=== PATIENT | female | born 1995 | race Caucasian/White ===

== ENCOUNTER 2019-07-19 19:51 | Observation (INO) | payer BC, MEDICAID, SELFPAY ==
[2019-07-19 19:52] VITALS: BP 95/55; PULSE 67; RESP 18; TEMP 36.8; O2SAT 100; BMI 28.1
--- NOTE | 2019-07-19 21:17 | RAD_ITS ---
STUDY: X-RAY - LUMBAR SPINE REASON FOR EXAM: Female, 23 years old. Severe back pain 5 hours ago after bending over. TECHNIQUE: 3 view(s) of the lumbar spine were obtained. COMPARISON: Lumbar spine, July 27, 2015. MRI of the lumbar spine, July 28, 2015. FINDINGS: Normal lumbar lordosis. There is a very minimal levoscoliosis. There is a normal alignment of the vertebrae. There is a congenital abnormality of L5 with spina bifida occulta. There is maintenance of the vertebral axial heights. Normal disc space heights. There is no evidence of acute fracture or loss of vertebral axial height. The soft tissue structures are unremarkable. RAD/Lumbar Spine 2 or 3 Views IMPRESSION: No major interval change when compared to the previous examination Electronically Signed: Jeremy Eckert DO at 23:39 EST Tel [phone], Service support ,
[2019-07-19] MEDS: Orphenadrine 60 MG/2 ML Ampul IM (21:32)
[2019-07-19] MEDS: Ketorolac 60 MG/2 ML Vial IM (21:32)
[2019-07-19] MEDS: HYDROmorphone 1 MG/ML Syringe SC (23:00)
[2019-07-19 23:49] VITALS: BP 110/71; PULSE 68; RESP 15
[2019-07-20] MEDS: HYDROmorphone 1 MG/ML Syringe SC (00:15)
--- NOTE | 2019-07-20 00:24 | ED.DCSUM_ITS ---
- ER Visit Summary Date of Service: 07/20/19 Chief Complaint: Back pain History of Present Illness: The patient is a 23 F with low back pain. The patient bent to pick something up and then stood up. She felt a pop and had severe pain in her lower back. Worse with movement. Denies weakness, numbness, or other associated symptoms. No GI or symptoms or issues. No fever or systemic issues. No other trauma. She had a MRI in 2016 that showed L3-L4 central disc extrusion and a small L4-L5 central bulging disc without displacement of the nerve root sleeve. No history of back surgery. Physical Examination: Afebrile and vital signs unremarkable. Abdomen is soft and nontender. Skin appears unremarkable. She does have lower lumbar spine tenderness to palpation. Straight leg raise negative. Symmetric strength and sensation. No saddle anesthesias. Pulses strong and equal. Test Results: X-ray was unremarkable. No interval change. Emergency Department Course and Treatment: Patient was initially treated with Norflex and Toradol. She had no improvement in her symptoms. X-rays were unremarkable. No interval change. Because she had not improved, she received a dose of Dilaudid. On further reevaluation, she was still having pain, but did appear to be slightly more comfortable objectively. She however was unable to ambulate even with assistance. No other new or worsening symptoms. Given that the patient cannot ambulate and is having continued pain, she received an additional dose of pain medicine. Contacted the hospitalist to admit for further care. Treatment Plan: As above Disposition: Observation [facility] Impression: 1. Intractable back pain This note was generated with [email or web address] dictation software. It may contain incorrect words, spelling, and punctuation that were not noted in review of the chart prior to signing ED Disposition - Plan for ED Patient: Referrals: Care Physician,No Primary [Primary Care Provider] -
--- NOTE | 2019-07-20 00:44 | PCM.HP.STD ---
Problem List (1) Lower back pain Status: Acute History of Present Illness Date of Admission: 07/20/19 Chief Complaint: Low back pain. The patient is a 23 year old F patient with no significant past medical history presented to the emergency room because of low back pain. Patient states that she bent over to pick something from the floor, stood up and she felt a pop in her lower back and started having severe back pain. Pain is in the lower back, middle of the lower back, sharp pain, 10 out of 10 in severity, radiates to both sides of the lower back, aggravated by any type of movement including movement of her upper extremities and lower extremities, no relieving factors and no associated symptoms. She denied any trauma or mechanical fall. She denied numbness or tingling in her legs. She denied stool or urine incontinence. She denied focal leg weakness. She had a history of back pain and back in 2015, she had MRI lumbar spine that revealed, incidental tiny linear syrinx, L3-L4 central disc extrusion, no displacement and also revealed small L4-L5 central disc bulging without displacement. At that time, there was a concern that patient may have Budd-Chiari malformation for which she had thoracic spine MRI and cervical spine MRI. Thoracic spine MRI revealed isolated tiny linear syrinx versus normal ventriculus terminalis. Cervical spine MRI was unremarkable. Today in the emergency department, her vital signs are stable. X-ray of the lumbar spine revealed congenital abnormality of L5 with spina bifida occulta and no major interval change compared to previous examination. This finding was not mentioned on the MRI that was done on July 2015. Patient is being admitted for intractable low back pain for evaluation. 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 Paternal History Items: Diabetes, Renal Disease, - - father is on dialysis. Review of Systems Constitutional: Denies: Anorexia, Chills, Fever, Weakness Eyes: Denies: Blurred vision, Double vision, Drainage HEENT: Denies: Difficulty Hearing, Ear Pain, Eye Pain, Nasal bleeding, Post Nasal Drip, Sore Throat Cardiovascular: Denies: Chest Pain, Chest Pressure, Chest Tightness, Edema, Palpitations, Syncope Respiratory: Denies: Cough, Pleuritic Pain, Shortness of Breath, Sputum production, Wheezing Gastrointestinal: Denies: Abdominal Pain, Constipation, Diarrhea, Nausea, Vomiting Genitourinary: Denies: Dysuria, Frequency Musculoskeletal: Reports: Back Pain. Denies: Arm Pain, Foot Pain Skin: Denies: Dryness, Rash Neurological: Denies: Balance problems, Blurred vision, Double vision, Change in Speech Psychiatric: Denies: Anxiety, Depression Endocrine: Denies: Change in Body Habitus, Polydipsia, Polyuria VTE Information - Inpt Only VTE Present on Admission: No VTE Mechan Device Prophylaxis: None VTE Pharm Prophylaxis ordered?: No - Physical Exam Vitals/I&O's: Vital Signs Temp Pulse Resp BP Pulse Ox 98.2 F 68 15 110/71 100 07/19/19 19:52 07/19/19 23:49 07/19/19 23:49 07/19/19 23:49 07/19/19 19:52 Oxygen Delivery Method Room Air Weight: 180 lb Body Mass Index (BMI) 28.1 General: Alert, Oriented x3, Cooperative, No apparent distress HEENT: Atraumatic, PERRLA, EOMI, Normocephalic Oral: Moist Mucosa, No Gingival or Mucosal Lesions/ Ulcerations Neck: Supple, No JVD, Negative Carotid Bruits, Trachea Midline, Thyroid Normal Size and Texture Lungs: Clear to auscultation, Normal air movement, No rhonchi, No wheeze, No rales Cardiovascular: Regular rate, Regular Rhythm, Normal S1, Normal S2, No murmurs Abdomen: Bowel Sounds Present, Soft, Non Tender, Non-Distended, No Hepato-splenomegaly Extremities: No clubbing, No cyanosis, No edema Skin: No rashes, No breakdown Lymphatic: No Cervical, Supraclavicular, or Inguinal Adenopathy Neurological: Cranial nerves II-XII grossly intact, Motor Exam 5/5 strength throughout, Sensory exam intact to light touch and pain Psych/Mental Status: Normal Affect, Appropriate, Alert and oriented to time, place, person, mood and affect Clinical Impression(s) from Imaging Studies Lumbar Spine X-Ray 07/19/19 21:17 IMPRESSION: No major interval change when compared to the previous examination Electronically Signed: Jeremy Eckert DO at 23:39 EST Tel [phone], Service support , Assessment/Plan All Active Problems Lower back pain (Acute) This is a 23 years old female patient presented to the emergency room because of sudden onset low back pain and she is being admitted for evaluation. #1 intractable low back pain: In context of history of back pain for the past for the last 5 years with occasional acute flareups, had MRIs of her lumbar, thoracic and cervical spine as mentioned above and she was found to have linear syrinx. Today, x-ray of the lumbar spine revealed spina bifida occulta of L5 and it was mentioned that there was no major interval change compared to previous imaging study but on the MRI report that was done on July, did not mention about this spina bifida occulta. Patient has no focal deficit, sensory exam is intact and normal, no motor weakness. No stool or urine incontinence, no perineal anesthesia. No indication to perform blood work. Plan: Admit [facility] floor for observation, ambulate as tolerated, MRI lumbar spine without contrast, IV morphine PRN, OxyIR PRN for pain, gentle IV fluid for hydration, IV antiemetics, Flexeril as needed, PT OT evaluation and treatment. #2 DVT prophylaxis: Low risk patient, no prophylaxis indicated. This note was generated with [employer] dictation software. It may contain incorrect words, spelling, and punctuation that were not noted in checking the note before signing. Code Visit OBSV E&M: 16931 Initial observation care L3
--- NOTE | 2019-07-20 01:09 | MRI_ITS ---
STUDY: MRI LUMBAR SPINE WITHOUT CONTRAST REASON FOR EXAM: Female, 23 years old. back pain, spina bifida occulta on xray not mentioned on prev mri in 2016 TECHNIQUE: Standardized fat and water weighted pulse sequences were obtained in the sagittal and axial planes. COMPARISON: July 28, 2015 FINDINGS: No evidence for acute fracture or subluxation. Spina bifida occulta noted at L5-S1 T12-L1: Normal endplates. Normal disc height, hydration and morphology. Normal bilateral facet joints. Normal central canal and bilateral lateral recesses. Normal bilateral intervertebral neural foramina. Normal lumbar lordosis. There is mild levo scoliosis. Conus medullaris terminates at T12-L1 There is a small central syrinx noted at approximately T12 L1-2: Normal endplates. Normal disc height, hydration and morphology. Normal bilateral facet joints. Normal central canal and bilateral lateral recesses. Normal bilateral intervertebral neural foramina. L2-3: Normal endplates. Normal disc height, hydration and morphology. Normal bilateral facet joints. Normal central canal and bilateral lateral recesses. Normal bilateral intervertebral neural foramina. L3-4: Normal endplates. Narrowed disc space with desiccation of the disc and minor annular bulge. Normal bilateral facet joints. Normal central canal and bilateral lateral recesses. Normal bilateral intervertebral neural foramina. L4-5: Normal endplates. Normal disc height, desiccation and mild annular bulge with small central disc protrusion.. Normal bilateral facet joints. Normal central canal and bilateral lateral recesses. Normal bilateral intervertebral neural foramina. L5-S1: Normal endplates. Normal disc height, hydration and small broad-based left paracentral/posterolateral disc protrusion displacing the descending S1 nerve root on the left. Mild facet arthropathy. Normal central canal. Mild left lateral recess and neuroforaminal stenosis Normal visualized sacral ala. Normal visualized paraspinous soft tissue structures. The disc disease at L3-4 has improved since prior study but has progressed at L5-S1 MRI/Spine Lumbar (Routine) IMPRESSION: Spinal stenosis at L5-S1 secondary to broad-based left paracentral/posterolateral disc protrusion and mild facet arthropathy.. Mild annular bulge with small central disc protrusion at L4-5 without significant spinal stenosis Electronically Signed: Wai Madison MD at 16:33 EST , Service support ,
[2019-07-20 01:14] VITALS: BP 102/64; PULSE 66; RESP 16; TEMP 36.8; O2SAT 99
[2019-07-20 01:16] VITALS: BMI 29.0
[2019-07-20 01:21] VITALS: BMI 29.0
[2019-07-20] MEDS: 0.9% Saline Lock 10 ML Syringe IV (01:46)
[2019-07-20] MEDS: Morphine 2 MG/ML Syringe IV ×2 (01:47→10:19)
[2019-07-20] MEDS: cycloBENZAPRine HCl 10 MG Tablet PO ×2 (01:47→10:17)
[2019-07-20] MEDS: 0.9% Normal Saline 1,000 ML 75 ML IV (01:47)
[2019-07-20] MEDS: oxyCODONE 5 MG Tablet PO ×2 (05:51→17:27)
[2019-07-20 05:55] VITALS: BP 96/60; PULSE 75; RESP 16; TEMP 36.7; O2SAT 99
[2019-07-20 09:20] VITALS: O2SAT 97
[2019-07-20 10:00] VITALS: BP 98/55; PULSE 69; RESP 16; TEMP 36.7; O2SAT 94
[2019-07-20] MEDS: dexAMETHasone 4 MG/ML Vial IV (14:22)
[2019-07-20 14:24] VITALS: BP 107/63; PULSE 81; RESP 16; TEMP 36.4; O2SAT 95
--- NOTE | 2019-07-20 16:58 | PCM.DC ---
You will use the following diet at home:: No restrictions Your food should be the consistency of: Regular Your liquids should be the consistency of: Regular/Thin Return to work on:: 07/21/19 Weight Bearing Status: Weight bearing as tolerated Lifting Restrictions: not more than 10 pounds for the next week Allergies/Adverse Reactions: Allergies cetirizine HCl [From [facility]] Allergy (Verified 07/19/19 19:52) Unknown Medications to take at Discharge Levonorgestrel [Mirena] 1 each IY X1 02/20/16 Acetaminophen [Tylenol Tablet] 650 mg PO Q6H PRN PRN tablet 07/20/19 Oxycodone [Oxyir] 5 mg PO Q4H PRN PRN 5 Days #20 tablet 07/20/19 Prednisone 20 mg PO UD #12 tab 07/20/19 cycloBENZAPRine HCl [Flexeril] 5 mg PO TID PRN PRN #20 tab 07/20/19 The following prescriptions were given: cycloBENZAPRine HCl [Flexeril] 5 mg PO TID PRN PRN #20 tab PRN Reason: Muscle spasm, back pain Transmission Status: Pending to [id number] Oxycodone [Oxyir] 5 mg PO Q4H PRN PRN 5 Days #20 tablet PRN Reason: Pain Score 4-5/10 Transmission Status: Sent to [id number] Prednisone 20 mg PO UD #12 tab Transmission Status: Pending to [id number] Primary Care Physician: Care Physician,No Primary [Primary Care Provider] - Please follow up with your Primary Care Physician in: in 2 weeks Test Results: Test results from this visit will be discussed in further detail at your follow-up appointment, if applicable.
[2019-07-20] MEDS: MethylPREDNISolone Acetate 80 MG/ML Vial IM (17:23)
--- NOTE | 2019-07-20 17:43 | DS.PCM_ITS ---
Discharge Date and Diagnosis Date of Admission: 07/20/19 Date of Discharge: 07/20/19 - Primary Discharge Diagnosis #1 lower lumbar strain #2 L5-S1 disc rupture-timeframe unknown #3 degenerative disc disease of the lumbar spine Hospital Course and Treatment Operations: None Procedures: None Summary of Care Provided: The patient is a 23 year old F was seen in the emergency room at [facility] with a chief complaint of low back pain, patient stated that she went to pick something up and stood up and felt a pop in her back and had severe lower back pain. Patient denies any pain in her buttocks, she denies any pain down the back of her legs, she denies any focal weakness. Patient was initially treated with Norflex and Toradol in the emergency room but had no improvement in her symptoms, she received a dose of narcotics and x-rays were obtained of the lower back which were unremarkable. [facility] she had an MRI of her lower back performed which showed an L5-S1 disc rupture with some left nerve root [id number] had no symptoms in concurrence with these findings. This examiner felt that the patient had a low back strain, she also has underlying degenerative disc disease of her lumbar spine. I placed the patient on IV Decadron, patient wished to be discharged home because she wanted to go to work in the morning and I put a lifting restriction at her workplace for the next week. I also instructed the patient to follow-up with a PCP regarding further treatment of her back problems, this would include possible epidural injections, referral to a back specialist, or physical therapy. On 07/20/2019, patient was seen and examined: On examination she appeared in good health and spirits. Vital signs as documented. Skin warm and dry and without overt rashes. Neck without JVD. Lungs clear. Heart exam notable for regular rhythm, normal sounds and absence of murmurs, rubs or gallops. Abdomen unremarkable and without evidence of organomegaly, masses, or abdominal aortic enlargement. Extremities nonedematous. Neuro: Cranial nerves II through XII are grossly intact, no focal motor deficits were noted, sensation to light touch and pinprick is intact. Psych: Patient is alert and oriented x3, she does not appear anxious or depressed On 07/20/2019, patient was seen and examined felt to be in stable condition for discharge home. - Physical Exam Vitals/I&O's: Vital Signs Temp Pulse Resp BP Pulse Ox 97.5 F L 81 16 107/63 95 07/20/19 14:24 07/20/19 14:24 07/20/19 14:24 07/20/19 14:24 07/20/19 14:24 Oxygen Delivery Method Room Air Weight: 83.9 kg Body Mass Index (BMI) 29.0 Intake and Output for Last 24 Hours 07/18/19 07/19/19 07/20/19 23:59 23:59 23:59 Intake Total 1999 Balance 1999 Current Medications Acetaminophen (Tylenol) 650 mg PO Q6H PRN PRN PRN Reason: Pain Score 1-3/Temp > 100.7 F Cyclobenzaprine HCl (Flexeril) 10 mg PO TID PRN PRN PRN Reason: Muscle spasm, back pain Last Admin: 07/20/19 10:17 Dose: 10 mg Documented by: Morphine Sulfate () 1 - 2 mg IV Q4H PRN PRN PRN Reason: Pain Score 6-10/10 Last Admin: 07/20/19 10:19 Dose: 2 mg Documented by: Ondansetron HCl (Zofran) 4 mg IV Q8H PRN PRN PRN Reason: NAUSEA/VOMITING Oxycodone HCl (Oxyir) 5 mg PO Q4H PRN PRN PRN Reason: Pain Score 4-5/10 Last Admin: 07/20/19 17:27 Dose: 5 mg Documented by: Senna/Docusate Sodium (Senokot-S, Gale-Colace) 2 tablet PO BID PRN PRN PRN Reason: Constipation Sodium Chloride () 10 - 40 ml IV UD PRN PRN Reason: SALINE FLUSH Last Admin: 07/20/19 01:46 Dose: 10 ml Documented by: Return to work on:: 07/21/19 Weight Bearing Status: Weight bearing as tolerated Home Medications: Medications to take at Discharge Levonorgestrel [Mirena] 1 each IY X1 02/20/16 Acetaminophen [Tylenol Tablet] 650 mg PO Q6H PRN PRN tab 07/20/19 Oxycodone [Oxyir] 5 mg PO Q4H PRN PRN 5 Days #20 tab 07/20/19 Prednisone 20 mg PO UD #12 tab 07/20/19 cycloBENZAPRine HCl [Flexeril] 5 mg PO TID PRN PRN #20 tab 07/20/19 Following Prescrptions Were Given to Patient: cycloBENZAPRine HCl [Flexeril] 5 mg PO TID PRN PRN #20 tab PRN Reason: Muscle spasm, back pain Transmission Status: Received by [facility] Oxycodone [Oxyir] 5 mg PO Q4H PRN PRN 5 Days #20 tab PRN Reason: Pain Score 4-5/10 Transmission Status: Received by [facility] Prednisone 20 mg PO UD #12 tab Transmission Status: Received by [facility] Primary Care Physician: Care Physician,No Primary [Primary Care Provider] - Please follow up with your Primary Care Physician in: in 2 weeks Disposition: Home Minutes spent on discharge:: 30 Patient Condition:: Stable Medical Necessity - Tobacco Use Smoking Status: Current every day smoker Tobacco Use: Vapor Meaningful Use Info Meaningful Use Diagnoses (Choose all that apply): None applicable Code Visit OBSV E&M: 31936 Observ/hosp same date L3
== END 2019-07-20 18:10 | disposition home or self-care (01) ==
LOC: ED 21:09 → MS3 07-20 00:37
PROVIDERS: Admitting Provider Hospitalist; Emergency Provider Emergency Medicine; Visit Provider Internal Medicine
DX: S39.012A Strain of muscle, fascia and tendon of lower back, initial encounter (principal); X50.9XXA Other and unspecified overexertion or strenuous movements or postures, initial encounter; Y93.89 Activity, other specified; Y92.9 Unspecified place or not applicable; M51.36 Other intervertebral disc degeneration, lumbar region; Z23 Encounter for immunization; F17.290 Nicotine dependence, other tobacco product, uncomplicated
CPT/HCPCS: 72100; 72148; 96361; 96372; 96374; 96375; 96376; 97162; 97165; 99218; 99283; J7030; 90686; A4216; G0378

== ENCOUNTER 2019-12-13 16:29 | Emergency (ER) | payer MEDICAID, SELFPAY ==
[2019-12-13 16:30] VITALS: BP 116/72; PULSE 89; RESP 17; TEMP 37.3; O2SAT 96; BMI 26.3
--- NOTE | 2019-12-13 16:48 | EKG12_ITS ---
Test Reason : CP SOB Blood Pressure : / mmHG Vent. Rate : 107 BPM Atrial Rate : 107 BPM P-R Int : 122 ms QRS Dur : 128 ms QT Int : 356 ms P-R-T Axes : 073 079 048 degrees QTc Int : 475 ms Sinus tachycardia Right bundle branch block Abnormal ECG Confirmed by PRANAV FRAGOSO MD ([id number]), newspaper managing editor ANTONELLA NICHOLE ([id number]) on 12/16/2019 3:06:38 PM Referred By: BB Confirmed By:PRANAV FRAGOSO MD
--- NOTE | 2019-12-13 17:25 | RAD_ITS ---
STUDY: X-RAY CHEST REASON FOR EXAM: Female, 24 years old. CHEST TIGHTNESS X 1 MONTH; COUGH X3 DAYS. TECHNIQUE: Single AP portable view of the chest. COMPARISON: 05/29/2014. FINDINGS: The lungs are clear and expanded. There is no demonstrated pleural abnormality. Normal size heart. Normal mediastinum and giulia. Normal visualized pulmonary arteries. Normal visualized aortic arch and descending thoracic aorta. Normal visualized thoracic spine. Normal visualized ribs, clavicles, and shoulders. There is no demonstrated abnormality of the visualized soft tissue structures of the upper abdomen. RAD/Chest 1 View (Portable) IMPRESSION: Normal x-ray examination of the chest. Electronically Signed: Solo Hobson MD at 17:48 EDT , Service support ,
[2019-12-13 17:27] LABS: Absolute Lymphocyte Count 2.69 X10^3/uL (0.83-4.51); Absolute Neutrophil Count 3.4 X10^3/uL (2.0-7.7); Basophil# 0.02 X10^3/uL; Basophil% 0.3 % (0-1); Eosinophil# 0.18 X10^3/uL; Eosinophils% 2.7 % (0-5); Hematocrit 40.2 % (37-47); Hemoglobin 14.2 g/dL (12.0-15.0); Lymphocyte # 2.69 X10^3/ul (4.0); Lymphocyte % 40.1 % (19-41); Mean Corp Hgb Conc 35.3 g/dL (32-36); Mean Corpuscular Hgb 31.6 pg (27.0-32.0); Mean Corpuscular Volume 89.3 fL (81-99); Monocyte# 0.42 X10^3/uL; Monocyte% 6.3 % (0-10); NRBC Flagged by Analyzer 0 % (0-5); Neutrophil # 3.38 X10^3/uL (2.7-7.7); Neutrophil % 50.5 % (47-70); Platelet Count 243 K/mm3 (150-450); RBC Distribution Width CV 11.9 % (11.6-14.6); RBC Distribution Width SD 38.1 fl (35.1-43.9); White Blood Count 6.7 K/mm3 (4.4-11.0)
[2019-12-13 17:42] LABS: Anion Gap 5 (5-15); BUN 8 mg/dL (7-18); BUN/Creat Ratio 12.4 RATIO (10-20); Calcium,Total 9.3 mg/dL (8.5-10.1); Chloride 109 mmol/L (98-107); Creatinine, Serum 0.65 mg/dL (0.55-1.02); EST Glomerular Filtration Rate 118 mL/min (>60); Est Glom Filt Rate - Afr Amer 142 mL/min (>60); Estimated Creatinine Clearance 127.54 ml/min; Glucose 87 mg/dL (74-106); Potassium 3.7 mmol/L (3.5-5.1); Sodium Level 141 mmol/L (136-145)
--- NOTE | 2019-12-13 18:17 | ED.VIS.GEN ---
History of Present Illness Chief Complaint: Cough Informant: Patient Narrative: Patient states that for the past month she has felt short of breath. Now for the past couple days she has had a cough. Nonproductive. No fevers. She states her mom was swabbed for COVID and was negative. She states she called her doctor wanting something for the cough and was told she needed to come to emergency. Past Medical History - Allergies and Home Meds Allergies/Adverse Reactions: Allergies cetirizine HCl [From [facility]] Allergy (Verified 07/19/19 19:52) Unknown Primary Care Physician: AMAYA MORENO [Other] Surgical History: no surgical history, - Smoking Status: Current every day smoker - Family History Maternal Family History: Reports: Cancer, - - multiple sclerois. Paternal Family History: Reports: Diabetes, Renal Disease, - - father is on dialysis. Review of Systems General: Denies: Chills, Fever, Sweats Eyes: Denies: Visual changes - bilaterally, Diplopia ENT: Denies: Rhinorrhea, Sore throat Cardiovascular: Reports: Chest pain - Chest tightness. Denies: Palpitations Respiratory: Reports: Dyspnea, Cough. Denies: Dyspnea on exertion Gastrointestinal: Denies: Abdominal pain, Nausea, Vomiting, Diarrhea, Melena, Hematochezia Genitourinary: Denies: Dysuria, Hematuria, Frequency Musculoskeletal: Denies: Back pain, Extremity Pain Skin: Denies: Rash, Wounds Neurological: Denies: Headache, Weakness, Numbness Physical Exam Vital Signs/Narrative: Vital Signs Temp Pulse Resp BP Pulse Ox 12/13/19 16:30 99.2 F H 89 17 116/72 96 Inital Vital Signs reviewed: Yes General: Well nourished, Well developed, No Acute Distress Head: Normocephalic, Atraumatic Eyes: Perrl, EOMI ENT: Moist mucous membranes, No rhinorrhea Neck: Supple, Nontender Cardiovascular: Regular rate, Regular rhythm, No murmurs Respiratory: No distress, CTA bilaterally, Chest nontender Abdomen: Soft, Nontender, Nondistended, Normal bowel sounds Back: Nontender, Normal Inspection Extremities: Nontender, No edema Skin: Normal color, No rash Neurological: Alert, Oriented x3, Cranial nerves II-XII grossly intact, Normal Strength, Normal Sensation Psychological: Normal affect, Normal Mood Diagnostic/Tx/Re-eval Clinical Impression(s) from Imaging Studies Chest X-Ray 12/13/19 17:25 IMPRESSION: Normal x-ray examination of the chest. Electronically Signed: Solo Hobson MD at 17:48 EDT , Service support , Laboratory Last Values WBC 6.7 K/mm3 (4.4-11.0) 12/13/19 17:13 RBC 4.50 M/mm3 (4.2-5.4) 12/13/19 17:13 Hgb 14.2 g/dL (12.0-15.0) 12/13/19 17:13 Hct 40.2 % (37-47) 12/13/19 17:13 MCV 89.3 fL (81-99) 12/13/19 17:13 MCH 31.6 pg (27.0-32.0) 12/13/19 17:13 MCHC 35.3 g/dL (32-36) 12/13/19 17:13 RDW Std Deviation 38.1 fl (35.1-43.9) 12/13/19 17:13 RDW Coeff of Clarence 11.9 % (11.6-14.6) 12/13/19 17:13 Plt Count 243 K/mm3 (150-450) 12/13/19 17:13 MPV 10.0 fl (6.2-12.0) 12/13/19 17:13 Immature Gran % (Auto) 0.100 % (0.0-0.9) 12/13/19 17:13 Neut % (Auto) 50.5 % (47-70) 12/13/19 17:13 Lymph % (Auto) 40.1 % (19-41) 12/13/19 17:13 [place] % (Auto) 6.3 % (0-10) 12/13/19 17:13 Eos % (Auto) 2.7 % (0-5) 12/13/19 17:13 Baso % (Auto) 0.3 % (0-1) 12/13/19 17:13 Absolute Neuts (auto) 3.4 X10^3/uL (2.0-7.7) 12/13/19 17:13 Absolute Lymphs (auto) 2.69 X10^3/uL (0.83-4.51) 12/13/19 17:13 Nucleated RBC % 0 % (0-5) 12/13/19 17:13 Sodium 141 mmol/L (136-145) 12/13/19 17:13 Potassium 3.7 mmol/L (3.5-5.1) 12/13/19 17:13 Chloride 109 mmol/L (98-107) H 12/13/19 17:13 Carbon Dioxide 27.0 mmol/L (21.0-32.0) 12/13/19 17:13 Anion Gap 5 (5-15) 12/13/19 17:13 BUN 8 mg/dL (7-18) 12/13/19 17:13 Creatinine 0.65 mg/dL (0.55-1.02) 12/13/19 17:13 Estim Creat Clear Calc 127.54 ml/min 12/13/19 17:13 Est GFR (MDRD) Af Amer 142 mL/min (>60) 12/13/19 17:13 Est GFR (MDRD) Non-Af 118 mL/min (>60) 12/13/19 17:13 BUN/Creatinine Ratio 12.4 RATIO (10-20) 12/13/19 17:13 Glucose 87 mg/dL (74-106) 12/13/19 17:13 Calcium 9.3 mg/dL (8.5-10.1) 12/13/19 17:13 Troponin I < 0.015 ng/mL (<0.045) 12/13/19 17:13 - EKG Initial EKG Interpretation: Sinus Rhythm - EKG demonstrates a sinus tachycardia rate of 107 with right bundle branch block. - Medical Decision Making Chest x-ray negative. CBC BMP and troponin negative. Patient's heart rate has remained in the high 90s to low 100 range. Her EKG is a sinus tachycardia with a right bundle branch block. Wanted to perform a CT Leanne of her chest and the patient declined stating she just would like something for her cough. I think is low risk to be COVID she is had no fever the shortness of breath is been over 1 month and she has a normal chest x-ray. ED Disposition - Plan for ED Patient: Disposition: Home or Assisted Living Diagnosis: Dyspnea, Cough Instructions: ED Dyspnea Prescriptions: Benzonatate [Tessalon Perle] 100 mg PO TID PRN PRN #20 cap PRN Reason: cough Transmission Status: Pending to [facility] Referrals: AMAYA MORENO [Other] - 1 Week if not improving
[2019-12-13 19:15] VITALS: BP 118/81; PULSE 101; RESP 16; O2SAT 96
== END 2019-12-13 19:17 | disposition home or self-care (01) ==
PROVIDERS: Emergency Provider Emergency Medicine
DX: R05 Cough (principal); R06.00 Dyspnea, unspecified; R07.9 Chest pain, unspecified; F17.210 Nicotine dependence, cigarettes, uncomplicated
CPT/HCPCS: 71045; 80048; 84484; 85025; 93005; 99284

== ENCOUNTER 2020-03-09 16:35 | Observation (INO) | payer MEDICAID, SELFPAY ==
[2020-03-09 16:37] VITALS: BP 114/74; PULSE 94; RESP 16; TEMP 36.1; O2SAT 97; BMI 25.2
--- NOTE | 2020-03-09 17:11 | ED.VIS.BACK ---
History of Present Illness Chief Complaint: Back Informant: Patient Onset: Hours - 1 Context: Sudden Onset Injury: Twisting Timing: Continuous Quality: Aching, - - searing Location: Lumbar Current Severity: Moderate Maximum Severity: Severe Worsened by: improves with: Movement, Ambulation Relieved by: Remaining Still Associated Symptoms: - - none Narrative: Patient states she simply was turning to move a different way, she did not do any type of exertional movement or heavy lifting, but felt a searing pain in her low back, it did not radiate down her legs or into them, but moving her legs makes the pain severe, she dropped to the ground and had trouble even standing or moving because of the severe pain in her low back that I gave her. She denies any numbness or weakness, just limited by pain. No bowel or bladder incontinence or dysfunction but she has not tried to urinate since this happened. She was here in June of last year for a similar pain that she ended up being admitted for and having an MRI, it showed an L5-S1 disc bulge that appeared to be pinching on a nerve but no cauda equina syndrome. She was supposed to follow-up with a specialist to [facility], she states that she tried multiple times, no one ended up calling her back and then she got busy with school and ended up forgetting about it. She deals with pain in her back from time to time but nothing nearly as severe as this is, which is the worst that it has been since June. Prior similar symptoms: Yes, With Prior Back Pain Past Medical History - Allergies and Home Meds Allergies/Adverse Reactions: Allergies cetirizine [From [facility]] Allergy (Verified 03/09/20 16:37) NEEDS FOLLOW-UP HYPED UP Primary Care Physician: NOT,DEFINED [NON-STAFF] - Past Medical History: None Surgical History: no surgical history Smoking Status: Current every day smoker - Family History Maternal Family History: Reports: Cancer, - - multiple sclerois. Paternal Family History: Reports: Diabetes, Renal Disease, - - father is on dialysis. Review of Systems General: Denies: Chills, Fever, Sweats Eyes: Denies: Visual changes - bilaterally, Diplopia ENT: Denies: Rhinorrhea, Sore throat Cardiovascular: Denies: Chest pain, Palpitations Respiratory: Denies: Dyspnea, Cough, Dyspnea on exertion Gastrointestinal: Denies: Abdominal pain, Nausea, Vomiting, Diarrhea, Melena, Hematochezia Genitourinary: Reports: - - No bowel or bladder dysfunction. Denies: Dysuria, Hematuria, Frequency Musculoskeletal: Reports: Back pain. Denies: Swelling, Extremity Pain Skin: Denies: Rash, Wounds Neurological: Denies: Headache, Weakness, Parasthesia, Numbness Physical Exam Vital Signs/Narrative: Vital Signs Temp Pulse Resp BP Pulse Ox 03/09/20 16:37 97 F L 94 16 114/74 97 Inital Vital Signs reviewed: Yes General: Well nourished, Well developed, - - No acute distress Head: Normocephalic, Atraumatic Eyes: Perrl, EOMI ENT: Moist mucous membranes, No rhinorrhea Neck: Supple, Nontender Respiratory: No distress Abdomen: Soft, Nontender, Normal bowel sounds. Negative for: Nondistended Back: Negative SLR - Right - Increased back pain only, Negative SLR - Left - Increased back pain only, not as bad as the right side, - - Limited evaluation, patient does not want to move on initial evaluation to allow examination of her back Extremeties: Nontender, No edema, Strong Pulses Skin: Normal color, No rash, No Trauma Neuro: Alert, Oriented, Normal Strength, Normal Sensation, Normal DTR, Normal Reflexes - With downgoing toes bilaterally and no clonus. Psychological: Normal affect, Normal Mood Diagnostic/Tx/Re-eval Clinical Impression(s) from Imaging Studies Lumbar Spine X-Ray 03/09/20 18:21 IMPRESSION: No acute osseous injury is evident. If there is further clinical concern for a radiographically occult spinal fracture, consider CT correlation if possible. Electronically Signed: Damaso Lamas MD at 18:45 EDT Tel , Service support , - Medical Decision Making Initially ordered her morphine, Norflex, Toradol, but she told nursing that she is an addict who is in recovery. Therefore I avoided the morphine, but she was no better after the initial medication so then she was given morphine 10 mg IM. She tolerated this well, on reexamination she is lying comfortably using her laptop. She says she feels much better now that she is lying here not in pain, but she has not gotten up yet and is concerned that tomorrow when she has to go to work and be on her feet that she will have issues. She states that she has sponsors, does not wish to become an addict again, however wishes to have something to use in case she has pain. She is asking for something to use at home and her plans are to give the filled bottle to her mother to manage it for her, and she will only use it at night when she is not at work. She called her mother and discussed this with her. I am okay with a short prescription for Lincoln in addition to Naprosyn and Flexeril, there is no sign or symptom of cauda equina syndrome at this time. Difficult to say whether her pain was related to a disc or simply muscular back pain. We discussed reasons to return. I did review her OARRS report, which shows no recent narcotic prescriptions. ED Disposition - Plan for ED Patient: Disposition: Home or Assisted Living Diagnosis: Acute low back pain Instructions: ED Back Pain Acute or Chronic Prescriptions: cycloBENZAPRine HCl [Flexeril] 10 mg PO TID PRN #20 tab PRN Reason: Muscle Spasm Transmission Status: Pending to [facility] Naproxen [Naprosyn] 500 mg PO BID PRN #20 tab Transmission Status: Pending to [facility] Hydrocodone Bitart/Apap 5-325 [Lincoln 5MG-325MG] 1 tablet PO Q4H PRN PRN 2 Days #10 tablet PRN Reason: Pain Transmission Status: Sent to [facility] Referrals: Doctor,Your [STAFF PHYSICIAN] - 1 Week if not improving
[2020-03-09] MEDS: Orphenadrine 60 MG/2 ML Ampul IM (17:50)
[2020-03-09] MEDS: Ketorolac 60 MG/2 ML Vial IM (17:52)
--- NOTE | 2020-03-09 17:58 | ED.RN ---
held adrianna per dr porter
--- NOTE | 2020-03-09 18:21 | RAD_ITS ---
STUDY: X-RAY - LUMBAR SPINE REASON FOR EXAM: Female, 24 years old. SEVERE BACK PAIN AFTER TWISTING TODAY. PATIENT HAS CHRONIC BACK PAIN. TECHNIQUE: 3 view(s) of the lumbar spine were obtained. COMPARISON: 07/19/2019 FINDINGS: Normal lumbar lordosis. There is no substantial scoliosis. There is a normal alignment of the vertebrae. Normal vertebral bodies and endplates. Normal disc space heights. IUD. Stable 5 mm right-sided calcification could be related to a phlebolith or a renal stone. RAD/Lumbar Spine 2 or 3 Views IMPRESSION: No acute osseous injury is evident. If there is further clinical concern for a radiographically occult spinal fracture, consider CT correlation if possible. Electronically Signed: Damaso Lamas MD at 18:45 EDT Tel , Service support ,
[2020-03-09] MEDS: morphine 10 MG/ML Syringe IM (18:59)
--- NOTE | 2020-03-09 20:44 | HP.PCM_ITS ---
Problem List (1) Acute low back pain Status: Acute (2) Lower back pain Status: Acute History of Present Illness Date of Admission: 03/09/20 Chief Complaint: back pain The patient is a 24 year old F with a significant history of depression; anxiety; ADHD; substance use disorder; and tobacco abuse who presented with excruciating lower back pain that started while she was walking. Patient said that she might have twisted her back slightly. She describes her pain as sharp. The pain aggravates with movement and improved with lying down and not moving. At the emergency department patient was medicated and the plan was to send patient home. However because there was difficulty from getting patient from the wheelchair into a car a decision was made to observe patient at the hospital. Reportedly 5 years ago she had same excruciating lower back pain. In June 2019 she also had an episode of excruciating back pain and MRI showed bulging of disc. Patient saw her PCP and the plan was to refer her to a specialist of the back. However the referral could not be accomplished Patient acknowledged that she has a history of substance use disorder: Alcohol; methamphetamine; heroin; crack and other substances. She has been clean from substance abuse for about 2 years. She has a sponsor for her substance abuse and do not wish to go back to substance use disorder. Past Medical History Medical History: Medical History (Last Updated 03/09/20 @ 21:[address] 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 Paternal History Items: Diabetes, Renal Disease, - - father is on dialysis. Review of Systems Constitutional: Denies: Chills, Fever, Weight Change HEENT: Denies: Head Aches, Sinus Congestion, Sinus Drainage Cardiovascular: Denies: Chest Pain, Palpitations Respiratory: Denies: Cough, Shortness of breath at rest, Sputum production Gastrointestinal: Denies: Abdominal Pain, Nausea, Vomiting Genitourinary: Denies: Dysuria Musculoskeletal: Reports: Back Pain. Denies: Shoulder Pain Skin: Denies: Rash, Wounds Neurological: Denies: Numbness, Tingling, Focal weakness Psychiatric: Denies: Anxiety, Depression, Homicidal Ideations, Suicidal Ideations Hematologic/ Lymphatic: Denies: Easy Bruising, Easy Bleeding VTE Information - Inpt Only VTE Present on Admission: No VTE Mechan Device Prophylaxis: SCD's VTE Pharm Prophylaxis ordered?: No Patient Problems: Active and Suspected Problems Acute low back pain (Acute) - Physical Exam Vitals/I&O's: Vital Signs Temp Pulse Resp BP Pulse Ox 97 F L 94 16 114/74 97 03/09/20 16:37 03/09/20 16:37 03/09/20 16:37 03/09/20 16:37 03/09/20 16:37 Weight: 73.028 kg Body Mass Index (BMI) 25.2 General: Alert, Oriented x3, Cooperative HEENT: Atraumatic, PERRLA, EOMI, Normocephalic Neck: Supple, No JVD, Negative Carotid Bruits Lungs: Clear to auscultation, Normal air movement, No rhonchi, No wheeze, No rales Cardiovascular: Regular rate, Normal S1, Normal S2, No murmurs Abdomen: Bowel Sounds Present, Soft, Non Tender Extremities: No edema, Capillary Refill Less than 3 Seconds Skin: No rashes, No breakdown Musculoskeletal: - - Patient was observed in sitting position in a wheelchair. Straight line test positive bilaterally. Neurological: Cranial nerves II-XII grossly intact Psych/Mental Status: Normal Affect, Appropriate Assessment/Plan All Active Problems Acute low back pain (Acute) Lower back pain (Acute) The patient is a 24 year old F with a significant history of depression; anxiety; ADHD; substance use disorder; and tobacco abuse who presented with excruciating lower back pain that started while she was walking. Acute low back pain Received a muscle relaxant and narcotic at emergency department. Will order dexamethasone 20 mg IV now and then 4 mg p.o. every 8 hours. Flexeril 3 times daily ordered. Oxycodone PRN ordered. Tylenol PRN ordered Bowel protocol and antiemetics prn ordered MRI of June 2019 was reviewed. It showed spinal stenosis at L5-S1 secondary to broad-based left paracentral/posterolateral disc protrusion and mild facet arthropathy. Also mild annular bulge with small central disc protrusion at L4- L5 without significant spinal stenosis. Repeat MRI of lumbar area. PT and OT to work with patient. ADHD Dextroamphetamine/amphetamine continued. Tobacco abuse Counseled. DVT prophylaxis SCD.
[2020-03-09 21:13] VITALS: BP 107/74; PULSE 81; RESP 14; TEMP 36.8
--- NOTE | 2020-03-09 21:14 | ED.RN ---
MD AWARE THAT PT IS BE UNABLE TO PROVIDE AN URINE SAMPLE, NO NEW ORDERS.
--- NOTE | 2020-03-09 21:54 | MRI_ITS ---
STUDY: MRI LUMBAR SPINE WITHOUT CONTRAST REASON FOR EXAM: Female, 24 years old. back pain, DOES NOT RADIATE INTO LEGS, NO TRAUMA TECHNIQUE: Standardized fat and water weighted pulse sequences were obtained in the sagittal and axial planes. COMPARISON: None FINDINGS: T12-L1: Normal endplates. Normal disc height, hydration and morphology. Normal bilateral facet joints. Normal central canal and bilateral lateral recesses. Normal bilateral intervertebral neural foramina. Normal lumbar lordosis. There is no substantial scoliosis. Conus medullaris that terminates at the L1 level. There is a small increased T2 signal lesion in the conus measures 4 mm in greatest diameter may represent a syrinx cavity. It is stable since 2016. L1-2: Normal endplates. Normal disc height, hydration and morphology. Normal bilateral facet joints. Normal central canal and bilateral lateral recesses. Normal bilateral intervertebral neural foramina. L2-3: Normal endplates. Normal disc height, hydration and morphology. Normal bilateral facet joints. Normal central canal and bilateral lateral recesses. Normal bilateral intervertebral neural foramina. L3-4: Endplate spondylosis. Decreased disc height and small circumferential disc bulge. Degenerative changes of the bilateral facet joints. Mild narrowing of the central canal and bilateral intervertebral neural foramina. L4-5: There is moderate size midline and left para midline disc herniation impinging on the left L5 nerve root. Degenerative changes of the bilateral facet joints. Mild narrowing of the central canal and bilateral intervertebral neural foramina. L5-S1: There is moderate size midline and left para midline disc herniation impinging on the left S1 nerve root. Degenerative changes of the bilateral facet joints. Mild narrowing of the central canal and bilateral intervertebral neural foramina. Normal visualized sacral ala. Normal visualized paraspinous soft tissue structures. MRI/Spine Lumbar (Routine) IMPRESSION: There is moderate size midline and left para midline disc herniation at L4-5 and L5-S1 impinging on the left L5 and left S1 nerve roots respectively. Electronically Signed: Laureen Viveros, at 11:09 EDT Tel , Service support ,
[2020-03-09 22:00] VITALS: BMI 25.8
[2020-03-09 22:16] VITALS: BP 112/64; PULSE 78; RESP 16; TEMP 37.1; O2SAT 100
[2020-03-09] MEDS: 0.9% Saline Lock 10 ML Syringe IV (23:33)
[2020-03-10 00:30] VITALS: PULSE 78; RESP 16; O2SAT 100
[2020-03-10] MEDS: dexAMETHasone 4 MG Tablet PO ×4 (00:36→20:37)
[2020-03-10] MEDS: Acetaminophen 325 MG Tablet 650 MG PO ×3 (00:41→16:13)
[2020-03-10] MEDS: oxyCODONE 5 MG Tablet 10 MG PO ×5 (00:41→20:38)
[2020-03-10 04:37] VITALS: BP 102/60; PULSE 73; RESP 16; TEMP 36.6; O2SAT 97
[2020-03-10 06:18] LABS: Absolute Lymphocyte Count 1.45 X10^3/uL (0.83-4.51); Absolute Neutrophil Count 9.2 X10^3/uL (2.0-7.7); Basophil# 0.03 X10^3/uL; Basophil% 0.3 % (0-1); Eosinophil# 0.09 X10^3/uL; Eosinophils% 0.8 % (0-5); Hematocrit 39.5 % (37-47); Hemoglobin 13.4 g/dL (12.0-15.0); Lymphocyte # 1.45 X10^3/ul (4.0); Lymphocyte % 13.1 % (19-41); Mean Corp Hgb Conc 33.9 g/dL (32-36); Mean Corpuscular Hgb 30.9 pg (27.0-32.0); Mean Corpuscular Volume 91.2 fL (81-99); Mean Platelet Vol. 9.9 fl (6.2-12.0); Monocyte# 0.25 X10^3/uL; Monocyte% 2.3 % (0-10); NRBC Flagged by Analyzer 0 % (0-5); Neutrophil % 83.2 % (47-70); Platelet Count 267 K/mm3 (150-450); RBC Distribution Width CV 11.5 % (11.6-14.6); RBC Distribution Width SD 38.3 fl (35.1-43.9); Red Blood Count 4.33 M/mm3 (4.2-5.4); White Blood Count 11.1 K/mm3 (4.4-11.0)
[2020-03-10 06:40] LABS: Anion Gap 4 (5-15); BUN 10 mg/dL (7-18); BUN/Creat Ratio 13.8 RATIO (10-20); Chloride 112 mmol/L (98-107); Creatinine, Serum 0.72 mg/dL (0.55-1.02); EST Glomerular Filtration Rate 103 mL/min (>60); Est Glom Filt Rate - Afr Amer 125 mL/min (>60); Estimated Creatinine Clearance 115.14 ml/min; Glucose 114 mg/dL (74-106); Potassium 4.2 mmol/L (3.5-5.1); Sodium Level 140 mmol/L (136-145)
[2020-03-10 07:44] VITALS: BP 111/61; PULSE 74; RESP 16; TEMP 36.5; O2SAT 97
[2020-03-10] MEDS: cycloBENZAPRine HCl 10 MG Tablet PO ×3 (07:47→20:37)
[2020-03-10] MEDS: predniSONE 20 MG Tablet 60 MG PO (13:16)
[2020-03-10 13:21] VITALS: BP 116/67; PULSE 89; RESP 16; TEMP 36.9; O2SAT 97
--- NOTE | 2020-03-10 13:51 | PCM.PN.HOSP ---
Patient Problems: Active and Suspected Problems (Last Updated 03/09/20 @ 21:[address] Baljeet Martinez MD) Acute low back pain (Acute) Subjective: Still with back pain. Limited ability to move legs due to back pain. Denies paresthesia, bowel or bladder incontinence. Vitals/I&O's: Vital Signs Temp Pulse Resp BP Pulse Ox 36.9 C 89 16 116/67 97 03/10/20 13:21 03/10/20 13:21 03/10/20 13:21 03/10/20 13:21 03/10/20 13:21 Oxygen Delivery Method Room Air Weight: 74.8 kg Body Mass Index (BMI) 25.8 Intake and Output for Last 24 Hours 03/08/20 03/09/20 03/10/20 23:59 23:59 23:59 Intake Total 1100 / 1100 Output Total 400 / 400 Balance 700 / 700 General: Alert, No apparent distress HEENT: Atraumatic, Normocephalic Extremities: No edema, No Calf Tenderness Neurological: Motor Exam 5/5 strength throughout, Sensory exam intact to light touch and pain, - - no clonus Psych/Mental Status: Appropriate, Anxious Laboratory Results 03/10/20 05:55: WBC 11.1 H, RBC 4.33, Hgb 13.4, Hct 39.5, MCV 91.2, MCH 30.9, MCHC 33.9, RDW Std Deviation 38.3, RDW Coeff of Clarence 11.5 L, Plt Count 267, MPV 9.9, Immature Gran % (Auto) 0.300, Neut % (Auto) 83.2 H, Lymph % (Auto) 13.1 L, [place] % (Auto) 2.3, Eos % (Auto) 0.8, Baso % (Auto) 0.3, Absolute Neuts (auto) 9.2 H, Absolute Lymphs (auto) 1.45, Nucleated RBC % 0 03/10/20 05:55: Sodium 140, Potassium 4.2, Chloride 112 H, Carbon Dioxide 24.0, Anion Gap 4 L, BUN 10, Creatinine 0.72, Estim Creat Clear Calc 115.14, Est GFR (MDRD) Af Amer 125, Est GFR (MDRD) Non-Af 103, BUN/Creatinine Ratio 13.8, Glucose 114 H, Calcium 9.0 Clinical Impression(s) from Imaging Studies Lumbar Spine X-Ray 03/09/20 18:21 IMPRESSION: No acute osseous injury is evident. If there is further clinical concern for a radiographically occult spinal fracture, consider CT correlation if possible. Electronically Signed: Damaso Lamas MD at 18:45 EDT Tel , Service support , Lumbar Spine MRI 03/09/20 21:54 IMPRESSION: There is moderate size midline and left para midline disc herniation at L4-5 and L5-S1 impinging on the left L5 and left S1 nerve roots respectively. Electronically Signed: Laureen Viveros, at 11:09 EDT Tel , Service support , Current Medications Acetaminophen (Tylenol) 650 mg PO Q6H PRN PRN PRN Reason: Pain Score 1-10/Temp > 100.7 F Last Admin: 03/10/20 07:52 Dose: 650 mg Documented by: Albuterol Sulfate (Ventolin Aerosols) 2.5 mg INHALATION Q4H PRN PRN PRN Reason: Wheezing/shortnes of breath Cyclobenzaprine HCl (Flexeril) 10 mg PO TID [facility] Last Admin: 03/10/20 13:17 Dose: 10 mg Documented by: Dexamethasone (Decadron) 4 mg PO Q8 [facility] Last Admin: 03/10/20 13:19 Dose: 4 mg Documented by: Ondansetron HCl (Zofran) 4 mg IV Q8H PRN PRN PRN Reason: NAUSEA/VOMITING Ondansetron HCl (Zofran) 8 mg PO Q8H PRN PRN PRN Reason: NAUSEA Oxycodone HCl (Oxyir) 5 mg PO Q4H PRN PRN PRN Reason: Pain Score 4-5/10 Oxycodone HCl (Oxyir) 10 mg PO Q4H PRN PRN PRN Reason: Pain Score 6-10/10 Last Admin: 03/10/20 09:51 Dose: 10 mg Documented by: Prednisone () 40 mg PO DAILY@0800 [facility] Senna/Docusate Sodium (Senokot-S, Gale-Colace) 2 tablet PO DAILY PRN PRN PRN Reason: CONSTIPATION Sodium Chloride () 10 - 40 ml IV UD PRN PRN Reason: SALINE FLUSH Last Admin: 03/09/20 23:33 Dose: 10 ml Documented by: STROKE Vital Signs/Narrative: Vital Signs Temp Pulse Resp BP Pulse Ox 03/10/20 13:21 36.9 C 89 16 116/67 97 Medical Necessity - Tobacco Use Smoking Status: Current every day smoker Tobacco Use: Vapor Assessment/Plan All Active Problems (Last Updated 03/09/20 @ 21:[address] Baljeet Martinez MD) Lower back pain (Acute) Acute low back pain (Acute) 1. herniated disc at L5 and S1 start prednisone. supportive mgmt. No clinical evidence of cauda equina. Recommend continue with therapy, extension exercises and proper sitting positions and avoiding hunching over. Still symptomatic, so will reevaluate 03/11. May need further time before she is more optimal. Advised that she will likely be discharged tomorrow. She has seen therapy who advised wheeled walker. 35 minutes of which greater than 50% of time was constipation about her back pain, MRI results, exercises and proper seating positions. OBSV E&M: [id number] Subsequent observation care L3
[2020-03-10 14:36] LABS: Mucous, Urine 0 SEEN /hpf (<or=2+); Red Blood Cells-Urine 0 SEEN /hpf (0-5)
[2020-03-10 14:42] LABS: Color, Urine Yellow (Yellow); Glucose, Dipstick Normal (Normal); Ketone-Dipstick 5 mg/dl (Negative); Leukocyte Esterase-Dipstick 25 /ul (Negative); Nitrite-Dipstick Negative (Negative); Occult Blood-Urine Negative /ul (Negative); Protein-Dipstick 15 mg/dl (Negative); Specific Gravity, Urine 1.015 (1.002-1.030); Urine Bilirubin Dipstick Negative (Negative); Urine Clarity Sl. Cloudy (Clear); Urine Urobilinogen 1 mg/dl (Normal)
[2020-03-10 15:00] LABS: Bacteria 1+ /hpf (None Seen); Squamous Epithelial Cells - UA 0-5 SEEN /hpf (5-10); White Blood Cells 0-5 SEEN /hpf (0-5)
[2020-03-10 19:45] VITALS: BP 111/62; PULSE 88; RESP 14; TEMP 36.3; O2SAT 100
[2020-03-11] MEDS: Acetaminophen 325 MG Tablet 650 MG PO ×2 (00:20→09:10)
[2020-03-11 02:29] VITALS: BP 101/54; PULSE 72; RESP 14; TEMP 36.4; O2SAT 99
[2020-03-11] MEDS: cycloBENZAPRine HCl 10 MG Tablet PO ×2 (05:30→13:02)
[2020-03-11] MEDS: dexAMETHasone 4 MG Tablet PO ×2 (05:30→13:02)
[2020-03-11] MEDS: oxyCODONE 5 MG Tablet 10 MG PO ×3 (05:36→14:16)
--- NOTE | 2020-03-11 08:19 | DCINST_ITS ---
- Discharge Diagnoses Current Active Problems: Current Active and Chronic Problems (Last Updated 03/09/20 @ 21:[address] Baljeet Martinez MD) Acute low back pain (Acute) You will use the following diet at home:: No restrictions Discharge Activity: Use Walker Return to work on:: 03/22/20 Lifting Restrictions: No heavy lifting (greater than 20 # for the next 10 days. Additional Activity Instructions:: Perform back exercises at least once daily. When sitting, sit upright. You may use a small pillow or rolled up towel to help maintain support. When picking something off the floor, bend with your legs, not your back. Call your doctor if you observe: - - urinary and bowel incontinence. Saddle anesthesia (numbness in groin). Inability to move legs. Instructions: ED Back Pain Acute or Chronic Allergies/Adverse Reactions: Allergies cetirizine [From [facility]] Allergy (Verified 03/09/20 22:09) difficulty breathing, racing heart Medications to take at Discharge Dextroamphetamine/Amphetamine [Dextroamp-Amphet ER 30 mg Cap] 30 mg PO DAILY 03/09/20 Acetaminophen [Tylenol Tablet] 1,000 mg PO TID PRN #1 tab 03/11/20 Ibuprofen 3 tab PO Q6H PRN #1 tablet 03/11/20 Omeprazole 20 mg PO DAILY #14 tab 03/11/20 Oxycodone [Oxyir] 5 mg PO Q6H PRN PRN 3 Days #12 tablet 03/11/20 Prednisone 10 mg PO DAILY #30 tab 03/11/20 cycloBENZAPRine HCl [Flexeril] 10 mg PO TID PRN #15 tab 03/11/20 The following prescriptions were given: cycloBENZAPRine HCl [Flexeril] 10 mg PO TID PRN #15 tab PRN Reason: Muscle Spasm Transmission Status: Sent to [facility] Ibuprofen 3 tab PO Q6H PRN #1 tablet PRN Reason: Pain Or Fever Omeprazole 20 mg PO DAILY #14 tab. Transmission Status: Pending to [facility] Oxycodone [Oxyir] 5 mg PO Q6H PRN PRN 3 Days #12 tablet PRN Reason: Pain Score 6-10/10 Transmission Status: Sent to [facility] Prednisone 10 mg PO DAILY #30 tab Transmission Status: Pending to [facility] Orders to be completed after discharge: Physical Therapy Evaluation Time Frame: 1 Week, Location: None Selected Primary Care Physician: Doctor,Your [STAFF PHYSICIAN] - 1 Week if not improving Test Results: Test results from this visit will be discussed in further detail at your follow- up appointment, if applicable.
--- NOTE | 2020-03-11 08:24 | PCM.WORK.EX ---
Work/School Excuse Work/School Excuse for:: Patient Please excuse this person from:: Work From: 03/09/20 through: 03/22/20 Restrictions: No Heavy Lifting - weight greater than 20# until further cleared by physical therapy.
--- NOTE | 2020-03-11 08:25 | DS.PCM_ITS ---
Discharge Date and Diagnosis - Problem List Patient Problems: Active and Suspected Problems (Last Updated 03/09/20 @ 21:[address] Baljeet Martinez MD) Acute low back pain (Acute) Date of Admission: 03/09/20 Date of Discharge: 03/11/20 - Primary Discharge Diagnosis Acute Problems: Active Problems (Last Updated 03/09/20 @ 21:[address] Baljeet Martinez MD) Acute low back pain (Acute) herniated lumbar disc Hospital Course and Treatment Imaging Results: Clinical Impression(s) from Imaging Studies Lumbar Spine X-Ray 03/09/20 18:21 IMPRESSION: No acute osseous injury is evident. If there is further clinical concern for a radiographically occult spinal fracture, consider CT correlation if possible. Electronically Signed: Damaso Lamas MD at 18:45 EDT Tel , Service support , Lumbar Spine MRI 03/09/20 21:54 IMPRESSION: There is moderate size midline and left para midline disc herniation at L4-5 and L5-S1 impinging on the left L5 and left S1 nerve roots respectively. Electronically Signed: Laureen Viveros at 11:09 EDT Tel , Service support , Operations: None Procedures: None Summary of Care Provided: The patient is a 24 year old F acute low back pain. Patient denied any saddle anesthesia, urinary or bowel incontinence nor any radicular type symptoms. Patient had an MRI of her lumbar spine that showed moderate sized midline and left para midline disc herniation at L4 and 5 and L5 and S1 impinging on the left L5 and left S1 nerve roots. Patient was started on prednisone and continue with pain control. Patient has had some subjective improvement and is been able to go to the bathroom very gingerly with a walker. Patient will be discharged with a prednisone taper plus oxycodone. Patient be advised to take omeprazole while she is on the prednisone but also to take acetaminophen and ibuprofen alternating to assist with pain control. Patient is advised follow-up physical therapy to continue with therapy for her disc herniation and patient was provided the some exercises to perform daily well at home. Patient was told that surgery is not an option at this time but if she seems to fail conservative measures in the coming weeks that a referral to a spine surgeon or neurosurgeon may be necessary. [] Patient Problems: Active and Suspected Problems (Last Updated 03/09/20 @ 21:[address] Baljeet Martinez MD) Acute low back pain (Acute) - Physical Exam Vitals/I&O's: Vital Signs Temp Pulse Resp BP Pulse Ox 36.4 C L 72 14 101/54 L 99 03/11/20 02:29 03/11/20 02:29 03/11/20 02:29 03/11/20 02:29 03/11/20 02:29 Oxygen Delivery Method Room Air Weight: 74.8 kg Body Mass Index (BMI) 25.8 Intake and Output for Last 24 Hours 03/09/20 03/10/20 03/11/20 23:59 23:59 23:59 Intake Total 1500 / 2000 700 / 700 Output Total 400 / 950 550 / 550 Balance 1100 / 1050 150 / 150 General: Alert, No apparent distress HEENT: Atraumatic, Normocephalic Musculoskeletal: No Tenderness to Palpation of Joints or Extremities, No Muscle Wasting Neurological: Motor Exam 5/5 strength throughout Psych/Mental Status: Appropriate, Flat Affect Laboratory Results 03/10/20 14:30: Urine Color Yellow, Urine Clarity Sl. Cloudy, Urine pH 6.0, Ur Specific [place] 1.015, Urine Protein 15 H, Urine Glucose (UA) Normal, Urine Ketones 5 H, Urine Occult Blood Negative, Urine Nitrite Negative, Urine Bilirubin Negative, Urine Urobilinogen 1 H, Ur Leukocyte Esterase 25 H, Urine RBC 0 SEEN, Urine WBC 0-5 SEEN, Ur Squamous Epith Cells 0-5 SEEN, Urine Bacteria 1+, Urine Mucus 0 SEEN Current Medications Acetaminophen (Tylenol) 650 mg PO Q6H PRN PRN PRN Reason: Pain Score 1-10/Temp > 100.7 F Last Admin: 03/11/20 00:20 Dose: 650 mg Documented by: Albuterol Sulfate (Ventolin Aerosols) 2.5 mg INHALATION Q4H PRN PRN PRN Reason: Wheezing/shortnes of breath Cyclobenzaprine HCl (Flexeril) 10 mg PO TID RIOS Last Admin: 03/11/20 05:30 Dose: 10 mg Documented by: Dexamethasone (Decadron) 4 mg PO Q8 RIOS Last Admin: 03/11/20 05:30 Dose: 4 mg Documented by: Ondansetron HCl (Zofran) 4 mg IV Q8H PRN PRN PRN Reason: NAUSEA/VOMITING Ondansetron HCl (Zofran) 8 mg PO Q8H PRN PRN PRN Reason: NAUSEA Oxycodone HCl (Oxyir) 5 mg PO Q4H PRN PRN PRN Reason: Pain Score 4-5/10 Oxycodone HCl (Oxyir) 10 mg PO Q4H PRN PRN PRN Reason: Pain Score 6-10/10 Last Admin: 03/11/20 05:36 Dose: 10 mg Documented by: Prednisone () 40 mg PO DAILY@0800 [facility] Senna/Docusate Sodium (Senokot-S, Gale-Colace) 2 tablet PO DAILY PRN PRN PRN Reason: CONSTIPATION Sodium Chloride () 10 - 40 ml IV UD PRN PRN Reason: SALINE FLUSH Last Admin: 03/09/20 23:33 Dose: 10 ml Documented by: Discharge Diet: No Restrictions Discharge Activity: Use Walker Return to work on:: 03/22/20 Additional Activity Instructions:: Perform back exercises at least once daily. When sitting, sit upright. You may use a small pillow or rolled up towel to help maintain support. When picking something off the floor, bend with your legs, not your back. Call your doctor if you observe: - - urinary and bowel incontinence. Saddle anesthesia (numbness in groin). Inability to move legs. Home Medications: Medications to take at Discharge Dextroamphetamine/Amphetamine [Dextroamp-Amphet ER 30 mg Cap] 30 mg PO DAILY 03/09/20 Acetaminophen [Tylenol Tablet] 1,000 mg PO TID PRN #1 tab 03/11/20 Ibuprofen 3 tab PO Q6H PRN #1 tablet 03/11/20 Omeprazole 20 mg PO DAILY #14 tab 03/11/20 Oxycodone [Oxyir] 5 mg PO Q6H PRN PRN 3 Days #12 tablet 03/11/20 Prednisone 10 mg PO DAILY #30 tab 03/11/20 cycloBENZAPRine HCl [Flexeril] 10 mg PO TID PRN #15 tab 03/11/20 Following Prescriptions Were Given to Patient: cycloBENZAPRine HCl [Flexeril] 10 mg PO TID PRN #15 tab PRN Reason: Muscle Spasm Transmission Status: Sent to [facility] Ibuprofen 3 tab PO Q6H PRN #1 tablet PRN Reason: Pain Or Fever Omeprazole 20 mg PO DAILY #14 tab.rap.dr Transmission Status: Pending to [facility] Oxycodone [Oxyir] 5 mg PO Q6H PRN PRN 3 Days #12 tablet PRN Reason: Pain Score 6-10/10 Transmission Status: Sent to [facility] Prednisone 10 mg PO DAILY #30 tab Transmission Status: Pending to [facility] Other Amb Orders: Physical Therapy Evaluation Time Frame: 1 Week, Location: None Selected Primary Care Physician: Doctor,Your [STAFF PHYSICIAN] - 1 Week if not improving Patient Instructions: ED Back Pain Acute or Chronic Disposition: Home Minutes spent on discharge:: 32 Patient Condition:: Fair Medical Necessity - Tobacco Use Smoking Status: Current every day smoker Tobacco Use: Vapor Meaningful Use Info Meaningful Use Diagnoses (Choose all that apply): None applicable OBSV E&M: 19247 Observation care discharge
[2020-03-11 08:30] VITALS: BP 102/57; PULSE 70; RESP 18; TEMP 36.3; O2SAT 99
[2020-03-11] MEDS: predniSONE 20 MG Tablet 40 MG PO (09:10)
--- NOTE | 2020-03-11 09:24 | CASEMGMT ---
Addendum entered by Estela Delgado 03/11/20 11:17: Call received from Soledad @ [facility]. She states they received the script and will deliver the WW and bath bench. She states they will deliver the walker soon and will make arrangements w/pt to deliver bath bench to pt's home . Pt made aware. She states she will contact [facility] to schedule therapy appts. Pt denies any further discharge needs. Addendum entered by Estela Delgado 03/11/20 09:59: Scripts obtained for walker and bath bench and faxed to [facility]. Call placed to [facility] and they were made aware pt is discharging today. Script for OP therapy @ [facility] obtained, faxed to [facility] and original given to pt. Copies of scripts for DME and OP therapy both placed on pt's chart. Original Note: BRIT YAP NOTE: PT/OT notes have been reviewed--additional therapy recommended. To room to talk w/pt. Introduced self and role of BRIT YAP. Discussed OP therapy with pt and she wants to go to [facility]. Also discussed DME needs. Pt states she would like a walker and bath bench. Given list of local DME companies. She has no preference. Will obtain scripts for walker and bath bench and for OP therapy. Ela ESPINAL RN, CM
[2020-03-11] MEDS: Senna/Docusate Sodium 1 Tablet 2 TABLET PO (10:05)
--- NOTE | 2020-03-11 12:40 | PHA.DC.MC ---
Pharmacy Service has performed discharge medication reconciliation and counseling for this patient. The patient was counseled on the following discharge medications and changes in medications for homegoing were reviewed. 1. FLEXERIL 2. OXYCODONE 3. IBUPROFEN 4. PROTONIX 5. PREDNISONE The Reason for Use, instructions for use, and potential side effects were reviewed for all new medications. The patient's questions regarding all of their medications were answered. The patient was able to verbally demonstrate an understanding of their discharge medications. Home Medications Dextroamphetamine/Amphetamine [Dextroamp-Amphet ER 30 mg Cap] 30 mg PO DAILY 03/09/20 Acetaminophen [Tylenol Tablet] 1,000 mg PO TID PRN #1 tab 03/11/20 Ibuprofen 3 tab PO Q6H PRN #1 tab 03/11/20 Omeprazole 20 mg PO DAILY #14 tab.rap.dr 03/11/20 Oxycodone [Oxyir] 5 mg PO Q6H PRN PRN 3 Days #12 tab 03/11/20 Prednisone 10 mg PO DAILY #30 tab 03/11/20 cycloBENZAPRine HCl [Flexeril] 10 mg PO TID PRN #15 tab 03/11/20 The patient's discharge medication list was reviewed for discrepancies and discrepancies were resolved.
[2020-03-11 14:14] VITALS: BP 110/50; PULSE 76; RESP 18; TEMP 36.8; O2SAT 97
== END 2020-03-11 14:55 | disposition home or self-care (01) ==
LOC: ED 20:14 → MS3 21:03
PROVIDERS: Admitting Provider Hospitalist; Emergency Provider Emergency Medicine; Referring Provider Hospitalist
DX: M51.26 Other intervertebral disc displacement, lumbar region (principal); M51.27 Other intervertebral disc displacement, lumbosacral region; F90.9 Attention-deficit hyperactivity disorder, unspecified type; Z79.899 Other long term (current) drug therapy; F17.290 Nicotine dependence, other tobacco product, uncomplicated
CPT/HCPCS: 36415; 72100; 72148; 80048; 81001; 85025; 96372; 97162; 97166; 99218; 99283; A4216; G0378

== ENCOUNTER 2020-03-17 20:57 | Emergency (ER) | payer MEDICAID, SELFPAY ==
[2020-03-09 22:00] VITALS: BMI 25.8
[2020-03-17 20:57] VITALS: BP 123/69; PULSE 99; RESP 18; TEMP 36.2; O2SAT 98; BMI 26.6
--- NOTE | 2020-03-17 21:18 | ED.VISSUMM ---
- ER Visit Summary Date of Service: 03/17/20 Chief Complaint: Low back pain History of Present Illness: The patient is a 24 F with low back pain. She was admitted last week when her back went out. She had an MRI that showed bulging disks. She is planning to follow-up with spine and she has an appointment with pain management tomorrow. She is out of her pain medicine and presents with increasing pain. No other new symptoms. Physical Examination: Afebrile and vital signs unremarkable. Back shows normal inspection. Diffuse tenderness. Neurovascular intact. Legs unremarkable. Test Results: None indicated Emergency Department Course and Treatment: Patient has exacerbation of her back pain. No new or concerning symptoms emergently. Her pain is severe, and she was treated with a dose of morphine subcutaneous here. She will continue her steroids and anti-inflammatories at home. She has follow-up with pain management tomorrow. Treatment Plan: As above Disposition: Discharge Impression: Lumbar back pain This note was generated with [employer] dictation software. It may contain incorrect words, spelling, and punctuation that were not noted in review of the chart prior to signing ED Disposition - Plan for ED Patient: Referrals: Rodrigo Rasmussen, CLAIRE-C [Primary Care Provider] -
--- NOTE | 2020-03-17 21:19 | ED.DEP ---
ED Disposition - Plan for ED Patient: Instructions: ED Back Pain Acute or Chronic Additional Instructions: Follow-up with your pain doctor tomorrow
[2020-03-17] MEDS: morphine 10 MG/ML Syringe 4 MG SC (21:30)
[2020-03-17] MEDS: Ibuprofen 400 MG Tablet 800 MG PO (21:57)
[2020-03-17] MEDS: Morphine 4 MG/ML Syringe SC (22:04)
[2020-03-17 22:27] VITALS: BP 112/60; PULSE 76; RESP 15; O2SAT 97
--- NOTE | 2020-03-17 22:29 | ED.RN ---
shot time observed for grerater than 15minutes no reaction noted by this rn. pt d/c home with mom.
== END 2020-03-17 22:29 | disposition home or self-care (01) ==
LOC: ED 21:25
PROVIDERS: Emergency Provider Emergency Medicine; PCP Nurse Practitioner Family
DX: M54.5 Low back pain (principal); Z72.0 Tobacco use
CPT/HCPCS: 96372; 99283

== ENCOUNTER 2020-04-18 00:44 | Emergency (ER) | payer MEDICAID, SELFPAY ==
[2020-04-18 00:44] VITALS: BP 125/82; PULSE 82; RESP 16; TEMP 36.8; O2SAT 98; BMI 29.2
[2020-04-18] MEDS: Acetaminophen 325 MG Tablet 650 MG PO (01:39)
[2020-04-18 01:47] LABS: Color, Urine Yellow (Yellow); Glucose, Dipstick Normal (Normal); Ketone-Dipstick Negative (Negative); Leukocyte Esterase-Dipstick 25 /ul (Negative); Nitrite-Dipstick Negative (Negative); Occult Blood-Urine 25 /ul (Negative); Protein-Dipstick Negative (Negative); Specific Gravity, Urine 1.015 (1.002-1.030); Urine Bilirubin Dipstick Negative (Negative); Urine Clarity Clear (Clear); Urine Urobilinogen Normal (Normal)
[2020-04-18 01:48] LABS: Mucous, Urine 0 SEEN /hpf (<or=2+)
--- NOTE | 2020-04-18 01:52 | ED.VIS.BACK ---
History of Present Illness Chief Complaint: Back Informant: Patient Onset: Month(s) - 1-2 Timing: Continuous Quality: Aching Location: Lumbar Current Severity: Mild Maximum Severity: Severe Worsened by: improves with: Movement Relieved by: Remaining Still Associated Symptoms: Radiation to Left Leg - Mostly. Occasionally to the right as well., Urinary Incontinence Narrative: 1 to 2 months of back pain after throwing it out. She states she has been having sciatica-like symptoms with pain and tingling shooting down her left lower extremity, occasionally the right. She has had times when her legs give out on her, she has been limited by pain, but for the most part she is able to stand and walk. She denies any weakness that is been persistent, the tingling and numbness has been off and on which is not currently present in her legs. She has had bouts intermittently of urinary incontinence for the past 3 weeks. She has had no stool incontinence or retention and no urinary retention. She states that she gets the urge to urinate, and then she feels like she needs to raise to the bathroom and often does not make it before she starts leaking urine. She denies frequency, dysuria, hematuria. No fevers or chills, she states it feels like there is some pressure down there but denies any abdominal pain. She denies any saddle anesthesia or numbness at all whenever she wipes after going to the bathroom. She presents Sunday morning at 1:30 AM because the urinary incontinence occurred again, and she called a nursing line that recommended she be evaluated in the emergency department. Patient states she had an MRI lumbar spine for this problem around 4 weeks ago. Past Medical History - Allergies and Home Meds Allergies/Adverse Reactions: Allergies cetirizine [From [facility]] Allergy (Verified 04/18/20 00:47) difficulty breathing, racing heart Primary Care Physician: [facility] [Outside] - As soon as possible Rodrigo Rasmussen NP, [employer]-C [Primary Care Provider] - Past Medical History: None Surgical History: - - Tooth extraction Smoking Status: Current some day smoker Drugs: None - Family History Maternal Family History: Reports: Cancer, - - multiple sclerois. Paternal Family History: Reports: Diabetes, Renal Disease, - - father is on dialysis. Review of Systems General: Denies: Chills, Fever, Sweats Eyes: Denies: Visual changes - bilaterally, Diplopia ENT: Denies: Rhinorrhea, Sore throat Cardiovascular: Denies: Chest pain, Palpitations Respiratory: Denies: Dyspnea, Cough, Dyspnea on exertion Gastrointestinal: Denies: Abdominal pain, Nausea, Vomiting, Diarrhea, Melena, Hematochezia Genitourinary: Reports: - - Intermittent urinary incontinence. Denies: Dysuria, Hematuria, Frequency Musculoskeletal: Reports: Back pain, Extremity Pain - See HPI. Denies: Swelling Skin: Denies: Rash, Wounds Neurological: Reports: Weakness - Occasional legs giving out on her briefly. See HPI., Numbness. Denies: Headache Physical Exam Vital Signs/Narrative: Vital Signs Temp Pulse Resp BP Pulse Ox 04/18/20 00:44 98.3 F 82 16 125/82 H 98 Inital Vital Signs reviewed: Yes General: Well nourished, Well developed, - - Well-appearing no acute distress Head: Normocephalic, Atraumatic Neck: Supple, Nontender Back: Normal Inspection, Spinal tenderness - Diffuse lower lumbar, Paraspinal Tenderness - Diffuse lower lumbar, Negative SLR - Right - Increases back pain only, no reproduction of radicular symptoms, Negative SLR - Left - Increases back pain only, no reproduction of radicular symptoms Extremeties: Nontender, No edema Skin: Normal color, No rash Neuro: Alert, Oriented, Normal Strength - Patient is able to stand after getting out of the bed without assistance, and has no difficulty doing so., Normal Sensation, Normal DTR, Normal Gait Reflexes: Right Patellar - Normal, Right Achilles - Normal, Left Patellar - Normal, Left Achilles - Normal. Negative for: Right Clonus, Right Babinski - Normal, Left Clonus, Left Babinski - Normal Psychological: Normal Mood, - - Anxious Diagnostic/Tx/Re-eval Laboratory Tests 04/18/20 Range/Units 01:40 Urine Color Yellow (Yellow) Urine Clarity Clear (Clear) Urine pH 7.0 (5.0 - 8.0) Ur Specific [place] 1.015 (1.002-1.030) Urine Protein Negative (Negative) mg/dl Urine Glucose (UA) Normal (Normal) mg/dl Urine Ketones Negative (Negative) mg/dl Urine Occult Blood 25 H (Negative) /ul Urine Nitrite Negative (Negative) Urine Bilirubin Negative (Negative) mg/dL Urine Urobilinogen Normal (Normal) mg/dl Ur Leukocyte Esterase 25 H (Negative) /ul Urine RBC 0-5 SEEN (0-5) /hpf Urine WBC 0-5 SEEN (0-5) /hpf Ur Squamous Epith Cells 0-5 SEEN (5-10) /hpf Urine Bacteria 2+ (None Seen) /hpf Urine Mucus 0 SEEN (<or=2+) /hpf Urine Yeast RARE (None Seen) /hpf - Medical Decision Making We obtained a urinalysis to see if she had a bladder infection, she does not. At this time she does not have acute cauda equina syndrome clinically. However, her MRI does show significant disease at the L4-5 disc. Certainly her urinary incontinence may be related to this, however she does not have cauda equina syndrome or conus medullaris syndrome at this time clinically. She does need to follow-up, I would recommend first seen a neurosurgeon or orthopedic senior capital markets specialist, none of which we have in this area. She was given a referral to spine orthopedics at [facility]. I recommend she follow-up with them with her MRI. ED Disposition - Plan for ED Patient: Disposition: Home or Assisted Living Diagnosis: L4-L5 disc bulge, Low back pain with left-sided sciatica, Intermittent urinary incontinence Instructions: ED LUMBAR RADICULOPATHY Referrals: Rodrigo Rasmussen NP, [employer]-C [Primary Care Provider] - [facility] [Outside] - As soon as possible
[2020-04-18 01:53] LABS: Bacteria 2+ /hpf (None Seen); Red Blood Cells-Urine 0-5 SEEN /hpf (0-5); Squamous Epithelial Cells - UA 0-5 SEEN /hpf (5-10); White Blood Cells 0-5 SEEN /hpf (0-5); Yeast-Urine RARE /hpf (None Seen)
[2020-04-18] MEDS: Ketorolac 60 MG/2 ML Vial IM (02:38)
[2020-04-18 02:42] VITALS: RESP 16
== END 2020-04-18 03:07 | disposition home or self-care (01) ==
PROVIDERS: Emergency Provider Emergency Medicine; PCP Nurse Practitioner Family
DX: M54.42 Lumbago with sciatica, left side (principal); R32 Unspecified urinary incontinence; M51.16 Intervertebral disc disorders with radiculopathy, lumbar region; F17.200 Nicotine dependence, unspecified, uncomplicated
CPT/HCPCS: 81001; 96372

== ENCOUNTER 2020-04-18 22:00 | Emergency (ER) | payer MEDICAID, SELFPAY ==
[2020-04-18 00:44] VITALS: BMI 29.2
[2020-04-18 22:00] VITALS: BP 118/78; PULSE 94; RESP 16; TEMP 36.6; BMI 27.3
[2020-04-18] MEDS: predniSONE 20 MG Tablet 60 MG PO (22:28)
[2020-04-18] MEDS: Ondansetron ODT 4 MG Tablet PO (22:29)
[2020-04-18] MEDS: morphine 8 MG/ML Syringe IM (22:29)
--- NOTE | 2020-04-18 23:14 | ED.VISSUMM ---
- ER Visit Summary Date of Service: 04/18/20 Chief Complaint: Back pain History of Present Illness: The patient is a [address] Boyle. She has a known history of herniated disks and had an MRI in June. She had an MRI last month when she was admitted for intractable back pain that showed progression of her L4-L5 and L5-S1 disc protrusions. Patient reports that her pain is been worse since that time. States the stabbing pain is 10 of 10 in severity. Is worsened by movement. She is taking gabapentin, tizanidine, nabumetone, and Tylenol without relief. States is radiating around the front of her left leg to her toes. She reports that she has numbness that comes and goes. It is not numb now. She denies any weakness. She denies any groin numbness. She denies any urinary retention or fecal incontinence. She reports that she has been incontinent of urine for approximately 2 weeks. Patient denies any recent trauma. No fall, MVA, or change in activity. She denies any fever or chills. She denies IV drug abuse. Physical Examination: Vitals: Stable. Afebrile. General: A&O x 3. NAD. Cardiovascular exam: Regular rate and rhythm, no murmur, rub or gallop. Respiratory exam: Clear to auscultation bilaterally. No wheezes or stridor. Abdominal exam: Soft, nontender, nondistended, normal bowel sounds. No peritoneal signs. Back: Diffuse moderate tenderness to palpation over the lumbar spine and the paraspinous musculature in the lumbar region. No point tenderness. Negative straight leg bilaterally. 5/5 DF, PF, EHL bilaterally. Normal sensation to light touch throughout. Extremity: No clubbing, cyanosis, or edema. Emergency Department Course and Treatment: Patient has no signs or symptoms of cauda equina syndrome. She does not have urinary retention. I did review the MRI that she had last month. She certainly does have disease with progression over the course the past 8 months. An [facility] report was obtained which shows she is had 6 prescriptions for opiates in the past year. She was given a dose of morphine IM and prednisone p.o. here. She is resting more comfortably. Treatment Plan: Patient will be discharged prescription for 10 [place] to take in addition to her other medications. She is given the phone number for Dr. Kim, a back surgeon in [facility], and instructed to follow-up with them as soon as possible. The signs and symptoms of cauda equina syndrome were discussed. She is instructed to return for these. Disposition: To home in improved and stable condition. Impression: 1. Acute on chronic low back pain. 2. L4/L5, L5/S1 disc herniations. This note was generated with [employer] software. It may contain incorrect words, spelling, and punctuation that were not noted in review of the chart prior to signing ED Disposition - Plan for ED Patient: Instructions: ED LUMBAR RADICULOPATHY Prescriptions: Hydrocodone Bitart/Apap 5-325 [[place] 5MG-325MG] 1 tablet PO Q4H PRN PRN 2 Days #10 tablet PRN Reason: Pain Prednisone 10 mg PO DAILY #63 tablet Referrals: Sabas Kim DO [STAFF PHYSICIAN] - As soon as possible
[2020-04-18 23:43] VITALS: BP 98/75; PULSE 84; RESP 16; O2SAT 99
== END 2020-04-18 23:48 | disposition home or self-care (01) ==
PROVIDERS: Emergency Provider Emergency Medicine; PCP Nurse Practitioner Family
DX: M51.26 Other intervertebral disc displacement, lumbar region (principal); M54.42 Lumbago with sciatica, left side; G89.29 Other chronic pain; R32 Unspecified urinary incontinence; F17.200 Nicotine dependence, unspecified, uncomplicated
CPT/HCPCS: 81001; 96372; 99283

== ENCOUNTER 2020-08-22 15:48 | Emergency (ER) | payer MEDICAID, SELFPAY ==
[2020-08-22 15:49] VITALS: BP 101/58; PULSE 102; RESP 18; TEMP 36; O2SAT 97; BMI 26.2
[2020-08-22 15:52] VITALS: BP 101/58
--- NOTE | 2020-08-22 16:38 | ED.DCSUM_ITS ---
History of Present Illness Chief Complaint: Back Informant: Patient Onset: Yesterday Context: Gradual Onset Timing: Waxes and wanes Current Severity: Moderate Maximum Severity: Moderate Narrative: Patient presents secondary to lower back pain. She has a history of back pain secondary to slipped disks. She has been trying to be seen for injections for the last several months but states there has been some problems with her insurance. Patient states yesterday she had to move some furniture after her washer overflowed. She had some tightness in her low back at that time and worsened today when she went to work. Pain is worse on the left. It does not shoot down her leg. She is already on gabapentin and Zanaflex for her back. - Past Medical History (1) Lower back pain Status: Chronic Past Medical History - Allergies and Home Meds Allergies/Adverse Reactions: Allergies cetirizine [From [facility]] Allergy (Verified 08/22/20 15:49) difficulty breathing, racing heart Primary Care Physician: Rodrigo Rasmussen NP, OPERATIONS SECTION MANAGER-C [Primary Care Provider] - 1 Week Prior records reviewed: Yes Surgical History: - - Tooth extraction Lives: With Family Smoking Status: Current every day smoker - Family History Maternal Family History: Reports: Cancer, - - multiple sclerois. Paternal Family History: Reports: Diabetes, Renal Disease, - - father is on dialysis. Review of Systems General: Denies: Chills, Fever Eyes: Denies: Visual changes - bilaterally ENT: Denies: Bilateral ear pain Cardiovascular: Denies: Chest pain Respiratory: Denies: Dyspnea, Cough Gastrointestinal: Denies: Abdominal pain, Nausea, Vomiting, Diarrhea Musculoskeletal: Reports: Back pain. Denies: Extremity Pain Skin: Denies: Rash Neurological: Reports: Parasthesia - Chronic paresthesias to right leg from her back Hematologic: Denies: Easy bruising, Easy bleeding Allergy: Denies: Uticaria Physical Exam Vital Signs/Narrative: Vital Signs Temp Pulse Resp BP Pulse Ox 08/22/20 15:52 101/58 L 08/22/20 15:49 96.8 F L 102 H 18 101/58 L 97 Inital Vital Signs reviewed: Yes General: Well nourished, Well developed Head: Normocephalic ENT: Moist mucous membranes Neck: Supple Cardiovascular: Regular rate, Regular rhythm Respiratory: No distress, CTA bilaterally Abdomen: Soft, Nontender, Normal bowel sounds Back: - - No midline spinal tenderness. No erythema. She does have reproducible tenderness in the left low lumbar paraspinal muscles near the sciatic notch. Extremities: Nontender Skin: Normal color Neurological: Alert, Oriented x3, Normal Strength Psychological: Normal affect Diagnostic/Tx/Re-eval - Medical Decision Making Patient be given a dose of prednisone and oxycodone here. She be given a prescription for prednisone only at home. She is to follow-up with her pain management doctor soon as possible. With no direct trauma or injury do not feel imaging is needed at this time. ED Disposition - Plan for ED Patient: Disposition: Home or Assisted Living Diagnosis: Strain of lumbar paraspinal muscle Instructions: ED Back Sprain/Strain Prescriptions: Prednisone [Deltasone] 40 mg PO DAILY #10 tab Transmission Status: Pending to [id number] Referrals: Rodrigo Rasmussen NP, OPERATIONS SECTION MANAGER-C [Primary Care Provider] - 1 Week
[2020-08-22] MEDS: oxyCODONE 5 MG Tablet PO (16:54)
[2020-08-22] MEDS: predniSONE 20 MG Tablet 60 MG PO (16:54)
== END 2020-08-22 16:59 | disposition home or self-care (01) ==
PROVIDERS: Emergency Provider Emergency Medicine; PCP Nurse Practitioner Family
DX: S39.012A Strain of muscle, fascia and tendon of lower back, initial encounter (principal); F17.200 Nicotine dependence, unspecified, uncomplicated; X50.0XXA Overexertion from strenuous movement or load, initial encounter; Y93.89 Activity, other specified; Y92.008 Other place in unspecified non-institutional (private) residence as the place of occurrence of the external cause; Y99.8 Other external cause status
CPT/HCPCS: 99282

== ENCOUNTER 2020-10-29 21:12 | Emergency (ER) | payer MEDICAID, SELFPAY ==
[2020-10-29 21:12] VITALS: BP 116/69; PULSE 97; RESP 18; TEMP 36.6; O2SAT 99; BMI 25.0
--- NOTE | 2020-10-29 21:58 | ED.VISSUMM ---
- ER Visit Summary Date of Service: 10/29/20 Chief Complaint: Rash History of Present Illness: The patient is a 25 F with a scalp rash for several weeks. Patient tried antibiotics and shampoos for this, but it is not improving. Physical Examination: Patient has a scaly serpiginous rash to her left parietal scalp. Alopecia noted. No fluctuance or significant induration. No warmth or redness. Test Results: None indicated Emergency Department Course and Treatment: Consistent with tinea capitis. Patient has tried antibiotics. I do not suspect a bacterial infection. She tried the selenium shampoo 3 times a week for several weeks but it was not improving. We will try oral agents. She was placed on Diflucan once weekly for 8 weeks. Follow-up with dermatology. Treatment Plan: As above Disposition: Discharge Impression: Tinea capitis This note was generated with [employer] medical dictation software. It may contain incorrect words, spelling, and punctuation that were not noted in review of the chart prior to signing ED Disposition - Plan for ED Patient: Referrals: Rodrigo Rasmussen NP, PSYCHIATRIC NURSING AIDE-C [Primary Care Provider] -
--- NOTE | 2020-10-29 22:00 | ED.DEP ---
ED Disposition - Plan for ED Patient: Instructions: ED Ringworm of the Scalp Prescriptions: Fluconazole [Diflucan] 150 mg PO QWEEK #7 tablet Prescription Printed Referrals: Rodrigo Rasmussen NP, WELDING MACHINE OPERATOR HELPER ARC-C [Primary Care Provider] -
[2020-10-29] MEDS: Fluconazole 100 MG Tablet 150 MG PO (22:01)
== END 2020-10-29 22:13 | disposition home or self-care (01) ==
LOC: ED 22:08
PROVIDERS: Emergency Provider Emergency Medicine; PCP Nurse Practitioner Family
DX: B35.0 Tinea barbae and tinea capitis (principal)
CPT/HCPCS: 99283

== ENCOUNTER 2020-11-17 16:11 | Emergency (ER) | payer MEDICAID, SELFPAY ==
[2020-11-17 16:11] VITALS: BP 112/70; PULSE 87; RESP 15; TEMP 36; O2SAT 100; BMI 26.6
--- NOTE | 2020-11-17 16:20 | ED.VIS.BACK ---
HPI History of Present Illness Chief Complaint: Back Informant: patient Narrative Narrative: Patient is having an acute exacerbation of her chronic back pain. She has had back pain for 5 years. Over the past year she states it has been getting worse. Last weekend she had to lift heavy things and this exacerbated her pain. 2 weeks ago she had steroid injections in her lower spine performed by a Dr. Camilo. Currently she denies any fever, bowel bladder incontinence or retention. She has been trying her home medications to include Tylenol tizanidine nabumetone and Neurontin. She denies any abdominal pain. She has no weakness of her lower extremities. [facility] Medical History ADHD Lower back pain Home Medications acetaminophen 1,000 mg PO TID PRN #1 tab 03/11/20 [Rx Last Taken Unknown] gabapentin 300 mg PO TID 04/18/20 [History Last Taken Unknown] nabumetone 500 mg PO BID 04/18/20 [History Last Taken Unknown] tizanidine 4 mg PO Q8H PRN PRN 04/18/20 [History Last Taken Unknown] prednisone 40 mg PO DAILY #10 tab 08/22/20 [Rx Last Taken Unknown] fluconazole 150 mg PO QWEEK #7 tablet 10/29/20 [Rx Last Taken Unknown] prednisone 40 mg PO DAILY #8 tablet 11/17/20 [Rx Last Taken Unknown] Allergy/AdvReac Type Severity Reaction Status Date / Time cetirizine [From [facility]] Allergy difficulty Verified 11/17/20 16:13 breathing, racing heart no significant family history Social History Smoking Status: Current every day smoker ROS ROS ED Constitutional Constitutional ED: Denies chills or fever(s) Eyes Eyes: Denies blurry vision or change in vision ENT ENT ED: Denies ear pain, rhinorrhea or sore throat Cardiovascular Cardiovascular: Reports chest pain; Denies palpitations Respiratory/Chest Respiratory/Chest: Denies cough, dyspnea or sputum Gastrointestinal Gastrointestinal: Denies abdominal pain, diarrhea, nausea or vomiting Genitourinary Genitourinary ED: Denies dysuria, hematuria or urinary frequency Musculoskeletal Musculoskeletal: Reports back pain Integumentary Denies change in pigmentation or rash Neurologic Neurologic: Denies headache(s), numbness or weakness Psychiatric Psychiatric: Denies anxiety or depression Endocrine Endocrinology: Denies polydipsia or polyuria EXAM Physical Exam Const Vital Signs: 11/17/20 16:11 Temperature 96.8 F L Temperature Source Temporal Pulse Rate 87 Respiratory Rate 15 Blood Pressure 112/70 Blood Pressure Mean 84 Pulse Ox 100 Oxygen Delivery Method Room Air Positive well nourished and well developed General Appearance ED: well developed and NAD HEENT Reports moist mucous membranes normocephalic and atraumatic; Negative for tenderness Eyes PERRL and EOMs intact bilaterally Chest Wall Chest: Negative for tenderness Resp normal respiratory effort and clear to auscultation bilaterally Effort and Inspection: Negative for respiratory distress Cardio regular rate and regular rhythm; Negative for no murmurs GI soft to palpation, non-tender and non-distended Back/Spine Cervical Spine: Negative for cervical spine tenderness Lumbar Spine / Lower Back: normal to inspection and lumbar spinal tenderness Extremity normal to inspection General Extremety ED: Negative for tenderness Neuro oriented x3, CN's II-XII intact bilaterally and no sensory deficits noted Sensorium / Orientation: awake and alert Motor Exam: strength 5/5 throughout Deep Tendon Reflexes: Rt Patellar (L4): 2+, Lt Patellar (L4): 2+, Rt Ankle (S1): 2+ and Lt Ankle (S1): 2+ Deep Tendon Reflexes Back: Rt Patellar (L4): 2+, Lt Patellar (L4): 2+, Rt Ankle (S1): 2+ and Lt Ankle (S1): 2+ Psych mental status grossly normal Skin no rashes or lesions noted MDM MDM MDM Narrative Medical decision making narrative: The patient was given a dose of Toradol and Norflex here. I will send her home with prednisone. She will need to get any of her chronic pain medications from her pain management physician. Discharge Plan Triage Chief Complaint: Back ED Provider: Ugo Garner Dx/Rx/DC Orders Clinical Impression: Acute exacerbation of chronic low back pain Instructions: ED Back Pain (Acute or Chronic) Prescriptions: New prednisone 20 MG tablet 40 mg PO DAILY Qty: 8 RF: 0 No Action acetaminophen 325 MG tablet 1,000 mg PO TID PRN (Reason: Pain Score 1-10/Temp > 100.7 F) Qty: 1 RF: 0 gabapentin 300 MG capsule 300 mg PO TID RF: 0 nabumetone 500 MG tablet 500 mg PO BID RF: 0 tizanidine 4 MG capsule 4 mg PO Q8H PRN PRN (Reason: Muscle Spasm) RF: 0 prednisone 20 MG tablet 40 mg PO DAILY Qty: 10 RF: 0 fluconazole 150 MG tablet 150 mg PO QWEEK Qty: 7 RF: 0 Primary Care Provider: Rodrigo Rasmussen NP Referrals: Rodrigo Rasmussen NP, CLINICAL SPECIALIST VASCULAR-C [Primary Care Provider] - Disposition Disposition: Home, self care
[2020-11-17] MEDS: Ketorolac 60 MG/2 ML Vial IM (16:26)
[2020-11-17] MEDS: Orphenadrine 60 MG/2 ML Ampul IM (16:27)
[2020-11-17 17:07] VITALS: PULSE 85; RESP 16; O2SAT 94
== END 2020-11-17 17:07 | disposition home or self-care (01) ==
PROVIDERS: Emergency Provider Emergency Medicine; PCP Nurse Practitioner Family
DX: M54.5 Low back pain (principal); G89.29 Other chronic pain; F17.200 Nicotine dependence, unspecified, uncomplicated; Z79.1 Long term (current) use of non-steroidal anti-inflammatories (NSAID); Z79.52 Long term (current) use of systemic steroids
CPT/HCPCS: 96372; 99282

== ENCOUNTER 2020-12-07 23:11 | Emergency (ER) | payer MEDICAID, SELFPAY ==
[2020-12-07 23:12] VITALS: BP 125/81; PULSE 90; RESP 18; TEMP 36.4; O2SAT 99; BMI 28.1
--- NOTE | 2020-12-07 23:45 | EDS_ITS ---
HPI History of Present Illness Chief Complaint: Anxiety Informant: patient Onset/Context/Timing Onset: Yesterday Context: Sudden Onset Timing: Continuous Quality: Anxiety because she was told she has skin cancer Location: Scalp Current Severity: Moderate Maximum Severity: Severe Worsened by: Being informed via telephone that she has basal cell carcinoma Relieved by: Nothing Associated Symptoms Associated Symptoms: Shortness of breath, anxiety, palpitations Narrative Narrative: Patient is a 25-year-old female who had a biopsy of scalp lesion that was present for 2 years. She was contacted by her tile and marble setter yesterday and told over the phone that she has basal cell carcinoma. She does not know the severity or extent. Patient states she is distraught based on the news. She is concerned that she has a bump on her neck. She states the bump is painful. She denies weight loss. She denies night sweats. She has no other complaints. Prior similar symptoms: No Recent Illness/Hospitalization: No PFSH PFSH Medical History ADHD Lower back pain Skin cancer Home Medications acetaminophen 1,000 mg PO TID PRN #1 tab 03/11/20 [Rx Last Taken Unknown] nabumetone 500 mg PO BID 04/18/20 [History Last Taken Unknown] tizanidine 4 mg PO Q8H PRN PRN 04/18/20 [History Last Taken Unknown] levonorgestrel [Mirena] 20 mcg INTRAUTERINE DAILY 12/07/20 [History Last Taken Unknown] lorazepam [Ativan] 0.5 mg PO TID PRN #10 tab 12/07/20 [Rx Last Taken Unknown] Allergy/AdvReac Type Severity Reaction Status Date / Time cetirizine [From [facility]] Allergy difficulty Verified 12/07/20 23:11 breathing, racing heart Social History (Updated 12/07/20 @ 23:[address] Nilay Granados MD) Smoking Status: Current every day smoker details: Occasionally substance use type: does not use ROS ROS ED Constitutional Constitutional ED: Denies chills, fever(s), subjective or sweats Eyes Eyes: Denies blurry vision, change in vision or diplopia ENT ENT ED: Denies ear pain, rhinorrhea or sore throat Cardiovascular Cardiovascular: Reports palpitations; Denies chest pain Respiratory/Chest Respiratory/Chest: Reports dyspnea; Denies cough or dyspnea on exertion Gastrointestinal Gastrointestinal: Reports nausea; Denies abdominal pain, diarrhea or vomiting Integumentary Denies abscess or rash Neurologic Neurologic: Denies headache(s), paresthesias or weakness EXAM Physical Exam Const Vital Signs: 12/07/20 23:12 12/07/20 23:20 Temperature 97.6 F L Temperature Source Temporal Pulse Rate 90 Respiratory Rate 18 Respiratory Effort Normal Non-Labored Respiratory Depth Normal Respiratory Pattern Normal Blood Pressure 125/81 H Blood Pressure Mean 95 Pulse Ox 99 Oxygen Delivery Method Room Air Positive well nourished and well developed Constitutional Narrative: Patient is anxious and became tearful during history and physical examination. General Appearance ED: well developed Eyes PERRL and EOMs intact bilaterally General Eye ED: Negative for pale conjunctiva or scleral icterus Neck no lymphadenopathy, supple and no JVD Neck Narrative: Trachea is midline. There is no inspiratory stridor. General: Negative for tenderness Resp normal respiratory effort and clear to auscultation bilaterally Cardio regular rate, regular rhythm, S1 normal heart sound, S2 normal heart sound and no murmurs Neuro oriented x3 and CN's II-XII intact bilaterally Sensorium / Orientation: alert Motor Exam: strength 5/5 throughout Psych Mood & Affect: anxious MDM MDM MDM Narrative Medical decision making narrative: Patient is having anxiety reaction due to results of skin biopsy. Patient was treated with Ativan and given a short course of Ativan. Discharge Plan Triage Chief Complaint: Anxiety Other Complaint: Shortness of Breath ED Provider: Nilay Granados Dx/Rx/DC Orders Clinical Impression: Anxiety reaction Instructions: ED Anxiety Reaction Prescriptions: New lorazepam [Ativan] 0.5 mg tablet 0.5 mg PO TID PRN (Reason: anxiety) Qty: 10 RF: 0 No Action acetaminophen 325 MG tablet 1,000 mg PO TID PRN (Reason: Pain Score 1-10/Temp > 100.7 F) Qty: 1 RF: 0 nabumetone 500 MG tablet 500 mg PO BID RF: 0 tizanidine 4 MG capsule 4 mg PO Q8H PRN PRN (Reason: Muscle Spasm) RF: 0 Mirena 20 mcg/24 hours (6 yrs) 52 mg Intrauterine Device 20 mcg INTRAUTERINE DAILY RF: 0 Primary Care Provider: Rodrigo Rasmussen NP Referrals: Blaz,Rodrigo CHILD DEVELOPMENT CONSULTANT, CHILD DEVELOPMENT CONSULTANT-C [Primary Care Provider] - Disposition Disposition: Home, self care
[2020-12-07] MEDS: LORazepam 0.5 MG Tablet PO (23:52)
== END 2020-12-08 01:30 | disposition home or self-care (01) ==
LOC: ED 12-08 00:08
PROVIDERS: Emergency Provider Emergency Medicine; PCP Nurse Practitioner Family
DX: F41.1 Generalized anxiety disorder (principal); F90.9 Attention-deficit hyperactivity disorder, unspecified type; F17.200 Nicotine dependence, unspecified, uncomplicated; Z79.899 Other long term (current) drug therapy
CPT/HCPCS: 99283

== ENCOUNTER 2020-12-13 22:37 | Emergency (ER) | payer MEDICAID, SELFPAY ==
[2020-12-13 22:38] VITALS: BP 122/79; PULSE 104; RESP 16; TEMP 36.2; O2SAT 99; BMI 27.5
--- NOTE | 2020-12-13 22:51 | EKG12_ITS ---
Test Reason : GENERAL Blood Pressure : / mmHG Vent. Rate : 079 BPM Atrial Rate : 079 BPM P-R Int : 124 ms QRS Dur : 126 ms QT Int : 388 ms P-R-T Axes : 040 064 028 degrees QTc Int : 444 ms Normal sinus rhythm Right bundle branch block Abnormal ECG Confirmed by OTF EPPS, VINCE ([id number]), food expeditor LAURA GU ([id number]) on 12/15/2020 9:45:29 AM Referred By: ASHVIN Confirmed By:VINCE VANESSA MD
--- NOTE | 2020-12-13 22:51 | RAD_ITS ---
STUDY: X-RAY CHEST REASON FOR EXAM: Female, 25 years old. dyspnea TECHNIQUE: Single AP portable view of the chest. COMPARISON: 12/13/2019 FINDINGS: The lungs are clear and expanded. There is no demonstrated pleural abnormality. Normal size heart. Normal mediastinum and giulia. Normal visualized pulmonary arteries. Normal visualized aortic arch and descending thoracic aorta. Normal visualized thoracic spine. Normal visualized ribs, clavicles, and shoulders. There is no demonstrated abnormality of the visualized soft tissue structures of the upper abdomen. RAD/Chest 1 View (Portable) IMPRESSION: Normal x-ray examination of the chest. Electronically Signed: Brandon Webb DO at 23:38 EDT Tel , Service support ,
--- NOTE | 2020-12-13 22:54 | EDS_ITS ---
HPI History of Present Illness Chief Complaint: General Illness Detail of Chief Complaint: Patient complaints of shortness of breath and fatigue for at least 5 days. Informant: patient Narrative Narrative: Patient with multiple complaints. Presents today with chest pain that is pleuritic and shortness of breath. She complains of fatigue with minimal activity. She states that she has had to call off work because of the fatigue. She was seen in the ER 5 days ago and diagnosed with anxiety and started on lorazepam. Patient states she does not like to take lorazepam but does not feel like it is helping her. She denies recent travel or surgery. No history of PE or DVT. She is on the Mirena. Patient recently diagnosed with a basal cell carcinoma on her scalp that she is going to have a Mohs procedure for in December. [facility] Medical History ADHD Lower back pain Skin cancer Home Medications acetaminophen 1,000 mg PO TID PRN #1 tab 03/11/20 [Rx Last Taken Unknown] nabumetone 500 mg PO BID 04/18/20 [History Last Taken Unknown] tizanidine 4 mg PO Q8H PRN PRN 04/18/20 [History Last Taken Unknown] levonorgestrel [Mirena] 20 mcg INTRAUTERINE DAILY 12/07/20 [History Last Taken Unknown] lorazepam [Ativan] 0.5 mg PO TID PRN #10 tab 12/07/20 [Rx Last Taken Unknown] Allergy/AdvReac Type Severity Reaction Status Date / Time cetirizine [From [facility]] Allergy difficulty Verified 12/07/20 23:11 breathing, racing heart Social History (Updated 12/07/20 @ 23:[address] Nilay Granados MD) Smoking Status: Current every day smoker details: Occasionally substance use type: does not use ROS ROS ED Constitutional Constitutional ED: Reports systems reviewed and no addt'l complaints, except as documented and other Details: Fatigue ; Denies body ache(s), change in weight or chills Eyes Eyes: Denies acute decrease in peripheral vision, change in vision, double vision or loss of vision ENT ENT ED: Reports none; Denies ear pain, lip swelling, loss taste/smell, neck pain, otalgia or sore throat Cardiovascular Cardiovascular: Reports none; Denies abdominal pain, chest pain with activity, leg edema, lightheadedness, palpitations, rapid heart rate or syncope Respiratory/Chest Respiratory/Chest: Reports none and dyspnea; Denies change in mental status, dry cough, hemoptysis, shortness of breath at rest or shortness of breath with exertion Gastrointestinal Gastrointestinal: Reports none; Denies abdominal pain, change in stool character, diarrhea, hematemesis, hematochezia, melena, rectal bleeding or vomiting Genitourinary Genitourinary ED: Reports none; Denies abdominal discomfort, anuria, dysuria, genital pain or polyuria Musculoskeletal Musculoskeletal: Reports none; Denies arthralgias, back pain, difficulty walking, extremity pain, muscle weakness or myalgias Integumentary Reports none; Denies abscess or rash Neurologic Neurologic: Reports none and paresthesias; Denies abnormal gait, confusion, focal weakness, frequent falls, headache(s), loss of vision, numbness, radicular pain, vertigo or weakness Psychiatric Psychiatric: Reports systems reviewed and no addt'l complaints, except as documented and none; Denies behavioral changes, confusion, difficulty concentrating, hallucinations, suicidal ideation, tactile hallucinations or visual hallucinations Endocrine Endocrinology: Denies none, cold intolerance, excessive sweating, fatigue or heat intolerance Hematologic/Lymphatic Hematologic/Lymphatic: Reports none; Denies anemia, easy bleeding or easy bruising Allergic/Immunologic Allergic/Immunologic ED: Denies as per HPI, none, lip swelling, mouth swelling, throat swelling, tongue swelling or hives EXAM Physical Exam Const Vital Signs: 12/13/20 22:38 12/13/20 23:11 Temperature 97.1 F L Temperature Source Temporal Pulse Rate 104 H Respiratory Rate 16 Respiratory Effort Normal Respiratory Pattern Normal Blood Pressure 122/79 H Blood Pressure Mean 93 Pulse Ox 99 Oxygen Delivery Method Room Air Positive well nourished and well developed General Appearance ED: well developed and NAD HEENT Reports TM's clear and moist mucous membranes normocephalic and atraumatic; Negative for trauma or tenderness Tympanic Membrane ED: Yes TM's clear Eyes PERRL and EOMs intact bilaterally General Eye ED: Negative for pale conjunctiva or scleral icterus Neck no lymphadenopathy, supple and no JVD General: Negative for tenderness Chest Wall inspection of chest normal and palpation of chest normal Chest: Negative for tenderness Resp normal respiratory effort and clear to auscultation bilaterally Effort and Inspection: Negative for respiratory distress or pain with movement Auscultation: Negative for rhonchi, wheezes or diminished lung sounds Cardio regular rate, regular rhythm, S1 normal heart sound, S2 normal heart sound and no murmurs Peripheral Pulses: pulses 2+ throughout GI normal to inspection, nondistended, normoactive bowel sounds, soft to palpation, non-tender, non-distended and no masses Back/Spine no CVA tenderness and no thoracic nor lumbar tenderness Extremity normal to inspection General Extremety ED: Negative for edema General Extremity: Negative for edema Neuro oriented x3, CN's II-XII intact bilaterally, no sensory deficits noted and gait normal Sensorium / Orientation: awake, alert, oriented to person, oriented to place and oriented to time Motor Exam: strength 5/5 throughout and strength abnormal Psych mental status grossly normal Skin no rashes or lesions noted and no wounds MDM MDM MDM Narrative Medical decision making narrative: Patient with multiple complaints. Essentially negative work-up in the department. At this point she is advised to follow-up with her primary care physician within next 3 to 5 days. Lab Data Labs: Laboratory Results - last 24 hr 12/13/20 12/13/20 12/13/20 23:00 23:05 23:05 WBC 7.5 RBC 4.23 Hgb 13.2 Hct 37.8 MCV 89.4 MCH 31.2 MCHC 34.9 RDW Std Deviation 39.5 RDW Coeff of Clarence 12.1 Plt Count 275 MPV 9.4 Immature Gran % (Auto) 0.400 Neut % (Auto) 53.8 Lymph % (Auto) 37.3 Hampton % (Auto) 6.4 Eos % (Auto) 1.7 Baso % (Auto) 0.4 Absolute Neuts (auto) 4.0 Absolute Lymphs (auto) 2.79 Nucleated RBC % 0 D-Dimer Quant (PE/DVT) 0.36 Sodium Potassium Chloride Carbon Dioxide Anion Gap BUN Creatinine Estim Creat Clear Calc Est GFR (MDRD) Af Amer Est GFR (MDRD) Non-Af BUN/Creatinine Ratio Glucose Calcium TSH Serum , Qual Urine Color Yellow Urine Clarity Clear Urine pH 6.0 Ur Specific E[place]kine 1.020 Urine Protein 30 H Urine Glucose (UA) Normal Urine Ketones 15 H Urine Occult Blood 25 H Urine Nitrite Negative Urine Bilirubin Negative Urine Urobilinogen 1 H Ur Leukocyte Esterase 100 H Urine RBC 0-5 SEEN Urine WBC 5-10 SEEN Ur Squamous Epith Cells 0-5 SEEN Urine Bacteria 1+ Urine Mucus RARE 12/13/20 12/13/20 12/13/20 23:05 23:05 23:05 WBC RBC Hgb Hct MCV MCH MCHC RDW Std Deviation RDW Coeff of Clarence Plt Count MPV Immature Gran % (Auto) Neut % (Auto) Lymph % (Auto) Hampton % (Auto) Eos % (Auto) Baso % (Auto) Absolute Neuts (auto) Absolute Lymphs (auto) Nucleated RBC % D-Dimer Quant (PE/DVT) Sodium 138 Potassium 3.4 L Chloride 108 H Carbon Dioxide 24.0 Anion Gap 6 BUN 10 Creatinine 0.79 Estim Creat Clear Calc 104.02 Est GFR (MDRD) Af Amer 112 Est GFR (MDRD) Non-Af 92 BUN/Creatinine Ratio 12.6 Glucose 113 H Calcium 8.8 TSH 0.52 Serum , Qual NEGATIVE Urine Color Urine Clarity Urine pH Ur Specific [place] Urine Protein Urine Glucose (UA) Urine Ketones Urine Occult Blood Urine Nitrite Urine Bilirubin Urine Urobilinogen Ur Leukocyte Esterase Urine RBC Urine WBC Ur Squamous Epith Cells Urine Bacteria Urine Mucus Radiography Chest X-Ray - ED: 1 View Diagnostic Testing: Radiology Impression Chest X-Ray 12/13/20 22:51 IMPRESSION: Normal x-ray examination of the chest. Electronically Signed: Brandon Webb DO at 23:38 EDT Tel , Service support , 1 view chest x-ray obtained interpreted by myself as no acute disease process without evidence of infiltrate or pneumothorax. Radiology in agreement. EKG Initial EKG: Comments: Sinus rhythm with a ventricular rate of 79 bpm with a right bundle branch block Prior EKG tracings: available for review Prior: Unchanged Discharge Plan Triage Chief Complaint: General Illness ED Provider: Julián Ngo Dx/Rx/DC Orders Clinical Impression: Dyspnea, Fatigue Instructions: ED Dyspnea, ED Weakness (Uncertain Cause) Prescriptions: No Action acetaminophen 325 MG tablet 1,000 mg PO TID PRN (Reason: Pain Score 1-10/Temp > 100.7 F) Qty: 1 RF: 0 nabumetone 500 MG tablet 500 mg PO BID RF: 0 tizanidine 4 MG capsule 4 mg PO Q8H PRN PRN (Reason: Muscle Spasm) RF: 0 Mirena 20 mcg/24 hours (6 yrs) 52 mg Intrauterine Device 20 mcg INTRAUTERINE DAILY RF: 0 lorazepam [Ativan] 0.5 mg tablet 0.5 mg PO TID PRN (Reason: anxiety) Qty: 10 RF: 0 Primary Care Provider: Rodrigo Rasmussen NP Referrals: Rodrigo Rasmussen NP, LANDSCAPE MANAGER-C [Primary Care Provider] - 3-5 Days Disposition Disposition: Home, self care
[2020-12-13] MEDS: 0.9% Normal Saline 1,000 ML 150 ML IV (23:16)
[2020-12-13 23:20] LABS: Color, Urine Yellow (Yellow); Glucose, Dipstick Normal (Normal); Ketone-Dipstick 15 mg/dl (Negative); Leukocyte Esterase-Dipstick 100 /ul (Negative); Nitrite-Dipstick Negative (Negative); Occult Blood-Urine 25 /ul (Negative); Protein-Dipstick 30 mg/dl (Negative); Urine Bilirubin Dipstick Negative (Negative); Urine Clarity Clear (Clear); Urine Urobilinogen 1 mg/dl (Normal)
[2020-12-13 23:24] LABS: D-Dimer Quantitative (DVT/PE) 0.36 FEU/ug/m (0.27-0.49)
[2020-12-13 23:27] LABS: Anion Gap 6 (5-15); BUN 10 mg/dL (7-18); BUN/Creat Ratio 12.6 RATIO (10-20); Calcium,Total 8.8 mg/dL (8.5-10.1); Chloride 108 mmol/L (98-107); Creatinine, Serum 0.79 mg/dL (0.55-1.02); EST Glomerular Filtration Rate 92 mL/min (>60); Est Glom Filt Rate - Afr Amer 112 mL/min (>60); Estimated Creatinine Clearance 104.02 ml/min; Glucose 113 mg/dL (74-106); Potassium 3.4 mmol/L (3.5-5.1); Sodium Level 138 mmol/L (136-145)
[2020-12-13 23:28] LABS: Internal QC Validated? YES +Cl - CLEAR BKGD; Pregnancy, Serum, hCG Quali. NEGATIVE Negative
[2020-12-13 23:31] LABS: Bacteria 1+ /hpf (None Seen); Red Blood Cells-Urine 0-5 SEEN /hpf (0-5); Squamous Epithelial Cells - UA 0-5 SEEN /hpf (5-10); White Blood Cells 5-10 SEEN /hpf (0-5)
[2020-12-13 23:32] LABS: Mucous, Urine RARE /hpf (<or=2+)
[2020-12-13 23:32] LABS: Absolute Lymphocyte Count 2.79 X10^3/uL (0.83-4.51); Basophil# 0.03 X10^3/uL; Basophil% 0.4 % (0-1); Eosinophil# 0.13 X10^3/uL; Eosinophils% 1.7 % (0-5); Hematocrit 37.8 % (37-47); Hemoglobin 13.2 g/dL (12.0-15.0); Lymphocyte # 2.79 X10^3/ul (0.83-4.51); Lymphocyte % 37.3 % (19-41); Mean Corp Hgb Conc 34.9 g/dL (32-36); Mean Corpuscular Hgb 31.2 pg (27.0-32.0); Mean Corpuscular Volume 89.4 fL (81-99); Mean Platelet Vol. 9.4 fl (6.2-12.0); Monocyte# 0.48 X10^3/uL; Monocyte% 6.4 % (0-10); NRBC Flagged by Analyzer 0 % (0-5); Neutrophil # 4.02 X10^3/uL (2.7-7.7); Neutrophil % 53.8 % (47-70); Platelet Count 275 K/mm3 (150-450); RBC Distribution Width CV 12.1 % (11.6-14.6); RBC Distribution Width SD 39.5 fl (35.1-43.9); Red Blood Count 4.23 M/mm3 (4.2-5.4); White Blood Count 7.5 K/mm3 (4.4-11.0)
[2020-12-13 23:41] LABS: Thyroid Stim Hormone (TSH) 0.52 uIU/mL (0.358-3.74)
[2020-12-14 00:50] VITALS: BP 105/63; PULSE 79; RESP 19; O2SAT 99
== END 2020-12-14 00:51 | disposition home or self-care (01) ==
PROVIDERS: Emergency Provider Emergency Medicine; PCP Nurse Practitioner Family
DX: R06.00 Dyspnea, unspecified (principal); R53.83 Other fatigue; F41.9 Anxiety disorder, unspecified; F17.200 Nicotine dependence, unspecified, uncomplicated; Z79.899 Other long term (current) drug therapy
CPT/HCPCS: 71045; 80048; 81001; 84443; 84703; 85025; 85379; 93005; 96360; 96361; 99284; J7030; A4216

== ENCOUNTER 2020-12-18 02:12 | Emergency (ER) | payer MEDICAID, SELFPAY ==
[2020-12-18 02:18] VITALS: BP 110/65; PULSE 84; RESP 16; TEMP 36.6; O2SAT 99; BMI 28.5
--- NOTE | 2020-12-18 02:33 | EKG12_ITS ---
Test Reason : ANXIETY Blood Pressure : / mmHG Vent. Rate : 079 BPM Atrial Rate : 079 BPM P-R Int : 126 ms QRS Dur : 124 ms QT Int : 388 ms P-R-T Axes : 044 076 046 degrees QTc Int : 444 ms Normal sinus rhythm Right bundle branch block Abnormal ECG Confirmed by FOUZIA EPPS, PRANAV ([id number]), publications editor LAURA GU ([id number]) on 12/21/2020 1:45:37 PM Referred By: RACHEL Confirmed By:PRANAV FRAGOSO MD
[2020-12-18 02:42] LABS: Absolute Lymphocyte Count 3.61 X10^3/uL (0.83-4.51); Absolute Neutrophil Count 3.3 X10^3/uL (2.0-7.7); Basophil# 0.04 X10^3/uL; Basophil% 0.5 % (0-1); Eosinophils% 3.8 % (0-5); Hematocrit 39.7 % (37-47); Hemoglobin 13.8 g/dL (12.0-15.0); Lymphocyte # 3.61 X10^3/ul (0.83-4.51); Lymphocyte % 45.6 % (19-41); Mean Corp Hgb Conc 34.8 g/dL (32-36); Mean Corpuscular Hgb 31.6 pg (27.0-32.0); Mean Corpuscular Volume 90.8 fL (81-99); Mean Platelet Vol. 9.5 fl (6.2-12.0); Monocyte# 0.61 X10^3/uL; Monocyte% 7.7 % (0-10); NRBC Flagged by Analyzer 0 % (0-5); Neutrophil # 3.34 X10^3/uL (2.7-7.7); Neutrophil % 42.1 % (47-70); Platelet Count 295 K/mm3 (150-450); RBC Distribution Width CV 11.8 % (11.6-14.6); RBC Distribution Width SD 39.1 fl (35.1-43.9); Red Blood Count 4.37 M/mm3 (4.2-5.4); White Blood Count 7.9 K/mm3 (4.4-11.0)
[2020-12-18 02:50] LABS: Internal QC Validated? YES +Cl - CLEAR BKGD; Pregnancy, Serum, hCG Quali. NEGATIVE Negative
--- NOTE | 2020-12-18 02:50 | EDS_ITS ---
HPI History of Present Illness Chief Complaint: Anxiety Informant: patient Onset/Context/Timing Onset: Weeks Context: Gradual Onset Timing: Waxes and wanes Narrative Narrative: Patient presents secondary to multiple complaints. Patient has been seen in this ER twice in the last couple weeks for similar. She initially was seen after finding out that she had basal cell carcinoma on her scalp. It was felt that she was having an anxiety reaction and was treated with lorazepam. Patient presented back here several days later stating that her symptoms were not improving and she did not feel like she was having anxiety. She would be complaining of intermittent lightheadedness and dizziness, chest tightness, shortness of breath. She had work-up in the emergency room that was unremarkable including a negative D-dimer. Patient states that she has seen her PCP a few times and he believed it was anxiety as well. Patient states that she was driving earlier today and suddenly became lightheaded and fuzzy. She states she would look in the rearview mirror in her vision but seem to go in and out. 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 She states she felt like her face was lam and her hands were lam in a clawlike fashion. Once this occurred she states she did become anxious and was able to call 911. She was given oxygen and taken to [facility] emergency room where she had work-up that was unremarkable and she was discharged home. Patient states tonight she called the on-call nurse to make an appointment to see her doctor tomorrow. When she described what was happening she states the nurse advised she should have had MRIs done and sent her back to the emergency room. Patient voices concern about living alone and having these episodes occur. She does not feel like this is a panic attack or anxiety reaction. [facility] Medical History ADHD Lower back pain Skin cancer Home Medications acetaminophen 1,000 mg PO TID PRN #1 tab 03/11/20 [Rx Last Taken Unknown] nabumetone 500 mg PO BID 04/18/20 [History Last Taken Unknown] tizanidine 4 mg PO Q8H PRN PRN 04/18/20 [History Last Taken Unknown] levonorgestrel [Mirena] 20 mcg INTRAUTERINE DAILY 12/07/20 [History Last Taken Unknown] lorazepam [Ativan] 0.5 mg PO TID PRN #10 tab 12/07/20 [Rx Last Taken Unknown] buspirone 5 mg PO BID 12/18/20 [History Last Taken Unknown] Allergy/AdvReac Type Severity Reaction Status Date / Time cetirizine [From [facility]] Allergy difficulty Verified 12/18/20 02:22 breathing, racing heart Social History Smoking Status: Current every day smoker tobacco type: cigarettes details: Occasionally substance use type: does not use ROS ROS ED Constitutional Constitutional ED: Denies chills or fever(s) Eyes Eyes: Reports change in vision ENT ENT ED: Reports sore throat Cardiovascular Cardiovascular: Reports chest pain Respiratory/Chest Respiratory/Chest: Reports dyspnea; Denies cough Gastrointestinal Gastrointestinal: Denies abdominal pain, diarrhea, nausea or vomiting Genitourinary Genitourinary ED: Denies dysuria Musculoskeletal Musculoskeletal: Denies back pain Integumentary Denies rash Neurologic Neurologic: Denies headache(s) or weakness Psychiatric Psychiatric: Denies anxiety or depression Endocrine Endocrinology: Denies polydipsia or polyuria Allergic/Immunologic Allergic/Immunologic ED: Denies urticaria EXAM Physical Exam Const Vital Signs: 12/18/20 02:18 12/18/20 04:26 12/18/20 05:40 Temperature 98 F Temperature Source Temporal Pulse Rate 84 79 Respiratory Rate 16 16 Blood Pressure 110/65 115/74 91/58 L Blood Pressure Mean 80 87 69 Pulse Ox 99 Oxygen Delivery Method Room Air Positive well nourished and well developed General Appearance ED: well developed HEENT Reports normocephalic and head/scalp atraumatic Eyes PERRL and EOMs intact bilaterally Neck supple Chest Wall inspection of chest normal and palpation of chest normal Resp normal respiratory effort and clear to auscultation bilaterally Cardio regular rate and regular rhythm GI normal to inspection, nondistended, normoactive bowel sounds Palpation: soft Extremity normal to inspection Neuro oriented x3 and no sensory deficits noted Sensorium / Orientation: alert Motor Exam: strength 5/5 throughout Psych mental status grossly normal MDM MDM MDM Narrative Medical decision making narrative: Patient was placed on radiographer cardiac catheterization. Blood work and EKG are obtained. Lab Data Attestation: I reviewed the patient's lab results. Labs: Laboratory Results - last 24 hr 12/18/20 12/18/20 12/18/20 02:25 02:25 02:25 WBC 7.9 RBC 4.37 Hgb 13.8 Hct 39.7 MCV 90.8 MCH 31.6 MCHC 34.8 RDW Std Deviation 39.1 RDW Coeff of Clarence 11.8 Plt Count 295 MPV 9.5 Immature Gran % (Auto) 0.300 Neut % (Auto) 42.1 L Lymph % (Auto) 45.6 H Jenkins % (Auto) 7.7 Eos % (Auto) 3.8 Baso % (Auto) 0.5 Absolute Neuts (auto) 3.3 Absolute Lymphs (auto) 3.61 Nucleated RBC % 0 D-Dimer Quant (PE/DVT) <= 0.27 Sodium 141 Potassium 3.9 Chloride 112 H Carbon Dioxide 24.0 Anion Gap 5 BUN 12 Creatinine 0.69 Estim Creat Clear Calc 119.10 Est GFR (MDRD) Af Amer 131 Est GFR (MDRD) Non-Af 108 BUN/Creatinine Ratio 17.4 Glucose 76 Calcium 9.1 Serum , Qual 12/18/20 02:25 WBC RBC Hgb Hct MCV MCH MCHC RDW Std Deviation RDW Coeff of Clarence Plt Count MPV Immature Gran % (Auto) Neut % (Auto) Lymph % (Auto) Jenkins % (Auto) Eos % (Auto) Baso % (Auto) Absolute Neuts (auto) Absolute Lymphs (auto) Nucleated RBC % D-Dimer Quant (PE/DVT) Sodium Potassium Chloride Carbon Dioxide Anion Gap BUN Creatinine Estim Creat Clear Calc Est GFR (MDRD) Af Amer Est GFR (MDRD) Non-Af BUN/Creatinine Ratio Glucose Calcium Serum , Qual NEGATIVE EKG Initial EKG: Attestation: I personally reviewed and interpreted this EKG as follows: Interpretation: Sinus Rhythm (Sinus at 79. Right bundle branch block. No acute ischemia. Unchanged when compared to prior study of 12/13/2020.) Prior EKG tracings: available for review Prior: Unchanged Treatment and Re-Evaluation Comments:: Patient has been observed on radiographer cardiac catheterization throughout the night. No significant abnormalities noted. I did speak with Dr. López this morning, on-call for [facility]. We went through her presentation and prior work-ups. It is a holiday weekend and Dr. López feels patient will need to be seen on Sunday when they can sit down and take time to go through all of these complaints and ensure that appropriate work-up is ordered. I will ask her to call the office today to have that appointment scheduled. Discharge Plan Triage Chief Complaint: Anxiety ED Provider: Aliyah Peters Dx/Rx/DC Orders Clinical Impression: Fatigue, Dyspnea Instructions: ED Dyspnea, ED Hyperventilation Syndrome Prescriptions: No Action acetaminophen 325 MG tablet 1,000 mg PO TID PRN (Reason: Pain Score 1-10/Temp > 100.7 F) Qty: 1 RF: 0 nabumetone 500 MG tablet 500 mg PO BID RF: 0 tizanidine 4 MG capsule 4 mg PO Q8H PRN PRN (Reason: Muscle Spasm) RF: 0 Mirena 20 mcg/24 hours (6 yrs) 52 mg Intrauterine Device 20 mcg INTRAUTERINE DAILY RF: 0 lorazepam [Ativan] 0.5 mg tablet 0.5 mg PO TID PRN (Reason: anxiety) Qty: 10 RF: 0 buspirone 5 mg tablet 5 mg PO BID RF: 0 Primary Care Provider: Rodrigo Rasmussen NP Referrals: Rodrigo Rasmussen MANAGER CORPORATE, MANAGER CORPORATE-C [Primary Care Provider] - 3-5 Days Activity Restrictions/Additional Instructions: I spoke with Dr. López and reviewed your presentation and work-ups. She would like you to be seen on Sunday where they can sit down and take time to work through your symptoms and ensure that appropriate work-up is ordered. Please call the office today to make an appointment for Sunday. Disposition Disposition: Home, self care
[2020-12-18 02:51] LABS: D-Dimer Quantitative (DVT/PE) <= 0.27 FEU/ug/m (0.27-0.49)
[2020-12-18 02:54] LABS: Anion Gap 5 (5-15); BUN 12 mg/dL (7-18); BUN/Creat Ratio 17.4 RATIO (10-20); Calcium,Total 9.1 mg/dL (8.5-10.1); Chloride 112 mmol/L (98-107); Creatinine, Serum 0.69 mg/dL (0.55-1.02); EST Glomerular Filtration Rate 108 mL/min (>60); Est Glom Filt Rate - Afr Amer 131 mL/min (>60); Glucose 76 mg/dL (74-106); Potassium 3.9 mmol/L (3.5-5.1); Sodium Level 141 mmol/L (136-145)
[2020-12-18 04:26] VITALS: BP 115/74
[2020-12-18 05:40] VITALS: BP 91/58; PULSE 79; RESP 16
[2020-12-18 06:49] VITALS: BP 101/62; PULSE 81; RESP 18; O2SAT 97
== END 2020-12-18 06:49 | disposition home or self-care (01) ==
PROVIDERS: Emergency Provider Emergency Medicine; PCP Nurse Practitioner Family
DX: R53.83 Other fatigue (principal); R06.00 Dyspnea, unspecified; F17.210 Nicotine dependence, cigarettes, uncomplicated; Z79.899 Other long term (current) drug therapy
CPT/HCPCS: 80048; 84703; 85025; 85379; 93005; 99284; A4216

== ENCOUNTER 2020-12-28 14:04 | Emergency (ER) | payer MEDICAID, SELFPAY ==
[2020-12-28 14:05] VITALS: BP 122/70; PULSE 89; RESP 16; TEMP 36; O2SAT 100; BMI 27.6
--- NOTE | 2020-12-28 14:24 | EX.ED.DYSGE1 ---
HPI History of Present Illness Chief Complaint: Other, Pain/Inj Informant: patient Narrative Narrative: Patient is a 25-year-old female who presents to the emergency department for tender lymph nodes in her neck. This has been present over the past 6 months. It worse in the recent past couple of days. She states that she had a Mohs surgery on her scalp this past Sunday. She denies a sore throat. They are very tender to the touch. She has been taking Tylenol for them which has not been giving much relief. She has talked to her PCP about this who has not done much for it. She does have ear pain bilaterally. No sinus pain. She denies a cough or chest pain/shortness of breath currently. No rashes. PFSH PFS Medical History ADHD Lower back pain Skin cancer Home Medications acetaminophen 1,000 mg PO TID PRN #1 tab 03/11/20 [Rx Last Taken Unknown] nabumetone 500 mg PO BID 04/18/20 [History Last Taken Unknown] tizanidine 4 mg PO Q8H PRN PRN 04/18/20 [History Last Taken Unknown] levonorgestrel [Mirena] 20 mcg INTRAUTERINE DAILY 12/07/20 [History Last Taken Unknown] lorazepam [Ativan] 0.5 mg PO TID PRN #10 tab 12/07/20 [Rx Last Taken Unknown] buspirone 5 mg PO BID 12/18/20 [History Last Taken Unknown] naproxen [Naprosyn] 500 mg PO BID PRN #20 tab 12/28/20 [Rx Last Taken Unknown] Allergy/AdvReac Type Severity Reaction Status Date / Time cetirizine [From [facility]] Allergy difficulty Verified 12/28/20 14:06 breathing, racing heart Social History Smoking Status: Current every day smoker tobacco type: cigarettes details: Occasionally substance use type: does not use ROS ROS ED Constitutional Constitutional ED: Denies chills or fever(s) Eyes Eyes: Denies change in vision ENT ENT ED: Reports neck pain; Denies epistaxis, rhinorrhea, sinus pressure, sore throat, throat swelling or tongue swelling Cardiovascular Cardiovascular: Denies chest pain or palpitations Respiratory/Chest Respiratory/Chest: Denies cough, dyspnea or dyspnea on exertion Gastrointestinal Gastrointestinal: Denies abdominal pain, diarrhea, nausea or vomiting Musculoskeletal Musculoskeletal: Denies back pain or neck pain Integumentary Denies rash Neurologic Neurologic: Denies dizziness, headache(s) or weakness EXAM Physical Exam Const Vital Signs: 12/28/20 14:05 Temperature 96.8 F L Temperature Source Temporal Pulse Rate 89 Respiratory Rate 16 Blood Pressure 122/70 H Blood Pressure Mean 87 Pulse Ox 100 Oxygen Delivery Method Room Air Positive well nourished and well developed General Appearance ED: well developed and NAD HEENT Reports normocephalic, head/scalp atraumatic, TM's clear and moist mucous membranes HEENT Narrative: Tender cervical lymphadenopathy mostly behind the mandible. No significant unilateral enlargement. She does have multiple dental caries. No tonsillar abscess. Clear oropharynx. No overlying skin changes. Surgical site at the top of the scalp appears to be clean dry and intact. Tympanic Membrane ED: Yes TM's clear Eyes PERRL and EOMs intact bilaterally Neck supple Resp normal respiratory effort and clear to auscultation bilaterally Auscultation: Negative for rales, rhonchi or wheezes Cardio regular rate, regular rhythm and no murmurs Extremity normal to inspection General Extremety ED: Negative for edema General Extremity: Negative for edema Neuro oriented x3, CN's II-XII intact bilaterally and no sensory deficits noted Sensorium / Orientation: alert Motor Exam: strength 5/5 throughout Psych mental status grossly normal Skin no rashes or lesions noted MDM MDM MDM Narrative Medical decision making narrative: Patient presents to the emergency department for enlarged, painful lymph nodes in her neck. This has been an ongoing issue but acutely worsened. No obvious acute infection seen on physical exam. She does have some dental caries which could be contributing to this. Recommend anti-inflammatories, warm compresses. Low concern for cancer as these are not very enlarged, unilateral, firm, painless or immobile. She is to follow-up with her dentist as well as PCP. This is been going on for multiple months we will hold off on any antibiotics. Return precautions are reviewed with her. She understands and is agreeable to plan. Discharged home in stable condition. All questions are answered. Discharge Plan Triage Chief Complaint: Other, Pain/Inj ED Provider: Baljeet Whipple Dx/Rx/DC Orders Clinical Impression: Swelling of lymph nodes Instructions: ED Adenitis Cervical No Abx Tx Prescriptions: New naproxen [Naprosyn] 500 mg tablet 500 mg PO BID PRN (Reason: pain) Qty: 20 RF: 0 No Action acetaminophen 325 MG tablet 1,000 mg PO TID PRN (Reason: Pain Score 1-10/Temp > 100.7 F) Qty: 1 RF: 0 nabumetone 500 MG tablet 500 mg PO BID RF: 0 tizanidine 4 MG capsule 4 mg PO Q8H PRN PRN (Reason: Muscle Spasm) RF: 0 Mirena 20 mcg/24 hours (6 yrs) 52 mg Intrauterine Device 20 mcg INTRAUTERINE DAILY RF: 0 lorazepam [Ativan] 0.5 mg tablet 0.5 mg PO TID PRN (Reason: anxiety) Qty: 10 RF: 0 buspirone 5 mg tablet 5 mg PO BID RF: 0 Primary Care Provider: Rodrigo Rasmussen NP Referrals: Rodrigo Rasmussen NP, LAND LEASING EXAMINER-C [Primary Care Provider] - 3-5 Days if not improving Disposition Disposition: Home, self care
== END 2020-12-28 14:37 | disposition home or self-care (01) ==
LOC: ED 14:30
PROVIDERS: Emergency Provider Emergency Medicine; PCP Nurse Practitioner Family
DX: R59.0 Localized enlarged lymph nodes (principal); F90.9 Attention-deficit hyperactivity disorder, unspecified type; F17.210 Nicotine dependence, cigarettes, uncomplicated; Z79.899 Other long term (current) drug therapy
CPT/HCPCS: 99282

== ENCOUNTER 2021-07-14 21:16 | Emergency (ER) | payer MEDICAID, SELFPAY ==
[2021-07-14 21:17] VITALS: BP 93/61; PULSE 89; RESP 15; TEMP 36.4; O2SAT 99; BMI 25.8
[2021-07-14] MEDS: Orphenadrine 60 MG/2 ML Ampul IM (22:31)
[2021-07-14] MEDS: predniSONE 20 MG Tablet 60 MG PO (22:31)
--- NOTE | 2021-07-14 22:34 | ED.VIS.BACK ---
HPI History of Present Illness Chief Complaint: Back Narrative Narrative: [facility] Medical History ADHD Lower back pain Skin cancer Home Medications acetaminophen 1,000 mg PO TID PRN #1 tab 03/11/20 [Rx Last Taken Unknown] nabumetone 500 mg PO BID 04/18/20 [History Last Taken Unknown] tizanidine 4 mg PO Q8H PRN PRN 04/18/20 [History Last Taken Unknown] levonorgestrel [Mirena] 20 mcg INTRAUTERINE DAILY 12/07/20 [History Last Taken Unknown] naproxen [Naprosyn] 500 mg PO BID PRN #20 tab 12/28/20 [Rx Last Taken Unknown] citalopram [Celexa] 20 mg PO DAILY 07/14/21 [History Last Taken Unknown] dextroamphetamine-amphetamine 40 mg PO DAILY 07/14/21 [History Last Taken Unknown] prednisone 50 mg PO DAILY 5 Days #25 tab 07/14/21 [Rx Last Taken Unknown] tizanidine [Zanaflex] 4 mg PO Q8H PRN #20 tab 07/14/21 [Rx Last Taken Unknown] Allergy/AdvReac Type Severity Reaction Status Date / Time cetirizine [From [facility]] Allergy difficulty Verified 07/14/21 21:19 breathing, racing heart Social History Smoking Status: Current every day smoker tobacco type: cigarettes details: Occasionally substance use type: does not use ROS ROS ED Constitutional Constitutional ED: Denies chills or fever(s) Eyes Eyes: Denies blurry vision or change in vision ENT ENT ED: Denies rhinorrhea or sore throat Cardiovascular Cardiovascular: Denies chest pain or palpitations Respiratory/Chest Respiratory/Chest: Denies dyspnea, dyspnea on exertion or sputum Gastrointestinal Gastrointestinal: Denies abdominal pain, nausea or vomiting Genitourinary Genitourinary ED: Denies dysuria or hematuria Musculoskeletal Musculoskeletal: Reports back pain; Denies myalgias Integumentary Denies rash Neurologic Neurologic: Denies headache(s) or weakness Psychiatric Psychiatric: Denies anxiety or depression EXAM Physical Exam Const Vital Signs: 07/14/21 21:17 12/23/21 22:45 Temperature 97.6 F L Temperature Source Temporal Pulse Rate 89 85 Respiratory Rate 15 16 Blood Pressure 93/61 136/82 H Blood Pressure Mean 71 Pulse Ox 99 98 Oxygen Delivery Method Room Air Positive well nourished General Appearance ED: NAD HEENT Reports moist mucous membranes Negative for trauma Eyes PERRL and EOMs intact bilaterally Resp normal respiratory effort and clear to auscultation bilaterally Cardio regular rate and regular rhythm GI normal to inspection, nondistended, normoactive bowel sounds Back/Spine Back/Spine Narrative: Tenderness palpation left lumbar paraspinal musculature. No midline spinal deformity or step-off. Neuro oriented x3 Sensorium / Orientation: alert Psych mental status grossly normal Skin no rashes or lesions noted MDM MDM MDM Narrative Medical decision making narrative: Patient states that she is out of her Zanaflex. She was given a 60 mg IM dose of Norflex and Toradol. She also stated that prednisone had helped her back pain in the past she was given an oral dose of this. Patient was given a prescription for prednisone burst and I refilled her Zanaflex for her today. Patient has no signs or symptoms of cauda equina syndrome. Patient is urged to continue to follow-up with her primary care physician at her previously scheduled visit. She is given return precautions. Impression: 1. Lumbar strain Discharge Plan Triage Chief Complaint: Back ED Provider: Prabhu Landon Dx/Rx/DC Orders Instructions: ED Back Spasm, No Trauma Prescriptions: New tizanidine [Zanaflex] 4 mg tablet 4 mg PO Q8H PRN (Reason: muscle spasticity) Qty: 20 RF: 0 prednisone 10 mg tablet 50 mg PO DAILY 5 Days Qty: 25 RF: 0 No Action acetaminophen 325 MG tablet 1,000 mg PO TID PRN (Reason: Pain Score 1-10/Temp > 100.7 F) Qty: 1 RF: 0 nabumetone 500 MG tablet 500 mg PO BID RF: 0 tizanidine 4 MG capsule 4 mg PO Q8H PRN PRN (Reason: Muscle Spasm) RF: 0 Mirena 20 mcg/24 hours (6 yrs) 52 mg Intrauterine Device 20 mcg INTRAUTERINE DAILY RF: 0 naproxen [Naprosyn] 500 mg tablet 500 mg PO BID PRN (Reason: pain) Qty: 20 RF: 0 citalopram [Celexa] 10 mg Tablet 20 mg PO DAILY RF: 0 dextroamphetamine-amphetamine 20 mg capsule,extended release 24hr 40 mg PO DAILY RF: 0 Primary Care Provider: Rodrigo Rasmussen NP Referrals: Rodrigo Rasmussen NP, HEAD NURSE-C [Primary Care Provider] - Disposition Disposition: Home, Self Care Discharge Date/Time: 07/14/21 23:08
[2021-07-14] MEDS: Ketorolac 15 MG/ML Vial IM (22:42)
[2021-07-14 22:45] VITALS: BP 136/82; PULSE 85; RESP 16; O2SAT 98
== END 2021-07-14 23:08 | disposition home or self-care (01) ==
PROVIDERS: Emergency Provider Student in an Organized Health Care Education/Training Program; PCP Nurse Practitioner Family
DX: S39.012A Strain of muscle, fascia and tendon of lower back, initial encounter (principal); X58.XXXA Exposure to other specified factors, initial encounter; Y93.9 Activity, unspecified; Y92.9 Unspecified place or not applicable; Y99.9 Unspecified external cause status; F90.9 Attention-deficit hyperactivity disorder, unspecified type; F17.210 Nicotine dependence, cigarettes, uncomplicated; Z79.899 Other long term (current) drug therapy
CPT/HCPCS: 96372; 96374; 99283

== ENCOUNTER 2021-07-15 19:28 | Emergency (ER) | payer MEDICAID, SELFPAY ==
[2021-07-15 19:29] VITALS: BP 119/75; PULSE 96; RESP 19; TEMP 36.1; O2SAT 99; BMI 25.8
--- NOTE | 2021-07-15 20:12 | EDS_ITS ---
HPI History of Present Illness Chief Complaint: Back Informant: patient Onset/Context/Timing Onset: Days Context: Gradual Onset Timing: Continuous Quality: Sharp Current Severity: Mild Maximum Severity: Moderate Worsened by: improves with Movement, Bending and Lifting Relieved by: Remaining Still Associated Symptoms Associated Symptoms: Radiation to Left Leg; Negative for Numbness, Tingling, Radiation to Right Leg, Fever, Abdominal Pain, Dysuria, Unable to Ambulate, Unable to Transfer, Urinary Retention, Urinary Incontinence, Constipation and Fecal Incontinence Narrative Narrative: 25-year-old female known history of prior disc disease. Says that her back has been going out. 3 days ago she had onset of back pain. Not radiating to her left leg. She denies any bowel or bladder incontinence. No fall or trauma. No fever. She is on no blood thinners. She has been seen by operations staff specialist security with the [facility] and pain management. She was seen here yesterday. She denies any prior back surgery. Prior similar symptoms: Yes Recent Illness/Hospitalization: No PFSH PFSH Medical History ADHD Lower back pain Skin cancer Home Medications acetaminophen 1,000 mg PO TID PRN #1 tab 03/11/20 [Rx Last Taken Unknown] nabumetone 500 mg PO BID 04/18/20 [History Last Taken Unknown] tizanidine 4 mg PO Q8H PRN PRN 04/18/20 [History Last Taken Unknown] levonorgestrel [Mirena] 20 mcg INTRAUTERINE DAILY 12/07/20 [History Last Taken Unknown] naproxen [Naprosyn] 500 mg PO BID PRN #20 tab 12/28/20 [Rx Last Taken Unknown] citalopram [Celexa] 20 mg PO DAILY 07/14/21 [History Last Taken Unknown] dextroamphetamine-amphetamine 40 mg PO DAILY 07/14/21 [History Last Taken Unknown] prednisone 50 mg PO DAILY 5 Days #25 tab 07/14/21 [Rx Last Taken Unknown] tizanidine [Zanaflex] 4 mg PO Q8H PRN #20 tab 07/14/21 [Rx Last Taken Unknown] Allergy/AdvReac Type Severity Reaction Status Date / Time cetirizine [From [facility]] Allergy difficulty Verified 07/15/21 19:31 breathing, racing heart Social History Smoking Status: Current every day smoker tobacco type: cigarettes details: Occasionally substance use type: does not use ROS ROS ED ROS Narrative Back pain Review of Systems ROS Unobtainable: Denies due to encephalopathy Constitutional Constitutional ED: Denies fever(s) Eyes Eyes: Denies change in vision ENT ENT ED: Denies ear pain Cardiovascular Cardiovascular: Denies chest pain Respiratory/Chest Respiratory/Chest: Denies dyspnea Gastrointestinal Gastrointestinal: Denies abdominal pain, diarrhea, nausea or vomiting Genitourinary Genitourinary ED: Denies dysuria Musculoskeletal Musculoskeletal: Denies myalgias Integumentary Denies rash Neurologic Neurologic: Denies headache(s) Psychiatric Psychiatric: Denies depression Endocrine Endocrinology: Denies polyuria Hematologic/Lymphatic Hematologic/Lymphatic: Denies easy bruising Allergic/Immunologic Allergic/Immunologic ED: Denies urticaria EXAM Physical Exam Narrative Exam Narrative: 25-year-old female no acute distress vital signs stable afebrile. HEENT exam normal. Lungs clear. Heart regular rhythm. Abdomen soft nontender. Moving all 4 extremities. Neurovascularly intact. Bilateral 5/5 heel seat laster strength. Dorsi plantarflexion intact. Negative straight leg raise bilaterally. No cauda equina. No saddle anesthesia. Has got a [place] Mod[place] Const Vital Signs: 07/15/21 19:29 Temperature 97 F L Temperature Source Temporal Pulse Rate 96 Respiratory Rate 19 H Blood Pressure 119/75 Blood Pressure Mean 89 Pulse Ox 9 Positive well nourished and well developed; Negative for obese, cachectic, contractures or unkempt General Appearance ED: well developed and NAD; Negative for unkempt, cachectic, contractures or pallor Nutritional Appearance: Negative for cachectic or obese HEENT Reports moist mucous membranes Negative for trauma or tenderness Eyes PERRL and EOMs intact bilaterally Neck no lymphadenopathy, supple and no JVD General: Negative for tenderness Resp normal respiratory effort and clear to auscultation bilaterally Effort and Inspection: Negative for pain with movement Cardio regular rate, regular rhythm, S1 normal heart sound, S2 normal heart sound and no murmurs GI normal to inspection, nondistended, normoactive bowel sounds, soft to palpation, non-tender, non-distended and no masses Inspection: Negative for abdominal distention Auscultation: Negative for hyperactive bowel sounds Palpation: Negative for tender, guarding or rebound tenderness present Back/Spine normal to inspection; Negative for no thoracic nor lumbar tenderness Back/Spine Narrative: Lumbar tenderness. No redness or warmth. No signs of trauma. No SI joint tenderness Cervical Spine: Negative for cervical spine tenderness and Negative for paracervical muscle tenderness Thoracic Spine / Upper Back: Negative for paraspinal muscle tenderness Lumbar Spine / Lower Back: straight leg raise negative bilaterally Extremity normal to inspection General Extremety ED: Negative for edema or tenderness General Extremity: Negative for edema Neuro oriented x3 and no sensory deficits noted Sensorium / Orientation: alert; Negative for confused, lethargic or stuporous Motor Exam: strength 5/5 throughout Psych mental status grossly normal Appearance: Negative for unkempt Mood & Affect: Negative for depressed or tearful Skin no rashes or lesions noted and no wounds General Skin Exam: Negative for jaundice or pallor MDM MDM MDM Narrative Medical decision making narrative: 25-year-old female history of degenerative disc disease. Complaining of acute on chronic back pain. Exam benign. No signs of any type of cord compression. She has normal motor strength and sensation in both lower extremities. No cauda equina. She will be treated with IM Toradol and 2 [place] and discharged home. Outpatient follow-up with her operations staff specialist security. Discharge Plan Triage Chief Complaint: Back ED Provider: Chris Miller Dx/Rx/DC Orders Clinical Impression: Acute low back pain, Hx of degenerative disc disease Instructions: Relieving Back Pain Prescriptions: No Action acetaminophen 325 MG tablet 1,000 mg PO TID PRN (Reason: Pain Score 1-10/Temp > 100.7 F) Qty: 1 RF: 0 nabumetone 500 MG tablet 500 mg PO BID RF: 0 tizanidine 4 MG capsule 4 mg PO Q8H PRN PRN (Reason: Muscle Spasm) RF: 0 Mirena 20 mcg/24 hours (6 yrs) 52 mg Intrauterine Device 20 mcg INTRAUTERINE DAILY RF: 0 naproxen [Naprosyn] 500 mg tablet 500 mg PO BID PRN (Reason: pain) Qty: 20 RF: 0 citalopram [Celexa] 10 mg Tablet 20 mg PO DAILY RF: 0 dextroamphetamine-amphetamine 20 mg capsule,extended release 24hr 40 mg PO DAILY RF: 0 tizanidine [Zanaflex] 4 mg tablet 4 mg PO Q8H PRN (Reason: muscle spasticity) Qty: 20 RF: 0 prednisone 10 mg tablet 50 mg PO DAILY 5 Days Qty: 25 RF: 0 Primary Care Provider: Rodrigo Rasmussen NP Referrals: Rodrigo Rasmussen NP, [employer] ABATEMENT TECHNICIAN-C [Primary Care Provider] - Activity Restrictions/Additional Instructions: Spine doctor soon as possible. Continue your steroids. Motrin for pain. Disposition Disposition: Home, Self Care
[2021-07-15] MEDS: HYDROcodone Bitartrate/Apap 5/325 Tablet PO (20:18)
[2021-07-15] MEDS: Ketorolac 60 MG/2 ML Vial IM (20:18)
[2021-07-15 21:23] VITALS: BP 112/78; PULSE 78; RESP 16; O2SAT 97
== END 2021-07-15 21:24 | disposition home or self-care (01) ==
PROVIDERS: Emergency Provider Emergency Medicine; PCP Nurse Practitioner Family
DX: M54.50 Low back pain, unspecified (principal); G89.29 Other chronic pain; F90.9 Attention-deficit hyperactivity disorder, unspecified type; Z85.828 Personal history of other malignant neoplasm of skin; Z79.899 Other long term (current) drug therapy; F17.210 Nicotine dependence, cigarettes, uncomplicated
CPT/HCPCS: 96372; 99283

== ENCOUNTER 2021-09-18 00:47 | Emergency (ER) | payer MEDICAID, SELFPAY ==
[2021-09-18 00:47] VITALS: BP 132/71; PULSE 96; RESP 16; TEMP 36.2; O2SAT 100; BMI 26.6
[2021-09-18] MEDS: oxyCODONE 5 MG Tablet PO (03:03)
[2021-09-18] MEDS: Triamcinolone Acetonide 40 MG/ML Vial IM (03:03)
[2021-09-18 03:09] VITALS: PULSE 8; RESP 15; O2SAT 99
--- NOTE | 2021-09-18 04:58 | ED.VIS.BACK ---
HPI History of Present Illness Chief Complaint: Back Narrative Narrative: 25-year-old female with history of degenerative disc disease presenting for evaluation of back pain. 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 She states has had this before multiple times. She has no loss of bladder or bowel control. No saddle anesthesia. She is ambulatory. She states that she usually takes steroids for this. She has Zanaflex 2 mg that is prescribed to her. [facility] Medical History ADHD Lower back pain Skin cancer Home Medications acetaminophen 1,000 mg PO TID PRN #1 tab 03/11/20 [Rx Last Taken Unknown] nabumetone 500 mg PO BID 04/18/20 [History Last Taken Unknown] tizanidine 4 mg PO Q8H PRN PRN 04/18/20 [History Last Taken Unknown] levonorgestrel [Mirena] 20 mcg INTRAUTERINE DAILY 12/07/20 [History Last Taken Unknown] naproxen [Naprosyn] 500 mg PO BID PRN #20 tab 12/28/20 [Rx Last Taken Unknown] citalopram [Celexa] 20 mg PO DAILY 07/14/21 [History Last Taken Unknown] dextroamphetamine-amphetamine 40 mg PO DAILY 07/14/21 [History Last Taken Unknown] prednisone 50 mg PO DAILY 5 Days #25 tab 07/14/21 [Rx Last Taken Unknown] tizanidine [Zanaflex] 4 mg PO Q8H PRN #20 tab 07/14/21 [Rx Last Taken Unknown] prednisone 50 mg PO DAILY 4 Days #20 tab 09/18/21 [Rx Last Taken Unknown] tizanidine 4 mg PO QHS PRN #14 cap 09/18/21 [Rx Last Taken Unknown] Allergy/AdvReac Type Severity Reaction Status Date / Time cetirizine [From [facility]] Allergy difficulty Verified 09/18/21 00:49 breathing, racing heart Social History Smoking Status: Current every day smoker tobacco type: cigarettes details: Occasionally substance use type: does not use ROS ROS ED Constitutional Constitutional ED: Denies chills or fever(s) Eyes Eyes: Denies blurry vision or diplopia Cardiovascular Cardiovascular: Denies palpitations or racing heartbeat Respiratory/Chest Respiratory/Chest: Denies dyspnea or sputum Gastrointestinal Gastrointestinal: Denies abdominal pain, nausea or vomiting Genitourinary Genitourinary ED: Denies dysuria or hematuria Musculoskeletal Musculoskeletal: Reports back pain; Denies arthralgias or myalgias Integumentary Denies Abrasions or rash Neurologic Neurologic: Denies headache(s) or paresthesias EXAM Physical Exam Const Vital Signs: 09/18/21 00:47 09/18/21 03:09 Temperature 97.2 F L Temperature Source Temporal Pulse Rate 96 8 L Respiratory Rate 16 15 Blood Pressure 132/71 H Blood Pressure Mean 91 Pulse Ox 100 99 Oxygen Delivery Method Room Air Positive well nourished General Appearance ED: NAD; Negative for pallor HEENT Reports moist mucous membranes Negative for trauma Eyes PERRL and EOMs intact bilaterally Resp normal respiratory effort and clear to auscultation bilaterally Cardio regular rate and regular rhythm Back/Spine Back/Spine Narrative: Paraspinal muscular tenderness on the left lumbar. No midline deformity or step-off. Psych mental status grossly normal Skin General Skin Exam: Negative for jaundice or pallor MDM MDM MDM Narrative Medical decision making narrative: Patient states she needs steroids to help her back. She requested a shot of Kenalog it is provided. I did give her oxycodone for pain in the ER. She requests a prescription for Zanaflex 4 mg which was provided. Patient stable for discharge. Impression: 1. Lumbar strain Discharge Plan Triage Chief Complaint: Back ED Provider: Prabhu Landon Dx/Rx/DC Orders Instructions: ED Back Spasm, No Trauma Prescriptions: New tizanidine 4 mg capsule 4 mg PO QHS PRN (Reason: muscle spasticity) Qty: 14 RF: 0 prednisone 10 mg tablet 50 mg PO DAILY 4 Days Qty: 20 RF: 0 No Action acetaminophen 325 MG tablet 1,000 mg PO TID PRN (Reason: Pain Score 1-10/Temp > 100.7 F) Qty: 1 RF: 0 nabumetone 500 MG tablet 500 mg PO BID RF: 0 tizanidine 4 MG capsule 4 mg PO Q8H PRN PRN (Reason: Muscle Spasm) RF: 0 Mirena 20 mcg/24 hours (6 yrs) 52 mg Intrauterine Device 20 mcg INTRAUTERINE DAILY RF: 0 naproxen [Naprosyn] 500 mg tablet 500 mg PO BID PRN (Reason: pain) Qty: 20 RF: 0 citalopram [Celexa] 10 mg Tablet 20 mg PO DAILY RF: 0 dextroamphetamine-amphetamine 20 mg capsule,extended release 24hr 40 mg PO DAILY RF: 0 tizanidine [Zanaflex] 4 mg tablet 4 mg PO Q8H PRN (Reason: muscle spasticity) Qty: 20 RF: 0 prednisone 10 mg tablet 50 mg PO DAILY 5 Days Qty: 25 RF: 0 Primary Care Provider: Rodrigo Rasmussen NP Referrals: Rodrigo Rasmussen NP, HUMAN RESOURCES RECORDS CLERK-C [Primary Care Provider] - Disposition Disposition: Home, Self Care Discharge Date/Time: 09/18/21 03:11
== END 2021-09-18 03:11 | disposition home or self-care (01) ==
LOC: ED 02:02
PROVIDERS: Emergency Provider Student in an Organized Health Care Education/Training Program; PCP Nurse Practitioner Family; Visit Provider Student in an Organized Health Care Education/Training Program
DX: S39.012A Strain of muscle, fascia and tendon of lower back, initial encounter (principal); F17.210 Nicotine dependence, cigarettes, uncomplicated; Y99.0 Civilian activity done for income or pay; X58.XXXA Exposure to other specified factors, initial encounter; Y93.9 Activity, unspecified; Y92.89 Other specified places as the place of occurrence of the external cause
CPT/HCPCS: 96372; 99283

== ENCOUNTER 2022-05-02 18:48 | Emergency (ER) | payer MEDICAID, SELFPAY ==
[2022-05-02 18:49] VITALS: BP 119/75; PULSE 100; RESP 16; TEMP 36.1; O2SAT 97; BMI 29.3
--- NOTE | 2022-05-02 19:26 | EX.ED.VIS.HA ---
HPI History of Present Illness Chief Complaint: Headache Informant: patient Onset/Context/Timing Onset: Days (3 to 4 days) Context: Gradual Timing: Waxes and wanes Quality -Headache: Positive for Throbbing Current Severity: Moderate Maximum Severity: Moderate Narrative Narrative: Patient presents secondary to headache and vomiting. She is currently 9 weeks . She states she is been vomiting daily for the last 2 to 3 weeks. Last 4 days she has had a migraine headache. She is unable to keep meds down at home. She reports having headaches as a child but does not really have history of migraines as an adult. She was seen by her LIGHT INDUSTRIAL SUPERVISOR last week and had a normal ultrasound. [facility] Medical History ADHD Lower back pain Skin cancer Home Medications acetaminophen 325 mg tablet 1,000 mg PO TID PRN Pain Score 1-10/Temp > 100.7 F #1 TAB 03/11/20 [Rx Last Taken Unknown] nabumetone 500 mg tablet 500 mg PO BID 04/18/20 [History Last Taken Unknown] tizanidine 4 mg capsule 4 mg PO Q8H PRN PRN Muscle Spasm 04/18/20 [History Last Taken Unknown] levonorgestrel 20 mcg/24 hours (8 yrs) 52 mg intrauterine device (Mirena) 20 mcg intrauterine DAILY 12/07/20 [History Last Taken Unknown] naproxen 500 mg tablet (Naprosyn) 500 mg PO BID PRN pain #20 tabs 12/28/20 [Rx Last Taken Unknown] citalopram 10 mg tablet (Celexa) 20 mg PO DAILY 07/14/21 [History Last Taken Unknown] dextroamphetamine-amphetamine ER 20 mg 24hr capsule,extend release 40 mg PO DAILY 07/14/21 [History Last Taken Unknown] prednisone 10 mg tablet 50 mg PO DAILY 5 days #25 tabs 07/14/21 [Rx Last Taken Unknown] tizanidine 4 mg tablet (Zanaflex) 4 mg PO Q8H PRN muscle spasticity #20 tabs 07/14/21 [Rx Last Taken Unknown] prednisone 10 mg tablet 50 mg PO DAILY 4 days #20 tabs 09/18/21 [Rx Last Taken Unknown] tizanidine 4 mg capsule 4 mg PO QHS PRN muscle spasticity #14 caps 09/18/21 [Rx Last Taken Unknown] ondansetron 4 mg disintegrating tablet 4 mg PO Q8H PRN nausea and vomiting #10 tabs 05/02/22 [Rx Last Taken Unknown] Allergy/AdvReac Type Severity Reaction Status Date / Time cetirizine [From [facility]] Allergy difficulty Verified 05/02/22 18:51 breathing, racing heart Social History Smoking Status: Current every day smoker tobacco type: cigarettes details: Occasionally substance use type: does not use ROS ROS ED Constitutional Constitutional ED: Denies chills or fever(s) Eyes Eyes: Denies change in vision or discharge from eye(s) ENT ENT ED: Denies discharge from eye(s), rhinorrhea or sore throat Cardiovascular Cardiovascular: Denies chest pain or palpitations Respiratory/Chest Respiratory/Chest: Denies cough or dyspnea Gastrointestinal Gastrointestinal: Reports nausea and vomiting; Denies abdominal pain or diarrhea Genitourinary Genitourinary ED: Reports urinary frequency; Denies dysuria Musculoskeletal Musculoskeletal: Denies back pain or extremity pain Integumentary Denies Abrasions or rash Neurologic Neurologic: Reports headache(s); Denies weakness Psychiatric Psychiatric: Denies anxiety or depression Allergic/Immunologic Allergic/Immunologic ED: Denies lip swelling or urticaria EXAM Physical Exam Const Vital Signs: 05/02/22 18:49 Temperature 97.0 F L Temperature Source Temporal Pulse Rate 100 Respiratory Rate 16 Blood Pressure 119/75 Blood Pressure Mean 89 Pulse Ox 97 Oxygen Delivery Method Room Air Positive well nourished and well developed General Appearance ED: well developed HEENT Reports normocephalic and head/scalp atraumatic Eyes PERRL and EOMs intact bilaterally Neck supple Chest Wall inspection of chest normal and palpation of chest normal Resp normal respiratory effort and clear to auscultation bilaterally Cardio regular rate and regular rhythm GI normal to inspection, nondistended, normoactive bowel sounds Palpation: soft Extremity normal to inspection Neuro oriented x3 and no sensory deficits noted Sensorium / Orientation: alert Motor Exam: strength 5/5 throughout Psych mental status grossly normal Skin no rashes or lesions noted MDM MDM MDM Narrative Medical decision making narrative: Patient given IV fluids along with Tylenol, Benadryl, Reglan. Chemistry studies and urinalysis ordered. Lab Data Attestation: I reviewed the patient's lab results. Labs: Laboratory Results - last 24 hr 05/02/22 05/02/22 19:55 20:20 Sodium 138 Potassium 4.0 Chloride 108 H Carbon Dioxide 24.0 Anion Gap 6 BUN 7 Creatinine 0.47 L Estim Creat Clear Calc 173.30 Est GFR (MDRD) Af Amer 201 Est GFR (MDRD) Non-Af 166 BUN/Creatinine Ratio 14.8 Glucose 91 Calcium 8.5 Urine Color Yellow Urine Clarity Clear Urine pH 7.0 Ur Specific [place] 1.010 Urine Protein Negative Urine Glucose (UA) Normal Urine Ketones Negative Urine Occult Blood Negative Urine Nitrite Negative Urine Bilirubin Negative Urine Urobilinogen Normal Ur Leukocyte Esterase 25 H Urine RBC 0 SEEN Urine WBC 0 SEEN Ur Squamous Epith Cells 0 SEEN Urine Bacteria 0 SEEN Urine Mucus 0 SEEN Treatment and Re-Evaluation Narrative: Patient's lab work is unremarkable. Urinalysis reveals no acute infection. No ketones are noted. Patient was able to take a nap here and upon awakening reports that her headache is significantly improved. I will go ahead and write her prescription for Zofran. She is to follow-up with her LIGHT INDUSTRIAL SUPERVISOR. Discharge Plan Triage Chief Complaint: Headache ED Provider: Aliyah Peters Dx/Rx/DC Orders Clinical Impression: Migraine, Vomiting, First trimester Instructions: 1st Trimester, ED, Migraine (Classical), ED Vomiting (Adult) Prescriptions: New ondansetron 4 mg tablet,disintegrating 4 mg PO Q8H PRN (Reason: nausea and vomiting) Qty: 10 0RF No Action acetaminophen 325 MG tablet 1,000 mg PO TID PRN (Reason: Pain Score 1-10/Temp > 100.7 F) Qty: 1 0RF nabumetone 500 MG tablet 500 mg PO BID tizanidine 4 MG capsule 4 mg PO Q8H PRN PRN (Reason: Muscle Spasm) Mirena 20 mcg/24 hours (6 yrs) 52 mg Intrauterine Device 20 mcg INTRAUTERINE DAILY naproxen [Naprosyn] 500 mg tablet 500 mg PO BID PRN (Reason: pain) Qty: 20 0RF citalopram [Celexa] 10 mg Tablet 20 mg PO DAILY dextroamphetamine-amphetamine 20 mg capsule,extended release 24hr 40 mg PO DAILY tizanidine [Zanaflex] 4 mg tablet 4 mg PO Q8H PRN (Reason: muscle spasticity) Qty: 20 0RF prednisone 10 mg tablet 50 mg PO DAILY 5 Days Qty: 25 0RF tizanidine 4 mg capsule 4 mg PO QHS PRN (Reason: muscle spasticity) Qty: 14 0RF prednisone 10 mg tablet 50 mg PO DAILY 4 Days Qty: 20 0RF Primary Care Provider: Joe Reeves Referrals: Alexa Bartholomew CNM [Med Staff - [facility]] - 1 Week Joe Reeves MD [Primary Care Provider] - Disposition Disposition: Home, Self Care
[2022-05-02] MEDS: DiphenhydrAMINE 50 MG/ML Syringe 12.5 MG IV (19:58)
[2022-05-02] MEDS: Metoclopramide 10 MG/2 ML Vial IV (19:58)
[2022-05-02] MEDS: Acetaminophen 500 MG Tablet 1000 MG PO (19:59)
[2022-05-02] MEDS: 0.9% Normal Saline 1,000 ML 1000 ML IV (20:01)
[2022-05-02 20:16] LABS: Anion Gap 6 (5-15); BUN 7 mg/dL (7-18); BUN/Creat Ratio 14.8 RATIO (10-20); Calcium,Total 8.5 mg/dL (8.5-10.1); Chloride 108 mmol/L (98-107); Creatinine, Serum 0.47 mg/dL (0.55-1.02); EST Glomerular Filtration Rate 166 mL/min (>60); Est Glom Filt Rate - Afr Amer 201 mL/min (>60); Glucose 91 mg/dL (74-106); Sodium Level 138 mmol/L (136-145)
[2022-05-02 20:28] LABS: Bacteria 0 SEEN /hpf (None Seen); Mucous, Urine 0 SEEN /hpf (<or=2+); Red Blood Cells-Urine 0 SEEN /hpf (0-5); Squamous Epithelial Cells - UA 0 SEEN /hpf (5-10); White Blood Cells 0 SEEN /hpf (0-5)
[2022-05-02 20:33] LABS: Color, Urine Yellow (Yellow); Glucose, Dipstick Normal (Normal); Ketone-Dipstick Negative (Negative); Leukocyte Esterase-Dipstick 25 /ul (Negative); Nitrite-Dipstick Negative (Negative); Occult Blood-Urine Negative /ul (Negative); Protein-Dipstick Negative (Negative); Urine Bilirubin Dipstick Negative (Negative); Urine Clarity Clear (Clear); Urine Urobilinogen Normal (Normal)
[2022-05-02] MEDS: 0.9% Normal Saline 1,000 ML 150 ML IV (21:45)
== END 2022-05-02 22:18 | disposition home or self-care (01) ==
PROVIDERS: Emergency Provider Emergency Medicine; PCP Family Medicine; Visit Provider Emergency Medicine
DX: O99.351 Diseases of the nervous system complicating pregnancy, first trimester (principal); O99.331 Smoking (tobacco) complicating pregnancy, first trimester; O99.891 Other specified diseases and conditions complicating pregnancy; O21.9 Vomiting of pregnancy, unspecified; G43.909 Migraine, unspecified, not intractable, without status migrainosus; F17.210 Nicotine dependence, cigarettes, uncomplicated; R35.0 Frequency of micturition; Z3A.09 9 weeks gestation of pregnancy
CPT/HCPCS: 80048; 81001; 96361; 96374; 96375; 99283; J7030; A4216

== ENCOUNTER 2022-08-13 18:48 | Emergency (ER) | payer MEDICAID, SELFPAY ==
[2022-08-13 18:49] VITALS: BP 115/70; PULSE 92; RESP 18; TEMP 36; O2SAT 99; BMI 29.4
--- NOTE | 2022-08-13 19:02 | EDS_ITS ---
HPI History of Present Illness Chief Complaint: Back Narrative Narrative: 26-year-old female, G2, P1 at approximately 24 weeks gestation presents with low back pain that she has had for the past few hours. She states that she was trying to worm picker a box, and throughout her back. She has chronic low back problems, stating that she has had MRIs done in the past. She usually has problems like this every few months, but she thought that her had cured her back problems. She tried to take a nap but was unable to. She has pain in her left paraspinal area that radiates more towards the front towards her hip. No other symptoms. This is similar to her previous back problems. No red flag signs for cauda equina. [facility] Medical History ADHD Lower back pain Skin cancer Allergy/AdvReac Type Severity Reaction Status Date / Time cetirizine [From [facility]] Allergy difficulty Verified 08/13/22 18:51 breathing, racing heart Social History Smoking Status: Current every day smoker tobacco type: cigarettes details: Occasionally substance use type: does not use ROS ROS ED ROS Narrative Constitutional: No fever, no chills. HEENT: No sore throat. No neck pain. No loss of vision. No rhinorrhea. Cardiovascular: No chest pain. No palpitations. No pedal edema. Respiratory: No cough, no shortness of breath. Abdominal: No abdominal pain. No nausea. No vomiting. Genitourinary: No dysuria. No hematuria. Musculoskeletal: No myalgias. No arthralgias. Left low back pain radiating to hip. Worse with movement of left lower extremity. Neurologic: No headaches. No dizziness. No lightheadedness. Skin: No rash. No change in color. Psychiatric: No depression. No anxiety. EXAM Physical Exam Narrative Exam Narrative: Afebrile. Vital signs noted. HEENT: Normocephalic. Atraumatic. PERRL, EOMI. Neck soft and supple. No point tenderness or step off. Cardiovascular: Regular rate and rhythm. No murmurs, rubs, or gallops appreciated. Respiratory: No tachypnea. Lungs clear to auscultation bilaterally. Gastrointestinal: Abdomen soft, nontender, with normoactive bowel sounds. No rebound or guarding. Neurological: Awake. Alert. Nonfocal, nonlateralizing. Neurovascularly intact bilateral lower extremities. Skin: No rash. Normal color. No pallor. Musculoskeletal: No pedal edema. Mild tenderness palpation left paraspinal area, no vertebral point tenderness or bony step-off. Const Vital Signs: 08/13/22 18:49 Temperature 96.8 F L Temperature Source Temporal Pulse Rate 92 Respiratory Rate 18 Blood Pressure 115/70 Blood Pressure Mean 85 Pulse Ox 99 Oxygen Delivery Method Room Air MDM MDM MDM Narrative Medical decision making narrative: As the patient is in her second trimester, I do not feel x-rays are indicated. She cannot be given NSAIDs secondary to contraindication. She was given Tylenol 1 g orally and a Lidoderm patch. heart tones will be obtained. They are normal at 136. She denies any pelvic cramping or vaginal bleeding. At this point in time, continue [id number] Tylenol and was told to avoid the use of NSAIDs during . She will apply heat and ice alternatively. She was given an ice pack here for comfort. She was also given a Lidoderm patch as she can use [id number] Salonpas. As there are no red flag signs for cauda equina, I feel she can be discharged home in stable condition. Return instructions were reviewed. Disposition is discharged home in stable condition. Discharge Plan Triage Chief Complaint: Back ED Provider: Ammon Londono Dx/Rx/DC Orders Clinical Impression: Acute low back pain, Lumbosacral strain, Second trimester Instructions: 2nd Trimester Changes, ED Back Pain (Acute or Chronic), ED Back Sprain/Strain Primary Care Provider: Joe Reeves Referrals: Joe Reeves MD [Primary Care Provider] - As Needed Activity Restrictions/Additional Instructions: Take [id number]-[id number] Tylenol as directed for pain, but do not exceed more than 3000 mg in 24 hours. Do not use nonsteroidal anti-inflammatories such as Motrin/ibuprofen or naproxen during . Apply heat and ice alternatively. Disposition Disposition: Home, Self Care Discharge Date/Time: 08/13/22 19:18
[2022-08-13] MEDS: Acetaminophen 500 MG Tablet 1000 MG PO (19:09)
[2022-08-13] MEDS: Lidocaine 5% Patch 1 PATCH TOPICAL (19:10)
== END 2022-08-13 19:18 | disposition home or self-care (01) ==
PROVIDERS: Emergency Provider Emergency Medicine; PCP Family Medicine; Visit Provider Emergency Medicine
DX: O9A.212 Injury, poisoning and certain other consequences of external causes complicating pregnancy, second trimester (principal); O99.891 Other specified diseases and conditions complicating pregnancy; Z3A.24 24 weeks gestation of pregnancy; S39.012A Strain of muscle, fascia and tendon of lower back, initial encounter; O99.332 Smoking (tobacco) complicating pregnancy, second trimester; F17.210 Nicotine dependence, cigarettes, uncomplicated; X50.9XXA Other and unspecified overexertion or strenuous movements or postures, initial encounter
CPT/HCPCS: 99284

== ENCOUNTER 2022-10-28 20:22 | Outpatient (CLI) | payer MEDICAID, SELFPAY ==
[2022-10-28 20:43] VITALS: PULSE 107; O2SAT 98
[2022-10-28 20:44] VITALS: BP 120/64; PULSE 99; TEMP 36.8
[2022-10-28 20:55] VITALS: BMI 32.2
--- NOTE | 2022-10-29 05:29 | NURSING ---
Reviewed and agreed with Mary Alice PEREA charting.
--- NOTE | 2022-10-29 11:35 | OB.TRI.HP_ITS ---
HPI - General General Date of Admission: 10/28/22 Date of Service: 10/28/22 Chief Complaint: back pain and leg edema HPI Narrative KAPIL VERDUZCO, is a 27-year-old 2 para 1 who presented at 35 and 2/7 weeks gestation with complaint of back pain and leg edema. [facility] Medical History ADHD Lower back pain Skin cancer Home Medications [id number] 1 mg tablet 1 tab PO DAILY 10/28/22 [History Last Taken 10/27/22] Allergy/AdvReac Type Severity Reaction Status Date / Time cetirizine [From [facility]] Allergy difficulty Verified 10/28/22 20:56 breathing, racing heart Social History Smoking Status: Current every day smoker tobacco type: cigarettes details: Occasionally substance use type: does not use NST FHR Rate Baby A Baseline: 130 Variability:: Moderate Accelerations:: 15 x 15 Decelerations:: None NST Reactive:: Yes FHR Category:: Category I Uterine Activity:: irritability Assessment & Plan (1) High risk multigravida: PLAN: High risk multigravida at 35 weeks gestation with back pain and leg edema. No evidence of preeclampsia or other acute issue. NST is reactive. No evidence of labor. Symptomatic measures for back pain. Follow-up in the office and can refer to physical therapy if patient is interested. Return as needed.
== END 2022-10-28 21:28 | disposition home or self-care (01) ==
LOC: WPOUT 20:30 → WP 20:30
PROVIDERS: PCP Family Medicine; Referring Provider Obstetrics & Gynecology; Visit Provider Obstetrics & Gynecology
DX: O09.93 Supervision of high risk pregnancy, unspecified, third trimester (principal); O99.891 Other specified diseases and conditions complicating pregnancy; M54.9 Dorsalgia, unspecified; O26.893 Other specified pregnancy related conditions, third trimester; R60.0 Localized edema; F17.210 Nicotine dependence, cigarettes, uncomplicated; O99.333 Smoking (tobacco) complicating pregnancy, third trimester; Z3A.35 35 weeks gestation of pregnancy
CPT/HCPCS: 59025; 59050; 99221; G0378

== ENCOUNTER 2022-11-15 00:18 | Outpatient (CLI) | payer MEDICAID, SELFPAY ==
[2022-11-15 00:27] VITALS: BMI 31.6
[2022-11-15 00:37] VITALS: BP 123/70; PULSE 93
[2022-11-15 00:45] VITALS: BP 123/72; PULSE 101; PULSE 108; TEMP 36.4; O2SAT 97
[2022-11-15 01:12] LABS: ROM Internal Control Test YES-OK TO RESULT pt. (Internal QC); ROM Patient Test Negative (Negative)
--- NOTE | 2022-11-15 07:25 | OB.TRI.HP_ITS ---
HPI - General HPI Narrative KAPIL VERDUZCO, is a 27 F at 38 weeks who presents to rule out spontaneous rupture of membranes. She denies any contractions or vaginal bleeding. Positive movement. Maternal Data Information ROSS Calculator Estimated Delivery Date Method Current WG Current Estimate 11/29/22 Manual 38w 0d PFSH PFS Medical History ADHD Lower back pain Skin cancer Home Medications [id number] 1 mg tablet 1 tab PO DAILY 10/28/22 [History Last Taken 11/14/22] famotidine 20 mg tablet 20 mg PO DAILY indigestion 11/15/22 [History Last Taken 11/14/22] ferrous sulfate 27 mg iron tablet 287 mg PO DAILY anemia 11/15/22 [History Last Taken 11/13/22] nicotine 22 mg/24 hr daily transdermal patch 22 mg transdermal DAILY 11/15/22 [History Last Taken 11/14/22] Allergy/AdvReac Type Severity Reaction Status Date / Time cetirizine [From [facility]] Allergy difficulty Verified 10/28/22 20:56 breathing, racing heart Social History Smoking Status: Current every day smoker tobacco type: cigarettes details: Occasionally substance use type: does not use ROS Eyes Eyes: Denies blurry vision Cardiovascular Cardiovascular: Reports none; Denies chest pain at rest, chest pain with activity or dizziness Respiratory/Chest Respiratory/Chest: Denies cough or dyspnea Gastrointestinal Gastrointestinal: Reports none and other; Denies diarrhea or vomiting Genitourinary Genitourinary: Denies dysuria Musculoskeletal Musculoskeletal: Reports none Integumentary Integumentary: Reports none; Denies rash Neurologic Neurologic: Denies dizziness, headache(s) or other visual disturbances Psychiatric Psychiatric: Reports none Physical Exam Const alert and no apparent distress General Appearance: cooperative Orientation / Consciousness: awake Exam Limitations: no limitations HEENT normocephalic Eyes General Eye: normal appearance of both eyes Neck full ROM Chest inspection of chest normal Resp normal respiratory effort and normal air movement Effort and Inspection: symmetric chest movement Auscultation: clear to auscultation bilaterally Cardio regular rate GI soft to palpation, non-tender and non-distended Inspection: and other Back/Spine normal ROM Extremity full ROM, normal capillary refill and no calf tenderness Skin no rashes or lesions noted Neuro oriented x3 and CN's II-XII intact bilaterally Psych mental status grossly normal NST FHR Rate Baby A Baseline: 125 Variability:: Moderate Accelerations:: 15 x 15 Decelerations:: None NST Reactive:: Yes FHR Category:: Category I Uterine Activity:: None Assessment & Plan (1) High risk multigravida: (2) 38 weeks gestation of : (3) Leakage of amniotic fluid: PLAN: Plan NST reactive= Cat. 1 tracing ROM plus- negative Labor precautions and kick counts reviewed D/C home with follow up in office
== END 2022-11-15 01:30 | disposition home or self-care (01) ==
LOC: WPOUT 00:26 → WP 00:27
PROVIDERS: PCP Family Medicine; Referring Provider Advanced Practice Midwife; Visit Provider Advanced Practice Midwife
DX: O09.93 Supervision of high risk pregnancy, unspecified, third trimester (principal); O99.333 Smoking (tobacco) complicating pregnancy, third trimester; F17.210 Nicotine dependence, cigarettes, uncomplicated; Z3A.38 38 weeks gestation of pregnancy
CPT/HCPCS: 59025; 59050; 84112

== ENCOUNTER 2022-11-22 07:05 | Inpatient (IN) | payer MEDICAID, SELFPAY ==
[2022-11-22] VITALS (38 sets, daily range): BP systolic 99–136; BP diastolic 55–80; PULSE 81–119; TEMP 36.4–37.7; O2SAT 96–100; BMI 32.1
[2022-11-22] MEDS: Lactated Ringers 1,000 ML 50 ML IV (07:37)
[2022-11-22 07:58] LABS: Absolute Lymphocyte Count 2.37 X10^3/uL (0.83-4.51); Basophil# 0.03 X10^3/uL; Basophil% 0.3 % (0-1); Eosinophil# 0.17 X10^3/uL; Eosinophils% 1.8 % (0-5); Hematocrit 30.6 % (37-47); Hemoglobin 10.2 g/dL (12.0-15.0); Lymphocyte # 2.37 X10^3/ul (0.83-4.51); Lymphocyte % 24.9 % (19-41); Mean Corp Hgb Conc 33.3 g/dL (32-36); Mean Corpuscular Hgb 28.7 pg (27.0-32.0); Mean Platelet Vol. 10.8 fl (6.2-12.0); Monocyte# 0.84 X10^3/uL; Monocyte% 8.8 % (0-10); NRBC Flagged by Analyzer 0 % (0-5); Neutrophil # 5.98 X10^3/uL (2.7-7.7); Neutrophil % 62.8 % (47-70); Platelet Count 263 K/mm3 (150-450); RBC Distribution Width SD 43.8 fl (35.1-43.9); Red Blood Count 3.56 M/mm3 (4.2-5.4); White Blood Count 9.5 K/mm3 (4.4-11.0)
[2022-11-22] MEDS: Oxytocin 15 Units/NS 250ml 15 UNITS/250 ML IV.SOLN 2 UNITS IV (08:05)
[2022-11-22 08:10] LABS: Amphetamine Urine VISTA NEGATIVE (<1000 ng/mL); Barbiturate Urine VISTA NEGATIVE (< 200 ng/mL); Benzodiazepine Urine VISTA NEGATIVE (< 200 ng/mL); Cocaine Urine VISTA NEGATIVE (< 300 ng/mL); Ecstacy Urine VISTA NEGATIVE (< 500 ng/mL); Methadone Urine VISTA NEGATIVE (< 300 ng/mL); PCP Urine VISTA NEGATIVE (< 25 ng/mL); THC Urine VISTA NEGATIVE (< 50 ng/mL); Vista UDS pH Range 6
[2022-11-22 08:10] LABS: Bedside Glucose 91 mg/dL (74-106)
[2022-11-22 08:31] LABS: Syphilis Antibodies Non-reactive
[2022-11-22] MEDS: 0.9% Normal Saline Single 100 ML IV.SOLN. INTRA-UTER (08:49)
--- NOTE | 2022-11-22 09:00 | PCM.HP.OB ---
[facility] - General General Date of Admission: 11/22/22 Date of Service: 11/29/22 Chief Complaint: induction of labor HPI Narrative KAPIL VERDUZCO, is a 27 F 2 para 1 at 39 weeks for induction of labor due to diet-controlled insulin diabetes that was only diagnosed 2 weeks ago. That is when she had her 3-hour GTT done. is also been complicated to date by history of drug and alcohol abuse in the past. She has not used during this according to her. She does use nicotine. She has a history of abnormal Pap smears, mild intermittent asthma, and hepatitis C that was treated and she is now considered cured of that. Maternal Data Information ROSS Calculator Estimated Delivery Date Method Current WG Current Estimate 11/29/22 Manual 39w 0d Final ROSS: 11/29/22 Gestational age: 39 0/7 PFSH [facility] Medical History (Updated 11/22/22 @ 09:[address] Carmelita Millan MD) ADHD Anxiety Asthma Depression Gestational diabetes Headache Lower back pain depression Skin cancer Home Medications [id number] 1 mg tablet 1 tab PO DAILY 10/28/22 [History Last Taken 11/14/22] famotidine 20 mg tablet 20 mg PO DAILY indigestion 11/15/22 [History Last Taken 11/14/22] ferrous sulfate 27 mg iron tablet 287 mg PO DAILY anemia 11/15/22 [History Last Taken 11/13/22] nicotine 22 mg/24 hr daily transdermal patch 22 mg transdermal DAILY 11/15/22 [History Last Taken 11/14/22] Allergy/AdvReac Type Severity Reaction Status Date / Time cetirizine [From [facility]] Allergy difficulty Verified 10/28/22 20:56 breathing, racing heart Surgical History (Updated 11/22/22 @ 07:50 by Sandra Dinh) History of surgery Social History Smoking Status: Former smoker details: Occasionally substance use type: does not use History Elective abortions Hx Para 1 Spontaneous abortions Hx # Term Pregnancies Ectopic pregnancies Hx # Pregnancies Multiple births # of living children ROS Constitutional Constitutional: Denies fatigue, fever(s) or malaise Eyes Eyes: Denies change in vision ENT HEENT: Denies dizziness or headache(s) Cardiovascular Cardiovascular: Denies chest pain, dyspnea or lightheadedness Respiratory/Chest Respiratory/Chest: Denies cough or dyspnea Gastrointestinal Gastrointestinal: Denies change in bowel habits Genitourinary Genitourinary: Denies burning urination or genital lesions Integumentary Integumentary: Denies rash Neurologic Neurologic: Denies confusion, dizziness, headache(s), numbness or weakness Vital Signs Vital Signs Vital Signs: 11/22/22 07:39 11/22/22 07:39 11/22/22 08:54 Pulse Rate 94 Blood Pressure 103/67 123/75 H BP Systolic 103 123 BP Diastolic 67 75 11/22/22 08:54 Pulse Rate 90 Blood Pressure BP Systolic BP Diastolic Weight Weight: 92.7 kg Body Mass Index (BMI) 32.1 Physical Exam Const alert and no apparent distress General Appearance: cooperative HEENT normocephalic Resp normal respiratory effort Cardio regular rate GI soft to palpation GI Narrative: gravid, nontender, appropriate for gestational age Extremity no calf tenderness General Extremity: edema Skin no wounds Rashes: No rashes noted Psych activity/motor behavior normal Labs Labs Labs: Blood Type A POSITIVE Antibody Screen NEGATIVE Hct 30.6 % (37-47) L Hgb 10.2 g/dL (12.0-15.0) L Syphilis Total Ab Non-reactive Chlamydia DNA (JESSICA) Negative (Negative-) Neisseria gonorrhoeae DNA (JESSICA) Negative (Negative-) Assessment & Plan (1) High risk multigravida: PLAN: Risk benefits and alternatives to induction labor him discussed with patient, questions were answered to her satisfaction she desires to proceed. We will proceed with Alvarado and Pitocin induction, artificial rupture membranes. May have routine pain control measures as desired. Estimated weight is less than 4500 g and pelvis clinically adequate to expect vaginal delivery. We will monitor blood sugars and labor per protocol. Estimated weight is less than 4500 g clinically and pelvis is clinically adequate to expect vaginal delivery. Procedure note: Patient cervix was 270-2 station. Avlarado catheter placed over the stylette in usual sterile fashion with artificial rupture membranes occurring during this time. The balloon was inflated to 30 cc with normal saline and placement over the internal os was confirmed. Patient and fetus tolerated the procedure well. Will initiate group B strep prophylaxis as well. (2) Gestational diabetes, diet controlled: (3) 39 weeks gestation of :
[2022-11-22 09:26] LABS: Bedside Glucose 89 mg/dL (74-106)
[2022-11-22] MEDS: LACTATED RINGERS 500 ML 999 ML IV (10:19)
--- NOTE | 2022-11-22 10:30 | NURSING ---
pt came with nicotine patch on- contacting dr crespo office for a order
[2022-11-22] MEDS: fentaNYL-bupivacaine (epidural) 100 ML BAG EPIDURAL ×2 (11:41→15:49)
[2022-11-22] MEDS: Penicillin G 3,000,000 Units 50 ML 100 UNITS IV ×2 (12:40→16:41)
[2022-11-22 13:11] LABS: Bedside Glucose 85 mg/dL (74-106)
--- NOTE | 2022-11-22 14:16 | NURSING ---
see connect nurses notes about nicotine patch orders- current patch to be left on and replace tomorrow with our hospital patch
[2022-11-22] MEDS: Lactated Ringers 1,000 ML 200 ML IV (15:17)
[2022-11-22 15:41] LABS: Bedside Glucose 92 mg/dL (74-106)
[2022-11-22 17:10] LABS: Bedside Glucose 83 mg/dL (74-106)
--- NOTE | 2022-11-22 17:43 | EX.PCM.OBRPT ---
Assessment & Plan (1) (spontaneous vaginal delivery): Maternal Data Information ROSS Calculator Estimated Delivery Date Method Current WG Current Estimate 11/29/22 Manual 39w 0d Final ROSS: 11/29/22 Gestational age: 39 Vaginal Delivery Maternal Presentation Maternal Presentation: Medically Indicated Induction Type of Induction: Pitocin, Alvarado Bulb and Amniotomy Medical Reason for Induction: - (geste DM) Operative Information Date of Procedure: 11/22/22 Pre-Operative Diagnosis: labor Post-Operative Diagnosis: same Surgery / Procedure Performed: Spontaneous Vaginal Delivery Type of Anesthesia: Epidural Special Medications: none Drain: Alvarado to straight drain Estimated Blood Loss: 200 Time of Delivery: 17:32 Findings Description of Procedure: A vigorous female infant was delivered MAHAMED over an intact perineum. The remainder the infant was delivered with maternal pushing and gentle traction only in less than 15 seconds. The Pitocin infusion was initiated for active management of the third stage. The cord was clamped and cut after 1 minute. The infant was attended to by the waiting nursing staff. The placenta was delivered spontaneously and intact. The cervix and vagina were intact. Sponge and needle counts were correct. A vaginal sweep was completed by me. Presentation: MAHAMED Amniotic Membrane Rupture Type: Artificial Amniotic Fluid Description: Clear Placental Delivery Description: Spontaneous Placenta Disposition: [facility] Cord Vessel Description: 3 Vessels Cord Entanglement: None A Gender: Female (1 minute): 8 (5 minute): 9 Delayed Cord Clamping: Yes Post Vaginal Delivery Medications Given After Delivery: IV Pitocin Episiotomy Description: None Laceration: None Complication Complications: None
[2022-11-22] MEDS: Oxytocin 15 Units/NS 250ml 15 UNITS/250 ML IV.SOLN 83 UNITS IV (18:05)
[2022-11-22] MEDS: Ibuprofen 600 MG Tablet PO (20:17)
[2022-11-22 20:36] LABS: Bedside Glucose 85 mg/dL (74-106)
[2022-11-22] MEDS: Acetaminophen 500 MG Tablet 1000 MG PO (22:41)
[2022-11-23] VITALS (10 sets, daily range): BP systolic 106–131; BP diastolic 58–75; PULSE 74–101; RESP 16–20; TEMP 36.4–36.9; O2SAT 97–98
[2022-11-23] MEDS: Ibuprofen 600 MG Tablet PO ×2 (02:18→18:55)
[2022-11-23] MEDS: Acetaminophen 500 MG Tablet 1000 MG PO ×3 (05:09→18:55)
[2022-11-23 05:41] LABS: Bedside Glucose 100 mg/dL (74-106)
--- NOTE | 2022-11-23 08:52 | PCM.PN.OB ---
Subjective Subjective Patient reports intense cramps - worse when . Objective Data Objective Data Vital Signs: Vital Signs Temp Pulse Resp BP Pulse Ox O2 Del Method 99.9 F H 85 18 123/64 H 99 Room Air 11/22/22 19:42 11/23/22 04:24 11/23/22 04:23 11/23/22 04:24 11/22/22 19:42 11/23/22 04:23 Oxygen Delivery Method Room Air Weight: 204 lb 5.896 oz Body Mass Index (BMI) 32.1 Intake & Output: Intake and Output for Last 24 Hours 11/21/22 11/22/22 11/23/22 23:59 23:59 23:59 Intake Total 3138.91 / 3138.91 Output Total 1600 / 1600 600 / 600 Balance 1538.91 / 1538.91 -600 / -600 Lab / Micro Data Result Diagrams: 11/22/22 07:35 Labs: Laboratory Results - last 24 hr 11/22/22 07:35: Blood Type A POSITIVE, Antibody Screen NEGATIVE 11/22/22 08:58: POC Glucose 89 11/22/22 12:45: POC Glucose 85 11/22/22 15:21: POC Glucose 92 11/22/22 16:36: POC Glucose 83 11/22/22 19:56: POC Glucose 85 11/23/22 05:19: POC Glucose 100 Physical Exam Const alert, oriented x3 and no apparent distress HEENT normocephalic GI soft to palpation, non-tender and non-distended GI Narrative: fundus firm, mid & below umbilicus Extremity normal to inspection and no calf tenderness Assessment & Plan (1) Gestational diabetes, diet controlled: COMMENT: PPD#1 (2) (spontaneous vaginal delivery): PLAN: Plan FBS 100 this AM. Plan for PP screening. Cramps - patient reassured this is common. May be more intense d/t her back problems. IM toradol ordered. Routine PP care.
[2022-11-23] MEDS: Ketorolac 30 MG/ML Syringe IM (10:29)
--- NOTE | 2022-11-23 16:53 | DCINST_ITS ---
Discharge Instructions Procedure Vaginal Delivery Diet Discharge Diet: No restrictions Activity May resume sexual activity in: 6-8 weeks Dressing / Incision Call your doctor if you observe: Fever of 101 or Higher, Inability to urinate, Using more than 1 pad per hour and Uncontrolled pain Follow Up Care Please Follow Up With: Maggy Chatman MD When: 1-2 weeks post and again at 6 weeks post . [phone] Test Results: Test results from this visit will be discussed in further detail at your follow- up appointment, if applicable. Discharge Plan Admission Admit Date/Time: 11/22/22 07:05 Attending Provider: Carmelita Millan Primary Care Provider: Joe Reeves Discharge Orders/Prescriptions Prescriptions: No Action 1 1 mg Tablet 1 tab PO DAILY nicotine 22 mg/24 hr Patch 24 Hour 22 mg transdermal DAILY famotidine 20 mg Tablet 20 mg PO DAILY ferrous sulfate 27 mg iron Tablet 287 mg PO DAILY Referrals / Follow Up: Joe Reeves MD [Primary Care Provider] -
--- NOTE | 2022-11-23 18:30 | CASEMGMT ---
Social Work Assessment Labor and Delivery Unit Patient Address: [facility] [address] [place] [address] Phone number: [phone] Date of Referral: 11/22/22 Time of Referral:? 7:34 Referred By: BRIT Flores/ SPEEDY Millan Date of Intervention: 11/23/22? Time of Intervention:? 18:30 Reason for Referral: hx AOD, MH History obtained from: medical records, mother of baby (MOB) and father of baby (FOB) Household composition: MOB reports she and FOB are renting a home together with MOB?s daughter and their NB. MOB reports their home has adequate space, no housing concerns. Patient's parent/guardian status: MOB reports she has been with MELISSA, Jhonny 25 years old, for 1 year but have been in a relationship together previously. FORuth Ann is actively involved with children and has a seven year old son living outside of the home. MOB reports no concerns with DV, AOD or MH for FOB. FOB reports family history of MH. Medical History: MOB was engaged in care with [facility] OB Ruth and Monty beginning around 6 weeks. MOB reports this is her second that resulted in the of their second child, NB, Anita. Iris was born 11/22/22, weighing 8 pounds 9 ounces, and Apgars 8/9. MOB report NB?s boot trimmer will be MD Us. JANINA plans to breast feed and discuss control options with her OB at follow up appointment. Educational Status: MOB reports highest level of education is some college, no learning concerns. ? Financial Status: MOB reports she is employed at [employer] and will have 6 weeks of maternity leave then four weeks paid time off. 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 No financial concerns reported. Infant Supplies: MOB reports having all the supplies needed including a car seat, bassinet in their bedroom, clothes and diapers/wipes. MOB reports NB will transition to a crib in their own room when appropriate. Childcare/Caregiver(s): MOB reports she will be home with NB for 10 weeks. MOB explained they have support from family, friends and MOB?s daughter?s grandmother lives close and can assist with exceptional children's teacher as well. Transportation: MOB report they both have vehicles, no concerns. ?? Programs/Agencies Involved: ??MOB reports she receives insurance and SNAP services with [employer] [facility] [employer]. MOB reports she previously engaged in [facility] but didn?t have a positive experience with the worker. MOB plans to resume [facility] services. MOB declined referrals at this time. ?? Children Services/Legal Issues: None reported??? Behavioral Health Issues: ??Mental Health History:? MOB reports history of anxiety and depression. MOB states her symptoms have been manageable since her life stressors have gone down over the years. MOB reports previous mental health services and AOD use but is currently sober. MOB is currently using a nicotine patch and states she does not plan to smoke. Family/Social Stressors:? No stressors identified. Support Systems: MOB reports she is supported by FOB, their family and many friends. Depression/Shaken Baby/Safe Sleeping: SW educated MOB on depression/anxiety as well as shaken baby and safe sleep. MOB report NB will be sleeping in a basinet beside their bed but has a crib in her nursey to transition to when she is older. ANGELIKA provided MOB with educational information as well as resources on the topics. MOB report understanding and voice no other needs. SW encouraged MOB to contact OB or PCP if she is concerned with symptoms. ??? ASSESSMENT:? SW met with MOB and introduced herself and role as [facility] Cuprous Chloride Helper. MOB in agreement to speak with SW with FOB present. SW utilized open and close ended questions to gather information needed for an assessment. MOB report having supplies needed, identified supports and reports services with [facility] and a plan to reengage in [facility] services. MOB report history of depression and anxiety as well as AOD use but reports her symptoms have been manageable for years and is currently sober. ANGELIKA educated MOB and FOB on concerns of secondhand smoke and discussed safety plan in the event they do decide to smoke, encouraging MOB/ FOB to wash their hands, change their clothes, as well as give NB to safe adult not using substances to decrease exposure to secondhand smoke. ANGELIKA educated MOB on safe sleep, shaken baby and PPD/A. SW also provided local resources for [facility]. MOB was receptive towards information and reports no other needs. ANGELIKA updated RN of resources provided, no concerns. PLAN:? ?No other services requested or indicated.MOB to follow up with [facility] Karen WILLOUGHBY, SANDY
== END 2022-11-23 19:15 | disposition home or self-care (01) | DRG 560 ==
PROVIDERS: Admitting Provider Obstetrics & Gynecology; PCP Family Medicine; Referring Provider Obstetrics & Gynecology; Visit Provider Obstetrics & Gynecology
DX: O24.420 Gestational diabetes mellitus in childbirth, diet controlled (principal); Z37.0 Single live birth; Z3A.39 39 weeks gestation of pregnancy; Z86.19 Personal history of other infectious and parasitic diseases; Z87.891 Personal history of nicotine dependence
CPT/HCPCS: 59025; 59050; 80307; 82962; 85025; 86780; 86850; 86900; 86901; 99221; J7120; G0378

== ENCOUNTER 2023-02-16 16:17 | Emergency (ER) | payer MEDICAID, SELFPAY ==
[2023-02-16 16:18] VITALS: BP 100/76; PULSE 69; RESP 17; TEMP 36.2; O2SAT 99
[2023-02-16] MEDS: Ketorolac 15 MG/ML Vial IM (17:35)
--- NOTE | 2023-02-16 17:42 | EDS_ITS ---
HPI <ROSETTE Bae - Last Filed: 02/16/23 21:44> History of Present Illness Chief Complaint: Back Narrative Narrative: Patient presenting today with an exacerbation of her chronic lumbar back pain that started this morning. She reports that she has spinal stenosis and was told she has 3 herniated disks in her back. She had a baby 3 months ago and has been doing a lot of bending over to lift the baby up but denies any acute injury to her back. She was supposed to start physical therapy on Sunday but had to reschedule due to schedule conflict. She reports that she is having a difficult time ambulating today due to the pain. She feels like her buttocks is numb bilaterally. She denies fever, chills, bowel or bladder incontinence, and saddle paresthesia. PFS <ROSETTE Bae - Last Filed: 02/16/23 21:44> [facility] Medical History ADHD Anxiety Asthma Depression Gestational diabetes Headache Lower back pain depression Skin cancer Home Medications [id number] 1 mg tablet 1 tab PO DAILY 10/28/22 [History Last Taken 11/21/22 18:00] famotidine 20 mg tablet 20 mg PO DAILY indigestion 11/15/22 [History Last Taken 11/21/22 22:00] ferrous sulfate 27 mg iron tablet 287 mg PO DAILY anemia 11/15/22 [History Last Taken 11/21/22 18:00] nicotine 22 mg/24 hr daily transdermal patch 22 mg transdermal DAILY nicotine patch 11/15/22 [History Last Taken 11/22/22 10:00] hydrocodone-acetaminophen 5-325mg 5mg-325mg 1 tab PO Q4H PRN PRN Pain 3 days #7 TABLETS 02/16/23 [Rx Last Taken Unknown] naproxen 500 mg tablet 500 mg PO BID #14 tabs 02/16/23 [Rx Last Taken Unknown] prednisone 20 mg tablet 40 mg (2 x 20 mg) PO DAILY 5 days #10 tabs 02/16/23 [Rx Last Taken Unknown] Allergy/AdvReac Type Severity Reaction Status Date / Time cetirizine [From [facility], [place]] Allergy difficulty Verified 02/16/23 16:17 breathing, racing heart Surgical History History of surgery Social History Smoking Status: Unknown if ever smoked details: Occasionally substance use type: does not use ROS <ROSETTE Bae - Last Filed: 02/16/23 21:44> ROS ED Constitutional Constitutional ED: Denies chills or fever(s) Cardiovascular Cardiovascular: Denies chest pain Respiratory/Chest Respiratory/Chest: Denies cough or dyspnea Gastrointestinal Gastrointestinal: Denies abdominal pain, nausea or vomiting Genitourinary Genitourinary ED: Denies dysuria, hematuria or urinary urgency Musculoskeletal Musculoskeletal: Reports back pain Integumentary Denies abscess, Abrasions or rash Neurologic Neurologic: Reports paresthesias; Denies weakness EXAM <ROSETTE Bae - Last Filed: 02/16/23 21:44> Physical Exam Const Vital Signs: 02/16/23 16:18 02/16/23 20:55 Temperature 97.1 F L Temperature Source Temporal Pulse Rate 69 70 Respiratory Rate 17 16 Blood Pressure 100/76 116/61 Blood Pressure Mean 84 79 Pulse Ox 99 97 Oxygen Delivery Method Room Air Room Air Positive well nourished, well developed and no apparent distress General Appearance ED: well developed HEENT Reports normocephalic and head/scalp atraumatic Mouth ED: Yes moist mucous membranes normal Eyes PERRL and EOMs intact bilaterally Neck full ROM and supple Chest Wall inspection of chest normal Resp normal respiratory effort and clear to auscultation bilaterally Cardio regular rate and regular rhythm GI soft to palpation, non-tender, non-distended and no masses Back/Spine Back/Spine Narrative: Pain to palpation to the midline lumbar spine as well as left paraspinal tenderness. Lumbar Spine / Lower Back: ROM limited Extremity normal to inspection and full ROM Neuro oriented x3, CN's II-XII intact bilaterally, moves all extremities, no focal motor deficits and no sensory deficits noted Sensorium / Orientation: awake and alert Motor Exam: strength 5/5 throughout Psych mental status grossly normal and thought process normal Skin no rashes or lesions noted and no wounds <Dr. Mai Wang DO - Last Filed: 02/16/23 23:18> Physical Exam Const Vital Signs: 02/16/23 16:18 02/16/23 20:55 Temperature 97.1 F L Temperature Source Temporal Pulse Rate 69 70 Respiratory Rate 17 16 Blood Pressure 100/76 116/61 Blood Pressure Mean 84 79 Pulse Ox 99 97 Oxygen Delivery Method Room Air Room Air [facility] <ROSETTE Bae - Last Filed: 02/16/23 21:44> [facility] Narrative Medical decision making narrative: Patient presenting today due to lumbar back pain that she has had since this morning. She reports a history of chronic lower back pain that worsened today without any known cause. She did not injure her back in any way. She has had a difficult time ambulating today due to the pain. She does appear to be very uncomfortable on exam, she was given IV morphine and Toradol here for pain. She was also given IV fluids as she states she has not urinated a whole lot today. Patient has intact strength and sensation but given her degree of pain a lumbar CT will be obtained. She does not have any symptoms concerning for cauda equina syndrome or spinal abscess. UA obtained to rule out UTI and is negative. She was given additional pain control. CT shows multilevel degenerative disc disease and spondylolisthesis. Patient was given a referral for Dr. Sullivan, prescriptions for prednisone, Estelline, and naproxen. She has been given strict return instructions will be discharged with stable condition. She is comfortable with plan. Lab Data Labs: Laboratory Results - last 24 hr 02/16/23 20:12 Urine Color Yellow Urine Clarity Clear Urine pH 6.5 Ur Specific Dixon 1.015 Urine Protein 15 H Urine Glucose (UA) Normal Urine Ketones Negative Urine Occult Blood 25 H Urine Nitrite Negative Urine Bilirubin Negative Urine Urobilinogen Normal Ur Leukocyte Esterase 25 H Urine RBC 0-5 SEEN Urine WBC 0-5 SEEN Ur Squamous Epith Cells 0-5 SEEN Urine Bacteria 0 SEEN Urine Mucus 0 SEEN Radiography Diagnostic Testing: Clinical Impression(s) from Imaging Studies Lumbar Spine CT 02/16/23 19:21 IMPRESSION: No evidence of acute lumbar spinal fracture or spondylolisthesis. Mild multilevel degenerative disc disease and spondylosis. 1.4 cm nonobstructing stone in the right mid renal pole. Electronically Signed: Mat Berg MD at 21:12 EDT , <Dr. Mai Reddingleonarda, DO - Last Filed: 02/16/23 23:18> [facility] Narrative Medical decision making narrative: Patient presenting today due to lumbar back pain that she has had since this morning. She reports a history of chronic lower back pain that worsened today without any known cause. She did not injure her back in any way. She has had a difficult time ambulating today due to the pain. She does appear to be very uncomfortable on exam, she was given IV morphine and Toradol here for pain. She was also given IV fluids as she states she has not urinated a whole lot today. Patient has intact strength and sensation but given her degree of pain a lumbar CT will be obtained. She does not have any symptoms concerning for cauda equina syndrome or spinal abscess. UA obtained to rule out UTI and is negative. She was given additional pain control. CT shows multilevel degenerative disc disease and spondylolisthesis. Patient was given a referral for Dr. Sullivan, prescriptions for prednisone, Estelline, and naproxen. She has been given strict return instructions will be discharged with stable condition. She is comfortable with plan. I have personally performed a face to face assessment of the patient and have reviewed the MICHAEL Note. I performed a substantive portion of the visit including all aspects of the following. My ely findings include: History is patient is a 27-year-old female presenting with acute on chronic low back pain. It is diffuse in her lower back. No significant midline tenderness. Has been told she has degenerative disc disease in the past and has been referred to physical therapy but has not had time to follow-up. She is about 3 months however she is not currently breast-feeding. She took Tylenol for pain prior to arrival. She was given IM Toradol with no significant improvement of pain. She has subjective paresthesias of the left lateral leg. Incensed tach strength with plantar and dorsiflexion. No clonus of the lower extremities. Decreased reflexes of the left patella however she has normal Babinski's bilaterally. Would not be surprised if she does have some type of herniated disc but do not think she has signs of cauda equina syndrome, acute cord syndrome, epidural abscess and I do not think she requires emergent MRI. Is given further pain control. Does not have signs of acute urinary retention on bladder scan. Is given some IV fluids as she has had little p.o. intake and having a hard time producing urine. She is given further morphine and Percocet for pain control. We will give her referral for spine surgery. We will give her a short course of Estelline as well as prednisone in the emergency room. Given first dose of prednisone in the emergency room. At this time patient does not need to be admitted for debility/intractable pain. Is given return precautions however. Discharged home in stable condition. Other additions or changes: [None] Lab Data Attestation: I reviewed the patient's lab results. Labs: Laboratory Results - last 24 hr 02/16/23 20:12 Urine Color Yellow Urine Clarity Clear Urine pH 6.5 Ur Specific Dixon 1.015 Urine Protein 15 H Urine Glucose (UA) Normal Urine Ketones Negative Urine Occult Blood 25 H Urine Nitrite Negative Urine Bilirubin Negative Urine Urobilinogen Normal Ur Leukocyte Esterase 25 H Urine RBC 0-5 SEEN Urine WBC 0-5 SEEN Ur Squamous Epith Cells 0-5 SEEN Urine Bacteria 0 SEEN Urine Mucus 0 SEEN Radiography Diagnostic Testing: Clinical Impression(s) from Imaging Studies Lumbar Spine CT 02/16/23 19:21 IMPRESSION: No evidence of acute lumbar spinal fracture or spondylolisthesis. Mild multilevel degenerative disc disease and spondylosis. 1.4 cm nonobstructing stone in the right mid renal pole. Electronically Signed: Mat Berg MD at 21:12 EDT Reading Location ID and State: [facility] / [place] Tel , Service support , Discharge Plan Triage Chief Complaint: Back ED Midlevel Provider: Sveta Awad ED Provider: Mai Wang Dx/Rx/DC Orders Clinical Impression: Lumbar back pain Instructions: ED Back Care Tips Prescriptions: New prednisone 20 mg tablet 40 mg PO DAILY 5 Days Qty: 10 0RF naproxen 500 mg tablet 500 mg PO BID Qty: 14 0RF hydrocodone-acetaminophen 5-325 mg tablet 1 tab PO Q4H PRN PRN (Reason: Pain) 3 Days Qty: 7 0RF No Action 1 1 mg Tablet 1 tab PO DAILY nicotine 22 mg/24 hr Patch 24 Hour 22 mg transdermal DAILY famotidine 20 mg Tablet 20 mg PO DAILY ferrous sulfate 27 mg iron Tablet 287 mg PO DAILY Primary Care Provider: Joe Reeves Referrals: Joe Reeves MD [Primary Care Provider] - Wai Sullivan DO [Med Staff - Active Staff] - 3-5 Days Activity Restrictions/Additional Instructions: Please follow-up with the orthopedic doctor we have referred you to and return for any worsening of your symptoms. Disposition Disposition: Home, Self Care
[2023-02-16] MEDS: 0.9% Normal Saline 1,000 ML 999 ML IV (18:18)
[2023-02-16] MEDS: Morphine 4 MG/ML Syringe IV (18:18)
--- NOTE | 2023-02-16 19:21 | CT_ITS ---
INDICATION: back pain EXAMINATION: CT Spine Lumbar W/O Contrast Injection TECHNIQUE: Helically acquired images were obtained of the lumbar spine. 2D reformats were reviewed. A radiation dose optimization technique was used for this scan. IV Contrast dosage and agent: None. COMPARISON: None. FINDINGS: VERTEBRAE: No fracture or traumatic subluxation. No discrete lytic or blastic abnormality observed. Normal alignment. DISCS and SPINAL CANAL: Mild multilevel degenerative disc disease and spondylosis. No critical stenosis. VISUALIZED ABDOMEN: 1.4 cm nonobstructing stone in the right mid renal pole. There is no retroperitoneal adenopathy. CT/Spine Lumbar without Contrast IMPRESSION: No evidence of acute lumbar spinal fracture or spondylolisthesis. Mild multilevel degenerative disc disease and spondylosis. 1.4 cm nonobstructing stone in the right mid renal pole. Electronically Signed: Mat Berg MD at 21:12 EDT ,
[2023-02-16 20:25] LABS: Bacteria 0 SEEN /hpf (None Seen); Color, Urine Yellow (Yellow); Glucose, Dipstick Normal (Normal); Ketone-Dipstick Negative (Negative); Leukocyte Esterase-Dipstick 25 /ul (Negative); Mucous, Urine 0 SEEN /hpf (<or=2+); Nitrite-Dipstick Negative (Negative); Occult Blood-Urine 25 /ul (Negative); Protein-Dipstick 15 mg/dl (Negative); Specific Gravity, Urine 1.015 (1.002-1.030); Urine Bilirubin Dipstick Negative (Negative); Urine Clarity Clear (Clear); Urine Urobilinogen Normal (Normal); Urine pH 6.5 (5.0 - 8.0)
[2023-02-16 20:32] LABS: Red Blood Cells-Urine 0-5 SEEN /hpf (0-5); Squamous Epithelial Cells - UA 0-5 SEEN /hpf (5-10); White Blood Cells 0-5 SEEN /hpf (0-5)
[2023-02-16 20:55] VITALS: BP 116/61; PULSE 70; RESP 16; O2SAT 97
[2023-02-16] MEDS: Oxycodone/Apap 5/325 Tablet PO (21:10)
[2023-02-16 21:11] VITALS: BMI 30.7
[2023-02-16] MEDS: morphine 8 MG/ML Syringe 6 MG IV (23:08)
[2023-02-16] MEDS: predniSONE 20 MG Tablet 60 MG PO (23:09)
[2023-02-16 23:16] VITALS: BP 116/68; PULSE 69; RESP 16; O2SAT 100
== END 2023-02-16 23:28 | disposition home or self-care (01) ==
PROVIDERS: Physician Assistant; Emergency Provider Emergency Medicine; PCP Family Medicine; Visit Provider Emergency Medicine
DX: O99.893 Other specified diseases and conditions complicating puerperium (principal); M47.816 Spondylosis without myelopathy or radiculopathy, lumbar region; J45.909 Unspecified asthma, uncomplicated; O99.53 Diseases of the respiratory system complicating the puerperium
CPT/HCPCS: 72131; 81001; 96361; 96372; 96374; 96376; 99285; J7030

== ENCOUNTER → 2023-04-16 | Outpatient (CLI) | payer MEDICAID, SELFPAY ==
--- NOTE | 2023-04-16 06:41 | MRI_ITS ---
INDICATION: INTERVERTEBRAL DISC DISPLACEMENT, LOW BACK PAIN, BILAT LEG PAIN EXAMINATION: MRI - MR Spine Lumbar W/O Contrast TECHNIQUE: Multiplanar and multisequence MR images of the lumbar spine. IV Contrast Dosage and Agent: None. COMPARISON: 03/10/2020 MRI. FINDINGS: Spondylosis, degenerative disc disease and facet arthrosis from L3 through S1. No acute abnormal bone marrow signal. No fracture or subluxation. L1-L2: Unremarkable. L2-L3: Unremarkable. L3-L4: Small circumferential disc bulge with no central canal stenosis. Mild bilateral neural foraminal narrowing. L4-L5: Circumferential disc bulge with a focal left paracentral disc protrusion contacting but not significantly displacing the left L5 nerve root. No significant central canal stenosis. Mild bilateral neural foraminal narrowing. L5-S1: Circumferential disc bulge with a focal central/left paracentral disc protrusion contacting but not significantly displacing the left S1 nerve root. No significant central canal stenosis. Moderate to severe left and moderate right neural foraminal narrowing. CONUS MEDULLARIS/CAUDA EQUINA: Unremarkable. SOFT TISSUES: Unremarkable. MRI/Spine Lumbar (Routine) IMPRESSION: Degenerative changes and disc protrusions as described above contacting but not significantly displacing the left L5 and S1 nerve roots. Overall appearance is unchanged as compared to 03/10/2020. Electronically Signed: Wai Wilson DO at 7:46 EDT ,
== END | disposition home or self-care (01) ==
LOC: MRI 06:34
PROVIDERS: PCP Family Medicine; Referring Provider Orthopaedic Surgery; Visit Provider Orthopaedic Surgery
DX: M51.26 Other intervertebral disc displacement, lumbar region (principal)
CPT/HCPCS: 72148

== ENCOUNTER 2023-05-11 11:31 | Day surgery (SDC) | payer MEDICAID, SELFPAY ==
--- NOTE | 2023-05-09 13:57 | PCM.HP.BLA ---
History and Physical Date of Admission: 05/11/23 HPI: The patient is a 27 year old female presenting for pre-operative visit. She is scheduled for LEEP of the cervix and IUD insertion, for contraception management and MANUEL 3 on 05/11/23. Procedure discussed along with risks, benefits and complications. Other alternatives discussed for management. Consent form signed? Yes. ? ? PAST MEDICAL HISTORY PAST MEDICAL HISTORY Diagnosis Date ? ASCUS with positive high risk HPV cervical 09/26/2019 ? Asthma 11/29/2011 ? 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 Bulging of intervertebral disc between L4 and L5 and L5 and S1 09/07/2015 ? Chest pain 04/29/2010 ? Chlamydia infection 09/23/2013 ? Depression 05/26/2011 ? Depression complicating , antepartum 08/02/2012 ? Diet controlled gestational diabetes mellitus (GDM) in second trimester 11/08/2022 ? 11/08/22- 2 levels out of 3 elevated. Supplies and referrals ordered. Alexa Bartholomew APRN.CNM ? Generalized anxiety disorder ? ? GERD (gastroesophageal reflux disease) ? ? Hepatitis C 2018 ? 2019 cured after medication course. ? High grade squamous intraepithelial cervical dysplasia ? ? History of suicide attempt 2014 ? cutting wrist ? 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 Migraine headache 05/26/2011 ? other ? ? Sever's Disease, 2006, resolved ? Other acne 01/27/2010 ? Pain in joint, site unspecified ? ? AC joint tear, 2005 ? Patient requested diagnostic testing 04/18/2012 ? 04/18/2012 Patient desires early screening in with sequential testing. ? Poor support system complicating 04/18/2012 ? 04/18/2012The father of the baby is aware that she is , but does not wish to be involved. Patient states her parents are very supportive. Patient is tearful for some of this visit today due to the father of the baby. She states he has put pressure on her in the past to have an , but she does not wish to do that. Patient was given a brochure on the care center and WIC. ? depression ? ? PTSD (post-traumatic stress disorder) ? ? Rosacea 01/27/2010 ? Rubella non-immune status 04/22/2012 ? Skin cancer ? ? Teen 04/22/2012 ? July 04, 2012 Flu vaccine given ? Telangiectasia 01/27/2010 ? Tobacco use disorder ? ? ? PAST SURGICAL HISTORY PAST SURGICAL HISTORY Procedure Laterality Date ? INSERTION OF IUD ? 12/02/2013 ? MIRENA IUD ? 2019 ? Removed 12/2021 ? PAST SURGICAL HISTORY OF ? 01/01/2010 ? Removal of 4 [place] Teeth ? PAST SURGICAL HISTORY OF ? ? ? basal cell carcinoma removed from scalp ? ? ? CURRENT MEDICATIONS Current Outpatient Medications Medication Sig Dispense Refill ? methocarbamol (ROBAXIN) 500 mg tablet Take 500 mg by mouth four times daily. ? ? ? lisdexamfetamine (VYVANSE) 40 mg capsule Take 1 capsule by mouth once daily for 30 days. 30 capsule 0 ? tiZANidine (ZANAFLEX) 4 mg tablet Take 1 tablet by mouth at bedtime as needed (muscle spasms). 30 tablet 5 ? SUMAtriptan (IMITREX) 50 mg tablet Take 1 tablet by mouth once daily. prn 9 tablet 0 ? albuterol HFA (PROAIR HFA) 90 mcg/actuation inhaler Inhale 2 Puffs as instructed every 4 hours as needed for wheezing/shortness of breath. Used for seasonal allergies 8.5 g 3 ? levonorgestrel (PLAN B ONE-STEP) 1.5 mg tab Take 1 tablet by mouth one time only for 1 dose. (Patient not taking: Reported on 05/09/2023) 1 tablet 0 ? Etonogestrel-Ethinyl Estradiol (NUVARING) 0.12-0.015 mg/24 hr vaginal ring Use 1 Each vaginally as directed. INSERT ONE(1) RING VAGINALLY AND LEAVE IN PLACE FOR THREE WEEKS, THEN REMOVE FOR 1 WEEK. (Patient not taking: Reported on 05/09/2023) 3 Each 3 ? No current facility-administered medications for this visit. ? ? ALLERGIES: Zyrtec [Cetirizine Hcl] ? PERSONAL HISTORY: SOCIAL HISTORY Social History ? Tobacco Use ? Smoking status: Former ? ? Packs/day: 1.00 ? ? Years: 9.00 ? ? Additional pack years: 0.00 ? ? Total pack years: 9.00 ? ? Types: Cigarettes ? Smokeless tobacco: Current ? Tobacco comments: ? ? Vapes Vaping Use ? Vaping Use: current everyday user ? Substances: Nicotine ? Devices: Pre-filled or refillable cartridge Substance Use Topics ? Alcohol use: Not Currently ? Drug use: Yes ? ? Types: Heroin, Marijuana ? ? Comment: Patient states I have used multiple drugs in the past ? FAMILY HISTORY: FAMILY HISTORY FAMILY HISTORY Problem Relation Age of Onset ? Skin Cancer Mother ? ? Hypertension Mother ? ? Heart Failure Mother ? ? Liver Cancer Mother 66 ? Heart Father ? ? TRIPLE BYPASS SURGERY ? Hypertension Father ? ? Diabetes Father ? ? Diabetes Sister ? ? No Known Problems Sister ? ? No Known Problems Sister ? ? No Known Problems Brother ? ? No Known Problems Brother ? ? No Known Problems Brother ? ? Heart Maternal Grandmother ? ? from heart problems ? Heart Maternal Grandfather ? ? from heart problems ? Cancer Maternal Grandfather ? ? lung ? Hypertension Maternal Grandfather ? ? No Known Problems Daughter ? ? ? REVIEW OF SYMPTOMS: GENERAL: denies fevers or chills ENDOCRINOLOGY: has not been on steroids Cardiology : denies palpitations or chest pain Respiratory: denies SOB or cough Hematology: denies history of prolonged bleeding or easy bruising or VTE Allergy: Denies history of personal or family history of allergy to anesthesia ? PHYSICAL EXAMINATION: ? VITALS: Blood pressure 112/74, pulse 104, resp. rate 16, height 5' 7 (1.702 m), weight 177 lb (80.3 kg), last menstrual period 02/13/2023, not currently . ? GENERAL: The patient is well nourished, well hydrated in no acute distress. , The patient is oriented to time, place, and person. NECK: Supple. No lynphadenopathy, normal thyroid, no thyromegaly. LUNGS: Clear to auscultation bilaterally. no wheezes, rhonchi or rales HEART: Regular rate and rhythm, Normal heart sounds, and No murmurs or gallops ? IMPRESSION: MANUEL 3 of cervix and IUD insertion ? PLAN: The risks/benefits/alternatives and personal involved for the planned LEEP of the cervix and IUD insertion were reviewed with the patient. Her questions were answered to her satisfaction and she desires to proceed. Consent was signed. I reviewed with her postop instructions and expectations. Doing procedure in OR due to anxiety surrounding office medical procedures ? I have reviewed and updated past medical and surgical history, medications and allergies Assessment & Plan Assessment/Plan (1) Encounter for IUD insertion: (2) MANUEL III (cervical intraepithelial neoplasia grade III) with severe dysplasia:
--- NOTE | 2023-05-11 | CER_PTH ---
PATIENT: KAPIL VERDUZCO [place] [facility] [place][id number] AGE/SX: 27/F ROOM: RE05/11/[address]: Dr. Carmelita Millan MD : 1995 BED: DIS: 05/11/2023 SPEC #: [id number] RECD: 05/11/23 18:12 STATUS: BRANDEN RENina #: [id number] CONNOR: 05/11/23 00:[address]: Carmelita Millan DEPT: SURGICAL PATHOLOGY RECD BY: Corey Hidalgo ENTERED: 05/14/23 10:48 SP TYPE: CERV OTHR DR: Dr. Joe Reeves MD Tissues: A - Uterine cervix, NOS B - Uterine cervix, NOS C - Endocervical Procedures: Surgery Specimen Level IV Surgery Specimen Level V HEADER OPERATION: LEEP cone, IUD insertion PRE-OP DIAGNOSIS: IUD insertion, MANUEL III with severe dysplasia TISSUE SUBMITTED: A - Anterior cervix, B - Posterior cervix, C - Endocervical curettings MICROSCOPIC DIAGNOSIS A. Anterior cervix, LEEP conization: Mild, moderate, and severe squamous dysplasia, MANUEL I-III (HSIL). See comment. B. Posterior cervix, LEEP conization: Mild, moderate, and severe squamous dysplasia, MANUEL I-III (HSIL). See comment. C. Endocervix, curettings: Strips of benign superficial endocervix. Fragments of benign lower uterine endometrium with mild chronic inflammation. No evidence of dysplasia. AM:gin 05/15/2023 COMMENT A. Moderate dysplasia focally extends to the endocervical margin of excision. The high-grade dysplasia involves endocervical glands. Immunohistochemistry ([id number]) for surrogate HPV marker (p16) supports the above diagnosis. B. Moderate dysplasia focally extends to the endocervical margin. The high-grade dysplasia involves endocervical glands. Immunohistochemistry ([id number]) for surrogate HPV marker (p16) supports the above diagnosis. Case has been reviewed in consultation with Dr. Jordan who concurs with the above diagnosis. IDC:FRANNIE MICROSCOPIC DESCRIPTION Slides are reviewed. GROSS DESCRIPTION A - Received in fixative is one container labeled with the patient's name and designated anterior cervix. The specimen consists of a piece of falk, indurated tissue, cervical LEEP conization measuring 3.3 x 1.6 cm and up to 1.0 cm in thickness. No mucosal lesion is identified. Non-mucosal surface is inked black. The specimen is serially sectioned and submitted entirely in four cassettes. B - Received in fixative is one container labeled with the patient's name and designated posterior cervix. The specimen consists of a piece of falk, indurated tissue, cervical LEEP conization measuring 3.5 x 1.5 cm and up to 0.7 cm in thickness. No mucosal lesion is identified. Non-mucosal surface is inked black. The specimen is serially sectioned and submitted entirely in four cassettes. C - Received in fixative is one container labeled with the patient's name and designated endocervical curettings. The specimen consists of multiple irregular fragments of falk mucoid tissue that in aggregate measure 2.0 x 0.6 x 0.1 cm. The specimen is totally submitted in one cassette. / SJ:gin 05/14/2023 TC:0 CPT: 35611 x2, 00187
--- NOTE | 2023-05-11 | IMM_PTH ---
PATIENT: KAPIL VERDUZCO LOC: [facility] – [place] U#:[id number] AGE/SX: 27/F ROOM: RE05/11/[address]: Dr. Carmelita Millan MD : 1995 BED: DIS: 05/11/2023 SPEC #: [id number] RECD: 05/15/23 13:28 STATUS: BRANDEN REQ #: [id number] CONNOR: 05/11/23 00:[address]: Carmelita Millan DEPT: IMMUNOHISTOCHEMISTRY RECD BY: Vivien David ENTERED: 05/15/23 13:30 SP TYPE: IMMUNO OTHR DR: Dr. Joe Reeves MD Tissues: A - UTERINE CERVIX LEEP B - UTERINE CERVIX LEEP Procedures: KI-67 (add) P16 (add) KI-67 (initial) PHYSICIAN & INSTITUTION [place] [id number] SPECIMEN INFORMATION: Tissue Source: A - Anterior cervix, B - Posterior cervix Clinical Info: MANUEL III with severe dysplasia Specimen Number: [id number] A1-A4, B1-B4 CPT code: 86432 x2, 17128 x14 METHODOLOGY: Deparaffinized sections of prefer/formalin-fixed tissue or PAP/DQ stained slides are incubated with monoclonal/polyclonal antibodies/oligonucleotide probes. Localization is made via biotin free immunoperoxidase method. Appropriate controls are performed and reacted as expected. Results on target cell population are indicated in the following table: RESULTS: ANTIBODY / CLONE RESULT Block A1 P16 (E6H4) positive, block-like Ki-67 (30-9) positive, high Block A2 P16 (E6H4) positive, block-like Ki-67 (30-9) positive, high Block A3 P16 (E6H4) positive, block-like Ki-67 (30-9) positive, moderate to high Block A4 P16 (E6H4) positive, block-like Ki-67 (30-9) positive, high Block B1 P16 (E6H4) positive, block-like Ki-67 (30-9) positive, high Block B2 P16 (E6H4) positive, block-like Ki-67 (30-9) positive, moderate to high Block B3 P16 (E6H4) positive, block-like Ki-67 (30-9) positive, high Block B4 P16 (E6H4) positive, block-like Ki-67 (30-9) positive, moderate to high These tests were developed and their performance characteristics determined by [facility]. They may not have been cleared or approved by the U.S. Food and Drug Administration. The FDA has determined that such clearance or approval is not necessary. The above immunohistochemical/dualISH markers are ordered and reviewed by the Pathologist. INTERPRETATION: A. Anterior cervix, LEEP conization: Severe squamous dysplasia, MANUEL III (HSIL). B. Posterior cervix, LEEP conization: Severe squamous dysplasia, MANUEL III (HSIL). AM:gin 05/16/2023
[2023-05-11 11:56] VITALS: BP 112/67; PULSE 94; RESP 18; TEMP 36.7; O2SAT 97; BMI 27.6
[2023-05-11 11:56] LABS: Internal QC Validated? YES +Cl - CLEAR BKGD; Pregnancy, Urine Negative Negative; Record Kit Lot#,Urine Preg HCG0000667200
[2023-05-11] MEDS: Acetaminophen 500 MG Tablet 1000 MG PO (12:00)
[2023-05-11] MEDS: Ketorolac 30 MG/ML Syringe IV (12:01)
[2023-05-11] MEDS: Lactated Ringers 1,000 ML 15 ML IV (12:03)
--- NOTE | 2023-05-11 14:30 | PCM.OPRPT ---
Problems Associated Problem List Diagnoses (1) MANUEL III (cervical intraepithelial neoplasia grade III) with severe dysplasia: (2) Encounter for IUD insertion: Report of Operation Date of Procedure: 05/11/23 Pre-Operative Diagnosis: High grade squamous dysplasia of the cervix, IUD insertion Post-Operative Diagnosis: same Surgery/Procedure Performed:: LEEP of the cervix and Liletta IUD insertion Description of Surgical Findings:: grossly normal cervix, vulva and vagina Surgeon: Carmelita Millan grade foreman: None Type of Anesthesia: MAC/Supplemental/Local Anesthesiologist: Corie Pacheco Special Medications: none Specimen's removed: LEEP cervix specimen, endocervical curettings Drains: none Estimated Blood Loss (mL): 10 Fluids Replaced: 500 mL Description of Procedure: Patient was taken to the operating room where she was prepped and draped in dorsal lithotomy position. Speculum was placed in the vagina. Cervix was identified and marked with Lugol solution. LEEP was then performed in the usual fashion with an loop electrode. An endocervical curettage was then performed and the specimens were handed off. Hemostasis was obtained with cautery. The Liletta IUD was then inserted in the usual sterile fashion. The uterus sounded to 7 cm. The strings were cut to 3 cm. Some Monsel solution was placed over the cervix. Sponge and needle counts were correct. A vaginal sweep was completed by me. I performed the entire procedure. Grafts/Implants Used: none Procedure Start Time: 14:42 Procedure Stop Time: 14:52 Complications none Admit VTE Documentation VTE Present on Admission: No VTE Mechan Device Prophylaxis: SCD's VTE Pharm Prophylaxis ordered?: No Reason prophylaxis not ordered:: Procedure Not Indicated
[2023-05-11] MEDS: Lidocaine 1% /Epi 1:100 (50ml) 50 ML VIAL (14:47)
[2023-05-11] MEDS: Iodine/Potassium Iodide 14ML Bottle 1 DRP TOPICAL (14:47)
[2023-05-11] MEDS: FERRIC SUBSULFATE 8 GM SOLN (14:47)
[2023-05-11] MEDS: Levonorgestrel IUD (Liletta) 1 EACH INTRA-UTER (14:50)
[2023-05-11 15:00] VITALS: BP 110/62; BP 112/67; PULSE 83; RESP 16; TEMP 36.6; O2SAT 97
[2023-05-11 15:04] VITALS: BP 112/67; BP 117/64; PULSE 79; RESP 16; O2SAT 98
[2023-05-11 15:09] VITALS: BP 112/67; BP 118/63; PULSE 85; RESP 16; O2SAT 97
[2023-05-11 15:12] VITALS: BP 112/67; BP 127/62; PULSE 82; RESP 16; TEMP 36.6; O2SAT 100
--- NOTE | 2023-05-11 15:38 | PCM.DC ---
Discharge Instructions Diet Discharge Diet: No restrictions Activity Return to work on:: 05/14/23 May shower in (days): 1 May resume sexual activity in: 2 weeks Lifting Restrictions: none Dressing / Incision Call your doctor if your incision/area has: Sudden Increased Bleeding and Foul Smelling Discharge Call your doctor if you observe: Fever of 101 or Higher and Using more than 1 pad per hour (for 2 hrs in a row) Follow Up Care Please Follow Up With: Carmelita Millan MD When: 2-4 weeks or as needed. Call [phone] to make an appointment or with any concerns or send a [employer] message. Test Results: Test results from this visit will be discussed in further detail at your follow-up appointment, if applicable. Discharge Plan Admission Attending Provider: Carmelita Millan Primary Care Provider: Joe Reeves Discharge Orders/Prescriptions Prescriptions: No Action etonogestrel-ethinyl estradiol [EluRyng] 0.12-0.015 mg/24 hr ring 1 vag ring vaginal DAILY lisdexamfetamine [Vyvanse] 30 mg capsule 30 mg PO DAILY Patient Comments: TAKE 1 CAPSULE BY MOUTH ONCE DAILY FOR 14 DAYS. methocarbamol 750 mg tablet 750 mg PO TID tizanidine 4 mg capsule 4 mg PO QHS albuterol 90 mcg/actuation aerosol 90 mcg inhalation PRN PRN (Reason: ASTHMA) Referrals / Follow Up: Joe Reeves MD [Primary Care Provider] - Disposition Disposition (needs filled in before D/C Order can be placed): Home, Self Care
[2023-05-11 15:48] VITALS: BP 112/67
== END 2023-05-11 15:54 | disposition home or self-care (01) ==
LOC: SDC 11:32 → AC 11:33
PROVIDERS: Anesthesiology; PCP Family Medicine; Referring Provider Obstetrics & Gynecology; Visit Provider Obstetrics & Gynecology
PROC: 0UBC7ZZ Excision of Cervix, Via Natural or Artificial Opening (ICD-10-PCS; CPT 57522; principal; 2023-05-11 12:45)
DX: Z30.430 Encounter for insertion of intrauterine contraceptive device (principal); D06.9 Carcinoma in situ of cervix, unspecified; F17.290 Nicotine dependence, other tobacco product, uncomplicated; J45.909 Unspecified asthma, uncomplicated
CPT/HCPCS: 58300; 00940; 81025; 88305; 88307; 88341; 88342; J7120; J2405

== ENCOUNTER 2023-06-04 17:55 | Emergency (ER) | payer MEDICAID, SELFPAY ==
[2023-06-04 17:57] VITALS: BP 122/79; PULSE 96; RESP 18; TEMP 37; O2SAT 99; BMI 28.7
--- NOTE | 2023-06-04 18:01 | EKG12_ITS ---
Test Reason : CP Blood Pressure : / mmHG Vent. Rate : 101 BPM Atrial Rate : 101 BPM P-R Int : 126 ms QRS Dur : 134 ms QT Int : 362 ms P-R-T Axes : 075 071 029 degrees QTc Int : 469 ms Sinus tachycardia Right bundle branch block Abnormal ECG Confirmed by FOUZIA EPPS, PRANAV ([id number]), editorial director LAURA GU ([id number]) on 06/13/2023 10:08:37 AM Referred By: AR/RU Confirmed By:PRANAV FRAGOSO MD
[2023-06-04 18:39] VITALS: BP 117/82; PULSE 88; RESP 14; O2SAT 98; O2SAT 99
--- NOTE | 2023-06-04 18:53 | RAD_ITS ---
STUDY: X-RAY CHEST REASON FOR EXAM: Female, 27 years old. chest pain TECHNIQUE: Single AP portable view of the chest. COMPARISON: 12/13/2020 FINDINGS: The lungs are clear and expanded. There is no demonstrated pleural abnormality. Normal size heart. Normal mediastinum and giulia. Normal visualized pulmonary arteries. Normal visualized aortic arch and descending thoracic aorta. Normal visualized thoracic spine. Normal visualized ribs, clavicles, and shoulders. There is no demonstrated abnormality of the visualized soft tissue structures of the upper abdomen. RAD/Chest 1 View (Portable) IMPRESSION: Normal x-ray examination of the chest. Electronically Signed: Miky Salinas MD at 19:10 EST ,
[2023-06-04 18:59] LABS: Absolute Neutrophil Count 5.6 X10^3/uL (2.0-7.7); Basophil# 0.03 X10^3/uL; Basophil% 0.3 % (0-1); Eosinophil# 0.18 X10^3/uL; Eosinophils% 1.8 % (0-5); Hematocrit 37.9 % (37-47); Hemoglobin 13.1 g/dL (12.0-15.0); Lymphocyte % 34.8 % (19-41); Mean Corp Hgb Conc 34.6 g/dL (32-36); Mean Corpuscular Hgb 30.2 pg (27.0-32.0); Mean Corpuscular Volume 87.3 fL (81-99); Mean Platelet Vol. 9.9 fl (6.2-12.0); Monocyte# 0.58 X10^3/uL; Monocyte% 5.9 % (0-10); NRBC Flagged by Analyzer 0 % (0-5); Neutrophil # 5.55 X10^3/uL (2.7-7.7); Platelet Count 309 K/mm3 (150-450); RBC Distribution Width CV 11.9 % (11.6-14.6); RBC Distribution Width SD 38.4 fl (35.1-43.9); Red Blood Count 4.34 M/mm3 (4.2-5.4); White Blood Count 9.8 K/mm3 (4.4-11.0)
--- NOTE | 2023-06-04 19:05 | ED.VIS.CHEST ---
HPI <ROSETTE Cottrell - Last Filed: 06/04/23 20:57> History of Present Illness Chief Complaint: Chest Pain Narrative Narrative: 27-year-old female states yesterday she was driving when her head felt fuzzy and her left hand and face cramped. She pulled over needed candy bar because she had not eaten much that day. Those symptoms seem to improve but then she developed midsternal chest pain. She went to [place] [facility] and had a normal EKG and chest x-ray. She states today she still has constant midsternal chest pain which becomes sharp with no clear trigger. She is mildly short of breath. No nausea vomiting or diaphoresis. No radiation of pain. She has had a mild dry cough recently. She vapes. Has no cardiopulmonary history. She is on oral control after a LEEP procedure several weeks ago PFS <ROSETTE Cottrell - Last Filed: 06/04/23 20:57> [facility]LY [facility] Medical History ADHD Anxiety Asthma Depression Gastric reflux Gestational diabetes Hepatitis History of edema History of Mohs micrographic surgery for skin cancer History of pain when walking History of steroid therapy Hypotension Lower back pain depression Skin cancer Substance abuse Vapes nicotine containing substance Wears partial dentures Home Medications lisdexamfetamine 30 mg capsule (Vyvanse) 30 mg PO DAILY 03/08/23 [History Last Taken Unknown] albuterol 90 mcg/actuation aerosol inhaler 90 mcg inhalation PRN PRN ASTHMA 03/19/23 [History Last Taken Unknown] methocarbamol 750 mg tablet 750 mg PO TID 03/19/23 [History Last Taken Unknown] tizanidine 4 mg capsule 4 mg PO QHS 03/19/23 [History Last Taken Unknown] ibuprofen 600 mg tablet 600 mg PO Q6H PRN Pain 20 days #30 TABLETS 05/11/23 [Rx Last Taken Unknown] Allergy/AdvReac Type Severity Reaction Status Date / Time cetirizine [From [facility]] Allergy difficulty Verified 06/04/23 18:45 breathing, racing heart Surgical History Hx of wisdom tooth extraction Social History Smoking Status: Current every day smoker tobacco type: cigarettes and e-cigarettes alcohol intake: never details: Occasionally substance use type: does not use ROS <ROSETTE Cottrell - Last Filed: 06/04/23 20:57> ROS ED ROS Narrative Constitutional: Negative for fever, chills, malaise. CVS: Positive for chest pain. Negative for palpitations, c syncope. Respiratory: Positive for shortness of breath, cough. GI: Negative for abdominal pain, nausea, vomiting. Neuro: Negative for headache. EXAM <ROSETTE Cottrell - Last Filed: 06/04/23 20:57> Physical Exam Narrative Exam Narrative: CONST: Patient sitting in no acute distress. EYES: Normal inspection. NECK: Normal inspection. RESP: No respiratory distress, CTAB. CVS: Regular rate and rhythm, no murmur, no gallop. ABD: Soft and nontender, no guarding or rebound, nondistended, no hepatosplenomegaly. SKIN: Color normal, no rash, warm, dry, intact. EXTREMITIES: Normal appearance, no pedal edema. NEURO: Oriented x4. PSYCH: Normal affect. Const Vital Signs: 06/04/23 17:57 06/04/23 18:39 06/04/23 18:39 Temperature 98.6 F Temperature Source Temporal Pulse Rate 96 88 Respiratory Rate 18 14 Respiratory Effort Blood Pressure 122/79 H 117/82 H Blood Pressure Mean 93 93 Pulse Ox 99 99 98 Oxygen Delivery Method Room Air Room Air Room Air 06/04/23 18:40 06/04/23 21:33 06/04/23 20:30 Temperature Temperature Source Pulse Rate 82 89 Respiratory Rate 18 18 Respiratory Effort Normal Non-Labored Blood Pressure 109/69 111/71 Blood Pressure Mean 82 84 Pulse Ox 100 100 Oxygen Delivery Method Room Air Room Air <Ammon Londono MD - Last Filed: 06/04/23 22:30> Physical Exam Const Vital Signs: 06/04/23 17:57 06/04/23 18:39 06/04/23 18:39 Temperature 98.6 F Temperature Source Temporal Pulse Rate 96 88 Respiratory Rate 18 14 Respiratory Effort Blood Pressure 122/79 H 117/82 H Blood Pressure Mean 93 93 Pulse Ox 99 99 98 Oxygen Delivery Method Room Air Room Air Room Air 06/04/23 18:40 06/04/23 21:33 06/04/23 20:30 Temperature Temperature Source Pulse Rate 82 89 Respiratory Rate 18 18 Respiratory Effort Normal Non-Labored Blood Pressure 109/69 111/71 Blood Pressure Mean 82 84 Pulse Ox 100 100 Oxygen Delivery Method Room Air Room Air [facility] <ROSETTE Cottrell - Last Filed: 06/04/23 20:57> [facility] Narrative Medical decision making narrative: Patient presents with chest pain that started yesterday and today is constant. She appears well and nontoxic. Vital signs stable. She has normal cardiopulmonary exam. Abdomen is soft and nontender. No lower extremity edema or calf tenderness is present. Differential includes ACS, PE, GERD, costochondritis, musculoskeletal among others. Cardiac work-up plus D-dimer was ordered since she is on oral control. EKG is sinus tachycardia at 1 1 bpm with RBBB. No acute ischemic changes. CBC, BMP, troponin are all WNL. CXR is negative. D-dimer is elevated so CTA is pending. Lab Data Attestation: I reviewed the patient's lab results. Labs: Laboratory Results - last 24 hr 06/04/23 06/04/23 18:50 21:35 WBC 9.8 RBC 4.34 Hgb 13.1 Hct 37.9 MCV 87.3 MCH 30.2 MCHC 34.6 RDW Std Deviation 38.4 RDW Coeff of Clarence 11.9 Plt Count 309 MPV 9.9 Immature Gran % (Auto) 0.200 Neut % (Auto) 57.0 Lymph % (Auto) 34.8 Lagrange % (Auto) 5.9 Eos % (Auto) 1.8 Baso % (Auto) 0.3 Absolute Neuts (auto) 5.6 Absolute Lymphs (auto) 3.40 Nucleated RBC % 0 D-Dimer Quant (PE/DVT) 0.53 H* Sodium 140 Potassium 3.9 Chloride 107 Carbon Dioxide 27.0 Anion Gap 6 BUN 13 Creatinine 0.81 Estim Creat Clear Calc 95.94 Est GFR (MDRD) Af Amer 107 Est GFR (MDRD) Non-Af 88 BUN/Creatinine Ratio 16.0 Glucose 99 Calcium 9.0 Troponin I High Sens 4 5 Radiography Diagnostic Testing: Clinical Impression(s) from Imaging Studies Chest X-Ray 06/04/23 18:53 IMPRESSION: Normal x-ray examination of the chest. Electronically Signed: Miky Salinas MD at 19:10 EST Reading Location ID and State: [id number] / [place] Tel , Service support , Chest CTA 06/04/23 20:03 IMPRESSION: Normal CTA chest examination, without a demonstrated pulmonary embolism or arterial dissection. Electronically Signed: Miky Salinas MD at 22:02 EST Reading Location ID and State: [id number] / [place] Tel , Service support , ED attending interpretation of 1-view chest x-ray shows normal heart size, no acute infiltrate, edema, or effusion. EKG Initial EKG: Attestation: I personally reviewed and interpreted this EKG as follows: Interpretation: No Acute Injury Pattern and Sinus Tachycardia Comments: Sinus tachycardia at 101 bpm Right bundle branch block No STEMI criteria <Ammon Londono MD - Last Filed: 06/04/23 22:30> [facility] MDM Narrative Medical decision making narrative: Patient presents with chest pain that started yesterday and today is constant. She appears well and nontoxic. Vital signs stable. She has normal cardiopulmonary exam. Abdomen is soft and nontender. No lower extremity edema or calf tenderness is present. Differential includes ACS, PE, GERD, costochondritis, musculoskeletal among others. Cardiac work-up plus D-dimer was ordered since she is on oral control. EKG is sinus tachycardia at 1 1 bpm with RBBB. No acute ischemic changes. CBC, BMP, troponin are all WNL. CXR is negative. D-dimer is elevated so CTA is pending. Dr. Londono: I have personally performed a face to face assessment of the patient and have reviewed the MICHAEL Note. I performed a substantive portion of the visit including all aspects of the following. My ely findings include: History is chest pain yesterday, seen in outside facility where EKG and chest x-ray were normal. Patient plans on following up with primary care provider, but noticed that her blood pressure started elevating to as high as 160 systolic. She presents with chest pain since yesterday. Exam is afebrile. Vital signs noted. Regular rate and rhythm. Lungs clear to auscultation bilaterally. Abdomen soft and nontender. Neurological examination nonfocal and nonlateralizing. Medical Decision Making: In the differential diagnosis would be ACS versus PE versus GERD versus costochondritis or musculoskeletal chest pain. Check EKG. EKG obtained and interpreted by myself independently as sinus tachycardia at 101 bpm without ectopy or acute ST changes. No STEMI. Check labs. Elevated D-dimer. Check CTA, negative for pulmonary embolism or dissection. I feel she be discharged safely home with follow-up to her primary care provider. Her blood pressure is normalized. Return instructions reviewed. Disposition is discharged home in stable condition. Other additions or changes: [None] History & Record Review Discussion w/independent historian: Patient Additional record(s) reviewed:: Prior ED visit Lab Data Labs: Laboratory Results - last 24 hr 06/04/23 06/04/23 18:50 21:35 WBC 9.8 RBC 4.34 Hgb 13.1 Hct 37.9 MCV 87.3 MCH 30.2 MCHC 34.6 RDW Std Deviation 38.4 RDW Coeff of Clarence 11.9 Plt Count 309 MPV 9.9 Immature Gran % (Auto) 0.200 Neut % (Auto) 57.0 Lymph % (Auto) 34.8 Lagrange % (Auto) 5.9 Eos % (Auto) 1.8 Baso % (Auto) 0.3 Absolute Neuts (auto) 5.6 Absolute Lymphs (auto) 3.40 Nucleated RBC % 0 D-Dimer Quant (PE/DVT) 0.53 H* Sodium 140 Potassium 3.9 Chloride 107 Carbon Dioxide 27.0 Anion Gap 6 BUN 13 Creatinine 0.81 Estim Creat Clear Calc 95.94 Est GFR (MDRD) Af Amer 107 Est GFR (MDRD) Non-Af 88 BUN/Creatinine Ratio 16.0 Glucose 99 Calcium 9.0 Troponin I High Sens 4 5 Radiography Diagnostic Testing: Clinical Impression(s) from Imaging Studies Chest X-Ray 06/04/23 18:53 IMPRESSION: Normal x-ray examination of the chest. Electronically Signed: Miky Salinas MD at 19:10 EST , Chest CTA 06/04/23 20:03 IMPRESSION: Normal CTA chest examination, without a demonstrated pulmonary embolism or arterial dissection. Electronically Signed: Miky Salinas MD at 22:02 EST , Discharge Plan Triage Chief Complaint: Chest Pain ED Midlevel Provider: Elma Gomez ED Provider: Ammon Londono Dx/Rx/DC Orders Clinical Impression: Elevated d-dimer, Chest pain Instructions: ED Chest Pain, Noncardiac, ED Pain, Acute, Uncertain Cause Prescriptions: No Action lisdexamfetamine [Vyvanse] 30 mg capsule 30 mg PO DAILY Patient Comments: TAKE 1 CAPSULE BY MOUTH ONCE DAILY FOR 14 DAYS. methocarbamol 750 mg tablet 750 mg PO TID tizanidine 4 mg capsule 4 mg PO QHS albuterol 90 mcg/actuation aerosol 90 mcg inhalation PRN PRN (Reason: ASTHMA) ibuprofen [ibuprofen] 600 mg tablet 600 mg PO Q6H PRN (Reason: Pain) 20 Days Qty: 30 1RF Primary Care Provider: Joe Reeves Referrals: Joe Reeves MD [Primary Care Provider] - 3-5 Days if not improving Disposition Disposition: Home, Self Care
[2023-06-04 19:23] LABS: Anion Gap 6 (5-15); BUN 13 mg/dL (7-18); Chloride 107 mmol/L (98-107); Creatinine, Serum 0.81 mg/dL (0.55-1.02); EST Glomerular Filtration Rate 88 mL/min (>60); Est Glom Filt Rate - Afr Amer 107 mL/min (>60); Estimated Creatinine Clearance 95.94 ml/min; Glucose 99 mg/dL (74-106); Potassium 3.9 mmol/L (3.5-5.1); Sodium Level 140 mmol/L (136-145); Troponin-I HS (w/2H Reflex) 4 pg/mL (3.0-54.0)
[2023-06-04 19:58] LABS: D-Dimer Quantitative (DVT/PE) 0.53 FEU/ug/m (0.27-0.49)
--- NOTE | 2023-06-04 20:03 | CT_ITS ---
STUDY: CTA CHEST REASON FOR EXAM: Female, 27 years old. chest pain RADIATION DOSAGE (If Supplied By Facility): CTDIvol = ( 10.72 ) mGy, DLP = ( 451.85 ) mGycm TECHNIQUE: The examination was performed with the intravenous administration of IV 100mL Isovue-370. Post-processing of the angiographic images was performed, with multiplanar reformation and 3D reconstruction. Individualized dose optimization techniques were used for this CT. COMPARISON: 05/29/2014, chest x-ray earlier today FINDINGS: Normal enhancement of the main pulmonary artery and right and left pulmonary arteries. Normal enhancement of the bilateral peripheral pulmonary arteries. There is no demonstrated pulmonary embolism. Normal thoracic aorta and visualized great vessels. There is no demonstrated aortic dissection. Normal heart and pericardium. Normal mediastinum. Normal hilar regions. Normal visualized trachea and bronchi. The lungs are well expanded. Normal pulmonary parenchyma. Normal pleura. Normal chest wall structures. Normal osseous structures. Small adenoma in the right adrenal gland. CT/CTA Chest W/WO Contrast IMPRESSION: Normal CTA chest examination, without a demonstrated pulmonary embolism or arterial dissection. Electronically Signed: Miky Salinas MD at 22:02 EST ,
[2023-06-04 20:30] VITALS: BP 111/71; PULSE 89; RESP 18; O2SAT 100
[2023-06-04 20:54] LABS: Reflex Troponin-HS? (from REC) Y
[2023-06-04] MEDS: Ketorolac 15 MG/ML Vial IV (21:31)
[2023-06-04 21:33] VITALS: BP 109/69; PULSE 82; RESP 18; O2SAT 100
[2023-06-04 22:17] LABS: Troponin-I HS 5 pg/mL (3.0-54.0)
[2023-06-04 22:44] VITALS: BP 120/78; PULSE 87; RESP 16; O2SAT 97
== END 2023-06-04 22:48 | disposition home or self-care (01) ==
PROVIDERS: Physician Assistant; Emergency Provider Emergency Medicine; PCP Family Medicine; Visit Provider Emergency Medicine
DX: R79.89 Other specified abnormal findings of blood chemistry (principal); R07.9 Chest pain, unspecified; R06.02 Shortness of breath; J45.909 Unspecified asthma, uncomplicated; F17.210 Nicotine dependence, cigarettes, uncomplicated; F17.290 Nicotine dependence, other tobacco product, uncomplicated
CPT/HCPCS: 71045; 71275; 80048; 84484; 85025; 85379; 93005; 96374; 99284; Q9967; A4216

== ENCOUNTER 2024-03-17 22:45 | Emergency (ER) | payer OTHER, SELFPAY ==
[2024-03-17 22:45] VITALS: BP 124/75; PULSE 103; RESP 18; TEMP 36.8; O2SAT 96; BMI 31.1
--- NOTE | 2024-03-17 22:49 | EKG12_ITS ---
Test Reason : CP Blood Pressure : / mmHG Vent. Rate : 081 BPM Atrial Rate : 081 BPM P-R Int : 132 ms QRS Dur : 138 ms QT Int : 422 ms P-R-T Axes : 069 065 045 degrees QTc Int : 490 ms Normal sinus rhythm Right bundle branch block Abnormal ECG When compared with ECG of 04-JUN-2023 18:00, No significant change was found Confirmed by Gorge Kerr ([id number]), state editor ZACKARY HUMPHRIES ([id number]) on 03/21/2024 6:37:32 AM Referred By: CANDICE Confirmed By:Gorge Kerr
--- NOTE | 2024-03-17 22:49 | RAD_ITS ---
EXAM: XR CHEST, 1 VIEW CLINICAL INDICATION: chest pain TECHNIQUE: Frontal view of the chest. COMPARISON: Previous chest radiographs of 06/04/2023 and 12/13/2020. FINDINGS: LUNGS AND PLEURAL SPACES: Low lung volumes. Interval development of minimal discoid atelectasis within the retrocardiac portion of the left lower lobe. No consolidation or edema. No pneumothorax. No effusion. HEART: Unremarkable. Cardiac silhouette not enlarged. Normal pulmonary vasculature. MEDIASTINUM: Central airways and mediastinal contour are unremarkable. No mediastinal widening. Trachea is midline. BONES/JOINTS: Unremarkable. No acute fracture. SOFT TISSUES: Unremarkable. RAD/Chest 1 View (Portable) IMPRESSION: Low lung volumes with development of minimal discoid atelectasis in the left lower lobe. No pneumonia or pulmonary edema. Electronically Signed: Jevon Noriega MD at 23:44 EDT ,
[2024-03-17 23:00] VITALS: O2SAT 99
[2024-03-17 23:22] LABS: Absolute Neutrophil Count 5.6 X10^3/uL (2.0-7.7); Basophil# 0.04 X10^3/uL; Basophil% 0.4 % (0-1); Eosinophil# 0.13 X10^3/uL; Eosinophils% 1.3 % (0-5); Hematocrit 31.8 % (37-47); Lymphocyte % 35.9 % (19-41); Mean Corp Hgb Conc 34.6 g/dL (32-36); Mean Corpuscular Hgb 31.2 pg (27.0-32.0); Mean Corpuscular Volume 90.1 fL (81-99); Monocyte# 0.62 X10^3/uL; Monocyte% 6.2 % (0-10); NRBC Flagged by Analyzer 0 % (0-5); Neutrophil # 5.61 X10^3/uL (2.7-7.7); Neutrophil % 55.8 % (47-70); Platelet Count 249 K/mm3 (150-450); RBC Distribution Width CV 12.1 % (11.6-14.6); RBC Distribution Width SD 39.8 fl (35.1-43.9); Red Blood Count 3.53 M/mm3 (4.2-5.4)
[2024-03-17 23:45] VITALS: BP 120/51; PULSE 76; RESP 18; O2SAT 100
[2024-03-17 23:47] LABS: Anion Gap 6 (5-15); BUN 10 mg/dL (7-18); BUN/Creat Ratio 13.1 RATIO (10-20); Calcium,Total 8.8 mg/dL (8.5-10.1); Chloride 107 mmol/L (98-107); Creatinine, Serum 0.77 mg/dL (0.55-1.02); EST Glomerular Filtration Rate 94 mL/min (>60); Est Glom Filt Rate - Afr Amer 114 mL/min (>60); Estimated Creatinine Clearance 118.94 ml/min; Glucose 95 mg/dL (74-106); Potassium 3.4 mmol/L (3.5-5.1); Sodium Level 139 mmol/L (136-145); Troponin-I HS (w/2H Reflex) 4 pg/mL (3.0-54.0)
[2024-03-18] VITALS: BP 120/51; PULSE 76; RESP 18; O2SAT 100
[2024-03-18] MEDS: Ondansetron 4 MG/2 ML Vial IV (00:03)
[2024-03-18] MEDS: Ketorolac 30 MG/ML Syringe IV (00:03)
[2024-03-18] MEDS: HYDROmorphone 1 MG/ML Syringe IV (00:03)
[2024-03-18 00:30] LABS: International Normalized Ratio 0.9; Prothrombin Time (Protime)PT. 12.6 SECONDS (11.7-14.9)
[2024-03-18 00:31] LABS: Partial Thromboplast Time 24.9 Seconds (24.1-36.2)
[2024-03-18 01:00] VITALS: BP 134/85; PULSE 94; RESP 16; O2SAT 95
[2024-03-18 01:14] LABS: Reflex Troponin-HS? (from REC) Y
--- NOTE | 2024-03-18 01:27 | EDS_ITS ---
HPI History of Present Illness Chief Complaint: Chest Pain Informant: patient Narrative Narrative: Patient is a 28-year-old female with past medical history of anxiety depression and ADHD. She states she has had kidney stones in the past as well and reports that on Sunday she went to an outside hospital with back/abdominal pain and had concern this was a kidney stone. She states that it was found it was acute appendicitis and she was transferred to a hospital in [place] where she had laparoscopic surgery. She states the surgery was done on Sunday and she was discharged home on Sunday. She states that today she developed some upper mid chest discomfort that seem like it was worse with deep inspiration. She denies any history of DVT/PE but states she contacted the nurse hotline secondary to the symptoms and it was advised she come to the hospital for evaluation. [facility] Medical History (Updated 03/18/24 @ 01:[address] Gaetano Ríos, ) DDD (degenerative disc disease), lumbar Wears partial dentures Substance abuse History of steroid therapy Hepatitis Vapes nicotine containing substance Gastric reflux History of pain when walking History of edema Hypotension History of Mohs micrographic surgery for skin cancer Encounter for IUD insertion MANUEL III (cervical intraepithelial neoplasia grade III) with severe dysplasia Herniated lumbar intervertebral disc Asthma depression Depression Anxiety Gestational diabetes Skin cancer ADHD Lower back pain Home Medications ?Medication ?Instructions ?Recorded ?Last Taken ?Type tizanidine 4 mg capsule 4 mg PO QHS 03/19/23 Unknown History citalopram 40 mg tablet 40 mg PO DAILY #90 tabs 01/29/24 Unknown Rx lorazepam 0.5 mg tablet 0.5 mg PO DAILY PRN anxiety #10 01/29/24 Unknown Rx tabs clonidine HCl 0.1 mg tablet 0.1 mg PO QDAY PRN anxiety #30 tabs 02/06/24 03/15/24 Rx lisdexamfetamine 40 mg capsule 40 mg PO QAM 30 days #30 caps 02/06/24 Unknown Rx (Vyvanse) hydrocodone-acetaminophen 5-325mg 1 tab PO Q6H PRN PRN severe pain 03/17/24 Unknown History 5mg-325mg levonorgestrel 20.4 mcg/24 hr (up 1 device intrauterine DAILY 03/17/24 Unknown History to 8 yrs) 52 mg intrauterine device (Liletta) Allergy/AdvReac Type Severity Reaction Status Date / Time cetirizine (From [facility]) Allergy difficulty Verified 03/17/24 22:46 breathing, racing heart Family History Other Suicide Surgical History (Updated 03/17/24 @ 23:01 by Maeve Mccullough) History of appendectomy Hx of wisdom tooth extraction Social History Smoking Status: Current every day smoker tobacco type: e-cigarettes alcohol intake: never details: Occasionally substance use type: does not use ROS ROS ED Constitutional Constitutional ED: Denies chills or fever(s) Eyes Eyes: Denies blurry vision or change in vision ENT ENT ED: Denies sore throat Cardiovascular Cardiovascular: Reports chest pain; Denies palpitations or racing heartbeat Respiratory/Chest Respiratory/Chest: Reports dyspnea; Denies cough Gastrointestinal Gastrointestinal: Reports abdominal pain; Denies diarrhea, nausea or vomiting Genitourinary Genitourinary ED: Denies dysuria Musculoskeletal Musculoskeletal: Reports back pain; Denies myalgias Integumentary Denies rash Neurologic Neurologic: Denies headache(s) Hematologic/Lymphatic Hematologic/Lymphatic: Denies easy bleeding or easy bruising EXAM Physical Exam Const Vital Signs: 03/17/24 22:45 03/17/24 23:00 03/17/24 23:00 Temperature 98.2 F Temperature Source Temporal Pulse Rate 103 H Respiratory Rate 18 Respiratory Effort Normal Short of Breath Respiratory Pattern Normal Blood Pressure 124/75 H Blood Pressure Mean 91 Pulse Ox 96 99 Oxygen Delivery Method Room Air Room Air 03/17/24 23:45 03/18/24 00:00 03/18/24 01:00 Temperature Temperature Source Pulse Rate 76 76 94 Respiratory Rate 18 18 16 Respiratory Effort Respiratory Pattern Blood Pressure 120/51 L 120/51 L 134/85 H Blood Pressure Mean 74 74 101 Pulse Ox 100 100 95 Oxygen Delivery Method Room Air Room Air Room Air Positive well nourished and well developed General Appearance ED: well developed; Negative for pallor HEENT HEENT Narrative: Normocephalic atraumatic Eyes PERRL and EOMs intact bilaterally General Eye ED: Negative for pale conjunctiva or scleral icterus Neck supple and no JVD Chest Wall palpation of chest normal Chest Narrative: No bony deformity or crepitance noted Resp normal respiratory effort and clear to auscultation bilaterally Resp Narrative: Breath sounds are diminished throughout but overall clear to auscultation without signs of respiratory distress Cardio regular rate and regular rhythm Rate: other Other Details: Heart is regular rate and rhythm without murmurs rubs or gallop Radial and carotid pulses are equal and symmetric GI non-distended and no masses GI Narrative: Abdomen is soft and nondistended with hypoactive bowel sounds. There is mild diffuse pain with palpation without voluntary guarding or rigidity. There are postoperative wounds that are clean dry and intact consistent with recent laparoscopic appendectomy Auscultation: hypoactive bowel sounds Palpation: soft Extremity Extremity Narrative: +1 pitting edema to the bilateral lower extremities that are equal and symmetric Negative Homans' sign bilaterally Neuro oriented x3, CN's II-XII intact bilaterally and no sensory deficits noted Sensorium / Orientation: alert Motor Exam: strength 5/5 throughout Psych mental status grossly normal Skin no rashes or lesions noted Skin Narrative: Postoperative wounds to the abdomen as documented above General Skin Exam: Negative for jaundice or pallor MDM MDM MDM Narrative Medical decision making narrative: Patient arrived to the ER to slightly tachycardic but otherwise with stable vitals. She is low risk for DVT/PE with her main risk factor being recent surgery. She is also low risk for acute coronary syndrome but this is also a possibility for her chest discomfort and she could have a spontaneous pneumothorax or have developed pneumonia or pneumomediastinum. Therefore basic labs were obtained which show a normal troponin at 4 going against ACS. Chest x-ray revealed no acute findings either but with her recent surgery and persistent pain the decision was made to perform a CTA. CTA revealed no PE or dissection or pneumothorax or pneumomediastinum. On reevaluation vitals are stable and she is not hypoxic or in respiratory distress. Therefore there is no need for further evaluation in the ER and she is otherwise safe for discharge History & Record Review Discussion w/independent historian: Patient Lab Data Attestation: I reviewed the patient's lab results. Labs: Laboratory Results - last 24 hr 03/17/24 03/17/24 22:17 23:12 WBC 10.0 RBC 3.53 L Hgb 11.0 L Hct 31.8 L MCV 90.1 MCH 31.2 MCHC 34.6 RDW Std Deviation 39.8 RDW Coeff of Clarence 12.1 Plt Count 249 MPV 10.0 Immature Gran % (Auto) 0.400 Neut % (Auto) 55.8 Lymph % (Auto) 35.9 Ray % (Auto) 6.2 Eos % (Auto) 1.3 Baso % (Auto) 0.4 Absolute Neuts (auto) 5.6 Absolute Lymphs (auto) 3.60 Nucleated RBC % 0 PT 12.6 INR 0.9 APTT 24.9 Sodium 139 Potassium 3.4 L Chloride 107 Carbon Dioxide 26.0 Anion Gap 6 BUN 10 Creatinine 0.77 Estim Creat Clear Calc 118.94 Est GFR (MDRD) Af Amer 114 Est GFR (MDRD) Non-Af 94 BUN/Creatinine Ratio 13.1 Glucose 95 Calcium 8.8 Troponin I High Sens 4 Radiography Diagnostic Testing: Clinical Impression(s) from Imaging Studies Chest X-Ray 03/17/24 22:49 IMPRESSION: Low lung volumes with development of minimal discoid atelectasis in the left lower lobe. No pneumonia or pulmonary edema. Electronically Signed: Jevon Noriega MD at 23:44 EDT , Chest CTA 03/18/24 23:52 IMPRESSION: 1. Negative for PE. 2. Small bilateral small pleural effusions with adjacent compressive atelectasis. 3. Pneumoperitoneum; there is a given history of recent surgery. 4. No thoracic aortic dissection. Electronically Signed: Jevon Noriega MD at 1:21 EDT , Chest x-ray as interpreted by the emergency medicine physician reveals low lung volumes with atelectasis without acute infiltrate pneumothorax or pleural effusion Discharge Plan Triage Chief Complaint: Chest Pain ED Provider: Gaetano Ríos Dx/Rx/DC Orders Clinical Impression: Acute postoperative abdominal pain, Nonspecific chest pain, Anxiety, Depression, ADHD Instructions: Managing Post-Op Pain at Home, ED Chest Pain, Noncardiac Prescriptions: No Action clonidine HCl 0.1 mg tablet 0.1 mg PO QDAY PRN (Reason: anxiety) Qty: 30 1RF lisdexamfetamine [Vyvanse] 40 mg capsule 40 mg PO QAM 30 Days Qty: 30 0RF tizanidine 4 mg capsule 4 mg PO QHS hydrocodone-acetaminophen 5-325 mg tablet 1 tab PO Q6H PRN PRN (Reason: severe pain) Liletta 20.4 mcg/24 hr (8 yrs) 52 mg intrauterine device 1 device intrauterine DAILY Patient Comments: has had since 04/2024 lorazepam 0.5 mg tablet 0.5 mg PO DAILY PRN (Reason: anxiety) Qty: 10 0RF Patient Comments: has a bottle at home but has not taken recently citalopram 40 mg tablet 40 mg PO DAILY Qty: 90 1RF Primary Care Provider: LG SELF Referrals: LG SELF [Other] Print Language: Citizen Of [place] Disposition Disposition: Home, Self Care
[2024-03-18 01:34] VITALS: BP 115/74; PULSE 95; RESP 18; TEMP 37.2; O2SAT 97
[2024-03-18 01:41] LABS: Troponin-I HS 6 pg/mL (3.0-54.0)
--- NOTE | 2024-03-18 23:52 | CT_ITS ---
EXAM: CT ANGIOGRAPHY CHEST WITHOUT AND WITH INTRAVENOUS CONTRAST CLINICAL INDICATION: chest pain s/p surgery TECHNIQUE: Helically acquired angiography images were obtained of the chest without and with intravenous contrast. This CT exam was performed using one or more of the following dose reduction techniques: automated exposure control, adjustment of the mA and/or kV according to patient size, and/or use of iterative reconstruction technique. MIP reconstructed images were created and reviewed. CONTRAST: IV 100mL [id number]-[id number] RADIATION DOSE: Total DLP: 446.95 mGy-cm. COMPARISON: CTA chest of 06/04/2023. FINDINGS: PULMONARY ARTERIES: Unremarkable. Normal in caliber. No evidence of pulmonary embolism. AORTA: Unremarkable. Normal in caliber. No evidence of dissection. GREAT VESSELS OF AORTIC ARCH: Unremarkable. Normal in caliber. No evidence of dissection. LUNGS AND PLEURAL SPACES: Small bilateral pleural effusions are present with adjacent compressive atelectasis. Mild nonspecific thickening of the basal pulmonary interstitial markings. No patchy airspace disease. No mass. No pneumothorax. HEART: No significant pericardial effusion. MEDIASTINUM: Unremarkable. No mediastinal or hilar adenopathy. Esophagus is unremarkable. No hiatal hernia. THYROID: Unremarkable. No thyroid lesions. BONES/JOINTS: Unremarkable. No suspicious lytic or blastic abnormality. INTRAPERITONEAL SPACE: Numerous bubbles of pneumoperitoneum are seen within the upper abdomen, and there is a given history of recent surgery. Visualized portions of the liver, spleen, pancreas, left adrenal glands and renal upper poles are unremarkable. There is a stable small benign right adrenal adenoma which requires no follow-up. CT/CTA Chest W/WO Contrast IMPRESSION: 1. Negative for PE. 2. Small bilateral small pleural effusions with adjacent compressive atelectasis. 3. Pneumoperitoneum; there is a given history of recent surgery. 4. No thoracic aortic dissection. Electronically Signed: Jevon Noriega MD at 1:21 EDT ,
== END 2024-03-18 01:39 | disposition home or self-care (01) ==
PROVIDERS: Emergency Provider Emergency Medicine; Visit Provider Emergency Medicine
DX: G89.18 Other acute postprocedural pain (principal); R07.9 Chest pain, unspecified; F41.9 Anxiety disorder, unspecified; F32.A Depression, unspecified; F90.9 Attention-deficit hyperactivity disorder, unspecified type; Z87.442 Personal history of urinary calculi; K21.9 Gastro-esophageal reflux disease without esophagitis; J45.909 Unspecified asthma, uncomplicated; F17.290 Nicotine dependence, other tobacco product, uncomplicated; R06.00 Dyspnea, unspecified; R10.9 Unspecified abdominal pain
CPT/HCPCS: 71045; 71275; 80048; 84484; 85025; 85610; 85730; 93005; 96374; 96375; 99284; Q9967; A4216; J2405

== ENCOUNTER 2024-03-27 20:55 | Emergency (ER) | payer OTHER, MEDICAID, SELFPAY ==
[2024-03-27 20:57] VITALS: BP 119/77; PULSE 103; RESP 19; TEMP 36.3; O2SAT 98; BMI 28.8
[2024-03-27 21:00] VITALS: BP 119/77; PULSE 103; RESP 19; TEMP 36.3; O2SAT 98
--- NOTE | 2024-03-27 23:56 | EX.ED.DYSGE1 ---
HPI History of Present Illness Chief Complaint: Dental Informant: patient Narrative Narrative: Patient is a 28-year-old female with past medical history of anxiety depression and ADHD. She also reports a longstanding history of dental problems. She states that she recently saw her dentist secondary to a right lower tooth infection and was placed on antibiotics and had the area drained. She states she is scheduled to return tomorrow to discuss further intervention but they stated they would not perform the next step if there was too much swelling or persistent infection. She states that she is on clindamycin and has been doing salt water gargles but she still feels like the area is swollen and she does not want to miss out on a potential procedure tomorrow so she comes in for evaluation [facility] Medical History (Updated 03/28/24 @ 03:[address] Gaetano Ríos, ) DDD (degenerative disc disease), lumbar Wears partial dentures Substance abuse History of steroid therapy Hepatitis Vapes nicotine containing substance Gastric reflux History of pain when walking History of edema Hypotension History of Mohs micrographic surgery for skin cancer Encounter for IUD insertion MANUEL III (cervical intraepithelial neoplasia grade III) with severe dysplasia Herniated lumbar intervertebral disc Asthma depression Depression Anxiety Gestational diabetes Skin cancer ADHD Lower back pain Home Medications ?Medication ?Instructions ?Recorded ?Last Taken ?Type tizanidine 4 mg capsule 4 mg PO QHS 03/19/23 Unknown History citalopram 40 mg tablet 40 mg PO DAILY #90 tabs 01/29/24 Unknown Rx lorazepam 0.5 mg tablet 0.5 mg PO DAILY PRN anxiety #10 01/29/24 Unknown Rx tabs levonorgestrel 20.4 mcg/24 hr (up 1 device intrauterine DAILY 03/17/24 Unknown History to 8 yrs) 52 mg intrauterine device (Liletta) clonidine HCl 0.1 mg tablet 0.1 mg PO BID PRN anxiety #60 tabs 03/25/24 Unknown Rx clindamycin HCl 150 mg capsule mg PO 03/27/24 Unknown History Allergy/AdvReac Type Severity Reaction Status Date / Time cetirizine (From [facility]) Allergy difficulty Verified 03/27/24 20:56 breathing, racing heart Family History Other Suicide Surgical History History of appendectomy Hx of wisdom tooth extraction Social History Smoking Status: Current every day smoker tobacco type: e-cigarettes alcohol intake: never details: Occasionally substance use type: does not use ROS ROS ED Constitutional Constitutional ED: Denies chills or fever(s) ENT ENT ED: Reports other Details: Positive dental pain ; Denies sore throat Cardiovascular Cardiovascular: Denies chest pain Respiratory/Chest Respiratory/Chest: Denies cough or dyspnea Gastrointestinal Gastrointestinal: Denies abdominal pain, diarrhea, nausea or vomiting Genitourinary Genitourinary ED: Denies dysuria Musculoskeletal Musculoskeletal: Denies myalgias or neck pain Integumentary Denies rash Neurologic Neurologic: Denies headache(s) Hematologic/Lymphatic Hematologic/Lymphatic: Denies easy bleeding or easy bruising Allergic/Immunologic Allergic/Immunologic ED: Denies mouth swelling or tongue swelling EXAM Physical Exam Const Vital Signs: 03/27/24 20:57 03/27/24 21:00 03/28/24 00:04 Temperature 97.4 F L 97.4 F L 98.8 F Temperature Source Temporal Temporal Pulse Rate 103 H 103 H 96 Respiratory Rate 19 H 19 H 18 Blood Pressure 119/77 119/77 130/66 H Blood Pressure Mean 91 91 87 Pulse Ox 98 98 100 Oxygen Delivery Method Room Air Room Air Positive well nourished and well developed General Appearance ED: well developed; Negative for pallor HEENT Reports moist mucous membranes HEENT Narrative: No tongue or lip swelling no airway edema or compromise No signs of ANUG Scant dental caries are noted There is mild soft tissue swelling and faint erythema of the right lower jaw without obvious abscess formation Eyes PERRL and EOMs intact bilaterally General Eye ED: Negative for scleral icterus Neck supple Neck Narrative: No brawny edema in the submental space to suggest Terry's angina Resp normal respiratory effort and clear to auscultation bilaterally Cardio regular rate and regular rhythm Extremity normal to inspection Neuro oriented x3, CN's II-XII intact bilaterally and no sensory deficits noted Sensorium / Orientation: alert Motor Exam: strength 5/5 throughout Psych mental status grossly normal Skin no rashes or lesions noted General Skin Exam: Negative for jaundice or pallor MDM MDM MDM Narrative Medical decision making narrative: Patient arrived to the ER with stable vitals and no signs of respiratory distress. Patient had no signs of ANUG nor was there brawny edema to suggest Terry's angina. Therefore this time I do not feel there is need for imaging or laboratory studies. The patient only had mild soft tissue swelling on exam without obvious abscess formation and therefore do not feel that there is need for change in antibiotics or incision and drainage. The patient was advised to stay on her clindamycin and perform salt water gargles as it does appear to be resolving the issue. However because of her pain she was given a inferior dental block as documented below. Therefore at this time with stable vitals no signs of airway compromise or systemic infection or need for incision and drainage she is otherwise safe for discharge Patient was given a right inferior alveolar dental block using 1.5 mL of 2% lidocaine with epinephrine and 1.5 mL of 0.5% Marcaine. Patient achieved good anesthesia with the injection and tolerated procedure well without complication History & Record Review Discussion w/independent historian: Patient Discharge Plan Triage Chief Complaint: Dental ED Provider: Gaetano Ríos Dx/Rx/DC Orders Clinical Impression: Dental infection, Pain, dental, Anxiety, Depression, ADHD Instructions: Dental Abscess, ED Dental Pain Prescriptions: No Action tizanidine 4 mg capsule 4 mg PO QHS Liletta 20.4 mcg/24 hr (8 yrs) 52 mg intrauterine device 1 device intrauterine DAILY Patient Comments: has had since 04/2024 clindamycin HCl 150 mg capsule PO lorazepam 0.5 mg tablet 0.5 mg PO DAILY PRN (Reason: anxiety) Qty: 10 0RF Patient Comments: has a bottle at home but has not taken recently citalopram 40 mg tablet 40 mg PO DAILY Qty: 90 1RF clonidine HCl 0.1 mg tablet 0.1 mg PO BID PRN (Reason: anxiety) Qty: 60 1RF Primary Care Provider: Care Physician,No Primary Referrals: Care Physician,No Primary [Primary Care Provider] - Print Language: Azeri Disposition Disposition: Home, Self Care Discharge Date/Time: 03/28/24 00:20
[2024-03-28 00:04] VITALS: BP 130/66; PULSE 96; RESP 18; TEMP 37.1; O2SAT 100
[2024-03-28] MEDS: Lidocaine 2% /Epi 1:100 (20ml) 20 ML VIAL INFILT (00:06)
[2024-03-28] MEDS: Bupivacaine Mpf 0.5% 30 ML VIAL INFILT (00:06)
[2024-03-28] MEDS: oxyCODONE 5 MG Tablet PO ×2 (00:17→00:18)
--- NOTE | 2024-03-28 00:18 | ED.RN ---
Dr. Ríos ordered two 5mg oxycodone for pt to take home from ER due to pt being concerned pain will return before her 4pm dentist appointment today. This RN educated pt to take one pill at a time at least 6 hours apart only when needed with food.
== END 2024-03-28 00:20 | disposition home or self-care (01) ==
PROVIDERS: Emergency Provider Emergency Medicine; Visit Provider Emergency Medicine
DX: K04.7 Periapical abscess without sinus (principal); F32.A Depression, unspecified; F90.9 Attention-deficit hyperactivity disorder, unspecified type; F41.9 Anxiety disorder, unspecified; K21.9 Gastro-esophageal reflux disease without esophagitis; J45.909 Unspecified asthma, uncomplicated; F17.290 Nicotine dependence, other tobacco product, uncomplicated
CPT/HCPCS: 64999; 99282

== ENCOUNTER 2024-07-07 19:48 | Emergency (ER) | payer OTHER, MEDICAID, SELFPAY ==
[2024-07-07 19:49] VITALS: BP 106/64; PULSE 102; RESP 20; TEMP 36.6; O2SAT 100
[2024-07-07 21:02] VITALS: BMI 31.4
--- NOTE | 2024-07-07 21:08 | EDS_ITS ---
HPI History of Present Illness Chief Complaint: Abd Pain Narrative Narrative: Chief complaint and HPI: Nausea and vomiting. 28-year-old female presents for evaluation of nausea, vomiting, body aches. Patient states that she was recently around family members who had the stomach bug. She states 2 days ago her daughter had developed the same symptoms with nausea, vomiting, diarrhea. Patient states that she woke up this morning with nausea, vomiting, diarrhea. Decreased p.o. intake secondary to symptoms. Has been taking Tylenol. Associated symptom is fever and bodyaches. She denies any URI symptoms, cough, chest pain, shortness of breath, dysuria. Review of systems: See HPI Medications: As listed on the chart Allergies: As listed on the chart PFSH: Per chart Vital signs: As listed on the chart. Reviewed. Physical exam: Gen: A&O x3, NAD Head: Normocephalic, atraumatic Eyes: No sclera icterus, conjunctiva clear ENT: Mildly dry mucous membranes Neck: Trachea midline, No JVD CV: RRR, no murmurs, no peripheral edema Resp: Lungs CTA BL, no w/r/c GI: Abd soft, non-distended, non-tender, no r/r/g Musc: Full ROM, no deformity Skin: Warm, dry Neuro: Alert, oriented, grossly intact, sensation intact Psych: Cooperative, appropriate mood and affect [facility] Medical History DDD (degenerative disc disease), lumbar Wears partial dentures Substance abuse History of steroid therapy Hepatitis Vapes nicotine containing substance Gastric reflux History of pain when walking History of edema Hypotension History of Mohs micrographic surgery for skin cancer Encounter for IUD insertion MANUEL III (cervical intraepithelial neoplasia grade III) with severe dysplasia Herniated lumbar intervertebral disc Asthma depression Depression Anxiety Gestational diabetes Skin cancer ADHD Lower back pain Home Medications ?Medication ?Instructions ?Recorded ?Last Taken ?Type tizanidine 4 mg capsule 4 mg PO QHS 03/19/23 Unknown History clonidine HCl 0.1 mg tablet 0.1 mg PO BID PRN anxiety #60 tabs 05/21/24 Unknown Rx citalopram 10 mg tablet 10 mg PO DAILY #14 tabs 05/22/24 Unknown Rx escitalopram oxalate 10 mg tablet 10 mg PO QDAY #30 tabs 05/22/24 Unknown Rx etonogestrel 0.12 mg-ethinyl vag ring vaginal 05/22/24 Unknown History estradiol 0.015 mg/24 hr vaginal ring lisdexamfetamine 40 mg capsule 40 mg PO QAM 30 days #30 caps 07/04/24 Unknown Rx (Vyvanse) lorazepam 0.5 mg tablet 0.5 mg PO BID PRN anxiety #60 tabs 07/04/24 Unknown Rx ondansetron 4 mg disintegrating 4 mg PO Q8H PRN PRN Nausea #10 tabs 07/07/24 Unknown Rx tablet Allergy/AdvReac Type Severity Reaction Status Date / Time cetirizine (From [facility]) Allergy difficulty Verified 05/22/24 13:29 breathing, racing heart Family History Other Suicide Surgical History History of appendectomy Hx of wisdom tooth extraction Social History Smoking Status: Current every day smoker tobacco type: e-cigarettes alcohol intake: never details: Occasionally substance use type: does not use EXAM Physical Exam Const Vital Signs: 07/07/24 19:49 07/07/24 23:00 Temperature 97.8 F Temperature Source Temporal Pulse Rate 102 H 99 Respiratory Rate 20 H 24 H Blood Pressure 106/64 116/56 L Blood Pressure Mean 78 76 Pulse Ox 100 98 Oxygen Delivery Method Room Air Room Air MDM MDM MDM Narrative Medical decision making narrative: 28-year-old female presents for evaluation of nausea, vomiting, diarrhea, body aches. Daughter had similar symptoms as well as family members. Differential diagnosis includes but is not limited to viral syndrome, electrolyte abnormality, dehydration, SUSIE, influenza, COVID-19 infection. Suspect less likely pancreatitis, cholecystitis, UTI, . NS bolus, Zofran, Toradol ordered for symptoms. Laboratory workup ordered including urine. CBC unremarkable without leukocytosis or anemia. CMP unremarkable without SUSIE or transaminitis. Lipase unremarkable. UA negative for UTI. negative. COVID, influenza, RSV negative. Patient's symptoms are likely secondary to viral etiology. On reevaluation, patient's nausea has improved still endorsing body aches. Patient took Tylenol prior to arrival. Patient was educated on all of her results and the plan for discharge home if she can tolerate p.o. intake. She confirmed understanding. Patient passed her p.o. challenge. Patient stable to discharge home. Christine written for nausea and vomiting. Follow-up with PCP. Impression: 1. Viral syndrome 2. Nausea, vomiting, diarrhea Lab Data Labs: Laboratory Results - last 24 hr 07/07/24 07/07/24 20:30 21:30 WBC 8.6 RBC 4.40 Hgb 13.6 Hct 39.1 MCV 88.9 MCH 30.9 MCHC 34.8 RDW Std Deviation 36.8 RDW Coeff of Clarence 11.4 L Plt Count 220 MPV 10.2 Immature Gran % (Auto) 0.500 Neut % (Auto) 86.5 H Lymph % (Auto) 6.9 L [place] % (Auto) 5.6 Eos % (Auto) 0.4 Baso % (Auto) 0.1 Absolute Neuts (auto) 7.4 Absolute Lymphs (auto) 0.59 L Nucleated RBC % 0 Sodium 138 Potassium 3.5 Chloride 107 Carbon Dioxide 23.0 Anion Gap 8 BUN 8 Creatinine 0.76 Estim Creat Clear Calc 125.35 Est GFR (MDRD) Af Amer 114 Est GFR (MDRD) Non-Af 95 BUN/Creatinine Ratio 10.5 Glucose 93 Calcium 8.6 Total Bilirubin 1.50 H AST 20 ALT 40 Alkaline Phosphatase 98 Total Protein 7.2 Albumin 3.4 Globulin 3.8 Albumin/Globulin Ratio 0.9 Lipase 18 Urine Color Yellow Urine Clarity Sl. Cloudy Urine pH 6.0 Ur Specific [place] 1.015 Urine Protein 15 H Urine Glucose (UA) Normal Urine Ketones Negative Urine Occult Blood Negative Urine Nitrite Negative Urine Bilirubin 1 H Urine Urobilinogen Normal Ur Leukocyte Esterase 25 H Urine RBC 0-5 SEEN Urine WBC 0-5 SEEN Ur Squamous Epith Cells 0-5 SEEN Urine Bacteria 1+ Urine Mucus 1+ Urine Test Negative Discharge Plan Triage Chief Complaint: Abd Pain ED Provider: Jamal Hawley Dx/Rx/DC Orders Clinical Impression: Nausea & vomiting Instructions: ED Vomit Diarrhea [facility] Adult Prescriptions: New ondansetron 4 mg tablet,disintegrating 4 mg PO Q8H PRN PRN (Reason: Nausea) Qty: 10 0RF No Action etonogestrel-ethinyl estradiol 0.12-0.015 mg/24 hr ring vaginal citalopram 10 mg tablet 10 mg PO DAILY Qty: 14 0RF escitalopram oxalate 10 mg tablet 10 mg PO QDAY Qty: 30 1RF Rx Instructions: take 0.5 tablets daily for 14 days then take 1 tablet daily tizanidine 4 mg capsule 4 mg PO QHS clonidine HCl 0.1 mg tablet 0.1 mg PO BID PRN (Reason: anxiety) Qty: 60 1RF lorazepam 0.5 mg tablet 0.5 mg PO BID PRN (Reason: anxiety) Qty: 60 0RF Patient Comments: has a bottle at home but has not taken recently lisdexamfetamine [Vyvanse] 40 mg capsule 40 mg PO QAM 30 Days Qty: 30 0RF Primary Care Provider: Care Physician,No Primary Referrals: Care Physician,No Primary [Primary Care Provider] - Activity Restrictions/Additional Instructions: Follow-up with your primary care physician. You received Toradol here in the hospital. Do not take ibuprofen or Advil until 8 hours. Print Language: Moroccan Disposition Disposition: Home, Self Care Discharge Date/Time: 07/07/24 23:28
[2024-07-07] MEDS: Ketorolac 15 MG/ML Vial IV (21:12)
[2024-07-07] MEDS: 0.9% Normal Saline (1000mL) 1,000 ML 1000 ML IV (21:13)
[2024-07-07] MEDS: Ondansetron 4 MG/2 ML Vial IV (21:13)
[2024-07-07 21:36] LABS: Absolute Lymphocyte Count 0.59 X10^3/uL (0.83-4.51); Absolute Neutrophil Count 7.4 X10^3/uL (2.0-7.7); Basophil# 0.01 X10^3/uL; Basophil% 0.1 % (0-1); Eosinophil# 0.03 X10^3/uL; Eosinophils% 0.4 % (0-5); Hematocrit 39.1 % (37-47); Hemoglobin 13.6 g/dL (12.0-15.0); Lymphocyte # 0.59 X10^3/ul (0.83-4.51); Lymphocyte % 6.9 % (19-41); Mean Corp Hgb Conc 34.8 g/dL (32-36); Mean Corpuscular Hgb 30.9 pg (27.0-32.0); Mean Corpuscular Volume 88.9 fL (81-99); Mean Platelet Vol. 10.2 fl (6.2-12.0); Monocyte# 0.48 X10^3/uL; Monocyte% 5.6 % (0-10); NRBC Flagged by Analyzer 0 % (0-5); Neutrophil # 7.41 X10^3/uL (2.7-7.7); Neutrophil % 86.5 % (47-70); POSITIVE DIFFERENTIAL YES; Platelet Count 220 K/mm3 (150-450); RBC Distribution Width CV 11.4 % (11.6-14.6); RBC Distribution Width SD 36.8 fl (35.1-43.9); White Blood Count 8.6 K/mm3 (4.4-11.0)
[2024-07-07 21:56] LABS: Color, Urine Yellow (Yellow); Glucose, Dipstick Normal (Normal); Ketone-Dipstick Negative (Negative); Leukocyte Esterase-Dipstick 25 /ul (Negative); Nitrite-Dipstick Negative (Negative); Occult Blood-Urine Negative /ul (Negative); Protein-Dipstick 15 mg/dl (Negative); Specific Gravity, Urine 1.015 (1.002-1.030); Urine Clarity Sl. Cloudy (Clear); Urine Urobilinogen Normal (Normal)
[2024-07-07 22:17] LABS: ALB/GLOB Ratio 0.9 RATIO (0.9-2.4); AST(SGOT) 20 U/L (15-37); Alanine Aminotransfer ALT/SGPT 40 U/L (13-56); Albumin, Serum 3.4 g/dL (3.2-5.0); Alkaline Phosphatase 98 U/L (45-117); Anion Gap 8 (5-15); BUN 8 mg/dL (7-18); BUN/Creat Ratio 10.5 RATIO (10-20); Calcium,Total 8.6 mg/dL (8.5-10.1); Chloride 107 mmol/L (98-107); Creatinine, Serum 0.76 mg/dL (0.55-1.02); EST Glomerular Filtration Rate 95 mL/min (>60); Est Glom Filt Rate - Afr Amer 114 mL/min (>60); Estimated Creatinine Clearance 125.35 ml/min; Globulin 3.8 g/dL (2.2-4.2); Glucose 93 mg/dL (74-106); Lipase 18 U/L (13-75); Potassium 3.5 mmol/L (3.5-5.1); Protein, Total 7.2 g/dL (6.4-8.2); Sodium Level 138 mmol/L (136-145)
[2024-07-07 22:24] LABS: Urine Bilirubin Dipstick 1 mg/dL (Negative)
[2024-07-07 22:31] LABS: Bacteria 1+ /hpf (None Seen); Mucous, Urine 1+ /hpf (<or=2+); Red Blood Cells-Urine 0-5 SEEN /hpf (0-5); Squamous Epithelial Cells - UA 0-5 SEEN /hpf (5-10); White Blood Cells 0-5 SEEN /hpf (0-5)
[2024-07-07 22:32] LABS: Internal QC Validated? YES +Cl - CLEAR BKGD; Pregnancy, Urine Negative Negative
[2024-07-07 23:00] VITALS: BP 116/56; PULSE 99; RESP 24; O2SAT 98
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
== END 2024-07-07 23:28 | disposition home or self-care (01) ==
PROVIDERS: Emergency Provider Surgery; Visit Provider Surgery
DX: R11.2 Nausea with vomiting, unspecified (principal); R19.7 Diarrhea, unspecified; B34.9 Viral infection, unspecified; K21.9 Gastro-esophageal reflux disease without esophagitis; J45.909 Unspecified asthma, uncomplicated; F17.290 Nicotine dependence, other tobacco product, uncomplicated
CPT/HCPCS: 80053; 81001; 81025; 83690; 85025; 87631; 96361; 96374; 96375; 99283; A4216; J2405

== ENCOUNTER 2024-08-06 14:31 | Emergency (ER) | payer OTHER, MEDICAID, SELFPAY ==
[2024-08-06 14:32] VITALS: BP 144/92; PULSE 103; RESP 18; TEMP 36.6; O2SAT 99; BMI 29.8
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
[2024-08-06] MEDS: Naproxen 500 MG Tablet PO (15:06)
--- NOTE | 2024-08-06 15:10 | RAD_ITS ---
STUDY: X-RAY - LUMBAR SPINE REASON FOR EXAM: Female, 28 years old. Injury/Pain -- test 3 days ago was negative TECHNIQUE: 3 view(s) of the lumbar spine were obtained. COMPARISON: Comparison is made with prior study March 08, 2023. FINDINGS: Normal lumbar lordosis. There is a mild levoscoliosis of the lumbar spine. There is a normal alignment of the vertebrae. Anterior spondylosis at the L3-L4 and L4-L5 levels. This space narrowing and spondylosis at the L3-L4 and L4-L5 levels. Findings suggestive of a tiny calculi in the mid and lower pole regions of the right kidney. RAD/Lumbar Spine 2 or 3 Views IMPRESSION: Degenerative changes of the spine, as detailed above. Tiny calculi are seen in the right kidney as described. Electronically Signed: Tiago Gordon MD at 15:34 EST ,
[2024-08-06 15:54] VITALS: BP 118/73; PULSE 74; RESP 16; TEMP 36.6; O2SAT 99
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
== END 2024-08-06 15:56 | disposition home or self-care (01) ==
PROVIDERS: Emergency Provider Emergency Medicine; Visit Provider Emergency Medicine
DX: S39.012A Strain of muscle, fascia and tendon of lower back, initial encounter (principal); G89.29 Other chronic pain; F41.9 Anxiety disorder, unspecified; K21.9 Gastro-esophageal reflux disease without esophagitis; J45.909 Unspecified asthma, uncomplicated; T74.11XA Adult physical abuse, confirmed, initial encounter; Y07.030 Male partner, current, perpetrator of maltreatment and neglect; F17.290 Nicotine dependence, other tobacco product, uncomplicated; S80.11XA Contusion of right lower leg, initial encounter; S80.12XA Contusion of left lower leg, initial encounter; R00.0 Tachycardia, unspecified

== ENCOUNTER 2024-10-05 20:25 | Emergency (ER) | payer OTHER, MEDICAID, SELFPAY ==
[2024-10-05 20:27] VITALS: BP 132/71; PULSE 97; RESP 18; TEMP 36.2; O2SAT 97; BMI 28.3
--- NOTE | 2024-10-05 20:42 | EX.ED.DYSGE1 ---
HPI History of Present Illness Chief Complaint: Wound Check Informant: patient Onset/Context/Timing Onset: Days Context: Gradual Onset Timing: Continuous Current Severity: Mild Maximum Severity: Mild Narrative Narrative: 28-year-old female with a sore in the inside of her left cheek inside her mouth. No prior history. No other complaints. This has been there now 2 days. Prior similar symptoms: No Recent Illness/Hospitalization: No PFSH PFSH Medical History DDD (degenerative disc disease), lumbar Wears partial dentures Substance abuse History of steroid therapy Hepatitis Vapes nicotine containing substance Gastric reflux History of pain when walking History of edema Hypotension History of Mohs micrographic surgery for skin cancer Encounter for IUD insertion MANUEL III (cervical intraepithelial neoplasia grade III) with severe dysplasia Herniated lumbar intervertebral disc Asthma depression Depression Anxiety Gestational diabetes Skin cancer ADHD Lower back pain Home Medications ?Medication ?Instructions ?Recorded ?Last Taken ?Type tizanidine 4 mg capsule 4 mg PO QHS 03/19/23 Unknown History etonogestrel 0.12 mg-ethinyl vag ring vaginal 05/22/24 Unknown History estradiol 0.015 mg/24 hr vaginal ring ondansetron 4 mg disintegrating 4 mg PO Q8H PRN PRN Nausea #10 tabs 07/07/24 Unknown Rx tablet naproxen 500 mg tablet 500 mg PO BID #14 tabs 08/06/24 Unknown Rx clonidine HCl 0.1 mg tablet 0.1 mg PO BID PRN anxiety #60 tabs 08/13/24 Unknown Rx escitalopram oxalate 10 mg tablet 10 mg PO QDAY #30 tabs 09/11/24 Unknown Rx lamotrigine 25 mg tablet 50 mg (2 x 25 mg) PO QDAY #60 tabs 09/11/24 Unknown Rx lisdexamfetamine 40 mg capsule 40 mg PO QAM 30 days #30 caps 09/11/24 Unknown Rx (Vyvanse) lorazepam 1 mg tablet 1 mg PO BID PRN anxiety #60 tabs 09/11/24 Unknown Rx Allergy/AdvReac Type Severity Reaction Status Date / [facility] Allergy difficulty Verified 10/05/24 20:27 breathing, racing heart Family History Other Suicide Surgical History History of appendectomy Hx of wisdom tooth extraction Social History Smoking Status: Current every day smoker tobacco type: e-cigarettes alcohol intake: never details: Occasionally substance use type: does not use ROS ROS ED ROS Narrative Denies recent illness. Constitutional Constitutional ED: Denies chills or fever(s) Eyes Eyes: Denies blurry vision ENT ENT ED: Denies ear pain Cardiovascular Cardiovascular: Denies chest pain Respiratory/Chest Respiratory/Chest: Denies cough or dyspnea Gastrointestinal Gastrointestinal: Denies abdominal pain Genitourinary Genitourinary ED: Denies dysuria or hematuria Musculoskeletal Musculoskeletal: Denies arthralgias Integumentary Denies abscess Neurologic Neurologic: Denies headache(s) Endocrine Endocrinology: Denies cold intolerance Hematologic/Lymphatic Hematologic/Lymphatic: Reports none Allergic/Immunologic Allergic/Immunologic ED: Denies mouth swelling, tongue swelling or urticaria EXAM Physical Exam Narrative Exam Narrative: Well-appearing 28-year-old female. Vital signs stable afebrile. H EENT exam pupils round react light. Mytrex membranes. Her left upper inside of her cheek lateral to her left upper dentition there is a apthous ulcer. There is no bleeding. There is no abscess. Otherwise condition in good shape. Gums in good shape. Posterior pharynx normal. Neck nontender no lymphadenopathy. Lungs clear. Heart regular rhythm no murmur. Abdomen soft nontender. Moving all 4 extremities. Nontender no edema. Skin no rashes. Back nontender. Neurologically she is awake and alert. Const Vital Signs: 10/05/24 20:27 Temperature 97.2 F L Temperature Source Temporal Pulse Rate 97 Respiratory Rate 18 Blood Pressure 132/71 H Blood Pressure Mean 91 Pulse Ox 97 Oxygen Delivery Method Room Air Positive well nourished and well developed; Negative for cachectic, contractures or unkempt General Appearance ED: well developed and NAD; Negative for unkempt, cachectic, contractures, cyanotic, diaphoretic or pallor Nutritional Appearance: Negative for cachectic HEENT Reports moist mucous membranes Eyes PERRL and EOMs intact bilaterally General Eye ED: Negative for pale conjunctiva or scleral icterus Neck no lymphadenopathy, supple and no JVD Chest Wall inspection of chest normal and palpation of chest normal Resp normal respiratory effort and clear to auscultation bilaterally Auscultation: Negative for rales, rhonchi or wheezes Cardio regular rate, regular rhythm, S1 normal heart sound, S2 normal heart sound and no murmurs GI normal to inspection, nondistended, normoactive bowel sounds, non-tender, non-distended and no masses Palpation: soft; Negative for tender, guarding, mass or rebound tenderness present Back/Spine no CVA tenderness General Back: Negative for CVA tenderness Cervical Spine: Negative for cervical spine tenderness Thoracic Spine / Upper Back: Negative for thoracic spinal tenderness or paraspinal muscle tenderness Lumbar Spine / Lower Back: Negative for lumbar spinal tenderness Extremity normal to inspection General Extremety ED: Negative for edema or tenderness General Extremity: Negative for edema Neuro oriented x3 and CN's II-XII intact bilaterally Sensorium / Orientation: alert Motor Exam: strength 5/5 throughout; Negative for general weakness Psych mental status grossly normal Appearance: Negative for unkempt Mood & Affect: Negative for depressed, anxious or tearful Skin no rashes or lesions noted and no wounds General Skin Exam: Negative for jaundice or pallor Lesions: No lesion noted Rashes: No rashes noted Trauma: Negative for abrasion Wounds: Negative for wounds noted MDM MDM MDM Narrative Medical decision making narrative: 28-year-old female appears to have an mouth ulcer. Single lesion. Her concern was [place]Charly does not look like that. There is no sloughing of skin. She will be instructed to use Gly-Oxide rinse in her mouth. Follow-up if not improving or if worse. Discharge Plan Triage Chief Complaint: Wound Check ED Provider: Chris Miller Dx/Rx/DC Orders Clinical Impression: Aphthous ulcer Instructions: ED Canker Sore Prescriptions: No Action etonogestrel-ethinyl estradiol 0.12-0.015 mg/24 hr ring vaginal clonidine HCl 0.1 mg tablet 0.1 mg PO BID PRN (Reason: anxiety) Qty: 60 1RF escitalopram oxalate 10 mg tablet 10 mg PO QDAY Qty: 30 1RF lamotrigine 25 mg tablet 50 mg PO QDAY Qty: 60 1RF lorazepam 1 mg tablet 1 mg PO BID PRN (Reason: anxiety) Qty: 60 1RF Patient Comments: has a bottle at home but has not taken recently lisdexamfetamine [Vyvanse] 40 mg capsule 40 mg PO QAM 30 Days Qty: 30 0RF tizanidine 4 mg capsule 4 mg PO QHS ondansetron 4 mg tablet,disintegrating 4 mg PO Q8H PRN PRN (Reason: Nausea) Qty: 10 0RF naproxen 500 mg tablet 500 mg PO BID Qty: 14 0RF Primary Care Provider: Care Physician,No Primary Referrals: Care Physician,No Primary [Primary Care Provider] - Activity Restrictions/Additional Instructions: This appears to be an apthous ulcer or canker sore. Get the medication which you buy [id number] called Gly-Oxide. Put 3 to 5 drops on your tongue swish around your mouth for about 3 minutes. Do this for the 5 times a day and eventually help this heal up and go away. If it is getting worse and not improving follow-up to have it reevaluated. Print Language: Bengali Disposition Disposition: Home, Self Care
== END 2024-10-05 20:53 | disposition home or self-care (01) ==
LOC: ED 20:45
PROVIDERS: Emergency Provider Emergency Medicine; Referring Provider Emergency Medicine; Visit Provider Emergency Medicine
DX: K12.0 Recurrent oral aphthae (principal); K21.9 Gastro-esophageal reflux disease without esophagitis; F17.290 Nicotine dependence, other tobacco product, uncomplicated; J45.909 Unspecified asthma, uncomplicated
CPT/HCPCS: 99282

== ENCOUNTER 2024-11-10 22:48 | Emergency (ER) | payer OTHER, MEDICAID, SELFPAY ==
[2024-11-10 22:48] VITALS: BP 136/89; PULSE 96; RESP 18; TEMP 36.3; O2SAT 98; BMI 28.4
--- NOTE | 2024-11-10 23:11 | EX.ED.DYSGE1 ---
HPI History of Present Illness Chief Complaint: Back Informant: patient Narrative Narrative: Patient is a 29-year-old female with past medical history of ADHD anxiety and depression and reported degenerative disc disease in her low back. She states that secondary to this she has recurrent back problems. She reports that she was recently hiking around [place] and also drove to and from [place]. She denies any direct trauma she denies loss of bowel or bladder control or IV drug use dysuria or hematuria. She states that this feels very similar nature to her previous exacerbations of her low back pain. She states she has tried [id number] medications without symptom improvement. She reports that she typically has relief with steroids. Therefore with concern she may need prescription medication she presents for evaluation. [facility] Medical History DDD (degenerative disc disease), lumbar Wears partial dentures Substance abuse History of steroid therapy Hepatitis Vapes nicotine containing substance Gastric reflux History of pain when walking History of edema Hypotension History of Mohs micrographic surgery for skin cancer Encounter for IUD insertion MANUEL III (cervical intraepithelial neoplasia grade III) with severe dysplasia Herniated lumbar intervertebral disc Asthma depression Depression Anxiety Gestational diabetes Skin cancer ADHD Lower back pain Home Medications ?Medication ?Instructions ?Recorded ?Last Taken ?Type tizanidine 4 mg capsule 4 mg PO QHS 03/19/23 Unknown History etonogestrel 0.12 mg-ethinyl vag ring vaginal 05/22/24 Unknown History estradiol 0.015 mg/24 hr vaginal ring ondansetron 4 mg disintegrating 4 mg PO Q8H PRN PRN Nausea #10 tabs 07/07/24 Unknown Rx tablet naproxen 500 mg tablet 500 mg PO BID #14 tabs 08/06/24 Unknown Rx clonidine HCl 0.1 mg tablet 0.1 mg PO BID PRN anxiety #60 tabs 08/13/24 Unknown Rx lamotrigine 25 mg tablet 50 mg (2 x 25 mg) PO QDAY #60 tabs 09/11/24 Unknown Rx lorazepam 1 mg tablet 1 mg PO BID PRN anxiety #60 tabs 09/11/24 Unknown Rx escitalopram oxalate 20 mg tablet 20 mg PO QDAY #30 tabs 10/17/24 Unknown Rx lisdexamfetamine 40 mg capsule 40 mg PO QAM 30 days #30 caps 10/17/24 Unknown Rx (Vyvanse) methocarbamol 500 mg tablet 1,000 mg (2 x 500 mg) PO 4X/DAY 11/10/24 Unknown Rx PRN Muscle spasm/pain #56 tabs prednisone 10 mg tablet 10 mg PO UD #33 tabs 11/10/24 Unknown Rx Allergy/AdvReac Type Severity Reaction Status Date / Time cetirizine (From [facility]) Allergy difficulty Verified 11/10/24 22:50 breathing, racing heart Family History Other Suicide Surgical History History of appendectomy Hx of wisdom tooth extraction Social History Smoking Status: Current every day smoker tobacco type: e-cigarettes alcohol intake: never details: Occasionally substance use type: does not use ROS ROS ED Constitutional Constitutional ED: Denies chills or fever(s) ENT ENT ED: Denies sore throat Cardiovascular Cardiovascular: Denies chest pain Respiratory/Chest Respiratory/Chest: Denies cough or dyspnea Gastrointestinal Gastrointestinal: Denies abdominal pain, diarrhea, nausea or vomiting Genitourinary Genitourinary ED: Denies dysuria or hematuria Musculoskeletal Musculoskeletal: Reports back pain Integumentary Denies rash Neurologic Neurologic: Denies headache(s), paresthesias or weakness Psychiatric Psychiatric: Reports anxiety Hematologic/Lymphatic Hematologic/Lymphatic: Denies easy bleeding or easy bruising EXAM Physical Exam Const Vital Signs: 11/10/24 22:48 11/10/24 23:33 Temperature 97.4 F L Temperature Source Oral Pulse Rate 96 83 Respiratory Rate 18 14 Blood Pressure 136/89 H 158/96 H Blood Pressure Mean 104 116 Pulse Ox 98 98 Oxygen Delivery Method Room Air Positive well nourished and well developed General Appearance ED: well developed HEENT HEENT Narrative: Normocephalic atraumatic Eyes PERRL and EOMs intact bilaterally General Eye ED: Negative for scleral icterus Neck supple Neck Narrative: No nuchal rigidity or meningeal signs Resp normal respiratory effort and clear to auscultation bilaterally Cardio regular rate and regular rhythm GI normal to inspection, nondistended, normoactive bowel sounds, non-tender, non-distended and no masses Auscultation: normoactive bowel sounds Back/Spine no CVA tenderness Back/Spine Narrative: No bony deformity or step-off of the thoracic or lumbar spine no midline tenderness to palpation There is bilateral low back/paralumbar tenderness and spasm that worsens with sidebending and rotation No saddle anesthesia. Negative straight leg raise. No clonus or Babinski. Patellar reflexes are plus 2 out of 4 bilaterally. Extremity normal to inspection Neuro oriented x3, CN's II-XII intact bilaterally and no sensory deficits noted Sensorium / Orientation: alert Psych mental status grossly normal Skin no rashes or lesions noted and no wounds Skin Narrative: No overlying soft tissue changes to suggest trauma or infection MDM MDM MDM Narrative Medical decision making narrative: Patient arrived to the ER with stable vitals. She denied any red flag risk factors such as loss of bowel or bladder control or IV drug use to suggest cauda equina or epidural abscess. There has been no recent surgical procedures or injections to suggest discitis or osteomyelitis. There is no report or sign of trauma to suggest a thoracic compression fracture. Therefore this time I do not feel there is need for workup but patient simply has exacerbation of her chronic low back pain and muscle spasm. She was treated with Toradol Norflex Decadron oxycodone and Valium. After receiving this she had improvement of symptoms. She reports that prednisone tapers have helped her pain in the past and therefore this was prescribed and she was also placed on Robaxin for muscle spasm. However there is no physical exam findings concerning for bony injury or infectious process she is otherwise safe for discharge History & Record Review Discussion w/independent historian: Patient Discharge Plan Triage Chief Complaint: Back ED Provider: Gaetano Ríos Dx/Rx/DC Orders Clinical Impression: Acute myofascial strain of lumbosacral region, Spasm of back muscles, Anxiety, ADHD Instructions: Understanding Lumbosacral Strain, ED Back Spasm, No Trauma Prescriptions: New methocarbamol 500 mg tablet 1,000 mg PO 4X/DAY PRN (Reason: Muscle spasm/pain) Qty: 56 0RF prednisone 10 mg tablet 10 mg PO UD Qty: 33 0RF Rx Instructions: Take 4 tablets daily for 3 days, then 3 daily for 3 days, then 2 daily for 3 days, then 1 a day for 3 days then 1 QOD for 3 doses. No Action etonogestrel-ethinyl estradiol 0.12-0.015 mg/24 hr ring vaginal clonidine HCl 0.1 mg tablet 0.1 mg PO BID PRN (Reason: anxiety) Qty: 60 1RF lamotrigine 25 mg tablet 50 mg PO QDAY Qty: 60 1RF lorazepam 1 mg tablet 1 mg PO BID PRN (Reason: anxiety) Qty: 60 1RF Patient Comments: has a bottle at home but has not taken recently escitalopram oxalate 20 mg tablet 20 mg PO QDAY Qty: 30 1RF lisdexamfetamine [Vyvanse] 40 mg capsule 40 mg PO QAM 30 Days Qty: 30 0RF tizanidine 4 mg capsule 4 mg PO QHS ondansetron 4 mg tablet,disintegrating 4 mg PO Q8H PRN PRN (Reason: Nausea) Qty: 10 0RF naproxen 500 mg tablet 500 mg PO BID Qty: 14 0RF Primary Care Provider: Care Physician,No Primary Referrals: Isidro Ozuna MD [Med Staff - Active Staff] - Care Physician,No Primary [Primary Care Provider] - Activity Restrictions/Additional Instructions: Please stop the Zanaflex/today as a Ramiro and begin using the Robaxin for muscle spasm without the side effect of sedation. Continue to stretch and heat your low back to reduce pain and speed healing. Follow-up with your family doctor or Dr. Ozuna for repeat evaluation and return to the ER should you have any further concerns Print Language: Finnish Disposition Disposition: Home, Self Care Discharge Date/Time: 11/11/24 00:51
[2024-11-10] MEDS: Ketorolac 30 MG/ML Syringe IM (23:25)
[2024-11-10] MEDS: oxyCODONE 5 MG Tablet PO (23:25)
[2024-11-10] MEDS: diazePAM 5 MG Tablet PO (23:25)
[2024-11-10] MEDS: dexAMETHasone 10 MG/ML Vial PO.IVFORM (23:26)
[2024-11-10 23:33] VITALS: BP 158/96; PULSE 83; RESP 14; O2SAT 98
[2024-11-11] MEDS: Orphenadrine 60 MG/2 ML Ampul IM (00:22)
== END 2024-11-11 00:51 | disposition home or self-care (01) ==
PROVIDERS: Emergency Provider Emergency Medicine; Referring Provider Emergency Medicine; Visit Provider Emergency Medicine
DX: S39.012A Strain of muscle, fascia and tendon of lower back, initial encounter (principal); M62.830 Muscle spasm of back; F90.9 Attention-deficit hyperactivity disorder, unspecified type; F41.9 Anxiety disorder, unspecified; K21.9 Gastro-esophageal reflux disease without esophagitis; J45.909 Unspecified asthma, uncomplicated; F17.290 Nicotine dependence, other tobacco product, uncomplicated; X58.XXXA Exposure to other specified factors, initial encounter
CPT/HCPCS: 96372; 99283

== ENCOUNTER 2025-05-09 21:47 | Emergency (ER) | payer OTHER, MEDICAID, SELFPAY ==
[2025-05-09 21:48] VITALS: BP 126/75; PULSE 105; RESP 18; TEMP 36.7; O2SAT 96; BMI 29.2
--- OUTSIDE RECORDS SUMMARY | 2025-05-09 22:38 | XMS RPT_ITS | CCD ---
Author Organization [facility] Care Team Providers Care Security Guard Name Role Phone Dev Flannery IVMitzi Unavailable Unavailable Valery CUNNINGHAM.QUANTITATIVE ANALYST MARKETING, DNP, Amaya Primary Care Provider Debby Reeves MD Primary Care Provider PHYSICIAN, NONE Primary Care Physician Unavailab Debby Madrigal MD Primary Care Provider Debby Reeves MD Primary Care Provider Thanh Marrero Unavailable Unavailable Dr. Joe Reeves Primary Care Provider Dr. Joe Reeves Referring Provider Ayden FIBER GLASS WORKER, CLAIRE-Jennifer Pratt Attending Provider Dr. Joe Reeves Primary Care Provider Dr. Joe Reeves Referring Provider Dr. Sabas Kim Attending Provider Dr. Max Núñez Attending Provider Dr. Joe Reeves Primary Care Provider Dr. Joe Reeves Referring Provider Dr. Sabas Kim Attending Provider Dr. Max Núñez Attending Provider Physician Primary Care Unavailable Generic Provider MD, No Assigned Pcp Primary Car e Provider Unavailable Keaton Tracy MD Primary Care Provider Generic Provider , No Assigned Pcp Primary Car e Provider Unavailable JOCE ANDERSON Attending Unavailable JOCE ANDERSON Primary Care Unavailable DEV NARAYAN Attending Unavailable GENERIC PROVIDER, NO ASSIGNED PCP Primary Care Unavailable DEV NARAYAN Attending Unavailable GENERIC PROVIDER, NO ASSIGNED PCP Primary Care Unavailable Generic Provider , No Assigned Pcp Primary Car e Provider Unavailable Keaton Tracy MD Primary Care Provider Keaton Tracy MD Primary Care Provider DEBBY HALE Attending Unava ilable KEATON TRACY Primary Care Unavailable JUAN ELLIS MD Consulting Unavailable JUAN ELLIS MD Admitting Unavailable PHYSICIAN, NONE Primary Care Unavailable JUAN ELLIS MD Attending Unavailable LASFRANSKI , MICHELE Consulting Unavailabl e PODUGU, WILLA Consulting Unavailable ADRIANA EPPS, JUAN Consulting Unavailable PHYSICIAN, NONE Primary Care Unavailable OWOC DO, DR TORI Hardy Attending Unavailabl e PHYSICIAN, NONE Primary Care Unavailable VERO HEATH MD Attending Unavail able KEATON TRACY Primary Care Unavailable OWOC DO, DR TORI Hardy Attending Unavailabl e ADRIANA EPPS, JUAN Consulting Unavailable PHYSICIAN, NONE Primary Care Unavailable PHYSICIAN, NONE Primary Care Unavailable VERO HEATH MD Attending Unavail able CHOUJAYou BAXTER, NIDAL Attending Unavailable PHYSICIAN, NONE Primary Care Unavailable Unavailable Primary Care Provider Unavailabl e PROVIDER, UNKNOWN Attending Unavailable PROVIDER, UNKNOWN Admitting Unavailable PHYSICIAN, NONE Primary Care Unavailable ADRIANA EPPS, JUAN Admitting Unavailable JUAN ELLIS MD Consulting Unavailable JUAN ELLIS MD Attending Unavailable OPAL BAXTER, MICHELE Consulting UnavailDR WILLA Balbuena MD Consulting Unavailable Keaton Tracy MD Primary Care Provider Care Physician, No Primary Referring Unava ilable Care Physician, No Primary Primary Care Unava ilable Adelita Teryr Attending Unavailable Care Physician, No Primary Primary Care Unava ilable Aliyah Ontiveros Attending Unavailable Care Physician, No Primary Primary Care Unava ilable Aliyah Ontiveros Attending Unavailable Care Physician, No Primary Primary Care Unava ilAdelita Levy Attending Unavailable Care Physician, No Primary Primary Care Unava ilable Aliyah Ontiveros Attending Unavailable Care Physician, No Primary Primary Care Unava ilable Aliyah Ontiveros Attending Unavailable Care Physician, No Primary Primary Care Unava ilAdelita Levy Attending Unavailable Care Physician, No Primary Referring Unava ilable Care Physician, No Primary Primary Care Unava ilable Aliyah Ontiveros Attending Unavailable Care Physician, No Primary Primary Care Unava ilable Care Physician, No Primary Referring Unava ilable Pastora Adelita Attending Unavailable Care Physician, No Primary Primary Care Unava ilable Pastora, Adelita Attending Unavailable Care Physician, No Primary Referring Unava ilable Care Physician, No Primary Primary Care Unava ilable Care Physician, No Primary Referring Unava ilable Adelita Terry Attending Unavailable Care Physician, No Primary Primary Care Unava ilable Care Physician, No Primary Referring Unava ilable Terry, Adelita Attending Unavailable Care Physician, No Primary Primary Care Unava ilable Care Physician, No Primary Referring Unava ilable Adelita Terry Attending Unavailable Care Physician, No Primary Primary Care Unava ilable Aliyah Ontiveros Attending Unavailable Granados, Nilay Attending Unavailable Care Physician, No Primary Primary Care Unava ilable Chris Miller Attending Unavailable Care Physician, No Primary Primary Care Unava ilable Chris Miller Referring Unavailable Jamal Hawley Attending Unavailabl e Care Physician, No Primary Primary Care Unava ilable Care Physician, No Primary Primary Care Unava ilable Gaetano Ríos Referring Unavailable Gaetano Ríos Attending Unavailable Care Physician, No Primary Primary Care Unava ilable Adelita Terry Attending Unavailable Care Physician, No Primary Primary Care Unava ilable Care Physician, No Primary Referring Unava ilable Adelita Terry Attending Unavailable Care Physician, No Primary Referring Unava ilable Care Physician, No Primary Primary Care Unava ilAdelita Levy Attending Unavailable PERALA, KEATON SAMANTHA Primary Care Unavailable HONORIO FISHER Attending Unavailable PERALA, KEATON SAMANTHA Primary Care Unavailable ROSANNA RUIZ Attending Unavailable PERALA, KEATON SAMANTHA Primary Care Unavailable PERALA, KEATON SAMANTHA Primary Care Unavailable THANH MARRERO Attending Unavailable PERALA, KEATON R Primary Care Unavailable PERALA, KEATON R Primary Care Unavailable ANGELA HAQ Referring Unavailable CARMELITA MILLAN Attending Unavailable PERALA, KEATON R Attending Unavailable PERALA, KEATON R Primary Care Unavailable PERALA, KEATON R Primary Care Unavailable PERALA, KEATON R Primary Care Unavailable RYLAN NICHOLAS Referring Unavailable ANDREW IRBY Attending Unavailable PERALA, KEATON R Primary Care Unavailable CARMELITA MILLAN Attending Unavailable PERALA, KEATON R Primary Care Unavailable HAURY, CANDICE Referring Unavailable PERALA, KEATON R Primary Care Unavailable HAURY, CANDICE Referring Unavailable PERALA, KEATON R Primary Care Unavailable ANGELA HAQ Attending Unavailable PERALA, KEATON R Primary Care Unavailable ALIYAH CARTER Attending Unavailable PERALA, KEATON R Primary Care Unavailable CARMELITA MILLAN Referring Unavailable PERALA, KEATON R Primary Care Unavailable HAURY, CANDICE Attending Unavailable PERALA, KEATON R Primary Care Unavailable CARMELITA MILLAN Attending Unavailable PERALA, KEATON R Attending Unavailable PERALA, KEATON R Primary Care Unavailable PERALA, KEATON R Primary Care Unavailable HAURY, CANDICE Referring Unavailable CARMELITA MILLAN Referring Unavailable PERALA, KEATON R Primary Care Unavailable PERALA, KEATON R Primary Care Unavailable PERALA, KEATON R Attending Unavailable PERALA, KEATON R Primary Care Unavailable Allergies Allergy Classification Reported Allergen(s) Allergy Type Date of Onset Reaction(s) Facility (20 sources) Cetirizine; Translations: [CETIRIZINE HCL] Drug Allergy 6 Intolerance [facility] Work Phone: (20 sources) Cetirizine; Translations: [cetirizine] Drug Allergy 6 Shortness of breath, Palpitations, Other [facility] (1 source) Cetirizine Drug Allergy Other [facility] (2 sources) Cetirizine Drug Allergy 3 [facility] Repository Medications Current Medications Medication Drug Class(es) Dates Sig (Normalized) Sig (Original) acetaminophen 500 mg oral tablet (20 sources) Start: 04-16-2024 End: 04-16-2024 1,000 mg, Oral, STAT, 1 dose, On Sun04/16/24 at 0351 Start: 03-28-2024 take 1 tablet by evelina th every eight hours as needed acetaminophen (TYLENOL 8 HOUR) 650 mg CR tablet Take 1 tablet by mouth every 8 hours as needed. 24 tablet 03/28/2024 Active Start: 11-06-2023 End: 11-06-2023 take 975 mg by mouth once as needed for pain 975 mg, oral, Once, On Sun11/06/23 at 0715, For 1 dose, Preprocedure, Administer with small amount of water preoperatively., If ordered PRN for pain, nurse is permitted to administer this medication for higher pain scores based on patient preference? Yes Start: 05-11-2020 End: 03-21-2022 take 2 tablets by mouth every eight hours acetaminophen (TYLENOL) 500 mg tablet Take 2 tablets by mouth every 8 hours. 90 tablet 0 05/11/2020 03/21/2022 Discontinued Start: 03-11-2020 take 1000 mg by mout h three times daily Acetaminophen Active 1000 MG PO THREE TIMES A DAY March 11, 2020 8:11am Comment on above: Take 2 tablets by mo uth every 8 hours. acetaminophen 325 mg / HYDROcodone bitartrate 5 mg oral tablet (20 sources) Opioid Agonist Start: 11-06-2023 End: 04-22-2024 take 1 tablet by mouth every six hours for pain HYDROcodone-acet aminophen ([place]) 5-325 mg tablet Indications: Kidney stone Take 1 tablet by mouth every 6 hours if needed for severe pain (7 - 10). 20 tablet 11/06/2023 Active Start: 08-26-2023 take 1 tablet by evelina th every six hours as needed HYDROcodone-acetaminophen ([place]) 5-325 mg per tablet 1 tablet Start: 02-16-2023 End: 03-08-2023 take 1 tablet by mouth every four hours as needed Hydrocodone-Acetaminophen Discontinued 1 TABLET PO EVERY 4 HOURS NEEDED 7 3 February 16, 2023 March 08, 2023 12:18pm Start: 08-14-2022 take 1 tablet by evelina th every six hours hydrocodone-acetaminophen 5 mg-325 mg or al tablet ; 1 tab(s) orally every 6 hours Quantity: 12 Refills: 0 Ordered: 13-Aug-2022 Thanh Marrero Start: 13-Aug-2022 Generic Substitution Allowed Comments: Caution federal law prohibits the transfer of this drug to any person other than the person for whom it was prescribed.May cause drowsiness. Alcohol may intensify this effect. Use care when operating dangerous machinery.This product contains acetaminophen. Do not use with any other product containing acetaminophen to prevent possible liver damage.Using more of this medication than prescribed may cause serious breathing problems. Start: 04-18-2020 End: 04-20-2020 take 1 tablet by mouth every four hours as needed Hydrocodone-Acetaminophen Discontinued 1 TABLET PO EVERY 4 HOURS NEEDED 10 2 April 18, 2020 April 19, 2020 11:03pm Comment on above: Caution federal law prohibits the transfer of this drug to any person other than the person for whom it was prescribed.May cause drowsiness. Alcohol may intensify this effect. Use care when operating dangerous machinery.This product contains acetaminophen. Do not use with any other product containing acetaminophen to prevent possible liver damage.Using more of this medication than prescribed may cause serious breathing problems. Albuterol (20 sources) beta2-Adrenergic Agonist Start: 03-19-2023 Albuterol Active 90 MCG INHALATION NEEDED March 18, 2023 11:00pm Start: 03-19-2023 Albuterol Acti ve 90 MCG INHALATION NEEDED March 19, 2023 12:00am Start: 09-13-2020 End: 11-22-2023 take 2 puff(s) by inhalation every four hours as needed for wheezing albuterol HFA (PROAIR HFA) 90 mcg/actuation inhaler Inhale 2 Puffs as instructed every 4 hours as needed for wheezing/shortness of breath. Used for seasonal allergies 8.5 g 3 08/29/2022 11/22/2023 Discontinued Comment on above: Inhale 2 Puffs as in structed every 4 hours as needed for Wheezing/Shortness of Breath. Used for seasonal allergies amoxicillin 875 mg oral tablet (3 sources) Penicillin-class Antibacterial Start: 08-07-19 End: 08-12-19 take 1 tablet by mouth twice daily amoxicillin (AMOXIL) 875 mg tablet Take 1 tablet by mouth twice daily for 5 days. 20 tablet 0 08/07/2022 08/12/2022 Active Comment on above: Take 1 tablet by evelina th twice daily for 5 days. amoxicillin 875 mg / clavulanate 125 mg oral tablet (2 sources) Penicillin-class Antibacterial Start: 04-16-20 End: 04-16-20 1 Tablet, Oral, STAT, 1 dose, On Sun04/16/24 at 0351 Start: 04-15-2024 End: 04-22-2024 take 1 tablet by mouth every twelve hours amoxicillin-clavulanate potassium (AUGMENTIN) 875-125 mg per tablet Take 1 tablet by mouth every 12 hours for 7 days. 14 tablet 04/15/2024 04/22/2024 Active benzonatate 100 mg oral capsule (2 sources) Non-narcotic Antitussive Start: 03-21-2023 End: 03-31-2023 take 1 capsule by mouth three times daily as needed benzonatate (TESSALON PERLE) 100 mg capsule Indications: COVID-19 virus infection Take 1 capsule by mouth three times daily as needed for up to 10 days. 30 capsule 0 03/21/2023 03/31/2023 Active Comment on above: Take 1 capsule by mo [facility] three times daily as needed for up to 10 days. Blood-Glucose Meter (2 sources) Start: 11-08-2022 End: 11-09-2022 Blood-Glucose Meter Indications: Abnormal maternal glucose tolerance, antepartum 1 Each as directed for 1 day. 1 Each 0 11/08/2022 11/09/2022 Active Comment on above: 1 Each as directed f or 1 day. busPIRone hydrochloride 5 mg oral tablet (4 sources) Start: 08-29-2022 End: 10-18-2022 take 1 tablet by mouth three times daily as needed busPIRone (BUSPAR) 5 mg tablet Indications: Panic disorder Take 1 tablet by mouth three times daily as needed. 90 tablet 0 08/29/2022 10/18/2022 Discontinued (Other) Comment on above: Take 1 tablet by [facility] three times daily as needed. calcium chloride 0.0014 meq/ml / potassium chloride 0.004 meq/ml / sodium chloride 0.103 meq/ml / sodium lactate 0.028 meq/ml injectable solution (2 sources) Start: 11-06-2023 take 100 mL intravenously every hour 100 mL/hr, intravenous, Continuous, Starting on Sun11/06/23 at 0845, Recovery (only) cephalexin 500 mg oral capsule (1 source) Cephalosporin Antibacterial Start: 08-14-2022 End: 08-20-2022 take 1 capsule by mouth four times daily cephalexin 500 mg oral capsule ; 1 cap(s) orally 4 times a day Quantity: 28 Refills: 0 Ordered: 13-Aug-2022 Thanh Marrero Start: 13-Aug-2022 End: 19-Aug-2022 Generic Substitution Allowed Comments: Finish all this medication unless otherwise directed by prescriber. Comment on above: Finish all this medi cation unless otherwise directed by prescriber. ciprofloxacin 500 mg oral tablet (2 sources) Quinolone Antimicrobial Start: 08-30-2023 End: 09-06-2023 take 1 tablet by mouth twice daily ciprofloxacin HCl (CIPRO) 500 mg tablet Take 500 mg by mouth two times a day. X 7 days 0 08/30/2023 09/06/2023 Active Comment on above: Take 500 mg by mouth two times a day. X 7 days cloNIDine hydrochloride 0.1 mg oral tablet (20 sources) Central alpha-2 Adrenergic Agonist Start: 07-03-2023 take 1 tablet by mouth twice daily cloNIDine (Catapres) 0.1 mg tablet Take 1 tablet (0.1 mg) by mouth 2 times a day. anxiety 07/03/2023 Active Start: 07-03-2023 End: 09-14-2023 take 1 tablet by mouth once daily as needed for anxiety cloNIDine HCl (CATAPRES) 0.1 mg tablet Indications: Panic disorder Take 1 tablet by mouth once daily as needed (Anxiety). 90 tablet 09/14/2023 Active Comment on above: Take 1 tablet by [facility] once daily as needed (Anxiety). cyclobenzaprine hydrochloride 5 mg oral tablet (2 sources) Muscle Relaxant Start: 11-20-19 End: 11-24-19 take 1 tablet by mouth three times daily as needed for muscle spasms cyclobenzaprine (Flexeril) 5 mg tablet Indications: Lumbar contusion, initial encounter Take 1 tablet (5 mg) by mouth 3 times a day as needed for muscle spasms for up to 4 days. 12 tablet 11/19/2024 11/23/2024 Active Start: 08-14-2022 End: 08-20-2022 take 1 tablet by mouth three times daily cyclobenzaprine 10 mg oral tablet ; 1 tab(s) orally 3 times a day Quantity: 21 Refills: 0 Ordered: 13-Aug-2022 Thanh Marrero Start: 13-Aug-2022 End: 19-Aug-2022 Generic Substitution Allowed Comments: May cause drowsiness. Alcohol may intensify this effect. Use care when operating dangerous machinery.Obtain medical advice before taking any non-prescription drugs as some may affect the action of this medication. Comment on above: May cause drowsiness . Alcohol may intensify this effect. Use care when operating dangerous machinery.Obtain medical advice before taking any non-prescription drugs as some may affect the action of this medication. diazePAM 5 mg oral tablet (8 sources) Benzodiazepine Start: 11-20-2023 take 5 mg by mouth once 5 mg, oral, Once, On Sun11/20/23 at 1950, For 1 dose Start: 11-20-2023 End: 11-21-2023 take 1 tablet by mouth twice daily diazePAM (Valium) 5 mg tablet Indications: Anxiety reaction Take 1 tablet (5 mg) by mouth 2 times a day for 1 day. 2 tablet 11/20/2023 Active doxycycline monohydrate 100 mg oral capsule (2 sources) Tetracycline-class Drug Start: 01-29-2025 End: 02-08-2025 take 1 capsule by mouth twice daily doxycycline monohydrate (MONODOX) 100 mg capsule Take 1 capsule by mouth two times a day for 10 days. 20 capsule 01/29/2025 02/08/2025 Active 21 day ethinyl estradiol 0.352020 mg/hr / etonogestrel 0.005 mg/hr vaginal system (20 sources) Progestin, Estrogen Start: 09-08-2024 Etonogestrel-Eth inyl Estradiol (NUVARING) 0.12-0.015 mg/24 hr vaginal ring Use 1 Each vaginally as directed. INSERT ONE(1) RING VAGINALLY AND LEAVE IN PLACE FOR THREE WEEKS, THEN REMOVE FOR 1 WEEK. 1 Each 5 09/08/2024 Active Start: 05-19-2024 End: 09-06-2024 Etonogestrel-Ethinyl Estradi ol (NUVARING) 0.12-0.015 mg/24 hr vaginal ring Use 1 Each vaginally as directed. INSERT ONE(1) RING VAGINALLY AND LEAVE IN PLACE FOR THREE WEEKS, THEN REMOVE FOR 1 WEEK. 1 Each 3 05/19/2024 09/06/2024 Discontinued Start: 03-08-2023 End: 05-11-2023 Etonogestrel-Ethinyl Estradi ol (Eluryng) 0.12-0.015 mg/24 hr ring Discontinued 1 VAG RING VAGINAL DAILY March 07, 2023 11:00pm May 11, 2023 2:39pm Start: 01-24-2023 End: 01-24-2024 Etonogestrel-Ethinyl Estradi ol (NUVARING) 0.12-0.015 mg/24 hr vaginal ring Indications: General counseling and advice for contraceptive management , Encounter for prescription for nuvaring Use 1 Each vaginally as directed. INSERT ONE(1) RING VAGINALLY AND LEAVE IN PLACE FOR THREE WEEKS, THEN REMOVE FOR 1 WEEK. 3 Each 3 01/24/2023 05/14/2023 Discontinued Comment on above: Use 1 Each vaginally as directed. INSERT ONE(1) RING VAGINALLY AND LEAVE IN PLACE FOR THREE WEEKS, THEN REMOVE FOR 1 WEEK. 0.5 ml HYDROmorphone hydrochloride 1 mg/ml prefilled syringe (3 sources) Opioid Agonist Start: 11-06-2023 0.5 mg, intravenous, Every 5 min PRN, pain severe (7-10), first line, Starting on Sun11/06/23 at 0822, Recovery (only), Max total of 4 mg regardless of dose. Start: 08-26-2023 End: 08-26-2023 HYDROmorphone (Dilaudid) inj ection 1 mg ibuprofen 600 mg oral tablet (2 sources) Nonsteroidal Anti-inflammatory Drug Start: 05-11-2023 take 600 mg by mouth every six hours Ibuprofen Active 600 MG PO EVERY 6 HOURS May 10, 2023 11:00pm iv contrast (will be provided with radiology test) (4 sources) Start: 10-09-2023 End: 10-10-2023 inject 1 dose intravenously once iv contrast (will be provided with radiology test) Indications: Migraine with aura and without status migrainosus, not intractable MRI Brain Inject, intravenously, once for 1 dose.No IV access, insert saline lock prior to beginning of sedation, infusion, injection of imaging exam.Discontinue saline lock post exam. If Pt. has a central line or IVAD, may access for administration according to line specific nursing protocol.Once exam is complete flush line and de-access according to line specific nursing protocol in the MR contrast administration guidelines link 1 Each 0 10/09/2023 10/10/2023 Active Start: 08-31-2023 End: 09-01-2023 iv contrast (will be provide d with radiology test) Indications: Disorder of adrenal gland (HCC) , Adrenal mass 1 cm to 4 cm in diameter (HCC) MRI ADRENAL Inject, intravenously, once for 1 dose. No IV access, insert saline lock prior to the beginning of sedation, infusion, injection of imaging exam. Discontinue saline lock post exam. If Pt. has a central line or IVAD, may access for administration according to line specific nursing protocol. Once exam is complete flush line and de-access according to line specific nursing protocol in the MR contrast administration guidelines link. 1 Each 0 08/31/2023 09/01/2023 Active Start: 05-30-2023 End: 05-31-2023 iv contrast (will be provide d with radiology test) MRV Brain Inject, intravenously, once for 1 dose. No IV access, insert saline lock prior to the beginning of sedation, infusion, injection of imaging exam. Discontinue saline lock post exam. If Pt. has a central line or IVAD, may access for administration according to line specific nursing protocol. Once exam is complete flush line and de-access according to line specific nursing protocol in the MR contrast administration guidelines link. 1 Each 0 05/30/2023 05/31/2023 Active Comment on above: MRV Brain Inject, in travenously, once for 1 dose. No IV access, insert saline lock prior to the beginning of sedation, infusion, injection of imaging exam. Discontinue saline lock post exam. If Pt. has a central line or IVAD, may access for administration according to line specific nursing protocol. Once exam is complete flush line and de-access according to line specific nursing protocol in the MR contrast administration guidelines link. MRI ADRENAL Inject, intravenously, once for 1 dose. No IV access, insert saline lock prior to the beginning of sedation, infusion, injection of imaging exam. Discontinue saline lock post exam. If Pt. has a central line or IVAD, may access for administration according to line specific nursing protocol. Once exam is complete flush line and de-access according to line specific nursing protocol in the MR contrast administration guidelines link. MRI Brain Inject, in travenously, once for 1 dose.No IV access, insert saline lock prior to beginning of sedation, infusion, injection of imaging exam.Discontinue saline lock post exam. If Pt. has a central line or IVAD, may access for administration according to line specific nursing protocol.Once exam is complete flush line and de-access according to line specific nursing protocol in the MR contrast administration guidelines link ketorolac tromethamine 10 mg oral tablet (20 sources) Nonsteroidal Anti-inflammatory Drug, Cyclooxygenase Inhibitor Start: End: take 1 tablet by mouth every six hours for pain ketorolac (Toradol) 10 mg tablet Indications: Lower abdominal pain Take 1 tablet (10 mg) by mouth every 6 hours if needed for moderate pain (4 - 6) for up to 5 days. 20 tablet 02/11/2025 02/16/2025 Active Start: 02-11-2025 End: 02-11-2025 15 mg, intravenous, Once, On Sun02/11/25 at 0140, For 1 dose Start: 11-18-2024 End: 11-18-2024 inject 15 mg by intramuscular injection once 15 mg, intramuscular, Once, On Sun11/18/24 at 2220, For 1 dose Start: 09-05-2024 End: 09-05-2024 30 mg, intravenous, Once, On Sun09/05/24 at 1950, For 1 dose Start: 04-16-2024 End: 04-16-2024 15 mg, Intramuscular, STAT, 1 dose, On Sun04/16/24 at 0351 Start: 04-15-2024 End: 04-15-2024 15 mg, intravenous, Once, On Sun04/15/24 at 1325, For 1 dose Start: 03-27-2024 End: 01-29-2025 take 1 tablet by mouth every six hours as needed keTORolac (TORADOL) 10 mg tablet Take 1 tablet by mouth every 6 hours as needed. For up to 5 days 20 tablet 04/15/2024 01/29/2025 Discontinued Start: 11-15-2023 End: 11-15-2023 keTORolac 60 mg injection (Toradol) Start: 08-26-2023 End: 08-26-2023 ketorolac (Toradol) injectio n 30 mg lamoTRIgine 25 mg oral tablet (11 sources) Mood Stabilizer, Anti-epileptic Agent Start: 01-16-2025 End: 03-26-2025 take 2 tablets by mouth once daily lamoTRIgine (LAMICTAL) 25 mg tablet Take 2 tablets by mouth once daily. 60 tablet 1 03/26/2025 Active levonorgestrel 0.789454 mg/hr intrauterine system (20 sources) Progestin, Progestin-containin g Intrauterine Device Start: 05-11-2023 End: 05-19-2024 levonorgestreL (Liletta) 20.4 mcg/24 hrs (8 yrs) 52 mg intrauterine device 52 mg by intrauterine route 1 time. 05/11/2023 Active Start: 01-24-2023 End: 05-14-2023 take 1 tablet by mouth once levonorgestrel (PLAN B ONE -STEP) 1.5 mg tab Take 1 tablet by mouth one time only for 1 dose. 1 tablet 0 01/24/2023 05/14/2023 Discontinued Start: 12-07-2020 Levonorgestrel (Mirena) 20 mcg/24 hours (6 yrs) 52 mg Intrauterine Device Active 20 MCG INTRA-UTER DAILY December 07, 2020 12:00am End: 03-21-2022 levonorgestrel (MIRENA) 20 m cg/24 hours (5 yrs) 52 mg IUD 1 Each by INTRAUTERINE route one time only. 0 03/21/2022 Discontinued Comment on above: 1 Each by INTRAUTERI NE route one time only. Take 1 tablet by evelina th one time only for 1 dose. 1 Each by INTRAUTERI NE route as directed. lidocaine hydrochloride 20 mg/ml mucous membrane topical solution (3 sources) Antiarrhythmic, Amide Local Anesthetic Start: 04-16-2024 End: 04-16-2024 15 mL, Mouth/Throat, STAT, 1 dose, On Sun04/16/24 at 0351 Start: 04-15-2024 End: 04-15-2024 1.25 mL, Swish & Spit, Once, On Sun04/15/24 at 1530, For 1 dose Start: 08-14-2022 Lidoderm 5% to pical film ; Apply topically to affected area every 12 hours Quantity: 12 Refills: 0 Ordered: 13-Aug-2022 Thanh Marrero Start: 13-Aug-2022 Generic Substitution Allowed Comments: For external use only.Remove old patch prior to applying a new patch. Comment on above: For external use onl y.Remove old patch prior to applying a new patch. lisdexamfetamine dimesylate 40 mg oral capsule (20 sources) Central Nervous System Stimulant Start: 024 End: 025 take 1 capsule by mouth once daily lisdexamfetamine (Vyvanse) 40 mg capsule Take 1 capsule (40 mg) by mouth once daily. 08/06/2023 Active Start: 05-07-2023 End: 08-04-2023 take 1 capsule by mouth once daily lisdexamfetamine (VYVANSE) 40 mg capsule Indications: ADHD (attention deficit hyperactivity disorder), inattentive type Take 1 capsule by mouth once daily for 30 days. 30 capsule 0 06/06/2023 07/05/2023 Discontinued Start: 03-08-2023 take 1 capsule by [facility] once daily Lisdexamfetamine (Vyvanse) 30 mg capsule Active 30 MG PO DAILY March 07, 2023 11:00pm Start: 03-06-2023 End: 05-04-2023 take 1 capsule by mouth once daily lisdexamfetamine (VYVANSE) 40 mg capsule Indications: ADHD (attention deficit hyperactivity disorder), inattentive type Take 1 capsule by mouth once daily for 30 days. 30 capsule 0 04/04/2023 05/04/2023 Discontinued Start: 02-19-2023 End: 03-05-2023 take 1 capsule by mouth once daily lisdexamfetamine (VYVANSE) 30 mg capsule Indications: ADHD (attention deficit hyperactivity disorder), inattentive type Take 1 capsule by mouth once daily for 14 days. 14 capsule 0 02/19/2023 03/05/2023 Active Comment on above: Take 1 capsule by [facility] once daily for 14 days. Take 1 capsule by [facility] once daily for 30 days. magnesium oxide 420 mg oral tablet (20 sources) Start: 2 End: 3 take 1 tablet by mouth once daily Magnesium Oxide 420 mg tab Take 1 tablet by mouth once daily. 100 tablet 1 05/23/2022 10/18/2022 Discontinued (Other) Comment on above: Take 1 tablet by [facility] once daily. malathion 5 mg/ml topical lotion (1 source) Start: 2 End: 2 Malathion 0.5 % lotion Apply to affected area one time only for 1 dose. As instructed on packaging. 59 mL 0 02/22/2022 02/22/2022 Active Comment on above: Apply to affected ar ea one time only for 1 dose. As instructed on packaging. methocarbamol 750 mg oral tablet (20 sources) Muscle Relaxant Start: End: take 750 mg by mouth three times daily Methocarbamol Active 750 MG PO THREE TIMES A DAY March 18, 2023 11:00pm End: 09-03-2023 take 1 tablet by mouth four times daily methocarbamol (ROBAXIN) 500 mg tablet Take 500 mg by mouth four times daily. 0 09/03/2023 Discontinued (Course of therapy completed) Comment on above: Take 1 tablet by evelina th three times daily. Take 500 mg by mouth four times daily. metroNIDAZOLE 500 mg oral tablet (4 sources) Nitroimidazole Antimicrobial Start: 04-16-2024 End: 04-16-2024 500 mg, Oral, STAT, 1 dose, On Sun04/16/24 at 0351 Start: 01-20-2022 End: 01-27-2022 take 1 tablet by mouth twice daily metroNIDAZOLE (FLAGYL) 500 mg tablet Take 1 tablet by mouth twice daily for 7 days. 14 tablet 0 01/20/2022 01/20/2022 Discontinued Comment on above: Take 1 tablet by evelina th twice daily for 7 days. molnupiravir 200 mg capsule (2 sources) Start: 03-21-20 End: 03-26-20 take 4 capsules by mouth twice daily molnupiravir 200 mg capsule Indications: COVID-19 virus infection Take 4 capsules by mouth twice daily for 5 days. 40 capsule 0 03/21/2023 03/26/2023 Active Comment on above: Take 4 capsules by m out twice daily for 5 days. nabumetone 500 mg oral tablet (1 source) Nonsteroidal Anti-inflammatory Drug Start: 04-18-20 take 500 mg by mouth twice daily Nabumetone Active 500 MG PO TWICE A DAY April 18, 2020 12:00am naproxen 375 mg oral tablet (9 sources) Nonsteroidal Anti-inflammatory Drug Start: 01-30-20 take 1 tablet by mouth every eight hours as needed naproxen (NAPROSYN) 375 mg tablet Take 1 tablet by mouth three times a day as needed (pain). 90 tablet 1 01/29/2025 Active Start: 02-16-2023 take 500 mg by mouth twice ilir ly Naproxen Active 500 MG PO TWICE A DAY February 16, 2023 12:00am Start: 12-28-2020 take 1 tablet by evelina th twice daily Naproxen (Naprosyn) 500 mg tablet Active 500 MG PO TWICE A DAY December 28, 2020 12:00am oseltamivir 75 mg oral capsule (1 source) Neuraminidase Inhibitor Start: 06-23-2022 End: 06-28-2022 take 1 capsule by mouth twice daily oseltamivir (TAMIFLU) 75 mg capsule Take 1 capsule by mouth twice daily for 5 days. 10 capsule 0 06/23/2022 06/28/2022 Active Comment on above: Take 1 capsule by mo uth twice daily for 5 days. oxyCODONE hydrochloride 5 mg oral tablet (18 sources) Opioid Agonist Start: 03-24-2024 oxyCODONE 5 mg oral tablet ( IMMEDIATE release ) Dose : 5 mg = 1 tab(s), Oral, q6h, PRN for pain, # 12 tab(s), 0 Refill(s), 83.1 Start Date: 03/24/24 Status: Ordered Start: 03-15-2024 End: 03-18-2024 oxyCODONE 5 mg oral tablet ( IMMEDIATE release ) Dose : 5 mg = 1 tab(s), Oral, q6hr, PRN as needed for pain, X 3 day(s), # 12 tab(s), 0 Refill(s), 03/18/24 8:01:00 AM EDT, Pharmacy: [facility]/pharmacy #[id number], Post-op pain S/P laparoscopic appendectomy, 170.2, cm, 03/14/24 20:49:00 EDT, Height, 83.1, kg, 03/14/24 20:49:00 EDT, Dosing Weight Start Date: 03/15/24 Stop Date: 03/18/24 Status: Ordered Start: 11-06-2023 take 1 tablet by evelina th every four hours as needed 5 mg, oral, Every 4 hours PRN, pain mild (1-3), first line, Starting on Sun11/06/23 at 0822, Recovery (only), When able to take oral medications., If ordered PRN for pain, nurse is permitted to administer this medication for higher pain scores based on patient preference? Yes Start: 03-11-2020 End: 03-14-2020 take 5 mg by mouth every six hours as needed Oxycodone Discontinued 5 MG PO EVERY 6 HOURS NEEDED 06 24March 11, 2020 March 13, 2020 11:02pm Start: 07-20-2019 End: 07-25-2019 take 5 mg by mouth every four hours as needed Oxycodone Discontinued 5 MG PO EVERY 4 HOURS NEEDED 09 12July 20, 2019 July 25, 2019 12:09am oxygen (O2) therapy (1 source) Start: 11-06-2023 inhalation, Co ntinuous PRN - O2/gases, other, Starting on Sun11/06/23 at 0822, Recovery (only), Device: Simple Face Mask, Rate in Liters per minute: 6 LPM, Keep O2 Sat Above: 92% predniSONE 20 mg oral tablet (13 sources) Start: 11-19-2024 End: 11-24-2024 take 2 tablets by mouth once daily predniSONE (Deltasone) 20 mg tablet Indications: Lumbar contusion, initial encounter Take 2 tablets (40 mg) by mouth once daily for 5 days. 10 tablet 11/19/2024 11/24/2024 Active Start: 03-15-2023 End: 03-25-2023 take 1 tablet by mouth once daily predniSONE (DELTASONE) 10 mg tablet Indications: Chronic bilateral low back pain without sciatica Take 1 tablet by mouth once daily for 10 days. 30 mg x 3 days, 20 mg x 3 days, 10 mg x 2 days, 5 mg x 2 days 18 tablet 0 03/15/2023 03/25/2023 Active Start: 02-16-2023 End: 03-08-2023 take 40 mg by mouth once daily Prednisone Discontinued 40 MG PO DAILY 10 February 15, 2023 11:00pm March 08, 2023 12:18pm Start: 11-06-2022 End: 11-11-2022 take 5 tablets by mouth once daily, then take 4 tablets by mouth once daily, then take 3 tablets by mouth once daily, then take 2 tablets by mouth once daily, then take 1 tablet by mouth once daily predniSONE (DELTASONE) 10 mg tablet Indications: Wheezing Take 5 tablets by mouth once daily for 1 day, THEN 4 tablets once daily for 1 day, THEN 3 tablets once daily for 1 day, THEN 2 tablets once daily for 1 day, THEN 1 tablet once daily for 1 day. 15 tablet 0 11/06/2022 11/11/2022 Active Start: 07-14-2021 take 50 mg by mouth once daily Prednisone Active 50 MG PO DAILY 09 11September 18, 2021 1:00am Comment on above: Take 5 tablets by [facility] once daily for 1 day, THEN 4 tablets once daily for 1 day, THEN 3 tablets once daily for 1 day, THEN 2 tablets once daily for 1 day, THEN 1 tablet once daily for 1 day. Take 1 tablet by [facility] once daily for 10 days. 30 mg x 3 days, 20 mg x 3 days, 10 mg x 2 days, 5 mg x 2 days prental multivitamin ( VITAMIN) 27 mg iron- 800 mcg tablet (3 sources) Start: take 1 tablet by mouth once daily prental multivitamin ( VITAMIN) 27 mg iron- 800 mcg tablet Indications: Encounter for test, result positive (HCC) , Missed menses , Unplanned (HCC) Take 1 tablet by mouth once daily. 90 tablet 3 02/27/2025 Active prochlorperazine 10 mg oral tablet (19 sources) Phenothiazine Start: take 1 tablet by mouth every eight hours as needed prochlorperazine (COMPAZINE) 10 mg tablet Take 1 tablet by mouth every 8 hours as needed for nausea/vomiting. 20 tablet 11/10/2024 Active promethazine (Phenergan) 6.25 mg in sodium chloride 0.9% 50 mL IV (1 source) Start: 6.25 mg, intravenous, Administer over 15 Minutes, Once as needed, Nausea/vomiting first line, Starting on Sun11/06/23 at 0822, For 1 dose, Recovery (only) sulfamethoxazole 800 mg / trimethoprim 160 mg oral tablet (2 sources) Dihydrofolate Reductase Inhibitor Antibacterial, Sulfonamide Antimicrobial Start: End: take 1 tablet by mouth twice daily sulfamethoxazole-trime thoprim (Bactrim DS) 800-160 mg tablet Indications: Urinary tract infection without hematuria, site unspecified , Flank pain Take 1 tablet by mouth 2 times a day for 10 days. 20 tablet 0 08/26/2023 09/05/2023 Active SUMAtriptan 100 mg oral tablet (20 sources) Serotonin-1b and Serotonin-1d Receptor Agonist Start: 023 End: 025 take 1 tablet by mouth every twenty-four hours as needed SUMAtriptan (Imitrex) 100 mg tablet Take 1 tablet (100 mg) by mouth once daily as needed for migraine. 05/30/2023 Active Start: 03-03-2023 End: 05-30-2023 take 1 tablet by mouth once daily as needed SUMAtriptan (IMITREX) 50 mg tablet Indications: Migraine with aura, not intractable, without status migrainosus Take 1 tablet (50 mg) by mouth once daily. prn 9 tablet 0 05/29/2023 05/30/2023 Discontinued (Course of therapy completed) Comment on above: Take 1 tablet by evelina once daily. prn Take 1 tablet (50 mg ) by mouth once daily. prn Take 1 tablet (100 m g) by mouth as needed. TAKE ONE (1) TABLET EVERY 2 HOURS WITH A MAXIMUM DOSE OF 200 MG PER DAY NEEDED FOR HEADACHE tiZANidine 4 mg oral tablet (20 sources) Central alpha-2 Adrenergic Agonist Start: 01-26-2025 take 1 tablet by mouth three times daily as needed tiZANidine (ZANAFLEX) 4 mg tablet Indications: Chronic midline low back pain without sciatica Take 1/2 - 1 tablet oral Three times a day , PRN as needed for 30 Days 90 tablet 1 01/26/2025 Active Start: 03-19-2023 take 4 mg by mouth at bedtime Tizanidine Active 4 MG PO AT BEDTIME March 18, 2023 11:00pm Start: 10-28-2021 End: 03-21-2022 take 1 tablet by mouth every six hours as needed tiZANidine (ZANAFLEX) 2 mg tablet Take 1 tablet by mouth every 6 hours as needed. 30 tablet 2 10/28/2021 03/21/2022 Discontinued Start: 08-02-2021 End: 01-25-2022 take 1 capsule by mouth once daily at bedtime tiZANidine HCl 2 mg capsule Take 1 capsule by mouth daily at bedtime. 30 capsule 2 10/27/2021 10/28/2021 Discontinued (Not on Formulary) Start: 07-14-2021 take 1 tablet by evelina th every eight hours Tizanidine (Zanaflex) 4 mg tablet Active 4 MG PO Q8H July 14, 2021 1:00am Start: 04-18-2020 End: 01-23-2025 take 1 tablet by mouth three times daily as needed tiZANidine (ZANAFLEX) 4 mg tablet Indications: Chronic midline low back pain without sciatica Take 1/2 - 1 tablet oral Three times a day , PRN as needed for 30 Days 90 tablet 3 10/13/2024 01/23/2025 Discontinued Start: 04-18-2020 End: 09-11-2023 take 1 tablet by mouth every twenty-four hours as needed tiZANidine (Zanaflex) 4 mg tablet Take 1 tablet (4 mg) by mouth once daily as needed for muscle spasms. 04/18/2020 Active Start: 04-18-2020 take 4 mg by mouth at bedtime Tizanidine Active 4 MG PO AT BEDTIME September 18, 2021 1:00am Comment on above: Take 1 capsule by mo uth daily at bedtime. Take 1 tablet by evelina th every 6 hours as needed. Take 1 tablet by evelina th at bedtime as needed (muscle spasms). Take 1/2 - 1 tablet oral Three times a day , PRN as needed for 30 Days triamcinolone acetonide 1 mg/ml topical cream (2 sources) Corticosteroid Start: 12-24-19 End: 12-31-19 triamcinolone acetonide (KENALOG) 0.1 % cream Apply 1 application to affected area twice daily for 7 days. Apply sparingly to area for rash/itching. 45 g 0 12/23/2021 12/30/2021 Active Comment on above: Apply 1 application to affected area twice daily for 7 days. Apply sparingly to area for rash/itching. varenicline 1 mg oral tablet (12 sources) Partial Cholinergic Nicotinic Agonist Start: 02-01-20 take 1 tablet by mouth twice daily varenicline (Chantix Starting Month Box) 0.5 mg (11)- 1 mg (42) tablet Indications: Smoking Take 1 mg by mouth 2 times a day. 53 each 01/31/2023 Active verapamil hydrochloride 80 mg oral tablet (20 sources) Calcium Channel Pily Start: 05-31-20 End: 11-28-19 23 take 1 tablet by mouth three times daily verapamil (CALAN, ISOPTIN) 80 mg tablet Indications: Intractable migraine without aura and with status migrainosus Take 1 tablet by mouth three times daily. 90 tablet 5 05/31/2022 10/18/2022 Discontinued (Other) Comment on above: Take 1 tablet by evelina th three times daily. Completed/Discontinued Medications Medication Drug Class(es) Dates Sig (Normalized) Sig (Original) 24 hr amphetamine aspartate 7.5 mg / amphetamine sulfate 7.5 mg / dextroamphetamine saccharate 7.5 mg / dextroamphetamine sulfate 7.5 mg extended release oral capsule (20 sources) Central Nervous System Stimulant Start: 01-27-2022 End: 03-21-2022 take 1 capsule by mouth once daily, then take 8 capsules by mouth every twenty-four hours amphetamine-dextro amphetamine XR (ADDERALL XR) 20 mg 24 hr capsule Indications: Attention deficit hyperactivity disorder (ADHD), predominantly inattentive type Take 1 capsule by mouth once daily for 30 days. Do not start before January 27, 2022. 30 capsule 0 01/27/2022 03/21/2022 Discontinued Start: 01-27-2022 End: 03-21-2022 take 1 capsule by mouth once daily, then take 8 capsules by mouth every twenty-four hours amphetamine-dextroamphetamine XR (ADDERA LL XR) 30 mg 24 hr capsule Indications: Attention deficit hyperactivity disorder (ADHD), predominantly inattentive type Take 1 capsule by mouth once daily for 30 days. Do not start before January 27, 2022. 30 capsule 0 01/27/2022 03/21/2022 Discontinued Start: 01-25-2022 End: 11-25-2021 take 1 capsule by mouth once daily, then take 6 capsules by mouth every twenty-four hours amphetamine-dextroamphetamine XR (ADDERA LL XR) 20 mg 24 hr capsule Indications: Attention deficit hyperactivity disorder (ADHD), predominantly inattentive type Take 1 capsule by mouth once daily for 30 days. Do not start before January 25, 2022. 30 capsule 0 01/25/2022 11/25/2021 Discontinued (Non-Compliance) Start: 01-25-2022 End: 11-25-2021 take 1 capsule by mouth once daily, then take 6 capsules by mouth every twenty-four hours amphetamine-dextroamphetamine XR (ADDERA LL XR) 30 mg 24 hr capsule Indications: Attention deficit hyperactivity disorder (ADHD), predominantly inattentive type Take 1 capsule by mouth once daily for 30 days. Do not start before January 25, 2022. 30 capsule 0 01/25/2022 11/25/2021 Discontinued (Non-Compliance) Start: 12-28-2021 End: 03-21-2022 take 1 capsule by mouth once daily, then take 8 capsules by mouth every twenty-four hours amphetamine-dextroamphetamine XR (ADDERA LL XR) 20 mg 24 hr capsule Indications: Attention deficit hyperactivity disorder (ADHD), predominantly inattentive type Take 1 capsule by mouth once daily for 30 days. Do not start before December 28, 2021. 30 capsule 0 12/28/2021 03/21/2022 Discontinued Start: 12-28-2021 End: 03-21-2022 take 1 capsule by mouth once daily, then take 8 capsules by mouth every twenty-four hours amphetamine-dextroamphetamine XR (ADDERA LL XR) 30 mg 24 hr capsule Indications: Attention deficit hyperactivity disorder (ADHD), predominantly inattentive type Take 1 capsule by mouth once daily for 30 days. Do not start before December 28, 2021. 30 capsule 0 12/28/2021 03/21/2022 Discontinued Start: 12-26-2021 End: 11-25-2021 take 1 capsule by mouth once daily, then take 6 capsules by mouth every twenty-four hours amphetamine-dextroamphetamine XR (ADDERA LL XR) 20 mg 24 hr capsule Indications: Attention deficit hyperactivity disorder (ADHD), predominantly inattentive type Take 1 capsule by mouth once daily for 30 days. Do not start before December 26, 2021. 30 capsule 0 12/26/2021 11/25/2021 Discontinued (Non-Compliance) Start: 12-26-2021 End: 11-25-2021 take 1 capsule by mouth once daily, then take 6 capsules by mouth every twenty-four hours amphetamine-dextroamphetamine XR (ADDERA LL XR) 30 mg 24 hr capsule Indications: Attention deficit hyperactivity disorder (ADHD), predominantly inattentive type Take 1 capsule by mouth once daily for 30 days. Do not start before December 26, 2021. 30 capsule 0 12/26/2021 11/25/2021 Discontinued (Non-Compliance) Start: 11-28-2021 End: 03-21-2022 take 1 capsule by mouth once daily, then take 9 capsules by mouth every twenty-four hours amphetamine-dextroamphetamine XR (ADDERA LL XR) 20 mg 24 hr capsule Indications: Attention deficit hyperactivity disorder (ADHD), predominantly inattentive type Take 1 capsule by mouth once daily for 30 days. Do not start before November 28, 2021. 30 capsule 0 11/28/2021 03/21/2022 Discontinued Start: 11-28-2021 End: 03-21-2022 take 1 capsule by mouth once daily, then take 9 capsules by mouth every twenty-four hours amphetamine-dextroamphetamine XR (ADDERA LL XR) 30 mg 24 hr capsule Indications: Attention deficit hyperactivity disorder (ADHD), predominantly inattentive type Take 1 capsule by mouth once daily for 30 days. Do not start before November 28, 2021. 30 capsule 0 11/28/2021 03/21/2022 Discontinued Start: 11-26-2021 End: 11-25-2021 take 1 capsule by mouth once daily, then take 7 capsules by mouth every twenty-four hours amphetamine-dextroamphetamine XR (ADDERA LL XR) 20 mg 24 hr capsule Indications: Attention deficit hyperactivity disorder (ADHD), predominantly inattentive type Take 1 capsule by mouth once daily for 30 days. Do not start before November 26, 2021. 30 capsule 0 11/26/2021 11/25/2021 Discontinued (Non-Compliance) Start: 11-26-2021 End: 11-25-2021 take 1 capsule by mouth once daily, then take 7 capsules by mouth every twenty-four hours amphetamine-dextroamphetamine XR (ADDERA LL XR) 30 mg 24 hr capsule Indications: Attention deficit hyperactivity disorder (ADHD), predominantly inattentive type Take 1 capsule by mouth once daily for 30 days. Do not start before November 26, 2021. 30 capsule 0 11/26/2021 11/25/2021 Discontinued Start: 08-04-2021 End: 02-24-2022 take 1 capsule by mouth once daily amphetamine-dextroamphetamine XR (ADDERA LL XR) 30 mg 24 hr capsule Indications: Attention deficit hyperactivity disorder (ADHD), predominantly inattentive type Take 1 capsule by mouth once daily for 30 days. 30 capsule 0 11/25/2021 11/25/2021 Discontinued (Non-Compliance) Start: 07-14-2021 End: 02-24-2022 take 1 capsule by mouth once daily amphetamine-dextroamphetamine XR (ADDERA LL XR) 20 mg 24 hr capsule Indications: Attention deficit hyperactivity disorder (ADHD), predominantly inattentive type Take 1 capsule by mouth once daily for 30 days. Take with 30mg cap. 30 capsule 0 10/27/2021 11/25/2021 Discontinued (Non-Compliance) Comment on above: Take 1 capsule by mo uth once daily for 30 days. Take with 30mg cap. Take 1 capsule by mo uth once daily for 30 days. Take with 20mg cap. Take 1 capsule by mo uth once daily for 30 days. Take with 30mg cap. Do not start before September 29, 2021. Take 1 capsule by mo uth once daily for 30 days. Take with 20mg cap. Do not start before September 29, 2021. Take 1 capsule by mo uth once daily for 30 days. Do not start before November 26, 2021. Take 1 capsule by mo uth once daily for 30 days. Do not start before December 26, 2021. Take 1 capsule by mo uth once daily for 30 days. Do not start before January 25, 2022. Take 1 capsule by mo uth once daily for 30 days. Do not start before November 28, 2021. Take 1 capsule by mo uth once daily for 30 days. Do not start before December 28, 2021. Take 1 capsule by mo uth once daily for 30 days. Do not start before January 27, 2022. Take 1 capsule by mo uth once daily for 30 days. ARIPiprazole 2 mg oral tablet (4 sources) Atypical Antipsychotic Start: 11-22-19 End: 12-07-19 take 1 tablet by mouth once daily ARIPiprazole (ABILIFY) 2 mg tablet Indications: Panic disorder Take 1 tablet by mouth once daily. 90 tablet 0 11/22/2023 12/07/2023 Discontinued benzocaine 140 mg/ml / butamben 20 mg/ml / tetracaine 20 mg/ml mucosal spray (1 source) Jo Local Anesthetic, Standardized Chemical Allergen Start: 04-15-20 End: 04-15-20 apply 1 spray(s) topically once 1 spray, Topical, Once, On Sun04/15/24 at 1620, For 1 dose, Apply to: dental balls Calcium Carbonate / vitamin D3 (20 sources) End: 01-04-20 calcium carbonate/vitamin D3 (CALCIUM 500 WITH D ORAL) Take by mouth. 0 01/03/2023 Discontinued calcium carbonat e/vitamin D3 (CALCIUM 500 WITH D ORAL) Take by mouth. 0 Active Comment on above: Take by mouth. cefTRIAXone 2000 mg injection (1 source) Cephalosporin Antibacterial Start: 08-26-19 End: 08-26-19 cefTRIAXone (Rocephin) 2 g IV in dextrose 5% 50 mL citalopram 20 mg oral tablet (20 sources) Serotonin Reuptake Inhibitor Start: 05-16-20 End: 01-30-20 take 2 tablets by mouth once daily citalopram (CELEXA) 20 mg tablet Take 2 tablets by mouth once daily. 05/16/2024 01/29/2025 Discontinued Start: 03-14-2024 citalopram 40 mg oral tablet Dose : 40 mg = 1 tab(s) Start Date: 03/14/24 Status: Ordered Start: 12-07-2023 End: 05-16-2024 take 1 tablet by mouth once daily citalopram (CELEXA) 20 mg tablet Take 1 tablet by mouth once daily. 12/07/2023 05/16/2024 Discontinued (Adjust Sig - Block E-Cancel) Start: 11-22-2023 End: 12-07-2023 take 1 tablet by mouth once daily citalopram hydrobrom jenny (CELEXA) 10 mg tablet Indications: Panic disorder , Anxiety with depression Take 1 tablet by mouth once daily. 90 tablet 0 11/22/2023 12/07/2023 Discontinued Start: 08-04-2021 End: 04-06-2022 take 1 tablet by mouth once daily for depression citalopram (CELEXA) 20 mg tablet Indications: Anxiety with depression Take 1 tablet by mouth once daily. For depression 90 tablet 1 08/04/2021 04/06/2022 Discontinued Start: 07-14-2021 take 2 tablets by mo uth once daily Citalopram (Celexa) 10 mg Tablet Active 20 MG PO DAILY July 14, 2021 1:00am Comment on above: Take 1 tablet by evelina th once daily. For depression 1 ml dexamethasone phosphate 10 mg/ml injection (1 source) Corticosteroid Start: End: 8 mg, intravenous, Once, On Sun11/06/23 at 0715, For 1 dose, Preprocedure 12 hr dextromethorphan hydrobromide 30 mg / guaiFENesin 600 mg extended release oral tablet (20 sources) Uncompetitive N-euuieg-T-aspartate Receptor Antagonist, Sigma-1 Agonist Start: End: take 1 tablet by mouth twice daily dextromethorphan-gu aiFENesin (MUCINEX DM) 30-600 mg per tablet Indications: Viral upper respiratory tract infection with cough Take 1 tablet by mouth two times a day. 14 tablet 05/27/2024 01/29/2025 Discontinued (Other) diphenhydrAMINE (1 source) Histamine-1 Receptor Antagonist Start: End: 50 mg, intravenous, Once, On Sun09/05/24 at 1950, For 1 dose, If giving IV push, max rate of 25 mg/min. emtricitabine 200 mg / tenofovir disoproxil fumarate 300 mg oral tablet (2 sources) Human Immunodeficiency Virus Nucleoside Analog Reverse Transcriptase Inhibitor Start: End: take 1 tablet by mouth once daily emtricitabine-tenof ovir disoproxil fumerate (TRUVADA) 200-300 mg per tablet Take 1 tablet by mouth once daily for 28 days. 28 tablet 0 08/14/2022 08/29/2022 Discontinued (Discontinued by Patient) Comment on above: Take 1 tablet by evelina th once daily for 28 days. escitalopram 5 mg oral tablet (20 sources) Serotonin Reuptake Inhibitor End: take 1 tablet by mouth once daily escitalopram oxalate (LEXAPRO) 5 mg tablet Take 5 mg by mouth once daily. 01/29/2025 Discontinued (Other) 2 ml famotidine 10 mg/ml injection (20 sources) Histamine-2 Receptor Antagonist Start: End: 024 20 mg, intravenous, Once, On Sun11/06/23 at 0715, For 1 dose, Preprocedure Start: 03-21-2022 End: 03-10-2023 take 20 mg by mouth once daily Famotidine Discontinued 20 MG PO DAILY November 14, 2022 11:00pm March 08, 2023 12:18pm Comment on above: Take 1 tablet by [facility] at bedtime as needed. ferrous gluconate 324 mg oral tablet (5 sources) End: 11-05-2023 take 1 tablet by mouth once daily at breakfast ferrous gluconate (Fergon) 324 (38 Fe) mg tablet Take 1 tablet (38 mg of iron) by mouth once daily with breakfast. 11/05/2023 Discontinued (Med List Cleanup) ferrous sulfate 134 mg oral tablet (20 sources) Start: 11-15-2022 End: 03-08-2023 take 287 mg by mouth once daily Ferrous Sulfate Discontinued 287 MG PO DAILY November 14, 2022 11:00pm March 08, 2023 12:18pm ferrous sulfate (IRON ORAL) Take by mouth. 0 Active Comment on above: Take by mouth. FLUoxetine 20 mg oral capsule (20 sources) Serotonin Reuptake Inhibitor Start: End: take 1 capsule by mouth once daily, then take 2 capsules by mouth once daily FLUoxetine (PROZAC) 20 mg capsule Indications: Anxiety with depression Take 1 capsule by mouth once daily for 14 days, THEN 2 capsules once daily. 74 capsule 0 06/13/2023 07/03/2023 Discontinued Start: 03-21-2022 End: 08-29-2022 take 1 capsule by mouth once daily FLUoxetine (PROZAC) 20 mg capsule Take 1 capsule by mouth once daily. 30 capsule 2 03/21/2022 08/29/2022 Discontinued (Discontinued by Patient) Comment on above: Take 1 capsule by [facility] once daily. Take 1 capsule by [facility] once daily for 14 days, THEN 2 capsules once daily. fluticasone propionate 0.05 mg/actuat metered dose nasal spray (20 sources) Corticosteroid Start: 05-27-20 End: 03-26-20 take 2 spray(s) by mouth once daily fluticasone (FLONASE) 50 mcg/actuation nasal spray Indications: Viral upper respiratory tract infection with cough Use 2 Sprays in each nostril once daily. Rinse mouth after use. 9.9 mL 05/27/2024 03/26/2025 Discontinued (Other) hydrOXYzine pamoate 50 mg oral capsule (4 sources) Antihistamine Start: 05-26-20 End: 05-26-20 take 1 capsule by mouth once hydrOXYzine pamoate (VISTARIL) 50 mg capsule Take 1 capsule by mouth one time only for 1 dose. take 1 hr before procedure. 1 capsule 05/26/2024 05/26/2024 Discontinued Start: 05-26-2024 End: 05-26-2024 take 1 tablet by mouth once hydrOXYzine HCl (ATARAX) 5 0 mg tablet Take 1 tablet by mouth one time only for 1 dose. 1 hr before procedure. 1 tablet 05/26/2024 05/26/2024 Discontinued (Discontinued by Patient) Start: 12-17-2020 End: 12-30-2020 take 1 tablet by mouth every eight hours hydrOXYzine hydrochloride 50 mg oral tablet ; 1 tab(s) orally every 8 hours as needed anxiety Quantity: 42 Refills: 0 Ordered: 17-Dec-2020 Dev Flannery IV Start: 17-Dec-2020 End: 30-Dec-2020 Generic Substitution Allowed Comments: May cause drowsiness. Alcohol may intensify this effect. Use care when operating dangerous machinery.Obtain medical advice before taking any non-prescription drugs as some may affect the action of this medication. Comment on above: May cause drowsiness . Alcohol may intensify this effect. Use care when operating dangerous machinery.Obtain medical advice before taking any non-prescription drugs as some may affect the action of this medication. iohexol (OMNIPaque) 350 mg iodine/mL solution 68 mL (1 source) Start: 02-11-2025 End: 02-11-2025 68 mL, intravenous, Once in imaging, Starting on Sun02/11/25 at 0100, For 1 dose iohexol (OMNIPaque) 350 mg iodine/mL solution 70 mL (1 source) Start: 04-15-2024 End: 04-15-2024 70 mL, intravenous, Once in imaging, Starting on Sun04/15/24 at 1440, For 1 dose LORazepam 0.5 mg oral tablet (20 sources) Benzodiazepine Start: 03-15-2024 Ativan 0.5 mg oral tablet Dose : 0.25 mg = 0.5 tab(s), Oral, BID, PRN anxiety severe, 0 Refill(s), 83.1 Start Date: 03/15/24 Status: Ordered LORazepam (ATIVA N) 0.5 mg Take 0.25 mg by mouth as needed (panic attacj). Active meloxicam 15 mg oral tablet (20 sources) Nonsteroidal Anti-inflammatory Drug Start: 08-14-2023 End: 11-22-2023 take 1 tablet by mouth once daily at mealtime as needed meloxicam (MOBIC) 15 mg tablet TAKE 1 TABLET BY MOUTH EVERY DAY WITH FOOD NEEDED FOR 30 DAYS 0 08/14/2023 11/22/2023 Discontinued End: 03-21-2022 take 1 tablet by mouth once daily meloxicam (MOBIC) 15 mg tablet Take 15 mg by mouth once daily. 0 03/21/2022 Discontinued Comment on above: Take 15 mg by mouth once daily. TAKE 1 TABLET BY EVELINA TH EVERY DAY WITH FOOD NEEDED FOR 30 DAYS 24 hr metFORMIN hydrochloride 500 mg extended release oral tablet (20 sources) Biguanide Start: 2023 End: 2023 take 1 tablet by mouth once daily at breakfast metFORMIN ER (GLUCOPHAGE XR) 500 mg 24 hr tablet Take 1 tablet by mouth daily with breakfast. 90 tablet 08/06/2023 05/16/2024 Discontinued Comment on above: Take 1 tablet by evelina th daily with breakfast. methylPREDNISolone 125 mg injection (1 source) Corticosteroid Start: 2023 End: 2023 125 mg, intravenous, Once, On Sun04/15/24 at 1325, For 1 dose 2 ml metoclopramide 5 mg/ml injection (20 sources) Dopamine-2 Receptor Antagonist Start: 2024 End: 2024 10 mg, intravenous, Once, On Sun09/05/24 at 1950, For 1 dose Start: 05-23-2022 End: 10-18-2022 take 1 tablet by mouth three times daily as needed metoclopramide HCl (REGLAN) 10 mg tablet Indications: Intractable migraine without aura and with status migrainosus Take 1 tablet by mouth three times daily as needed (with tylenol for migraine). 30 tablet 0 05/23/2022 10/18/2022 Discontinued (Other) Comment on above: Take 1 tablet by evelina th three times daily as needed (with tylenol for migraine). 5 ml midazolam 1 mg/ml injection (1 source) Benzodiazepine Start: 024 End: 024 2 mg, intravenous, Once, On Sun11/06/23 at 0715, For 1 dose, Preprocedure 1 ml morphine sulfate 4 mg/ml prefilled syringe (4 sources) Opioid Agonist Start: 025 End: 025 inject 4 mg by intramuscular injection once 4 mg, intramuscular, Once, On Sun11/18/24 at 2305, For 1 dose Start: 04-15-2024 End: 04-15-2024 4 mg, intravenous, Once, On Sun04/15/24 at 1645, For 1 dose Start: 08-26-2023 End: 08-26-2023 morphine injection 4 mg bsrpovrssa-zpvvqd-k-sali-men th (NUDROXIPAK N-500) 500 mg-0.025 %- 25 %-6 % kit (18 sources) End: 03-21-2022 dbnazastyi-fkgwfh-h-sali-men th (NUDROXIPAK N-500) 500 mg-0.025 %- 25 %-6 % kit nabumetone-capsa w-j-crzf-menth (NUDROXIPAK N-500) 500 mg-0.025 %- 25 %-6 % kit Nicotine (20 sources) Cholinergic Nicotinic Agonist Start: 11-15-2022 End: 03-08-2023 Nicotine Discontinued 22 MG TD DAILY November 14, 2022 11:00pm March 08, 2023 12:18pm Start: 11-15-2022 End: 03-08-2023 Nicotine Discontinued 22 MG TD DAILY November 15, 2022 12:00am March 08, 2023 1:18pm Start: 11-15-2022 Nicotine Activ e 22 MG TD DAILY November 15, 2022 12:00am Start: 08-29-2022 End: 01-03-2023 apply 1 dose transdermal route every twenty-four hours nicotine (NICODERM) 14 mg/24 hr Indications: Nicotine withdrawal Apply 1 Patch as directed every 24 hours. No smoking with patch. 14 Patch 0 08/29/2022 01/03/2023 Discontinued Start: 08-29-2022 End: 01-03-2023 apply 1 dose transdermal route every twenty-four hours nicotine (NICODERM) 21 mg/24 hr Indications: Nicotine withdrawal Apply 1 Patch as directed every 24 hours. 42 Patch 0 08/29/2022 01/03/2023 Discontinued Start: 03-21-2022 End: 01-03-2023 nicotine (NICODERM) 7 mg/24 hr Indications: Nicotine withdrawal Apply 1 Patch as directed every 24 hours. 14 Patch 0 08/29/2022 01/03/2023 Discontinued Start: 03-21-2022 End: 05-23-2022 apply 1 dose transdermal route every twenty-four hours nicotine (NICODERM) 14 mg/24 hr Indications: Tobacco use Apply 1 Patch as directed every 24 hours. No smoking with patch. 42 Patch 0 03/21/2022 05/23/2022 Discontinued Start: 03-21-2022 End: 05-23-2022 apply 1 dose transdermal route every twenty-four hours nicotine (NICODERM) 21 mg/24 hr Indications: Tobacco use Apply 1 Patch as directed every 24 hours. 42 Patch 0 03/21/2022 05/23/2022 Discontinued Start: 08-04-2021 End: 03-21-2022 nicotine (NICOTROL) 10 mg in haler Indications: Vaping-related disorder Use 6-16 cartridge daily, with each cartridge take 10 short puffs, may use over 20 minutes. No more than 16 cartridges in 24 hours. Do not smoke or vape once you have started medication. Use over 6-12 weeks, then taper use. 168 Each 2 08/04/2021 03/21/2022 Discontinued Comment on above: Use 6-16 cartridge d aily, with each cartridge take 10 short puffs, may use over 20 minutes. No more than 16 cartridges in 24 hours. Do not smoke or vape once you have started medication. Use over 6-12 weeks, then taper use. Apply 1 Patch as dir ected every 24 hours. Apply 1 Patch as dir ected every 24 hours. No smoking with patch. Apply 1 Patch as dir ected every 24 hours for 14 days. omeprazole 20 mg delayed release oral capsule (18 sources) Proton Pump Inhibitor Start: 2 End: 2 take 1 capsule by mouth once daily omeprazole (PRILOSEC) 20 mg capsule Indications: Heartburn Take 1 capsule by mouth once daily. 30 capsule 2 10/27/2021 03/21/2022 Discontinued Comment on above: Take 1 capsule by [facility] once daily. 2 ml ondansetron 2 mg/ml injection (20 sources) Serotonin-3 Receptor Antagonist Start: 5 End: 5 4 mg, intravenous, Once, On Sun04/21/25 at 1640, For 1 dose, When administering via IV Push, administer over 3-5 minutes. Start: 11-18-2024 End: 11-18-2024 take 4 mg by mouth once 4 mg, oral, Once, On 10/22 at 2305, For 1 dose Start: 04-15-2024 End: 04-15-2024 4 mg, intravenous, Once, On Sun04/15/24 at 1515, For 1 dose, When administering via IV Push, administer over 3-5 minutes. Start: 03-19-2024 End: 03-28-2024 Zofran 4 mg oral tablet Dose : 4 mg = 1 tab(s), Oral, q6h, PRN Nausea/Vomiting, # 20 tab(s), 0 Refill(s), 03/28/24 6:05:00 PM EDT, Pharmacy: [id number], 170.2, cm, 03/14/24 20:49:00 EDT, Height, kg, 03/14/24 20:49:00 EDT, Dosing Weight Start Date: 03/19/24 Stop Date: 03/28/24 Status: Ordered Start: 11-06-2023 End: 11-06-2023 4 mg, intravenous, Once as n eeded, nausea/vomiting, second line, Starting on Sun11/06/23 at 0822, For 1 dose, Recovery (only), When administering via IV Push, administer over 3-5 minutes. Start: 08-26-2023 End: 08-26-2023 ondansetron (Zofran) injecti on 4 mg Start: 06-24-2022 End: 10-18-2022 take 1 tablet by mouth every eight hours as needed for nausea ondansetron orally disintegrating (ZOFRAN ODT) 4 mg disintegrating tablet Indications: Nausea/vomiting in Take 1 tablet by mouth every 8 hours as needed for nausea/vomiting. 15 tablet 0 06/24/2022 10/18/2022 Discontinued (Other) Start: 05-02-2022 take 4 mg by mouth e very eight hours Ondansetron Active 4 MG PO Q8H May 02, 2022 12:00am Comment on above: Take 1 tablet by evelina th every 8 hours as needed for nausea/vomiting. 2 ml orphenadrine citrate 30 mg/ml injection (1 source) Muscle Relaxant Start : 11-18 End: 11-18 inject 60 mg by intramuscular injection once 60 mg, intramuscular, Once, On Sun11/18/24 at 2220, For 1 dose phenazopyridine hydrochloride 200 mg oral tablet (3 sources) Start : 08-26 End: 08-28 phenazopyridine (Pyridium) tablet 200 mg PNV no.95/ferrous fum/folic ac ( ORAL) (20 sources) End: 03-03 PNV no.95/ferrous fum/folic ac ( ORAL) Take by mouth. 0 03/03/2023 Discontinued (Discontinued by Patient) PNV no.95/ferrou s fum/folic ac ( ORAL) Take by mouth. 0 Active Comment on above: Take by mouth. pregabalin 25 mg oral capsule (17 sources) Start: 08-02-2021 End: 03-21-2022 pregabalin (LYRICA) 25 mg capsule Indications: Herniated intervertebral disc of lumbar spine , Intervertebral disc disorder with radiculopathy of lumbar region Take 1 at night for 5 nights. Then take 2 at night for 5 nights. Then take 3 at night. 90 capsule 2 08/02/2021 03/21/2022 Discontinued Comment on above: Take 1 at night for 5 nights. Then take 2 at night for 5 nights. Then take 3 at night. Womtmisd-You-Yy-Fa ( 1) 1 mg Tablet (6 sources) Start: 10-28-2022 End: 03-08-2023 take 1 tablet by mouth once daily Itodgxjv-Fqp-Yy-Fa ( 1) 1 mg Tablet Discontinued 1 TABLET PO DAILY October 27, 2022 11:00pm March 08, 2023 12:18pm Start: 10-28-2022 End: 03-08-2023 take 1 tablet by mouth once daily Irligvpm-Xjq-Bc-Fa ( 1) 1 mg Tablet Discontinued 1 TABLET PO DAILY October 28, 2022 12:00am March 08, 2023 1:18pm Start: 10-28-2022 take 1 tablet by evelina th once daily Uffmnfpi-Afe-Sw-Fa ( 1) 1 mg Tablet Active 1 TABLET PO DAILY October 28, 2022 12:00am no115/iron/folic ac id ( 19 ORAL) (5 sources) End: 11-05-2023 no115/iron/folic ac id ( 19 ORAL) Take by mouth. 11/05/2023 Discontinued (Med List Cleanup) no115/i lencho/folic acid ( 19 ORAL) Take by mouth. 0 Active raltegravir 400 mg oral tablet (2 sources) Human Immunodeficiency Virus Integrase Strand Transfer Inhibitor Start: 08-14-2022 End: 09-11-2022 take 1 tablet by mouth twice daily raltegravir (ISENTRESS) 400 mg tablet Take 1 tablet by mouth twice daily for 28 days. 56 tablet 0 08/14/2022 08/29/2022 Discontinued (Discontinued by Patient) Comment on above: Take 1 tablet by evelina th twice daily for 28 days. 72 hr scopolamine 0.0139 mg/hr transdermal system (5 sources) Anticholinergic Start: 10-12-2023 End: 11-22-2023 scopolamine (TRANSDERM-SCOP) patch 1.5 mg/72 hr (delivers 1 mg over 3 days) Indications: Motion sickness, initial encounter Apply 1 Patch as directed every 72 hours. 4 Patch 0 10/12/2023 11/22/2023 Discontinued Comment on above: Apply 1 Patch as dir ected every 72 hours. semaglutide (OZEMPIC) 0.25 mg or 0.5 mg (2 mg/3 mL) pen (3 sources) Start: 05-16-2024 End: 05-19-2024 semaglutide (OZEMPIC) 0.25 mg or 0.5 mg (2 mg/3 mL) pen Indications: Class 1 obesity due to excess calories without serious comorbidity with body mass index (BMI) of 30.0 to 30.9 in adult Inject 0.25 mg subcutaneously one time a week. 1 Each 1 05/16/2024 05/19/2024 Discontinued Start: 05-16-2024 semaglutide (O ZEMPIC) 0.25 mg or 0.5 mg (2 mg/3 mL) pen Indications: Class 1 obesity due to excess calories without serious comorbidity with body mass index (BMI) of 30.0 to 30.9 in adult Inject 0.25 mg subcutaneously one time a week. 1 Each 1 05/16/2024 Active semaglutide, weight loss, (WEGOVY) 0.25 mg/0.5 mL pen injector (20 sources) Start: 05-22-2024 End: 01-29-2025 semaglutide, weight loss, (WEGOVY) 0.25 mg/0.5 mL pen injector Indications: Class 1 obesity due to excess calories without serious comorbidity with body mass index (BMI) of 30.0 to 30.9 in adult Inject 0.5 mL subcutaneously one time a week. 4 Each 1 05/22/2024 01/29/2025 Discontinued (Other) Start: 05-22-2024 semaglutide, w eight loss, (WEGOVY) 0.25 mg/0.5 mL pen injector Indications: Class 1 obesity due to excess calories without serious comorbidity with body mass index (BMI) of 30.0 to 30.9 in adult Inject 0.5 mL subcutaneously one time a week. 4 Each 1 05/22/2024 Active 1000 ml sodium chloride 9 mg/ml injection (4 sources) Start: 04-21-2025 End: 04-21-2025 1,000 mL, intravenous, at 99 9 mL/hr, Administer over 1 Hours, Once, On Sun04/21/25 at 1640, For 1 dose Start: 09-05-2024 End: 09-05-2024 1,000 mL, intravenous, at 2, 000 mL/hr, Administer over 30 Minutes, Once, On Sun09/05/24 at 1950, For 1 dose Start: 04-15-2024 End: 04-15-2024 1,000 mL, intravenous, at 99 9 mL/hr, Administer over 1 Hours, Once, On Sun04/15/24 at 1325, For 1 dose Start: 08-26-2023 End: 08-26-2023 sodium chloride 0.9 % bolus 1,000 mL Problems Active Problems Problem Classification Problem Date Documented Da te Episodic/Chronic Abdominal pain (20 sources) Flank pain; Translations: [Unspecified abdominal pain] Onset: 4 03-13-2023 Episodic Anxiety disorders (20 sources) Panic attack; Translations: [Panic disorder without agoraphobia] Onset: 3 12-17-2020 Chronic Comment on above: ANXIETY Appendicitis and other appendiceal conditions (3 sources) Appendicitis; Translations: [Unspecified appendicitis] Onset: 4 Episodic Asthma (20 sources) Mild intermittent asthma; Translations: [Mild intermittent asthma, uncomplicated] Onset: 6 Resolved: 0 08-03-2020 Chronic Attention-deficit, conduct, and disruptive behavior disorders (20 sources) Attention deficit hyperactivity disorder, predominantly inattentive type; Translations: [Attention-deficit hyperactivity disorder, predominantly inattentive type] Onset: 8 Chronic Attention-deficit, conduct, and disruptive behavior disorders (1 source) Adult attention deficit hyperactivity disorder ; Translations: [Attention-deficit hyperactivity disorder, unspecified type] 07-03-2023 Chronic Attention-deficit, conduct, and disruptive behavior disorders (3 sources) Attention-deficit hyperactivity disorder, predominantly inattentive type; Translations: [Attention-deficit hyperactivity disorder, predominantly inattentive type] Onset: 3 Chronic Attention-deficit, conduct, and disruptive behavior disorders (1 source) Attention deficit hyperactivity disorder, combined type; Translations: [Attention-deficit hyperactivity disorder, combined type] 03-30-2025 Chronic Attention-deficit, conduct, and disruptive behavior disorders (1 source) Attention-deficit hyperactivity disorder, unspecified type; Translations: [Attention-deficit hyperactivity disorder, unspecified type] Onset: 5 Chronic Cardiac dysrhythmias (6 sources) Palpitations; Translations: [Tachyarrhythmia ] Onset: 4 Episodic Complication of device; implant or graft (1 source) Malposition of intrauterine contraceptive device; Translations: [Displacement of intrauterine contraceptive device, initial encounter] 03-18-2024 Episodic Conduction disorders (1 source) Right bundle branch block; Translations: [Unspecified right bundle-branch block] 05-16-2024 Chronic Contraceptive and procreative management (3 sources) Encounter for insertion of intrauterine contraceptive device; Translations: [Encounter for insertion of intrauterine contraceptive device] 05-11-2023 Episodic Disorders of teeth and jaw (4 sources) Toothache; Translations: [Other specified disorders of teeth and supporting structures] 03-27-2024 Episodic Esophageal disorders (1 source) Gastroesophageal reflux disease; Translations: [Gastro-esophageal reflux disease without esophagitis] Chronic Fever of unknown origin (1 source) Fever; Translations: [Fever, unspecified] Onset: 4 Episodic Headache; including migraine (20 sources) Migraine without aura, not refractory ; Translations: [Migraine without aura, not intractable, without status migrainosus] Onset: 6 09-07-2015 Chronic Hemorrhage during ; abruptio placenta; placenta previa (2 sources) Threatened miscarriage; Translations: [Threatened ] Episodic Hepatitis (9 sources) Hepatitis C carrier; Translations: [Chronic viral hepatitis C] Onset: 4 11-06-2023 Chronic Immunizations and screening for infectious disease (20 sources) Patient encounter status; Translations: [Encounter for screening for human papillomavirus (HPV)] Episodic Lymphadenitis (3 sources) Lymphadenopathy; Translations: [Enlarged lymph nodes, unspecified] 12-28-2020 Episodic Malaise and fatigue (7 sources) Fatigue; Translations: [Other fatigue] 12-18-2020 Episodic Menstrual disorders (15 sources) Missed period; Translations: [Irregular menstruation, unspecified] Onset: 5 Chronic Mood disorders (20 sources) Depressive disorder; Translations: [Depression] Onset: 1 Resolved: 0 09-18-2019 Chronic Mood disorders (3 sources) Mood disorders; Translations: [Depression, unspecified] Onset: 3 Nonspecific chest pain (5 sources) Chest pain; Translations: [Chest pain, unspecified] Onset: 4 06-04-2023 Episodic Other aftercare (2 sources) Drug therapy finding; Translations: [Other fdc (current) drug therapy] 02-14-2023 Episodic Other and unspecified benign neoplasm (1 source) Adrenal adenoma; Translations: [Benign neoplasm of unspecified adrenal gland] 08-26-2023 Episodic Other complications of ; puerperium affecting management of mother (2 sources) Other disorders of breast associated with and the puerperium; Translations: [Other and unspecified disorder of breast associated with childbirth, condition or complication] 11-26-2022 Episodic Other complications of ; puerperium affecting management of mother (1 source) Other disorders of ; Translations: [Other disorders of , unspecified as to episode of care or not applicable] 12-10-2022 Episodic Other complications of (1 source) Maternal obesity complicating , childbirth and the puerperium, antepartum; Translations: [Obesity complicating , second trimester] Chronic Other complications of (10 sources) Anemia during - baby not yet delivered; Translations: [Anemia complicating , second trimester] Onset: 3 Chronic Other complications of (8 sources) High risk ; Translations: [Supervision of high risk , unspecified, unspecified trimester] Episodic Other complications of (2 sources) care status; Translations: [Supervision of with insufficient care, third trimester] Episodic Other complications of (2 sources) size does not accord with dates; Translations: [Uterine size-date discrepancy, third trimester] Episodic Other complications of (7 sources) Supervision of with grand multiparity, unspecified trimester; Translations: [Other specified complications of , unspecified as to episode of care or not applicable] 10-28-2022 Episodic Other complications of (1 source) Supervision of high risk , unspecified, second trimester; Translations: [Supervision of high risk in second trimester (HCC)] Onset: 5 Episodic Other connective tissue disease (7 sources) H/O: osteoarthritis; Translations: [Personal history of other diseases of the musculoskeletal system and connective tissue] 07-23-2021 Episodic Other connective tissue disease (1 source) Myofascial pain; Translations: [Myalgia, other site] 03-15-2023 Episodic Other connective tissue disease (2 sources) Hand cramps; Translations: [Cramp and spasm] 09-21-2023 Episodic Other endocrine disorders (4 sources) Disorder of adrenal gland; Translations: [Disorder of adrenal gland, unspecified] 08-31-2023 Chronic Other endocrine disorders (3 sources) Adrenal mass; Translations: [Other specified disorders of adrenal gland] 08-31-2023 Chronic Other female genital disorders (1 source) Vaginal discharge; Translations: [Other specified noninflammatory disorders of vagina] Episodic Other female genital disorders (3 sources) History of abnormal cervical Papanicolaou smear ; Translations: [Personal history of other diseases of the female genital tract] 09-28-2023 Episodic Other gastrointestinal disorders (1 source) Heartburn; Translations: [Heartburn] Episodic Other infections; including parasitic (4 sources) History of hepatitis C; Translations: [Personal history of other infectious and parasitic diseases] 07-03-2023 Episodic Other injuries and conditions due to external causes (1 source) Motion sickness; Translations: [Motion sickness, initial encounter] 10-12-2023 Episodic Other lower respiratory disease (2 sources) Hyperventilation; Translations: [Hyperventilation] 12-17-2020 Episodic Other lower respiratory disease (8 sources) Cough; Translations: [Cough] 12-14-2019 Episodic Other lower respiratory disease (14 sources) Dyspnea; Translations: [Dyspnea, unspecified] 12-18-2020 Episodic Other lower respiratory disease (1 source) Wheezing; Translations: [Wheezing] Episodic Other nervous system disorders (9 sources) Chronic pain syndrome; Translations: [Chronic pain syndrome] Onset: 4 11-06-2023 Chronic Other nervous system disorders (2 sources) Other chronic pain; Translations: [Chronic bilateral low back pain, unspecified whether sciatica present] Onset: 4 Chronic Other nervous system disorders (1 source) Skin sensation disturbance; Translations: [Unspecified disturbances of skin sensation] 03-15-2023 Episodic Other nervous system disorders (2 sources) Facial paresthesia; Translations: [Anesthesia of skin] 06-10-2023 Episodic Other nervous system disorders (1 source) Paresthesia of skin; Translations: [Paresthesia of skin] Onset: 3 Episodic Other nervous system disorders (2 sources) Facial palsy; Translations: [Terry's palsy] 09-21-2023 Episodic Other nervous system disorders (1 source) Postoperative pain ; Translations: [Other acute postprocedural pain] Onset: 4 Episodic Other nutritional; endocrine; and metabolic disorders (2 sources) Obesity caused by energy imbalance; Translations: [Class 1 obesity due to excess calories without serious comorbidity with body mass index (BMI) of 30.0 to 30.9 in adult] 05-16-2024 Chronic Other nutritional; endocrine; and metabolic disorders (3 sources) Overweight in adulthood with body mass index of 25 or more but less than 30; Translations: [Overweight] 06-13-2023 Episodic Other and delivery including normal (20 sources) Urine test positive; Translations: [Encounter for test, result positive] Onset: 2 Resolved: 3 Episodic Comment on above: System added from do cumentation. Status documented as Yes on Admission Other screening for suspected conditions (not mental disorders or infectious disease) (1 source) Imaging result abnormal; Translations: [Abnormal findings on diagnostic imaging of other specified body structures] Onset: 4 Chronic Other screening for suspected conditions (not mental disorders or infectious disease) (9 sources) Cancer cervix screening status; Translations: [Encounter for screening for malignant neoplasm of cervix] Onset: 5 Episodic Other skin disorders (1 source) Eruption; Translations: [Rash and other nonspecific skin eruption] Episodic Other upper respiratory infections (6 sources) Pharyngitis; Translations: [Acute pharyngitis, unspecified] Episodic Residual codes; unclassified (1 source) Tobacco use and exposure - finding; Translations: [Tobacco use] Episodic Residual codes; unclassified (1 source) Gestation period, 12 weeks; Translations: [12 weeks gestation of ] Episodic Residual codes; unclassified (1 source) Gestation period, 13 weeks; Translations: [13 weeks gestation of ] Episodic Residual codes; unclassified (1 source) Gestation period, 19 weeks; Translations: [19 weeks gestation of ] Episodic Residual codes; unclassified (1 source) Gestation period, 22 weeks; Translations: [22 weeks gestation of ] Episodic Residual codes; unclassified (2 sources) Gestation period, 24 weeks; Translations: [24 weeks gestation of ] Episodic Residual codes; unclassified (1 source) Gestation period, 34 weeks; Translations: [34 weeks gestation of ] Episodic Residual codes; unclassified (2 sources) Gestation period, 36 weeks; Translations: [36 weeks gestation of ] Episodic Residual codes; unclassified (1 source) Gestation period, 38 weeks; Translations: [38 weeks gestation of ] Episodic Residual codes; unclassified (4 sources) Gestation period, 39 weeks; Translations: [39 weeks gestation of ] 11-22-2022 Episodic Residual codes; unclassified (2 sources) 39 weeks gestation of ; Translations: [ state, incidental] 11-23-2022 Episodic Residual codes; unclassified (1 source) Acquired absence of organ; Translations: [Acquired absence of other specified parts of digestive tract] Onset: Episodic Residual codes; unclassified (1 source) Procedure not indicated; Translations: [Procedure and treatment not carried out for other reasons] 08-08-2024 Episodic Spondylosis; intervertebral disc disorders; other back problems (20 sources) Disorder of lumbar disc; Translations: [Other intervertebral disc displacement, lumbar region] Onset: 6 04-28-2020 Chronic Sprains and strains (13 sources) Low back strain; Translations: [Strain of muscle, fascia and tendon of lower back, initial encounter] 08-23-2020 Episodic Substance-related disorders (20 sources) Drug abuse; Translations: [Other psychoactive substance abuse, uncomplicated] Onset: 6 07-18-2021 Chronic Syncope (2 sources) Near syncope; Translations: [Syncope and collapse] 09-21-2023 Episodic Unclassified (2 sources) BACK PAIN, 24 WEEKS 08-14-2022 Comment on above: BACK PAIN, 24 WEEKS Unclassified (1 source) Acute left-sided low back pain with left-sided sciatica 08-14-2022 Unclassified (1 source) Chronic bilateral low back pain, unspecified whether sciatica present; Translations: [Chronic bilateral low back pain, unspecified whether sciatica present] Onset: 4 Unclassified (1 source) Chronic midline low back pain without sciatica; Translations: [Chronic midline low back pain without sciatica] Onset: 5 Unclassified (1 source) Degeneration of intervertebral disc of lumbar region with discogenic back pain; Translations: [Degeneration of intervertebral disc of lumbar region with discogenic back pain] Onset: 5 Unclassified (1 source) Bulging of intervertebral disc between L4 and L5; Translations: [Bulging of intervertebral disc between L4 and L5] Onset: 0 Urinary tract infections (3 sources) Urinary tract infectious disease; Translations: [Urinary tract infection, site not specified] 08-14-2022 Episodic Viral infection (5 sources) Viral disease; Translations: [Viral infection, unspecified] Onset: 3 Episodic Past or Other Problems Problem Classification Problem Date Documented Date Episodic/Chronic Alcohol-related disorders (20 sources) History of alcohol abuse; Translations: [Alcohol abuse, in remission] Onset: 04-18-2012 Resolved: 01-01-2023 07-18-2021 Chronic Bacterial infection; unspecified site (20 sources) Bacteria present; Translations: [Streptococcus, group B, as the cause of diseases classified elsewhere] Onset: 09-23-2013 Resolved: 01-01-2023 11-06-2022 Episodic Calculus of urinary tract (17 sources) Kidney stone; Translations: [Calculus of kidney] Onset: 09-24-2023 03-12-2023 Episodic Cancer of cervix (20 sources) Atypical squamous cells of undetermined significance on cervical Papanicolaou smear; Translations: [Atypical squamous cells of undetermined significance on cytologic smear of cervix (ASC-US)] Onset: 09-26-2019 Resolved: 01-01-2023 09-26-2019 Episodic Deficiency and other anemia (20 sources) Anemia; Translations: [Anemia, unspecified] Onset: 11-06-2022 Resolved: 01-01-2023 11-06-2022 Episodic Diabetes mellitus without complication (20 sources) Increased glucose level; Translations: [Other abnormal glucose] Onset: 11-06-2022 Resolved: 01-01-2023 Episodic Diabetes or abnormal glucose tolerance complicating ; childbirth; or the puerperium (20 sources) Abnormal glucose level; Translations: [Abnormal glucose complicating ] Onset: 11-08-2022 Resolved: 01-01-2023 Episodic Diseases of mouth; excluding dental (2 sources) Diseases of lips; Translations: [Diseases of lips] Onset: 10-13-2024 Episodic E Codes: Cut/pierceb (20 sources) Contact with hypodermic needle, initial encounter; Translations: [Accidents caused by hypodermic needle] Onset: 08-14-2022 Resolved: 01-01-2023 08-14-2022 Episodic Genitourinary symptoms and ill-defined conditions (20 sources) Intermittent urinary incontinence; Translations: [Unspecified urinary incontinence] Onset: 04-27-2020 Resolved: 04-28-2020 04-19-2020 Chronic Hepatitis (20 sources) Viral hepatitis C; Translations: [Unspecified viral hepatitis C without hepatic coma] Onset: 07-23-2017 09-18-2019 Episodic Nausea and vomiting (8 sources) Vomiting; Translations: [Vomiting, unspecified] Onset: 08-04-2024 05-10-2022 Episodic Other circulatory disease (20 sources) Telangiectasia disorder; Translations: [Nevus, non-neoplastic] Onset: 01-27-2010 Resolved: 09-18-2019 09-18-2019 Episodic Other complications of (20 sources) Anemia of ; Translations: [Anemia complicating , third trimester] Onset: 11-08-2022 Resolved: 01-01-2023 01-01-2023 Chronic Other complications of (20 sources) Spotting per vagina in ; Translations: [Spotting complicating , unspecified trimester] Onset: 04-13-2022 Resolved: 01-01-2023 Episodic Other complications of (20 sources) History of delivery of macrosomal ; Translations: [Supervision of with other poor reproductive or obstetric history, unspecified trimester] Onset: 04-13-2022 Resolved: 01-01-2023 Episodic Other complications of (20 sources) Maternal tobacco use in ; Translations: [Smoking (tobacco) complicating , unspecified trimester] Onset: 04-18-2012 Resolved: 10-08-2012 07-18-2021 Episodic Other connective tissue disease (1 source) Trochanteric bursitis, right hip; Translations: [Trochanteric bursitis of both hips] Onset: 12-10-2024 Episodic Other connective tissue disease (1 source) Trochanteric bursitis, left hip; Translations: [Trochanteric bursitis of both hips] Onset: 12-10-2024 Episodic Other inflammatory condition of skin (20 sources) Rosacea; Translations: [Rosacea, unspecified] Onset: 01-27-2010 Resolved: 09-18-2019 09-18-2019 Chronic Other non-epithelial cancer of skin (20 sources) Basal cell carcinoma of scalp; Translations: [Basal cell carcinoma of skin of scalp and neck] Onset: 12-09-2020 12-09-2020 Episodic Other skin disorders (20 sources) Acne; Translations: [Other acne] Onset: 01-27-2010 Resolved: 09-18-2019 09-18-2019 Episodic Residual codes; unclassified (20 sources) FH: Congenital heart disease; Translations: [Family history of other congenital malformations, deformations and chromosomal abnormalities] Onset: 04-18-2012 Resolved: 01-01-2023 07-18-2021 Episodic Residual codes; unclassified (20 sources) Family history of leukemia; Translations: [Family history of leukemia] Onset: 02-04-2015 Resolved: 01-01-2023 02-04-2015 Episodic Residual codes; unclassified (20 sources) Nicotine-filled electronic cigarette user; Translations: [Tobacco use] Onset: 09-07-2015 Resolved: 01-01-2023 07-18-2021 Episodic Residual codes; unclassified (20 sources) Other problems related to lifestyle; Translations: [Other problems related to lifestyle] Onset: 04-13-2022 Resolved: 01-01-2023 Episodic Residual codes; unclassified (1 source) Procedure and treatment not carried out for other reasons; Translations: [Procedure, test, or exam not indicated] Onset: 08-08-2024 Episodic Screening and history of mental health and substance abuse codes (20 sources) H/O: depression; Translations: [Personal history of other mental and behavioral disorders] Onset: 04-18-2012 Resolved: 01-01-2023 07-18-2021 Episodic Spondylosis; intervertebral disc disorders; other back problems (20 sources) Intractable low back pain; Translations: [Intractable low back pain] Onset: 04-27-2020 Resolved: 08-14-2022 04-28-2020 Episodic Superficial injury; contusion (4 sources) Contusion of lower back; Translations: [Contusion of lower back and pelvis, initial encounter] Onset: 11-18-2024 11-19-2024 Episodic Unclassified (12 sources) Onset: 01-31-2023 3 Unclassified (1 source) Patient encounter status 02-10-2025 Results Test Name Value Interpretation Reference Range Facility [facility] 05-05-2025 CNPN Telephone (OBGYWM) AYDENFADUMO Hardy ([id number]) 1995 F Date Time Provider Department 05/05/25 ANGELA HAQ OBEDDIE During your visit today, we recorded the following information about you: Marlon Cortez RN 05/05/2025 4:32 PM Signed Attempted to call patient at 4:00 as agreed upon for nursing intake- PNOB . Multiple attempts at reaching patient with no success. Joshua Delgado RN 05/05/2025 4:37 PM Signed Patient called back apologetic for missing call. She works typically 1pm-1am. If able can you try calling her tomorrow or late morning/early afternoon? Those times work best with her schedule. Joshua Delgado RN Allergies As of Date: 05/05/2025 Noted Allergy Reaction ZYRTEC (CETIRIZINE HCL) 05/08/2006 5 - Intolerance Comments: tremors Date Reviewed: 03/26/2025 Reviewed by: Carmelita Millan MD - Fully Assessed Reason for Visit: Appointment [186] Prescriptions as of 05/05/2025 - lamoTRIgine (LAMICTAL) 25 mg tablet Take 2 tablets by mouth once daily. - prental multivitamin ( VITAMIN) 27 mg iron- 800 mcg tablet Take 1 tablet by mouth once daily. - tiZANidine (ZANAFLEX) 4 mg tablet Take 1/2 - 1 tablet oral Three times a day , PRN as needed for 30 Days - prochlorperazine (COMPAZINE) 10 mg tablet Take 1 tablet by mouth every 8 hours as needed for nausea/vomiting. - SUMAtriptan (IMITREX) 100 mg tablet Take 1 tablet (100 mg) by mouth as needed. TAKE ONE (1) TABLET EVERY 2 HOURS WITH A MAXIMUM DOSE OF 200 MG PER DAY NEEDED FOR HEADACHE - LORazepam (ATIVAN) 0.5 mg Take 0.25 mg by mouth as needed (panic attacj). - acetaminophen (TYLENOL 8 HOUR) 650 mg CR tablet Take 1 tablet by mouth every 8 hours as needed. - cloNIDine HCl (CATAPRES) 0.1 mg tablet Take 1 tablet by mouth once daily as needed (Anxiety). Meds Comments as of 10/05/2024: 10/05 Stated this medication prescribed by psychiatry outside the [facility] Lamotrigine 50mg once day Idania Loco RN Problem List As Of Date 05/05/2025 Noted Resolved Attention deficit disorder [F98.8] 11/27/2007 Telangiectasia [I78.1] 01/27/2010 09/18/2019 Rosacea [L71.9] 01/27/2010 09/18/2019 Other acne [L70.8] 01/27/2010 09/18/2019 Depression [F32.A] 05/26/2011 09/18/2019 Tobacco use in [O99.330] 04/18/2012 10/08/2012 History of depression [Z86.59] 04/18/2012 01/01/2023 History of alcohol abuse [F10.11] 04/18/2012 01/01/2023 Family history of congenital heart defect [Z82.*04/18/2012 01/01/2023 with adoption planned [Z34.90] 04/22/2012 10/08/2012 Chlamydia infection [A74.9] 09/23/2013 09/18/2019 Routine gynecological examination [Z01.419] 12/09/2014 09/18/2019 Family history of leukemia [Z80.6] 02/04/2015 01/01/2023 Vapes nicotine containing substance [Z72.0] 09/07/2015 01/01/2023 Bulging of intervertebral disc between L4 and L*09/07/2015 Migraine without aura and without status migrai*09/07/2015 Uncomplicated asthma [J45.909] 09/07/2015 09/18/2019 Drug abuse (HCC) [F19.10] 09/10/2015 Hepatitis C [B19.20] 2018 ASCUS with positive high risk HPV cervical [R87*09/26/2019 01/01/2023 Intractable low back pain [M54.59] 04/27/2020 Urinary incontinence [R32] 04/27/2020 04/28/2020 Nicotine use disorder, F17.2 [F17.200] 04/27/2020 Mild intermittent asthma without complication [*08/03/2020 Basal cell carcinoma (BCC) of scalp [C44.41] 12/09/2020 HSIL (high grade squamous intraepithelial lesio*01/10/2022 01/01/2023 Spotting in early [O26.859] 04/13/2022 01/01/2023 Engages in vaping [Z72.89] 04/13/2022 01/01/2023 History of macrosomia in infant in prior pregna*04/13/2022 01/01/2023 Patient request for diagnostic testing [Z01.89] 04/13/2022 01/01/2023 Needle stick, hypodermic, accidental, initial e*08/14/2022 01/01/2023 Positive GBS test [B95.1] 11/06/2022 01/01/2023 Elevated glucose [R73.09] 11/06/2022 01/01/2023 Anemia [D64.9] 11/06/2022 01/01/2023 Abnormal glucose complicating [O99.81*11/08/2022 01/01/2023 Anemia during in third trimester [O99*11/08/2022 01/01/2023 Diet controlled gestational diabetes mellitus (*11/08/2022 01/01/2023 High grade squamous intraepithelial lesion (HGS*01/01/2023 Pelvic pain in female [R10.20] 01/29/2025 Irregular menstruation [N92.6] 01/29/2025 Encounter Status:Closed by MARLON CORTEZ on 05/05/25 [facility] MR/BMS.Avani 04-24-2025 MR/BMS. [address], [address] [place] [address] OFFICE VISIT Date of Service: 04/24/25 MR#: [id number] Acct: [id number] Name: FADUMO HENSLEY Rep #: [id number] : 1995 Provider: DIOGENES head Age/Sex: 29/F Location: [facility].BPV Status: Signed Intake Vital Signs 03/27/25 15:13 04/24/25 10:59 Height 5 ft 6 in 5 ft 6 in BP Intake Visit Reasons: Follow up Allergies cetirizine (From [facility]) Allergy (Verified 11/10/24 22:50) difficulty breathing, racing heart [facility] Medical History DDD (degenerative disc disease), lumbar Wears partial dentures Substance abuse History of steroid therapy Hepatitis Vapes nicotine containing substance Gastric reflux History of pain when walking History of edema Hypotension History of Mohs micrographic surgery for skin cancer Encounter for IUD insertion MANUEL III (cervical intraepithelial neoplasia grade III) with severe dysplasia Herniated lumbar intervertebral disc Asthma depression Depression Anxiety Gestational diabetes Skin cancer ADHD Lower back pain Surgical History History of appendectomy Hx of wisdom tooth extraction Family History Other Suicide Social History Smoking Status: Current every day smoker tobacco type: e-cigarettes alcohol intake: never details: Occasionally substance use type: does not use HPI History of Present Illness History provided by: patient Chief complaint: Anxiety HPI: Fadumo Hensley is a 29 year old female patient presenting today for a virtual follow up evaluation. Reports she has been increasingly fatigued during her first trimester. Report she has continued in college and is taking 3 classes this semester. Has been struggling more with procrastinating. Reports she has discontinued use of all of her medication, aside from escitalopram, as we had discussed. Has had a couple of days of heightened anxiety but overall feels it is well managed. Has not been sleeping well due to work schedule and her daughter's sleep schedule. Appetite has been fine overall but does have some food aversions. Admits to some increased feelings of depression. Denies SI/HI. This tele-medicine visit was performed via audio/video technology. Previous similar episode: Yes Age of first onset of symptoms: 11-20 years Review of Systems Constitutional Reports: change in weight and fatigue; Denies: fever(s) or chills Eyes Denies: change in vision or blurry vision Ears, Nose, Mouth, Throat Reports: neck pain; Denies: throat pain Cardiovascular Reports: chest pain (with panic attacks) and dyspnea (with panic attacks); Denies: palpitations Respiratory Reports: dyspnea (with panic attacks); Denies: wheezing Gastrointestinal Reports: diarrhea; Denies: abdominal pain, nausea, vomiting or constipation Genitourinary Denies: dysuria, urinary frequency or urinary urgency Musculoskeletal Reports: back pain and neck pain Integumentary/Breast Denies: rash, pruritus or erythema Neurological Reports: headache(s) Psychiatric Reports: anxiety, change in sleep pattern, memory loss and difficulty concentrating; Denies: panic attacks, hopelessness, loss of interest, irritability, visual hallucinations, auditory hallucinations, suicidal ideation or homicidal ideation Endocrine Reports: fatigue Hematologic/Lymphatic Denies: easy bruising Allergic/Immunologic Denies: wheezing Exam Mental Status Exam - Psych Appearance casually dressed, adequately groomed and no apparent distress Attitude cooperative and calm Activity/Motor Behavior MSE activity/motor behavior finding no adventitious movements and appropriate eye contact Speech regular rate, regular volume and regular prosody Mood euythmic Affect full range Thought Process linear, logical and coherent Thought Content no delusions and no hallucinations Suicidal Ideation none Homicidal Ideation none Attention impaired (per patient self report) Concentration impaired (per patient self report) Sensorium/Orientation awake, alert and oriented x3 Memory/Cognition impaired (per patient self report) Insight good Judgement good Exam Constitutional Common normals: no acute distress, average body habitus and patient oriented x3 Neuro Common normals: patient oriented x3 Speech: speech normal Psych Psychiatry clinicians, please identify where your Mental Status Exam is documented: Mental Status Exam documented in the separate MSE Assessment Plan Assessment Plan (1) ADHD: Qualifiers: Attention defic (more content not included)... Normal [facility] Basic metabolic 2000 panelon 04-21-2025 Anion gap [Moles/Vol] 11 mmol/L 10 - 2 0 mmol/L [facility] Calcium [Mass/Vol] 8.8 mg/dL 8.6 - 10. 3 mg/dL [facility] Chloride [Moles/Vol] 106 mmol/L 98 - 10 7 mmol/L [facility] CO2 [Moles/Vol] 22 mmol/L 21 - 32 mmol/L [facility] Creatinine [Mass/Vol] 0.41 mg/dL Low 0.50 - 1.05 mg/dL [facility] eGFR - PINF [facility] Comment on above: Calculations of jamila mated GFR are performed using the 2020 CKD-EPI Study Refit equation without the race variable for the IDMS-Traceable creatinine methods. https://jasn.asnjournals.org/content/early//ASN.98278 43030 Glucose [Mass/Vol] 91 mg/dL 74 - 99 mg/dL [facility] Interpretation and review of laboratory results Abnormal [facility] Potassium [Moles/Vol] 3.9 mmol/L 3.5 - 5.3 mmol/L [facility] Sodium [Moles/Vol] 135 mmol/L Low 136 - 145 mmol/L [facility] Urea nitrogen [Mass/Vol] 10 mg/dL 6 - 23 mg/dL [facility] Anion gap [Moles/Vol] 11 mmol/L Normal 10-20 [facility] Comment on above: Performed By: #### 2 4321-2 #### GELY DENNISON ([id number]) [facility] ([facility]) [facility] [place] [address] Calcium [Mass/Vol] 8.8 mg/dL Normal 8.6-10.3 [facility] Comment on above: Performed By: #### 2 4321-2 #### GELY DENNISON ([id number]) [facility] ([facility]) [address] [place] [address] Chloride [Moles/Vol] 106 mmol/L Normal 98-107 [facility] Comment on above: Performed By: #### 2 4321-2 #### GELY DENNISON ([id number]) [facility] ([facility]) [address] [place] [address] CO2 [Moles/Vol] 22 mmol/L Normal 21-32 [facility] Comment on above: Performed By: #### 2 4321-2 #### GELY DENNISON ([id number]) [facility] ([facility]) [address] [place] [id number] Creatinine [Mass/Vol] 0.41 mg/dL Low 0.50-1.05 [facility] Comment on above: Performed By: #### 2 4321-2 #### GELY DENNISON ([id number]) [facility] ([facility]) [address] [place] [id number] Glomerular filtration rate >90 Normal >60 [facility] Comment on above: Result Comment: Calc ulations of estimated GFR are performed using the 2020 CKD-EPI Study Refit equation without the race variable for the IDMS-Traceable creatinine methods. https://jasn.asnjournals.org/content//ASN.05158 83890 Performed By: #### 2 4321-2 #### GELY DENNISON ([id number]) [facility] ([facility]) [address] [place] [address]35[address] Glucose [Mass/Vol] 91 mg/dL Normal 74-99 [facility] Comment on above: Performed By: #### 2 4321-2 #### GELY DENNISON ([id number]) [facility] ([facility]) [address] [place] [address] Potassium [Moles/Vol] 3.9 mmol/L Normal 3.5-5.3 [facility] Comment on above: Performed By: #### 2 4321-2 #### GELY DENNISON ([id number]) [facility] ([facility]) [address] [place] [address] Sodium [Moles/Vol] 135 mmol/L Low 136-145 [facility] Comment on above: Performed By: #### 2 4321-2 #### GELY DENNISON ([id number]) [facility] ([facility]) [address] [place] [address] 41398 Urea nitrogen [Mass/Vol] 10 mg/dL Normal 6-23 [facility] Comment on above: Performed By: #### 2 4321-2 #### HONG JUMA ([id number]) [facility] ([facility]) [address] [place] [id number] CBC W Auto Differential pane l (Bld)on 04-21-2025 Basophils (Bld) [#/Vol] 0.02 10*3/uL [facility] Basophils/100 WBC (Bld) 0.2 % 0.0 - 2.0 % [facility] Eosinophils (Bld) [#/Vol] 0.13 10*3/uL [facility] Eosinophils/100 WBC (Bld) 1.2 % 0.0 - 6.0 % [facility] Erythrocyte distribution width (RBC) [Ratio] 11.6 % 11.5 - 14.5 % [facility] Hematocrit (Bld) [Volume fraction] 33.5 % Low 36.0 - 46.0 % [facility] Hemoglobin (Bld) [Mass/Vol] 11.9 g/dL Low 12.0 - 16.0 g/dL [facility] Immature granulocytes (Bld) [#/Vol] 0.05 10*3/uL [facility] Immature granulocytes/100 WBC (Bld) 0.5 % 0.0 - 0.9 % [facility] Comment on above: Immature Granulocyte Count (IG) includes promyelocytes, myelocytes and metamyelocytes but does not include bands. Percent differential counts (%) should be interpreted in the context of the absolute cell counts (cells/UL). Interpretation and review of laboratory results Abnormal [facility] Lymphocytes (Bld) [#/Vol] 2.83 10*3/uL [facility] Lymphocytes/100 WBC (Bld) 27.1 % 13.0 - 44.0 % [facility] MCH (RBC) [Entitic mass] 30.3 pg 26.0 - 34.0 pg [facility] MCHC (RBC) [Mass/Vol] 35.5 g/dL 32.0 - 36.0 g/dL [facility] MCV (RBC) [Entitic vol] 85 fL 80 - 100 fL [facility] Monocytes (Bld) [#/Vol] 0.76 10*3/uL [facility] Monocytes/100 WBC (Bld) 7.3 % 2.0 - 10.0 % [facility] Neutrophils (Bld) [#/Vol] 6.67 10*3/uL [facility] Comment on above: Percent differential counts (%) should be interpreted in the context of the absolute cell counts (cells/uL). Neutrophils/100 WBC (Bld) 63.7 % 40.0 - 80.0 % [facility] Nucleated RBC/100 WBC (Bld) [Ratio] 0.0 % [facility] Platelets (Bld) [#/Vol] 283 10*3/uL [facility] RBC (Bld) [#/Vol] 3.93 10*6/uL Low [facility] WBC (Bld) [#/Vol] 10.5 10*3/uL [facility] Basophils (Bld) [#/Vol] 0.02 x10*3/uL Normal 0.00-0.10 [facility] Comment on above: Performed By: #### 5 7021-8 #### GELY DENNISON ([id number]) [facility] ([facility]) [address] [place] [address] 27080 Basophils/100 WBC (Bld) 0.2 % Normal 0.0-2.0 [facility] Comment on above: Performed By: #### 5 7021-8 #### GELY DENNISON ([id number]) [facility] ([facility]) [address] [place] [address] 82322 Eosinophils (Bld) [#/Vol] 0.13 x10*3/uL Normal 0.00-0.70 [facility] Comment on above: Performed By: #### 5 7021-8 #### GELY DENNISON ([id number]) [facility] ([facility]) [address] [place] [address] 36184 Eosinophils/100 WBC (Bld) 1.2 % Normal 0.0-6.0 [facility] Comment on above: Performed By: #### 5 7021-8 #### GELY DENNISON ([id number]) [facility] ([facility]) [address] [place] [address] 90249 Erythrocyte distribution width (RBC) [Ratio] 11.6 % Normal 11.5-14.5 [facility] Comment on above: Performed By: #### 5 7021-8 #### GELY DENNISON ([id number]) [facility] ([facility]) [address] [place] [address] Hematocrit (Bld) [Volume fraction] 33.5 % Low 36.0-46.0 [facility] Comment on above: Performed By: #### 5 7021-8 #### GELY DENNISON ([id number]) [facility] ([facility]) [address] [place] [address] Hemoglobin (Bld) [Mass/Vol] 11.9 g/dL Low 12.0-16.0 [facility] Comment on above: Performed By: #### 5 7021-8 #### GELY DENNISON ([id number]) [facility] ([facility]) [address] [place] [address] Immature granulocytes (Bld) [#/Vol] 0.05 x10*3/uL Normal 0.00-0.70 [facility] Comment on above: Performed By: #### 5 7021-8 #### GELY DENNISON ([id number]) [facility] ([facility]) [address] [place], [place] [id number] Immature granulocytes/100 WBC (Bld) 0.5 % Normal 0.0-0.9 [facility] Comment on above: Result Comment: Grace ture Granulocyte Count (IG) includes promyelocytes, myelocytes and metamyelocytes but does not include bands. Percent differential counts (%) should be interpreted in the context of the absolute cell counts (cells/UL). Performed By: #### 5 7021-8 #### GELY DENNISON ([id number]) [facility] ([facility]) [address] [place] [address] 50409 Lymphocytes (Bld) [#/Vol] 2.83 x10*3/uL Normal 1.20-4.80 [facility] Comment on above: Performed By: #### 5 7021-8 #### GELY DENNISON ([id number]) [facility] ([facility]) [address] [place] [address] 46563 Lymphocytes/100 WBC (Bld) 27.1 % Normal 13.0-44.0 [facility] Comment on above: Performed By: #### 5 7021-8 #### GELY DENNISON ([id number]) [facility] ([facility]) [address] [place] [address] 03954 MCH (RBC) [Entitic mass] 30.3 pg Normal 26.0-34.0 [facility] Comment on above: Performed By: #### 5 7021-8 #### GELY DENNISON ([id number]) [facility] ([facility]) [address] [place] [address] 45706 MCHC (RBC) [Mass/Vol] 35.5 g/dL Normal 32.0-36.0 [facility] Comment on above: Performed By: #### 5 7021-8 #### GELY DENNISON ([id number]) [facility] ([facility]) [address] [place] [address] 86835 MCV (RBC) [Entitic vol] 85 fL Normal 80-100 [facility] Comment on above: Performed By: #### 5 7021-8 #### GELY DENNISON ([id number]) [facility] ([facility]) [address] [place] [address] 37034 Monocytes (Bld) [#/Vol] 0.76 x10*3/uL Normal 0.10-1.00 [facility] Comment on above: Performed By: #### 5 7021-8 #### GELY DENNISON ([id number]) [facility] ([facility]) [address] [place] [address] 80796 Monocytes/100 WBC (Bld) 7.3 % Normal 2.0-10.0 [facility] Comment on above: Performed By: #### 5 7021-8 ###Simona DENNISON ([id number]) [facility] ([facility]) [address] [place] [address] 78495 Neutrophils (Bld) [#/Vol] 6.67 x10*3/uL Normal 1.20-7.70 [facility] Comment on above: Result Comment: Perc ent differential counts (%) should be interpreted in the context of the absolute cell counts (cells/uL). Performed By: #### 5 7021-8 #### GELY DENNISON ([id number]) [facility] ([facility]) [address] [place] [address] 46882 Neutrophils/100 WBC (Bld) 63.7 % Normal 40.0-80.0 [facility] Comment on above: Performed By: #### 5 7021-8 #### GELY DENNISON ([id number]) [facility] ([facility]) [address] [place] [address] 08383 Nucleated RBC/100 WBC (Bld) [Ratio] 0.0 /100 WBCs Normal 0.0-0.0 [facility] Comment on above: Performed By: #### 5 7021-8 #### GELY DENNISON ([id number]) [facility] ([facility]) [address] [place] [address] 77501 Platelets (Bld) [#/Vol] 283 x10*3/uL Normal 150-450 [facility] Comment on above: Performed By: #### 5 7021-8 #### GELY DENNISON ([id number]) [facility] ([facility]) [address] [place] [address] 64943 RBC (Bld) [#/Vol] 3.93 x10*6/uL Low 4.00-5.20 [facility] Comment on above: Performed By: #### 5 7021-8 #### GELY DENNISON ([id number]) [facility] ([facility]) [address] [place] [address] 04534 WBC (Bld) [#/Vol] 10.5 x10*3/uL Normal 4.4-11.3 [facility] Comment on above: Performed By: #### 5 7021-8 #### GELY DENNISON ([id number]) [facility] ([facility]) [address] [place] [address] ECG 12-LEADon 04-21-2025 ECG 12-LEAD Ventricular Rate 89 Atrial Rate 89 P-R Interval 124 QRS Duration 120 Q-T Interval 388 QTC Calculation(Bazett) 472 P Happy Jack 51 R Happy Jack 57 T Happy Jack 33 QRS Count 15 Q Onset 220 P Onset 158 P Offset 205 T Offset 414 QTC Fredericia 442 Diagnosis Normal sinus rhythm Right bundle branch block Abnormal ECG When compared with ECG of 20-NOV-2023 19:22, No significant change was found See ED provider note for full interpretation and clinical correlation Confirmed by Wilver Mora ([id number]) on 04/25/2025 2:21:09 PM Normal [facility] TSH Qnon 04-21-2025 Interpretation and review of laboratory results Abnormal [facility] TSH testing is performed using different testing methodology at [facility] than at other system [facility]. Direct result comparisons should only be made within the same method. [facility] Thyroid Stimulating Hormoneo n 04-21-2025 TSH Qn 0.17 m[IU]/L Low [facility] Thyrotropinon 04-21-2025 TSH Qn 0.17 m[IU]/L Low 0.44-3.98 [facility] Comment on above: Order Comment: TSH t esting is performed using different testing methodology at [facility] than at other system [facility]. Direct result comparisons should only be made within the same method. Performed By: #### 3 016-3 ####GELY DENNISON ([id number])[facility] ([facility])[address] [place] [address] Urinalysis complete W Reflex Culture panel (U)on 04-21-2025 Appearance (U) Clear Clear [facility] Bilirubin (U) [Mass/Vol] Negative NEGATIVE mg/dL [facility] Color (U) Light-Yellow Light-Yello w, Yellow, Dark-Yellow [facility] Glucose Auto test strip (U) [Mass/Vol] Normal Normal mg/dL [facility] Interpretation and review of laboratory results Normal [facility] Ketones (U) [Mass/Vol] Negative NEGAT SHAUNA mg/dL [facility] Leukocyte esterase Auto test strip Ql (U) Negative NEGATIVE [facility] Nitrite Auto test strip Ql (U) Negative NEGATIVE [facility] pH (U) 6.5 [pH] 5.0, 5.5, 6.0, 6.5, 7.0, 7.5, 8.0 [facility] Protein (U) [Mass/Vol] Negative NEGAT SHAUNA, 10 (TRACE), 20 (TRACE) mg/dL [facility] RBC (U) [#/Vol] Negative NEGATIVE mg/dL [facility] Specific gravity (U) [Rel density] 1.016 1.005 - 1.035 [facility] Urobilinogen (U) [Mass/Vol] Normal Normal mg/dL [facility] Appearance (U) Clear Normal Clear [facility] Comment on above: Performed By: #### 5 8077-9 ####GELY DENNISON ([id number])[facility] ([facility])[address] [place] [address] Bilirubin (U) [Mass/Vol] Negative Normal NEGATIVE [facility] Comment on above: Performed By: #### 5 8077-9 ####GELY DENNISON ([id number])[facility] ([facility])[address] [place] [address] 99251 Color (U) Light-Yellow Normal Light-Yello w, Yellow, Dark-Yellow [facility] Comment on above: Performed By: #### 5 8077-9 ####GELY DENNISON ([id number])[facility] ([facility])[address] [place] [address] 84821 Glucose Auto test strip (U) [Mass/Vol] Normal Normal Normal [facility] Comment on above: Performed By: #### 5 8077-9 ####GELY DENNISON ([id number])[facility] ([facility])[address] [place] [address] 53381 Ketones (U) [Mass/Vol] Negative Normal NEGATIVE [facility] Comment on above: Performed By: #### 5 8077-9 ####GELY DENNISON ([id number])[facility] ([facility])[address] [place] [address] 51547 Leukocyte esterase Auto test strip Ql (U) Negative Normal NEGATIVE [facility] Comment on above: Performed By: #### 5 8077-9 ####GELY DENNISON ([id number])[facility] ([facility])[address] [place] [address] 25602 Nitrite Auto test strip Ql (U) Negative Normal NEGATIVE [facility] Comment on above: Performed By: #### 5 8077-9 ####GELY DENNISON ([id number])[facility] ([facility])[address] [place] [address] pH (U) 6.5 [pH] Normal 5.0, 5.5, 6.0, 6.5, 7.0, 7.5, 8.0 [facility] Comment on above: Performed By: #### 5 8077-9 ####GELY DENNISON ([id number])[facility] ([facility])[address] [place] [address] 24990 Protein (U) [Mass/Vol] Negative Normal NEGAT SHAUNA, 10 (TRACE), 20 (TRACE) [facility] Comment on above: Performed By: #### 5 8077-9 ####GELY DENNISON ([id number])[facility] ([facility])[address] [place] [address] 60832 RBC (U) [#/Vol] Negative Normal NEGATIVE [facility] Comment on above: Performed By: #### 5 8077-9 ####GELY DENNISON ([id number])[facility] ([facility])[address] [place] [address] 89660 Specific gravity (U) [Rel density] 1.016 Normal 1.005-1.035 [facility] Comment on above: Performed By: #### 5 8077-9 ####GELY DENNISON ([id number])[facility] ([facility])[address] [place] [address] 74710 Urobilinogen (U) [Mass/Vol] Normal Normal Normal [facility] Comment on above: Performed By: #### 5 8077-9 ####HONG JUMA ([id number])[facility] ([facility])[address] [place] [address] MR/BMS.BPon 03-27-2025 MR/BMS.BP [facility] [address] [place] [address], [address] [place] [address] OFFICE VISIT Date of Service: 03/27/25 MR#: [id number] Acct: [id number] Name: FADUMO HENSLEY Rep #: [id number] : 1995 Provider: DIOGENES head Age/Sex: 29/F Location: [facility] Status: Signed Intake Vital Signs 01/02/25 10:06 03/27/25 15:13 Height 5 ft 6 in 5 ft 6 in BP Intake Visit Reasons: Follow up Allergies cetirizine (From [facility]) Allergy (Verified 11/10/24 22:50) difficulty breathing, racing heart [facility] Medical History DDD (degenerative disc disease), lumbar Wears partial dentures Substance abuse History of steroid therapy Hepatitis Vapes nicotine containing substance Gastric reflux History of pain when walking History of edema Hypotension History of Mohs micrographic surgery for skin cancer Encounter for IUD insertion MANUEL III (cervical intraepithelial neoplasia grade III) with severe dysplasia Herniated lumbar intervertebral disc Asthma depression Depression Anxiety Gestational diabetes Skin cancer ADHD Lower back pain Surgical History History of appendectomy Hx of wisdom tooth extraction Family History Other Suicide Social History Smoking Status: Current every day smoker tobacco type: e-cigarettes alcohol intake: never details: Occasionally substance use type: does not use HPI History of Present Illness History provided by: patient Chief complaint: Anxiety HPI: Fadumo Hensley is a 29 year old female patient presenting today for a virtual follow up evaluation. Reports she is currently , 8 weeks along. Has stopped taking lamotrigine for 4-5 days. Has not been taking lisdexamfetamine due to . Has been taking lorazepam 0.5 tablets daily. Was taking the clonidine BID and has reduced to 1x daily Denies SI/HI. Admits to some feelings of depression but feels it is related to the unexpected . Reports her relationship has had big improvements. Does not have anxiety at baseline but does have feelings of mild anxiety daily. Does feel anxiety is overall well managed. Sleep has been good. Is getting about 7 hours per night. Appetite has been good. This tele-medicine visit was performed via audio/video technology. Previous similar episode: Yes Age of first onset of symptoms: 11-20 years Review of Systems Constitutional Reports: change in weight and fatigue; Denies: fever(s) or chills Eyes Denies: change in vision or blurry vision Ears, Nose, Mouth, Throat Reports: neck pain; Denies: throat pain Cardiovascular Reports: chest pain (with panic attacks) and dyspnea (with panic attacks); Denies: palpitations Respiratory Reports: dyspnea (with panic attacks); Denies: wheezing Gastrointestinal Reports: diarrhea; Denies: abdominal pain, nausea, vomiting or constipation Genitourinary Denies: dysuria, urinary frequency or urinary urgency Musculoskeletal Reports: back pain and neck pain Integumentary/Breast Denies: rash, pruritus or erythema Neurological Reports: headache(s) Psychiatric Reports: anxiety, change in sleep pattern, irritability, memory loss and difficulty concentrating; Denies: panic attacks, hopelessness, loss of interest, visual hallucinations, auditory hallucinations, suicidal ideation or homicidal ideation Endocrine Reports: fatigue Hematologic/Lymphatic Denies: easy bruising Allergic/Immunologic Denies: wheezing Exam Mental Status Exam - Psych Appearance casually dressed, adequately groomed and no apparent distress Attitude cooperative and calm Activity/Motor Behavior MSE activity/motor behavior finding no adventitious movements and appropriate eye contact Speech regular rate, regular volume and regular prosody Mood euythmic Affect full range Thought Process linear, logical and coherent Thought Content no delusions and no hallucinations Suicidal Ideation none Homicidal Ideation none Attention impaired (per patient self report) Concentration impaired (per patient self report) Sensorium/Orientation awake, alert and oriented x3 Memory/Cognition impaired (per patient self report) Insight good Judgement good Exam Constitutional Common normals: no acute distress, average body habitus and patient oriented x3 Neuro Common normals: patient oriented x3 Speech: speech normal Psych Psychiatry clinicians, please identify where your Mental Status Exam is documented: Mental Status Exam documented in the separate MSE Assessment Plan Assessment Plan (1) ADHD: Qualifiers: Attention deficit-hyperactivity disorder (more content not included)... Normal [facility] CNOVon 03-26-2025 CNOV Office Visit (OBGYWM ) FADUMO HENSLEY ([id number]) 1995 F Date Time Provider Department 03/26/25 3:10 PM CARMELITA MILLAN OBGYWM During your visit today, we recorded the following information about you: Blood pressure Weight 108/64 83.5 kg Aliyah Khoury, RN 03/26/2025 3:44 PM Addendum Thank you for your question about termination. If you believe you have a serious medical condition which makes in-hospital medically necessary, please contact your OBGYN or PCP office to discuss this further. You may also visit [email or web address] or contact the [facility] referral line at [email or web address] and to find the closest provider based on your estimated length. [phone] [facility], [place] [address] [email or web address] [facility]- Online scheduling available [email or web address] [facility] family planning call [phone] or email Carmelita Millan MD 03/30/2025 1:27 PM Signed Fadumo Hardy Ayden is a 29 year old female who presents for problem visit for discussion of . HPI: 29 YOF w/ Patient's last menstrual period was 01/27/2025 (exact date). Presents for f/u to discuss options and anxiety/mood. Has been out of lamictal for a couple of days and is out of refills and feeling very indecisive and a lot of anxiety. Unplanned . Has mixed feelings on termination vs continuing . Family is supportive. OB History Gravida3 Para2 Term2 Preterm0 AB0 Living2 SAB0 IAB0 Ectopic0 Multiple0 Live Births2 Communications Clerk History LMP: 01/27/2025 (Exact Date), Age at Menarche: Age at First : Age at Menopause: Communications Clerk History Comments: Sexual Activity: Yes; Male Contraception: No contraception data on record PAST MEDICAL HISTORY Diagnosis Date Appendicitis ASCUS with positive high risk HPV cervical 09/26/2019 Asthma (HCC) 11/29/2011 ATTN DEFICIT NONHYPERACT 11/27/2007 Atypical glandular cells of undetermined significance (ZENA) on cervical Pap smear 05/19/2024 Bulging of intervertebral disc between L4 and L5 and L5 and S1 09/07/2015 Chest pain 04/29/2010 Chlamydia infection 09/23/2013 Depression 05/26/2011 Depression complicating , antepartum ([facility]) 08/02/2012 Diet controlled gestational diabetes mellitus (GDM) in second trimester ([facility]) 11/08/2022 11/08/22- 2 levels out of 3 elevated. Supplies and referrals ordered. Sulma Bartholomew, OCTAVIO.CNM Generalized anxiety disorder GERD (gastroesophageal reflux disease) Hepatitis C 2017 2018 cured after medication course. High grade squamous intraepithelial cervical dysplasia History of suicide attempt 2014 cutting wrist Juvenile osteochondrosis of lower extremity, excluding foot 2005, resolved Kidney stones Migraine headache 05/26/2011 other Sever's Disease, 2006, resolved Other acne 01/27/2010 Pain in joint, site unspecified AC joint tear, 2006 Patient requested diagnostic testing 04/18/2012 04/18/2012 Patient desires early screening in with sequential testing. Poor support system complicating (HCC) 04/18/2012 04/18/2012The father of the baby is aware that she is , but does not wish to be involved. Patient states her parents are very supportive. Patient is tearful for some of this visit today due to the father of the baby. She states he has put pressure on her in the past to have an , but she does not wish to do that. Patient was given a brochure on the care center and WIC. depression PTSD (post-traumatic stress disorder) Rosacea 01/27/2010 Rubella non-immune status 04/22/2012 Skin cancer Teen 04/22/2012 July 04, 2012 Flu vaccine given Telangiectasia 01/27/2010 Tobacco use disorder PAST SURGICAL HISTORY Procedure Laterality Date APPENDECTOMY CERVIX UTERI CONIZA LP ELCTRO EXCI 05/11/2023 at [facility]Dr. Millan PAST SURGICAL HISTORY OF 01/01/2010 Removal of 4 Mereta Teeth PAST SURGICAL HISTORY OF basal cell carcinoma removed from scalp FAMILY HISTORY Problem Relation Age of Onset Skin Cancer Mother Hypertension Mother Heart Failure Mother Liver Cancer Mother 66 Heart Father TRIPLE [place]PASS SURGERY Hypertension Father Diabetes Father Diabetes Sister No Known Problems Sister No Known Problems Sister No Known Problems Brother No Known Problems Brother No Known Problems Brother Heart Maternal Grandmother from heart problems Heart Maternal Grandfather from heart problems Cancer Maternal Grandfather lung Hypertension Maternal Grandfather No Known Problems Daughter SOCIAL HISTORY[1] Current Ou (more content not included)... [facility] (OBGYWM) FADUMO HENSLEY ([id number]) 1995 F Date Time Provider Department 03/11/25 ALIYAH ASKEW During your visit today, we recorded the following information about you: Tri Alonzo RN 03/11/2025 3:17 PM Signed Pt saw [facility] 02/27/25 for + . Pelvic US completed 03/06/25-see report LMP 01/27/25 6w1d Pt calls stating she has a lot of health issues and would like to discuss with provider whether this + is something that she is able to continue. Appt scheduled with [place] 8/26 to discuss. BRIT Celis Tara, RN 04/21/2025 3:20 PM Signed Pt had US 03/06/25. Last seen in office by RR 03/26/25 for discussion of termination vs continuing . Egyou today 12w. Pt calls today stating she would like to schedule 12 week appt as she has decided to move forth with her . NOB appt scheduling out first week of May. Please advise on where you'd like Pt to be scheduled. BRIT Celis Rebecca L, MD 04/21/2025 5:21 PM Signed Get her in for Nuchal. Schedule for NOB w/ RM. Since doesn't need US see if ok to do in a 30 min slot. CP has 45 min on 04/22 afternoon, if no one in labor maybe we can add her in there. MD Monty Mccarthy Rebecca L, MD 04/21/2025 5:21 PM Signed Addended by: CARMELITA MILLAN on: 04/21/2025 05:21 PM Modules accepted: Joshua Chicas RN 04/22/2025 10:24 AM Signed See below notes. Can we put in 30 minute slot on 05/08 at 1:30 for NOB? She is 12w1d today and will have u/s this week or next week already. You are the first with a 30 minute opening. BRIT Laguna Renee, APRN.ANISHA 04/22/2025 11:17 AM Signed Yes, that works. Angela Haq APRN.Patricia Garcia RN 04/22/2025 11:30 AM Signed Nuchal ultrasound schedule for tomorrow at 11. New OB scheduled for 05/08 at 130. Left message to call office. Please notify patient of above appointment dates/times. BRIT Thompson Lindsey, RN 04/22/2025 4:11 PM Signed Patient notified and voiced understanding of upcoming appointment times/dates. Patricia Lakhani RN Allergies As of Date: 03/11/2025 Noted Allergy Reaction ZYRTEC (CETIRIZINE HCL) 05/08/2006 5 - Intolerance Comments: tremors Date Reviewed: 02/27/2025 Reviewed by: Candice Orozco APRN.QUANTITATIVE ANALYST MARKETING - Fully Assessed Reason for Visit: [587] Primary Visit Diagnosis:Encounter for screening of mother (HCC) [Z36.9] Other Visit Diagnosis:Supervision of high risk in second trimester (HCC) [O09.92] Order(s):OBSTETRIC ULTRASOUND [facility] [[id number]] Order #: [id number]: 1 FUTURE Prescriptions as of 04/22/2025 - lamoTRIgine (LAMICTAL) 25 mg tablet Take 2 tablets by mouth once daily. - prental multivitamin ( VITAMIN) 27 mg iron- 800 mcg tablet Take 1 tablet by mouth once daily. - tiZANidine (ZANAFLEX) 4 mg tablet Take 1/2 - 1 tablet oral Three times a day , PRN as needed for 30 Days - prochlorperazine (COMPAZINE) 10 mg tablet Take 1 tablet by mouth every 8 hours as needed for nausea/vomiting. - SUMAtriptan (IMITREX) 100 mg tablet Take 1 tablet (100 mg) by mouth as needed. TAKE ONE (1) TABLET EVERY 2 HOURS WITH A MAXIMUM DOSE OF 200 MG PER DAY NEEDED FOR HEADACHE - LORazepam (ATIVAN) 0.5 mg Take 0.25 mg by mouth as needed (panic attacj). - acetaminophen (TYLENOL 8 HOUR) 650 mg CR tablet Take 1 tablet by mouth every 8 hours as needed. - cloNIDine HCl (CATAPRES) 0.1 mg tablet Take 1 tablet by mouth once daily as needed (Anxiety). Meds Comments as of 10/05/2024: 10/05 Stated this medication prescribed by psychiatry outside the [facility] Lamotrigine 50mg once day Idania Loco RN Problem List As Of Date 03/11/2025 Noted Resolved Attention deficit disorder [F98.8] 11/27/2007 Telangiectasia [I78.1] 01/27/2010 09/18/2019 Rosacea [L71.9] 01/27/2010 09/18/2019 Other acne [L70.8] 01/27/2010 09/18/2019 Depression [F32.A] 05/26/2011 09/18/2019 Tobacco use in [O99.330] 04/18/2012 10/08/2012 History of depression [Z86.59] 04/18/2012 01/01/2023 History of alcohol abuse [F10.11] 04/18/2012 01/01/2023 Family history of congenital heart defect [Z82.*04/18/2012 01/01/2023 with adoption planned [Z34.90] 04/22/2012 10/08/2012 Chlamydia infection [A74.9] 09/23/2013 09/18/2019 Routine gynecological examination [Z01.419] 12/09/2014 09/18/2019 Family history of leukemia [Z80.6] 02/04/2015 01/01/2023 Vapes nicotine containing substance [Z72.0] 09/07/2015 01/01/2023 Bulging of intervertebral disc between L4 and L*09/07/2015 Migraine without aura and without status migrai*09/07/2015 Uncomplicated asthma [J45.909] 09/07/2015 09/18/2019 Drug abuse (HCC) [F19.10] 09/10/2015 Hepatitis C [B19.20] 2018 ASCUS with positive high risk HPV cervical [R87*09/26/2019 01/01/2023 Intractable low back pain [M54.59] 04/27/2020 Urinar (more content not included)... Normal [facility] US Pelvison 03-09-2025 Indication Positive test Impression LMP 01/27/2025 with EGA 5 weeks 3 days by dates. Normal appearing anteverted uterus measuring 90 mm x 56 mm x 39 mm. The central endometrial complex contains a gestational sac with a yolk sac. No pole is identified. No cardiac activity is visualized. Left ovary contains corpus luteum cyst. Normal appearing right ovary with follicular change. No adnexal masses identified. There is no free fluid visualized in the peritoneal cavity. Recommendations Intrauterine gestational sac which indicates presence of intrauterine . Follow up as clinically indicated. Maternal Assessment Height 168 cm Height (ft) 5 ft Height (in) 6 in Weight 83 kg Weight (lb) 182 lb BMI 29.38 kg/m Method Transabdominal, transvaginal, 3D ultrasound examination, Color Doppler examination Giraldo . Number of embryos: 1 Dating LMP on: 01/27/2025 GA by LMP 5 w + 3 d ROSS by LMP: 11/03/2025 Assigned: based on the LMP, selected on 03/06/2025 Assigned GA 5 w + 3 d Assigned ROSS: 11/03/2025 Assessment Gestational sac: visualized GS 8.8 mm -/- Dinorah Location: intrauterine Yolk sac: visualized YS 0.9 mm Embryo: uncertain Cardiac activity: uncertain Other: GS: 5 w 5 d Uterus Uterus: Visualized Uterus position: anteverted Myometrium: normal Cervix details: normal Uterus length 90 mm Uterus width 56 mm Uterus height 39 mm Uterus Vol 102.3 cm Cul de Sac Visualized. free fluid visualized Largest pool 14.7 mm x 7.2 mm x 29.6 mm. Vol 1.640 ml Right Ovary Rt ovary: Visualized Rt ovary morphology: premenopausal normal follicular Rt ovary D1 24 mm Rt ovary D2 15 mm Rt ovary D3 14 mm Rt ovary Vol 2.6 cm Left Ovary Lt ovary: Visualized Lt ovary D1 45 mm Lt ovary D2 34 mm Lt ovary D3 24 mm Lt ovary Vol 18.7 cm Lt ovarian corpus luteum: hemorrhagic Lt ovarian corpus luteum D1 3.0 mm Lt ovarian corpus luteum D2 19.0 mm Lt ovarian corpus luteum D3 14.0 mm Performed By: Mkai Ramos RDMS Read By: Day Peña M.D. MATERNAL MEDICINE [facility] US Pelvison 03-06-2025 Radiology Study observation (narrative) [facility] B-HCG SerPl-aCncon 5 HCG.beta subunit Qn 2679.0 m[IU]/mL High <5.0 [facility] Comment on above: Order Comment: Speci men Type: BLOOD SPECIMENOrdering Facility: [facility] Address: [address] [place] [address] Result Comment: GROVER TITATIVE HCG NORMAL RANGES Weeks of Gestation (Weeks Since LMP) 3 Weeks (5.8-71.2 mIU/mL) 4 Weeks (9.5-750 mIU/mL) 5 Weeks (217-7138 mIU/mL) 6 Weeks (158-82501 mIU/mL) 7 Weeks (3697-340629 mIU/mL) 8 Weeks (10617-950676 mIU/mL) 9 Weeks (13054-936577 mIU/mL) 10 Weeks (87505-212440 mIU/mL) 12 Weeks (12415-146877 mIU/mL) Referenced to 4th IS of [facility] Performed By: #### 2 1198-7 ####[facility] LABIA [id number] [place] [address] [place] B-HCG SerPl-aCncon 5 HCG.beta subunit Qn 315.7 m[IU]/mL High <5.0 C [facility] Comment on above: Order Comment: Speci men Type: BLOOD SPECIMENOrdering Facility: [facility] Address: [address] [place] [address] Result Comment: GROVER TITATIVE HCG NORMAL RANGES Weeks of Gestation (Weeks Since LMP) 3 Weeks (5.8-71.2 mIU/mL) 4 Weeks (9.5-750 mIU/mL) 5 Weeks (217-7138 mIU/mL) 6 Weeks (158-76983 mIU/mL) 7 Weeks (3697-717557 mIU/mL) 8 Weeks (55032-299339 mIU/mL) 9 Weeks (36968-272844 mIU/mL) 10 Weeks (54665-750594 mIU/mL) 12 Weeks (36369-319641 mIU/mL) Referenced to 4th IS of [facility] Performed By: #### 2 1198-7 ####[facility] LABCLIA [id number] [address] OF [place] CNOVon 02-27-2025 CNOV Office Visit (OBFRANSISCOWCorie ) FADUMO HENSLEY ([id number]) 1995 F Date Time Provider Department 02/27/25 3:15 PM CANDICE OROZCO During your visit today, we recorded the following information about you: Blood pressure Weight 126/88 82.6 kg Candice Orozco APRN.QUANTITATIVE ANALYST MARKETING 02/27/2025 3:48 PM Signed Fadumo Hensley is a 29 year old female who presents for problem visit positive test at home on 01/24/2025. HPI: Fadumo is here for confirmation of early . Had positive UPT on 01/24. Saw our office on 01/29 for pelvic pain and was prescribed Doxycyline and was advised to restart NuvaRing. Did not mention + UPT on this day per notes. Had light menses on 01/27/25. Was using NuvaRing for control, but states that she left it out for too long. unplanned. Unsure about continuing the . OB History Gravida2 Para2 Term2 Preterm0 AB0 Living2 SAB0 IAB0 Ectopic0 Multiple0 Live Births2 Communications Clerk History LMP: 01/27/2025 (Exact Date), Having periods Age at Menarche: Age at First : Age at Menopause: Communications Clerk History Comments: Sexual Activity: Yes; Male Contraception: No contraception data on record PAST MEDICAL HISTORY Diagnosis Date Appendicitis ASCUS with positive high risk HPV cervical 09/26/2019 Asthma (HCC) 11/29/2011 ATTN DEFICIT NONHYPERACT 11/27/2007 Atypical glandular cells of undetermined significance (ZENA) on cervical Pap smear 05/19/2024 Bulging of intervertebral disc between L4 and L5 and L5 and S1 09/07/2015 Chest pain 04/29/2010 Chlamydia infection 09/23/2013 Depression 05/26/2011 Depression complicating , antepartum (HCC) 08/02/2012 Diet controlled gestational diabetes mellitus (GDM) in second trimester ([facility]) 11/08/2022 11/08/22- 2 levels out of 3 elevated. Supplies and referrals ordered. Sulma Bartholomew APRN.CNM Generalized anxiety disorder GERD (gastroesophageal reflux disease) Hepatitis C 2017 2018 cured after medication course. High grade squamous intraepithelial cervical dysplasia History of suicide attempt 2015 cutting wrist Juvenile osteochondrosis of lower extremity, excluding foot 2004, resolved Kidney stones Migraine headache 05/26/2011 other Sever's Disease, 2006, resolved Other acne 01/27/2010 Pain in joint, site unspecified AC joint tear, 2005 Patient requested diagnostic testing 04/18/2012 04/18/2012 Patient desires early screening in with sequential testing. Poor support system complicating (HCC) 04/18/2012 04/18/2012The father of the baby is aware that she is , but does not wish to be involved. Patient states her parents are very supportive. Patient is tearful for some of this visit today due to the father of the baby. She states he has put pressure on her in the past to have an , but she does not wish to do that. Patient was given a brochure on the care center and WIC. depression PTSD (post-traumatic stress disorder) Rosacea 01/27/2010 Rubella non-immune status 04/22/2012 Skin cancer Teen 04/22/2012 July 04, 2012 Flu vaccine given Telangiectasia 01/27/2010 Tobacco use disorder PAST SURGICAL HISTORY Procedure Laterality Date APPENDECTOMY CERVIX UTERI CONIZA LP ELCTRO EXCI 05/11/2023 at [facility]-Dr. Millan PAST SURGICAL HISTORY OF 01/01/2010 Removal of 4 Mereta Teeth PAST SURGICAL HISTORY OF basal cell carcinoma removed from scalp FAMILY HISTORY Problem Relation Age of Onset Skin Cancer Mother Hypertension Mother Heart Failure Mother Liver Cancer Mother 66 Heart Father TRIPLE BYPASS SURGERY Hypertension Father Diabetes Father Diabetes Sister No Known Problems Sister No Known Problems Sister No Known Problems Brother No Known Problems Brother No Known Problems Brother Heart Maternal Grandmother from heart problems Heart Maternal Grandfather from heart problems Cancer Maternal Grandfather lung Hypertension Maternal Grandfather No Known Problems Daughter Social History Tobacco Use Smoking status: Former Current packs/day: 1.00 Average packs/day: 1 pack/day for 9.0 years (9.0 ttl pk-yrs) Types: Cigarettes Smokeless tobacco: Current Tobacco comments: Vapes Vaping Use Vaping status: current everyday user Substances: Nicotine Devices: Pre-filled or refillable cartridge Substance Use Topics Alcohol use: Not Currently Drug use: Not Currently Types: Heroin, Marijuana Comment: Patient states I have used multiple drugs in the past Current Outpatient Medications Medication Sig lamoTRIgine (LAMICTAL) 25 mg tablet Take 2 tablets by mouth once daily. naproxen (NAPROSYN) 375 mg tablet Take 1 tablet by mouth three times a day as needed (pain). tiZANidine (ZANAFLEX) 4 mg tablet Take 1/2 - 1 tablet oral Three times a day , PRN as needed for 30 Days (more content not included)... [facility] AYDENFADUMO Hardy ([id number]) 1995 F Date Time Provider Department 02/27/25 CANDICE OROZCO OBGYWM During your visit today, we recorded the following information about you: Joshua Delgado RN 02/27/2025 4:03 PM Signed Patient called in because she realized she forgot to get blood drawn after visit today. She is coming back in for that. She said though she was to get it repeated on Sunday too. I don't see a order for the 2nd one though. Does she need that? If so, order pending. BRIT Laguna Emily, APRN.QUANTITATIVE ANALYST MARKETING 02/27/2025 4:48 PM Signed Yes, plan for repeat Sunday. Filed. Thank you, Candice rOozco APRN.Joshua Garcia RN 02/27/2025 4:50 PM Signed Patient notified. Joshua Delgado RN Allergies As of Date: 02/27/2025 Noted Allergy Reaction ZYRTEC (CETIRIZINE HCL) 05/08/2006 5 - Intolerance Comments: tremors Date Reviewed: 02/27/2025 Reviewed by: Candice Orozco APRN.QUANTITATIVE ANALYST MARKETING - Fully Assessed Reason for Visit: Orders [681] Primary Visit Diagnosis:Encounter for test, result positive ([facility]) [Z32.01] Order(s):HCG QUANTITATIVE [SQHCGQT] Order #: [id number] FUTURE Prescriptions as of 02/27/2025 - prental multivitamin ( VITAMIN) 27 mg iron- 800 mcg tablet Take 1 tablet by mouth once daily. - lamoTRIgine (LAMICTAL) 25 mg tablet Take 2 tablets by mouth once daily. - tiZANidine (ZANAFLEX) 4 mg tablet Take 1/2 - 1 tablet oral Three times a day , PRN as needed for 30 Days - prochlorperazine (COMPAZINE) 10 mg tablet Take 1 tablet by mouth every 8 hours as needed for nausea/vomiting. - SUMAtriptan (IMITREX) 100 mg tablet Take 1 tablet (100 mg) by mouth as needed. TAKE ONE (1) TABLET EVERY 2 HOURS WITH A MAXIMUM DOSE OF 200 MG PER DAY NEEDED FOR HEADACHE - LORazepam (ATIVAN) 0.5 mg Take 0.25 mg by mouth as needed (panic attacj). - fluticasone (FLONASE) 50 mcg/actuation nasal spray Use 2 Sprays in each nostril once daily. Rinse mouth after use. - acetaminophen (TYLENOL 8 HOUR) 650 mg CR tablet Take 1 tablet by mouth every 8 hours as needed. - lisdexamfetamine (VYVANSE) 40 mg capsule Take 1 capsule by mouth once daily for 30 days. - cloNIDine HCl (CATAPRES) 0.1 mg tablet Take 1 tablet by mouth once daily as needed (Anxiety). Meds Comments as of 10/05/2024: 10/05 Stated this medication prescribed by psychiatry outside the [facility] Lamotrigine 50mg once day Idania Loco RN Problem List As Of Date 02/27/2025 Noted Resolved Attention deficit disorder [F98.8] 11/27/2007 Telangiectasia [I78.1] 01/27/2010 09/18/2019 Rosacea [L71.9] 01/27/2010 09/18/2019 Other acne [L70.8] 01/27/2010 09/18/2019 Depression [F32.A] 05/26/2011 09/18/2019 Tobacco use in [O99.330] 04/18/2012 10/08/2012 History of depression [Z86.59] 04/18/2012 01/01/2023 History of alcohol abuse [F10.11] 04/18/2012 01/01/2023 Family history of congenital heart defect [Z82.*04/18/2012 01/01/2023 with adoption planned [Z34.90] 04/22/2012 10/08/2012 Chlamydia infection [A74.9] 09/23/2013 09/18/2019 Routine gynecological examination [Z01.419] 12/09/2014 09/18/2019 Family history of leukemia [Z80.6] 02/04/2015 01/01/2023 Vapes nicotine containing substance [Z72.0] 09/07/2015 01/01/2023 Bulging of intervertebral disc between L4 and L*09/07/2015 Migraine without aura and without status migrai*09/07/2015 Uncomplicated asthma [J45.909] 09/07/2015 09/18/2019 Drug abuse (HCC) [F19.10] 09/10/2015 Hepatitis C [B19.20] 2018 ASCUS with positive high risk HPV cervical [R87*09/26/2019 01/01/2023 Intractable low back pain [M54.59] 04/27/2020 Urinary incontinence [R32] 04/27/2020 04/28/2020 Nicotine use disorder, F17.2 [F17.200] 04/27/2020 Mild intermittent asthma without complication [*08/03/2020 Basal cell carcinoma (BCC) of scalp [C44.41] 12/09/2020 HSIL (high grade squamous intraepithelial lesio*01/10/2022 01/01/2023 Spotting in early [O26.859] 04/13/2022 01/01/2023 Engages in vaping [Z72.89] 04/13/2022 01/01/2023 History of macrosomia in infant in prior pregna*04/13/2022 01/01/2023 Patient request for diagnostic testing [Z01.89] 04/13/2022 01/01/2023 Needle stick, hypodermic, accidental, initial e*08/14/2022 01/01/2023 Positive GBS test [B95.1] 11/06/2022 01/01/2023 Elevated glucose [R73.09] 11/06/2022 01/01/2023 Anemia [D64.9] 11/06/2022 01/01/2023 Abnormal glucose complicating [O99.81*11/08/2022 01/01/2023 Anemia during in third trimester [O99*11/08/2022 01/01/2023 Diet controlled gestational diabetes mellitus (*11/08/2022 01/01/2023 High grade squamous intraepithelial lesion (HGS*01/01/2023 Pelvic pain in female [R10.2] 01/29/2025 Irregular menstruation [N92.6] 01/29/2025 Encounter Status:Closed by JOSHUA DELGADO on 02/27/25 Normal [facility] CBC W Auto Differential pane l (Bld)on 02-11-2025 Basophils (Bld) [#/Vol] 0.03 10*3/uL [facility] Basophils/100 WBC (Bld) 0.3 % 0.0 - 2.0 % [facility] Eosinophils (Bld) [#/Vol] 0.09 10*3/uL [facility] Eosinophils/100 WBC (Bld) 1.0 % 0.0 - 6.0 % [facility] Erythrocyte distribution width (RBC) [Ratio] 11.8 % 11.5 - 14.5 % [facility] Hematocrit (Bld) [Volume fraction] 35.5 % Low 36.0 - 46.0 % [facility] Hemoglobin (Bld) [Mass/Vol] 12.2 g/dL 12.0 - 16.0 g/dL [facility] Immature granulocytes (Bld) [#/Vol] 0.02 10*3/uL [facility] Immature granulocytes/100 WBC (Bld) 0.2 % 0.0 - 0.9 % [facility] Comment on above: Immature Granulocyte Count (IG) includes promyelocytes, myelocytes and metamyelocytes but does not include bands. Percent differential counts (%) should be interpreted in the context of the absolute cell counts (cells/UL). Interpretation and review of laboratory results Abnormal [facility] Lymphocytes (Bld) [#/Vol] 3.01 10*3/uL [facility] Lymphocytes/100 WBC (Bld) 33.2 % 13.0 - 44.0 % [facility] MCH (RBC) [Entitic mass] 31.5 pg 26.0 - 34.0 pg [facility] MCHC (RBC) [Mass/Vol] 34.4 g/dL 32.0 - 36.0 g/dL [facility] MCV (RBC) [Entitic vol] 92 fL 80 - 100 fL [facility] Monocytes (Bld) [#/Vol] 0.75 10*3/uL [facility] Monocytes/100 WBC (Bld) 8.3 % 2.0 - 10.0 % [facility] Neutrophils (Bld) [#/Vol] 5.16 10*3/uL [facility] Comment on above: Percent differential counts (%) should be interpreted in the context of the absolute cell counts (cells/uL). Neutrophils/100 WBC (Bld) 57.0 % 40.0 - 80.0 % [facility] Nucleated RBC/100 WBC (Bld) [Ratio] 0.0 % [facility] Platelets (Bld) [#/Vol] 250 10*3/uL [facility] RBC (Bld) [#/Vol] 3.87 10*6/uL Low [facility] WBC (Bld) [#/Vol] 9.1 10*3/uL [facility] Basophils (Bld) [#/Vol] 0.03 x10*3/uL Normal 0.00-0.10 [facility] Comment on above: Performed By: #### 5 7021-8 #### GELY DENNISON ([id number]) [facility] ([facility]) [address] [place] [address] 0[address] Basophils/100 WBC (Bld) 0.3 % Normal 0.0-2.0 [facility] Comment on above: Performed By: #### 5 7021-8 #### GELY DENNISON ([id number]) [facility] ([facility]) [address] [place] [address] 00585 Eosinophils (Bld) [#/Vol] 0.09 x10*3/uL Normal 0.00-0.70 [facility] Comment on above: Performed By: #### 5 7021-8 #### GELY DENNISON ([id number]) [facility] ([facility]) [address] [place] [address] 62588 Eosinophils/100 WBC (Bld) 1.0 % Normal 0.0-6.0 [facility] Comment on above: Performed By: #### 5 7021-8 #### GELY DENNISON ([id number]) [facility] ([facility]) [address] [place] [address] 31935 Erythrocyte distribution width (RBC) [Ratio] 11.8 % Normal 11.5-14.5 [facility] Comment on above: Performed By: #### 5 7021-8 #### GELY DENNISON ([id number]) [facility] ([facility]) [address] [place] [address] Hematocrit (Bld) [Volume fraction] 35.5 % Low 36.0-46.0 [facility] Comment on above: Performed By: #### 5 7021-8 #### GELY DENNISON ([id number]) [facility] ([facility]) [address] [place] [address] Hemoglobin (Bld) [Mass/Vol] 12.2 g/dL Normal 12.0-16.0 [facility] Comment on above: Performed By: #### 5 7021-8 #### GELY DENNISON ([id number]) [facility] ([facility]) [address] [place] [address] Immature granulocytes (Bld) [#/Vol] 0.02 x10*3/uL Normal 0.00-0.70 [facility] Comment on above: Performed By: #### 5 7021-8 #### GELY DENNISON ([id number]) [facility] ([facility]) [address] [place], [place] [id number] Immature granulocytes/100 WBC (Bld) 0.2 % Normal 0.0-0.9 [facility] Comment on above: Result Comment: Grace ture Granulocyte Count (IG) includes promyelocytes, myelocytes and metamyelocytes but does not include bands. Percent differential counts (%) should be interpreted in the context of the absolute cell counts (cells/UL). Performed By: #### 5 7021-8 #### GELY DENNISON ([id number]) [facility] ([facility]) [address] [place] [address] Lymphocytes (Bld) [#/Vol] 3.01 x10*3/uL Normal 1.20-4.80 [facility] Comment on above: Performed By: #### 5 7021-8 #### GELY DENNISON ([id number]) [facility] ([facility]) [address] [place] [address] 08975 Lymphocytes/100 WBC (Bld) 33.2 % Normal 13.0-44.0 [facility] Comment on above: Performed By: #### 5 7021-8 #### GELY DENNISON ([id number]) [facility] ([facility]) [address] [place] [address] 62207 MCH (RBC) [Entitic mass] 31.5 pg Normal 26.0-34.0 [facility] Comment on above: Performed By: #### 5 7021-8 #### GELY DENNISON ([id number]) [facility] ([facility]) [address] [place] [address] 26736 MCHC (RBC) [Mass/Vol] 34.4 g/dL Normal 32.0-36.0 [facility] Comment on above: Performed By: #### 5 7021-8 #### GELY DENNISON ([id number]) [facility] ([facility]) [address] [place] [address] 03208 MCV (RBC) [Entitic vol] 92 fL Normal 80-100 [facility] Comment on above: Performed By: #### 5 7021-8 #### GELY DNENISON ([id number]) [facility] ([facility]) [address] [place] [address] 66976 Monocytes (Bld) [#/Vol] 0.75 x10*3/uL Normal 0.10-1.00 [facility] Comment on above: Performed By: #### 5 7021-8 #### GELY DENNISON ([id number]) [facility] ([facility]) [address] [place] [address] 53683 Monocytes/100 WBC (Bld) 8.3 % Normal 2.0-10.0 [facility] Comment on above: Performed By: #### 5 7021-8 #### GELY DENNISON ([id number]) [facility] ([facility]) [address] [place] [address] 00727 Neutrophils (Bld) [#/Vol] 5.16 x10*3/uL Normal 1.20-7.70 [facility] Comment on above: Result Comment: Perc ent differential counts (%) should be interpreted in the context of the absolute cell counts (cells/uL). Performed By: #### 5 7021-8 #### GELY DENNISON ([id number]) [facility] ([facility]) [address] [place] [address] 51216 Neutrophils/100 WBC (Bld) 57.0 % Normal 40.0-80.0 [facility] Comment on above: Performed By: #### 5 7021-8 #### GELY DENNISON ([id number]) [facility] ([facility]) [address] [place] [address] 33640 Nucleated RBC/100 WBC (Bld) [Ratio] 0.0 /100 WBCs Normal 0.0-0.0 [facility] Comment on above: Performed By: #### 5 7021-8 #### GELY DENNISON ([id number]) [facility] ([facility]) [address] [place] [address] 60805 Platelets (Bld) [#/Vol] 250 x10*3/uL Normal 150-450 [facility] Comment on above: Performed By: #### 5 7021-8 #### GELY DENNISON ([id number]) [facility] ([facility]) [address] [place] [address] 41862 RBC (Bld) [#/Vol] 3.87 x10*6/uL Low 4.00-5.20 [facility] Comment on above: Performed By: #### 5 7021-8 #### GELY DENNISON ([id number]) [facility] ([facility]) [address] [place] [address] 91955 WBC (Bld) [#/Vol] 9.1 x10*3/uL Normal 4.4-11.3 [facility] Comment on above: Performed By: #### 5 7021-8 #### GELY ALANLI ([id number]) [facility] ([facility]) [id number] ABDOMEN PELVIS W IV CONTR Demetra 02-11-2025 CT ABDOMEN PELVIS W IV CONTRAST Interpreted By: Ambrose Pearson, STUDY: CT ABDOMEN PELVIS W IV CONTRAST; 02/11/2025 1:24 am INDICATION: Signs/Symptoms:pain. COMPARISON: 08/26/2023 ACCESSION NUMBER(S): [id number] ORDERING CLINICIAN: ROSANNA RUIZ TECHNIQUE: Contiguous axial images of the abdomen and pelvis were obtained after the intravenous administration of contrast. Coronal and sagittal reformatted images were obtained from the axial images. FINDINGS: No basilar airspace disease. No pleural effusion. No evidence of liver mass. The gallbladder is contracted and not well evaluated. No dilatation common bile duct. The pancreas and spleen appear unremarkable. Stable 1.8 cm right adrenal nodule. The left adrenal gland appears unremarkable. Symmetric enhancement of the kidneys. There are multiple bilateral nonobstructive renal calculi which measure up to 4 mm. A subcentimeter fat attenuation lesion in the left kidney may correspond to a small angiomyolipoma. No hydronephrosis. No evidence of bowel obstruction. The appendix is surgically absent. Several nonspecific mildly prominent lymph nodes in the right lower quadrant measuring up to 10 mm may be reactive in nature. Urinary bladder is underdistended and not well evaluated. Limited evaluation of the uterus and adnexa. 2.8 cm left ovarian cyst and trace free fluid in the pelvis. Multilevel degenerative change of the lumbar spine. IMPRESSION: Multiple bilateral nonobstructive renal calculi. No evidence of bowel obstruction. Postsurgical change of prior appendectomy. Several mildly prominent lymph nodes right lower quadrant measuring up to 10 mm may be reactive in nature. 2.8 cm left ovarian cyst and trace fluid in the pelvis. MACRO: None Signed by: Ambrose Pearson 02/11/2025 1:30 AM Dictation workstation: [id number] [facility] CT Abdomen and Pelvis W cont rast Christopher 02-11-2025 Multiple bilateral nonobstructive renal calculi. No evidence of bowel obstruction. Postsurgical change of prior appendectomy. Several mildly prominent lymph nodes right lower quadrant measuring up to 10 mm may be reactive in nature. 2.8 cm left ovarian cyst and trace fluid in the pelvis. MACRO: None Signed by: Ambrose Pearson 02/11/2025 1:30 AM Dictation workstation: [id number] [facility] Interpreted By: Ambrose Pearson, STUDY: CT ABDOMEN PELVIS W IV CONTRAST; 02/11/2025 1:24 am INDICATION: Signs/Symptoms:pain. COMPARISON: 08/26/2023 ACCESSION NUMBER(S): [id number] ORDERING CLINICIAN: ROSANNA RUIZ TECHNIQUE: Contiguous axial images of the abdomen and pelvis were obtained after the intravenous administration of contrast. Coronal and sagittal reformatted images were obtained from the axial images. FINDINGS: No basilar airspace disease. No pleural effusion. No evidence of liver mass. The gallbladder is contracted and not well evaluated. No dilatation common bile duct. The pancreas and spleen appear unremarkable. Stable 1.8 cm right adrenal nodule. The left adrenal gland appears unremarkable. Symmetric enhancement of the kidneys. There are multiple bilateral nonobstructive renal calculi which measure up to 4 mm. A subcentimeter fat attenuation lesion in the left kidney may correspond to a small angiomyolipoma. No hydronephrosis. No evidence of bowel obstruction. The appendix is surgically absent. Several nonspecific mildly prominent lymph nodes in the right lower quadrant measuring up to 10 mm may be reactive in nature. Urinary bladder is underdistended and not well evaluated. Limited evaluation of the uterus and adnexa. 2.8 cm left ovarian cyst and trace free fluid in the pelvis. Multilevel degenerative change of the lumbar spine. MMODAL Ambrose Pearson MD - 02/11/2025 Interpreted By: Ambrose Pearson, STUDY: CT ABDOMEN PELVIS W IV CONTRAST; 02/11/2025 1:24 am INDICATION: Signs/Symptoms:pain. COMPARISON: 08/26/2023 ACCESSION NUMBER(S): [id number] ORDERING CLINICIAN: ROSANNA RUIZ TECHNIQUE: Contiguous axial images of the abdomen and pelvis were obtained after the intravenous administration of contrast. Coronal and sagittal reformatted images were obtained from the axial images. FINDINGS: No basilar airspace disease. No pleural effusion. No evidence of liver mass. The gallbladder is contracted and not well evaluated. No dilatation common bile duct. The pancreas and spleen appear unremarkable. Stable 1.8 cm right adrenal nodule. The left adrenal gland appears unremarkable. Symmetric enhancement of the kidneys. There are multiple bilateral nonobstructive renal calculi which measure up to 4 mm. A subcentimeter fat attenuation lesion in the left kidney may correspond to a small angiomyolipoma. No hydronephrosis. No evidence of bowel obstruction. The appendix is surgically absent. Several nonspecific mildly prominent lymph nodes in the right lower quadrant measuring up to 10 mm may be reactive in nature. Urinary bladder is underdistended and not well evaluated. Limited evaluation of the uterus and adnexa. 2.8 cm left ovarian cyst and trace free fluid in the pelvis. Multilevel degenerative change of the lumbar spine. IMPRESSION: Multiple bilateral nonobstructive renal calculi. No evidence of bowel obstruction. Postsurgical change of prior appendectomy. Several mildly prominent lymph nodes right lower quadrant measuring up to 10 mm may be reactive in nature. 2.8 cm left ovarian cyst and trace fluid in the pelvis. MACRO: None Signed by: Ambrose Pearson 02/11/2025 1:30 AM Dictation workstation: [id number] [facility] Work Phone: Radiology Study observation (narrative) [facility] Work Phone: CT Abdomen and Pelvis W cont rast IVOrdered By: Ambrose Pearson on 02-11-2025 [facility] Work Phone: Comprehensive metabolic 2000 panelon 02-11-2025 Albumin BCP dye [Mass/Vol] 4.2 g/dL 3.4 - 5.0 g/dL [facility] ALP [Catalytic activity/Vol] 73 U/L 33 - 110 U/L [facility] ALT With P-5'-P [Catalytic activity/Vol] 38 U/L 7 - 45 U/L [facility] Comment on above: Patients treated wit h Sulfasalazine may generate falsely decreased results for ALT. Anion gap [Moles/Vol] 8 mmol/L Low 10 - 2 0 mmol/L [facility] AST With P-5'-P [Catalytic activity/Vol] 22 U/L 9 - 39 U/L [facility] Bilirubin [Mass/Vol] 0.8 mg/dL 0.0 - 1 .2 mg/dL [facility] Calcium [Mass/Vol] 9.0 mg/dL 8.6 - 10. 3 mg/dL [facility] Chloride [Moles/Vol] 107 mmol/L 98 - 10 7 mmol/L [facility] CO2 [Moles/Vol] 27 mmol/L 21 - 32 mmol/L [facility] Creatinine [Mass/Vol] 0.64 mg/dL 0.50 - 1.05 mg/dL [facility] eGFR - PINF [facility] Comment on above: Calculations of jamila mated GFR are performed using the 2020 CKD-EPI Study Refit equation without the race variable for the IDMS-Traceable creatinine methods. https://jasn.asnjournals.org/content//ASN.84484 98667 Glucose [Mass/Vol] 103 mg/dL High 74 - 99 mg/dL [facility] Interpretation and review of laboratory results Abnormal [facility] Potassium [Moles/Vol] 4.0 mmol/L 3.5 - 5.3 mmol/L [facility] Protein [Mass/Vol] 6.5 g/dL 6.4 - 8.2 g/dL [facility] Sodium [Moles/Vol] 138 mmol/L 136 - 145 mmol/L [facility] Urea nitrogen [Mass/Vol] 14 mg/dL 6 - 23 mg/dL [facility] Albumin BCP dye [Mass/Vol] 4.2 g/dL Normal 3.4-5.0 [facility] Comment on above: Performed By: #### 2 4323-8 #### GELY DENNISON ([id number]) [facility] ([facility]) [address] [place] [address] ALP [Catalytic activity/Vol] 73 U/L Normal 33-110 [facility] Comment on above: Performed By: #### 2 4323-8 #### GELY DENNISON ([id number]) [facility] ([facility]) [address] [place] [address] ALT With P-5'-P [Catalytic activity/Vol] 38 U/L Normal 7-45 [facility] Comment on above: Result Comment: Mirta ents treated with Sulfasalazine may generate falsely decreased results for ALT. Performed By: #### 2 432-8 #### GELY DENNISON ([id number]) [facility] ([facility]) [address] [place] [address] Anion gap [Moles/Vol] 8 mmol/L Low 10-20 [facility] Comment on above: Performed By: #### 2 432-8 #### GELY DENNISON ([id number]) [facility] ([facility]) [address] [place] [address] AST With P-5'-P [Catalytic activity/Vol] 22 U/L Normal 9-39 [facility] Comment on above: Performed By: #### 2 4322-8 #### GELY DENNISON ([id number]) [facility] ([facility]) [address] [place] [address] Bilirubin [Mass/Vol] 0.8 mg/dL Normal 0.0-1.2 [facility] Comment on above: Performed By: #### 2 4322-8 #### GELY DENNISON ([id number]) [facility] ([facility]) [address] [place] [address]58 Calcium [Mass/Vol] 9.0 mg/dL Normal 8.6-10.3 [facility] Comment on above: Performed By: #### 2 432-8 #### GELY DENNISON ([id number]) [facility] ([facility]) [facility] [place] [address] Chloride [Moles/Vol] 107 mmol/L Normal 98-107 [facility] Comment on above: Performed By: #### 2 432-8 #### GELY DENNISON ([id number]) [facility] ([facility]) [address] [place] [address] 45818 CO2 [Moles/Vol] 27 mmol/L Normal 21-32 [facility] Comment on above: Performed By: #### 2 432-8 #### GELY DENNISON ([id number]) [facility] ([facility]) [address] [place] [address] 00016 Creatinine [Mass/Vol] 0.64 mg/dL Normal 0.50-1.05 [facility] Comment on above: Performed By: #### 2 4323-8 #### GELY DENNISON ([id number]) [facility] ([facility]) [address] [place] [address] 16041 GFR/1.73 sq M.predicted MDRD (S/P/Bld) [Vol rate/Area] mL/min/{1.73_m2} Normal >60 [facility] Comment on above: Result Comment: Calc ulations of estimated GFR are performed using the 2020 CKD-EPI Study Refit equation without the race variable for the IDMS-Traceable creatinine methods. https://jasn.asnjournals.org/content/early/ASN.59432 56358 Performed By: #### 2 4323-8 #### GELY DENNISON ([id number]) [facility] ([facility]) [address] [place] [address]8899 Glucose [Mass/Vol] 103 mg/dL High 74-99 [facility] Comment on above: Performed By: #### 2 432-8 #### GELY DENNISON ([id number]) [facility] ([facility]) [address] [place] [address] 14262 Potassium [Moles/Vol] 4.0 mmol/L Normal 3.5-5.3 [facility] Comment on above: Performed By: #### 2 4323-8 #### GELY DENNISON ([id number]) [facility] ([facility]) [address] [place] [address]18 Protein [Mass/Vol] 6.5 g/dL Normal 6.4-8.2 [facility] Comment on above: Performed By: #### 2 4323-8 #### GELY DENNISON ([id number]) [facility] ([facility]) [address] [place] [address] 08968 Sodium [Moles/Vol] 138 mmol/L Normal 136-145 [facility] Comment on above: Performed By: #### 2 4323-8 #### GELY DENNISON ([id number]) [facility] ([facility]) [facility] [place] [address] Urea nitrogen [Mass/Vol] 14 mg/dL Normal 01-12 [facility] Comment on above: Performed By: #### 2 4323-8 #### GELY DENNISON ([id number]) [facility] ([facility]) [address] [place] [address] 36141 Lactateon 02-11-2025 Lactate [Moles/Vol] 0.9 mmol/L 0.4 - 2. 0 mmol/L [facility] Lactate [Moles/Vol] 0.9 mmol/L Normal 0.4-2.0 [facility] Comment on above: Order Comment: Venip uncture immediately after or during the administration of Metamizole may lead to falsely low results. Testing should be performed immediately prior to Metamizole dosing. Performed By: #### 2 524-7 #### GELY DENNISON ([id number]) [facility] ([facility]) [address] [place] [address] 67640 Lactate [Moles/Vol]on 2024 Interpretation and review of laboratory results Normal [facility] Venipuncture immediately after or during the administration of Metamizole may lead to falsely low results. Testing should be performed immediately prior to Metamizole dosing. [facility] Magnesiumon 02-11-2025 Magnesium [Mass/Vol] 1.89 mg/dL 1.60 - 2.40 mg/dL [facility] Magnesium [Mass/Vol] 1.89 mg/dL Normal 1.60-2.40 [facility] Comment on above: Performed By: #### 1 9123-9 #### GELY DENNISON ([id number]) [facility] ([facility]) [address] [place] [address] 74815 Magnesium [Mass/Vol]on 02-11 Interpretation and review of laboratory results Normal [facility] No Panel Informationon 02-11 [facility] Urinalysis complete W Reflex Culture panel (U)on 02-11-2025 Appearance (U) Clear Clear [facility] Bilirubin (U) [Mass/Vol] Negative NEGATIVE mg/dL [facility] Color (U) Light-Yellow Light-Yello w, Yellow, Dark-Yellow [facility] Glucose Auto test strip (U) [Mass/Vol] Normal Normal mg/dL [facility] Interpretation and review of laboratory results Normal [facility] Ketones (U) [Mass/Vol] Negative NEGAT SHAUNA mg/dL [facility] Leukocyte esterase Auto test strip Ql (U) Negative NEGATIVE [facility] Nitrite Auto test strip Ql (U) Negative NEGATIVE [facility] pH (U) 6.0 [pH] 5.0, 5.5, 6.0, 6.5, 7.0, 7.5, 8.0 [facility] Protein (U) [Mass/Vol] Negative NEGAT SHAUNA, 10 (TRACE), 20 (TRACE) mg/dL [facility] RBC (U) [#/Vol] Negative NEGATIVE mg/dL [facility] Specific gravity (U) [Rel density] 1.030 1.005 - 1.035 [facility] Urobilinogen (U) [Mass/Vol] Normal Normal mg/dL [facility] Appearance (U) Clear Normal Clear [facility] Comment on above: Performed By: #### 5 8077-9 #### GELY DENNISON ([id number]) [facility] ([facility]) [address] [place], [place] [id number] Bilirubin (U) [Mass/Vol] Negative Normal NEGATIVE [facility] Comment on above: Performed By: #### 5 8077-9 #### GELY DENNISON ([id number]) [facility] ([facility]) [address] [place] [address]441 Color (U) Light-Yellow Normal Light-Yello w, Yellow, Dark-Yellow [facility] Comment on above: Performed By: #### 5 8077-9 #### GELY DENNISON ([id number]) [facility] ([facility]) [address] [place] [address] 33097 Glucose Auto test strip (U) [Mass/Vol] Normal Normal Normal [facility] Comment on above: Performed By: #### 5 8077-9 #### GELY DENNISON ([id number]) [facility] ([facility]) [address] [place] [address] Ketones (U) [Mass/Vol] Negative Normal NEGATIVE [facility] Comment on above: Performed By: #### 5 8077-9 #### GELY DENNISON ([id number]) [facility] ([facility]) [address] [place] [address] Leukocyte esterase Auto test strip Ql (U) Negative Normal NEGATIVE [facility] Comment on above: Performed By: #### 5 8077-9 #### GELY DENNISON ([id number]) [facility] ([facility]) [address] [place] [address] Nitrite Auto test strip Ql (U) Negative Normal NEGATIVE [facility] Comment on above: Performed By: #### 5 8077-9 #### GELY DENNISON ([id number]) [facility] ([facility]) [address] [place] [address] pH (U) 6.0 [pH] Normal 5.0, 5.5, 6.0, 6.5, 7.0, 7.5, 8.0 [facility] Comment on above: Performed By: #### 5 8077-9 #### GELY DENNISON ([id number]) [facility] ([facility]) [address] [place] [address] Protein (U) [Mass/Vol] Negative Normal NEGAT SHAUNA, 10 (TRACE), 20 (TRACE) [facility] Comment on above: Performed By: #### 5 8077-9 #### GELY DENNISON ([id number]) [facility] ([facility]) [address] [place] [address] RBC (U) [#/Vol] Negative Normal NEGATIVE [facility] Comment on above: Performed By: #### 5 8077-9 #### GELY DENNISON ([id number]) [facility] ([facility]) [address] [place] [address] Specific gravity (U) [Rel density] 1.030 Normal 1.005-1.035 [facility] Comment on above: Performed By: #### 5 8077-9 #### GELY DENNISON ([id number]) [facility] ([facility]) [address] [place] [address] Urobilinogen (U) [Mass/Vol] Normal Normal Normal [facility] Comment on above: Performed By: #### 5 8077-9 #### GELY DENNISON ([id number]) [facility] ([facility]) [address] [place] [address] CNPMulu 02-09-2025 CNPN Telephone (4CQ) FADUMO HENSLEY ([id number]) 1995 F Date Time Provider Department 02/09/25 CARMELITA MILLAN 4CQ During your visit today, we recorded the following information about you: Roxanne Mccoy 02/09/2025 2:36 PM Signed Pt states she was seen 01/29. She has now decided she would like to have IUD. Please advise and place orders if willing, Thank you Carmelina Gonzalez LPN 02/11/2025 11:58 AM Addendum Patient called stating that she was seen at the emergency dept.at yesterday and had a CT scan done d/t ongoing pelvic/lower abdominal pain for over a month that is worsening. Patient describes pain as cramping in pelvic area, and can be sharp/shooting depending on what activity pt is doing and feels heaviness in abdomen. Pain rated a 7/10. Denies fever. Is taking doxycycline 100 mg and started to have diarrhea a couple days ago. Patient asking if provider could review her CT scan and if a f/u appointment is needed. Carmelita Millan MD 02/11/2025 12:[address] is unremarkable. The small lesion on the ovary is about an inch in size and that is a normal follicle size and not the source of ongoing pain or concern. If she doesn't tolerate the doxy, she doesn't have to finish it. Ok to schedule the IUD insertion and would screen for mycoplasm before insertion. There is not clear cut one source for her pain. Follow up for IUD or prn. MD Sandy Mccarthy Trisha, RN 02/11/2025 3:47 PM Signed Patient notified. She is questioning the enlarged lymph nodes on CT scan. Asking if that could be related to anything or if she just needs to f/u with PCP next since pain is ongoing? BRIT Lgauna Rebecca L, MD 02/12/2025 1:34 PM Signed Those are often non specific but could indicate she had an infection that could have been causing some of her issues acutely. MD Clinton Mccarthy Tara, RN 02/12/2025 1:46 PM Signed Pt notified and voiced understanding. Did inform Pt it is her choice if she decides to f/u with her PCP, but at this time, Dr. Millan has reviewed the CT and said there is not a clear cut one source for her pain. When asked if she wanted to schedule the IUD insertion, Pt states she will call back as she is currently at work. Tri Alonzo RN Allergies As of Date: 02/09/2025 Noted Allergy Reaction ZYRTEC (CETIRIZINE HCL) 05/08/2006 5 - Intolerance Comments: tremors Date Reviewed: 01/29/2025 Reviewed by: Carmelita Millan MD - Fully Assessed Reason for Visit: Orders [681] Abdominal Pain [1] Primary Visit Diagnosis:Encounter for IUD insertion [Z30.430] Order(s):INSERT INTRAUTERINE DEVICE [[id number]] Order #: [id number] Prescriptions as of 02/12/2025 - lamoTRIgine (LAMICTAL) 25 mg tablet Take 2 tablets by mouth once daily. - naproxen (NAPROSYN) 375 mg tablet Take 1 tablet by mouth three times a day as needed (pain). - tiZANidine (ZANAFLEX) 4 mg tablet Take 1/2 - 1 tablet oral Three times a day , PRN as needed for 30 Days - prochlorperazine (COMPAZINE) 10 mg tablet Take 1 tablet by mouth every 8 hours as needed for nausea/vomiting. - Etonogestrel-Ethinyl Estradiol (NUVARING) 0.12-0.015 mg/24 hr vaginal ring Use 1 Each vaginally as directed. INSERT ONE(1) RING VAGINALLY AND LEAVE IN PLACE FOR THREE WEEKS, THEN REMOVE FOR 1 WEEK. - SUMAtriptan (IMITREX) 100 mg tablet Take 1 tablet (100 mg) by mouth as needed. TAKE ONE (1) TABLET EVERY 2 HOURS WITH A MAXIMUM DOSE OF 200 MG PER DAY NEEDED FOR HEADACHE - LORazepam (ATIVAN) 0.5 mg Take 0.25 mg by mouth as needed (panic attacj). - fluticasone (FLONASE) 50 mcg/actuation nasal spray Use 2 Sprays in each nostril once daily. Rinse mouth after use. - acetaminophen (TYLENOL 8 HOUR) 650 mg CR tablet Take 1 tablet by mouth every 8 hours as needed. - lisdexamfetamine (VYVANSE) 40 mg capsule Take 1 capsule by mouth once daily for 30 days. - cloNIDine HCl (CATAPRES) 0.1 mg tablet Take 1 tablet by mouth once daily as needed (Anxiety). Meds Comments as of 10/05/2024: 10/05 Stated this medication prescribed by psychiatry outside the [facility] Lamotrigine 50mg once day Idania Loco RN Problem List As Of Date 02/09/2025 Noted Resolved Attention deficit disorder [F98.8] 11/27/2007 Telangiectasia [I78.1] 01/27/2010 09/18/2019 Rosacea [L71.9] 01/27/2010 09/18/2019 Other acne [L70.8] 01/27/2010 09/18/2019 Depression [F32.A] 05/26/2011 09/18/2019 Tobacco use in [O99.330] 04/18/2012 10/08/2012 History of depression [Z86.59] 04/18/2012 01/01/2023 History of alcohol abuse [F10.11] 04/18/2012 01/01/2023 Family history of congenital heart defect [Z82.*04/18/2012 01/01/2023 with adoption planned [Z34.90] 04/22/2012 10/08/2012 Chlamydia infection [A74.9] 09/23/2013 09/18/2019 Routine gynecological examination [Z01.419] 12/09/2014 09/18/2019 Family history of leukemia (more content not included)... Normal [facility] US Pelvison 02-01-2025 Indication pelvic pain Impression The uterus is anteverted and measures 70 mm x 36 mm x 51 mm. The endometrial thickness is 3 mm. The right ovary measures 28 mm x 24 mm x 17 mm and contains a hemorrhagic corpus luteum cyst. The left ovary measures 30 mm x 25 mm x 11 mm. There is no free fluid visualized. Recommendations Normal pelvic ultrasound with a right hemorrhagic corpus luteum cyst. No follow-up is needed. History Medical History Surgery: LEEP Menstrual History LMP on 01/27/2025 Method Transabdominal, transvaginal, 3D ultrasound examination, Color Doppler examination. View: Adequate visualization Uterus Uterus: Visualized Uterus position: anteverted Description of uterine malformations: none Myometrium: heterogeneous Endometrium: normal Cervix details: normal Uterus length 70 mm Uterus width 51 mm Uterus height 36 mm Uterus Vol 67.1 cm Endometrial thickness, total 3.0 mm Fibroids: No fibroids identified Polyps: No polyps identified Right Ovary Rt ovary: Visualized Rt ovary morphology: premenopausal normal follicular Rt ovary D1 28 mm Rt ovary D2 24 mm Rt ovary D3 17 mm Rt ovary Vol 5.8 cm Rt ovarian corpus luteum: hemorrhagic Rt ovarian corpus luteum D1 17.6 mm Rt ovarian corpus luteum D2 15.6 mm Rt ovarian corpus luteum D3 11.0 mm Left Ovary Lt ovary: Visualized Lt ovary morphology: premenopausal normal follicular Lt ovary D1 30 mm Lt ovary D2 25 mm Lt ovary D3 11 mm Lt ovary Vol 4.3 cm Lt ovarian cyst(s): No cysts identified Cul de Sac Visualized. no free fluid visualized Performed By: Lesvia Browne RDMS Read By: Irene Henderson M.D. MATERNAL MEDICINE [facility] CNOVon 01-29-2025 CNOV Office Visit (OBGYWM ) AYDENFADUMO ([id number]) 1995 F Date Time Provider Department 01/29/25 10:20 AM CARMELITA MILLAN OBGYWM During your visit today, we recorded the following information about you: Blood pressure Weight Last Period 104/70 80.3 kg 01/27/25 Carmelita Millan MD 01/29/2025 11:17 AM Signed Obstetrics and Gynecology [place] [facility] [employer] Visit Subjective Recording using [employer] software for draft documentation of the visit was discussed with the patient/authorized artist representative; all questions welcomed and answered. Patient/authorized artist representative agreed to proceed CHIEF COMPLAINT: The patient is a 29-year-old female presenting with pelvic pain and irregular bleeding. HPI: Pelvic Pain - Reports sharp, twinge-like pain in the lower abdomen, which is significantly worse after intercourse and can last throughout the following day. - Describes the pain as severe enough to cause her to double over at times, stating it can be unbearable. - Pain is not localized to one side and does not resemble menstrual cramping. - Pain during intercourse described as something's getting bumped. - Pain onset reportedly began after a recent LEEP procedure, with a noticeable increase in severity over the past month and a half. May be worse since of her last child - Takes Tylenol for pain management and uses oral Toradol sparingly when pain is severe. - Denies any relief from heat or rest, and has not noticed if tight clothing exacerbates the pain. - Denies associated symptoms such as fevers, chills, nausea, vomiting, or urinary symptoms. - Denies pain with bowel movements or constipation. - Denies vaginal discharge, itching, or burning. Irregular Bleeding - Last menstrual period was two weeks long, followed by a two-week interval without bleeding. - Currently experiencing another bleeding episode that started two days ago, which she believes is her period. - Describes the current bleeding as average for a period, not the heaviest she has experienced. - Has not refilled her NuvaRing prescription but believes it helps with her periods and wants to avoid . Kidney Stones - History of kidney stones requiring surgical removal. - States current pain does not resemble the pain experienced with kidney stones. Back Pain - Has a history of back pain, for which she was prescribed Toradol, possibly from an ER visit. HISTORY: OB History Gravida2 Para2 Term2 Preterm0 AB0 Living2 SAB0 IAB0 Ectopic0 Multiple0 Live Births2 Communications Clerk History LMP: 01/27/2025 (Exact Date), Having periods Age at Menarche: Age at First : Age at Menopause: Communications Clerk History Comments: Sexual Activity: Yes; Male Contraception: No contraception data on record PAST MEDICAL HISTORY Diagnosis Date Appendicitis ASCUS with positive high risk HPV cervical 09/26/2019 Asthma (HCC) 11/29/2011 ATTN DEFICIT NONHYPERACT 11/27/2007 Atypical glandular cells of undetermined significance (ZENA) on cervical Pap smear 05/19/2024 Bulging of intervertebral disc between L4 and L5 and L5 and S1 09/07/2015 Chest pain 04/29/2010 Chlamydia infection 09/23/2013 Depression 05/26/2011 Depression complicating , antepartum ([facility]) 08/02/2012 Diet controlled gestational diabetes mellitus (GDM) in second trimester ([facility]) 11/08/2022 11/08/22- 2 levels out of 3 elevated. Supplies and referrals ordered. Sulma Bartholomew, [facility].CNM Generalized anxiety disorder GERD (gastroesophageal reflux disease) Hepatitis C 2017 2018 cured after medication course. High grade squamous intraepithelial cervical dysplasia History of suicide attempt 2014 cutting wrist Juvenile osteochondrosis of lower extremity, excluding foot 2005, resolved Kidney stones Migraine headache 05/26/2011 other Sever's Disease, 2006, resolved Other acne 01/27/2010 Pain in joint, site unspecified AC joint tear, 2005 Patient requested diagnostic testing 04/18/2012 04/18/2012 Patient desires early screening in with sequential testing. Poor support system complicating ([facility]) 04/18/2012 04/18/2012The father of the baby is aware that she is , but does not wish to be involved. Patient states her parents are very supportive. Patient is tearful for some of this visit today due to the father of the baby. She states he has put pressure on her in the past to have an , but she does not wish to do that. Patient was given a brochure on the care center and WIC. depression PTSD (post-traumatic stress disorder) Rosacea 01/27/2010 Rubella non-immune status 04/22/2012 Skin cancer Teen 04/22/2012 July 04, 2012 Flu vaccine given Telangiectasia 01/27/2010 Tobacco use disorder PAST SURGICAL HISTORY Procedure Laterality Date APPENDECTOMY CERVIX UTERI CON (more content not included)... Normal [facility] US Pelvison 01-29-2025 Radiology Study observation (narrative) [facility] CNPNon 01-27-2025 CNPN Telephone (OBGYWM) FADUMO HENSLEY ([id number]) 1995 F Date Time Provider Department 01/27/25 CARMELITA MILLAN OBGYWM During your visit today, we recorded the following information about you: Tri Alonzo RN 01/27/2025 3:44 PM Signed Pt states she had an appt scheduled with 12/30/24 for bleeding x a couple of weeks/intense cramping/pain/she was concerned; However, was unable to come in d/t work. Pt calling stating she has pain with sex and cervical pain post sexual intercourse. Pt states it comes and goes throughout the day, but it seems to be triggered by intercourse. States pain is described as stabbing/throbbing/shoo ting. Rates pain 5/10, intermittently. Taking Tylenol PRN AND Toradol PRN and seems to help. IUD removed 04/2024. Started Nuvaring right after IUD removed. Stopped Nuvaring a month ago. Intermittent spotting. Hx CIN3 , LEEP-Pathology showed= high grade dysplasia. Appt scheduled with RR 01/29/25. Tri Alonzo RN Allergies As of Date: 01/27/2025 Noted Allergy Reaction ZYRTEC (CETIRIZINE HCL) 05/08/2006 5 - Intolerance Comments: tremors Date Reviewed: 11/28/2024 Reviewed by: Kenya Reina LPN - Fully Assessed Prescriptions as of 01/27/2025 - tiZANidine (ZANAFLEX) 4 mg tablet Take 1/2 - 1 tablet oral Three times a day , PRN as needed for 30 Days - prochlorperazine (COMPAZINE) 10 mg tablet Take 1 tablet by mouth every 8 hours as needed for nausea/vomiting. - Etonogestrel-Ethinyl Estradiol (NUVARING) 0.12-0.015 mg/24 hr vaginal ring Use 1 Each vaginally as directed. INSERT ONE(1) RING VAGINALLY AND LEAVE IN PLACE FOR THREE WEEKS, THEN REMOVE FOR 1 WEEK. - SUMAtriptan (IMITREX) 100 mg tablet Take 1 tablet (100 mg) by mouth as needed. TAKE ONE (1) TABLET EVERY 2 HOURS WITH A MAXIMUM DOSE OF 200 MG PER DAY NEEDED FOR HEADACHE - escitalopram oxalate (LEXAPRO) 5 mg tablet Take 5 mg by mouth once daily. - LORazepam (ATIVAN) 0.5 mg Take 0.25 mg by mouth as needed (panic attacj). - fluticasone (FLONASE) 50 mcg/actuation nasal spray Use 2 Sprays in each nostril once daily. Rinse mouth after use. - dextromethorphan-guaiFE Nesin (MUCINEX DM) 30-600 mg per tablet Take 1 tablet by mouth two times a day. - semaglutide, weight loss, (WEGOVY) 0.25 mg/0.5 mL pen injector Inject 0.5 mL subcutaneously one time a week. - citalopram (CELEXA) 20 mg tablet Take 2 tablets by mouth once daily. - keTORolac (TORADOL) 10 mg tablet Take 1 tablet by mouth every 6 hours as needed. For up to 5 days - acetaminophen (TYLENOL 8 HOUR) 650 mg CR tablet Take 1 tablet by mouth every 8 hours as needed. - lisdexamfetamine (VYVANSE) 40 mg capsule Take 1 capsule by mouth once daily for 30 days. - cloNIDine HCl (CATAPRES) 0.1 mg tablet Take 1 tablet by mouth once daily as needed (Anxiety). Meds Comments as of 10/05/2024: 10/05 Stated this medication prescribed by psychiatry outside the [facility] Lamotrigine 50mg once day Idania Loco RN Problem List As Of Date 01/27/2025 Noted Resolved Attention deficit disorder [F98.8] 11/27/2007 Telangiectasia [I78.1] 01/27/2010 09/18/2019 Rosacea [L71.9] 01/27/2010 09/18/2019 Other acne [L70.8] 01/27/2010 09/18/2019 Depression [F32.A] 05/26/2011 09/18/2019 Tobacco use in [O99.330] 04/18/2012 10/08/2012 History of depression [Z86.59] 04/18/2012 01/01/2023 History of alcohol abuse [F10.11] 04/18/2012 01/01/2023 Family history of congenital heart defect [Z82.*04/18/2012 01/01/2023 with adoption planned [Z34.90] 04/22/2012 10/08/2012 Chlamydia infection [A74.9] 09/23/2013 09/18/2019 Routine gynecological examination [Z01.419] 12/09/2014 09/18/2019 Family history of leukemia [Z80.6] 02/04/2015 01/01/2023 Vapes nicotine containing substance [Z72.0] 09/07/2015 01/01/2023 Bulging of intervertebral disc between L4 and L*09/07/2015 Migraine without aura and without status migrai*09/07/2015 Uncomplicated asthma [J45.909] 09/07/2015 09/18/2019 Drug abuse (HCC) [F19.10] 09/10/2015 Hepatitis C [B19.20] 2018 ASCUS with positive high risk HPV cervical [R87*09/26/2019 01/01/2023 Intractable low back pain [M54.59] 04/27/2020 Urinary incontinence [R32] 04/27/2020 04/28/2020 Nicotine use disorder, F17.2 [F17.200] 04/27/2020 Mild intermittent asthma without complication [*08/03/2020 Basal cell carcinoma (BCC) of scalp [C44.41] 12/09/2020 HSIL (high grade squamous intraepithelial lesio*01/10/2022 01/01/2023 Spotting in early [O26.859] 04/13/2022 01/01/2023 Engages in vaping [Z72.89] 04/13/2022 01/01/2023 History of macrosomia in in prior pregna*04/13/2022 01/01/2023 Patient request for diagnostic testing [Z01.89] 04/13/2022 01/01/2023 Needle stick, hypodermic, accidental, initial e*08/14/2022 01/01/2023 Positive GBS test [B95.1] 11/06/2022 01/01/2023 Elevated glucose [R73.09] 11/06/2022 01/01/2023 Anemia (more content not included)... Normal [facility] MR/BMS.BPon 01-02-2025 MR/[place] [address] OFFICE VISIT Date of Service: 01/01/25 MR#: [id number] Acct: [id number] Name: FADUMO HENSLEY Rep #: [id number] : 1995 Provider: [facility] Aliyah sahu Age/Sex: 29/F Location: [facility].BP Status: Signed Intake Vital Signs 09/11/24 14:22 10/05/24 20:27 11/10/24 22:48 01/02/25 10:06 Height 5 ft 7 in 5 ft 6 in 5 ft 6 in 5 ft 6 in BP Intake Visit Reasons: Follow up Allergies cetirizine (From [facility]) Allergy (Verified 11/10/24 22:50) difficulty breathing, racing heart [facility] Medical History DDD (degenerative disc disease), lumbar Wears partial dentures Substance abuse History of steroid therapy Hepatitis Vapes nicotine containing substance Gastric reflux History of pain when walking History of edema Hypotension History of Mohs micrographic surgery for skin cancer Encounter for IUD insertion MANUEL III (cervical intraepithelial neoplasia grade III) with severe dysplasia Herniated lumbar intervertebral disc Asthma depression Depression Anxiety Gestational diabetes Skin cancer ADHD Lower back pain Surgical History History of appendectomy Hx of wisdom tooth extraction Family History Other Suicide Social History Smoking Status: Current every day smoker tobacco type: e-cigarettes alcohol intake: never details: Occasionally substance use type: does not use HPI History of Present Illness HPI: Fadumo Hensley is a 29 year-old female returning for BH therapy. She reported some reduction in anxiety since her last appointment. 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 She reported financial stressors, stressors about change in health insurance, and stressor related to contact with her half-sister. Encouraged verbalization of emotions while providing support. Normalized emotions. Worked on grief, historically difficult relationship with mother, and difficult relationship with a stepsister using CBT interventions. Fadumo discussed internalizing her own emotions in attempts to care for 's emotions. Explored pros and cons. Exam Mental Status Exam - Psych Appearance casually dressed and adequately groomed Attitude cooperative, calm and engaged Activity/Motor Behavior MSE activity/motor behavior finding no adventitious movements and appropriate eye contact Speech regular rate, regular volume and regular prosody Mood anxious Affect congruent Thought Process linear, logical, coherent and goal directed Thought Content no delusions, no hallucinations and ruminations (Related to finances.) Suicidal Ideation none Homicidal Ideation none Attention impaired (Per pt. report.) Concentration impaired (Per pt. report.) Sensorium/Orientation alert and oriented x3 Memory/Cognition impaired (Per pt. report.) Insight good Judgement good Assessment Plan Assessment Plan (1) ADHD: Qualifiers: Attention deficit-hyperactivity disorder type: unspecified Qualified Code(s): F90.9 - Attention-deficit hyperactivity disorder, unspecified type Plan: therapy using CBT strategies to address ADHD symptoms and to teach coping skills. Psychiatric services to monitor ADHD symptoms and medication effectiveness. (2) NOAH (generalized anxiety disorder): Plan: therapy using CBT, DBT, and ACT interventions to address thought patterns contributing to anxious symptoms and to teach coping skills. Psychiatric services to monitor anxious symptoms and medication effectiveness. (3) MDD (major depressive disorder): Qualifiers: Major depression recurrence: recurrent Active/Remission status: currently active Major depression episode severity: moderate Qualified Code(s): F33.1 - Major depressive disorder, recurrent, moderate Plan: BH therapy using CBT, DBT, and ACT interventions to address thought patterns contributing to depressive symptoms and teach coping skills. Continued psychiatric services to monitor depressive symptoms and medication effectiveness. Pt. to call 911, call suicide prevention hotline, or go to ER if experiencing suicidal ideation with plan and intent and/or feel unable to ensure own safety. Visit Details Duration of visit (minutes): 45 Duration of counseling (minutes): 45 Total time (minutes): 45 Type of visit: psychotherapy and [id number] [place] [id number] PSYTX W PT 45 MINUTES Patient Type Established Diagnoses Attention deficit hyperactivity diso (more content not included)... Normal [facility] 12-29-2024 [facility] Telephone (OBGYWM) FADUMO HENSLEY ([id number]) 1995 F Date Time Provider Department 12/29/24 ANGELA HAQ During your visit today, we recorded the following information about you: Joshua Delgado RN 12/29/2024 12:56 PM Signed Patient calling c/o bleeding over a week and moderate cramping with small clots. This is very unusual for her. Stated she thinks she messed up Nuvaring schedule and could have caused this bleeding, but is concerned about . Advised to take UPT at home and call back if it is positive. Using tampons and changing them every 2 hours today. Denies chest pain, shortness of breath or dizziness. She does feel fatigued some. Intermittent pelvic cramping radiates into lower back. Not severe and doesn't feel she needs to go to ER, but very uncomfortable and OTC measures not helping much. No available appts today. Scheduled with for tomorrow. Heavy bleeding precautions reviewed and to go to ER with worsening symptoms or pain. Patient agreed. Joshua Delgado RN Allergies As of Date: 12/29/2024 Noted Allergy Reaction ZYRTEC (CETIRIZINE HCL) 05/08/2006 5 - Intolerance Comments: tremors Date Reviewed: 11/28/2024 Reviewed by: Kenya Reina LPN - Fully Assessed Reason for Visit: Patient Update [1234] Prescriptions as of 12/29/2024 - prochlorperazine (COMPAZINE) 10 mg tablet Take 1 tablet by mouth every 8 hours as needed for nausea/vomiting. - tiZANidine (ZANAFLEX) 4 mg tablet Take 1/2 - 1 tablet oral Three times a day , PRN as needed for 30 Days - Etonogestrel-Ethinyl Estradiol (NUVARING) 0.12-0.015 mg/24 hr vaginal ring Use 1 Each vaginally as directed. INSERT ONE(1) RING VAGINALLY AND LEAVE IN PLACE FOR THREE WEEKS, THEN REMOVE FOR 1 WEEK. - SUMAtriptan (IMITREX) 100 mg tablet Take 1 tablet (100 mg) by mouth as needed. TAKE ONE (1) TABLET EVERY 2 HOURS WITH A MAXIMUM DOSE OF 200 MG PER DAY NEEDED FOR HEADACHE - escitalopram oxalate (LEXAPRO) 5 mg tablet Take 5 mg by mouth once daily. - LORazepam (ATIVAN) 0.5 mg Take 0.25 mg by mouth as needed (panic attacj). - fluticasone (FLONASE) 50 mcg/actuation nasal spray Use 2 Sprays in each nostril once daily. Rinse mouth after use. - dextromethorphan-guaiFE Nesin (MUCINEX DM) 30-600 mg per tablet Take 1 tablet by mouth two times a day. - semaglutide, weight loss, (WEGOVY) 0.25 mg/0.5 mL pen injector Inject 0.5 mL subcutaneously one time a week. - citalopram (CELEXA) 20 mg tablet Take 2 tablets by mouth once daily. - keTORolac (TORADOL) 10 mg tablet Take 1 tablet by mouth every 6 hours as needed. For up to 5 days - acetaminophen (TYLENOL 8 HOUR) 650 mg CR tablet Take 1 tablet by mouth every 8 hours as needed. - lisdexamfetamine (VYVANSE) 40 mg capsule Take 1 capsule by mouth once daily for 30 days. - cloNIDine HCl (CATAPRES) 0.1 mg tablet Take 1 tablet by mouth once daily as needed (Anxiety). Meds Comments as of 10/05/2024: 10/05 Stated this medication prescribed by psychiatry outside the [facility] Lamotrigine 50mg once day Idania Loco RN Problem List As Of Date 12/29/2024 Noted Resolved Attention deficit disorder [F98.8] 11/27/2007 Telangiectasia [I78.1] 01/27/2010 09/18/2019 Rosacea [L71.9] 01/27/2010 09/18/2019 Other acne [L70.8] 01/27/2010 09/18/2019 Depression [F32.A] 05/26/2011 09/18/2019 Tobacco use in [O99.330] 04/18/2012 10/08/2012 History of depression [Z86.59] 04/18/2012 01/01/2023 History of alcohol abuse [F10.11] 04/18/2012 01/01/2023 Family history of congenital heart defect [Z82.*04/18/2012 01/01/2023 with adoption planned [Z34.90] 04/22/2012 10/08/2012 Chlamydia infection [A74.9] 09/23/2013 09/18/2019 Routine gynecological examination [Z01.419] 12/09/2014 09/18/2019 Family history of leukemia [Z80.6] 02/04/2015 01/01/2023 Vapes nicotine containing substance [Z72.0] 09/07/2015 01/01/2023 Bulging of intervertebral disc between L4 and L*09/07/2015 Migraine without aura and without status migrai*09/07/2015 Uncomplicated asthma [J45.909] 09/07/2015 09/18/2019 Drug abuse (HCC) [F19.10] 09/10/2015 Hepatitis C [B19.20] 2018 ASCUS with positive high risk HPV cervical [R87*09/26/2019 01/01/2023 Intractable low back pain [M54.59] 04/27/2020 Urinary incontinence [R32] 04/27/2020 04/28/2020 Nicotine use disorder, F17.2 [F17.200] 04/27/2020 Mild intermittent asthma without complication [*08/03/2020 Basal cell carcinoma (BCC) of scalp [C44.41] 12/09/2020 HSIL (high grade squamous intraepithelial lesio*01/10/2022 01/01/2023 Spotting in early [O26.859] 04/13/2022 01/01/2023 Engages in vaping [Z72.89] 04/13/2022 01/01/2023 History of macrosomia in in prior pregna*04/13/2022 01/01/2023 Patient request for diagnostic testing [Z01.89] 04/13/2022 01/01/2023 Needle stick, hypodermic, accidental, initial e*08/14/2022 01/01/2023 Posi (more content not included)... Normal [facility] CNCOon 12-01-2024 CNCO Letter Text Normal [facility] CNPNon 11-28-2024 [facility] FADUMO HENSLEY ([id number]) 1995 F Date Time Provider Department 11/28/24 ALIYAH CARTER During your visit today, we recorded the following information about you: Lisa Daniels 11/28/2024 12:34 PM Signed Patient just had a virtual appointment she was not able to get in My Chart for paper work . Patient will have paper work faxed to office . Patient states that it should be faxed back to Attn Adriane Noriega fax number Sienna Heller LPN 12/01/2024 3:30 PM Signed Type of form: FMLA Form received via fax When form is completed, Fax form to [phone] Form has been forwarded to Aliyah Carter APRN, ANISHA. Seen 11/28/24 VIRGILIO Villatoro Jennifer, APRN.[facility] 12/03/2024 12:44 PM Signed Forms signed Aliyah Carter APRN.Kenya Knapp LPN 12/03/2024 1:29 PM Signed Form faxed and sent for scanning. Kenya Reina LPN Allergies As of Date: 11/28/2024 Noted Allergy Reaction ZYRTEC (CETIRIZINE HCL) 05/08/2006 5 - Intolerance Comments: tremors Date Reviewed: 11/28/2024 Reviewed by: Kenya Reina LPN - Fully Assessed Reason for Visit: paper work [Other] Prescriptions as of 12/03/2024 - prochlorperazine (COMPAZINE) 10 mg tablet Take 1 tablet by mouth every 8 hours as needed for nausea/vomiting. - tiZANidine (ZANAFLEX) 4 mg tablet Take 1/2 - 1 tablet oral Three times a day , PRN as needed for 30 Days - Etonogestrel-Ethinyl Estradiol (NUVARING) 0.12-0.015 mg/24 hr vaginal ring Use 1 Each vaginally as directed. INSERT ONE(1) RING VAGINALLY AND LEAVE IN PLACE FOR THREE WEEKS, THEN REMOVE FOR 1 WEEK. - SUMAtriptan (IMITREX) 100 mg tablet Take 1 tablet (100 mg) by mouth as needed. TAKE ONE (1) TABLET EVERY 2 HOURS WITH A MAXIMUM DOSE OF 200 MG PER DAY NEEDED FOR HEADACHE - escitalopram oxalate (LEXAPRO) 5 mg tablet Take 5 mg by mouth once daily. - LORazepam (ATIVAN) 0.5 mg Take 0.25 mg by mouth as needed (panic attacj). - fluticasone (FLONASE) 50 mcg/actuation nasal spray Use 2 Sprays in each nostril once daily. Rinse mouth after use. - dextromethorphan-guaiFE Nesin (MUCINEX DM) 30-600 mg per tablet Take 1 tablet by mouth two times a day. - semaglutide, weight loss, (WEGOVY) 0.25 mg/0.5 mL pen injector Inject 0.5 mL subcutaneously one time a week. - citalopram (CELEXA) 20 mg tablet Take 2 tablets by mouth once daily. - keTORolac (TORADOL) 10 mg tablet Take 1 tablet by mouth every 6 hours as needed. For up to 5 days - acetaminophen (TYLENOL 8 HOUR) 650 mg CR tablet Take 1 tablet by mouth every 8 hours as needed. - lisdexamfetamine (VYVANSE) 40 mg capsule Take 1 capsule by mouth once daily for 30 days. - cloNIDine HCl (CATAPRES) 0.1 mg tablet Take 1 tablet by mouth once daily as needed (Anxiety). Meds Comments as of 10/05/2024: 10/05 Stated this medication prescribed by psychiatry outside the [facility] Lamotrigine 50mg once day Idania Loco RN Problem List As Of Date 11/28/2024 Noted Resolved Attention deficit disorder [F98.8] 11/27/2007 Telangiectasia [I78.1] 01/27/2010 09/18/2019 Rosacea [L71.9] 01/27/2010 09/18/2019 Other acne [L70.8] 01/27/2010 09/18/2019 Depression [F32.A] 05/26/2011 09/18/2019 Tobacco use in [O99.330] 04/18/2012 10/08/2012 History of depression [Z86.59] 04/18/2012 01/01/2023 History of alcohol abuse [F10.11] 04/18/2012 01/01/2023 Family history of congenital heart defect [Z82.*04/18/2012 01/01/2023 with adoption planned [Z34.90] 04/22/2012 10/08/2012 Chlamydia infection [A74.9] 09/23/2013 09/18/2019 Routine gynecological examination [Z01.419] 12/09/2014 09/18/2019 Family history of leukemia [Z80.6] 02/04/2015 01/01/2023 Vapes nicotine containing substance [Z72.0] 09/07/2015 01/01/2023 Bulging of intervertebral disc between L4 and L*09/07/2015 Migraine without aura and without status migrai*09/07/2015 Uncomplicated asthma [J45.909] 09/07/2015 09/18/2019 Drug abuse (HCC) [F19.10] 09/10/2015 Hepatitis C [B19.20] 2018 ASCUS with positive high risk HPV cervical [R87*09/26/2019 01/01/2023 Intractable low back pain [M54.59] 04/27/2020 Urinary incontinence [R32] 04/27/2020 04/28/2020 Nicotine use disorder, F17.2 [F17.200] 04/27/2020 Mild intermittent asthma without complication [*08/03/2020 Basal cell carcinoma (BCC) of scalp [C44.41] 12/09/2020 HSIL (high grade squamous intraepithelial lesio*01/10/2022 01/01/2023 Spotting in early [O26.859] 04/13/2022 01/01/2023 Engages in vaping [Z72.89] 04/13/2022 01/01/2023 History of macrosomia in infant in prior pregna*04/13/2022 01/01/2023 Patient request for diagnostic testing [Z01.89] 04/13/2022 01/01/2023 Needle stick, hypodermic, accidental, initial e*08/14/2022 01/01/2023 Positive GBS test [B95.1] 11/06/2022 01/01/2023 Elevated glucose [R73.09] 11/06/2022 01/01/2023 (more content not included)... Normal [facility] 11-21-2024 [facility] FADUM[facility] HENS[facility] ([id number]) 1995 F Date Time Provider Department 11/21/24 KEATON TRACY [facility] During your visit today, we recorded the following information about you: Linda Farfan 11/21/2024 3:16 PM Signed Fadumo is calling Keaton Tracy MD today to request letter written for [facility] placard by Dr Tracy to be faxed to [facility] in [place]. Pt printed letter from [employer] but staff at [facility] would not accept it without a signature. Dr Reese signed it for the pt and it was faxed to the [facility] [phone] Linda Kelly Allergies As of Date: 11/21/2024 Noted Allergy Reaction ZYRTEC (CETIRIZINE HCL) 05/08/2006 5 - Intolerance Comments: tremors Date Reviewed: 10/05/2024 Reviewed by: Idania Loco RN - Fully Assessed Reason for Visit: Patient Question [1477] Prescriptions as of 11/21/2024 - prochlorperazine (COMPAZINE) 10 mg tablet Take 1 tablet by mouth every 8 hours as needed for nausea/vomiting. - tiZANidine (ZANAFLEX) 4 mg tablet Take 1/2 - 1 tablet oral Three times a day , PRN as needed for 30 Days - Etonogestrel-Ethinyl Estradiol (NUVARING) 0.12-0.015 mg/24 hr vaginal ring Use 1 Each vaginally as directed. INSERT ONE(1) RING VAGINALLY AND LEAVE IN PLACE FOR THREE WEEKS, THEN REMOVE FOR 1 WEEK. - SUMAtriptan (IMITREX) 100 mg tablet Take 1 tablet (100 mg) by mouth as needed. TAKE ONE (1) TABLET EVERY 2 HOURS WITH A MAXIMUM DOSE OF 200 MG PER DAY NEEDED FOR HEADACHE - escitalopram oxalate (LEXAPRO) 5 mg tablet Take 5 mg by mouth once daily. - LORazepam (ATIVAN) 0.5 mg Take 0.25 mg by mouth as needed (panic attacj). - fluticasone (FLONASE) 50 mcg/actuation nasal spray Use 2 Sprays in each nostril once daily. Rinse mouth after use. - dextromethorphan-guaiFE Nesin (MUCINEX DM) 30-600 mg per tablet Take 1 tablet by mouth two times a day. - semaglutide, weight loss, (WEGOVY) 0.25 mg/0.5 mL pen injector Inject 0.5 mL subcutaneously one time a week. - citalopram (CELEXA) 20 mg tablet Take 2 tablets by mouth once daily. - keTORolac (TORADOL) 10 mg tablet Take 1 tablet by mouth every 6 hours as needed. For up to 5 days - acetaminophen (TYLENOL 8 HOUR) 650 mg CR tablet Take 1 tablet by mouth every 8 hours as needed. - lisdexamfetamine (VYVANSE) 40 mg capsule Take 1 capsule by mouth once daily for 30 days. - cloNIDine HCl (CATAPRES) 0.1 mg tablet Take 1 tablet by mouth once daily as needed (Anxiety). Meds Comments as of 10/05/2024: 10/05 Stated this medication prescribed by psychiatry outside the [facility] Lamotrigine 50mg once day Idania Loco RN Problem List As Of Date 11/21/2024 Noted Resolved Attention deficit disorder [F98.8] 11/27/2007 Telangiectasia [I78.1] 01/27/2010 09/18/2019 Rosacea [L71.9] 01/27/2010 09/18/2019 Other acne [L70.8] 01/27/2010 09/18/2019 Depression [F32.A] 05/26/2011 09/18/2019 Tobacco use in [O99.330] 04/18/2012 10/08/2012 History of depression [Z86.59] 04/18/2012 01/01/2023 History of alcohol abuse [F10.11] 04/18/2012 01/01/2023 Family history of congenital heart defect [Z82.*04/18/2012 01/01/2023 with adoption planned [Z34.90] 04/22/2012 10/08/2012 Chlamydia infection [A74.9] 09/23/2013 09/18/2019 Routine gynecological examination [Z01.419] 12/09/2014 09/18/2019 Family history of leukemia [Z80.6] 02/04/2015 01/01/2023 Vapes nicotine containing substance [Z72.0] 09/07/2015 01/01/2023 Bulging of intervertebral disc between L4 and L*09/07/2015 Migraine without aura and without status migrai*09/07/2015 Uncomplicated asthma [J45.909] 09/07/2015 09/18/2019 Drug abuse (HCC) [F19.10] 09/10/2015 Hepatitis C [B19.20] 2018 ASCUS with positive high risk HPV cervical [R87*09/26/2019 01/01/2023 Intractable low back pain [M54.59] 04/27/2020 Urinary incontinence [R32] 04/27/2020 04/28/2020 Nicotine use disorder, F17.2 [F17.200] 04/27/2020 Mild intermittent asthma without complication [*08/03/2020 Basal cell carcinoma (BCC) of scalp [C44.41] 12/09/2020 HSIL (high grade squamous intraepithelial lesio*01/10/2022 01/01/2023 Spotting in early [O26.859] 04/13/2022 01/01/2023 Engages in vaping [Z72.89] 04/13/2022 01/01/2023 History of macrosomia in infant in prior pregna*04/13/2022 01/01/2023 Patient request for diagnostic testing [Z01.89] 04/13/2022 01/01/2023 Needle stick, hypodermic, accidental, initial e*08/14/2022 01/01/2023 Positive GBS test [B95.1] 11/06/2022 01/01/2023 Elevated glucose [R73.09] 11/06/2022 01/01/2023 Anemia [D64.9] 11/06/2022 01/01/2023 Abnormal glucose complicating [O99.81*11/08/2022 01/01/2023 Anemia during in third trimester [O99*11/08/2022 01/01/2023 Diet controlled gestational diabetes mellitus (*11/08/2022 01/01/2023 High grade squamous intraepithelial lesion (HGS*01/01/2023 Encounter Status:Closed by BIJAL (more content not included)... Normal [facility] CNCOon 11-20-2024 CNCO Letter Text Normal [facility] No Panel Informationon 11-19 No evidence of fract ure or traumatic malalignment. Mild degenerative change in the lower lumbar spine without significant canal stenosis. Unfused L5 spinous process/spina bifida occulta, developmental variant. MACRO: None Signed by: Chris Carrillo 11/19/2024 12:08 AM Dictation workstation: [id number] [facility] Interpreted By: Chris Carrillo, STUDY: CT LUMBAR SPINE WO IV CONTRAST; CT THORACIC SPINE WO IV CONTRAST 11/18/2024 11:09 pm INDICATION: Signs/Symptoms:fall with pain COMPARISON: Correlation made with CT abdomen pelvis 08/26/2023. ACCESSION NUMBER(S): [id number]; [id number] ORDERING CLINICIAN: HONORIO FISHER TECHNIQUE: Axial CT images of the thoracic and lumbar spine are obtained. Axial, coronal and sagittal reconstructions are provided for review. FINDINGS: Alignment: Within normal limits. Vertebrae/Disc Spaces: The vertebral body heights are intact. There is unchanged chronic right L5 pars defect without spondylolisthesis. Unfused L5 spinous process, developmental variant. T12-L1: There is no significant central canal stenosis. L1-2: There is no significant central canal or neural foraminal stenosis. L2-3: There is no significant central canal or neural foraminal stenosis. L3-4: Small disc bulge. There is no significant central canal or neural foraminal stenosis. L4-5: Small disc bulge. There is no significant central canal or neural foraminal stenosis. L5-S1: There is disc bulge with posterolateral osseous spurring contributing to mild left foraminal stenosis. No significant right foraminal stenosis. No central canal stenosis. Prevertebral/Paraspinal Soft Tissues: No evidence of paravertebral collections or retroperitoneal hematoma. Bilateral nonobstructing intrarenal calculi. 1.7 x 1.3 cm right adrenal nodule statistically most likely an adenoma. [facility] Chris Carrillo, DO - 11/19/2024 Interpreted By: Chris Carrillo, STUDY: CT LUMBAR SPINE WO IV CONTRAST; CT THORACIC SPINE WO IV CONTRAST 11/18/2024 11:09 pm INDICATION: Signs/Symptoms:fall with pain COMPARISON: Correlation made with CT abdomen pelvis 08/26/2023. ACCESSION NUMBER(S): [id number]; [id number] ORDERING CLINICIAN: HONORIO FISHER TECHNIQUE: Axial CT images of the thoracic and lumbar spine are obtained. Axial, coronal and sagittal reconstructions are provided for review. FINDINGS: Alignment: Within normal limits. Vertebrae/Disc Spaces: The vertebral body heights are intact. There is unchanged chronic right L5 pars defect without spondylolisthesis. Unfused L5 spinous process, developmental variant. T12-L1: There is no significant central canal stenosis. L1-2: There is no significant central canal or neural foraminal stenosis. L2-3: There is no significant central canal or neural foraminal stenosis. L3-4: Small disc bulge. There is no significant central canal or neural foraminal stenosis. L4-5: Small disc bulge. There is no significant central canal or neural foraminal stenosis. L5-S1: There is disc bulge with posterolateral osseous spurring contributing to mild left foraminal stenosis. No significant right foraminal stenosis. No central canal stenosis. Prevertebral/Paraspinal Soft Tissues: No evidence of paravertebral collections or retroperitoneal hematoma. Bilateral nonobstructing intrarenal calculi. 1.7 x 1.3 cm right adrenal nodule statistically most likely an adenoma. IMPRESSION: No evidence of fracture or traumatic malalignment. Mild degenerative change in the lower lumbar spine without significant canal stenosis. Unfused L5 spinous process/spina bifida occulta, developmental variant. MACRO: None Signed by: Chris Carrillo 11/19/2024 12:08 AM Dictation workstation: [id number] [facility] Work Phone: No Panel InformationOrdered By: Chris Carrillo on 11-19-2024 [facility] Work Phone: CT LUMBAR SPINE WO IV CONTRA STon 11-18-2024 CT LUMBAR SPINE WO IV CONTRAST Interpreted By: Chris Carrillo, STUDY: CT LUMBAR SPINE WO IV CONTRAST; CT THORACIC SPINE WO IV CONTRAST 11/18/2024 11:09 pm INDICATION: Signs/Symptoms:fall with pain COMPARISON: Correlation made with CT abdomen pelvis 08/26/2023. ACCESSION NUMBER(S): [id number]; [id number] ORDERING CLINICIAN: HONORIO FISHER TECHNIQUE: Axial CT images of the thoracic and lumbar spine are obtained. Axial, coronal and sagittal reconstructions are provided for review. FINDINGS: Alignment: Within normal limits. Vertebrae/Disc Spaces: The vertebral body heights are intact. There is unchanged chronic right L5 pars defect without spondylolisthesis. Unfused L5 spinous process, developmental variant. T12-L1: There is no significant central canal stenosis. L1-2: There is no significant central canal or neural foraminal stenosis. L2-3: There is no significant central canal or neural foraminal stenosis. L3-4: Small disc bulge. There is no significant central canal or neural foraminal stenosis. L4-5: Small disc bulge. There is no significant central canal or neural foraminal stenosis. L5-S1: There is disc bulge with posterolateral osseous spurring contributing to mild left foraminal stenosis. No significant right foraminal stenosis. No central canal stenosis. Prevertebral/Paraspinal Soft Tissues: No evidence of paravertebral collections or retroperitoneal hematoma. Bilateral nonobstructing intrarenal calculi. 1.7 x 1.3 cm right adrenal nodule statistically most likely an adenoma. IMPRESSION: No evidence of fracture or traumatic malalignment. Mild degenerative change in the lower lumbar spine without significant canal stenosis. Unfused L5 spinous process/spina bifida occulta, developmental variant. MACRO: None Signed by: Chris Carrillo 11/19/2024 12:08 AM Dictation workstation: [id number] [facility] CT THORACIC SPINE WO IV CONT RASTon 11-18-2024 CT THORACIC SPINE WO IV CONTRAST Interpreted By: Chris Carrillo, STUDY: CT LUMBAR SPINE WO IV CONTRAST; CT THORACIC SPINE WO IV CONTRAST 11/18/2024 11:09 pm INDICATION: Signs/Symptoms:fall with pain COMPARISON: Correlation made with CT abdomen pelvis 08/26/2023. ACCESSION NUMBER(S): [id number]; [id number] ORDERING CLINICIAN: HONORIO FISHER TECHNIQUE: Axial CT images of the thoracic and lumbar spine are obtained. Axial, coronal and sagittal reconstructions are provided for review. FINDINGS: Alignment: Within normal limits. Vertebrae/Disc Spaces: The vertebral body heights are intact. There is unchanged chronic right L5 pars defect without spondylolisthesis. Unfused L5 spinous process, developmental variant. T12-L1: There is no significant central canal stenosis. L1-2: There is no significant central canal or neural foraminal stenosis. L2-3: There is no significant central canal or neural foraminal stenosis. L3-4: Small disc bulge. There is no significant central canal or neural foraminal stenosis. L4-5: Small disc bulge. There is no significant central canal or neural foraminal stenosis. L5-S1: There is disc bulge with posterolateral osseous spurring contributing to mild left foraminal stenosis. No significant right foraminal stenosis. No central canal stenosis. Prevertebral/Paraspinal Soft Tissues: No evidence of paravertebral collections or retroperitoneal hematoma. Bilateral nonobstructing intrarenal calculi. 1.7 x 1.3 cm right adrenal nodule statistically most likely an adenoma. IMPRESSION: No evidence of fracture or traumatic malalignment. Mild degenerative change in the lower lumbar spine without significant canal stenosis. Unfused L5 spinous process/spina bifida occulta, developmental variant. MACRO: None Signed by: Chris Carrillo 11/19/2024 12:08 AM Dictation workstation: [id number] [facility] No Panel Informationon 11-18 Radiology Study observation (narrative) [facility] Work Phone: CNPNon 11-14-2024 [facility] FADUMO HENSLEY ([id number]) 1995 F Date Time Provider Department 11/14/24 [facility] During your visit today, we recorded the following information about you: Mayda Lane MA 11/14/2024 11:36 AM Signed Patient records received via electronic fax. Uploaded to [email or web address] via [employer]. Please review in scanned documents tab of chart review. Mayda Lane MA Scan on 11/13/2024 2:42 AM by Provider, VARGAS HunterC: Consultation - Orthopedics Allergies As of Date: 11/14/2024 Noted Allergy Reaction ZYRTEC (CETIRIZINE HCL) 05/08/2006 5 - Intolerance Comments: tremors Date Reviewed: 10/05/2024 Reviewed by: Idania Loco, BRIT - Fully Assessed Reason for Visit: Electronic Communication [890] Cmt: Ortho consult Prescriptions as of 11/14/2024 - prochlorperazine (COMPAZINE) 10 mg tablet Take 1 tablet by mouth every 8 hours as needed for nausea/vomiting. - tiZANidine (ZANAFLEX) 4 mg tablet Take 1/2 - 1 tablet oral Three times a day , PRN as needed for 30 Days - Etonogestrel-Ethinyl Estradiol (NUVARING) 0.12-0.015 mg/24 hr vaginal ring Use 1 Each vaginally as directed. INSERT ONE(1) RING VAGINALLY AND LEAVE IN PLACE FOR THREE WEEKS, THEN REMOVE FOR 1 WEEK. - SUMAtriptan (IMITREX) 100 mg tablet Take 1 tablet (100 mg) by mouth as needed. TAKE ONE (1) TABLET EVERY 2 HOURS WITH A MAXIMUM DOSE OF 200 MG PER DAY NEEDED FOR HEADACHE - escitalopram oxalate (LEXAPRO) 5 mg tablet Take 5 mg by mouth once daily. - LORazepam (ATIVAN) 0.5 mg Take 0.25 mg by mouth as needed (panic attacj). - fluticasone (FLONASE) 50 mcg/actuation nasal spray Use 2 Sprays in each nostril once daily. Rinse mouth after use. - dextromethorphan-guaiFE Nesin (MUCINEX DM) 30-600 mg per tablet Take 1 tablet by mouth two times a day. - semaglutide, weight loss, (WEGOVY) 0.25 mg/0.5 mL pen injector Inject 0.5 mL subcutaneously one time a week. - citalopram (CELEXA) 20 mg tablet Take 2 tablets by mouth once daily. - keTORolac (TORADOL) 10 mg tablet Take 1 tablet by mouth every 6 hours as needed. For up to 5 days - acetaminophen (TYLENOL 8 HOUR) 650 mg CR tablet Take 1 tablet by mouth every 8 hours as needed. - lisdexamfetamine (VYVANSE) 40 mg capsule Take 1 capsule by mouth once daily for 30 days. - cloNIDine HCl (CATAPRES) 0.1 mg tablet Take 1 tablet by mouth once daily as needed (Anxiety). Meds Comments as of 10/05/2024: 10/05 Stated this medication prescribed by psychiatry outside the [facility] Lamotrigine 50mg once day Idania Loco RN Problem List As Of Date 11/14/2024 Noted Resolved Attention deficit disorder [F98.8] 11/27/2007 Telangiectasia [I78.1] 01/27/2010 09/18/2019 Rosacea [L71.9] 01/27/2010 09/18/2019 Other acne [L70.8] 01/27/2010 09/18/2019 Depression [F32.A] 05/26/2011 09/18/2019 Tobacco use in [O99.330] 04/18/2012 10/08/2012 History of depression [Z86.59] 04/18/2012 01/01/2023 History of alcohol abuse [F10.11] 04/18/2012 01/01/2023 Family history of congenital heart defect [Z82.*04/18/2012 01/01/2023 with adoption planned [Z34.90] 04/22/2012 10/08/2012 Chlamydia infection [A74.9] 09/23/2013 09/18/2019 Routine gynecological examination [Z01.419] 12/09/2014 09/18/2019 Family history of leukemia [Z80.6] 02/04/2015 01/01/2023 Vapes nicotine containing substance [Z72.0] 09/07/2015 01/01/2023 Bulging of intervertebral disc between L4 and L*09/07/2015 Migraine without aura and without status migrai*09/07/2015 Uncomplicated asthma [J45.909] 09/07/2015 09/18/2019 Drug abuse (HCC) [F19.10] 09/10/2015 Hepatitis C [B19.20] 2018 ASCUS with positive high risk HPV cervical [R87*09/26/2019 01/01/2023 Intractable low back pain [M54.59] 04/27/2020 Urinary incontinence [R32] 04/27/2020 04/28/2020 Nicotine use disorder, F17.2 [F17.200] 04/27/2020 Mild intermittent asthma without complication [*08/03/2020 Basal cell carcinoma (BCC) of scalp [C44.41] 12/09/2020 HSIL (high grade squamous intraepithelial lesio*01/10/2022 01/01/2023 Spotting in early [O26.859] 04/13/2022 01/01/2023 Engages in vaping [Z72.89] 04/13/2022 01/01/2023 History of macrosomia in infant in prior pregna*04/13/2022 01/01/2023 Patient request for diagnostic testing [Z01.89] 04/13/2022 01/01/2023 Needle stick, hypodermic, accidental, initial e*08/14/2022 01/01/2023 Positive GBS test [B95.1] 11/06/2022 01/01/2023 Elevated glucose [R73.09] 11/06/2022 01/01/2023 Anemia [D64.9] 11/06/2022 01/01/2023 Abnormal glucose complicating [O99.81*11/08/2022 01/01/2023 Anemia during in third trimester [O99*11/08/2022 01/01/2023 Diet controlled gestational diabetes mellitus (*11/08/2022 01/01/2023 High grade squamous intraepithelial lesion (HGS*01/01/2023 Encounter Status:Closed by MAYDA LANE on 11/14/24 Normal [facility] Emergency Department Summary on 11-10-2024 Emergency Department Summary [facility] Medical Records Department [address] [place] [address] Emergency Department Summary 11/10/24 MR#: [id number] Acct: [id number] Name: FADUMO HENSLEY Rep #: [id number] : 1995 29 From: Gaetano Ríos DO PCP: Care Physician,No Primary Status:[facility] ER Location: ED HPI History of Present Illness Chief Complaint: Back Informant: patient Narrative Narrative: Patient is a 29-year-old female with past medical history of ADHD anxiety and depression and reported degenerative disc disease in her low back. She states that secondary to this she has recurrent back problems. She reports that she was recently hiking around [email or web address] and also drove to and from [place]. She denies any direct trauma she denies loss of bowel or bladder control or IV drug use dysuria or hematuria. She states that this feels very similar nature to her previous exacerbations of her low back pain. She states she has tried [id number] medications without symptom improvement. She reports that she typically has relief with steroids. Therefore with concern she may need prescription medication she presents for evaluation. [facility] Medical History DDD (degenerative disc disease), lumbar Wears partial dentures Substance abuse History of steroid therapy Hepatitis Vapes nicotine containing substance Gastric reflux History of pain when walking History of edema Hypotension History of Mohs micrographic surgery for skin cancer Encounter for IUD insertion MANUEL III (cervical intraepithelial neoplasia grade III) with severe dysplasia Herniated lumbar intervertebral disc Asthma depression Depression Anxiety Gestational diabetes Skin cancer ADHD Lower back pain Home Medications ???Medication ???Instructions ???Recorded ???Last Taken ???Type tizanidine 4 mg capsule 4 mg PO QHS 03/19/23 Unknown Histo ry etonogestrel 0.12 mg-ethinyl vag ring vaginal 05/22/24 Unknown History estradiol 0.015 mg/24 hr vaginal ring ondansetron 4 mg disintegrating 4 mg PO Q8H PRN PRN Nausea #10 tab s 07/07/24 Unknown Rx tablet naproxen 500 mg tablet 500 mg PO BID #14 tabs 08/06/24 Un known Rx clonidine HCl 0.1 mg tablet 0.1 mg PO BID PRN anxiety #60 tabs 08/13/24 Unknown Rx lamotrigine 25 mg tablet 50 mg (2 x 25 mg) PO QDAY #60 tabs 09/11/24 Unknown Rx lorazepam 1 mg tablet 1 mg PO BID PRN anxiety #60 tabs 0 09/11/24 Unknown Rx escitalopram oxalate 20 mg tablet 20 mg PO QDAY #30 tabs 10/17/24 U nknown Rx lisdexamfetamine 40 mg capsule 40 mg PO QAM 30 days #30 caps 09/21 03/16 Unknown Rx (Vyvanse) methocarbamol 500 mg tablet 1,000 mg (2 x 500 mg) PO 4X/DAY Unknown Rx PRN Muscle spasm/pain #56 tabs prednisone 10 mg tablet 10 mg PO UD #33 tabs 11/10/24 Unkn own Rx Allergy/AdvReac Type Severity Reaction Status Date / Time cetirizine (From [facility]) Allergy difficulty Verified 11/10/24 22:50 breathing, racing heart Family History Other Suicide Surgical History History of appendectomy Hx of wisdom tooth extraction Social History Smoking Status: Current every day smoker tobacco type: e-cigarettes alcohol intake: never details: Occasionally substance use type: does not use ROS ROS ED Constitutional Constitutional ED: Denies chills or fever(s) ENT ENT ED: Denies sore throat Cardiovascular Cardiovascular: Denies chest pain Respiratory/Chest Respiratory/Chest: Denies cough or dyspnea Gastrointestinal Gastrointestinal: Denies abdominal pain, diarrhea, nausea or vomiting Genitourinary Genitourinary ED: Denies dysuria or hematuria Musculoskeletal Musculoskeletal: Reports back pain Integumentary Denies rash Neurologic Neurologic: Denies headache(s), paresthesias or weakness Psychiatric Psychiatric: Reports anxiety Hematologic/Lymphatic Hematologic/Lymphatic: Denies easy bleeding or easy bruising EXAM Physical Exam Const Vital Signs: 11/10/24 22:48 11/10/24 23:33 Temperature 97.4 F L Temperature Source Oral Pulse Rate 96 83 Respiratory Rate 18 14 Blood Pressure 136/89 H 158/96 H Blood Pressure Mean 104 116 Pulse Ox 98 98 Oxygen Delivery Method Room Air Positive well nourished and well developed General Appearance ED: well developed HEENT HEENT Narrative: Normocephalic atraumatic Eyes PERRL and EOMs intact bilaterally General Eye ED: Negative for scleral icterus Neck supple Neck Narrative: No nuchal rigidity or meningeal signs Resp normal respiratory effort and clear to auscultation bilaterally Cardio (more content not included)... Normal [facility] MR/BMS.BPon 10-18-2024 MR/BMS.BP [address], [address] [place] [address] OFFICE VISIT Date of Service: 10/17/24 MR#: [id number] Acct: [id number] Name: FADUMO HENSLEY Rep #: [id number] : 1995 [facility] Age/Sex: 29/F Location: [facility].BP Status: Signed Intake Vital Signs 08/13/24 15:23 10/17/24 15:02 10/18/24 11:51 Height 5 ft 7 in 5 ft 6 in 5 ft 6 in BP Intake Visit Reasons: 1 W FU Allergies cetirizine (From [facility]) Allergy (Verified 10/05/24 20:27) difficulty breathing, racing heart [facility] Medical History DDD (degenerative disc disease), lumbar Wears partial dentures Substance abuse History of steroid therapy Hepatitis Vapes nicotine containing substance Gastric reflux History of pain when walking History of edema Hypotension History of Mohs micrographic surgery for skin cancer Encounter for IUD insertion MANUEL III (cervical intraepithelial neoplasia grade III) with severe dysplasia Herniated lumbar intervertebral disc Asthma depression Depression Anxiety Gestational diabetes Skin cancer ADHD Lower back pain Surgical History History of appendectomy Hx of wisdom tooth extraction Family History Other Suicide Social History Smoking Status: Current every day smoker tobacco type: e-cigarettes alcohol intake: never details: Occasionally substance use type: does not use HPI History of Present Illness HPI: Fadumo Hensley is a 29 year-old female returning for therapy. She remains off work on FMLA and symptoms and stressors remain high. Fadumo reported implementing opposite action by taking her children on an outing noting that she experienced reduced symptoms doing so. This was reinforced. She identified being unable to take action other days and remaining at home all other days. Fadumo identified stressors related to work, relationship with significant other, and finances. Encouraged verbalization of emotions while providing support. Normalized emotions. Assisted Fadumo in discussing work stressors including shift worked and new position being inconsistent with her values. Problem solved options for managing. 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 Worked on effective communication strategies as well as reframing. Worked on value-based action related to daughter's upcoming birthday and financial stressors. Explored options for managing concerns with significant other. Explored ways to continue oppositate action/behavioral activation. No reports of SI. Future-oriented. Exam Mental Status Exam - Psych Appearance casually dressed and adequately groomed Attitude cooperative, calm and engaged Activity/Motor Behavior appropriate eye contact and fidgeting Speech regular rate, regular volume and regular prosody Mood depressed and anxious Affect congruent Thought Process linear, logical, coherent and goal directed Thought Content no delusions, no hallucinations and ruminations (Related to finances, relationship with significant other, and work.) Suicidal Ideation none Homicidal Ideation none Attention impaired (Per pt. report.) Concentration impaired (Per pt. report.) Sensorium/Orientation alert and oriented x3 Memory/Cognition impaired (Per pt. report.) Insight good Judgement good Assessment Plan Assessment Plan (1) ADHD: Qualifiers: Attention deficit-hyperactivity disorder type: unspecified Qualified Code(s): F90.9 - Attention-deficit hyperactivity disorder, unspecified type Plan: BH therapy using CBT strategies to address ADHD symptoms and to teach coping skills. Psychiatric services to monitor ADHD symptoms and medication effectiveness. (2) NOAH (generalized anxiety disorder): Plan: BH therapy using CBT, DBT, and ACT interventions to address thought patterns contributing to anxious symptoms and to teach coping skills. Psychiatric services to monitor anxious symptoms and medication effectiveness. (3) MDD (major depressive disorder): Qualifiers: Major depression recurrence: recurrent Active/Remission status: currently active Major depression episode severity: moderate Qualified Code(s): F33.1 - Major depressive disorder, recurrent, moderate Plan: BH therapy using CBT, DBT, and ACT interventions to address thought patterns contributing to depressive symptoms and teach coping skills. Continued psychiatric services to monitor depressive symptoms and medication effectiveness. Pt. to call 911, call suicide prevention hotline, or go to ER if experiencing (more content not included)... [facility] MR/BMS.BPon 10-17-2024 MR/BMS.BP [facility] [address] [place] [address], [facility] [address] [place] [address] OFFICE VISIT Date of Service: 10/17/24 MR#: [id number] Acct: [id number] Name: FADUMO HENSLEY Rep #: [id number] : 1995 Provider: DIOGENES head Age/Sex: 29/F Location: [facility] Status: Signed Intake Vital Signs 09/11/24 14:22 10/05/24 20:27 10/17/24 15:02 Height 5 ft 7 in 5 ft 6 in 5 ft 6 in BP Intake Visit Reasons: 5wfu Allergies cetirizine (From [facility]) Allergy (Verified 10/05/24 20:27) difficulty breathing, racing heart [facility] Medical History DDD (degenerative disc disease), lumbar Wears partial dentures Substance abuse History of steroid therapy Hepatitis Vapes nicotine containing substance Gastric reflux History of pain when walking History of edema Hypotension History of Mohs micrographic surgery for skin cancer Encounter for IUD insertion MANUEL III (cervical intraepithelial neoplasia grade III) with severe dysplasia Herniated lumbar intervertebral disc Asthma depression Depression Anxiety Gestational diabetes Skin cancer ADHD Lower back pain Surgical History History of appendectomy Hx of wisdom tooth extraction Family History Other Suicide Social History Smoking Status: Current every day smoker tobacco type: e-cigarettes alcohol intake: never details: Occasionally substance use type: does not use HPI History of Present Illness History provided by: patient Chief complaint: Depression HPI: Fadumo Hensley is a 29 year old female patient presenting today for a virtual follow up evaluation. Does report some more recent life stressors. Does feel her levels of panic have decreased but is feeling much more depressed than before. Admits to feelings of depression that includes a lack of emotion, lack of energy, and lack of motivation. Denies SI/HI. Has not been able to get any housework completed and is also not able to go to the grocery store. Does not feel depression worsened with life stressors worsening but feels that since anxiety has decreased she has noticed more depression symptoms presenting. Does report anxiety is much reduced and is feeling anxious less than half the time and feels it has only been related to situational factors. Does report still having panic attacks a couple of times per week. Reports she has been struggling more with sleep as her daughter struggles with sleep as well. Admits to difficulties falling asleep and staying asleep. Is getting 3 hours uninterrupted and then another 2 later. Does nap when Iris naps. Appetite has been fine but has not been eating as many meals as she does not have the energy to make meals. Has been in [facility] with [facility] and feels it has been beneficial. This tele-medicine visit was performed via audio/video technology. Previous similar episode: Yes Age of first onset of symptoms: 11-20 years Review of Systems Constitutional Reports: fatigue; Denies: fever(s), chills or change in weight Eyes Denies: change in vision or blurry vision Ears, Nose, Mouth, Throat Reports: neck pain; Denies: throat pain Cardiovascular Reports: chest pain (with panic attacks) and dyspnea (with panic attacks); Denies: palpitations Respiratory Reports: dyspnea (with panic attacks); Denies: wheezing Gastrointestinal Reports: diarrhea; Denies: abdominal pain, nausea, vomiting or constipation Genitourinary Denies: dysuria, urinary frequency or urinary urgency Musculoskeletal Reports: back pain and neck pain Integumentary/Breast Denies: rash, pruritus or erythema Neurological Reports: headache(s) Psychiatric Reports: panic attacks, change in sleep pattern, loss of interest, irritability, memory loss and difficulty concentrating; Denies: anxiety, hopelessness, visual hallucinations, auditory hallucinations, suicidal ideation or homicidal ideation Endocrine Reports: fatigue Hematologic/Lymphatic Denies: easy bruising Allergic/Immunologic Denies: wheezing Exam Mental Status Exam - Psych Appearance casually dressed, adequately groomed and no apparent distress Attitude cooperative and calm Activity/Motor Behavior MSE activity/motor behavior finding no adventitious movements and appropriate eye contact Speech regular rate, regular volume and regular prosody Mood sad Affect sad Thought Process linear, logical and coherent Thought Content no delusions and no hallucinations Suicidal Ideation none Homicidal Ideation none Attention impaired (per patient self report) Concentration impaired (per patient self report) Sensorium/Lagrange (more content not included)... [facility] MR/BMS.BPon 10-12-2024 MR/BMS.BP [address], [address] [place] [address] OFFICE VISIT Date of Service: 10/10/24 MR#: [id number] Acct: [id number] Name: FADUMO HENSLEY Rep #: [id number] : 1995 [facility] Age/Sex: 29/F Location: [facility]. Status: Signed Intake Vital Signs 08/13/24 15:23 10/05/24 20:27 10/12/24 12:39 Height 5 ft 7 in 5 ft 6 in 5 ft 6 in BP Intake Visit Reasons: 1 W FU Allergies cetirizine (From [facility]) Allergy (Verified 10/05/24 20:27) difficulty breathing, racing heart [facility] Medical History DDD (degenerative disc disease), lumbar Wears partial dentures Substance abuse History of steroid therapy Hepatitis Vapes nicotine containing substance Gastric reflux History of pain when walking History of edema Hypotension History of Mohs micrographic surgery for skin cancer Encounter for IUD insertion MANUEL III (cervical intraepithelial neoplasia grade III) with severe dysplasia Herniated lumbar intervertebral disc Asthma depression Depression Anxiety Gestational diabetes Skin cancer ADHD Lower back pain Surgical History History of appendectomy Hx of wisdom tooth extraction Family History Other Suicide Social History Smoking Status: Current every day smoker tobacco type: e-cigarettes alcohol intake: never details: Occasionally substance use type: does not use HPI History of Present Illness HPI: Fadumo Hensley is a 29 year-old female returning for therapy. She reported that she continues to be off work with [employer]. She is struggling with coping and self-care. Encouraged verbalization of emotions while providing support. Normalized emotions. Discussed stressors with one sister and support from other sisters. Worked on opposite action particularly taking action and approaching vs. avoiding stressors. Problem solved ways to increase pleasureable activities in daily living. Fadumo identified wanting to leave the home to exercise at the [facility]. No reports of SI. Future-oriented. Exam Mental Status Exam - Psych Appearance casually dressed and adequately groomed Attitude cooperative and engaged Activity/Motor Behavior MSE activity/motor behavior finding no adventitious movements and appropriate eye contact Speech regular rate, regular volume and regular prosody Mood sad and anxious Affect sad and anxious Thought Process linear and coherent Thought Content no delusions and no hallucinations Suicidal Ideation none Homicidal Ideation none Attention impaired (Per pt. report.) Concentration impaired (Per pt. report.) Sensorium/Orientation alert and oriented x3 Memory/Cognition impaired (Per pt. report.) Insight good Judgement good Assessment Plan Assessment Plan (1) ADHD: Qualifiers: Attention deficit-hyperactivity disorder type: unspecified Qualified Code(s): F90.9 - Attention-deficit hyperactivity disorder, unspecified type Plan: BH therapy using CBT strategies to address ADHD symptoms and to teach coping skills. Continue appointments with prescriber to monitor ADHD symptoms and medication effectiveness. (2) NOAH (generalized anxiety disorder): Plan: BH therapy using CBT, DBT, and ACT interventions to address thought patterns contributing to anxious symptoms and to teach coping skills. Psychiatric services to monitor anxious symptoms and medication effectiveness. (3) MDD (major depressive disorder): Qualifiers: Active/Remission status: currently active Major depression episode severity: moderate Major depression recurrence: recurrent Qualified Code(s): F33.1 - Major depressive disorder, recurrent, moderate Plan: BH therapy using CBT, DBT, and ACT interventions to address thought patterns contributing to depressive symptoms and teach coping skills. Continued psychiatric services to monitor depressive symptoms and medication effectiveness. Pt. to call 911, call suicide prevention hotline, or go to ER if experiencing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 the L3-L4 and L4-L5 levels. This space narrowing and spondylosis at the L3-L4 and L4-L5 levels. Findings suggestive of a tiny calculi in the mid and lower pole regions of the right kidney. RAD/Lumbar Spine 2 or 3 Views IMPRESSION: Degenerative changes of the spine, as detailed above. Tiny calculi are seen in the right kidney as described. Electronically Signed: Tiago Gordon MD at 15:34 EST Reading Location ID and State: [address] [place] [address] , Service support , CC: Dr. Nilay Granados MD; No Primary Care Physician Car Rental Service Attendant: Signed [facility] MR/BMS.BPon 07-08-2024 MR/BMS.BP [address], [address] [place] [id number] OFFICE VISIT Date of Service: 07/08/24 MR#: [id number] Acct: [id number] Name: FDAUMO HENSLEY Rep #: [id number] : 1995 Provider: DIOGENES head Age/Sex: 28/F Location: [facility].BP Status: Signed Intake Vital Signs 05/22/24 13:25 07/07/24 19:49 07/08/24 14:07 Height 5 ft 7 in 5 ft 7 in 5 ft 7 in BP Intake Visit Reasons: follow up Allergies cetirizine (From [employer]te) Allergy (Verified 05/22/24 13:29) difficulty breathing, racing heart [facility] Medical History DDD (degenerative disc disease), lumbar Wears partial dentures Substance abuse History of steroid therapy Hepatitis Vapes nicotine containing substance Gastric reflux History of pain when walking History of edema Hypotension History of Mohs micrographic surgery for skin cancer Encounter for IUD insertion MANUEL III (cervical intraepithelial neoplasia grade III) with severe dysplasia Herniated lumbar intervertebral disc Asthma depression Depression Anxiety Gestational diabetes Skin cancer ADHD Lower back pain Surgical History History of appendectomy Hx of wisdom tooth extraction Family History Other Suicide Social History Smoking Status: Current every day smoker tobacco type: e-cigarettes alcohol intake: never details: Occasionally substance use type: does not use HPI History of Present Illness History provided by: patient Chief complaint: Anxiety HPI: Fadumo Hensley is a 28 year old female patient presenting today for a virtual follow up evaluation. Reports she and her daughter are both currently ill but recovering. Admits to feelings of depression daily but reports it being situation with finding out about her fiance having an affair. Patient is currently in individual counseling as well as couples counseling to attempt to mend her relationship. Patient is interested in transitioning to a new therapist as she would like to be seen more frequently and her current therapist does not have availability. Admits to feelings of anxiety all the time and feeling like her heart is racing and she is going to have a panic attack more than half the time. Does feel even when she is not having elevated anxiety it only takes something small to get her there. Has not been sleeping well. 6 hours per night but wakes up frequently. Appetite has been poor related to stress. Denies SI/HI. This tele-medicine visit was performed via audio/video technology. Previous similar episode: Yes Age of first onset of symptoms: 11-20 years Review of Systems Constitutional Reports: fatigue; Denies: fever(s), chills or change in weight Eyes Denies: change in vision or blurry vision Ears, Nose, Mouth, Throat Reports: neck pain; Denies: throat pain Cardiovascular Reports: chest pain (with panic attacks) and dyspnea (with panic attacks); Denies: palpitations Respiratory Reports: dyspnea (with panic attacks); Denies: wheezing Gastrointestinal Reports: diarrhea; Denies: abdominal pain, nausea, vomiting or constipation Genitourinary Denies: dysuria, urinary frequency or urinary urgency Musculoskeletal Reports: back pain and neck pain Integumentary/Breast Denies: rash, pruritus or erythema Neurological Reports: headache(s) Psychiatric Reports: anxiety, panic attacks, change in sleep pattern, irritability, memory loss and difficulty concentrating; Denies: hopelessness, loss of interest, visual hallucinations, auditory hallucinations, suicidal ideation or homicidal ideation Endocrine Reports: fatigue Hematologic/Lymphatic Denies: easy bruising Allergic/Immunologic Denies: wheezing Exam Mental Status Exam - Psych Appearance casually dressed, adequately groomed and no apparent distress Attitude cooperative and calm Activity/Motor Behavior MSE activity/motor behavior finding no adventitious movements and appropriate eye contact Speech regular rate, regular volume and regular prosody Mood OK and anxious Affect anxious Thought Process linear, logical and coherent Thought Content no delusions and no hallucinations Suicidal Ideation none Homicidal Ideation none Attention impaired (per patient self report) Concentration impaired (per patient self report) Sensorium/Orientation awake, alert and oriented x3 Memory/Cognition impaired (per patient self report) Insight good Judgement good Exam Constitutional Common normals: no acute distress, average body habitus and patient oriented x3 General appearance: anxious Neuro Common normals: patient oriented x3 (more content not included)... Normal [facility] CBC W/Diff, Automatedon 12- Absolute Lymph 0.59 X10 3/uL Low 0.83-4.[address] [facility] Comment on above: Performed By: #### L 501.2450, L500.4050, L100.0100 ####[facility] [address] [place], [address] Absolute Neut 7.4 X10 3/uL Normal 2.0-7.[address] [facility] Comment on above: Performed By: #### L 501.2450, L500.4050, L100.0100 ####[facility] [address] [place], [address] Basophils/100 WBC (Bld) 0.1 % Normal 0-[address] [facility] Comment on above: Performed By: #### L 501.2450, L500.4050, L100.0100 ####[facility] [address] [place], [address] Eosinophils/100 WBC (Bld) 0.4 % Normal 0-[address] [facility] Comment on above: Performed By: #### L 501.2450, L500.4050, L100.0100 ####[facility] [address] [place], [address] Erythrocyte distribution width (RBC) [Ratio] 11.4 % Low 11.6-14.[address] [facility] Comment on above: Performed By: #### L 501.2450, L500.4050, L100.0100 ####[facility] [address] [place], [address] Hematocrit (Bld) [Volume fraction] 39.1 % Normal 37-[address] [facility] Comment on above: Performed By: #### L 501.2450, L500.4050, L100.0100 ####[facility] [address] [place], [address] Hemoglobin (Bld) [Mass/Vol] 13.6 g/dL Normal 12.0-15.[address] [facility] Comment on above: Performed By: #### L 501.2450, L500.4050, L100.0100 ####[facility] [address] [place], [address] IG% 0.500 Normal 0.0-0.[address] [facility] Comment on above: Result Comment: IG% - Immature Granulocytes (promyelocytes, myelocytes and metamyelocytes) > 1% indicates that a LEFT SHIFT is Present. Performed By: #### L 501.2450, L500.4050, L100.0100 ####[facility] [address] [place], [address] Lymphocytes/100 WBC (Bld) 6.9 % Low 19-[address] [facility] Comment on above: Performed By: #### L 501.2450, L500.4050, L100.0100 ####[facility] [address] [place], [address] MCH (RBC) [Entitic mass] 30.9 pg Normal 27.0-32.[address] [facility] Comment on above: Performed By: #### L 501.2450, L500.4050, L100.0100 ####[facility] [address] [place], [address] MCHC (RBC) [Mass/Vol] 34.8 g/dL Normal 32-36 [facility] Comment on above: Performed By: #### L 501.2450, L500.4050, L100.0100 ####[facility] [address] [place], [address] MCV (RBC) [Entitic vol] 88.9 fL Normal 81-[address] [facility] Comment on above: Performed By: #### L 501.2450, L500.4050, L100.0100 ####[facility] [address] [place], [address] Monocytes/100 WBC (Bld) 5.6 % Normal 0-[address] [facility] Comment on above: Performed By: #### L 501.2450, L500.4050, L100.0100 ####[facility] [address] [place], [address] Neutrophils/100 WBC (Bld) 86.5 % High 47-[address] [facility] Comment on above: Performed By: #### L 501.2450, L500.4050, L100.0100 ####[facility] [address] [place], [address] Nucleated RBC (Bld) [#/Vol] 0 10*3/uL Normal 0-[address] [facility] Comment on above: Performed By: #### L 501.2450, L500.4050, L100.0100 ####[facility] [address] [place], [address] Platelet mean volume (Bld) [Entitic vol] 10.2 fL Normal 6.2-12.[address] [facility] Comment on above: Performed By: #### L 501.2450, L500.4050, L100.0100 ####[facility] [address] [place], [address] Platelets (Bld) [#/Vol] 220 10*3/uL Normal 150-[address] [facility] Comment on above: Performed By: #### L 501.2450, L500.4050, L100.0100 ####[facility] [address] [place], [address] RBC (Bld) [#/Vol] 4.40 10*6/uL Normal 4.2-5.4 [facility] Comment on above: Performed By: #### L 501.2450, L500.4050, L100.0100 ####[facility] [address] [place], [address] RDW SD 36.8 fl Normal 35.1-43.[address] [facility] Comment on above: Performed By: #### L 501.2450, L500.4050, L100.0100 ####[facility] [address] [place], [address] WBC (Bld) [#/Vol] 8.6 10*3/uL Normal 4.4-11.0 [facility] Comment on above: Performed By: #### L 501.2450, L500.4050, L100.0100 ####[facility] [address] [place], [address] Comprehensive Metabolic Prof ilon 07-07-2024 Albumin [Mass/Vol] 3.4 g/dL Normal 3.2-5.0 [facility] Comment on above: Performed By: #### L 501.2450, L500.4050, L100.0100 ####[facility] [address] [place], [address] Albumin/Globulin [Mass ratio] 0.9 {ratio} Normal 0.9-2.[address] [facility] Comment on above: Performed By: #### L 501.2450, L500.4050, L100.0100 ####[facility] [address] [place], [address] ALK P 98 U/L Normal 45-[address] [facility] Comment on above: Performed By: #### L 501.2450, L500.4050, L100.0100 ####[facility] [address] [place], [address] ALT [Catalytic activity/Vol] 40 U/L Normal 13-[address] [facility] Comment on above: Performed By: #### L 501.2450, L500.4050, L100.0100 ####[facility] [address] [place], [address] AST [Catalytic activity/Vol] 20 U/L Normal 15-[address] [facility] Comment on above: Performed By: #### L 501.2450, L500.4050, L100.0100 ####[facility] [address] [place], [address] Bilirubin [Mass/Vol] 1.50 mg/dL High 0.20-1.00 [facility] Comment on above: Result Comment: For patients on eltrombopag therapy, use of Dimension Mcneal TBIL is not recommended. Performed By: #### L 501.2450, L500.4050, L100.0100 ####[facility] [address] [place], [address] BUN/CRE 10.5 RATIO Normal 10-[address] [facility] Comment on above: Performed By: #### L 501.2450, L500.4050, L100.0100 ####[facility] [address] [place], [address] CA,Total 8.6 mg/dL Normal 8.5-10.[address] [facility] Comment on above: Performed By: #### L 501.2450, L500.4050, L100.0100 ####[facility] [address] [place], [address] Chloride [Moles/Vol] 107 mmol/L Normal 98-107 [facility] Comment on above: Performed By: #### L 501.2450, L500.4050, L100.0100 ####[facility] [address] [place], [address] CO2 [Moles/Vol] 23.0 mmol/L Normal 21.0-32.[address] [facility] Comment on above: Performed By: #### L 501.2450, L500.4050, L100.0100 ####[facility] [address] [place], [address] Creatinine [Mass/Vol] 0.76 mg/dL Normal 0.55-1.02 [facility] Comment on above: Result Comment: The validity of the calculated GFR GFRAA in patients over 70 years has not been determined. Clinical correlation is essential. Performed By: #### L 501.2450, L500.4050, L100.0100 ####[facility] [address] [place], [address] ECRCL 125.35 ml/min Normal [facility] Comment on above: Performed By: #### L 501.2450, L500.4050, L100.0100 ####[facility] [address] [place], [address] EST GFR - AA 114 mL/min Normal >[address] [facility] Comment on above: Result Comment: Afri can [place] GFR Calc Performed By: #### L 501.2450, L500.4050, L100.0100 ####[facility] [address] [place], [address] GAP 8 Normal 5-[address] [facility] Comment on above: Performed By: #### L 501.2450, L500.4050, L100.0100 ####[facility] [address] [place], [address] GFR/1.73 sq M.predicted among non-blacks MDRD (S/P/Bld) [Vol rate/Area] 95 mL/min/{1.73_m2} Normal >[address] [facility] Comment on above: Result Comment: Non- GFR Calc Performed By: #### L 501.2450, L500.4050, L100.0100 ####[facility] [address] [place], [address] Globulin (S) [Mass/Vol] 3.8 g/dL Normal 2.2-4.[address] [facility] Comment on above: Performed By: #### L 501.2450, L500.4050, L100.0100 ####[facility] [address] [place], [address] Glucose [Mass/Vol] 93 mg/dL Normal 74-106 [facility] Comment on above: Performed By: #### L 501.2450, L500.4050, L100.0100 ####[facility] [address] [place], [address] Potassium [Moles/Vol] 3.5 mmol/L Normal 3.5-5.1 [facility] Comment on above: Performed By: #### L 501.2450, L500.4050, L100.0100 ####[facility] [address] [place], [address] Sodium [Moles/Vol] 138 mmol/L Normal 136-145 [facility] Comment on above: Performed By: #### L 501.2450, L500.4050, L100.0100 ####[facility] [address] [place], [address] T PROT 7.2 g/dL Normal 6.4-8.[address] [facility] Comment on above: Performed By: #### L 501.2450, L500.4050, L100.0100 ####[facility] [address] [place], [address] Urea nitrogen [Mass/Vol] 8 mg/dL Normal 7-[address] [facility] Comment on above: Performed By: #### L 501.2450, L500.4050, L100.0100 ####[facility] [address] [place], [address] Emergency Department Summary on 07-07-2024 Emergency Department Summary [facility] Medical Records Department [address] [place] [address] Emergency Department Summary 07/07/24 MR#: [id number] Acct: [id number] Name: FADUMO HENSLEY Rep #: [id number] : 1995 28 From: Jamal Hawley DO PCP: Care Physician,No Primary Status:DEP ER Location: ED HPI History of Present Illness Chief Complaint: Abd Pain Narrative Narrative: Chief complaint and HPI: Nausea and vomiting. 28-year-old female presents for evaluation of nausea, vomiting, body aches. Patient states that she was recently around family members who had the stomach bug. She states 2 days ago her daughter had developed the same symptoms with nausea, vomiting, diarrhea. Patient states that she woke up this morning with nausea, vomiting, diarrhea. Decreased p.o. intake secondary to symptoms. Has been taking Tylenol. Associated symptom is fever and bodyaches. She denies any URI symptoms, cough, chest pain, shortness of breath, dysuria. Review of systems: See HPI Medications: As listed on the chart Allergies: As listed on the chart PFSH: Per chart Vital signs: As listed on the chart. Reviewed. Physical exam: Gen: A O x3, NAD Head: Normocephalic, atraumatic Eyes: No sclera icterus, conjunctiva clear ENT: Mildly dry mucous membranes Neck: Trachea midline, No JVD CV: RRR, no murmurs, no peripheral edema Resp: Lungs CTA BL, no w/r/c GI: Abd soft, non-distended, non-tender, no r/r/g Musc: Full ROM, no deformity Skin: Warm, dry Neuro: Alert, oriented, grossly intact, sensation intact Psych: Cooperative, appropriate mood and affect [facility] Medical History DDD (degenerative disc disease), lumbar Wears partial dentures Substance abuse History of steroid therapy Hepatitis Vapes nicotine containing substance Gastric reflux History of pain when walking History of edema Hypotension History of Mohs micrographic surgery for skin cancer Encounter for IUD insertion MANUEL III (cervical intraepithelial neoplasia grade III) with severe dysplasia Herniated lumbar intervertebral disc Asthma depression Depression Anxiety Gestational diabetes Skin cancer ADHD Lower back pain Home Medications ???Medication ???Instructions ???Recorded ???Last Taken ???Type tizanidine 4 mg capsule 4 mg PO QHS 03/19/23 Unknown History clonidine HCl 0.1 mg tablet 0.1 mg PO BID PRN anxiety #60 tabs 05/21/24 Unknown Rx citalopram 10 mg tablet 10 mg PO DAILY #14 tabs 05/22/24 Unknown Rx escitalopram oxalate 10 mg tablet 10 mg PO QDAY #30 tabs 05/22/24 Unknown Rx etonogestrel 0.12 mg-ethinyl vag ring vaginal 05/22/24 Unknown History estradiol 0.015 mg/24 hr vaginal ring lisdexamfetamine 40 mg capsule 40 mg PO QAM 30 days #30 caps 07/04/24 Unknown Rx (Vyvanse) lorazepam 0.5 mg tablet 0.5 mg PO BID PRN anxiety #60 tabs 07/04/24 Unknown Rx ondansetron 4 mg disintegrating 4 mg PO Q8H PRN PRN Nausea #10 tabs 07/07/24 Unknown Rx tablet Allergy/AdvReac Type Severity Reaction Status Date / Time cetirizine (From [facility]) Allergy difficulty Verified 05/22/24 13:29 breathing, racing heart Family History Other Suicide Surgical History History of appendectomy Hx of wisdom tooth extraction Social History Smoking Status: Current every day smoker tobacco type: e-cigarettes alcohol intake: never details: Occasionally substance use type: does not use EXAM Physical Exam Const Vital Signs: 07/07/24 19:49 07/07/24 23:00 Temperature 97.8 F Temperature Source Temporal Pulse Rate 102 H 99 Respiratory Rate 20 H 24 H Blood Pressure 106/64 116/56 L Blood Pressure Mean 78 76 Pulse Ox 100 98 Oxygen Delivery Method Room Air Room Air MDM MDM MDM Narrative Medical decision making narrative: 28-year-old female presents for evaluation of nausea, vomiting, diarrhea, body aches. Daughter had similar symptoms as well as family members. Differential diagnosis includes but is not limited to viral syndrome, electrolyte abnormality, dehydration, SUSIE, influenza, COVID-19 infection. Suspect less likely pancreatitis, cholecystitis, UTI, . NS bolus, Zofran, Toradol ordered for symptoms. Laboratory workup ordered including urine. CBC unremarkable without leukocytosis or anemia. CMP unremarkable without SUSIE or transaminitis. Lipase unremarkable. UA negative for UTI. negative. COVID, influenza, RSV negative. Patient's symptoms are likely secondary to viral etiology. On reevaluation, patient's nausea has improved still endorsing body aches. Patient took Tylenol prior to arrival. (more content not included)... Normal [facility] Lipaseon 07-07-2024 Lipase [Catalytic activity/Vol] 18 U/L Normal 13-[address] [facility] Comment on above: Result Comment: Nuria ham note: LIPASE revised reference range effective 22. New Lipase methodology. Expected to produce lower values than the previous assay method. NEW Reference Range: 13 - 75 U/L Performed By: #### L 501.2450, L500.4050, L100.0100 ####[facility] [address] [place], [address] M100.678on 07-07-2024 M100.678 Pending SARS-CoV-2 (COVID 19) Negative INFLUENZA A Negative INFLUENZA B Negative RSV PCR Negative Normal [facility] Comment on above: Performed By: #### L 400.7600, L400.0001, M100.678 ####[facility] [address] [place], [address] ,Urineon 07-07-2024 Beta HCG ( test) Ql (U) Negative Normal [facility] Comment on above: Order Comment: CLEAN CATCH Result Comment: Very dilute urine specimens, as indicated by a low specific gravity, may not contain artist representative levels of hCG. If is still suspected, a first morning urine specimen should be collected 48 hours later and tested. Performed By: #### L 400.7600, L400.0001, M100.678 ####[facility] [address] [place], [address] Urinalysis, Completeon 07-07 BACTERIA 1+ /hpf Normal None Seen [facility] Comment on above: Order Comment: CLEAN CATCH Performed By: #### L 400.7600, L400.0001, M100.678 ####[facility] [address] [place], [address] EPI,SQUAMOUS 0-5 SEEN Normal 5-[address] [facility] Comment on above: Order Comment: CLEAN CATCH Performed By: #### L 400.7600, L400.0001, M100.678 ####[facility] [address] [place], [address] Mucus Ql (Urine sed) 1+ /hpf Normal [facility] Comment on above: Order Comment: CLEAN CATCH Performed By: #### L 400.7600, L400.0001, M100.678 ####[facility] [address] [place], [address] RBC 0-5 SEEN Normal 0-[address] [facility] Comment on above: Order Comment: CLEAN CATCH Performed By: #### L 400.7600, L400.0001, M100.678 ####[facility] [address] [place], [place], [address] WBC 0-5 SEEN Normal 0-[address] [facility] Comment on above: Order Comment: CLEAN CATCH Performed By: #### L 400.7600, L400.0001, M100.678 ####[facility] [address] [place], [address] CNOVon 06-24-2024 CNOV Office Visit (OBGYWM ) MADDIE HENSLEYROSEMARIE Hardy ([id number]) 1995 F Date Time Provider Department 06/24/24 3:20 PM CARMELITA MILLAN OBGYWM During your visit today, we recorded the following information about you: Blood pressure Weight Last Period 87.1 kg 06/23/24 Carmelita Millan MD 06/24/2024 4:01 PM Signed Fadumo is a 28 year old Female who presents today for an endometrial biopsy for zena. test: negative UNIVERSAL PROTOCOL / SAFETY CHECKLIST Procedure to be Performed: EMB and colposcopy with possible biopsies Fadumo is a 28 year old Female who presents today for a colposcopy. The patient's last pap smear was ZENA from April 2024. Patient has a history of abnormal pap: Yes. The patient has had prior treatment: LEEP. test: negative PROCEDURE: EXTERNAL GENITALIA: Normal in appearance without lesions VAGINA: Normal in appearance without lesions CERVIX: Speculum placed in vagina and excellent visualization of cervix achieved. Cervix swabbed x 3 with 3% acetic acid solution. Cervix grossly normal. Squamocolumnar junction visualized. acetowhite changes noted light AW 6 oclock, vaginal tissue up to edge of cervix, punctations noted -none, mosaicism noted -none, and atypical vasculature noted none. BIOPSY: Done at 6:00 and 12:00 EMB-done in usual sterile fashion after cleansing cervix w/ betadine and uterus sounded to 9 cm. ECC: done HEMOSTASIS: Obtained with silver nitrate and pressure Procedure Summary: Patient tolerated procedure well and colposcopy was adequate. ASSESSMENT: ZENA pap PLAN: Specimens labeled and sent to Pathology. Will notify patient of results in 1-2 weeks. Post-procedure instructions reviewed and written material given to the patient. If indicated, lesion by colpo is not amenable to office LEEP. MD Soo Mccarthy [place], [place] 06/24/2024 3:22 PM Signed YOUR RECOVERY It may take a few weeks for your cervix to heal. While your cervix heals, you may have: - Vaginal bleeding (less than a normal menstrual period) - Mild cramping - A brown-black vaginal discharge (similar to coffee grounds) which is a result of the paste used to help stop bleeding from the procedure Do NOT put anything in the vagina for 1 week after your colposcopy if your doctor does a biopsy of your cervix. This includes sex, tampons, and douches. If you have any discomfort, you may take an over the counter pain medication (motrin, advil, ibuprofen, tylenol, etc). If this does not relieve your discomfort, contact your doctor's office for a prescription strength pain medication. It is okay to wear a sanitary pad until the discharge and spotting stops. RISKS Although problems seldom occur with colposcopy, there can be some complications. You may feel faint during and shortly after the procedure as well as have some bleeding and vaginal discharge after the procedure. There is also a risk of infection after the procedure. These complications are rare and can be easily treated. You should contact you doctor is you have any of the following: - Heavy bleeding (more than your normal period) - Bleeding with clots - Severe abdominal pain - Fever (more than 100.4F) - Foul smelling vaginal discharge RESULTS If a biopsy was taken, we will have the results of your biopsy in 1-2 weeks. If you do not hear the results of your biopsy after 2 weeks, please contact your physicians office for the results. Depending on the biopsy results, your doctor will determine your follow up plan which may include further testing or treatments. STAYING HEALTHY After the procedure, you will need to see your doctor for follow up visits during the year. At these visits your doctor will check the health of your cervix with a pap smear. After three normal pap smears, your doctor will allow you to return to having exams once a year. If you have another abnormal pap smear, you may need closer follow up for longer or you may need additional treatment. By making a few lifestyle changes after the procedure, you can help protect the health of your cervix: - Have regular pelvic exams and pap smears as ordered by your doctor. - Stop smoking as smoking increases your risk of developing a cancer of the cervix - If you have more than one sexual partner, limit your number of partners and use condoms to reduce your risks of STDs. If you have any additional questions, please contact your doctor's office. Referring Provider: ANGELA HQA [[id number]] Allergies As of Date: 06/24/2024 Noted Allergy Reaction ZYRTEC (CETIRIZINE HCL) 05/08/2006 5 - Intolerance Comments: tremors Date Reviewed: 05/27/2024 Reviewed by: Maude Bailey APRN.QUANTITATIVE ANALYST MARKETING - Fully Assessed Reason for Visit: Endometrial Biopsy [7501] Colposcopy [1551] Primary Visit Diagnosis:Atypical glandular cells of undetermined significa (more content not included)... Normal [facility] SURGICAL PATHOLOGYon CASE REPORT Normal [facility] Comment on above: Order Comment: Speci men Type: TISSUE SPECIMEN Ordering Facility: [facility] Address: [address] [place] [address] Result Comment: Surg ica Pathology Report Case: [id number] Authorizing Provider: Carmelita Millan MD Collected: 06/24/2024 04:06 PM Ordering Location: OB/Gynecology Received: 06/24/2024 04:44 PM Pathologist: Kylee Cullen MD Specimens: A) - Endometrium, Biopsy B) - Endocervix, Curettings C) - Cervix, Biopsy, 6 and 12 oclock Performed By: #### S #### [facility] CLIA [id number] [address] [place] [address] [place] [address] [place] CLINICAL HISTORY ZENA [facility] Comment on above: Order Comment: Speci men Type: TISSUE SPECIMEN Ordering Facility: [facility] Address: [address] [place] [address] Performed By: #### S #### [facility] CLIA [id number] [address] [place] [address] [place] FINAL DIAGNOSIS Normal [facility] Comment on above: Order Comment: Speci men Type: TISSUE SPECIMEN Ordering Facility: [facility] Address: [address] [place] [address] Result Comment: A. E ndometrium, biopsy: -Inactive to weakly proliferative pattern endometrium with breakdown and mild stromal changes suggestive of progestin effect. -Endocervical and transformation zone mucosa with inflammation and reactive changes. B. Endocervix, curettage: -Squamous mucosa with inflammation and reactive changes. -Endocervical epithelium is not present for evaluation. C. Cervix, 6 and 12 o'clock, biopsies: -Squamous mucosa with inflammation and reactive changes. Performed By: #### S #### [facility] CLIA [id number] [address] [place] [address] [place] FINAL PERFORMING LAB Normal [facility] Comment on above: Order Comment: Speci men Type: TISSUE SPECIMEN Ordering Facility: [facility] Address: [address] [place] [address] Result Comment: Diag nostic interpretation performed at [facility], [address] [place] [address] CLIA# [id number] Employee Adviser: Donavon Chin M.D. Performed By: #### S #### [facility] CLIA [id number] [address] [place] [address] [place] GROSS DESCRIPTION Normal [facility] Comment on above: Order Comment: Speci men Type: TISSUE SPECIMEN Ordering Facility: [facility] Address: [address] [place] [address] Result Comment: A. E ndometrium, Biopsy Received in formalin are multiple red-brown, soft feathery segments of tissue aggregating to 2.0 x 1.0 x 0.3 cm. Totally submitted in one cassette. B. Endocervix, Curettings Received in formalin are multiple falk, soft feathery segments of tissue aggregating to 0.5 x 0.2 x 0.1 cm. Totally submitted in one cassette. May not survive processing. C. Cervix, Biopsy Received in formalin are two pieces of falk, soft mucosal covered tissue aggregating to 0.7 x 0.2 x 0.2 cm. Totally submitted in one cassette. SS June 25, 2024 12:43 AM Gross examination performed at [facility], [address] [place], [place] [address], [place] [address] Performed By: #### S #### [facility] CLIA [id number] [address] [place] [address] [place] [address] [place] UA DIP,URINE HCG (POC)on Beta HCG ( test) Ql (U) Negative Negative [facility] Comment on above: Location:[facility], [address], [place], [address] Professional Driver (POCT) Internal QC [facility] Location:[facility], [facility] [address], [place], [address] [facility] POINT OF CARE [facility] CNOVon 05-27-2024 CNOV Office Visit (UCWSTR ) FADUMO HENSLEY ([id number]) 1995 F Date Time Provider Department 05/27/24 1:15 PM MAUDE BAILEY WAN During your visit today, we recorded the following information about you: Temperature Pulse Respiration Blood pressure 97.4 degrees 105/minute 18/minute 108/74 Weight Last Period 86 kg 05/27/24 Maude Bailey APRN.QUANTITATIVE ANALYST MARKETING 05/27/2024 1:09 PM Addendum (J02.9) Sore throat (primary encounter diagnosis) Plan: STREP A MOLECULAR (POC), COVID AND INFLUENZA A/B AND RSV PCR, ROUTINE (J06.9) Viral upper respiratory tract infection with cough Plan: fluticasone (FLONASE) 50 mcg/actuation nasal spray, COVID AND INFLUENZA A/B AND RSV PCR, ROUTINE, dextromethorphan-guaiFE Nesin (MUCINEX DM) 30-600 mg per tablet Education on viral vs bacterial infections. Most viral infections will last 10 days, sometimes 14. It is possible to have back to back viral infections. An antibiotic will not treat a virus. -Negative strep culture. -Covid/flu/rsv test for rule out, results in 24 hours, isolation in the interim. Result to mychart. -Mucinex dm. -Drink lots of fluids and get plenty of rest. -Vaporizers, cool mist humidifiers, warm showers, and warm fluids help open respiratory and sinus passages. Clean humidifiers daily. -OTC tylenol as directed on the bottle. -Saline nasal spray as needed. Flonase twice daily can help reduce inflammation through the sinus cavities. -Cough/deep breathing education, promote clearing of the airways and good lung expansion. -Make follow up with primary care for monitoring and resolution in symptoms. -Signs that warrant an ER evaluation: Sudden change/worsening in condition, lethargy, signs of dehydration, fever greater than 102 F that is not responding to Tylenol or ibuprofen (Motrin, Advil), drooling, difficulty swallowing, difficulty breathing, shortness of breath, chest pain, evidence of airway compromise (tripod position, neck extension, retractions), seizures, changes in mental status, or other concerns. Maude Bailey APRN.ANISHA 05/27/2024 1:29 PM Signed This note was created using [employer]ITY Mobiler[employer]. Subjective Fadumo Hensley is a 28 year old female. HPI by patient: Fadumo Hensley is a 28 year old presenting to the office with the complaint of viral symptoms. Started approximately 3 days ago. Associated symptoms include cough, congestion, body aches, fatigue, and sore throat. Denies gi symptoms. Covid Immunization Dates Overdue - Covid-19 Vaccine ( season) Overdue since 03/23/2024 09/03/2023 Imm Admin: COVID-19 vaccine, age 12+ yr, season (PFIZER-BIONTECH) 08/03/2022 Postponed until 08/03/2023 by Jocelyne Soliman LPN (Declined at this time) 07/06/2021 Imm Admin: COVID-19 original vaccine, age 12+ yr, monovalent (PFIZER-BIONTECH - PURPLE TOP) Sick contacts: yes. Smoking history/second hand smoke: none. OTC not helping. No antibiotic use in the last 60 days. ALLERGIES Zyrtec [Cetirizine * Intolerance Comment:tremors Family History Reviewed Including Cardiac Diseases, Psychiatric Diseases, AND Substance Abuse Problem: Skin Cancer Relation: Mother Age of Onset: (Not Specified) Problem: Hypertension Relation: Mother Age of Onset: (Not Specified) Problem: Heart Failure Relation: Mother Age of Onset: (Not Specified) Problem: Liver Cancer Relation: Mother Age of Onset: 66 Problem: Heart Relation: Father Age of Onset: (Not Specified) Comment: TRIPLE BYPASS SURGERY Problem: Hypertension Relation: Father Age of Onset: (Not Specified) Problem: Diabetes Relation: Father Age of Onset: (Not Specified) Problem: Diabetes Relation: Sister Age of Onset: (Not Specified) Problem: No Known Problems Relation: Sister Age of Onset: (Not Specified) Problem: No Known Problems Relation: Sister Age of Onset: (Not Specified) Problem: No Known Problems Relation: Brother Age of Onset: (Not Specified) Problem: No Known Problems Relation: Brother Age of Onset: (Not Specified) Problem: No Known Problems Relation: Brother Age of Onset: (Not Specified) Problem: Heart Relation: Maternal Grandmother Age of Onset: (Not Specified) Comment: from heart problems Problem: Heart Relation: Maternal Grandfather Age of Onset: (Not Specified) Comment: from heart problems Problem: Cancer Relation: Maternal Grandfather Age of Onset: (Not Specified) Comment: lung Problem: Hypertension Relation: Maternal Grandfather Age of Onset: (Not Specified) Problem: No Known Problems Relation: Daughter Age of Onset: (Not Specified) Social History Tobacco Use Smoking status: Former Packs/day: 1.00 Years: 1 pack/day for 9.0 years (9.0 ttl pk-yrs) Types: Cigarettes Smokeless tobacco: Current Tobacco comments: Vapes Vaping Use Vaping status: current everyday user Substances: Nicotin (more content not included)... Normal [facility] COVID AND INFLUENZA A/B AND RSV PCR, ROUTINEon 05-27-2024 SARS-CoV-2 (COVID-19) RNA JESSICA+probe Ql (Unsp spec) SARS-COV-2 (AGENT OF COVID-19) RNA: Not detected INFLUENZA A RNA: Not detected INFLUENZA B RNA: Not detected RESPIRATORY SYNCYTIAL VIRUS (RSV) RNA: Not detected Normal [facility] Comment on above: Performed By: #### C VFLRS ####[facility] [id number] [address] [place] STREP A MOLECULAR (POC)on Procedural Control Valid [facility] Strep A (POCT) Negative Negative [facility] CNPMulu 05-26-2024 CNPN Telephone (OBGYWM) FADUMO HENSLEY ([id number]) 1995 F Date Time Provider Department 05/26/24 ANGELA HAQ OBFRANSISCOWCorie During your visit today, we recorded the following information about you: Angela Haq APRN.CNP 05/26/2024 12:33 PM Signed Pap atypical glandular cells, HPV neg. She will need another colp this year. Order filed. Angela Haq APRN.Aliyah Armando RN 05/26/2024 2:00 PM Signed Patient notified. Scheduled colp 06/24. Asking if she can have something to relax her prior to the procedure because they are painful. Aware she would need a public transit trolley driver and that RR returns tomorrow. BRIT Patel Rebecca L, MD 05/26/2024 2:37 PM Signed And EMB/ECC. Rx sent. Can take 1/2 tablet and 30 min take rest if desires. MD Monty Mccarthy, Carmelita Hardy MD 05/26/2024 3:44 PM Signed my apologies, thought I sent tablet. Corrected. MD Clinton Mccarthy Tara, RN 05/26/2024 3:56 PM Signed Pt states she has adverse reaction to Atarax-states she gets opposite reaction to this medication. States she has an Rx for Lorazepam and will just take this if feeling anxious and will plan to take her Tizanidine (she takes for back pain) prior to procedure. BRIT Celis Rebecca L, MD 05/27/2024 8:45 AM Signed noted and agree. Carmelita Millan MD Allergies As of Date: 05/26/2024 Noted Allergy Reaction ZYRTEC (CETIRIZINE HCL) 05/08/2006 5 - Intolerance Comments: tremors Date Reviewed: 05/19/2024 Reviewed by: Gabriella Taylor LPN - Fully Assessed Reason for Visit: Results [95] Primary Visit Diagnosis:Other abnormal cytological finding of specimen from cervix [R87.618] Order(s):COLPOSCOPY [[id number]] Order #: [id number] Prescriptions as of 05/27/2024 - tiZANidine (ZANAFLEX) 4 mg tablet Take 1/2 - 1 tablet oral Three times a day , PRN as needed for 30 Days - semaglutide, weight loss, (WEGOVY) 0.25 mg/0.5 mL pen injector Inject 0.5 mL subcutaneously one time a week. - Etonogestrel-Ethinyl Estradiol (NUVARING) 0.12-0.015 mg/24 hr vaginal ring Use 1 Each vaginally as directed. INSERT ONE(1) RING VAGINALLY AND LEAVE IN PLACE FOR THREE WEEKS, THEN REMOVE FOR 1 WEEK. - citalopram (CELEXA) 20 mg tablet Take 2 tablets by mouth once daily. - keTORolac (TORADOL) 10 mg tablet Take 1 tablet by mouth every 6 hours as needed. For up to 5 days - acetaminophen (TYLENOL 8 HOUR) 650 mg CR tablet Take 1 tablet by mouth every 8 hours as needed. - lisdexamfetamine (VYVANSE) 40 mg capsule Take 1 capsule by mouth once daily for 30 days. - cloNIDine HCl (CATAPRES) 0.1 mg tablet Take 1 tablet by mouth once daily as needed (Anxiety). - SUMAtriptan (IMITREX) 100 mg tablet Take 1 tablet (100 mg) by mouth as needed. TAKE ONE (1) TABLET EVERY 2 HOURS WITH A MAXIMUM DOSE OF 200 MG PER DAY NEEDED FOR HEADACHE Medication notes this encounter HYDROXYZINE HCL 50 MG TABLET >> Tri Alonzo RN 05/26/2024 3:55 PM Pt states she has adverse reaction to this medication and does not want it Problem List As Of Date 05/26/2024 Noted Resolved Attention deficit disorder [F98.8] 11/27/2007 Telangiectasia [I78.1] 01/27/2010 09/18/2019 Rosacea [L71.9] 01/27/2010 09/18/2019 Other acne [L70.8] 01/27/2010 09/18/2019 Depression [F32.A] 05/26/2011 09/18/2019 Tobacco use in [O99.330] 04/18/2012 10/08/2012 History of depression [Z86.59] 04/18/2012 01/01/2023 History of alcohol abuse [F10.11] 04/18/2012 01/01/2023 Family history of congenital heart defect [Z82.*04/18/2012 01/01/2023 with adoption planned [Z34.90] 04/22/2012 10/08/2012 Chlamydia infection [A74.9] 09/23/2013 09/18/2019 Routine gynecological examination [Z01.419] 12/09/2014 09/18/2019 Family history of leukemia [Z80.6] 02/04/2015 01/01/2023 Vapes nicotine containing substance [Z72.0] 09/07/2015 01/01/2023 Bulging of intervertebral disc between L4 and L*09/07/2015 Migraine without aura and without status migrai*09/07/2015 Uncomplicated asthma [J45.909] 09/07/2015 09/18/2019 Drug abuse (HCC) [F19.10] 09/10/2015 Hepatitis C [B19.20] 2018 ASCUS with positive high risk HPV cervical [R87*09/26/2019 01/01/2023 Intractable low back pain [M54.59] 04/27/2020 Urinary incontinence [R32] 04/27/2020 04/28/2020 Nicotine use disorder, F17.2 [F17.200] 04/27/2020 Mild intermittent asthma without complication [*08/03/2020 Basal cell carcinoma (BCC) of scalp [C44.41] 12/09/2020 HSIL (high grade squamous intraepithelial lesio*01/10/2022 01/01/2023 Spotting in early [O26.859] 04/13/2022 01/01/2023 Engages in vaping [Z72.89] 04/13/2022 01/01/2023 History of macrosomia in in prior pregna*04/13/2022 01/01/2023 Patient request for diagnostic testing [Z01.89] 04/13/2022 01/01/2023 Needle stick, hypodermic, accidental, initial e*08/14/2022 01/01/2023 Positive GBS test [B95.1] 11/06/2022 01/01/2023 Elevate (more content not included)... Normal [facility] MR/BMS.BPon 05-22-2024 MR/BMS.BP [address], [place] [address] OFFICE VISIT Date of Service: 05/22/24 MR#: [id number] Acct: [id number] Name: FADUMO HENSLEY Rep #: [id number] : 1995 Provider: DIOGENES head Age/Sex: 28/F Location: [facility].BP Status: Signed Intake Vital Signs 04/30/24 11:31 05/22/24 13:25 Height 5 ft 7 in 5 ft 7 in BP 140/81 H Blood Pressure Location Rt brachial Position Sitting Pulse 99 Pulse Source Monitor BP Intake Visit Reasons: Follow up Is patient in pain?: No Allergies cetirizine (From Zyrtec) Allergy (Verified 05/22/24 13:29) difficulty breathing, racing heart Medications ???Medication ???Instructions ???Recorded ???Confirmed ???Type tizanidine 4 mg capsule 4 mg PO QHS 03/19/23 05/22/24 History lisdexamfetamine 40 mg capsule 40 mg PO QAM 30 days #30 caps 04/29/24 05/22/24 Rx (Vyvanse) clonidine HCl 0.1 mg tablet 0.1 mg PO BID PRN anxiety #60 tabs 05/21/24 05/22/24 Rx citalopram 10 mg tablet 10 mg PO DAILY #14 tabs 05/22/24 05/22/24 Rx escitalopram oxalate 10 mg tablet 10 mg PO QDAY #30 tabs 05/22/24 05/22/24 Rx etonogestrel 0.12 mg-ethinyl vag ring vaginal 05/22/24 05/22/24 History estradiol 0.015 mg/24 hr vaginal ring lorazepam 0.5 mg tablet 0.5 mg PO DAILY PRN anxiety #15 05/22/24 05/22/24 Rx tabs PFSH Medical History DDD (degenerative disc disease), lumbar Wears partial dentures Substance abuse History of steroid therapy Hepatitis Vapes nicotine containing substance Gastric reflux History of pain when walking History of edema Hypotension History of Mohs micrographic surgery for skin cancer Encounter for IUD insertion MANUEL III (cervical intraepithelial neoplasia grade III) with severe dysplasia Herniated lumbar intervertebral disc Asthma depression Depression Anxiety Gestational diabetes Skin cancer ADHD Lower back pain Surgical History History of appendectomy Hx of wisdom tooth extraction Family History Other Suicide Social History Smoking Status: Current every day smoker tobacco type: e-cigarettes alcohol intake: never details: Occasionally substance use type: does not use HPI History of Present Illness History provided by: patient HPI: Fadumo Hensley is a 28 year old female patient presenting today for a follow up evaluation. States next appointment with her counselor is in mid-May. States her cousin is in a similar situation as her mother was in and she feels this is triggering in a sense for her. States she is having a lot of anxiety about trying to coparent with her step son's mother. States that 40mg of citalopram is effective but feels it is overly sedating but not helping with anxiety. Does not feel she is having a lot of baseline anxiety but that she will have episodes of panic. She will become shaky and have a large amount of heightened anxiety. Feels they are more intense than before and are occurring 1x every other day or more. Denies any depressive symptoms. Denies SI/HI. Does have difficulty with sleeping but reports her daughter does not sleep through the night which can make things difficult. Her work schedule is to work from 1PM-1AM which causes difficulty with sleep schedule. Diet has been fine. No changes in appetite. Reports ADHD symptoms are well managed with lisdexamfetamine at current dose for the time being. Previous similar episode: Yes Age of first onset of symptoms: 11-20 years Review of Systems Constitutional Reports: fatigue; Denies: fever(s), chills or change in weight Eyes Denies: change in vision or blurry vision Ears, Nose, Mouth, Throat Reports: neck pain; Denies: throat pain Cardiovascular Reports: chest pain (with panic attacks) and dyspnea (with panic attacks); Denies: palpitations Respiratory Reports: dyspnea (with panic attacks); Denies: wheezing Gastrointestinal Reports: diarrhea; Denies: abdominal pain, nausea, vomiting or constipation Genitourinary Denies: dysuria, urinary frequency or urinary urgency Musculoskeletal Reports: back pain and neck pain Integumentary/Breast Denies: rash, pruritus or erythema Neurological Reports: headache(s) Psychiatric Reports: anxiety, panic attacks, change in sleep pattern, memory loss and difficulty concentrating; Denies: hopelessness, loss of interest, visual hallucinations, auditory hallucinations, suicidal ideation or homicidal ideation Endocrine Reports: fatigue Hematologic/Lymphatic Denies: easy bruising Allergic/Immunologic Denies: wheezing Exam Mental Status Exam - Psych Appearance casually (more content not included)... [facility] ) FADUMO HENSLEY ([id number]) 1995 F Date Time Provider Department 05/19/24 2:30 PM ANGELA HAQ OBGYWM During your visit today, we recorded the following information about you: Blood pressure Weight 122/68 87.1 kg Angela Haq APRN.CNP 05/19/2024 3:07 PM Signed Patient declined consumer relations specialist. Fadumo presents for removal of IUD due to pain. UNIVERSAL PROTOCOL / SAFETY CHECKLIST Procedure to be Performed: Liletta Intrauterine device. Sign In: A Moment of CARE was completed. Personnel directly involved with the procedure wore the appropriate PPE (Personal Protective Equipment). Patient/Surrogate Stated/Verified: PATIENT VERIFIED(optional for EMERGENT procedures): Patient name, Date of , Relevant allergies, and The intended procedure Time Out Communication: Intended patient and procedure match the source documents. Consent documented and matches the intended procedure. Sign Out: SIGN OUT (optional for EMERGENT procedures): No specimen collected. No instruments, equipment or retained foreign bodies applicable. Post-procedure follow-up management communicated and Plan of Care Visit completed when applicable. PROCEDURE: Speculum placed in vagina, IUD string visualized and grasped with ring forceps. ASSESSMENT/PLAN: IUD removed without difficulty, intact, and patient tolerated procedure well. Contraception plans: Nuvaring short term Pap collected today Angela Haq APRN.CNP Allergies As of Date: 05/19/2024 Noted Allergy Reaction ZYRTEC (CETIRIZINE HCL) 05/08/2006 5 - Intolerance Comments: tremors Date Reviewed: 05/19/2024 Reviewed by: Gabriella Taylor LPN - Fully Assessed Reason for Visit: IUD Removal [1950] Primary Visit Diagnosis:Encounter for IUD removal [Z30.432] Other Visit Diagnoses:Screening for malignant neoplasm of cervix [Z12.4] Encounter for screening for human papillomavirus (HPV) [Z11.51] Order(s):REMOVE INTRAUTERINE DEVICE [[id number]] Order #: [id number] Etonogestrel-Ethinyl Estradiol (NUVARING) 0.12-0.015 mg/24 hr vaginal ringUse 1 Each vaginally as directed. INSERT ONE(1) RING VAGINALLY AND LEAVE IN PLACE FOR THREE WEEKS, THEN REMOVE FOR 1 WEEK.Disp: 1 EachRfl: 3 PAP TEST [[id number]] Order #: [id number]. #:[id number] Prescriptions as of 05/19/2024 - Etonogestrel-Ethinyl Estradiol (NUVARING) 0.12-0.015 mg/24 hr vaginal ring Use 1 Each vaginally as directed. INSERT ONE(1) RING VAGINALLY AND LEAVE IN PLACE FOR THREE WEEKS, THEN REMOVE FOR 1 WEEK. - citalopram (CELEXA) 20 mg tablet Take 2 tablets by mouth once daily. - tiZANidine (ZANAFLEX) 4 mg tablet Take 1/2 - 1 tablet oral Three times a day , PRN as needed for 30 Days - keTORolac (TORADOL) 10 mg tablet Take 1 tablet by mouth every 6 hours as needed. For up to 5 days - acetaminophen (TYLENOL 8 HOUR) 650 mg CR tablet Take 1 tablet by mouth every 8 hours as needed. - lisdexamfetamine (VYVANSE) 40 mg capsule Take 1 capsule by mouth once daily for 30 days. - cloNIDine HCl (CATAPRES) 0.1 mg tablet Take 1 tablet by mouth once daily as needed (Anxiety). - SUMAtriptan (IMITREX) 100 mg tablet Take 1 tablet (100 mg) by mouth as needed. TAKE ONE (1) TABLET EVERY 2 HOURS WITH A MAXIMUM DOSE OF 200 MG PER DAY NEEDED FOR HEADACHE Problem List As Of Date 05/19/2024 Noted Resolved Attention deficit disorder [F98.8] 11/27/2007 Telangiectasia [I78.1] 01/27/2010 09/18/2019 Rosacea [L71.9] 01/27/2010 09/18/2019 Other acne [L70.8] 01/27/2010 09/18/2019 Depression [F32.A] 05/26/2011 09/18/2019 Tobacco use in [O99.330] 04/18/2012 10/08/2012 History of depression [Z86.59] 04/18/2012 01/01/2023 History of alcohol abuse [F10.11] 04/18/2012 01/01/2023 Family history of congenital heart defect [Z82.*04/18/2012 01/01/2023 with adoption planned [Z34.90] 04/22/2012 10/08/2012 Chlamydia infection [A74.9] 09/23/2013 09/18/2019 Routine gynecological examination [Z01.419] 12/09/2014 09/18/2019 Family history of leukemia [Z80.6] 02/04/2015 01/01/2023 Vapes nicotine containing substance [Z72.0] 09/07/2015 01/01/2023 Bulging of intervertebral disc between L4 and L*09/07/2015 Migraine without aura and without status migrai*09/07/2015 Uncomplicated asthma [J45.909] 09/07/2015 09/18/2019 Drug abuse (HCC) [F19.10] 09/10/2015 Hepatitis C [B19.20] 2018 ASCUS with positive high risk HPV cervical [R87*09/26/2019 01/01/2023 Intractable low back pain [M54.59] 04/27/2020 Urinary incontinence [R32] 04/27/2020 04/28/2020 Nicotine use disorder, F17.2 [F17.200] 04/27/2020 Mild intermittent asthma without complication [*08/03/2020 Basal cell carcinoma (BCC) of scalp [C44.41] 12/09/2020 HSIL (high grade squamous intraepithelial lesio*01/10/2022 01/01/2023 Spotting in early [O26.859] 04/13/2022 01/01/2023 Engages in vaping [Z72.89] 04/13/2022 01/01/2023 History (more content not included)... Normal [facility] HIGH RISK HUMAN PAPILLOMA OLIVE (HPV), PCR FOR DETECTION AND GENOTYPINGon 05-19-2024 HPV 16 Ag Ql (Unsp spec) Not detected Normal Not detected [facility] Comment on above: Order Comment: Speci men Type: FLUID SPECIMENOrdering Facility: [facility] Address: [address] [place] [address] Performed By: #### L [id number] ####[facility]ORATORYCLIA [id number] [address] [place]#### HPVHRT ####[facility] LABCLIA [id number] [place] [address] [place] HPV 18 Ag Ql (Unsp spec) Not detected Normal Not detected [facility] Comment on above: Order Comment: Speci men Type: FLUID SPECIMENOrdering Facility: [facility] Address: [address] [place] [address] Performed By: #### L [id number] ####[facility]URLINGTONCLIA [id number] [place] [address] [place]#### HPVHRT ####[facility] LABIA [id number] [place] [address] [place] HPV 31+33+35+39+45+51+52+5 6+58+59+66+68 DNA JESSICA+probe Ql (Cvx) Not detected Normal Not detected [facility] Comment on above: Order Comment: Speci men Type: FLUID SPECIMENOrdering Facility: [facility] Address: [address] [place] [address] Result Comment: High Risk HPV Other Type includes HPV types 31, 33, 35, 39, 45, 51, 52, 56, 58, 59, 66 and 68. Performed By: #### L [id number] ####[facility]ITALIA [id number] [place] [address] [place]#### HPVHRT ####[facility] LABCLIA [id number] [place] [address] [place] PAP TESTon 05-19-2024 ADEQUACY Satisfactory for interpretation. Normal [facility] Comment on above: Order Comment: Speci men Type: FLUID SPECIMENOrdering Facility: [facility] Address: [address] [place] [address] Performed By: #### L [id number] ####[facility]ORATORYCLIA [id number] [place] [address] [place]#### HPVHRT ####[facility] LABCLIA [id number] [place] [address] [place] CASE REPORT Normal [facility] Comment on above: Order Comment: Speci men Type: FLUID SPECIMENOrdering Facility: [facility] Address: [address] [place] [address] Result Comment: Gyne cologic Cytology Report Case: [id number] Authorizing Provider: Angela Haq APRN.QUANTITATIVE ANALYST MARKETING Collected: 05/19/2024 03:08 PM Ordering Location: OB/Gynecology Received: 05/19/2024 04:53 PM First Screen: Chey Fisher, CT, ASCP Pathologist: Aliyah Francois MD Specimen: Pap Test, ThinPrep, Cervix Performed By: #### L [id number] ####[facility]ORYCLIA [id number] [place] [address] [place]#### HPVHRT ####[facility] LABCLIA [id number] [place] [address] [place] CLINICAL HISTORY, CYTOLOGY, STEWARD RACETRACK Previous LEEP Normal [facility] Comment on above: Order Comment: Speci men Type: FLUID SPECIMENOrdering Facility: [facility] Address: [address] [place] [address] Result Comment: Intr a Uterine Device, No Menses Performed By: #### L [id number] ####[facility]ORYCLIA [id number] [place] [address] [place]#### HPVHRT ####[facility] LABCLIA [id number] [place] [address] [place] FINAL PERFORMING LAB Normal [facility] Comment on above: Order Comment: Speci men Type: FLUID SPECIMENOrdering Facility: [facility] Address: [address] [place] [address] Result Comment: Tech nical component, laboratory scientist screening performed at [facility], [address] [place] [address] CLIA# [id number] Diagnostic interpretation performed at [facility], [address] [id number] CLIA# [id number] Employee Adviser: Rosanna Mock M.D. Performed By: #### L [id number] ####[facility]ORYCLIA [id number] [place] [address] [place]#### HPVHRT ####[facility] LABCLIA [id number] [place] [address] [place] INTERPRETATION, CYTOLOGY, STEWARD RACETRACK Abnormal [facility] Comment on above: Order Comment: Speci men Type: FLUID SPECIMENOrdering Facility: [facility] Address: [address] [place] [address] Result Comment: Atyp ical glandular cells, endocervical type. Performed By: #### L [id number] ####[facility]ITALCLIA [id number] [place] [address] [place]#### HPVHRT ####[facility] LABCLIA [id number] [place] [address] [place] PAP DISCLAIMER COMMENT The Pap Smear is a screening test for cervical cancer. False negative results occur with all screening tests, emphasizing the need for rescreening at recommended intervals, and clinical correlation. Normal [facility] Comment on above: Order Comment: Speci men Type: FLUID SPECIMENOrdering Facility: [facility] Address: [address] [place] [address] Performed By: #### L [id number] ####[facility] H[facility]PITALCLIA [id number] [place] [id number] [place]#### HPVHRT ####[facility] LABCLIA [id number] [place] [address] [place] PAP GENERAL CATEGORIZATION Epithelial Cell Abnormality Normal [facility] Comment on above: Order Comment: Speci men Type: FLUID SPECIMENOrdering Facility: [facility] Address: [address] [place] [address] Performed By: #### L [id number] ####[facility]ORATORYCLIA [id number] [place] [address] [place]#### HPVHRT ####[facility] LABCLIA [id number] [place] [address] [place] PAP COFOUNDER COMMENT This specimen has be en analyzed by the ThinPrep Imaging System, an automated imaging and review system, which assists the laboratory in evaluating cells on ThinPrep Pap tests. Following automated imaging, selected fritz from every slide are reviewed by a laboratory scientist. Normal [facility] Comment on above: Order Comment: Speci men Type: FLUID SPECIMENOrdering Facility: [facility] Address: [address] [place] [address] Performed By: #### L [id number] ####[facility]ATORYCLIA [id number] [place] [address] [place]#### HPVHRT ####[facility] LABCLIA [id number] [place] [address] [place] MR/BMS.Avani 04-30-2024 MR/BMS. [address], [address] [place] [address] OFFICE VISIT Date of Service: 04/30/24 MR#: [id number] Acct: [id number] Name: FADUMO HENSLEY Rep #: [id number] : 1995 Provider: DIOGENES head Age/Sex: 28/F Location: [facility].BPV Status: Signed Intake Vital Signs 03/27/24 20:57 04/30/24 11:31 Height 5 ft 7 in 5 ft 7 in BP Intake Visit Reasons: 3 M FU Allergies cetirizine (From yrte) Allergy (Verified 03/27/24 20:56) difficulty breathing, racing heart [facility] Medical History (Updated 04/05/24 @ 00:03 by Background Daemon) DDD (degenerative disc disease), lumbar Wears partial dentures Substance abuse History of steroid therapy Hepatitis Vapes nicotine containing substance Gastric reflux History of pain when walking History of edema Hypotension History of Mohs micrographic surgery for skin cancer Encounter for IUD insertion MANUEL III (cervical intraepithelial neoplasia grade III) with severe dysplasia Herniated lumbar intervertebral disc Asthma depression Depression Anxiety Gestational diabetes Skin cancer ADHD Lower back pain Surgical History History of appendectomy Hx of wisdom tooth extraction Family History Other Suicide Social History Smoking Status: Current every day smoker tobacco type: e-cigarettes alcohol intake: never details: Occasionally substance use type: does not use HPI History of Present Illness History provided by: patient Chief complaint: Depression/Anxiety HPI: Fadumo Hensley is a 28 year old female patient presenting today via telehealth for a follow up evaluation. States that she had tried taking citalopram 40mg for a few weeks but felt it was too sedating and ended up breaking those tablets in half. Is still having some anxiety but feels it has been calming down. Has been utilizing clonidine PRN and feels it has been beneficial when she has needed it. Has had panic attacks since last appointment and feels they are much less frequent and much less severe than before. Does feel that mood has been better. Has been having some difficulty with being patient with her children, especially her older daughter. Does feel she is irritable more than half the time. Does admit to feelings of depression more than half the time. Has been having difficulty with finding maude in things more recently. Has been working from home and being with her child all day while she is working and is feeling that she doesn't get a break due to this. Denies SI/HI. Has been struggling more with motivation and lack of energy. Sleep has been good and has been getting 8 hours per night. Appetite has been poor. Has not had any weight loss. Previous similar episode: Yes Age of first onset of symptoms: 11-20 years Review of Systems Constitutional Reports: fatigue; Denies: fever(s), chills or change in weight Eyes Denies: change in vision or blurry vision Ears, Nose, Mouth, Throat Reports: neck pain; Denies: throat pain Cardiovascular Reports: chest pain (with panic attacks) and dyspnea (with panic attacks); Denies: palpitations Respiratory Reports: dyspnea (with panic attacks); Denies: wheezing Gastrointestinal Reports: diarrhea; Denies: abdominal pain, nausea, vomiting or constipation Genitourinary Denies: dysuria, urinary frequency or urinary urgency Musculoskeletal Reports: back pain and neck pain Integumentary/Breast Denies: rash, pruritus or erythema Neurological Reports: headache(s) Psychiatric Reports: anxiety, panic attacks, change in sleep pattern, hopelessness, loss of interest, memory loss and difficulty concentrating; Denies: visual hallucinations, auditory hallucinations, suicidal ideation or homicidal ideation Endocrine Reports: fatigue Hematologic/Lymphatic Denies: easy bruising Allergic/Immunologic Denies: wheezing Exam Mental Status Exam - Psych Appearance casually dressed, adequately groomed and no apparent distress Attitude cooperative and calm Activity/Motor Behavior MSE activity/motor behavior finding no adventitious movements and appropriate eye contact Speech regular rate, regular volume and regular prosody Mood OK and anxious Affect full range and anxious Thought Process linear, logical and coherent Thought Content no delusions and no hallucinations Suicidal Ideation none Homicidal Ideation none Attention impaired (per patient self report) Concentration impaired (per patient self report) Sensorium/Orientation awake, alert and oriented x3 Memory/Cognition impaired (per patient self report) Insight good Judgement good Exam Constitutional Common normals: no acut (more content not included)... Normal [facility] ED Noteson 04-16-2024 Addiction Therapist Authentication Interface Message Text Attempted to find patient at this time, not to be found in room. Appears patient eloped from ED at this time, aware Normal [facility] ED Provider Noteson 04-16-20 Addiction Therapist Authentication Interface Message Text Attestation signed by Singh Louise MD at 04/21/2024 12:24 AM ATTENDING NOTE I saw and evaluated the patient. I personally obtained the ely and critical portions of the history and physical exam. I reviewed the resident's documentation and discussed the patient with the resident. I agree with the resident's medical decision making as documented in the resident's note. Singh Louise MD EMERGENCY DEPARTMENT - VISIT NOTE HISTORY OF PRESENT ILLNESS Chief Complaint Patient presents with Dental Pt expressing recurrent abscess on R mandible. Pt has been on multiple abx, tylenol, toradol. Pt was seen at OSH earlier today, had CT scan, steroid injection and attempted lancing x 5 without drainage. Pt with ongoing pain and swelling. History by Independent Historian: patient, chart review Fadumo Hensley is a 28 year old female presenting to the ED for dental pain. Right lower dental pain/swelling. Finished clindamycin this morning. Referred to ED by dentist d/t swelling going into neck . She was seen in the ED yesterday, prescribed norco 6-[address] with contrast performed yesterday showing Extensive right facial fat stranding, soft tissue swelling, and inflammatory change extending inferiorly along the right neck but along the right mandible. There is periapical lucency associated with the residual posterior-most right mandibular tooth with loss of overlying cortex suspicious for periapical abscess. dental caries, and periapical lucencies. The [employer] tried to drain the patients face with an 18 gauge and a scalpel at the gumline without success, patient notes significantly worsening pain and swelling since then. No SOB, vomiting, nausea, fevers, CP. Has taken clindamycin, then amoxicillin for 2 weeks without relief. Had a tele-visit with her PCP who prescribed augmentin. Went then to a walk-in dental clinic this morning but was referred to the ED for the swelling. Went to ED, given NS 1L bolus. toradol, solu-medrol, morphine, and zofran. CT noted above with periapical abscess noted. Dental balls provided for the patient. I attempted aspiration with an 18g needle as well as making an incision with an 11blade scalpel of the gumline abscess without purulent drainage. She already has an augmentin prescription. Recommedned warm compresses and oral antibiotics. Follow up with dentistry. She is discharged home in a stable condition with computer instructions given and is encouraged to return to the ER for any new orworsening symptoms Review of External (Non- ED) Notes: 04/15/24 ED visit for same MEDICAL HISTORY: Pertinent Past History: No past medical history on file. Pertinent Family History: No family history on file. Pertinent Social History: Pertinent Social Determinants of Health: Social Determinants of Health with Concerns Tobacco Use: High Risk (04/15/2024) Received from [facility] Patient History Smoking Tobacco Use: Former Smokeless Tobacco Use: Current Passive Exposure: Not on file Physical Activity: Inactive (08/31/2023) Received from [facility] Exercise Vital Sign Days of Exercise per Week: 0 days Minutes of Exercise per Session: 0 min Stress: Stress Concern Present (08/31/2023) Received from [facility] [place] of Occupational Health - Occupational Stress Questionnaire Feeling of Stress : To some extent Intimate Partner Violence: Not on file Depression: Not at risk (03/27/2024) Received from [facility] PHQ-2 PHQ-2 score: 2 Recent Concern: Depression - At risk (11/20/2023) Received from [facility] PHQ-2 PHQ-2 score: 4 Housing Stability: Not on file Utilities: Not on file PHYSICAL EXAM: BP 121/79 Pulse (!) 102 Temp 98.7 ???F (37.1 ???C) (Oral) Resp 18 SpO2 96% GENERAL: NAD, well appearing HENT: Right sided facial edema without erythema. No trismus. Overall poor dentition with lower gumline swelling. LUNGS: CTAB, no increased WOB CARDIAC: RRR. No JVD, no peripheral edema ABDOMEN: Soft, nondistended, nontender MSK: Pulses 2+ bilaterally radially and DP NEURO: ANOx3 PSYCH: normal affect EMERGENCY DEPARTMENT COURSE: COURSE: MEDS ADMINISTERED IN ED: Medications - No data to display . MEDICAL DECISION MAKING AND DISPOSITION: DISPOSITION: ELOPED IMPRESSION: Clinical Impression None MEDICATIONS PRESCRIBED AT DISCHARGE: New Prescriptions No medications on file Irenelindsey Saez, DO Emergency Medicine PGY-3 Normal [facility] CBC W Auto Differential pane l (Bld)on 04-15-2024 Basophils (Bld) [#/Vol] 0.02 10*3/uL [facility] Basophils/100 WBC (Bld) 0.2 % 0.0 - 2.0 % [facility] Eosinophils (Bld) [#/Vol] 0.09 10*3/uL [facility] Eosinophils/100 WBC (Bld) 0.9 % 0.0 - 6.0 % [facility] Erythrocyte distribution width (RBC) [Ratio] 11.9 % 11.5 - 14.5 % [facility] Hematocrit (Bld) [Volume fraction] 35.1 % Low 36.0 - 46.0 % [facility] Hemoglobin (Bld) [Mass/Vol] 12.0 g/dL 12.0 - 16.0 g/dL [facility] Immature granulocytes (Bld) [#/Vol] 0.03 10*3/[facility] Immature granulocytes/100 WBC (Bld) 0.3 % 0.0 - 0.9 % [facility] Comment on above: Immature Granulocyte Count (IG) includes promyelocytes, myelocytes and metamyelocytes but does not include bands. Percent differential counts (%) should be interpreted in the context of the absolute cell counts (cells/UL). Interpretation and review of laboratory results Abnormal [facility] Lymphocytes (Bld) [#/Vol] 2.73 10*3/uL [facility] Lymphocytes/100 WBC (Bld) 27.0 % 13.0 - 44.0 % [facility] MCH (RBC) [Entitic mass] 31.3 pg 26.0 - 34.0 pg [facility] MCHC (RBC) [Mass/Vol] 34.2 g/dL 32.0 - 36.0 g/dL [facility] MCV (RBC) [Entitic vol] 91 fL 80 - 100 fL [facility] Monocytes (Bld) [#/Vol] 0.63 10*3/uL [facility] Monocytes/100 WBC (Bld) 6.2 % 2.0 - 10.0 % [facility] Neutrophils (Bld) [#/Vol] 6.60 10*3/uL [facility] Comment on above: Percent differential counts (%) should be interpreted in the context of the absolute cell counts (cells/uL). Neutrophils/100 WBC (Bld) 65.4 % 40.0 - 80.0 % [facility] Nucleated RBC/100 WBC (Bld) [Ratio] 0.0 % [facility] Platelets (Bld) [#/Vol] 242 10*3/uL [facility] RBC (Bld) [#/Vol] 3.84 10*6/uL [facility] WBC (Bld) [#/Vol] 10.1 10*3/uL [facility] CT Neck W contrast Christopher 03-24 Extensive right faci al fat stranding, soft tissue swelling, and inflammatory change extending inferiorly along the right neck but most pronounced along the right mandible. There is periapical lucency associated with the residual posterior-most right mandibular tooth with loss of overlying cortex suspicious for periapical abscess. There is otherwise poor dentition with multiple missing teeth, dental caries, and periapical lucencies. Correlation with a dental examination is recommended. MACRO: None Signed by: Aliyah Betancourt 04/15/2024 2:51 PM Dictation workstation: [id number] [facility] Interpreted By: Aliyah Ramos, STUDY: CT SOFT TISSUE NECK W IV CONTRAST; 04/15/2024 2:39 pm INDICATION: Signs/Symptoms:right facial swelling/dental pain. COMPARISON: None. ACCESSION NUMBER(S): [id number] ORDERING CLINICIAN: WILVER MORA TECHNIQUE: Axial CT images of the neck were obtained. The patient received 70 mL Omnipaque 350 intravenous contrast agent. The images were reformatted in angled axial, coronal and sagittal planes. FINDINGS: There is fat stranding and reticulation overlying the right cheek and mandible and extending inferiorly along the right neck with thickening of the right platysma muscle. Evaluation of the oral cavity is limited due to artifact from the patient's dental hardware. There are several missing teeth. There is periapical lucency and prominent dental caries associated with residual posterior-most right mandibular tooth with loss of overlying cortex raising concern for periapical abscess. There is prominent soft tissue swelling immediately overlying the mandibular alveolar ridge in this region. Oral Cavity, Pharynx and Larynx: Evaluation of the oral cavity is limited by streak artifact from dental hardware. The nasopharyngeal and oropharyngeal structures are unremarkable. The hypopharyngeal and laryngeal structures are unremarkable. Retropharyngeal and Prevertebral Soft Tissues: Unremarkable. Lymph nodes: There are scattered, nonspecific cervical lymph nodes favored to be reactive in nature. Neck vessels: Bilateral neck vessels are normal in course and caliber and appear patent. Thyroid gland: The thyroid gland is unremarkable in size and appearance. Parotid and submandibular glands: Bilateral parotid and submandibular glands are unremarkable in appearance. Paranasal Sinuses and Mastoids: Visualized paranasal sinuses and mastoid air cells are clear. There is nasal septal deviation and spurring. Visualized orbital structures are unremarkable. Visualized upper lungs are clear. Visualized cervical spine appears unremarkable. [facility] Aliyah Betancourt, DO - 04/15/2024 Interpreted By: Aliyah Betancourt, STUDY: CT SOFT TISSUE NECK W IV CONTRAST; 04/15/2024 2:39 pm INDICATION: Signs/Symptoms:right facial swelling/dental pain. COMPARISON: None. ACCESSION NUMBER(S): [id number] ORDERING CLINICIAN: WILVER MORA TECHNIQUE: Axial CT images of the neck were obtained. The patient received 70 mL Omnipaque 350 intravenous contrast agent. The images were reformatted in angled axial, coronal and sagittal planes. FINDINGS: There is fat stranding and reticulation overlying the right cheek and mandible and extending inferiorly along the right neck with thickening of the right platysma muscle. Evaluation of the oral cavity is limited due to artifact from the patient's dental hardware. There are several missing teeth. There is periapical lucency and prominent dental caries associated with residual posterior-most right mandibular tooth with loss of overlying cortex raising concern for periapical abscess. There is prominent soft tissue swelling immediately overlying the mandibular alveolar ridge in this region. Oral Cavity, Pharynx and Larynx: Evaluation of the oral cavity is limited by streak artifact from dental hardware. The nasopharyngeal and oropharyngeal structures are unremarkable. The hypopharyngeal and laryngeal structures are unremarkable. Retropharyngeal and Prevertebral Soft Tissues: Unremarkable. Lymph nodes: There are scattered, nonspecific cervical lymph nodes favored to be reactive in nature. Neck vessels: Bilateral neck vessels are normal in course and caliber and appear patent. Thyroid gland: The thyroid gland is unremarkable in size and appearance. Parotid and submandibular glands: Bilateral parotid and submandibular glands are unremarkable in appearance. Paranasal Sinuses and Mastoids: Visualized paranasal sinuses and mastoid air cells are clear. There is nasal septal deviation and spurring. Visualized orbital structures are unremarkable. Visualized upper lungs are clear. Visualized cervical spine appears unremarkable. IMPRESSION: Extensive right facial fat stranding, soft tissue swelling, and inflammatory change extending inferiorly along the right neck but most pronounced along the right mandible. There is periapical lucency associated with the residual posterior-most right mandibular tooth with loss of overlying cortex suspicious for periapical abscess. There is otherwise poor dentition with multiple missing teeth, dental caries, and periapical lucencies. Correlation with a dental examination is recommended. MACRO: None Signed by: Aliyah Betancourt 04/15/2024 2:51 PM Dictation workstation: [id number] [facility] Work Phone: Radiology Study observation (narrative) [facility] Work Phone: CT Neck W contrast IVOrdered By: Aliyah Betancourt on 04-15-2024 [facility] Work Phone: Comprehensive metabolic 2000 panelon 04-15-2024 Albumin BCP dye [Mass/Vol] 4.4 g/dL 3.4 - 5.0 g/dL [facility] ALP [Catalytic activity/Vol] 86 U/L 33 - 110 U/L [facility] ALT With P-5'-P [Catalytic activity/Vol] 19 U/L 7 - 45 U/L [facility] Comment on above: Patients treated wit h Sulfasalazine may generate falsely decreased results for ALT. Anion gap [Moles/Vol] 10 mmol/L 10 - 2 0 mmol/L [facility] AST With P-5'-P [Catalytic activity/Vol] 18 U/L 9 - 39 U/L [facility] Bilirubin [Mass/Vol] 0.9 mg/dL 0.0 - 1 .2 mg/dL [facility] Calcium [Mass/Vol] 8.9 mg/dL 8.6 - 10. 3 mg/dL [facility] Chloride [Moles/Vol] 107 mmol/L 98 - 10 7 mmol/L [facility] CO2 [Moles/Vol] 24 mmol/L 21 - 32 mmol/L [facility] Creatinine [Mass/Vol] 0.62 mg/dL 0.50 - 1.05 mg/dL [facility] eGFR - PINF [facility] Comment on above: Calculations of jamila mated GFR are performed using the 2020 CKD-EPI Study Refit equation without the race variable for the IDMS-Traceable creatinine methods. https://jasn.asnjournals.org/content/early//ASN.52917 93432 Glucose [Mass/Vol] 93 mg/dL 74 - 99 mg/dL [facility] Potassium [Moles/Vol] 3.7 mmol/L 3.5 - 5.3 mmol/L [facility] Protein [Mass/Vol] 7.3 g/dL 6.4 - 8.2 g/dL [facility] Sodium [Moles/Vol] 137 mmol/L 136 - 145 mmol/L [facility] Urea nitrogen [Mass/Vol] 12 mg/dL 6 - 23 mg/dL [facility] Lactateon 04-15-2024 Lactate [Moles/Vol] 0.8 mmol/L 0.4 - 2. 0 mmol/L [facility] Lactate [Moles/Vol]on 2023 Venipuncture immediately after or during the administration of Metamizole may lead to falsely low results. Testing should be performed immediately prior to Metamizole dosing. [facility] No Panel Informationon 04-15 Interpretation and review of laboratory results Normal [facility] .Auto Diffon 04-10-2024 Basophil, Absolute 0.0 10 3/mcL Normal 0.0-0.2 [facility] Comment on above: Performed By: #### A ESTHER, GFR, CMP, MDW, CBC, LIP, ADIFF #### [facility] [address] [place], [place] [address] Basophils/100 WBC (Bld) 0.5 % Normal 0.0-2.5 [facility] Comment on above: Performed By: #### A ESTHER, GFR, CMP, MDW, CBC, LIP, ADIFF #### [address] [address] Eosinophil, Absolute 0.1 10 3/mcL Normal 0.0-0.4 [facility] Comment on above: Performed By: #### A ESTHER, GFR, CMP, MDW, CBC, LIP, ADIFF #### [address] [address] Eosinophils/100 WBC (Bld) 1.1 % Normal 0.0-7.0 [facility] Comment on above: Performed By: #### A ESTHER, GFR, CMP, MDW, CBC, LIP, ADIFF #### [address] [address] Lymphocyte, Absolute 3.6 10 3/mcL Normal 0.8-3.9 [facility] Comment on above: Performed By: #### A ESTHER, GFR, CMP, MDW, CBC, LIP, ADIFF #### [address] [address] Lymphocytes/100 WBC (Bld) 38.7 % Normal 10.0-50.0 [facility] Comment on above: Performed By: #### A ESTHER, GFR, CMP, MDW, CBC, LIP, ADIFF #### [address] [address] Monocyte, Absolute 0.6 10 3/mcL Normal 0.2-1.0 [facility] Comment on above: Performed By: #### A ESTHER, GFR, CMP, MDW, CBC, LIP, ADIFF #### [address] [address] Monocytes/100 WBC (Bld) 6.7 % Normal 1.7-13.0 [facility] Comment on above: Performed By: #### A ESTHER, GFR, CMP, MDW, CBC, LIP, ADIFF #### [address] [address] Neutrophils/100 WBC (Bld) 53.0 % Normal 37.0-80.0 [facility] Comment on above: Performed By: #### A ESTHER, GFR, CMP, MDW, CBC, LIP, ADIFF #### [facility] [address] [place], [place] [address] .GFRon 04-10-2024 GFR Non- 92 ml/min/1.73sqm [facility] Comment on above: Result Comment: GFR Population mean for , Non- Americans Ages 20-29 = 116 mL/min/1.73 sq.m. Ages 30-39 = 107 mL/min/1.73 sq.m. Ages 40-49 = 99 mL/min/1.73 sq.m. Ages 50-59 = 93 mL/min/1.73 sq.m. Ages 60-69 = 85 mL/min/1.73 sq.m. Ages 70+ = 75 mL/min/1.73 sq.m. Chronic Kidney Disease: Less than 60 mL/min/1.73 square meters End Stage Renal Disease: Less than 15 mL/min/1.73 square meters Performed By: #### A ESTHER, GFR, CMP, MDW, CBC, LIP, ADIFF ####[place] [address] [place], [place] [address] GFR 112 ml/min/1.73sqm [facility] Comment on above: Result Comment: GFR Population mean for , Non- Americans Ages 20-29 = 116 mL/min/1.73 sq.m. Ages 30-39 = 107 mL/min/1.73 sq.m. Ages 40-49 = 99 mL/min/1.73 sq.m. Ages 50-59 = 93 mL/min/1.73 sq.m. Ages 60-69 = 85 mL/min/1.73 sq.m. Ages 70+ = 75 mL/min/1.73 sq.m. Chronic Kidney Disease: Less than 60 mL/min/1.73 square meters End Stage Renal Disease: Less than 15 mL/min/1.73 square meters Performed By: #### A ESTHER, GFR, CMP, MDW, CBC, LIP, ADIFF ####[facility] [place], [place] [address] .MDWon 04-10-2024 Monocyte Distribution Width 17.04 Normal 0.00-20.00 [facility] Comment on above: Result Comment: For ED adult patients suspected of sepsis, MDW<=20.0 does not rule out sepsis or risk of sepsis Performed By: #### A ESTHER, GFR, CMP, MDW, CBC, LIP, ADIFF #### [address] [address] .NEUABSon 04-10-2024 Neutrophil, Absolute 5.0 10 3/mcL Normal 2.9-6.2 [facility] Comment on above: Performed By: #### A ESTHER, GFR, CMP, MDW, CBC, LIP, ADIFF #### [place] [address] CBCon 04-10-2024 Erythrocyte distribution width (RBC) [Ratio] 12.4 % Normal 11.5-14.5 [facility] Comment on above: Performed By: #### A ESTHER, GFR, CMP, MDW, CBC, LIP, ADIFF #### [place] [address] Hematocrit (Bld) [Volume fraction] 37.9 % Normal 37.0-47.0 [facility] Comment on above: Performed By: #### A ESTHER, GFR, CMP, MDW, CBC, LIP, ADIFF #### [address] [address] Hgb 13.2 G/dL Normal 12.0-16.0 [facility] Comment on above: Performed By: #### A ESTHER, GFR, CMP, MDW, CBC, LIP, ADIFF #### [address] [address] MCH (RBC) [Entitic mass] 31.9 pg High 27.0-31.2 [facility] Comment on above: Performed By: #### A ESTHER, GFR, CMP, MDW, CBC, LIP, ADIFF #### [place] [address] MCHC 34.9 G/dL Normal 33.0-37.0 [facility] Comment on above: Performed By: #### A ESTHER, GFR, CMP, MDW, CBC, LIP, ADIFF #### [address] [address] MCV (RBC) [Entitic vol] 91.5 fL Normal 80.0-94.0 [facility] Comment on above: Performed By: #### A ESTHER, GFR, CMP, MDW, CBC, LIP, ADIFF #### [address] [address] Platelet 287 10 3/mcL Normal 130-400 [facility] Comment on above: Performed By: #### A ESTHER, GFR, CMP, MDW, CBC, LIP, ADIFF #### [address] [address] Platelet mean volume (Bld) [Entitic vol] 7.9 fL Normal 7.4-10.4 [facility] Comment on above: Performed By: #### A ESTHER, GFR, CMP, MDW, CBC, LIP, ADIFF #### [address] [address] RBC 4.15 10 6/mcL Low 4.20-5.40 [facility] Comment on above: Performed By: #### A ESTHER, GFR, CMP, MDW, CBC, LIP, ADIFF #### [address] [address] WBC 9.4 10 3/mcL Normal 4.6-10.8 [facility] Comment on above: Performed By: #### A ESTHER, GFR, CMP, MDW, CBC, LIP, ADIFF #### [address] [address] CMPon 04-10-2024 Albumin Level 4.3 G/dL Normal 3.5-5.0 [facility] Comment on above: Performed By: #### A ESTHER, GFR, CMP, MDW, CBC, LIP, ADIFF #### [address] [address] Albumin/Globulin [Mass ratio] 1.3 {ratio} Normal 1.1-2.5 [facility] Comment on above: Performed By: #### A ESTHER, GFR, CMP, MDW, CBC, LIP, ADIFF #### [address] [address] ALP [Catalytic activity/Vol] 102 U/L Normal 40-135 [facility] Comment on above: Performed By: #### A ESTHER, GFR, CMP, MDW, CBC, LIP, ADIFF #### [address] [address] ALT [Catalytic activity/Vol] 30 U/L Normal 14-59 [facility] Comment on above: Performed By: #### A ESTHER, GFR, CMP, MDW, CBC, LIP, ADIFF #### [address] [address] AST [Catalytic activity/Vol] 15 U/L Normal 10-40 [facility] Comment on above: Performed By: #### A ESTHER, GFR, CMP, MDW, CBC, LIP, ADIFF #### [address] [address] Bili Total 1.3 mg/dL High 0.2-1.0 [facility] Comment on above: Result Comment: Use of this assay is not recommended for patients undergoing treatment with eltrombopag due to the potential for falsely elevated results. Performed By: #### A ESTHER, GFR, CMP, MDW, CBC, LIP, ADIFF #### [address] [address] BUN/Creatinine Ratio 19 ratio Normal 7-27 [facility] Comment on above: Performed By: #### A ESTHER, GFR, CMP, MDW, CBC, LIP, ADIFF #### [address] [address] Calcium [Mass/Vol] 9.1 mg/dL Normal 8.4-10.2 [facility] Comment on above: Performed By: #### A ESTHER, GFR, CMP, MDW, CBC, LIP, ADIFF #### [address] [address] Chloride [Moles/Vol] 105 mmol/L Normal 98-107 [facility] Comment on above: Performed By: #### A ESTHER, GFR, CMP, MDW, CBC, LIP, ADIFF #### [address] [address] CO2 [Moles/Vol] 27 mmol/L Normal 22-29 [facility] Comment on above: Performed By: #### A ESTHER, GFR, CMP, MDW, CBC, LIP, ADIFF #### [address] [address] Creatinine [Mass/Vol] 0.74 mg/dL Normal 0.55-1.02 [facility] Comment on above: Result Comment: Test ing performed on [employer] Dimension EXL analyzer using a modified kinetic Sher technique. Performed By: #### A ESTHER, GFR, CMP, MDW, CBC, LIP, ADIFF #### [address] [address] Electrolyte Balance 8.0 mEq/L Normal 4.0-15.0 [facility] Comment on above: Performed By: #### A ESTHER, GFR, CMP, MDW, CBC, LIP, ADIFF #### [address] [address] Globulin 3.3 G/dL Normal [facility] Comment on above: Performed By: #### A ESTHER, GFR, CMP, MDW, CBC, LIP, ADIFF #### [address] [address] Glucose [Mass/Vol] 83 mg/dL Normal 70-105 [facility] Comment on above: Performed By: #### A ESTHER, GFR, CMP, MDW, CBC, LIP, ADIFF #### [address] [address] Potassium [Moles/Vol] 3.3 mmol/L Low 3.5-5.1 [facility] Comment on above: Performed By: #### A ESTHER, GFR, CMP, MDW, CBC, LIP, ADIFF #### [facility] [address] [place], [place] [address] Sodium [Moles/Vol] 140 mmol/L Normal 136-145 [facility] Comment on above: Performed By: #### A ESTHER, GFR, CMP, MDW, CBC, LIP, ADIFF #### [address] [place], [place] [address] Total Protein 7.6 G/dL Normal 6.4-8.2 [facility] Comment on above: Performed By: #### A ESTHER, GFR, CMP, MDW, CBC, LIP, ADIFF #### [address] [place], [place] [address] Urea nitrogen [Mass/Vol] 14 mg/dL Normal 7-18 [facility] Comment on above: Performed By: #### A ESTHER, GFR, CMP, MDW, CBC, LIP, ADIFF #### [address] [place], [place] [address] CT ABD/PELVIS W/ IV CONTRAST ONLYon 04-10-2024 CT ABD/PELVIS W/ IV CONTRAST ONLY ORIGINAL EXAMINATION: CT OF THE ABDOMEN AND PELVIS WITH CONTRAST 04/10/2024 10:04 pm TECHNIQUE: CT of the abdomen and pelvis was performed with the administration of intravenous contrast. Multiplanar reformatted images are provided for review. Automated exposure control, iterative reconstruction, and/or weight based adjustment of the mA/kV was utilized to reduce the radiation dose to as low as reasonably achievable. COMPARISON: 03/14/2024 HISTORY: ORDERING SYSTEM PROVIDED HISTORY: Reason for Exam: Appendectomy 3 weeks ago, fever, pain. Hx of skin CA pain FINDINGS: Lower Chest: Visualized lower thorax demonstrates no consolidation or pleural effusion. Organs: The liver demonstrates no biliary duct dilatation or gross mass. The gallbladder demonstrates no calcified gallstones or gross wall thickening. The pancreas demonstrates no evidence of mass, ductal dilatation, or inflammatory process. Spleen is normal in size. Left adrenal gland is normal in morphology. There is a small right adrenal nodule again noted with density measurement 18 Hounsfield units which may be compatible with adrenal adenoma. However, if the patient has a history of cancer, a metastatic process may not be fully excluded. Follow-up adrenal washout CT or chemical shift MRI study would be useful for further evaluation. Again noted few bilateral subcentimeter renal calculi, largest measuring 6 mm at right kidney, without hydronephrosis. Ureters are normal in caliber bilaterally. GI/Bowel: Stomach and duodenal sweep demonstrate no acute abnormality. Small bowel and colon are normal in caliber. There is prior appendectomy noted. There is no pericecal gas or fluid collection. Cecum demonstrate no gross wall thickening or inflammatory change. Pelvis: Urinary bladder is within normal limits. Uterus and ovaries are grossly normal in morphology. Again noted is IUD with the stem tip again seen at the right uterine fundus. Peritoneum/Retroperiton eum: Aorta is normal in caliber. Bones/Soft Tissues: IMPRESSION: 1. No acute intra-abdominal or pelvic process. There is prior appendectomy noted. There is no pericecal gas or fluid collection. Cecum demonstrate no gross wall thickening or inflammatory change. 2. Small right adrenal nodule again noted with density measurement 18 Hounsfield units which may be compatible with adrenal adenoma. However, if the patient has a history of cancer, a metastatic process may not be fully excluded. Follow-up adrenal washout CT or chemical shift MRI study would be useful for further evaluation. 3. There is no evidence of obstructive uropathy. Again noted few bilateral subcentimeter renal calculi, largest measuring 6 mm at right kidney, without hydronephrosis. 4. Again noted is IUD with the stem tip again seen at the right uterine fundus. Interpreted by: Jaxson Moya Preliminary Report By: Jaxson Moya Electronically signed By Jaxson Moya Dictated Date: 04/10/2024 10:15:46 PM Prelim Date: 04/10/2024 10:36:06 PM Sign Date: 04/10/2024 10:36:06 PM Ordering Provider: ROB HARDWICK Normal [facility] CVFLURVon 04-10-2024 FLU A PCR Negative Normal Negative [facility] Comment on above: Performed By: #### C VFLURV ####[facility] [place], [place] [address] FLU B PCR Negative Normal Negative [facility] Comment on above: Performed By: #### C VFLURV ####[facility] [place], [place] [address] RSV PCR Negative Normal Negative [facility] Comment on above: Performed By: #### C VFLURV ####[facility] [address] [place], [place] [address] SARS-CoV-2 (COVID-19) RNA JESSICA+probe Ql (Unsp spec) Negative Normal Negative [facility] Comment on above: Result Comment: Resu lts from the Xpert Xpress CoV-2/Flu/RSV plus test should be correlated with the clinical history, epidemiological data, and other data available to the clinical evaluating the patient. Performance of the Xpert Xpress CoV-2/Flu/RSV plus test has only been established in nasopharyngeal swab specimen. Erroneous test results might occur from improper specimen collection, failure to follow the recommended sample collection, handling and storage procedures, technical error, or sample mix-up. False negative results may occur if a virus is present at a level below the analytical limit of detection. Viral nucleic acid may persist in vivo, independent of virus viability. Detection of analyte target(s) does not imply that the corresponding virus(es) are infectious or are the causative agents for clinical symptoms. Recent patient exposure to FluMist or other live attenuated influenza vaccines may cause inaccurate positive results. Performed By: #### C VFLURV ####[facility] [address] [place], [place] [address] LABORATORYOrdered By: SYSTEM SYSTEM on 04-10-2024 Albumin BCP dye [Mass/Vol] 4.3 G/dL Normal 3.5 - 5.0 G/dL AO ADM SS Albumin/Globulin [Mass ratio] 1.3 {ratio} Normal 1.1 - 2.5 ratio AO ADM SS ALP [Catalytic activity/Vol] 102 U/L Normal 40 - 135 U/L AO ADM SS ALT With P-5'-P [Catalytic activity/Vol] 30 U/L Normal 14 - 59 U/L AO ADM SS AST With P-5'-P [Catalytic activity/Vol] 15 U/L Normal 10 - 40 U/L AO ADM SS Basophils (Bld) [#/Vol] 0.0 103/mcL Normal 0.0 - 0.2 10^3/mcL AO Workflow SS Basophils/100 WBC (Bld) 0.5 % Normal 0.0 - 2.5 % AO Workflow SS Bilirubin [Mass/Vol] 1.3 mg/dL High 0.2 - 1 .0 mg/dL AO ADM SS Comment on above: Interpretive Data: U se of this assay is not recommended for patients undergoing treatment with eltrombopag due to the potential for falsely elevated results. Calcium [Mass/Vol] 9.1 mg/dL Normal 8.4 - 10. 2 mg/dL AO ADM SS Chloride [Moles/Vol] 105 mmol/L Normal 98 - 10 7 mmol/L AO ADM SS CO2 [Moles/Vol] 27 mmol/L Normal 22 - 29 mmol/L AO ADM SS Creatinine [Mass/Vol] 0.74 mg/dL Normal 0.55 - 1.02 mg/dL AO ADM SS Comment on above: Interpretive Data: T esting performed on Siemens Dimension EXL analyzer using a modified kinetic Sher technique. Electrolyte Balance 8.0 mEq/L Normal 4.0 - 15 .0 mEq/L AO ADM SS Eosinophil, Absolute 0.1 103/mcL Normal 0.0 - 0 .4 10^3/mcL AO Workflow SS Eosinophils/100 WBC (Bld) 1.1 % Normal 0.0 - 7.0 % AO Workflow SS Erythrocyte distribution width (RBC) [Ratio] 12.4 % Normal 11.5 - 14.5 % AO Workflow SS GFR/1.73 sq M.predicted among blacks MDRD (S/P/Bld) [Vol rate/Area] 112 ml/min/1.73sqm Invalid Interpretation Code AO Chemistry S Comment on above: Interpretive Data: GFR Population mean for , Non- Americans Ages 20-29 = 116 mL/min/1.73 sq.m. Ages 30-39 = 107 mL/min/1.73 sq.m. Ages 40-49 = 99 mL/min/1.73 sq.m. Ages 50-59 = 93 mL/min/1.73 sq.m. Ages 60-69 = 85 mL/min/1.73 sq.m. Ages 70+ = 75 mL/min/1.73 sq.m. Chronic Kidney Disease: Less than 60 mL/min/1.73 square meters End Stage Renal Disease: Less than 15 mL/min/1.73 square meters GFR/1.73 sq M.predicted among non-blacks MDRD (S/P/Bld) [Vol rate/Area] 92 ml/min/1.73sqm Invalid Interpretation Code AO Chemistry S Comment on above: Interpretive Data: GFR Population mean for , Non- Americans Ages 20-29 = 116 mL/min/1.73 sq.m. Ages 30-39 = 107 mL/min/1.73 sq.m. Ages 40-49 = 99 mL/min/1.73 sq.m. Ages 50-59 = 93 mL/min/1.73 sq.m. Ages 60-69 = 85 mL/min/1.73 sq.m. Ages 70+ = 75 mL/min/1.73 sq.m. Chronic Kidney Disease: Less than 60 mL/min/1.73 square meters End Stage Renal Disease: Less than 15 mL/min/1.73 square meters Globulin 3.3 G/dL Invalid Interpretation Code AO ADM SS Glucose [Mass/Vol] 83 mg/dL Normal 70 - 105 mg/dL AO ADM SS Hematocrit (Bld) [Volume fraction] 37.9 % Normal 37.0 - 47.0 % AO Workflow SS Hemoglobin (Bld) [Mass/Vol] 13.2 G/dL Normal 12.0 - 16.0 G/dL AO Workflow SS INR Coag (PPP) [Relative time] 1.0 {INR} Invalid Interpretation Code AO HemoHub SS Comment on above: Interpretive Data: Aj rain [employer] (CHEST, 1992, 102:312S-25S) recommended therapeutic range for oral anticoagulant therapy is: LOW RISK: Prophylaxis of venous thrombosis INR: 2.0-3.0 Treatment of pulmonary embolism 2.0-3.0 Prevention of systemic embolism 2.0-3.0 HIGH RISK: Mechanical prosthetic valves 2.5-3.5 Lactate [Moles/Vol] 1.3 mmol/L Normal 0.4 - 2. 0 mmol/L AO ADM SS Lipase [Catalytic activity/Vol] 39 U/L Normal 16 - 77 U/L AO ADM SS Lymphocytes (Bld) [#/Vol] 3.6 103/mcL Normal 0.8 - 3.9 10^3/mcL AO Workflow SS Lymphocytes/100 WBC (Bld) 38.7 % Normal 10.0 - 50.0 % AO Workflow SS MCH (RBC) [Entitic mass] 31.9 pg High 27.0 - 31.2 pg AO Workflow SS MCHC 34.9 G/dL Normal 33.0 - 37.0 G/dL AO Workflow SS MCV (RBC) [Entitic vol] 91.5 fL Normal 80.0 - 94.0 fL AO Workflow SS Monocyte distribution width Auto (Bld) [Entitic vol] 17.04 1 Normal 0.00 - 20.00 AO Workflow SS Comment on above: Result Comment: For ED adult patients suspected of sepsis, MDW<=20.0 does not rule out sepsis or risk of sepsis Monocytes (Bld) [#/Vol] 0.6 103/mcL Normal 0.2 - 1.0 10^3/mcL AO Workflow SS Monocytes/100 WBC (Bld) 6.7 % Normal 1.7 - 13.0 % AO Workflow SS Neutrophils (Bld) [#/Vol] 5.0 103/mcL Normal 2.9 - 6.2 10^3/mcL AO Workflow SS Neutrophils/100 WBC (Bld) 53.0 % Normal 37.0 - 80.0 % AO Workflow SS Platelet mean volume (Bld) [Entitic vol] 7.9 fL Normal 7.4 - 10.4 fL AO Workflow SS Platelets (Bld) [#/Vol] 287 103/mcL Normal 130 - 400 10^3/mcL AO Workflow SS Potassium [Moles/Vol] 3.3 mmol/L Low 3.5 - 5.1 mmol/L AO ADM SS Protein [Mass/Vol] 7.6 G/dL Normal 6.4 - 8.2 G/dL AO ADM SS PT Coag (PPP) [Time] 11.1 s Normal 9.0 - 1 4.4 seconds AO HemoHub SS RBC (Bld) [#/Vol] 4.15 106/mcL Low 4.20 - 5.4 0 10^6/mcL AO Workflow SS Sodium [Moles/Vol] 140 mmol/L Normal 136 - 145 mmol/L AO ADM SS Urea nitrogen [Mass/Vol] 14 mg/dL Normal 7 - 18 mg/dL AO ADM SS Urea nitrogen/Creatinine [Mass ratio] 19 ratio Normal 7 - 27 ratio AO ADM SS WBC (Bld) [#/Vol] 9.4 103/mcL Normal 4.6 - 10.8 10^3/mcL AO Workflow SS LABORATORYOrdered By: Arturo Wheeler on 04-10-2024 Appearance (U) Clear (04/10/24 8:37 PM) Normal Clear AO Auto Urine SS Bilirubin Ql (U) Negative (04/10/24 8:37 PM) Normal Negative AO Auto Urine SS Color (U) Yellow (04/10/24 8:37 PM) Normal AO Auto Urine SS FLUAV RNA JESSICA+probe Ql (Resp) Negative (04/10/24 8:37 PM) Normal Negative AO Auto Urine SS FLUBV RNA JESSICA+probe Ql (Resp) Negative (04/10/24 8:37 PM) Normal Negative AO Auto Urine SS Glucose Test strip (U) [Mass/Vol] Negative Normal Negative AO Auto Urine SS HCG ( test) Ql Negative (04/10/24 8:37 PM) Normal AO Manual Urine SS Hemoglobin Auto test strip (U) [Mass/Vol] Negative (04/10/24 8:37 PM) Normal Negative AO Auto Urine SS Ketones Ql (U) Negative Normal Negative AO Auto Ur ine SS test (u) int Not detected Invalid Interpretation Code AO Manual Urine SS RSV RNA JESSICA+probe Ql (Resp) Negative (04/10/24 8:37 PM) Normal Negative AO Auto Urine SS SARS-CoV-2 (COVID-19) RNA JESSICA+probe Ql (Resp) Negative 5 (04/10/24 8:37 PM) Normal Negative AO Auto Urine SS Comment on above: Interpretive Data: R esults from the Xpert Xpress CoV-2/Flu/RSV plus test should be correlated with the clinical history, epidemiological data, and other data available to the clinical evaluating the patient. Performance of the Xpert Xpress CoV-2/Flu/RSV plus test has only been established in nasopharyngeal swab specimen. Erroneous test results might occur from improper specimen collection, failure to follow the recommended sample collection, handling and storage procedures, technical error, or sample mix-up. False negative results may occur if a virus is present at a level below the analytical limit of detection. Viral nucleic acid may persist in vivo, independent of virus viability. Detection of analyte target(s) does not imply that the corresponding virus(es) are infectious or are the causative agents for clinical symptoms. Recent patient exposure to FluMist or other live attenuated influenza vaccines may cause inaccurate positive results. UA Leuk Est Negative (04/10/24 8:37 PM) Normal Negative AO Auto Urine SS UA Nitrite Negative (04/10/24 8:37 PM) Normal Negative AO Auto Urine SS UA pH 6.0 (04/10/24 8:37 PM) Normal 5.0 - 8.0 AO Auto Urine SS UA Protein Negative Normal Negative AO Auto Urine SS UA Spec Grav >=1.030 *ABN* (04/10/24 8:37 PM) Invalid Interpretation Code 1.015-1.025 AO Auto Urine SS UA Specimen Type Void (04/10/24 8:37 PM) Normal AO Auto Urine SS UA Urobilinogen 0.2 E.U./dL Normal 0.2-1.0 AO Auto Urine SS LACon 04-10-2024 Lactic Acid Lvl 1.3 mmol/L Normal 0.4-2.0 [facility] Comment on above: Performed By: #### L AC, PRO #### [address] [address] LIPon 04-10-2024 Lipase Level 39 U/L Normal 16-77 [facility] Comment on above: Performed By: #### A ESTHER, GFR, CMP, MDW, CBC, LIP, ADIFF #### [address] [address] PREGUon 04-10-2024 HCG ( test) Ql (U) Negative Normal [facility] Comment on above: Performed By: #### U A, PREGU ####[address] [address] test (u) int Not detected Invalid Interpretation Code [facility] Comment on above: Performed By: #### U A, PREGU ####[address] [address] PROon 04-10-2024 PT Coag (PPP) [Time] 11.1 s Normal 9.0-14.4 [facility] Comment on above: Performed By: #### L AC, PRO #### [address] [address] PT International Ratio 1.0 Normal [facility] Comment on above: Result Comment: [employer] (CHEST, 1992, 102:312S-25S) recommended therapeutic range for oral anticoagulant therapy is: LOW RISK: Prophylaxis of venous thrombosis INR: 2.0-3.0 Treatment of pulmonary embolism 2.0-3.0 Prevention of systemic embolism 2.0-3.0 HIGH RISK: Mechanical prosthetic valves 2.5-3.5 Performed By: #### L AC, PRO #### [place] [place] [id number] UAon 04-10-2024 Color (U) Yellow Normal [facility] Comment on above: Performed By: #### U A, PREGU ####[facility] [address] Glucose (U) [Mass/Vol] Negative Normal Negative [facility] Comment on above: Performed By: #### U A, PREGU ####[facility] [address] Ketones Ql (U) Negative Normal Negative [facility] Comment on above: Performed By: #### U A, PREGU ####[place] [address] UA Appear Clear Normal Clear [facility] Comment on above: Performed By: #### U A, PREGU ####[place] [address] UA Blood Negative Normal Negative [facility] Comment on above: Performed By: #### U A, PREGU ####[place] [address] [address] UA Leuk Est Negative Normal Negative [facility] Comment on above: Performed By: #### U A, PREGU ####[address] [address] UA Nitrite Negative Normal Negative [facility] Comment on above: Performed By: #### U A, PREGU ####[address] [place] [address] UA pH 6.0 Normal 5.0 - 8.0 [facility] Comment on above: Performed By: #### U A, PREGU ####[facility] [address] UA Protein Negative Normal Negative [facility] Comment on above: Performed By: #### U A, PREGU ####[place] [address] [place], [place] [address] UA Spec Grav >=1.030 Abnormal 1.015-1.025 [facility] Comment on above: Performed By: #### U A, PREGU ####[place] [address] [place], [place] [address] UA Specimen Type Void Normal [facility] Comment on above: Performed By: #### U A, PREGU ####[facility] [address] [place], [place] [address] UA Urobilinogen 0.2 E.U./dL Normal 0.2-1.0 [facility] Comment on above: Performed By: #### U A, PREGU ####[facility] [place], [place] [address] Urobilinogen (U) [Mass/Vol] Negative Normal Negative [facility] Comment on above: Performed By: #### U A, PREGU ####[facility] [place], [place] [address] XR CHEST 1 VIEWon 04-10-2024 XR CHEST 1 VIEW ORIGINAL EXAMINATION: ONE XRAY VIEW OF THE CHEST04/10/2024 8:55 pm COMPARISON: Chest radiographs 03/24/2024 and 03/15/2024. HISTORY: ORDERING SYSTEM PROVIDED HISTORY: Reason for Exam: patient sent to the ER by urgent care for high heart rate, currently 98 in triage. also reports a fever for a couple of days fever, pain or tachypnea FINDINGS: Cardiomediastinal contours are within normal limits. No focal consolidation or pulmonary edema. No pneumothorax or pleural effusion. No acute osseous abnormalities. IMPRESSION: No acute radiographic process. Preliminary Report was Dictated by a Resident I have personally reviewed all of the images of this examination and agree with the resident findings and interpretation. Interpreted by: Andrew Lezama MD Preliminary Report By: Chrissy Hughes Electronically signed By Andrew Lezama MD Dictated Date: 04/10/2024 8:58:31 PM Prelim Date: 04/10/2024 9:00:07 PM Sign Date: 04/10/2024 9:57:53 PM Ordering Provider: [facility] HNO ID: [id number] Author: DOT SERVIN RT(R) Service: Radiology Author Type: Certified First Assistant Type: Allied Health Filed: 03/28/2024 17:29 Note Text: Radiology Service Progress Note PATIENT NAME: Fadumo Hensley DATE OF SERVICE: March 28, 2024 TIME: 5:28 PM PATIENT IDENTITY VERIFICATION COMPLETED USING TWO (2) IDENTIFIERS: Name and Date of confirmed by patient verbally. FALL SCREENING: Has the patient had 2 falls in the last year or 1 fall with injury or currently using an Ambulatory Assistive Device (Walker, Cane, Wheelchair, Crutches, etc.)? Emergency Room Patient: Screened in ED PATIENT GENDER DATA: Female. status: : No status: NO. PATIENT RELEVANT IMPLANT DATA REVIEWED: Not Applicable PATIENT PRESENTS WITH AN IMPLANTABLE OR ATTACHED SOCIAL AND POLITICAL STUDIES PROFESSOR: No RADIOLOGY DEPARTMENT: General X-ray: Exam(s) Completed: Chest X-Ray PERIPHERAL IV DATA: Not applicable SIGNED BY: RT Ang(R) March 28, 2024 5:[address] [facility] CBC W Auto Differential pane l (Bld)on 03-28-2024 Basophils (Bld) [#/Vol] 0.04 10*3/uL Normal <0.11 [facility] Comment on above: Order Comment: Gray briones Type: BLOOD SPECIMEN Ordering Facility: [facility] Address: [address] [place] [address] Performed By: #### 5 7021-8 #### [facility] CLIA [id number] [address] [place] [address] [place] Basophils/100 WBC (Bld) 0.5 % [facility] Comment on above: Order Comment: Gray briones Type: BLOOD SPECIMEN Ordering Facility: [facility] Address: [address] [place] [address] Performed By: #### 5 7021-8 #### [facility] CLIA [id number] [address] [place] [address] [place] Differential cell count method Nom (Bld) Auto Normal [facility] Comment on above: Order Comment: Speci men Type: BLOOD SPECIMEN Ordering Facility: [facility] Address: [address] [place] [address] Performed By: #### 5 7021-8 #### [facility] CLIA [id number] [address] [place] [address] [place] Eosinophils (Bld) [#/Vol] 0.08 10*3/uL Normal <0.46 [facility] Comment on above: Order Comment: Speci men Type: BLOOD SPECIMEN Ordering Facility: [facility] Address: [address] [place] [address] Performed By: #### 5 7021-8 #### [facility] CLIA [id number] [address] Eosinophils/100 WBC (Bld) 1.0 % Normal [facility] Comment on above: Order Comment: Speci men Type: BLOOD SPECIMEN Ordering Facility: [facility] Address: [address] [place] [address] Performed By: #### 5 7021-8 #### [facility] CLIA [id number] [address] Erythrocyte distribution width (RBC) [Ratio] 11.8 % Normal 11.5-15.0 [facility] Comment on above: Order Comment: Speci men Type: BLOOD SPECIMEN Ordering Facility: [facility] Address: [address] [place] [address] Performed By: #### 5 7021-8 #### [facility] CLIA [id number] [address] [place] Hematocrit (Bld) [Volume fraction] 35.6 % Low 36.0-46.0 [facility] Comment on above: Order Comment: Speci men Type: BLOOD SPECIMEN Ordering Facility: [facility] Address: [address] [place] [address] Performed By: #### 5 7021-8 #### [facility] CLIA [id number] [address] [place] Hemoglobin (Bld) [Mass/Vol] 12.1 g/dL Normal 11.5-15.5 [facility] Comment on above: Order Comment: Speci men Type: BLOOD SPECIMEN Ordering Facility: [facility] Address: [address] [place] [address] Performed By: #### 5 7021-8 #### [facility] CLIA [id number] [address] [place] Immature granulocytes (Bld) [#/Vol] 0.03 10*3/uL Normal <0.10 [facility] Comment on above: Order Comment: Speci men Type: BLOOD SPECIMEN Ordering Facility: [facility] Address: [address] [place] [address] Performed By: #### 5 7021-8 #### [facility] CLIA [id number] [address] Immature granulocytes/100 WBC (Bld) 0.4 % Normal [facility] Comment on above: Order Comment: Speci men Type: BLOOD SPECIMEN Ordering Facility: [facility] Address: [address] [place] [address] Performed By: #### 5 7021-8 #### [facility] CLIA [id number] [address] [place] Lymphocytes (Bld) [#/Vol] 1.96 10*3/uL Normal 1.00-4.00 [facility] Comment on above: Order Comment: Speci men Type: BLOOD SPECIMEN Ordering Facility: [facility] Address: [address] [place] [address] Performed By: #### 5 7021-8 #### [facility] CLIA [id number] [address] Lymphocytes/100 WBC (Bld) 24.1 % Normal [facility] Comment on above: Order Comment: Speci men Type: BLOOD SPECIMEN Ordering Facility: [facility] Address: [address] [place] [address] Performed By: #### 5 7021-8 #### [facility] CLIA [id number] [address] [place] [address] [place] MCH (RBC) [Entitic mass] 31.3 pg Normal 26.0-34.0 [facility] Comment on above: Order Comment: Speci men Type: BLOOD SPECIMEN Ordering Facility: [facility] Address: [facility] [place] [address] Performed By: #### 5 7021-8 #### [facility] CLIA [id number] [address] [place] MCHC (RBC) [Mass/Vol] 34.0 g/dL Normal 30.5-36.0 [facility] Comment on above: Order Comment: Speci men Type: BLOOD SPECIMEN Ordering Facility: [facility] Address: [address] [place] [address] Performed By: #### 5 7021-8 #### [facility] CLIA [id number] [address] [place] MCV (RBC) [Entitic vol] 92.0 fL Normal 80.0-100.0 [facility] Comment on above: Order Comment: Speci men Type: BLOOD SPECIMEN Ordering Facility: [facility] Address: [address] [place] [address] Performed By: #### 5 7021-8 #### [facility] CLIA [id number] [address] [place] Monocytes (Bld) [#/Vol] 0.55 10*3/uL Normal <0.87 [facility] Comment on above: Order Comment: Speci men Type: BLOOD SPECIMEN Ordering Facility: [facility] Address: [address] [place] [address] Performed By: #### 5 7021-8 #### [facility] CLIA [id number] [address] Monocytes/100 WBC (Bld) 6.8 % Normal [facility] Comment on above: Order Comment: Speci men Type: BLOOD SPECIMEN Ordering Facility: [facility] Address: [address] [place] [address] Performed By: #### 5 7021-8 #### [facility] CLIA [id number] [address] [place] [address] [facility] [place] Neutrophils (Bld) [#/Vol] 5.48 10*3/uL Normal 1.45-7.50 [facility] Comment on above: Order Comment: Speci men Type: BLOOD SPECIMEN Ordering Facility: [facility] Address: [address] [place] [address] Performed By: #### 5 7021-8 #### [facility] CLIA [id number] [address] [place] Neutrophils/100 WBC (Bld) 67.2 % Normal [facility] Comment on above: Order Comment: Speci men Type: BLOOD SPECIMEN Ordering Facility: [facility] Address: [address] [place] [address] Performed By: #### 5 7021-8 #### [facility] CLIA [id number] [address] [place] Nucleated RBC (Bld) [#/Vol] 10*3/uL Normal <0.01 [facility] Comment on above: Order Comment: Speci men Type: BLOOD SPECIMEN Ordering Facility: [facility] Address: [address] [place] [address] Performed By: #### 5 7021-8 #### [facility] CLIA [id number] [address] [place] Nucleated RBC/100 WBC (Bld) [Ratio] 0.0 /100 WBC Normal [facility] Comment on above: Order Comment: Speci men Type: BLOOD SPECIMEN Ordering Facility: [facility] Address: [address] [place] [address] Performed By: #### 5 7021-8 #### [facility] LABORATORY CLIA [id number] [address] [place] [address] [place] Platelet mean volume (Bld) [Entitic vol] 9.7 fL Normal 9.0-12.7 [facility] Comment on above: Order Comment: Speci men Type: BLOOD SPECIMEN Ordering Facility: [facility] Address: [address] [place] [address] Performed By: #### 5 7021-8 #### [facility] CLIA [id number] [address] [place] [address] [place] Platelets (Bld) [#/Vol] 249 10*3/uL Normal 150-400 [facility] Comment on above: Order Comment: Speci men Type: BLOOD SPECIMEN Ordering Facility: [facility] Address: [address] [place] [address] Performed By: #### 5 7021-8 #### [facility] CLIA [id number] [address] [place] [address] [place] RBC (Bld) [#/Vol] 3.87 10*6/uL Low 3.90-5.20 [facility] Comment on above: Order Comment: Speci men Type: BLOOD SPECIMEN Ordering Facility: [facility] Address: [address] [place] [address] Performed By: #### 5 7021-8 #### [facility] CLIA [id number] [address] OF [facility] WBC (Bld) [#/Vol] 8.14 10*3/uL Normal 3.70-11.00 [facility] Comment on above: Order Comment: Speci men Type: BLOOD SPECIMEN Ordering Facility: [facility] Address: [address] [place] [address] Performed By: #### 5 7021-8 #### [facility] CLIA [id number] [address] OF [facility] Comprehensive metabolic 2000 panelon 03-28-2024 Albumin [Mass/Vol] 4.1 g/dL Normal 3.9-4.9 [facility] Comment on above: Order Comment: Speci men Type: BLOOD SPECIMEN Ordering Facility: [facility] Address: [address] [place] [address] Performed By: #### 2 4323-8, HSTNT, 81077-9 #### [facility] CLIA [id number] [address] OF [place] ALP [Catalytic activity/Vol] 87 U/L Normal 34-123 [facility] Comment on above: Order Comment: Speci men Type: BLOOD SPECIMEN Ordering Facility: [facility] Address: [address] [place] [address] Performed By: #### 2 4323-8, HSTNT, 08176-3 #### [facility] CLIA [id number] [address] [place] [address] [place] ALT [Catalytic activity/Vol] 30 U/L Normal 7-38 [facility] Comment on above: Order Comment: Speci men Type: BLOOD SPECIMEN Ordering Facility: [facility] Address: [address] [place] [address] Performed By: #### 2 4323-8, HSTNT, 77246-2 #### [facility] CLIA [id number] [address] [place] [address] [place] Anion gap [Moles/Vol] 10 mmol/L Normal 8-15 [facility] Comment on above: Order Comment: Speci men Type: BLOOD SPECIMEN Ordering Facility: [facility] Address: [address] [place] [address] Performed By: #### 2 4323-8, HSTNT, #### [facility] CLIA [id number] [address] [place] [address] [place] AST [Catalytic activity/Vol] 26 U/L Normal 13-35 [facility] Comment on above: Order Comment: Speci men Type: BLOOD SPECIMEN Ordering Facility: [facility] Address: [address] [place] [address] Performed By: #### 2 4323-8, HSTNT, #### [facility] CLIA [id number] [address] [place] [address] [place] Bilirubin [Mass/Vol] 1.8 mg/dL High 0.2-1.3 [facility] Comment on above: Order Comment: Speci men Type: BLOOD SPECIMEN Ordering Facility: [facility] Address: [address] [place] [address] Performed By: #### 2 4323-8, HSTNT, 49197-9 #### [facility] CLIA [id number] [address] [place] Calcium [Mass/Vol] 9.0 mg/dL Normal 8.5-10.2 [facility] Comment on above: Order Comment: Speci men Type: BLOOD SPECIMEN Ordering Facility: [facility] Address: [address] [place] [address] Performed By: #### 2 4323-8, HSTNT, #### [facility] CLIA [id number] [address] [place] [address] [place] Chloride [Moles/Vol] 103 mmol/L Normal 98-107 [facility] Comment on above: Order Comment: Speci men Type: BLOOD SPECIMEN Ordering Facility: [facility] Address: [address] [place] [address] Performed By: #### 2 4323-8, HSTNT, #### [facility] CLIA [id number] [address] [place] [address] [place] CO2 [Moles/Vol] 23 mmol/L Normal 22-30 [facility] Comment on above: Order Comment: Speci men Type: BLOOD SPECIMEN Ordering Facility: [facility] Address: [address] [place] [address] Performed By: #### 2 4323-8, HSTNT, #### [facility] CLIA [id number] [address] [place] [address] [place] Creatinine [Mass/Vol] 0.59 mg/dL Normal 0.58-0.96 [facility] Comment on above: Order Comment: Speci men Type: BLOOD SPECIMEN Ordering Facility: [facility] Address: [address] [place] [address] Performed By: #### 2 4323-8, HSTNT, #### [facility] CLIA [id number] [address] OF [place] Creatinine and Glomerular filtration rate.predicted panel (S/P/Bld) 125 mL/min/1.73m??? Normal >=60 [facility] Comment on above: Order Comment: Speci men Type: BLOOD SPECIMEN Ordering Facility: [facility] Address: [address] [place] [address] Result Comment: Ajmila mated Glomerular Filtration Rate (eGFR) is calculated using the 2020 CKD-EPI creatinine equation. This equation utilizes serum creatinine, sex, and age as parameters. The creatinine assay has traceable calibration to isotope dilution-mass spectrometry. Refer to KDIGO guidelines for clinical interpretation. In patients with unstable renal function, e.g. those with acute kidney injury, the eGFR may not accurately reflect actual GFR. Performed By: #### 2 4323-8, HSTNT, #### [facility] CLIA [id number] [address] [place] [address] [place] Glucose [Mass/Vol] 91 mg/dL Normal 74-99 [facility] Comment on above: Order Comment: Gray briones Type: BLOOD SPECIMEN Ordering Facility: [facility] Address: [address] [place] [address] Result Comment: The [place] Diabetes Association (ADA) provides guidance for cutoff values for fasting glucose and random glucose. The ADA defines fasting as no caloric intake for at least 8 hours. Fasting plasma glucose results between 100 to 125 mg/dL indicate increased risk for diabetes (prediabetes). Fasting plasma glucose results greater than or equal to 126 mg/dL meet the criteria for diagnosis of diabetes. In the absence of unequivocal hyperglycemia, results should be confirmed by repeat testing. In a patient with classic symptoms of hyperglycemia or hyperglycemic crisis, random plasma glucose results greater than or equal to 200 mg/dL meet the criteria for diagnosis of diabetes. Reference: Standards of Medical Care in Diabetes 2016, [place] [employer]. Diabetes Care. 2016.39(Suppl 1). Performed By: #### 2 4323-8, HSTNT, #### [facility] CLIA [id number] [address] [place] [address] [place] Potassium [Moles/Vol] 4.0 mmol/L Normal 3.7-5.1 [facility] Comment on above: Order Comment: Gray briones Type: BLOOD SPECIMEN Ordering Facility: [facility] Address: [address] [place] [address] Performed By: #### 2 4323-8, HSTNT, #### [facility] CLIA [id number] [address] [place] [address] [place] Protein [Mass/Vol] 7.0 g/dL Normal 6.3-8.0 [facility] Comment on above: Order Comment: Gray briones Type: BLOOD SPECIMEN Ordering Facility: [facility] Address: [address] [place] [id number] Performed By: #### 2 4323-8, HSTNT, #### [facility] CLIA [id number] [address] Sodium [Moles/Vol] 136 mmol/L Normal 136-144 [facility] Comment on above: Order Comment: Speci men Type: BLOOD SPECIMEN Ordering Facility: [facility] Address: [address] [place] [address] Performed By: #### 2 4323-8, HSTNT, #### [facility] CLIA [id number] [address] [place] Urea nitrogen [Mass/Vol] 11 mg/dL Normal 7-21 [facility] Comment on above: Order Comment: Speci men Type: BLOOD SPECIMEN Ordering Facility: [facility] Address: [address] [place] [address] Performed By: #### 2 4323-8, HSTNT, #### [facility] CLIA [id number] [address] ED NOTEon 03-28-2024 ED NOTE HNO ID: [id number] Author: VIRGINIE WANG RN Service: Nursing Author Type: Registered Nurse Type: ED Notes Filed: 03/28/2024 18:50 Note Text: Pt discharged to home in stable condition. No noted distress - respirations equal and unlabored. AVS and medications reviewed with patient at bedside. Pt verbalized understanding and importance of follow up care. No questions for this RN at this time. [facility] ED NOTE HNO ID: [id number] Author: ANNAMARIE LERMA RN Service: ? Author Type: Registered Nurse Type: ED Notes Filed: 03/28/2024 17:14 Note Text: Report off to virginie PEREA at this time [facility] ED PROV NOTEon 03-28-2024 ED PROV NOTE HNO ID: [id number] Author: ANKITA STERLING PA-C Service: ? Author Type: Physician Air Crew Member Type: ED Provider Notes Filed: 03/28/2024 18:16 Note Text: ED Provider Note Patient Name: Fadumo Hensley : 1995 SERVICE DATE: 03/28/24 History Patient presents with: Anxiety: Pt was driving to have a root canal when she was having hot flashes, breathing fast, cramping in her hands and felt like she was going to pass out. She drank cran-grape juice and ate a candy bar and her hands cramps improved. Not as foggy as she was earlier 28-year-old female presents for hot flashes and breathing fast and cramping in both hands when she was driving to her dentist office, she states she feels slightly better now but because of her symptoms she wanted evaluation, denies any chest pain back pain abdominal pain, PAST MEDICAL HISTORY No date: Appendicitis 09/26/2019: ASCUS with positive high risk HPV cervical 11/29/2011: Asthma 11/27/2007: ATTN DEFICIT NONHYPERACT 09/07/2015: Bulging of intervertebral disc between L4 and L5 and L5 and S1 04/29/2010: Chest pain 09/23/2013: Chlamydia infection 05/26/2011: Depression 08/02/2012: Depression complicating , antepartum 11/08/2022: Diet controlled gestational diabetes mellitus (GDM) in second trimester Comment: 11/08/22- 2 levels out of 3 elevated. Supplies and referrals ordered. Sulma Bartholomew APRN.CNM No date: Generalized anxiety disorder No date: GERD (gastroesophageal reflux disease) 2018: Hepatitis C Comment: 2019 cured after medication course. No date: High grade squamous intraepithelial cervical dysplasia 2014: History of suicide attempt Comment: cutting wrist No date: Juvenile osteochondrosis of lower extremity, excluding foot Comment: 2004, resolved No date: Kidney stones 05/26/2011: Migraine headache No date: other Comment: Sever's Disease, 2006, resolved 01/27/2010: Other acne No date: Pain in joint, site unspecified Comment: AC joint tear, 200504/18/2012: Patient requested diagnostic testing Comment: 04/18/2012 Patient desires early screening in with sequential testing. 04/18/2012: Poor support system complicating Comment: 04/18/2012The father of the baby is aware that she is , but does not wish to be involved. Patient states her parents are very supportive. Patient is tearful for some of this visit today due to the father of the baby. She states he has put pressure on her in the past to have an , but she does not wish to do that. Patient was given a brochure on the care center and WIC. No date: depression No date: PTSD (post-traumatic stress disorder) 01/27/2010: Rosacea 04/22/2012: Rubella non-immune status No date: Skin cancer 04/22/2012: Teen Comment: July 04, 2012 Flu vaccine given 01/27/2010: Telangiectasia No date: Tobacco use disorder PAST SURGICAL HISTORY No date: APPENDECTOMY 05/11/2023: CERVIX UTERI CONIZA LP ELCTRO EXCI Comment: at [facility]-Dr. Millan 01/01/2010: PAST SURGICAL HISTORY OF Comment: Removal of 4 Mereta Teeth No date: PAST SURGICAL HISTORY OF Comment: basal cell carcinoma removed from scalp FAMILY HISTORY Problem Relation Age of Onset Skin Cancer Mother Hypertension Mother Heart Failure Mother Liver Cancer Mother 66 Heart Father TRIPLE BYPASS SURGERY Hypertension Father Diabetes Father Diabetes Sister No Known Problems Sister No Known Problems Sister No Known Problems Brother No Known Problems Brother No Known Problems Brother Heart Maternal Grandmother from heart problems Heart Maternal Grandfather from heart problems Cancer Maternal Grandfather lung Hypertension Maternal Grandfather No Known Problems Daughter Social History Tobacco Use Smoking status: Former Current packs/day: 1.00 Average packs/day: 1 pack/day for 9.0 years (9.0 ttl pk-yrs) Types: Cigarettes Smokeless tobacco: Current Tobacco comments: Vapes Vaping Use Vaping status: current everyday user Substances: Nicotine Devices: Pre-filled or refillable cartridge Substance and Sexual Activity Alcohol use: Not Currently Drug use: Not Currently Types: Heroin, Marijuana Comment: Patient states I have used multiple drugs in the past Sexual activity: Yes Partners: Male control/protection: Inserts ALLERGIES Allergen Reactions Zyrtec [Cetirizine * Intolerance tremors Review of Systems Constitutional: Positive for fatigue. Negative for chills and fever. HENT: Negative for trouble swallowing. Eyes: Negative for photophobia. Respiratory: Negative for chest tightness, shortness of breath and wheezing. Cardiovascular: Positive for palpitations. Negative for chest pain and leg swelling. Gastrointestinal: Negative for abdominal pain, diarrhea, nausea and vomiting. Genitourinary: Negative for dysuria, flank pain, h (more content not included)... Normal [facility] EKGon 03-28-2024 Electrocardiogram Ventricular Rate : 8 5 BPM Atrial Rate : 85 BPM P-R Interval : 132 ms QRS Duration : 134 ms Q-T Interval : 412 ms QTC Calculation(Bazett) : 490 ms Calculated P [place] : 66 degrees Calculated R [place] : 79 degrees Calculated T [place] : 57 degrees NORMAL SINUS RHYTHM RIGHT BUNDLE BRANCH BLOCK ABNORMAL ECG NO STEMI. Confirmed by ALAINA AGUILERA DO ([id number]), newspaper managing editor IRVIN JIMENEZ ([id number]) on 03/31/2024 8:26:12 AM NAME : FADUMO HENSLEY PID : [id number] : 1995 Gender : Female Race : ORD : Procedure Date : Mar 28 2024 17:01:43 Edit Date : Mar 31 2024 08:33:30 Diagnosis: NORMAL SINUS RHYTHM RIGHT BUNDLE BRANCH BLOCK ABNORMAL ECG NO STEMI. Confirmed by ALAINA AGUILERA DO ([id number]), newspaper managing editor IRVIN JIMENEZ ([id number]) on 03/31/2024 8:26:12 AM Test Reason : Location : 1 : ER ED Overread By : ALAINA AGUILERA DO Edited By : IRVIN JIMENEZ Referred By : , Acquired by : [id number], Normal [facility] HIGH SENSITIVITY TROPONIN To n 03-28-2024 Troponin T.cardiac High sensitivity method [Mass/Vol] <6 Normal <12 [facility] Comment on above: Order Comment: Gray briones Type: BLOOD SPECIMEN Ordering Facility: [facility] Address: [address] [place] [address] Performed By: #### 2 4323-8, HSTNT, #### [facility] CLIA [id number] [address] [place] [address] [place] Magnesium SerPl-mCncon 03-28 Magnesium [Mass/Vol] 1.9 mg/dL Normal 1.7-2.3 [facility] Comment on above: Order Comment: Gray briones Type: BLOOD SPECIMEN Ordering Facility: [facility] Address: [address] [place] [address] Performed By: #### 2 4323-8, HSTNT, #### [facility] CLIA [id number] [address] [place] [address] [place] XR CHEST 2V FRONTAL/LATon XR CHEST 2V FRONTAL/LAT * * *Final Report* * * DATE OF EXAM: Mar 28 2024 5:28PM MDX 5291 - XR CHEST 2V FRONTAL/LAT / PROCEDURE REASON: Shortness of breath * * * * Physician Interpretation * * * * EXAMINATION: CHEST RADIOGRAPH (2 VIEW FRONTAL and LATERAL) CLINICAL HISTORY: Shortness of breath MQ: XC2_6 EXAM DATE/TIME: 03/28/2024 5:28 PM COMPARISON: No relevant prior studies available. RESULT: Lines, tubes, and devices: None. Lungs and pleura: No consolidation. No lung mass. No pleural effusion. No pneumothorax. Cardiomediastinal silhouette: Normal cardiomediastinal silhouette. Bones and soft tissues: Unremarkable. IMPRESSION: No acute radiographic abnormality. Car Rental Service Attendant: PINKY Transcribe Date/Time: Mar 28 2024 5:41P Dictated by : CASPER BULL MD This examination was interpreted and the report reviewed and electronically signed by: CASPER BULL MD on Mar 28 2024 5:42PM EST [id number] Normal [facility] .Auto Diffon 03-24-2024 Basophil, Absolute 0.1 10 3/mcL Normal 0.0-0.2 [facility] Comment on above: Performed By: #### C BRANDO WALDRON ANEU, MDW, TROPHS, CMP, GFR, DIMER ####[facility] [address] [place], [place] [address] Basophils/100 WBC (Bld) 0.7 % Normal 0.0-2.5 [facility] ([place]) Comment on above: Performed By: #### C BRANDO WALDRON ANEU, MDW, TROPHS, CMP, GFR, DIMER ####[facility] [address] [place], [place] [address] Eosinophil, Absolute 0.1 10 3/mcL Normal 0.0-0.4 [facility] ([place]) Comment on above: Performed By: #### C BC, ADIFF, ANEU, MDW, TROPHS, CMP, GFR, DIMER ####[facility] [address] [place], [place] [address] Eosinophils/100 WBC (Bld) 1.3 % Normal 0.0-7.0 [facility] ([place]) Comment on above: Performed By: #### C BC, ADIFF, ANEU, MDW, TROPHS, CMP, GFR, DIMER ####[facility] [address] [place], [place] [address] Lymphocyte, Absolute 3.6 10 3/mcL Normal 0.8-3.9 [facility] ([place]) Comment on above: Performed By: #### C BC, ADIFF, ANEU, MDW, TROPHS, CMP, GFR, DIMER ####[facility] [address] [place], [place] [address] Lymphocytes/100 WBC (Bld) 34.2 % Normal 10.0-50.0 [facility] ([place]) Comment on above: Performed By: #### C BC, ADIFF, ANEU, MDW, TROPHS, CMP, GFR, DIMER ####[facility] [address] [place], [place] [address] Monocyte, Absolute 1.1 10 3/mcL High 0.2-1.0 [facility] Comment on above: Performed By: #### C BC, ADIFF, ANEU, MDW, TROPHS, CMP, GFR, DIMER ####[facility] [address] [place], [place] [address] Monocytes/100 WBC (Bld) 10.1 % Normal 1.7-13.0 [facility] ([place]) Comment on above: Performed By: #### C BC, ADIFF, ANEU, MDW, TROPHS, CMP, GFR, DIMER ####[facility] [address] [place], [place] [address] Neutrophils/100 WBC (Bld) 53.7 % Normal 37.0-80.0 [facility] ([place]) Comment on above: Performed By: #### C BC, ADIFF, ANEU, MDW, TROPHS, CMP, GFR, DIMER ####[facility] [address] [place], [place] [address] .GFRon 03-24-2024 GFR 117 ml/min/1.73sqm Normal [facility] ([place]) Comment on above: Result Comment: GFR Population mean for , Non- Americans Ages 20-29 = 116 mL/min/1.73 sq.m. Ages 30-39 = 107 mL/min/1.73 sq.m. Ages 40-49 = 99 mL/min/1.73 sq.m. Ages 50-59 = 93 mL/min/1.73 sq.m. Ages 60-69 = 85 mL/min/1.73 sq.m. Ages 70+ = 75 mL/min/1.73 sq.m. Chronic Kidney Disease: Less than 60 mL/min/1.73 square meters End Stage Renal Disease: Less than 15 mL/min/1.73 square meters Performed By: #### C BRANDO WALDRON ANEU, MDW, TROPHS, CMP, GFR, DIMER ####[facility] [address] [place], [place] [address] GFR Non- 97 ml/min/1.73sqm Normal [facility] ([place]) Comment on above: Result Comment: GFR Population mean for , Non- Americans Ages 20-29 = 116 mL/min/1.73 sq.m. Ages 30-39 = 107 mL/min/1.73 sq.m. Ages 40-49 = 99 mL/min/1.73 sq.m. Ages 50-59 = 93 mL/min/1.73 sq.m. Ages 60-69 = 85 mL/min/1.73 sq.m. Ages 70+ = 75 mL/min/1.73 sq.m. Chronic Kidney Disease: Less than 60 mL/min/1.73 square meters End Stage Renal Disease: Less than 15 mL/min/1.73 square meters Performed By: #### C BRANDO WALDRON ANEU, MDW, [place], CMP, GFR, DIMER ####[facility] [place], [place] [address] .MDWon 03-24-2024 Monocyte Distribution Width 19.34 Normal 0.00-20.00 [facility] ([place]) Comment on above: Result Comment: For ED adult patients suspected of sepsis, MDW<=20.0 does not rule out sepsis or risk of sepsis Performed By: #### C BRANDO WALDRON ANEU, MDW, TROPHS, CMP, GFR, DIMER ####[facility] [address] [place], [place] [address] .NEUABSon 03-24-2024 Neutrophil, Absolute 5.7 10 3/mcL Normal 2.9-6.2 [facility] ([place]) Comment on above: Performed By: #### C VANITA, ANKUR MICHAELS, MYA, TROPHS, CMP, GFR, DIMER ####[facility] [place], [place] [address] CBCon 03-24-2024 Erythrocyte distribution width (RBC) [Ratio] 12.8 % Normal 11.5-14.5 [facility] ([place]) Comment on above: Performed By: #### C BRANDO WALDRON ANEU, MDW, TROPHS, CMP, GFR, DIMER ####[facility] [address] [place] [address] Hematocrit (Bld) [Volume fraction] 40.3 % Normal 37.0-47.0 [facility] ([place]) Comment on above: Performed By: #### C BRANDO WALDRON ANEU, MDW, TROPHS, CMP, GFR, DIMER ####[facility] [address] [place], [place] [address] Hgb 13.7 G/dL Normal 12.0-16.0 [facility] ([place]) Comment on above: Performed By: #### C BRANDO WALDRON ANEU, MDW, TROPHS, CMP, GFR, DIMER ####[facility] [address] [place], [place] [address] MCH (RBC) [Entitic mass] 31.6 pg High 27.0-31.2 [facility] ([place]) Comment on above: Performed By: #### C BRANDO WALDRON ANEU, MDW, TROPHS, CMP, GFR, DIMER ####[facility] [address] [place] [id number] MCHC 34.1 G/dL Normal 33.0-37.0 [facility] ([place]) Comment on above: Performed By: #### C VANITA, BRANDO, ANKUR, MDW, TROPHS, CMP, GFR, DIMER ####[address] [place], [place] [address] MCV (RBC) [Entitic vol] 92.6 fL Normal 80.0-94.0 [facility] ([place]) Comment on above: Performed By: #### C VANITA, BRANDO, ANKUR, MDW, TROPHS, CMP, GFR, DIMER ####[address] [place], [place] [address] Platelet 320 10 3/mcL Normal 130-400 [facility] ([place] Comment on above: Performed By: #### C VANITA, BRANDO, ANKUR, MDW, TROPHS, CMP, GFR, DIMER ####[address] [place], [place] [address] Platelet mean volume (Bld) [Entitic vol] 7.4 fL Normal 7.4-10.4 [facility] ([place]) Comment on above: Performed By: #### C VANITA, BRANDO, ANKUR, MDW, TROPHS, CMP, GFR, DIMER ####[facility] [place], [place] [address] RBC 4.35 10 6/mcL Normal 4.20-5.40 [facility] ([place]) Comment on above: Performed By: #### C VANITA, BRANDO, ANKUR, MDW, TROPHS, CMP, GFR, DIMER ####[facility] [place], [place] [address] WBC 10.7 10 3/mcL Normal 4.6-10.8 [facility] ([place]) Comment on above: Performed By: #### C VANITA, BRANDO, ANKUR, MDW, TROPHS, CMP, GFR, DIMER ####[address] [place], [place] [address] CMPon 03-24-2024 Albumin Level 3.9 G/dL Normal 3.5-5.0 [facility] ([place]) Comment on above: Performed By: #### C VANITA, BRANDO, ANKUR, MDW, TROPHS, CMP, GFR, DIMER ####[facility] [place], [place] [address] Albumin/Globulin [Mass ratio] 1.1 {ratio} Normal 1.1-2.5 [facility] ([place]) Comment on above: Performed By: #### C VANITA, BRANDO, ANKUR, W, TROPHS, CMP, GFR, DIMER ####[address] [place], [place] [address] ALP [Catalytic activity/Vol] 105 U/L Normal 40-135 [facility] ([place] Comment on above: Performed By: #### C VANITA, BRANDO, ANKUR, W, TROPHS, CMP, GFR, DIMER ####[facility] [place], [place] [address] ALT [Catalytic activity/Vol] 61 U/L High 14-59 [facility] ([place]) Comment on above: Performed By: #### C VANITA, BRANDO, ANKUR, W, TROPHS, CMP, GFR, DIMER ####[facility] [place], [place] [address] AST [Catalytic activity/Vol] 27 U/L Normal 10-40 [facility] [facility] ([place] Comment on above: Performed By: #### C BRANDO WALDRON ANEU, W, TROPHS, CMP, GFR, DIMER ####[address] [place], [place] [address] Bili Total 1.5 mg/dL High 0.2-1.0 [facility]ly [facility], [facility] ([place]) Comment on above: Result Comment: Use of this assay is not recommended for patients undergoing treatment with eltrombopag due to the potential for falsely elevated results. Performed By: #### C BC, BRANDO, ANKUR, W, TROPHS, CMP, GFR, DIMER ####[address] [place], [place] [address] BUN/Creatinine Ratio 13 ratio Normal 7-27 [facility] ([place] Comment on above: Performed By: #### C BC, BRANDO, ANKUR, MDW, TROPHS, CMP, GFR, DIMER ####[address] [place], [place] [address] Calcium [Mass/Vol] 9.0 mg/dL Normal 8.4-10.2 [facility] ([place]) Comment on above: Performed By: #### C BRANDO WALDRON ANEU, MDW, TROPHS, CMP, GFR, DIMER ####[address] [place], [place] [address] Chloride [Moles/Vol] 102 mmol/L Normal 98-107 [facility] ([place] Comment on above: Performed By: #### C BRANDO WALDRON ANEU, MDW, TROPHS, CMP, GFR, DIMER ####[address] [place], [place] [address] CO2 [Moles/Vol] 28 mmol/L Normal 22-29 [facility], [facility]–[place] ([place] Comment on above: Performed By: #### C BRANDO WALDRON ANEU, MDW, TROPHS, CMP, GFR, DIMER ####[address] [place], [place] [address] Creatinine [Mass/Vol] 0.71 mg/dL Normal 0.55-1.02 [facility]ly [facility] ([place]) Comment on above: Result Comment: Test ing performed on Siemens Dimension EXL analyzer using a modified kinetic Sher technique. Performed By: #### C BRANDO WALDRON ANEU, MDW, TROPHS, CMP, GFR, DIMER ####[address] [place], [place] [address] Electrolyte Balance 9.0 mEq/L Normal 4.0-15.0 [facility] ([place]) Comment on above: Performed By: #### C BRANDO WALDRON ANEU, MDW, TROPHS, CMP, GFR, DIMER ####[address] [place], [place] [address] Globulin 3.6 G/dL Normal [facility], [facility] ([place] Comment on above: Performed By: #### C BRANDO WALDRON ANEU, MDW, TROPHS, CMP, GFR, DIMER ####[address] [place], [place] [address] Glucose [Mass/Vol] 94 mg/dL Normal 70-105 [facility] ([place] Comment on above: Performed By: #### C HALLEY WALDRONIFF, ANKUR, MDW, TROPHS, CMP, GFR, DIMER ####[address] [place], [place] [address] Potassium [Moles/Vol] 4.2 mmol/L Normal 3.5-5.1 [facility] ([place]) Comment on above: Performed By: #### C BC, ADLAKHWINDER, ANKUR, MDW, TROPHS, CMP, GFR, DIMER ####[address] [place], [place] [address] Sodium [Moles/Vol] 139 mmol/L Normal 136-145 [facility] ([place]) Comment on above: Performed By: #### C BC, BRANDO, ANKUR, MDW, TROPHS, CMP, GFR, DIMER ####[address] [place], [place] [address] Total Protein 7.5 G/dL Normal 6.4-8.2 [facility], [facility] ([place] Comment on above: Performed By: #### C BC, BRANDO, ANKUR, MDW, TROPHS, CMP, GFR, DIMER ####[address] [place], [place] [address] Urea nitrogen [Mass/Vol] 9 mg/dL Normal 7-18 [facility], [facility] ([place] Comment on above: Performed By: #### C BC, BRANDO, ANKUR, MDW, TROPHS, CMP, GFR, DIMER ####[address] [place], [place] [address] CT ANGIOGRAPHY CHEST W/CONTR Demetra 03-24-2024 CT ANGIOGRAPHY CHEST W/CONTRAST ORIGINAL EXAMINATION: CTA OF THE CHEST 03/24/2024 9:40 pm TECHNIQUE: CTA of the chest was performed after the administration of intravenous contrast. Multiplanar reformatted images are provided for review. MIP images are provided for review. Automated exposure control, iterative reconstruction, and/or weight based adjustment of the mA/kV was utilized to reduce the radiation dose to as low as reasonably achievable. COMPARISON: None HISTORY: ORDERING SYSTEM PROVIDED HISTORY: Reason for Exam: chest pain; suspect PE FINDINGS: No acute osseous abnormality. No acute soft tissue abnormality. No acute abnormality in the visualized upper abdomen. 2.0 cm right adrenal nodule that measures approximately 24 Hounsfield units is present. The thyroid is unremarkable. No pathologically enlarged supraclavicular, axillary, mediastinal or hilar lymph nodes. The heart is normal size. No pericardial effusion. The thoracic aorta is normal caliber. The pulmonary arteries are adequately opacified. No pulmonary embolism. No pleural effusion or pneumothorax. The trachea and mainstem bronchi are patent. The lungs are clear. No suspicious pulmonary nodule. IMPRESSION: No pulmonary embolism. 2.0 cm right adrenal nodule measuring approximately 24 Hounsfield units. Further evaluation with non emergent adrenal protocol CT is recommended. Preliminary Report was Dictated by a Resident I have personally reviewed the images of this examination and agree with the resident's findings and interpretation. Jaxson Moya M.D. Interpreted by: Jaxson Moya Preliminary Report By: Johnnie Wilks Electronically signed By Jaxson Moya Dictated Date: 03/24/2024 9:51:17 PM Prelim Date: 03/24/2024 10:01:20 PM Sign Date: 03/24/2024 10:20:52 PM Ordering Provider: VERO Paige [facility]) DIMERon 03-24-2024 D-Dimer 405 ng/mL D-DU High 0-230 [facility], [facility] ([place]) Comment on above: Result Comment: Resu lts reported in D-DU ng/mL. Positive for D-dimer. A positive D-Dimer may occur in the following: DVT, PE, DIC, Trauma, Cancer, Sepsis, , Rheumatoid arthritis, Myocardial infarction and Cirrhosis. The presence of Rheumatoid Factor and HAMA (human mouse antibody) produces an overestimation of test results. The result of the D-Dimer test should be evaluated in the context of all the clinical and laboratory data available. In those instances where the laboratory result does not agree with the clinical evaluation, additional tests should be performed accordingly. If the D-Dimer result is used to exclude DVT or PE, the recommended cutoff value is less than 230 ng/mL. The D-Dimer result should not be used alone to rule in DVT/PE, but should be used in conjunction with a clinical pretest probability (PTP)assessment model to exclude venous thromboembolism (VTE) in outpatients suspected of deep venous thrombosis (DVT) and pulmonary embolism (PE). Performed By: #### C BC, BRANDO, ANKUR, MDW, TROPHS, CMP, GFR, DIMER ####[address] [place] [address] LABORATORYOrdered By: SYSTEM SYSTEM on 03-24-2024 Albumin BCP dye [Mass/Vol] 3.9 G/dL Normal 3.5 - 5.0 G/dL AO ADM SS Albumin/Globulin [Mass ratio] 1.1 {ratio} Normal 1.1 - 2.5 ratio AO ADM SS ALP [Catalytic activity/Vol] 105 U/L Normal 40 - 135 U/L AO ADM SS ALT With P-5'-P [Catalytic activity/Vol] 61 U/L High 14 - 59 U/L AO ADM SS AST With P-5'-P [Catalytic activity/Vol] 27 U/L Normal 10 - 40 U/L AO ADM SS Basophil, Absolute 0.1 103/mcL Normal 0.0 - 0.2 10^3/mcL AO Workflow SS Basophils/100 WBC (Bld) 0.7 % Normal 0.0 - 2.5 % AO Workflow SS Bilirubin [Mass/Vol] 1.5 mg/dL High 0.2 - 1 .0 mg/dL AO ADM SS Comment on above: Interpretive Data: U se of this assay is not recommended for patients undergoing treatment with eltrombopag due to the potential for falsely elevated results. Calcium [Mass/Vol] 9.0 mg/dL Normal 8.4 - 10. 2 mg/dL AO ADM SS Chloride [Moles/Vol] 102 mmol/L Normal 98 - 10 7 mmol/L AO ADM SS CO2 [Moles/Vol] 28 mmol/L Normal 22 - 29 mmol/L AO ADM SS Creatinine [Mass/Vol] 0.71 mg/dL Normal 0.55 - 1.02 mg/dL AO ADM SS Comment on above: Interpretive Data: T esting performed on Siemens Dimension EXL analyzer using a modified kinetic Sher technique. Electrolyte Balance 9.0 mEq/L Normal 4.0 - 15 .0 mEq/L AO ADM SS Eosinophil, Absolute 0.1 103/mcL Normal 0.0 - 0 .4 10^3/mcL AO Workflow SS Eosinophils/100 WBC (Bld) 1.3 % Normal 0.0 - 7.0 % AO Workflow SS Erythrocyte distribution width (RBC) [Ratio] 12.8 % Normal 11.5 - 14.5 % AO Workflow SS Fibrin D-dimer DDU (PPP) [Mass/Vol] 405 ng/mL D-DU High 0 - 230 ng/mL D-DU AO HemoHub SS Comment on above: Result Comment: Resu lts reported in D-DU ng/mL. Positive for D-dimer. A positive D-Dimer may occur in the following: DVT, PE, DIC, Trauma, Cancer, Sepsis, , Rheumatoid arthritis, Myocardial infarction and Cirrhosis. The presence of Rheumatoid Factor and HAMA (human mouse antibody) produces an overestimation of test results. Interpretive Data: T he result of the D-Dimer test should be evaluated in the context of all the clinical and laboratory data available. In those instances where the laboratory result does not agree with the clinical evaluation, additional tests should be performed accordingly. If the D-Dimer result is used to exclude DVT or PE, the recommended cutoff value is less than 230 ng/mL. The D-Dimer result should not be used alone to rule in DVT/PE, but should be used in conjunction with a clinical pretest probability (PTP)assessment model to exclude venous thromboembolism (VTE) in outpatients suspected of deep venous thrombosis (DVT) and pulmonary embolism (PE). GFR/1.73 sq M.predicted among blacks MDRD (S/P/Bld) [Vol rate/Area] 117 ml/min/1.73sqm Invalid Interpretation Code AO Chemistry S Comment on above: Interpretive Data: GFR Population mean for , Non- Americans Ages 20-29 = 116 mL/min/1.73 sq.m. Ages 30-39 = 107 mL/min/1.73 sq.m. Ages 40-49 = 99 mL/min/1.73 sq.m. Ages 50-59 = 93 mL/min/1.73 sq.m. Ages 60-69 = 85 mL/min/1.73 sq.m. Ages 70+ = 75 mL/min/1.73 sq.m. Chronic Kidney Disease: Less than 60 mL/min/1.73 square meters End Stage Renal Disease: Less than 15 mL/min/1.73 square meters GFR/1.73 sq M.predicted among non-blacks MDRD (S/P/Bld) [Vol rate/Area] 97 ml/min/1.73sqm Invalid Interpretation Code AO Chemistry S Comment on above: Interpretive Data: GFR Population mean for , Non- Americans Ages 20-29 = 116 mL/min/1.73 sq.m. Ages 30-39 = 107 mL/min/1.73 sq.m. Ages 40-49 = 99 mL/min/1.73 sq.m. Ages 50-59 = 93 mL/min/1.73 sq.m. Ages 60-69 = 85 mL/min/1.73 sq.m. Ages 70+ = 75 mL/min/1.73 sq.m. Chronic Kidney Disease: Less than 60 mL/min/1.73 square meters End Stage Renal Disease: Less than 15 mL/min/1.73 square meters Globulin 3.6 G/dL Invalid Interpretation Code AO ADM SS Glucose [Mass/Vol] 94 mg/dL Normal 70 - 105 mg/dL AO ADM SS Hematocrit (Bld) [Volume fraction] 40.3 % Normal 37.0 - 47.0 % AO Workflow SS Hemoglobin (Bld) [Mass/Vol] 13.7 G/dL Normal 12.0 - 16.0 G/dL AO Workflow SS Lymphocyte, Absolute 3.6 103/mcL Normal 0.8 - 3 .9 10^3/mcL AO Workflow SS Lymphocytes/100 WBC (Bld) 34.2 % Normal 10.0 - 50.0 % AO Workflow SS MCH (RBC) [Entitic mass] 31.6 pg High 27.0 - 31.2 pg AO Workflow SS MCHC 34.1 G/dL Normal 33.0 - 37.0 G/dL AO Workflow SS MCV (RBC) [Entitic vol] 92.6 fL Normal 80.0 - 94.0 fL AO Workflow SS Monocyte distribution width Auto (Bld) [Entitic vol] 19.34 1 Normal 0.00 - 20.00 AO Workflow SS Comment on above: Result Comment: For ED adult patients suspected of sepsis, MDW<=20.0 does not rule out sepsis or risk of sepsis Monocyte, Absolute 1.1 103/mcL High 0.2 - 1.0 10^3/mcL AO Workflow SS Monocytes/100 WBC (Bld) 10.1 % Normal 1.7 - 13.0 % AO Workflow SS Neutrophil, Absolute 5.7 103/mcL Normal 2.9 - 6 .2 10^3/mcL AO Workflow SS Neutrophils/100 WBC (Bld) 53.7 % Normal 37.0 - 80.0 % AO Workflow SS Platelet mean volume (Bld) [Entitic vol] 7.4 fL Normal 7.4 - 10.4 fL AO Workflow SS Platelets (Bld) [#/Vol] 320 103/mcL Normal 130 - 400 10^3/mcL AO Workflow SS Potassium [Moles/Vol] 4.2 mmol/L Normal 3.5 - 5.1 mmol/L AO ADM SS Protein [Mass/Vol] 7.5 G/dL Normal 6.4 - 8.2 G/dL AO ADM SS RBC (Bld) [#/Vol] 4.35 106/mcL Normal 4.20 - 5.4 0 10^6/mcL AO Workflow SS Sodium [Moles/Vol] 139 mmol/L Normal 136 - 145 mmol/L AO ADM SS Troponin I.cardiac DL <= 0.01 ng/mL [Mass/Vol] 4 ng/L Normal 0 - 51 ng/L AO ADM SS Comment on above: Interpretive Data: H igh Sensitive Troponin I Reference Ranges: Female: 0-51 ng/L Male: 0-76 ng/L Testing performed on [employer] EXCX using a homogeneous sandwich chemiluminescent immunoassay based on [employer] technology. Urea nitrogen [Mass/Vol] 9 mg/dL Normal 7 - 18 mg/dL AO ADM SS Urea nitrogen/Creatinine [Mass ratio] 13 ratio Normal 7 - 27 ratio AO ADM SS WBC (Bld) [#/Vol] 10.7 103/mcL Normal 4.6 - 10.8 10^3/mcL AO Workflow SS TROPHSon 03-24-2024 High Sensitivity Troponin I 4 ng/L Normal 0-51 [facility], [facility] ([place]) Comment on above: Result Comment: High Sensitive Troponin I Reference Ranges: Female: 0-51 ng/L Male: 0-76 ng/L Testing performed on [employer] EXL using a homogeneous sandwich chemiluminescent immunoassay based on [employer] technology. Performed By: #### C VANITA, BRANDO, ANKUR, MDW, TROPHS, CMP, GFR, DIMER ####[address] [place], [place] [address] XR CHEST 1 VIEWon 03-24-2024 XR CHEST 1 VIEW ORIGINAL EXAMINATION: ONE XRAY VIEW OF THE CHEST03/24/2024 9:39 pm COMPARISON: 02/24/2024 HISTORY: ORDERING SYSTEM PROVIDED HISTORY: Reason for Exam: SOB/cough/fever FINDINGS: Cardiomediastinal contours are within normal limits. No focal consolidation or pulmonary edema. No pleural effusion or visible pneumothorax. The bony thorax appears intact. IMPRESSION: No focal consolidation. I have personally reviewed the images of this examination and agree with the resident's findings and interpretation. Interpreted by: Escobar Moore Preliminary Report By: Johnnie Wilks Electronically signed By Escobar Moore Dictated Date: 03/24/2024 9:40:02 PM Prelim Date: 03/24/2024 9:42:34 PM Sign Date: 03/24/2024 10:13:46 PM Ordering Provider: VERO Paige [facility], [facility] ([place]) Final Surgical Pathology Rep oralndo 03-18-2024 Final Surgical Pathology Report . Pathology Reports Accession: Collected Date/Time: Received Date/Time: Pathologist: [id number] 03/15/2024 11:01 EDT 03/17/2024 08:50 EDT MD THANH FLOR Final Surgical Pathology Report DIAGNOSIS: APPENDIX, APPENDECTOMY: - ACUTE APPENDICITIS CLINICAL INFORMATION: Procedure: LAPAROSCOPIC APPENDECTOMY Preoperative diagnosis: APPENDICITIS Postoperative diagnosis: APPENDICITIS SPECIMEN: A APPENDIX GROSS DESCRIPTION: All parts labelled with patient name and [id number] Received in formalin labelled appendix Dimensions- 5.9 x 2.6 x 1.4 cm Serosal surface- is falk-pink with vascular congestion, waters-white exudate and attached yellow mesoappendix. Lumen- contains hemorrhagic material, fecaliths also identified. Section closest to margin inked black. Wall thickness- 0.1 cm. RS-1 Amanda Rosa, Grossing Certified First Assistant/ Dr. Amaya Mark, Pathologist Performed by Amanda Rosa MICROSCOPIC DESCRIPTION: The microscopic examination is performed, except in the case of Gross Only. Electronically Signed by Pathology Report verified by [facility] THANH FLOR MD Sign out Date: 03/18/2024 10:22 Performing Lab: [facility], [address] [place] [address] Pathology Dept Disclaimer If ancillary studies were utilized, the following Laboratory Developed Test (LDT) disclaimer will apply: Under CLIA requirements, [facility] is qualified to perform high complexity testing. For all ancillary stains, positive and negative controls stain appropriately. Performance characteristics of immunohistochemical and chromogenic in-situ hybridization tests have been determined by [facility]. These tests are used for clinical purposes, They should not be regarded as investigational or for research. Normal [facility] ([place]) CRPon 03-15-2024 C-Reactive Protein 6.5 mg/dL High 0.0-1.0 [facility] ([place]) Comment on above: Result Comment: No te - New Reference Range in effect 20 Performed By: #### C RP, ESR #### [address] [address] ESRon 03-15-2024 Erythrocyte Sed Rate 16 mm/hr Normal 0-20 [facility] ([place] Comment on above: Performed By: #### C RP, ESR #### [address] [address] LABORATORYOrdered By: SYSTEM SYSTEM on 03-15-2024 CRP [Mass/Vol] 6.5 mg/dL High 0.0 - 1.0 mg/dL ADM SS Comment on above: Interpretive Data: * *Note - New Reference Range in effect 20 Troponin I.cardiac DL <= 0.01 ng/mL [Mass/Vol] ng/L Normal 0 - 34 ng/L ADM SS Comment on above: Interpretive Data: High Sensitive Troponin I Reference Ranges: Female: 0-34 ng/L Male: 0-54 ng/L Testing performed on [employer] analyzer using direct chemiluminescent technology. LABORATORYOrdered By: Arturo Melendez on 03-15-2024 ESR 15 minute reading (Bld) [Velocity] 16 mm/hr Normal 0 - 20 mm/hr Auto Heme SS LABORATORYOrdered By: Vivienne Jimenez on 03-15-2024 Glucose [Mass/Vol] 110 mg/dL Normal 70 - 110 mg/dL [facility] High Sensitivity Troponin I <3 Normal 0-34 [facility] ([place] Comment on above: Result Comment: High Sensitive Troponin I Reference Ranges: Female: 0-34 ng/L Male: 0-54 ng/L Testing performed on [employer] IM analyzer using direct chemiluminescent technology. Performed By: #### T [facility] #### [address] [address] XR CHEST 1 VIEWon 03-15-2024 XR CHEST 1 VIEW ORIGINAL EXAMINATION: ONE XRAY VIEW OF THE CHEST03/15/2024 11:53 am CHEST ONE VIEW AP/PA COMPARISON: 03/14/2024 HISTORY: ORDERING SYSTEM PROVIDED HISTORY: Reason for Exam: chest pain post procedure History of appendectomy FINDINGS: The cardiomediastinal contours are normal. There is no focal consolidation, pleural effusion, or pneumothorax. No acute osseous abnormality. There is no pneumo peritoneum. IMPRESSION: No acute radiographic findings in the chest. Pneumoperitoneum. This can be a normal finding in the immediate postoperative setting. Please correlate clinically with peritoneal signs of acute abdomen for evidence of perforated bowel. Consider CT of the abdomen pelvis if there is clinical suspicion. Interpreted by: Andrew Cortes MD Preliminary Report By: Andrew Cortes MD Electronically signed By Andrew Cortes MD Dictated Date: 03/15/2024 12:01:22 PM Prelim Date: 03/15/2024 12:09:01 PM Sign Date: 03/15/2024 12:09:01 PM Ordering Provider: MICHELE Paige [facility] ([place] .Auto Diffon 03-14-2024 Basophil, Absolute 0.0 10 3/mcL Normal 0.0-0.2 [facility]) Comment on above: Performed By: #### A MYA SANTANA, CBC, ADIFF #### [address] [address] Basophils/100 WBC (Bld) 0.2 % Normal 0.0-2.5 [facility] ([place]) Comment on above: Performed By: #### A MYA SANTANA, CBC, ADIFF #### [place] [address] [place], [place] [address] Eosinophil, Absolute 0.0 10 3/mcL Normal 0.0-0.4 [facility] ([place]) Comment on above: Performed By: #### A MYA SANTANA, CBC, ADIFF #### [address] [address] Eosinophils/100 WBC (Bld) 0.3 % Normal 0.0-7.0 [facility] ([place]) Comment on above: Performed By: #### A MYA SANTANA, CBC, ADIFF #### [address] [address] Lymphocyte, Absolute 2.5 10 3/mcL Normal 0.8-3.9 [facility] ([place]) Comment on above: Performed By: #### A MYA SANTANA, CBC, ADIFF #### [address] [address] Lymphocytes/100 WBC (Bld) 16.1 % Normal 10.0-50.0 [facility] ([place]) Comment on above: Performed By: #### A MYA SANTANA, CBC, ADIFF #### [address] [address] Monocyte, Absolute 0.6 10 3/mcL Normal 0.2-1.0 [facility] ([place] Comment on above: Performed By: #### A MYA SANTANA, CBC, ADIFF #### [address] [address] Monocytes/100 WBC (Bld) 4.1 % Normal 1.7-13.0 [facility] ([place]) Comment on above: Performed By: #### A MYA SANTAAN, CBC, ADIFF #### [address] [address] Neutrophils/100 WBC (Bld) 79.3 % Normal 37.0-80.0 [facility] ([place]) Comment on above: Performed By: #### A MYA SANTANA, CBC, ADIFF #### [address] [address] .GFRon 03-14-2024 GFR 99 ml/min/1.73sqm Normal [facility] ([place]) Comment on above: Result Comment: GFR Population mean for , Non- Americans Ages 20-29 = 116 mL/min/1.73 sq.m. Ages 30-39 = 107 mL/min/1.73 sq.m. Ages 40-49 = 99 mL/min/1.73 sq.m. Ages 50-59 = 93 mL/min/1.73 sq.m. Ages 60-69 = 85 mL/min/1.73 sq.m. Ages 70+ = 75 mL/min/1.73 sq.m. Chronic Kidney Disease: Less than 60 mL/min/1.73 square meters End Stage Renal Disease: Less than 15 mL/min/1.73 square meters Performed By: #### H H, BMP, GFR ####[address] [place], [place] [address] GFR Non- 82 ml/min/1.73sqm Normal [facility] ([place] Comment on above: Result Comment: GFR Population mean for , Non- Americans Ages 20-29 = 116 mL/min/1.73 sq.m. Ages 30-39 = 107 mL/min/1.73 sq.m. Ages 40-49 = 99 mL/min/1.73 sq.m. Ages 50-59 = 93 mL/min/1.73 sq.m. Ages 60-69 = 85 mL/min/1.73 sq.m. Ages 70+ = 75 mL/min/1.73 sq.m. Chronic Kidney Disease: Less than 60 mL/min/1.73 square meters End Stage Renal Disease: Less than 15 mL/min/1.73 square meters Performed By: #### H H, BMP, GFR ####[address] [place], [place] [address] .Won 03-14-2024 Monocyte Distribution Width 22.01 High 0.00-20.00 [facility] ([place]) Comment on above: Result Comment: For adults in ED, MDW>20.0 may be associated with a higher risk of sepsis during the first 12hrs of hospital admission Performed By: #### A MYA SANTANA, CBC, ADIFF #### [address] [place], [place] [address] .NEUABSon 03-14-2024 Neutrophil, Absolute 12.2 10 3/mcL High 2.9-6.2 A [facility] ([place]) Comment on above: Performed By: #### A MYA SANTANA, CBC, ADIFF #### [address] [place], [place] [address] BMPon 03-14-2024 BUN/Creatinine Ratio 13 ratio Normal 7-27 [facility] [place] Comment on above: Performed By: #### H H, BMP, GFR ####[address] [place], [place] [address] Calcium [Mass/Vol] 9.4 mg/dL Normal 8.4-10.2 [facility] ([place]) Comment on above: Performed By: #### H H, BMP, GFR ####[address] [place], [place] [address] Chloride [Moles/Vol] 102 mmol/L Normal 98-107 [facility] [place] Comment on above: Performed By: #### H H, BMP, GFR ####[address] [place], [place] [address] CO2 [Moles/Vol] 26 mmol/L Normal 22-29 [facility] ([place] Comment on above: Performed By: #### H H, BMP, GFR ####[address] [place], [place] [address] Creatinine [Mass/Vol] 0.82 mg/dL Normal 0.55-1.02 [facility] ([place]) Comment on above: Performed By: #### H H, BMP, GFR ####[address] [place], [place] [address] Electrolyte Balance 11.0 mEq/L Normal 4.0-15.0 [facility] ([place]) Comment on above: Performed By: #### H H, BMP, GFR ####[address] [place], [place] [address] Glucose [Mass/Vol] 107 mg/dL High 70-105 [facility] ([place]) Comment on above: Performed By: #### H H, BMP, GFR ####[address] [place], [place] [address] Potassium [Moles/Vol] 4.4 mmol/L Normal 3.5-5.1 [facility] ([place]) Comment on above: Performed By: #### H Harvinder, BMP, GFR ####[address] [place], [place] [address] Sodium [Moles/Vol] 139 mmol/L Normal 136-145 [facility] ([place]) Comment on above: Performed By: #### Harvinder H, BMP, GFR ####[address] [place], [place] [address] Urea nitrogen [Mass/Vol] 11 mg/dL Normal 7-18 [facility] ([place] Comment on above: Performed By: #### Harvinder Blanton, BMP, GFR ####[address] [place], [place] [address] CBCon 03-14-2024 Erythrocyte distribution width (RBC) [Ratio] 12.9 % Normal 11.5-14.5 [facility] ([place] Comment on above: Performed By: #### A MYA SANTANA, CBC, ADIFF #### [address] [address] Hematocrit (Bld) [Volume fraction] 40.3 % Normal 37.0-47.0 [facility] ([place]) Comment on above: Performed By: #### A MYA SANTANA, CBC, ADIFF #### [address] [address] [address] Hgb 13.9 G/dL Normal 12.0-16.0 Formerly [facility], 1928–[place] ([place]) Comment on above: Performed By: #### A MYA SANTANA, CBC, ADIFF #### [address] [address] MCH (RBC) [Entitic mass] 31.6 pg High 27.0-31.2 Formerly [facility], [facility]–[place] ([place] Comment on above: Performed By: #### A MYA SANTANA, CBC, ADIFF #### [place] [address] [address] MCHC 34.3 G/dL Normal 33.0-37.0 [facility]ly [facility], [facility] ([place] Comment on above: Performed By: #### A MYA SANTANA, CBC, ADIFF #### [address] [address] MCV (RBC) [Entitic vol] 91.9 fL Normal 80.0-94.0 [facility]ly [facility], [facility] ([place] Comment on above: Performed By: #### A MYA SANTANA, CBC, ADIFF #### [address] [address] Platelet 278 10 3/mcL Normal 130-400 [facility]ly [facility], [facility]–[place] ([place] Comment on above: Performed By: #### A MYA SANTANA, CBC, ADIFF #### [address] [address] Platelet mean volume (Bld) [Entitic vol] 8.4 fL Normal 7.4-10.4 [facility]ly [facility], [facility] ([place] Comment on above: Performed By: #### A MYA SANTANA, JOSE CARLOS, ADIFF #### [address] [address] RBC 4.39 10 6/mcL Normal 4.20-5.40 [facility]ly [facility] ([place] Comment on above: Performed By: #### A MYA SANTANA, JOSE CARLOS, ADIFF #### [address] [address] WBC 15.4 10 3/mcL High 4.6-10.8 [facility]ly [facility] ([place] Comment on above: Performed By: #### A MYA SANTANA, CBC, ADIFF #### [address] [address] [address] ABDOMEN/PELVIS W/O CONTRA STon 03-14-2024 CT ABDOMEN/PELVIS W/O CONTRAST ORIGINAL EXAMINATION: CT OF THE ABDOMEN AND PELVIS WITHOUT CONTRAST03/14/2024 6:[address] ABDOMEN/PELVIS WITHOUT CONTRAST EXAM DESCRIPTION: TECHNIQUE: CT of the abdomen and pelvis was performed without the administration of intravenous contrast. Multiplanar reformatted images are provided for review. Automated exposure control, iterative reconstruction, and/or weight based adjustment of the mA/kV was utilized to reduce the radiation dose to as low as reasonably achievable. COMPARISON: None available HISTORY: ORDERING SYSTEM PROVIDED HISTORY: Reason for Exam: abdominal pain FINDINGS: The size, density, and morphology of the liver, spleen, adrenals, kidneys, pancreas and unopacified loops of bowel are unremarkable. Bilateral nonobstructive renal stones measuring 2-3 mm each. No evidence hydronephrosis. The unopacified aorta demonstrates normal size and morphology without aneurysmal dilation or dissection. There are no enlarged lymph nodes by pathologic size criteria. Appendix measures up to 1.0 cm in diameter with high density appendicolith at the base of the appendix. There is no free fluid within the pelvis. Intrauterine control device is rotated 90 degrees the base appears to protrude through the right lateral wall of the uterus near the fundus. The bladder and pelvic organs have an unremarkable CT appearance. The osseous structures are without gross lytic or sclerotic lesion. The lung bases are clear. IMPRESSION: 1. Suspect uncomplicated acute appendicitis. 2. Bilateral nonobstructive nephrolithiasis. 3. Apparent migration and rotation of the intrauterine device with the base position within the right lateral wall of the uterus near the fundus. Clinical correlation with physician who placed the device is needed. Interpreted by: Andrew Lezama MD Preliminary Report By: Andrew Lezama MD Electronically signed By Andrew Lezama MD Dictated Date: 03/14/2024 6:26:04 PM Prelim Date: 03/14/2024 6:47:11 PM Sign Date: 03/14/2024 6:47:11 PM Ordering Provider: TORI Paige [facility]) on 03-14-2024 Hematocrit (Bld) [Volume fraction] 39.7 % Normal 37.0-47.0 [facility]) Comment on above: Performed By: #### H HSHERI, GFR ####[address] [place], [place] [address] Hgb 13.7 G/dL Normal 12.0-16.0 [facility]) Comment on above: Performed By: #### H SHERI Blanton, GFR ####[address] [place], [place] [address] LABORATORYOrdered By: SYSTEM SYSTEM on 03-14-2024 Basophil, Absolute 0.0 103/mcL Normal 0.0 - 0.2 10^3/mcL AO Workflow SS Basophils/100 WBC (Bld) 0.2 % Normal 0.0 - 2.5 % AO Workflow SS Eosinophil, Absolute 0.0 103/mcL Normal 0.0 - 0 .4 10^3/mcL AO Workflow SS Eosinophils/100 WBC (Bld) 0.3 % Normal 0.0 - 7.0 % AO Workflow SS Erythrocyte distribution width (RBC) [Ratio] 12.9 % Normal 11.5 - 14.5 % AO Workflow SS Hematocrit (Bld) [Volume fraction] 40.3 % Normal 37.0 - 47.0 % AO Workflow SS Hemoglobin (Bld) [Mass/Vol] 13.9 G/dL Normal 12.0 - 16.0 G/dL AO Workflow SS Lymphocyte, Absolute 2.5 103/mcL Normal 0.8 - 3 .9 10^3/mcL AO Workflow SS Lymphocytes/100 WBC (Bld) 16.1 % Normal 10.0 - 50.0 % AO Workflow SS MCH (RBC) [Entitic mass] 31.6 pg High 27.0 - 31.2 pg AO Workflow SS MCHC 34.3 G/dL Normal 33.0 - 37.0 G/dL AO Workflow SS MCV (RBC) [Entitic vol] 91.9 fL Normal 80.0 - 94.0 fL AO Workflow SS Monocyte distribution width Auto (Bld) [Entitic vol] 22.01 1 High 0.00 - 20.00 AO Workflow SS Comment on above: Result Comment: For adults in ED, MDW>20.0 may be associated with a higher risk of sepsis during the first 12hrs of hospital admission Monocyte, Absolute 0.6 103/mcL Normal 0.2 - 1.0 10^3/mcL AO Workflow SS Monocytes/100 WBC (Bld) 4.1 % Normal 1.7 - 13.0 % AO Workflow SS Neutrophil, Absolute 12.2 103/mcL High 2.9 - 6 .2 10^3/mcL AO Workflow SS Neutrophils/100 WBC (Bld) 79.3 % Normal 37.0 - 80.0 % AO Workflow SS Platelet mean volume (Bld) [Entitic vol] 8.4 fL Normal 7.4 - 10.4 fL AO Workflow SS Platelets (Bld) [#/Vol] 278 103/mcL Normal 130 - 400 10^3/mcL AO Workflow SS RBC (Bld) [#/Vol] 4.39 106/mcL Normal 4.20 - 5.4 0 10^6/mcL AO Workflow SS WBC (Bld) [#/Vol] 15.4 103/mcL High 4.6 - 10.8 10^3/mcL AO Workflow SS Calcium [Mass/Vol] 9.4 mg/dL Normal 8.4 - 10. 2 mg/dL AO ADM SS Chloride [Moles/Vol] 102 mmol/L Normal 98 - 10 7 mmol/L AO ADM SS CO2 [Moles/Vol] 26 mmol/L Normal 22 - 29 mmol/L AO ADM SS Creatinine [Mass/Vol] 0.82 mg/dL Normal 0.55 - 1.02 mg/dL AO ADM SS Electrolyte Balance 11.0 mEq/L Normal 4.0 - 15 .0 mEq/L AO ADM SS GFR/1.73 sq M.predicted among blacks MDRD (S/P/Bld) [Vol rate/Area] 99 ml/min/1.73sqm Invalid Interpretation Code AO Chemistry S Comment on above: Interpretive Data: GFR Population mean for , Non- Americans Ages 20-29 = 116 mL/min/1.73 sq.m. Ages 30-39 = 107 mL/min/1.73 sq.m. Ages 40-49 = 99 mL/min/1.73 sq.m. Ages 50-59 = 93 mL/min/1.73 sq.m. Ages 60-69 = 85 mL/min/1.73 sq.m. Ages 70+ = 75 mL/min/1.73 sq.m. Chronic Kidney Disease: Less than 60 mL/min/1.73 square meters End Stage Renal Disease: Less than 15 mL/min/1.73 square meters GFR/1.73 sq M.predicted among non-blacks MDRD (S/P/Bld) [Vol rate/Area] 82 ml/min/1.73sqm Invalid Interpretation Code AO Chemistry S Comment on above: Interpretive Data: GFR Population mean for , Non- Americans Ages 20-29 = 116 mL/min/1.73 sq.m. Ages 30-39 = 107 mL/min/1.73 sq.m. Ages 40-49 = 99 mL/min/1.73 sq.m. Ages 50-59 = 93 mL/min/1.73 sq.m. Ages 60-69 = 85 mL/min/1.73 sq.m. Ages 70+ = 75 mL/min/1.73 sq.m. Chronic Kidney Disease: Less than 60 mL/min/1.73 square meters End Stage Renal Disease: Less than 15 mL/min/1.73 square meters Glucose [Mass/Vol] 107 mg/dL High 70 - 105 mg/dL AO ADM SS Hematocrit (Bld) [Volume fraction] 39.7 % Normal 37.0 - 47.0 % AO Workflow SS Hemoglobin (Bld) [Mass/Vol] 13.7 G/dL Normal 12.0 - 16.0 G/dL AO Workflow SS Potassium [Moles/Vol] 4.4 mmol/L Normal 3.5 - 5.1 mmol/L AO ADM SS Sodium [Moles/Vol] 139 mmol/L Normal 136 - 145 mmol/L AO ADM SS Urea nitrogen [Mass/Vol] 11 mg/dL Normal 7 - 18 mg/dL AO ADM SS Urea nitrogen/Creatinine [Mass ratio] 13 ratio Normal 7 - 27 ratio AO ADM SS LABORATORYOrdered By: Rosanna ballesteros on 03-14-2024 Appearance (U) Clear (03/14/24 5:28 PM) Normal Clear AO Auto Urine SS Bilirubin Ql (U) Negative (03/14/24 5:28 PM) Normal Negative AO Auto Urine SS Color (U) Yellow (03/14/24 5:28 PM) Normal AO Auto Urine SS Glucose Test strip (U) [Mass/Vol] Negative Normal Negative AO Auto Urine SS HCG ( test) Ql Negative (03/14/24 5:28 PM) Normal AO Manual Urine SS Hemoglobin Auto test strip (U) [Mass/Vol] Negative (03/14/24 5:28 PM) Normal Negative AO Auto Urine SS Ketones Ql (U) Negative Normal Negative AO Auto Ur ine SS test (u) int Not detected Invalid Interpretation Code AO Manual Urine SS UA Leuk Est Negative (03/14/24 5:28 PM) Normal Negative AO Auto Urine SS UA Nitrite Negative (03/14/24 5:28 PM) Normal Negative AO Auto Urine SS UA pH 7.0 (03/14/24 5:28 PM) Normal 5.0 - 8.0 AO Auto Urine SS UA Protein Negative Normal Negative AO Auto Urine SS UA Spec Grav 1.025 (03/14/24 5:28 PM) Normal 1.015-1.025 AO Auto Urine SS UA Specimen Type Clean Catch (03/14/24 5:28 PM) Normal AO Auto Urine SS UA Urobilinogen 0.2 E.U./dL Normal 0.2-1.0 AO Auto Urine SS PREGUon 03-14-2024 HCG ( test) Ql (U) Negative Normal [facility] ([place]) Comment on above: Performed By: #### U A, PREGU ####[address] [place], [place] [address] test (u) int Not detected Invalid Interpretation Code [facility] ([place]) Comment on above: Performed By: #### U A, PREGU ####[address] [place], [place] [address] UAon 03-14-2024 Color (U) Yellow Normal [facility] ([place]) Comment on above: Performed By: #### U A, PREGU ####[address] [place], [place] [address] Glucose (U) [Mass/Vol] Negative Normal Negative [facility] ([place]) Comment on above: Performed By: #### U A, PREGU ####[address] [place] [id number] Ketones Ql (U) Negative Normal Negative [facility] ([place]) Comment on above: Performed By: #### U A, PREGU ####[address] [place], [place] [address] UA Appear Clear Normal Clear [facility] ([place] Comment on above: Performed By: #### U A, PREGU ####[address] [place], [place] [address] UA Blood Negative Normal Negative [facility] ([place] Comment on above: Performed By: #### U A, PREGU ####[address] [place], [place] [address] UA Leuk Est Negative Normal Negative [facility] ([place] Comment on above: Performed By: #### U A, PREGU ####[address] [place], [place] [address] UA Nitrite Negative Normal Negative [facility] ([place] Comment on above: Performed By: #### U A, PREGU ####[address] [place], [place] [address] UA pH 7.0 Normal 5.0 - 8.0 [facility] ([place]) Comment on above: Performed By: #### U A, PREGU ####[address] [place], [place] [address] UA Protein Negative Normal Negative [facility] ([place] Comment on above: Performed By: #### U A, PREGU ####[address] [place], [place] [address] UA Spec Grav 1.025 Normal 1.015-1.025 [facility] ([place]) Comment on above: Performed By: #### U A, PREGU ####[address] [place], [place] [address] UA Specimen Type Clean Catch Normal [facility] ([place] Comment on above: Performed By: #### U A, PREGU ####[address] [place], [place] [address] UA Urobilinogen 0.2 E.U./dL Normal 0.2-1.0 [facility] ([place]) Comment on above: Performed By: #### U A, PREGU ####[address] [place], [place] [address] Urobilinogen (U) [Mass/Vol] Negative Normal Negative [facility] ([place]) Comment on above: Performed By: #### U A, PREGU ####[address] [place], [place] [address] ED NOTEon 02-09-2024 ED NOTE HNO ID: [id number] Author: KENYA JARAMILLO RN Service: ? Author Type: Registered Nurse Type: ED Notes Filed: 02/10/2024 10:49 Note Text: Patient Call Back Information How are you doing ? better Did we appropriately manage your pain? Yes Did you understand your discharge instructions? Yes Did you get your prescriptions filled? Were you able to make a follow-up appointment with your physician? No Were you comfortable during your stay here? Yes Did a member of the ER nursing team round on you during your visit? Yes You will receive a patient satisfaction survey in the mail in the nest 2 weeks, please take the time to fill out the survey as your input from your ER visit is very important to us. Yes Can we do anything else to help you? No Normal [facility] ED NOTE HNO ID: [id number] Author: CRISTINO TRAYLOR RN Service: Emergency Medicine Author Type: Registered Nurse Type: ED Notes Filed: 02/09/2024 19:42 Note Text: H/o back problems, sees pain management (Bissoli?) in [place]. Today threw my back out at a festival. C/o low back pain radiating down left leg Normal [facility] ED PROV NOTEon 02-09-2024 ED PROV NOTE HNO ID: [id number] Author: DEBBY HALE MD Service: Emergency Medicine Author Type: Physician Type: ED Provider Notes Filed: 03/10/2024 01:07 Note Text: ED Provider Note Patient Name: Fadumo Hensley : 1995 SERVICE DATE: 02/09/24 History Patient presents with: Back Pain Patient with a history of chronic bilateral low back pain, that follows up at [place], pain management, presents to the emergency department for acute onset of worsening left-sided low back pain radiating down his leg, if he threw his back out at a festival he was out walking around it. There is no direct trauma or injury, there was no fall. Patient has no bowel or bladder incontinence, and no leg weakness. No fevers. No abdominal pain, no hematuria, no urinary complaints. Patient is taking previous back pain medication, and [id number] medications without improvement in his symptoms. Back Pain Location: Sacro-iliac joint and lumbar spine Quality: Stiffness Radiates to: L posterior upper leg Pain severity: Moderate Timing: Intermittent Progression: Worsening Context: recent injury Context: not falling, not MCA and not MVA Worsened by: Movement Associated symptoms: no abdominal pain, no bladder incontinence, no bowel incontinence, no dysuria, no numbness, no paresthesias, no pelvic pain, no perianal numbness and no weakness Risk factors: no hx of cancer, no hx of osteoporosis, not , no recent surgery and no steroid use PAST MEDICAL HISTORY 09/26/2019: ASCUS with positive high risk HPV cervical 11/29/2011: Asthma 11/27/2007: ATTN DEFICIT NONHYPERACT 09/07/2015: Bulging of intervertebral disc between L4 and L5 and L5 and S1 04/29/2010: Chest pain 09/23/2013: Chlamydia infection 05/26/2011: Depression 08/02/2012: Depression complicating , antepartum 11/08/2022: Diet controlled gestational diabetes mellitus (GDM) in second trimester Comment: 11/08/22- 2 levels out of 3 elevated. Supplies and referrals ordered. Sulma Bartholomew APRN.JULISSA No date: Generalized anxiety disorder No date: GERD (gastroesophageal reflux disease) 2018: Hepatitis C Comment: 2019 cured after medication course. No date: High grade squamous intraepithelial cervical dysplasia 2015: History of suicide attempt Comment: cutting wrist No date: Juvenile osteochondrosis of lower extremity, excluding foot Comment: 2004, resolved No date: Kidney stones 05/26/2011: Migraine headache No date: other Comment: Sever's Disease, 2006, resolved 01/27/2010: Other acne No date: Pain in joint, site unspecified Comment: AC joint tear, 200504/18/2012: Patient requested diagnostic testing Comment: 04/18/2012 Patient desires early screening in with sequential testing. 04/18/2012: Poor support system complicating Comment: 04/18/2012The father of the baby is aware that she is , but does not wish to be involved. Patient states her parents are very supportive. Patient is tearful for some of this visit today due to the father of the baby. She states he has put pressure on her in the past to have an , but she does not wish to do that. Patient was given a brochure on the care center and WIC. No date: depression No date: PTSD (post-traumatic stress disorder) 01/27/2010: Rosacea 04/22/2012: Rubella non-immune status No date: Skin cancer 04/22/2012: Teen Comment: July 04, 2012 Flu vaccine given 01/27/2010: Telangiectasia No date: Tobacco use disorder PAST SURGICAL HISTORY 05/11/2023: CERVIX UTERI CONIZA LP ELCTRO EXCI Comment: at [facility]-Dr. Millan 01/01/2010: PAST SURGICAL HISTORY OF Comment: Removal of 4 [place]re[place] Teeth No date: PAST SURGICAL HISTORY OF Comment: basal cell carcinoma removed from scalp FAMILY HISTORY Problem Relation Age of Onset Skin Cancer Mother Hypertension Mother Heart Failure Mother Liver Cancer Mother 66 Heart Father TRIPLE BYPASS SURGERY Hypertension Father Diabetes Father Diabetes Sister No Known Problems Sister No Known Problems Sister No Known Problems Brother No Known Problems Brother No Known Problems Brother Heart Maternal Grandmother from heart problems Heart Maternal Grandfather from heart problems Cancer Maternal Grandfather lung Hypertension Maternal Grandfather No Known Problems Daughter Social History Tobacco Use Smoking status: Former Current packs/day: 1.00 Average packs/day: 1 pack/day for 9.0 years (9.0 ttl pk-yrs) Types: Cigarettes Smokeless tobacco: Current Tobacco comments: Vapes Vaping Use Vaping status: current everyday user Substances: Nicotine Devices: Pre-filled or refillable cartridge Substance and Sexual Activity Alcohol use: Not Currently Drug use: Not Currently Types: Heroin, Marijuana Comment: Patient states I have used multiple drugs in the past Sex (more content not included)... Normal [facility] No Panel Informationon 10-03 [facility] Basic metabolic 2000 panelon 08-26-2023 Anion gap [Moles/Vol] 9 mmol/L Low 10 - 2 0 mmol/L [facility] Calcium [Mass/Vol] 9.4 mg/dL 8.6 - 10. 3 mg/dL [facility] Chloride [Moles/Vol] 106 mmol/L 98 - 10 7 mmol/L [facility] CO2 [Moles/Vol] 25 mmol/L 21 - 32 mmol/L [facility] Creatinine [Mass/Vol] 0.66 mg/dL 0.50 - 1.05 mg/dL [facility] eGFR - PINF [facility] Comment on above: Calculations of jamila mated GFR are performed using the 2020 CKD-EPI Study Refit equation without the race variable for the IDMS-Traceable creatinine methods. https://jasn.asnjournals.org/content//ASN.78508 [address] Glucose [Mass/Vol] 99 mg/dL 74 - 99 mg/dL [facility] Interpretation and review of laboratory results Abnormal [facility] Potassium [Moles/Vol] 3.3 mmol/L Low 3.5 - 5.3 mmol/L [facility] Sodium [Moles/Vol] 137 mmol/L 136 - 145 mmol/L [facility] Urea nitrogen [Mass/Vol] 12 mg/dL 6 - 23 mg/dL [facility] CBC W Auto Differential pane l (Bld)on 08-26-2023 Basophils (Bld) [#/Vol] 0.03 10*3/uL [facility] Basophils/100 WBC (Bld) 0.2 % 0.0 - 2.0 % [facility] Eosinophils (Bld) [#/Vol] 0.07 10*3/uL [facility] Eosinophils/100 WBC (Bld) 0.5 % 0.0 - 6.0 % [facility] Erythrocyte distribution width (RBC) [Ratio] 11.7 % 11.5 - 14.5 % [facility] Hematocrit (Bld) [Volume fraction] 36.8 % 36.0 - 46.0 % [facility] Hemoglobin (Bld) [Mass/Vol] 12.6 g/dL 12.0 - 16.0 g/dL [facility] Immature granulocytes (Bld) [#/Vol] 0.02 10*3/uL [facility] Immature granulocytes/100 WBC (Bld) 0.2 % 0.0 - 0.9 % [facility] Comment on above: Immature Granulocyte Count (IG) includes promyelocytes, myelocytes and metamyelocytes but does not include bands. Percent differential counts (%) should be interpreted in the context of the absolute cell counts (cells/UL). Interpretation and review of laboratory results Abnormal [facility] Lymphocytes (Bld) [#/Vol] 3.12 10*3/uL [facility] Lymphocytes/100 WBC (Bld) 24.2 % 13.0 - 44.0 % [facility] MCH (RBC) [Entitic mass] 30.1 pg 26.0 - 34.0 pg [facility] MCHC (RBC) [Mass/Vol] 34.2 g/dL 32.0 - 36.0 g/dL [facility] MCV (RBC) [Entitic vol] 88 fL 80 - 100 fL [facility] Monocytes (Bld) [#/Vol] 0.68 10*3/uL [facility] Monocytes/100 WBC (Bld) 5.3 % 2.0 - 10.0 % [facility] Neutrophils (Bld) [#/Vol] 8.95 10*3/uL High [facility] Comment on above: Percent differential counts (%) should be interpreted in the context of the absolute cell counts (cells/uL). Neutrophils/100 WBC (Bld) 69.6 % 40.0 - 80.0 % [facility] Nucleated RBC/100 WBC (Bld) [Ratio] 0.0 % [facility] Platelets (Bld) [#/Vol] 250 10*3/uL [facility] RBC (Bld) [#/Vol] 4.19 10*6/uL [facility] WBC (Bld) [#/Vol] 12.9 10*3/uL High [facility] CT Abdomen WO contraston Bilateral nonobstructing renal calculi, greater on the right. No obstructive uropathy identified. Possible right adrenal adenoma. MACRO: None Signed by: Federica Sutherland 08/26/2023 9:20 PM Dictation workstation: [id number] [facility] Interpreted By: Federica Sutherland, STUDY: CT abdomen pelvis without contrast INDICATION: Signs/Symptoms:flank pain. COMPARISON: None. ACCESSION NUMBER(S): [id number] ORDERING CLINICIAN: WILVER TARANGO TECHNIQUE: Axial noncontrast CT images of the abdomen and pelvis with coronal and sagittal reconstructed images. FINDINGS: LOWER CHEST: No acute abnormality of the lung bases. BONES: No acute osseous abnormality. ABDOMINAL WALL: Within normal limits. ABDOMEN: Lack of intravenous contrast limits evaluation of vessels and solid organs. LIVER: Within normal limits. BILE DUCTS: Normal caliber. GALLBLADDER: No calcified gallstones. No wall thickening. PANCREAS: No peripancreatic inflammatory stranding or duct dilatation. SPLEEN: Within normal limits. ADRENALS: 2.2 cm low-attenuation nodule in the right adrenal gland. KIDNEYS, URETERS, URINARY BLADDER: Non-obstructing lower pole renal calculi measuring up to 13 mm on the right and 4 mm on the left. A punctate low-attenuation focus in left interpolar kidney could represent a small cyst or tiny angiomyolipoma. The urinary bladder is unremarkable. VESSELS: No aortic aneurysm. RETROPERITONEUM: No pathologically enlarged lymph nodes. PELVIS: REPRODUCTIVE ORGANS: IUD noted in expected position. No significant free pelvic fluid. BOWEL: No dilated bowel. Moderate stool burden. Diverticulosis without CT evidence of acute diverticulitis. Normal appendix. PERITONEUM: No ascites or free air, no fluid collection. [facility] Federica Sutherland, Susan O - 08/26/2023 Interpreted By: Federica Sutherland, STUDY: CT abdomen pelvis without contrast INDICATION: Signs/Symptoms:flank pain. COMPARISON: None. ACCESSION NUMBER(S): [id number] ORDERING CLINICIAN: WILVER TARANGO TECHNIQUE: Axial noncontrast CT images of the abdomen and pelvis with coronal and sagittal reconstructed images. FINDINGS: LOWER CHEST: No acute abnormality of the lung bases. BONES: No acute osseous abnormality. ABDOMINAL WALL: Within normal limits. ABDOMEN: Lack of intravenous contrast limits evaluation of vessels and solid organs. LIVER: Within normal limits. BILE DUCTS: Normal caliber. GALLBLADDER: No calcified gallstones. No wall thickening. PANCREAS: No peripancreatic inflammatory stranding or duct dilatation. SPLEEN: Within normal limits. ADRENALS: 2.2 cm low-attenuation nodule in the right adrenal gland. KIDNEYS, URETERS, URINARY BLADDER: Non-obstructing lower pole renal calculi measuring up to 13 mm on the right and 4 mm on the left. A punctate low-attenuation focus in left interpolar kidney could represent a small cyst or tiny angiomyolipoma. The urinary bladder is unremarkable. VESSELS: No aortic aneurysm. RETROPERITONEUM: No pathologically enlarged lymph nodes. PELVIS: REPRODUCTIVE ORGANS: IUD noted in expected position. No significant free pelvic fluid. BOWEL: No dilated bowel. Moderate stool burden. Diverticulosis without CT evidence of acute diverticulitis. Normal appendix. PERITONEUM: No ascites or free air, no fluid collection. IMPRESSION: Bilateral nonobstructing renal calculi, greater on the right. No obstructive uropathy identified. Possible right adrenal adenoma. MACRO: None Signed by: Federica Sutherland 08/26/2023 9:20 PM Dictation workstation: [id number] [facility] Work Phone: Radiology Study observation (narrative) [facility] Work Phone: CT Abdomen WO contrastOrdere d By: Federica Sutherland on 08-26-2023 [facility] Work Phone: HCG ( test) IA.rapi d Ql (U)Ordered By: Janet Carvalho on 08-26-2023 HCG ( test) Ql (U) Negative NEGATIVE [facility] Interpretation and review of laboratory results Normal [facility] Hepatic function 2000 panelo n 08-26-2023 Albumin BCP dye [Mass/Vol] 4.4 g/dL 3.4 - 5.0 g/dL [facility] ALP [Catalytic activity/Vol] 81 U/L 33 - 110 U/L [facility] ALT With P-5'-P [Catalytic activity/Vol] 23 U/L 7 - 45 U/L [facility] Comment on above: Patients treated wit h Sulfasalazine may generate falsely decreased results for ALT. AST With P-5'-P [Catalytic activity/Vol] 16 U/L 9 - 39 U/L [facility] Bilirubin [Mass/Vol] 1.3 mg/dL High 0.0 - 1 .2 mg/dL [facility] Bilirubin.direct [Mass/Vol] 0.2 mg/dL 0.0 - 0.3 mg/dL [facility] Interpretation and review of laboratory results Abnormal [facility] Protein [Mass/Vol] 7.1 g/dL 6.4 - 8.2 g/dL [facility] Lipaseon 08-26-2023 Lipase [Catalytic activity/Vol] 20 U/L 9 - 82 U/L [facility] Lipase [Catalytic activity/V ol]on 08-26-2023 Interpretation and review of laboratory results Normal [facility] Venipuncture immediately after or during the administration of Metamizole may lead to falsely low results. Testing should be performed immediately prior to Metamizole dosing. [facility] No Panel Informationon 08-26 [facility] Interpretation and review of laboratory results Abnormal [facility] Urinalysis complete W Reflex Culture panel (U)on 08-26-2023 Appearance (U) Hazy Abnormal Clear [facility] Bilirubin (U) [Mass/Vol] Negative NEGATIVE [facility] Color (U) Gina Abnormal Straw, Yellow [facility] Glucose Auto test strip (U) [Mass/Vol] Negative NEGATIVE mg/dL [facility] Ketones (U) [Mass/Vol] Negative NEGAT SHAUNA mg/dL [facility] Leukocyte esterase Auto test strip Ql (U) MODERATE (2+) Abnormal NEGATIVE [facility] Nitrite Auto test strip Ql (U) Positive Abnormal NEGATIVE [facility] pH (U) 8.0 [pH] 5.0, 5.5, 6.0, 6.5, 7.0, 7.5, 8.0 [facility] Protein (U) [Mass/Vol] 100 (2+) Abnormal NEGAT SHAUNA mg/dL [facility] RBC (U) [#/Vol] LARGE (3+) Abnormal NEGATIVE [facility] Specific gravity (U) [Rel density] 1.011 1.005 - 1.035 [facility] Urobilinogen (U) [Mass/Vol] 2.0 mg/dL Abnormal NINF - 2.0 mg/dL [facility] Comment on above: Due to a manufacturi ng issue, low positive urobilinogen results may be falsely positive. Correlate with urine bilirubin and additional clinical/laboratory findings to assess the risk of hemolytic anemia or liver disease. If clinically indicated, repeat testing with an alternate method is available by contacting the laboratory within 24 hours. Some pigments and medications may cause a false positive urobilinogen. Urinalysis microscopic panel Auto Ql (U)on 08-26-2023 Bacteria Auto (Urine sed) [#/Area] 1+ Abnormal NONE SEEN /HPF [facility] Epithelial cells.squamous Auto (Urine sed) [#/Area] 1-9 (SPARSE) Reference range not established . /HPF [facility] Leukocyte clumps Auto (Urine sed) [#/Area] OCCASIONAL Reference range not established . /HPF [facility] RBC Auto (Urine sed) [#/Area] >20 Abnormal NONE, 1-2, 3-5 /HPF [facility] WBC Auto (Urine sed) [#/Area] >50 Abnormal 1-5, NONE /HPF [facility] Absolute lymphocyte countOrd ered By: Ammon Londono on 06-04-2023 Lymphocytes Auto (Unsp spec) [#/Vol] 3.40 10*3/uL 0.83-4.[address] [facility] Basophil percentageOrdered B y: Ammon Londono on 06-04-2023 Basophils/100 WBC (Bld) 0.3 % 0-[address] [facility] Chloride [Moles/Vol] 107 mmol/L 98-107 [facility] Eosinophils/100 WBC (Bld) 1.8 % 0-[address] [facility] Glucose [Mass/Vol] 99 mg/dL 74-106 [facility] Neutrophils (Bld) [#/Vol] 5.6 10*3/uL 2.0-7.[address] [facility] Neutrophils/100 WBC (Bld) 57.0 % 47-[address] [facility] Potassium [Moles/Vol] 3.9 mmol/L 3.5-5.1 [facility] Sodium [Moles/Vol] 140 mmol/L 136-145 [facility] WBC (Bld) [#/Vol] 9.8 10*3/uL 4.4-11.0 [facility] Blood erythrocytes count (nu mber/volume)Ordered By: Ammon Londono on 06-04-2023 RBC (Bld) [#/Vol] 4.34 10*6/uL 4.2-5.4 [facility] Blood hemoglobin measurement (mass/volume)Ordered By: Ammon Londono on 06-04-2023 Hemoglobin (Bld) [Mass/Vol] 13.1 g/dL 12.0-15.[address] [facility] Blood lymphocytes/100 leukoc ytesOrdered By: Ammon Londono on 06-04-2023 Lymphocytes/100 WBC (Bld) 34.8 % 19-[address] [facility] Blood monocytes/100 leukocyt esOrdered By: Ammon Londono on 06-04-2023 Monocytes/100 WBC (Bld) 5.9 % 0-[address] [facility] Blood platelet mean volumeOr dered By: Ammon Londono on 06-04-2023 Platelet mean volume (Bld) [Entitic vol] 9.9 fL 6.2-12.[address] [facility] Determination of erythrocyte mean corpuscular volume (MCV)Ordered By: Ammon Londono on 06-04-2023 MCV (RBC) [Entitic vol] 87.3 fL 81-[address] [facility] Hematocrit Auto (Bld) [Volum e fraction]Ordered By: Ammon Londono on 06-04-2023 Hematocrit (Bld) [Volume fraction] 37.9 % 37-[address] [facility] Laboratory - Chemistry and C hemistry - challengeOrdered By: Ammon Londono on 06-04-2023 CO2 [Moles/Vol] 27.0 mmol/L 21.0-32.[address] [facility] Urea nitrogen/Creatinine [Mass ratio] 16.0 mg/mg 10-[address] [facility] Laboratory - Hematology and Cell countsOrdered By: Ammon Londono on 06-04-2023 Erythrocyte distribution width (RBC) [Entitic vol] 38.4 fL 35.1-43.[address] [facility] Erythrocyte distribution width (RBC) [Ratio] 11.9 % 11.6-14.[address] [facility] Immature granulocytes/100 WBC (Bld) 0.200 % 0.0-0.[address] [facility] Comment on above: IG% - Immature Granu locytes (promyelocytes, myelocytes and metamyelocytes) > 1% indicates that a LEFT SHIFT is Present. MCH (RBC) [Entitic mass] 30.2 pg 27.0-32.[address] [facility] Nucleated RBC/100 WBC (Bld) [Ratio] 0 % 0-[address] [facility] MCHC Auto (RBC) [Mass/Vol]Or dered By: Ammon Londono on 06-04-2023 MCHC (RBC) [Mass/Vol] 34.6 g/dL 32-36 [facility] No Panel InformationOrdered By: Ammon Londono on 06-04-2023 Troponin I High Sensitivity 5 pg/mL 3.0-54.[address] [facility] Comment on above: Please Note: New Du t Units and Gender Specific Reference Ranges. For more information see Policy Stat Procedure [place] High Sensitivity Troponin (TNIH) and attachments. Estimated Creatinine Clearance Calc 95.94 ml/min [facility] Estimated GFR (MDRD) Amer 107 mL/min >[address] [facility] Comment on above: GFR Calc Estimated GFR (MDRD) Non-Af Amer 88 mL/min >[address] [facility] Comment on above: Non- GFR Calc No Panel InformationOrdered By: Elma Gomez on 06-04-2023 D-Dimer Quantitative (PE/DVT) 0.53 FEU/ug/m 0.27-0.[address] [facility] Comment on above: CRITICAL VALUE VERIF IED. CALLED TO JUAN BADILLO RN ER06/04/231956 Khadijah Levin.RESULTS READ BACK BY SAME . D-Dimer ELEVATED (>0.49): Additional studies and clinicalassessments are indicated to conclude diagnosis of:Deep Vein Thrombosis (DVT) or Pulmonary Embolism (PE) Platelets bldOrdered By: Jackie Londono on 06-04-2023 Platelets (Bld) [#/Vol] 309 10*3/uL 150-[address] [facility] Serum or plasma calcium hugo urement (mass/volume)Ordered By: Ammon Londono on 06-04-2023 Calcium [Mass/Vol] 9.0 mg/dL 8.5-10.1 [facility] Serum or plasma creatinine m easurement (mass/volume)Ordered By: Ammon Londono on 06-04-2023 Creatinine [Mass/Vol] 0.81 mg/dL 0.55-1.02 [facility] Comment on above: The validity of the calculated GFR & GFRAA in patients over 70 years has not been determined. Clinical correlation is essential. Serum or plasma urea nitroge n measurement (mass/volume)Ordered By: Ammon Londono on 06-04-2023 Urea nitrogen [Mass/Vol] 13 mg/dL 7-[address] [facility] Thin prep Papanicolaou smear with manual screeningOrdered By: Ammon Londono on 06-04-2023 Thin prep Papanicolaou smear with manual screening 6 5-[address] [facility] ECG 12 leadon 06-03-2023 ECG 12 [place] [address] Electrocardiograph Report Signed Patient: FADUMO HENSLEY MR#: [id number] : 1995 Acct:[id number] Age/Sex: 27 / F ADM Date: 06/03/23 Loc: ER Attending Dr: Segundo Physician: Kylee Neely Date of Service: 06/03/23 Procedure(s): ECG 12 lead Accession Number(s): [id number] cc: [facility] Test Date: 2023-06-03 Pat Name: FADUMO HENSLEY Department: Room: - Gender: Female Certified First Assistant: : 1995 Requested By: 0923 Order Number: [id number] Reading MD: IESHA SEGUNDO Measurements Intervals [place] Rate: 87 P: 60 RI: 134 QRS: 86 QRSD: 130 T: 51 QT: 382 QTc: 426 Interpretive Statements 1100 Sinus rhythm 2450 Right bundle branch block 9150 abnormal ECG No previous ECG available for comparison Electronically Signed On 06-03-2023 18:27:26 EST by IESHA SEGUNDO Dictated By: Iesha Segundo D.O. Signed By: 06/03/23 1827 DD/ 1726 TD/TT: Car Rental Service Attendant: [facility] [place] EDon 06-03-2023 [place] [address] Emergency Department Note Signed Patient: FADUMO HENSLEY MR#: [id number] : 1995 Acct:[id number] Age/Sex: 27 / F ADM Date: 06/03/23 Loc: ER Date of Service: 06/03/[address]: cc: Kylee Neely; Alberto Caceres D.O.; Physician,Non-Staff Jemal HPI - Dizziness General Chief Complaint: Dizziness Stated Complaint: UE NUMBNESS/CHEST PAIN Time Seen by Provider: 06/03/23 17:34 Source: patient Mode of arrival: walk-in Limitations: no limitations History of Present Illness HPI Narrative: 27-year-old female presents with a chief complaint of tingling to the hand and right side of her face. She states she was driving her stepchild nursing home point from [place] and had a hypoglycemic event. She states she pulled over and got something to eat. The symptoms numbness and tingling to hands and face then followed.She is alert and oriented. She states that a history of anxiety in the past with similar symptoms. She denies any hyperventilation. She states she's had a lot going on her life recently. She had spots on her cervix and had to have a LEEP procedure performed. No acute shortness of breath or chest pain with activity Related Data Allergies Allergy/AdvReac Type Severity Reaction Status Date / Time cetirizine [From [facility]] AdvReac Flushing Verified 06/03/23 17:27 Review of Systems ROS Narrative All Systems are negative except as noted/marked.All systems reviewed and otherwise negative Exam Narrative Exam Narrative: Patient is a All Systems are negative except as noted/marked.All systems reviewed and otherwise negative Nurses note and vital signs reviewed and patient is not hypoxic. General: The patient appears well and in no apparent distress. Patient is resting comfortably on cart. Skin: Warm, dry, no pallor noted. There is no rash noted. Head: Normocephalic, atraumatic Eye: Normal conjunctiva, no drainage, EOMI. PERRL Ears, Nose, Mouth, and Throat: oral mucosa is moist. Nares patent. Mouth without vesicles. Ear canals patent. Tm's without Erythema Cardiovascular: Regular Rate and Rhythm Respiratory: Patient is in no distress, no accessory muscle use, lungs are clear to auscultation, no wheezing, rales or rhonchi Back: non-tender, no CVA tenderness bilaterally to percussion. GI: Normal bowel sounds, no tenderness to palpation, no masses appreciated. No rebound, guarding, or rigidity noted. Musculoskeletal: The patient has no evidence of calf tenderness, no pitting edema, symmetrical pulses noted bilaterally Neurological: A O x4, normal speech Psychiatric: Cooperative Constitutional Vital Signs, click to edit/add: Last Vital Signs Temp 98.4 F 06/03/23 17:27 Pulse 96 H 06/03/23 18:20 Resp 22 06/03/23 18:20 BP 135/78 06/03/23 18:00 Pulse Ox 97 06/03/23 18:20 O2 Del Method Room Air 06/03/23 17:33 Course Vital Signs Vital signs: Vital Signs Pulse Rate 86 06/03/23 17:26 Respiratory Rate 17 06/03/23 17:26 Pulse Oximetry 97 06/03/23 17:26 Temperature 98.4 F 06/03/23 17:27 Pulse Rate 96 H 06/03/23 18:20 Respiratory Rate 22 06/03/23 18:20 Blood Pressure 135/78 06/03/23 18:00 Pulse Oximetry 97 06/03/23 18:20 Oxygen Delivery Method Room Air 06/03/23 17:33 MDM - Dizziness MDM Narrative Medical decision making narrative: Presented here chief complaint of numbness and tingling to her hands and face. Symptoms have subsided but patient still complains of chest cage he review showed no acute STEMI. Patient's heart score is zero. Patient's medicated here with one Ativan. Chest x-ray is also negative. Patient states she had a hypoglycemic attack prior to the symptoms she was having. Glucose is one ninety-two here. Patient is stable be discharged home. Medical Records Attestation: I reviewed the patient's medical records. Lab Data Attestation: I reviewed the patient's lab results. Labs: Lab Results 06/03/23 Range/Units 18:04 POC Glucose 192 H (74-106) mg/dL ECG Data Attestation: ?I have reviewed the pertinent ECG results. Interpretation: 1726 EKG showed normal sinus rhythm with rate of 87 bpm RI interval 134 ms QRS duration 130 ms, no STEMI. Discharge Plan Discharge Chief Complaint: Dizziness Clinical Impression: Stress reaction, Chest wall pain Patient Disposition: Home, Self-Care Time of Disposition Decision: 19:28 Condition: Good Instructions: Stress (ED), Chest Wall Pain (ED) Stand Alone Forms: Portal Instructions Referrals: Physician,Non-Staff, [Primary Care Provider] - 1 week Discharge Date/Time: 06/03/23 19:55 Documented By: Alberto Caceres D.O. 06/03/23 1806 Signed By: 06/06/23 0712 05/23 Normal [facility] Laboratory - Chemistry and C hemistry - challengeon 06-03-2023 Glucose [Mass/Vol] 192 mg/dL 74-106 [facility] Work Phone: XR chest 2Von 06-03-2023 XR chest 2V [facility] [address] [place] [address] XRay Report Signed Patient: FADUMO HENSLEY MR#: [id number] : 1995 Acct:[id number] Age/Sex: 27 / F ADM Date: 06/03/23 Loc: ER Attending Dr: Ordering Physician: Kylee Neely Date of Service: 06/03/23 Procedure(s): XR chest 2V Accession Number(s): [id number] cc: Kylee Neely; Physician,Non-Staff [facility]ra[facility] [address] [id number] Patient Name: FADUMO HENSLEY MRN: [id number] date: 1995 Sex: F Assigned Patient Location: ER Current Patient Location: ER Accession/Order Number: [id number] Exam Date: 06/03/2023 17:45 Report Date: 06/03/2023 19:21 At the request of: KYLEE NEELY Procedure: XR chest 2V EXAM: XR chest 2V REASON FOR EXAM: Female, 27 years, pain. TECHNIQUE: PA and lateral views of the chest are performed. COMPARISON: None. FINDINGS: The lungs are expanded and clear. Normal pleura. Normal size heart. Normal mediastinum and giulia. Normal visualized pulmonary arteries. Normal visualized aortic arch and descending thoracic aorta. Normal visualized thoracic spine. Normal visualized ribs, clavicles, and shoulders. There is no demonstrated abnormality of the visualized soft tissue structures of the upper abdomen. XR/XR chest 2V IMPRESSION: Normal examination of the chest. Electronically authenticated by: ROOPA BRISENO Date: 06/03/2023 19:21 Dictated By: Roopa Briseno M.D. Signed By: 06/03/231923 DD/ 20 TD/TT: Car Rental Service Attendant: [facility] Laboratory - Chemistry and C hemistry - challengeOrdered By: Elvis Johnson on 05-11-2023 HCG ( test) Ql (U) Negative [facility] Comment on above: Very dilute urine sp ecimens, as indicated by a low specificgravity, may not contain artist representative levels of hCG. If is still suspected, a first morning urinespecimen should be collected 48 hours later and tested. CNPMulu 03-13-2023 CNPN Telephone (AGSPINE3) FADUMO HENSLEY ([id number]) 1995 F Date Time Provider Department 03/13/23 LARIOS CHALO AGSPINE3 During your visit today, we recorded the following information about you: Honey Wesley 03/13/2023 8:54 AM Signed ----- Message from Aliyah Cristobal sent at 03/13/2023 8:35 AM EDT ----- Regarding: Spine and Pain/ asking for soon appt at [place] location due to severe back pain Contact: Subject Line Format: Medicine / [Provider Name] / [Issue] Patient has been identified by name and Date of (Y/N): y Patient: Fadumo Hensley Date of : 1995 Provider for this encounter: Previous Dr Bassett patient Reason for the call/escalation: patient use to see Dr Bassett for back pain and wants to be seen again but only at the [place] location but is in such severe pain wants to be seen sooner then I have an opening if you can please call her to see what can be done. Thanks Was Patient Referred to [facility]/Seek Emergency Treatment (Y/N): n Did Patient Agree (Y/N): n Was An Attempt Made To Transfer The Patient To The Office (Y/N): n Were You Able To Reach Someone At The Office (Y/N): n If Yes - Patient Was Transferred To (Caregivers Name): n If No - Which [facility] Leadership Security Guard Did You Speak With Regarding This Patient: n Was an appointment scheduled (Y/N): n Reason patient was requesting visit (RFV/signs and symptoms/diagnosis) : n Person calling if other than patient: self Return call to if other than patient: self Best contact number: [phone] Thank you, Aliyah Levar March 13, 2023 8:36 AM Honey Wesley 03/13/2023 8:56 AM Signed Patient will need to be seen in person since she was last seen in 2020... [facility] next available is 04/[address] Larios's next available is 05/17 in [place].. Please scheduled patient and we can place her on the wait list if she would Iike. Honey Wesley Multi-Site Simulation Analyst [facility] [place] [facility] [address] [place] [address] P: [phone] F: [phone] Sherin Downing 03/13/2023 11:03 AM Signed Patient answered and hung up during 1st call. Attempted to call patient again and LVM. Sherin Vargas 03/14/2023 8:24 AM Signed Patient is scheduled for a virtual visit with Brendon on 03/15/2023. Sherin Downing Allergies As of Date: 03/13/2023 Noted Allergy Reaction ZYRTEC (CETIRIZINE HCL) 05/08/2006 5 - Intolerance Comments: tremors Date Reviewed: 03/13/2023 Reviewed by: Maria Antonia Olsen LPN - Fully Assessed Reason for Visit: Appointment [186] Prescriptions as of 03/14/2023 - lisdexamfetamine (VYVANSE) 40 mg capsule Take 1 capsule by mouth once daily for 30 days. - SUMAtriptan (IMITREX) 50 mg tablet Take 1 tablet by mouth once daily. prn - levonorgestrel (PLAN B ONE-STEP) 1.5 mg tab Take 1 tablet by mouth one time only for 1 dose. - Etonogestrel-Ethinyl Estradiol (NUVARING) 0.12-0.015 mg/24 hr vaginal ring Use 1 Each vaginally as directed. INSERT ONE(1) RING VAGINALLY AND LEAVE IN PLACE FOR THREE WEEKS, THEN REMOVE FOR 1 WEEK. - ferrous sulfate (IRON ORAL) Take by mouth. - albuterol HFA (PROAIR HFA) 90 mcg/actuation inhaler Inhale 2 Puffs as instructed every 4 hours as needed for wheezing/shortness of breath. Used for seasonal allergies Problem List As Of Date 03/13/2023 Noted Resolved Attention deficit disorder [F98.8] 11/27/2007 Telangiectasia [I78.1] 01/27/2010 09/18/2019 Rosacea [L71.9] 01/27/2010 09/18/2019 Other acne [L70.8] 01/27/2010 09/18/2019 Depression [F32.A] 05/26/2011 09/18/2019 Tobacco use in [O99.330] 04/18/2012 10/08/2012 History of depression [Z86.59] 04/18/2012 01/01/2023 History of alcohol abuse [F10.11] 04/18/2012 01/01/2023 Family history of congenital heart defect [Z82.*04/18/2012 01/01/2023 with adoption planned [Z34.90] 04/22/2012 10/08/2012 Chlamydia infection [A74.9] 09/23/2013 09/18/2019 Routine gynecological examination [Z01.419] 12/09/2014 09/18/2019 Family history of leukemia [Z80.6] 02/04/2015 01/01/2023 Vapes nicotine containing substance [Z72.0] 09/07/2015 01/01/2023 Bulging of intervertebral disc between L4 and L*09/07/2015 Migraine without aura and without status migrai*09/07/2015 Uncomplicated asthma [J45.909] 09/07/2015 09/18/2019 Drug abuse (HCC) [F19.10] 09/10/2015 Hepatitis C [B19.20] 2018 ASCUS with positive high risk HPV cervical [R87*09/26/2019 01/01/2023 Intractable low back pain [M54.59] 04/27/2020 Urinary incontinence [R32] 04/27/2020 04/28/2020 Nicotine use disorder, F17.2 [F17.200] 04/27/2020 Mild intermittent asthma without complication [*08/03/2020 Basal cell carcinoma (BCC) of scalp [C44.41] 12/09/2020 HSIL (high grade squamous intraepithelial lesio*01/10/2022 01/01/2023 Spotting in early [O26.85 (more content not included)... Normal [facility] UA DIP, URINE (POC)on 2022 BILIRUBIN UA (POCT) Negative Negative [facility] CLARITY UA (POCT) Clear [facility] COLOR UA (POCT) Light yellow [facility] GLUCOSE UA (POCT) Negative Negative mg/dL [facility] Hemoglobin Ql (U) Negative Negative [facility] KETONE UA (POCT) Negative Negative mg/dL [facility] LEUKOCYTES UA (POCT) Trace Abnormal Negative [facility] NITRITE UA (POCT) Negative Negative [facility] PH UA (POCT) 7.0 4.5 - 8.0 [facility] Protein Ql (U) Negative Negative mg/dL [facility] SPECIFIC GRAVITY UA (POCT) 1.020 1.005 - 1.030 [facility] UROBILINOGEN UA (POCT) 0.2 E.U./dL Ayleen l E.U./dL [facility] PAIN PANEL, UR QUANTon 02-18 9-Vfbtpvckyw-1,5-Dimet hyl-3,3-Diphenylpyrrol idine (EDDP) Confirm (U) [Mass/Vol] <6 ng/mL [facility] 6-Monoacetylmorphine (6-RAISA) (U) [Mass/Vol] <5 ng/mL [facility] Amphetamine Confirm (U) [Mass/Vol] <5 ng/mL [facility] Benzoylecgonine Confirm (U) [Mass/Vol] <24 ng/mL [facility] Buprenorphine (U) [Mass/Vol] <20 ng/mL [facility] Cannabinoids Confirm (U) [Mass/Vol] <16 ng/mL [facility] Codeine Confirm (U) [Mass/Vol] <11 ng/mL [facility] Dihydrocodeine Confirm (U) [Mass/Vol] <5 ng/mL [facility] fentaNYL Confirm (U) [Mass/Vol] <6 ng/mL [facility] HYDROcodone Confirm (U) [Mass/Vol] <8 ng/mL [facility] HYDROmorphone Confirm (U) [Mass/Vol] <5 ng/mL [facility] Methadone Confirm (U) [Mass/Vol] <16 ng/mL [facility] Methamphetamine Confirm (U) [Mass/Vol] <8 ng/mL [facility] Morphine Confirm (U) [Mass/Vol] <10 ng/mL [facility] Norbuprenorphine (U) [Mass/Vol] <20 ng/mL [facility] Norfentanyl Confirm (U) [Mass/Vol] <6 ng/mL [facility] Nortramadol (U) [Mass/Vol] <20 ng/mL [facility] Note,Ur Pain [facility] oxyCODONE Confirm (U) [Mass/Vol] <10 ng/mL [facility] oxyMORphone Confirm (U) [Mass/Vol] <5 ng/mL [facility] traMADol Confirm (U) [Mass/Vol] <25 ng/mL [facility] SPECIMEN VALIDITY, URINEon 0 02-18-2023 Specimen Validity Chromate <50 mg/L [facility] Specimen Validity Creatinine 112.0 mg/dL 20.0 - 300.0 mg/dL [facility] Specimen Validity Nitrites <500 mg/L [facility] Specimen Validity Oxidants <200 mg/L [facility] Specimen Validity PH 5.8 4.5 - 8.0 [facility] Specimen Validity Quality Specimen quality results within acceptable limits [facility] Specimen Validity Specific [place] 1.028 1.003 - 1.035 [facility] Basophil percentageOrdered B y: Sveta Awad on 02-16-2023 Basophil percentage 0-5 SEEN /hpf 0-5 [facility] Bilirubin Test strip Ql (U)O rdered By: Sveta Awad on 02-16-2023 Bilirubin Ql (U) Negative Negative [facility] Ketones Test strip Ql (U)Ord ered By: Sveta Awad on 02-16-2023 Ketones Ql (U) Negative Negative [facility] Mucus LM Ql (Urine sed)Order ed By: Sveta Awad on 02-16-2023 Mucus Ql (Urine sed) 0 [facility] Nitrite Test strip Ql (U)Ord ered By: Sveta Awad on 02-16-2023 Nitrite Ql (U) Negative Negative [facility] Protein Test strip Ql (U)Ord ered By: Sveta Awad on 02-16-2023 Protein Ql (U) 15 mg/dl Negative [facility] Squamous epithelial cells de tection in urine sediment by light microscopyOrdered By: vSeta Awad on 02-16-2023 Epithelial cells.squamous LM Ql (Urine sed) 0-5 SEEN /hpf 5-[address] [facility] Urine blood detectionOrdered By: Sveta Awad on 02-16-2023 RBC Ql (U) 25 /ul Negative [facility] RBC Ql (U) 0-5 SEEN /hpf 0-[address] [facility] Urine clarityOrdered By: Devang Awad on 02-16-2023 Clarity (U) Clear Clear [facility] Urine color determinationOrd ered By: Sveta Awad on 02-16-2023 Color (U) Yellow Yellow [facility] Urine glucose detectionOrder ed By: Sveta Awad on 02-16-2023 Glucose Ql (U) Normal mg/dl Normal [facility] Urine leukocyte esterase det ection by dipstickOrdered By: Sveta Awad on 02-16-2023 Leukocyte esterase Test strip Ql (U) 25 /ul Negative [facility] Urine pHOrdered By: Luca Awad on 02-16-2023 pH (U) 6.5 [pH] 5.0 - 8.[address] [facility] Urine sediment bacteria coun t by microscopy (number/high power field)Ordered By: Sveta Awad on 02-16-2023 Bacteria LM.HPF (Urine sed) [#/Area] 0 /[HPF] None Seen [facility] Urine specific gravity measu rementOrdered By: Sveta Awad on 02-16-2023 Specific gravity (U) [Rel density] 1.015 1.002-1.[address] [facility] Urobilinogen Auto test strip Ql (U)Ordered By: Sveta Awad on 02-16-2023 Urobilinogen Ql (U) Normal mg/dl Normal [facility] - Drug toxicology on 02-15-2023 Amphetamines Confirm (U) [Mass/Vol] Negative Negative [facility] Cocaine Ql (U) Negative Negative [facility] Ethanol (U) [Mass/Vol] <11 mg/dL Cl [facility] Opiates Screen Ql (U) Negative Negative [facility] oxyCODONE cutoff Screen (U) [Mass/Vol] Negative Negative [facility] Phencyclidine Ql (U) Negative Negative [facility] No Panel Informationon 02-15 Barbiturates Urine Negative Negative [facility] Benzodiazepines Urine Negative Negative [facility] TOX SCREEN ROUT URon 023 Cannabinoids Screen Ql (U) Negative Negative [facility] Cannabinoids, Urine Negative Negative [facility] HCG QUAL UR B/Oon 02-14-2023 status Negative neg - pos [facility] Quality Check [facility] Glucose Glucometer (BldC) [M ass/Vol]Ordered By: Dr. Millan on 11-23-2022 Glucose [Mass/Vol] 100 mg/dL 74-106 [facility] Comment on above: MANAGEMENT OF PATIEN T CARE PER NURSING PROTOCOL Absolute lymphocyte countOrd ered By: Dr. Millan on 11-22-2022 Lymphocytes Auto (Unsp spec) [#/Vol] 2.37 10*3/uL 0.83-4.[address] [facility] Basophil percentageOrdered B y: Dr. Millan on 11-22-2022 Basophils/100 WBC (Bld) 0.3 % 0-[address] [facility] Eosinophils/100 WBC (Bld) 1.8 % 0-[address] [facility] Neutrophils (Bld) [#/Vol] 6.0 10*3/uL 2.0-7.[address] [facility] Neutrophils/100 WBC (Bld) 62.8 % 47-[address] [facility] WBC (Bld) [#/Vol] 9.5 10*3/uL 4.4-11.0 [facility] Blood erythrocytes count (nu mber/volume)Ordered By: Dr. Milaln on 11-22-2022 RBC (Bld) [#/Vol] 3.56 10*6/uL 4.2-5.4 [facility] Blood hemoglobin measurement (mass/volume)Ordered By: Dr. Millan on 11-22-2022 Hemoglobin (Bld) [Mass/Vol] 10.2 g/dL 12.0-15.[address] [facility] Blood lymphocytes/100 leukoc ytesOrdered By: Dr. Millan on 11-22-2022 Lymphocytes/100 WBC (Bld) 24.9 % 19-[address] [facility] Blood monocytes/100 leukocyt esOrdered By: Dr. Millan on 11-22-2022 Monocytes/100 WBC (Bld) 8.8 % 0-[address] [facility] Blood platelet mean volumeOr dered By: Dr. Millan on 11-22-2022 Platelet mean volume (Bld) [Entitic vol] 10.8 fL 6.2-12.[address] [facility] Determination of erythrocyte mean corpuscular volume (MCV)Ordered By: Dr. Millan on 11-22-2022 MCV (RBC) [Entitic vol] 86.0 fL 81-[address] [facility] Hematocrit Auto (Bld) [Volum e fraction]Ordered By: Dr. Millan on 11-22-2022 Hematocrit (Bld) [Volume fraction] 30.6 % 37-[address] [facility] - Drug toxicology Ordered By: Dr. Millan on 11-22-2022 Benzodiazepines Ql (U) Negative < 200 ng/mL [facility] Cannabinoids Screen Ql (U) Negative < 50 ng/mL [facility] Cocaine Ql (U) Negative < 300 ng/mL [facility] Opiates Ql (U) Negative < 300 ng/mL [facility] - Hematology and Cell countsOrdered By: Dr. Millan on 11-22-2022 Erythrocyte distribution width (RBC) [Entitic vol] 43.8 fL 35.1-43.[address] [facility] Erythrocyte distribution width (RBC) [Ratio] 14.0 % 11.6-14.[address] [facility] Immature granulocytes/100 WBC (Bld) 1.400 % 0.0-0.[address] [facility] Comment on above: IG% - Immature Granu locytes (promyelocytes, myelocytes and metamyelocytes) > 1% indicates that a LEFT SHIFT is Present. MCH (RBC) [Entitic mass] 28.7 pg 27.0-32.[address] [facility] Nucleated RBC/100 WBC (Bld) [Ratio] 0 % 0-[address] [facility] MCHC Auto (RBC) [Mass/Vol]Or dered By: Dr. Millan on 11-22-2022 MCHC (RBC) [Mass/Vol] 33.3 g/dL 32-36 [facility] No Panel InformationOrdered By: Dr. Millan on 11-22-2022 MDMA (Ecstasy) Screen Negative < 500 ng/mL [facility] Urine Barbiturates Screen Negative < 200 ng/mL [facility] Urine Drug Screen Comment [facility] Comment on above: CONFIRMATORY TESTING FOR ALL POSITIVE URINE DRUG SCREENRESULTS WILL ONLY BE SENT OUT UPON PHYSICIAN ORDER. VISTA Urine Drug Screen methods provide only preliminaryanalytical test results. A more specific alternate chemicalmethod must be used in order to obtain a confirmedanalytical result. Gas chromatography/mass spectrometery(GC/MS) is the preferred confirmatory method. Clinicalconsideration and professional judgement should be appliedto any drug of abuse test result, particularly whenpreliminary positive results are used. URINE TCA TESTING MUST BE ORDERED SEPARATELY. USE TESTMNEMONIC: [facility] Urine Methadone Screen Negative < 300 ng/mL [facility] Platelets bldOrdered By: Dr. Millan on 11-22-2022 Platelets (Bld) [#/Vol] 263 10*3/uL 150-[address] [facility] Serum Treponema species anti body detectionOrdered By: Dr. Millan on 11-22-2022 Treponema sp Ab Ql (S) Non-Reactive [facility] Urine amphetamine measuremen t (moles/volume)Ordered By: Dr. Millan on 11-22-2022 Amphetamine (U) [Moles/Vol] Negative <1000 ng/mL [facility] Urine phencyclidine (PCP) de tectionOrdered By: Dr. Millan on 11-22-2022 Phencyclidine Ql (U) Negative < 25 ng/mL [facility] No Panel InformationOrdered By: Sulma Bartholomew on 11-15-2022 Vaginal Amniotic Fluid Detection Negative Negative [facility] Comment on above: Amniotic fluid not p resent indicates No Rupture of FetalMembranes at time of specimen collection. URINE OB DIP B/Oon 3 Glucose Ql (U) Negative Neg mg/dL [facility] Protein.monoclonal (U) [Mass/Vol] Negative Neg mg/dL [facility] OBSTETRIC ULTRASOUND WHIon 0 11-02-2022 [facility] URINE OB DIP B/Oon 3 Glucose Ql (U) Negative Neg mg/dL [facility] Protein.monoclonal (U) [Mass/Vol] Negative Neg mg/dL [facility] URINE OB DIP B/Oon 3 Glucose Ql (U) Negative Neg mg/dL [facility] Protein.monoclonal (U) [Mass/Vol] Negative Neg mg/dL [facility] URINE OB DIP B/Oon 3 Glucose Ql (U) Negative Neg mg/dL [facility] Protein.monoclonal (U) [Mass/Vol] Negative Neg mg/dL [facility] HSV+VZV DNA JESSICA+probe Ql (Un sp spec)on 07-28-2022 HSV 1 DNA JESSICA+probe Ql (Unsp spec) Negative for Herpes Simplex virus Type 1 by Nucleic Acid Amplification. Negative [facility] HSV 2 DNA JESSICA+probe Ql (Unsp spec) Negative for Herpes Simplex virus Type 2 by Nucleic Acid Amplification. Negative [facility] VZV DNA JESSICA+probe Ql (Unsp spec) Negative for Varicella Zoster virus by Nucleic Acid Amplification. Negative [facility] OBSTETRIC ULTRASOUND WHIon 0 07-27-2022 [facility] STREP A MOLECULAR (POC)on Procedural Control Valid [facility] Strep A (POCT) Negative Negative [facility] URINE OB DIP B/Oon 2 Glucose Ql (U) Negative Neg mg/dL [facility] Protein.monoclonal (U) [Mass/Vol] Negative Neg mg/dL [facility] NUCHAL TRANSLUCENCY WHIon [facility] URINE OB DIP B/Oon 2 Glucose Ql (U) Negative Neg mg/dL [facility] Protein.monoclonal (U) [Mass/Vol] Negative Neg mg/dL [facility] Basophil percentageon 2021 Basophil percentage 0 SEEN /hpf 0-5 [facility] Work Phone: Chloride [Moles/Vol] 108 mmol/L 98-107 [facility] Work Phone: Glucose [Mass/Vol] 91 mg/dL 74-106 [facility] Work Phone: [phone] Potassium [Moles/Vol] 4.0 mmol/L 3.5-5.1 [facility] Work Phone: Sodium [Moles/Vol] 138 mmol/L 136-145 [facility] Work Phone: Bilirubin Test strip Ql (U)o n 05-02-2022 Bilirubin Ql (U) Negative Negative [facility] Work Phone: Ketones Test strip Ql (U)on 05-02-2022 Ketones Ql (U) Negative Negative [facility] Work Phone: Laboratory - Chemistry and C hemistry - challengeon 05-02-2022 CO2 [Moles/Vol] 24.0 mmol/L 21.0-32.[address] [facility] Work Phone: Urea nitrogen/Creatinine [Mass ratio] 14.8 mg/mg 05-[address] [facility] Work Phone: Mucus LM Ql (Urine sed)on Mucus Ql (Urine sed) 0 SEEN /hpf [facility] Work Phone: Nitrite Test strip Ql (U)on 05-02-2022 Nitrite Ql (U) Negative Negative [facility] Work Phone: No Panel Informationon 05-02 Estimated Creatinine Clearance Calc 173.30 ml/min [facility] Work Phone: Estimated GFR (MDRD) Amer 201 mL/min >[address] [facility] Work Phone: Comment on above: GFR Calc Estimated GFR (MDRD) Non-Af Amer 166 mL/min >[address] [facility] Work Phone: Comment on above: Non- GFR Calc Protein Test strip Ql (U)on 05-02-2022 Protein Ql (U) Negative Negative [facility] Work Phone: Serum or plasma calcium hugo urement (mass/volume)on 05-02-2022 Calcium [Mass/Vol] 8.5 mg/dL 8.5-10.1 [facility] Work Phone: Serum or plasma creatinine m easurement (mass/volume)on 05-02-2022 Creatinine [Mass/Vol] 0.47 mg/dL 0.55-1.02 [facility] Work Phone: Comment on above: The validity of the calculated GFR & GFRAA in patients over 70 years has not been determined. Clinical correlation is essential. Serum or plasma urea nitroge n measurement (mass/volume)on 05-02-2022 Urea nitrogen [Mass/Vol] 7 mg/dL 7-[address] [facility] Work Phone: Squamous epithelial cells de tection in urine sediment by light microscopyon 05-02-2022 Epithelial cells.squamous LM Ql (Urine sed) 0 SEEN /hpf 5-[address] [facility] Work Phone: Thin prep Papanicolaou smear with manual screeningon 05-02-2022 Thin prep Papanicolaou smear with manual screening 6 5-[address] [facility] Work Phone: Urine blood detectionon 04-22 RBC Ql (U) Negative Negative [facility] Work Phone: RBC Ql (U) 0 SEEN /hpf 0-[address] [facility] Work Phone: Urine clarityon 05-02-2022 Clarity (U) Clear Clear [facility] Work Phone: Urine color determinationon 05-02-2022 Color (U) Yellow Yellow [facility] Work Phone: Urine glucose detectionon Glucose Ql (U) Normal mg/dl Normal [facility] Work Phone: Urine leukocyte esterase det ection by dipstickon 05-02-2022 Leukocyte esterase Test strip Ql (U) 25 /ul Negative [facility] Work Phone: Urine pHon 05-02-2022 pH (U) 7.0 [pH] 5.0 - 8.[address] [facility] Work Phone: Urine sediment bacteria coun t by microscopy (number/high power field)on 05-02-2022 Bacteria LM.HPF (Urine sed) [#/Area] 0 /[HPF] None Seen [facility] Work Phone: Urine specific gravity measu rementon 05-02-2022 Specific gravity (U) [Rel density] 1.010 1.002-1.[address] [facility] Work Phone: Urobilinogen Auto test strip Ql (U)on 05-02-2022 Urobilinogen Ql (U) Normal mg/dl Normal [facility] Work Phone: LABORATORYOrdered By: Kenyatta Mitchell on 04-03-2022 ABO/Rh Interp Positive Invalid Interpretation Code AO BB SS LABORATORYOrdered By: Gregorio Orr on 04-03-2022 Appearance (U) Cloudy *ABN* (04/03/22 3:49 PM) Invalid Interpretation Code Clear AO Auto Urine SS Bacteria LM.HPF (Urine sed) [#/Area] Trace /HPF Invalid Interpretation Code AO Auto Urine SS Bilirubin Ql (U) Negative (04/03/22 3:49 PM) Invalid Interpretation Code Negative AO Auto Urine SS Color (U) Yellow (04/03/22 3:49 PM) Invalid Interpretation Code AO Auto Urine SS Glucose Test strip (U) [Mass/Vol] Negative Invalid Interpretation Code Negativemg/ dL AO Auto Urine SS Hemoglobin Auto test strip (U) [Mass/Vol] Large *ABN* (04/03/22 3:49 PM) Invalid Interpretation Code Negative AO Auto Urine SS Ketones Ql (U) 40 mg/dL Invalid Interpretation Code Negativemg/ dL AO Auto Urine SS UA Leuk Est Negative (04/03/22 3:49 PM) Invalid Interpretation Code Negative AO Auto Urine SS UA Nitrite Negative (04/03/22 3:49 PM) Invalid Interpretation Code Negative AO Auto Urine SS UA pH 6.0 (04/03/22 3:49 PM) Invalid Interpretation Code 5.0 - 8.0 AO Auto Urine SS UA Protein 30 mg/dL Invalid Interpretation Code Negativemg/ dL AO Auto Urine SS UA RBC LOADED /HPF Invalid Interpretation Code None Seen/HPF AO Auto Urine SS UA Spec Grav 1.025 (04/03/22 3:49 PM) Invalid Interpretation Code 1.015-1.025 AO Auto Urine SS UA Specimen Type Clean Catch (04/03/22 3:49 PM) Invalid Interpretation Code AO Auto Urine SS UA Squam Epithelial 5-10 /HPF Invalid Interpretation Code None Seen/HPF AO Auto Urine SS UA Urobilinogen 0.2 E.U./dL Invalid Interpretation Code 0.2-1.0E.U. /dL AO Auto Urine SS WBC LM.HPF (Urine sed) [#/Area] 5-10 /HPF Invalid Interpretation Code None Seen/HPF AO Auto Urine SS LABORATORYOrdered By: Aishwarya nai Izaguirre on 04-03-2022 [place] [address].1 m[IU]/mL Invalid Interpretation Code AO ADM SS CBC AND DIFFERENTIALon 12-17 % AUTOMATED IMMATURE GRAN 0.3 % Normal 0.0 - 0.9 [facility] Comment on above: Result Comment: Grace ture Granulocyte Count (IG) includes promyelocytes, myelocytes and metamyelocytes but does not include bands. Percent differential counts (%) should be interpreted in the context of the absolute cell counts (cells/L). Performed By: #### C BCDF #### [address] [address] Basophils (Bld) [#/Vol] 0.03 10*3/uL Normal 0.00 - 0.10 [facility] Comment on above: Performed By: #### C BCDF #### [address] [address] Basophils/100 WBC (Bld) 0.4 % Normal 0.0 - 2.0 [facility] Comment on above: Performed By: #### C BCDF #### [address] [address] Eosinophils (Bld) [#/Vol] 0.19 10*3/uL Normal 0.00 - 0.70 [facility] Comment on above: Performed By: #### C BCDF #### [address] [address] Eosinophils/100 WBC (Bld) 2.7 % Normal 0.0 - 6.0 [facility] Comment on above: Performed By: #### C BCDF #### [address] [address] Erythrocyte distribution width (RBC) [Ratio] 11.9 % Normal 11.5 - 14.5 [facility] Comment on above: Performed By: #### C BCDF #### [address] [address] Hematocrit (Bld) [Volume fraction] 36.2 % Normal 36.0 - 46.0 [facility] Comment on above: Performed By: #### C BCDF #### [address] [address] Hemoglobin (Bld) [Mass/Vol] 13.5 g/dL Normal 12.0 - 16.0 [facility] Comment on above: Performed By: #### C BCDF #### [address] [address] Lymphocytes (Bld) [#/Vol] 2.15 10*3/uL Normal 1.20 - 4.80 [facility] Comment on above: Performed By: #### C BCDF #### [address] [address] Lymphocytes/100 WBC (Bld) 30.8 % Normal 13.0 - 44.0 [facility] Comment on above: Performed By: #### C BCDF #### [address] [address] MCHC (RBC) [Mass/Vol] 37.3 g/dL High 32.0 - 36.0 [facility] Comment on above: Performed By: #### C BCDF #### [address] [address] MCV (RBC) [Entitic vol] 87 fL Normal 80 - 100 [facility] Comment on above: Performed By: #### C BCDF #### [address] [address] Monocytes (Bld) [#/Vol] 0.40 10*3/uL Normal 0.10 - 1.00 [facility] Comment on above: Performed By: #### C BCDF #### [address] [address] Monocytes/100 WBC (Bld) 5.7 % Normal 2.0 - 10.0 [facility] Comment on above: Performed By: #### C BCDF #### [address] [address] Neutrophils (Bld) [#/Vol] 4.18 10*3/uL Normal 1.20 - 7.70 [facility] Comment on above: Performed By: #### C BCDF #### [facility] [address] [place] [address] Neutrophils/100 WBC (Bld) 60.1 % Normal 40.0 - 80.0 [facility] Comment on above: Performed By: #### C BCDF #### [facility] [address] [place] [address] Platelets (Bld) [#/Vol] 273 10*3/uL Normal 150 - 450 [facility] Comment on above: Performed By: #### C BCDF #### [facility] [address] [place] [address] RBC 4.18 x10E12/L Normal 4.00 - 5.20 [facility] Comment on above: Performed By: #### C BCDF #### [facility] [address] [place] [address] WBC (Bld) [#/Vol] 7.0 10*3/uL Normal 4.4 - 11.3 [facility] Comment on above: Performed By: #### C BCDF #### [facility] [address] [place] [address] COMPREHENSIVE PANELon 2020 Albumin [Mass/Vol] 4.6 g/dL Normal 3.4 - 5.0 [facility] Comment on above: Performed By: #### C MP #### [facility] [address] [place] [address] ALP [Catalytic activity/Vol] 64 U/L Normal 33 - 110 [facility] Comment on above: Performed By: #### C MP #### [facility] [address] [place] [address] ALT [Catalytic activity/Vol] 17 U/L Normal 7 - 45 [facility] Comment on above: Result Comment: Mirta ents treated with Sulfasalazine may generate falsely decreased results for ALT. Performed By: #### C MP #### [facility] [address] [place] [address] Anion gap [Moles/Vol] 18 mmol/L Normal 10 - 20 [facility] Comment on above: Performed By: #### C MP #### [facility] [address] [place] [address] AST [Catalytic activity/Vol] 17 U/L Normal 9 - 39 [facility] Comment on above: Performed By: #### C MP #### [facility] [address] [place] [address] Bilirubin [Mass/Vol] 1.9 mg/dL High 0.0 - 1.2 [facility] Comment on above: Performed By: #### C MP #### [facility] [address] [place] [address] Calcium [Mass/Vol] 9.5 mg/dL Normal 8.6 - 10.3 [facility] Comment on above: Performed By: #### C MP #### [address] [address] Chloride [Moles/Vol] 104 mmol/L Normal 98 - 107 [facility] Comment on above: Performed By: #### C MP #### [address] [address] Creatinine [Mass/Vol] 0.69 mg/dL Normal 0.50 - 1.05 [facility] Comment on above: Performed By: #### C MP #### [address] [address] GFR- AM. >60 Normal >60 [facility] Comment on above: Result Comment: CALC ULATIONS OF ESTIMATED GFR ARE PERFORMED USING THE MDRD STUDY EQUATION FOR THE IDMS-TRACEABLE CREATININE METHODS. CLIN CHEM 2007;53:766-72 Performed By: #### C MP #### [address] [address] GFR-NON AM. >60 Normal >60 [facility] Comment on above: Performed By: #### C MP #### [address] [address] Glucose [Mass/Vol] 87 mg/dL Normal 74 - 99 [facility] Comment on above: Performed By: #### C MP #### [address] [address] HCO3 (Bld) [Moles/Vol] 22 mmol/L Normal 21 - 32 [facility] Comment on above: Performed By: #### C MP #### [address] [address] Potassium [Moles/Vol] 3.5 mmol/L Normal 3.5 - 5.3 [facility] Comment on above: Performed By: #### C MP #### [address] [address] Protein [Mass/Vol] 7.0 g/dL Normal 6.4 - 8.2 [facility] Comment on above: Performed By: #### C MP #### [address] [address] Sodium [Moles/Vol] 140 mmol/L Normal 136 - 145 [facility] Comment on above: Performed By: #### C MP #### [address] [address] Urea nitrogen [Mass/Vol] 13 mg/dL Normal 6 - 23 [facility] Comment on above: Performed By: #### C MP #### [address] [address] HCG,URINEon 12-17-2020 Beta HCG ( test) Ql (U) Negative Normal Negative [facility] Comment on above: Performed By: #### H CGU #### [address] [address] MAGNESIUMon 12-17-2020 Magnesium [Mass/Vol] 2.28 mg/dL Normal 1.60 - 2.40 [facility] Comment on above: Performed By: #### M G #### [address] [address] TROPONIN Ion 12-17-2020 Troponin I.cardiac [Mass/Vol] ng/mL Normal 0.00 - 0.03 [facility] Comment on above: Result Comment: LESS THAN 0.04 NG/ML: NEGATIVE REPEAT TESTING IN THREE TO SIX HOURS IF CLINICALLY INDICATED. 0.04 - 0.5 NG/ML: CONSISTENT WITH POSSIBLE CARDIAC DAMAGE AND POSSIBLE INCREASED CLINICAL RISK. SERIAL MEASUREMENTS MAY HELP ASSESS EXTENT OF MYOCARDIAL DAMAGE. >0.5 NG/ML: CONSISTENT WITH CARDIAC DAMAGE, INCREASED CLINICAL RISK AND MYOCARDIAL INFARCTION. SERIAL MEASUREMENTS MAY HELP ASSESS EXTENT OF MYOCARDIAL DAMAGE. . Note: Troponin I testing is performed using different testing methodology at [facility] than at other legacy [facility]. Direct result comparisons should only be made within the same method. Performed By: #### T ROP2 #### [facility] [address] [place] [address] WRIST COMPLT; MIN 3 VIEWSon 12-17-2020 WRIST COMPLT; MIN 3 VIEWS STUDY: Wrist Radiographs; 12/17/2020 2:16 PM INDICATION: Chronic left wrist pain. COMPARISON: None Available. ACCESSION NUMBER(S): [id number] ORDERING CLINICIAN: DEV FLANNERY MD TECHNIQUE: Four views (five images) of the left wrist. FINDINGS: There is no displaced fracture. The alignment is anatomic. No soft tissue abnormality is seen. Mild radiocarpal degenerative changes. IMPRESSION: No acute fracture or malalignment. Mild degenerative changes. Signed by Iesha Clayton Electronically signed by: IESHA CLAYTON MD [facility] Telephone ([facility]) FADUMO HENSLEY ([id number]) 1995 F Date Time Provider Department 06/01/20 [facility] During your visit today, we recorded the following information about you: Yvette Coleman Jg 06/01/2020 11:29 AM Signed Patient calling today. She was under the impression that she was going to have an injection today. There is an order in [email or web address]. The patient was not contacted to schedule it. She is very tearful currently. Patient lives in [place]. Per patient her insurance is not accepted at [facility], and was going to have all her care at the clinic. I changed her appointment today to a zoom visit and will give her the phone number listed in the order for the spine [facility] procedural pool. Yvette Rodriguez, RN, RN 06/01/2020 12:41 PM Signed Will forward information Yvette Rodriguez, RN, RN 06/01/2020 1:[address] Toro pt needs to schedule injection we will see her after injection Allergies As of Date: 06/01/2020 Noted Allergy Reaction ZYRTEC (CETIRIZINE HCL) 05/08/2006 5 - Intolerance Comments: tremors Date Reviewed: 05/21/2020 Reviewed by: Amaya (Dnp.Diamond Sizer) OCTAVIO Rasmussen.ANISHA - Fully Assessed Reason for Visit: Patient Update [1234] Prescriptions as of 06/01/2020 Sig: DEXTROAMPHETAMINE-AMPHE TAMINE* Take 2 capsules by mouth once* TIZANIDINE 4 MG TABLET Take 1 tablet by mouth every * NABUMETONE 500 MG TABLET Take 1 tablet by mouth twice * TIZANIDINE 4 MG TABLET Take 1 tablet by mouth every * GABAPENTIN 300 MG CAPSULE Take 1 capsule by mouth as di* ACETAMINOPHEN 500 MG TABLET Take 2 tablets by mouth every* OMEPRAZOLE 20 MG CAPSULE,ANU* AMITRIPTYLINE 10 MG TABLET Take 1-2 tablets by mouth ilir* ALBUTEROL SULFATE HFA 90 MCG/* Inhale 2 Puffs as instructed * MIRENA 20 MCG/24 HOURS (5 YRS* 1 Each by INTRAUTERINE route * NICOTINE 21MG/24HR-14MG/24HR-* Apply 21 mg as directed once * Patient not taking: Reported on 10/16/2019 Problem List As Of Date 06/01/2020 Noted Resolved Attention deficit disorder [F98.8] 11/27/2007 More... Telangiectasia [I78.1] 01/27/2010 09/18/2019 Rosacea [L71.9] 01/27/2010 09/18/2019 Other acne [L70.8] 01/27/2010 09/18/2019 Depression [F32.9] 05/26/2011 09/18/2019 More... More... Tobacco use in [O99.330] 04/18/2012 10/08/2012 More... History of depression [Z86.59] 04/18/2012 More... History of alcohol abuse [F10.11] 04/18/2012 More... Family history of congenital heart defect [Z82.*04/18/2012 More... More... with adoption planned [Z34.90] 04/22/2012 10/08/2012 More... More... Chlamydia infection [A74.9] 09/23/2013 09/18/2019 Routine gynecological examination [Z01.419] 12/09/2014 09/18/2019 More... Family history of leukemia [Z80.6] 02/04/2015 Vapes nicotine containing substance [Z72.0] 09/07/2015 More... Bulging of intervertebral disc between L4 and L*09/07/2015 Migraine without aura and without status migrai*09/07/2015 Uncomplicated asthma [J45.909] 09/07/2015 09/18/2019 More... Drug abuse [F19.10] 09/10/2015 More... Hepatitis C [B19.20] 2017 More... ASCUS with positive high risk HPV cervical [R87*09/26/2019 More... Intractable low back pain [M54.5] 04/27/2020 Urinary incontinence [R32] 04/27/2020 04/28/2020 Nicotine use disorder, F17.2 [F17.200] 04/27/2020 Encounter Status:Closed by YVETTE RODRIGUEZ on [facility]01/[facility] Telephone ([facility]) FADUMO HENSLEY ([id number]) 1995 F Date Time Provider Department 05/10/20 CURTIS TORO During your visit today, we recorded the following information about you: Michelle Mayer [facility] 05/10/2020 4:36 PM Signed Patient called stating she saw Dr. Toro in the hospital recently and has an upcoming appointment with him. While in the hospital she was prescribed, Nabumetone, Tizanidine, Gabapentin, Amitriptyline and Acetaminophen 1000 mg. She says she needs refills on all five medications, and would like them sent to [facility] in [place]. For questions, call patient at [phone] Yvette Rodriguez RN, RN 05/11/2020 8:55 AM Signed Message will be forwarded for review Yvette Rodriguez RN, RN 05/11/2020 10:10 AM Signed reply from Physician assistant football coach She will need to contact her PCP for refills Call to Juan Daniel with this message Yvette Gregorio 05/11/2020 1:03 PM Signed Patient called today. Relayed information below. Per patient, PCP would not refill the medications and that they should be refilled by spine provider. She can be reached at [phone]. ROSETTE Singh 05/11/2020 1:23 PM Signed Addended by: KHADIJAH MOON PA-C on: 05/11/2020 01:23 PM Modules accepted: Orders Yvette Rodriguez RN, RN 05/11/2020 2:28 PM Signed Called pt again LVM stating that gabapentin AND acetaminophen refills were provided Yvette Gregorio 05/13/2020 4:57 PM Signed Patient calling back. She states that she really needs the nabumetone and the tizanidine for her back. She said that she was given these medications in the hospital and they really help. Wonders if the physician would order them for her. She said that she would also contact her PCP. Patient can be reached at [phone] Yvette Cunningham RN 05/13/2020 5:11 PM Signed Patient calling with request for refills of Tizanidine and Nabumetone be sent to Dr. Bassett.who originally prescribed them 03/18/20. She missed appointment for injection because she was hospitalized due to acute exacerbation of back pain. See note in Epic. Yvette Bassett MD 05/14/2020 8:50 AM Signed The following approved medication requests have been transmitted electronically. Signed Prescriptions Disp Refills gabapentin (NEURONTIN) 300 mg capsule 90 capsule 1 Sig: Take 1 capsule by mouth as directed for 30 days. Titration schedule: take 1 capsule at bedtime x1 week, then BID x1 week, then TID LG: No Authorizing Provider: KHADIJAH MOON (ROSETTE) acetaminophen (TYLENOL) 500 mg tablet 90 tablet 0 Sig: Take 2 tablets by mouth every 8 hours. LG: No Authorizing Provider: KHADIJAH MOON) nabumetone (RELAFEN) 500 mg tablet 60 tablet 3 Sig: Take 1 tablet by mouth twice daily as needed for Pain. LG: No Authorizing Provider: DIANA BASSETT tiZANidine (ZANAFLEX) 4 mg tablet 90 tablet 3 Sig: Take 1 tablet by mouth every 8 hours as needed (muscle spasms). Authorizing Provider: DIANA BASSETT MD Jaudat Mahmood, MD 05/14/2020 8:50 AM Signed Addended by: DIANA BASSETT on: 05/14/2020 08:50 AM Modules accepted: Orders Naheed Sheth CMA 05/14/2020 9:42 AM Signed Patient notified. She stated her understanding. Naheed Sheth CMA May 14, 2020 9:42 AM Allergies As of Date: 05/10/2020 Noted Allergy Reaction ZYRTEC (CETIRIZINE HCL) 05/08/2006 5 - Intolerance Comments: tremors Date Reviewed: 04/30/2020 Reviewed by: Radha Javier - Fully Assessed Reason for Visit: Medication Question [1478] Order(s):gabapentin (NEURONTIN) 300 mg capsuleTake 1 capsule by mouth as directed for 30 days. Titration schedule: take 1 capsule at bedtime x1 week, then BID x1 week, then TIDDisp: 90 capsuleRfl: 1 acetaminophen (TYLENOL) 500 mg tabletTake 2 tablets by mouth every 8 hours.Disp: 90 tabletRfl: 0 nabumetone (RELAFEN) 500 mg tabletTake 1 tablet by mouth twice daily as needed for Pain.Disp: 60 tabletRfl: 3 tiZANidine (ZANAFLEX) 4 mg tabletTake 1 tablet by mouth every 8 hours as needed (muscle spasms).Disp: 90 tabletRfl: 3 Prescriptions as of 05/10/2020 Sig: NABUMETONE 500 MG TABLET Take 1 tablet by mouth twice * TIZANIDINE 4 MG TABLET Take 1 tablet by mouth every * GABAPENTIN 300 MG CAPSULE Take 1 capsule by mouth as di* ACETAMINOPHEN 500 MG TABLET Take 2 tablets by mouth every* METRONIDAZOLE 500 MG TABLET Take 1 tablet by mouth twice * DEXTROAMPHETAMINE-AMPHE TAMINE* Take 1 capsule by mouth once * TIZANIDINE 4 MG TABLET Take 1 tablet by mouth every * OMEPRAZOLE 20 MG CAPSULE,ANU* ALBUTEROL SULFATE HFA 90 MCG/* Inhale 2 Puffs as instructed * MIRENA 20 MCG/24 HOURS (5 YRS* 1 Each by INTRAUTERINE route * NICOTINE 21MG/24HR-14MG/24HR-* Apply 21 mg as directed once * Patient not taking: Reported on 10/16/2019 Problem List As Of Date 05/10/2020 Noted Resolved Attention deficit disorder [F98.8] 11/27/2007 More... Telangiectasia [I78.1] 01/27/2010 09/18/2019 Rosacea [L71.9] 01/27/2010 09/18/2019 Other acne [L70.8] 01/27/2010 09/18/2019 Depression [F32.9] 05/26/2011 09/18/2019 More... More... Tobacco use in [O99.330] 04/18/2012 10/08/2012 More... History of depression [Z86.59] 04/18/2012 More... History of alcohol abuse [F10.11] 04/18/2012 More... Family history of congenital heart defect [Z82.*04/18/2012 More... More... with adoption planned [Z34.90] 04/22/2012 10/08/2012 More... More... Chlamydia infection [A74.9] 09/23/2013 09/18/2019 Routine gynecological examination [Z01.419] 12/09/2014 09/18/2019 More... Family history of leukemia [Z80.6] 02/04/2015 Vapes nicotine containing substance [Z72.0] 09/07/2015 More... Bulging of intervertebral disc between L4 and L*09/07/2015 Migraine without aura and without status migrai*09/07/2015 Uncomplicated asthma [J45.909] 09/07/2015 09/18/2019 More... Drug abuse [F19.10] 09/10/2015 More... Hepatitis C [B19.20] 2017 More... ASCUS with positive high risk HPV cervical [R87*09/26/2019 More... Intractable low back pain [M54.5] 04/27/2020 Urinary incontinence [R32] 04/27/2020 04/28/2020 Nicotine use disorder, F17.2 [F17.200] 04/27/2020 Prescriptions ordered this encounter Disp Refills Start End GABAPENTIN 300 MG CAPSULE 90 c* 1 05/11/2020 06/10/2020 Route: ORAL Sig: Take 1 capsule by mouth as directed for 30 days. Titration schedule: take 1 capsule at bedtime x1 week, then BID x1 week, then TID ACETAMINOPHEN 500 MG TABLET 90 t* 0 05/11/2020 Route: ORAL Sig: Take 2 tablets by mouth every 8 hours. NABUMETONE 500 MG TABLET 60 t* 3 05/14/2020 06/13/2020 Route: ORAL Sig: Take 1 tablet by mouth twice daily as needed for Pain. TIZANIDINE 4 MG TABLET 90 t* 3 05/14/2020 06/13/2020 Route: ORAL Sig: Take 1 tablet by mouth every 8 hours as needed (muscle spasms). Medications Discontinued During This Encounter Prescriptions - gabapentin (NEURONTIN) 300 mg capsule (Discontinued) Take 1 capsule by mouth as directed for 30 days. Titration schedule: take 1 capsule at bedtime x1 week, then BID x1 week, then TID - acetaminophen (TYLENOL) 500 mg tablet (Discontinued) Take 2 tablets by mouth every 8 hours. - nabumetone (RELAFEN) 500 mg tablet (Discontinued) Take 500 mg by mouth twice daily. Encounter Status:Closed by YVETTE RODRIGUEZ on 05/11/20 [facility] 04-28-2020 ALL[facility] HE[facility] HNO ID: [id number] Author: Lucina (RtLaura Friedman Service: Radiology Author Type: Certified First Assistant Type: Allied Health Filed: 04/28/2020 10:28 AM Note Text: Radiology Service Progress Note PATIENT NAME: Fadumo Hensley DATE OF SERVICE: April 28, 2020 TIME: 10:27 AM PATIENT IDENTITY VERIFICATION COMPLETED USING TWO (2) IDENTIFIERS: Name and Date of confirmed by patient verbally and Name and Date of confirmed by identification band. FALL SCREENING: Has the patient had 2 falls in the last year or 1 fall with injury or currently using an Ambulatory Assistive Device (Walker, Cane, Wheelchair, Crutches, etc.)? Inpatient: Screened on floor PATIENT GENDER DATA: Female. status: : No status: NO. PATIENT RELEVANT IMPLANT DATA REVIEWED: Yes RADIOLOGY DEPARTMENT: MR; Exam(s) Completed: Spine: Thoracic spine and Lumbar spine PERIPHERAL IV DATA: Not applicable SIGNED BY: RT Morenita April 28, 2020 10:27 AM Normal [facility] CONSULT PROGobo 04-28-2020 CONSULT PROG HNO ID: [id number] Author: Arcelia Tomlin) Hilda Service: Neurosurgery Author Type: Physician Air Crew Member Type: Consult Progress Note Filed: 04/28/2020 2:42 PM Note Text: PROGRESS NOTE NEUROSURGERY SERVICE DATE: 04/28/2020 SERVICE TIME: 1230 Subjective INTERVAL HPI Patient continues to have pain. 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 No new complaints. Current Facility-Administered Medications Medication Dose Route Frequency - gabapentin 300 mg cap(s) (NEURONTIN) 300 mg ORAL TID - tiZANidine 4 mg tab(s) (ZANAFLEX) 4 mg ORAL q 8 H PRN - sodium chloride 0.9 % (flush) 3-5 mL (BD POSIFLUSH) 3-5 mL INTRAVENOUS q 12 H - docusate sodium 100 mg cap(s) (COLACE) 100 mg ORAL BID - acetaminophen 1,000 mg tab(s) (TYLENOL) 1,000 mg ORAL q 8 H - amitriptyline 10 mg tab(s) (ELAVIL) 10 mg ORAL AT BEDTIME - oxyCODONE IR 5 mg tab(s) (ROXICODONE) 5 mg ORAL q 6 H PRN Objective Alert, Oriented to Person, Place, Time EOMI PERRL Face Symmetric Tongue Midline TWILA VITAL SIGNS 24 HOUR REVIEW: Patient Vitals for the past 24 hrs: BP Temp Temp src Pulse Resp SpO2 04/28/20 0740 111/52 36.4 ?C (97.5 ?F) Oral 85 14 96 % 04/28/20 0410 120/60 36.7 ?C (98.1 ?F) Oral 73 16 95 % 04/28/20 0044 120/70 ? ? 77 ? ? 04/28/20 0032 93/55 36.5 ?C (97.7 ?F) Oral 88 18 98 % 04/27/20 2003 119/61 37.1 ?C (98.8 ?F) Oral 94 16 98 % 04/27/20 1535 123/67 36.9 ?C (98.4 ?F) Oral 90 16 97 % LABS: CBC, Coags, BMP, Mg, Phos Recent Labs 04/27/20 1237 WBC 6.21 HB 12.4 HCT 36.6 PLT 172 NA 137 K 4.1 CHLOR 102 CO2 23 BUN 12 CREAT 0.65* GLUC 104* CA 8.8 DATA: Diagnostic tests reviewed for today's visit: Most recent labs and imaging results. Assessment/Plan Principal Problem: Intractable low back pain POA: Yes MRI lumbar and thoracic personally reviewed. Also discussed with Dr. Toro MRI appears stable Rec outpatient injection at BL L5-S1 TFESI, first available requested then follow up with Dr. Toro (also requested) Patient understands and agrees We will sign off Medication and Non-Pharmacologic VTE Prophylaxis/Anticoagula nts 04/27/20644 vte non-pharmacologic prophylaxis - none indicated (ar,oh) 04/27/20644 activity - mobilize patient (ar,tn) VTE Prophylaxis: VTE prophylaxis appropriate SIGNATURE: Arcelia Stevens PA-C PATIENT NAME: Fadumo Hensley DATE: April 28, 2020 TIME: 2:35 PM PAGER/CONTACT #: [phone] [facility] MRI LUMBAR SPINE WO IVCONon 04-28-2020 MRI LUMBAR SPINE WO IVCON * * *Final Report* * * DATE OF EXAM: Apr 28 2020 10:44AM [facility] 0303 - MRI LUMBAR SPINE WO IVCON / PROCEDURE REASON: L/S-spine stenosis * * * * Physician Interpretation * * * * MRI LUMBAR SPINE WO IVCON, MRI THORACIC SPINE WO IVCON HISTORY: Spinal stenosis, spondylolisthesis, radiculopathy, trauma (accession [id number]), Spinal stenosis, spondylolisthesis, radiculopathy, trauma (accession [id number]) - L/S-spine stenosis (accession [id number]), Back pain, prior surgery, new or progressive sx (accession [id number]) TECHNIQUE: MRI thoracolumbar spine routine protocols without contrast. MQ: MRTLWO_3 COMPARISON: MRI lumbar spine 03/10/2020 RESULT: Counting reference: Craniocervical and lumbosacral junctions. For the purposes of this report, L4-5 is considered the level of the iliac crest and there are 5 lumbar-type vertebrae. Anatomic Variants: None. Localizer images: Incompletely evaluated circumscribed T2 hyperintense lesion measuring 15 mm in maximum dimension in the right adrenal region (series 1, image 9), unchanged. Alignment: Normal thoracic alignment. Slight lumbar levocurvature centered at L3-4. Straightening of lordosis. Mild-moderate intervertebral disc space narrowing at L3-4, and mild narrowing at L4-5 and L5-S1. Cord: The cord is within normal limits of signal intensity and morphology. The conus terminates at L1 with apparent central linear T2/STIR hyperintensity likely reflecting terminal ventricle. Normal course and caliber of the descending cauda equina nerve roots. Bone marrow signal/fracture: No evidence of pathologic marrow infiltration. No evidence of prior fracture. Soft tissues: The prevertebral and paraspinal soft tissues are within normal limits. Canal and foramina: No significant thoracic canal or foraminal stenosis. Suggestion of diffuse relative lumbar canal and foraminal narrowing on a developmental basis due to short pedicles. T12-L1: Patent canal and foramina. L1-L2: Patent canal and foramina. L2-L3: Patent canal and foramina. L3-L4: Shallow disc bulging, mild facet hypertrophy, short pedicles; patent canal, mild bilateral foraminal stenosis. No significant change. L4-L5: Diffuse disc bulging with superimposed broad-based central/left paracentral disc extrusion with slight inferior extension into the subarticular zone, and mild facet hypertrophy, short pedicles; indentation of the ventral thecal sac with asymmetric narrowing of the left subarticular zone and likely contact on the descending left L5 nerve root, mild bilateral foraminal stenosis. No significant change. L5-S1: Diffuse disc bulging with superimposed broad-based shallow left paracentral disc protrusion, mild facet arthropathy, short pedicles; slight indentation of the ventral thecal sac with asymmetric narrowing of the left subarticular zone and likely contact on the descending left S1 nerve root, mild right and severe left foraminal stenosis. No significant change. Sacrum and iliac wings: The visualized sacrum and iliac wings are within normal limits. The presacral soft tissues are normal in appearance. IMPRESSION: Lumbar spondylosis superimposed on developmentally short pedicles, most significant at L4-5 and L5-S1, as detailed. No significant change since 03/10/2020. Unremarkable MRI thoracic spine. Incompletely evaluated 15 mm right adrenal cystic lesion. Thoracic/Lumbar Anatomic Variant: None. L4-5 is considered the level of the iliac crest and assume there are 5 lumbar-type vertebrae. Car Rental Service Attendant: PSCB Transcribe Date/Time: Apr 28 2020 10:48A Dictated by : BAUDILIO BOWERS MD This examination was interpreted and the report reviewed and electronically signed by: BAUDILIO BOWERS MD on Apr 28 2020 10:59AM EST [id number] Normal [facility] MRI THORACIC SPINE WO IVCONo n 04-28-2020 MRI THORACIC SPINE WO IVCON * * *Final Report* * * DATE OF EXAM: Apr 28 2020 10:44AM [facility] 0325 - MRI THORACIC SPINE WO IVCON / PROCEDURE REASON: Back pain, prior surgery, new or progressive sx * * * * Physician Interpretation * * * * MRI LUMBAR SPINE WO IVCON, MRI THORACIC SPINE WO IVCON HISTORY: Spinal stenosis, spondylolisthesis, radiculopathy, trauma (accession [id number]), Spinal stenosis, spondylolisthesis, radiculopathy, trauma (accession [id number]) - L/S-spine stenosis (accession [id number]), Back pain, prior surgery, new or progressive sx (accession [id number]) TECHNIQUE: MRI thoracolumbar spine routine protocols without contrast. MQ: MRTLWO_3 COMPARISON: MRI lumbar spine 03/10/2020 RESULT: Counting reference: Craniocervical and lumbosacral junctions. For the purposes of this report, L4-5 is considered the level of the iliac crest and there are 5 lumbar-type vertebrae. Anatomic Variants: None. Localizer images: Incompletely evaluated circumscribed T2 hyperintense lesion measuring 15 mm in maximum dimension in the right adrenal region (series 1, image 9), unchanged. Alignment: Normal thoracic alignment. Slight lumbar levocurvature centered at L3-4. Straightening of lordosis. Mild-moderate intervertebral disc space narrowing at L3-4, and mild narrowing at L4-5 and L5-S1. Cord: The cord is within normal limits of signal intensity and morphology. The conus terminates at L1 with apparent central linear T2/STIR hyperintensity likely reflecting terminal ventricle. Normal course and caliber of the descending cauda equina nerve roots. Bone marrow signal/fracture: No evidence of pathologic marrow infiltration. No evidence of prior fracture. Soft tissues: The prevertebral and paraspinal soft tissues are within normal limits. Canal and foramina: No significant thoracic canal or foraminal stenosis. Suggestion of diffuse relative lumbar canal and foraminal narrowing on a developmental basis due to short pedicles. T12-L1: Patent canal and foramina. L1-L2: Patent canal and foramina. L2-L3: Patent canal and foramina. L3-L4: Shallow disc bulging, mild facet hypertrophy, short pedicles; patent canal, mild bilateral foraminal stenosis. No significant change. L4-L5: Diffuse disc bulging with superimposed broad-based central/left paracentral disc extrusion with slight inferior extension into the subarticular zone, and mild facet hypertrophy, short pedicles; indentation of the ventral thecal sac with asymmetric narrowing of the left subarticular zone and likely contact on the descending left L5 nerve root, mild bilateral foraminal stenosis. No significant change. L5-S1: Diffuse disc bulging with superimposed broad-based shallow left paracentral disc protrusion, mild facet arthropathy, short pedicles; slight indentation of the ventral thecal sac with asymmetric narrowing of the left subarticular zone and likely contact on the descending left S1 nerve root, mild right and severe left foraminal stenosis. No significant change. Sacrum and iliac wings: The visualized sacrum and iliac wings are within normal limits. The presacral soft tissues are normal in appearance. IMPRESSION: Lumbar spondylosis superimposed on developmentally short pedicles, most significant at L4-5 and L5-S1, as detailed. No significant change since 03/10/2020. Unremarkable MRI thoracic spine. Incompletely evaluated 15 mm right adrenal cystic lesion. Thoracic/Lumbar Anatomic Variant: None. L4-5 is considered the level of the iliac crest and assume there are 5 lumbar-type vertebrae. Car Rental Service Attendant: [facility]ITAL[facility] Ann Transcribe Date/Time: Apr 28 2020 10:48A Dictated by : BAUDILIO BOWERS MD This examination was interpreted and the report reviewed and electronically signed by: BAUDILIO BOWERS MD on Apr 28 2020 10:59AM EST [id number] [facility] NURSING PROGon 04-28-2020 NURSING PROG HNO ID: [id number] Author: Matt DavisRn) BRIT Stark Service: ? Author Type: Registered Nurse Type: Nursing Progress Note Filed: 04/28/2020 4:58 PM Note Text: Nursing Progress Note Patient Name: Fadumo Hensley Patient Location: [id number]/ Daily Note:pt provided with E-script for oxycodone x 15 tablets. Pt instructed to follow-up with pain management for blocks and Dr. Toro. Pt verbalized understanding. Pt denies any questions at this time. Pt provided with a wheelchair to DC area. This note was completed by: Matt Stark RN [facility] NURSING PROG HNO ID: [id number] Author: Matt DavisRn) BRIT Stark Service: ? Author Type: Registered Nurse Type: Nursing Progress Note Filed: 04/28/2020 9:58 AM Note Text: Nursing Progress Note Patient Name: Fadumo Hensley Patient Location: [id number]/ Daily Note:Pt sitting up in bed watching tv. Pt AANDO x3. Pt asking if she can take a shower today. Pt informed of MRI to be performed this AM and attending LIP still needing to see her. Pt able to exit bed and stand and ambulate with walker assistance. Per pt, back pain improved since receiving steroid yesterday. Pt declined any pain medication at this time. [id number] technical publications manager calling regarding pt's request to have thoracic spine imaged as well as lumbar. Maki Olivares, ANISHA notified. Okay to order MRI of thoracic spine as well. Order placed. MRI notified. This note was completed by: Matt Stark RN [facility] NUTRITIONon 04-28-2020 NUTRITION HNO ID: [id number] Author: Cori Esposito Service: Nutrition Therapy Author Type: Registered Dietitian Type: Nutrition Filed: 04/28/2020 2:03 PM Note Text: NUTRITION THERAPY SCREEN NOTE SERVICE DATE: 04/28/2020 SERVICE TIME: 1:59 PM Care Plan: Continue current diet HPI: 24 yo female h/o asthma, depression chronic low back pain present with increasing back pain and urinary incontinence Intake History: 75% per I/O; unable to obtain nutritional history from patient at this time No risk for malnutrition noted; DTR to follow up Current Diet: DIET REGULAR Anthropometrics: Height: 170.2 cm (5' 7) Weight: 78.3 kg (172 lb 11.2 oz) Last Wt Readings: Date: Wt: 04/27/2020 78.3 kg (172 lb 11.2 oz) 04/21/2020 80.3 kg (177 lb) 03/18/2020 74.8 kg (165 lb) 10/16/2019 83.9 kg (185 lb) 10/10/2019 84.4 kg (186 lb) 09/18/2019 84.1 kg (185 lb 6.4 oz) 08/19/2019 83 kg (183 lb) Weight change percentage over time: No significant weight change SIGNATURE: Cori Esposito RD, LD PATIENT NAME: Fadumo Hensley DATE: April 28, 2020 TIME: 1:59 PM PAGER: For further assistance and weekends please page the Group Pager [phone] [facility] PROGRESSon 04-28-2020 PROGRESS HNO ID: [id number] Author: Arcelia Stevens (Pa) Service: ? Author Type: Physician Air Crew Member Type: Progress Notes Filed: 04/28/2020 2:45 PM Note Text: Order for bl L5-S1 TFESI [facility] CASE MGT INIT ASSESon 2019 CASE MGT INIT ASSES HNO ID: [id number] Author: Gina (Rn) BRIT Villarreal Service: ? Author Type: Registered Nurse Type: Care Mgt Initial Assessment Filed: 04/27/2020 1:40 PM Note Text: CARE MANAGEMENT: ASSESSMENT AND DISCHARGE PLAN SERVICE DATE: April 27, 2020 SERVICE TIME: 1:36 PM PRIMARY CARE PHYSICIAN: Amaya Rasmussen DNP.[facility] ADMISSION STATUS: Observation Needs Prior to Discharge: To Be Determined MEDICAL: [facility] MEDICAID Patient/[place] Clerk Stated Goals: To have reduction in pain Health Insurance: [facility] Health Issues Impacting Discharge Plan: Uncontrolled Uncontrolled: Back Pain Last Discharge Date: N/A Is this Within the Past 30 days? Last discharge within 30 days: No Advance Directive: Current Advance Directive: None [employer] Attempted to Assist with AD Completion: Yes Action: Patient Unwilling Health LiteracyHow often do you need to have someone help you when you read instructions, pamphlets, or other written material from your doctor or pharmacy? : 1 - Never How confident are you filling out medical forms by yourself?: 1 - Extremely Baseline Mental Status Prior to this Illness what was the patient's Baseline Mental Status?: Alert AND Oriented Prior to this illness, has anyone described the patient having any of the following behaviors?: Not Applicable Relationship of the informant to the patient:: Self Functional Status: Independent Does Patient Currently Receive Any Community Services or Home Care?: None Equipment Prior to Admission: Walker SOCIAL: Living Arrangements: Home Lives With: Daughter Financial Resources: EmployedPrimary Contact: Extended Emergency Contact Information Primary Emergency Contact: Verna Hensley Mobile Relation: Mother Supportive Patient Contact:: Yes Social Needs Food insecurity Worry: Often true Inability: Sometimes true Resources Needed: No Social Needs Financial resource strain: Hard Social Needs Transportation needs Medical: No Non-medical: No Caregiver AssessmentCaregiver is ready, willing and able to meet the patient's needs as recommended by the inter-professional team:: No Caregiver needed Does the patient have an acute stroke diagnosis, or has the patient had a stroke during this admission?: No Patient's transition needs and plan for meeting these needs: Home with mother's assistance Patient's perception of need for this admission: Pain control Medication Adherance I am convinced of the importance of my prescription medication: 0 - Agree Completely I worry that my prescription medication will do more harm than good to me : 0 - Disagree Mostly I feel financially burdened by my fap-cn-dgownl expenses for my prescription medication:: 0 - Disagree Mostly Risk Score: 0 Patient is categorized as: Low risk < 2 Are you interested in bedside delivery of your medications? Yes Is Patient Psychosocially Complex?: No ASSESSMENT AND PLAN: Medical Needs: Medical Needs: Two or more chronic diseases Psychosocial Needs: Psychosocial Needs: Mental Health Diagnosis Mental Health Information: Depression, Anxiety, ADD FREEDOM OF CHOICE EXPLAINED: [place] of Choice Given: No Reason Not Given: No placements necessary POTENTIAL TRANSITION PLANS Home CM met with pt bedside to discuss transition plan. Patient presented to [facility] with Back pain, has history of asthma, depression, Hep C, migraines. Pleasant and cooperative. IPTA, lives with 7 year old dtr in a 2 story house. Pt states she has been staying with her mother while dealing with the back pain. No outside services in place, has been utilizing a walker when ambulating. She denies need for community resources. Has dc transportation via self (car in ER parking lot). CM/SW will follow and assist as needed should new needs arise. SIGNATURE: Gina Villarreal RN PATIENT NAME: Fadumo Hensley DATE: April 27, 2020 TIME: 1:36 PM PAGER/CONTACT #: [phone] Normal [facility] CBC and Differentialon 04-27 Abs Baso 0.06 k/uL Normal <0.11 [facility] Comment on above: Performed By: #### C BRANDEN CRUZ ####[place] [phone] Abs [place] 0.25 k/uL Normal <0.87 [facility] Comment on above: Performed By: #### C BRANDEN CRUZ ####[place] [phone] Abs Neut 3.91 k/uL Normal 1.45-7.50 [facility] Comment on above: Performed By: #### C BRANDEN CRUZ ####[place] [phone] ANC(includeSEG+BAND) 3.91 k/uL Normal [facility] Comment on above: Performed By: #### C BCDIF, CMP ####[place] [phone] Basophils/100 WBC (Bld) 1.0 % Normal [facility] Comment on above: Performed By: #### C BCDIF, CMP ####[place] [phone] DTYPE Manual Diff Normal [facility] Comment on above: Performed By: #### C BCDIF, CMP ####[place] [phone] Eosinophils (Bld) [#/Vol] 0.31 10*3/uL Normal <0.46 [facility] Comment on above: Performed By: #### C BCDIF, CMP ####[place] [phone] Eosinophils/100 WBC (Bld) 5.0 % Normal [facility] Comment on above: Performed By: #### C BCDIF, CMP ####[place] [phone] Erythrocyte distribution width (RBC) [Ratio] 12.2 % Normal 11.5-15.0 [facility] Comment on above: Performed By: #### C BCDIF, CMP ####[place] [phone] Hematocrit (Bld) [Volume fraction] 36.6 % Normal 36.0-46.0 [facility] Comment on above: Performed By: #### C BCDIF, CMP ####[place] [phone] Hemoglobin (Bld) [Mass/Vol] 12.4 g/dL Normal 11.5-15.5 [facility] Comment on above: Performed By: #### C BCDIF, CMP ####[place] [phone] Lymphocytes (Bld) [#/Vol] 1.55 10*3/uL Normal 1.00-4.00 [facility] Comment on above: Performed By: #### C BCDIF, CMP ####[place] [phone] Lymphocytes/100 WBC (Bld) 25.0 % Normal [facility] Comment on above: Performed By: #### C BCDIF, CMP ####[place] [phone] Lymphocytes/100 WBC (Bld) 2.0 % Normal [facility] Comment on above: Performed By: #### C BCDIF, CMP ####[place] [phone] MCH (RBC) [Entitic mass] 31.2 pG Normal 26.0-34.0 [facility] Comment on above: Performed By: #### C BCDIF, CMP ####[place] [phone] MCHC (RBC) [Mass/Vol] 33.9 g/dL Normal 30.5-36.0 [facility] Comment on above: Performed By: #### C BCJAISONF, CMP ####[place] [phone] MCV (RBC) [Entitic vol] 92.2 fL Normal 80.0-100.0 [facility] Comment on above: Performed By: #### C BCDIF, CMP ####[place] [phone] Monocytes/100 WBC (Bld) 4.0 % Normal [facility] Comment on above: Performed By: #### C BCDIF, CMP ####[place] [phone] Neutrophils/100 WBC (Bld) 63.0 % Normal [facility] Comment on above: Performed By: #### C BCDIF, CMP ####[place] [phone] Platelet mean volume (Bld) [Entitic vol] 9.8 fL Normal 9.0-12.7 [facility] Comment on above: Performed By: #### C NANCY, CMP ####[address] [phone] Platelets (Bld) [#/Vol] 172 10*3/uL Normal 150-400 [facility] Comment on above: Performed By: #### C NANCY, CMP ####[place] [phone] Platelets (Bld) [#/Vol] Platelet estimate adequate Normal [facility] Comment on above: Performed By: #### C NANCY, CMP ####[address] [phone] RBC (Bld) [#/Vol] 3.97 10*6/uL Normal 3.90-5.20 [facility] Comment on above: Performed By: #### C NANCY, CMP ####[address] [phone] Red Cell Morph SEE COMMENT Normal [facility] Comment on above: Result Comment: Unre markable Performed By: #### C NANCY, CMP ####[address] [phone] WBC (Bld) [#/Vol] 6.21 10*3/uL Normal 3.70-11.00 [facility] [place] Comment on above: Performed By: #### C NANCY, CMP ####[address] [phone] CONSULTon 04-27-2020 CONSULT HNO ID: [id number] Author: Curtis Toro Service: Neurosurgery Author Type: Physician Type: Consults Filed: 04/27/2020 5:46 PM Note Text: CONSULT NOTE SERVICE DATE: 04/27/2020 SERVICE TIME: 12:17 PM PHYSICIAN CONSULT (AK,AV,EU,FV,HL,CODY,MM,S P) Consult performed by: Curtis Toro Consult ordered by: Alem Singh RN PRIMARY CARE PHYSICIAN: Amaya Rasmussen DNP.QUANTITATIVE ANALYST MARKETING Subjective Patient with a two month history of low back pain with radiation into L>R leg says she has recently been getting much worse in regards to pain control. She says the pain started in February when she was walking down her hallway and her legs gave out. She was able to get to a point where the pain was tolerable until the past few days. She says she has had episodes of bladder incontinence the past 1-2 days. She says the pain has been getting worse in the middle and low back. She denies any known injury. She also complains of some numbness and tingling in the bilateral legs from time to time. No loss of bowel function. 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 - Juvenile osteochondrosis of lower extremity, excluding foot 2004, resolved - Migraine headache 05/26/2011 - other Sever's Disease, 2006, resolved - Other acne 01/27/2010 - Pain in joint, site unspecified AC joint tear, 2005 - Patient requested diagnostic testing 04/18/2012 04/18/2012 Patient desires early screening in with sequential testing. - Poor support system complicating 04/18/2012 04/18/2012The father of the baby is aware that she is , but does not wish to be involved. Patient states her parents are very supportive. Patient is tearful for some of this visit today due to the father of the baby. She states he has put pressure on her in the past to have an , but she does not wish to do that. Patient was given a brochure on the care center and WIC. - Rosacea 01/27/2010 - Rubella non-immune status 04/22/2012 - Teen 04/22/2012 July 04, 2012 Flu vaccine given - Telangiectasia 01/27/2010 PAST SURGICAL HISTORY Procedure Laterality Date - INSERTION OF IUD 12/02/2013 - MIRENA IUD 2019 - NONE - PAST SURGICAL HISTORY OF December Removal of 4 [place] Teeth FAMILY HISTORY Problem Relation Age of Onset - Heart Father TRIPLE BYPASS SURGERY - Hypertension Father - Diabetes Father - Heart Maternal Grandmother from heart problems - Heart Maternal Grandfather from heart problems - Cancer Maternal Grandfather lung - Hypertension Maternal Grandfather Social History Tobacco Use - Smoking status: Former Smoker Packs/day: 0.50 Years: 0.60 Pack years: 0.30 - Smokeless tobacco: Never Used Substance Use Topics - Alcohol use: Not Currently Frequency: Never Drinks per session: Patient refused Binge frequency: Never - Drug use: No - tizanidine HCl (TIZANIDINE ORAL), Take 4 mg by mouth every 8 hours. , Disp: , Rfl: , 04/26/2020 at Unknown time - nabumetone (RELAFEN) 500 mg tablet, Take 500 mg by mouth twice daily., Disp: , Rfl: , 04/26/2020 at Unknown time - gabapentin (NEURONTIN) 300 mg capsule, Take 1 capsule by mouth as directed for 30 days. Titration schedule: take 1 capsule at bedtime x1 week, then BID x1 week, then TID, Disp: 90 capsule, Rfl: 1, 04/26/2020 at Unknown time - amitriptyline (ELAVIL) 10 mg tablet, Take 1-2 tablets by mouth daily at bedtime., Disp: 30 tablet, Rfl: 1, 04/26/2020 at Unknown time - amphetamine-dextroamphe tamine XR (ADDERALL XR) 30 mg 24 hr capsule, Take 1 capsule by mouth once daily for 30 days., Disp: 30 capsule, Rfl: 0 - albuterol HFA (PROAIR HFA) 90 mcg/actuation inhaler, Inhale 2 Puffs as instructed every 4 hours as needed for Wheezing/Shortness of Breath. Used for seasonal allergies, Disp: 1 Inhaler, Rfl: 2, 04/26/2020 at Unknown time - levonorgestrel (MIRENA) 20 mcg/24 hours (5 yrs) 52 mg IUD, 1 Each by INTRAUTERINE route one time only., Disp: , Rfl: - omeprazole (PRILOSEC) 20 mg capsule, , Disp: , Rfl: - predniSONE (DELTASONE) 10 mg tablet, , Disp: , Rfl: - Nicotine 21-14-7 mg/24 hr ptds, Apply 21 mg as directed once daily. (Patient not taking: Reported on 10/16/2019 ), Disp: 30 Patch, Rfl: 1 Current Facility-Administered Medications Medication Dose Route Frequency - gabapentin 300 mg cap(s) (NEURONTIN) 300 mg ORAL TID - tiZANidine 4 mg tab(s) (ZANAFLEX) 4 mg ORAL q 8 H PRN - sodium chloride 0.9 % (flush) 3-5 mL (BD POSIFLUSH) 3-5 mL INTRAVENOUS q 12 H - docusate sodium 100 mg cap(s) (COLACE) 100 mg ORAL BID - ketorolac 15 mg injection (TORADOL) 15 mg INTRAVENOUS q 6 H - HYDROmorphone 0.5 mg injection (DILAUDID) 0.5 mg INTRAVENOUS q 4 H PRN - acetaminophen 1,000 mg tab(s) (TYLENOL) 1,000 mg ORAL q 8 H - amitriptyline 10 mg tab(s) (ELAVIL) 10 mg ORAL AT BEDTIME - dexamethasone sodium phosphate 4 mg injection (DECADRON) 4 mg INTRAVENOUS q 6 H Allergies As of Date: 04/27/2020 Allergen Noted Reaction ZYRTEC [CETIRIZINE HCL] 05/08/2006 Intolerance Fully Assessed 04/27/2020 COMPLETE REVIEW OF SYSTEMS: Review of Systems Musculoskeletal: Positive for back pain and neck pain. Neurological: Positive for numbness. Negative for dizziness, weakness and headaches. Objective Physical Exam Constitutional: She is oriented to person, place, and time. She appears well-developed and well-nourished. No distress. HENT: Head: Normocephalic and atraumatic. Eyes: Pupils are equal, round, and reactive to light. Conjunctivae and EOM are normal. Neck: Normal range of motion. Pulmonary/Chest: Effort normal. Musculoskeletal: Normal range of motion. Thoracic back: She exhibits no tenderness, no bony tenderness and no swelling. Lumbar back: She exhibits no tenderness, no bony tenderness and no swelling. Neurological: She is alert and oriented to person, place, and time. She has normal strength. GCS eye subscore is 4. GCS verbal subscore is 5. GCS motor subscore is 6. SLR negative Patient Vitals for the past 24 hrs: BP Temp Temp src Pulse Resp SpO2 Height Weight 04/27/20 0738 120/60 36.8 ?C (98.2 ?F) Oral 99 18 95 % ? ? 04/27/20 0504 116/75 36.6 ?C (97.9 ?F) Oral 85 20 95 % ? ? 04/27/20 0500 ? 78.3 kg (172 lb 11.2 oz) 04/27/20 0409 108/78 ? ? 78 20 97 % ? ? 04/27/20 0212 ? 170.2 cm (5' 7) 77.1 kg (170 lb) 04/27/20 0209 122/67 36.9 ?C (98.4 ?F) Oral 87 16 97 % ? ? Body mass index is 27.05 kg/m?. DATA: Diagnostic tests reviewed for today's visit: Most recent labs and imaging results. Reviewed with Dr Toro, no repeat imaging needed at this time. Recommend PT/OT and pain control, no acute surgical intervention. Also recommend outpatient injection, bilateral L5-S1 transforaminal epidural. Please call if symptoms worsen or if there are any questions. SIGNATURE: ROSETTE Singh PATIENT NAME: Fadumo Hensley DATE: April 27, 2020 TIME: 12:16 PM PAGER: [phone] Staff addendum Ms. Hensley is a pleasant 24-year-old female admitted with a history of lower back pain with radiation to the lateral lower extremity. Left leg pain is more than right leg pain. History of few episodes of bladder incontinence for the last few days. No loss of bowel function. MRI lumbar spine done on March 10, 2020 showed decreased disc height at L3 4 and L4 5 level. Mild central disc protrusion at L4 5 level without significant canal stenosis. Central, right paracentral disc protrusion with left foraminal stenosis. Discussed clinical, imaging finding. No acute surgical intervention is required Pain control / pain management consult PT / O`T Outpatient bilateral L5-S1 transforaminal epidural injection Follow up in spine surgery clinic after completion of injection We will sign off Please call us if needed Curtis Toro MD Staff, Neurosurgery [facility] Comp Metabolic Panelon 04-27 Albumin [Mass/Vol] 4.1 g/dL Normal 3.5-5.0 [facility] Comment on above: Performed By: #### C BCDIF, CMP ####[place] [phone] ALP [Catalytic activity/Vol] 65 U/L Normal 34-123 [facility] Comment on above: Performed By: #### C BCDIF, CMP ####[place] [phone] ALT [Catalytic activity/Vol] 36 U/L Normal 0-45 [facility] Comment on above: Performed By: #### C BCDIF, CMP ####[place] [phone] Anion gap [Moles/Vol] 12 mmol/L Normal 9-18 [facility] Comment on above: Performed By: #### C BCDIF, CMP ####[place] [phone] AST [Catalytic activity/Vol] 25 U/L Normal 7-40 [facility] Comment on above: Performed By: #### C BCDIF, CMP ####[place] [phone] Bilirubin [Mass/Vol] 1.1 mg/dL Normal 0.2-1.3 [facility] Comment on above: Performed By: #### C BCDIF, CMP ####[place] [phone] Calcium [Mass/Vol] 8.8 mg/dL Normal 8.5-10.5 [facility] Comment on above: Performed By: #### C BCDIF, CMP ####[place] [phone] Chloride [Moles/Vol] 102 mmol/L Normal 98-110 [facility] Comment on above: Performed By: #### C BCDIF, CMP ####[place] [phone] CO2 [Moles/Vol] 23 mmol/L Normal 23-32 [facility] Comment on above: Performed By: #### C BCDIF, CMP ####[place] [phone] Creatinine [Mass/Vol] 0.65 mg/dL Low 0.70-1.40 [facility] Comment on above: Performed By: #### C BCDIF, CMP ####[place] [phone] eGFR- Amer. >60 Normal >60 [facility] Comment on above: Performed By: #### C BCDIF, CMP ####[place] [phone] GFR/1.73 sq M predicted among non-blacks MDRD (S/P/Bld) [Vol rate/Area] mL/min/{1.73_m2} Normal >60 [facility] Comment on above: Performed By: #### C BCDIF, CMP ####[place] [phone] Glucose [Mass/Vol] 104 mg/dL High 65-100 [facility] Comment on above: Performed By: #### C BCDIF, CMP ####[place] [phone] Potassium [Moles/Vol] 4.1 mmol/L Normal 3.5-5.0 [facility] Comment on above: Performed By: #### C BCDIF, CMP ####[place] [phone] Protein [Mass/Vol] 6.7 g/dL Normal 6.0-8.4 [facility] Comment on above: Performed By: #### C BCDIF, CMP ####[place] [phone] Sodium [Moles/Vol] 137 mmol/L Normal 132-148 [facility] Comment on above: Performed By: #### C BCDIF, CMP ####[address], [place] [phone] Urea nitrogen [Mass/Vol] 12 mg/dL Normal 8-25 [facility] Comment on above: Performed By: #### C BCDIF, CMP ####[address] [phone] Coronavirus 2019on 0 COVID 19 Result F[employer]ER [employer] WORKER Negative Normal Negative for COVID19 (SARS CoV2) by PCR. [facility] Comment on above: Result Comment: This test was developed and its performance characteristics determined by [facility]'s [facility] [place]. This test has been authorized by FDA under an Emergency Use Authorization (EUA). This test has been validated in accordance with the FDA's Guidance Document Policy for Diagnostics Testing in Laboratories Certified to Perform High Complexity Testing under CLIA prior to Emergency use Authorization for Coronavirus Disease 2019 during the Public Health Emergency issued on September 20, 2019. Performed By: #### C OVID #### [place] [phone] [facility] [address] [place], [place] [phone] COVID 19 Source [employer] Nasopharyngeal Swab Normal [facility] Comment on above: Performed By: #### C OVID #### [place] [phone] [place], [place] [phone] ED NOTEon 04-27-2020 ED NOTE HNO ID: [id number] Author: Jack Wall RN Service: ? Author Type: Registered Nurse Type: ED Notes Filed: 04/27/2020 4:11 AM Note Text: Pts covid swab obtained and walked to lab. [facility] ED NOTE HNO ID: [id number] Author: Helio Wall RN Service: ? Author Type: Registered Nurse Type: ED Notes Filed: 04/27/2020 3:28 AM Note Text: Report given to Jack PEREA. [facility] ED NOTE HNO ID: [id number] Author: Helio Wall RN Service: ? Author Type: Registered Nurse Type: ED Notes Filed: 04/27/2020 3:27 AM Note Text: Pt comes to the ED for urinary incontinence. Pt states that she doesn't feel the urge to pee. Pt states that she visited [facility] last week for this complication and they recommended her to go to [place] [facility] for an MRI. Pt states that she has had normal BM. Pt states that she had a herniated disc in February. Pt states that she drove to the hospital today. Normal [facility] ED NOTE HNO ID: [id number] Author: Helio (Rn) BRIT Wall Service: ? Author Type: Registered Nurse Type: ED Notes Filed: 04/27/2020 3:20 AM Note Text: Bladder scanner performed. Pt has 10 mL in bladder after voiding before bladder scanner procedure. Normal [facility] ED PROV NOTEon 04-27-2020 ED PROV NOTE HNO ID: [id number] Author: Cristhian Traylor Jr., MD Service: Emergency Medicine Author Type: Physician Type: ED Provider Notes Filed: 04/27/2020 4:39 AM Note Text: ED Provider Note Patient Name: Fadumo Hensley SERVICE DATE: 04/27/20 History Patient presents with: Back Pain: hx herniated disc requiring admission in Feb, stated increased pain and loss of bowel x2wks, stated unable to see neurosurgery so told to come here, stated seen in [place] [facility] but unable to perform MRI/did rule out UTI 24-year-old female with a past medical history of asthma, depression, chronic low back pain with left sided sciatica presents the ED complaining of increased low back pain over the last 2 weeks. Patient admits to urinating on self for the last two weeks. Patient states that she is able to feel herself urinating. Denies dysuria hematuria. She states that she often has to sit on the toilet and wait for urine to come out. Denies loss of bowel control, recent falls or injuries, numbness and tingling in limbs, saddle anesthesia, weakness in legs. Patient drove to the emergency department today and is able to ambulate. Rates her pain 8 out of 10. She states that she had an appointment at a spine clinic about a week ago. She was instructed to follow-up with a neurosurgeon but has been unable to get an appointment. Patient an MRI done on 02/2020 that showed herniated disc at L4/L5 and L5/L1. History provided by: Patient PAST MEDICAL HISTORY Diagnosis Date - ASCUS with positive high risk HPV cervical 09/26/2019 - Asthma 11/29/2011 - ATTN DEFICIT NONHYPERACT 11/27/2007 - Chest pain 04/29/2010 - Chlamydia infection 09/23/2013 - Depression 05/26/2011 - Depression complicating , antepartum 08/02/2012 08/02/12: zoloft 50mg Daily - Hepatitis C 2017 2018 cured after medication course. - Juvenile osteochondrosis of lower extremity, excluding foot 2004, resolved - Migraine headache 05/26/2011 - other Sever's Disease, 2006, resolved - Other acne 01/27/2010 - Pain in joint, site unspecified AC joint tear, 2005 - Patient requested diagnostic testing 04/18/2012 04/18/2012 Patient desires early screening in with sequential testing. - Poor support system complicating 04/18/2012 04/18/2012The father of the baby is aware that she is , but does not wish to be involved. Patient states her parents are very supportive. Patient is tearful for some of this visit today due to the father of the baby. She states he has put pressure on her in the past to have an , but she does not wish to do that. Patient was given a brochure on the care center and WIC. - Rosacea 01/27/2010 - Rubella non-immune status 04/22/2012 - Teen 04/22/2012 July 04, 2012 Flu vaccine given - Telangiectasia 01/27/2010 PAST SURGICAL HISTORY Procedure Laterality Date - INSERTION OF IUD 12/02/2013 - MIRENA IUD 2019 - NONE - PAST SURGICAL HISTORY OF December Removal of 4 [place] Teeth FAMILY HISTORY Problem Relation Age of Onset - Heart Father TRIPLE BYPASS SURGERY - Hypertension Father - Diabetes Father - Heart Maternal Grandmother from heart problems - Heart Maternal Grandfather from heart problems - Cancer Maternal Grandfather lung - Hypertension Maternal Grandfather Social History Tobacco Use - Smoking status: Former Smoker Packs/day: 0.50 Years: 0.60 Pack years: 0.30 - Smokeless tobacco: Never Used Substance and Sexual Activity - Alcohol use: Not Currently Frequency: Never Drinks per session: Patient refused Binge frequency: Never - Drug use: No - Sexual activity: Yes Partners: Male control/protection: I.U.D. ALLERGIES Allergen Reactions - Zyrtec [Cetirizine * Intolerance tremors Review of Systems Constitutional: Negative for chills and fever. HENT: Negative for congestion. Respiratory: Negative for shortness of breath. Cardiovascular: Negative for chest pain. Gastrointestinal: Negative for abdominal pain, diarrhea, nausea and vomiting. Genitourinary: Positive for difficulty urinating. Negative for dysuria and hematuria. Musculoskeletal: Positive for back pain (low). Negative for arthralgias and neck pain. Skin: Negative for rash. Neurological: Negative for syncope, light-headedness and numbness. Psychiatric/Behavioral: Negative for confusion. Physical Exam BP 108/78 Pulse 78 Temp (Src) 98.4 (Oral) Resp 20 Ht 5' 7 (1.70m) Wt 170 lb (77.1kg) SpO2 97% LMP 11/30/2013 BMI 26.62 kg/(m2). O2 Therapy: Room Air Physical Exam Vitals signs and nursing note reviewed. Exam conducted with a consumer relations specialist present. Constitutional: General: She is awake. She is not in acute distress. Appearance: Normal appearance. She is well-developed. She is not ill-appearing, toxic-appearing or diaphoretic. Comments: Well-appearing female no acute distress sitting up in bed HENT: Head: Normocephalic and atraumatic. Mouth/Throat: Lips: [place]. Mouth: Mucous membranes are moist. Eyes: Extraocular Movements: Extraocular movements intact. Conjunctiva/sclera: Conjunctivae normal. Pupils: Pupils are equal, round, and reactive to light. Neck: Musculoskeletal: Full passive range of motion without pain, normal range of motion and neck supple. Cardiovascular: Rate and Rhythm: Normal rate and regular rhythm. Pulses: Normal pulses. Radial pulses are 2+ on the right side and 2+ on the left side. Posterior tibial pulses are 2+ on the right side and 2+ on the left side. Pulmonary: Effort: Pulmonary effort is normal. Breath sounds: Normal breath sounds and air entry. No stridor or decreased air movement. No decreased breath sounds, wheezing, rhonchi or rales. Comments: Clear to auscultation bilaterally and good aeration throughout all lung fritz. Abdominal: Palpations: Abdomen is soft. Tenderness: There is no abdominal tenderness. There is no right CVA tenderness or left CVA tenderness. Genitourinary: Rectum: Normal anal tone. Musculoskeletal: Right lower leg: No edema. Left lower leg: No edema. Comments: SHIPLEY x 4 Mild tenderness over L4/L5 and L5/S1 with no paraspinal muscle tenderness Skin: General: Skin is warm and dry. Coloration: Skin is not pale. Findings: No rash. Neurological: General: No focal deficit present. Mental Status: She is alert. Sensory: Sensation is intact. Motor: Motor function is intact. No weakness or pronator drift. Deep Tendon Reflexes: Reflex Scores: Achilles reflexes are 2+ on the right side and 2+ on the left side. Comments: No clonus Psychiatric: Attention and Perception: Attention and perception normal. Mood and Affect: Mood and affect normal. Speech: Speech normal. Behavior: Behavior normal. Behavior is cooperative. Diagnostic Testing ED Labs Ordered and Reviewed UA DIP,URINE (ED-POC) - Abnormal; Notable for the following components: Result Value Ref Range HEMOGLOBIN/BLOOD UA (POCT) Small (*) Negative LEUKOCYTES UA (POCT) Trace (*) Negative All other components within normal limits HCG URINE - ED(POC) - Normal URINALYSIS DIPSTICK-ED(POC) URINE CULTURE (AK,AV,EU,FV,HL,CODY,MM,S P) 2019 CORONAVIRUS Procedures ED Course / Clinical Impression Clinical Impressions as of Apr 27 433 Acute exacerbation of chronic low back pain History of herniated intervertebral disc Urinary incontinence, unspecified type MDM / Disposition / Plan Course: Vital signs were reviewed. Triage records were reviewed. Medical records were reviewed. Nursing notes were reviewed and incorporated. Medical Decision Making: Urine dip showed trace leukoesterase. Urine culture was sent. Urine negative. Post void bladder scan administrated 10 mL of urine in bladder Patient had good rectal tone. Patient is not retaining a large amount of urine. Patient unlikely has uti. Kidney stones are unlikely causing patient's pain due to previous MRI findings. Patient had a normal neuro exam in the ED. She remained neurologically intact while in the ED. Cauda equina unlikely however patient would benefit from an MRI. Patient has not been an appointment with a neurosurgeon yet. She would benefit from admission for neurosurgery consult. Patient was given Toradol for pain. Epidural abscess and osteomyelitis unlikely. Her pain is likely due to her known herniated discs. She will likely require surgery in the near future. Vitals remain stable throughout ED visit and patient is stable for the floor at this time. The attending who evaluated and managed this patient was Cristhian Traylor . Plan: The patient was admitted to CDU for further evaluation and treatment of herniated discs and urinary incontinence. Neurosurgery will be on consult Patient understood diagnosis and treatment plan and all questions were answered. Consent: A procedure or transfusion was performed - No Elizabeth Sandy PA-C Disposition The patient was admitted. Admitted to Other (comment) (CDU). Condition at disposition is stable. SIGNATURE: BOBBY Rivera (Pa) 04/27/20 0433 ATTENDING ATTESTATION NOTE: I have personally performed a face to face assessment of the patient and have reviewed the PA/PAID SEARCH MARKETING ANALYST note. My ely findings include: 24-year-old female with a history of herniated disc at L4/L5 and L5/L1. She has had urinary incontinence for the past 2 weeks with increasing low back pain. Patient is ambulatory. No evidence of cauda equina syndrome. Patient be admitted for further evaluation. Cristhian Traylor Jr., MD 04/27/20 0439 Normal [facility] HISTORY PHYSICALon 0 HISTORY PHYSICAL HNO ID: [id number] Author: Alem Singh RN Service: General Internal Medicine Author Type: Nurse Practitioner Type: HANDP Filed: 04/27/2020 6:39 AM Note Text: RAPID OBSERVATION UNIT HISTORY AND PHYSICAL EXAMINATION SERVICE DATE: 04/27/2020 SERVICE TIME: 6:16 AM PRIMARY CARE PHYSICIAN: Amaya Rasmussen DNP.QUANTITATIVE ANALYST MARKETING Subjective CHIEF COMPLAINT: Low back pain, urinary incontinence HPI: This is a 24 year old female pmh of asthma, depression, Hep C, migraines who presents to the ER today with severe back pain. Pain initially began about 5 years ago. 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 Over the past few years she has had very mild back pain until about 6-12 months ago when low back pain became worse. Denies MOA or injury for worsening back pain. States now she is concerned because she has urinary incontinence daily for a few weeks. Denies any other urinary complaints or fever. Denies bowel incontinence. Reports back pain at times radiates to her middle thoracic area which is new. Believes she may be compensating with walking and while working. Reports pain and numbness in BLE, L>R that is daily. Denies extremity weakness. Denies back surgery or procedures. Denies saddle paresthesia. Has had lumbar MRI performed. States she recently saw neurosurgery 04/21/20. Currently pain 03/01. 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 - Juvenile osteochondrosis of lower extremity, excluding foot 2004, resolved - Migraine headache 05/26/2011 - other Sever's Disease, 2006, resolved - Other acne 01/27/2010 - Pain in joint, site unspecified AC joint tear, 2005 - Patient requested diagnostic testing 04/18/2012 04/18/2012 Patient desires early screening in with sequential testing. - Poor support system complicating 04/18/2012 04/18/2012The father of the baby is aware that she is , but does not wish to be involved. Patient states her parents are very supportive. Patient is tearful for some of this visit today due to the father of the baby. She states he has put pressure on her in the past to have an , but she does not wish to do that. Patient was given a brochure on the care center and WIC. - Rosacea 01/27/2010 - Rubella non-immune status 04/22/2012 - Teen 04/22/2012 July 04, 2012 Flu vaccine given - Telangiectasia 01/27/2010 PAST SURGICAL HISTORY Procedure Laterality Date - INSERTION OF IUD 12/02/2013 - MIRENA IUD 2019 - NONE - PAST SURGICAL HISTORY OF December Removal of 4 [place] Teeth FAMILY HISTORY Problem Relation Age of Onset - Heart Father TRIPLE BYPASS SURGERY - Hypertension Father - Diabetes Father - Heart Maternal Grandmother from heart problems - Heart Maternal Grandfather from heart problems - Cancer Maternal Grandfather lung - Hypertension Maternal Grandfather Social History Tobacco Use - Smoking status: Former Smoker Packs/day: 0.50 Years: 0.60 Pack years: 0.30 - Smokeless tobacco: Never Used Substance Use Topics - Alcohol use: Not Currently Frequency: Never Drinks per session: Patient refused Binge frequency: Never - Drug use: No - tizanidine HCl (TIZANIDINE ORAL), Take 4 mg by mouth every 8 hours. , Disp: , Rfl: , 04/26/2020 at Unknown time - nabumetone (RELAFEN) 500 mg tablet, Take 500 mg by mouth twice daily., Disp: , Rfl: , 04/26/2020 at Unknown time - gabapentin (NEURONTIN) 300 mg capsule, Take 1 capsule by mouth as directed for 30 days. Titration schedule: take 1 capsule at bedtime x1 week, then BID x1 week, then TID, Disp: 90 capsule, Rfl: 1, 04/26/2020 at Unknown time - amitriptyline (ELAVIL) 10 mg tablet, Take 1-2 tablets by mouth daily at bedtime., Disp: 30 tablet, Rfl: 1, 04/26/2020 at Unknown time - amphetamine-dextroamphe tamine XR (ADDERALL XR) 30 mg 24 hr capsule, Take 1 capsule by mouth once daily for 30 days., Disp: 30 capsule, Rfl: 0 - albuterol HFA (PROAIR HFA) 90 mcg/actuation inhaler, Inhale 2 Puffs as instructed every 4 hours as needed for Wheezing/Shortness of Breath. Used for seasonal allergies, Disp: 1 Inhaler, Rfl: 2, 04/26/2020 at Unknown time - levonorgestrel (MIRENA) 20 mcg/24 hours (5 yrs) 52 mg IUD, 1 Each by INTRAUTERINE route one time only., Disp: , Rfl: - omeprazole (PRILOSEC) 20 mg capsule, , Disp: , Rfl: - predniSONE (DELTASONE) 10 mg tablet, , Disp: , Rfl: - Nicotine 21-14-7 mg/24 hr ptds, Apply 21 mg as directed once daily. (Patient not taking: Reported on 10/16/2019 ), Disp: 30 Patch, Rfl: 1 ALLERGIES Allergen Reactions - Zyrtec [Cetirizine * Intolerance tremors COMPLETE REVIEW OF SYSTEMS: GENERAL: Denies malaise, fevers, chills HEENT: Denies frequent or significant headaches RESPIRATORY: Denies cough, hemoptysis, wheezing or shortness of breath CARDIOVASCULAR: Denies chest pain, pressure, palpitations, leg swelling GI: Denies nausea, vomiting, diarrhea, abdominal pain, epigastric pain : Denies dysuria, frequency, hematuria, odor, +incontinence MUSCULOSKELETAL: +back pain +thoracic pain NEURO: Denies headaches, syncope, paralysis, weakness in extremities +b/l leg paresthesia Objective PHYSICAL EXAM: Physical Exam Performed: GENERAL: Alert, cooperative, pleasant, in no acute distress SKIN: Skin color, texture, turgor grossly normal. HEAD/SINUSES: Normocephalic, atraumatic EYES: PERRLA, EOMI. Anicteric sclera EARS: External ears normal NECK: No jugulovenous distention, Supple. BACK: Back symmetric, Normal curvature, No CVAT. LUNGS: Normal respiratory rate and rhythm, Lungs clear to auscultation, No wheezing, rales or rhonchi CARDIAC: Regular rate and rhythm, without murmur ABDOMEN: Soft, non-tender, non-distended, BS normal EXTREMITIES: No edema MUSCULOSKELETAL: Limited exam d/t severe pain. Patient refuses to sit up in bed or stand d/t pain. Able to roll over to side with moderate difficulty. Pain upon palpation of thoracic and lumbar paraspinal muscles. Skin intact. No sign of injury. No erythema or swelling. +SLE L>R. Sensation equal and intact BLE. NEURO: Sensation grossly intact, Cranial nerves II-XII intact, alert and oriented x 3. Negative for abnormal speech. Muscle strength even b/l. PULSES: 2+ radial, 2+ dorsalis pedis BP 116/75 Pulse 85 Temp (Src) 97.9 (Oral) Resp 20 Ht 5' 7 (1.70m) Wt 172 lb 11.2 oz (78.3kg) SpO2 95% LMP 11/30/2013 BMI 27.04 kg/(m2). O2 Therapy: Room Air DATA: Diagnostic tests reviewed for today's visit: Most recent labs and imaging results. Assessment/Plan Principal Problem: Intractable low back pain POA: Yes Bulging of invertebral disc between L4 and L5 and L5 and S1 Urinary incontinence POA: Yes Assessment AND Plan: Presents to ER with severe low back pain. Has existed for about 5 years with worsening in last 6-12 months. Now with urinary incontinence which is new and daily for a few weeks. Denies any other urinary complaints. Denies bowel incontinence Severe low back pain with radiation into thoracic area and lower extremities Paresthesia BLE. Denies saddle paresthesia. Denies extremity weakness. UA: not significant for UTI Currently pain 8/10. Emotional and crying when talking about her back pain. 03/09/20 MRI LUMBAR SPINE: Moderate size midline and left para midline disc herniation at L4-5 and L5-S1 impinging on the left L5 and left S1 nerve roots respectively Monitor in CDU Neurosurgery consult Pain control Covid 19 pending results Resolved Problems: * No resolved hospital problems. * Medication and Non-Pharmacologic VTE Prophylaxis/Anticoagula nts VTE Prophylaxis: VTE prophylaxis appropriate SIGNATURE: Alem Singh APRN.CNP PATIENT NAME: Fadumo Hensley DATE: April 27, 2020 TIME: 6:16 AM PAGER/CONTACT #: [facility] NURSING PROGon 04-27-2020 NURSING PROG HNO ID: [id number] Author: Matt (Rn) BRIT Bunn Service: Nursing Author Type: Registered Nurse Type: Nursing Progress Note Filed: 04/27/2020 5:58 PM Note Text: Nursing Progress Note Patient Name: Fadumo Hensley Patient Location: [place] [address] [address] Daily Note: 0715: Received PT handoff from outgoing nurse. 0735: Back pain improved, still numbness and tingling to BLE. 0807: AANDO x 3, pleasant and cooperative.VSS; Afebrile. Meds given as ordered, pills whole with water (see MAR). Continues to C/O low back pain to bilateral legs with numbness and tingling worse of left. PT states pain has improved since Dilscotid, rates pain 5/10. PT states she has urinary incontinence for the last few weeks. If she can maintain a frequent targeted toileting schedule she can avoid episodes of incontinence otherwise It just comes out. Denies incontinence of bowel. PT up independently, steady gait. PT up with 1 assist, gait unsteady. Safety maintained at this time, call light and personal belongings in reach, bed locked and lowered. PT states no other needs at this time. Will continue to monitor. 1000: PT transferred to room 531 d/t inability to get rest in previous room d/t activity of other PT. PT states no other needs at this time. Will continue to monitor. 1109: C/O increased back pain, shooting to bilateral legs with numbness, tingling and burning. Prn Dilaudid given as ordered. PT states no other needs at this time. Will continue to monitor. 1205: Pain only slight improved, still sharp and shooting. Prn Zanaflex and Gabapentin given. Spoke to FIBER GLASS WORKER, Decadron ordered, verbal order to hold until STAT labs are drawn. Will continue to monitor. 1244: Back pain improved to 6/10. IV Decadron given as ordered. PT states no other needs at this time. Will continue to monitor. 1620: Toradol given for continued back pain. 1749: IV Decadron and PO Oxycodone for continued shooting back pain, numbness and tingling in bilateral legs. PT states no other needs at this time. Will continue to monitor. This note was completed by: Matt Bunn RN [facility] NURSING PROG HNO ID: [id number] Author: Morenita (Rn) BRIT Greenfield Service: Nursing Author Type: Registered Nurse Type: Nursing Progress Note Filed: 04/27/2020 7:09 AM Note Text: Nursing Progress Note Patient Name: Fadumo Hensley Patient Location: [id number] Transfer Note: Patient transferred into room/unit 532/1in stable condition. Actions taken: Patient belongings with patient.Pt admitted with Back pain, Numbness BLE AND urinary incontinence. Pt received IM Toradol but continues to c/o 03/01 back pain. 0654 Hrs- Pt medicated with 1 mg IV Dilaudid . Pt calls apropriately for assistance. Would monitor. This note was completed by: Morenita Greenfield RN [facility] PLAN OF CAREon 04-27-2020 PLAN OF CARE HNO ID: [id number] Author: Gela Matias (Anisha) Wood Service: ? Author Type: Nurse Practitioner Type: Plan of Care Filed: 04/27/2020 6:47 PM Note Text: ROU Plan of Care: Back pain Disc Herniation L4-5, L5-S1 Urinary Incontinence Evaluated by neurosurgery, no plan for additional imaging or surgery at this time Good rectal tone in ED, no incontinence reported since arrival Urinalysis not suggestive of infection Labs added - no leukocytosis - Scheduled toradol, tylenol, gabapentin, elavil - PRN zanaflex - Transition to oral opiate for breakthrough only - Add decadron IV x 24 hours - NS service recommends outpatient injection, ?arrange appointment prior to DC Gela Muir APRN.CNP 04/27/2020 2:20 PM ADDENDUM: KIRIT Green - will order MRI and he will interpret. Plan for outpatient injections if unchanged. Gela Muir APRN.ANISHA 04/27/2020 6:47 PM [facility] Urine Cultureon 04-27-2020 Bacteria identified Cx Nom (U) Sp. Request/Comment: - Specimen received in preservative Culture Result - 10,000 - <50,000 CFU/ml Normal urogenital jojo [facility] Comment on above: Performed By: #### U RCUL ####[facility] [place], [place] [id number] [place], [place] [phone] Vital Signs Date Time Vital Sign Value Performing Clinician Facility 04-21-2025 16:58-0400 Diastolic blood pressure 71 mm[Hg] Thanh Marrero DO Work Phone: [facility] 04-21-2025 16:58-0400 Heart rate 90 /min Thanh Marrero DO Work Phone: [facility] 04-21-2025 16:58-0400 Systolic blood pressure 103 mm[Hg] Thanh Marrero DO Work Phone: [facility] 04-21-2025 16:31-0400 Body height 170.2 cm Thanh Marrero DO Work Phone: [facility] 04-21-2025 16:31-0400 Body mass index (BMI) [Ratio] 28.19 kg/m2 Thanh Marrero DO Work Phone: [facility] 04-21-2025 16:31-0400 Body temperature 98.4 [degF] Thanh Marrero DO Work Phone: [facility] 04-21-2025 16:31-0400 Body weight 81.65 kg Thanh Marrero DO Work Phone: [facility] 04-21-2025 16:31-0400 Respiratory rate 18 /min Thanh Marrero DO Work Phone: [facility] 04-21-2025 16:31-0400 SaO2% (BldA) [Mass fraction] 99 % Thanh Marrero DO Work Phone: [facility] 03-26-2025 15:24-0400 Body mass index (BMI) [Ratio] 29.7 kg/m2 Carmelita Millan MD Work Phone: [facility] 03-26-2025 15:24-0400 Body weight 83.46 kg Carmelita Millan MD Work Phone: [facility] 03-26-2025 15:24-0400 Diastolic blood pressure 64 mm[Hg] Carmelita Millan MD Work Phone: [facility] 03-26-2025 15:24-0400 Systolic blood pressure 108 mm[Hg] Carmelita Millan MD Work Phone: [facility] 02-11-2025 01:52-0400 Diastolic blood pressure 76 mm[Hg] Rosanna Ruiz DO Work Phone: [facility] 02-11-2025 01:52-0400 Heart rate 81 /min Rosanna Ruiz DO Work Phone: [facility] 02-11-2025 01:52-0400 Respiratory rate 16 /min Rosanna Ruiz DO Work Phone: [facility] 02-11-2025 01:52-0400 SaO2% (BldA) [Mass fraction] 98 % Rosanna Ruiz DO Work Phone: [facility] 02-11-2025 01:52-0400 Systolic blood pressure 120 mm[Hg] Rosanna Ruiz DO Work Phone: [facility] 02-10-2025 23:55-0400 Body height 170.2 cm Rosanna Ruiz DO Work Phone: [phone] [place] [address] 02-10-2025 23:55-0400 Body mass index (BMI) [Ratio] 28.19 kg/m2 Rosanna Ruiz DO Work Phone: [facility] 02-10-2025 23:55-0400 Body temperature 97.2 [degF] Rosanna Ruiz DO Work Phone: [facility] 02-10-2025 23:55-0400 Body weight 81.65 kg Rosanna Ruiz DO Work Phone: [facility] 01-29-2025 10:21-0400 Body mass index (BMI) [Ratio] 28.57 kg/m2 Carmelita Millan MD Work Phone: [facility] 01-29-2025 10:21-0400 Body weight 80.29 kg Carmelita Millan MD Work Phone: [facility] 01-29-2025 10:21-0400 Diastolic blood pressure 70 mm[Hg] Carmelita Millan MD Work Phone: [facility] 01-29-2025 10:21-0400 Systolic blood pressure 104 mm[Hg] Carmelita Millan MD Work Phone: [facility] 11-18-2024 23:54-0400 Diastolic blood pressure 75 mm[Hg] Honorio Fisher DO Work Phone: [facility] 11-18-2024 23:54-0400 Heart rate 95 /min Honorio Fisher DO Work Phone: [facility] 11-18-2024 23:54-0400 Respiratory rate 20 /min Honorio Fisher DO Work Phone: [facility] 11-18-2024 23:54-0400 SaO2% (BldA) [Mass fraction] 100 % Honorio Fisher DO Work Phone: [facility] 11-18-2024 23:54-0400 Systolic blood pressure 139 mm[Hg] Honorio Fisher DO Work Phone: [facility] 11-18-2024 22:16-0400 Body height 167.6 cm Honorio Fisher DO Work Phone: [facility] 11-18-2024 22:16-0400 Body mass index (BMI) [Ratio] 28.41 kg/m2 Honorio Fisher DO Work Phone: [facility] 11-18-2024 22:16-0400 Body temperature 97.81 [degF] Honorio Fisher DO Work Phone: [facility] 11-18-2024 22:16-0400 Body weight 79.83 kg Honorio Fisher DO Work Phone: [facility] 09-05-2024 21:26-0500 Diastolic blood pressure 78 mm[Hg] Keaton Tracy MD Work Phone: [facility] 09-05-2024 21:26-0500 Heart rate 76 /min Keaton Tracy MD Work Phone: [facility] 09-05-2024 21:26-0500 Respiratory rate 16 /min Keaton Tracy MD Work Phone: [facility] 09-05-2024 21:26-0500 SaO2% (BldA) [Mass fraction] 100 % Keaton Tracy MD Work Phone: [facility] 09-05-2024 21:26-0500 Systolic blood pressure 118 mm[Hg] Keaton Tracy MD Work Phone: [facility] 09-05-2024 19:28-0500 Body height 167.6 cm Keaton Tracy MD Work Phone: [facility] 09-05-2024 19:28-0500 Body mass index (BMI) [Ratio] 29.05 kg/m2 Keaton Tracy MD Work Phone: [facility] 09-05-2024 19:28-0500 Body temperature 97.3 [degF] Keaton Tracy MD Work Phone: [facility] 09-05-2024 19:28-0500 Body weight 81.65 kg Keaton Tracy MD Work Phone: [facility] 06-24-2024 15:30-0500 Body mass index (BMI) [Ratio] 30.99 kg/m2 Carmelita Millan MD Work Phone: [facility] 06-24-2024 15:30-0500 Body weight 87.09 kg Carmelita Millan MD Work Phone: [facility] 06-24-2024 15:30-0500 Diastolic blood pressure 70 mm[Hg] Carmelita Millan MD Work Phone: [facility] 06-24-2024 15:30-0500 Systolic blood pressure 106 mm[Hg] Carmelita Millan MD Work Phone: [facility] 05-27-2024 12:47-0500 Body mass index (BMI) [Ratio] 30.6 kg/m2 Maude Bailey APRN.QUANTITATIVE ANALYST MARKETING Work Phone: [facility] 05-27-2024 12:47-0500 Body temperature 97.39 [degF] Maude Bailey APRN.QUANTITATIVE ANALYST MARKETING Work Phone: [facility] 05-27-2024 12:47-0500 Body weight 86 kg Maude Bailey FONDANT COOKER.QUANTITATIVE ANALYST MARKETING Work Phone: [facility] 05-27-2024 12:47-0500 Diastolic blood pressure 74 mm[Hg] Maude Bailey FONDANT COOKER.QUANTITATIVE ANALYST MARKETING Work Phone: [facility] 05-27-2024 12:47-0500 Heart rate 105 /min Maude Bailey FONDANT COOKER.QUANTITATIVE ANALYST MARKETING Work Phone: [facility] 05-27-2024 12:47-0500 Respiratory rate 18 /min Maude Bailey FONDANT COOKER.QUANTITATIVE ANALYST MARKETING Work Phone: [facility] 05-27-2024 12:47-0500 SaO2% (BldA) [Mass fraction] 98 % Maude Bailey [employer].QUANTITATIVE ANALYST MARKETING Work Phone: [facility] 05-27-2024 12:47-0500 Systolic blood pressure 108 mm[Hg] Maude Bailey [employer].QUANTITATIVE ANALYST MARKETING Work Phone: [facility] 05-19-2024 15:06-0400 Diastolic blood pressure 68 mm[Hg] Angela [employer].QUANTITATIVE ANALYST MARKETING Work Phone: [facility] Comment on above: after Liletta removal 05-19-2024 15:06-0400 Systolic blood pressure 122 mm[Hg] Angela [employer].QUANTITATIVE ANALYST MARKETING Work Phone: [facility] Comment on above: after Liletta removal 05-19-2024 14:44-0400 Body mass index (BMI) [Ratio] 30.99 kg/m2 Angela [employer].QUANTITATIVE ANALYST MARKETING Work Phone: [facility] 05-19-2024 14:44-0400 Body weight 87.09 kg Angela [employer].QUANTITATIVE ANALYST MARKETING Work Phone: [facility] 05-16-2024 12:31-0400 Body mass index (BMI) [Ratio] 30.67 kg/m2 Keaton Tracy MD Work Phone: [facility] 05-16-2024 12:31-0400 Body weight 86.18 kg Keaton Tracy MD Work Phone: [facility] 04-15-2024 23:44-0400 Body temperature 98.71 [degF] [facility] 04-15-2024 23:44-0400 Diastolic blood pressure 79 mm[Hg] [facility] 04-15-2024 23:44-0400 Heart rate 102 /min [facility] 04-15-2024 23:44-0400 Respiratory rate 18 /min [facility] 04-15-2024 23:44-0400 SaO2% (BldA) [Mass fraction] 96 % [facility] 04-15-2024 23:44-0400 Systolic blood pressure 121 mm[Hg] [facility] 04-15-2024 17:14-0400 Diastolic blood pressure 85 mm[Hg] Keaton Tracy MD Work Phone: [facility] 04-15-2024 17:14-0400 Heart rate 83 /min Keaton Tracy MD Work Phone: [facility] 04-15-2024 17:14-0400 Respiratory rate 18 /min Keaton Tracy MD Work Phone: [facility] 04-15-2024 17:14-0400 SaO2% (BldA) [Mass fraction] 96 % Keaton Tracy MD Work Phone: [facility] 04-15-2024 17:14-0400 Systolic blood pressure 124 mm[Hg] Keaton Tracy MD Work Phone: [facility] 04-15-2024 12:52-0400 Body height 170.2 cm Keaton Tracy MD Work Phone: [facility] 04-15-2024 12:52-0400 Body mass index (BMI) [Ratio] 28.19 kg/m2 Keaton Tracy MD Work Phone: [facility] 04-15-2024 12:52-0400 Body temperature 97.39 [degF] Keaton Tracy MD Work Phone: [facility] 04-15-2024 12:52-0400 Body weight 81.65 kg Keaton Tracy MD Work Phone: [facility] 04-10-2024 23:25-0400 Blood Pressure Location NIDAL CHOUJAA DO [facility] 04-10-2024 23:25-0400 Blood Pressure Method NIDAL CHOUJAA DO [facility] 04-10-2024 23:25-0400 Diastolic Blood Pressure Non-Invasive 65 mm[Hg] NIDAL CHOUJAA DO [facility] 04-10-2024 23:25-0400 Heart rate 85 /min NIDAL CHOUJAA DO [facility] 04-10-2024 23:25-0400 Respiratory rate 20 /min NIDAL CHOUJAA DO [facility] 04-10-2024 23:25-0400 Systolic Blood Pressure Non-Invasive 108 mm[Hg] NIDAL CHOUJAA DO [facility] 04-10-2024 22:23-0400 Heart rate 87 /min NIDAL CHOUJAA DO [facility] 04-10-2024 22:23-0400 Reason For Taking VItal Signs NIDAL CHOUJAA DO [facility] 04-10-2024 22:23-0400 Respiratory rate 18 /min NIDAL CHOUJAA DO [facility] 04-10-2024 21:22-0400 Heart rate 79 /min NIDAL CHOUJAA DO [facility] 04-10-2024 21:22-0400 Reason For Taking VItal Signs NIDAL CHOUJAA DO [facility] 04-10-2024 21:22-0400 Respiratory rate 18 /min NIDAL CHOUJAA DO [facility] 04-10-2024 20:18-0400 Blood Pressure Location NIDAL CHOUJAA DO [facility] 04-10-2024 20:18-0400 Blood Pressure Method NIDAL CHOUJAA DO [facility] 04-10-2024 20:18-0400 Body height 170.2 cm NIDAL CHOUJAA DO [facility] 04-10-2024 20:18-0400 Body temperature 100.22 [degF] NIDAL CHOUJAA DO [facility] 04-10-2024 20:18-0400 Body weight 82 kg NIDAL CHOUJAA DO [facility] 04-10-2024 20:18-0400 Diastolic Blood Pressure Non-Invasive 81 mm[Hg] NIDAL CHOUJAA DO [facility] 04-10-2024 20:18-0400 Heart rate 98 /min NIDAL CHOUJAA DO [facility] 04-10-2024 20:18-0400 Systolic Blood Pressure Non-Invasive 114 mm[Hg] NIDAL CHOUJAA DO [facility] 04-10-2024 19:17-0400 Body mass index (BMI) [Ratio] 29.53 kg/m2 [facility] [employer].QUANTITATIVE ANALYST MARKETING Work Phone: [facility] 04-10-2024 19:17-0400 Body weight 83 kg Venkata Mogurdeepw [employer].QUANTITATIVE ANALYST MARKETING Work Phone: [facility] 03-24-2024 22:17-0400 Diastolic Blood Pressure Non-Invasive 80 mm[Hg] VERO HEATH MD [facility] 03-24-2024 22:17-0400 Heart rate 82 /min VERO HEATH MD [facility] 03-24-2024 22:17-0400 Respiratory rate 16 /min VERO HEATH MD [facility] 03-24-2024 22:17-0400 Systolic Blood Pressure Non-Invasive 116 mm[Hg] VERO HEATH MD [facility] 03-24-2024 20:14-0400 Body temperature 98.06 [degF] VERO HEATH MD [facility] 03-24-2024 20:14-0400 Diastolic Blood Pressure Non-Invasive 80 mm[Hg] VERO HEATH MD [facility] 03-24-2024 20:14-0400 Heart rate 82 /min VERO HEATH MD [facility] 03-24-2024 20:14-0400 Respiratory rate 16 /min VERO HEATH MD [facility] 03-24-2024 20:14-0400 Systolic Blood Pressure Non-Invasive 121 mm[Hg] VERO HEATH MD [facility] 03-16-2024 10:33-0400 Blood Pressure Cuff Size JUAN ELLIS MD [facility] 03-16-2024 10:33-0400 Blood Pressure Location JUAN ELLIS MD [facility] 03-16-2024 10:33-0400 Blood Pressure Method JUAN ELLIS MD [facility] 03-16-2024 10:33-0400 Body temperature 98.24 [degF] JUAN ELLIS MD [facility] 03-16-2024 10:33-0400 Diastolic Blood Pressure Non-Invasive 66 mm[Hg] JUAN ELLIS MD [facility] 03-16-2024 10:33-0400 Heart rate 65 /min JUAN ELLIS MD [facility] 03-16-2024 10:33-0400 Reason For Taking VItal Signs JUAN ELLIS MD [facility] 03-16-2024 10:33-0400 Respiratory rate 18 /min JUAN ELLIS MD [facility] 03-16-2024 10:33-0400 Systolic Blood Pressure Non-Invasive 97 mm[Hg] JUAN ELLIS MD [facility] 03-16-2024 06:40-0400 Body temperature 98.42 [degF] JUAN ELLIS MD [facility] 03-16-2024 06:40-0400 Diastolic Blood Pressure Non-Invasive 55 mm[Hg] JUAN ELLIS MD [facility] 03-16-2024 06:40-0400 Heart rate 57 /min JUAN ELLIS MD [facility] 03-16-2024 06:40-0400 Reason For Taking VItal Signs JUAN ELLIS MD [facility] 03-16-2024 06:40-0400 Respiratory rate 16 /min JUAN ELLIS MD [facility] 03-16-2024 06:40-0400 Systolic Blood Pressure Non-Invasive 96 mm[Hg] JUAN ELLIS MD [facility] 03-16-2024 02:47-0400 Blood Pressure Location JUAN ELLIS MD [facility] 03-16-2024 02:47-0400 Blood Pressure Method JUAN ELLIS MD [facility] 03-16-2024 02:47-0400 Body temperature 98.24 [degF] JUAN ELLIS MD [facility] 03-16-2024 02:47-0400 Diastolic Blood Pressure Non-Invasive 64 mm[Hg] JUAN ELLIS MD [facility] 03-16-2024 02:47-0400 Heart rate 58 /min JUAN ELLIS MD [facility] 03-16-2024 02:47-0400 Reason For Taking VItal Signs JUAN ELLIS MD [facility] 03-16-2024 02:47-0400 Respiratory rate 20 /min JUAN ELLIS MD [facility] 03-16-2024 02:47-0400 Systolic Blood Pressure Non-Invasive 106 mm[Hg] JUAN ELLIS MD [facility] 03-15-2024 22:43-0400 Blood Pressure Location JUAN ELLIS MD [facility] 03-15-2024 22:43-0400 Blood Pressure Method JUAN ELLIS MD [facility] 03-15-2024 13:22-0400 Heart rate 82 /min JUAN ELLIS MD [facility] 03-15-2024 13:22-0400 Mean blood pressure 80 mm[Hg] JUAN ELLIS MD [facility] 03-15-2024 13:12-0400 Heart rate 96 /min JUAN ELLIS MD [facility] 03-15-2024 12:42-0400 Body temperature 97.7 [degF] JUAN ELLIS MD [facility] 03-15-2024 12:42-0400 Heart rate 93 /min JUAN ELLIS MD [facility] 03-15-2024 12:42-0400 Mean blood pressure 81 mm[Hg] JUAN ELLIS MD [facility] 03-15-2024 12:27-0400 Mean blood pressure 84 mm[Hg] JUAN ELLIS MD [facility] 03-15-2024 11:46-0400 Body temperature 97.88 [degF] JUAN ELLIS MD [facility] 03-15-2024 11:12-0400 Body temperature 97.88 [degF] JUAN ELLIS MD [address] 03-15-2024 11:05-0400 Respiratory Rate - Anes 14 br/min JUAN ELLIS MD [address] [place] [address] 03-15-2024 11:00-0400 Respiratory Rate - Anes 17 br/min JUAN ELLIS MD [facility] 03-15-2024 10:55-0400 Body temperature 98.17 [degF] JUAN ELLIS MD [facility] 03-15-2024 10:55-0400 Respiratory Rate - Anes 13 br/min JUAN ELLIS MD [facility] 03-15-2024 10:50-0400 Body temperature 98.02 [degF] JUAN ELLIS MD [facility] 03-15-2024 10:45-0400 Body temperature 97.84 [degF] JUAN ELLIS MD [facility] 03-15-2024 02:06-0400 Body weight 28.69 kg/m2 JUAN ELLIS MD [facility] 03-15-2024 00:07-0400 Blood Pressure Cuff Size JUAN ELLIS MD [facility] 03-14-2024 20:49-0400 Body height 170.2 cm JUAN ELLIS MD [facility] 03-14-2024 20:49-0400 Body weight 83.1 kg JUAN ELLIS MD [facility] 03-14-2024 20:49-0400 Body weight 28.69 kg/m2 JUAN ELLIS MD [facility] 03-14-2024 19:33-0400 Diastolic Blood Pressure Non-Invasive 78 mm[Hg] DR TORI ANTOINE DO [facility] 03-14-2024 19:33-0400 Heart rate 74 /min DR TORI ANTOINE DO [facility] 03-14-2024 19:33-0400 Reason For Taking VItal Signs DR TORI ANTOINE DO [facility] 03-14-2024 19:33-0400 Respiratory rate 18 /min DR TORI ANTOINE DO [facility] 03-14-2024 19:33-0400 Systolic Blood Pressure Non-Invasive 115 mm[Hg] DR TORI ANTOINE DO [facility] 03-14-2024 17:17-0400 Body height 170.[address] TORI ANTOINE DO [facility] 03-14-2024 17:17-0400 Body temperature 98.06 [degF] DR TORI ANTOINE DO [facility] 03-14-2024 17:17-0400 Body weight 81.[address] OTRI ANTOINE DO [facility] 03-14-2024 17:17-0400 Diastolic Blood Pressure Non-Invasive 94 mm[Hg] DR TORI ANTOINE DO [facility] 03-14-2024 17:17-0400 Heart rate 75 /min DR TORI ANTOINE DO [facility] 03-14-2024 17:17-0400 Respiratory rate 18 /min DR TORI ANTOINE DO [facility] 03-14-2024 17:17-0400 Systolic Blood Pressure Non-Invasive 186 mm[Hg] DR TORI ANTOINE DO [facility] 11-20-2023 19:54-0400 Diastolic blood pressure 83 mm[Hg] Matt Morgan DO Work Phone: [facility] 11-20-2023 19:54-0400 Heart rate 75 /min Matt Morgan DO Work Phone: [facility] 11-20-2023 19:54-0400 Respiratory rate 18 /min Matt Morgan DO Work Phone: [facility] 11-20-2023 19:54-0400 SaO2% (BldA) [Mass fraction] 100 % Matt Morgan DO Work Phone: [facility] 11-20-2023 19:54-0400 Systolic blood pressure 113 mm[Hg] Matt Morgan DO Work Phone: [facility] 11-20-2023 19:25-0400 Body height 170.2 cm Matt Morgan DO Work Phone: [facility] 11-20-2023 19:25-0400 Body mass index (BMI) [Ratio] 26.78 kg/m2 Matt Morgan DO Work Phone: [facility] 11-20-2023 19:25-0400 Body temperature 99 [degF] Matt Morgan DO Work Phone: [facility] 11-20-2023 19:25-0400 Body weight 77.56 kg Matt Morgan DO Work Phone: [facility] 11-19-2023 17:41-0400 Body mass index (BMI) [Ratio] 27.72 kg/m2 Stephy Briones APRN.QUANTITATIVE ANALYST MARKETING Work Phone: [facility] 11-19-2023 17:41-0400 Body temperature 98.71 [degF] Stephy Briones APRN.QUANTITATIVE ANALYST MARKETING Work Phone: [facility] 11-19-2023 17:41-0400 Body weight 77.9 kg Stephy Briones APRN.QUANTITATIVE ANALYST MARKETING Work Phone: [facility] 11-19-2023 17:41-0400 Diastolic blood pressure 66 mm[Hg] Stephy Briones APRN.QUANTITATIVE ANALYST MARKETING Work Phone: [facility] 11-19-2023 17:41-0400 Heart rate 82 /min Stephy Briones APRN.QUANTITATIVE ANALYST MARKETING Work Phone: [facility] 11-19-2023 17:41-0400 Respiratory rate 20 /min Stephy Briones APRN.QUANTITATIVE ANALYST MARKETING Work Phone: [facility] 11-19-2023 17:41-0400 SaO2% (BldA) [Mass fraction] 97 % Stephy Briones APRN.QUANTITATIVE ANALYST MARKETING Work Phone: [facility] 11-19-2023 17:41-0400 Systolic blood pressure 98 mm[Hg] Stephy Briones APRN.QUANTITATIVE ANALYST MARKETING Work Phone: [facility] 11-15-2023 17:38-0400 Body mass index (BMI) [Ratio] 27.75 kg/m2 Chey Ladd APRN.QUANTITATIVE ANALYST MARKETING Work Phone: [facility] 11-15-2023 17:38-0400 Body temperature 98.2 [degF] Chey Ladd APRN.QUANTITATIVE ANALYST MARKETING Work Phone: [facility] 11-15-2023 17:38-0400 Body weight 78 kg Chey Ladd APRN.QUANTITATIVE ANALYST MARKETING Work Phone: [facility] 11-15-2023 17:38-0400 Diastolic blood pressure 71 mm[Hg] Chey Ladd [employer].QUANTITATIVE ANALYST MARKETING Work Phone: [facility] 11-15-2023 17:38-0400 Heart rate 82 /min Chey Ladd [employer].QUANTITATIVE ANALYST MARKETING Work Phone: [facility] 11-15-2023 17:38-0400 Respiratory rate 18 /min Chey Ladd [employer].QUANTITATIVE ANALYST MARKETING Work Phone: [facility] 11-15-2023 17:38-0400 SaO2% (BldA) [Mass fraction] 99 % Chey Ladd [employer].QUANTITATIVE ANALYST MARKETING Work Phone: [facility] 11-15-2023 17:38-0400 Systolic blood pressure 106 mm[Hg] Chey Ladd [employer].QUANTITATIVE ANALYST MARKETING Work Phone: [facility] 11-06-2023 09:55-0400 Body temperature 97.7 [degF] Dev Narayan MD Work Phone: [facility] 11-06-2023 09:55-0400 Diastolic blood pressure 63 mm[Hg] Dev Narayan MD Work Phone: [facility] 11-06-2023 09:55-0400 Heart rate 72 /min Dev Narayan MD Work Phone: [facility] 11-06-2023 09:55-0400 Respiratory rate 16 /min Dev Narayan MD Work Phone: [facility] 11-06-2023 09:55-0400 SaO2% (BldA) [Mass fraction] 98 % Dev Narayan MD Work Phone: [facility] 11-06-2023 09:55-0400 Systolic blood pressure 112 mm[Hg] Dev Narayan MD Work Phone: [facility] 11-06-2023 07:15-0400 Body height 170 cm Dev Narayan MD Work Phone: [facility] 11-06-2023 07:15-0400 Body mass index (BMI) [Ratio] 27.34 kg/m2 Dev Narayan MD Work Phone: [facility] 11-06-2023 07:15-0400 Body weight 79 kg Dev Narayan MD Work Phone: [facility] 10-01-2023 16:04-0400 Body weight 79.2 kg Damaso Samuels Jr., MD Work Phone: [facility] 10-01-2023 16:04-0400 Diastolic blood pressure 70 mm[Hg] Damaso Samuels Jr., MD Work Phone: [facility] 10-01-2023 16:04-0400 Heart rate 128 /min Damaso Samuels Jr., MD Work Phone: [facility] 10-01-2023 16:04-0400 Respiratory rate 16 /min Damaso Samuels Jr., MD Work Phone: [facility] 10-01-2023 16:04-0400 SaO2% (BldA) [Mass fraction] 97 % Damaso Samuels Jr., MD Work Phone: [facility] 10-01-2023 16:04-0400 Systolic blood pressure 128 mm[Hg] Damaso Samuels Jr., MD Work Phone: [facility] 09-24-2023 15:10-0500 Body height 167.6 cm Dev Narayan MD Work Phone: [facility] 09-24-2023 15:10-0500 Body mass index (BMI) [Ratio] 28.57 kg/m2 Dev Narayan MD Work Phone: [facility] 09-24-2023 15:10-0500 Body weight 80.29 kg Dev Narayan MD Work Phone: [facility] 09-24-2023 15:10-0500 Respiratory rate 16 /min Dev Narayan MD Work Phone: [facility] 09-21-2023 12:53-0500 Body weight 80.29 kg Aliyah Carter [employer].QUANTITATIVE ANALYST MARKETING Work Phone: [facility] 09-21-2023 12:53-0500 Diastolic blood pressure 60 mm[Hg] Aliyah Carter [employer].QUANTITATIVE ANALYST MARKETING Work Phone: [facility] 09-21-2023 12:53-0500 Heart rate 84 /min Aliyah Carter [employer].QUANTITATIVE ANALYST MARKETING Work Phone: [facility] 09-21-2023 12:53-0500 Respiratory rate 18 /min Aliyah Carter [employer].QUANTITATIVE ANALYST MARKETING Work Phone: [facility] 09-21-2023 12:53-0500 SaO2% (BldA) [Mass fraction] 99 % Aliyah Carter [employer].QUANTITATIVE ANALYST MARKETING Work Phone: [facility] 09-21-2023 12:53-0500 Systolic blood pressure 110 mm[Hg] Aliyah Carter [employer].QUANTITATIVE ANALYST MARKETING Work Phone: [facility] 09-03-2023 11:10-0500 Body temperature 97.3 [degF] Bibi Podlogar [employer].QUANTITATIVE ANALYST MARKETING Work Phone: [facility] 09-03-2023 11:10-0500 Body weight 80.65 kg Bibi Podlogar [employer].QUANTITATIVE ANALYST MARKETING Work Phone: [facility] 09-03-2023 11:10-0500 Diastolic blood pressure 60 mm[Hg] Bibi Podlogar [employer].QUANTITATIVE ANALYST MARKETING Work Phone: [facility] 09-03-2023 11:10-0500 Heart rate 89 /min Bibi Podlogar [employer].QUANTITATIVE ANALYST MARKETING Work Phone: [facility] 09-03-2023 11:10-0500 SaO2% (BldA) [Mass fraction] 94 % Bibi Podlogar [employer].QUANTITATIVE ANALYST MARKETING Work Phone: [facility] 09-03-2023 11:10-0500 Systolic blood pressure 110 mm[Hg] Bibi Podlogar [employer].QUANTITATIVE ANALYST MARKETING Work Phone: [facility] 08-26-2023 22:04-0500 Diastolic blood pressure 72 mm[Hg] No Generic Provider [facility] 08-26-2023 22:04-0500 Heart rate 96 /min No Generic Provider [facility] 08-26-2023 22:04-0500 Respiratory rate 20 /min No Generic Provider [facility] 08-26-2023 22:04-0500 SaO2% (BldA) [Mass fraction] 99 % No Generic Provider [facility] 08-26-2023 22:04-0500 Systolic blood pressure 122 mm[Hg] No Generic Provider [facility] 08-26-2023 17:53-0500 Body height 167.6 cm No Generic Provider [facility] 08-26-2023 17:53-0500 Body mass index (BMI) [Ratio] 28.41 kg/m2 No Generic Provider [facility] 08-26-2023 17:53-0500 Body temperature 97.5 [degF] No Generic Provider [facility] 08-26-2023 17:53-0500 Body weight 79.83 kg No Generic Provider [facility] 07-03-2023 11:01-0500 Body height 167.6 cm Keaton Tracy MD Work Phone: [facility] 07-03-2023 11:01-0500 Body weight 81.65 kg Keaton Tracy MD Work Phone: [facility] 06-13-2023 13:24-0500 Body height 170.2 cm Debby Reeves MD Work Phone: [facility] 06-13-2023 13:24-0500 Body weight 81.19 kg Debby Reeves MD Work Phone: [facility] 06-13-2023 13:24-0500 Diastolic blood pressure 80 mm[Hg] Debby Reeves MD Work Phone: [facility] 06-13-2023 13:24-0500 Heart rate 72 /min Debby Reeves MD Work Phone: [facility] 06-13-2023 13:24-0500 Respiratory rate 16 /min Debby Reeves MD Work Phone: [facility] 06-13-2023 13:24-0500 Systolic blood pressure 120 mm[Hg] Debby Reeves MD Work Phone: [facility] 06-06-2023 14:07-0500 Body weight 81.19 kg Carmelita Millan MD Work Phone: [facility] 06-06-2023 14:07-0500 Diastolic blood pressure 70 mm[Hg] Carmelita Millan MD Work Phone: [facility] 06-06-2023 14:07-0500 Systolic blood pressure 102 mm[Hg] Carmelita Millan MD Work Phone: [facility] 06-04-2023 22:44-0500 Diastolic blood pressure 78 mm[Hg] Dr. Joe Reeves Work Phone: [facility] 06-04-2023 22:44-0500 Heart rate 87 /min Dr. Joe Reeves Work Phone: [facility] 06-04-2023 22:44-0500 Respiratory rate 16 /min Dr. Joe Reeves Work Phone: [facility] 06-04-2023 22:44-0500 SaO2% (BldA) [Mass fraction] 97 % Dr. Joe Reeves Work Phone: [facility] 06-04-2023 22:44-0500 Systolic blood pressure 120 mm[Hg] Dr. Joe Reeves Work Phone: [facility] 06-04-2023 17:57-0500 Body height 168.[address] Joe Reeves Work Phone: [facility] 06-04-2023 17:57-0500 Body mass index (BMI) [Ratio] 28.7 kg/m2 Dr. Joe Reeves Work Phone: [facility] 06-04-2023 17:57-0500 Body temperature 98.6 [degF] Dr. Joe Reeves Work Phone: [facility] 06-04-2023 17:57-0500 Body weight [address] Joe Reeves Work Phone: [facility] 06-03-2023 18:20-0500 Heart rate 96 /min [facility] Work Phone: 06-03-2023 18:20-0500 Respiratory rate 22 /min [facility] Work Phone: 06-03-2023 18:20-0500 SaO2% (BldA) [Mass fraction] 97 % [facility] Work Phone: 06-03-2023 18:00-0500 Diastolic blood pressure 78 mm[Hg] [facility] Work Phone: 06-03-2023 18:00-0500 Systolic blood pressure 135 mm[Hg] [facility] Work Phone: 06-03-2023 17:27-0500 Body height 167.64 cm [facility] Work Phone: 06-03-2023 17:27-0500 Body mass index (BMI) [Ratio] 28.6 kg/m2 [facility] Work Phone: 06-03-2023 17:27-0500 Body temperature 98.4 [degF] [facility] Work Phone: 06-03-2023 17:27-0500 Body weight 80.28 kg [facility] Work Phone: 05-11-2023 15:12-0400 Body temperature 97.9 [degF] Dr. Joe Reeves Work Phone: [facility] 05-11-2023 15:12-0400 Diastolic blood pressure 62 mm[Hg] Dr. Joe Reeves Work Phone: [facility] 05-11-2023 15:12-0400 Heart rate 82 /min Dr. Joe Reeves Work Phone: 6(740)368-664906 [place] [address] 05-11-2023 15:12-0400 Respiratory rate 16 /min Dr. Joe Reeves Work Phone: 3(437)416-481159 [place] [address] 05-11-2023 15:12-0400 SaO2% (BldA) [Mass fraction] 100 % Dr. Joe Reeves Work Phone: 7(139)347-723159 [place] [address] 05-11-2023 15:12-0400 Systolic blood pressure 127 mm[Hg] Dr. Joe Reeves Work Phone: 1(612)664-089159 [place] [address] 05-11-2023 11:56-0400 Body height 170.[address] Joe Reeves Work Phone: 9(516)557-536259 [place] [address] 05-11-2023 11:56-0400 Body mass index (BMI) [Ratio] 27.6 kg/m2 Dr. Joe Reeves Work Phone: 4(057)[phone] [place] [address] 05-11-2023 11:56-0400 Body weight [address] Joe Reeves Work Phone: 9(874)732-746659 [place] [address] 05-09-2023 11:40-0400 Body height 170.2 cm Carmelita Millan MD Work Phone: 4(160)[phone] [place] [address] 05-09-2023 11:40-0400 Body weight 80.29 kg Carmelita Millan MD Work Phone: 8(174)[phone] [place] [address] 05-09-2023 11:40-0400 Diastolic blood pressure 74 mm[Hg] Carmelita Millan MD Work Phone: [phone] [place] [address] 05-09-2023 11:40-0400 Heart rate 104 /min Carmelita Millan MD Work Phone: 1(507)[phone] [place] [address] 05-09-2023 11:40-0400 Respiratory rate 16 /min Carmelita Millan MD Work Phone: [facility] 05-09-2023 11:40-0400 Systolic blood pressure 112 mm[Hg] Carmelita Millan MD Work Phone: [facility] 03-14-2023 11:38-0400 Body height 170.2 cm Carmelita Millan MD Work Phone: [facility] 03-14-2023 11:38-0400 Body weight 81.65 kg Carmelita Millan MD Work Phone: [facility] 03-14-2023 11:38-0400 Diastolic blood pressure 60 mm[Hg] Carmelita Millan MD Work Phone: [facility] 03-14-2023 11:38-0400 Heart rate 95 /min Carmelita Millan MD Work Phone: [facility] 03-14-2023 11:38-0400 Respiratory rate 16 /min Carmelita Millan MD Work Phone: [facility] 03-14-2023 11:38-0400 SaO2% (BldA) [Mass fraction] 98 % Carmelita Millan MD Work Phone: [facility] 03-14-2023 11:38-0400 Systolic blood pressure 106 mm[Hg] Carmelita Millan MD Work Phone: [facility] 03-13-2023 10:02-0400 Body temperature 98.91 [degF] Debby Reeves MD Work Phone: [facility] 03-13-2023 10:02-0400 Body weight 82.19 kg Debby Reeves MD Work Phone: [facility] 03-13-2023 10:02-0400 Diastolic blood pressure 64 mm[Hg] Debby Reeves MD Work Phone: [facility] 03-13-2023 10:02-0400 Heart rate 98 /min Debby Reeves MD Work Phone: [facility] 03-13-2023 10:02-0400 Respiratory rate 16 /min Debby Reeves MD Work Phone: [facility] 03-13-2023 10:02-0400 SaO2% (BldA) [Mass fraction] 98 % Debby Reeves MD Work Phone: [facility] 03-13-2023 10:02-0400 Systolic blood pressure 118 mm[Hg] Debby Reeves MD Work Phone: [facility] 03-03-2023 11:11-0400 Diastolic blood pressure 78 mm[Hg] Damaso Jang MD Work Phone: [facility] 03-03-2023 11:11-0400 Systolic blood pressure 116 mm[Hg] Damaso Jang MD Work Phone: [facility] 03-03-2023 10:48-0400 Body weight 83.46 kg Damaso Jagn MD Work Phone: [facility] 03-03-2023 10:48-0400 Heart rate 100 /min Damaso Jang MD Work Phone: [facility] 03-03-2023 10:48-0400 Respiratory rate 18 /min Damaso Jang MD Work Phone: [facility] 03-03-2023 10:48-0400 SaO2% (BldA) [Mass fraction] 97 % Damaso Jang MD Work Phone: [facility] 02-16-2023 23:16-0400 Diastolic blood pressure 68 mm[Hg] Dr. Joe Reeves Work Phone: [facility] 02-16-2023 23:16-0400 Heart rate 69 /min Dr. Joe Reeves Work Phone: [facility] 02-16-2023 23:16-0400 Respiratory rate 16 /min Dr. Joe Reeves Work Phone: [facility] 02-16-2023 23:16-0400 SaO2% (BldA) [Mass fraction] 100 % Dr. Joe Reeves Work Phone: [facility] 02-16-2023 23:16-0400 Systolic blood pressure 116 mm[Hg] Dr. Joe Reeves Work Phone: [facility] 02-16-2023 21:11-0400 Body mass index (BMI) [Ratio] 30.7 kg/m2 Dr. Joe Reeves Work Phone: [facility] 02-16-2023 21:11-0400 Body weight 88.[address] Joe Reeves Work Phone: [facility] 02-16-2023 16:18-0400 Body height 170.[address] Joe Reeves Work Phone: [facility] 02-16-2023 16:18-0400 Body temperature 97.1 [degF] Dr. Joe Reeves Work Phone: [facility] 02-14-2023 16:25-0400 Body height 170.2 cm Debby Reeves MD Work Phone: [facility] 02-14-2023 16:25-0400 Body weight 83.92 kg Debby Reeves MD Work Phone: [facility] 02-14-2023 16:25-0400 Respiratory rate 16 /min Debby Reeves MD Work Phone: [facility] 12-27-2022 13:13-0400 Body weight 83.46 kg Carmelita Millan MD Work Phone: [facility] 12-27-2022 13:13-0400 Diastolic blood pressure 68 mm[Hg] Carmelita Millan MD Work Phone: [facility] 12-27-2022 13:13-0400 Systolic blood pressure 110 mm[Hg] Carmelita Millan MD Work Phone: [facility] 11-23-2022 18:57-0400 Diastolic blood pressure 75 mm[Hg] [facility] 11-23-2022 18:57-0400 Heart rate 74 /min [facility] 11-23-2022 18:57-0400 Systolic blood pressure 131 mm[Hg] [facility] 11-23-2022 18:56-0400 Body temperature 97.6 [degF] [facility] 11-23-2022 18:56-0400 Respiratory rate 16 /min [facility] 11-23-2022 18:56-0400 SaO2% (BldA) [Mass fraction] 98 % [facility] 11-22-2022 07:15-0400 Body height 170 cm [facility] 11-22-2022 07:15-0400 Body mass index (BMI) [Ratio] 32.1 kg/m2 [facility] 11-22-2022 07:15-0400 Body weight 92.7 kg [facility] 11-15-2022 13:46-0400 Body height 167.[address] [facility] 11-15-2022 13:46-0400 Body weight 92.[address] [facility] 11-15-2022 08:57-0400 Body weight 92.08 kg Chey Melgar APRN.CNM Work Phone: [facility] 11-15-2022 08:57-0400 Diastolic blood pressure 70 mm[Hg] Chey Melgar APRN.CNM Work Phone: [facility] 11-15-2022 08:57-0400 Systolic blood pressure 110 mm[Hg] Chey Melgar APRN.CNM Work Phone: [facility] 11-15-2022 00:45-0400 Body temperature 97.5 [degF] [facility] 11-15-2022 00:45-0400 Diastolic blood pressure 72 mm[Hg] [facility] 11-15-2022 00:45-0400 Heart rate 108 /min [facility] 11-15-2022 00:45-0400 SaO2% (BldA) [Mass fraction] 97 % [facility] 11-15-2022 00:45-0400 Systolic blood pressure 123 mm[Hg] [facility] 11-15-2022 00:27-0400 Body height 170.18 cm [facility] 11-15-2022 00:27-0400 Body mass index (BMI) [Ratio] 31.6 kg/m2 [facility] 11-15-2022 00:27-0400 Body weight 91.8 kg [facility] 11-06-2022 16:53-0400 Body temperature 98.2 [degF] Singh Carvalho MD Work Phone: [facility] 11-06-2022 16:53-0400 Body weight 91.63 kg Singh Carvalho MD Work Phone: [facility] 11-06-2022 16:53-0400 Diastolic blood pressure 78 mm[Hg] Singh Carvalho MD Work Phone: [facility] 11-06-2022 16:53-0400 Heart rate 117 /min Singh Carvalho MD Work Phone: [facility] 11-06-2022 16:53-0400 Respiratory rate 18 /min Singh Carvalho MD Work Phone: [facility] 11-06-2022 16:53-0400 SaO2% (BldA) [Mass fraction] 97 % Singh Carvalho MD Work Phone: [facility] 11-06-2022 16:53-0400 Systolic blood pressure 124 mm[Hg] Singh Carvalho MD Work Phone: [facility] 11-02-2022 08:40-0400 Body weight 92.08 kg Angela Eun [employer] Work Phone: [facility] 11-02-2022 08:40-0400 Diastolic blood pressure 60 mm[Hg] Angela [employer] Work Phone: [facility] 11-02-2022 08:40-0400 Systolic blood pressure 108 mm[Hg] Angela Eun [employer] Work Phone: [facility] 10-28-2022 20:55-0400 Body height 170.18 cm [facility] 10-28-2022 20:55-0400 Body mass index (BMI) [Ratio] 32.2 kg/m2 [facility] 10-28-2022 20:55-0400 Body weight 93.34 kg [facility] 10-28-2022 20:44-0400 Body temperature 98.2 [degF] [facility] 10-28-2022 20:44-0400 Diastolic blood pressure 64 mm[Hg] [facility] 10-28-2022 20:44-0400 Heart rate 99 /min [facility] 10-28-2022 20:44-0400 Systolic blood pressure 120 mm[Hg] [facility] 10-28-2022 20:43-0400 SaO2% (BldA) [Mass fraction] 98 % [facility] 10-18-2022 08:29-0400 Body weight 91.63 kg Carmelita Millan MD Work Phone: [facility] 10-18-2022 08:29-0400 Diastolic blood pressure 62 mm[Hg] Carmelita Millan MD Work Phone: [facility] 10-18-2022 08:29-0400 Systolic blood pressure 110 mm[Hg] Carmelita Millan MD Work Phone: [facility] 08-14-2022 02:08-0500 Diastolic blood pressure 81 mm[Hg] Thanh Marrero [facility] 08-14-2022 02:08-0500 Heart rate 84 /min Thanh Marrero [facility] 08-14-2022 02:08-0500 Respiratory rate 16 /min Thanh Marrero [facility] 08-14-2022 02:08-0500 SaO2% (BldA) [Mass fraction] 98 % Thanh Marrero [facility] 08-14-2022 02:08-0500 Systolic blood pressure 132 mm[Hg] Thanh Marrero [facility] 08-13-2022 18:49-0500 Body mass index (BMI) [Ratio] 29.4 kg/m2 [facility] 08-13-2022 18:49-0500 Body temperature 96.8 [degF] [facility] 08-13-2022 18:49-0500 Body weight 85.27 kg [facility] 08-13-2022 18:49-0500 Diastolic blood pressure 70 mm[Hg] [facility] 08-13-2022 18:49-0500 Heart rate 92 /min [facility] 08-13-2022 18:49-0500 Respiratory rate 18 /min [facility] 08-13-2022 18:49-0500 SaO2% (BldA) [Mass fraction] 99 % [facility] 08-13-2022 18:49-0500 Systolic blood pressure 115 mm[Hg] [facility] 08-09-2022 16:24-0500 Body temperature 97.5 [degF] Debby Reeves MD Work Phone: [facility] 08-09-2022 16:24-0500 Body weight 85.28 kg Debby Reeves MD Work Phone: [facility] 08-09-2022 16:24-0500 Diastolic blood pressure 76 mm[Hg] Debby Reeves MD Work Phone: [facility] 08-09-2022 16:24-0500 Heart rate 101 /min Debby Reeves MD Work Phone: [facility] 08-09-2022 16:24-0500 Respiratory rate 16 /min Debby Reeves MD Work Phone: [facility] 08-09-2022 16:24-0500 SaO2% (BldA) [Mass fraction] 98 % Debby Reeves MD Work Phone: [facility] 08-09-2022 16:24-0500 Systolic blood pressure 110 mm[Hg] Debby Reeves MD Work Phone: [facility] 08-09-2022 15:01-0500 Body weight 85.37 kg Sulma Bartholomew APRN.CNM Work Phone: [facility] 08-09-2022 15:01-0500 Diastolic blood pressure 60 mm[Hg] Sulma Bartholomew [employer] Work Phone: [facility] 08-09-2022 15:01-0500 Systolic blood pressure 100 mm[Hg] Sulma Bartholomew [employer] Work Phone: [facility] 08-03-2022 15:07-0500 Body temperature 98.6 [degF] Wendy Rivera [employer] Work Phone: [facility] 08-03-2022 15:07-0500 Body weight 86.91 kg Wendy Rivera [employer] Work Phone: [facility] 08-03-2022 15:07-0500 Diastolic blood pressure 60 mm[Hg] Wendy Rivera [employer] Work Phone: [facility] 08-03-2022 15:07-0500 Heart rate 109 /min Wendy Rivera [employer] Work Phone: [facility] 08-03-2022 15:07-0500 Respiratory rate 16 /min Wendy Rivera [employer] Work Phone: [facility] 08-03-2022 15:07-0500 SaO2% (BldA) [Mass fraction] 95 % Wendy Rivera [employer] Work Phone: [facility] 08-03-2022 15:07-0500 Systolic blood pressure 110 mm[Hg] Wendy Rivera [employer] Work Phone: [facility] 07-27-2022 14:59-0500 Body temperature 98.49 [degF] Chey Ladd [employer] Work Phone: [facility] 07-27-2022 14:59-0500 Body weight 85.55 kg Chey Ladd [employer] Work Phone: [facility] 07-27-2022 14:59-0500 Diastolic blood pressure 68 mm[Hg] Chey Ladd [employer] Work Phone: [facility] 07-27-2022 14:59-0500 Heart rate 109 /min Chey Ladd [employer]IVE [employer] Work Phone: [facility] 07-27-2022 14:59-0500 Respiratory rate 18 /min Chey Ladd [employer] Work Phone: [facility] 07-27-2022 14:59-0500 SaO2% (BldA) [Mass fraction] 97 % Chey Ladd [employer] Work Phone: [facility] 07-27-2022 14:59-0500 Systolic blood pressure 116 mm[Hg] Chey Ladd [employer] Work Phone: [facility] 07-06-2022 16:26-0500 Body weight 85.64 kg Sulma Mercadoalonzo [employer]CNM Work Phone: [facility] 07-06-2022 16:26-0500 Diastolic blood pressure 62 mm[Hg] Sulma Mercadoalonzo [employer].CNM Work Phone: [facility] 07-06-2022 16:26-0500 Systolic blood pressure 110 mm[Hg] Sulma Plotalonzo [employer].CNM Work Phone: [facility] 06-23-2022 17:24-0500 Body temperature 99.5 [degF] Wai Magallon [employer] Work Phone: [facility] 06-23-2022 17:24-0500 Body weight 83.64 kg Wai Magallon [employer] Work Phone: [facility] 06-23-2022 17:24-0500 Diastolic blood pressure 78 mm[Hg] Wai Magallon [employer] Work Phone: [facility] 06-23-2022 17:24-0500 Heart rate 112 /min Wai Magallon [employer] Work Phone: [facility] 06-23-2022 17:24-0500 Respiratory rate 18 /min Wai Magallon [employer] Work Phone: [facility] 06-23-2022 17:24-0500 SaO2% (BldA) [Mass fraction] 99 % Wai Magallon [employer] Work Phone: [facility] 06-23-2022 17:24-0500 Systolic blood pressure 106 mm[Hg] Wai Magallon [employer] Work Phone: [facility] 05-23-2022 18:55-0400 Body weight 84.19 kg Debby Reeves MD Work Phone: [facility] 05-23-2022 18:55-0400 Diastolic blood pressure 68 mm[Hg] Debby Reeves MD Work Phone: [facility] 05-23-2022 18:55-0400 Heart rate 100 /min Debby Reeves MD Work Phone: [facility] 05-23-2022 18:55-0400 Respiratory rate 16 /min Debby Reeves MD Work Phone: [facility] 05-23-2022 18:55-0400 SaO2% (BldA) [Mass fraction] 96 % Debby Reeves MD Work Phone: [facility] 05-23-2022 18:55-0400 Systolic blood pressure 104 mm[Hg] Debby Reeves MD Work Phone: [facility] 05-23-2022 15:16-0400 Body temperature 98.4 [degF] Vale Briones MD Work Phone: [facility] 05-23-2022 15:16-0400 Body weight 84.46 kg Vale Briones MD Work Phone: [facility] 05-23-2022 15:16-0400 Diastolic blood pressure 58 mm[Hg] Vale Briones MD Work Phone: [facility] 05-23-2022 15:16-0400 Systolic blood pressure 112 mm[Hg] Vale Briones MD Work Phone: [facility] 05-02-2022 18:49-0400 Body height 170.18 cm [facility] Work Phone: 05-02-2022 18:49-0400 Body mass index (BMI) [Ratio] 29.3 kg/m2 [facility] Work Phone: 05-02-2022 18:49-0400 Body temperature 97 [degF] [facility] Work Phone: 05-02-2022 18:49-0400 Body weight 85 kg [facility] Work Phone: 05-02-2022 18:49-0400 Diastolic blood pressure 75 mm[Hg] [facility] Work Phone: 05-02-2022 18:49-0400 Heart rate 100 /min [facility] Work Phone: 05-02-2022 18:49-0400 Respiratory rate 16 /min [facility] Work Phone: 05-02-2022 18:49-0400 SaO2% (BldA) [Mass fraction] 97 % [facility] Work Phone: 05-02-2022 18:49-0400 Systolic blood pressure 119 mm[Hg] [facility] Work Phone: 04-06-2022 09:28-0400 Body weight 85.28 kg Vale Briones MD Work Phone: [facility] 04-06-2022 09:28-0400 Diastolic blood pressure 56 mm[Hg] Vale Briones MD Work Phone: [facility] 04-06-2022 09:28-0400 Systolic blood pressure 98 mm[Hg] Vale Briones MD Work Phone: [facility] 04-03-2022 14:33-0400 Body temperature 98.24 [degF] GIL LEE MD [facility] 04-03-2022 14:33-0400 Body weight 84 kg GIL LEE MD [facility] 04-03-2022 14:33-0400 Diastolic blood pressure 81 mm[Hg] GIL LEE MD [facility] 04-03-2022 14:33-0400 Heart rate 80 /min GIL LEE MD [facility] 04-03-2022 14:33-0400 Respiratory rate 16 /min GIL LEE MD [facility] 04-03-2022 14:33-0400 Systolic blood pressure 124 mm[Hg] GIL LEE MD [facility] 03-21-2022 17:54-0400 Body height 167.2 cm Debby Reeves MD Work Phone: [facility] 03-21-2022 17:54-0400 Body weight 83.46 kg Debby Reeves MD Work Phone: [facility] 03-21-2022 17:54-0400 Diastolic blood pressure 60 mm[Hg] Debby Reeves MD Work Phone: [facility] 03-21-2022 17:54-0400 Heart rate 106 /min Debby Reeves MD Work Phone: [facility] 03-21-2022 17:54-0400 Respiratory rate 16 /min Debby Reeves MD Work Phone: [facility] 03-21-2022 17:54-0400 SaO2% (BldA) [Mass fraction] 98 % Debby Reeves MD Work Phone: [facility] 03-21-2022 17:54-0400 Systolic blood pressure 100 mm[Hg] Debby Reeves MD Work Phone: [facility] 01-19-2022 13:50-0400 Body weight 84.82 kg Sulma Bartholomew [employer]CN[employer] Work Phone: [facility] 01-19-2022 13:50-0400 Diastolic blood pressure 60 mm[Hg] Sulma Mercadots [employer] Work Phone: [facility] 01-19-2022 13:50-0400 Systolic blood pressure 122 mm[Hg] Sulma Bartholomew [employer]CNM Work Phone: [facility] 12-28-2021 16:01-0400 Body height 167.6 cm Sulma Bartholomew [employer]CN[employer] Work Phone: [facility] 12-28-2021 16:01-0400 Body weight 82.64 kg Sulma Bartholomew [employer] Work Phone: [facility] 12-28-2021 16:01-0400 Diastolic blood pressure 60 mm[Hg] Sulma Bartholomew [employer]CNM Work Phone: [facility] 12-28-2021 16:01-0400 Systolic blood pressure 100 mm[Hg] Sulma Bartholomew [employer]CNM Work Phone: [facility] 12-23-2021 13:18-0400 Body temperature 98.4 [degF] Wai Pendlebury [employer] Work Phone: [facility] 12-23-2021 13:18-0400 Body weight 83.73 kg Wai Mcphersonbury [employer] Work Phone: [facility] 12-23-2021 13:18-0400 Diastolic blood pressure 62 mm[Hg] Wai Pendlebury [employer] Work Phone: [facility] 12-23-2021 13:18-0400 Heart rate 108 /min Wai Pendlebury [employer] Work Phone: [facility] 12-23-2021 13:18-0400 Respiratory rate 16 /min Wai Pendlebury [employer] Work Phone: [facility] 12-23-2021 13:18-0400 SaO2% (BldA) [Mass fraction] 98 % Wai Pendlebury [employer] Work Phone: [facility] 12-23-2021 13:18-0400 Systolic blood pressure 108 mm[Hg] Wai Pendlebury [employer] Work Phone: [facility] 12-17-2020 19:26-0400 Diastolic blood pressure 60 mm[Hg] Dev Flannery [facility] 12-17-2020 19:26-0400 Heart rate 84 /min Dev Dias [facility] 12-17-2020 19:26-0400 Respiratory rate 18 /min Dev B. [facility] 12-17-2020 19:26-0400 SaO2% (BldA) [Mass fraction] 100 % Dev Flannery [facility] 12-17-2020 19:26-0400 Systolic blood pressure 110 mm[Hg] Dev Flannery [facility] 12-17-2020 16:38-0400 Body height 170.1 cm Dev Flannery [facility] 12-17-2020 16:38-0400 Body temperature 97.34 [degF] Dev Flannery [facility] 12-17-2020 16:38-0400 Body weight 83 kg Dev Flannery [facility] Encounters Encounter Date Encounter Type Care Provider Facility Start: 04-24-2025 End: 04-24-2025 ambulatory No Primary Care Physician Facility:[facility] Start: 04-23-2025 End: 04-23-2025 ambulatory CARMELITA MILLAN Facility:[facility] Start: 04-21-2025 End: 04-21-2025 Emergency department patient visit Thanh Marrero DO Work Phone: [facility] Comment on above: Palpitations (Primar y Dx) Start: 03-27-2025 End: 03-27-2025 ambulatory No Primary Care Physician Facility:[facility] Start: 03-26-2025 End: 03-26-2025 ambulatory KEATON R DEMARCUS Facility:[facility] Start: 03-26-2025 End: 03-26-2025 Patient encounter procedure Carmelita Millan MD Work Phone: OB/Gynecology Comment on above: Anxiety neurosis (Pr imary Dx); Attention deficit hyperactivity disorder (ADHD), combined type; Unplanned (HCC) Start: 03-11-2025 End: 03-19-2025 Telephone encounter Aliyah Askew MD Work Phone: OB/Gynecology Comment on above: Start: 03-06-2025 End: 03-06-2025 Patient encounter procedure [facility] Start: 03-06-2025 End: 03-06-2025 ambulatory Abstract Manager [facility] Work Phone: OB/Gynecology Start: 03-03-2025 End: 03-03-2025 ambulatory KEATON TRACY Facility:[facility] Start: 02-27-2025 End: 02-27-2025 ambulatory KEATON Irwin DEMARCUS Facility:[facility] Start: 02-27-2025 End: 02-27-2025 ambulatory KEATON Irwin DEMARCUS Facility:[facility] Start: 02-13-2025 End: 02-13-2025 [facility] Keaton Tracy MD Work Phone: Family Medicine Comment on above: Right lower quadrant abdominal pain (Primary Dx); Pelvic pain; Chronic midline low back pain without sciatica; ADHD (attention deficit hyperactivity disorder), inattentive type; Anxiety with depression; Migraine with aura and without status migrainosus, not intractable; History of abnormal cervical Pap smear; Smoking history Start: 02-11-2025 End: 02-12-2025 ambulatory Keaton Tracy MD Work Phone: Family Medicine Comment on above: ER visit Opened In Error Start: 02-11-2025 End: 02-11-2025 Manual pelvic examination Nurse Triage [place] Work Phone: Nurse Phone Triage Comment on above: Pelvic Pain Start: 02-10-2025 End: 02-11-2025 Emergency department patient visit Rosanna Ruiz Work Phone: [facility] Comment on above: Lower abdominal pain (Primary Dx) Start: 02-09-2025 End: 02-12-2025 Telephone encounter Carmelita Millan MD Work Phone: [address] [place] [address] Comment on above: Orders; Abdominal Pa in Start: 02-02-2025 End: 04-04-2025 Follow-up encounter Carmelita Millan MD Work Phone: OB/Gynecology Start: 01-29-2025 End: 01-29-2025 Patient encounter procedure [facility] Start: 01-29-2025 End: 01-29-2025 ambulatory Abstract Manager [facility] Work Phone: OB/Gynecology Start: 01-29-2025 End: 01-29-2025 Patient encounter procedure Carmelita Millan MD Work Phone: OB/Gynecology Comment on above: Pelvic pain in femal e (Primary Dx); Dysmenorrhea; Irregular menstruation; Encounter for surveillance of vaginal ring hormonal contraceptive device Start: 01-29-2025 End: 01-29-2025 ambulatory KEATON TRACY Facility:[facility] Start: 01-27-2025 End: 01-27-2025 Telephone encounter Carmelita Millan MD Work Phone: OB/Gynecology Start: 01-23-2025 End: 01-26-2025 Refill Keaton Tracy MD Work Phone: Family Medicine Comment on above: Refill Request Start: 01-08-2025 End: 01-08-2025 E-mail encounter from caregiver [facility] Start: 01-08-2025 End: 01-08-2025 Patient encounter procedure [facility] Comment on above: Instructions & Requi rements for Your Upcoming Appointment Start: 01-01-2025 End: 01-01-2025 ambulatory No Primary Care Physician Facility:[facility] [place] Start: 12-29-2024 End: 12-29-2024 Telephone encounter Angela Haq APRN.QUANTITATIVE ANALYST MARKETING Work Phone: OB/Gynecology Comment on above: Patient Update Start: 12-10-2024 End: 12-10-2024 ambulatory KEATON TRACY Facility:[facility] Start: 11-28-2024 ambulatory No Primary Car e Physician Facility:[facility] Start: 11-28-2024 End: 12-03-2024 [facility] Aliyah Carter APRN.QUANTITATIVE ANALYST MARKETING Work Phone: Family Medicine Comment on above: Degeneration of inte rvertebral disc of lumbar region with discogenic back pain (Primary Dx); Bulging of intervertebral disc between L4 and L5 and L5 and S1; ADHD (attention deficit hyperactivity disorder), inattentive type; Anxiety with depression paper work Start: 11-21-2024 End: 11-21-2024 Telephone encounter Keaton Tracy MD Work Phone: Family Medicine Comment on above: Patient Question Start: 11-19-2024 End: 11-20-2024 ambulatory Keaton Tracy MD Work Phone: Family Medicine Comment on above: Back issues Start: 11-18-2024 End: 11-19-2024 Emergency department patient visit Honorio Fisher DO Work Phone: [facility] Emergency Medicine Comment on above: Lumbar contusion, in itial encounter (Primary Dx) Start: 11-10-2024 End: 11-11-2024 Emergency department patient visit No Primary Care Physician Facility:[facility] Start: 11-05-2024 End: 11-06-2024 ambulatory Keaton Tracy MD Work Phone: Family Medicine Comment on above: Zofran Start: 11-04-2024 ambulatory No Primary Car e Physician Facility:[facility] Start: 10-17-2024 End: 10-17-2024 ambulatory No Primary Care Physician Facility:[facility] Start: 2024 End: 10-14-2024 Refill Keaton Tracy MD Work Phone: Family Medicine Comment on above: Refill Request Start: 10-10-2024 End: 10-10-2024 ambulatory No Primary Care Physician Facility:[facility] Start: 10-09-2024 End: 10-13-2024 Refill Keaton Tracy MD Work Phone: Family [facility] Comment on above: Refill Request Start: 10-05-2024 End: 10-05-2024 Emergency department patient visit Chris Miller Facility:[facility] Start: 10-05-2024 End: 10-06-2024 ambulatory Idania Loco RN NURSE CLINICAL EDUCATION COORDINATOR Comment on above: Allergic Reaction Start: 09-26-2024 End: 09-26-2024 ambulatory No Primary Care Physician Facility:[facility] Start: 09-16-2024 End: 09-17-2024 Refill Keaton Tracy MD Work Phone: Family Medicine Comment on above: Refill Request Start: 09-11-2024 End: 09-11-2024 ambulatory No Primary Care Physician Facility:[facility] Start: 09-06-2024 End: 09-08-2024 Refill Angela Haq APRN.CNP Work Phone: OB/Gynecology Comment on above: Refill Request Start: 09-05-2024 End: 09-05-2024 Emergency department patient visit KEATON TRACY [facility] Emergency Medicine Comment on above: Other migraine with status migrainosus, intractable (Primary Dx) Start: 08-18-2024 End: 08-20-2024 Refill Keaton Tracy MD Work Phone: Family Medicine Comment on above: Refill Request Start: 08-13-2024 End: 08-13-2024 ambulatory No Primary Care Physician Facility:[facility] Start: 08-08-2024 End: 08-08-2024 ambulatory Keaton Tracy MD Work Phone: Family Medicine Comment on above: Procedure, test, or exam not indicated (Primary Dx) Start: 08-08-2024 End: 08-08-2024 Telemedicine consultation with patient Keaton Tracy MD Work Phone: Family Medicine Start: 08-06-2024 End: 08-06-2024 Emergency department patient visit Nilaytrish Locoo Facility:[facility] Start: 08-06-2024 ambulatory KEATON TRACY Facilit y:[facility] Start: 07-28-2024 End: 07-29-2024 Get Medical Advice Keaton Tracy MD Work Phone: Family Medicine Comment on above: Medication refill Start: 07-21-2024 End: 07-21-2024 Refill Keaton Tracy MD Work Phone: Family Medicine Comment on above: Refill Request Start: 07-08-2024 End: 07-08-2024 ambulatory No Primary Care Physician Facility:[facility] Start: 07-07-2024 End: 07-07-2024 Emergency department patient visit Jamal Hawley Facility:[facility] Start: 07-02-2024 ambulatory No Primary Car e Physician Facility:[facility] Start: 06-24-2024 End: 06-24-2024 ambulatory KEATON TRACY Facility:[facility] Start: 06-24-2024 End: 06-24-2024 Patient encounter procedure Carmelita Millan MD Work Phone: OB/Gynecology Comment on above: Atypical glandular c ells of undetermined significance (ZENA) on cervical Pap smear (Primary Dx) Start: 06-19-2024 End: 06-22-2024 Refill Keaton Tracy MD Work Phone: Family Medicine Comment on above: Refill Request Start: 05-27-2024 End: 05-27-2024 ambulatory KEATON TRACY Facility:[facility] Start: 05-27-2024 End: 05-27-2024 Office outpatient visit 25 minutes Maude Bailey APRN.QUANTITATIVE ANALYST MARKETING Work Phone: [facility] Comment on above: Sore throat (Primary Dx); Viral upper respiratory tract infection with cough Start: 05-26-2024 End: 05-27-2024 Telephone encounter Angela Haq APRN.QUANTITATIVE ANALYST MARKETING Work Phone: OB/Gynecology Comment on above: Results Start: 05-25-2024 End: 05-26-2024 Refill Keaton Tracy MD Work Phone: Family Medicine Comment on above: Refill Request Start: 05-22-2024 End: 05-22-2024 ambulatory No Primary Care Physician Facility:[facility] Start: 05-21-2024 End: 05-22-2024 ambulatory Keaton Tracy MD Work Phone: Family Medicine Comment on above: Ozempic Start: 05-19-2024 End: 05-19-2024 ambulatory No Pcp FONDANT COOKER [facility] Start: 05-19-2024 End: 05-19-2024 Patient encounter procedure No Pcp FONDANT COOKER [facility] Comment on above: Encounter for IUD re moval (Primary Dx); Screening for malignant neoplasm of cervix; Encounter for screening for human papillomavirus (HPV) Start: 05-16-2024 End: 05-16-2024 [facility] Keaton Tracy MD Work Phone: Family Medicine Comment on above: RBBB (Primary Dx); Chronic midline low back pain without sciatica; ADHD (attention deficit hyperactivity disorder), inattentive type; Anxiety with depression; Migraine with aura, not intractable, without status migrainosus; Degeneration of intervertebral disc of lumbar region with discogenic back pain; Class 1 obesity due to excess calories without serious comorbidity with body mass index (BMI) of 30.0 to 30.9 in adult; Screening for cervical cancer Start: 04-30-2024 End: 04-30-2024 ambulatory No Primary Care Physician Facility:[facility] Start: 04-21-2024 End: 04-29-2024 ambulatory Keaton Tracy MD Work Phone: Family Medicine Comment on above: TiZanidine Start: 04-16-2024 End: 04-16-2024 Emergency department patient visit UNKNOWN PROVIDER [facility] Emergency Medicine Comment on above: Dental (Pt expressin g recurrent abscess on R mandible. Pt has been on multiple abx, tylenol, toradol. Pt was seen at OSH earlier today, had CT scan, steroid injection and attempted lancing x 5 without drainage. Pt with ongoing pain and swelling. ) Start: 04-15-2024 End: 04-15-2024 Emergency department patient visit Keaton Tracy MD Work Phone: [facility] Emergency Medicine Comment on above: Dental abscess (Prim sowmya Dx) Start: 04-15-2024 End: 04-15-2024 ambulatory Koki Wheatley PA-C Work Phone: Family Medicine Comment on above: Pain, dental (Primar y Dx); Dental infection Start: 04-15-2024 End: 04-15-2024 Telemedicine consultation with patient Koki Wheatley PA-C Work Phone: Family Medicine Start: 04-10-2024 End: 04-10-2024 Emergency department patient visit ROB HARDWICK [facility] Start: 04-10-2024 End: 04-10-2024 Patient encounter procedure Venkata Chakraborty APRN.QUANTITATIVE ANALYST MARKETING Work Phone: [facility] Comment on above: Right lower quadrant abdominal pain (Primary Dx) Start: 04-01-2024 End: 04-01-2024 Telemedicine consultation with patient Rylan Nicholas APRN.QUANTITATIVE ANALYST MARKETING Work Phone: Telemedicine Comment on above: Chronic midline low back pain without sciatica (Primary Dx) Start: 03-28-2024 End: 03-28-2024 Emergency department patient visit KEATON Gayle [facility] Facility:[facility] Start: 03-28-2024 Encounter for richard l adult medical examination without abnormal findings [facility] Start: 03-27-2024 End: 03-27-2024 ambulatory Phyllis Maryse ROSALES Work Phone: Family Medicine Comment on above: Abnormal EKG (Primar y Dx); Pain, dental Start: 03-27-2024 End: 03-27-2024 Telemedicine consultation with patient Phyllis Maryse ROSALES Work Phone: Family Medicine Start: 03-24-2024 End: 03-24-2024 Emergency department patient visit VERO HEATH MD [facility] Start: 03-17-2024 End: 03-18-2024 ambulatory Ros Nelson RN NURSE CLINICAL EDUCATION COORDINATOR Comment on above: Chest Pain Start: 03-17-2024 End: 03-18-2024 Follow-up encounter Carmelita Millan MD Work Phone: OB/Gynecology Comment on above: Follow up after hosp italization Start: 03-16-2024 End: 03-16-2024 ambulatory Radha Browning RN NURSE CLINICAL EDUCATION COORDINATOR Comment on above: Opened In Error Start: 03-14-2024 End: 03-16-2024 ambulatory JUAN ELLIS MD Facility:[facility] Start: 03-14-2024 End: 03-16-2024 Observation JUAN ELLIS MD [facility] Start: 03-14-2024 End: 03-14-2024 Emergency department patient visit DR TORI ANTOINE DO [facility] Start: 02-09-2024 End: 02-09-2024 Emergency department patient visit DEBBY HALE Facility:[facility] Start: 12-07-2023 End: 12-07-2023 [facility] Keaton Tracy MD Work Phone: Family Medicine Comment on above: ADHD (attention defi cit hyperactivity disorder), inattentive type (Primary Dx); Panic disorder; Anxiety with depression; Migraine with aura, not intractable, without status migrainosus; History of hepatitis C Start: 11-28-2023 ambulatory Keaton bose MD Work Phone: Family Medicine Comment on above: FMLA paperwork Start: 11-26-2023 End: 11-26-2023 ambulatory John Braden MD Work Phone: Endocrinology Comment on above: Adrenal nodule (HCC) (Primary Dx) Start: 11-26-2023 End: 11-26-2023 Telemedicine consultation with patient John Braden MD Work Phone: Endocrinology Start: 11-22-2023 End: 11-22-2023 [facility] Keaton Tracy MD Work Phone: Family [facility] Comment on above: ADHD (attention defi cit hyperactivity disorder), inattentive type (Primary Dx); Panic disorder; Migraine with aura, not intractable, without status migrainosus; History of hepatitis C; Anxiety with depression; DDD (degenerative disc disease), lumbar; History of abnormal cervical Pap smear Start: 11-20-2023 End: 11-20-2023 Subsequent hospital visit by physician Juan Hardwickv1 [facility] Comment on above: Arrived Start: 11-20-2023 End: 11-20-2023 Emergency department patient visit Matt Morgan DO Work Phone: [facility] Emergency Medicine Comment on above: Anxiety reaction (Pr imary Dx) Start: 11-19-2023 End: 11-19-2023 Patient encounter procedure Stephy Briones APRN.QUANTITATIVE ANALYST MARKETING Work Phone: [facility] Comment on above: Migraine with aura, not intractable, without status migrainosus (Primary Dx) Start: 11-15-2023 End: 11-15-2023 Patient encounter procedure Chey Ladd APRN.QUANTITATIVE ANALYST MARKETING Work Phone: [facility] Comment on above: Migraine headaches ( Primary Dx) Start: 11-06-2023 End: 11-06-2023 Subsequent hospital visit by physician Dev Naraayn MD Work Phone: [facility] [place] Comment on above: Kidney stone (Primar y Dx) Start: 10-22-2023 ambulatory Keaton bose MD Work Phone: Family Medicine Comment on above: Medication renewal Start: 10-12-2023 End: 10-12-2023 ambulatory Debby Taveras APRN.QUANTITATIVE ANALYST MARKETING Work Phone: Telemedicine Comment on above: Motion sickness, ini tial encounter (Primary Dx) Start: 10-12-2023 End: 10-12-2023 Telemedicine consultation with patient Debby Taveras APRN.QUANTITATIVE ANALYST MARKETING Work Phone: [facility] Start: 10-09-2023 Orders Only Lashon Saba PA-C Work Phone: Neurology Comment on above: Migraine with aura a nd without status migrainosus, not intractable (Primary Dx) Start: 10-08-2023 ambulatory Keaton bose MD Work Phone: Family Medicine Comment on above: FMLA Start: 10-05-2023 End: 10-05-2023 Subsequent hospital visit by physician [employer] [facility] (I-Stat/1.5t) Work Phone: Radiology Comment on above: Migraine with aura a nd without status migrainosus, not intractable [G43.109] Start: 10-04-2023 End: 10-04-2023 Subsequent hospital visit by physician [employer] [facility] (I-Stat/1.5t) Work Phone: Radiology Comment on above: 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] Start: 10-01-2023 End: 10-01-2023 Patient encounter procedure Damaso Samuels MD Work Phone: Neurology Comment on above: Migraine with aura a nd without status migrainosus, not intractable (Primary Dx); Cramping of hands; Facial paralysis; Near syncope; Adrenal nodule (HCC) Start: 10-01-2023 End: 10-01-2023 ambulatory [facility] Comment on above: FMLA and [place] A ccessibility Pass Start: 10-01-2023 End: 10-01-2023 Office outpatient visit 25 minutes Dev Narayan MD Work Phone: [facility] Comment on above: Flank pain; Kidney stones Start: 09-28-2023 End: 09-28-2023 [facility] Keaton Tracy MD Work Phone: Family Medicine Comment on above: ADHD (attention defi cit hyperactivity disorder), inattentive type (Primary Dx); Panic disorder; Migraine with aura, not intractable, without status migrainosus; History of hepatitis C; Overweight with body mass index (BMI) of 28 to 28.9 in adult; Anxiety with depression; DDD (degenerative disc disease), lumbar; History of abnormal cervical Pap smear Start: 09-24-2023 End: 09-24-2023 ambulatory [facility] Start: 09-24-2023 End: 09-24-2023 Subsequent hospital visit by physician Juan Espitia145 [facility] Comment on above: Kidney stones Start: 09-24-2023 End: 09-24-2023 Office outpatient new 30 minutes Dev Narayan MD Work Phone: [facility] Comment on above: Flank pain; Kidney stones Start: 09-21-2023 Telephone encounter Keaton willis MD Work Phone: Family Medicine Comment on above: Forms Start: 09-21-2023 End: 09-21-2023 Patient encounter procedure Aliyah Carter APRN.QUANTITATIVE ANALYST MARKETING Work Phone: Family Medicine Comment on above: ADHD (attention defi cit hyperactivity disorder), inattentive type (Primary Dx); Panic disorder; Facial paralysis; Cramping of hands; Near syncope Start: 09-14-2023 Refill Keaton bose MD Work Phone: Family Medicine Comment on above: Refill Request Start: 09-13-2023 Telephone encounter Damaso Jang MD Work Phone: Pulmonology [facility] Comment on above: Results Start: 09-04-2023 Refill Bibi Podloglala [place].QUANTITATIVE ANALYST MARKETING Work Phone: Family Medicine [place] Comment on above: Refill Request Start: 09-03-2023 End: 09-03-2023 Patient encounter procedure Bibi Podloglala [place].QUANTITATIVE ANALYST MARKETING Work Phone: Family Medicine [place] Comment on above: Routine physical exa mination (Primary Dx); Encounter for immunization; Migraine with aura, not intractable, without status migrainosus; Panic disorder; Disorder of adrenal gland (HCC); ADHD (attention deficit hyperactivity disorder), inattentive type Start: 09-03-2023 End: 09-03-2023 Physical examination Bibi Podloglala FONDANT COOKER.QUANTITATIVE ANALYST MARKETING Work Phone: [facility] Work Phone: Start: 08-31-2023 End: 08-31-2023 [facility] Damaso Jang MD Work Phone: Family Medicine [place] Comment on above: Disorder of adrenal gland (HCC) (Primary Dx); Adrenal mass 1 cm to 4 cm in diameter (HCC) Start: 08-26-2023 End: 08-26-2023 Emergency department patient visit No Generic Provider [facility] Emergency Medicine Comment on above: Urinary tract infect ion without hematuria, site unspecified (Primary Dx); Flank pain; Adrenal adenoma, unspecified laterality; Renal calculi Start: 07-05-2023 Refill Debby Reeves MD Work Phone: Family Medicine [place] Comment on above: Refill Request Start: 07-04-2023 Telephone encounter Rivas Roberson Adult Psychology Comment on above: Consult (Patient Out reach 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 Comment on above: Appointment Start: 06-04-2023 End: 06-04-2023 Emergency department patient visit Dr. [facility] Reeves [facility] Work [facility]: Start: 06-04-2023 End: 06-04-2023 ambulatory Debby Reeves MD Work Phone: [facility] Comment on above: Chest pain, unspecif ied type (Primary Dx); Numbness and tingling of right side of face Start: 06-04-2023 End: 06-04-2023 Telemedicine consultation with patient Debby Reeves MD Work Phone: [facility] Start: 06-03-2023 End: 06-03-2023 Emergency department patient visit Physician Facility:[facility] Start: 06-03-2023 End: 06-03-2023 Emergency department patient visit [facility] Work Phone: Start: 05-30-2023 Telephone encounter Carmelita Millan MD Work Phone: OB/Gynecology Comment on above: Appointment Start: 05-30-2023 End: 05-30-2023 ambulatory Lashon Saba BOBBY Work Phone: Neurology Comment on above: Migraine with aura a nd without status migrainosus, not intractable (Primary Dx); FTND (full term normal delivery) Start: 05-30-2023 End: 05-30-2023 Telemedicine consultation with patient Lashon Saba BOBBY Work Phone: [facility] Start: 05-29-2023 Refill Debby Reeves MD Work Phone: [facility] Comment on above: Refill Request Headache Start: 05-14-2023 ambulatory Carmelita head MD Work Phone: OB/Gynecology Comment on above: MANUEL III (cervical in traepithelial neoplasia grade III) with severe dysplasia (Primary Dx); High grade squamous intraepithelial lesion (HGSIL), grade 3 MANUEL, on biopsy of cervix Start: 05-14-2023 Patient encounter procedure Carmelita Millan MD Work Phone: [facility] Start: 05-11-2023 End: 05-11-2023 Admission to same day surgery center Dr. Joe Reeves Work Phone: [facility] Start: 05-11-2023 End: 05-11-[address] Joe Reeves Work Phone: [facility] Work Phone: Start: 05-09-2023 End: 05-09-2023 Patient encounter procedure Carmelita Millan MD Work Phone: OB/Gynecology Comment on above: MANUEL III (cervical in traepithelial neoplasia grade III) with severe dysplasia (Primary Dx); General counseling and advice for contraceptive management; Anxiety due to invasive procedure Start: 05-04-2023 Refill Bibi Saxena APRN.CNP Work Phone: [facility] Comment on above: Refill Request Start: 04-27-2023 Admission to [facility] Provider OB/Gynecology Comment on above: surgery confirmation Start: 04-27-2023 E-mail encounter joel villar caregiver [facility] Provider [facility] Start: 04-19-2023 End: 04-19-[address] Joe Reeves Work Phone: [facility] Work Phone: Start: 04-16-2023 End: 04-16-[address] Joe Reeves Work Phone: [facility] Work Phone: Start: 04-04-2023 Refill Debby Reeves MD Work Phone: [facility] Comment on above: Refill Request Start: 03-21-2023 Telephone encounter Carmelita Millan MD Work Phone: OB/Gynecology Comment on above: Surgery Cancelled Start: 03-21-2023 End: 03-21-2023 ambulatory Debby Reeves MD Work Phone: [facility] Comment on above: COVID-19 virus infec tion (Primary Dx) Start: 03-21-2023 End: 03-21-2023 Telemedicine consultation with patient Debby Reeves MD Work Phone: [facility] Start: 03-15-2023 Telephone encounter Brendon Sm art FONDANT COOKER.QUANTITATIVE ANALYST MARKETING Work Phone: [facility] Comment on above: Appointment Start: 03-15-2023 End: 03-15-2023 ambulatory Richele Smart FONDANT COOKER.QUANTITATIVE ANALYST MARKETING Work Phone: [facility] Comment on above: Disturbance of skin sensation (Primary Dx); Myofascial pain; Chronic bilateral low back pain without sciatica Start: 03-15-2023 End: 03-15-2023 Telemedicine consultation with patient Richele Smart FONDANT COOKER.QUANTITATIVE ANALYST MARKETING Work Phone: [facility] Start: 03-14-2023 End: 03-14-2023 Patient encounter procedure Carmelita Millan MD Work Phone: OB/Gynecology Comment on above: General counseling a nd advice for contraceptive management (Primary Dx); High grade squamous intraepithelial lesion (HGSIL), grade 3 MANUEL, on biopsy of cervix Start: 03-13-2023 End: 03-13-2023 Patient encounter procedure Debby Reeves MD Work Phone: Family Medicine [place] Comment on above: Flank pain (Primary Dx); Lower abdominal pain Start: 03-09-2023 Telephone encounter Joe Reeves MD Work Phone: [facility] [place] Comment on above: Patient Update Start: 03-08-2023 End: 03-08-[address] Joe Reeves Work Phone: [facility] Work Phone: Start: 03-07-2023 ambulatory [facility] Provider Psychology Comment on above: behavioral health re sources Start: 03-07-2023 E-mail encounter joel m caregiver [facility] Provider PAR[facility]ZANARES [facility] Start: 03-07-2023 Telephone encounter Aliyah johnston [facility] Work Phone: Psychology Comment on above: bh consult Start: 03-03-2023 End: 03-03-2023 Patient encounter procedure Damaso Jang MD Work Phone: Family Medicine [place] Comment on above: Migraine with aura, not intractable, without status migrainosus (Primary Dx); DDD (degenerative disc disease), lumbar Start: 02-19-2023 E-mail encounter fro m caregiver [facility] Start: 02-19-2023 Patient encounter procedure [facility] Family [facility] [place] Comment on above: Appointment Start: 02-19-2023 Telephone encounter Joe Reeves MD Work Phone: Family Medicine [place] Comment on above: Results Refill Start: 02-17-2023 ambulatory Alem Tang RN NURSE CLINICAL EDUCATION COORDINATOR Comment on above: Information Start: 02-16-2023 End: 02-16-2023 Emergency department patient visit Dr. Joe Reeves Work Phone: [facility] Work Phone: Start: 02-14-2023 End: 02-14-2023 Patient encounter procedure Debby Reeves MD Work Phone: [facility] [place] Comment on above: ADHD (attention defi cit hyperactivity disorder), inattentive type (Primary Dx); Controlled substance agreement signed; Encounter for test, result unknown ADHD (attention defi cit hyperactivity disorder), inattentive type; Controlled substance agreement signed; Encounter for test, result unknown Start: 01-31-2023 End: 01-31-2023 ambulatory [facility] Ambulatory Start: 01-24-2023 End: 01-24-2023 Telemedicine consultation with patient Kylee Gil APRN.QUANTITATIVE ANALYST MARKETING Work Phone: [facility] Start: 01-24-2023 Admission to [facility] Provider OB/Gynecology Comment on above: surgery confirmation Start: 01-24-2023 End: 01-24-2023 ambulatory Kylee Ortizhrie OCTAVIO.QUANTITATIVE ANALYST MARKETING Work Phone: OB/Gynecology Comment on above: General counseling a nd advice for contraceptive management (Primary Dx); Encounter for prescription for nuvaring Virtual visit Start: 01-24-2023 E-mail encounter fro m caregiver [facility] Provider [facility] Start: 01-24-2023 Telephone encounter Carmelita Millan MD Work Phone: OB/Gynecology Comment on above: Unprotected Intercou rse Start: 01-03-2023 Telephone encounter Carmelita Millan MD Work Phone: OB/Gynecology Comment on above: Patient Question Start: 12-27-2022 End: 12-27-2022 Patient encounter procedure Carmelita Millan MD Work Phone: OB/Gynecology Comment on above: Papanicolaou smear o f cervix with high grade squamous intraepithelial lesion (HGSIL) (Primary Dx) Start: 12-19-2022 Telephone encounter Chrissy harmon MD Work Phone: OB/Gynecology Comment on above: Patient Question Start: 12-10-2022 End: 12-10-[address] Joe Reeves Work Phone: [facility] Work Phone: Start: 11-28-2022 End: 11-28-[address] Joe Reeves Work Phone: [facility] Work Phone: Start: 11-26-2022 End: 11-26-[address] Joe Reeves Work Phone: [facility] Work Phone: Start: 11-23-2022 ambulatory Carmelita head MD Work Phone: OB/Gynecology Comment on above: Ob Delivery Note Start: 11-22-2022 End: 11-23-2022 Evaluation and management of inpatient [facility] [place] Start: 11-17-2022 ambulatory Chey Melgar APRN.CNM Work Phone: OB/Gynecology Start: 11-17-2022 E-mail encounter fro m caregiver Chey Melgar APRN.CNM Work Phone: [facility] Start: 11-15-2022 End: 11-15-2022 ambulatory Andrew Rogers RN Work Phone: Endocrinology Comment on above: Diet controlled gest ational diabetes mellitus (GDM) in second trimester (Primary Dx) Dietary counseling ( Primary Dx); Diet controlled gestational diabetes mellitus (GDM), antepartum Start: 11-15-2022 End: 11-15-2022 Telemedicine consultation with patient Andrew Rogers RN Work Phone: [facility] Start: 11-15-2022 End: 11-15-2022 Patient encounter procedure Chey Melgar APRN.CNM Work Phone: OB/Gynecology Comment on above: 38 weeks gestation o f (Primary Dx) Start: 11-15-2022 End: 11-15-[address] [facility] Work Phone: Start: 11-15-2022 End: 11-15-2022 Patient encounter procedure [facility] Out[facility] Start: 11-08-2022 Refill Sulma Magana s FONDANT COOKER.CNM Work Phone: OB/Gynecology Comment on above: Results Orders Start: 11-06-2022 End: 11-06-2022 Orders Only Sulma Bartholomew FONDANT COOKER.CNM Work Phone: OB/Gynecology Comment on above: Anemia during pregna ncy in second trimester (Primary Dx); Elevated glucose Acute cough (Primary Dx); Wheezing Start: 11-02-2022 ambulatory Carmelita head MD Work Phone: OB/Gynecology Comment on above: FMLA Start: 11-02-2022 E-mail encounter fro m caregiver Carmelita Millan MD Work Phone: [facility] Start: 11-02-2022 End: 11-02-2022 Patient encounter procedure Angela Shercalf FONDANT COOKER.QUANTITATIVE ANALYST MARKETING Work Phone: OB/Gynecology Comment on above: 36 weeks gestation o f (Primary Dx); Abnormal glucose complicating Size of fetus incons istent with dates in third trimester (Primary Dx); Limited care in third trimester; Supervision of other high risk pregnancies, third trimester; 36 weeks gestation of Start: 10-28-2022 End: 10-28-[address] [facility] Work Phone: Start: 10-28-2022 End: 10-28-2022 Patient encounter procedure [facility] Start: 10-18-2022 End: 10-18-2022 Patient encounter procedure Carmelita Millan MD Work Phone: OB/Gynecology Comment on above: 34 weeks gestation o f (Primary Dx); Limited care in third trimester; Supervision of other high risk pregnancies, third trimester; Size of fetus inconsistent with dates in third trimester; Need for Tdap vaccination Start: 09-09-2022 Refill Debby Reeves MD Work Phone: [facility] Comment on above: Refill Request Start: 08-29-2022 End: 08-29-2022 [facility] Bibi Escobarreba FONDANT COOKER.QUANTITATIVE ANALYST MARKETING Work Phone: [facility] Comment on above: Panic disorder (Prim sowmya Dx); Nicotine withdrawal Orders Start: 08-14-2022 Patient encounter procedure Dani Morgan DO Work Phone: Infectious Disease Start: 08-14-2022 Telephone encounter Chey hagan FONDANT COOKER.CNM Work Phone: OB/Gynecology Comment on above: Orders Start: 08-14-2022 End: 08-14-2022 Emergency department patient visit Thanh Davis [facility] Emergency 10 Start: 08-13-2022 End: 08-13-2022 [facility] Start: 08-12-2022 Telephone encounter Chrissy harmon MD Work Phone: OB/Gynecology Comment on above: Returning Patient's Call; Follow Up Start: 08-11-2022 ambulatory Jo Ann marin LPN NURSE CLINICAL EDUCATION COORDINATOR Comment on above: hepatitis c exposure Start: 08-09-2022 End: 08-09-2022 Patient encounter procedure Debby Reeves MD Work Phone: [facility] Comment on above: Viral URI (Primary D x); Pharyngitis, unspecified etiology Start: 08-09-2022 End: 08-09-2022 Patient encounter procedure Sulma Bartholomew FONDANT COOKER.CNM Work Phone: OB/Gynecology Comment on above: 24 weeks gestation o f (Primary Dx); Encounter for supervision of other normal in second trimester Start: 08-05-2022 ambulatory Radha Morales RN NURSE CLINICAL EDUCATION COORDINATOR Comment on above: Sore Throat; Ear Kiya n Start: 08-03-2022 End: 08-03-2022 Patient encounter procedure Wendy Rivera FONDANT COOKER.QUANTITATIVE ANALYST MARKETING Work Phone: [facility] Comment on above: URI, acute (Primary Dx) Start: 07-27-2022 Telephone encounter Sulma Judy velasquezalonzo FONDANT COOKER.CNM Work Phone: OB/Gynecology Comment on above: Patient Update Start: 07-27-2022 End: 07-27-2022 Patient encounter procedure Ludmila Cazares MD Work Phone: Maternal Medicine Comment on above: Encounter for anatomic survey (Primary Dx); 22 weeks gestation of ; Obesity complicating , second trimester Pharyngitis, unspeci fied etiology (Primary Dx); Ulcer of lower lip Start: 07-06-2022 End: 07-06-2022 Patient encounter procedure Sulma Bartholomew FONDANT COOKER.CNM Work Phone: OB/Gynecology Comment on above: 19 weeks gestation o f (Primary Dx); Migraine with aura and without status migrainosus, not intractable; Engages in vaping Start: 07-05-2022 Refill Debby Reeves MD Work Phone: Family [facility] Comment on above: Refill Request Medication Problem Start: 06-23-2022 End: 06-23-2022 Patient encounter procedure Wai Magallon FONDANT COOKER.QUANTITATIVE ANALYST MARKETING Work Phone: [facility] Comment on above: Viral illness (Prima ry Dx) Start: 06-18-2022 ambulatory Susana Hill RN NURSE CLINICAL EDUCATION COORDINATOR Comment on above: Information Start: 06-14-2022 Telephone encounter Joe Reeves MD Work Phone: Family [facility] Comment on above: Future Appointment Start: 05-31-2022 End: 05-31-2022 ambulatory Debby Reeves MD Work Phone: Family [facility] Comment on above: Intractable migraine without aura and with status migrainosus (Primary Dx); at early stage Start: 05-31-2022 End: 05-31-2022 Telemedicine consultation with patient Debby Reeves MD Work Phone: [facility] Start: 05-29-2022 Telephone encounter Ludmila castillo MD Work Phone: Maternal Medicine Comment on above: NIPT results Start: 05-24-2022 End: 05-24-2022 Patient encounter procedure Ludmila Cazares MD Work Phone: Maternal Medicine Comment on above: Encounter for (NT) n uchal translucency scan (Primary Dx); 13 weeks gestation of Start: 05-23-2022 End: 05-23-2022 Patient encounter procedure Debby Reeves MD Work Phone: Family Medicine [place] Comment on above: Intractable migraine without aura and with status migrainosus (Primary Dx) Start: 05-23-2022 End: 05-23-2022 Patient encounter procedure Vale Briones MD Work Phone: OB/Gynecology Comment on above: Encounter for superv ision of other normal in first trimester (Primary Dx); 12 weeks gestation of Start: 05-02-2022 End: 05-02-2022 Emergency department patient visit [facility]-Emergency Department Start: 04-26-2022 Orders Only Ludmila Cazares MD Work Phone: Maternal Medicine Comment on above: Encounter for superv ision of other normal in first trimester (Primary Dx) Start: 04-13-2022 Telephone encounter Vale ocampo MD Work Phone: OB/Gynecology Comment on above: Medication Question Start: 04-13-2022 End: 04-13-2022 Nursing evaluation of patient and report Nurse Pnob [facility] Work Phone: OB/Gynecology Comment on above: Supervision of high risk , antepartum (Primary Dx); Spotting in early ; History of depression; Drug abuse (HCC); Engages in vaping; History of macrosomia in in prior , currently ; Patient request for diagnostic testing Start: 04-13-2022 End: 01-01-2023 Patient requested procedure Nurse Pnob [facility] Work Phone: OB/Gynecology Start: 04-06-2022 End: 04-06-2022 Patient encounter procedure Vale Briones MD Work Phone: OB/Gynecology Comment on above: Threatened (Primary Dx) Start: 04-03-2022 End: 04-03-2022 Emergency department patient visit GIL LEE MD [facility] Start: 04-03-2022 Telephone encounter Vale ocampo MD Work Phone: OB/Gynecology Comment on above: Early OB Bleeding Start: 03-24-2022 Telephone encounter Bibi smith APRN.QUANTITATIVE ANALYST MARKETING Work Phone: [facility] [place] Comment on above: Results Start: 03-23-2022 ambulatory Ginny Scott RN [facility] Start: 03-23-2022 Patient encounter procedure Ginny Scott RN NURSE CLINICAL EDUCATION COORDINATOR Comment on above: Referral Information Start: 03-22-2022 Telephone encounter Chey lucas PHOTOGRAPHIC PLATEMAKER Work Phone: Adult Psychology Comment on above: behavioral health so cial work Start: 03-21-2022 End: 03-21-2022 Patient encounter procedure Debby Reeves MD Work Phone: [facility] [place] Comment on above: at early s tage (Primary Dx); 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 of cervix; Mild intermittent asthma without complication; Anxiety with depression; PTSD (post-traumatic stress disorder); Attention deficit hyperactivity disorder (ADHD), predominantly inattentive type; Tobacco use; Gastroesophageal reflux disease, unspecified whether esophagitis present Start: 02-23-2022 Telephone encounter Chrissy harmon MD Work Phone: OB/Gynecology Comment on above: Results Start: 02-22-2022 End: 02-22-2022 ambulatory Chrissy Seay MD Work Phone: OB/Gynecology Comment on above: High grade squamous intraepithelial cervical dysplasia (Primary Dx); Positive urine test Start: 02-22-2022 End: 02-22-2022 Telemedicine consultation with patient Chrissy Seay MD Work Phone: [facility] Start: 02-22-2022 Telephone encounter Wai Bailey MD Work Phone: [facility] [place] Comment on above: Medication Request Start: 02-21-2022 Telephone encounter Sulma leyva APRN.CNCorie Work Phone: OB/Gynecology Comment on above: Patient Question Start: 02-02-2022 Telephone encounter Carmelita Millan MD Work Phone: OB/Gynecology Comment on above: Patient Question Start: 01-20-2022 Telephone encounter Sulma leyva APRN.CNCorie Work Phone: OB/Gynecology Comment on above: Results Start: 01-19-2022 End: 01-19-2022 Patient encounter procedure Sulma Bartholomew FONDANT COOKER.CNCorie Work Phone: OB/Gynecology Comment on above: Encounter for IUD re moval (Primary Dx); Vaginal discharge Start: 01-10-2022 Telephone encounter Sulma leyva APRN.CNCorie Work Phone: OB/Gynecology Comment on above: Results; Appointment Start: 12-28-2021 End: 12-28-2021 Patient encounter procedure Sulma Bartholomew APRN.CNCorie Work Phone: OB/Gynecology Comment on above: Screen for STD (sexu ally transmitted disease) (Primary Dx); Encounter for gynecological examination (general) (routine) without abnormal findings; Screening for cervical cancer; Encounter for screening for human papillomavirus (HPV) Start: 12-28-2021 End: 12-28-2021 Patient encounter status Sulma Bartholomew APRN.CNCorie Work Phone: OB/Gynecology Start: 12-23-2021 End: 12-23-2021 Patient encounter procedure Wai Magallon APRN.QUANTITATIVE ANALYST MARKETING [facility] Comment on above: Rash (Primary Dx) Start: 11-25-2021 End: 11-25-2021 Telemedicine consultation with patient Amaya Rasmussen APRN.CNP, DNP Work Phone: [facility] Start: 11-25-2021 End: 11-25-2021 Telephone encounter Amaya Rasmussen APRN.CNP, DNP Work Phone: [facility] [place] Comment on above: Medication Problem Attention deficit hy peractivity disorder (ADHD), predominantly inattentive type (Primary Dx); Anxiety with depression Start: 11-23-2021 End: 11-23-2021 Office outpatient visit 10 minutes Amaya Rasmussen APRN.ANISHA, DEO Work Phone: [facility] Comment on above: Attention deficit hy peractivity disorder (ADHD), predominantly inattentive type (Primary Dx); Anxiety with depression Start: 10-27-2021 Refill Amaya Rasmussen APRN.DEO RAMIREZ Work Phone: [facility] Comment on above: Refill Request Rx substitution Start: 12-17-2020 End: 12-17-2020 Emergency department patient visit Dev Flannery [facility] ED Bed 06 Start: 12-09-2014 End: 09-18-2019 Patient encounter status Chey Ladd OCTAVIO.QUANTITATIVE ANALYST MARKETING Work Phone: [facility] Procedures Date Procedure Procedure Detail Performing Clinician Start: 04-21-2025 Urnls dip stick/tabl et rgnt auto w/o microscopy Thanh Marrero DO Work Phone: Start: 04-21-2025 Basic metabolic pane l calcium total Thanh Marrero DO Work Phone: Start: 03-06-2025 Us pelvic nonobstetr ic real-time image complete Candice Orozco APRN.CNP Work Phone: Start: 02-11-2025 Ct abdomen & pelvis w/contrast material Rosanna Roberson Ruiz DO Work Phone: Start: 02-11-2025 Comprehensive metabo lic panel Rosanna W Ruiz DO Work Phone: Start: 02-11-2025 Urnls dip stick/tabl et rgnt auto w/o microscopy Rosanna W Ruiz DO Work Phone: Start: 01-29-2025 Us pelvic nonobstetr ic real-time image complete Carmelita Millan MD Work Phone: Start: 11-18-2024 Ct thoracic spine w/ o contrast material Honorio Fisher DO Work Phone: Start: 09-05-2024 RED TOP Wilver Tarango PA-C Work Phone: Start: 06-24-2024 UA DIP,URINE HCG (POC) Carmelita Millan MD Work Phone: Start: 05-27-2024 STREP A MOLECULAR (POC) Maude Bailey FONDANT COOKER.QUANTITATIVE ANALYST MARKETING Work Phone: Start: 05-19-2024 Microscopic observat ion [Identifier] in Cervix by Cyto stain Keaton Tracy MD Work Phone: Start: 04-15-2024 Ct soft tissue neck w/contrast material Wilver Jennifer Morgan FONDANT COOKER-QUANTITATIVE ANALYST MARKETING Work Phone: Start: 04-15-2024 Comprehensive metabo lic panel Wilver Mora FONDANT COOKER-QUANTITATIVE ANALYST MARKETING Work Phone: Start: 11-20-2023 Ecg routine ecg w/le ast 12 lds trcg only w/o i&r Matt Morgan DO Work Phone: Start: 11-06-2023 PULSE OXIMETRY, CONTINUOUS Andrew Atkins DO Work Phone: Start: 11-06-2023 PULSE OXIMETRY, SPOT Elis Narayan MD Work Phone: Start: 10-04-2023 Mri abdomen w/o cont rast material Damaso Jang MD Work Phone: Start: 09-03-2023 INFLUENZA VACCINE, A GE 6 MO - 64 YR, QUADRIVALENT (AFLURIA, FLULAVAL, FLUZONE) Bibi Podlogar FONDANT COOKER.QUANTITATIVE ANALYST MARKETING Work Phone: Start: 09-03-2023 [employer]-Machine Talker COVI D-19 VACCINE ( SEASON) AGE 12+ YR Bibi Podlogar FONDANT COOKER.QUANTITATIVE ANALYST MARKETING Work Phone: Start: 08-26-2023 Ct abdomen & pelvis w/o contrast material Wilver Tarango PA-C Work Phone: Start: 08-26-2023 Comprehensive metabo lic panel Wilver Danielsrobin ROSALES Work Phone: Start: 08-26-2023 Urine test visual color cmprsn meths Wilver Tarango BOBBY Work Phone: Start: 08-26-2023 Urinalysis microscop ic panel - Urine Qualitative by Automated Thanh Marrero DO Work Phone: Start: 08-26-2023 Urnls dip stick/tabl et reagent auto microscopy Thanh Marrero DO Work Phone: Start: 06-04-2023 CT angiography of ch est with contrast Dr. Joe Reeves Work Phone: Start: 06-04-2023 Plain chest X-ray Dr. Jennifer Reeves Work Phone: Start: 06-03-2023 12 lead ECG Start: 06-03-2023 Plain chest X-ray Start: 05-11-2023 Leejudy Cone (Not Applicable) Dr. Joe Reeves Work Phone: Start: 04-16-2023 MRI of lumbar spine Dr. Joe Reeves Work Phone: Start: 03-13-2023 Urnls dip stick/tabl et rgnt auto w/o microscopy Debby Reeves MD Work Phone: Start: 03-08-2023 X-ray of lumbar spin e, two or three views Dr. Joe Reeves Work Phone: Start: 02-16-2023 CT of lumbar spine Dr. Joe Reeves Work Phone: Start: 02-14-2023 Urine test visual color cmprsn meths Debby Reeves MD Work Phone: Start: 02-14-2023 Drug tst prsmv instr mnt chem analyzers pr date Debby Reeves MD Work Phone: Start: 02-14-2023 PAIN PANEL, UR QUANT Ch edwar Reeves MD Work Phone: Start: 02-14-2023 SPECIMEN VALIDITY, URINE Debby Reeves MD Work Phone: Start: 12-27-2022 Microscopic observat ion [Identifier] in Cervix by Cyto stain No Generic Provider Start: 11-15-2022 URINE OB DIP B/O Donnie Melgar FONDANT COOKER.CNM Work Phone: Start: 11-02-2022 URINE OB DIP B/O Dean Bartholomew FONDANT COOKER.CNM Work Phone: Start: 11-02-2022 Us preg uterus after 1st trimest 07/23 gestation Carmelita Millan MD Work Phone: Start: 10-18-2022 URINE OB DIP B/O Linda Millan MD Work Phone: Start: 08-09-2022 URINE OB DIP B/O Dean Bartholomew FONDANT COOKER.CNM Work Phone: Start: 07-27-2022 Iadna nos amplified probe tq each organism Chey Ladd FONDANT COOKER.QUANTITATIVE ANALYST MARKETING Work Phone: Start: 07-27-2022 STREP A MOLECULAR (POC) Stephy Briones FONDANT COOKER.QUANTITATIVE ANALYST MARKETING Work Phone: Start: 07-27-2022 Us preg uterus after 1st trimest 07/23 gestation Sulma Bartholomew FONDANT COOKER.CNM Work Phone: Start: 07-06-2022 URINE OB DIP B/O Dean Bartholomew FONDANT COOKER.CNM Work Phone: Start: 05-24-2022 Us nuchal translucency 1st gestation Sulma Bartholomew APRN.CNM Work Phone: Start: 05-23-2022 URINE OB DIP B/O Vale Briones MD Work Phone: Start: 03-21-2022 Adult depression scr eening assessment Debby Reeves MD Work Phone: Start: 08-02-2021 Adult depression scr eening assessment Amaya Rasmussen FONDANT COOKER.QUANTITATIVE ANALYST MARKETING, DNP Work Phone: Plan of Treatment Date Care Activity Detail Author Start: 2068 RSV High Risk: (Elderly (60+) or Population) (1 - 1-dose 75+ series) RSV High Risk: (Elderly (60+) or Population) (1 - 1-dose 75+ series) [facility] Start: 2068 RSV Vaccine (1 - 1-dose 75+ series) RSV Vaccine (1 - 1-dose 75+ series) [facility] Start: 2053 RSV patients and/or patients aged 60+ years (1 - 1-dose 60+ series) RSV patients and/or patients aged 60+ years (1 - 1-dose 60+ series) [facility] Start: 10-12-2043 Shingles (RZV) Vaccine (1 of 2) Shingles (RZV) Vaccine (1 of 2) [facility] Start: 10-12-2043 Zoster Vaccines (1 of 2) Zoster Vaccines (1 of 2) [facility] Start: 10-18-2032 DTaP/Tdap/Td Vaccines (9 - Td or Tdap) DTaP/Tdap/Td Vaccines (9 - Td or Tdap) [facility] Start: 10-18-2032 Tetanus vaccination Tetanus (Td or Tdap) Booster [facility] Start: 10-18-2032 Urine microalbumin profile [facility] Start: 12-28-2027 Screening for malignant neoplasm of cervix [facility] Start: 05-19-2027 Screening for malignant neoplasm of cervix [facility] Start: 04-21-2026 Diabetes mellitus screening Diabetes Screening [facility] Start: 02-13-2026 Annual PCP Team Chronic Disease Visit Annual PCP Team Chronic Disease Visit [facility] Start: 02-11-2026 Diabetes mellitus screening Diabetes Screening [facility] Start: 12-27-2025 PAP TESTING PAP TESTING [facility] Start: 12-27-2025 Screening for malignant neoplasm of cervix [facility] Start: 11-28-2025 Annual PCP Team Chronic Disease Visit Annual PCP Team Chronic Disease Visit [facility] Start: 08-08-2025 Annual PCP Team Chronic Disease Visit Annual PCP Team Chronic Disease Visit [facility] Start: 05-19-2025 Screening for malignant neoplasm of cervix Cervical Cancer Screening [facility] Start: 04-15-2025 Annual PCP Team Chronic Disease Visit Annual PCP Team Chronic Disease Visit [facility] Start: 03-27-2025 Annual PCP Team Chronic Disease Visit Annual PCP Team Chronic Disease Visit [facility] Start: 03-23-2025 COVID-19 Vaccine ( season) COVID-19 Vaccine () [facility] Start: 03-23-2025 Influenza vaccination [facility] Start: 03-20-2025 End: 03-20-2025 Patient encounter procedure 03/20/2025 2:00 PM EDT Office Visit OB/Gynecology [address] [place], [place] [id number] Carmelita Millan MD [address] [place] [id number] follow up 6 weeks OB/Gynecology Comment on above: follow up 6 weeks Start: 02-13-2025 End: 02-13-2025 ambulatory 02/13/2025 12:00 PM EDT [facility] [address] [address] Keaton Tracy MD [address] [place] [address] Issues with my back Family Medicine Comment on above: Issues with my back Start: 01-29-2025 End: 01-29-2026 US Pelvis PELVIC US [facility] Anc Imaging Routine Pelvic pain in female Expected: 01/29/2025, Expires: 01/29/2026 [facility] Work Phone: Comment on above: Expected: 01/29/2025, Expires: Start: 01-29-2025 End: 01-29-2025 Patient encounter procedure 01/29/2025 10:20 AM EDT Office Visit OB/Gynecology [address] [place], [place] [id number] Carmelita Millan MD [address] [place] [address] Painful intercourse OB/Gynecology Comment on above: Painful intercourse Start: 01-14-2025 End: 01-14-2025 Patient encounter procedure 01/14/2025 9:30 AM EDT Office Visit Pain Management [address] [address] Isidro Pineda MD [address] [facility] [place] [address] low back pain (WebAppointment Request #[id number]) Pain Management Comment on above: low back pain (WebAppointment Request #[id number]) Start: 12-30-2024 End: 12-30-2024 Patient encounter procedure 12/30/2024 3:00 PM EDT Office Visit OB/Gynecology [address] [place] [address] Angela Haq APRN.QUANTITATIVE ANALYST MARKETING [address] [place] [address] prolonged bleeding/ cramping OB/Gynecology Comment on above: prolonged bleeding/ cramping Start: 12-28-2024 PAP TESTING PAP TESTING [facility] Start: 12-10-2024 End: 12-10-2024 ambulatory 12/10/2024 9:00 AM EDT [facility] [address] [address] Andrew Irby PA-C [address] [place] [address] Chronic midline low back pain without sciatica [facility] Comment on above: Chronic midline low back pain without sc iatica Start: 12-06-2024 Annual PCP Team Chronic Disease Visit Annual PCP Team Chronic Disease Visit [facility] Start: 09-27-2024 Annual PCP Team Chronic Disease Visit Annual PCP Team Chronic Disease Visit [facility] Start: 09-20-2024 Annual PCP Team Chronic Disease Visit Annual PCP Team Chronic Disease Visit [facility] Start: 02-12-2025 Annual PCP Team Chronic Disease Visit Annual PCP Team Chronic Disease Visit [facility] Start: 08-31-2024 Annual PCP Team Chronic Disease Visit Annual PCP Team [facility] [facility] Start: 08-08-2024 End: 08-08-2024 [facility] 08/08/2024 11:20 AM EST [facility] Family [facility] [address] [address] Keaton Tracy MD [address] [place] [address] RBBB (Primary Dx); Chronic midline low back pain without sciatica; ADHD (attention deficit hyperactivity disorder), inattentive type; Anxiety with depression; Class 1 obesity due to excess calories without serious comorbidity with body mass index (BMI) of 30.0 to 30.9 in adult; Screening for cervical cancer Family Medicine Comment on above: RBBB (Primary Dx); Chronic midline low back pain without sciatica; ADHD (attention deficit hyperactivity disorder), inattentive type; Anxiety with depression; Class 1 obesity due to excess calories without serious comorbidity with body mass index (BMI) of 30.0 to 30.9 in adult; Screening for cervical cancer Start: 07-31-2024 Diabetes mellitus screening Diabetes Screening [facility] Start: 07-03-2024 Annual PCP Team Chronic Disease Visit Annual PCP Team Chronic Disease Visit [facility] Start: 06-24-2024 End: 06-24-2024 Patient encounter procedure 06/24/2024 3:20 PM EST Office Visit OB/Gynecology [address] [place], [place] [id number] Carmelita Millan MD [address] [place] [address] Colposcopy, EMB/ECC OB/Gynecology Comment on above: Colposcopy, EMB/ECC Start: 06-13-2024 Annual PCP Team Chronic Disease Visit Annual PCP Team Chronic Disease Visit [facility] Start: 06-06-2024 End: 06-06-2024 Patient encounter procedure 06/06/2024 12:00 PM EST Office Visit Cardiology [address] [place] [address] [place] [address] [place], [place] [id number] ED follow up- Palpitations Cardiology Comment on above: ED follow up- Palpitations Start: 06-04-2024 Annual PCP Team Chronic Disease Visit Annual PCP Team Chronic Disease Visit [facility] Start: 04-09-2024 End: 04-09-2024 Patient encounter procedure 04/09/2024 3:40 PM EDT Office Visit OB/Gynecology [address] [place] [address] Carmelita Millan MD [address] [place] [address] IUD removal OB/Gynecology Comment on above: IUD removal Start: 03-23-2024 COVID-19 Vaccine ( season) COVID-19 Vaccine ( season) [facility] Start: 03-23-2024 Covid-19 Vaccine ( season) Covid-19 Vaccine ( season) [facility] Start: 03-23-2024 Influenza vaccination Influenza Vaccine (#1) [facility] Start: 03-21-2024 ANNUAL PCP TEAM CHRONIC DISEASE VISIT ANNUAL PCP TEAM CHRONIC DISEASE VISIT [facility] Start: 03-13-2024 ANNUAL PCP TEAM CHRONIC DISEASE VISIT ANNUAL PCP TEAM CHRONIC DISEASE VISIT [facility] Start: 03-13-2024 COVID-19 Vaccine ( formulation) COVID-19 Vaccine ( formulation) [facility] Start: 03-06-2024 ANNUAL PCP TEAM CHRONIC DISEASE VISIT ANNUAL PCP TEAM CHRONIC DISEASE VISIT [facility] Start: 03-03-2024 ANNUAL PCP TEAM CHRONIC DISEASE VISIT ANNUAL PCP TEAM CHRONIC DISEASE VISIT [facility] Start: 02-15-2024 ANNUAL PCP TEAM CHRONIC DISEASE VISIT ANNUAL PCP TEAM CHRONIC DISEASE VISIT [facility] Start: 02-07-2024 End: 02-07-2024 Patient encounter procedure 02/07/2024 9:00 AM EDT Office Visit Adult Psychiatry [address] [facility] [place] [address] Wai Briones APRN.QUANTITATIVE ANALYST MARKETING [address] [place] [address] ADHD (specifically Panic Disorder), Adult Psychiatry Comment on above: ADHD (specifically Panic Disorder), Start: 01-15-2024 End: 01-15-2024 [facility] 01/15/2024 9:30 AM EDT [facility] Psych[facility] [address] [place] [address] Sumi English MD [address] [facility] [place] [address] Panic Disorder Psychiatry Comment on above: Panic Disorder Start: 12-28-2023 Screening for malignant neoplasm of cervix Cervical Cancer Screening [facility] Start: 12-20-2023 ANNUAL PCP TEAM CHRONIC DISEASE VISIT ANNUAL PCP TEAM CHRONIC DISEASE VISIT [facility] Start: 12-07-2023 End: 12-07-2023 [facility] 12/07/2023 3:20 PM EDT [facility] [address] [place] [address] Keaton Tracy MD [address] [place], [place] [id number] ADHD (attention deficit hyperactivity disorder), inattentive type (Primary Dx); Panic disorder; Anxiety with depression; Migraine with aura, not intractable, without status migrainosus; History of hepatitis C Family Medicine Comment on above: ADHD (attention deficit hyperactivity di sorder), inattentive type (Primary Dx); Panic disorder; Anxiety with depression; Migraine with aura, not intractable, without status migrainosus; History of hepatitis C Start: 11-26-2023 End: 02-25-2024 ALDOSTERONE/DIRECT RENIN RATIO ALDOSTERONE/DIRECT RENIN RATIO Lab Routine Adrenal nodule (HCC) Expected: 11/26/2023, Expires: 02/25/2024 [facility] Work Phone: Comment on above: Expected: 11/26/2023, Expires: Start: 11-26-2023 End: 02-25-2024 Basic metabolic 2000 panel - Serum or Plasma BASIC METABOLIC PANEL Lab Routine Adrenal nodule (HCC) Expected: 11/26/2023, Expires: 02/25/2024 [facility] Comment on above: Expected: 11/26/2023, Expires: Start: 11-26-2023 End: 02-25-2024 METANEPHRINES, FREE PLASMA METANEPHRINES, FREE PLASMA Lab Routine Adrenal nodule (HCC) Expected: 11/26/2023, Expires: 02/25/2024 [facility] Comment on above: Expected: 11/26/2023, Expires: Start: 11-26-2023 End: 11-26-2023 ambulatory 11/26/2023 10:20 AM EDT [facility] [address] [place] [id number] John Braden MD [address] [place], [place] [id number] Cramping of hands [R25.2] Endocrinology Comment on above: Cramping of hands [R25.2] Start: 10-01-2023 End: 10-01-2023 Telemedicine consultation with patient 10/01/2023 8:15 AM EDT Telemedicine [facility] [address] [facility] [address] [place] [address] Dev Narayan MD [address] [place] [address] [facility] Start: 09-24-2023 COVID-19 Vaccine (2 - Pfizer risk series) COVID-19 Vaccine (2 - Pfizer risk series) [facility] Start: 09-24-2023 End: 09-23-2024 XR Abdomen Single view [facility] Service Area Work Phone: Comment on above: Expected: 09/24/2023, Expires: Once for 1 Occurrenc es starting 09/24/2023 until 09/24/2023 Start: 08-29-2023 ANNUAL PCP TEAM CHRONIC DISEASE VISIT ANNUAL PCP TEAM CHRONIC DISEASE VISIT [facility] Start: 08-09-2023 ANNUAL PCP TEAM CHRONIC DISEASE VISIT ANNUAL PCP TEAM CHRONIC DISEASE VISIT [facility] Start: 08-03-2023 ANNUAL PCP TEAM CHRONIC DISEASE VISIT ANNUAL PCP TEAM CHRONIC DISEASE VISIT [facility] Start: 08-03-2023 COVID-19 VACCINE (2 - Pfizer series) COVID-19 VACCINE (2 - Pfizer series) [facility] Comment on above: Postponed from 07/27/2021 (Declined at t his time) Postponed from 08/31 (Declined at this time) Start: 08-03-2023 Urine microalbumin profile DTAP,TDAP,TD (7 - Td or Tdap) [facility] Comment on above: Postponed from 11/14/2017 (Declined at t his time) Start: 07-23-2023 Depression Assessment Depression Assessment [facility] Start: 07-22-2023 DEPRESSION ASSESSMENT DEPRESSION ASSESSMENT [facility] Comment on above: Postponed from 07/23/2022 (Declined at t his time) Start: 07-03-2023 End: 10-02-2023 Comprehensive metabolic 2000 panel - Serum or Plasma COMP METABOLIC PANEL Lab Routine Diabetes mellitus screening Expected: 07/03/2023, Expires: 10/02/2023 [facility] Work Phone: Comment on above: Expected: 07/03/2023, Expires: 4 Start: 07-03-2023 End: 10-02-2023 Hemoglobin A1c in Blood HGB A1C Lab Routine Diabetes mellitus screening Expected: 07/03/2023, Expires: 10/02/2023 [facility] Work Phone: Comment on above: Expected: 07/03/2023, Expires: 4 Start: 07-03-2023 End: 10-02-2023 Lipid 1996 panel - Serum or Plasma LIPID PANEL BASIC Lab Routine Need for lipid screening Expected: 07/03/2023, Expires: 10/02/2023 [facility] Work Phone: Comment on above: Expected: 07/03/2023, Expires: 4 Start: 06-13-2023 End: 09-12-2023 Hemoglobin A1c in Blood HGB A1C Lab Routine Numbness and tingling of right side of face Expected: 06/13/2023, Expires: 09/12/2023 [facility] Work Phone: Comment on above: Expected: 06/13/2023, Expires: 4 Start: 06-13-2023 End: 09-12-2023 Thyrotropin [Units/volume] in Serum or Plasma TSH BLD Lab Routine Anxiety with depression Expected: 06/13/2023, Expires: 09/12/2023 [facility] Work Phone: Comment on above: Expected: 06/13/2023, Expires: 4 Start: 06-05-[address] [facility] Start: 06-04-[address] [facility] Start: 06-04-[address] [facility] Start: 05-31-2023 ANNUAL PCP TEAM CHRONIC DISEASE VISIT ANNUAL PCP TEAM CHRONIC DISEASE VISIT [facility] Start: 05-23-2023 ANNUAL PCP TEAM CHRONIC DISEASE VISIT ANNUAL PCP TEAM CHRONIC DISEASE VISIT [facility] Start: 05-11-2023 Ambulation without limitation [facility] Start: 05-11-2023 Medical regimen orders management [facility] Start: 05-11-[address] [facility] Start: 05-11-[address] [facility] Start: 05-11-2023 Taking patient vital signs [facility] Start: 05-11-2023 Vital signs measurements [facility] Start: 05-11-[address] [facility] Start: 05-11-2023 Anesthesia vaginal procedure w/biopsy nos ANESTH VAGINAL PROCEDURES [facility] Start: 05-11-2023 Insertion intrauterine device iud INSERT INTRAUTERINE DEVICE [facility] Start: 04-19-[address] [facility] Work Phone: Start: 03-23-2023 Covid-19 Vaccine () Covid-19 Vaccine () [facility] Start: 03-23-2023 Influenza vaccination [facility] Start: 03-21-2023 Adult depression screening assessment DEPRESSION SCREENING [facility] Start: 03-21-2023 ANNUAL PCP TEAM CHRONIC DISEASE VISIT ANNUAL PCP TEAM CHRONIC DISEASE VISIT [facility] Start: 02-14-2023 End: 04-16-2023 PAIN PANEL, UR QUANT [facility] Work Phone: Comment on above: Expected: 02/14/2023, Expires: Start: 01-19-2023 Influenza vaccination INFLUENZA (#1) [facility] Comment on above: Postponed from 03/23/2022 (Declined at t his time) Start: 11-25-2022 ANNUAL PCP TEAM CHRONIC DISEASE VISIT ANNUAL PCP TEAM CHRONIC DISEASE VISIT [facility] Start: 11-23-2022 ANNUAL PCP TEAM CHRONIC DISEASE VISIT ANNUAL PCP TEAM CHRONIC DISEASE VISIT [facility] Start: 11-23-[address] [facility] Start: 11-22-2022 Administration of medication [facility] Start: 11-22-2022 Application of ice collar, cap or bag [facility] Start: 11-22-2022 Catheterization of vein [facility] Start: 11-22-2022 Introduction of urinary catheter [facility] Start: 11-22-2022 Measuring intake and output [facility] Start: 11-22-2022 Notification of physician [facility] Start: 11-22-[address] [facility] Start: 11-22-2022 Provision of activity privileges [facility] Start: 11-22-2022 Vital signs measurements [facility] Start: 11-22-[address] [facility] Start: 11-22-[address] [facility] Start: 11-22-[address] [facility] Start: 11-15-[address] [facility] Start: 11-15-[address] [facility] Start: 11-15-2022 Vital signs measurements [facility] Start: 11-15-[address] [facility] Start: 11-15-[address] [facility] Start: 11-08-2022 End: 11-09-2023 OBSTETRIC ULTRASOUND [facility] OBSTETRIC ULTRASOUND [facility] Anc Imaging Routine Diet controlled gestational diabetes mellitus (GDM), antepartum Expected: 11/08/2022, Expires: 11/09/2023 [facility] Work Phone: Comment on above: Expected: 11/08/2022, Expires: 4 Start: 11-06-2022 End: 01-06-2023 Ferritin [Mass/volume] in Serum or Plasma FERRITIN BLD Lab Routine Anemia during in second trimester Expected: 11/06/2022, Expires: 01/06/2023 [facility] Work Phone: Comment on above: Expected: 11/06/2022, Expires: 3 Start: 11-06-2022 End: 01-06-2023 GEST GLUC MARTY, 3-HR, 100 GM, FASTING GEST GLUC MARTY, 3-HR, 100 GM, FASTING Lab Routine Anemia during in second trimester Expected: 11/06/2022, Expires: 01/06/2023 [facility] Work Phone: Comment on above: Expected: 11/06/2022, Expires: 3 Start: 11-06-2022 End: 01-06-2023 Iron and Iron binding capacity panel - Serum or Plasma IRON + TIBC Lab Routine Anemia during in second trimester Expected: 11/06/2022, Expires: 01/06/2023 [facility] Work Phone: Comment on above: Expected: 11/06/2022, Expires: 3 Start: 11-02-2022 End: 01-02-2023 GEST GLUC MARTY, 3-HR, 100 GM, FASTING GEST GLUC MARTY, 3-HR, 100 GM, FASTING Lab Routine Abnormal glucose complicating Expected: 11/02/2022, Expires: 01/02/2023 [facility] Work Phone: Comment on above: Expected: 11/02/2022, Expires: 3 Start: 10-28-[address] [facility] Start: 10-28-[address] [facility] Start: 10-28-2022 Vital signs measurements [facility] Start: 10-28-[address] [facility] Start: 10-28-[address] [facility] Start: 10-18-2022 End: 12-18-2022 Hepatitis C virus Ab [Presence] in Serum HEP C AB IA W/CONF SCRN Lab Routine 34 weeks gestation of Limited care in third trimester Supervision of other high risk pregnancies, third trimester Expected: 10/18/2022, Expires: 12/18/2022 [facility] Work Phone: Comment on above: Expected: 10/18/2022, Expires: 3 Start: 10-18-2022 End: 12-18-2022 HIV 1+2 Ab [Presence] in Serum or Plasma by Immunoassay HIV 1 2 COMBO(AG/AB),WITH REFLEX TO DIFFERENTIATION Lab Routine 34 weeks gestation of Limited care in third trimester Supervision of other high risk pregnancies, third trimester Expected: 10/18/2022, Expires: 12/18/2022 [facility] Work Phone: Comment on above: Expected: 10/18/2022, Expires: Start: 10-18-2022 End: 10-19-2023 OBSTETRIC ULTRASOUND [facility] OBSTETRIC ULTRASOUND [facility] Anc Imaging Routine 34 weeks gestation of Limited care in third trimester Supervision of other high risk pregnancies, third trimester Size of fetus inconsistent with dates in third trimester Expected: 10/18/2022, Expires: 10/19/2023 [facility] Work Phone: Comment on above: Expected: 10/18/2022, Expires: 4 Start: 09-18-2022 PAP TESTING PAP TESTING [facility] Start: 09-09-2022 End: 11-09-2022 CBC W Auto Differential panel - Blood CBC + DIFF Lab Routine 24 weeks gestation of Encounter for supervision of other normal in second trimester Expected: 09/09/2022 (Approximate), Expires: 11/09/2022 [facility] Work Phone: Comment on above: Expected: 09/09/2022 (Approximate), Expi res: 11/09/2022 Start: 09-09-2022 End: 11-09-2022 GEST GLUC SCREEN, 1-HR, 50 GM, NON-FASTING GEST GLUC SCREEN, 1-HR, 50 GM, NON-FASTING Lab Routine 24 weeks gestation of Encounter for supervision of other normal in second trimester Expected: 09/09/2022 (Approximate), Expires: 11/09/2022 [facility] Work Phone: Comment on above: Expected: 09/09/2022 (Approximate), Expi res: 11/09/2022 Start: 09-09-2022 End: 11-09-2022 SYPHILIS TOTAL W/REFLEX SYPHILIS TOTAL W/REFLEX Lab Routine 24 weeks gestation of Encounter for supervision of other normal in second trimester Expected: 09/09/2022 (Approximate), Expires: 11/09/2022 [facility] Work Phone: Comment on above: Expected: 09/09/2022 (Approximate), Expi res: 11/09/2022 Start: 08-12-2022 End: 10-12-2022 Hepatitis B virus surface Ag [Presence] in Serum HEP B SURF AG SCRN Lab Routine Accident caused by hypodermic needle, initial encounter 24 weeks gestation of Expected: 08/12/2022, Expires: 10/12/2022 [facility] Work Phone: Comment on above: Expected: 08/12/2022, Expires: 3 Start: 08-12-2022 End: 10-12-2022 Hepatitis C virus Ab [Presence] in Serum HEP C AB IA W/CONF SCRN Lab Routine Accident caused by hypodermic needle, initial encounter 24 weeks gestation of Expected: 08/12/2022, Expires: 10/12/2022 [facility] Work Phone: Comment on above: Expected: 08/12/2022, Expires: 3 Start: 08-12-2022 End: 10-12-2022 Hepatitis C virus RNA [Units/volume] (viral load) in Serum or Plasma by JESSICA with probe detection HCV QUANT RNA BY PCR Lab Routine Accident caused by hypodermic needle, initial encounter 24 weeks gestation of Expected: 08/12/2022, Expires: 10/12/2022 [facility] Work Phone: Comment on above: Expected: 08/12/2022, Expires: 3 Start: 08-12-2022 End: 10-12-2022 HIV 1+2 Ab [Presence] in Serum or Plasma by Immunoassay HIV 1 2 COMBO(AG/AB),WITH REFLEX TO DIFFERENTIATION Lab Routine Accident caused by hypodermic needle, initial encounter 24 weeks gestation of Expected: 08/12/2022, Expires: 10/12/2022 [facility] Work Phone: Comment on above: Expected: 08/12/2022, Expires: 3 Start: 08-04-2022 ANNUAL PCP TEAM CHRONIC DISEASE VISIT ANNUAL PCP TEAM CHRONIC DISEASE VISIT [facility] Start: 08-02-2022 Adult depression screening assessment DEPRESSION SCREENING [facility] Start: 07-23-2022 DEPRESSION ASSESSMENT DEPRESSION ASSESSMENT [facility] Start: 07-06-2022 End: 09-05-2022 ALPHA FETOPRO MATERNAL [facility] Work Phone: Comment on above: Expected: 07/06/2022, Expires: 3 Start: 06-23-2022 End: 07-07-2022 Influenza virus A and B RNA and SARS-CoV-2 (COVID-19) N gene panel - Respiratory specimen by JESSICA with probe detection COVID WITH FLUA+B, ROUTINE Microbiology Routine Viral illness Expected: 06/23/2022, Expires: 07/07/2022 [facility] Work Phone: Comment on above: Expected: 06/23/2022, Expires: 2 Start: 04-26-2022 End: 06-26-2022 Chromosome 21 trisomy [Presence] in Blood or Tissue by Cytogenetics [id number] PLUS Lab Routine Encounter for supervision of other normal in first trimester Expected: 04/26/2022, Expires: 06/26/2022 [facility] Work Phone: Comment on above: Expected: 04/26/2022, Expires: 2 Start: 04-06-2022 End: 06-06-2022 Choriogonadotropin.beta subunit [Units/volume] in Serum or Plasma HCG QUANTITATIVE Lab Routine Threatened Expected: 04/06/2022, Expires: 06/06/2022 [facility] Work Phone: Comment on above: Expected: 04/06/2022, Expires: 2 Start: 04-04-2022 End: 06-04-2022 Choriogonadotropin.beta subunit [Units/volume] in Serum or Plasma HCG QUANTITATIVE Lab Routine Threatened Expected: 04/04/2022, Expires: 06/04/2022 [facility] Work Phone: Comment on above: Expected: 04/04/2022, Expires: 2 Start: 03-23-2022 Influenza vaccination INFLUENZA (#1) [facility] Start: 03-21-2022 End: 05-21-2022 25-hydroxyvitamin D3 [Mass/volume] in Serum or Plasma VITAMIN D 25 HYDROXY Lab Routine at early stage Anxiety with depression Expected: 03/21/2022, Expires: 05/21/2022 [facility] Work Phone: Comment on above: Expected: 03/21/2022, Expires: 2 Start: 03-21-2022 End: 05-21-2022 CBC panel - Blood by Automated count CBC Lab Routine at early stage Expected: 03/21/2022, Expires: 05/21/2022 [facility] Work Phone: Comment on above: Expected: 03/21/2022, Expires: 2 Start: 03-21-2022 End: 05-21-2022 Choriogonadotropin.beta subunit [Units/volume] in Serum or Plasma HCG QUANTITATIVE Lab Routine at early stage Expected: 03/21/2022, Expires: 05/21/2022 [facility] Work Phone: Comment on above: Expected: 03/21/2022, Expires: 2 Start: 03-21-2022 End: 05-21-2022 Cobalamin (Vitamin B12) [Mass/volume] in Serum or Plasma VITAMIN B12 BLOOD Lab Routine at early stage Anxiety with depression Expected: 03/21/2022, Expires: 05/21/2022 [facility] Work Phone: Comment on above: Expected: 03/21/2022, Expires: 2 Start: 03-21-2022 End: 05-21-2022 Comprehensive metabolic 2000 panel - Serum or Plasma COMP METABOLIC PANEL Lab Routine at early stage Expected: 03/21/2022, Expires: 05/21/2022 [facility] Work Phone: Comment on above: Expected: 03/21/2022, Expires: 2 Start: 03-21-2022 End: 05-21-2022 Thyrotropin [Units/volume] in Serum or Plasma TSH BLD Lab Routine at early stage Anxiety with depression Expected: 03/21/2022, Expires: 05/21/2022 [facility] Work Phone: Comment on above: Expected: 03/21/2022, Expires: 2 Start: 03-21-2022 End: 05-21-2022 Thyroxine (T4) free [Mass/volume] in Serum or Plasma T4 FREE/FREE THYROX Lab Routine at early stage Anxiety with depression Expected: 03/21/2022, Expires: 05/21/2022 [facility] Work Phone: Comment on above: Expected: 03/21/2022, Expires: 2 Start: 01-19-2022 End: 03-21-2022 Microscopic observation [Identifier] in Vaginal fluid by Gram stain [facility] Work Phone: Comment on above: Expected: 01/19/2022, Expires: 2 Start: 11-23-2021 End: 01-23-2022 PAIN PANEL, UR QUANT PAIN PANEL, UR QUANT Lab Routine Attention deficit hyperactivity disorder (ADHD), predominantly inattentive type Expected: 11/23/2021, Expires: 01/23/2022 [facility] Work Phone: Comment on above: Expected: 11/23/2021, Expires: 2 Start: 11-23-2021 End: 01-23-2022 TOX SCREEN ROUT UR TOX SCREEN ROUT UR Lab Routine Attention deficit hyperactivity disorder (ADHD), predominantly inattentive type Expected: 11/23/2021, Expires: 01/23/2022 [facility] Work Phone: Comment on above: Expected: 11/23/2021, Expires: 2 Start: 07-27-2021 COVID-19 VACCINE (2 - Pfizer 3-dose series) COVID-19 VACCINE (2 - Pfizer 3-dose series) [facility] Start: 07-27-2021 COVID-19 VACCINE (2 - Pfizer series) COVID-19 VACCINE (2 - Pfizer series) [facility] Start: 07-23-2021 DEPRESSION ASSESSMENT DEPRESSION ASSESSMENT [facility] Start: 11-14-2017 Urine microalbumin profile DTAP,TDAP,TD (7 - Td or Tdap) [facility] Start: 2014 Screening for malignant neoplasm of cervix HPV/Cotest [facility] Start: 2012 Hepatitis B vaccination Hepatitis B (HBV) Vaccine (1 of 3 - 19+ 3-dose series) [facility] Start: 2012 ONE PNEUMOVAX PRIOR TO AGE 65 ONE PNEUMOVAX PRIOR TO AGE 65 [facility] Start: 2012 Pneumococcal Vaccine: Pediatrics and At-Risk Adult Patients (1 of 2 - PCV) Pneumococcal Vaccine: Pediatrics and At-Risk Adult Patients (1 of 2 - PCV) [facility] Start: 10-12-2011 Anxiety Screening Anxiety Screening [facility]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 Phone: 04-10-2024 Functional Status Assistive Device None [facility] 04-10-2024 Functional Status Standard Safet y ID band on, Allergy Band on, Call device within reach, Bed in low position, Wheels locked, personal items within reach, Bedside Cart Locked [facility] 03-24-2024 Functional Status ID band on, Call device within reach, Bed in low position [facility] 03-24-2024 Functional Status [facility] 03-16-2024 Functional Status bilateral knee high removed/off [facility] 03-16-2024 Functional Status Room check performed [facility] 03-16-2024 Functional Status [facility] 03-16-2024 Functional Status [facility] 03-15-2024 Functional Status [facility] 03-15-2024 Functional Status [facility] 03-15-2024 Functional Status [facility] 03-15-2024 Functional Status Identification band [facility] 03-15-2024 Functional Status Maintained [facility] 03-15-2024 Functional Status [facility] 03-15-2024 Functional Status Nurse Safety C hecks q2hrs Performed 3am-7am [facility] 03-14-2024 Functional Status [facility] 03-14-2024 Functional Status [facility] 03-14-2024 Functional Status Standard Safet y ID band on, Allergy Band on, Call device within reach, Bed in low position, Wheels locked, Upper/Half-Length side-rails up, Bedside Cart Locked, Safety level maintained [facility] 04-03-2022 Functional Status Standard Safet y ID band on, Call device within reach, Bed in low position, Wheels locked, Upper/Half-Length side-rails up, Bedside Cart Locked, Safety level maintained [facility] 04-28-2020 Are you deaf, or do you have serious difficulty hearing No 04/28/2020 4:30 PM EDT Matt Stark RN No [facility] 04-28-2020 Are you blind, or do you have serious difficulty seeing, even when wearing glasses No 04/28/2020 4:30 PM EDT Matt Stark RN [facility] 04-28-2020 Do you have serious difficulty walking or climbing stairs No 04/28/2020 4:30 PM EDT Matt Stark RN No [facility] 04-28-2020 Do you have difficul ty dressing or bathing No 04/28/2020 4:30 PM EDT Matt Stark RN No [facility] 04-28-2020 Because of a physica l, mental, or emotional condition, do you have difficulty doing errands alone such as visiting a physician's office or shopping No 04/28/2020 4:30 PM EDT Matt Stark RN No [facility] Mental Status Date Assessment Result Facility 04-10-2024 Mental Status Orientation Oriented x 4 [facility] 04-10-2024 Mental Status [facility] 03-24-2024 Mental Status Orientation Oriented x 4 [facility] 03-24-2024 Mental Status [facility] 03-16-2024 Mental Status Oriented x 4 [facility] 03-15-2024 Mental Status [facility] 03-15-2024 Mental Status [facility] 03-14-2024 Mental Status Orientation Oriented x 4 [facility] 06-04-2023 Cognitive function Voice/Name [facility] Work Phone: 05-11-2023 Cognitive function Level Of Cons ciousness Awake;Alert;Appropriate;Fol lows Commands [facility] Work Phone: 05-02-2022 Cognitive function Level Of Cons ciousness Awake;Alert;Appropriate;Fol lows Commands [facility] Work Phone: 04-03-2022 Mental Status Orientation Oriented x 4 [facility] 04-28-2020 Because of a physica l, mental, or emotional condition, do you have serious difficulty concentrating, remembering, or making decisions No 04/28/2020 4:30 PM EDT Matt Stark RN No [facility] Clinical Notes 04-27-2020 to 03-30-2025 Carmelita Millan MD - 03/30/2025 1:14 PM EDTPatient InstructionsTelephone Encounter - Tri Alonzo RN - 03/11/2025 3:10 PM EDTTelephone Encounter - Tri Alonzo RN - 03/11/2025 3:10 PM EDT Note Date & Type Note Facility 03-30-2025 Note HNO ID: [id number] Author: CARMELITA MILLAN MD Service: ? Author Type: Physician Type: Progress Notes Filed: 03/30/2025 13:27 Note Text: Fadumo Hensley is a 29 year old female who presents for problem visit for discussion of . HPI: 29 YOF w/ Patient's last menstrual period was 01/27/2025 (exact date). Presents for f/u to discuss options and anxiety/mood. Has been out of lamictal for a couple of days and is out of refills and feeling very indecisive and a lot of anxiety. Unplanned . Has mixed feelings on termination vs continuing . Family is supportive. OB History Gravida3 Para2 Term2 Preterm0 AB0 Living2 SAB0 IAB0 Ectopic0 Multiple0 Live Births2 Communications Clerk History LMP: 01/27/2025 (Exact Date), Age at Menarche: Age at First : Age at Menopause: Communications Clerk History Comments: Sexual Activity: Yes; Male Contraception: No contraception data on record PAST MEDICAL HISTORY Diagnosis Date Appendicitis ASCUS with positive high risk HPV cervical 09/26/2019 Asthma (HCC) 11/29/2011 ATTN DEFICIT NONHYPERACT 11/27/2007 Atypical glandular cells of undetermined significance (ZENA) on cervical Pap smear 05/19/2024 Bulging of intervertebral disc between L4 and L5 and L5 and S1 09/07/2015 Chest pain 04/29/2010 Chlamydia infection 09/23/2013 Depression 05/26/2011 Depression complicating , antepartum (HCC) 08/02/2012 Diet controlled gestational diabetes mellitus (GDM) in second trimester ([facility]) 11/08/2022 11/08/22- 2 levels out of 3 elevated. Supplies and referrals ordered. Sulma Bartholomew APRN.CNM Generalized anxiety disorder GERD (gastroesophageal reflux disease) Hepatitis C 2017 2018 cured after medication course. High grade squamous intraepithelial cervical dysplasia History of suicide attempt 2014 cutting wrist Juvenile osteochondrosis of lower extremity, excluding foot 2004, resolved Kidney stones Migraine headache 05/26/2011 other Sever's Disease, 2006, resolved Other acne 01/27/2010 Pain in joint, site unspecified AC joint tear, 2005 Patient requested diagnostic testing 04/18/2012 04/18/2012 Patient desires early screening in with sequential testing. Poor support system complicating ([facility]) 04/18/2012 04/18/2012The father of the baby is aware that she is , but does not wish to be involved. Patient states her parents are very supportive. Patient is tearful for some of this visit today due to the father of the baby. She states he has put pressure on her in the past to have an , but she does not wish to do that. Patient was given a brochure on the care center and [place]. depression PTSD (post-traumatic stress disorder) Rosacea 01/27/2010 Rubella non-immune status 04/22/2012 Skin cancer Teen 04/22/2012 July 04, 2012 Flu vaccine given Telangiectasia 01/27/2010 Tobacco use disorder PAST SURGICAL HISTORY Procedure Laterality Date APPENDECTOMY CERVIX UTERI CONIZA LP ELCTRO EXCI 05/11/2023 at [facility]Dr. Millan PAST SURGICAL HISTORY OF 01/01/2010 Removal of 4 Mereta Teeth PAST SURGICAL HISTORY OF basal cell carcinoma removed from scalp FAMILY HISTORY Problem Relation Age of Onset Skin Cancer Mother Hypertension Mother Heart Failure Mother Liver Cancer Mother 66 Heart Father TRIPLE BYPASS SURGERY Hypertension Father Diabetes Father Diabetes Sister No Known Problems Sister No Known Problems Sister No Known Problems Brother No Known Problems Brother No Known Problems Brother Heart Maternal Grandmother from heart problems Heart Maternal Grandfather from heart problems Cancer Maternal Grandfather lung Hypertension Maternal Grandfather No Known Problems Daughter SOCIAL HISTORY[1] Current Outpatient Medications Medication Sig prental multivitamin ( VITAMIN) 27 mg iron- 800 mcg tablet Take 1 tablet by mouth once daily. prochlorperazine (COMPAZINE) 10 mg tablet Take 1 tablet by mouth every 8 hours as needed for nausea/vomiting. LORazepam (ATIVAN) 0.5 mg Take 0.25 mg by mouth as needed (panic attacj). acetaminophen (TYLENOL 8 HOUR) 650 mg CR tablet Take 1 tablet by mouth every 8 hours as needed. cloNIDine HCl (CATAPRES) 0.1 mg tablet Take 1 tablet by mouth once daily as needed (Anxiety). lamoTRIgine (LAMICTAL) 25 mg tablet Take 2 tablets by mouth once daily. tiZANidine (ZANAFLEX) 4 mg tablet Take 1/2 - 1 tablet oral Three times a day , PRN as needed for 30 Days SUMAtriptan (IMITREX) 100 mg tablet Take 1 tablet (100 mg) by mouth as needed. TAKE ONE (1) TABLET EVERY 2 HOURS WITH A MAXIMUM DOSE OF 200 MG PER DAY NEEDED FOR HEADACHE lisdexamfetamine (VYVANSE) 40 mg capsule Take 1 capsule by mouth once daily for 30 days. (Patient not taking: Reported on 03/26/2025) No current facility-administered medications for this visit. Allergies As of Da (more content not included)... [facility] 03-30-2025 History of Present illness Narrative Fadumo Hensley is a 29 year old female who presents for problem visit for discussion of . HPI: 29 YOF w/ Patient's last menstrual period was 01/27/2025 (exact date). Presents for f/u to discuss options and anxiety/mood. Has been out of lamictal for a couple of days and is out of refills and feeling very indecisive and a lot of anxiety. Unplanned . Has mixed feelings on termination vs continuing . Family is supportive. OB History Gravida3 Para2 Term2 Preterm0 AB0 Living2 SAB0 IAB0 Ectopic0 Multiple0 Live Births2 Communications Clerk History LMP: 01/27/2025 (Exact Date), Age at Menarche: Age at First : Age at Menopause: Communications Clerk History Comments: Sexual Activity: Yes; Male Contraception: No contraception data on record PAST MEDICAL HISTORY Diagnosis Date Appendicitis ASCUS with positive high risk HPV cervical 09/26/2019 Asthma (HCC) 11/29/2011 ATTN DEFICIT NONHYPERACT 11/27/2007 Atypical glandular cells of undetermined significance (ZENA) on cervical Pap smear 05/19/2024 Bulging of intervertebral disc between L4 and L5 and L5 and S1 09/07/2015 Chest pain 04/29/2010 Chlamydia infection 09/23/2013 Depression 05/26/2011 Depression complicating , antepartum (HCC) 08/02/2012 Diet controlled gestational diabetes mellitus (GDM) in second trimester ([facility]) 11/08/2022 11/08/22- 2 levels out of 3 elevated. Supplies and referrals ordered. Sulma Bartholomew APRN.JULISSA Generalized anxiety disorder GERD (gastroesophageal reflux disease) Hepatitis C 2017 2018 cured after medication course. High grade squamous intraepithelial cervical dysplasia History of suicide attempt 2015 cutting wrist Juvenile osteochondrosis of lower extremity, excluding foot 2004, resolved Kidney stones Migraine headache 05/26/2011 other Sever's Disease, 2006, resolved Other acne 01/27/2010 Pain in joint, site unspecified AC joint tear, 2005 Patient requested diagnostic testing 04/18/2012 04/18/2012 Patient desires early screening in with sequential testing. Poor support system complicating (HCC) 04/18/2012 04/18/2012The father of the baby is aware that she is , but does not wish to be involved. Patient states her parents are very supportive. Patient is tearful for some of this visit today due to the father of the baby. She states he has put pressure on her in the past to have an , but she does not wish to do that. Patient was given a brochure on the care center and WIC. depression PTSD (post-traumatic stress disorder) Rosacea 01/27/2010 Rubella non-immune status 04/22/2012 Skin cancer Teen 04/22/2012 July 04, 2012 Flu vaccine given Telangiectasia 01/27/2010 Tobacco use disorder PAST SURGICAL HISTORY Procedure Laterality Date APPENDECTOMY CERVIX UTERI MYAH MORROW ELCTRO EXCI 05/11/2023 at [facility]Dr. Millan PAST SURGICAL HISTORY OF 01/01/2010 Removal of 4 Mereta Teeth PAST SURGICAL HISTORY OF basal cell carcinoma removed from scalp FAMILY HISTORY Problem Relation Age of Onset Skin Cancer Mother Hypertension Mother Heart Failure Mother Liver Cancer Mother 66 Heart Father TRIPLE BYPASS SURGERY Hypertension Father Diabetes Father Diabetes Sister No Known Problems Sister No Known Problems Sister No Known Problems Brother No Known Problems Brother No Known Problems Brother Heart Maternal Grandmother from heart problems Heart Maternal Grandfather from heart problems Cancer Maternal Grandfather lung Hypertension Maternal Grandfather No Known Problems Daughter SOCIAL HISTORY[1] Current Outpatient Medications Medication Sig prental multivitamin ( VITAMIN) 27 mg iron- 800 mcg tablet Take 1 tablet by mouth once daily. prochlorperazine (COMPAZINE) 10 mg tablet Take 1 tablet by mouth every 8 hours as needed for nausea/vomiting. LORazepam (ATIVAN) 0.5 mg Take 0.25 mg by mouth as needed (panic attacj). acetaminophen (TYLENOL 8 HOUR) 650 mg CR tablet Take 1 tablet by mouth every 8 hours as needed. cloNIDine HCl (CATAPRES) 0.1 mg tablet Take 1 tablet by mouth once daily as needed (Anxiety). lamoTRIgine (LAMICTAL) 25 mg tablet Take 2 tablets by mouth once daily. tiZANidine (ZANAFLEX) 4 mg tablet Take 1/2 - 1 tablet oral Three times a day , PRN as needed for 30 Days SUMAtriptan (IMITREX) 100 mg tablet Take 1 tablet (100 mg) by mouth as needed. TAKE ONE (1) TABLET EVERY 2 HOURS WITH A MAXIMUM DOSE OF 200 MG PER DAY NEEDED FOR HEADACHE lisdexamfetamine (VYVANSE) 40 mg capsule Take 1 capsule by mouth once daily for 30 days. (Patient not taking: Reported on 03/26/2025) No current facility-administered medications for this visit. Allergies As of Date: 03/26/2025 Allergen Noted Reaction ZYRTEC [CETIRIZINE HCL] 05/08/2006 Intolerance Fully Assessed 03/26/2025 RAllergies and current medication updated:Yes SENSITIVE EXAM: The sensitive examination was discussed with the Patient or Patient's Authorized [employer] [place] Clerk. As applicable, any other physician, advance practice provider, medical student, or other health professional student that will be observing or involved in the sensitive examination for educational or training purposes was discussed with the Patient or Authorized [employer] [place] Clerk. The Patient or Authorized [employer] [place] Clerk has agreed to proceed with the sensitive examination. (Sensitive examination includes inspection and/or palpation of the breasts, pelvis, prostate and anorectal regions). EXAM: BP 108/64 Wt 184 lb (83.5kg) LMP 01/27/2025 GENERAL: pleasant, female in mild distress normal external genitalia and brief TVUS done shows IUP 8 week size with cardiac activity ASSESSMENT AND PLAN: Assessment & Plan Anxiety neurosis Attention deficit hyperactivity disorder (ADHD), combined type refill of lamictal until sees psychiatry. Unplanned (HCC) resource list given and d/w her call office to call or return if desires to continue . Carmelita Millan MD [1] Social History Tobacco Use Smoking status: Former Current packs/day: 1.00 Average packs/day: 1 pack/day for 9.0 years (9.0 ttl pk-yrs) Types: Cigarettes Smokeless tobacco: Current Tobacco comments: Vapes Vaping Use Vaping status: current everyday user Substances: Nicotine Devices: Pre-filled or refillable cartridge Substance Use Topics Alcohol use: Not Currently Drug use: Not Currently Types: Heroin, Marijuana Comment: Patient states I have used multiple drugs in the past documented in this encounter [facility] 03-26-2025 Aliyah Kramer RN - 03/26/2025 3:42 PM EDT Thank you for your question about termination. If you believe you have a serious medical condition which makes in-hospital medically necessary, please contact your OBGYN or PCP office to discuss this further. You may also visit [email or web address] or contact the [facility] referral line at [email or web address] and to find the closest provider based on your estimated length. [phone] [place] [address] [email or web address] [facility]- Online scheduling available [email or web address] [facility] Complex family planning call [phone] or [email or web address]\ail [email or web address] documented in this encounter [facility] 03-11-2025 Telephone encounter Note Pt saw EH 02/27/25 for + . Pelvic US completed 03/06/25-see report LMP 01/27/25 6w1d Pt calls stating she has a lot of health issues and would like to discuss with provider whether this + is something that she is able to continue. Appt scheduled with 03/17 to discuss. Tri Alonzo RN [facility] 03-11-2025 Miscellaneous Notes Pt saw EH 02/27/25 for + . Pelvic US completed 03/06/25-see report LMP 01/27/25 6w1d Pt calls stating she has a lot of health issues and would like to discuss with provider whether this + is something that she is able to continue. Appt scheduled with 03/17 to discuss. Tri Clinton, RN documented in this encounter [facility] 03-09-2025 Note HNO ID: [id number] Author: DAY PEÑA MD Service: ? Author Type: Physician Type: Progress Notes Filed: 03/09/2025 13:22 Note Text: Fadumo Hensley is a 29 year old female who presented for mix house tender ultrasound today. Encounter Diagnosis ICD-10-CM 1. Encounter for test, result positive (HCC) Z32.01 Please see report under imaging tab. Day Peña MD March 09, 2025 1:10 PM [facility] 03-09-2025 History of Present illness Narrative Fadumo Hensley is a 29 year old female who presented for mix house tender ultrasound today. Encounter Diagnosis ICD-10-CM 1. Encounter for test, result positive (HCC) Z32.01 Please see report under imaging tab. Day Peña MD March 09, 2025 1:10 PM documented in this encounter [facility] 02-27-2025 Note HNO ID: [id number] Author: CANDICE OROZCO APRN.QUANTITATIVE ANALYST MARKETING Service: ? Author Type: Nurse Practitioner Type: Progress Notes Filed: 02/27/2025 15:48 Note Text: Fadumo Hensley is a 29 year old female who presents for problem visit positive test at home on 01/24/2025. HPI: Fadumo is here for confirmation of early . Had positive UPT on 01/24. Saw our office on 01/29 for pelvic pain and was prescribed Doxycyline and was advised to restart NuvaRing. Did not mention + UPT on this day per notes. Had light menses on 01/27/25. Was using NuvaRing for control, but states that she left it out for too long. unplanned. Unsure about continuing the . OB History Gravida2 Para2 Term2 Preterm0 AB0 Living2 SAB0 IAB0 Ectopic0 Multiple0 Live Births2 Communications Clerk History LMP: 01/27/2025 (Exact Date), Having periods Age at Menarche: Age at First : Age at Menopause: Communications Clerk History Comments: Sexual Activity: Yes; Male Contraception: No contraception data on record PAST MEDICAL HISTORY Diagnosis Date Appendicitis ASCUS with positive high risk HPV cervical 09/26/2019 Asthma (HCC) 11/29/2011 ATTN DEFICIT NONHYPERACT 11/27/2007 Atypical glandular cells of undetermined significance (ZENA) on cervical Pap smear 05/19/2024 Bulging of intervertebral disc between L4 and L5 and L5 and S1 09/07/2015 Chest pain 04/29/2010 Chlamydia infection 09/23/2013 Depression 05/26/2011 Depression complicating , antepartum ([facility]) 08/02/2012 Diet controlled gestational diabetes mellitus (GDM) in second trimester ([facility]) 11/08/2022 11/08/22- 2 levels out of 3 elevated. Supplies and referrals ordered. Sulam Bartholomew APRN.CNM Generalized anxiety disorder GERD (gastroesophageal reflux disease) Hepatitis C 2017 2018 cured after medication course. High grade squamous intraepithelial cervical dysplasia History of suicide attempt 2014 cutting wrist Juvenile osteochondrosis of lower extremity, excluding foot 2004, resolved Kidney stones Migraine headache 05/26/2011 other Sever's Disease, 2006, resolved Other acne 01/27/2010 Pain in joint, site unspecified AC joint tear, 2005 Patient requested diagnostic testing 04/18/2012 04/18/2012 Patient desires early screening in with sequential testing. Poor support system complicating ([facility]) 04/18/2012 04/18/2012The father of the baby is aware that she is , but does not wish to be involved. Patient states her parents are very supportive. Patient is tearful for some of this visit today due to the father of the baby. She states he has put pressure on her in the past to have an , but she does not wish to do that. Patient was given a brochure on the care center and WIC. depression PTSD (post-traumatic stress disorder) Rosacea 01/27/2010 Rubella non-immune status 04/22/2012 Skin cancer Teen 04/22/2012 July 04, 2012 Flu vaccine given Telangiectasia 01/27/2010 Tobacco use disorder PAST SURGICAL HISTORY Procedure Laterality Date APPENDECTOMY CERVIX UTERI CONIZA LP ELCTRO EXCI 05/11/2023 at [facility]Dr. Millan PAST SURGICAL HISTORY OF 01/01/2010 Removal of 4 Mereta Teeth PAST SURGICAL HISTORY OF basal cell carcinoma removed from scalp FAMILY HISTORY Problem Relation Age of Onset Skin Cancer Mother Hypertension Mother Heart Failure Mother Liver Cancer Mother 66 Heart Father TRIPLE BYPASS SURGERY Hypertension Father Diabetes Father Diabetes Sister No Known Problems Sister No Known Problems Sister No Known Problems Brother No Known Problems Brother No Known Problems Brother Heart Maternal Grandmother from heart problems Heart Maternal Grandfather from heart problems Cancer Maternal Grandfather lung Hypertension Maternal Grandfather No Known Problems Daughter Social History Tobacco Use Smoking status: Former Current packs/day: 1.00 Average packs/day: 1 pack/day for 9.0 years (9.0 ttl pk-yrs) Types: Cigarettes Smokeless tobacco: Current Tobacco comments: Vapes Vaping Use Vaping status: current everyday user Substances: Nicotine Devices: Pre-filled or refillable cartridge Substance Use Topics Alcohol use: Not Currently Drug use: Not Currently Types: Heroin, Marijuana Comment: Patient states I have used multiple drugs in the past Current Outpatient Medications Medication Sig lamoTRIgine (LAMICTAL) 25 mg tablet Take 2 tablets by mouth once daily. naproxen (NAPROSYN) 375 mg tablet Take 1 tablet by mouth three times a day as needed (pain). tiZANidine (ZANAFLEX) 4 mg tablet Take 1/2 - 1 tablet oral Three times a day , PRN as needed for 30 Days prochlorperazine (COMPAZINE) 10 mg tablet Take 1 tablet by mouth every 8 hours as needed for nausea/vomiting. SUMAtriptan (IMITREX) 100 mg tablet Take 1 tablet (100 mg) by mouth as needed. TAKE ONE (1) TABLET EVERY (more content not included)... [facility] 02-13-2025 Note HNO ID: [id number] Author: KEATON TRACY MD Service: ? Author Type: Physician Type: Progress Notes Filed: 02/13/2025 13:09 Note Text: Telemedicine Visit - Distance Health Virtual Visit Note Patient seen on ilustrum video visit platform. Location of patient: [place] I have communicated my name and active licensure. The patient's identity and physical location were verified at the time of this visit. Either the patient or their legal artist representative has been informed of the risks and benefits of -- and alternatives to -- treatment through a remote evaluation and consents to proceed with the evaluation remotely. History of Present Illness 29 yo F presenting for f/u Seen by research recruiter on 01/29 for pelvic discomfort - Like a bowling ball was sitting in pelvis. US showed a hemorrhagic (R) ovarian cyst. Prescribed Doxy for possible infection. Had worsening and seen in ER with lower abdominal pain and diarrhea. CT revealed an ovarian cyst on the (L) and mildly prominent RLQ nodes. Patient reports no pelvic exam in ER. There is a h/o adrenal adenoma, but no mention of adrenal mass on CT. Continues to have diarrhea, no improvement. No blood. No improvement of pain, but no worsening - Pain is felt more in the RLQ. No nausea/vomiting. No fevers. Maintaining hydration. 1) ADHD - Vyvanse. Seeing psych 2) Panic attacks - Seeing psychiatry. 3) Migraine - Prn triptan. Sees neurology. 4) Hep C - Last RNA negative. Recent mild transaminitis and elevated bili. Repeat hep C RNA ordered, but not obtained. 5) H/o abnormal pap - Sees research recruiter. 6) Smoker - Pre-contemplative. 7) Chronic back pain - Muscle relaxants. 8) Overweight - GLP1as not covered. Did not tolerate Topamax. Did not have effect with Wellbutrin. We could consider Metformin. Adipex is contraindicated by use of Vyvanse. 9) Adrenal adenoma - MRI suggested benign lesion. Hormonal testing ordered by endo but not completed. Advised endo follow-up. 10) RBBB - Noted on last ECG. Advised cardiology f/u. PAST MEDICAL HISTORY Diagnosis Date Appendicitis ASCUS with positive high risk HPV cervical 09/26/2019 Asthma (HCC) 11/29/2011 ATTN DEFICIT NONHYPERACT 11/27/2007 Atypical glandular cells of undetermined significance (ZENA) on cervical Pap smear 05/19/2024 Bulging of intervertebral disc between L4 and L5 and L5 and S1 09/07/2015 Chest pain 04/29/2010 Chlamydia infection 09/23/2013 Depression 05/26/2011 Depression complicating , antepartum (HCC) 08/02/2012 Diet controlled gestational diabetes mellitus (GDM) in second trimester (HCC) 11/08/2022 11/08/22- 2 levels out of 3 elevated. Supplies and referrals ordered. Sulma Bartholomew, OCTAVIO.CNM Generalized anxiety disorder GERD (gastroesophageal reflux disease) Hepatitis C 2017 2018 cured after medication course. High grade squamous intraepithelial cervical dysplasia History of suicide attempt 2014 cutting wrist Juvenile osteochondrosis of lower extremity, excluding foot 2004, resolved Kidney stones Migraine headache 05/26/2011 other Sever's Disease, 2006, resolved Other acne 01/27/2010 Pain in joint, site unspecified AC joint tear, 2005 Patient requested diagnostic testing 04/18/2012 04/18/2012 Patient desires early screening in with sequential testing. Poor support system complicating (HCC) 04/18/2012 04/18/2012The father of the baby is aware that she is , but does not wish to be involved. Patient states her parents are very supportive. Patient is tearful for some of this visit today due to the father of the baby. She states he has put pressure on her in the past to have an , but she does not wish to do that. Patient was given a brochure on the care center and WIC. depression PTSD (post-traumatic stress disorder) Rosacea 01/27/2010 Rubella non-immune status 04/22/2012 Skin cancer Teen 04/22/2012 July 04, 2012 Flu vaccine given Telangiectasia 01/27/2010 Tobacco use disorder Current Outpatient Medications on File Prior to Visit Medication Sig lamoTRIgine (LAMICTAL) 25 mg tablet Take 2 tablets by mouth once daily. naproxen (NAPROSYN) 375 mg tablet Take 1 tablet by mouth three times a day as needed (pain). tiZANidine (ZANAFLEX) 4 mg tablet Take 1/2 - 1 tablet oral Three times a day , PRN as needed for 30 Days prochlorperazine (COMPAZINE) 10 mg tablet Take 1 tablet by mouth every 8 hours as needed for nausea/vomiting. Etonogestrel-Ethinyl Estradiol (NUVARING) 0.12-0.015 mg/24 hr vaginal ring Use 1 Each vaginally as directed. INSERT ONE(1) RING VAGINALLY AND LEAVE IN PLACE FOR THREE WEEKS, THEN REMOVE FOR 1 WEEK. SUMAtriptan (IMITREX) 100 mg tablet Take 1 tablet (100 mg) by mouth as needed. TAKE ONE (1) TABLET EVERY 2 HOURS WITH A MAXIMUM DOSE OF 200 MG PER DAY NEEDED FOR HEADACHE LORazepam (ATIVAN) 0.5 mg Take 0.25 mg by mouth as needed (panic attacj). flu (more content not included)... [facility] 02-13-2025 History of Present illness Narrative Telemedicine Visit - Distance Health Virtual Visit Note Patient seen on ilustrum video visit platform. Location of patient: [place] I have communicated my name and active licensure. The patient's identity and physical location were verified at the time of this visit. Either the patient or their legal artist representative has been informed of the risks and benefits of -- and alternatives to -- treatment through a remote evaluation and consents to proceed with the evaluation remotely. History of Present Illness 29 yo F presenting for f/u Seen by research recruiter on 01/29 for pelvic discomfort - Like a bowling ball was sitting in pelvis. US showed a hemorrhagic (R) ovarian cyst. Prescribed Doxy for possible infection. Had worsening and seen in ER with lower abdominal pain and diarrhea. CT revealed an ovarian cyst on the (L) and mildly prominent RLQ nodes. Patient reports no pelvic exam in ER. There is a h/o adrenal adenoma, but no mention of adrenal mass on CT. Continues to have diarrhea, no improvement. No blood. No improvement of pain, but no worsening - Pain is felt more in the RLQ. No nausea/vomiting. No fevers. Maintaining hydration. 1) ADHD - Vyvanse. Seeing psych 2) Panic attacks - Seeing psychiatry. 3) Migraine - Prn triptan. Sees neurology. 4) Hep C - Last RNA negative. Recent mild transaminitis and elevated bili. Repeat hep C RNA ordered, but not obtained. 5) H/o abnormal pap - Sees research recruiter. 6) Smoker - Pre-contemplative. 7) Chronic back pain - Muscle relaxants. 8) Overweight - GLP1as not covered. Did not tolerate Topamax. Did not have effect with Wellbutrin. We could consider Metformin. Adipex is contraindicated by use of Vyvanse. 9) Adrenal adenoma - MRI suggested benign lesion. Hormonal testing ordered by endo but not completed. Advised endo follow-up. 10) RBBB - Noted on last ECG. Advised cardiology f/u. PAST MEDICAL HISTORY Diagnosis Date Appendicitis ASCUS with positive high risk HPV cervical 09/26/2019 Asthma (HCC) 11/29/2011 ATTN DEFICIT NONHYPERACT 11/27/2007 Atypical glandular cells of undetermined significance (ZENA) on cervical Pap smear 05/19/2024 Bulging of intervertebral disc between L4 and L5 and L5 and S1 09/07/2015 Chest pain 04/29/2010 Chlamydia infection 09/23/2013 Depression 05/26/2011 Depression complicating , antepartum ([facility]) 08/02/2012 Diet controlled gestational diabetes mellitus (GDM) in second trimester ([facility]) 11/08/2022 11/08/22- 2 levels out of 3 elevated. Supplies and referrals ordered. Sulma Bartholomew APRN.CNM Generalized anxiety disorder GERD (gastroesophageal reflux disease) Hepatitis C 2017 2018 cured after medication course. High grade squamous intraepithelial cervical dysplasia History of suicide attempt 2014 cutting wrist Juvenile osteochondrosis of lower extremity, excluding foot 2004, resolved Kidney stones Migraine headache 05/26/2011 other Sever's Disease, 2006, resolved Other acne 01/27/2010 Pain in joint, site unspecified AC joint tear, 2005 Patient requested diagnostic testing 04/18/2012 04/18/2012 Patient desires early screening in with sequential testing. Poor support system complicating ([facility]) 04/18/2012 04/18/2012The father of the baby is aware that she is , but does not wish to be involved. Patient states her parents are very supportive. Patient is tearful for some of this visit today due to the father of the baby. She states he has put pressure on her in the past to have an , but she does not wish to do that. Patient was given a brochure on the care center and WIC. depression PTSD (post-traumatic stress disorder) Rosacea 01/27/2010 Rubella non-immune status 04/22/2012 Skin cancer Teen 04/22/2012 July 04, 2012 Flu vaccine given Telangiectasia 01/27/2010 Tobacco use disorder Current Outpatient Medications on File Prior to Visit Medication Sig lamoTRIgine (LAMICTAL) 25 mg tablet Take 2 tablets by mouth once daily. naproxen (NAPROSYN) 375 mg tablet Take 1 tablet by mouth three times a day as needed (pain). tiZANidine (ZANAFLEX) 4 mg tablet Take 1/2 - 1 tablet oral Three times a day , PRN as needed for 30 Days prochlorperazine (COMPAZINE) 10 mg tablet Take 1 tablet by mouth every 8 hours as needed for nausea/vomiting. Etonogestrel-Ethinyl Estradiol (NUVARING) 0.12-0.015 mg/24 hr vaginal ring Use 1 Each vaginally as directed. INSERT ONE(1) RING VAGINALLY AND LEAVE IN PLACE FOR THREE WEEKS, THEN REMOVE FOR 1 WEEK. SUMAtriptan (IMITREX) 100 mg tablet Take 1 tablet (100 mg) by mouth as needed. TAKE ONE (1) TABLET EVERY 2 HOURS WITH A MAXIMUM DOSE OF 200 MG PER DAY NEEDED FOR HEADACHE LORazepam (ATIVAN) 0.5 mg Take 0.25 mg by mouth as needed (panic attacj). fluticasone (FLONASE) 50 mcg/actuation nasal spray Use 2 Sprays in each nostril once daily. Rinse mouth after use. acetaminophen (TYLENOL 8 HOUR) 650 mg CR tablet Take 1 tablet by mouth every 8 hours as needed. lisdexamfetamine (VYVANSE) 40 mg capsule Take 1 capsule by mouth once daily for 30 days. cloNIDine HCl (CATAPRES) 0.1 mg tablet Take 1 tablet by mouth once daily as needed (Anxiety). No current facility-administered medications on file prior to visit. Social History Tobacco Use Smoking status: Former Current packs/day: 1.00 Average packs/day: 1 pack/day for 9.0 years (9.0 ttl pk-yrs) Types: Cigarettes Smokeless tobacco: Current Tobacco comments: Vapes Vaping Use Vaping status: current everyday user Substances: Nicotine Devices: Pre-filled or refillable cartridge Substance Use Topics Alcohol use: Not Currently Drug use: Not Currently Types: Heroin, Marijuana Comment: Patient states I have used multiple drugs in the past Video Exam (Examination performed via Video enabled technology) General appearance: Alert, oriented, pleasant, in NAD :Yes Ill appearing :No Lethargic appearing :No Respiratory distress :No ASSESSMENT/PLAN: 1. Right lower quadrant abdominal pain - ICD9: 789.03, ICD10: R10.31 (primary diagnosis) Pain began in pelvic region. Evaluated by research recruiter. This seems to be improving, but there is more prominent pain now in RLQ. S/p appendectomy. Evaluated in ER. Normal labs. Imaging showing enlarged RLQ nodes. This may be a mesenteric adenitis. There is no evidence of an acute intraabdominal process. Patient is being treated with Doxycycline for possible PID. No pelvic exam was performed on most recent ER visit, but CT imaging showed no inflammatory changes in the pelvis and white count was normal No fevers, nausea, etc. I feel risk of untreated infection is low. For now, will treat symptomatically. Ensure hydration. Update me on Sunday. To ER for any new or worsening symptoms. Follow with research recruiter as scheduled. 2. Pelvic pain - ICD9: [id number], ICD10: R10.2 3. Chronic midline low back pain without sciatica - ICD9: 724.2, 338.29, ICD10: M54.50, G89.29 Stable Continue current medications 4. ADHD (attention deficit hyperactivity disorder), inattentive type - ICD9: 314.00, ICD10: F90.0 Stable Continue current medications 5. Anxiety with depression - ICD9: 300.4, ICD10: F41.8 Stable Continue current medications 6. Migraine with aura and without status migrainosus, not intractable - ICD9: 346.00, ICD10: G43.109 Stable Continue current medications 7. History of abnormal cervical Pap smear - ICD9: V13.29, ICD10: Z87.42 Follow with research recruiter 8. Smoking history - ICD9: V15.82, ICD10: Z87.891 Encourage cessation Keaton Tracy MD documented in this encounter [facility] 02-12-2025 Telephone encounter Note Pt notified and voiced understanding. Did inform Pt it is her choice if she decides to f/u with her PCP, but at this time, Dr. Millan has reviewed the CT and said there is not a clear cut one source for her pain. When asked if she wanted to schedule the IUD insertion, Pt states she will call back as she is currently at work. Tri Alonzo, BRIT [facility] 02-12-2025 Miscellaneous Notes Pt notified and voiced understanding. Did inform Pt it is her choice if she decides to f/u with her PCP, but at this time, Dr. Millan has reviewed the CT and said there is not a clear cut one source for her pain. When asked if she wanted to schedule the IUD insertion, Pt states she will call back as she is currently at work. Tri Alonzo RN Those are often non specific but could indicate she had an infection that could have been causing some of her issues acutely. Carmelita Millan MD Patient notified. She is questioning the enlarged lymph nodes on CT scan. Asking if that could be related to anything or if she just needs to f/u with PCP next since pain is ongoing? Joshua Delgado RN CT is unremarkable. The small lesion on the ovary is about an inch in size and that is a normal follicle size and not the source of ongoing pain or concern. If she doesn't tolerate the doxy, she doesn't have to finish it. Ok to schedule the IUD insertion and would screen for mycoplasm before insertion. There is not clear cut one source for her pain. Follow up for IUD or prn. Carmelita Millan MD Patient called stating that she was seen at the emergency dept.at yesterday and had a CT scan done d/t ongoing pelvic/lower abdominal pain for over a month that is worsening. Patient describes pain as cramping in pelvic area, and can be sharp/shooting depending on what activity pt is doing and feels heaviness in abdomen. Pain rated a 7/10. Denies fever. Is taking doxycycline 100 mg and started to have diarrhea a couple days ago. Patient asking if provider could review her CT scan and if a f/u appointment is needed. Pt states she was seen 01/29. She has now decided she would like to have IUD. Please advise and place orders if willing, Thank you documented in this encounter [facility] 02-12-2025 Telephone encounter Note Those are often non specific but could indicate she had an infection that could have been causing some of her issues acutely. Carmelita Millan MD [facility] 02-11-2025 Telephone encounter Note Patient notified. She is questioning the enlarged lymph nodes on CT scan. Asking if that could be related to anything or if she just needs to f/u with PCP next since pain is ongoing? Joshua Delgado RN [facility] 02-11-[address] is unremarkable. The small lesion on the ovary is about an inch in size and that is a normal follicle size and not the source of ongoing pain or concern. If she doesn't tolerate the doxy, she doesn't have to finish it. Ok to schedule the IUD insertion and would screen for mycoplasm before insertion. There is not clear cut one source for her pain. Follow up for IUD or prn. Carmelita Millan MD [facility] 02-11-2025 Telephone encounter Note Patient called stating that she was seen at the emergency dept.at yesterday and had a CT scan done d/t ongoing pelvic/lower abdominal pain for over a month that is worsening. Patient describes pain as cramping in pelvic area, and can be sharp/shooting depending on what activity pt is doing and feels heaviness in abdomen. Pain rated a 7/10. Denies fever. Is taking doxycycline 100 mg and started to have diarrhea a couple days ago. Patient asking if provider could review her CT scan and if a f/u appointment is needed. [facility] 02-11-2025 Telephone encounter Note Patient was called due to below [employer] message, she states she has been having pelvic pain for the past month and it has been worsening. She was seen by STEWARD RACETRACK and US completed. Pain worsened yesterday and patient went to the ED and CT was completed and patient was advised to follow up with STEWARD RACETRACK, results, 2.8cm ovarian cyst, trace fluid and several mildly prominent lymph nodes. Patient states she forgot her ER paperwork and thought she was to follow up with PCP directive to return to ED with worsening symptoms, this was also communicated to patient. She will call STEWARD RACETRACK for follow up. Patient was seen by STEWARD RACETRACK 01/29/2025 for same symptoms and C/O pain with intercourse Patient was given the care advice per protocol and advised to call with any new or worsening symptoms. Proceed to ED with any severe change in condition or symptom. Will follow up with STEWARD RACETRACK MyChart Message: Hi! I have an appointment with you on Sunday. I ve been having a lot of pelvic/ lower abdominal pain and cramping. I ve had it for over a month and it s getting worse. I saw my diesel mechanic and she said the pain is coming from my uterus and she did an ultrasound and didn t find anything on there. I started doxycycline. I ve been on the medication for a few days, but I haven t been able to get out of bed for the last couple days and I m feeling very lethargic and the pain is getting worse. I went to the [facility] and had a CT done and it shows swollen lymph nodes. Are you able to look over the notes? It was a hospital. The doctor at the hospital told me to follow up on this. Reason for Disposition [1] Pelvic pain is a chronic symptom (recurrent or ongoing AND [2] present > 4 weeks) Answer Assessment - Initial Assessment Questions 1. LOCATION: General pelvic pain >right 2. RADIATION: denies 3. ONSET: About one month ago worsening over past few weeks 4. SUDDEN: gradual 5. PATTERN Pain is constant 6. SEVERITY: '6' on 1/10 scale 7. RECURRENT SYMPTOM: denies 8. CAUSE: unknown 9. RELIEVING/AGGRAVATING FACTORS: aggravated by activity 10. OTHER SYMPTOMS: denies 11. : 01/28/2025 Protocols used: Pelvic Pain - [id number] [facility] 02-11-2025 Telephone encounter Note See Triage Bibi Nielson RN [facility] 02-11-2025 Miscellaneous Notes See Triage Bibi Nielson RN documented in this encounter [facility] 02-11-2025 Miscellaneous Notes Patient was called due to below ilustrum message, she states she has been having pelvic pain for the past month and it has been worsening. She was seen by STEWARD RACETRACK and US completed. Pain worsened yesterday and patient went to the ED and CT was completed and patient was advised to follow up with STEWARD RACETRACK, results, 2.8cm ovarian cyst, trace fluid and several mildly prominent lymph nodes. Patient states she forgot her ER paperwork and thought she was to follow up with PCP directive to return to ED with worsening symptoms, this was also communicated to patient. She will call STEWARD RACETRACK for follow up. Patient was seen by STEWARD RACETRACK 01/29/2025 for same symptoms and C/O pain with intercourse Patient was given the care advice per protocol and advised to call with any new or worsening symptoms. Proceed to ED with any severe change in condition or symptom. Will follow up with STEWARD RACETRACK Randi Message: Hi! I have an appointment with you on Sunday. I ve been having a lot of pelvic/ lower abdominal pain and cramping. I ve had it for over a month and it s getting worse. I saw my diesel mechanic and she said the pain is coming from my uterus and she did an ultrasound and didn t find anything on there. I started doxycycline. I ve been on the medication for a few days, but I haven t been able to get out of bed for the last couple days and I m feeling very lethargic and the pain is getting worse. I went to the [facility] and had a CT done and it shows swollen lymph nodes. Are you able to look over the notes? It was a hospital. The doctor at the hospital told me to follow up on this. Reason for Disposition [1] Pelvic pain is a chronic symptom (recurrent or ongoing AND [2] present > 4 weeks) Answer Assessment - Initial Assessment Questions 1. LOCATION: General pelvic pain >right 2. RADIATION: denies 3. ONSET: About one month ago worsening over past few weeks 4. SUDDEN: gradual 5. PATTERN Pain is constant 6. SEVERITY: '6' on 1/10 scale 7. RECURRENT SYMPTOM: denies 8. CAUSE: unknown 9. RELIEVING/AGGRAVATING FACTORS: aggravated by activity 10. OTHER SYMPTOMS: denies 11. : 01/28/2025 Protocols used: Pelvic Pain - [id number] documented in this encounter [facility] 02-11-2025 Physician Emergency department Note HPI Chief Complaint Patient presents with Abdominal Pain C/o lower abd cramping with sharp pain on and off for a few weeks. Also c/o diarrhea the last week. Pt saw her mix house tender and was started on doxycycline. Denies any urinary problems 29-year-old female presents with suprapubic crampy abdominal pain. Patient states she has been symptomatic for several weeks. Patient was seen by her diesel mechanic and had an ultrasound done in the office. She also had a pelvic exam. Patient denies any dysuria or hematuria. Patient denies any fever or chills. Patient was put on doxycycline and now has had diarrhea for approximately 1 week. I did go over the results of the CAT scan with the patient. I also went over the blood work. Patient will be given a dose of Toradol 15 mg IV and referred back to her diesel mechanic for further diagnostic studies and test. History provided by: Patient Patient History Medical History[1] Surgical History[2] Family History[3] Social History[4] Physical Exam ED Triage Vitals [02/10/25 2355] Temperature Heart Rate Respirations BP 36.2 C (97.2 F) 96 16 131/66 Pulse Ox Temp Source Heart Rate Source Patient Position 97 % Tympanic Monitor -- BP Location FiO2 (%) -- -- Physical Exam Vitals and nursing note reviewed. Constitutional: Appearance: Normal appearance. HENT: Head: Normocephalic and atraumatic. Right Ear: Tympanic membrane normal. Left Ear: Tympanic membrane normal. Nose: Nose normal. Mouth/Throat: Mouth: Mucous membranes are moist. Eyes: Extraocular Movements: Extraocular movements intact. Pupils: Pupils are equal, round, and reactive to light. Cardiovascular: Rate and Rhythm: Normal rate. Pulmonary: Effort: Pulmonary effort is normal. Breath sounds: Normal breath sounds. Abdominal: General: Abdomen is flat. Bowel sounds are normal. Palpations: Abdomen is soft. Tenderness: There is abdominal tenderness in the periumbilical area and suprapubic area. Musculoskeletal: General: Normal range of motion. Cervical back: Normal range of motion. Skin: General: Skin is warm and dry. Neurological: General: No focal deficit present. Mental Status: She is alert and oriented to person, place, and time. Labs Reviewed CBC WITH AUTO DIFFERENTIAL - Abnormal Result Value WBC 9.1 nRBC 0.0 RBC 3.87 (*) Hemoglobin 12.2 Hematocrit 35.5 (*) MCV 92 MCH 31.5 MCHC 34.4 RDW 11.8 Platelets 250 Neutrophils % 57.0 Immature Granulocytes %, Automated 0.2 Lymphocytes % 33.2 Monocytes % 8.3 Eosinophils % 1.0 Basophils % 0.3 Neutrophils Absolute 5.16 Immature Granulocytes Absolute, Automated 0.02 Lymphocytes Absolute 3.01 Monocytes Absolute 0.75 Eosinophils Absolute 0.09 Basophils Absolute 0.03 COMPREHENSIVE METABOLIC PANEL - Abnormal Glucose 103 (*) Sodium 138 Potassium 4.0 Chloride 107 Bicarbonate 27 Anion Gap 8 (*) Urea Nitrogen 14 Creatinine 0.64 eGFR >90 Calcium 9.0 Albumin 4.2 Alkaline Phosphatase 73 Total Protein 6.5 AST 22 Bilirubin, Total 0.8 ALT 38 URINALYSIS WITH REFLEX CULTURE AND MICROSCOPIC - Normal Color, Urine Light-Yellow Appearance, Urine Clear Specific [place], Urine 1.030 pH, Urine 6.0 Protein, Urine NEGATIVE Glucose, Urine Normal Blood, Urine NEGATIVE Ketones, Urine NEGATIVE Bilirubin, Urine NEGATIVE Urobilinogen, Urine Normal Nitrite, Urine NEGATIVE Leukocyte Esterase, Urine NEGATIVE MAGNESIUM - Normal Magnesium 1.89 LACTATE - Normal Lactate 0.9 Narrative: Venipuncture immediately after or during the administration of Metamizole may lead to falsely low results. Testing should be performed immediately prior to Metamizole dosing. URINALYSIS WITH REFLEX CULTURE AND MICROSCOPIC Narrative: The following orders were created for panel order Urinalysis with Reflex Culture and Microscopic. Procedure Abnormality Status --------- ------ Urinalysis with Reflex C...[[id number]] Normal Final result Extra Urine Waters Tube[[id number]] Please view results for these tests on the individual orders. EXTRA URINE WATERS TUBE POCT , URINE CT abdomen pelvis w IV contrast Final Result Multiple bilateral nonobstructive renal calculi. No evidence of bowel obstruction. Postsurgical change of prior appendectomy. Several mildly prominent lymph nodes right lower quadrant measuring up to 10 mm may be reactive in nature. 2.8 cm left ovarian cyst and trace fluid in the pelvis. MACRO: None Signed by: Ambrose Pearson 02/11/2025 1:30 AM Dictation workstation: [id number] ED Course & MDM Diagnoses as of 02/11/25 0141 Lower abdominal pain No data recorded Radha Coma Scale Score: 15 (02/10/25 2353 : Emi Pro RN) Medical Decision Making 1 medication as prescribed 2 call diesel mechanic office tomorrow for further follow-up if symptoms worsen return to ED. Procedure Procedures [1] Past Medical History: Diagnosis Date Abnormal Pap smear of cervix 2020 ADHD (attention deficit hyperactivity disorder) Anxiety Cancer of skin of scalp Chronic back pain Depression HPV in female Kidney stones Spina bifida 2014 Spinal stenosis Urinary tract infection 08/2023 [2] Past Surgical History: Procedure Laterality Date CERVICAL BIOPSY W/ LOOP ELECTRODE EXCISION WISDOM TOOTH EXTRACTION [3] Family History Problem Relation Name Age of Onset Hypertension Mother Verna Hensley Cancer Mother Verna Hensley Heart disease Mother Verna Hensley Hypertension Father Cristhian Hensley Kidney disease Father Cristhian Hensley Diabetes Father Cristhian Hensley Heart disease Father Cristhian Hensley Other (skin scalp cancer) Sister Heart disease Maternal Grandfather Ruddy Sarkar [4] Social History Tobacco Use Smoking status: Former Current packs/day: 0.00 Average packs/day: 1 pack/day for 4.0 years (4.0 ttl pk-yrs) Types: Cigarettes Start date: 12/21/2012 Quit date: 11/09/2016 Years since quittin.2 Smokeless tobacco: Current Vaping Use Vaping status: Every Day Substances: Nicotine Substance Use Topics Alcohol use: Never Drug use: Never Rosanna Ruiz DO 02/11/25 0141 [facility] Work Phone: 02-11-2025 Emergency department Note HPI Chief Complaint Patient presents with Abdominal Pain C/o lower abd cramping with sharp pain on and off for a few weeks. Also c/o diarrhea the last week. Pt saw her mix house tender and was started on doxycycline. Denies any urinary problems 29-year-old female presents with suprapubic crampy abdominal pain. Patient states she has been symptomatic for several weeks. Patient was seen by her diesel mechanic and had an ultrasound done in the office. She also had a pelvic exam. Patient denies any dysuria or hematuria. Patient denies any fever or chills. Patient was put on doxycycline and now has had diarrhea for approximately 1 week. I did go over the results of the CAT scan with the patient. I also went over the blood work. Patient will be given a dose of Toradol 15 mg IV and referred back to her diesel mechanic for further diagnostic studies and test. History provided by: Patient Patient History Medical History[1] Surgical History[2] Family History[3] Social History[4] Physical Exam ED Triage Vitals [02/10/25 2355] Temperature Heart Rate Respirations BP 36.2 C (97.2 F) 96 16 131/66 Pulse Ox Temp Source Heart Rate Source Patient Position 97 % Tympanic Monitor -- BP Location FiO2 (%) -- -- Physical Exam Vitals and nursing note reviewed. Constitutional: Appearance: Normal appearance. HENT: Head: Normocephalic and atraumatic. Right Ear: Tympanic membrane normal. Left Ear: Tympanic membrane normal. Nose: Nose normal. Mouth/Throat: Mouth: Mucous membranes are moist. Eyes: Extraocular Movements: Extraocular movements intact. Pupils: Pupils are equal, round, and reactive to light. Cardiovascular: Rate and Rhythm: Normal rate. Pulmonary: Effort: Pulmonary effort is normal. Breath sounds: Normal breath sounds. Abdominal: General: Abdomen is flat. Bowel sounds are normal. Palpations: Abdomen is soft. Tenderness: There is abdominal tenderness in the periumbilical area and suprapubic area. Musculoskeletal: General: Normal range of motion. Cervical back: Normal range of motion. Skin: General: Skin is warm and dry. Neurological: General: No focal deficit present. Mental Status: She is alert and oriented to person, place, and time. Labs Reviewed CBC WITH AUTO DIFFERENTIAL - Abnormal Result Value WBC 9.1 nRBC 0.0 RBC 3.87 (*) Hemoglobin 12.2 Hematocrit 35.5 (*) MCV 92 MCH 31.5 MCHC 34.4 RDW 11.8 Platelets 250 Neutrophils % 57.0 Immature Granulocytes %, Automated 0.2 Lymphocytes % 33.2 Monocytes % 8.3 Eosinophils % 1.0 Basophils % 0.3 Neutrophils Absolute 5.16 Immature Granulocytes Absolute, Automated 0.02 Lymphocytes Absolute 3.01 Monocytes Absolute 0.75 Eosinophils Absolute 0.09 Basophils Absolute 0.03 COMPREHENSIVE METABOLIC PANEL - Abnormal Glucose 103 (*) Sodium 138 Potassium 4.0 Chloride 107 Bicarbonate 27 Anion Gap 8 (*) Urea Nitrogen 14 Creatinine 0.64 eGFR >90 Calcium 9.0 Albumin 4.2 Alkaline Phosphatase 73 Total Protein 6.5 AST 22 Bilirubin, Total 0.8 ALT 38 URINALYSIS WITH REFLEX CULTURE AND MICROSCOPIC - Normal Color, Urine Light-Yellow Appearance, Urine Clear Specific [place], Urine 1.030 pH, Urine 6.0 Protein, Urine NEGATIVE Glucose, Urine Normal Blood, Urine NEGATIVE Ketones, Urine NEGATIVE Bilirubin, Urine NEGATIVE Urobilinogen, Urine Normal Nitrite, Urine NEGATIVE Leukocyte Esterase, Urine NEGATIVE MAGNESIUM - Normal Magnesium 1.89 LACTATE - Normal Lactate 0.9 Narrative: Venipuncture immediately after or during the administration of Metamizole may lead to falsely low results. Testing should be performed immediately prior to Metamizole dosing. URINALYSIS WITH REFLEX CULTURE AND MICROSCOPIC Narrative: The following orders were created for panel order Urinalysis with Reflex Culture and Microscopic. Procedure Abnormality Status --------- ------ Urinalysis with Reflex C...[[id number]] Normal Final result Extra Urine Waters Tube[[id number]] Please view results for these tests on the individual orders. EXTRA URINE WATERS TUBE POCT , URINE CT abdomen pelvis w IV contrast Final Result Multiple bilateral nonobstructive renal calculi. No evidence of bowel obstruction. Postsurgical change of prior appendectomy. Several mildly prominent lymph nodes right lower quadrant measuring up to 10 mm may be reactive in nature. 2.8 cm left ovarian cyst and trace fluid in the pelvis. MACRO: None Signed by: Ambrose Pearson 02/11/2025 1:30 AM Dictation workstation: [id number] ED Course & MDM Diagnoses as of 02/11/25 0141 Lower abdominal pain No data recorded Radha Coma Scale Score: 15 (02/10/25 2353 : Emi Pro RN) Medical Decision Making 1 medication as prescribed 2 call diesel mechanic office tomorrow for further follow-up if symptoms worsen return to ED. Procedure Procedures [1] Past Medical History: Diagnosis Date Abnormal Pap smear of cervix 2020 ADHD (attention deficit hyperactivity disorder) Anxiety Cancer of skin of scalp Chronic back pain Depression HPV in female Kidney stones Spina bifida 2014 Spinal stenosis Urinary tract infection 08/2023 [2] Past Surgical History: Procedure Laterality Date CERVICAL BIOPSY W/ LOOP ELECTRODE EXCISION WISDOM TOOTH EXTRACTION [3] Family History Problem Relation Name Age of Onset Hypertension Mother Verna Fortune Cancer Mother Verna Fortune Heart disease Mother Verna Fortjoelle Hypertension Father Cristhian Hensley Kidney disease Father Cristhian Hensley Diabetes Father Cristhian Steinerune Heart disease Father Cristhian Hensley Other (skin scalp cancer) Sister Heart disease Maternal Grandfather Ruddy Sarkar [4] Social History Tobacco Use Smoking status: Former Current packs/day: 0.00 Average packs/day: 1 pack/day for 4.0 years (4.0 ttl pk-yrs) Types: Cigarettes Start date: 12/21/2012 Quit date: 11/09/2016 Years since quittin.2 Smokeless tobacco: Current Vaping Use Vaping status: Every Day Substances: Nicotine Substance Use Topics Alcohol use: Never Drug use: Never Rosanna Ruiz DO 02/11/25 0141 documented in this encounter [facility] Work Phone: 02-09-2025 Telephone encounter Note Pt states she was seen 01/29. She has now decided she would like to have IUD. Please advise and place orders if willing, Thank you [facility] 02-01-2025 Note HNO ID: [id number] Author: IRENE HENDERSON MD Service: ? Author Type: Physician Type: Progress Notes Filed: 02/01/2025 19:19 Note Text: The patient presents for requested ultrasound. Full report available in the Imaging tab in [email or web address]. Irene Henderson MD [facility] 02-01-2025 History of Present illness Narrative The patient presents for requested ultrasound. Full report available in the Imaging tab in [email or web address]. Irene Henderson MD documented in this encounter [facility] 01-29-2025 Note HNO ID: [id number] Author: CARMELITA MILLAN MD Service: ? Author Type: Physician Type: Progress Notes Filed: 01/29/2025 11:17 Note Text: Obstetrics and Gynecology [place] [facility] [employer] Visit Subjective Recording using ambient [employer] software for draft documentation of the visit was discussed with the patient/authorized artist representative; all questions welcomed and answered. Patient/authorized artist representative agreed to proceed CHIEF COMPLAINT: The patient is a 29-year-old female presenting with pelvic pain and irregular bleeding. HPI: Pelvic Pain - Reports sharp, twinge-like pain in the lower abdomen, which is significantly worse after intercourse and can last throughout the following day. - Describes the pain as severe enough to cause her to double over at times, stating it can be unbearable. - Pain is not localized to one side and does not resemble menstrual cramping. - Pain during intercourse described as something's getting bumped. - Pain onset reportedly began after a recent LEEP procedure, with a noticeable increase in severity over the past month and a half. May be worse since of her last child - Takes Tylenol for pain management and uses oral Toradol sparingly when pain is severe. - Denies any relief from heat or rest, and has not noticed if tight clothing exacerbates the pain. - Denies associated symptoms such as fevers, chills, nausea, vomiting, or urinary symptoms. - Denies pain with bowel movements or constipation. - Denies vaginal discharge, itching, or burning. Irregular Bleeding - Last menstrual period was two weeks long, followed by a two-week interval without bleeding. - Currently experiencing another bleeding episode that started two days ago, which she believes is her period. - Describes the current bleeding as average for a period, not the heaviest she has experienced. - Has not refilled her NuvaRing prescription but believes it helps with her periods and wants to avoid . Kidney Stones - History of kidney stones requiring surgical removal. - States current pain does not resemble the pain experienced with kidney stones. Back Pain - Has a history of back pain, for which she was prescribed Toradol, possibly from an ER visit. HISTORY: OB History Gravida2 Para2 Term2 Preterm0 AB0 Living2 SAB0 IAB0 Ectopic0 Multiple0 Live Births2 Communications Clerk History LMP: 01/27/2025 (Exact Date), Having periods Age at Menarche: Age at First : Age at Menopause: Communications Clerk History Comments: Sexual Activity: Yes; Male Contraception: No contraception data on record PAST MEDICAL HISTORY Diagnosis Date Appendicitis ASCUS with positive high risk HPV cervical 09/26/2019 Asthma (HCC) 11/29/2011 ATTN DEFICIT NONHYPERACT 11/27/2007 Atypical glandular cells of undetermined significance (ZENA) on cervical Pap smear 05/19/2024 Bulging of intervertebral disc between L4 and L5 and L5 and S1 09/07/2015 Chest pain 04/29/2010 Chlamydia infection 09/23/2013 Depression 05/26/2011 Depression complicating , antepartum ([facility]) 08/02/2012 Diet controlled gestational diabetes mellitus (GDM) in second trimester ([facility]) 11/08/2022 11/08/22- 2 levels out of 3 elevated. Supplies and referrals ordered. Sulma Bartholomew APRN.CNM Generalized anxiety disorder GERD (gastroesophageal reflux disease) Hepatitis C 2017 2018 cured after medication course. High grade squamous intraepithelial cervical dysplasia History of suicide attempt 2014 cutting wrist Juvenile osteochondrosis of lower extremity, excluding foot 2004, resolved Kidney stones Migraine headache 05/26/2011 other Sever's Disease, 2006, resolved Other acne 01/27/2010 Pain in joint, site unspecified AC joint tear, 2005 Patient requested diagnostic testing 04/18/2012 04/18/2012 Patient desires early screening in with sequential testing. Poor support system complicating (HCC) 04/18/2012 04/18/2012The father of the baby is aware that she is , but does not wish to be involved. Patient states her parents are very supportive. Patient is tearful for some of this visit today due to the father of the baby. She states he has put pressure on her in the past to have an , but she does not wish to do that. Patient was given a brochure on the care center and WIC. depression PTSD (post-traumatic stress disorder) Rosacea 01/27/2010 Rubella non-immune status 04/22/2012 Skin cancer Teen 04/22/2012 July 04, 2012 Flu vaccine given Telangiectasia 01/27/2010 Tobacco use disorder PAST SURGICAL HISTORY Procedure Laterality Date APPENDECTOMY CERVIX UTERI CONIZA LP ELCTRO EXCI 05/11/2023 at [facility]-Dr. Millan PAST SURGICAL HISTORY OF 01/01/2010 Removal of 4 Mereta Teeth PAST SURGICAL HISTORY OF basal cell carcinoma removed from scalp FAMILY HISTORY Problem Relation Age of Onset Skin Cancer Mother Hyper (more content not included)... [facility] 01-29-2025 History of Present illness Narrative Images from the original note were not included. Obstetrics and Gynecology [place] [employer] [employer] Visit Subjective Recording using [employer] software for draft documentation of the visit was discussed with the patient/authorized artist representative; all questions welcomed and answered. Patient/authorized artist representative agreed to proceed CHIEF COMPLAINT: The patient is a 29-year-old female presenting with pelvic pain and irregular bleeding. HPI: Pelvic Pain - Reports sharp, twinge-like pain in the lower abdomen, which is significantly worse after intercourse and can last throughout the following day. - Describes the pain as severe enough to cause her to double over at times, stating it can be unbearable. - Pain is not localized to one side and does not resemble menstrual cramping. - Pain during intercourse described as something's getting bumped. - Pain onset reportedly began after a recent LEEP procedure, with a noticeable increase in severity over the past month and a half. May be worse since of her last child - Takes Tylenol for pain management and uses oral Toradol sparingly when pain is severe. - Denies any relief from heat or rest, and has not noticed if tight clothing exacerbates the pain. - Denies associated symptoms such as fevers, chills, nausea, vomiting, or urinary symptoms. - Denies pain with bowel movements or constipation. - Denies vaginal discharge, itching, or burning. Irregular Bleeding - Last menstrual period was two weeks long, followed by a two-week interval without bleeding. - Currently experiencing another bleeding episode that started two days ago, which she believes is her period. - Describes the current bleeding as average for a period, not the heaviest she has experienced. - Has not refilled her NuvaRing prescription but believes it helps with her periods and wants to avoid . Kidney Stones - History of kidney stones requiring surgical removal. - States current pain does not resemble the pain experienced with kidney stones. Back Pain - Has a history of back pain, for which she was prescribed Toradol, possibly from an ER visit. HISTORY: OB History Gravida2 Para2 Term2 Preterm0 AB0 Living2 SAB0 IAB0 Ectopic0 Multiple0 Live Births2 Communications Clerk History LMP: 01/27/2025 (Exact Date), Having periods Age at Menarche: Age at First : Age at Menopause: Communications Clerk History Comments: Sexual Activity: Yes; Male Contraception: No contraception data on record PAST MEDICAL HISTORY Diagnosis Date Appendicitis ASCUS with positive high risk HPV cervical 09/26/2019 Asthma (HCC) 11/29/2011 ATTN DEFICIT NONHYPERACT 11/27/2007 Atypical glandular cells of undetermined significance (ZENA) on cervical Pap smear 05/19/2024 Bulging of intervertebral disc between L4 and L5 and L5 and S1 09/07/2015 Chest pain 04/29/2010 Chlamydia infection 09/23/2013 Depression 05/26/2011 Depression complicating , antepartum (HCC) 08/02/2012 Diet controlled gestational diabetes mellitus (GDM) in second trimester ([facility]) 11/08/2022 11/08/22- 2 levels out of 3 elevated. Supplies and referrals ordered. Sulma Bartholomew APRN.JULISSA Generalized anxiety disorder GERD (gastroesophageal reflux disease) Hepatitis C 2017 2018 cured after medication course. High grade squamous intraepithelial cervical dysplasia History of suicide attempt 2014 cutting wrist Juvenile osteochondrosis of lower extremity, excluding foot 2004, resolved Kidney stones Migraine headache 05/26/2011 other Sever's Disease, 2006, resolved Other acne 01/27/2010 Pain in joint, site unspecified AC joint tear, 2005 Patient requested diagnostic testing 04/18/2012 04/18/2012 Patient desires early screening in with sequential testing. Poor support system complicating ([facility]) 04/18/2012 04/18/2012The father of the baby is aware that she is , but does not wish to be involved. Patient states her parents are very supportive. Patient is tearful for some of this visit today due to the father of the baby. She states he has put pressure on her in the past to have an , but she does not wish to do that. Patient was given a brochure on the care center and WIC. depression PTSD (post-traumatic stress disorder) Rosacea 01/27/2010 Rubella non-immune status 04/22/2012 Skin cancer Teen 04/22/2012 July 04, 2012 Flu vaccine given Telangiectasia 01/27/2010 Tobacco use disorder PAST SURGICAL HISTORY Procedure Laterality Date APPENDECTOMY CERVIX UTERI CONIZA LP ELCTRO EXCI 05/11/2023 at [facility]-Dr. Millan PAST SURGICAL HISTORY OF 01/01/2010 Removal of 4 Mereta Teeth PAST SURGICAL HISTORY OF basal cell carcinoma removed from scalp FAMILY HISTORY Problem Relation Age of Onset Skin Cancer Mother Hypertension Mother Heart Failure Mother Liver Cancer Mother 66 Heart Father TRIPLE BYPASS SURGERY Hypertension Father Diabetes Father Diabetes Sister No Known Problems Sister No Known Problems Sister No Known Problems Brother No Known Problems Brother No Known Problems Brother Heart Maternal Grandmother from heart problems Heart Maternal Grandfather from heart problems Cancer Maternal Grandfather lung Hypertension Maternal Grandfather No Known Problems Daughter Social History Tobacco Use Smoking status: Former Current packs/day: 1.00 Average packs/day: 1 pack/day for 9.0 years (9.0 ttl pk-yrs) Types: Cigarettes Smokeless tobacco: Current Tobacco comments: Vapes Vaping Use Vaping status: current everyday user Substances: Nicotine Devices: Pre-filled or refillable cartridge Substance Use Topics Alcohol use: Not Currently Drug use: Not Currently Types: Heroin, Marijuana Comment: Patient states I have used multiple drugs in the past Current Outpatient Medications Medication Sig lamoTRIgine (LAMICTAL) 25 mg tablet Take 2 tablets by mouth once daily. tiZANidine (ZANAFLEX) 4 mg tablet Take 1/2 - 1 tablet oral Three times a day , PRN as needed for 30 Days prochlorperazine (COMPAZINE) 10 mg tablet Take 1 tablet by mouth every 8 hours as needed for nausea/vomiting. SUMAtriptan (IMITREX) 100 mg tablet Take 1 tablet (100 mg) by mouth as needed. TAKE ONE (1) TABLET EVERY 2 HOURS WITH A MAXIMUM DOSE OF 200 MG PER DAY NEEDED FOR HEADACHE LORazepam (ATIVAN) 0.5 mg Take 0.25 mg by mouth as needed (panic attacj). fluticasone (FLONASE) 50 mcg/actuation nasal spray Use 2 Sprays in each nostril once daily. Rinse mouth after use. acetaminophen (TYLENOL 8 HOUR) 650 mg CR tablet Take 1 tablet by mouth every 8 hours as needed. lisdexamfetamine (VYVANSE) 40 mg capsule Take 1 capsule by mouth once daily for 30 days. cloNIDine HCl (CATAPRES) 0.1 mg tablet Take 1 tablet by mouth once daily as needed (Anxiety). doxycycline monohydrate (MONODOX) 100 mg capsule Take 1 capsule by mouth two times a day for 10 days. naproxen (NAPROSYN) 375 mg tablet Take 1 tablet by mouth three times a day as needed (pain). Etonogestrel-Ethinyl Estradiol (NUVARING) 0.12-0.015 mg/24 hr vaginal ring Use 1 Each vaginally as directed. INSERT ONE(1) RING VAGINALLY AND LEAVE IN PLACE FOR THREE WEEKS, THEN REMOVE FOR 1 WEEK. No current facility-administered medications for this visit. ALLERGIES Allergen Reactions Zyrtec [Cetirizine * Intolerance tremors REVIEW OF SYSTEMS: Constitutional: (-) fever, (-) chills Gastrointestinal: (-) nausea, (-) vomiting, (-) constipation, (-) pain with bowel movements Genitourinary: (+) pelvic pain, (+) dyspareunia, (+) prolonged menses, (-) dysuria, (-) hematuria Objective SENSITIVE EXAM: The sensitive examination was discussed with the Patient or Patient's Authorized [place] Clerk. As applicable, any other physician, advance practice provider, medical student, or other health professional student that will be observing or involved in the sensitive examination for educational or training purposes was discussed with the Patient or Authorized [employer] [place] Clerk. The Patient or Authorized [employer] Clerk has agreed to proceed with the sensitive examination. (Sensitive examination includes inspection and/or palpation of the breasts, pelvis, prostate and anorectal regions). PHYSICAL EXAM: BP 104/70 Wt 177 lb (80.3kg) LMP 01/27/2025 GENERAL: Pleasant; in no acute distress ABDOMEN: soft, non-tender, no masses, no hernia, diffuse tenderness lower abdomen, no rebound or guarding. : - PELVIC: external genitalia normal, normal Bartholin's glands, urethra, Axson's glands, no vulvar lesions, no cervical lesions, good vaginal support, moderate dark blood tinged discharge, normal appearing perineal body and perianal region . Cervix smooth and nonfriable First degree cystocele and rectocele - BIMANUAL: uterus normal size, shape, and consistency, no adnexal masses, some moderate uterine tendereness to palpation, it is mobile, no levvator spasm noted, NEURO: alert and oriented x3 EXTREMITIES: normal Assessment & Plan ASSESSMENT AND PLAN: 1. Pelvic pain in female (R10.2)- check US, possible chronic endometritis, trial doxy, restart nuvaring 2. Dysmenorrhea (N94.6), possible adenomyosis, endometriosis, endometritis, ovarian cyst or other - Ordered pelvic ultrasound to evaluate for potential cysts or other abnormalities. - Prescribed doxycycline for 10 days to address potential chronic low-grade infection and provide anti-inflammatory effects. - Discontinue use of oral Toradol; prescribed alternative NSAID for pain management. - Follow-up appointment scheduled in6-8 weeks to reassess symptoms and review ultrasound findings. 3. Irregular menstruation (N92.6) - Recent menstrual irregularity with a [id number]-jdjt period followed by a new bleeding episode two days ago. - Advised resuming NuvaRing within the next 1-2 days to help regulate menstrual cycles and manage potential underlying conditions such as adenomyosis or endometriosis. - Discussed that it may take 1-2 months for menstrual cycles to stabilize after restarting NuvaRing. 4. Encounter for surveillance of vaginal ring hormonal contraceptive device (Z30.44) - Patient has not refilled NuvaRing prescription but plans to resume use for contraception and menstrual regulation. - Advised that resuming NuvaRing can help manage dysmenorrhea and irregular menstruation. - Patient understands and agrees with the plan to restart NuvaRing. Carmelita Millan MD documented in this encounter [facility] 01-27-2025 Telephone encounter Note Pt states she had an appt scheduled with RM 12/30/24 for bleeding x a couple of weeks/intense cramping/pain/she was concerned; However, was unable to come in d/t work. Pt calling stating she has pain with sex and cervical pain post sexual intercourse. Pt states it comes and goes throughout the day, but it seems to be triggered by intercourse. States pain is described as stabbing/throbbing/shooting. Rates pain 5/10, intermittently. Taking Tylenol PRN & Toradol PRN and seems to help. IUD removed 04/2024. Started Nuvaring right after IUD removed. Stopped Nuvaring a month ago. Intermittent spotting. Hx CIN3 , LEEP-Pathology showed= high grade dysplasia. Appt scheduled with RR 01/29/25. Tri Alonzo, BRIT [facility] 01-27-2025 Miscellaneous Notes Pt states she had an appt scheduled with RM 12/30/24 for bleeding x a couple of weeks/intense cramping/pain/she was concerned; However, was unable to come in d/t work. Pt calling stating she has pain with sex and cervical pain post sexual intercourse. Pt states it comes and goes throughout the day, but it seems to be triggered by intercourse. States pain is described as stabbing/throbbing/shooting. Rates pain 5/10, intermittently. Taking Tylenol PRN & Toradol PRN and seems to help. IUD removed 04/2024. Started Nuvaring right after IUD removed. Stopped Nuvaring a month ago. Intermittent spotting. Hx CIN3 , LEEP-Pathology showed= high grade dysplasia. Appt scheduled with 01/29/25. Tri Alonzo RN documented in this encounter [facility] 01-26-2025 Telephone encounter Note Prescription Refill Information The patient has been identified by name and date of : Yes Caregiver verified no other encounters exist for this prescription request: Yes Caregiver confirmed with patient/requestor that no other refills are due, in the near future, with this provider at this time: Yes The last office visit in the department: 11/28/24 Does the patient have a future office visit with this provider/department: Yes Requested Prescriptions Pending Prescriptions Disp Refills tiZANidine (ZANAFLEX) 4 mg tablet 90 tablet 3 Sig: Take 1/2 - 1 tablet oral Three times a day , PRN as needed for 30 Days Aliyah Hensley LPN January 26, 2025 2:27 PM [facility] 01-26-2025 Miscellaneous Notes Prescription Refill Information The patient has been identified by name and date of : Yes Caregiver verified no other encounters exist for this prescription request: Yes Caregiver confirmed with patient/requestor that no other refills are due, in the near future, with this provider at this time: Yes The last office visit in the department: 11/28/24 Does the patient have a future office visit with this provider/department: Yes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 to call and speak with patient; call was disconnected, attempted to call back. No answer. If patient calls please provide the above recommendation. GO TO THE EMERGENCY ROOM OR CALL 911 IF: * You develop any new symptoms * Your condition worsens * You are concerned or anxious about your condition for any other reason. If you have any questions, you can call Nurse front desk person back. Idania Loco RN Reason for Disposition Bloody crusts on lips or sores in mouth Sore in mouth; patient started taking Lamotrigine, prescribed by psychiatry outside the [facility] on 09/11/24. Patient has a sore in her mouth, dime sized. No difficulty breathing or any other symptoms Name of Provider contacted for further advice: Balbir Tracy MD Provider's recommendation: stop medication until Dr Tracy speaks with patient; states he thinks it is unrelated to the medication and could be something viral. Dr Tracy stated he will call and speak with patient tomorrow. [1] Drug allergy suspected AND [2] taking prescription medicine AND [3] widespread rash Answer Assessment - Initial Assessment Questions 1. APPEARANCE of RASH: Sore in mouth - white spot on it - small at first now the size of dime. White lesion 2. SIZE: small at first now the size of dime. 3. LOCATION: Upper left side of mouth 4. COLOR: Sore in mouth 5. ONSET: 2 days ago 10/03 6. FEVER: Denies 7. ITCHING: denies 8. CAUSE: Unsure, maybe medication 9. NEW MEDICINES: Stated this medication prescribed by psychiatry outside the [facility] Lamotrigine - started 09/11/24 taking 25mg , 2 weeks in the dose was raised to 50mg 10. OTHER SYMPTOMS: Denies 11. : Denies C 09/06 Protocols used: Allergic Reactions - Guideline [id number], Rash - Widespread On [id number] documented in this encounter [facility] 10-05-2024 Telephone encounter Note Reason for Call: Sore in mouth; patient started taking Lamotrigine, prescribed by psychiatry outside the [facility] on 09/11/24. Patient has a sore in her mouth, dime sized. No difficulty breathing or any other symptoms. Name of Provider contacted for further advice: Balbir Tracy MD Provider's recommendation: stop medication until Dr Tracy speaks with patient; states he thinks it is unrelated to the medication and could be something viral. Dr Tracy stated he will call and speak with patient tomorrow. Outcome: Attempted to call and speak with patient; call was disconnected, attempted to call back. No answer. If patient calls please provide the above recommendation. GO TO THE EMERGENCY ROOM OR CALL 911 IF: * You develop any new symptoms * Your condition worsens * You are concerned or anxious about your condition for any other reason. If you have any questions, you can call Nurse front desk person back. Idania Loco RN Reason for Disposition Bloody crusts on lips or sores in mouth Sore in mouth; patient started taking Lamotrigine, prescribed by psychiatry outside the [facility] on 09/11/24. Patient has a sore in her mouth, dime sized. No difficulty breathing or any other symptoms Name of Provider contacted for further advice: Balbir Tracy MD Provider's recommendation: stop medication until Dr Tracy speaks with patient; states he thinks it is unrelated to the medication and could be something viral. Dr Tracy stated he will call and speak with patient tomorrow. [1] Drug allergy suspected AND [2] taking prescription medicine AND [3] widespread rash Answer Assessment - Initial Assessment Questions 1. APPEARANCE of RASH: Sore in mouth - white spot on it - small at first now the size of dime. White lesion 2. SIZE: small at first now the size of dime. 3. LOCATION: Upper left side of mouth 4. COLOR: Sore in mouth 5. ONSET: 2 days ago 10/03 6. FEVER: Denies 7. ITCHING: denies 8. CAUSE: Unsure, maybe medication 9. NEW MEDICINES: Stated this medication prescribed by psychiatry outside the [facility] Lamotrigine - started 09/11/24 taking 25mg , 2 weeks in the dose was raised to 50mg 10. OTHER SYMPTOMS: Denies 11. : Denies [facility] [place] Protocols used: Allergic Reactions - Guideline [id number], Rash - Widespread On [id number] [facility] 09-16-2024 Telephone encounter Note Prescription Refill Information The patient has been identified by name and date of : Yes Caregiver verified no other encounters exist for this prescription request: Yes Caregiver confirmed with patient/requestor that no other refills are due, in the near future, with this provider at this time: Yes The last office visit in the department: 08/08/2024 Does the patient have a future office visit with this provider/department: No Requested Prescriptions Pending Prescriptions Disp Refills tiZANidine (ZANAFLEX) 4 mg tablet 90 tablet 0 Sig: Take 1/2 - 1 tablet oral Three times a day , PRN as needed for 30 Days Heidy Long LPN September 16, 2024 3:44 PM [facility] 09-16-2024 Miscellaneous Notes Prescription Refill Information The patient has been identified by name and date of : Yes Caregiver verified no other encounters exist for this prescription request: Yes Caregiver confirmed with patient/requestor that no other refills are due, in the near future, with this provider at this time: Yes The last office visit in the department: 08/08/2024 Does the patient have a future office visit with this provider/department: No Requested Prescriptions Pending Prescriptions Disp Refills tiZANidine (ZANAFLEX) 4 mg tablet 90 tablet 0 Sig: Take 1/2 - 1 tablet oral Three times a day , PRN as needed for 30 Days Heidy Long LPN September 16, 2024 3:44 PM documented in this encounter [facility] 09-08-2024 Telephone encounter Note Last OV 06/24/24. Pt states I took out my control and can t find it. Can I have a new prescription sent to [facility]? Requested Prescriptions Pending Prescriptions Disp Refills Etonogestrel-Ethinyl Estradiol (NUVARING) 0.12-0.015 mg/24 hr vaginal ring 1 Each 3 Sig: Use 1 Each vaginally as directed. INSERT ONE(1) RING VAGINALLY AND LEAVE IN PLACE FOR THREE WEEKS, THEN REMOVE FOR 1 WEEK. Tri Alonzo RN [facility] 09-08-2024 Miscellaneous Notes Last OV 06/24/24. Pt states I took out my control and can t find it. Can I have a new prescription sent to [facility]? Requested Prescriptions Pending Prescriptions Disp Refills Etonogestrel-Ethinyl Estradiol (NUVARING) 0.12-0.015 mg/24 hr vaginal ring 1 Each 3 Sig: Use 1 Each vaginally as directed. INSERT ONE(1) RING VAGINALLY AND LEAVE IN PLACE FOR THREE WEEKS, THEN REMOVE FOR 1 WEEK. Tri Alonzo RN documented in this encounter [facility] 09-05-2024 Physician Emergency department Note Patient is a 28-year-old female who presents to the emergency room with a chief complaint of a migraine headache that started around 1 PM today. Patient states that she has a history of migraine headaches, this feels similar as far as location and overall symptoms although states that this is worse than her headache as she typically does not vomit. She states that she takes Imitrex and had NSAIDs earlier with minimal to no relief. She denies hitting her head or loss of consciousness. She denies any fever or chills. No weakness. No numbness or tingling. She reports photophobia with no vision changes. Review of Systems Constitutional: Negative for chills and fever. HENT: Negative for ear pain and sore throat. Eyes: Negative for pain and visual disturbance. Respiratory: Negative for cough and shortness of breath. Cardiovascular: Negative for chest pain and palpitations. Gastrointestinal: Negative for abdominal pain and vomiting. Genitourinary: Negative for dysuria and hematuria. Musculoskeletal: Negative for arthralgias and back pain. Skin: Negative for color change and rash. Neurological: Positive for headaches. Negative for seizures and syncope. All other systems reviewed and are negative. Physical Exam Vitals and nursing note reviewed. Constitutional: General: She is not in acute distress. Appearance: Normal appearance. She is well-developed. She is not ill-appearing. HENT: Head: Normocephalic and atraumatic. Right Ear: Tympanic membrane, ear canal and external ear normal. Left Ear: Tympanic membrane, ear canal and external ear normal. Nose: Nose normal. Mouth/Throat: Mouth: Mucous membranes are moist. Eyes: General: No visual field deficit. Extraocular Movements: Extraocular movements intact. Conjunctiva/sclera: Conjunctivae normal. Pupils: Pupils are equal, round, and reactive to light. Cardiovascular: Rate and Rhythm: Normal rate and regular rhythm. Heart sounds: No murmur heard. Pulmonary: Effort: Pulmonary effort is normal. No respiratory distress. Breath sounds: Normal breath sounds. No stridor. No wheezing, rhonchi or rales. Abdominal: Palpations: Abdomen is soft. Tenderness: There is no abdominal tenderness. Musculoskeletal: General: No swelling. Cervical back: Normal range of motion and neck supple. No rigidity. Skin: General: Skin is warm and dry. Capillary Refill: Capillary refill takes less than 2 seconds. Neurological: General: No focal deficit present. Mental Status: She is alert and oriented to person, place, and time. GCS: GCS eye subscore is 4. GCS verbal subscore is 5. GCS motor subscore is 6. Cranial Nerves: No cranial nerve deficit, dysarthria or facial asymmetry. Sensory: Sensation is intact. No sensory deficit. Motor: Motor function is intact. No weakness. Coordination: Coordination is intact. Coordination normal. Gait: Gait is intact. Gait normal. Psychiatric: Mood and Affect: Mood normal. Labs Reviewed WATERS TOP No orders to display Procedures Medical Decision Making Patient is a 28-year-old female who presents to the emergency room with a chief complaint of a migraine headache. Patient reports onset of symptoms this afternoon. She has a history of migraine headache, this feels similar and its presentation although patient states that she typically does not vomit with her migraines. She states that otherwise feels the same. She takes Imitrex and had no relief with Imitrex. Patient was treated with a migraine cocktail of Toradol, Benadryl, and Reglan. She reports that she is significantly better. She states that she has a very mild headache still rating it a 2 out of 10 on prior she was a 9 or 10 out of 10. She is drinking Sprite currently, reports that she would like to go home. She will be discharged home with recommended follow-up with primary care physician return for any new or worsening symptoms. Differential diagnosis includes but not limited to migraine, intracranial hemorrhage, viral illness, meningitis Diagnoses as of 09/05/242112 Other migraine with status migrainosus, intractable Wilver Tarango PA-C 09/05/242113 [facility] Work Phone: 09-05-2024 Emergency department Note Patient is a 28-year-old female who presents to the emergency room with a chief complaint of a migraine headache that started around 1 PM today. Patient states that she has a history of migraine headaches, this feels similar as far as location and overall symptoms although states that this is worse than her headache as she typically does not vomit. She states that she takes Imitrex and had NSAIDs earlier with minimal to no relief. She denies hitting her head or loss of consciousness. She denies any fever or chills. No weakness. No numbness or tingling. She reports photophobia with no vision changes. Review of Systems Constitutional: Negative for chills and fever. HENT: Negative for ear pain and sore throat. Eyes: Negative for pain and visual disturbance. Respiratory: Negative for cough and shortness of breath. Cardiovascular: Negative for chest pain and palpitations. Gastrointestinal: Negative for abdominal pain and vomiting. Genitourinary: Negative for dysuria and hematuria. Musculoskeletal: Negative for arthralgias and back pain. Skin: Negative for color change and rash. Neurological: Positive for headaches. Negative for seizures and syncope. All other systems reviewed and are negative. Physical Exam Vitals and nursing note reviewed. Constitutional: General: She is not in acute distress. Appearance: Normal appearance. She is well-developed. She is not ill-appearing. HENT: Head: Normocephalic and atraumatic. Right Ear: Tympanic membrane, ear canal and external ear normal. Left Ear: Tympanic membrane, ear canal and external ear normal. Nose: Nose normal. Mouth/Throat: Mouth: Mucous membranes are moist. Eyes: General: No visual field deficit. Extraocular Movements: Extraocular movements intact. Conjunctiva/sclera: Conjunctivae normal. Pupils: Pupils are equal, round, and reactive to light. Cardiovascular: Rate and Rhythm: Normal rate and regular rhythm. Heart sounds: No murmur heard. Pulmonary: Effort: Pulmonary effort is normal. No respiratory distress. Breath sounds: Normal breath sounds. No stridor. No wheezing, rhonchi or rales. Abdominal: Palpations: Abdomen is soft. Tenderness: There is no abdominal tenderness. Musculoskeletal: General: No swelling. Cervical back: Normal range of motion and neck supple. No rigidity. Skin: General: Skin is warm and dry. Capillary Refill: Capillary refill takes less than 2 seconds. Neurological: General: No focal deficit present. Mental Status: She is alert and oriented to person, place, and time. GCS: GCS eye subscore is 4. GCS verbal subscore is 5. GCS motor subscore is 6. Cranial Nerves: No cranial nerve deficit, dysarthria or facial asymmetry. Sensory: Sensation is intact. No sensory deficit. Motor: Motor function is intact. No weakness. Coordination: Coordination is intact. Coordination normal. Gait: Gait is intact. Gait normal. Psychiatric: Mood and Affect: Mood normal. Labs Reviewed WATERS TOP No orders to display Procedures Medical Decision Making Patient is a 28-year-old female who presents to the emergency room with a chief complaint of a migraine headache. Patient reports onset of symptoms this afternoon. She has a history of migraine headache, this feels similar and its presentation although patient states that she typically does not vomit with her migraines. She states that otherwise feels the same. She takes Imitrex and had no relief with Imitrex. Patient was treated with a migraine cocktail of Toradol, Benadryl, and Reglan. She reports that she is significantly better. She states that she has a very mild headache still rating it a 2 out of 10 on prior she was a 9 or 10 out of 10. She is drinking Sprite currently, reports that she would like to go home. She will be discharged home with recommended follow-up with primary care physician return for any new or worsening symptoms. Differential diagnosis includes but not limited to migraine, intracranial hemorrhage, viral illness, meningitis Diagnoses as of 09/05/242112 Other migraine with status migrainosus, intractable Wilver Tarango PA-C 09/05/242113 documented in this encounter [facility] Work Phone: 08-20-2024 Telephone encounter Note Prescription Refill Information The patient has been identified by name and date of : Yes Caregiver verified no other encounters exist for this prescription request: Yes Caregiver confirmed with patient/requestor that no other refills are due, in the near future, with this provider at this time: Yes The last office visit in the department: 08/08/2024 Does the patient have a future office visit with this provider/department: No Requested Prescriptions Pending Prescriptions Disp Refills tiZANidine (ZANAFLEX) 4 mg tablet 90 tablet 3 Sig: Take 1/2 - 1 tablet oral Three times a day , PRN as needed for 30 Days Kenya Reina LPN August 20, 2024 10:54 AM [facility] 08-20-2024 Miscellaneous Notes Prescription Refill Information The patient has been identified by name and date of : Yes Caregiver verified no other encounters exist for this prescription request: Yes Caregiver confirmed with patient/requestor that no other refills are due, in the near future, with this provider at this time: Yes The last office visit in the department: 08/08/2024 Does the patient have a future office visit with this provider/department: No Requested Prescriptions Pending Prescriptions Disp Refills tiZANidine (ZANAFLEX) 4 mg tablet 90 tablet 3 Sig: Take 1/2 - 1 tablet oral Three times a day , PRN as needed for 30 Days Kenya Reina LPN August 20, 2024 10:54 AM documented in this encounter [facility] 07-21-2024 Telephone encounter Note Prescription Refill Information The last office visit in the department: 05/16/24 Does the patient have a future office visit with this provider/department: Yes Requested Prescriptions Pending Prescriptions Disp Refills tiZANidine (ZANAFLEX) 4 mg tablet 90 tablet 0 Sig: Take 1/2 - 1 tablet oral Three times a day , PRN as needed for 30 Days Items addressed in this encounter: Refill Encounter Maribell Nicholas MA July 21, 2024 3:32 PM 3:32 PM [facility] 07-21-2024 Miscellaneous Notes Prescription Refill Information The last office visit in the department: 05/16/24 Does the patient have a future office visit with this provider/department: Yes Requested Prescriptions Pending Prescriptions Disp Refills tiZANidine (ZANAFLEX) 4 mg tablet 90 tablet 0 Sig: Take 1/2 - 1 tablet oral Three times a day , PRN as needed for 30 Days Items addressed in this encounter: Refill Encounter Maribell Nicholas MA July 21, 2024 3:32 PM 3:32 PM documented in this encounter [facility] 06-24-2024 Instructions Varsha Vann MA - 06/24/2024 3:22 PM EST YOUR RECOVERY It may take a few weeks for your cervix to heal. While your cervix heals, you may have: - Vaginal bleeding (less than a normal menstrual period) - Mild cramping - A brown-black vaginal discharge (similar to coffee grounds) which is a result of the paste used to help stop bleeding from the procedure Do NOT put anything in the vagina for 1 week after your colposcopy if your doctor does a biopsy of your cervix. This includes sex, tampons, and douches. If you have any discomfort, you may take an over the counter pain medication (motrin, advil, ibuprofen, tylenol, etc). If this does not relieve your discomfort, contact your doctor's office for a prescription strength pain medication. It is okay to wear a sanitary pad until the discharge and spotting stops. RISKS Although problems seldom occur with colposcopy, there can be some complications. You may feel faint during and shortly after the procedure as well as have some bleeding and vaginal discharge after the procedure. There is also a risk of infection after the procedure. These complications are rare and can be easily treated. You should contact you doctor is you have any of the following: - Heavy bleeding (more than your normal period) - Bleeding with clots - Severe abdominal pain - Fever (more than 100.4F) - Foul smelling vaginal discharge RESULTS If a biopsy was taken, we will have the results of your biopsy in 1-2 weeks. If you do not hear the results of your biopsy after 2 weeks, please contact your physicians office for the results. Depending on the biopsy results, your doctor will determine your follow up plan which may include further testing or treatments. STAYING HEALTHY After the procedure, you will need to see your doctor for follow up visits during the year. At these visits your doctor will check the health of your cervix with a pap smear. After three normal pap smears, your doctor will allow you to return to having exams once a year. If you have another abnormal pap smear, you may need closer follow up for longer or you may need additional treatment. By making a few lifestyle changes after the procedure, you can help protect the health of your cervix: - Have regular pelvic exams and pap smears as ordered by your doctor. - Stop smoking as smoking increases your risk of developing a cancer of the cervix - If you have more than one sexual partner, limit your number of partners and use condoms to reduce your risks of STDs. If you have any additional questions, please contact your doctor's office. documented in this encounter [facility] 06-24-2024 Note HNO ID: [id number] Author: CARMELITA MILLAN MD Service: ? Author Type: Physician Type: Progress Notes Filed: 06/24/2024 16:01 Note Text: Fadumo is a 28 year old Female who presents today for an endometrial biopsy for zena. test: negative UNIVERSAL PROTOCOL / SAFETY CHECKLIST Procedure to be Performed: EMB and colposcopy with possible biopsies Fadumo is a 28 year old Female who presents today for a colposcopy. The patient's last pap smear was ZENA from April 2024. Patient has a history of abnormal pap: Yes. The patient has had prior treatment: LEEP. test: negative PROCEDURE: EXTERNAL GENITALIA: Normal in appearance without lesions VAGINA: Normal in appearance without lesions CERVIX: Speculum placed in vagina and excellent visualization of cervix achieved. Cervix swabbed x 3 with 3% acetic acid solution. Cervix grossly normal. Squamocolumnar junction visualized. acetowhite changes noted light AW 6 oclock, vaginal tissue up to edge of cervix, punctations noted -none, mosaicism noted -none, and atypical vasculature noted none. BIOPSY: Done at 6:00 and 12:00 EMB-done in usual sterile fashion after cleansing cervix w/ betadine and uterus sounded to 9 cm. ECC: done HEMOSTASIS: Obtained with silver nitrate and pressure Procedure Summary: Patient tolerated procedure well and colposcopy was adequate. ASSESSMENT: ZENA pap PLAN: Specimens labeled and sent to Pathology. Will notify patient of results in 1-2 weeks. Post-procedure instructions reviewed and written material given to the patient. If indicated, lesion by colpo is not amenable to office LEEP. Carmelita Millan MD [facility] 06-24-2024 History of Present illness Narrative Fadumo is a 28 year old Female who presents today for an endometrial biopsy for zena. test: negative UNIVERSAL PROTOCOL / SAFETY CHECKLIST Procedure to be Performed: EMB and colposcopy with possible biopsies Fadumo is a 28 year old Female who presents today for a colposcopy. The patient's last pap smear was ZENA from April 2024. Patient has a history of abnormal pap: Yes. The patient has had prior treatment: LEEP. test: negative PROCEDURE: EXTERNAL GENITALIA: Normal in appearance without lesions VAGINA: Normal in appearance without lesions CERVIX: Speculum placed in vagina and excellent visualization of cervix achieved. Cervix swabbed x 3 with 3% acetic acid solution. Cervix grossly normal. Squamocolumnar junction visualized. acetowhite changes noted light AW 6 oclock, vaginal tissue up to edge of cervix, punctations noted -none, mosaicism noted -none, and atypical vasculature noted none. BIOPSY: Done at 6:00 and 12:00 EMB-done in usual sterile fashion after cleansing cervix w/ betadine and uterus sounded to 9 cm. ECC: done HEMOSTASIS: Obtained with silver nitrate and pressure Procedure Summary: Patient tolerated procedure well and colposcopy was adequate. ASSESSMENT: ZENA pap PLAN: Specimens labeled and sent to Pathology. Will notify patient of results in 1-2 weeks. Post-procedure instructions reviewed and written material given to the patient. If indicated, lesion by colpo is not amenable to office LEEP. Carmelita Millan MD documented in this encounter [facility] 06-20-2024 Telephone encounter Note Prescription Refill Information The last office visit in the department: 05/16/24 Does the patient have a future office visit with this provider/department: Yes Requested Prescriptions Pending Prescriptions Disp Refills tiZANidine (ZANAFLEX) 4 mg tablet 90 tablet 0 Sig: Take 1/2 - 1 tablet oral Three times a day , PRN as needed for 30 Days Items addressed in this encounter: Refill Encounter Maribell Nicholas MA June 20, 2024 8:28 AM 8:28 AM [facility] 06-20-2024 Miscellaneous Notes Prescription Refill Information The last office visit in the department: 05/16/24 Does the patient have a future office visit with this provider/department: Yes Requested Prescriptions Pending Prescriptions Disp Refills tiZANidine (ZANAFLEX) 4 mg tablet 90 tablet 0 Sig: Take 1/2 - 1 tablet oral Three times a day , PRN as needed for 30 Days Items addressed in this encounter: Refill Encounter Maribell Nicholas MA June 20, 2024 8:28 AM 8:28 AM documented in this encounter [facility] 05-27-2024 Note HNO ID: [id number] Author: MAUDE BAILEY APRN.[employer]IT[employer] Service: ? Author Type: Nurse Practitioner Type: Progress Notes Filed: 05/27/2024 13:29 Note Text: This note was created using web care [employer]. Subjective Fadumo Hensley is a 28 year old female. HPI by patient: Fadumo Hensley is a 28 year old presenting to the office with the complaint of viral symptoms. Started approximately 3 days ago. Associated symptoms include cough, congestion, body aches, fatigue, and sore throat. Denies gi symptoms. Covid Immunization Dates Overdue - Covid-19 Vaccine (2023- season) Overdue since 03/23/2024 09/03/2023 Imm Admin: COVID-19 vaccine, age 12+ yr, 2022- season (PFIZER-BIONTECH) 08/03/2022 Postponed until 08/03/2023 by Jocelyne Soliman LPN (Declined at this time) 07/06/2021 Imm Admin: COVID-19 original vaccine, age 12+ yr, monovalent (PFIZER-BIONTECH - PURPLE TOP) Sick contacts: yes. Smoking history/second hand smoke: none. OTC not helping. No antibiotic use in the last 60 days. ALLERGIES Zyrtec [Cetirizine * Intolerance Comment:tremors Family History Reviewed Including Cardiac Diseases, Psychiatric Diseases, AND Substance Abuse Problem: Skin Cancer Relation: Mother Age of Onset: (Not Specified) Problem: Hypertension Relation: Mother Age of Onset: (Not Specified) Problem: Heart Failure Relation: Mother Age of Onset: (Not Specified) Problem: Liver Cancer Relation: Mother Age of Onset: 66 Problem: Heart Relation: Father Age of Onset: (Not Specified) Comment: TRIPLE BYPASS SURGERY Problem: Hypertension Relation: Father Age of Onset: (Not Specified) Problem: Diabetes Relation: Father Age of Onset: (Not Specified) Problem: Diabetes Relation: Sister Age of Onset: (Not Specified) Problem: No Known Problems Relation: Sister Age of Onset: (Not Specified) Problem: No Known Problems Relation: Sister Age of Onset: (Not Specified) Problem: No Known Problems Relation: Brother Age of Onset: (Not Specified) Problem: No Known Problems Relation: Brother Age of Onset: (Not Specified) Problem: No Known Problems Relation: Brother Age of Onset: (Not Specified) Problem: Heart Relation: Maternal Grandmother Age of Onset: (Not Specified) Comment: from heart problems Problem: Heart Relation: Maternal Grandfather Age of Onset: (Not Specified) Comment: from heart problems Problem: Cancer Relation: Maternal Grandfather Age of Onset: (Not Specified) Comment: lung Problem: Hypertension Relation: Maternal Grandfather Age of Onset: (Not Specified) Problem: No Known Problems Relation: Daughter Age of Onset: (Not Specified) Social History Tobacco Use Smoking status: Former Packs/day: 1.00 Years: 1 pack/day for 9.0 years (9.0 ttl pk-yrs) Types: Cigarettes Smokeless tobacco: Current Tobacco comments: Vapes Vaping Use Vaping status: current everyday user Substances: Nicotine Devices: Pre-filled or refillable cartridge Alcohol use: Not Currently Drug use: Not Currently Types: Heroin, Marijuana Comment: Patient states I have used multiple drugs in the past Active Ambulatory Problems Attention deficit disorder Date Noted: 11/27/2007 Bulging of intervertebral disc between L4 and L5 and L5 and S1 Date Noted: 09/07/2015 Migraine without aura and without status migrainosus, not intractable Date Noted: 09/07/2015 Drug abuse (HCC) Date Noted: 09/10/2015 Hepatitis C Date Noted: 2017 Intractable low back pain Date Noted: 04/27/2020 Nicotine use disorder, F17.2 Date Noted: 04/27/2020 Mild intermittent asthma without complication Date Noted: 08/03/2020 Basal cell carcinoma (BCC) of scalp Date Noted: 12/09/2020 High grade squamous intraepithelial lesion (HGSIL), grade 3 MANUEL, on biopsy of cervix Date Noted: 01/01/2023 Resolved Ambulatory Problems Telangiectasia Date Noted: 01/27/2010 Rosacea Date Noted: 01/27/2010 Other acne Date Noted: 01/27/2010 Depression Date Noted: 05/26/2011 Tobacco use in Date Noted: 04/18/2012 History of depression Date Noted: 04/18/2012 History of alcohol abuse Date Noted: 04/18/2012 Family history of congenital heart defect Date Noted: 04/18/2012 with adoption planned Date Noted: 04/22/2012 Chlamydia infection Date Noted: 09/23/2013 Routine gynecological examination Date Noted: 12/09/2014 Family history of leukemia Date Noted: 02/04/2015 Vapes nicotine containing substance Date Noted: 09/07/2015 Uncomplicated asthma Date Noted: 09/07/2015 ASCUS with positive high risk HPV cervical Date Noted: 09/26/2019 Urinary incontinence Date Noted: 04/27/2020 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 of cervix Date Noted: 01/10/2022 Spotting in early Date Noted: 04/13/2022 Engages in vaping Date Noted: 04/13/2022 History of macrosomia in in prior (more content not included)... [facility] 05-27-2024 History of Present illness Narrative This note was created using web care [employer]. Subjective Fadumo Hensley is a 28 year old female. HPI by patient: Fadumo Hensley is a 28 year old presenting to the office with the complaint of viral symptoms. Started approximately 3 days ago. Associated symptoms include cough, congestion, body aches, fatigue, and sore throat. Denies gi symptoms. Covid Immunization Dates Overdue - Covid-19 Vaccine ( season) Overdue since 03/23/2024 09/03/2023 Imm Admin: COVID-19 vaccine, age 12+ yr, 2022- season (PFIZER-BIONTECH) 08/03/2022 Postponed until 08/03/2023 by Jocelyne Soliman LPN (Declined at this time) 07/06/2021 Imm Admin: COVID-19 original vaccine, age 12+ yr, monovalent (PFIZER-BIONTECH - PURPLE TOP) Sick contacts: yes. Smoking history/second hand smoke: none. OTC not helping. No antibiotic use in the last 60 days. ALLERGIES Zyrtec [Cetirizine * Intolerance Comment:tremors Family History Reviewed Including Cardiac Diseases, Psychiatric Diseases, & Substance Abuse Problem: Skin Cancer Relation: Mother Age of Onset: (Not Specified) Problem: Hypertension Relation: Mother Age of Onset: (Not Specified) Problem: Heart Failure Relation: Mother Age of Onset: (Not Specified) Problem: Liver Cancer Relation: Mother Age of Onset: 66 Problem: Heart Relation: Father Age of Onset: (Not Specified) Comment: TRIPLE BYPASS SURGERY Problem: Hypertension Relation: Father Age of Onset: (Not Specified) Problem: Diabetes Relation: Father Age of Onset: (Not Specified) Problem: Diabetes Relation: Sister Age of Onset: (Not Specified) Problem: No Known Problems Relation: Sister Age of Onset: (Not Specified) Problem: No Known Problems Relation: Sister Age of Onset: (Not Specified) Problem: No Known Problems Relation: Brother Age of Onset: (Not Specified) Problem: No Known Problems Relation: Brother Age of Onset: (Not Specified) Problem: No Known Problems Relation: Brother Age of Onset: (Not Specified) Problem: Heart Relation: Maternal Grandmother Age of Onset: (Not Specified) Comment: from heart problems Problem: Heart Relation: Maternal Grandfather Age of Onset: (Not Specified) Comment: from heart problems Problem: Cancer Relation: Maternal Grandfather Age of Onset: (Not Specified) Comment: lung Problem: Hypertension Relation: Maternal Grandfather Age of Onset: (Not Specified) Problem: No Known Problems Relation: Daughter Age of Onset: (Not Specified) Social History Tobacco Use Smoking status: Former Packs/day: 1.00 Years: 1 pack/day for 9.0 years (9.0 ttl pk-yrs) Types: Cigarettes Smokeless tobacco: Current Tobacco comments: Vapes Vaping Use Vaping status: current everyday user Substances: Nicotine Devices: Pre-filled or refillable cartridge Alcohol use: Not Currently Drug use: Not Currently Types: Heroin, Marijuana Comment: Patient states I have used multiple drugs in the past Active Ambulatory Problems Attention deficit disorder Date Noted: 11/27/2007 Bulging of intervertebral disc between L4 and L5 and L5 and S1 Date Noted: 09/07/2015 Migraine without aura and without status migrainosus, not intractable Date Noted: 09/07/2015 Drug abuse (HCC) Date Noted: 09/10/2015 Hepatitis C Date Noted: 2017 Intractable low back pain Date Noted: 04/27/2020 Nicotine use disorder, F17.2 Date Noted: 04/27/2020 Mild intermittent asthma without complication Date Noted: 08/03/2020 Basal cell carcinoma (BCC) of scalp Date Noted: 12/09/2020 High grade squamous intraepithelial lesion (HGSIL), grade 3 MANUEL, on biopsy of cervix Date Noted: 01/01/2023 Resolved Ambulatory Problems Telangiectasia Date Noted: 01/27/2010 Rosacea Date Noted: 01/27/2010 Other acne Date Noted: 01/27/2010 Depression Date Noted: 05/26/2011 Tobacco use in Date Noted: 04/18/2012 History of depression Date Noted: 04/18/2012 History of alcohol abuse Date Noted: 04/18/2012 Family history of congenital heart defect Date Noted: 04/18/2012 with adoption planned Date Noted: 04/22/2012 Chlamydia infection Date Noted: 09/23/2013 Routine gynecological examination Date Noted: 12/09/2014 Family history of leukemia Date Noted: 02/04/2015 Vapes nicotine containing substance Date Noted: 09/07/2015 Uncomplicated asthma Date Noted: 09/07/2015 ASCUS with positive high risk HPV cervical Date Noted: 09/26/2019 Urinary incontinence Date Noted: 04/27/2020 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 of cervix Date Noted: 01/10/2022 Spotting in early Date Noted: 04/13/2022 Engages in vaping Date Noted: 04/13/2022 History of macrosomia in in prior , currently Date Noted: 04/13/2022 Patient request for diagnostic testing Date Noted: 04/13/2022 Needle stick, hypodermic, accidental, initial encounter Date Noted: 08/14/2022 Positive GBS test Date Noted: 11/06/2022 Elevated glucose Date Noted: 11/06/2022 Anemia Date Noted: 11/06/2022 Abnormal glucose complicating Date Noted: 11/08/2022 Anemia during in third trimester Date Noted: 11/08/2022 Diet controlled gestational diabetes mellitus (GDM) in second trimester Date Noted: 11/08/2022 Past Medical History: No date: Appendicitis 11/29/2011: Asthma 11/27/2007: ATTN DEFICIT NONHYPERACT 04/29/2010: Chest pain 08/02/2012: Depression complicating , antepartum No date: Generalized anxiety disorder No date: GERD (gastroesophageal reflux disease) No date: High grade squamous intraepithelial cervical dysplasia 2015: History of suicide attempt No date: Juvenile osteochondrosis of lower extremity, excluding foot No date: Kidney stones 05/26/2011: Migraine headache No date: other No date: Pain in joint, site unspecified 04/18/2012: Patient requested diagnostic testing 04/18/2012: Poor support system complicating No date: depression No date: PTSD (post-traumatic stress disorder) 04/22/2012: Rubella non-immune status No date: Skin cancer 04/22/2012: Teen No date: Tobacco use disorder Review of Systems Constitutional: Positive for fatigue. HENT: Positive for congestion and sore throat. Negative for ear pain. Eyes: Negative. Respiratory: Positive for cough. Cardiovascular: Negative. Gastrointestinal: Negative. Endocrine: Negative. Genitourinary: Negative. Musculoskeletal: Positive for myalgias. Skin: Negative. Neurological: Negative. Hematological: Negative. Objective BP 108/74 Pulse 105 Temp 36.3 C (97.4 F) Resp 18 Wt 86 kg (189 lb 9.5 oz) LMP 05/27/2024 SpO2 98% No BMI 30.60 kg/m Physical Exam Vitals reviewed. Constitutional: General: She is not in acute distress. Appearance: She is not ill-appearing, toxic-appearing or diaphoretic. HENT: Head: Normocephalic and atraumatic. Right Ear: Tympanic membrane, ear canal and external ear normal. Left Ear: Tympanic membrane, ear canal and external ear normal. Nose: Rhinorrhea present. Right Sinus: No maxillary sinus tenderness or frontal sinus tenderness. Left Sinus: No maxillary sinus tenderness or frontal sinus tenderness. Mouth/Throat: Mouth: Mucous membranes are moist. Pharynx: Oropharynx is clear. No oropharyngeal exudate or posterior oropharyngeal erythema. Cardiovascular: Rate and Rhythm: Regular rhythm. Tachycardia present. Pulmonary: Effort: Pulmonary effort is normal. Breath sounds: Normal breath sounds. Lymphadenopathy: Head: Right side of head: No submandibular or tonsillar adenopathy. Left side of head: No submandibular or tonsillar adenopathy. Cervical: No cervical adenopathy. Psychiatric: Behavior: Behavior is cooperative. Assessment and Plan (J02.9) Sore throat (primary encounter diagnosis) Plan: STREP A MOLECULAR (POC), COVID & INFLUENZA A/B & RSV PCR, ROUTINE (J06.9) Viral upper respiratory tract infection with cough Plan: fluticasone (FLONASE) 50 mcg/actuation nasal spray, COVID & INFLUENZA A/B & RSV PCR, ROUTINE, dextromethorphan-guaiFENesin (MUCINEX DM) 30-600 mg per tablet Education on viral vs bacterial infections. Most viral infections will last 10 days, sometimes 14. It is possible to have back to back viral infections. An antibiotic will not treat a virus. -Negative strep culture. -Covid/flu/rsv test for rule out, results in 24 hours, isolation in the interim. Result to mychart. -Mucinex dm. -Drink lots of fluids and get plenty of rest. -Vaporizers, cool mist humidifiers, warm showers, and warm fluids help open respiratory and sinus passages. Clean humidifiers daily. -OTC tylenol as directed on the bottle. -Saline nasal spray as needed. Flonase twice daily can help reduce inflammation through the sinus cavities. -Cough/deep breathing education, promote clearing of the airways and good lung expansion. -Make follow up with primary care for monitoring and resolution in symptoms. -Signs that warrant an ER evaluation: Sudden change/worsening in condition, lethargy, signs of dehydration, fever greater than 102 F that is not responding to Tylenol or ibuprofen (Motrin, Advil), drooling, difficulty swallowing, difficulty breathing, shortness of breath, chest pain, evidence of airway compromise (tripod position, neck extension, retractions), seizures, changes in mental status, or other concerns. The patient will pursue further outpatient evaluation with the primary care physician or another Urgent Care/Express Care as outlined in the after visit summary. The patient is agreeable to this plan of care and follow-up instructions have been explained in detail. The patient has received these instructions in written format and have expressed an understanding of the after visit summary. Medical Decision Making: Level: 4 - Moderate I spent a total of 20 minutes on the date of the service which included preparing to see the patient, [id number] patient care, completing clinical documentation, obtaining and/or reviewing separately obtained history, performing a medically appropriate examination, counseling and educating the patient/family/caregiver, and ordering medications, tests, or procedures. This patient encounter involved the screening or treatment of novel coronavirus infection (COVID-19). documented in this encounter [facility] 05-27-2024 Instructions Maude Bailey APRN.ANISHA - 05/27/2024 12:44 PM EST (J02.9) Sore throat (primary encounter diagnosis) Plan: STREP A MOLECULAR (POC), COVID & INFLUENZA A/B & RSV PCR, ROUTINE (J06.9) Viral upper respiratory tract infection with cough Plan: fluticasone (FLONASE) 50 mcg/actuation nasal spray, COVID & INFLUENZA A/B & RSV PCR, ROUTINE, dextromethorphan-guaiFENesin (MUCINEX DM) 30-600 mg per tablet Education on viral vs bacterial infections. Most viral infections will last 10 days, sometimes 14. It is possible to have back to back viral infections. An antibiotic will not treat a virus. -Negative strep culture. -Covid/flu/rsv test for rule out, results in 24 hours, isolation in the interim. Result to mychart. -Mucinex dm. -Drink lots of fluids and get plenty of rest. -Vaporizers, cool mist humidifiers, warm showers, and warm fluids help open respiratory and sinus passages. Clean humidifiers daily. -OTC tylenol as directed on the bottle. -Saline nasal spray as needed. Flonase twice daily can help reduce inflammation through the sinus cavities. -Cough/deep breathing education, promote clearing of the airways and good lung expansion. -Make follow up with primary care for monitoring and resolution in symptoms. -Signs that warrant an ER evaluation: Sudden change/worsening in condition, lethargy, signs of dehydration, fever greater than 102 F that is not responding to Tylenol or ibuprofen (Motrin, Advil), drooling, difficulty swallowing, difficulty breathing, shortness of breath, chest pain, evidence of airway compromise (tripod position, neck extension, retractions), seizures, changes in mental status, or other concerns. documented in this encounter [facility] 05-27-2024 Telephone encounter Note noted and agree. Carmelita Millan MD [facility] 05-27-2024 Miscellaneous Notes noted and agree. Carmelita Millan MD Pt states she has adverse reaction to Atarax-states she gets opposite reaction to this medication. States she has an Rx for Lorazepam and will just take this if feeling anxious and will plan to take her Tizanidine (she takes for back pain) prior to procedure. Tri Alonzo RN my apologies, thought I sent tablet. Corrected. Carmelita Millan MD And EMB/ECC. Rx sent. Can take 1/2 tablet and 30 min take rest if desires. Carmelita Millan MD Patient notified. Scheduled colp 06/24. Asking if she can have something to relax her prior to the procedure because they are painful. Aware she would need a public transit trolley driver and that RR returns tomorrow. Aliyah Khoury, RN Pap atypical glandular cells, HPV neg. She will need another colp this year. Order filed. Angela Haq APRN.ANISHA documented in this encounter [facility] 05-26-2024 Telephone encounter Note Pt states she has adverse reaction to Atarax-states she gets opposite reaction to this medication. States she has an Rx for Lorazepam and will just take this if feeling anxious and will plan to take her Tizanidine (she takes for back pain) prior to procedure. Tri Alonzo RN [facility] 05-26-2024 Telephone encounter Note my apologies, thought I sent tablet. Corrected. Carmelita Millan MD [facility] 05-26-2024 Telephone encounter Note And EMB/ECC. Rx sent. Can take 1/2 tablet and 30 min take rest if desires. Carmelita Millan MD [facility] 05-26-2024 Telephone encounter Note Patient notified. Scheduled colp 06/24. Asking if she can have something to relax her prior to the procedure because they are painful. Aware she would need a public transit trolley driver and that RR returns tomorrow. Aliyah Khoury, BRIT [facility] 05-26-2024 Telephone encounter Note Pap atypical glandular cells, HPV neg. She will need another colp this year. Order filed. Angela Haq APRN.ANISHA [facility] 05-26-2024 Telephone encounter Note Prescription Refill Information The last office visit in the department: 05/16/24 Does the patient have a future office visit with this provider/department: Yes Requested Prescriptions Pending Prescriptions Disp Refills tiZANidine (ZANAFLEX) 4 mg tablet 90 tablet 0 Sig: Take 1/2 - 1 tablet oral Three times a day , PRN as needed for 30 Days Items addressed in this encounter: Refill Encounter Maribell Nicholas MA May 26, 2024 11:27 AM 11:27 AM [facility] 05-26-2024 Miscellaneous Notes Prescription Refill Information The last office visit in the department: 05/16/24 Does the patient have a future office visit with this provider/department: Yes Requested Prescriptions Pending Prescriptions Disp Refills tiZANidine (ZANAFLEX) 4 mg tablet 90 tablet 0 Sig: Take 1/2 - 1 tablet oral Three times a day , PRN as needed for 30 Days Items addressed in this encounter: Refill Encounter Maribell Nicholas MA May 26, 2024 11:27 AM 11:27 AM documented in this encounter [facility] 05-22-2024 Telephone encounter Note Items addressed in this encounter: MyChart Encounter Maribell Nicholas MA May 22, 2024 7:59 AM 7:59 AM [facility] 05-22-2024 Miscellaneous Notes Items addressed in this encounter: MyChart Encounter Maribell Nicholas MA May 22, 2024 7:59 AM 7:59 AM documented in this encounter [facility] 05-19-2024 Note HNO ID: [id number] Author: ANGELA HAQ APRN.QUANTITATIVE ANALYST MARKETING Service: ? Author Type: Nurse Practitioner Type: Progress Notes Filed: 05/19/2024 15:07 Note Text: Patient declined consumer relations specialist. Fadumo presents for removal of IUD due to pain. UNIVERSAL PROTOCOL / SAFETY CHECKLIST Procedure to be Performed: Liletta Intrauterine device. Sign In: A Moment of CARE was completed. Personnel directly involved with the procedure wore the appropriate PPE (Personal Protective Equipment). Patient/Surrogate Stated/Verified: PATIENT VERIFIED(optional for EMERGENT procedures): Patient name, Date of , Relevant allergies, and The intended procedure Time Out Communication: Intended patient and procedure match the source documents. Consent documented and matches the intended procedure. Sign Out: SIGN OUT (optional for EMERGENT procedures): No specimen collected. No instruments, equipment or retained foreign bodies applicable. Post-procedure follow-up management communicated and Plan of Care Visit completed when applicable. PROCEDURE: Speculum placed in vagina, IUD string visualized and grasped with ring forceps. ASSESSMENT/PLAN: IUD removed without difficulty, intact, and patient tolerated procedure well. Contraception plans: Nuvaring short term Pap collected today Angela Haq APRN.CNP [facility] 05-19-2024 History of Present illness Narrative Patient declined consumer relations specialist. Fadumo presents for removal of IUD due to pain. UNIVERSAL PROTOCOL / SAFETY CHECKLIST Procedure to be Performed: Liletta Intrauterine device. Sign In: A Moment of CARE was completed. Personnel directly involved with the procedure wore the appropriate PPE (Personal Protective Equipment). Patient/Surrogate Stated/Verified: PATIENT VERIFIED(optional for EMERGENT procedures): Patient name, Date of , Relevant allergies, and The intended procedure Time Out Communication: Intended patient and procedure match the source documents. Consent documented and matches the intended procedure. Sign Out: SIGN OUT (optional for EMERGENT procedures): No specimen collected. No instruments, equipment or retained foreign bodies applicable. Post-procedure follow-up management communicated and Plan of Care Visit completed when applicable. PROCEDURE: Speculum placed in vagina, IUD string visualized and grasped with ring forceps. ASSESSMENT/PLAN: IUD removed without difficulty, intact, and patient tolerated procedure well. Contraception plans: Nuvaring short term Pap collected today Angela Haq APRN.CNP documented in this encounter [facility] 05-19-2024 Note HNO ID: [id number] Author: ?, ?, ? Service: ? Author Type: ? Type: Progress Notes Filed: 05/19/2024 14:31 Note Text: POPULATION HEALTH NAVIGATION OUTREACH Action/[facility] Support: Called pt to schedule an appt in Pain Management. Spoke w/ pt, Will call back later to schedule appt. Patient stated that she is currently in training at her new job, and cannot take off of work yet Reason for Outreach Care Gap/HCC or Scheduling Wellness Visits Care Gaps due: N/A Patient Contacted: Spoke to patient/parent/or legal guardian Patient identified by name and : No Navigation Signature: Oswald Vega May 19, 2024 2:30 PM [facility] 05-19-2024 History of Present illness Narrative POPULATION HEALTH NAVIGATION OUTREACH Action/[facility] Support: Called pt to schedule an appt in Pain Management. Spoke w/ pt, Will call back later to schedule appt. Patient stated that she is currently in training at her new job, and cannot take off of work yet Reason for Outreach Care Gap/HCC or Scheduling Wellness Visits Care Gaps due: N/A Patient Contacted: Spoke to patient/parent/or legal guardian Patient identified by name and : No Navigation Signature: Oswald Vega May 19, 2024 2:30 PM documented in this encounter [facility] 05-19-2024 Note Patient Outreach (KEVIN TNAV) FADUMO HENSLEY ([id number]) 1995 F Date Time Provider Department 05/19/24 NO PCP RYAN During your visit today, we recorded the following information about you: Oswald Vega 05/19/2024 2:31 PM Signed POPULATION HEALTH NAVIGATION OUTREACH Action/[facility] Support: Called pt to schedule an appt in Pain Management. Spoke w/ pt, Will call back later to schedule appt. Patient stated that she is currently in training at her new job, and cannot take off of work yet Reason for Outreach Care Gap/HCC or Scheduling Wellness Visits Care Gaps due: N/A Patient Contacted: Spoke to patient/parent/or legal guardian Patient identified by name and : No Navigation Signature: Oswald Vega May 19, 2024 2:30 PM Allergies As of Date: 05/19/2024 Noted Allergy Reaction ZYRTEC (CETIRIZINE HCL) 05/08/2006 5 - Intolerance Comments: tremors Date Reviewed: 03/28/2024 Reviewed by: Kaylen Morrow, BRIT - Fully Assessed Prescriptions as of 05/19/2024 - citalopram (CELEXA) 20 mg tablet Take 2 tablets by mouth once daily. - semaglutide (OZEMPIC) 0.25 mg or 0.5 mg (2 mg/3 mL) pen Inject 0.25 mg subcutaneously one time a week. - tiZANidine (ZANAFLEX) 4 mg tablet Take 1/2 - 1 tablet oral Three times a day , PRN as needed for 30 Days - keTORolac (TORADOL) 10 mg tablet Take 1 tablet by mouth every 6 hours as needed. For up to 5 days - acetaminophen (TYLENOL 8 HOUR) 650 mg CR tablet Take 1 tablet by mouth every 8 hours as needed. - lisdexamfetamine (VYVANSE) 40 mg capsule Take 1 capsule by mouth once daily for 30 days. - cloNIDine HCl (CATAPRES) 0.1 mg tablet Take 1 tablet by mouth once daily as needed (Anxiety). - SUMAtriptan (IMITREX) 100 mg tablet Take 1 tablet (100 mg) by mouth as needed. TAKE ONE (1) TABLET EVERY 2 HOURS WITH A MAXIMUM DOSE OF 200 MG PER DAY NEEDED FOR HEADACHE - levonorgestrel (LILETTA) 20.4 mcg/24 hrs (8 yrs) 52 mg IUD 1 Each by INTRAUTERINE route as directed. Problem List As Of Date 05/19/2024 Noted Resolved Attention deficit disorder [F98.8] 11/27/2007 Telangiectasia [I78.1] 01/27/2010 09/18/2019 Rosacea [L71.9] 01/27/2010 09/18/2019 Other acne [L70.8] 01/27/2010 09/18/2019 Depression [F32.A] 05/26/2011 09/18/2019 Tobacco use in [O99.330] 04/18/2012 10/08/2012 History of depression [Z86.59] 04/18/2012 01/01/2023 History of alcohol abuse [F10.11] 04/18/2012 01/01/2023 Family history of congenital heart defect [Z82.*04/18/2012 01/01/2023 with adoption planned [Z34.90] 04/22/2012 10/08/2012 Chlamydia infection [A74.9] 09/23/2013 09/18/2019 Routine gynecological examination [Z01.419] 12/09/2014 09/18/2019 Family history of leukemia [Z80.6] 02/04/2015 01/01/2023 Vapes nicotine containing substance [Z72.0] 09/07/2015 01/01/2023 Bulging of intervertebral disc between L4 and L*09/07/2015 Migraine without aura and without status migrai*09/07/2015 Uncomplicated asthma [J45.909] 09/07/2015 09/18/2019 Drug abuse (HCC) [F19.10] 09/10/2015 Hepatitis C [B19.20] 2018 ASCUS with positive high risk HPV cervical [R87*09/26/2019 01/01/2023 Intractable low back pain [M54.59] 04/27/2020 Urinary incontinence [R32] 04/27/2020 04/28/2020 Nicotine use disorder, F17.2 [F17.200] 04/27/2020 Mild intermittent asthma without complication [*08/03/2020 Basal cell carcinoma (BCC) of scalp [C44.41] 12/09/2020 HSIL (high grade squamous intraepithelial lesio*01/10/2022 01/01/2023 Spotting in early [O26.859] 04/13/2022 01/01/2023 Engages in vaping [Z72.89] 04/13/2022 01/01/2023 History of macrosomia in infant in prior pregna*04/13/2022 01/01/2023 Patient request for diagnostic testing [Z01.89] 04/13/2022 01/01/2023 Needle stick, hypodermic, accidental, initial e*08/14/2022 01/01/2023 Positive GBS test [B95.1] 11/06/2022 01/01/2023 Elevated glucose [R73.09] 11/06/2022 01/01/2023 Anemia [D64.9] 11/06/2022 01/01/2023 Abnormal glucose complicating [O99.81*11/08/2022 01/01/2023 Anemia during in third trimester [O99*11/08/2022 01/01/2023 Diet controlled gestational diabetes mellitus (*11/08/2022 01/01/2023 High grade squamous intraepithelial lesion (HGS*01/01/2023 Encounter Status:Closed by OSWALD VEGA on 05/19/24 [facility] 05-16-2024 Note HNO ID: [id number] Author: KEATON TRACY MD Service: ? Author Type: Physician Type: Progress Notes Filed: 08/08/2024 11:49 Note Text: Appointment cancelled/rescheduled or patient did not log in for appt. Keaton Tracy MD [facility] 05-16-2024 History of Present illness Narrative Appointment cancelled/rescheduled or patient did not log in for appt. Keaton Tracy MD documented in this encounter [facility] 05-16-2024 Note HNO ID: [id number] Author: KEATON TRACY MD Service: ? Author Type: Physician Type: Progress Notes Filed: 05/16/2024 12:39 Note Text: Telemedicine Visit - Distance Health Virtual Visit Note Patient seen on ilustrum video visit platform. Location of patient: [place] I have communicated my name and active licensure. The patient's identity and physical location were verified at the time of this visit. Either the patient or their legal artist representative has been informed of the risks and benefits of -- and alternatives to -- treatment through a remote evaluation and consents to proceed with the evaluation remotely. History of Present Illness 28 yo F presenting for f/u 1) ADHD - Vyvanse. Seeing psych 2) Panic attacks - Seeing psychiatry. 3) Migraine - Prn triptan. Sees neurology. 4) Hep C - Last RNA negative. Recent mild transaminitis and elevated bili. Repeat hep C RNA ordered. 5) H/o abnormal pap - Sees research recruiter. Due for follow-up. 6) Smoker - Pre-contemplative. 7) Chronic back pain - Muscle relaxants. 8) Overweight - GLP1as not covered. Did not tolerate Topamax. Did not have effect with Wellbutrin. We could consider Metformin. Adipex is contraindicated by use of Vyvanse. Has new insurance, would like to retry approval for Ozempic. 9) Adrenal adenoma - MRI suggested benign lesion. Hormonal testing ordered by endo 10) RBBB - Noted on last ECG. Scheduled with cardiology. PAST MEDICAL HISTORY Diagnosis Date Appendicitis ASCUS with positive high risk HPV cervical 09/26/2019 Asthma 11/29/2011 ATTN DEFICIT NONHYPERACT 11/27/2007 Bulging of intervertebral disc between L4 and L5 and L5 and S1 09/07/2015 Chest pain 04/29/2010 Chlamydia infection 09/23/2013 Depression 05/26/2011 Depression complicating , antepartum 08/02/2012 Diet controlled gestational diabetes mellitus (GDM) in second trimester 11/08/2022 11/08/22- 2 levels out of 3 elevated. Supplies and referrals ordered. Sulma Bartholomew APRN.JULISSA Generalized anxiety disorder GERD (gastroesophageal reflux disease) Hepatitis C 2017 2018 cured after medication course. High grade squamous intraepithelial cervical dysplasia History of suicide attempt 2014 cutting wrist Juvenile osteochondrosis of lower extremity, excluding foot 2004, resolved Kidney stones Migraine headache 05/26/2011 other Sever's Disease, 2006, resolved Other acne 01/27/2010 Pain in joint, site unspecified AC joint tear, 2005 Patient requested diagnostic testing 04/18/2012 04/18/2012 Patient desires early screening in with sequential testing. Poor support system complicating 04/18/2012 04/18/2012The father of the baby is aware that she is , but does not wish to be involved. Patient states her parents are very supportive. Patient is tearful for some of this visit today due to the father of the baby. She states he has put pressure on her in the past to have an , but she does not wish to do that. Patient was given a brochure on the care center and WIC. depression PTSD (post-traumatic stress disorder) Rosacea 01/27/2010 Rubella non-immune status 04/22/2012 Skin cancer Teen 04/22/2012 July 04, 2012 Flu vaccine given Telangiectasia 01/27/2010 Tobacco use disorder Current Outpatient Medications on File Prior to Visit Medication Sig tiZANidine (ZANAFLEX) 4 mg tablet Take 1/2 - 1 tablet oral Three times a day , PRN as needed for 30 Days keTORolac (TORADOL) 10 mg tablet Take 1 tablet by mouth every 6 hours as needed. For up to 5 days acetaminophen (TYLENOL 8 HOUR) 650 mg CR tablet Take 1 tablet by mouth every 8 hours as needed. citalopram (CELEXA) 20 mg tablet Take 1 tablet by mouth once daily. (Patient taking differently: Take 40 mg by mouth once daily.) lisdexamfetamine (VYVANSE) 40 mg capsule Take 1 capsule by mouth once daily for 30 days. cloNIDine HCl (CATAPRES) 0.1 mg tablet Take 1 tablet by mouth once daily as needed (Anxiety). metFORMIN ER (GLUCOPHAGE XR) 500 mg 24 hr tablet Take 1 tablet by mouth daily with breakfast. (Patient not taking: Reported on 02/09/2024) SUMAtriptan (IMITREX) 100 mg tablet Take 1 tablet (100 mg) by mouth as needed. TAKE ONE (1) TABLET EVERY 2 HOURS WITH A MAXIMUM DOSE OF 200 MG PER DAY NEEDED FOR HEADACHE levonorgestrel (LILETTA) 20.4 mcg/24 hrs (8 yrs) 52 mg IUD 1 Each by INTRAUTERINE route as directed. No current facility-administered medications on file prior to visit. Social History Tobacco Use Smoking status: Former Current packs/day: 1.00 Average packs/day: 1 pack/day for 9.0 years (9.0 ttl pk-yrs) Types: Cigarettes Smokeless tobacco: Current Tobacco comments: Vapes Vaping Use Vaping status: current everyday user Substances: Nicotine Devices: Pre-filled or refillable cartridge Substance Use Topics Alcohol use: Not Currently Drug use: Not Currently Types: Heroin, Ma (more content not included)... [facility] 05-16-2024 History of Present illness Narrative Telemedicine Visit - Distance Health Virtual Visit Note Patient seen on ilustrum video visit platform. Location of patient: [place] I have communicated my name and active licensure. The patient's identity and physical location were verified at the time of this visit. Either the patient or their legal artist representative has been informed of the risks and benefits of -- and alternatives to -- treatment through a remote evaluation and consents to proceed with the evaluation remotely. History of Present Illness 28 yo F presenting for f/u 1) ADHD - Vyvanse. Seeing psych 2) Panic attacks - Seeing psychiatry. 3) Migraine - Prn triptan. Sees neurology. 4) Hep C - Last RNA negative. Recent mild transaminitis and elevated bili. Repeat hep C RNA ordered. 5) H/o abnormal pap - Sees research recruiter. Due for follow-up. 6) Smoker - Pre-contemplative. 7) Chronic back pain - Muscle relaxants. 8) Overweight - GLP1as not covered. Did not tolerate Topamax. Did not have effect with Wellbutrin. We could consider Metformin. Adipex is contraindicated by use of Vyvanse. Has new insurance, would like to retry approval for Ozempic. 9) Adrenal adenoma - MRI suggested benign lesion. Hormonal testing ordered by endo 10) RBBB - Noted on last ECG. Scheduled with cardiology. PAST MEDICAL HISTORY Diagnosis Date Appendicitis ASCUS with positive high risk HPV cervical 09/26/2019 Asthma 11/29/2011 ATTN DEFICIT NONHYPERACT 11/27/2007 Bulging of intervertebral disc between L4 and L5 and L5 and S1 09/07/2015 Chest pain 04/29/2010 Chlamydia infection 09/23/2013 Depression 05/26/2011 Depression complicating , antepartum 08/02/2012 Diet controlled gestational diabetes mellitus (GDM) in second trimester 11/08/2022 11/08/22- 2 levels out of 3 elevated. Supplies and referrals ordered. Sulma Bartholomew APRN.JULISSA Generalized anxiety disorder GERD (gastroesophageal reflux disease) Hepatitis C 2017 2018 cured after medication course. High grade squamous intraepithelial cervical dysplasia History of suicide attempt 2014 cutting wrist Juvenile osteochondrosis of lower extremity, excluding foot 2004, resolved Kidney stones Migraine headache 05/26/2011 other Sever's Disease, 2006, resolved Other acne 01/27/2010 Pain in joint, site unspecified AC joint tear, 2005 Patient requested diagnostic testing 04/18/2012 04/18/2012 Patient desires early screening in with sequential testing. Poor support system complicating 04/18/2012 04/18/2012The father of the baby is aware that she is , but does not wish to be involved. Patient states her parents are very supportive. Patient is tearful for some of this visit today due to the father of the baby. She states he has put pressure on her in the past to have an , but she does not wish to do that. Patient was given a brochure on the care center and WIC. depression PTSD (post-traumatic stress disorder) Rosacea 01/27/2010 Rubella non-immune status 04/22/2012 Skin cancer Teen 04/22/2012 July 04, 2012 Flu vaccine given Telangiectasia 01/27/2010 Tobacco use disorder Current Outpatient Medications on File Prior to Visit Medication Sig tiZANidine (ZANAFLEX) 4 mg tablet Take 1/2 - 1 tablet oral Three times a day , PRN as needed for 30 Days keTORolac (TORADOL) 10 mg tablet Take 1 tablet by mouth every 6 hours as needed. For up to 5 days acetaminophen (TYLENOL 8 HOUR) 650 mg CR tablet Take 1 tablet by mouth every 8 hours as needed. citalopram (CELEXA) 20 mg tablet Take 1 tablet by mouth once daily. (Patient taking differently: Take 40 mg by mouth once daily.) lisdexamfetamine (VYVANSE) 40 mg capsule Take 1 capsule by mouth once daily for 30 days. cloNIDine HCl (CATAPRES) 0.1 mg tablet Take 1 tablet by mouth once daily as needed (Anxiety). metFORMIN ER (GLUCOPHAGE XR) 500 mg 24 hr tablet Take 1 tablet by mouth daily with breakfast. (Patient not taking: Reported on 02/09/2024) SUMAtriptan (IMITREX) 100 mg tablet Take 1 tablet (100 mg) by mouth as needed. TAKE ONE (1) TABLET EVERY 2 HOURS WITH A MAXIMUM DOSE OF 200 MG PER DAY NEEDED FOR HEADACHE levonorgestrel (LILETTA) 20.4 mcg/24 hrs (8 yrs) 52 mg IUD 1 Each by INTRAUTERINE route as directed. No current facility-administered medications on file prior to visit. Social History Tobacco Use Smoking status: Former Current packs/day: 1.00 Average packs/day: 1 pack/day for 9.0 years (9.0 ttl pk-yrs) Types: Cigarettes Smokeless tobacco: Current Tobacco comments: Vapes Vaping Use Vaping status: current everyday user Substances: Nicotine Devices: Pre-filled or refillable cartridge Substance Use Topics Alcohol use: Not Currently Drug use: Not Currently Types: Heroin, Marijuana Comment: Patient states I have used multiple drugs in the past Video Exam (Examination performed via Video enabled technology) General appearance: Alert, oriented, pleasant, in NAD :Yes Ill appearing :No Lethargic appearing :No Respiratory distress :No ASSESSMENT/PLAN: 1. RBBB - ICD9: 426.4, ICD10: I45.10 (primary diagnosis) Scheduled with cardiology 2. Chronic midline low back pain without sciatica - ICD9: 724.2, 338.29, ICD10: M54.50, G89.29 Consult to pain mgmt - CONSULT TO PAIN MGT 3. ADHD (attention deficit hyperactivity disorder), inattentive type - ICD9: 314.00, ICD10: F90.0 Sees psychiatry 4. Anxiety with depression - ICD9: 300.4, ICD10: F41.8 Seeing psychiatry 5. Migraine with aura, not intractable, without status migrainosus - ICD9: 346.00, ICD10: G43.109 Stable Continue current medications 6. Degeneration of intervertebral disc of lumbar region with discogenic back pain - ICD9: 722.52, ICD10: M51.360 Consult to pain mgmt - CONSULT TO PAIN MGT 7. Class 1 obesity due to excess calories without serious comorbidity with body mass index (BMI) of 30.0 to 30.9 in adult - ICD9: 278.00, V85.30, ICD10: E66.811, E66.09, Z68.30 Weight increasing - Behavioral and pharmacological intervention Ozempic, if covered Update me in 1 month F/u 3 months - SEMAGLUTIDE 0.25 MG OR 0.5 MG (2 MG/3 ML) SUBCUTANEOUS PEN INJECTOR 8. Screening for cervical cancer - ICD9: V76.2, ICD10: Z12.4 Recommend gynecology f/u - CONSULT TO GYNECOLOGY Keaton Tracy MD documented in this encounter [facility] 04-29-2024 Note Addended by: KEATON TRACY on: 04/29/2024 02:52 PM Modules accepted: Orders [facility] 04-29-2024 Miscellaneous Notes Addended by: KEATON TRACY on: 04/29/2024 02:52 PM Modules accepted: Orders Items addressed in this encounter: MyChart Encounter Maribell Nicholas MA April 29, 2024 1:35 PM 1:35 PM Patient calling to check on request. Please review MyChart message and notify patient if request can or cannot be accommodated. Zuleyma Castrejon documented in this encounter [facility] 04-29-2024 Telephone encounter Note Items addressed in this encounter: MyChart Encounter Maribell Nicholas MA April 29, 2024 1:35 PM 1:35 PM [facility] 04-29-2024 Telephone encounter Note Patient calling to check on request. Please review MyChart message and notify patient if request can or cannot be accommodated. Zuleyma Castrejon [facility] 04-16-2024 Emergency department Note Attempted to find patient at this time, not to be found in room. Appears patient eloped from ED at this time, aware [facility] 04-16-2024 Emergency department Note Attempted to find patient at this time, not to be found in room. Appears patient eloped from ED at this time, MD aware documented in this encounter [facility] 04-15-2024 Emergency department Note Chief Complaint Patient presents with Dental Pain Right lower dental pain/swelling. Finished clindamycin this morning. Referred to ED by dentist d/t swelling going into neck Patient History Past Medical History: Diagnosis Date Abnormal Pap smear of cervix 2020 ADHD (attention deficit hyperactivity disorder) Anxiety Cancer of skin of scalp Chronic back pain Depression HPV in female Kidney stones Spina bifida (Multi) 2013 Spinal stenosis Urinary tract infection 08/2023 Past Surgical History: Procedure Laterality Date CERVICAL BIOPSY W/ LOOP ELECTRODE EXCISION WISDOM TOOTH EXTRACTION Family History Problem Relation Name Age of Onset Hypertension Mother Verna Hensley Cancer Mother Verna Hensley Heart disease Mother Veran Hensley Hypertension Father Cristhian Henslye Kidney disease Father Cristhian Hensley Diabetes Father Cristhain Hensley Heart disease Father Cristhian Hensley Other (skin scalp cancer) Sister Heart disease Maternal Grandfather Ruddy Sarkar Social History Social History Narrative Not on file Allergies Allergen Reactions Cetirizine Other, Palpitations and Shortness of breath Tension all over body. tremors PMH: Reviewed PSH: Reviewed Social History: Reviewed. Allergies reviewed. HPI: Fadumo Hensley is a 28 y.o. female who presents to the ED today unaccompanied, dropped off by family, with complaints of right sided facial swelling with dental pain. States she has had dental pain for about a month, from a fractured tooth, that needs pulled. She was on amoxicillin but changed to clindamycin which she finished this morning. She has increased swelling now. Had a tele-visit with her PCP who prescribed augmentin. Went then to a walk-in dental clinic this morning but was referred to the ED for the swelling. PHYSICAL EXAM: GENERAL: Vitals noted, no distress. Alert and oriented x 3. Non-toxic. HEAD: Normocephalic, atraumatic. Pupils equally round and reactive to light. EOMI. TMs clear. Right sided facial edema without erythema. No trismus. Overall poor dentition with lower gumline swelling. NECK: Supple. No midline or paraspinal tenderness through full range of motion. CARDIAC: Regular rate, rhythm. No murmurs or rubs. RESPIRATORY: Lungs clear and equal bilaterally. No respiratory distress. MUSCULOSKELETAL & SKIN: Warm, dry, and intact. No rash/lesions. No peripheral edema. NEURO: No focal neurologic deficits, acting appropriately. Labs Reviewed CBC WITH AUTO DIFFERENTIAL - Abnormal Result Value WBC 10.1 nRBC 0.0 RBC 3.84 (*) Hemoglobin 12.0 Hematocrit 35.1 (*) MCV 91 MCH 31.3 MCHC 34.2 RDW 11.9 Platelets 242 Neutrophils % 65.4 Immature Granulocytes %, Automated 0.3 Lymphocytes % 27.0 Monocytes % 6.2 Eosinophils % 0.9 Basophils % 0.2 Neutrophils Absolute 6.60 Immature Granulocytes Absolute, Automated 0.03 Lymphocytes Absolute 2.73 Monocytes Absolute 0.63 Eosinophils Absolute 0.09 Basophils Absolute 0.02 COMPREHENSIVE METABOLIC PANEL - Normal Glucose 93 Sodium 137 Potassium 3.7 Chloride 107 Bicarbonate 24 Anion Gap 10 Urea Nitrogen 12 Creatinine 0.62 eGFR >90 Calcium 8.9 Albumin 4.4 Alkaline Phosphatase 86 Total Protein 7.3 AST 18 Bilirubin, Total 0.9 ALT 19 LACTATE - Normal Lactate 0.8 Narrative: Venipuncture immediately after or during the administration of Metamizole may lead to falsely low results. Testing should be performed immediately prior to Metamizole dosing. CT soft tissue neck w IV contrast Final Result Extensive right facial fat stranding, soft tissue swelling, and inflammatory change extending inferiorly along the right neck but most pronounced along the right mandible. There is periapical lucency associated with the residual posterior-most right mandibular tooth with loss of overlying cortex suspicious for periapical abscess. There is otherwise poor dentition with multiple missing teeth, dental caries, and periapical lucencies. Correlation with a dental examination is recommended. MACRO: None Signed by: Aliyah Betancourt 04/15/2024 2:51 PM Dictation workstation: [id number] Medical Decision Making ED COURSE: This patient was seen and examined by myself independently. IV established. Labs drawn and noted above. Hydrated with NS 1L bolus. Medicated with toradol, solu-medrol, morphine, and zofran. Labs unremarkable. CT noted above with periapical abscess noted. Dental balls provided for the patient. I attempted aspiration with an 18g needle as well as making an incision with an 11blade scalpel of the gumline abscess without purulent drainage. She already has an augmentin prescription. Recommedned warm compresses and oral antibiotics. Follow up with dentistry. She is discharged home in a stable condition with computer instructions given and is encouraged to return to the ER for any new or worsening symptoms. DIAGNOSTIC IMPRESSION: #1 dental abscess YAMILET Regan 04/15/24 1645 documented in this encounter [facility] Work Phone: 04-15-2024 Physician Emergency department Note Chief Complaint Patient presents with Dental Pain Right lower dental pain/swelling. Finished clindamycin this morning. Referred to ED by dentist d/t swelling going into neck Patient History Past Medical History: Diagnosis Date Abnormal Pap smear of cervix 2020 ADHD (attention deficit hyperactivity disorder) Anxiety Cancer of skin of scalp Chronic back pain Depression HPV in female Kidney stones Spina bifida (Multi) 2013 Spinal stenosis Urinary tract infection 08/2023 Past Surgical History: Procedure Laterality Date CERVICAL BIOPSY W/ LOOP ELECTRODE EXCISION WISDOM TOOTH EXTRACTION Family History Problem Relation Name Age of Onset Hypertension Mother Verna Hensley Cancer Mother Verna Hensley Heart disease Mother Verna Hensley Hypertension Father Cristhian Hensley Kidney disease Father Cristhian Hensley Diabetes Father Cristhian Hensley Heart disease Father Cristhian Hensley Other (skin scalp cancer) Sister Heart disease Maternal Grandfather Ruddy Sarkar Social History Social History Narrative Not on file Allergies Allergen Reactions Cetirizine Other, Palpitations and Shortness of breath Tension all over body. tremors PMH: Reviewed PSH: Reviewed Social History: Reviewed. Allergies reviewed. HPI: Fadumo Hensley is a 28 y.o. female who presents to the ED today unaccompanied, dropped off by family, with complaints of right sided facial swelling with dental pain. States she has had dental pain for about a month, from a fractured tooth, that needs pulled. She was on amoxicillin but changed to clindamycin which she finished this morning. She has increased swelling now. Had a tele-visit with her PCP who prescribed augmentin. Went then to a walk-in dental clinic this morning but was referred to the ED for the swelling. PHYSICAL EXAM: GENERAL: Vitals noted, no distress. Alert and oriented x 3. Non-toxic. HEAD: Normocephalic, atraumatic. Pupils equally round and reactive to light. EOMI. TMs clear. Right sided facial edema without erythema. No trismus. Overall poor dentition with lower gumline swelling. NECK: Supple. No midline or paraspinal tenderness through full range of motion. CARDIAC: Regular rate, rhythm. No murmurs or rubs. RESPIRATORY: Lungs clear and equal bilaterally. No respiratory distress. MUSCULOSKELETAL & SKIN: Warm, dry, and intact. No rash/lesions. No peripheral edema. NEURO: No focal neurologic deficits, acting appropriately. Labs Reviewed CBC WITH AUTO DIFFERENTIAL - Abnormal Result Value WBC 10.1 nRBC 0.0 RBC 3.84 (*) Hemoglobin 12.0 Hematocrit 35.1 (*) MCV 91 MCH 31.3 MCHC 34.2 RDW 11.9 Platelets 242 Neutrophils % 65.4 Immature Granulocytes %, Automated 0.3 Lymphocytes % 27.0 Monocytes % 6.2 Eosinophils % 0.9 Basophils % 0.2 Neutrophils Absolute 6.60 Immature Granulocytes Absolute, Automated 0.03 Lymphocytes Absolute 2.73 Monocytes Absolute 0.63 Eosinophils Absolute 0.09 Basophils Absolute 0.02 COMPREHENSIVE METABOLIC PANEL - Normal Glucose 93 Sodium 137 Potassium 3.7 Chloride 107 Bicarbonate 24 Anion Gap 10 Urea Nitrogen 12 Creatinine 0.62 eGFR >90 Calcium 8.9 Albumin 4.4 Alkaline Phosphatase 86 Total Protein 7.3 AST 18 Bilirubin, Total 0.9 ALT 19 LACTATE - Normal Lactate 0.8 Narrative: Venipuncture immediately after or during the administration of Metamizole may lead to falsely low results. Testing should be performed immediately prior to Metamizole dosing. CT soft tissue neck w IV contrast Final Result Extensive right facial fat stranding, soft tissue swelling, and inflammatory change extending inferiorly along the right neck but most pronounced along the right mandible. There is periapical lucency associated with the residual posterior-most right mandibular tooth with loss of overlying cortex suspicious for periapical abscess. There is otherwise poor dentition with multiple missing teeth, dental caries, and periapical lucencies. Correlation with a dental examination is recommended. MACRO: None Signed by: Aliyah Betancourt 04/15/2024 2:51 PM Dictation workstation: [id number] Medical Decision Making ED COURSE: This patient was seen and examined by myself independently. IV established. Labs drawn and noted above. Hydrated with NS 1L bolus. Medicated with toradol, solu-medrol, morphine, and zofran. Labs unremarkable. CT noted above with periapical abscess noted. Dental balls provided for the patient. I attempted aspiration with an 18g needle as well as making an incision with an 11blade scalpel of the gumline abscess without purulent drainage. She already has an augmentin prescription. Recommedned warm compresses and oral antibiotics. Follow up with dentistry. She is discharged home in a stable condition with computer instructions given and is encouraged to return to the ER for any new or worsening symptoms. DIAGNOSTIC IMPRESSION: #1 dental abscess YAMILET Regan 04/15/245 [facility] Work Phone: 04-15-2024 History of Present illness Narrative DISTANCE HEALTH VISIT This Team Access Model visit is a virtual encounter. It required patient-provider interaction for the medical decision making as documented below. I have communicated my name and active licensure. The patient's identity and physical location were verified at the time of this visit. Either the patient or their legal artist representative has been informed of the risks and benefits of -- and alternatives to -- treatment through a remote evaluation and consents to proceed with the evaluation remotely. Fadumo Hensley is a 28 year old female seen for ongoing dental issues. Patient tooth pain/dental infection. Denies fever, chills, n/v/d. No submandibular edema. Multiple provider/ER visits. She was to have a root canal on 03-28-24 but had a panic attack and the appointment was canceled. Patient has not re-scheduled with her dentist. Patient is requesting abx and toradol until she can see her dentist. Strongly recommend patient reschedule the appointment for root canal. Will send abx and toradol. Red flags reviewed and when to seek emergent evaluation. HISTORY REVIEWED (electronic chart updated): - medical history - medications - allergies REVIEW OF SYSTEMS: GENERAL: feeling well without fatigue, no recent change in weight, no fever, activity level is normal, dental hx reviewed RESPIRATORY: no cough, no wheezing or shortness of breath CARDIOVASCULAR: no chest pain, no palpitations All other ROS: negative As noted in HPI PHYSICAL EXAMINATION: VIDEO EXAM: (if done, performed via video enabled technology) GENERAL: alert and appropriate, in no distress, well-hydrated, well nourished, and happy, smiling, interactive RESPIRATORY: breathing non-labored CHEST: equal chest rise with normal respiratory effort ASSESSMENT: (K08.89) Pain, dental (primary encounter diagnosis) (K04.7) Dental infection PLAN: Schedule with dentist for recurrent dental infection There are no Patient Instructions on file for this visit. Koki Wheatley PA-C documented in this encounter [facility] 04-11-2024 Note . MICRO - Microbiology PROCEDURE: Blood Culture (bacterial) [*1] SOURCE: Blood BODY SITE: COLLECTED DATE/TIME: 04/10/2024 20:37 EDT RECEIVED DATE/TIME: 04/11/2024 16:20 EDT START DATE/TIME: 04/11/2024 16:20 EDT FREE TEXT SOURCE: PRELIMINARY REPORTS Preliminary Report [] Verified Date/Time/Personnel: 04/11/2024 16:59 EDT Culture has been received in lab and is no growth to date. Routine cultures are held for 5 days. Performing Locations *1: This test was performed at: [facility], [address] [place] [address], [facility] , [facility] 04-11-2024 Note . MICRO - Microbiology PROCEDURE: Blood Culture (bacterial) [*1] SOURCE: Blood BODY SITE: COLLECTED DATE/TIME: 04/10/2024 20:37 EDT RECEIVED DATE/TIME: 04/11/2024 16:20 EDT START DATE/TIME: 04/11/2024 16:20 EDT FREE TEXT SOURCE: PRELIMINARY REPORTS Preliminary Report [] Verified Date/Time/Personnel: 04/11/2024 16:59 EDT Culture has been received in lab and is no growth to date. Routine cultures are held for 5 days. Performing Locations *1: This test was performed at: [facility], [address] [place] [address], [id number] , [facility] 04-11-2024 Hospital Discharge instructions Patient Education 04/10/2024 23:24:49 Viral Syndrome (Adult) Viral Syndrome (Adult) A viral illness may cause a number of symptoms such as fever. Other symptoms depend on the part of the body that the virus affects. If it settles in your nose, throat, and lungs, it may cause cough, sore throat, congestion, runny nose, headache, earache and other ear symptoms, or shortness of breath. If it settles in your stomach and intestinal tract, it may cause nausea, vomiting, cramping, and diarrhea. Sometimes it causes generalized symptoms like aching all over, feeling tired, loss of energy, or loss of appetite. A viral illness usually lasts anywhere from several days to several weeks, but sometimes it lasts longer. In some cases, a more serious infection can look like a viral syndrome in the first few days of the illness. You may need another exam and additional tests to know the difference. Watch for the warning signs listed below for when to seek medical advice. Home care Follow these guidelines for taking care of yourself at home: If symptoms are severe, rest at home for the first 2 to 3 days. Stay away from cigarette smoke - both your smoke and the smoke from others. You may use yuqu-fds-[id number] acetaminophen or ibuprofen for fever, muscle aching, and headache, unless another medicine was prescribed for this. If you have chronic liver or kidney disease or ever had a stomach ulcer or gastrointestinal bleeding, talk with your healthcare provider before using these medicines. No one who is younger than 18 and ill with a fever should take aspirin. It may cause severe disease or . Your appetite may be poor, so a light diet is fine. Avoid dehydration by drinking 8 to 12, 8-ounce glasses of fluids each day. This may include water; orange juice; lemonade; apple, grape, and cranberry juice; clear fruit drinks; electrolyte replacement and sports drinks; and decaffeinated teas and coffee. If you have been diagnosed with a kidney disease, ask your healthcare provider how much and what types of fluids you should drink to prevent dehydration. If you have kidney disease, drinking too much fluid can cause it build up in the your body and be dangerous to your health. Znha-gkf-rowbaaw remedies won't shorten the length of the illness but may be helpful for symptoms such as cough, sore throat, nasal and sinus congestion, or diarrhea. Don't use decongestants if you have high blood pressure. Follow-up care Follow up with your healthcare provider if you do not improve over the next week. Call 911 Call 911 if any of the following occur: Convulsion Feeling weak, dizzy, or like you are going to faint Chest pain, or more than mild shortness of breath When to seek medical advice Call your healthcare provider right away if any of these occur: Cough with lots of colored sputum (mucus) or blood in your sputum Chest pain, shortness of breath, wheezing, or trouble breathing Severe headache; face, neck, or ear pain Severe, constant pain in the lower right side of your belly (abdominal) Continued vomiting (can t keep liquids down) Frequent diarrhea (more than 5 times a day); blood (red or black color) or mucus in diarrhea Feeling weak, dizzy, or like you are going to faint Extreme thirst Fever of 100.4 F (38 C) or higher, or as directed by your healthcare provider [id number] [employer]. [address] [place] [address]. All rights reserved. This information is not intended as a substitute for professional medical care. Always follow your healthcare professional's instructions. Follow Up Care 04/10/2024 20:07:32 With:Call Physician Referral Address:Unknown When:2-[address] [facility] 04-10-2024 Note Discharge Instructions Thank you for allowing [facility] to assist you with your healthcare needs. The following is important discharge information regarding your hospital visit. Diagnosis from Today's Visit Febrile illness Tachycardia Viral syndrome What to Do Next Instructions from Your Care Team Discharge Return to Work, School, or Sports (Return to Work, School, or Sports) - Ordered -- 04/12/24, May return to: work, 04/10/24 23:24:00 EDT Post Acute Orders No qualifying data available. You Need to Schedule the Following Appointments Follow Up with Call Physician Referral When:Within 2-4 days Allergies ZyrTEC Medications Please ask your primary doctor or pharmacist before taking any other medication not listed, including over the counter drugs, herbal medications, vitamins and or supplements as they may interact with your home medications. What How Much When Instructions Last Dose Unchanged citalopram (citalopram 40 mg oral tablet) 1 tab(s) Unchanged cloNIDine (cloNIDine 0.1 mg oral tablet) 1 tab(s) TAKE 1 TABLET BY MOUTH EVERY DAY NEEDED FOR ANXIETY Unchanged lisdexamfetamine (Vyvanse 40 mg oral capsule) 1 cap by mouth TAKE 1 CAPSULE BY MOUTH EVERY DAY IN THE MORNING Unchanged LORazepam (Ativan 0.5 mg oral tablet) 0.5 tab(s) by mouth Two (2) times a day as needed for anxiety severe Unchanged oxyCODONE (oxyCODONE 5 mg oral tablet ( IMMEDIATE release )) 1 tab(s) by mouth Every 6 hours as needed for for pain Unchanged tiZANidine (tiZANidine 4 mg oral tablet) 1 tab(s) TAKE 1/ 2 TO 1 TABLET BY MOUTH 3 TIMES A DAY NEEDED Please take this list to your next doctor s visit. Bring all medications you take, including over the counter medications, herbals and other supplements with you to your doctor s visit. Patients and families are reminded to discard old lists and to update any records with all medication providers or retail pharmacies. Education Materials Viral Syndrome (Adult) A viral illness may cause a number of symptoms such as fever. Other symptoms depend on the part of the body that the virus affects. If it settles in your nose, throat, and lungs, it may cause cough, sore throat, congestion, runny nose, headache, earache and other ear symptoms, or shortness of breath. If it settles in your stomach and intestinal tract, it may cause nausea, vomiting, cramping, and diarrhea. Sometimes it causes generalized symptoms like aching all over, feeling tired, loss of energy, or loss of appetite. A viral illness usually lasts anywhere from several days to several weeks, but sometimes it lasts longer. In some cases, a more serious infection can look like a viral syndrome in the first few days of the illness. You may need another exam and additional tests to know the difference. Watch for the warning signs listed below for when to seek medical advice. Home care Follow these guidelines for taking care of yourself at home: If symptoms are severe, rest at home for the first 2 to 3 days. Stay away from cigarette smoke - both your smoke and the smoke from others. You may use ipnz-zjn-sbuetfg acetaminophen or ibuprofen for fever, muscle aching, and headache, unless another medicine was prescribed for this. If you have chronic liver or kidney disease or ever had a stomach ulcer or gastrointestinal bleeding, talk with your healthcare provider before using these medicines. No one who is younger than 18 and ill with a fever should take aspirin. It may cause severe disease or . Your appetite may be poor, so a light diet is fine. Avoid dehydration by drinking 8 to 12, 8-ounce glasses of fluids each day. This may include water; orange juice; lemonade; apple, grape, and cranberry juice; clear fruit drinks; electrolyte replacement and sports drinks; and decaffeinated teas and coffee. If you have been diagnosed with a kidney disease, ask your healthcare provider how much and what types of fluids you should drink to prevent dehydration. If you have kidney disease, drinking too much fluid can cause it build up in the your body and be dangerous to your health. Yhlz-dcx-lfhplko remedies won't shorten the length of the illness but may be helpful for symptoms such as cough, sore throat, nasal and sinus congestion, or diarrhea. Don't use decongestants if you have high blood pressure. Follow-up care Follow up with your healthcare provider if you do not improve over the next week. Call 911 Call 911 if any of the following occur: Convulsion Feeling weak, dizzy, or like you are going to faint Chest pain, or more than mild shortness of breath When to seek medical advice Call your healthcare provider right away if any of these occur: Cough with lots of colored sputum (mucus) or blood in your sputum Chest pain, shortness of breath, wheezing, or trouble breathing Severe headache; face, neck, or ear pain Severe, constant pain in the lower right side of your belly (abdominal) Continued vomiting (can t keep liquids down) Frequent diarrhea (more than 5 times a day); blood (red or black color) or mucus in diarrhea Feeling weak, dizzy, or like you are going to faint Extreme thirst Fever of 100.4 F (38 C) or higher, or as directed by your healthcare provider [phone] [employer]. [address] [place] [address], [place] [address]. All rights reserved. This information is not intended as a substitute for professional medical care. Always follow your healthcare professional's instructions. Additional Information VACCINATE! IT SAVES LIVES! Members of the community who have not yet received the COVID-19 vaccine and would like to receive it can visit one of [facility] vaccine clinics. There are many vaccine clinic locations within the [facility]. For locations and available times, please visit www.gettheshot.coronavirus.[place].gov /. It is important to note that some COVID mobile vaccine clinics are held outdoors and may be canceled in rainy or stormy conditions. To learn more about pediatric vaccinations (ages 5-11), we invite you to visit the [facility] webpage. [email or web address]/page [email or web address]-Pbakf-Tuaaxomizep-Frequently -[email or web address]-Questions.html To learn more about the COVID-19 vaccine, we invite you to visit the CDC website for a list of frequently asked questions. https://www.cdc.gov/coronavirus/201 9-ncov/vaccines/faq.html [facility] Patient Portal Access Instructions: Stay connected with your healthcare team and access your personal medical information anytime with the [facility] Patient Portal. If you would like a full copy of your medical records please contact the [facility] Medical Records Department Sunday through Sunday between 8a.m. and 4:30p.m. Please follow the directions below to access the portal: 1.Access the email account you provided upon registration to the hospital.2.Look for an invitation email from [facility].3.Open the email and access the invitation link: Accept Invitation to [facility]4.Fill in the required fritz to create your account. Sign into www.Healthcare Bluebook with your username and password that you created in the above steps to stay up to date. You can then view a summary of results, a summary of your visits, and the ability to download your summaries to your computer or send the information securely to a physician. Remember that your healthcare information is confidential, so carefully consider who you will allow to register on the [facility] Patient Portal for access to your information. You can also access the [facility] Patient Portal on the [employer]. Simply click on Health Records under Health Data and then click on the [employer] logo. HOW TO SAFELY DISPOSE OF PRESCRIPTION MEDICATIONS Please use one of the following methods to safely dispose of your unused medications. 1.Use a drug disposal kit: the drug disposal pouch allows you to safely discard your old and unused drugs. Ask your nurse to give you one when you are discharged.2.Visit a local take-back location: Many local pharmacies and police departments have programs that collect old and unwanted prescription drugs. Call your local pharmacy or go to http://[employer]3A3Eo5z to find one close to you.3.Make use of household items: Use cat litter or old coffee grounds to dispose medications if other options are not available. Mix your drugs with these household products, seal them in an airtight container and throw it into the garbage. Call [facility]: [phone] to be sure your drugs can be disposed of in this way. Some medicines may require a different approach.4.Never flush your medications down the toilet. IF YOU HAVE BEEN PRESCRIBED AN OPIOIDS FOR PAIN If you have been prescribed an opioid (such as hydrocodone, oxycodone or morphine), it is critical to understand the possible side effects and risks of opioid pain medications. Even when taken as directed, opioids can have several side effects including: Tolerance, meaning you might need to take more of a medication for the same pain relief. Nausea, vomiting and/or constipation. Sleepiness, dizziness, dry mouth, confusion, depression or itching. Physical dependence, meaning you have withdrawal symptoms when a medication is stopped ? this can develop within a few days. KNOW YOUR RESPONSIBILITIES It is important to know exactly how much and how often to take the opioid pain medications you are prescribed. Never take opioids in higher amounts or more often than prescribed. Do not combine opioids with alcohol or other drugs that cause drowsiness, such as benzodiazepines, also known as benzos, including diazepam and alprazolam, muscle relaxants or sleep aids. Never sell or share prescription opioids. This is illegal. Store opioids in a secure place and out of reach of others (including children, family, friends and visitors). The last page(s) of this document has been signed and retained as a CHART COPY Signatures Patient Education Materials Viral Syndrome (Adult) Medication Leaflets My discharge plan and instructions have been reviewed and explained to me and I,AYDEN FADUMO understand my current condition and have read and understand these discharge instructions. I have received a written copy of the plan/instructions. If I have questions, I am aware that I should contact my doctor. Patient/[place] Clerk Signature: ____ Date/Time: Relationship to Patient: __ Witness Name/Signature: Date/Time: [facility] 04-10-2024 Note ORIGINAL EXAMINATION: CT OF THE ABDOMEN AND PELVIS WITH CONTRAST 04/10/2024 10:04 pm TECHNIQUE: CT of the abdomen and pelvis was performed with the administration of intravenous contrast. Multiplanar reformatted images are provided for review. Automated exposure control, iterative reconstruction, and/or weight based adjustment of the mA/kV was utilized to reduce the radiation dose to as low as reasonably achievable. COMPARISON: 03/14/2024 HISTORY: ORDERING SYSTEM PROVIDED HISTORY: Reason for Exam: Appendectomy 3 weeks ago, fever, pain. Hx of skin CA pain FINDINGS: Lower Chest: Visualized lower thorax demonstrates no consolidation or pleural effusion. Organs: The liver demonstrates no biliary duct dilatation or gross mass. The gallbladder demonstrates no calcified gallstones or gross wall thickening. The pancreas demonstrates no evidence of mass, ductal dilatation, or inflammatory process. Spleen is normal in size. Left adrenal gland is normal in morphology. There is a small right adrenal nodule again noted with density measurement 18 Hounsfield units which may be compatible with adrenal adenoma. However, if the patient has a history of cancer, a metastatic process may not be fully excluded. Follow-up adrenal washout CT or chemical shift MRI study would be useful for further evaluation. Again noted few bilateral subcentimeter renal calculi, largest measuring 6 mm at right kidney, without hydronephrosis. Ureters are normal in caliber bilaterally. GI/Bowel: Stomach and duodenal sweep demonstrate no acute abnormality. Small bowel and colon are normal in caliber. There is prior appendectomy noted. There is no pericecal gas or fluid collection. Cecum demonstrate no gross wall thickening or inflammatory change. Pelvis: Urinary bladder is within normal limits. Uterus and ovaries are grossly normal in morphology. Again noted is IUD with the stem tip again seen at the right uterine fundus. Peritoneum/Retroperitoneum: Aorta is normal in caliber. Bones/Soft Tissues: IMPRESSION: 1. No acute intra-abdominal or pelvic process. There is prior appendectomy noted. There is no pericecal gas or fluid collection. Cecum demonstrate no gross wall thickening or inflammatory change. 2. Small right adrenal nodule again noted with density measurement 18 Hounsfield units which may be compatible with adrenal adenoma. However, if the patient has a history of cancer, a metastatic process may not be fully excluded. Follow-up adrenal washout CT or chemical shift MRI study would be useful for further evaluation. 3. There is no evidence of obstructive uropathy. Again noted few bilateral subcentimeter renal calculi, largest measuring 6 mm at right kidney, without hydronephrosis. 4. Again noted is IUD with the stem tip again seen at the right uterine fundus. Interpreted by: Jaxson Moya Preliminary Report By: Jaxson Moya Electronically signed By Jaxson Moya Dictated Date: 04/10/2024 10:15:46 PM Prelim Date: 04/10/2024 10:36:06 PM Sign Date: 04/10/2024 10:36:06 PM Ordering Provider: [facility] 04-10-2024 Note ORIGINAL EXAMINATION: ONE XRAY VIEW OF THE CHEST04/10/2024 8:55 pm COMPARISON: Chest radiographs 03/24/2024 and 03/15/2024. HISTORY: ORDERING SYSTEM PROVIDED HISTORY: Reason for Exam: patient sent to the ER by urgent care for high heart rate, currently 98 in triage. also reports a fever for a couple of days fever, pain or tachypnea FINDINGS: Cardiomediastinal contours are within normal limits. No focal consolidation or pulmonary edema. No pneumothorax or pleural effusion. No acute osseous abnormalities. IMPRESSION: No acute radiographic process. Preliminary Report was Dictated by a Resident I have personally reviewed all of the images of this examination and agree with the resident findings and interpretation. Interpreted by: Andrew Lezama MD Preliminary Report By: Chrissy Hughes Electronically signed By Andrew Lezama MD Dictated Date: 04/10/2024 8:58:31 PM Prelim Date: 04/10/2024 9:00:07 PM Sign Date: 04/10/2024 9:57:53 PM Ordering Provider: ROB HARDWICK [facility] 04-10-2024 History of Present illness Narrative Patient presents today with multiple complaints stating that she has had a fever body aches and chills. She also notes an infected tooth. She did have an appendectomy about a month ago and was unable to make it to her follow-up appointment and now complains of right lower quadrant abdominal pain. On initial presentation her heart rate was erratic. I discussed with patient that being postsurgery and having abdominal pain I felt this was more complicated than it could be evaluated here at urgent care and recommended ER evaluation to which she was agreeable. Patient otherwise was in no acute distress. She denies any known history of irregular heartbeat. documented in this encounter [facility] 04-10-2024 Evaluation + Plan note Diagnostic Tests PendingLactic Acid 04/10/24Blood Culture (bacterial) 04/10/24Blood Culture (bacterial) 04/10/[address] [facility] 04-01-2024 History of Present illness Narrative Telemedicine Visit - Distance Health Virtual Visit Note Patient seen on [employer] Video Visit platform. Location of patient: [place] I have communicated my name and active licensure. The patient's identity and physical location were verified at the time of this visit. Either the patient or their legal artist representative has been informed of the risks and benefits of -- and alternatives to -- treatment through a remote evaluation and consents to proceed with the evaluation remotely. Fadumo Hensley is a 28 year old female presents complaining of back pain. Pt. With chronic back pain, usually sees [facility] in [place]. Needs Injections but cannot make the physical therapy appointments needed to qualify. Pt. Needs refill of Tizandine and consult to [facility] PAST MEDICAL HISTORY No date: Appendicitis 09/26/2019: ASCUS with positive high risk HPV cervical 11/29/2011: Asthma 11/27/2007: ATTN DEFICIT NONHYPERACT 09/07/2015: Bulging of intervertebral disc between L4 and L5 and L5 and S1 04/29/2010: Chest pain 09/23/2013: Chlamydia infection 05/26/2011: Depression 08/02/2012: Depression complicating , antepartum 11/08/2022: Diet controlled gestational diabetes mellitus (GDM) in second trimester Comment: 11/08/22- 2 levels out of 3 elevated. Supplies and referrals ordered. Sulma Bartholomew APRN.JULISSA No date: Generalized anxiety disorder No date: GERD (gastroesophageal reflux disease) 2018: Hepatitis C Comment: 2019 cured after medication course. No date: High grade squamous intraepithelial cervical dysplasia 2015: History of suicide attempt Comment: cutting wrist No date: Juvenile osteochondrosis of lower extremity, excluding foot Comment: 2004, resolved No date: Kidney stones 05/26/2011: Migraine headache No date: other Comment: Sever's Disease, 2006, resolved 01/27/2010: Other acne No date: Pain in joint, site unspecified Comment: AC joint tear, 200504/18/2012: Patient requested diagnostic testing Comment: 04/18/2012 Patient desires early screening in with sequential testing. 04/18/2012: Poor support system complicating Comment: 04/18/2012The father of the baby is aware that she is , but does not wish to be involved. Patient states her parents are very supportive. Patient is tearful for some of this visit today due to the father of the baby. She states he has put pressure on her in the past to have an , but she does not wish to do that. Patient was given a brochure on the care center and WIC. No date: depression No date: PTSD (post-traumatic stress disorder) 01/27/2010: Rosacea 04/22/2012: Rubella non-immune status No date: Skin cancer 04/22/2012: Teen Comment: July 04, 2012 Flu vaccine given 01/27/2010: Telangiectasia No date: Tobacco use disorder PAST SURGICAL HISTORY No date: APPENDECTOMY 05/11/2023: CERVIX UTERI CONIZA LP ELCTRO EXCI Comment: at [facility]-Dr. Millan 01/01/2010: PAST SURGICAL HISTORY OF Comment: Removal of 4 [place]re[place] Teeth No date: PAST SURGICAL HISTORY OF Comment: basal cell carcinoma removed from scalp FAMILY HISTORY Problem Relation Age of Onset Skin Cancer Mother Hypertension Mother Heart Failure Mother Liver Cancer Mother 66 Heart Father TRIPLE BYPASS SURGERY Hypertension Father Diabetes Father Diabetes Sister No Known Problems Sister No Known Problems Sister No Known Problems Brother No Known Problems Brother No Known Problems Brother Heart Maternal Grandmother from heart problems Heart Maternal Grandfather from heart problems Cancer Maternal Grandfather lung Hypertension Maternal Grandfather No Known Problems Daughter Social History Tobacco Use Smoking status: Former Current packs/day: 1.00 Average packs/day: 1 pack/day for 9.0 years (9.0 ttl pk-yrs) Types: Cigarettes Smokeless tobacco: Current Tobacco comments: Vapes Vaping Use Vaping status: current everyday user Substances: Nicotine Devices: Pre-filled or refillable cartridge Substance Use Topics Alcohol use: Not Currently Drug use: Not Currently Types: Heroin, Marijuana Comment: Patient states I have used multiple drugs in the past Current Outpatient Medications Medication Sig tiZANidine (ZANAFLEX) 4 mg tablet Take 1/2 - 1 tablet oral Three times a day , PRN as needed for 30 Days acetaminophen (TYLENOL 8 HOUR) 650 mg CR tablet Take 1 tablet by mouth every 8 hours as needed. keTORolac (TORADOL) 10 mg tablet Take 1 tablet by mouth every 6 hours as needed for pain for up to 5 days. citalopram (CELEXA) 20 mg tablet Take 1 tablet by mouth once daily. (Patient taking differently: Take 40 mg by mouth once daily.) lisdexamfetamine (VYVANSE) 40 mg capsule Take 1 capsule by mouth once daily for 30 days. cloNIDine HCl (CATAPRES) 0.1 mg tablet Take 1 tablet by mouth once daily as needed (Anxiety). metFORMIN ER (GLUCOPHAGE XR) 500 mg 24 hr tablet Take 1 tablet by mouth daily with breakfast. (Patient not taking: Reported on 02/09/2024) SUMAtriptan (IMITREX) 100 mg tablet Take 1 tablet (100 mg) by mouth as needed. TAKE ONE (1) TABLET EVERY 2 HOURS WITH A MAXIMUM DOSE OF 200 MG PER DAY NEEDED FOR HEADACHE levonorgestrel (LILETTA) 20.4 mcg/24 hrs (8 yrs) 52 mg IUD 1 Each by INTRAUTERINE route as directed. No current facility-administered medications for this visit. ALLERGIES Allergen Reactions Zyrtec [Cetirizine * Intolerance tremors Video Exam (Examination performed via video enabled technology) General appearance: Alert, oriented, pleasant, in NAD :Yes Ill appearing: No Lethargic appearing: No Respiratory distress: No ASSESSMENT/PLAN: 1. Chronic midline low back pain without sciatica - ICD9: 724.2, 338.29, ICD10: M54.50, G89.29 -Pt. With chronic low back pain related to degenerative disc disease. Started 10 years ago. -Will refill Tizanidine. Pt. Aware [facility] will not be able to prescribe subsequent refills -Consult to [facility] - TIZANIDINE 4 MG TABLET - [facility] Chronic low back pain - Red flags discussed for need for in person care - All questions answered Rylan Nicholas APRN.ANISHA documented in this encounter [facility] 03-27-2024 History of Present illness Narrative I have communicated my name and active licensure. The patient's identity and physical location were verified at the time of this visit. Either the patient or their legal artist representative has been informed of the risks and benefits of -- and alternatives to -- treatment through a remote evaluation and consents to proceed with the evaluation remotely. PATIENT TELEHEATH PROGRESS NOTE SERVICE DATE: 03/27/2024 SERVICE TIME: 11am Subjective HISTORY: Pt underwent an appi at [facility] 03/15. Exp chest pain and was kept in hospital for evaluation. Reports EKG was abnormal ( cannot see results) Pt reads report to me: Sinus rhythm. Short RI interval RBBB. St elevation. Probable early repolarization. States she had echo that was normal. Reports she was to follow with cardiology. Wants to see F cardiology. ( I cannot see these notes today) She is not having any further chest pain. Is concerned because both her parents of heart disease. Father at age 64 heart failure. Mother age 65 heart failure Also c/o dental pain. Is on augmentin and sees dentist tomorrow for root canal Objective PHYSICAL EXAM: LMP 11/15/2023 VIDEO EXAM: (if completed, performed via video enabled technology) GENERAL: alert and appropriate, in no distress, well-hydrated, well nourished, and happy, smiling, interactive DATA: Diagnostic tests reviewed for today's visit: Most recent labs and imaging results. Impression/Recommendations ASSESSMENT ASSESSMENT/PLAN: 1. Abnormal EKG - ICD9: 794.31, ICD10: R94.31 (primary diagnosis) + family hx of heart disease - CONSULT TO CARDIOLOGY 2. Pain, dental - ICD9: 525.9, ICD10: K08.89 toradol 10mg 1 every 6hrs as needed for pain for up to 5 days Phyllis Serra PA-C I was present throughout all critical parts of the telehealth visit. I spent 25 minutes. This is a virtual visit. It required patient-provider interaction for the medical decision making as documented above. SIGNATURE: Phyllis Serra PA-C PATIENT NAME: Fadumo Hensley DATE: March 27, 2024 TIME: 11:15 AM documented in this encounter [facility] 03-25-2024 Hospital Discharge instructions Patient Education 03/24/2024 22:03:50 Chest Pain, Uncertain Cause Uncertain Causes of Chest Pain Chest pain can happen for a number of reasons. Sometimes the cause can't be determined. If your condition does not seem serious, and your pain does not appear to be coming from your heart, your healthcare provider may recommend watching it closely. Sometimes the signs of a serious problem take more time to appear. Many problems not related to your heart can cause chest pain. These include: Musculoskeletal. Costochondritis is an inflammation of the tissues around the ribs that can occur from trauma or overuse injuries, or a strain of the muscles of the chest wall Respiratory. Pneumonia, collapsed lung (pneumothorax), or inflammation of the lining of the chest and lungs (pleurisy) Gastrointestinal. Esophageal reflux, heartburn, ulcers, or gallbladder disease Anxiety and panic disorders Nerve compression and inflammation Rare miscellaneous problems such as aortic aneurysm (a swelling of the large artery coming out of the heart) or pulmonary embolism (a blood clot in the lungs) Home care After your visit, follow these recommendations: Rest today and avoid strenuous activity. Take any prescribed medicine as directed. Be aware of any recurrent chest pain and notice any changes Follow-up care Follow up with your healthcare provider if you do not start to feel better within 24 hours, or as advised. Call 911 Call 911 if any of these occur: A change in the type of pain: if it feels different, becomes more severe, lasts longer, or begins to spread into your shoulder, arm, neck, jaw or back Shortness of breath or increased pain with breathing Weakness, dizziness, or fainting Rapid heart beat Crushing sensation in your chest When to seek medical advice Call your healthcare provider right away if any of the following occur: Cough with dark colored sputum (phlegm) or blood Fever of 100.4 F (38 C) or higher, or as directed by your healthcare provider Swelling, pain or redness in one leg 5610-3984 [employer]. [address] [place] [address]. All rights reserved. This information is not intended as a substitute for professional medical care. Always follow your healthcare professional's instructions. Follow Up Care 03/24/2024 20:12:10 With:Follow up with primary care provider Address:Unknown When:2-[address] [facility] 03-24-2024 Note Discharge Instructions Thank you for allowing [facility] to assist you with your healthcare needs. The following is important discharge information regarding your hospital visit. Diagnosis from Today's Visit Chest pain Radiology result abnormal What to Do Next Instructions from Your Care Team Finding on imaging that needs discussed with your doctor: right adrenal nodule measuring approximately 24 Hounsfield units. Further evaluation with non emergent adrenal protocol CT is recommended. No qualifying data available. Post Acute Orders No qualifying data available. You Need to Schedule the Following Appointments Follow Up with Follow up with primary care provider When:Within 2-4 days Allergies ZyrTEC Medications Please ask your primary doctor or pharmacist before taking any other medication not listed, including over the counter drugs, herbal medications, vitamins and or supplements as they may interact with your home medications. What How Much When Instructions Last Dose Unchanged citalopram (citalopram 40 mg oral tablet) 1 tab(s) Unchanged cloNIDine (cloNIDine 0.1 mg oral tablet) 1 tab(s) TAKE 1 TABLET BY MOUTH EVERY DAY NEEDED FOR ANXIETY Unchanged lisdexamfetamine (Vyvanse 40 mg oral capsule) 1 cap by mouth TAKE 1 CAPSULE BY MOUTH EVERY DAY IN THE MORNING Unchanged LORazepam (Ativan 0.5 mg oral tablet) 0.5 tab(s) by mouth Two (2) times a day as needed for anxiety severe Unchanged ondansetron (Zofran 4 mg oral tablet) 1 tab(s) by mouth Every 6 hours as needed for Nausea/Vomiting Unchanged oxyCODONE (oxyCODONE 5 mg oral tablet ( IMMEDIATE release )) 1 tab(s) by mouth Every 6 hours as needed for for pain Unchanged tiZANidine (tiZANidine 4 mg oral tablet) 1 tab(s) TAKE 1/ 2 TO 1 TABLET BY MOUTH 3 TIMES A DAY NEEDED Please take this list to your next doctor s visit. Bring all medications you take, including over the counter medications, herbals and other supplements with you to your doctor s visit. Patients and families are reminded to discard old lists and to update any records with all medication providers or retail pharmacies. Education Materials Uncertain Causes of Chest Pain Chest pain can happen for a number of reasons. Sometimes the cause can't be determined. If your condition does not seem serious, and your pain does not appear to be coming from your heart, your healthcare provider may recommend watching it closely. Sometimes the signs of a serious problem take more time to appear. Many problems not related to your heart can cause chest pain. These include: Musculoskeletal. Costochondritis is an inflammation of the tissues around the ribs that can occur from trauma or overuse injuries, or a strain of the muscles of the chest wall Respiratory. Pneumonia, collapsed lung (pneumothorax), or inflammation of the lining of the chest and lungs (pleurisy) Gastrointestinal. Esophageal reflux, heartburn, ulcers, or gallbladder disease Anxiety and panic disorders Nerve compression and inflammation Rare miscellaneous problems such as aortic aneurysm (a swelling of the large artery coming out of the heart) or pulmonary embolism (a blood clot in the lungs) Home care After your visit, follow these recommendations: Rest today and avoid strenuous activity. Take any prescribed medicine as directed. Be aware of any recurrent chest pain and notice any changes Follow-up care Follow up with your healthcare provider if you do not start to feel better within 24 hours, or as advised. Call 911 Call 911 if any of these occur: A change in the type of pain: if it feels different, becomes more severe, lasts longer, or begins to spread into your shoulder, arm, neck, jaw or back Shortness of breath or increased pain with breathing Weakness, dizziness, or fainting Rapid heart beat Crushing sensation in your chest When to seek medical advice Call your healthcare provider right away if any of the following occur: Cough with dark colored sputum (phlegm) or blood Fever of 100.4 F (38 C) or higher, or as directed by your healthcare provider Swelling, pain or redness in one leg [id number] [employer]. [address] [place] [address]. All rights reserved. This information is not intended as a substitute for professional medical care. Always follow your healthcare professional's instructions. Additional Information VACCINATE! IT SAVES LIVES! Members of the community who have not yet received the COVID-19 vaccine and would like to receive it can visit one of [facility] vaccine clinics. There are many vaccine clinic locations within the [facility]. For locations and available times, please visit www.gettheshot.coronavirus.[place].gov /. It is important to note that some COVID mobile vaccine clinics are held outdoors and may be canceled in rainy or stormy conditions. To learn more about pediatric vaccinations (ages 5-11), we invite you to visit the [facility] webpage. [email or web address] -[email or web address]-Questions.[email or web address] To learn more about the COVID-19 vaccine, we invite you to visit the CDC website for a list of frequently asked questions. https://www.cdc.gov/coronavirus/201 9-ncov/vaccines/faq.html [facility] Patient Portal Access Instructions: Stay connected with your healthcare team and access your personal medical information anytime with the [facility] Patient Portal. If you would like a full copy of your medical records please contact the [facility] Medical Records Department Sunday through Sunday between 8a.m. and 4:30p.m. Please follow the directions below to access the portal: 1.Access the email account you provided upon registration to the [facility].2.Look for an invitation email from [facility].3.Open the email and access the invitation link: Accept Invitation to [facility]4.Fill in the required fritz to create your account. Sign into [email or web address] with your username and password that you created in the above steps to stay up to date. You can then view a summary of results, a summary of your visits, and the ability to download your summaries to your computer or send the information securely to a physician. Remember that your healthcare information is confidential, so carefully consider who you will allow to register on the [facility] Patient Portal for access to your information. You can also access the [facility] [employer] Patient Portal on the [employer]. Simply click on Health Records under Health Data and then click on the [facility] logo. HOW TO SAFELY DISPOSE OF PRESCRIPTION MEDICATIONS Please use one of the following methods to safely dispose of your unused medications. 1.Use a drug disposal kit: the drug disposal pouch allows you to safely discard your old and unused drugs. Ask your nurse to give you one when you are discharged.2.Visit a local take-back location: Many local pharmacies and police departments have programs that collect old and unwanted prescription drugs. Call your local pharmacy or go to http://[employer]9N4Bi3z to find one close to you.3.Make use of household items: Use cat litter or old coffee grounds to dispose medications if other options are not available. Mix your drugs with these household products, seal them in an airtight container and throw it into the garbage. Call [facility]: [phone] to be sure your drugs can be disposed of in this way. Some medicines may require a different approach.4.Never flush your medications down the toilet. IF YOU HAVE BEEN PRESCRIBED AN OPIOIDS FOR PAIN If you have been prescribed an opioid (such as hydrocodone, oxycodone or morphine), it is critical to understand the possible side effects and risks of opioid pain medications. Even when taken as directed, opioids can have several side effects including: Tolerance, meaning you might need to take more of a medication for the same pain relief. Nausea, vomiting and/or constipation. Sleepiness, dizziness, dry mouth, confusion, depression or itching. Physical dependence, meaning you have withdrawal symptoms when a medication is stopped ? this can develop within a few days. KNOW YOUR RESPONSIBILITIES It is important to know exactly how much and how often to take the opioid pain medications you are prescribed. Never take opioids in higher amounts or more often than prescribed. Do not combine opioids with alcohol or other drugs that cause drowsiness, such as benzodiazepines, also known as benzos, including diazepam and alprazolam, muscle relaxants or sleep aids. Never sell or share prescription opioids. This is illegal. Store opioids in a secure place and out of reach of others (including children, family, friends and visitors). The last page(s) of this document has been signed and retained as a CHART COPY Signatures Patient Education Materials Chest Pain, Uncertain Cause Medication Leaflets My discharge plan and instructions have been reviewed and explained to me and IAYDEN JESSIE understand my current condition and have read and understand these discharge instructions. I have received a written copy of the plan/instructions. If I have questions, I am aware that I should contact my doctor. Patient/[place] Clerk Signature: ____ Date/Time: Relationship to Patient: __ Witness Name/Signature: Date/Time: [facility] 03-24-2024 Note ORIGINAL EXAMINATION: CTA OF THE CHEST 03/24/2024 9:40 pm TECHNIQUE: CTA of the chest was performed after the administration of intravenous contrast. Multiplanar reformatted images are provided for review. MIP images are provided for review. Automated exposure control, iterative reconstruction, and/or weight based adjustment of the mA/kV was utilized to reduce the radiation dose to as low as reasonably achievable. COMPARISON: None HISTORY: ORDERING SYSTEM PROVIDED HISTORY: Reason for Exam: chest pain; suspect PE FINDINGS: No acute osseous abnormality. No acute soft tissue abnormality. No acute abnormality in the visualized upper abdomen. 2.0 cm right adrenal nodule that measures approximately 24 Hounsfield units is present. The thyroid is unremarkable. No pathologically enlarged supraclavicular, axillary, mediastinal or hilar lymph nodes. The heart is normal size. No pericardial effusion. The thoracic aorta is normal caliber. The pulmonary arteries are adequately opacified. No pulmonary embolism. No pleural effusion or pneumothorax. The trachea and mainstem bronchi are patent. The lungs are clear. No suspicious pulmonary nodule. IMPRESSION: No pulmonary embolism. 2.0 cm right adrenal nodule measuring approximately 24 Hounsfield units. Further evaluation with non emergent adrenal protocol CT is recommended. Preliminary Report was Dictated by a Resident I have personally reviewed the images of this examination and agree with the resident's findings and interpretation. Jaxson Moya M.D. Interpreted by: Jaxson Moya Preliminary Report By: Johnnie Wilks Electronically signed By Jaxson Moya Dictated Date: 03/24/2024 9:51:17 PM Prelim Date: 03/24/2024 10:01:20 PM Sign Date: 03/24/2024 10:20:52 PM [facility] Note ORIGINAL EXAMINATION: ONE XRAY VIEW OF THE CHEST03/24/2024 9:39 pm COMPARISON: 02/24/2024 HISTORY: ORDERING SYSTEM PROVIDED HISTORY: Reason for Exam: SOB/cough/fever FINDINGS: Cardiomediastinal contours are within normal limits. No focal consolidation or pulmonary edema. No pleural effusion or visible pneumothorax. The bony thorax appears intact. IMPRESSION: No focal consolidation. I have personally reviewed the images of this examination and agree with the resident's findings and interpretation. Interpreted by: Escobar Moore Preliminary Report By: Johnnie Wilks Electronically signed By Escobar Moore Dictated Date: 03/24/2024 9:40:02 PM Prelim Date: 03/24/2024 9:42:34 PM Sign Date: 03/24/2024 10:13:46 PM Ordering Provider: VERO HEATH [facility] 03-24-2024 Note Sinus rhythm Borderline short RI interval Right bundle branch block ST elev, probable normal early repol pattern Electronic Signature: VERO HEATH MD 03/24/2024 20:32:[address] [facility] 03-18-2024 Telephone encounter Note Linked to appointment. Aliyah Khoury RN [facility] 03-18-2024 Miscellaneous Notes Linked to appointment. Aliyah Khoury RN done. thanks. Carmelita Millan MD Patient called the office. Appointment scheduled. Please file IUD removal order to attach to her visit. Thank you. Aliyah Khoury RN documented in this encounter [facility] 03-18-2024 Telephone encounter Note done. thanks. Carmelita Millan MD [facility] 03-18-2024 Telephone encounter Note Patient called the office. Appointment scheduled. Please file IUD removal order to attach to her visit. Thank you. Aliyah Khoury RN [facility] 03-17-2024 Telephone encounter Note Reason for Call: appendix removed over the weekend, procedure done laparoscopic; patient stated she is passing flatus; immediately started having chest pain in PACU, difficulty breathing still continuing with pain, has family history of CHF and diabetes, patient had gestational diabetes, per patient EKG was positive for a RBBB, per patient this is new Outcome: recommendations to call 911 now; patient verbalized understanding of recommendations Reason for Disposition [1] Chest pain lasts > 5 minutes AND [2] age > 30 AND [3] one or more cardiac risk factors (e.g., diabetes, high blood pressure, high cholesterol, smoker, or strong family history of heart disease) gestational diabetes; low good cholesterol; mom CHF and father from CHF and DM Additional Information Negative: SEVERE difficulty breathing (e.g., struggling for each breath, speaks in single words) Pain? yes If pain, scale of 1-10 and/or behavior (grimace, crying, etc.) 7/10; 1010 Location of pain? lorna chest, shoulder and neck on the right side Description of pain? tense; sharp stabbing pain, frozen with pain Duration of pain? constant with intermittent sharp pain Pain relief methods/effectiveness? laying down makes it worse; standing helps some Negative: Difficult to awaken or acting confused (e.g., disoriented, slurred speech) dizzy Protocols used: Chest Zxjg-DESRT-OG [facility] 03-17-2024 Miscellaneous Notes Reason for Call: appendix removed over the weekend, procedure done laparoscopic; patient stated she is passing flatus; immediately started having chest pain in PACU, difficulty breathing still continuing with pain, has family history of CHF and diabetes, patient had gestational diabetes, per patient EKG was positive for a RBBB, per patient this is new Outcome: recommendations to call 911 now; patient verbalized understanding of recommendations Reason for Disposition [1] Chest pain lasts > 5 minutes AND [2] age > 30 AND [3] one or more cardiac risk factors (e.g., diabetes, high blood pressure, high cholesterol, smoker, or strong family history of heart disease) gestational diabetes; low good cholesterol; mom CHF and father from CHF and DM Additional Information Negative: SEVERE difficulty breathing (e.g., struggling for each breath, speaks in single words) Pain? yes If pain, scale of 1-10 and/or behavior (grimace, crying, etc.) 710; 1010 Location of pain? lorna chest, shoulder and neck on the right side Description of pain? tense; sharp stabbing pain, frozen with pain Duration of pain? constant with intermittent sharp pain Pain relief methods/effectiveness? laying down makes it worse; standing helps some Negative: Difficult to awaken or acting confused (e.g., disoriented, slurred speech) dizzy Protocols used: Chest [id number]-[id number]-DY documented in this encounter [facility] 03-16-2024 Discharge summary Date of Service 03/16/2024 Discharge Diagnosis Appendicitis (K37 - ICD-10-CM) Post-op pain (G89.18 - ICD-10-CM) S/P laparoscopic appendectomy (Z90.49 - ICD-10-CM) Hospital Course This patient is a 28-year-old female with past medical history of kidney stones requiring lithotripsy who presented to [place] emergency room for complaint of abdominal pain found to have acute appendicitis after undergoing a CT scan of abdomen pelvis. Patient was transferred to [facility] for definitive care. She was taken to the operating room by Dr. Ellis where she underwent a laparoscopic appendectomy. Patient complained of chest pain postoperatively and was transferred to [facility] with a consult to cardiology after surgery. Patient was seen and evaluated, EKG showed a right bundle ashutosh block, and she underwent an echo that was negative. With an ejection fracture of greater than 60%. Troponin negative. Chest pain more likely related to pleurisy. She was instructed to take NSAIDs for this and use her incentive spirometry for cough and deep breathing. On 03/16/2024 patient met all discharge criteria from a surgical standpoint. The patient was postoperative pain was controlled, she was voiding postoperatively and tolerating her diet without difficulty. Discharge instructions were reviewed with the patient. She was understanding and agreement to plan. Patient have close follow-up with Dr. Ellis in 2 weeks. Allergies ZyrTEC Procedures Laparoscopic appendectomy Consults Consult to Physician - Ordered -- 03/15/24 13:34:00 EDT, WILLA DAWKINS MD, Routine, EKG changes postop Imaging Results and Diagnostics XR Chest 1 View Result Date: March 15, 2024 Verified By: ANDREW CORTES MD CLINICAL STATEMENT: IMPRESSION: No acute radiographic findings in the chest. Pneumoperitoneum. This can be a normal finding in the immediatepostoperative setting. Please correlate clinically with peritoneal signs ofacute abdomen for evidence of perforated bowel. Consider CT of the abdomenpelvis if there is clinical suspicion. Objective Vitals and Measurements T: 36.9 C (Oral) TMIN: 36.4 C (Oral) TMAX: 36.9 C (Oral) HR: 57 RR: 16 BP: 96/55 SpO2: 95% Weight Dosing Weight: 83.1 kg (03/14/24) Pending Labs and Studies none Code Status Code Status - Ordered -- 03/14/24 21:07:00 EDT, Full Code, Constant Order Admission Date 03/14/2024 Discharge Date 03/16/2024 Patient Instructions Operative activity/wound care recommendations No lifting or pushing objects greater than 10 to 15 pounds and no strenuous activity. Walking, using stairs, and riding in the car are acceptable forms of activity and are encouraged in postoperative period. Spirometer use and deep breathing/coughing exercises are also encouraged after discharge to prevent respiratory complications such as pneumonia and blood clots. No driving while taking narcotic pain medicine. You may shower. No tub bathing or soaking your incision, and no pools/hot tub until cleared by your surgeon. Wash your incision daily with mild soap and water and pat dry. Post operative medication recommendations/education: It is recommended that you alternate between 650mg and 1000 mg of Tylenol and 400 to 800 mg of Motrin (Ibuprofen or Advil) every 6 hours as needed to optimize pain control after surgery. A prescription for narcotic pain medication is temporally provided to you postoperatively and should only be used for breakthrough pain as narcotics increase your risk for constipation, dependency, overdose and respiratory depression. Constipation after surgery is very common for patients after discharge from the hospital. This is related to anesthesia and analgesia (pain medication.). Concern encouraged to take fhqn-ueu-lbzcvnn stool softeners (such as Colace) and over the counter laxatives (such as Miralax) as needed for constipation. Additional medications that can be taken for operative constipation including milk of magnesia and Metamucil Medications Unchanged citalopram (citalopram 40 mg oral tablet)1 tab(s). cloNIDine (cloNIDine 0.1 mg oral tablet)1 tab(s). TAKE 1 TABLET BY MOUTH EVERY DAY NEEDED FOR ANXIETY. lisdexamfetamine (Vyvanse 40 mg oral capsule)1 cap by mouth. TAKE 1 CAPSULE BY MOUTH EVERY DAY IN THE MORNING. LORazepam (Ativan 0.5 mg oral tablet)0.5 tab(s) by mouth two (2) times a day as needed anxiety severe. oxyCODONE (oxyCODONE 5 mg oral tablet ( IMMEDIATE release ))1 tab(s) by mouth every 6 hours as needed as needed for pain for 3 Days. Refills: 0. tiZANidine (tiZANidine 4 mg oral tablet)1 tab(s). TAKE 1/2 TO 1 TABLET BY MOUTH 3 TIMES A DAY NEEDED. Follow Up Follow Up with JUAN ELLIS MD, Surgery Where:[address] [facility] [address] [facility] [place] [address]- [phone] Additional Information: Please call the office on Sunday for follow-up appointment in 2 weeks. Follow Up Appointments No qualifying data available. Follow Up Labs/Studies Discharge Labs No Follow-up Labs Discharge Studies No Follow-up Studies Discharge Diet no changes Discharge Activity see above Condition on Discharge stable Readmission Risk/Palliative Score No qualifying data available. Discharge Disposition to home Information Provided To nurse and patient Time Spent 20mins I have reviewed the [place] Automated Rx Reporting System (OARRS) report for this patient for refill pattern and other prescriber involvement as part of the appropriate surveillance for the provision of acute and chronic controlled medications. The report was requested and reviewed on the date of this entry, and was considered in the prescribing process This document was dictated with voice recognition software and may contain grammatical errors Digitally Signed by DILLON COLE on 03/16/2024 10:30 AM [facility] 03-16-2024 Surgery Hospital Progress note Date of Service 03/16/2024 Chief Complaint Postoperative day #1 Postoperative pain Subjective On examination of patient she is seen resting supine in bed, in no acute distress. Patient reporting that she is still continuing to have chest discomfort. She denies any shortness of breath or dizziness. Patient reporting that she is having abdominal discomfort but the pain is different than what she was experiencing prior to surgery. Patient is tolerating her diet without difficulty she is voiding postoperatively. Objective Vitals and Measurements T: 36.9 C (Oral) TMIN: 36.4 C (Oral) TMAX: 36.9 C (Oral) HR: 57 RR: 16 BP: 96/55 SpO2: 95% Intake and Output 7AM Yesterday to 7AM Today Intake and Output (Last 24 hours) Intake Administration Information 2900.00 Oral Intake 240.00 Output Intra-Op Urine Catheter 150.00 Intra-Op EBL 10.00 Stool Count 0.00 Urine Count 2.00 Total Summary Total Intake 3140.00 Total Output 160.00 Fluid Balance 2980.00 Physical Exam General: Awake and alert and in no apparent distress. Able to answer questions and speak in full sentences. Supine in bed. Sitting upright. HEENT: Mucous membranes moist and pink. Sclerae anicteric. PERRLA. Heart: Regular rate and rhythm. S1-S2 are present. Lungs: Chest rise symmetrical. Respirations unlabored. Clear to auscultation bilaterally. Abdomen: Soft and nontender. Nondistended. No guarding or rigidity. Bowel sounds 4 quadrants. Laparoscopic sites are dry and intact with with bruising and ecchymosis around sites. Extremities: Freely moving. Skin: Normal color for ethnicity. No pallor or diaphoresis. No jaundice. Psychiatric: Calm and cooperative. Weight Dosing Weight: 83.1 kg (03/14/24) Medications Medications (15) Active Scheduled: (4) citalopram 40 mg tablet 40 mg 1 tab(s), Oral, qDay enoxaparin 40 mg/ 0.4mL syringe 40 mg 0.4 mL, Subcutaneous, q24h ketorolac 15 mg/mL vial 15 mg 1 mL, IV Push, q6h piperacillin-tazobactam PMX 3.375 gram(s) 50 mL, IV Piggyback, q8h Continuous: (0) PRN: (11) acetaminophen 325 mg Tablet 650 mg 2 tab(s), Oral, q4h clonidine 0.1 mg tablet 0.1 mg 1 tab(s), Oral, qDay dextrose 50% Solution Disp syringe 50 mL 12.5 gram(s) 25 mL, IV Push, AsDirected HYDROmorphone 0.5 mg/0.5 mL PF syringe 0.5 mg 0.5 mL, IV Push, q3h LORAZEPam 0.5 mg tablet 0.25 mg 0.5 tab(s), Oral, BID morphine 2 mg/mL 1 mL syringe 2 mg 1 mL, IV Push, q3h ondansetron 2 mg/ 1 mL 2 mL INJ 4 mg 2 mL, IV Push, q4h oxyCODONE 10 mg Tab (Immediate Release) 10 mg 1 tab(s), Oral, q4h oxycodone 5 mg tablet (immediate release) 5 mg 1 tab(s), Oral, q4h prochlorperazine 10 mg/2 mL vial 5 mg 1 mL, IV Push, q6h tiZANidine 4 mg tablet 4 mg 1 tab(s), Oral, TID Lab Results No 36 Hour Lab Data EKG EKG - Completed -- 03/15/24 11:31:00 EDT EKG - Completed -- 03/15/24 19:35:00 EDT Assessment/Plan 1. Appendicitis 2. S/P laparoscopic appendectomy This patient is a 28-year-old female who is postoperative day #1 from a laparoscopic appendectomy secondary to appendicitis. Patient complained of chest pain postoperatively and was transferred to [facility] with a consult to cardiology after surgery. Patient was seen and evaluated, EKG showed a right bundle ashutosh block, and she underwent an echo that was negative. With an ejection fracture of greater than 60%. Troponin negative. Chest pain more likely related to pleurisy. She was instructed to take NSAIDs for this and use her incentive spirometry for cough and deep breathing. On examination of the patient the patient's abdomen is soft, with mild tenderness to the laparoscopic sites. There is is bruising and ecchymosis to the laparoscopic sites. Plan: Postoperative day #1 -Patient is hemodynamically stable. Patient will be discharged to home. Discharge instructions were reviewed with the patient as well as her echo results. She was understanding to this. Patient will close follow-up with Dr. Ellis in 2 weeks. Discharge instructions were reviewed with the patient she was understanding and agreement to plan. Please see orders. Anticipated Date of Discharge 03/16/2024 Digitally Signed by DILLON COLE on 03/16/2024 10:26 AM [facility] 03-16-2024 Hospital Discharge instructions Patient Education 03/16/2024 10:37:01 Acute Pain, Adult Acute Pain, Adult Acute pain is a type of sudden pain that may last for just a few days or for as long as six months. It is often related to an illness, injury, or medical procedure. Acute pain may be mild, moderate, or severe. Pain can make it hard for you to do your normal, daily activities. It can cause anxiety and lead to other problems if it is left untreated. Treatment depends on the cause and severity of your pain. Acute pain usually goes away once your injury has healed or you are no longer ill. Follow these instructions at home: Medicines Take qejx-yum-jbpaeqn and prescription medicines only as told by your health care provider. Take the lowest dose of medicine for the shortest amount of time needed to relieve the pain. If you are taking prescription pain medicine: ?Do not stop taking the medicine suddenly. Talk to your health care provider about how and when to discontinue prescription medicine. ?Do not take more pills than told by your health care provider even if your pain is severe. ?Do not take other xddc-tno-typuqgf pain medicines in addition to prescription pain medicine unless told by your health care provider. ?Ask your health care provider if the medicine requires you to avoid driving or using heavy machinery. ?Ask your health care provider if the medicine can cause constipation. You may need to take these actions to prevent or treat constipation: ?Drink enough fluid to keep your urine pale yellow. ?Eat foods that are high in fiber, such as beans, whole grains, and fresh fruits and vegetables. ?Take eoqu-xrc-rscnfum or prescription medicines. ?Limit foods that are high in fat and processed sugars, such as fried or sweet foods. Managing pain, stiffness, and swelling If directed, put ice on the affected area. To do this: Put ice in a plastic bag. Place a towel between your skin and the bag. Leave the ice on for 20 minutes, 2 3 times a day. If directed, apply heat to the affected area as often as told by your health care provider. Use the heat source that your health care provider recommends, such as a moist heat pack or a heating pad. Place a towel between your skin and the heat source. Leave the heat on for 20 30 minutes. Remove the heat if your skin turns bright red. This is especially important if you are unable to feel pain, heat, or cold. You may have a greater risk of getting burned. Activity Rest as told by your health care provider. Return to your normal activities as told by your health care provider. Ask your health care provider what activities are safe for you. General instructions Check your pain level as told by your health care provider. Ask your health care provider if other strategies such as distraction, relaxation, or physical therapies can help your pain. Keep all follow-up visits as told by your health care provider. This is important. Contact a health care provider if: Your pain is not controlled by medicine. Your pain does not improve or gets worse. You have side effects from pain medicines, such as vomiting or confusion. Get help right away if you: Have severe pain. Have trouble breathing. Lose consciousness. Have chest pain or pressure that lasts for more than a few minutes, or if you have other symptoms along with chest pain, including if you: ?Have pain or discomfort in one or both arms, your back, neck, jaw, or stomach. ?Have shortness of breath. ?Break out in a cold sweat. ?Feel nauseous. ?Become light-headed. These symptoms may represent a serious problem that is an emergency. Do not wait to see if the symptoms will go away. Get medical help right away. Call your local emergency services (911 in the [place] Do not drive yourself to the hospital. Summary Acute pain may be mild, moderate, or severe. It usually goes away once your injury has healed or you are no longer ill. Take wgzf-rww-wzqgmdq and prescription medicines only as told by your health care provider. Ask your health care provider if the medicine prescribed to you can cause constipation. Contact a health care provider if your pain is not controlled by medicine. This information is not intended to replace advice given to you by your health care provider. Make sure you discuss any questions you have with your health care provider. Document Released: 07/23/2016 Document Revised: 11/24/2019 Document Reviewed: 11/24/2019 [employer] Patient Education 2020 [employer] 03/16/2024 10:37:00 Appendicitis, Adult, Iwlq-vh-Drds Appendicitis, Adult The appendix is a tube in the body that is shaped like a finger. It is attached to the large intestine. Appendicitis means that this tube is swollen (inflamed). If this is not treated, the tube can tear (rupture). This can lead to a life-threatening infection. This condition can also cause pus to build up in the appendix (abscess). What are the causes? This condition may be caused by something that blocks the appendix. These include: A ball of poop (stool). Lymph glands that are bigger than normal. Sometimes the cause is not known. What increases the risk? You are more likely to develop this condition if you are between 10 and 30 years of age. What are the signs or symptoms? Symptoms of this condition include: Pain around the belly button (navel). ?The pain moves toward the lower right belly (abdomen). ?The pain can get worse with time. ?The pain can get worse if you cough. ?The pain can get worse if you move suddenly. Tenderness in the lower right belly. Feeling sick to your stomach (nauseous). Throwing up (vomiting). Not feeling hungry (loss of appetite). A fever. Having trouble pooping (constipation). Watery poop (diarrhea). Not feeling well. How is this treated? Most often, this condition is treated by taking out the appendix (appendectomy). There are two ways to do this: Open surgery. For this method, the appendix is taken out through a large cut (incision). The cut is made in the lower right belly. This surgery may be used if: ?You have scars from another surgery. ?You have a bleeding condition. ?You are and will be having your baby soon. ?You have a condition that makes it hard to do the other type of surgery. Laparoscopic surgery. For this method, the appendix is taken out through small cuts. Often, this surgery: ?Causes less pain. ?Causes fewer problems. ?Is easier to heal from. If your appendix tears and pus forms: A drain may be put into the sore. The drain will be used to get rid of the pus. You may get an antibiotic medicine through an IV line. Your appendix may or may not need to be taken out. Follow these instructions at home: If you had surgery, follow instructions from your doctor on how to care for yourself at home and how to take care of your cut from surgery. Medicines Take khna-mlr-pjyimil and prescription medicines only as told by your doctor. If you were prescribed an antibiotic medicine, take it as told by your doctor. Do not stop taking the antibiotic even if you start to feel better. Eating and drinking Follow instructions from your doctor about what you cannot eat or drink. You may go back to your diet slowly if: You no longer feel sick to your stomach. You have stopped throwing up. General instructions Do not use any products that contain nicotine or tobacco, such as cigarettes, e-cigarettes, and chewing tobacco. If you need help quitting, ask your doctor. Do not drive or use heavy machinery while taking prescription pain medicine. Ask your doctor if the medicine you are taking can cause trouble pooping. You may need to take steps to prevent or treat trouble pooping: ?Drink enough fluid to keep your pee (urine) pale yellow. ?Take szkw-nnn-ljmhdmc or prescription medicines. ?Eat foods that are high in fiber. These include beans, whole grains, and fresh fruits and vegetables. ?Limit foods that are high in fat and sugar. These include fried or sweet foods. Keep all follow-up visits as told by your doctor. This is important. Contact a doctor if: There is pus, blood, or a lot of fluid coming from your cut or cuts from surgery. You are sick to your stomach or you throw up. Get help right away if: You have pain in your belly, and the pain is getting worse. You have a fever. You have chills. You are very tired. You have muscle pain. You are short of breath. Summary Appendicitis is swelling of the appendix. The appendix is a tube that is shaped like a finger. It is joined to the large intestine. This condition may be caused by something that blocks the appendix. This can lead to an infection. This condition is usually treated by taking out the appendix. This information is not intended to replace advice given to you by your health care provider. Make sure you discuss any questions you have with your health care provider. Document Released: 09/30/2012 Document Revised: 12/25/2018 Document Reviewed: 12/25/2018 [employer] Patient Education 2020 [employer]. Follow Up Care 03/14/2024 19:25:05 With:JUAN ELLIS MD, Surgery Address: [address] [place] [phone] When: Unknown Comments:Please call the office on Sunday for follow-up appointment in 2 weeks. [facility] 03-16-2024 Note Discharge Instructions Thank you for allowing [facility] to assist you with your healthcare needs. The following is important discharge information regarding your hospital visit. Your Care Team PHYSICIAN, NONE Your Diagnosis Appendicitis Post-op pain S/P laparoscopic appendectomy What to do next Instructions From Your Doctor Operative activity/wound care recommendations No lifting or pushing objects greater than 10 to 15 pounds and no strenuous activity. Walking, using stairs, and riding in the car are acceptable forms of activity and are encouraged in postoperative period. Spirometer use and deep breathing/coughing exercises are also encouraged after discharge to prevent respiratory complications such as pneumonia and blood clots. No driving while taking narcotic pain medicine. You may shower. No tub bathing or soaking your incision, and no pools/hot tub until cleared by your surgeon. Wash your incision daily with mild soap and water and pat dry. Post operative medication recommendations/education: It is recommended that you alternate between 650mg and 1000 mg of Tylenol and 400 to 800 mg of Motrin (Ibuprofen or Advil) every 6 hours as needed to optimize pain control after surgery. A prescription for narcotic pain medication is temporally provided to you postoperatively and should only be used for breakthrough pain as narcotics increase your risk for constipation, dependency, overdose and respiratory depression. Constipation after surgery is very common for patients after discharge from the hospital. This is related to anesthesia and analgesia (pain medication.). Concern encouraged to take dsud-vbc-tazxdbt stool softeners (such as Colace) and over the counter laxatives (such as Miralax) as needed for constipation. Additional medications that can be taken for operative constipation including milk of magnesia and Metamucil Follow Up Appointments Follow Up with JUAN ELLIS MD, Surgery Where:[address] [place] [phone] Additional Information: Please call the office on Sunday for follow-up appointment in 2 weeks. The Following Activity and Diet Have Been Ordered for You Discharge Activity - Ordered -- May Shower, You may shower, no soaking in a hot tub, whirlpool, bathtub, or moon until follow-up. No strenuous activity, no lifting anything greater than 10 to 15 pounds for at least 4 weeks. Going up and down steps is susceptible, 03/16/24 10:31:00... Discharge Driving Restrictions - Ordered -- * Other, specify in special instructions, No driving if taking narcotics, 03/16/24 10:31:00 EDT Discharge Return to Work, School, or Sports - Ordered -- within 2 weeks, Return to Work - WITH Restrictions, May return to: work, 0-10 lbs, JUAN ELLIS MD, 03/16/24 10:31:00 EDT No qualifying data available. The Following Equipment Has Been Ordered for You Discharge Home Equipment Discharge Wound Care - Ordered -- Cleanse laparoscopic sites with soap and water and pat dry. Should your Steri-Strips still be on after 7 days please remove, 03/16/24 10:31:00 EDT The Following Treatments Have Been Ordered for You Discharge Labs No qualifying data available. Discharge Radiology No qualifying data available. Other Therapies No qualifying data available. Post Acute Orders No qualifying data available. Someone Will Contact You Regarding These Home Health Referrals No home referrals have been ordered for you. No one will call you. Allergies ZyrTEC Medications Please ask your primary doctor or pharmacist before taking any other medication not listed, including over the counter drugs, herbal medications, vitamins and or supplements as they may interact with your home medications. What How Much When Why Instructions Last Dose Unchanged citalopram (citalopram 40 mg oral tablet) 1 tab(s) Unchanged cloNIDine (cloNIDine 0.1 mg oral tablet) 1 tab(s) TAKE 1 TABLET BY MOUTH EVERY DAY NEEDED FOR ANXIETY Unchanged lisdexamfetamine (Vyvanse 40 mg oral capsule) 1 cap by mouth TAKE 1 CAPSULE BY MOUTH EVERY DAY IN THE MORNING Unchanged LORazepam (Ativan 0.5 mg oral tablet) 0.5 tab(s) by mouth Two (2) times a day as needed for anxiety severe Unchanged oxyCODONE (oxyCODONE 5 mg oral tablet ( IMMEDIATE release )) 1 tab(s) by mouth Every 6 hours as needed for as needed for pain Post-op pain S/P laparoscopic appendectomy Duration: 3 Days Pickup at [facility]/pharmacy #[id number] Unchanged tiZANidine (tiZANidine 4 mg oral tablet) 1 tab(s) TAKE 1/ 2 TO 1 TABLET BY MOUTH 3 TIMES A DAY NEEDED Pharmacy Information [facility]/pharmacy #[id number]: [address], [place] [phone] Please take this list to your next doctor s visit. Bring all medications you take, including over the counter medications, herbals and other supplements with you to your doctor s visit. Patients and families are reminded to discard old lists and to update any records with all medication providers or retail pharmacies. Medication Leaflets oxycodone (ox i KOE done) Oxaydo, OxyCONTIN, Roxicodone, RoxyBond, Xtampza ER What is the most important information I should know about oxycodone? MISUSE OF OPIOID MEDICINE CAN CAUSE ADDICTION, OVERDOSE, OR . Fatal side effects may occur if you also drink alcohol or use other drugs that cause drowsiness or slow breathing. Using opioid medicine during may cause life-threatening withdrawal symptoms in the . What is oxycodone? Oxycodone is an opioid pain medication used to treat moderate to severe pain. Oxycodone is usually given after other treatments did not work or were not tolerated. Extended-release oxycodone is for vxanvc-pvg-rumlx treatment of severe and chronic pain that requires longer treatment. This medicine is not for use on an as-needed basis. Oxycodone may also be used for purposes not listed in this medication guide. What should I discuss with my healthcare provider before taking oxycodone? You should not use oxycodone if you are allergic to it, or if you have severe asthma, breathing problems or a stomach or bowel obstruction (including paralytic ileus). Tell your doctor if you have ever had: other breathing problems, sleep apnea (breathing that stops during sleep); a head injury, brain tumor, high pressure inside the skull, or seizures, drug or alcohol addiction, or mental illness; if you have used an MAO inhibitor in the past 14 days, such as isocarboxazid, linezolid, methylene blue injection, phenelzine, or tranylcypromine; urination problems, problems with your gallbladder, pancreas, thyroid, or adrenal gland; or liver or kidney disease. Most forms of oxycodone are not approved for use in people under 18 years old. The extended-release tablets should not be given to a child younger than 11 years old. Tell your doctor if you also use stimulant medicine, opioid medicine, herbal products, or medicine for depression, mental illness, Parkinson's disease, migraine headaches, serious infections, or prevention of nausea and vomiting. An interaction with oxycodone could cause a serious condition called serotonin syndrome. May harm an unborn baby. Tell your doctor if you are or plan to become . If you use oxycodone during , your baby could be born with life-threatening withdrawal symptoms, and may need medical treatment for several weeks. Do not breastfeed. Oxycodone in breast milk can cause life-threatening side effects in a nursing baby. Long-term oxycodone may affect fertility in men or women. could be harder to achieve while either parent is using this medicine. How should I take oxycodone? Follow the directions on your prescription label and read all medication guides or instruction sheets. Never use oxycodone in larger amounts, or for longer than prescribed. Tell your doctor if you feel an increased urge to use more of this medicine. Never share opioid medicine with another person, especially someone with a history of drug addiction. MISUSE CAN CAUSE ADDICTION, OVERDOSE, OR . Keep the medicine where others cannot get to it. Selling or giving away this medicine is against the law. Never crush a pill or use the liquid to inhale the mixture or inject it into your vein. This could result in . Your dose needs may change if you switch to a different brand, strength, or form of this medicine. Avoid medication errors by using exactly as directed on the label, or as prescribed by your doctor. Stop taking all other aehrdt-iul-krsce opioid pain medicines when you start taking extended-release oxycodone. Swallow the extended-release forms whole to avoid exposure to a potentially fatal overdose. Do not crush, chew, break, open, or dissolve. Take the extended-release capsules with food. Read and carefully follow the instructions for use on how to prepare and take this medicine if you cannot swallow extended release capsules whole or you use a feeding tube. Ask your doctor or pharmacist if you don't understand these instructions. Measure liquid medicine with the supplied measuring device (not a kitchen spoon). You may be given other medications to help prevent or treat certain side effects. You may have withdrawal symptoms if you stop using oxycodone suddenly. Ask your doctor before stopping the medicine. Store at room temperature away from moisture and heat. Keep your medicine in a place where no one can use it improperly. Do not keep leftover medicine. Just one dose can cause in someone using it accidentally or improperly. Ask your pharmacist about a drug take-back program, or flush the unused medicine down the toilet. What happens if I miss a dose? Since oxycodone is used for pain, you are not likely to miss a dose. Skip any missed dose if it is almost time for your next dose. Do not use two doses at one time. What happens if I overdose? Seek emergency medical attention or call the Poison Help line at . An overdose can be fatal, especially in a child or person using opioid medicine without a prescription. Your doctor may recommend you get naloxone (a medicine to reverse an opioid overdose) and keep it with you at all times. A person caring for you can give the naloxone if you stop breathing or don't wake up. Your caregiver must still get emergency medical help and may need to perform CPR (cardiopulmonary resuscitation) on you while waiting for help to arrive. Anyone can buy naloxone from a pharmacy or local health department. Make sure any person caring for you knows where you keep naloxone and how to use it. What should I avoid while taking oxycodone? Do not drink alcohol or any products that contain alcohol. Dangerous side effects or could occur. Avoid driving or hazardous activity until you know how this medicine will affect you. Dizziness or drowsiness can causing falls, accidents, or severe injuries. Also avoid getting up too fast from a sitting or lying position, or you may feel dizzy. What are the possible side effects of oxycodone? Get emergency medical help if you have signs of an allergic reaction: hives, difficult breathing, swelling of your face, lips, tongue, or throat. Opioid medicine can slow or stop your breathing, and may occur, especially if you drink alcohol or use other drugs that cause drowsiness or slow breathing. A person caring for you should give naloxone and/or seek emergency medical attention if you have slow breathing with long pauses, blue colored lips, or if you are hard to wake up. Call your doctor at once if you have: slow heart rate, weak pulse, fainting, slow breathing (breathing may stop); chest pain, fast or pounding heartbeats; a seizure, extreme drowsiness; or decreased adrenal gland hormones--nausea, vomiting, stomach pain, loss of appetite, feeling tired or light-headed, muscle or joint pain, skin discoloration, craving salty foods. Serious breathing problems may be more likely in older adults and in those who are debilitated or have wasting syndrome or chronic breathing disorders. Seek medical attention right away if you have symptoms of serotonin syndrome, such as: agitation, hallucinations, fever, sweating, shivering, fast heart rate, muscle stiffness, twitching, loss of coordination, nausea, vomiting, or diarrhea. Common side effects may include: sleep problems (insomnia), itching; drowsiness, headache, dizziness, tiredness; or constipation, stomach pain, nausea, vomiting. This is not a complete list of side effects and others may occur. Call your doctor for medical advice about side effects. You may report side effects to FDA at 4-756-ADU-6146. What other drugs will affect oxycodone? You may have a fatal oxycodone overdose if you start or stop using certain medicines. Tell your doctor about all your medications. Tell your doctor about all your medications especially if you use medicine to treat HIV, antibiotic, antifungal medication, or seizure medication. Many other drugs can be dangerous when used with opioid medicine. Tell your doctor if you also use: medicine for allergies, asthma, blood pressure, motion sickness, irritable bowel, or overactive bladder; other opioid medicines, a benzodiazepine sedative like Valium, Klonopin, or Xanax; sleep medicine, muscle relaxers, or other drugs that make you drowsy; or drugs that affect serotonin, such as antidepressants, stimulants, or medicine for migraines or Parkinson's disease. This list is not complete and many other drugs may affect oxycodone. This includes prescription and lval-soo-tblbgpk medicines, vitamins, and herbal products. Not all possible drug interactions are listed here. Where can I get more information? Your doctor or pharmacist can provide more information about oxycodone. Remember, keep this and all other medicines out of the reach of children, never share your medicines with others, and use this medication only for the indication prescribed. Every effort has been made to ensure that the information provided by [employer]. ('[employer]') is accurate, up-to-date, and complete, but no guarantee is made to that effect. Drug information contained herein may be time sensitive. [employer] information has been compiled for use by healthcare practitioners and consumers in the [place] and therefore [employer] does not warrant that uses outside of the [place] are appropriate, unless specifically indicated otherwise. [employer] drug information does not endorse drugs, diagnose patients or recommend therapy. [employer] drug information is an informational resource designed to assist licensed healthcare practitioners in caring for their patients and/or to serve consumers viewing this service as a supplement to, and not a substitute for, the expertise, skill, knowledge and judgment of healthcare practitioners. The absence of a warning for a given drug or drug combination in no way should be construed to indicate that the drug or drug combination is safe, effective or appropriate for any given patient. [employer] does not assume any responsibility for any aspect of healthcare administered with the aid of information [employer] provides. The information contained herein is not intended to cover all possible uses, directions, precautions, warnings, drug interactions, allergic reactions, or adverse effects. If you have questions about the drugs you are taking, check with your doctor, nurse or pharmacist. Copyright 7737-2560 [employer]. Version: 17.. Revision Date: 08/14/2023. Education Materials Acute Pain, Adult Acute pain is a type of sudden pain that may last for just a few days or for as long as six months. It is often related to an illness, injury, or medical procedure. Acute pain may be mild, moderate, or severe. Pain can make it hard for you to do your normal, daily activities. It can cause anxiety and lead to other problems if it is left untreated. Treatment depends on the cause and severity of your pain. Acute pain usually goes away once your injury has healed or you are no longer ill. Follow these instructions at home: Medicines Take jhgs-egi-tdfraia and prescription medicines only as told by your health care provider. Take the lowest dose of medicine for the shortest amount of time needed to relieve the pain. If you are taking prescription pain medicine: ? Do not stop taking the medicine suddenly. Talk to your health care provider about how and when to discontinue prescription medicine. ? Do not take more pills than told by your health care provider even if your pain is severe. ? Do not take other ljhh-pbj-rpwzetb pain medicines in addition to prescription pain medicine unless told by your health care provider. ? Ask your health care provider if the medicine requires you to avoid driving or using heavy machinery. ? Ask your health care provider if the medicine can cause constipation. You may need to take these actions to prevent or treat constipation: ? Drink enough fluid to keep your urine pale yellow. ? Eat foods that are high in fiber, such as beans, whole grains, and fresh fruits and vegetables. ? Take lbce-osl-pqfiydr or prescription medicines. ? Limit foods that are high in fat and processed sugars, such as fried or sweet foods. Managing pain, stiffness, and swelling If directed, put ice on the affected area. To do this: Put ice in a plastic bag. Place a towel between your skin and the bag. Leave the ice on for 20 minutes, 2 3 times a day. If directed, apply heat to the affected area as often as told by your health care provider. Use the heat source that your health care provider recommends, such as a moist heat pack or a heating pad. Place a towel between your skin and the heat source. Leave the heat on for 20 30 minutes. Remove the heat if your skin turns bright red. This is especially important if you are unable to feel pain, heat, or cold. You may have a greater risk of getting burned. Activity Rest as told by your health care provider. Return to your normal activities as told by your health care provider. Ask your health care provider what activities are safe for you. General instructions Check your pain level as told by your health care provider. Ask your health care provider if other strategies such as distraction, relaxation, or physical therapies can help your pain. Keep all follow-up visits as told by your health care provider. This is important. Contact a health care provider if: Your pain is not controlled by medicine. Your pain does not improve or gets worse. You have side effects from pain medicines, such as vomiting or confusion. Get help right away if you: Have severe pain. Have trouble breathing. Lose consciousness. Have chest pain or pressure that lasts for more than a few minutes, or if you have other symptoms along with chest pain, including if you: ? Have pain or discomfort in one or both arms, your back, neck, jaw, or stomach. ? Have shortness of breath. ? Break out in a cold sweat. ? Feel nauseous. ? Become light-headed. These symptoms may represent a serious problem that is an emergency. Do not wait to see if the symptoms will go away. Get medical help right away. Call your local emergency services (911 in the [place] Do not drive yourself to the hospital. Summary Acute pain may be mild, moderate, or severe. It usually goes away once your injury has healed or you are no longer ill. Take ufje-cvw-jrvxlin and prescription medicines only as told by your health care provider. Ask your health care provider if the medicine prescribed to you can cause constipation. Contact a health care provider if your pain is not controlled by medicine. This information is not intended to replace advice given to you by your health care provider. Make sure you discuss any questions you have with your health care provider. Document Released: 07/23/2016 Document Revised: 11/24/2019 Document Reviewed: 11/24/2019 [employer] Patient Education 2020 [employer] Appendicitis, Adult The appendix is a tube in the body that is shaped like a finger. It is attached to the large intestine. Appendicitis means that this tube is swollen (inflamed). If this is not treated, the tube can tear (rupture). This can lead to a life-threatening infection. This condition can also cause pus to build up in the appendix (abscess). What are the causes? This condition may be caused by something that blocks the appendix. These include: A ball of poop (stool). Lymph glands that are bigger than normal. Sometimes the cause is not known. What increases the risk? You are more likely to develop this condition if you are between 10 and 30 years of age. What are the signs or symptoms? Symptoms of this condition include: Pain around the belly button (navel). ? The pain moves toward the lower right belly (abdomen). ? The pain can get worse with time. ? The pain can get worse if you cough. ? The pain can get worse if you move suddenly. Tenderness in the lower right belly. Feeling sick to your stomach (nauseous). Throwing up (vomiting). Not feeling hungry (loss of appetite). A fever. Having trouble pooping (constipation). Watery poop (diarrhea). Not feeling well. How is this treated? Most often, this condition is treated by taking out the appendix (appendectomy). There are two ways to do this: Open surgery. For this method, the appendix is taken out through a large cut (incision). The cut is made in the lower right belly. This surgery may be used if: ? You have scars from another surgery. ? You have a bleeding condition. ? You are and will be having your baby soon. ? You have a condition that makes it hard to do the other type of surgery. Laparoscopic surgery. For this method, the appendix is taken out through small cuts. Often, this surgery: ? Causes less pain. ? Causes fewer problems. ? Is easier to heal from. If your appendix tears and pus forms: A drain may be put into the sore. The drain will be used to get rid of the pus. You may get an antibiotic medicine through an IV line. Your appendix may or may not need to be taken out. Follow these instructions at home: If you had surgery, follow instructions from your doctor on how to care for yourself at home and how to take care of your cut from surgery. Medicines Take quzz-scu-nlwnfuv and prescription medicines only as told by your doctor. If you were prescribed an antibiotic medicine, take it as told by your doctor. Do not stop taking the antibiotic even if you start to feel better. Eating and drinking Follow instructions from your doctor about what you cannot eat or drink. You may go back to your diet slowly if: You no longer feel sick to your stomach. You have stopped throwing up. General instructions Do not use any products that contain nicotine or tobacco, such as cigarettes, e-cigarettes, and chewing tobacco. If you need help quitting, ask your doctor. Do not drive or use heavy machinery while taking prescription pain medicine. Ask your doctor if the medicine you are taking can cause trouble pooping. You may need to take steps to prevent or treat trouble pooping: ? Drink enough fluid to keep your pee (urine) pale yellow. ? Take tdbc-pyq-hhlozna or prescription medicines. ? Eat foods that are high in fiber. These include beans, whole grains, and fresh fruits and vegetables. ? Limit foods that are high in fat and sugar. These include fried or sweet foods. Keep all follow-up visits as told by your doctor. This is important. Contact a doctor if: There is pus, blood, or a lot of fluid coming from your cut or cuts from surgery. You are sick to your stomach or you throw up. Get help right away if: You have pain in your belly, and the pain is getting worse. You have a fever. You have chills. You are very tired. You have muscle pain. You are short of breath. Summary Appendicitis is swelling of the appendix. The appendix is a tube that is shaped like a finger. It is joined to the large intestine. This condition may be caused by something that blocks the appendix. This can lead to an infection. This condition is usually treated by taking out the appendix. This information is not intended to replace advice given to you by your health care provider. Make sure you discuss any questions you have with your health care provider. Document Released: 09/30/2012 Document Revised: 12/25/2018 Document Reviewed: 12/25/2018 [employer] Patient Education 2020 [employer] Additional Information VACCINATE! IT SAVES LIVES! Members of the community who have not yet received the COVID-19 vaccine and would like to receive it can visit one of [facility] vaccine clinics. There are many vaccine clinic locations within the [facility]. For locations and available times, please visit https://gettheshot.coronavirus.[place] .gov/. It is important to note that some COVID mobile vaccine clinics are held outdoors and may be canceled in rainy or stormy conditions. To learn more about pediatric vaccinations (ages 5-11), we invite you to visit the [facility] webpage. [email or web address]-[email or web address] -[email or web address] To learn more about the COVID-19 vaccine, we invite you to visit the CDC website for a list of frequently asked questions.https://www.cdc.gov/coron avirus/2019-ncov/vaccines/faq.html [facility] Patient Portal Access Instructions: Stay connected with your healthcare team and access your personal medical information anytime with the [facility] Patient Portal. Please follow the directions below to create your [facility] account: 1.Access the email account you provided upon registration to the hospital/physician office.2.Look for an invitation email from [facility].3.Open the email and access the invitation link: Accept Invitation to [facility].4.Fill in the required fritz to create your account. To access your account, visit [email or web address]. Click the blue button labeled Access Patient Portal and then log in with the username and password that you created in the steps above. You will be able to view your test results, lab results, a summary of your visits, upcoming appointments and more. There is also a convenient messaging option where you can send secure messages to your provider. In addition, you will have the ability to download any documents or summaries to your computer and/or send the information securely to a physician. Remember that your healthcare information is confidential, so carefully consider who you will allow to register on the [facility] Patient Portal for access to your information. You can also access the [facility] Patient Portal on the [facility] berna. Simply click on Patient Portal and then log into your account. If you would like to receive a full copy of your medical records, please contact the [facility] Medical Records Department by calling [phone], Sunday through Sunday between 8 a.m. and 4:30 p.m. HOW TO SAFELY DISPOSE OF PRESCRIPTION MEDICATIONS Please use one of the following methods to safely dispose of your unused medications. 1.Use a drug disposal kit: the drug disposal pouch allows you to safely discard your old and unused drugs. Ask your nurse to give you one when you are discharged.2.Visit a local take-back location: Many local pharmacies and police departments have programs that collect old and unwanted prescription drugs. Call your local pharmacy or go to http://[employer]5M1Jm0f to find one close to you.3.Make use of household items: Use cat litter or old coffee grounds to dispose medications if other options are not available. Mix your drugs with these household products, seal them in an airtight container and throw it into the garbage. Call [facility]: [phone] to be sure your drugs can be disposed of in this way. Some medicines may require a different approach.4.Never flush your medications down the toilet. IF YOU HAVE BEEN PRESCRIBED AN OPIOID FOR PAIN If you have been prescribed an opioid (such as hydrocodone, oxycodone or morphine), it is critical to understand the possible side effects and risks of opioid pain medications. Even when taken as directed, opioids can have several side effects including: Tolerance, meaning you might need to take more of a medication for the same pain relief. Nausea, vomiting and/or constipation. Sleepiness, dizziness, dry mouth, confusion, depression or itching. Physical dependence, meaning you have withdrawal symptoms when a medication is stopped, can develop within a few days. KNOW YOUR RESPONSIBILITIES It is important to know exactly how much and how often to take the opioid pain medications you are prescribed. Never take opioids in higher amounts or more often than prescribed. Do not combine opioids with alcohol or other drugs that cause drowsiness, such as benzodiazepines, also known as benzos, including diazepam and alprazolam, muscle relaxants or sleep aids. Never sell or share prescription opioids. This is illegal. Store opioids in a secure place and out of reach of others (including children, family, friends and visitors). The last page of this document has been signed and retained as a CHART COPY. Signatures Patient Education Materials Acute Pain, Adult Appendicitis, Adult, Zbma-ff-Yitw Medication Leaflets oxycodone My discharge plan and instructions have been reviewed and explained to me and I,FADUMO HENSLEY understand my current condition and have read and understand these discharge instructions. I have received a written copy of the plan/instructions. If I have questions, I am aware that I should contact my doctor. Patient/[place] Clerk Signature: ____ Date/Time: Relationship to Patient: __ Witness Name/Signature: Date/Time: [facility] 03-16-2024 Discharge summary Date of Service 03/16/2024 Discharge Diagnosis Appendicitis (K37 - ICD-10-CM) Post-op pain (G89.18 - ICD-10-CM) S/P laparoscopic appendectomy (Z90.49 - ICD-10-CM) Hospital Course This patient is a 28-year-old female with past medical history of kidney stones requiring lithotripsy who presented to [place] emergency room for complaint of abdominal pain found to have acute appendicitis after undergoing a CT scan of abdomen pelvis. Patient was transferred to [facility] for definitive care. She was taken to the operating room by Dr. Ellis where she underwent a laparoscopic appendectomy. Patient complained of chest pain postoperatively and was transferred to [facility] with a consult to cardiology after surgery. Patient was seen and evaluated, EKG showed a right bundle ashutosh block, and she underwent an echo that was negative. With an ejection fracture of greater than 60%. Troponin negative. Chest pain more likely related to pleurisy. She was instructed to take NSAIDs for this and use her incentive spirometry for cough and deep breathing. On 03/16/2024 patient met all discharge criteria from a surgical standpoint. The patient was postoperative pain was controlled, she was voiding postoperatively and tolerating her diet without difficulty. Discharge instructions were reviewed with the patient. She was understanding and agreement to plan. Patient have close follow-up with Dr. Ellis in 2 weeks. Allergies ZyrTE Procedures Laparoscopic appendectomy Consults Consult to Physician - Ordered -- 03/15/24 13:34:00 EDT, WILLA DAWKINS MD, Routine, EKG changes postop Imaging Results and Diagnostics XR Chest 1 View Result Date: March 15, 2024 Verified By: ANDREW CORTES MD CLINICAL STATEMENT: IMPRESSION: No acute radiographic findings in the chest. Pneumoperitoneum. This can be a normal finding in the immediatepostoperative setting. Please correlate clinically with peritoneal signs ofacute abdomen for evidence of perforated bowel. Consider CT of the abdomenpelvis if there is clinical suspicion. Objective Vitals and Measurements T: 36.9 C (Oral) TMIN: 36.4 C (Oral) TMAX: 36.9 C (Oral) HR: 57 RR: 16 BP: 96/55 SpO2: 95% Weight Dosing Weight: 83.1 kg (03/14/24) Pending Labs and Studies none Code Status Code Status - Ordered -- 03/14/24 21:07:00 EDT, Full Code, Constant Order Admission Date 03/14/2024 Discharge Date 03/16/2024 Patient Instructions Operative activity/wound care recommendations No lifting or pushing objects greater than 10 to 15 pounds and no strenuous activity. Walking, using stairs, and riding in the car are acceptable forms of activity and are encouraged in postoperative period. Spirometer use and deep breathing/coughing exercises are also encouraged after discharge to prevent respiratory complications such as pneumonia and blood clots. No driving while taking narcotic pain medicine. You may shower. No tub bathing or soaking your incision, and no pools/hot tub until cleared by your surgeon. Wash your incision daily with mild soap and water and pat dry. Post operative medication recommendations/education: It is recommended that you alternate between 650mg and 1000 mg of Tylenol and 400 to 800 mg of Motrin (Ibuprofen or Advil) every 6 hours as needed to optimize pain control after surgery. A prescription for narcotic pain medication is temporally provided to you postoperatively and should only be used for breakthrough pain as narcotics increase your risk for constipation, dependency, overdose and respiratory depression. Constipation after surgery is very common for patients after discharge from the hospital. This is related to anesthesia and analgesia (pain medication.). Concern encouraged to take frdd-mdd-psxexvc stool softeners (such as Colace) and over the counter laxatives (such as Miralax) as needed for constipation. Additional medications that can be taken for operative constipation including milk of magnesia and Metamucil Medications Unchanged citalopram (citalopram 40 mg oral tablet)1 tab(s). cloNIDine (cloNIDine 0.1 mg oral tablet)1 tab(s). TAKE 1 TABLET BY MOUTH EVERY DAY NEEDED FOR ANXIETY. lisdexamfetamine (Vyvanse 40 mg oral capsule)1 cap by mouth. TAKE 1 CAPSULE BY MOUTH EVERY DAY IN THE MORNING. LORazepam (Ativan 0.5 mg oral tablet)0.5 tab(s) by mouth two (2) times a day as needed anxiety severe. oxyCODONE (oxyCODONE 5 mg oral tablet ( IMMEDIATE release ))1 tab(s) by mouth every 6 hours as needed as needed for pain for 3 Days. Refills: 0. tiZANidine (tiZANidine 4 mg oral tablet)1 tab(s). TAKE 1/2 TO 1 TABLET BY MOUTH 3 TIMES A DAY NEEDED. Follow Up Follow Up with JUAN ELLIS MD, Surgery Where:[address] [facility] [place] [address]- [phone] Additional Information: Please call the office on Sunday for follow-up appointment in 2 weeks. Follow Up Appointments No qualifying data available. Follow Up Labs/Studies Discharge Labs No Follow-up Labs Discharge Studies No Follow-up Studies Discharge Diet no changes Discharge Activity see above Condition on Discharge stable Readmission Risk/Palliative Score No qualifying data available. Discharge Disposition to home Information Provided To nurse and patient Time Spent 20mins I have reviewed the [place] Automated Rx Reporting System (OARRS) report for this patient for refill pattern and other prescriber involvement as part of the appropriate surveillance for the provision of acute and chronic controlled medications. The report was requested and reviewed on the date of this entry, and was considered in the prescribing process This document was dictated with voice recognition software and may contain grammatical errors Digitally Signed by DILLON COLE on 03/16/2024 10:30 AM [facility] 03-16-2024 Surgery Hospital Progress note Date of Service 03/16/2024 Chief Complaint Postoperative day #1 Postoperative pain Subjective On examination of patient she is seen resting supine in bed, in no acute distress. Patient reporting that she is still continuing to have chest discomfort. She denies any shortness of breath or dizziness. Patient reporting that she is having abdominal discomfort but the pain is different than what she was experiencing prior to surgery. Patient is tolerating her diet without difficulty she is voiding postoperatively. Objective Vitals and Measurements T: 36.9 C (Oral) TMIN: 36.4 C (Oral) TMAX: 36.9 C (Oral) HR: 57 RR: 16 BP: 96/55 SpO2: 95% Intake and Output 7AM Yesterday to 7AM Today Intake and Output (Last 24 hours) Intake Administration Information 2900.00 Oral Intake 240.00 Output Intra-Op Urine Catheter 150.00 Intra-Op EBL 10.00 Stool Count 0.00 Urine Count 2.00 Total Summary Total Intake 3140.00 Total Output 160.00 Fluid Balance 2980.00 Physical Exam General: Awake and alert and in no apparent distress. Able to answer questions and speak in full sentences. Supine in bed. Sitting upright. HEENT: Mucous membranes moist and pink. Sclerae anicteric. PERRLA. Heart: Regular rate and rhythm. S1-S2 are present. Lungs: Chest rise symmetrical. Respirations unlabored. Clear to auscultation bilaterally. Abdomen: Soft and nontender. Nondistended. No guarding or rigidity. Bowel sounds 4 quadrants. Laparoscopic sites are dry and intact with with bruising and ecchymosis around sites. Extremities: Freely moving. Skin: Normal color for ethnicity. No pallor or diaphoresis. No jaundice. Psychiatric: Calm and cooperative. Weight Dosing Weight: 83.1 kg (03/14/24) Medications Medications (15) Active Scheduled: (4) citalopram 40 mg tablet 40 mg 1 tab(s), Oral, qDay enoxaparin 40 mg/ 0.4mL syringe 40 mg 0.4 mL, Subcutaneous, q24h ketorolac 15 mg/mL vial 15 mg 1 mL, IV Push, q6h piperacillin-tazobactam PMX 3.375 gram(s) 50 mL, IV Piggyback, q8h Continuous: (0) PRN: (11) acetaminophen 325 mg Tablet 650 mg 2 tab(s), Oral, q4h clonidine 0.1 mg tablet 0.1 mg 1 tab(s), Oral, qDay dextrose 50% Solution Disp syringe 50 mL 12.5 gram(s) 25 mL, IV Push, AsDirected HYDROmorphone 0.5 mg/0.5 mL PF syringe 0.5 mg 0.5 mL, IV Push, q3h LORAZEPam 0.5 mg tablet 0.25 mg 0.5 tab(s), Oral, BID morphine 2 mg/mL 1 mL syringe 2 mg 1 mL, IV Push, q3h ondansetron 2 mg/ 1 mL 2 mL INJ 4 mg 2 mL, IV Push, q4h oxyCODONE 10 mg Tab (Immediate Release) 10 mg 1 tab(s), Oral, q4h oxycodone 5 mg tablet (immediate release) 5 mg 1 tab(s), Oral, q4h prochlorperazine 10 mg/2 mL vial 5 mg 1 mL, IV Push, q6h tiZANidine 4 mg tablet 4 mg 1 tab(s), Oral, TID Lab Results No 36 Hour Lab Data EKG EKG - Completed -- 03/15/24 11:31:00 EDT EKG - Completed -- 03/15/24 19:35:00 EDT Assessment/Plan 1. Appendicitis 2. S/P laparoscopic appendectomy This patient is a 28-year-old female who is postoperative day #1 from a laparoscopic appendectomy secondary to appendicitis. Patient complained of chest pain postoperatively and was transferred to [facility] with a consult to cardiology after surgery. Patient was seen and evaluated, EKG showed a right bundle ashutosh block, and she underwent an echo that was negative. With an ejection fracture of greater than 60%. Troponin negative. Chest pain more likely related to pleurisy. She was instructed to take NSAIDs for this and use her incentive spirometry for cough and deep breathing. On examination of the patient the patient's abdomen is soft, with mild tenderness to the laparoscopic sites. There is is bruising and ecchymosis to the laparoscopic sites. Plan: Postoperative day #1 -Patient is hemodynamically stable. Patient will be discharged to home. Discharge instructions were reviewed with the patient as well as her echo results. She was understanding to this. Patient will close follow-up with Dr. Ellis in 2 weeks. Discharge instructions were reviewed with the patient she was understanding and agreement to plan. Please see orders. Anticipated Date of Discharge 03/16/2024 Digitally Signed by DILLON COLE on 03/16/2024 10:26 AM [facility] 03-16-2024 Note Exam Date Time Procedure Performing Provider Status 03/16/24 7:31 AM Echocardiogram, Adult - CV Auth (Verified) [facility] 08-24-2024 NoteSINUS RHYTHM RIGHT BUNDLE BRANCH BLOCK Electronic Signature: BRIAN DIEHL MD 03/16/2024 08:09:07[facility] 08-24-2024 Cardiology Consult note Date of Service 03/15 Reason for Consultation Chest pain Referring Physician Dr. Ellis History of Present Illness This is a 28-year-old female who came in for abdominal pain and was found to have acute appendicitis. She went laparoscopic appendectomy earlier today. Postoperatively she was having severe chest pain. Initially left-sided now right-sided. Worse with inspiration and some positions. She is feeling better now. Still has some pain but states its on the different side of her chest now. Review of Systems All other ROS was negative unless mentioned in HPI Physical Exam Vitals and Measurements T: 36.4 C (Oral) TMIN: 36.4 C (Oral) TMAX: 37.1 C (Oral) HR: 57 RR: 20 BP: 118/64 SpO2: 97% HT: 170.2 cm WT: 83.1 kg BMI: 28.69 Weight Dosing Weight: 83.1 kg (03/14/24) Gen: Appears comfortable, not in distress. CVS: RRR, no rubs/gallops RESP: CTAB Lab Results No 36 Hour Lab Data Assessment/Plan Appendicitis Post-op pain S/P laparoscopic appendectomy Orders: indomethacin(indomethacin 50 mg oral capsule), 50 mg= 1 cap(s), Oral, Once C-Reactive Protein(CRP), 03/15/24 16:38:00 EDT, URGENT (collect within 2 hrs), Blood, Once, Stop date 03/15/24 16:38:00 EDT Sedimentation Rate Automated(ESR), 03/15/24 16:38:00 EDT, URGENT (collect within 2 hrs), Blood, Once, Stop date 03/15/24 16:38:00 EDT 1) Chest pain -Patient had acute onset of chest pain postoperatively. Initially left-sided now right-sided. Worsewith inspiration. Very pleuritic in nature, consistent most likely with pleurisy. Pericarditis lesslikely. She has received some medications which have helped. Will try dose of NSAIDs. Out of an abundance of precaution, we will check a troponin as well. EKG does show a RBBB, no previous for compari son. Would benefit from an echo, although she does not need to stay in the hospital for the echocardiogram. Problem List/Past Medical History Ongoing Procedure/Surgical History No qualifying data available. Medications Inpatient citalopram, 40 mg= 1 tab(s), Oral, qDay cloNIDine, 0.1 mg= 1 tab(s), Oral, qDay, PRN Dextrose 50% IV Push, 12.5 gram(s)= 25 mL, IV Push, AsDirected, PRN Dilaudid, 0.5 mg= 0.5 mL, IV Push, q3h, PRN indomethacin 50 mg oral capsule, 50 mg= 1 cap(s), Oral, Once Lovenox, 40 mg= 0.4 mL, Subcutaneous, q24h LR 1,000 mL, 1000 mL, Intravenous morphine, 2 mg= 1 mL, IV Push, q3h, PRN oxyCODONE 10 mg oral tablet, 10 mg= 1 tab(s), Oral, q4h, PRN oxyCODONE 5 mg oral tablet ( IMMEDIATE release ), 5 mg= 1 tab(s), Oral, q4h, PRN prochlorperazine, 5 mg= 1 mL, IV Push, q6h, PRN tiZANidine, 4 mg= 1 tab(s), Oral, TID, PRN Tylenol, 650 mg= 2 tab(s), Oral, q4h, PRN Zofran, 4 mg= 2 mL, IV Push, q4h, PRN Zosyn, 3.375 gram(s)= 50 mL, IV Piggyback, q8h Home Ativan 0.5 mg oral tablet, 0.25 mg= 0.5 tab(s), Oral, BID, PRN citalopram 40 mg oral tablet, 40 mg= 1 tab(s) cloNIDine 0.1 mg oral tablet, 0.1 mg= 1 tab(s) oxyCODONE 5 mg oral tablet ( IMMEDIATE release ), 5 mg= 1 tab(s), Oral, q6hr, PRN tiZANidine 4 mg oral tablet, 4 mg= 1 tab(s) Vyvanse 40 mg oral capsule, 40 mg= 1 cap(s), Oral, Not taking Allergies ZyrTEC Immunizations No qualifying data available. Digitally Signed by BRIAN DIEHL MD on 03/15/2024 04:47 PM [id number] An[facility]hesiology Consult note Patient: FADUMO HENSLEY Age: 28 years Sex: Female : 1995 Associated Diagnoses: None Author: MICHELE JOSEPH DO Postoperative Information Post Operative Info: Post op day: Post Anesthesia Care Unit. Patient location: PACU. Assessment Postanesthesia assessment Vitals. Mental status: at preoperative baseline. Respiratory function: respirations are non-labored, Stable. Respiratory support: none. CV function: Stable. Cardiovascular support: none. Pain: Satisfactory. Nausea status: Satisfactory. Postoperative hydration status: within normal limits. Notes: Patient is sufficiently recovered from anesthesia to participate in the evaluation. No follow-up care needed. No complications post-anesthesia.. Digitally Signed by MICHELE JOSEPH DO on 03/15/2024 02:15 PM [id number] Evaluation + Plan noteExtracted from: Title:History and Physical Author:SONAL COLE AJ FONDANT COOKER-QUANTITATIVE ANALYST MARKETING Date:03/15/24 1. Appendicitis This patient is a 28-year-old female with a past medical history of kidney stones requiring lithotripsy who presented to [facility] emergency room with complaints of periumbilical abdominal pain found to have uncomplicated acute appendicitis who was transferred to [facility] for definitive care. Vital signs, laboratory data and radiology reports and results have been reviewed. Dr. Ellis to review CT scan. 1. Acute appendicitis. Given the patient's abnormal radiographic findings and examination the patient will be taken to the OR by Dr. Ellis for laparoscopic appendectomy. Risk versus benefits of the surgery were discussed with patient postoperative infection, bleeding, risk for DVT/PE, and intraoperative risk for damage to surrounding structures. The patient voiced understanding and was in agreement with plan. -Patient remain n.p.o. at this time -Continue with antiemetics and analgesics as needed Please see Dr. Ellis's addendum to follow. This document was dictated with voice recognition software and may contain grammatical errors Addendum by JUAN ELLIS MD on March 15, 2024 10:01:03 EDT Agree with above. 28-year-old female with past medical history significant for kidney stones who presented to [place] emergency room with right lower quadrant pain that started yesterday. Movement makes the pain worse. Patient's never had pain like this before. I personally reviewed the patient CT scan which shows an inflamed appendix. WBC is 15.4. General: No acute distress, and oriented Abdomen: Nondistended, soft, right lower quadrant tender with rebound or guarding. 28-year-old female the past medical history of kidney stones who presents with acute pin sites. Will admit Plan for laparoscopic appendectomy. NPO. IV fluids Antibiotics Likely home after surgery. [facility] 08-24-2024 Anesthesiology Consult note 28 y/o female who is POD0 s/p appendectomy. Upon awaking and arriving in PACU patient complaining of 10/10 anterior chest pain Right > Left with radiation into back. Patient states she has never experienced pain like this and was often times in tears. She describes pain as severe tightness that does not change with palpation. Vitals IN EMR Chest s1 and s2 present no murmurs noted Lungs grossly clear with faint rhonic/wheezes Neuro Moderate Distress, CNII-XII grossly intact A/P Atypical post operative chest pain - Stat CXR in EMR grossly normal w/o evidence of enlargement of the medianum, 12 Lead EKG Right bundle branch noted unknown whether this is acute or chronic issues,Duoneb ordered, pt given 1.5mg of Dilaudid in divided doses and Ofirmev to treat pain. Patient morecomfortable however still appreciates some chest pain which has presented now on the left side, urgent cardiology consult, pt hemodynamically stable BP equivocal bilateral extremity blood pressures, Dispo: Recommend admission to Telemetry floor pt to be admitted by primary service, cardiology consult Digitally Signed by MICHELE JOSEPH DO on 03/15/2024 01:07 PM [id number] Note ORIGINAL EXAMINATION: ONE XRAY VIEW OF THE CHEST03/15/2024 11:53 am CHEST ONE VIEW AP/PA COMPARISON: 03/14/2024 HISTORY: ORDERING SYSTEM PROVIDED HISTORY: Reason for Exam: chest pain post procedure History of appendectomy FINDINGS: The cardiomediastinal contours are normal. There is no focal consolidation, pleural effusion, or pneumothorax. No acute osseous abnormality. There is no pneumo peritoneum. IMPRESSION: No acute radiographic findings in the chest. Pneumoperitoneum. This can be a normal finding in the immediate postoperative setting. Please correlate clinically with peritoneal signs of acute abdomen for evidence of perforated bowel. Consider CT of the abdomen pelvis if there is clinical suspicion. Interpreted by: Andrew Cortes MD Preliminary Report By: Andrew Cortes MD Electronically signed By Andrew Cortes MD Dictated Date: 03/15/2024 12:01:22 PM Prelim Date: 03/15/2024 12:09:01 PM Sign Date: 03/15/2024 12:09:01 PM Ordering Provider: [facility]AS[facility] [id number] NoteSinus rhythm Right bundle branch block Electronic Signature: BRIAN DIEHL MD 03/15/2024 16:45:33[facility] 08-24-2024 Anesthesiology Consult note Patient: FADUMO HENSLEY Age: 28 years Sex: Female : 1995 Associated Diagnoses: None Author: MICHELE JOSEPH DO Preoperative Information Time of last food or liquid consumption: 03/15/2024 00:00:00 Anesthesia history Patient's history: negative. Family's history: negative. History of Present Illness Please refer to most recent H and P / daily progress note / consultation note for further details Currently nauseated denies emsis today hx of tobacco Otherwise patient denies any major bleeding/blood clotting disorder, neurological disorders Health Status Allergies: Allergic Reactions (Selected) Severity Not Documented ZyrTEC- No reactions were documented., Allergies (1) ActiveSeverityReaction ZyrTECNone Documented Current medications: (Selected) Inpatient Medications Ordered Dextrose 50% IV Push: 12.5 gram(s), 25 mL, IV Push, AsDirected, PRN: Hypoglycemia Dilaudid: 0.5 mg, 0.5 mL, IV Push, q3h, PRN: Pain, scale 7-10 LR 1,000 mL: 125 mL/hr, Intravenous Lovenox: 40 mg, 0.4 mL, Subcutaneous, q24h Tylenol: 650 mg, 2 tab(s), Oral, q4h, PRN: Pain, scale 1-3 Zofran: 4 mg, 2 mL, IV Push, q4h, PRN: Nausea/Vomiting Zosyn: 3.375 gram(s), 50 mL, 12.5 mL/hr, IV Piggyback, q8h cefOXitin: 2 gram(s), 50 mL, 100 mL/hr, IV Piggyback, PREOP pharm citalopram: 40 mg, 1 tab(s), Oral, qDay cloNIDine: 0.1 mg, 1 tab(s), Oral, qDay, PRN: Anxiety morphine: 2 mg, 1 mL, IV Push, q3h, PRN: Pain, scale 4-6 oxyCODONE 10 mg oral tablet: 10 mg, 1 tab(s), Oral, q4h, PRN: Pain, scale 7-10 oxyCODONE 5 mg oral tablet ( IMMEDIATE release ): 5 mg, 1 tab(s), Oral, q4h, PRN: Pain, scale 4-6 prochlorperazine: 5 mg, 1 mL, IV Push, q6h, PRN: Nausea/Vomiting tiZANidine: 4 mg, 1 tab(s), Oral, TID, PRN: Muscle spasm Prescriptions Prescribed oxyCODONE 5 mg oral tablet ( IMMEDIATE release ): 5 mg, 1 tab(s), Oral, q6hr, for 3 day(s), PRN: asneeded for pain, 12 tab(s), 0 Refill(s) Documented Medications Documented Vyvanse 40 mg oral capsule: 40 mg, 1 cap(s), Oral, TAKE 1 CAPSULE BY MOUTH EVERY DAY IN THE MORNING citalopram 40 mg oral tablet: 40 mg, 1 tab(s) cloNIDine 0.1 mg oral tablet: 0.1 mg, 1 tab(s), TAKE 1 TABLET BY MOUTH EVERY DAY NEEDED FOR ANXIETY tiZANidine 4 mg oral tablet: 4 mg, 1 tab(s), TAKE 1/2 TO 1 TABLET BY MOUTH 3 TIMES A DAY NEEDED, Medications (15) Active Scheduled: (4) ceFOXitin 2 gram(s) 50 mL, IV Piggyback, PREOP pharm citalopram 40 mg tablet 40 mg 1 tab(s), Oral, qDay enoxaparin 40 mg/ 0.4mL syringe 40 mg 0.4 mL, Subcutaneous, q24h piperacillin-tazobactam PMX 3.375 gram(s) 50 mL, IV Piggyback, q8h Continuous: (1) Lactated Ringers 1,000 mL 1,000 mL, Intravenous, 125 mL/hr PRN: (10) acetaminophen 325 mg Tablet 650 mg 2 tab(s), Oral, q4h clonidine 0.1 mg tablet 0.1 mg 1 tab(s), Oral, qDay dextrose 50% Solution Disp syringe 50 mL 12.5 gram(s) 25 mL, IV Push, AsDirected HYDROmorphone 0.5 mg/0.5 mL PF syringe 0.5 mg 0.5 mL, IV Push, q3h morphine 2 mg/mL 1 mL syringe 2 mg 1 mL, IV Push, q3h ondansetron 2 mg/ 1 mL 2 mL INJ 4 mg 2 mL, IV Push, q4h oxyCODONE 10 mg Tab (Immediate Release) 10 mg 1 tab(s), Oral, q4h oxycodone 5 mg tablet (immediate release) 5 mg 1 tab(s), Oral, q4h prochlorperazine 10 mg/2 mL vial 5 mg 1 mL, IV Push, q6h tiZANidine 4 mg tablet 4 mg 1 tab(s), Oral, TID Problem list: Medical / SNOMED CT [id number] / Confirmed, Active Problems (1) Histories Past Medical History: No active or resolved past medical history items have been selected or recorded. Family History: No family history items have been selected or recorded. Procedure history: No active procedure history items have been selected or recorded. Social History: Social & Psychosocial Habits No Data Available Physical Examination Vital Signs 03/15/2024 8:48 EDT Reason For Taking VItal Signs Routine 03/15/2024 7:58 EDT Temperature Oral 37.1 DegC Peripheral Pulse Rate 82 bpm Respiratory Rate 16 br/min Systolic Blood Pressure Non-Invasive 103 mmHg Diastolic Blood Pressure Non-Invasive 64 mmHg 03/15/2024 0:07 EDT Temperature Oral 36.7 DegC Peripheral Pulse Rate 85 bpm Respiratory Rate 18 br/min Systolic Blood Pressure Non-Invasive 107 mmHg Diastolic Blood Pressure Non-Invasive 64 mmHg Blood Pressure Method Automatic Blood Pressure Location Right arm Blood Pressure Cuff Size Medium 03/14/2024 20:47 EDT Temperature Oral 36.5 DegC Peripheral Pulse Rate 62 bpm Respiratory Rate 18 br/min Systolic Blood Pressure Non-Invasive 107 mmHg Diastolic Blood Pressure Non-Invasive 69 mmHg 03/14/2024 19:33 EDT Peripheral Pulse Rate 74 bpm Respiratory Rate 18 br/min Systolic Blood Pressure Non-Invasive 115 mmHg Diastolic Blood Pressure Non-Invasive 78 mmHg Reason For Taking VItal Signs 5 min post antibiotic start time 03/14/2024 17:17 EDT Temperature Oral 36.7 DegC Peripheral Pulse Rate 75 bpm Respiratory Rate 18 br/min Systolic Blood Pressure Non-Invasive 186 mmHg HI Diastolic Blood Pressure Non-Invasive 94 mmHg HI Vital Signs (last 24 hrs) Last Charted Temp Oral37.1 DegC (MAR 15 07:58) MSC692 mmHg (MAR 15 07:58) DBP64 mmHg (MAR 15 07:58) BMI28.69 (MAR 15 02:06) Measurements from flowsheet : Measurements 03/15/2024 2:06 EDT Body Mass Index 28.69 kg/m2 03/14/2024 20:49 EDT Height 170.2 cm Height in inches 67 inch(es) Admission Weight 83.1 kg Weight Lbs 182.8 lb Leonard Body Weight 61.62 kg BSA Admission 1.95 Body Mass Index 28.69 kg/m2 03/14/2024 17:17 EDT Height 170.2 cm Admission Weight 81.8 kg Leonard Body Weight 61.62 kg Pain assessment: Pain Assessment 03/15/2024 8:48 EDT Primary Pain Location Abdomen Abdominal Pain Location RLQ, RUQ, Umbilical Primary Pain Intensity 9 Primary Pain Quality Aching Primary Pain Pharma Intervention Medication Primary Pain Nonverbal Response Nods Yes Pain Scale Type 0-10 Pain scale 03/15/2024 5:57 EDT Pain Scale Assessment PAINAD Primary Pain Location Abdomen Primary Pain Intensity 2 03/15/2024 4:24 EDT Primary Pain Location Abdomen Primary Pain Intensity 9 Primary Pain Pharma Intervention Medication Pain Scale Type 0-10 Pain scale 03/15/2024 2:59 EDT Pain Scale Assessment PAINAD Primary Pain Location Abdomen Primary Pain Intensity 1 03/15/2024 1:20 EDT Primary Pain Location Abdomen Primary Pain Intensity 8 Primary Pain Pharma Intervention Medication Primary Pain Nonverbal Response Nods Yes Pain Scale Type 0-10 Pain scale 03/15/2024 0:54 EDT Pain Scale Assessment PAINAD Primary Pain Location Abdomen Primary Pain Intensity 5 03/14/2024 22:29 EDT Primary Pain Location Abdomen Primary Pain Intensity 9 Primary Pain Pharma Intervention Medication Primary Pain Nonverbal Response Nods Yes Pain Scale Type 0-10 Pain scale 03/14/2024 22:20 EDT Pain Scale Assessment 0-10 Pain scale Primary Pain Location Abdomen Primary Pain Intensity 9 03/14/2024 21:20 EDT Primary Pain Location Abdomen Primary Pain Intensity 9 Primary Pain Pharma Intervention Medication Primary Pain Nonverbal Response Nods Yes Pain Scale Type 0-10 Pain scale 03/14/2024 19:35 EDT Pain Scale Assessment 0-10 Pain scale Primary Pain Intensity 0 Pain Symptoms No 03/14/2024 19:33 EDT Primary Pain Intensity 4 Pain Scale Type 0-10 Pain scale 03/14/2024 18:57 EDT Primary Pain Intensity 7 03/14/2024 17:31 EDT Primary Pain Intensity 10 03/14/2024 17:17 EDT Primary Pain Location Flank Primary Pain Laterality Right Primary Pain Intensity 10 Pain Scale Type 0-10 Pain scale . General: Alert and oriented. Airway: Mallampati classification: II (soft palate, fauces, uvula visible). Dentition Evaluation: Own teeth, front upper right incisor cap recently fell out per pt she replaced it w temporary cement worried that it is stil loose discussed high risk to become further loosend or dislodge pt is fully aware she fully accepts these risks wishes to proceed . Respiratory: Respirations are non-labored. Neurologic: Alert, Oriented. Review / Management Results review: No qualifying data available , Lab results 03/15/2024 9:58 EDT SN - Proc - Anesthesia Type General SN - Proc - Actual Procedure LAPAROSCOPIC APPENDECTOMY POSSIBLE OPEN 03/15/2024 9:58 EDT SN - SP - Prep Agents Chloraprep SN - SP - HR - Method N/A 03/15/2024 9:57 EDT SN - PP - Body Position Supine Standard Intra-op 03/15/2024 9:56 EDT SN - PTCare - Thermals Forced Air Warming Device Upper Body SN - PTCare - Anti-thromboembolism Shonna Sequential Compression Device (SCD) 03/15/2024 9:56 EDT Individuals Taught Patient Learning Readiness Willing to learn Barriers to Learning None evident Teaching Method Explanation Preferred Spoken Language Cuban Preferred Written Language Cuban Diagnostic Procedures Education Preprocedure/surgical instructions Mechanical VTE Prophylaxis Education Purpose of Mechanical VTE Prophylaxis Teaching Evaluation Needs reinforcement 03/15/2024 9:55 EDT SN - Assess - LOC Alert, Awake SN - Assess - Orientation Oriented X 3 SN - Assess - Post-op Skin Integrity Intact/Dry 03/15/2024 9:55 EDT SN - WV - Medication bupivacaine 0.5% PF Kourtney 30 mL SN - WV - Route of Administration Local 03/15/2024 9:54 EDT SN - GCD - Post-operative Diagnosis APPENDICITIS SN - GCD - Case Level Level 4 03/15/2024 9:54 EDT SN - CAt - Case Attendee SN - CAt - Case Attendee SN - CAt - Case Attendee SN - CAt - Case Attendee SN - CAt - Case Attendee SN - CAt - Case Attendee SN - CAt - Case Attendee SN - CAt - Case Attendee SN - CAt - Case Attendee SN - CAt - Case Attendee SN - CAt - Case Attendee SN - CAt - Case Attendee SN - CAt - Role Performed Primary Surgeon SN - CAt - Role Performed Anesthesiologist SN - CAt - Role Performed TAI CHI INSTRUCTOR SN - CAt - Role Performed Clinical Data Manager 1 SN - CAt - Role Performed Scrub 1 SN - CAt - Role Performed Bedspring Assembler 1 03/15/2024 9:53 EDT Accompanied By Staff Transporter Out of Room Went to Current Location Surgery Transport via Bed 03/15/2024 9:43 EDT Continuous IV Infusions LR@125 Antecubital Right 22 gauge Peripheral IV Activity: Assessed Peripheral IV Dressing Condition: Clean, Dry, Intact Peripheral IV Dressing Activity: Transparent dressing Peripheral IV Line Status/Patency: Flushes easily, Continuous infusion Peripheral IV Line Care: Secured with tape Peripheral IV Site Condition: No complications Peripheral IV Equipment: IV Pump CHG Preoperative Wash/Wipe Site specific wipe Preop Nasal Swab Povidone-Iodine NPO Status Maintained 03/15/2024 9:30 EDT CHG Preoperative Wash/Wipe Day of procedure 03/15/2024 9:00 EDT citalopram Not Done: Patient NPO (Not Done) 03/15/2024 8:48 EDT Reason For Taking VItal Signs Routine Primary Pain Location Abdomen Abdominal Pain Location RLQ, RUQ, Umbilical Primary Pain Intensity 9 Primary Pain Quality Aching Primary Pain Pharma Intervention Medication Primary Pain Nonverbal Response Nods Yes Pain Scale Type 0-10 Pain scale Nail Bed Color Madeira Capillary Refill < 2 seconds Heart Sounds ICU S1S2 Heart Rhythm Regular Dorsalis Pedis Pulse, Left 2+ Normal Dorsalis Pedis Pulse, Right 2+ Normal Radial Pulse, Left 2+ Normal Radial Pulse, Right 2+ Normal Respirations Unlabored Respiratory Pattern Regular Breath Sounds Auscultated Anterior only All Lobes Breath Sounds Clear Cough and Deep Breathe Done Cough None Oxygen Therapy Room air GI Symptoms Cramping Abdomen Description Non-distended Abdomen Palpation Tender Abdomen Tender LLQ, RLQ, Umbilical Passing Flatus Yes Bowel Continence No bowel movement Swallowing Disorder None Bowel Sounds All Quadrants Hypoactive Urinary Elimination Voiding, no difficulties Urine Color Yellow Urine Description Medium amount Skin Symptoms Bruising All Extremity Description Normal for ethnicity Skin Temperature Warm Temperature All Extremities Warm Skin Description Normal for ethnicity Skin Integrity Pressure points intact Skin Turgor Elastic Mucous Membrane Color Madeira Mucous Membrane Description Moist Sensory Perception Sumeet Slightly limited Moisture Sumeet Rarely moist Activity Sumeet Bedfast Mobility Sumeet Slightly limited Nutrition Sumeet Probably inadequate Friction and Shear Sumeet Potential problem Sumeet Score 15 Hospital Acquired Pressure Injury Risk Low risk (score 15-18) Continuous IV Infusions LR@125 Antecubital Right 22 gauge Peripheral IV Activity: Assessed Peripheral IV Dressing Condition: Clean, Dry, Intact Peripheral IV Dressing Activity: Transparent dressing Peripheral IV Line Status/Patency: Flushes easily, Continuous infusion Peripheral IV Line Care: Secured with tape Peripheral IV Site Condition: No complications Peripheral IV Equipment: IV Pump Neurological Language Able to speak clearly Neurological Symptoms Patient denies Gait Steady Extremity Movement Equal Swallowing Difficulty None Characteristics of Communication Appropriate Characteristics of Speech Clear Level of Consciousness Alert KWAME Yes Left Pupil Description Regular Right Pupil Description Regular Left Pupil Reaction Brisk Right Pupil Reaction Brisk Pupil Size, Left 3 mm Pupil Size, Right 3 mm Strength All Extremities Strong Tone All Extremities Normal Sensation All Extremities Intact Kim Screen Daily History of Fall in Last 3 Months Kim No Presence of Secondary Diagnosis Kim Yes Use of Ambulatory Aid Kim None, bedrest, wheelchair, nurse IV/PRN Adapter Fall Risk Kim Yes Gait Weak or Impaired Fall Risk Kim Weak Mental Status Fall Risk Kim Oriented to own ability Kim Fall Risk Score 45 Violence Risk Confused No Violence Risk Irritable No Violence Risk Boisterous No Violence Risk Verbal Threats No Violence Risk Physical Threats No Violence Risk Attacking Objects No Violence Risk Predictor Score 0 Violence Risk Intervention None Violence Risk Current Interventions None Affect/Behavior Appropriate Orientation Oriented x 4 Orientation Assessment Oriented x 4 Memory Recall Ability Current season Positioning Repositions self Activity Status ADL Resting Sequential Compression Device bilateral knee high removed/off Reason SCD Removed/Off Patient refused Standard Safety Safety level maintained High Risk Safety Room check performed Demonstrates Correct Call Light Use Yes HYDROmorphone 0.5 mg mg ondansetron 4 mg mg Appetite Unable to obtain Eating Difficulties Unable to obtain Stool Count 0 EA 03/15/2024 8:22 EDT Blood Glucose, Capillary 110 mg/dL 03/15/2024 7:58 EDT Patient Instructions Documentation Patient Instructions Documentation 03/15/2024 7:58 EDT Temperature Oral 37.1 DegC Peripheral Pulse Rate 82 bpm Respiratory Rate 16 br/min Systolic Blood Pressure Non-Invasive 103 mmHg Diastolic Blood Pressure Non-Invasive 64 mmHg Oxygen Therapy Room air Oxygen Saturation 96 % 03/15/2024 7:43 EDT History and Physical History and Physical (Modified) History of Present Illness Documentation History of Present Illness Documentation Impression and Plan Documentation Impression and Plan Documentation Review of Systems Documentation Review of Systems Documentation 03/15/2024 7:00 EDT Urine Count 1 EA 03/15/2024 6:59 EDT Lactated Ringers Injection 610.4167 mL mL 03/15/2024 6:42 EDT NPO Status Maintained 03/15/2024 5:57 EDT Pain Scale Assessment PAINAD Primary Pain Location Abdomen Primary Pain Intensity 2 Reason for PRN medication Pain management PRN medication effectiveness Yes Antecubital Right 22 gauge Peripheral IV Activity: Assessed Peripheral IV Dressing Condition: Clean, Dry, Intact Peripheral IV Line Status/Patency: Flushes easily Peripheral IV Site Condition: No complications Peripheral IV Equipment: IV Pump Standard Safety ID band on, Safety level maintained Demonstrates Correct Call Light Use Yes PRN Medication Effectiveness Evaluation PRN Medication Effectiveness Evaluation 03/15/2024 5:04 EDT Mechanical VTE Prophylaxis Education Not Done: Task Duplication (Not Done) Sequential Compression Device Not Done: Task Duplication (Not Done) Sequential Compression Device Form Not Done (Not Done) 03/15/2024 4:24 EDT Primary Pain Location Abdomen Primary Pain Intensity 9 Primary Pain Pharma Intervention Medication Pain Scale Type 0-10 Pain scale Positioning Repositions self, Encouraged/reinforced importance of turning Standard Safety ID band on, Safety level maintained Demonstrates Correct Call Light Use Yes HYDROmorphone 0.5 mg mg 03/15/2024 3:38 EDT RN Coordination of Care 3am-7am 03/15/2024 3:00 EDT Mechanical VTE Prophylaxis Education Not Done: Not Appropriate at this Time (NotDone) Sequential Compression Device Not Done: Not Appropriate at this Time (Not Done) Sequential Compression Device Form Not Done (Not Done) 03/15/2024 2:59 EDT Pain Scale Assessment PAINAD Primary Pain Location Abdomen Primary Pain Intensity 1 Reason for PRN medication Pain management Reason for PRN medication Nausea and/or vomiting PRN medication effectiveness Yes PRN Med for Nausea/Vomiting Effective Yes Continuous IV Infusions LR@125 Antecubital Right 22 gauge Peripheral IV Activity: Assessed Peripheral IV Dressing Condition: Clean, Dry, Intact Peripheral IV Line Status/Patency: Flushes easily Peripheral IV Site Condition: No complications Peripheral IV Equipment: IV Pump Positioning Repositions self, Encouraged/reinforced importance of turning Nurse Safety Checks q2hrs Performed 3am-7am Standard Safety ID band on, Safety level maintained Demonstrates Correct Call Light Use Yes PRN Medication Effectiveness Evaluation PRN Medication Effectiveness Evaluation PRN Medication Effectiveness Evaluation PRN Medication Effectiveness Evaluation 03/15/2024 2:07 EDT Lactated Ringers Injection Begin Bag 1,000 mL mL 03/15/2024 2:06 EDT Body Mass Index 28.69 kg/m2 Sleep Apnea Snore No Sleep Apnea Tired No Sleep Apnea Obstruction No Sleep Apnea Pressure No Sleep Apnea BMI No Sleep Apnea Age No Sleep Apnea Neck No Sleep Apnea Gender No Sleep Apnea Score 0 Diagnosed With Sleep Apnea No 03/15/2024 1:20 EDT Primary Pain Location Abdomen Primary Pain Intensity 8 Primary Pain Pharma Intervention Medication Primary Pain Nonverbal Response Nods Yes Pain Scale Type 0-10 Pain scale Standard Safety ID band on, Safety level maintained Demonstrates Correct Call Light Use Yes HYDROmorphone 0.5 mg mg piperacillin-tazobactam 3.375 gram(s) gram(s) 03/15/2024 1:13 EDT prochlorperazine 5 mg mg 03/15/2024 0:58 EDT Skin Assessment Verification Not Done: Task Duplication (Not Done) 03/15/2024 0:54 EDT Pain Scale Assessment PAINAD Primary Pain Location Abdomen Primary Pain Intensity 5 Reason for PRN medication Pain management Reason for PRN medication Nausea and/or vomiting PRN medication effectiveness Yes PRN Med for Nausea/Vomiting Effective Yes Individuals Taught Patient Learning Readiness Willing to learn Barriers to Learning None evident Teaching Method Explanation Preferred Spoken Language Cuban Preferred Written Language Cuban PRN Medication Effectiveness Evaluation PRN Medication Effectiveness Evaluation PRN Medication Effectiveness Evaluation PRN Medication Effectiveness Evaluation 03/15/2024 0:07 EDT Temperature Oral 36.7 DegC Peripheral Pulse Rate 85 bpm Respiratory Rate 18 br/min Systolic Blood Pressure Non-Invasive 107 mmHg Diastolic Blood Pressure Non-Invasive 64 mmHg Blood Pressure Method Automatic Blood Pressure Location Right arm Blood Pressure Cuff Size Medium Oxygen Therapy Room air Oxygen Saturation 95 % Positioning Repositions self Activity Status ADL Awake Standard Safety ID band on, Safety level maintained Demonstrates Correct Call Light Use Yes 03/15/2024 0:02 EDT IV Present Present Allergies Yes Consent Form Signed Yes Patient Dressed In Hospital gown CHG Preoperative Wash/Wipe Night before procedure History & Physical On Chart Yes Obstructive Sleep Apnea Assess Completed Yes NPO Status Initiated Allergy Band on and Verified Yes Patient ID Band on and Verified Yes 03/15/2024 0:01 EDT Mechanical VTE Prophylaxis Education Not Done: Task Duplication (Not Done) Sequential Compression Device Not Done: Task Duplication (Not Done) Sequential Compression Device Form Not Done (Not Done) 03/14/2024 23:41 EDT Nurse Safety Checks q2hrs Performed 11pm-3am Standard Safety ID band on, Safety level maintained Demonstrates Correct Call Light Use Yes 03/14/2024 23:00 EDT Stool Count 0 EA Urine Voided 2 mL 03/14/2024 22:32 EDT ondansetron 4 mg mg 03/14/2024 22:29 EDT Primary Pain Location Abdomen Primary Pain Intensity 9 Primary Pain Pharma Intervention Medication Primary Pain Nonverbal Response Nods Yes Pain Scale Type 0-10 Pain scale HYDROmorphone 0.5 mg mg 03/14/2024 22:20 EDT Pain Scale Assessment 0-10 Pain scale Primary Pain Location Abdomen Primary Pain Intensity 9 Reason for PRN medication Pain management PRN medication effectiveness No PRN Medication Effectiveness Evaluation PRN Medication Effectiveness Evaluation 03/14/2024 21:23 EDT citalopram Not Done: Patient Refused (Not Done) 03/14/2024 21:21 EDT Positioning Repositioned back Activity Status ADL Awake, Resting Bed Bath Refused Standard Safety ID band on, Call device within reach, Safety level maintained Demonstrates Correct Call Light Use Yes 03/14/2024 21:20 EDT Primary Pain Location Abdomen Primary Pain Intensity 9 Primary Pain Pharma Intervention Medication Primary Pain Nonverbal Response Nods Yes Pain Scale Type 0-10 Pain scale oxyCODONE 10 mg mg 03/14/2024 21:09 EDT enoxaparin Not Done: Not Appropriate at this Time (Not Done) 03/14/2024 21:03 EDT Notify date/time 03/14/2024 21:04 Provider Notified JUAN ELLIS MD Notification Method Answering service Information Communicated Patient arrival, Medication request Details Communicated paged. Admission orders and home meds 03/14/2024 20:49 EDT Designated Person #1 We May Share [facility] Jhonny Banegas [phone] Designated Person #1 Relationship Spouse Privacy Restrictions Requested None Height 170.2 cm Height in inches 67 inch(es) Admission Weight 83.1 kg Weight Lbs 182.8 lb Leonard Body Weight 61.62 kg BSA Admission 1.95 Body Mass Index 28.69 kg/m2 Patient Type Inpatient Thrombosis Risk Factors (1) Contraceptive, hormone replacement therapy, or Selective Thrombosis Risk Factor Add'l Assessment NA Thrombosis Risk Score 1 Status No, per patient Thoughts of Harming Others - History No Thoughts of Suicide - History No Hospital Clergy to Visit Patient Verbalizes No Spiritual Needs Sensory Deficits None Advanced Directives No - refuses information Infectious Disease Symptoms Patient states no symptoms Infectious Disease Recent Exposure No Alcohol and Drug Use No Employee of Institutional Living No Health Care Employee No History of Exposure to TB No History of Positive Chest X-Ray for TB No History of Positive TB Skin Test No Homeless No Known Immunosuppression No Recent Immigrant No Resident of Institutional Living No Bloody Sputum No Fatigue No Fever No Loss of Appetite No Night Sweats No Persistent Cough > 3 Weeks No Weight Loss No Barriers to Learning None evident Teaching Method Explanation Preferred Spoken Language Cuban Preferred Written Language Cuban Teaching Evaluation Verbalizes/Nonverbally indicates understanding Safety Brochure Information Reviewed Yes Merrill Sanchez Video Viewed Yes Information Given by Patient Patient's Current Physicians Dr Titus Belongings At Bedside Cell phone, Pants, Shoes, Socks, T-shirt, Undergarments, Wedding band Personal Home Medications Received No home medications were brought in Belongings Sent Home None Belongings to Security/Secured in Dept None Discharge To, Anticipated Home independently Prev Test Positive/Diagnosis w/COVID-19 No Current Quarantine/Isolated any Illness No Any Contact with Sick Animals/Birds No Traveled Anywhere in Last 30 Days No Lost Weight Unintentionally Recently No Eat Poorly Due to Decreased Appetite No Total MST Score 0 No Personal Devices, Patient Valuables Dentures, partial plate Admission Note-Nursing Patient History 03/14/2024 20:47 EDT Temperature Oral 36.5 DegC Peripheral Pulse Rate 62 bpm Respiratory Rate 18 br/min Systolic Blood Pressure Non-Invasive 107 mmHg Diastolic Blood Pressure Non-Invasive 69 mmHg Nail Bed Color Madeira Capillary Refill < 2 seconds Heart Rhythm Regular Dorsalis Pedis Pulse, Left 2+ Normal Dorsalis Pedis Pulse, Right 2+ Normal Respirations Unlabored Respiratory Pattern Regular Breath Sounds Auscultated Anterior and posterior All Lobes Breath Sounds Clear Oxygen Therapy Room air Oxygen Saturation 99 % Abdomen Description Non-distended, Soft Abdomen Palpation Tender Abdomen Tender All quadrants Passing Flatus Yes Bowel Sounds All Quadrants Present Urinary Elimination Voiding, no difficulties All Extremity Description Madeira, Normal for ethnicity Skin Temperature Warm Temperature All Extremities Warm Skin Description Madeira, Normal for ethnicity Skin Integrity Intact Sensory Perception Sumeet No impairment Moisture Sumeet Rarely moist Activity Sumeet Walks frequently Mobility Sumeet No limitations Nutrition Sumeet Adequate Friction and Shear Sumeet No apparent problem Sumeet Score 22 Hospital Acquired Pressure Injury Risk None/minimal risk (score 19-23) Continuous IV Infusions 0 Antecubital Right 22 gauge Peripheral IV Activity: Assessed Peripheral IV Dressing Condition: Clean, Dry, Intact Peripheral IV Line Status/Patency: Flushes easily Peripheral IV Site Condition: No complications Peripheral IV Equipment: PRN Adaptor Neurological Language Able to speak clearly Neurological Symptoms Patient denies Gait Steady Extremity Movement Equal Swallowing Difficulty None Characteristics of Communication Appropriate Characteristics of Speech Clear Level of Consciousness Alert KWAME Yes Strength All Extremities Strong Tone All Extremities Normal Sensation All Extremities Intact Kim Screen Admission History of Fall in Last 3 Months Kim No Presence of Secondary Diagnosis Kim No Use of Ambulatory Aid Kim None, bedrest, wheelchair, nurse IV/PRN Adapter Fall Risk Kim No Gait Weak or Impaired Fall Risk Kim Normal, bedrest, immobile Mental Status Fall Risk Kim Oriented to own ability Kim Fall Risk Score 0 Violence Risk Confused No Violence Risk Irritable No Violence Risk Boisterous No Violence Risk Verbal Threats No Violence Risk Physical Threats No Violence Risk Attacking Objects No Violence Risk Predictor Score 0 Affect/Behavior Appropriate, Cooperative, Anxious Orientation Oriented x 4 Orientation Assessment Oriented x 4 Nurse Safety Checks q2hrs Performed 7pm-11pm Standard Safety ID band on, Safety level maintained Demonstrates Correct Call Light Use Yes 03/14/2024 19:35 EDT Pain Scale Assessment 0-10 Pain scale Primary Pain Intensity 0 Pain Symptoms No PEWS Behavior Assessment 0 PEWS Cardiovascular Assessment 0 PEWS Extra 0 PEWS Respiratory Assessment 0 PEWS Score 0 Individuals Taught Patient Learning Readiness Willing to learn Barriers to Learning None evident Teaching Method Explanation Teaching Evaluation Verbalizes/Nonverbally indicates understanding Transfer Requirements Met Patient has received a medical screening, Patient will be transferred by qualified personnel, Receiving facility has agreed to accept transfer, Has available space and qualified personnel, Risks and benefits of transfer explained to patient, Risks and benefits explained [facility] artist representative Transferring Physician TORI ANTOINE DO Receiving Facility Accepting Transfer [facility] Accepting Physician Dr Ellis Date/Time Physician Accepted Patient 03/14/2024 19:00 Nurse Receiving Report Sulma Date/Time Nurse Received Report 03/14/2024 19:49 03/14/2024 19:33 EDT Peripheral Pulse Rate 74 bpm Respiratory Rate 18 br/min Systolic Blood Pressure Non-Invasive 115 mmHg Diastolic Blood Pressure Non-Invasive 78 mmHg Reason For Taking VItal Signs 5 min post antibiotic start time Primary Pain Intensity 4 Pain Scale Type 0-10 Pain scale 03/14/2024 19:21 EDT cefOXitin 2 gram(s) gram(s) Sodium Chloride 0.9% 100 mL mL 03/14/2024 18:57 EDT Primary Pain Intensity 7 morphine 4 mg mg 03/14/2024 18:52 EDT WBC 15.4 10^3/mcL HI RBC 4.39 10^6/mcL Hgb 13.9 G/dL Hct 40.3 % MCV 91.9 fL MCH 31.6 pg HI MCHC 34.3 G/dL RDW 12.9 % Platelet 278 10^3/mcL MPV 8.4 fL Monocyte Distribution Width 22.01 HI Neutrophil % 79.3 % Lymphocyte % 16.1 % Monocyte % 4.1 % Eosinophil % 0.3 % Basophil % 0.2 % Neutrophil, Absolute 12.2 10^3/mcL HI Lymphocyte, Absolute 2.5 10^3/mcL Monocyte, Absolute 0.6 10^3/mcL Eosinophil, Absolute 0.0 10^3/mcL Basophil, Absolute 0.0 10^3/mcL 03/14/2024 18:[address] ABDOMEN/PELVIS W/O CONTRAST CT ABDOMEN/PELVIS W/O CONTRAST 03/14/2024 17:31 EDT Primary Pain Intensity 10 ketorolac 15 mg mg ondansetron 4 mg mg Sodium Chloride 0.9% 1,000 mL mL 03/14/2024 17:28 EDT Hgb 13.7 G/dL Hct 39.7 % UA Specimen Type Clean Catch UA Color Yellow UA Appear Clear UA Spec Grav 1.025 UA Glucose Negative mg/dL UA Bili Negative UA Ketones Negative mg/dL UA Blood Negative UA pH 7.0 UA Protein Negative mg/dL UA Urobilinogen 0.2 E.U./dL UA Nitrite Negative UA Leuk Est Negative Test Urine Negative test (u) int test (u) int Glucose Level 107 mg/dL HI Sodium Level 139 mmol/L Potassium Level 4.4 mmol/L Chloride 102 mmol/L CO2 26 mmol/L Electrolyte Balance 11.0 mEq/L BUN 11 mg/dL Creatinine Lvl (s) 0.82 mg/dL BUN/Creatinine Ratio 13 ratio Calcium Lvl 9.4 mg/dL GFR Non- 82 ml/min/1.73sqm NA GFR 99 ml/min/1.73sqm NA Creatinine Clearance Calc 97.59 mL/min QC PRGUN Negative QC PRGUP Positive 03/14/2024 17:23 EDT [place] [facility] Note 03/14/2024 17:19 EDT Status No, per patient Kim Screen Daily History of Fall in Last 3 Months Kim No History of Fall in Last 3 Months Kim No Presence of Secondary Diagnosis Kim No Use of Ambulatory Aid Kim None, bedrest, wheelchair, nurse IV/PRN Adapter Fall Risk Kim No Gait Weak or Impaired Fall Risk Kim Normal, bedrest, immobile Mental Status Fall Risk Kim Oriented to own ability Kim Fall Risk Score 0 Thoughts of Harming Others - History No Thoughts of Suicide - History No Domestic Concerns Denies HT Control,Supervise,Monitor Denies Advanced Directives No - refuses information Individuals Taught Patient Learning Readiness Willing to learn Barriers to Learning None evident Teaching Method Explanation Teaching Evaluation Verbalizes/Nonverbally indicates understanding Chief Complaint c/o right flank pain since this am Place Where Injury/Illness Occurred Home Anticoagulants Taken In Past 6 Wks. No No Anesthesia/Transfusions Prior anesthesia ED Assessment Note - Nursing ED Patient History Form 03/14/2024 17:17 EDT Height 170.2 cm Admission Weight 81.8 kg Leonard Body Weight 61.62 kg Temperature Oral 36.7 DegC Peripheral Pulse Rate 75 bpm Respiratory Rate 18 br/min Systolic Blood Pressure Non-Invasive 186 mmHg HI Diastolic Blood Pressure Non-Invasive 94 mmHg HI Primary Pain Location Flank Primary Pain Laterality Right Primary Pain Intensity 10 Pain Scale Type 0-10 Pain scale Respirations Unlabored Oxygen Therapy Room air Oxygen Saturation 97 % Abdomen Description Non-distended, Soft, Rounded Level of Consciousness Alert Orientation Oriented x 4 Wish To Be No Suicidal Thoughts No Ever Made Plans to End Your Life No Suicide Severity Rating No problems noted Infectious Disease Symptoms Patient states no symptoms Infectious Disease Recent Exposure No Alcohol and Drug Use No Employee of Institutional Living No Health Care Employee No History of Exposure to TB No History of Positive Chest X-Ray for TB No History of Positive TB Skin Test No Homeless No Known Immunosuppression No Recent Immigrant No Resident of Institutional Living No Bloody Sputum No Fatigue No Fever No Loss of Appetite No Night Sweats No Persistent Cough > 3 Weeks No Weight Loss No Preferred Spoken Language Cuban Preferred Written Language Cuban Tracking Group ED AO Tracking Group Tracking Acuity 3 Mode of Transfer Private vehicle Standard Safety ID band on, Allergy Band on, Call device within reach, Bed in low position, Wheels locked, Upper/Half-Length side-rails up, Bedside Cart Locked, Safety level maintained Prev Test Positive/Diagnosis w/COVID-19 No Current Quarantine/Isolated any Illness No Any Contact with Sick Animals/Birds No Traveled Anywhere in Last 30 Days No ED Triage Adults ED Triage Adults 03/14/2024 15:00 EDT Stool Count 0 EA . Assessment and Plan [place] [employer] (ASA) physical status classification: Class II. Anesthetic Preoperative Plan Premedication: intravenous. Anesthetic technique: General. Induction: intravenously. Maintenance airway: Oral endotracheal tube. Postoperative pain management: Per surgeon. Risks discussed: nausea, vomiting, headache, sore throat, dental injury, hypotension, allergic reaction, serious complications. Informed consent: signed by patient. Notes: Extensive time was spent discussing with the patient and/or POA the inherent risks of anesthesia including but not limited too sore throat, dental injuries to teeth and gums, corneal abrasions, risk of heart attack, stroke, end organ dysfunction, and . The patient and/or POA is aware ofthese risks, accepts them and wishes to proceed with anesthesia. RSI neg bhcg . Digitally Signed by MICHELE JOSEPH DO on 03/15/2024 10:08 AM [id number] History and physical note Date of Service 03/15/2004 Chief Complaint Abdominal pain History of Present Illness This is a shared split visit to myself and Dr. Ellis This patient is a 28-year-old female with past medical history of kidney stones requiring lithotripsy who presented to [place] emergency room for complaints of right mid abdominal pain that radiatedinto the back with a sudden onset yesterday afternoon. Patient reporting mild dysuria with urination but denying frequency or dysuria. Initial workup in the emergency room included a CT scan of abdomen and pelvis with basic laboratory data. Patient was noted to have mild leukocytosis with abnormal radiographic findings for uncomplicated acute appendicitis, bilateral nonobstructed nephrolithiasis with additional findings of a migrated and rotation of intra uterine device with the base positioned within the right lateral wall of the uterus near the fundus per the interpretation of the radiologist. Due to the patient's complaint of abdominal pain and findings of [facility] CT [facility] to [facility] services team. Review of Systems pertinent positives described above and otherwise negative. Physical Exam Vitals and Measurements T: 36.7 C (Oral) TMIN: 36.5 C (Oral) TMAX: 36.7 C (Oral) HR: 85 RR: 18 BP: 107/64 SpO2: 95% HT: 170.2 cm WT: 83.1 kg BMI: 28.69 Weight Dosing Weight: 83.1 kg (03/14/24) Lab Results H 15.4 4.39 13.9 40.3 91.9 H 31.6 34.3 12.9 278 8.4 * H 22.01 79.3 16.1 4.1 0.3 0.2 H 12.2 2.5 0.6 0.0 0.0 Imaging Results and Diagnostics T OF THE ABDOMEN AND PELVIS WITHOUT CONTRAST03/14/2024 6:[address] ABDOMEN/PELVIS WITHOUT CONTRAST EXAM DESCRIPTION: TECHNIQUE: CT of the abdomen and pelvis was performed without the administration of intravenous contrast. Multiplanar reformatted images are provided for review. Automated exposure control, iterative reconstruction, and/or weight based adjustment of the mA/kV was utilized to reduce the radiation dose to as low as reasonably achievable. COMPARISON: None available HISTORY: ORDERING SYSTEM PROVIDED HISTORY: Reason for Exam: abdominal pain FINDINGS: The size, density, and morphology of the liver, spleen, adrenals, kidneys, pancreas and unopacified loops of bowel are unremarkable. Bilateral nonobstructive renal stones measuring 2-3 mm each. No evidence hydronephrosis. The unopacified aorta demonstrates normal size and morphology without aneurysmal dilation or dissection. There are no enlarged lymph nodes by pathologic size criteria. Appendix measures up to 1.0 cm in diameter with high density appendicolith at the base of the appendix. There is no free fluid within the pelvis. Intrauterine control device is rotated 90 degrees the base appears to protrude through the right lateral wall of the uterus near the fundus. The bladder and pelvic organs have an unremarkable CT appearance. The osseous structures are without gross lytic or sclerotic lesion. The lung bases are clear. IMPRESSION: 1. Suspect uncomplicated acute appendicitis. 2. Bilateral nonobstructive nephrolithiasis. 3. Apparent migration and rotation of the intrauterine device with the base position within the right lateral wall of the uterus near the fundus. Clinical correlation with physician who placed the device is needed. Interpreted by: Andrew Lezama MD Preliminary Report By: Andrew Lezama MD Electronically signed By Andrew Lezama MD Dictated Date: 03/14/2024 6:26:04 PM Prelim Date: 03/14/2024 6:47:11 PM Sign Date: 03/14/2024 6:47:11 PM Ordering Provider: TORI ANTOINE IMAGE This document has an image Assessment/Plan 1. Appendicitis This patient is a 28-year-old female with a past medical history of kidney stones requiring lithotripsy who presented to [facility] emergency room with complaints of periumbilical abdominal pain found to have uncomplicated acute appendicitis who was transferred to [facility] for definitive care. Vital signs, laboratory data and radiology reports and results have been reviewed. Dr. Ellis to review CT scan. 1. Acute appendicitis. Given the patient's abnormal radiographic findings and examination the patient will be taken to theOR by Dr. Ellis for laparoscopic appendectomy. Risk versus benefits of the surgery were discussed with patient postoperative infection, bleeding, risk for DVT/PE, and intraoperative risk for damage to surrounding structures. The patient voiced understanding and was in agreement with plan. -Patient remain n.p.o. at this time -Continue with antiemetics and analgesics as needed Please see Dr. Ellis's addendum to follow. This document was dictated with voice recognition software and may contain grammatical errors Problem List/Past Medical History Ongoing Procedure/Surgical History No qualifying data available. Medications Home Medications (4) Active citalopram 40 mg oral tablet 40 mg = 1 tab(s) cloNIDine 0.1 mg oral tablet 0.1 mg = 1 tab(s) tiZANidine 4 mg oral tablet 4 mg = 1 tab(s) Vyvanse 40 mg oral capsule 40 mg = 1 cap(s), Oral Allergies ZyrTEC Immunizations No qualifying data available. Code Status Code Status - Ordered -- 03/14/24 21:07:00 EDT, Full Code, Constant Order Digitally Signed by DILLON COLE on 03/15/2024 07:54 AM [facility] [id number] History and physical note Date of Service 03/15/2004 Chief Complaint Abdominal pain History of Present Illness This is a shared split visit to myself and Dr. Ellis This patient is a 28-year-old female with past medical history of kidney stones requiring lithotripsy who presented to [place] emergency room for complaints of right mid abdominal pain that radiatedinto the back with a sudden onset yesterday afternoon. Patient reporting mild dysuria with urination but denying frequency or dysuria. Initial workup in the emergency room included a CT scan of abdomen and pelvis with basic laboratory data. Patient was noted to have mild leukocytosis with abnormal radiographic findings for uncomplicated acute appendicitis, bilateral nonobstructed nephrolithiasis with additional findings of a migrated and rotation of intra uterine device with the base positioned within the right lateral wall of the uterus near the fundus per the interpretation of the radiologist. Due to the patient's complaint of abdominal pain and findings of [facility] CT [facility] services team. Review of Systems pertinent positives described above and otherwise negative. Physical Exam Vitals and Measurements T: 36.7 C (Oral) TMIN: 36.5 C (Oral) TMAX: 36.7 C (Oral) HR: 85 RR: 18 BP: 107/64 SpO2: 95% HT: 170.2 cm WT: 83.1 kg BMI: 28.69 Weight Dosing Weight: 83.1 kg (03/14/24) Lab Results H 15.4 4.39 13.9 40.3 91.9 H 31.6 34.3 12.9 278 8.4 * H 22.01 79.3 16.1 4.1 0.3 0.2 H 12.2 2.5 0.6 0.0 0.0 Imaging Results and Diagnostics T OF THE ABDOMEN AND PELVIS WITHOUT CONTRAST03/14/2024 6:[address] ABDOMEN/PELVIS WITHOUT CONTRAST EXAM DESCRIPTION: TECHNIQUE: CT of the abdomen and pelvis was performed without the administration of intravenous contrast. Multiplanar reformatted images are provided for review. Automated exposure control, iterative reconstruction, and/or weight based adjustment of the mA/kV was utilized to reduce the radiation dose to as low as reasonably achievable. COMPARISON: None available HISTORY: ORDERING SYSTEM PROVIDED HISTORY: Reason for Exam: abdominal pain FINDINGS: The size, density, and morphology of the liver, spleen, adrenals, kidneys, pancreas and unopacified loops of bowel are unremarkable. Bilateral nonobstructive renal stones measuring 2-3 mm each. No evidence hydronephrosis. The unopacified aorta demonstrates normal size and morphology without aneurysmal dilation or dissection. There are no enlarged lymph nodes by pathologic size criteria. Appendix measures up to 1.0 cm in diameter with high density appendicolith at the base of the appendix. There is no free fluid within the pelvis. Intrauterine control device is rotated 90 degrees the base appears to protrude through the right lateral wall of the uterus near the fundus. The bladder and pelvic organs have an unremarkable CT appearance. The osseous structures are without gross lytic or sclerotic lesion. The lung bases are clear. IMPRESSION: 1. Suspect uncomplicated acute appendicitis. 2. Bilateral nonobstructive nephrolithiasis. 3. Apparent migration and rotation of the intrauterine device with the base position within the right lateral wall of the uterus near the fundus. Clinical correlation with physician who placed the device is needed. Interpreted by: Andrew Lezama MD Preliminary Report By: Andrew Lezama MD Electronically signed By Andrew Lezama MD Dictated Date: 03/14/2024 6:26:04 PM Prelim Date: 03/14/2024 6:47:11 PM Sign Date: 03/14/2024 6:47:11 PM Ordering Provider: TORI ANTOINE IMAGE This document has an image Assessment/Plan 1. Appendicitis This patient is a 28-year-old female with a past medical history of kidney stones requiring lithotripsy who presented to [facility] emergency room with complaints of periumbilical abdominal pain found to have uncomplicated acute appendicitis who was transferred to [facility] for definitive care. Vital signs, laboratory data and radiology reports and results have been reviewed. Dr. Ellis to review CT scan. 1. Acute appendicitis. Given the patient's abnormal radiographic findings and examination the patient will be taken to theOR by Dr. Ellis for laparoscopic appendectomy. Risk versus benefits of the surgery were discussed with patient postoperative infection, bleeding, risk for DVT/PE, and intraoperative risk for damage to surrounding structures. The patient voiced understanding and was in agreement with plan. -Patient remain n.p.o. at this time -Continue with antiemetics and analgesics as needed Please see Dr. Ellis's addendum to follow. This document was dictated with voice recognition software and may contain grammatical errors Problem List/Past Medical History Ongoing Procedure/Surgical History No qualifying data available. Medications Home Medications (4) Active citalopram 40 mg oral tablet 40 mg = 1 tab(s) cloNIDine 0.1 mg oral tablet 0.1 mg = 1 tab(s) tiZANidine 4 mg oral tablet 4 mg = 1 tab(s) Vyvanse 40 mg oral capsule 40 mg = 1 cap(s), Oral Allergies ZyrTEC Immunizations No qualifying data available. Code Status Code Status - Ordered -- 03/14/24 21:07:00 EDT, Full Code, Constant Order Digitally Signed by DILLON COLE on 03/15/2024 07:54 AM [facility] [id number] Note ORIGINAL EXAMINATION: CT OF THE ABDOMEN AND PELVIS WITHOUT CONTRAST03/14/2024 6:[address] ABDOMEN/PELVIS WITHOUT CONTRAST EXAM DESCRIPTION: TECHNIQUE: CT of the abdomen and pelvis was performed without the administration of intravenous contrast. Multiplanar reformatted images are provided for review. Automated exposure control, iterative reconstruction, and/or weight based adjustment of the mA/kV was utilized to reduce the radiation dose to as low as reasonably achievable. COMPARISON: None available HISTORY: ORDERING SYSTEM PROVIDED HISTORY: Reason for Exam: abdominal pain FINDINGS: The size, density, and morphology of the liver, spleen, adrenals, kidneys, pancreas and unopacified loops of bowel are unremarkable. Bilateral nonobstructive renal stones measuring 2-3 mm each. No evidence hydronephrosis. The unopacified aorta demonstrates normal size and morphology without aneurysmal dilation or dissection. There are no enlarged lymph nodes by pathologic size criteria. Appendix measures up to 1.0 cm in diameter with high density appendicolith at the base of the appendix. There is no free fluid within the pelvis. Intrauterine control device is rotated 90 degrees the base appears to protrude through the right lateral wall of the uterus near the fundus. The bladder and pelvic organs have an unremarkable CT appearance. The osseous structures are without gross lytic or sclerotic lesion. The lung bases are clear. IMPRESSION: 1. Suspect uncomplicated acute appendicitis. 2. Bilateral nonobstructive nephrolithiasis. 3. Apparent migration and rotation of the intrauterine device with the base position within the right lateral wall of the uterus near the fundus. Clinical correlation with physician who placed the device is needed. Interpreted by: Andrew Lezama MD Preliminary Report By: Andrew Lezama MD Electronically signed By Andrew Lezama MD Dictated Date: 03/14/2024 6:26:04 PM Prelim Date: 03/14/2024 6:47:11 PM Sign Date: 03/14/2024 6:47:11 PM Ordering Provider: [facility]05-17-2024 History of Present illness Narrative* Alyson Harrell MA - 12/07/2023 11:04 AM EDT Items addressed in this encounter: Virtual Visit Pre Check In Attempted to reach patient no answer [facility] Alyson Harrell MA December 07, 2023 11:04 AM 11:04 AM * Keaton Tracy MD - 11/22/2023 12:31 PM EDT Telemedicine Visit - Distance Health Virtual Visit Note Patient seen on ilustrum video visit platform. Location of patient: [place] I have communicated my name and active licensure. The patient's identity and physical location wereverified at the time of this visit. Either the patient or their legal artist representative has been informed of the risks and benefits of -- and alternatives to -- treatment through a remote evaluation andconsents to proceed with the evaluation remotely. History of Present Illness Patient presents for f/u 1) ADHD - Vyvanse. Scheduling with psych 2) Panic attacks - Previous PCP had wanted to start Prozac, but patient did not want to take a daily medication. She has taken Clonidine (clarified not Klonopin) in the past for panic and it helped. Would like to see psychiatry. Side effects with Hydroxyzine. Has side effects with Seroquel. Denies any drug use. She admits to using drugs when younger. Recent social stressors. Mood has worsened. Scheduling with psychiatry. Has been having panic attacks. Continues to take Clonidine as needed. Panic attacks have been occurring frequently over the last 5 days. Was in ER and was treated with Valium. Started on Celexa 2 weeks ago. Abilify added for more immediate relief of symptoms. Advised scheduling with psych More recently seen by psychiatry locally and was started on Propranolol. Stopped medication due to side effects. Psychiatry advised against Abilify - Had not tried yet. Never started. Citalopram increased to 20mg by psych. 3) Migraine - Prn triptan. Sees neurology. 4) Hep C - Last RNA negative. Recent mild transaminitis and elevated bili. Repeat hep C RNA ordered. 5) H/o abnormal pap - Sees research recruiter 6) Smoker - Pre-contemplative. 7) Chronic back pain - Muscle relaxants. 8) Overweight - GLP1as not covered. Did not tolerate Topamax. Did not have effect with Wellbutrin. We could consider Metformin. Adipex is contraindicated by use of Vyvanse. 9) Adrenal adenoma - MRI suggested benign lesion. Hormonal testing ordered by anshu PAST MEDICAL HISTORY Diagnosis Date ASCUS with positive high risk HPV cervical 09/26/2019 Asthma 11/29/2011 ATTN DEFICIT NONHYPERACT 11/27/2007 Bulging of intervertebral disc between L4 and L5 and L5 and S1 09/07/2015 Chest pain 04/29/2010 Chlamydia infection 09/23/2013 Depression 05/26/2011 Depression complicating , antepartum 08/02/2012 Diet controlled gestational diabetes mellitus (GDM) in second trimester 11/08/2022 11/08/22- 2 levels out of 3 elevated. Supplies and referrals ordered. Sulma Bartholomew APRN.CNM Generalized anxiety disorder GERD (gastroesophageal reflux disease) Hepatitis C 2017 2018 cured after medication course. High grade squamous intraepithelial cervical dysplasia History of suicide attempt 2014 cutting wrist Juvenile osteochondrosis of lower extremity, excluding foot 2004, resolved Migraine headache 05/26/2011 other Sever's Disease, 2006, resolved Other acne 01/27/2010 Pain in joint, site unspecified AC joint tear, 2005 Patient requested diagnostic testing 04/18/2012 04/18/2012 Patient desires early screening in with sequential testing. Poor support system complicating 04/18/2012 04/18/2012The father of the baby is aware that she is , but does not wish to be involved. Patient states her parents are very supportive. Patient is tearful for some of this visit today due to the father of the baby. She states he has put pressure on her in the past to have an , butshe does not wish to do that. Patient was given a brochure on the care center and WIC. depression PTSD (post-traumatic stress disorder) Rosacea 01/27/2010 Rubella non-immune status 04/22/2012 Skin cancer Teen 04/22/2012 July 04, 2012 Flu vaccine given Telangiectasia 01/27/2010 Tobacco use disorder Current Outpatient Medications on File Prior to Visit Medication Sig citalopram hydrobromide (CELEXA) 10 mg tablet Take 1 tablet by mouth once daily. ARIPiprazole (ABILIFY) 2 mg tablet Take 1 tablet by mouth once daily. lisdexamfetamine (VYVANSE) 40 mg capsule Take 1 capsule by mouth once daily for 30 days. tiZANidine (ZANAFLEX) 4 mg tablet Take 1/2 - 1 tablet oral Three times a day , PRN as needed for 30Days cloNIDine HCl (CATAPRES) 0.1 mg tablet Take 1 tablet by mouth once daily as needed (Anxiety). metFORMIN ER (GLUCOPHAGE XR) 500 mg 24 hr tablet Take 1 tablet by mouth daily with breakfast. SUMAtriptan (IMITREX) 100 mg tablet Take 1 tablet (100 mg) by mouth as needed. TAKE ONE (1) TABLET EVERY 2 HOURS WITH A MAXIMUM DOSE OF 200 MG PER DAY NEEDED FOR HEADACHE levonorgestrel (LILETTA) 20.4 mcg/24 hrs (8 yrs) 52 mg IUD 1 Each by INTRAUTERINE route as directed. No current facility-administered medications on file prior to visit. Social History Tobacco Use Smoking status: Former Packs/day: 1.00 Years: 9.00 Additional pack years: 0.00 Total pack years: 9.00 Types: Cigarettes Smokeless tobacco: Current Tobacco comments: Vapes Vaping Use Vaping Use: current everyday user Substances: Nicotine Devices: Pre-filled or refillable cartridge Substance Use Topics Alcohol use: Not Currently Drug use: Yes Types: Heroin, Marijuana Comment: Patient states I have used multiple drugs in the past Video Exam (Examination performed via Video enabled technology) General appearance: Alert, oriented, pleasant, in NAD :Yes Ill appearing :No Lethargic appearing :No Respiratory distress :No ASSESSMENT/PLAN: 1. ADHD (attention deficit hyperactivity disorder), inattentive type - ICD9: 314.00, ICD10: F90.0 (primary diagnosis) Stable Continue current medications 2. Panic disorder - ICD9: 300.01, ICD10: F41.0 Stable Continue current medications 3. Anxiety with depression - ICD9: 300.4, ICD10: F41.8 Stable Continue current medications 4. Migraine with aura, not intractable, without status migrainosus - ICD9: 346.00, ICD10: G43.109 Stable. Sees neurology. 5. History of hepatitis C - ICD9: V12.09, ICD10: Z86.19 RNA ordered in July. Keaton Tracy MD [facility] Telephone encounter Note * Telephone Encounter - Maribell Nicholas MA - 11/30/2023 1:40 PM EDT Forms sent to patient via [employer]. Items addressed in this encounter: MyChart Encounter Maribell Nicholas MA November 30, 2023 1:41 PM 1:41 PM [facility]05-10[facility] Miscellaneous Notes* Telephone Encounter - Maribell Nicholas MA - 11/30/2023 1:40 PM EDT Forms sent to patient via [employer]. Items addressed in this encounter: MyChart Encounter Maribell Nicholas MA November 30, 2023 1:41 PM 1:41 PM * Telephone Encounter - Maribell Nicholas MA - 11/28/2023 1:03 PM EDT Forms faxed to Dr. Tracy Items addressed in this encounter: MyChart Encounter Fax/Forms Maribell Nicholas MA November 28, 2023 1:45 PM 1:45 PM documented in [facility]05-[facility] Telephone encounter Note * Telephone Encounter - Maribell Nicholas MA - 11/28/2023 1:03 PM EDT Forms faxed to Dr. Tracy Items addressed in this encounter: MyChart Encounter Fax/Forms Maribell Nicholas MA November 28, 2023 1:45 PM 1:45 PM [facility]05-06-[facility] History of Present illness Narrative* John Braden MD - 11/26/2023 10:12 AM EDT I have communicated my name and active licensure. The patient's identity and physical location wereverified at the time of this visit. Either the patient or their legal artist representative has been informed of the risks and benefits of -- and alternatives to -- treatment through a remote evaluation andconsents to proceed with the evaluation remotely. Ms. Hensley is a 28 year old female referred by Dr Samuels for adrenal nodule, first noted in 02/2020 on MRI, had 1.5cm right mass noted incidentally For the last 4 years she notes she can get episode where hands tense up into claws and face feels stuck, like a cramp with her mouth in an o shape. Told it is panic attack but happens randomly, notwhen anxious. Was having bad migraines during a year ago and they have continued since, gets vision disturbance with it (sees shapes/rainbow). Ordered metformin a few months ago for weight loss but not taking recently. Has IUD. Hx of HTN: No, takes clonidine for anxiety maybe 3 times a week Na/K abnormalities: just on 08/26/23 Acne: No Bruising: Yes, but not new Hirsutism: has had some hair on neck and chin, over last 4 years, thin but long and dark Weight change: No Proximal weakness: No Sweats: usually cold but can sweat Palpitations: No Tremor: Yes, at times over last 4 years Dizziness: Yes, during her episodes or if standing up Headache: Yes Abdominal pain: No N/V: during episodes Diarrhea: Yes, not new Pallor: No All other Review of Systems reviewed and are negative. 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 Supplies and referrals ordered. Sulma Bartholomew, [employer]OND[employer].CNM Generalized anxiety disorder GERD (gastroesophageal reflux disease) Hepatitis C 2017 2018 cured after medication course. High grade squamous intraepithelial cervical dysplasia History of suicide attempt 2015 cutting wrist Juvenile osteochondrosis of lower extremity, excluding foot 2005, resolved Migraine headache 05/26/2011 other Sever's Disease, 2006, resolved Other acne 01/27/2010 Pain in joint, site unspecified AC joint tear, 2005 Patient requested diagnostic testing 04/18/2012 04/18/2012 Patient desires early screening in with sequential testing. Poor support system complicating 04/18/2012 04/18/2012The father of the baby is aware that she is , but does not wish to be involved. Patient states her parents are very supportive. Patient is tearful for some of this visit today due to the father of the baby. She states he has put pressure on her in the past to have an , butshe does not wish to do that. Patient was given a brochure on the care center and WIC. depression PTSD (post-traumatic stress disorder) Rosacea 01/27/2010 Rubella non-immune status 04/22/2012 Skin cancer Teen 04/22/2012 July 04, 2012 Flu vaccine given Telangiectasia 01/27/2010 Tobacco use disorder FAMILY HISTORY Problem Relation Age of Onset Skin Cancer Mother Hypertension Mother Heart Failure Mother Liver Cancer Mother 66 Heart Father TRIPLE BYPASS SURGERY Hypertension Father Diabetes Father Diabetes Sister No Known Problems Sister No Known Problems Sister No Known Problems Brother No Known Problems Brother No Known Problems Brother Heart Maternal Grandmother from heart problems Heart Maternal Grandfather from heart problems Cancer Maternal Grandfather lung Hypertension Maternal Grandfather No Known Problems Daughter Social History Tobacco Use Smoking status: Former Packs/day: 1.00 Years: 9.00 Additional pack years: 0.00 Total pack years: 9.00 Types: Cigarettes Smokeless tobacco: Current Tobacco comments: Vapes Vaping Use Vaping Use: current everyday user Substances: Nicotine Devices: Pre-filled or refillable cartridge Substance Use Topics Alcohol use: Not Currently Drug use: Yes Types: Heroin, Marijuana Comment: Patient states I have used multiple drugs in the past citalopram hydrobromide (CELEXA) 10 mg tablet, Take 1 tablet by mouth once daily., Disp: 90 tablet,Rfl: 0 ARIPiprazole (ABILIFY) 2 mg tablet, Take 1 tablet by mouth once daily., Disp: 90 tablet, Rfl: 0 lisdexamfetamine (VYVANSE) 40 mg capsule, Take 1 capsule by mouth once daily for 30 days., Disp: 30capsule, Rfl: 0 tiZANidine (ZANAFLEX) 4 mg tablet, Take 1/2 - 1 tablet oral Three times a day , PRN as needed for 30 Days, Disp: , Rfl: cloNIDine HCl (CATAPRES) 0.1 mg tablet, Take 1 tablet by mouth once daily as needed (Anxiety)., Disp: 90 tablet, Rfl: 0 metFORMIN ER (GLUCOPHAGE XR) 500 mg 24 hr tablet, Take 1 tablet by mouth daily with breakfast., Disp: 90 tablet, Rfl: 0 SUMAtriptan (IMITREX) 100 mg tablet, Take 1 tablet (100 mg) by mouth as needed. 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, no EtOH, vapes PE: LMP 11/15/2023 (Exact Date) Last 3 Encounter Wt Readings: Date: Wt: 11/19/2023 77.9 kg (171 lb 11.8 oz) 11/15/2023 78 kg (171 lb 15.3 oz) 10/01/2023 79.2 kg (174 lb 9.6 oz) Gen - pleasant, NAD, No pallor, No cushingoid appearance HEENT - no visible thyromegaly or nodules, No SC/DC fat pads Abd - No striae Neuro - no tremor Skin - no hyperpigmentation, no acne or bruising Latest Ref Rng 12/06/2020 03/22/2022 07/31/2023 Metanephrine, Plasma 12 - 67 pg/mL <15 Normetanephrine, Free Plasma 18 - 101 pg/mL 130 (H) ACTH 7.2 - 63.3 pg/mL 16.7 Aldosterone 3.1 - 35.4 ng/dL 9.5 Cortisol 4.8 - 19.5 ug/dL 6.0 Direct Renin pg/mL 14.1 TSH 0.270 - 4.200 mIU/L 0.833 0.602 0.506 Free T4 0.9 - 1.7 ng/dL 1.1 MRI Adrenal without contrast 10/04/23: IMPRESSION: Stable T2 hyperintense/T1 hypointense cystic appearing right adrenal nodule. Likely benign. No developing adrenal abnormality. CT Abd without contrast 08/26/23: ADRENALS: 2.2 cm low-attenuation nodule in the right adrenal gland. MRI L-spine 04/28/20: Localizer images: Incompletely evaluated circumscribed T2 hyperintense lesion measuring 15 mm in maximum dimension in the right adrenal region (series 1, image 9), unchanged. Diagnoses and all orders for this visit: Adrenal nodule (HCC) -d/w her that symptoms are unlikely related to what appears to be stable benign adrenal adenoma (noted since 2019), but biochemical testing is indicated regardless -check plasma metanephrines to r/o pheochromocytoma -check aldosterone/renin to screen for primary hyperaldosteronism given recent hypokalemia -if testing normal will then check 1mg dexamethasone suppression test to r/o subclinical Meta's syndrome -if all labs normal will repeat once more in 1 year, and again if normal no further monitoring would be needed - CONSULT TO ENDOCRINOLOGY - ALDOSTERONE/DIRECT RENIN RATIO; Future - METANEPHRINES, FREE PLASMA; Future - BASIC METABOLIC PANEL; Future F/u 1 year The assessment and benefits/risks of the plan were discussed with the patient who expressed understanding and was agreeable to that which is noted above. This consult note is being shared with the referring provider via an electronic medical record documented in this encounterBu[facility]05-[facility]24 Instructions* Patient Instructions* Keaton Tracy MD - 11/22/2023 12:14 PM EDT Start Celexa Start Abilify. Avoid while taking Vyvanse, Abilify and other medications Send FMLA paperwork via [employer]ustrum Follow in 2 weeks [employer] - Insurance Therapy[facility]seling [facility]ication [facility] [address] [place] [address] [facility] [address] [place] [address] [facility] [address] [place] [address] [facility] [address] [place], [place] [address] [facility] [address] [place] [address] [facility] [address] [place], [place] [address] [id number] [facility], [address] documented in this encounterBu[facility]rus [facility]05-02-2024 History of Present illness Narrative* Keaton Tracy MD - 11/22/2023 8:47 AM EDT Telemedicine Visit - Distance Health Virtual Visit Note Patient seen on ilustrum video visit platform. Location of patient: [place] I have communicated my name and active licensure. The patient's identity and physical location wereverified at the time of this visit. Either the patient or their legal artist representative has been informed of the risks and benefits of -- and alternatives to -- treatment through a remote evaluation andconsents to proceed with the evaluation remotely. History of Present Illness Patient presents for f/u 1) ADHD - Vyvanse 2) Panic attacks - Previous PCP had wanted to start Prozac, but patient did not want to take a daily medication. She has taken Clonidine (clarified not Klonopin) in the past for panic and it helped. Would like to see psychiatry. Side effects with Hydroxyzine. Has side effects with Seroquel. Denies any drug use. She admits to using drugs when younger. Recent social stressors. Mood has worsened. Scheduling with psychiatry. Has been having panic attacks. Continues to take Clonidine as needed. Panic attacks have been occurring frequently over the last 5 days. Was in ER and was treated with Valium. 3) Migraine - Prn triptan. Sees neurology. 4) Hep C - Last RNA negative. Recent mild transaminitis and elevated bili. Repeat hep C RNA ordered. 5) H/o abnormal pap - Sees research recruiter 6) Smoker - Pre-contemplative. 7) Chronic back pain - Muscle relaxants. 8) Overweight - GLP1as not covered. Did not tolerate Topamax. Did not have effect with Wellbutrin. We could consider Metformin. Adipex is contraindicated by use of Vyvanse. 9) Adrenal adenoma - MRI scheduled. Would like FMLA leave for appointments. Forms previously completed. FMLA - Would like 4 10h days per week as needed for panic/anxiety. 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 Supplies and referrals ordered. Sulma Bartholomew APRN.CNM Generalized anxiety disorder GERD (gastroesophageal reflux disease) Hepatitis C 2017 2018 cured after medication course. High grade squamous intraepithelial cervical dysplasia History of suicide attempt 2015 cutting wrist Juvenile osteochondrosis of lower extremity, excluding foot 2005, resolved Migraine headache 05/26/2011 other Sever's Disease, 2006, resolved Other acne 01/27/2010 Pain in joint, site unspecified AC joint tear, 2006 Patient requested diagnostic testing 04/18/2012 04/18/2012 Patient desires early screening in with sequential testing. Poor support system complicating 04/18/2012 04/18/2012The father of the baby is aware that she is , but does not wish to be involved. Patient states her parents are very supportive. Patient is tearful for some of this visit today due to the father of the baby. She states he has put pressure on her in the past to have an , butshe does not wish to do that. Patient was given a brochure on the care center and WIC. depression PTSD (post-traumatic stress disorder) Rosacea 01/27/2010 Rubella non-immune status 04/22/2012 Skin cancer Teen 04/22/2012 July 04, 2012 Flu vaccine given Telangiectasia 01/27/2010 Tobacco use disorder Current Outpatient Medications on File Prior to Visit Medication Sig lisdexamfetamine (VYVANSE) 40 mg capsule Take 1 capsule by mouth once daily for 30 days. scopolamine (TRANSDERM-SCOP) patch 1.5 mg/72 hr (delivers 1 mg over 3 days) Apply 1 Patch as directed every 72 hours. (Patient not taking: Reported on 11/19/2023) tiZANidine (ZANAFLEX) 4 mg tablet Take 1/2 - 1 tablet oral Three times a day , PRN as needed for 30Days meloxicam (MOBIC) 15 mg tablet TAKE 1 TABLET BY MOUTH EVERY DAY WITH FOOD NEEDED FOR 30 DAYS (Patient not taking: Reported on 11/15/2023) cloNIDine HCl (CATAPRES) 0.1 mg tablet Take 1 tablet by mouth once daily as needed (Anxiety). metFORMIN ER (GLUCOPHAGE XR) 500 mg 24 hr tablet Take 1 tablet by mouth daily with breakfast. SUMAtriptan (IMITREX) 100 mg tablet Take 1 tablet (100 mg) by mouth as needed. TAKE ONE (1) TABLET EVERY 2 HOURS WITH A MAXIMUM DOSE OF 200 MG PER DAY NEEDED FOR HEADACHE levonorgestrel (LILETTA) 20.4 mcg/24 hrs (8 yrs) 52 mg IUD 1 Each by INTRAUTERINE route as directed. albuterol HFA (PROAIR HFA) 90 mcg/actuation inhaler Inhale 2 Puffs as instructed every 4 hours as needed for wheezing/shortness of breath. Used for seasonal allergies (Patient not taking: Reported on11/15/2023) No current facility-administered medications on file prior to visit. Social History Tobacco Use Smoking status: Former Packs/day: 1.00 Years: 9.00 Additional pack years: 0.00 Total pack years: 9.00 Types: Cigarettes Smokeless tobacco: Current Tobacco comments: Vapes Vaping Use Vaping Use: current everyday user Substances: Nicotine Devices: Pre-filled or refillable cartridge Substance Use Topics Alcohol use: Not Currently Drug use: Yes Types: Heroin, Marijuana Comment: Patient states I have used multiple drugs in the past Video Exam (Examination performed via Video enabled technology) General appearance: Alert, oriented, pleasant, in NAD :Yes Ill appearing :No Lethargic appearing :No Respiratory distress :No ASSESSMENT/PLAN: 1. ADHD (attention deficit hyperactivity disorder), inattentive type - ICD9: 314.00, ICD10: F90.0 (primary diagnosis) Scheduling with psych Medication refilled. Stimulant does not seem to increase her anxiety - LISDEXAMFETAMINE 40 MG CAPSULE 2. Panic disorder - ICD9: 300.01, ICD10: F41.0 Start SSRI Will up-titrate more aggressively due to symptom severity. Patient would like a short term medication for more immediate relief of symptoms as well - Reports that she will end up in the ER everyday unless she has something that will ease her symptoms while the SSRI takes effect.. Had side effects with Seroquel, Hydroxyzine and Neurontin. Discussed rules regarding benzo prescribing. Will need to wait for psych input for medications in these classes. Can try Abilify for more immediate relief of symptoms - CITALOPRAM 10 MG TABLET - ARIPIPRAZOLE 2 MG TABLET 3. Migraine with aura, not intractable, without status migrainosus - ICD9: 346.00, ICD10: G43.109 Sees neurology 4. History of hepatitis C - ICD9: V12.09, ICD10: Z86.19 Repeat RNA ordered 5. Anxiety with depression - ICD9: 300.4, ICD10: F41.8 Start SSRI Start Abilify F/u 2 weeks, sooner for any new or worsening symptoms To ER for SI - CITALOPRAM 10 MG TABLET 6. DDD (degenerative disc disease), lumbar - ICD9: 722.52, ICD10: M51.36 Stable 7. History of abnormal cervical Pap smear - ICD9: V13.29, ICD10: Z87.42 Follow with gynecology. Keaton Tracy MD During this patient visit I have spent approximately 35 minutes out of 55 in counseling regarding treatment options and medications and coordinating care. Additional 20 minutes spent in chart review and form completion. Keaton Tracy MD documented in this encounterBu[facility]04-30-[facility]24 Emergency department Note * Matt Lalita Morgan, - 11/20/2023 7:20 PM EDT HPI Chief Complaint Patient presents with Panic Attack Patient to ED via wheelchair with c/o I've been having a 48 hour panic attack-- worse since 1000 today with chest pressure and shortness of breath. Patient reports recent stressors such as handlingaffairs for her mother that in March as well as financial concerns. Tearful upon arrival. Taking Rx Clonidine without relief. Denies suicidal or homicidal ideation. Patient presents to the emergency department secondary to symptoms related to heightened anxiety. Patient has a history of anxiety and depression. She used to be under the care of psychiatry. She states that she still takes Vyvanse for ADHD which is prescribed through her private physician and she has not needed to see a psychiatrist in 5 or 6 years. The patient states that over the past year shehas had quite a bit of stress including a new daughter that is about to turn 1 years of age, various health concerns, and the of her mother. She has an upcoming appointment to see her PCP in 2 days about increasing stress however she felt that this evening her symptoms continued prompting theemergency room visit. She denies suicidal or homicidal thoughts. History provided by: Patient aerial photograph interpreter used: No [place] Coma Scale Score: 15 Patient History Past Medical History: Diagnosis Date Abnormal Pap smear of cervix 2020 ADHD (attention deficit hyperactivity disorder) Anxiety Cancer of skin of scalp Chronic back pain Depression HPV in female Kidney stones Spina bifida (Multi) 2014 Spinal stenosis Urinary tract infection 08/2023 Past Surgical History: Procedure Laterality Date CERVICAL BIOPSY W/ LOOP ELECTRODE EXCISION WISDOM TOOTH EXTRACTION Family History Problem Relation Name Age of Onset Hypertension Mother Verna Hensley Cancer Mother Verna Hensley Heart disease Mother Verna Hensley Hypertension Father Cristhian Hensley Kidney disease Father Cristhian Hensley Diabetes Father Cristhian Hensley Heart disease Father Cristhian Hensley Other (skin scalp cancer) Sister Heart disease Maternal Grandfather Ruddy Sarkar Social History Tobacco Use Smoking status: Former Current packs/day: 0.00 Average packs/day: 1 pack/day for 4.0 years (4.0 ttl pk-yrs) Types: Cigarettes Start date: 12/21/2012 Quit date: 11/09/2016 Years since quittin.0 Smokeless tobacco: Current Vaping Use Vaping status: Every Day Substances: Nicotine Substance Use Topics Alcohol use: Never Drug use: Never Physical Exam ED Triage Vitals [11/20/231924] Temperature Heart Rate Respirations BP 37.2 C (99 F) (!) 110 (!) 22 151/80 Pulse Ox Temp Source Heart Rate Source Patient Position 100 % Temporal Monitor Lying BP Location FiO2 (%) Left arm -- Physical Exam Vitals and nursing note reviewed. Constitutional: General: She is not in acute distress. Appearance: She is normal weight. She is not ill-appearing, toxic-appearing or diaphoretic. Comments: Tearful and crying. Slightly anxious. Provides full history. Not confused. HENT: Head: Normocephalic and atraumatic. Nose: Nose normal. No rhinorrhea. Neck: Comments: Trachea is midline Cardiovascular: Rate and Rhythm: Normal rate and regular rhythm. Heart sounds: No murmur heard. Pulmonary: Effort: Pulmonary effort is normal. Breath sounds: Normal breath sounds. No wheezing. Musculoskeletal: General: Normal range of motion. Cervical back: Normal range of motion. Skin: General: Skin is warm and dry. Findings: No rash. Neurological: General: No focal deficit present. Mental Status: She is alert and oriented to person, place, and time. Mental status is at baseline. Psychiatric: Thought Content: Thought content normal. Judgment: Judgment normal. Comments: Mildly anxious as described above. Not manic. Denies suicidal or homicidal thoughts. ED Course & MDM Diagnoses as of 11/20/231958 Anxiety reaction Medical Decision Making Twelve-lead EKG was interpreted by myself and this was noted to contribute directly to patient care. Study reveals normal sinus rhythm at 83 bpm, normal axis, early R wave progression, right bundle branch block, no acute ischemic changes. Patient's EKG was compared to a prior study on December 17, 2000 and at that time the patient was noted to have a right bundle branch block as well. There is no new changes today. At this point in time I feel the patient's symptoms are related to heightened anxiety with a stresscomponent. Does not appear to be consistent with major depression but more so normal debridement. Ifeel the patient is appropriate for discharge and close outpatient follow-up. Again she is seeing her private physician in less than 48 hours. She will be given a dose of Valium here and a prescription for 2 tablets to bridge the gap between now and her PCP appointment. I checked an [place] automated prescription reporting system report for the patient and it appears she did receive a prescription for [place] within the past month that was completed and she receives regular Vyvanse prescriptions by her PCP but nothing else. I asked her about any history of addiction issues and she states that manyyears ago she was a polysubstance abuser but has not used any sort of illicit substances in quite some time. I do feel treatment with a very short course of benzodiazepines, a total of 3 tablets, would not be an appropriate. Patient was instructed to follow-up with her PCP as scheduled and she was given referral to psychiatry on-call. Specifically instructed to return to anytime if worse. Procedure Procedures Matt Morgan DO 11/20/232001 Matt Morgan DO 11/20/23 2007 documented in this [facility] Work Phone: 1(265) 612-950304-30-2024 Physician Emergency department Note* Matt Morgan DO - 11/20/2023 7:20 PM EDT HPI Chief Complaint Patient presents with Panic Attack Patient to ED via wheelchair with c/o I've been having a 48 hour panic attack-- worse since 1000 today with chest pressure and shortness of breath. Patient reports recent stressors such as handlingaffairs for her mother that in March as well as financial concerns. Tearful upon arrival. Taking Rx Clonidine without relief. Denies suicidal or homicidal ideation. Patient presents to the emergency department secondary to symptoms related to heightened anxiety. Patient has a history of anxiety and depression. She used to be under the care of psychiatry. She states that she still takes Vyvanse for ADHD which is prescribed through her private physician and she has not needed to see a psychiatrist in 5 or 6 years. The patient states that over the past year shehas had quite a bit of stress including a new daughter that is about to turn 1 years of age, various health concerns, and the of her mother. She has an upcoming appointment to see her PCP in 2 days about increasing stress however she felt that this evening her symptoms continued prompting theemergency room visit. She denies suicidal or homicidal thoughts. History provided by: Patient aerial photograph interpreter used: No [place] Coma Scale Score: 15 Patient History Past Medical History: Diagnosis Date Abnormal Pap smear of cervix 2020 ADHD (attention deficit hyperactivity disorder) Anxiety Cancer of skin of scalp Chronic back pain Depression HPV in female Kidney stones Spina bifida (Multi) 2013 Spinal stenosis Urinary tract infection 08/2023 Past Surgical History: Procedure Laterality Date CERVICAL BIOPSY W/ LOOP ELECTRODE EXCISION WISDOM TOOTH EXTRACTION Family History Problem Relation Name Age of Onset Hypertension Mother Verna Fortune Cancer Mother Verna Fortune Heart disease Mother Verna Fortune Hypertension Father Cristhian Hensley Kidney disease Father Cristhian Hensley Diabetes Father Cristhian Fortune Heart disease Father Cristhian Hensley Other (skin scalp cancer) Sister Heart disease Maternal Grandfather Ruddy Sarkar Social History Tobacco Use Smoking status: Former Current packs/day: 0.00 Average packs/day: 1 pack/day for 4.0 years (4.0 ttl pk-yrs) Types: Cigarettes Start date: 12/21/2012 Quit date: 11/09/2016 Years since quittin.0 Smokeless tobacco: Current Vaping Use Vaping status: Every Day Substances: Nicotine Substance Use Topics Alcohol use: Never Drug use: Never Physical Exam ED Triage Vitals [11/20/231924] Temperature Heart Rate Respirations BP 37.2 C (99 F) (!) 110 (!) 22 151/80 Pulse Ox Temp Source Heart Rate Source Patient Position 100 % Temporal Monitor Lying BP Location FiO2 (%) Left arm -- Physical Exam Vitals and nursing note reviewed. Constitutional: General: She is not in acute distress. Appearance: She is normal weight. She is not ill-appearing, toxic-appearing or diaphoretic. Comments: Tearful and crying. Slightly anxious. Provides full history. Not confused. HENT: Head: Normocephalic and atraumatic. Nose: Nose normal. No rhinorrhea. Neck: Comments: Trachea is midline Cardiovascular: Rate and Rhythm: Normal rate and regular rhythm. Heart sounds: No murmur heard. Pulmonary: Effort: Pulmonary effort is normal. Breath sounds: Normal breath sounds. No wheezing. Musculoskeletal: General: Normal range of motion. Cervical back: Normal range of motion. Skin: General: Skin is warm and dry. Findings: No rash. Neurological: General: No focal deficit present. Mental Status: She is alert and oriented to person, place, and time. Mental status is at baseline. Psychiatric: Thought Content: Thought content normal. Judgment: Judgment normal. Comments: Mildly anxious as described above. Not manic. Denies suicidal or homicidal thoughts. ED Course & MDM Diagnoses as of 11/20/231958 Anxiety reaction Medical Decision Making Twelve-lead EKG was interpreted by myself and this was noted to contribute directly to patient care. Study reveals normal sinus rhythm at 83 bpm, normal axis, early R wave progression, right bundle branch block, no acute ischemic changes. Patient's EKG was compared to a prior study on December 17, 2000 and at that time the patient was noted to have a right bundle branch block as well. There is no new changes today. At this point in time I feel the patient's symptoms are related to heightened anxiety with a stresscomponent. Does not appear to be consistent with major depression but more so normal debridement. Ifeel the patient is appropriate for discharge and close outpatient follow-up. Again she is seeing her private physician in less than 48 hours. She will be given a dose of Valium here and a prescription for 2 tablets to bridge the gap between now and her PCP appointment. I checked an [place] [employer] prescription reporting system report for the patient and it appears she did receive a prescription for [place] within the past month that was completed and she receives regular Vyvanse prescriptions by her PCP but nothing else. I asked her about any history of addiction issues and she states that manyyears ago she was a polysubstance abuser but has not used any sort of illicit substances in quite some time. I do feel treatment with a very short course of benzodiazepines, a total of 3 tablets, would not be an appropriate. Patient was instructed to follow-up with her PCP as scheduled and she was given referral to psychiatry on-call. Specifically instructed to return to anytime if worse. Procedure Procedures Matt Morgan DO 11/20/232001 Matt Morgan DO 11/20/232006 [facility] Work Phone: 1(388) 648-567904-29-2024 History of Present illness Narrative* Stephy Briones APRN.ANISHA - 11/19/2023 5:54 PM EDT She came in with complaints of migraine. Patient says is a 9 out of 10. Patient says she has already had 2 Imitrex's with no relief. Is unable to even tolerate light at this time. Patient is being referred to the emergency room to help with the migraine pain. Patient was instructed to reach out to her providers that are dealing with her migraines. [facility] History of Present illness Narrative* Chey Ladd APRN.CNP - 11/15/2023 5:40 PM EDT This note was created using [employer]. Subjective Fadumo Hensley is a 28 year old female. 28 year old female with PMH migraine, asthma, ADD presents for migraine. Acute onset this noon. ' felt a little twinge this morning Pain locates behind right ear, to right religious to eye +seeing circles (which is normal) States this is her usual migraine presentation Denies N/V/D Denies fever or chills. Denies unilateral weakness. Denies worst headache of life, during coitus, thunder clap. She took her home Imitrex 2 hours. Denies relief of symptoms. Think I took it too late Requesting work note. The history is provided by the patient. No educational sign language interpreter was used. Headache This is a recurrent problem. The current episode started 6 to 12 hours ago. The problem occurs constantly. The problem has been gradually worsening. The headache is associated with an unknown factor.Pain location: right sided. The quality of the pain is described as sharp and throbbing. The pain is at a severity of 8/10. The pain does not radiate. Pertinent negatives include no anorexia, no fever, no malaise/fatigue, no chest pressure, no near-syncope, no orthopnea, no palpitations, no syncope, no shortness of breath, no nausea and no vomiting. Treatments tried: Imitrex. The treatment provided no relief. 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 Supplies and referrals ordered. Sulma Bartholomew APRN.JULISSA Generalized anxiety disorder GERD (gastroesophageal reflux disease) Hepatitis C 2017 2018 cured after medication course. High grade squamous intraepithelial cervical dysplasia History of suicide attempt 2014 cutting wrist Juvenile osteochondrosis of lower extremity, excluding foot 2004, resolved Migraine headache 05/26/2011 other Sever's Disease, 2006, resolved Other acne 01/27/2010 Pain in joint, site unspecified AC joint tear, 2005 Patient requested diagnostic testing 04/18/2012 04/18/2012 Patient desires early screening in with sequential testing. Poor support system complicating 04/18/2012 04/18/2012The father of the baby is aware that she is , but does not wish to be involved. Patient states her parents are very supportive. Patient is tearful for some of this visit today due to the father of the baby. She states he has put pressure on her in the past to have an , butshe does not wish to do that. Patient was given a brochure on the care center and WIC. depression PTSD (post-traumatic stress disorder) Rosacea 01/27/2010 Rubella non-immune status 04/22/2012 Skin cancer Teen 04/22/2012 July 04, 2012 Flu vaccine given Telangiectasia 01/27/2010 Tobacco use disorder PAST SURGICAL HISTORY Procedure Laterality Date CERVIX UTERI CONIZA LP ELCTRO EXCI 05/11/2023 at [facility]-Dr. Millan PAST SURGICAL HISTORY OF 01/01/2010 Removal of 4 [place]re[place] Teeth PAST SURGICAL HISTORY OF basal cell carcinoma removed from scalp ALLERGIES Zyrtec [Cetirizine Hcl] MEDICATIONS lisdexamfetamine (VYVANSE) 40 mg capsule^Take 1 capsule by mouth once daily for 30 days.^Disp: 30 capsule^Rfl: 0 scopolamine (TRANSDERM-SCOP) patch 1.5 mg/72 hr (delivers 1 mg over 3 days)^Apply 1 Patch as directed every 72 hours.^Disp: 4 Patch^Rfl: 0 tiZANidine (ZANAFLEX) 4 mg tablet^Take 1/2 - 1 tablet oral Three times a day , PRN as needed for 30Days^Disp: ^Rfl: cloNIDine HCl (CATAPRES) 0.1 mg tablet^Take 1 tablet by mouth once daily as needed (Anxiety).^Disp:90 tablet^Rfl: 0 metFORMIN ER (GLUCOPHAGE XR) 500 mg 24 hr tablet^Take 1 tablet by mouth daily with breakfast.^Disp:90 tablet^Rfl: 0 SUMAtriptan (IMITREX) 100 mg tablet^Take 1 tablet (100 mg) by mouth as needed. TAKE ONE (1) TABLET EVERY 2 HOURS WITH A MAXIMUM DOSE OF 200 MG PER DAY NEEDED FOR HEADACHE^Disp: 9 tablet^Rfl: 2 levonorgestrel (LILETTA) 20.4 mcg/24 hrs (8 yrs) 52 mg IUD^1 Each by INTRAUTERINE route as directed.^Disp: 1 Each^Rfl: 0 meloxicam (MOBIC) 15 mg tablet^TAKE 1 TABLET BY MOUTH EVERY DAY WITH FOOD NEEDED FOR 30 DAYS^Disp: ^Rfl: (Patient not taking: Reported on 11/15/2023) albuterol HFA (PROAIR HFA) 90 mcg/actuation inhaler^Inhale 2 Puffs as instructed every 4 hours as needed for wheezing/shortness of breath. Used for seasonal allergies^Disp: 8.5 g^Rfl: 3 (Patient not taking: Reported on 11/15/2023) FAMILY HISTORY Problem Relation Age of Onset Skin Cancer Mother Hypertension Mother Heart Failure Mother Liver Cancer Mother 66 Heart Father TRIPLE BYPASS SURGERY Hypertension Father Diabetes Father Diabetes Sister No Known Problems Sister No Known Problems Sister No Known Problems Brother No Known Problems Brother No Known Problems Brother Heart Maternal Grandmother from heart problems Heart Maternal Grandfather from heart problems Cancer Maternal Grandfather lung Hypertension Maternal Grandfather No Known Problems Daughter Social History Tobacco Use Smoking status: Former Packs/day: 1.00 Years: 9.00 Additional pack years: 0.00 Total pack years: 9.00 Types: Cigarettes Smokeless tobacco: Current Tobacco comments: Vapes Vaping Use Vaping Use: current everyday user Substances: Nicotine Devices: Pre-filled or refillable cartridge Substance Use Topics Alcohol use: Not Currently Drug use: Yes Types: Heroin, Marijuana Comment: Patient states I have used multiple drugs in the past Review of Systems Constitutional: Negative for activity change, appetite change, fever and malaise/fatigue. Eyes: Positive for photophobia and visual disturbance. Negative for pain, redness and itching. Respiratory: Negative for apnea, chest tightness and shortness of breath. Cardiovascular: Negative for chest pain, palpitations, orthopnea, syncope and near-syncope. Gastrointestinal: Negative for abdominal pain, anorexia, nausea and vomiting. Musculoskeletal: Negative for arthralgias, back pain and gait problem. Skin: Negative for color change and pallor. Allergic/Immunologic: Negative for environmental allergies, food allergies and immunocompromised state. Neurological: Positive for headaches. Hematological: Negative for adenopathy. Does not bruise/bleed easily. Psychiatric/Behavioral: Negative for agitation and behavioral problems. Objective LMP 09/17/2023 (Approximate) BP 106/71 Pulse 82 Temp 36.8 C (98.2 F) Resp 18 Wt 78 kg (171 lb 15.3 oz) LMP 11/15/2023 (Exact Date) SpO2 99% No BMI 27.75 kg/m Physical Exam Vitals and nursing note reviewed. Constitutional: General: She is not in acute distress. Appearance: Normal appearance. She is normal weight. She is not ill-appearing, toxic-appearing or diaphoretic. HENT: Head: Normocephalic and atraumatic. Right Ear: Ear canal and external ear normal. Left Ear: Ear canal and external ear normal. Nose: Nose normal. No congestion or rhinorrhea. Mouth/Throat: Mouth: Mucous membranes are moist. Pharynx: No oropharyngeal exudate or posterior oropharyngeal erythema. Eyes: General: Right eye: No discharge. Left eye: No discharge. Extraocular Movements: Extraocular movements intact. Conjunctiva/sclera: Conjunctivae normal. Pupils: Pupils are equal, round, and reactive to light. Cardiovascular: Rate and Rhythm: Normal rate and regular rhythm. Pulses: Normal pulses. Heart sounds: Normal heart sounds. No murmur heard. No friction rub. Pulmonary: Effort: Pulmonary effort is normal. No respiratory distress. Breath sounds: Normal breath sounds. No stridor. No wheezing, rhonchi or rales. Chest: Chest wall: No tenderness. Abdominal: General: Abdomen is flat. There is no distension. Palpations: Abdomen is soft. There is no mass. Tenderness: There is no abdominal tenderness. There is no right CVA tenderness, left CVA tenderness, guarding or rebound. Hernia: No hernia is present. Musculoskeletal: General: No swelling, tenderness, deformity or signs of injury. Normal range of motion. Cervical back: Normal range of motion and neck supple. No rigidity. Right lower leg: No edema. Left lower leg: No edema. Lymphadenopathy: Cervical: No cervical adenopathy. Skin: General: Skin is warm and dry. Capillary Refill: Capillary refill takes less than 2 seconds. Coloration: Skin is not jaundiced or pale. Findings: No bruising, erythema, lesion or rash. Neurological: General: No focal deficit present. Mental Status: She is alert and oriented to person, place, and time. Cranial Nerves: No cranial nerve deficit. Sensory: No sensory deficit. Motor: No weakness. Coordination: Coordination normal. Gait: Gait normal. Psychiatric: Mood and Affect: Mood normal. Behavior: Behavior normal. Thought Content: Thought content normal. Judgment: Judgment normal. Assessment and Plan ASSESSMENT/PLAN: 1. Migraine headaches - ICD9: 346.90, ICD10: G43.909 History of same Denies red flags Hemodynamically stable Neuro grossly intact - KETOROLAC 60 MG/2 ML INTRAMUSCULAR SOLUTION-provided here in department Increase fluids Discussed red flags Follow up with PCP Work note Chey Ladd APRN.QUANTITATIVE ANALYST MARKETING [facility] Note* Op Note - Dev Narayan MD - 11/06/2023 7:50 AM EDT Lithotripsy Extracorporeal Shock Wave (R) Operative Note Date: 11/06/2023 OR Location: [facility] OR Name: Fadumo Hensley : 1995, Age: 28 y.o., , Sex: female Diagnosis Pre-op Diagnosis * Kidney stone [N20.0] Post-op Diagnosis * Kidney stone [N20.0] Procedures Lithotripsy Extracorporeal Shock Wave 33822 - [place] LITHOTRIPSY XTRCORP SHOCK WAVE Surgeons * Dev Narayan - Primary Resident/Fellow/Other Air Crew Member: Surgeons and Role: * No surgeons found with a matching role * Procedure Summary Anesthesia: General ASA: II Anesthesia Staff: Anesthesiologist: Andrew Atkins DO Estimated Blood Loss: 0mL Intra-op Medications: Administrations occurring from 0730 to 0800 on 11/06/23: Medication Name Total Dose midazolam (Versed) injection 2 mg 2 mg Anesthesia Record Intraprocedure I/O Totals Intake lactated Ringer's infusion 800.00 mL Total Intake 800 mL Specimen: No specimens collected Staff: Bedspring Assembler: Iesha Mcbride RN Indications: Fadumo Hensley is an 28 y.o. female who is having surgery for Kidney stone [N20.0]. The patient was seen in the preoperative area. The risks, benefits, complications, treatment options, non-operative alternatives, expected recovery and outcomes were discussed with the patient. The possibilities of reaction to medication, pulmonary aspiration, injury to surrounding structures, bleeding, recurrent infection, the need for additional procedures, failure to diagnose a condition, and creating a complication requiring transfusion or operation were discussed with the patient. The patient concurred with the proposed plan, giving informed consent. The site of surgery was properly noted/marked if necessary per policy. The patient has been actively warmed in preoperative area. Surgeon: Dev Narayan MD Anesthetic: General. Pre-Op Diagnosis: Right Renal stone. Post-Op Diagnosis: Same. Operation: RIGHTextracorporeal shock wave lithotripsy. ESTIMATED BLOOD LOSS: Minimal. COMPLICATIONS: None. INDICATIONS AND CONSENT: Patient presents for Tx of known stone... After the risks, benefits, alternatives, and indications for the procedure were explained to the patient, consented. PROCEDURE: The patient was brought to the operating room and placed on the table in supine position. After adequate anesthesia was obtained, fluoroscopy was used to visualize the stone. A total of 2500 shocks were delivered. The patient tolerated the procedure well. There were no complications. Attending Attestation: I was present for the entire procedure. Dev Narayan [facility] Work Phone: 1(619) 122-231604-16-2024 Miscellaneous Notes* Op Note - Dev Narayan MD - 11/06/2023 7:50 AM EDT Lithotripsy Extracorporeal Shock Wave (R) Operative Note Date: 11/06/2023 OR Location: [facility] OR Name: Fadumo Hensley, : 1995, Age: 28 y.o., , Sex: female Diagnosis Pre-op Diagnosis * Kidney stone [N20.0] Post-op Diagnosis * Kidney stone [N20.0] Procedures Lithotripsy Extracorporeal Shock Wave 25990 - [place] LITHOTRIPSY XTRCORP SHOCK WAVE Surgeons * Dev Narayan - Primary Resident/Fellow/Other Air Crew Member: Surgeons and Role: * No surgeons found with a matching role * Procedure Summary Anesthesia: General ASA: II Anesthesia Staff: Anesthesiologist: Andrew Atkins DO Estimated Blood Loss: 0mL Intra-op Medications: Administrations occurring from 0730 to 0800 on 11/06/23: Medication Name Total Dose midazolam (Versed) injection 2 mg 2 mg Anesthesia Record Intraprocedure I/O Totals Intake lactated Ringer's infusion 800.00 mL Total Intake 800 mL Specimen: No specimens collected Staff: Bedspring Assembler: Iesha Mcbride RN Indications: Fadumo Hensley is an 28 y.o. female who is having surgery for Kidney stone [N20.0]. The patient was seen in the preoperative area. The risks, benefits, complications, treatment options, non-operative alternatives, expected recovery and outcomes were discussed with the patient. The possibilities of reaction to medication, pulmonary aspiration, injury to surrounding structures, bleeding, recurrent infection, the need for additional procedures, failure to diagnose a condition, and creating a complication requiring transfusion or operation were discussed with the patient. The patient concurred with the proposed plan, giving informed consent. The site of surgery was properly noted/marked if necessary per policy. The patient has been actively warmed in preoperative area. Surgeon: Dev Narayan MD Anesthetic: General. Pre-Op Diagnosis: Right Renal stone. Post-Op Diagnosis: Same. Operation: RIGHTextracorporeal shock wave lithotripsy. ESTIMATED BLOOD LOSS: Minimal. COMPLICATIONS: None. INDICATIONS AND CONSENT: Patient presents for Tx of known stone... After the risks, benefits, alternatives, and indications for the procedure were explained to the patient, consented. PROCEDURE: The patient was brought to the operating room and placed on the table in supine position. After adequate anesthesia was obtained, fluoroscopy was used to visualize the stone. A total of 2500 shocks were delivered. The patient tolerated the procedure well. There were no complications. Attending Attestation: I was present for the entire procedure. Dev Narayan * Preprocedure Instructions - Reina Ramirez RN - 11/05/2023 11:44 AM EDT No outpatient medications have been marked as taking for the 11/06/23 encounter (Hospital Encounter). NPO Instructions: Nothing to eat or drink after midnight Additional Instructions: Will need public transit trolley driver home, arrive on 2nd floor at hospital at 6 am on SundayNovember 05 [facility] Work Phone: [phone]) 851-761004-16-2024 History and physical note* Dev Narayan MD - 11/06/2023 7:28 AM EDT History Of Present Illness Fadumo Hensley is a 28 y.o. female presenting with right ESWL. Past Medical History Past Medical History: Diagnosis Date Abnormal Pap smear of cervix 2021 ADHD (attention deficit hyperactivity disorder) Anxiety Cancer of skin of scalp Chronic back pain Depression HPV in female Kidney stones Spina bifida (Multi) 2014 Urinary tract infection 08/2023 Surgical History Past Surgical History: Procedure Laterality Date WISDOM TOOTH EXTRACTION Social History She reports that she quit smoking about 6 years ago. Her smoking use included cigarettes. She started smoking about 10 years ago. She has a 4 pack-year smoking history. She uses smokeless tobacco. She reports that she does not drink alcohol and does not use drugs. Family History Family History Problem Relation Name Age of Onset Hypertension Mother Verna Hensley Cancer Mother Verna Hensley Heart disease Mother Verna Hensley Hypertension Father Cristhian Hensley Kidney disease Father Cristhian Hensley Diabetes Father Cristhian Hensley Heart disease Father Cristhian Hensley Other (skin scalp cancer) Sister Heart disease Maternal Grandfather Ruddy Mealvelia Allergies Cetirizine Review of Systems Constitutional: Negative for chills and fever. HENT: Negative. Eyes: Negative. Respiratory: Negative for cough and shortness of breath. Cardiovascular: Negative for chest pain and leg swelling. Gastrointestinal: Negative for nausea. Endocrine: Negative. Genitourinary: Negative for difficulty urinating. Negative except for documented in HPI Allergic/Immunologic: Negative. Neurological: Alert & oriented X 3 Hematological: Denies blood thinners Psychiatric/Behavioral: Negative. Physical Exam Vitals and nursing note reviewed. Pulmonary: Effort: Pulmonary effort is normal. Breath sounds: Normal breath sounds. Abdominal: Palpations: Abdomen is soft. Tenderness: There is no abdominal tenderness. Genitourinary: Comments: Kidneys non palpable bilaterally Bladder non palpable or tender Neurological: Mental Status: She is alert. Last Recorded Vitals Blood pressure 104/67, pulse 80, temperature 36.3 C (97.4 F), temperature source Temporal, resp. rate 16, height 1.7 m (5' 6.93), weight 79 kg (174 lb 2.6 oz), SpO2 99%. Assessment/Plan Principal Problem: Kidney stone Dev Narayan MD [facility] Work Phone: 1(145) 832-539504-16-2024 History and physical note* Dev Narayan MD - 11/06/2023 7:28 AM EDT History Of Present Illness Fadumo Hensley is a 28 y.o. female presenting with right ESWL. Past Medical History Past Medical History: Diagnosis Date Abnormal Pap smear of cervix 2020 ADHD (attention deficit hyperactivity disorder) Anxiety Cancer of skin of scalp Chronic back pain Depression HPV in female Kidney stones Spina bifida (Multi) 2014 Urinary tract infection 08/2023 Surgical History Past Surgical History: Procedure Laterality Date WISDOM TOOTH EXTRACTION Social History She reports that she quit smoking about 6 years ago. Her smoking use included cigarettes. She started smoking about 10 years ago. She has a 4 pack-year smoking history. She uses smokeless tobacco. She reports that she does not drink alcohol and does not use drugs. Family History Family History Problem Relation Name Age of Onset Hypertension Mother Verna Hensley Cancer Mother Verna Hensley Heart disease Mother Verna Hensley Hypertension Father Cristhian Hensley Kidney disease Father Cristhian Hensley Diabetes Father Cristhian Hensley Heart disease Father Cristhian Hensley Other (skin scalp cancer) Sister Heart disease Maternal Grandfather Ruddy Mealy Allergies Cetirizine Review of Systems Constitutional: Negative for chills and fever. HENT: Negative. Eyes: Negative. Respiratory: Negative for cough and shortness of breath. Cardiovascular: Negative for chest pain and leg swelling. Gastrointestinal: Negative for nausea. Endocrine: Negative. Genitourinary: Negative for difficulty urinating. Negative except for documented in HPI Allergic/Immunologic: Negative. Neurological: Alert & oriented X 3 Hematological: Denies blood thinners Psychiatric/Behavioral: Negative. Physical Exam Vitals and nursing note reviewed. Pulmonary: Effort: Pulmonary effort is normal. Breath sounds: Normal breath sounds. Abdominal: Palpations: Abdomen is soft. Tenderness: There is no abdominal tenderness. Genitourinary: Comments: Kidneys non palpable bilaterally Bladder non palpable or tender Neurological: Mental Status: She is alert. Last Recorded Vitals Blood pressure 104/67, pulse 80, temperature 36.3 C (97.4 F), temperature source Temporal, resp. rate 16, height 1.7 m (5' 6.93), weight 79 kg (174 lb 2.6 oz), SpO2 99%. Assessment/Plan Principal Problem: Kidney stone Dev Narayan MD documented in this [facility] Work Phone: 1(213) 928-975104-15-2024 Note* Preprocedure Instructions - Reina Ramirez RN - 11/05/2023 11:44 AM EDT No outpatient medications have been marked as taking for the 11/06/23 encounter (Hospital Encounter). NPO Instructions: Nothing to eat or drink after midnight Additional Instructions: Will need public transit trolley driver home, arrive on 2nd floor at hospital at 6 am on SundayNovember 05 [facility]04-01-[facility] Miscellaneous Notes* Telephone Encounter - Maribell Nicholas MA - 10/22/2023 1:15 PM EDT Items addressed in this encounter[facility] Maribell Nicholas MA October 22, 2023 1:16 PM 1:16 PM documented in this [facility]Bu[facility]03[facility] History of Present illness Narrative* Debby Taveras APRN.ANISHA - 10/12/2023 1:15 PM EDT I have communicated my name and active licensure. The patient's identity and physical location wereverified at the time of this visit. Either the patient or their legal artist representative has been informed of the risks and benefits of -- and alternatives to -- treatment through a remote evaluation andconsents to proceed with the evaluation remotely. Telemedicine Visit - Distance Health Virtual Visit Note Patient seen on [employer] Zoom Video Visit platform. Location of patient: [place] Keaton Tracy MD History of Present Illness Fadumo Hensley is a 28 year old year old female who presents for request of scopolamine patches; states she has used previously last use was ~7 years ago. States she is driving down to [place] tomorrow morning and then will be going on amusement rides; states she will be gone for a total of 1.5 weeks. Denies any other symptoms or concerns at this time. 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 Supplies and referrals ordered. Sulma Bartholomew APRN.JULISSA Generalized anxiety disorder GERD (gastroesophageal reflux disease) Hepatitis C 2017 2018 cured after medication course. High grade squamous intraepithelial cervical dysplasia History of suicide attempt 2014 cutting wrist Juvenile osteochondrosis of lower extremity, excluding foot 2004, resolved Migraine headache 05/26/2011 other Sever's Disease, 2006, resolved Other acne 01/27/2010 Pain in joint, site unspecified AC joint tear, 2005 Patient requested diagnostic testing 04/18/2012 04/18/2012 Patient desires early screening in with sequential testing. Poor support system complicating 04/18/2012 04/18/2012The father of the baby is aware that she is , but does not wish to be involved. Patient states her parents are very supportive. Patient is tearful for some of this visit today due to the father of the baby. She states he has put pressure on her in the past to have an , butshe does not wish to do that. Patient was given a brochure on the care center and WIC. depression PTSD (post-traumatic stress disorder) Rosacea 01/27/2010 Rubella non-immune status 04/22/2012 Skin cancer Teen 04/22/2012 July 04, 2012 Flu vaccine given Telangiectasia 01/27/2010 Tobacco use disorder PAST SURGICAL HISTORY Procedure Laterality Date CERVIX UTERI CONIZA LP ELCTRO EXCI 05/11/2023 at [facility]Dr. Millan PAST SURGICAL HISTORY OF 01/01/2010 Removal of 4 Mereta Teeth PAST SURGICAL HISTORY OF basal cell carcinoma removed from scalp FAMILY HISTORY Problem Relation Age of Onset Skin Cancer Mother Hypertension Mother Heart Failure Mother Liver Cancer Mother 66 Heart Father TRIPLE BYPASS SURGERY Hypertension Father Diabetes Father Diabetes Sister No Known Problems Sister No Known Problems Sister No Known Problems Brother No Known Problems Brother No Known Problems Brother Heart Maternal Grandmother from heart problems Heart Maternal Grandfather from heart problems Cancer Maternal Grandfather lung Hypertension Maternal Grandfather No Known Problems Daughter Social History Tobacco Use Smoking status: Former Packs/day: 1.00 Years: 9.00 Additional pack years: 0.00 Total pack years: 9.00 Types: Cigarettes Smokeless tobacco: Current Tobacco comments: Vapes Vaping Use Vaping Use: current everyday user Substances: Nicotine Devices: Pre-filled or refillable cartridge Substance Use Topics Alcohol use: Not Currently Drug use: Yes Types: Heroin, Marijuana Comment: Patient states I have used multiple drugs in the past Current Outpatient Medications Medication Sig tiZANidine (ZANAFLEX) 4 mg tablet Take 1/2 - 1 tablet oral Three times a day , PRN as needed for 30Days meloxicam (MOBIC) 15 mg tablet TAKE 1 TABLET BY MOUTH EVERY DAY WITH FOOD NEEDED FOR 30 DAYS cloNIDine HCl (CATAPRES) 0.1 mg tablet Take 1 tablet by mouth once daily as needed (Anxiety). lisdexamfetamine (VYVANSE) 40 mg capsule Take 1 capsule by mouth once daily for 30 days. metFORMIN ER (GLUCOPHAGE XR) 500 mg 24 hr tablet Take 1 tablet by mouth daily with breakfast. SUMAtriptan (IMITREX) 100 mg tablet Take 1 tablet (100 mg) by mouth as needed. TAKE ONE (1) TABLET EVERY 2 HOURS WITH A MAXIMUM DOSE OF 200 MG PER DAY NEEDED FOR HEADACHE levonorgestrel (LILETTA) 20.4 mcg/24 hrs (8 yrs) 52 mg IUD 1 Each by INTRAUTERINE route as directed. albuterol HFA (PROAIR HFA) 90 mcg/actuation inhaler Inhale 2 Puffs as instructed every 4 hours as needed for wheezing/shortness of breath. Used for seasonal allergies No current facility-administered medications for this visit. ALLERGIES Allergen Reactions Zyrtec [Cetirizine * Intolerance tremors Video Exam (Examination performed via Video enabled technology) General appearance: Alert, oriented, pleasant, in NAD :Yes Ill appearing :No Lethargic appearing :No Respiratory distress :No ASSESSMENT/PLAN: 1. Motion sickness, initial encounter - ICD9: 994.6, ICD10: T75.3XXA - SCOPOLAMINE 1 MG OVER 3 DAYS TRANSDERMAL PATCH - Patient has previously tolerated patches - May also try Dramamine if needed - Discussed medication dosage, usage, goals of therapy, and side effects. - Red flags discussed for need for in person care - All questions answered Debby Taveras APRN.ANISHA If you let us know who your primary care provider is, we will send them a notification of today's visit through our electronic medical records system. Since not all providers have access to our notifications, we strongly encourage you to share the following record of today's visit with your primarycare provider at your next visit. This will help in providing you the best care. If you do not have an established Primary Care physician and would like to continue care with a [facility] Virtual Primary Care physician, please ask your provider to place a Establish PrimaryCare order. Use [employer] to manage your care, wherever you are, 12/02, on your mobile device or computer. [employer] connects you to [employer] so you can access all your health information in one place and also schedule and request virtual appointments with primary care providers. documented in this encounterBu[facility]rus [facility]03-19-2024 Miscellaneous Notes* Telephone Encounter - Maribell Nicholas MA - 10/09/2023 9:55 AM EDT Completed forms sent to scanning Items addressed in this encounter: MyChart Encounter Fax/Forms Maribell Nicholas MA October 09, 2023 9:55 AM 9:55 AM * Telephone Encounter - Keaton Tracy MD - 10/09/2023 9:19 AM EDT Paperwork completed and returned to office. Keaton Tracy MD * Telephone Encounter - Maribell Nicholas MA - 10/02/2023 2:26 PM EDT Items addressed in this encounter: MyChart Encounter Maribell Nicholas MA October 02, 2023 2:26 PM 2:26 PM documented in this encounterBucyrus [facility]03-19-2024 History of Present illness Narrative* Lashon Saba PA-C - 10/09/2023 8:07 AM EDT * Lashon Saba PA-C - 10/09/2023 8:07 AM EDT documented in this encounterBucyrus [facility]03-14-2024 History of Present illness Narrative* Aliyah Guaman CT - 10/04/2023 8:40 AM EDT Radiology Service Progress Note DATE OF SERVICE: October 04, 2023 TIME: 9:10 AM PATIENT IDENTITY VERIFICATION COMPLETED USING TWO (2) STANDARD IDENTIFIERS: Name and Date of confirmed by patient verbally and Name and Date of confirmed by identification band. FALL SCREENING: Has the patient had 2 falls in the last year or 1 fall with injury or currently using an Ambulatory Assistive Device (Walker, Cane, Wheelchair, Crutches, etc.)? No PATIENT GENDER DATA: Female. status: : No status: NO. PATIENT RELEVANT IMPLANT DATA REVIEWED: Yes PATIENT PRESENTS WITH AN IMPLANTABLE OR ATTACHED SOCIAL AND POLITICAL STUDIES PROFESSOR: No ALLERGIES: CONTRAST ALReviewed and unchangedLERGY: NO. EXAM: MRI - CONTRAST TYPE: GROUP II PERIPHERAL IV DATA: Ambulatory: A peripheral IV was started in the Left antecubital site with a Angio cath: 22 gauge. RADIOLOGY DEPARTMENT: MR; Exam(s) Completed: Body: Adrenal Head: Sagittal Sinus MRV SIGNATURE: ZHOU Hearn PATIENT NAME: Fadumo Hensley DATE: October 04, 2023 TIME: 9:10 AM documented in this encounterBucyrus [facility] Hospital03-12-2024 Miscellaneous Notes* Telephone Encounter - Maribell Nicholas MA - 10/02/2023 10:13 AM EDT Completed forms faxed and sent to [facility]. Items addressed in this encounter: Fax/Forms Maribell Nicholas MA October 02, 2023 10:14 AM 10:14 AM * Telephone Encounter - Maribell Nicholas MA - 09/26/2023 9:42 AM EST Type of form: FMLA Form received via walk in When form is completed, Fax form to [phone] Form has been faxed to Dr. Tracy for completion. Items addressed in this encounter: Fax/Forms Maribell Nicholas MA September 26, 2023 9:43 AM 9:43 AM * Telephone Encounter - Ariella Crabtree - 09/21/2023 1:31 PM EST Type of form: FMLA for intermittent leave Form received via walk in When form is completed, Fax form to [phone] Form has been faxed to ROBERTA Carrion. [place] has original copy she will hold on to. Form has been forwarded to Dr Tracy. Ariella Sam documented in this encounterBucyrus [facility]03-11-2024 History of Present illness Narrative* Damaso Samuels Jr., MD - 10/01/2023 4:02 PM EDT NEW PATIENT (CONSULT) HISTORY AND PHYSICAL EXAM PRIMARY CARE PHYSICIAN: Keaton Tracy MD REASON FOR CONSULT: See below REFERRING PHYSICIAN: Aliyah Carter, APR* CHIEF COMPLAINT: Multiple things happening to me and I don't know why Consultation requested by Aliyha Carter, APR* for an opinion regarding chief complaint of Patient presents with: New Patient: Pt reported intermittent cramping hands, x4 years. and my final recommendations will be communicated back to the requesting physician by way of sharedmedical record or letter via [place] mail. HISTORY OF PRESENT ILLNESS: Fadumo Hensley is a 27 year old female, with past medical history as noted below. Pt already following with headache center with last visit on 05/30/23 and per note: (G43.109) Migraine with aura and without status migrainosus, not intractable Fadumo Hensley is a 27 year old female with history of NOAH GERD Hep C s/p cured after medication ASCUS with high risk HPV BCC s/p surgery 2020 Lumbar DDD Tobacco use disorder Patient presents to the office today with concerns of episodic migraine. Patient had 1 episode of migraine with visual disturbances lasting for about 20 minutes. She is described it as flashes of shapes of bright rainbow colors. Patient had worsening of her migraine headaches during her last year, with almost every day headaches, treated with PCP with verapamil and sumatriptan 50 mg for as needed use. She reports she had no benefit with verapamil in the past Sumatriptan 50 mg was working well as rescue medication. Limited neuro exam is unremarkable. There is no neuro imaging charts. In view of migraine with aura, worsening every day headaches during her last year, patient in post period we will petition for MRI of the brain with and without contrast to rule out any tumor, inflammation, masses, demyelination, cerebral thrombosis. In view of episodic migraines we will increase sumatriptan from 50 mg to 100 mg as needed at the onset of headaches, may repeat 1 in 2 hours, limit 9/month Discussed nonpharmacological measures including using magnesium oxide 400 mg once a day [id number]-ith-nssczec. Patient agreeable to the above plan and will schedule MRI, schedule a visit in 6 months, sooner if needed An MRI brain was ordered at that time but not available for review. Records also indicate pt following with spine for lower back pain with visit on 03/15/23. Patient with multiple complaints of cramping of her hands, paralysis around her mouth for 3 years, feeling like she is going to pass out. PCP notes reviewed, and pt with panic attacks as well. Pt reports 3 years ago a whole bunch of stuff started happening with her health - back pain, headaches, skin cancer on scalp. States she was gong to get sutures removed for the latter and had onset of face making an O with the mouth, lightheadedness and hand cramping. Was taken to ER and was toldlikely a panic attack. States the weird thing is, is that she has been panicked before with drivingand nothing like this has happened. States it has a happened a couple more times. Feels it in her head, feels warm, brain becomes foggy, knows it is going to happen. Then can stop what she is doing. States this is about the time she also started getting headaches. States one time she was driving and started to see hexagon shapes with a rainbow. States since headaches worse. When I ask when the was, not able to tell me immediately but then states delivered in November of 2022. States the claw hands have significantly increased - was one every year, then one every 6 months and now 5-6 times per year.. Longest episode has lasted is about 25 minutes. No loc. States nothing she can do relaxes the hand - resolves spontaneously. States symptoms only occur when driving. If stops driving and eats something she states it stops. However, then states she feels shaky after the events. Spasms in mouth last the same time as in the hands - able to chew despite spasms. Pt states feelslike going to pass out with events. No positional changes. Pt states no one ever sent her for an MRI brain until seeing the headache specialist. Pt states diagnosed as panic attacks. I do not have ER records - pt has on phone and begins to readto me but then states this is not right. Pt denies having such events during , but started prior to in 2020. When asked when last event was, pt states 09/21/23 but just felt woozy and hand and face did not cramp. States Imitrex never helped headache - inconsistent with hx obtained by headache center. REVIEW OF SYSTEMS GENERAL:No weight loss, malaise or fevers. HEENT:No changes in hearing or vision, no nose bleeds or other nasal problems NECK:Negative for lumps, goiter, pain and significant neck swelling RESPIRATORY: Negative for cough, wheezing or shortness of breath. CARDIOVASCULAR: Negative for chest pain, leg swelling or palpitations. GASTROINTESTINAL: Negative for abdominal discomfort, blood in stools or black stools or change in bowel habits GENITOURINARY: No history of dysuria, frequency or incontinence MUSCULOSKELETAL: Negative for joint pain or swelling, back pain or muscle pain. NEUROLOGIC:Negative for focal numbness or weakness, headaches and dizziness or syncope, vision changes, speech/language changes, changes in gait or falls -- besides those complaints as above in HPI. SKIN:Negative for lesions, rash, and itching. PSYCHIATRIC: See HPI. HEMATOLOGIC/LYMPHATIC/IMMUNOLOGIC:Negative for prolonged bleeding, bruising easily or swollen nodes. ENDOCRINE: Negative for cold or heat intolerance, polyuria, polydipsia and goiter. The remainder of the ROS was reviewed and is negative. LAB/IMAGING: Reviewed and include: WBC (k/uL) Date Value 11/01/2022 9.62 RBC (m/uL) Date Value 11/01/2022 3.34 (L) Hemoglobin (g/dL) Date Value 11/01/2022 9.8 (L) Hematocrit (%) Date Value 11/01/2022 29.0 (L) MCV (fL) Date Value 11/01/2022 86.8 MCH (pg) Date Value 11/01/2022 29.3 MCHC (g/dL) Date Value 11/01/2022 33.8 RDW-CV (%) Date Value 11/01/2022 13.5 Platelet Count (k/uL) Date Value 11/01/2022 222 MPV (fL) Date Value 11/01/2022 9.6 Glucose (mg/dL) Date Value 07/31/2023 85 BUN (mg/dL) Date Value 07/31/2023 9 Creatinine (mg/dL) Date Value 07/31/2023 0.65 Sodium (mmol/L) Date Value 07/31/2023 139 Potassium (mmol/L) Date Value 07/31/2023 3.9 Chloride (mmol/L) Date Value 07/31/2023 104 CO2 (mmol/L) Date Value 07/31/2023 22 Protein, Total (g/dL) Date Value 07/31/2023 7.5 Albumin (g/dL) Date Value 07/31/2023 4.4 Calcium, Total (mg/dL) Date Value 07/31/2023 9.5 Alkaline Phosphatase (U/L) Date Value 07/31/2023 101 Bilirubin, Total (mg/dL) Date Value 07/31/2023 1.6 (H) AST (U/L) Date Value 07/31/2023 33 ALT (U/L) Date Value 07/31/2023 48 (H) YONATHAN (no units) Date Value 05/06/2013 Negative Rheumatoid Factor (IU/mL) Date Value 05/06/2013 <7 Hep C Antibody IA (no units) Date Value 11/01/2022 Positive (A) MEDICATIONS: meloxicam (MOBIC) 15 mg tablet TAKE 1 TABLET BY MOUTH EVERY DAY WITH FOOD NEEDED FOR 30 DAYS cloNIDine HCl (CATAPRES) 0.1 mg tablet Take 1 tablet by mouth once daily as needed (Anxiety). lisdexamfetamine (VYVANSE) 40 mg capsule Take 1 capsule by mouth once daily for 30 days. metFORMIN ER (GLUCOPHAGE XR) 500 mg 24 hr tablet Take 1 tablet by mouth daily with breakfast. SUMAtriptan (IMITREX) 100 mg tablet Take 1 tablet (100 mg) by mouth as needed. TAKE ONE (1) TABLET EVERY 2 HOURS WITH A MAXIMUM DOSE OF 200 MG PER DAY NEEDED FOR HEADACHE levonorgestrel (LILETTA) 20.4 mcg/24 hrs (8 yrs) 52 mg IUD 1 Each by INTRAUTERINE route as directed. albuterol HFA (PROAIR HFA) 90 mcg/actuation inhaler Inhale 2 Puffs as instructed every 4 hours as needed for wheezing/shortness of breath. Used for seasonal allergies HISTORIES PAST MEDICAL HISTORY Diagnosis Date ASCUS with positive high risk HPV cervical 09/26/2019 Asthma 11/29/2011 ATTN DEFICIT NONHYPERACT 11/27/2007 Bulging of intervertebral disc between L4 and L5 and L5 and S1 09/07/2015 Chest pain 04/29/2010 Chlamydia infection 09/23/2013 Depression 05/26/2011 Depression complicating , antepartum 08/02/2012 Diet controlled gestational diabetes mellitus (GDM) in second trimester 11/08/2022 11/08/22- 2 levels out of 3 elevated. Supplies and referrals ordered. Sulma Bartholomew APRN.CNM Generalized anxiety disorder GERD (gastroesophageal reflux disease) Hepatitis C 2017 2018 cured after medication course. High grade squamous intraepithelial cervical dysplasia History of suicide attempt 2015 cutting wrist Juvenile osteochondrosis of lower extremity, excluding foot 2005, resolved Migraine headache 05/26/2011 other Sever's Disease, 2006, resolved Other acne 01/27/2010 Pain in joint, site unspecified AC joint tear, 2006 Patient requested diagnostic testing 04/18/2012 04/18/2012 Patient desires early screening in with sequential testing. Poor support system complicating 04/18/2012 04/18/2012The father of the baby is aware that she is , but does not wish to be involved. Patient states her parents are very supportive. Patient is tearful for some of this visit today due to the father of the baby. She states he has put pressure on her in the past to have an , butshe does not wish to do that. Patient was given a brochure on the care center and WIC. depression PTSD (post-traumatic stress disorder) Rosacea 01/27/2010 Rubella non-immune status 04/22/2012 Skin cancer Teen 04/22/2012 July 04, 2012 Flu vaccine given Telangiectasia 01/27/2010 Tobacco use disorder FAMILY HISTORY Problem Relation Age of Onset Skin Cancer Mother Hypertension Mother Heart Failure Mother Liver Cancer Mother 66 Heart Father TRIPLE BYPASS SURGERY Hypertension Father Diabetes Father Diabetes Sister No Known Problems Sister No Known Problems Sister No Known Problems Brother No Known Problems Brother No Known Problems Brother Heart Maternal Grandmother from heart problems Heart Maternal Grandfather from heart problems Cancer Maternal Grandfather lung Hypertension Maternal Grandfather No Known Problems Daughter SOCIAL HISTORY Social History Tobacco Use Smoking status: Former Packs/day: 1.00 Years: 9.00 Additional pack years: 0.00 Total pack years: 9.00 Types: Cigarettes Smokeless tobacco: Current Tobacco comments: Vapes Vaping Use Vaping Use: current everyday user Substances: Nicotine Devices: Pre-filled or refillable cartridge Substance Use Topics Alcohol use: Not Currently Drug use: Yes Types: Heroin, Marijuana Comment: Patient states I have used multiple drugs in the past PHYSICAL EXAMINATION LMP 09/17/2023 (Approximate) GENERAL EXAM: General appearance: NAD, pleasant. HEENT: NC/AT, nasal congestion absent, no oral lesions, membranes moist. NECK: No masses, supple. Lungs: CTA bilaterally. No wheezes present. CV: RRR nl S1, S2, no murmurs. No carotid bruits. Abd: Soft, nontender, nondistended. Bowel sounds present. Extr: No cyanosis, clubbing or edema. No evidence of fasciculations. Extremity pulses palpable and normal. Skin: Cool to touch. No rash. NEUROLOGICAL EXAM: General: Awake, alert, oriented x3 (person,place,time), speech fluent, no dysarthria; comprehension, naming, repetition intact. Short and fdc memory intact. Fund of knowledge grossly normal by MOCA. CN: PERRL, fundi appear normal including no evidence of papilledema, EOMI and without nystagmus, VFF to confrontation, facial sensation and strength are normal and symmetric, hearing is intact to finger rub bilaterally, palate and tongue movements are intact and symmetric. SCM and trapezius strength normal. Motor: Normal tone, bulk and strength (5/5) bilaterally (throughout extremities x4). Reflexes: 2/4 and symmetric, plantar stimulation is flexor. Coordination: FNF, DELISA, HTS intact. No tremors. Sensation: LT, PP, vibration, temperature intact throughout. No evidence of neglect. Gait: Narrow based and stable with normal stride and arm swing. Normal tandem. Romberg normal. Assessment and Plan: ASSESSMENT/PLAN: 1. Migraine with aura and without status migrainosus, not intractable - ICD9: 346.00, ICD10: G43.109 (primary diagnosis) 2. Cramping of hands - ICD9: 729.82, ICD10: R25.2 3. 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 Near syncope - ICD9: 780.2, ICD10: R55 5. Adrenal nodule (HCC) - ICD9: 255.8, ICD10: E27.8 Patient with combination of symptoms as above, of which etiology is uncertain. Known history of migraine + aura (visual) is possible contributing factors and for which patient is following with headache center, but currently not taking any Rx'd meds specifically for dx. Defer further workup and treatment to the headache center, but agree with MRI/MRV already ordered and pending -- to be completedlater this week. Imaging will allow for rule out of intracranial etiology, but less likely given non-focal neuro exam. Also in ddx would be seizure disorder, but generalized symptoms without loc again makes less likely. Still, patient will undergo MRI brain as above and will proceed with EEG. Also c onsider possible cardiac origin as cause of presyncope (cardiac arrhythmia) and will further evaluate by means of event monitor. Finally consider endocrine etiology (I.e. pheo or other) given reported adrenal nodule and will request consult from endocrinology for further testing (I.e. 24 hour urine). Will determine further workup or treatment based on the findings of the above testing. Note that if workup unremarkable including endocrine, especially if spell captured, then also need to considerdiagnosis or exclusion including stress reaction. DDx d/w pt including reasoning for workup. Patient agrees with plan as above. Damaso Samuels MD Medical Decision Making: Problems: Moderate: New problem with uncertain prognosis Data: Unique test result(s) reviewed: 1 Unique test(s) ordered: 2 Medical Decision Making Level: 4 - Moderate I spent a total of 45+ minutes on the date of the service which included preparing to see the patient, [id number] patient care, completing clinical documentation, obtaining and/or reviewing separately obtained history, performing a medically appropriate examination, counseling and educating the pa tient/family/caregiver, ordering medications, tests, or procedures, and communicating results to the patient/family/caregiver. documented in this [facility] History of Present illness Narrative* Dev Narayan MD - 10/01/2023 8:15 AM EDT Subjective Patient ID: Faduom Hensley is a 27 y.o. female. Virtual or Telephone Consent An interactive audio and video telecommunication system which permits real time communications between the patient (at the originating site) and provider (at the distant site) was utilized to providethis telehealth service. Verbal consent was requested and obtained from Fadumo Hensley on this date, 10/01/23 for a telehealth visit. HPI Patient is here for 1 week with KUB results. She was seen in the ER last month for flank pain. CT was done that showed bilateral nonobstructive stones greater on the right. She has intermittent flank Pain. Chronic LUT'S sx are mild and stable. Denies urgency and frequency. Denies dysuria. Denies hematuria. Nocturia x1. No medication for LUT'S. Review of Systems Constitutional: Negative for chills and fever. HENT: Negative. Eyes: Negative. Respiratory: Negative for cough and shortness of breath. Cardiovascular: Negative for chest pain and leg swelling. Gastrointestinal: Negative for nausea. Endocrine: Negative. Genitourinary: Negative for difficulty urinating. Negative except for documented in HPI Allergic/Immunologic: Negative. Neurological: Alert & oriented X 3 Hematological: Denies blood thinners Psychiatric/Behavioral: Negative. Objective Physical Exam No PE done given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 patient is not at risk for depression and recommended no further intervention at this time. 2. Encounter for immunization - ICD9: V03.89, ICD10: Z23 - PFIZER-BIONTECH COVID-19 VACCINE ( SEASON) AGE 12+ YR - INFLUENZA VACCINE, AGE 6 MO - 64 YR, QUADRIVALENT (AFLURIA, FLULAVAL, FLUZONE) 3. Migraine with aura, not intractable, without status migrainosus - ICD9: 346.00, ICD10: G43.109 - follow-up with neurology as recommended - complete MRI of brain 4. Panic disorder - ICD9: 300.01, ICD10: F41.0 - follow-up with psychology as recommended 5. Disorder of adrenal gland (HCC) - ICD9: 255.9, ICD10: E27.9 - scheduled MRI of adrenal gland 6. ADHD (attention deficit hyperactivity disorder), inattentive type - ICD9: 314.00, ICD10: F90.0 PDMP website checked and validated. All prescriptions have been APPROPRIATELY filled. No suspiciousactivity was identified. 09/03/2023 by Bibi Saxena APRN.ANISHA - stable on current dose of Vyvanse - follow-up in 3 months, sooner if needed Bibi Saxena APRN.ANISHA Prescription instructions reviewed with patient as applicable. Patient advised if symptoms do not improve or if symptoms worsen sooner, to contact their primary care physician. Potential red flag symptoms discussed with the patient. Reviewed appropriate action plan to take if red flag symptoms occur. Patient agreeable to treatment plan. documented in this encounterBu[facility]02-[facility]24 History of Present illness Narrative* Damaso Jang MD - 08/31/2023 3:24 PM EST Patient presents with: ER F/U HPI:This Team Access Model visit is a virtual encounter. It required patient- provider interaction for the medical decision making as documented below. Patient has elected to have a visit through distance medicine I have communicated my name and active licensure. The patient's identity and physical location wereverified at the time of this visit. Either the patient or their legal artist representative has been informed of the risks and benefits of -- and alternatives to -- treatment through a remote evaluation andconsents to proceed with the evaluation remotely. Seen in ER on 08/26 and diagnosed with uti. Was placed on bactrim. I cannot see the culture, but was called from ER to change to cipro based onculture. Her main concern is that she has had recurrent episodes of dizziness. No passing out but at times feels like she could be getting there. Has been worked up in the past multiple times and told it was anxiety. She wants to make sure the adrenal nodule is not related. She states it was noted years ago when she had imaging. Her pcp at the time told her not to worry about it per patient It was 1.5 cm apparently then. Her ct at [place] described it as 2.2 cm which might be enlarging but is a different type of scan. She has never had dedicated adrenal imaging and never had follow up imaging. It appears she has had some work up for her adrenal for the same in 2020 and had 24 hour urine studies done as well in the past Component Latest Ref Rng & Units 12/06/2020 Metanephrine, Plasma 12 - 67 pg/mL <15 Normetanephrine, Free Plasma 18 - 101 pg/mL 130 (H) ACTH 7.2 - 63.3 pg/mL 16.7 Aldosterone 3.1 - 35.4 ng/dL 9.5 Cortisol 4.8 - 19.5 ug/dL 6.0 Direct Renin pg/mL 14.1 Can see ER visit from [facility] in Care Everywhere HPI, copied and pasted: Patient is a 27-year-old female who presents to the emergency department with a chief complaint of urinary symptoms and flank pain. She states that yesterday she noticed burning with urination. She states that she took Azo and states may be minimal improvement. She states that she awoke today her symptoms are worse and she developed bilateral flank pain. She states that the pain is worse on her left side. She denies any nausea or vomiting. No fever or chills. No abdominal pain. She states that sometimes the pain is worse when she moves although not always. She does have history of kidney stones, states that this feels similar. Labs Reviewed URINALYSIS WITH REFLEX CULTURE AND MICROSCOPIC - Abnormal Result Value Color, Urine Gina (*) Appearance, Urine Hazy (*) Specific [place], Urine 1.011 pH, Urine 8.0 Protein, Urine 100 (2+) (*) Glucose, Urine NEGATIVE Blood, Urine LARGE (3+) (*) Ketones, Urine NEGATIVE Bilirubin, Urine NEGATIVE Urobilinogen, Urine 2.0 (*) Nitrite, Urine POSITIVE (*) Leukocyte Esterase, Urine MODERATE (2+) (*) MICROSCOPIC ONLY, URINE - Abnormal WBC, Urine >50 (*) WBC Clumps, Urine OCCASIONAL RBC, Urine >20 (*) Squamous Epithelial Cells, Urine 1-9 (SPARSE) Bacteria, Urine 1+ (*) CBC WITH AUTO DIFFERENTIAL - Abnormal WBC 12.9 (*) nRBC 0.0 RBC 4.19 Hemoglobin 12.6 Hematocrit 36.8 MCV 88 MCH 30.1 MCHC 34.2 RDW 11.7 Platelets 250 Neutrophils % 69.6 Immature Granulocytes %, Automated 0.2 Lymphocytes % 24.2 Monocytes % 5.3 Eosinophils % 0.5 Basophils % 0.2 Neutrophils Absolute 8.95 (*) Immature Granulocytes Absolute, Automated 0.02 Lymphocytes Absolute 3.12 Monocytes Absolute 0.68 Eosinophils Absolute 0.07 Basophils Absolute 0.03 BASIC METABOLIC PANEL - Abnormal Glucose 99 Sodium 137 Potassium 3.3 (*) Chloride 106 Bicarbonate 25 Anion Gap 9 (*) Urea Nitrogen 12 Creatinine 0.66 eGFR >90 Calcium 9.4 HEPATIC FUNCTION PANEL - Abnormal Albumin 4.4 Bilirubin, Total 1.3 (*) Bilirubin, Direct 0.2 Alkaline Phosphatase 81 ALT 23 AST 16 Total Protein 7.1 LIPASE - Normal Lipase 20 Narrative: Venipuncture immediately after or during the administration of Metamizole may lead to falsely low results. Testing should be performed immediately prior to Metamizole dosing. HCG, URINE, QUALITATIVE - Normal HCG, Urine NEGATIVE URINE CULTURE URINALYSIS WITH REFLEX CULTURE AND MICROSCOPIC Narrative: The following orders were created for panel order Urinalysis with Reflex Culture and Microscopic. Procedure Abnormality Status CT: CT abdomen pelvis wo IV contrast Final Result Bilateral nonobstructing renal calculi, greater on the right. No obstructive uropathy identified. Possible right adrenal adenoma. MEDICATIONS: Current Outpatient Medications Medication Sig lisdexamfetamine (VYVANSE) 40 mg capsule Take 1 capsule by mouth once daily for 30 days. metFORMIN ER (GLUCOPHAGE XR) 500 mg 24 hr tablet Take 1 tablet by mouth daily with breakfast. cloNIDine HCl (CATAPRES) 0.1 mg tablet Take 1 tablet by mouth once daily as needed (Anxiety). SUMAtriptan (IMITREX) 100 mg tablet Take 1 tablet (100 mg) by mouth as needed. TAKE ONE (1) TABLET EVERY 2 HOURS WITH A MAXIMUM DOSE OF 200 MG PER DAY NEEDED FOR HEADACHE levonorgestrel (LILETTA) 20.4 mcg/24 hrs (8 yrs) 52 mg IUD 1 Each by INTRAUTERINE route as directed. methocarbamol (ROBAXIN) 500 mg tablet Take 500 mg by mouth four times daily. tiZANidine (ZANAFLEX) 4 mg tablet Take 1 tablet by mouth at bedtime as needed (muscle spasms). albuterol HFA (PROAIR HFA) 90 mcg/actuation inhaler Inhale 2 Puffs as instructed every 4 hours as needed for wheezing/shortness of breath. Used for seasonal allergies No current facility-administered medications for this visit. ALLERGIES: ALLERGIES Allergen Reactions Zyrtec [Cetirizine * Intolerance tremors PAST MEDICAL HISTORY Diagnosis Date ASCUS with positive high risk HPV cervical 09/26/2019 Asthma 11/29/2011 ATTN DEFICIT NONHYPERACT 11/27/2007 Bulging of intervertebral disc between L4 and L5 and L5 and S1 09/07/2015 Chest pain 04/29/2010 Chlamydia infection 09/23/2013 Depression 05/26/2011 Depression complicating , antepartum 08/02/2012 Diet controlled gestational diabetes mellitus (GDM) in second trimester 11/08/2022 11/08/22- 2 levels out of 3 elevated. Supplies and referrals ordered. Sulma Bartholomew, FONDANT COOKER.CNM Generalized anxiety disorder GERD (gastroesophageal reflux disease) Hepatitis C 2017 2018 cured after medication course. High grade squamous intraepithelial cervical dysplasia History of suicide attempt 2014 cutting wrist Juvenile osteochondrosis of lower extremity, excluding foot 2005, resolved Migraine headache 05/26/2011 other Sever's Disease, 2006, resolved Other acne 01/27/2010 Pain in joint, site unspecified AC joint tear, 2005 Patient requested diagnostic testing 04/18/2012 04/18/2012 Patient desires early screening in with sequential testing. Poor support system complicating 04/18/2012 04/18/2012The father of the baby is aware that she is , but does not wish to be involved. Patient states her parents are very supportive. Patient is tearful for some of this visit today due to the father of the baby. She states he has put pressure on her in the past to have an , butloraine does not wish to do that. Patient was given a brochure on the care center and WIC. depression PTSD (post-traumatic stress disorder) Rosacea 01/27/2010 Rubella non-immune status 04/22/2012 Skin cancer Teen 04/22/2012 July 04, 2012 Flu vaccine given Telangiectasia 01/27/2010 Tobacco use disorder PAST SURGICAL HISTORY Procedure Laterality Date CERVIX UTERI CONIZA LP ELCTRO EXCI 05/11/2023 at [facility]-Dr. Millan PAST SURGICAL HISTORY OF 01/01/2010 Removal of 4 [place]re[place] Teeth PAST SURGICAL HISTORY OF basal cell carcinoma removed from scalp FAMILY HISTORY Problem Relation Age of Onset Skin Cancer Mother Hypertension Mother Heart Failure Mother Liver Cancer Mother 66 Heart Father TRIPLE BYPASS SURGERY Hypertension Father Diabetes Father Diabetes Sister No Known Problems Sister No Known Problems Sister No Known Problems Brother No Known Problems Brother No Known Problems Brother Heart Maternal Grandmother from heart problems Heart Maternal Grandfather from heart problems Cancer Maternal Grandfather lung Hypertension Maternal Grandfather No Known Problems Daughter Social History Tobacco Use Smoking status: Former Packs/day: 1.00 Years: 9.00 Additional pack years: 0.00 Total pack years: 9.00 Types: Cigarettes Smokeless tobacco: Current Tobacco comments: Vapes Vaping Use Vaping Use: current everyday user Substances: Nicotine Devices: Pre-filled or refillable cartridge Substance Use Topics Alcohol use: Not Currently Drug use: Yes Types: Heroin, Marijuana Comment: Patient states I have used multiple drugs in the past Reviewed current medications, allergies, past medical history, surgical history, family history andsocial history today. VITALS: LMP 07/01/2023 (Within Days) Last 4 Encounter Wt Readings: Date: Wt: 07/03/2023 81.6 kg (180 lb) 06/13/2023 81.2 kg (179 lb) 06/06/2023 81.2 kg (179 lb) 05/09/2023 80.3 kg (177 lb) PHYSICAL EXAMINATION: Patient is alert and oriented during visit. Answers appropriately. ASSESSMENT/PLAN: 1. Disorder of adrenal gland (HCC) - ICD9: 255.9, ICD10: E27.9 (primary diagnosis) - I did discuss that working up her chronic issues is difficult to do over video and we can have her follow up after imaging to see if any further work up is needed. I would suggest we do a formal dedicated mri of her adrenals to see if the nodule is truly enlarging. If it is then we may have to consider referral. - MRI ADRENAL WO/W IVCON - IV CONTRAST (RADIOLOGY PROCEDURE) 2. Adrenal mass 1 cm to 4 cm in diameter (HCC) - ICD9: 255.8, ICD10: E27.8 - MRI ADRENAL WO/W IVCON - IV CONTRAST (RADIOLOGY PROCEDURE) Damaso Jang MD documented in this encounterBu[facility]02-[facility]24 Hospital Discharge instructions* Discharge Instructions* Wilver Tarango PA-C - 08/26/2023 10:07 PM EST You have a urinary tract infection. You have been prescribed oral antibiotics and Pyridium. If yoursymptoms worsen you need to return immediately. It was also noted that you have an adrenal adenoma that is measuring approximately 2.2 cm. Follow-up with your family physician as recommended. documented in this encounterW[facility] Work Phone: [phone] 377-981902-04-2024 Emergency department Note* Wilver Tarango PA-C - 08/26/2023 5:48 PM EST Patient is a 27-year-old female who presents to the emergency department with a chief complaint of urinary symptoms and flank pain. She states that yesterday she noticed burning with urination. She states that she took Azo and states may be minimal improvement. She states that she awoke today her symptoms are worse and she developed bilateral flank pain. She states that the pain is worse on her left side. She denies any nausea or vomiting. No fever or chills. No abdominal pain. She states that sometimes the pain is worse when she moves although not always. She does have history of kidney stones, states that this feels similar. Review of Systems Constitutional: Negative for chills and fever. HENT: Negative for ear pain and sore throat. Eyes: Negative for pain and visual disturbance. Respiratory: Negative for cough and shortness of breath. Cardiovascular: Negative for chest pain and palpitations. Gastrointestinal: Negative for abdominal pain, nausea and vomiting. Genitourinary: Positive for dysuria, flank pain and frequency. Negative for hematuria. Musculoskeletal: Negative for arthralgias and back pain. Skin: Negative for color change and rash. Neurological: Negative for seizures and syncope. All other systems reviewed and are negative. Physical Exam Vitals and nursing note reviewed. Constitutional: General: She is not in acute distress. Appearance: Normal appearance. She is well-developed. HENT: Head: Normocephalic and atraumatic. Eyes: Extraocular Movements: Extraocular movements intact. Conjunctiva/sclera: Conjunctivae normal. Cardiovascular: Rate and Rhythm: Normal rate and regular rhythm. Heart sounds: No murmur heard. Pulmonary: Effort: Pulmonary effort is normal. No respiratory distress. Breath sounds: Normal breath sounds. No stridor. No wheezing or rhonchi. Abdominal: General: There is no distension. Palpations: Abdomen is soft. There is no mass. Tenderness: There is no abdominal tenderness. There is no right CVA tenderness, left CVA tenderness, guarding or rebound. Hernia: No hernia is present. Musculoskeletal: General: No swelling. Cervical back: Normal range of motion and neck supple. No rigidity. Skin: General: Skin is warm and dry. Capillary Refill: Capillary refill takes less than 2 seconds. Neurological: Mental Status: She is alert. Psychiatric: Mood and Affect: Mood normal. Labs Reviewed URINALYSIS WITH REFLEX CULTURE AND MICROSCOPIC - Abnormal Result Value Color, Urine Gina (*) Appearance, Urine Hazy (*) Specific [place], Urine 1.011 pH, Urine 8.0 Protein, Urine 100 (2+) (*) Glucose, Urine NEGATIVE Blood, Urine LARGE (3+) (*) Ketones, Urine NEGATIVE Bilirubin, Urine NEGATIVE Urobilinogen, Urine 2.0 (*) Nitrite, Urine POSITIVE (*) Leukocyte Esterase, Urine MODERATE (2+) (*) MICROSCOPIC ONLY, URINE - Abnormal WBC, Urine >50 (*) WBC Clumps, Urine OCCASIONAL RBC, Urine >20 (*) Squamous Epithelial Cells, Urine 1-9 (SPARSE) Bacteria, Urine 1+ (*) CBC WITH AUTO DIFFERENTIAL - Abnormal WBC 12.9 (*) nRBC 0.0 RBC 4.19 Hemoglobin 12.6 Hematocrit 36.8 MCV 88 MCH 30.1 MCHC 34.2 RDW 11.7 Platelets 250 Neutrophils % 69.6 Immature Granulocytes %, Automated 0.2 Lymphocytes % 24.2 Monocytes % 5.3 Eosinophils % 0.5 Basophils % 0.2 Neutrophils Absolute 8.95 (*) Immature Granulocytes Absolute, Automated 0.02 Lymphocytes Absolute 3.12 Monocytes Absolute 0.68 Eosinophils Absolute 0.07 Basophils Absolute 0.03 BASIC METABOLIC PANEL - Abnormal Glucose 99 Sodium 137 Potassium 3.3 (*) Chloride 106 Bicarbonate 25 Anion Gap 9 (*) Urea Nitrogen 12 Creatinine 0.66 eGFR >90 Calcium 9.4 HEPATIC FUNCTION PANEL - Abnormal Albumin 4.4 Bilirubin, Total 1.3 (*) Bilirubin, Direct 0.2 Alkaline Phosphatase 81 ALT 23 AST 16 Total Protein 7.1 LIPASE - Normal Lipase 20 Narrative: Venipuncture immediately after or during the administration of Metamizole may lead to falsely low results. Testing should be performed immediately prior to Metamizole dosing. HCG, URINE, QUALITATIVE - Normal HCG, Urine NEGATIVE URINE CULTURE URINALYSIS WITH REFLEX CULTURE AND MICROSCOPIC Narrative: The following orders were created for panel order Urinalysis with Reflex Culture and Microscopic. Procedure Abnormality Status --------- ------ Urinalysis with Reflex C...[[id number]] Abnormal Final result Extra Urine Waters Tube[[id number]] In process Please view results for these tests on the individual orders. EXTRA URINE WATERS TUBE CT abdomen pelvis wo IV contrast Final Result Bilateral nonobstructing renal calculi, greater on the right. No obstructive uropathy identified. Possible right adrenal adenoma. MACRO: None Signed by: Federica Sutherland 08/26/2023 9:20 PM Dictation workstation: [id number] Procedures Medical Decision Making Patient is a 27-year-old female who presents to the emergency department with a chief complaint of bilateral flank pain, worse to her left flank, and urinary symptoms. Reports that symptoms were similar to her previous UTI but also similar to a kidney stone. Patient's urinalysis is consistent with a urinary tract infection. She was given IV Rocephin. CT scan of the abdomen pelvis shows bilateral nonobstructing renal calculi with no obstructive uropathy. Patient has a noted possible right adrenal adenoma which she was made aware of and instructed to follow-up with her family physician. Patientdoes have leukocytosis of 12.9. She is afebrile, nontoxic-appearing, is not vomiting and able to marty erate p.o. medications. Patient will be discharged home on p.o. antibiotics. Urine will be sent forculture and she was instructed to return immediately for any new or worsening symptoms. She does verbalize understanding and feels comfortable with plan of discharge. Amount and/or Complexity of Data Reviewed Labs: ordered. Decision-making details documented in ED Course. Radiology: ordered. Decision-making details documented in ED Course. Risk Prescription drug management. Diagnoses as of 08/26/232209 Urinary tract infection without hematuria, site unspecified Flank pain Adrenal adenoma, unspecified laterality Renal calculi Wilver Tarango PA-C 08/26/232209 documented in this [facility] Work Phone: 1(522) 362-994202-04-2024 Physician Emergency department Note* Wilver Tarango PA-C - 08/26/2023 5:48 PM EST Patient is a 27-year-old female who presents to the emergency department with a chief complaint of urinary symptoms and flank pain. She states that yesterday she noticed burning with urination. She states that she took Azo and states may be minimal improvement. She states that she awoke today her symptoms are worse and she developed bilateral flank pain. She states that the pain is worse on her left side. She denies any nausea or vomiting. No fever or chills. No abdominal pain. She states that sometimes the pain is worse when she moves although not always. She does have history of kidney stones, states that this feels similar. Review of Systems Constitutional: Negative for chills and fever. HENT: Negative for ear pain and sore throat. Eyes: Negative for pain and visual disturbance. Respiratory: Negative for cough and shortness of breath. Cardiovascular: Negative for chest pain and palpitations. Gastrointestinal: Negative for abdominal pain, nausea and vomiting. Genitourinary: Positive for dysuria, flank pain and frequency. Negative for hematuria. Musculoskeletal: Negative for arthralgias and back pain. Skin: Negative for color change and rash. Neurological: Negative for seizures and syncope. All other systems reviewed and are negative. Physical Exam Vitals and nursing note reviewed. Constitutional: General: She is not in acute distress. Appearance: Normal appearance. She is well-developed. HENT: Head: Normocephalic and atraumatic. Eyes: Extraocular Movements: Extraocular movements intact. Conjunctiva/sclera: Conjunctivae normal. Cardiovascular: Rate and Rhythm: Normal rate and regular rhythm. Heart sounds: No murmur heard. Pulmonary: Effort: Pulmonary effort is normal. No respiratory distress. Breath sounds: Normal breath sounds. No stridor. No wheezing or rhonchi. Abdominal: General: There is no distension. Palpations: Abdomen is soft. There is no mass. Tenderness: There is no abdominal tenderness. There is no right CVA tenderness, left CVA tenderness, guarding or rebound. Hernia: No hernia is present. Musculoskeletal: General: No swelling. Cervical back: Normal range of motion and neck supple. No rigidity. Skin: General: Skin is warm and dry. Capillary Refill: Capillary refill takes less than 2 seconds. Neurological: Mental Status: She is alert. Psychiatric: Mood and Affect: Mood normal. Labs Reviewed URINALYSIS WITH REFLEX CULTURE AND MICROSCOPIC - Abnormal Result Value Color, Urine Gina (*) Appearance, Urine Hazy (*) Specific [place], Urine 1.011 pH, Urine 8.0 Protein, Urine 100 (2+) (*) Glucose, Urine NEGATIVE Blood, Urine LARGE (3+) (*) Ketones, Urine NEGATIVE Bilirubin, Urine NEGATIVE Urobilinogen, Urine 2.0 (*) Nitrite, Urine POSITIVE (*) Leukocyte Esterase, Urine MODERATE (2+) (*) MICROSCOPIC ONLY, URINE - Abnormal WBC, Urine >50 (*) WBC Clumps, Urine OCCASIONAL RBC, Urine >20 (*) Squamous Epithelial Cells, Urine 1-9 (SPARSE) Bacteria, Urine 1+ (*) CBC WITH AUTO DIFFERENTIAL - Abnormal WBC 12.9 (*) nRBC 0.0 RBC 4.19 Hemoglobin 12.6 Hematocrit 36.8 MCV 88 MCH 30.1 MCHC 34.2 RDW 11.7 Platelets 250 Neutrophils % 69.6 Immature Granulocytes %, Automated 0.2 Lymphocytes % 24.2 Monocytes % 5.3 Eosinophils % 0.5 Basophils % 0.2 Neutrophils Absolute 8.95 (*) Immature Granulocytes Absolute, Automated 0.02 Lymphocytes Absolute 3.12 Monocytes Absolute 0.68 Eosinophils Absolute 0.07 Basophils Absolute 0.03 BASIC METABOLIC PANEL - Abnormal Glucose 99 Sodium 137 Potassium 3.3 (*) Chloride 106 Bicarbonate 25 Anion Gap 9 (*) Urea Nitrogen 12 Creatinine 0.66 eGFR >90 Calcium 9.4 HEPATIC FUNCTION PANEL - Abnormal Albumin 4.4 Bilirubin, Total 1.3 (*) Bilirubin, Direct 0.2 Alkaline Phosphatase 81 ALT 23 AST 16 Total Protein 7.1 LIPASE - Normal Lipase 20 Narrative: Venipuncture immediately after or during the administration of Metamizole may lead to falsely low results. Testing should be performed immediately prior to Metamizole dosing. HCG, URINE, QUALITATIVE - Normal HCG, Urine NEGATIVE URINE CULTURE URINALYSIS WITH REFLEX CULTURE AND MICROSCOPIC Narrative: The following orders were created for panel order Urinalysis with Reflex Culture and Microscopic. Procedure Abnormality Status --------- ------ Urinalysis with Reflex C...[[id number]] Abnormal Final result Extra Urine Waters Tube[[id number]] In process Please view results for these tests on the individual orders. EXTRA URINE WATERS TUBE CT abdomen pelvis wo IV contrast Final Result Bilateral nonobstructing renal calculi, greater on the right. No obstructive uropathy identified. Possible right adrenal adenoma. MACRO: None Signed by: Federica Sutherland 08/26/2023 9:20 PM Dictation workstation: [id number] Procedures Medical Decision Making Patient is a 27-year-old female who presents to the emergency department with a chief complaint of bilateral flank pain, worse to her left flank, and urinary symptoms. Reports that symptoms were similar to her previous UTI but also similar to a kidney stone. Patient's urinalysis is consistent with a urinary tract infection. She was given IV Rocephin. CT scan of the abdomen pelvis shows bilateral nonobstructing renal calculi with no obstructive uropathy. Patient has a noted possible right adrenal adenoma which she was made aware of and instructed to follow-up with her family physician. Patientdoes have leukocytosis of 12.9. She is afebrile, nontoxic-appearing, is not vomiting and able to marty erate p.o. medications. Patient will be discharged home on p.o. antibiotics. Urine will be sent forculture and she was instructed to return immediately for any new or worsening symptoms. She does verbalize understanding and feels comfortable with plan of discharge. Amount and/or Complexity of Data Reviewed Labs: ordered. Decision-making details documented in ED Course. Radiology: ordered. Decision-making details documented in ED Course. Risk Prescription drug management. Diagnoses as of 08/26/232209 Urinary tract infection without hematuria, site unspecified Flank pain Adrenal adenoma, unspecified laterality Renal calculi Wilver Tarango PA-C 08/26/232209 [facility] Work Phone: 1(658) 349-576002-04-2024 Reason for referral (narrative)* Consultation (Routine) - Authorized Specialty Diagnoses / Procedures Referred By Dave rocha Referred To Contact Family Medicine / Primary Care Wilver Tarango PA-C [address] [place] [address] Referral ID Status Reason Start Date Expiration Date Visits Requested Visits Authorized [id number] Authorized Specialty Services Required 08/26/2023 08/25/2024 1 1 [facility] Work Phone: [phone]) 396-631812-14-2023 Miscellaneous Notes* Telephone Encounter - Debby Reeves MD - 07/05/2023 2:24 PM EST PDMP website checked and validated. All prescriptions have been APPROPRIATELY filled. No suspiciousactivity was identified. 07/05/2023 by Debby Reeves MD * Telephone Encounter - Jo Ann Helm LPN - 07/05/2023 1:37 PM EST Patient has been identified by name and date of : Yes Patient phones for refill(s): Requested Prescriptions Pending Prescriptions Disp Refills lisdexamfetamine (VYVANSE) 40 mg capsule 30 capsule 0 Sig: Take 1 capsule by mouth once daily for 30 days. Date of last office visit in primary care: 06/13/2023 Date of next office visit in primary care:07/03/2023 Please advise. Thank you. Jo Ann Helm LPN. documented [facility] this [facility] Miscellaneous Notes* Telephone Encounter - Rivas Lund LISW - 07/04/2023 1:55 PM EST BEHAVIORAL HEALTH SOCIAL WORK CONSULT NOTE Service Date: July 04, 2023 Patient was identified by name and Patient: Fadumo Hensley [address] [phone] (home) [phone] (cell) PCP: Debby Reeves MD [address] [id number] Patient identified for [facility] from: PCP Reason for referral: Resources Behavioral Health Resources: Psychiatry med management [facility] encounter type: Telephone Encounter Assessment: Referral made to engage patient seeking psychiatry. [facility] reviewed patient's chart and insurance to identify resources. Patient stated they are seeking psychiatry through [facility]. Patient denies suicidal or homicidal ideation.. [facility] scheduled a mental health assessment for 07/30/23, and [facility] informed patient if she did not show for the scheduled appointment there would be a no show fee. Patient was appreciative for the information. Medications: Current Outpatient Medications on File Prior to Visit Medication Sig cloNIDine HCl (CATAPRES) 0.1 mg tablet Take 1 tablet by mouth once daily as needed (Anxiety). lisdexamfetamine (VYVANSE) 40 mg capsule Take 1 capsule by mouth once daily for 30 days. SUMAtriptan (IMITREX) 100 mg tablet Take 1 tablet (100 mg) by mouth as needed. TAKE ONE (1) TABLET EVERY 2 HOURS WITH A MAXIMUM DOSE OF 200 MG PER DAY NEEDED FOR HEADACHE levonorgestrel (LILETTA) 20.4 mcg/24 hrs (8 yrs) 52 mg IUD 1 Each by INTRAUTERINE route as directed. methocarbamol (ROBAXIN) 500 mg tablet Take 500 mg by mouth four times daily. tiZANidine (ZANAFLEX) 4 mg tablet Take 1 tablet by mouth at bedtime as needed (muscle spasms). albuterol HFA (PROAIR HFA) 90 mcg/actuation inhaler Inhale 2 Puffs as instructed every 4 hours as needed for wheezing/shortness of breath. Used for seasonal allergies No current facility-administered medications on file prior to visit. Curbside: No Screening Tools: No Substance Use / Abuse: No Outcome / Plan / Referrals: Attempts to Outreach: 1 attempt Referral made: Psychiatry - Internal Psychiatry-Internal referral type: Medication Management Final Disposition: Resources given Patient Discharged?: No Patient reported that caregiver was able to meet their needs today?: Yes Internal Referrals : Yes -Patient advised of treatment options available at [facility]. Patient was informed that they will be moving on for further evaluation if seeking treatment within the [facility] system. Reason for External Referrals : N/A Intervention: Supportive Listening Scheduled Assessment Offered virtual visit Resources Provided: Medication Management Further evaluation and assessment Virtual Visit Time Spent: 15 minutes SANDY Lazo documented in this [facility]12[facility] Instructions* Patient Instructions* Keaton Tracy MD - 07/03/2023 3:15 PM EST My office number is [phone]. They will be able to assist in scheduling an office visit with one of my PA/[employer] colleagues to meet the STACY requirements for prescribing ADHD medications. Schedule with Koki Wheatley, Hilda Marino or Phyllis Serra My office address is: [address] , [place] [address] Send me a ilustrum message to let me know when you've had the visit. I will review the notes and send in a prescription for medication. Schedule with endocrine weight management. Please call [phone] to schedule your Endocrinology Medical Weight Management appointment or you can self- schedule by logging onto your ilustrum account. documented in this encounterBu[facility]12-12-2023 Nurse Note* Bina Granados RN - 07/03/2023 11:05 AM EST Items addressed in this encounter: Other VV pre check, name and location verified, aware of tele health visit with N Demarcus Granados RN July 03, 2023 11:05 AM 11:05 AM documented in this encounterBu[facility]12-12-2023 History of Present illness Narrative* Keaton Tracy MD - 07/03/2023 10:21 AM EST Telemedicine Visit - Distance Health Virtual Visit Note Patient seen on ilustrum video visit platform. Location of patient: [place] I have communicated my name and active licensure. The patient's identity and physical location wereverified at the time of this visit. Either the patient or their legal artist representative has been informed of the risks and benefits of -- and alternatives to -- treatment through a remote evaluation andconsents to proceed with the evaluation remotely. History of Present Illness Patient presents to establish care 1) ADHD - Vyvanse 2) Panic attacks - Previous PCP had wanted to start Prozac, but patient did not want to take a daily medication. She has taken Clonidine (clarified not Klonopin) in the past for panic and it helped. Would like to see psychiatry. Side effects with Hydroxyzine. Denies any drug use. She admits to using drugs when younger. 3) Migraine - Prn triptan. Sees neurology. 4) Hep C - Last RNA negative. 5) H/o abnormal pap - Sees research recruiter 6) Smoker - Pre-contemplative. 7) Chronic back pain - Muscle relaxants. 8) Overweight - GLP1as not covered. Did not tolerate Topamax. Did not have effect with Wellbutrin. We could consider Metformin. Adipex is contraindicated by use of Vyvanse. 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 Supplies and referrals ordered. Sulma Bartholomew APRN.CNM Generalized anxiety disorder GERD (gastroesophageal reflux disease) Hepatitis C 2017 2018 cured after medication course. High grade squamous intraepithelial cervical dysplasia History of suicide attempt 2014 cutting wrist Juvenile osteochondrosis of lower extremity, excluding foot 2004, resolved Migraine headache 05/26/2011 other Sever's Disease, 2006, resolved Other acne 01/27/2010 Pain in joint, site unspecified AC joint tear, 2005 Patient requested diagnostic testing 04/18/2012 04/18/2012 Patient desires early screening in with sequential testing. Poor support system complicating 04/18/2012 04/18/2012The father of the baby is aware that she is , but does not wish to be involved. Patient states her parents are very supportive. Patient is tearful for some of this visit today due to the father of the baby. She states he has put pressure on her in the past to have an , butshe does not wish to do that. Patient was given a brochure on the care center and WIC. depression PTSD (post-traumatic stress disorder) Rosacea 01/27/2010 Rubella non-immune status 04/22/2012 Skin cancer Teen 04/22/2012 July 04, 2012 Flu vaccine given Telangiectasia 01/27/2010 Tobacco use disorder Current Outpatient Medications on File Prior to Visit Medication Sig FLUoxetine (PROZAC) 20 mg capsule Take 1 capsule by mouth once daily for 14 days, THEN 2 capsules once daily. lisdexamfetamine (VYVANSE) 40 mg capsule Take 1 capsule by mouth once daily for 30 days. SUMAtriptan (IMITREX) 100 mg tablet Take 1 tablet (100 mg) by mouth as needed. TAKE ONE (1) TABLET EVERY 2 HOURS WITH A MAXIMUM DOSE OF 200 MG PER DAY NEEDED FOR HEADACHE levonorgestrel (LILETTA) 20.4 mcg/24 hrs (8 yrs) 52 mg IUD 1 Each by INTRAUTERINE route as directed. methocarbamol (ROBAXIN) 500 mg tablet Take 500 mg by mouth four times daily. tiZANidine (ZANAFLEX) 4 mg tablet Take 1 tablet by mouth at bedtime as needed (muscle spasms). albuterol HFA (PROAIR HFA) 90 mcg/actuation inhaler Inhale 2 Puffs as instructed every 4 hours as needed for wheezing/shortness of breath. Used for seasonal allergies No current facility-administered medications on file prior to visit. Social History Tobacco Use Smoking status: Former Packs/day: 1.00 Years: 9.00 Additional pack years: 0.00 Total pack years: 9.00 Types: Cigarettes Smokeless tobacco: Current Tobacco comments: Vapes Vaping Use Vaping Use: current everyday user Substances: Nicotine Devices: Pre-filled or refillable cartridge Substance Use Topics Alcohol use: Not Currently Drug use: Yes Types: Heroin, Marijuana Comment: Patient states I have used multiple drugs in the past Video Exam (Examination performed via Video enabled technology) General appearance: Alert, oriented, pleasant, in NAD :Yes Ill appearing :No Lethargic appearing :No Respiratory distress :No ASSESSMENT/PLAN: 1. Adult ADHD - ICD9: 314.01, ICD10: F90.9 (primary diagnosis) Discussed STACY requirements for prescribing of stimulant medications. She will need to be seen by darren of my colleagues in-person. Patient is very open and honest about her history of drug use. She has been sober for many years. There has been no evidence of misuse of Vyvanse, which has historically controlled her ADHD symptoms very well. - CONSULT TO PRIMARY CARE BEHAVIORAL HEALTH ADULT 2. Panic disorder - ICD9: 300.01, ICD10: F41.0 Patient reports past improvement with Clonidine. I have clarified that the medication was not Klonopin. I have seen Clonidine used off-label for mental health complaints. We would need to monitor BP.OK to try prn for panic. - CONSULT TO PRIMARY CARE BEHAVIORAL HEALTH ADULT - CLONIDINE HCL 0.1 MG TABLET 3. Bulging of intervertebral disc between L4 and L5 and L5 and S1 - ICD9: 722.52, ICD10: M51.36 Sees specialist 4. History of hepatitis C - ICD9: V12.09, ICD10: Z86.19 Last RNA negative 5. High grade squamous intraepithelial lesion (HGSIL) on cytologic smear of cervix - ICD9: 795.04, ICD10: R87.613 Seeing research recruiter 6. Smoking - ICD9: 305.1, ICD10: F17.200 Precontemplative 7. Need for lipid screening - ICD9: V77.91, ICD10: Z13.220 - LIPID PANEL BASIC 8. Diabetes mellitus screening - ICD9: V77.1, ICD10: Z13.1 - COMP METABOLIC PANEL - HGB A1C 9. Overweight GLP1a not covered. Side effects with Topamax. No response to Wellbutrin. Adipex contraindicated by Vyvanse use. We could try Metformin. Check labs first. Consult to endo weight mgmt. Keaton Tracy MD documented in this [facility]11-22-2023 History of Present illness Narrative* Debby Reeves MD - 06/13/2023 1:27 PM EST Chief Complaint Patient presents with: ED Follow-up HPI Fadumo Hensley is a 27 year old female who presents here today for ER Follow Up.. Patient had VV with me on 06/04 for ER visit at [facility] on 06/03 for complaint of tinglingin her hand, and right side of face along with chest pain. Recommended she follow up in office for additional workup and to return to the ED with red flag symptoms. She was evaluated at [facility] ED on 06/04 for complaint of persistent midsternal chest pain associated with mild SOB and high BP on home cuff. VSS. Cardiac workup negative. D Dimer was elevated so CTA chest was obtained which was negative for PE. EKG showed sinus tachycardia @ 101 bpm with RBBB. CBC andBMP WNL. Discharged home with recommendation to follow up in 3-5 days with our office if symptoms did not improve. No change in regimen. Today, states that she has not head any chest pain since discharge. Has not had any recurrent cramping/numbness/tingling like when she first went to the ER. She is worried her blood sugar could have been low and wants checked for DM. Had gestational diabetes and a family history. Anxiety and depression symptoms uncontrolled since her mom got sick and about 3 months ago. Has been on celexa, zoloft, and clonidine in the past. Also states that she was on vistaril in [place] and it made her symptoms worse. Seeing therapist once a week for the last 2 months. Anxiety: Admits to excessive worrying, inability to control worrying, racing thoughts, irritability, insomnia, feeling overwhelmed, panic symptoms. Feeling more down and depressed, but thinks this is related to mother passing. More concerned with anxiety symptoms. Patient requesting referral to dietitian to help with weight loss. Believes she eats healthy diet and exercise and is still struggling to lose weight. Past medical history, appointments, medications, allergies reviewed. 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 Supplies and referrals ordered. Sulma Bartholomew APRN.JULISSA Generalized anxiety disorder GERD (gastroesophageal reflux disease) Hepatitis C 2017 2018 cured after medication course. High grade squamous intraepithelial cervical dysplasia History of suicide attempt 2014 cutting wrist Juvenile osteochondrosis of lower extremity, excluding foot 2004, resolved Migraine headache 05/26/2011 other Sever's Disease, 2006, resolved Other acne 01/27/2010 Pain in joint, site unspecified AC joint tear, 2005 Patient requested diagnostic testing 04/18/2012 04/18/2012 Patient desires early screening in with sequential testing. Poor support system complicating 04/18/2012 04/18/2012The father of the baby is aware that she is , but does not wish to be involved. Patient states her parents are very supportive. Patient is tearful for some of this visit today due to the father of the baby. She states he has put pressure on her in the past to have an , butshe does not wish to do that. Patient was given a brochure on the care center and WIC. depression PTSD (post-traumatic stress disorder) Rosacea 01/27/2010 Rubella non-immune status 04/22/2012 Skin cancer Teen 04/22/2012 July 04, 2012 Flu vaccine given Telangiectasia 01/27/2010 Tobacco use disorder Previous Surgical History PAST SURGICAL HISTORY Procedure Laterality Date CERVIX UTERI CONIZA LP ELCTRO EXCI 05/11/2023 at [facility]Dr. Millan PAST SURGICAL HISTORY OF 01/01/2010 Removal of 4 Mereta Teeth PAST SURGICAL HISTORY OF basal cell carcinoma removed from scalp Family History FAMILY HISTORY Problem Relation Age of Onset Skin Cancer Mother Hypertension Mother Heart Failure Mother Liver Cancer Mother 66 Heart Father TRIPLE BYPASS SURGERY Hypertension Father Diabetes Father Diabetes Sister No Known Problems Sister No Known Problems Sister No Known Problems Brother No Known Problems Brother No Known Problems Brother Heart Maternal Grandmother from heart problems Heart Maternal Grandfather from heart problems Cancer Maternal Grandfather lung Hypertension Maternal Grandfather No Known Problems Daughter Patient Allergies ALLERGIES Allergen Reactions Zyrtec [Cetirizine * Intolerance tremors Current Medications Current Outpatient Medications on File Prior to Visit Medication Sig lisdexamfetamine (VYVANSE) 40 mg capsule Take 1 capsule by mouth once daily for 30 days. SUMAtriptan (IMITREX) 100 mg tablet Take 1 tablet (100 mg) by mouth as needed. TAKE ONE (1) TABLET EVERY 2 HOURS WITH A MAXIMUM DOSE OF 200 MG PER DAY NEEDED FOR HEADACHE levonorgestrel (LILETTA) 20.4 mcg/24 hrs (8 yrs) 52 mg IUD 1 Each by INTRAUTERINE route as directed. methocarbamol (ROBAXIN) 500 mg tablet Take 500 mg by mouth four times daily. tiZANidine (ZANAFLEX) 4 mg tablet Take 1 tablet by mouth at bedtime as needed (muscle spasms). albuterol HFA (PROAIR HFA) 90 mcg/actuation inhaler Inhale 2 Puffs as instructed every 4 hours as needed for wheezing/shortness of breath. Used for seasonal allergies No current facility-administered medications on file prior to visit. Social History Social History Tobacco Use Smoking status: Former Packs/day: 1.00 Years: 9.00 Additional pack years: 0.00 Total pack years: 9.00 Types: Cigarettes Smokeless tobacco: Current Tobacco comments: Vapes Vaping Use Vaping Use: current everyday user Substances: Nicotine Devices: Pre-filled or refillable cartridge Substance Use Topics Alcohol use: Not Currently Drug use: Yes Types: Heroin, Marijuana Comment: Patient states I have used multiple drugs in the past Review of Symptoms REVIEW OF SYSTEMS GENERAL: No weight loss, malaise or fevers RESPIRATORY: Negative for cough, hemoptysis, wheezing, COPD, dyspnea or shortness of breath CARDIOVASCULAR: Negative for chest pain, leg swelling, hypertension, CHF or palpitations GI: No nausea, vomiting, or diarrhea ENDOCRINE: Negative for cold or heat intolerance, polyuria, polydipsia and goiter EXAM: BP 120/80 Resp 16 Ht 170.2 cm (5' 7) LMP 02/13/2023 (Within Days) BMI 28.04 kg/m General Appearance: Well appearing, alert, in no acute distress, well-hydrated, well nourished.. Skin: Skin color, texture, turgor normal, no suspicious rashes or lesions. Lungs: Lungs clear to auscultation. No wheezing, rhonchi, rales.. Heart: RRR without murmur, gallop, or rubs. No ectopy. Health Maintenance List Pneumococcal Vaccine(1 - PCV) Never done HPV Vaccine(3 - Risk 3-dose series) due on 2010 Spirometry Never done Influenza Vaccine(1) due on 03/23/2023 Covid-19 Vaccine(2 - 2022- season) due on 03/23/2023 Depression Assessment due on 07/22/2023 Annual PCP Team Chronic Disease Visit due on 06/04/2024 Pap Testing due on 12/27/2025 DTaP,Tdap,Td Vaccine(8 - Td or Tdap) due on 10/18/2032 Hepatitis B Vaccine Completed Hepatitis C Screening Completed HIV Screening Completed ASSESSMENT/PLAN: 1. Chest pain, unspecified type - ICD9: 786.50, ICD10: R07.9 (primary diagnosis) Resolved. Suspect 2/2 anxiety. Red flags for re-assessment reviewed with patient in detail. 2. Numbness and tingling of right side of face - ICD9: 782.0, ICD10: R20.0, R20.2 Resolved. - HGB A1C 3. Anxiety with depression - ICD9: 300.4, ICD10: F41.8 Uncontrolled anxiety and depression. Will start on prozac and have patient follow up in 6 weeks to recheck symptoms. Obtain labs as ordered. - FLUOXETINE 20 MG CAPSULE - TSH BLD 4. Overweight with body mass index (BMI) of 28 to 28.9 in adult - ICD9: 278.02, V85.24, ICD10: E66.3, Z68.28 Discussed healthy diet and exercise. Refer to dietitian as discussed. - CONSULT TO NUTRITION THERAPY Debby Reeves MD [facility] History of Present illness Narrative* Carmelita Millan MD - 06/06/2023 2:03 PM EST DATE OF SERVICE: 06/06/2023 PROBLEM: Fadumo Hensley presents for postop visit. SURGERY & DATE: 05/11/23 LEEP and IUD insertion PATHOLOGY: high grade dysplasia SUBJECTIVE/INTERVAL HISTORY: Fadumo Hensley reports that she feels well. No fever or chills. no pain. Some increased bleeding this week, thinks she is on menses. Spotting up until then. . OBJECTIVE: PELVIC: cervix well healed. IUD sstrings 3cm, trimmed to 2 cm. Physiological mucous /w blood tingeddischarge L. ASSESSMENT: follow up high grade cervical dysplasia and IUD check PLAN: 1. Discussed results of pathology and implications with patient. 2. Postop restrictions reviewed. imp;ortance of f/u reviewed, f/u for HPV in 6 months D/w her bleeding expectations w/ IUD, return prn Carmelita Millan MD documented [facility] this [facility]11-15-[facility]23 Miscellaneous Notes* Telephone Encounter - Aliyah Khoury RN - 06/06/2023 12:44 PM EST Thanks. Patient coming at 2 * Telephone Encounter - Carmelita Millan MD - 06/06/2023 12:38 PM EST No problem. I had a cancellation this afternoon at 2 would that work? Or ok to add her at 340 today. Carmelita Millan MD * Telephone Encounter - Aliyah Khoury RN - 06/06/2023 12:36 PM EST Patient missed her Post Op today. States she had forgotten. Apologetic on the phone. She's off on Wednesdays or could do an early afternoon as her lunch hour. Please advise if patient can be added back on and when. Thank you. Aliyah Khoury RN documented [facility]11-[facility]-2023 Miscellaneous Notes* Telephone Encounter - Sienna Hidalgo LPN - 06/05/2023 2:35 PM EST Patient notified. Voices understanding. Sienna Hidalgo LPN * Telephone Encounter - Debyb Reeves MD - 06/05/2023 2:12 PM EST Continue current regimen. Keep follow up as scheduled. * Telephone Encounter - Maria Antonia Olsen LPN - 06/05/2023 12:29 PM EST Phoned patient to schedule for follow up appt. During this time she reported she went to ER again last evening because she reports she found her BP cuff and BP was like 167/something which had gone up from 1st time she checked it. Reports D-dimer was elevated but Chest CT didn't show anything. Patient asking ok to continue all of her medications? Records pulled and placed on provider's desk. documented in this [facility]11-[facility]23 Discharge summary Author Ammon Londono [facility] June 04, 2023 10:30pm Note Date/Time June 04, 2023 7:06pm [facility] Medical Records Department [address] [place] [address] Emergency Department Summary 06/04/23 MR#: [id number] Acct: [id number] Name: FADUMO HENSLEY Rep #:[id number] : 1995 27 From: Ammon Londono MD PCP: Dr. Joe Reeves MD Status :REG ER Location: ED HPI <ROSETTE Cottrell - Last Filed: 06/04/23 20:57> History of Present Illness Chief Complaint: Chest Pain Narrative Narrative: 27-year-old female states yesterday she was driving when her head felt fuzzy andher left hand and face cramped. She pulled over needed candy bar because she had not eaten much that day. Those symptoms seem to improve but then she developed midsternal chest pain. She went to [facility] and had a normal EKG and chest x-ray. She states today she still has constant midsternal chest pain which becomes sharp with no clear trigger. She is mildly short of breath. No nausea vomiting or diaphoresis. No radiation of pain. She has had a mild dry cough recently. She vapes. Has no cardiopulmonary history. She is on oral control after a LEEP procedure several weeks ago [facility] <ROSETTE Cottrell - Last Filed: 06/04/23 20:57> [facility] Medical History ADHD Anxiety Asthma Depression Gastric reflux Gestational diabetes Hepatitis History of edema History of Mohs micrographic surgery for skin cancer History of pain when walking History of steroid therapy Hypotension Lower back pain depression Skin cancer Substance abuse Vapes nicotine containing substance Wears partial dentures Home Medications lisdexamfetamine 30 mg capsule (Vyvanse) 30 mg PO DAILY 03/08/23 [History Last Taken Unknown] albuterol 90 mcg/actuation aerosol inhaler 90 mcg inhalation PRN PRN ASTHMA 03/19/23 [History Last Taken Unknown] methocarbamol 750 mg tablet 750 mg PO TID 03/19/23 [History Last Taken Unknown] tizanidine 4 mg capsule 4 mg PO QHS 03/19/23 [History Last Taken Unknown] ibuprofen 600 mg tablet 600 mg PO Q6H PRN Pain 20 days #30 TABLETS 05/11/23 [Rx Last Taken Unknown] Allergy/AdvReac Type Severity Reaction Status Date / Time cetirizine [From [facility]] Allergy difficulty Verified 06/04/23 18:45 breathing, racing heart Surgical History Hx of wisdom tooth extraction Social History Smoking Status: Current every day smoker tobacco type: cigarettes and e- cigarettes alcohol intake: never details: Occasionally substance use type: does not use ROS <ROSETTE Cottrell - Last Filed: 06/04/23 20:57> ROS ED ROS Narrative Constitutional: Negative for fever, chills, malaise. CVS: Positive for chest pain. Negative for palpitations, c syncope. Respiratory: Positive for shortness of breath, cough. GI: Negative for abdominal pain, nausea, vomiting. Neuro: Negative for headache. EXAM <ROSETTE Cottrell - Last Filed: 06/04/23 20:57> Physical Exam Narrative Exam Narrative: CONST: Patient sitting in no acute distress. EYES: Normal inspection. NECK: Normal inspection. RESP: No respiratory distress, CTAB. CVS: Regular rate and rhythm, no murmur, no gallop. ABD: Soft and nontender, no guarding or rebound, nondistended, no hepatosplenomegaly. SKIN: Color normal, no rash, warm, dry, intact. EXTREMITIES: Normal appearance, no pedal edema. NEURO: Oriented x4. PSYCH: Normal affect. Const Vital Signs: 06/04/23 17:57 06/04/23 18:39 06/04/23 18:39 Temperature 98.6 F Temperature Source Temporal Pulse Rate 96 88 Respiratory Rate 18 14 Respiratory Effort Blood Pressure 122/79 H 117/82 H Blood Pressure Mean 93 93 Pulse Ox 99 99 98 Oxygen Delivery Method Room Air Room Air Room Air 06/04/23 18:40 06/04/23 21:33 06/04/23 20:30 Temperature Temperature Source Pulse Rate 82 89 Respiratory Rate 18 18 Respiratory Effort Normal Non-Labored Blood Pressure 109/69 111/71 Blood Pressure Mean 82 84 Pulse Ox 100 100 Oxygen Delivery Method Room Air Room Air <Ammon Londono MD - Last Filed: 06/04/23 22:30> Physical Exam Const Vital Signs: 06/04/23 17:57 06/04/23 18:39 06/04/23 18:39 Temperature 98.6 F Temperature Source Temporal Pulse Rate 96 88 Respiratory Rate 18 14 Respiratory Effort Blood Pressure 122/79 H 117/82 H Blood Pressure Mean 93 93 Pulse Ox 99 99 98 Oxygen Delivery Method Room Air Room Air Room Air 06/04/23 18:40 06/04/23 21:33 06/04/23 20:30 Temperature Temperature Source Pulse Rate 82 89 Respiratory Rate 18 18 Respiratory Effort Normal Non-Labored Blood Pressure 109/69 111/71 Blood Pressure Mean 82 84 Pulse Ox 100 100 Oxygen Delivery Method Room Air Room Air MDM <ROSETTE Cottrell - Last Filed: 06/04/23 20:57> MDM MDM Narrative Medical decision making narrative: Patient presents with chest pain that started yesterday and today is constant. She appears well and nontoxic. Vital signs stable. She has normal cardiopulmonary exam. Abdomen is soft and nontender. No lower extremity edema or calf tenderness is present. Differential includes ACS, PE, GERD, costochondritis, musculoskeletal among others. Cardiac work-up plus D-dimer wasordered since she is on oral control. EKG is sinus tachycardia at 1 1 bpmwith RBBB. No acute ischemic changes. CBC, BMP, troponin are all WNL. CXR is negative. D-dimer is elevated so CTA is pending. Lab Data Attestation: I reviewed the patient's lab results. Labs: Laboratory Results - last 24 hr 06/04/23 06/04/23 18:50 21:35 WBC 9.8 RBC 4.34 Hgb 13.1 Hct 37.9 MCV 87.3 MCH 30.2 MCHC 34.6 RDW Std Deviation 38.4 RDW Coeff of Clarence 11.9 Plt Count 309 MPV 9.9 Immature Gran % (Auto) 0.200 Neut % (Auto) 57.0 Lymph % (Auto) 34.8 [place] % (Auto) 5.9 Eos % (Auto) 1.8 Baso % (Auto) 0.3 Absolute Neuts (auto) 5.6 Absolute Lymphs (auto) 3.40 Nucleated RBC % 0 D-Dimer Quant (PE/DVT) 0.53 H* Sodium 140 Potassium 3.9 Chloride 107 Carbon Dioxide 27.0 Anion Gap 6 BUN 13 Creatinine 0.81 Estim Creat Clear Calc 95.94 Est GFR (MDRD) Af Amer 107 Est GFR (MDRD) Non-Af 88 BUN/Creatinine Ratio 16.0 Glucose 99 Calcium 9.0 Troponin I High Sens 4 5 Radiography Diagnostic Testing: Clinical Impression(s) from Imaging Studies Chest X-Ray 06/04/23 18:53 IMPRESSION: Normal x-ray examination of the chest. Electronically Signed: Thanh Salinas MD at 19:10 EST Reading Location ID and State: [employer] , Service support , Chest CTA 06/04/23 20:03 IMPRESSION: Normal CTA chest examination, without a demonstrated pulmonary embolism or arterial dissection. Electronically Signed: Thanh Salinas MD at 22:02 EST Reading Location ID and State: [employer] , Service support , ED attending interpretation of 1-view chest x-ray shows normal heart size, no acute infiltrate, edema, or effusion. EKG Initial EKG: Attestation: I personally reviewed and interpreted this EKG as follows: Interpretation: No Acute Injury Pattern and Sinus Tachycardia Comments: Sinus tachycardia at 101 bpm Right bundle branch block No STEMI criteria <Ammon Londono MD - Last Filed: 06/04/23 22:30> [facility] MDM Narrative Medical decision making narrative: Patient presents with chest pain that started yesterday and today is constant. She appears well and nontoxic. Vital signs stable. She has normal cardiopulmonary exam. Abdomen is soft and nontender. No lower extremity edema or calf tenderness is present. Differential includes ACS, PE, GERD, costochondritis, musculoskeletal among others. Cardiac work-up plus D-dimer wasordered since she is on oral control. EKG is sinus tachycardia at 1 1 bpmwith RBBB. No acute ischemic changes. CBC, BMP, troponin are all WNL. CXR is negative. D-dimer is elevated so CTA is pending. Dr. Londono: I have personally performed a face to face assessment of the patient and have reviewed the BERNA Note. I performed a substantive portion of the visit including all aspects of the following. My ely findings include: History is chest pain yesterday, seen in outside facility where EKG and chest x- ray were normal. Patient plans on following up with primary care provider, but noticed that her blood pressure started elevating to as high as 160 systolic. She presents with chest pain since yesterday. Exam is afebrile. Vital signs noted. Regular rate and rhythm. Lungs clear to auscultation bilaterally. Abdomen soft and nontender. Neurological examinationnonfocal and nonlateralizing. Medical Decision Making: In the differential diagnosis would be ACS versus PE versus GERD versus costochondritis or musculoskeletal chest pain. Check EKG. EKG obtained and interpreted by myself independently as sinus tachycardia at 101bpm without ectopy or acute ST changes. No STEMI. Check labs. Elevated D-dimer. Check CTA, negative for pulmonary embolism or dissection. I feel she bedischarged safely home with follow-up to her primary care provider. Her blood pressure is normalized. Return instructions reviewed. Disposition is discharged home in stable condition. Other additions or changes: [None] History & Record Review Discussion w/independent historian: Patient Additional record(s) reviewed:: Prior ED visit Lab Data Labs: Laboratory Results - last 24 hr 06/04/23 06/04/23 18:50 21:35 WBC 9.8 RBC 4.34 Hgb 13.1 Hct 37.9 MCV 87.3 MCH 30.2 MCHC 34.6 RDW Std Deviation 38.4 RDW Coeff of Clarence 11.9 Plt Count 309 MPV 9.9 Immature Gran % (Auto) 0.200 Neut % (Auto) 57.0 Lymph % (Auto) 34.8 [place] % (Auto) 5.9 Eos % (Auto) 1.8 Baso % (Auto) 0.3 Absolute Neuts (auto) 5.6 Absolute Lymphs (auto) 3.40 Nucleated RBC % 0 D-Dimer Quant (PE/DVT) 0.53 H* Sodium 140 Potassium 3.9 Chloride 107 Carbon Dioxide 27.0 Anion Gap 6 BUN 13 Creatinine 0.81 Estim Creat Clear Calc 95.94 Est GFR (MDRD) Af Amer 107 Est GFR (MDRD) Non-Af 88 BUN/Creatinine Ratio 16.0 Glucose 99 Calcium 9.0 Troponin I High Sens 4 5 Radiography Diagnostic Testing: Clinical Impression(s) from Imaging Studies Chest X-Ray 06/04/23 18:53 IMPRESSION: Normal x-ray examination of the chest. Electronically Signed: Thanh Salinas MD at 19:10 EST Reading Location ID and State: [employer] [employer] , Service support , Chest CTA 06/04/23 20:03 IMPRESSION: Normal CTA chest examination, without a demonstrated pulmonary embolism or arterial dissection. Electronically Signed: Thanh Salinas MD at 22:02 EST Reading Location ID and State: [employer] , Service support , Discharge Plan Triage Chief Complaint: Chest Pain ED Midlevel Provider: Elma Gomez ED Provider: Ammon Londono Dx/Rx/DC Orders Clinical Impression: Elevated d-dimer, Chest pain Instructions: ED Chest Pain, Noncardiac, ED Pain, Acute, Uncertain Cause Prescriptions: No Action lisdexamfetamine [Vyvanse] 30 mg capsule 30 mg PO DAILY Patient Comments: TAKE 1 CAPSULE BY MOUTH ONCE DAILY FOR 14 DAYS. methocarbamol 750 mg tablet 750 mg PO TID tizanidine 4 mg capsule 4 mg PO QHS albuterol 90 mcg/actuation aerosol 90 mcg inhalation PRN PRN (Reason: ASTHMA) ibuprofen [ibuprofen] 600 mg tablet 600 mg PO Q6H PRN (Reason: Pain) 20 Days Qty: 30 1RF Primary Care Provider: Joe Reeves Referrals: Joe Reeves MD [Primary Care Provider] - 3-5 Days if not improving Disposition Disposition: Home, Self Care What to do if you have Problems For any increased pain, shortness of breath, bleeding, nausea or vomiting, chestpain, or any unexpected problems, contact your Primary Care Provider. Call [facility] ([phone]) or report to the closest Emergency Room. Call 911 if necessary. 06/04/232229 <Electronically signed by Ammon Londono MD> Cosigner Signature (if applicable): 06/04/232056 <Electronically signed by Elma DINERO> CC: Dr. Joe Reeves MD ~ Signed [facility] Work Phone: [phone]) 292-245711-13-2023 History of Present illness Narrative* Debby Reeves MD - 06/04/2023 3:59 PM EST Chief Complaint Patient presents with: ER F/U I have communicated my name and active licensure. The patient's identity and physical location wereverified at the time of this visit. Either the patient or their legal artist representative has been informed of the risks and benefits of -- and alternatives to -- treatment through a remote evaluation andconsents to proceed with the evaluation remotely. HPI Fadumo Hensley is a 27 year old female who presents here today for ER follow up. On today for virtual visit. Patient evaluated at [facility] ER for complaint of tingling in her hand and right side of her face while driving. Stated that she thought she was having low sugar attack and ate a candy bar and symptoms improved. Also noted chest pain and increased stress. Worked up in the ED with negative CXR, EKG, and glucose level (192). Given dose of Ativan in the ED and discharged. Since discharge, has not had any further numbness/tingling. Continues to have chest pain which she describes as soreness in center of her chest. Denies chest pressure, radiation to neck or jaw, palpitations, SOB, lightheadedness, syncope, worsening with exertion, improvement with rest. Has not checked vitals today. Cannot find BP cuff. Not sure if symptoms could be related to anxiety or not. Past medical history, appointments, medications, allergies reviewed. 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 Supplies and referrals ordered. Sulma Bartholomew APRN.JULISSA Generalized anxiety disorder GERD (gastroesophageal reflux disease) Hepatitis C 2017 2018 cured after medication course. High grade squamous intraepithelial cervical dysplasia History of suicide attempt 2014 cutting wrist Juvenile osteochondrosis of lower extremity, excluding foot 2004, resolved Migraine headache 05/26/2011 other Sever's Disease, 2006, resolved Other acne 01/27/2010 Pain in joint, site unspecified AC joint tear, 2005 Patient requested diagnostic testing 04/18/2012 04/18/2012 Patient desires early screening in with sequential testing. Poor support system complicating 04/18/2012 04/18/2012The father of the baby is aware that she is , but does not wish to be involved. Patient states her parents are very supportive. Patient is tearful for some of this visit today due to the father of the baby. She states he has put pressure on her in the past to have an , butshe does not wish to do that. Patient was given a brochure on the care center and WIC. depression PTSD (post-traumatic stress disorder) Rosacea 01/27/2010 Rubella non-immune status 04/22/2012 Skin cancer Teen 04/22/2012 July 04, 2012 Flu vaccine given Telangiectasia 01/27/2010 Tobacco use disorder Previous Surgical History PAST SURGICAL HISTORY Procedure Laterality Date CERVIX UTERI CONIZA ODALYS ELCTRO EXCI 05/11/2023 at [facility]Dr. Millan CERVIX UTERI CONIZA LP ELCTRO EXCI 05/11/2023 INSERTION OF IUD 12/02/2013 INSERTION OF IUD 05/11/2023 Liletta IUD Insertion MIRENA IUD 2019 Removed 12/2021 PAST SURGICAL HISTORY OF 01/01/2010 Removal of 4 Mereta Teeth PAST SURGICAL HISTORY OF basal cell carcinoma removed from scalp Family History FAMILY HISTORY Problem Relation Age of Onset Skin Cancer Mother Hypertension Mother Heart Failure Mother Liver Cancer Mother 66 Heart Father TRIPLE BYPASS SURGERY Hypertension Father Diabetes Father Diabetes Sister No Known Problems Sister No Known Problems Sister No Known Problems Brother No Known Problems Brother No Known Problems Brother Heart Maternal Grandmother from heart problems Heart Maternal Grandfather from heart problems Cancer Maternal Grandfather lung Hypertension Maternal Grandfather No Known Problems Daughter Patient Allergies ALLERGIES Allergen Reactions Zyrtec [Cetirizine * Intolerance tremors Current Medications Current Outpatient Medications on File Prior to Visit Medication Sig SUMAtriptan (IMITREX) 100 mg tablet Take 1 tablet (100 mg) by mouth as needed. TAKE ONE (1) TABLET EVERY 2 HOURS WITH A MAXIMUM DOSE OF 200 MG PER DAY NEEDED FOR HEADACHE levonorgestrel (LILETTA) 20.4 mcg/24 hrs (8 yrs) 52 mg IUD 1 Each by INTRAUTERINE route as directed. methocarbamol (ROBAXIN) 500 mg tablet Take 500 mg by mouth four times daily. lisdexamfetamine (VYVANSE) 40 mg capsule Take 1 capsule by mouth once daily for 30 days. tiZANidine (ZANAFLEX) 4 mg tablet Take 1 tablet by mouth at bedtime as needed (muscle spasms). albuterol HFA (PROAIR HFA) 90 mcg/actuation inhaler Inhale 2 Puffs as instructed every 4 hours as needed for wheezing/shortness of breath. Used for seasonal allergies No current facility-administered medications on file prior to visit. Social History Social History Tobacco Use Smoking status: Former Packs/day: 1.00 Years: 9.00 Additional pack years: 0.00 Total pack years: 9.00 Types: Cigarettes Smokeless tobacco: Current Tobacco comments: Vapes Vaping Use Vaping Use: current everyday user Substances: Nicotine Devices: Pre-filled or refillable cartridge Substance Use Topics Alcohol use: Not Currently Drug use: Yes Types: Heroin, Marijuana Comment: Patient states I have used multiple drugs in the past Review of Symptoms REVIEW OF SYSTEMS See HPI EXAM: LMP 02/13/2023 (Within Days) Patient has not checked vitals General Appearance: Well appearing, alert, in no acute distress, well-hydrated, well nourished.. Chest: no reproducible pain on palpation reported Lungs: breathing easily on room air without cough or wheezing Health Maintenance List Pneumococcal Vaccine(1 - PCV) Never done HPV Vaccine(3 - Risk 3-dose series) due on 2010 Spirometry Never done Influenza Vaccine(1) due on 03/23/2023 Covid-19 Vaccine(2 - 2022- season) due on 03/23/2023 Depression Assessment due on 07/22/2023 Annual PCP Team Chronic Disease Visit due on 03/21/2024 Pap Testing due on 12/27/2025 DTaP,Tdap,Td Vaccine(8 - Td or Tdap) due on 10/18/2032 Hepatitis B Vaccine Completed Hepatitis C Screening Completed HIV Screening Completed ASSESSMENT/PLAN: 1. Chest pain, unspecified type - ICD9: 786.50, ICD10: R07.9 (primary diagnosis) Advised patient that I can not adequately evaluate chest pain on a virtual visit. Red flags for re-assessment reviewed with patient in detail. Will have her schedule appointment in office for furtherworkup. 2. Numbness and tingling of right side of face - ICD9: 782.0, ICD10: R20.0, R20.2 Resolved. I spent a total of 12 minutes on the date of the service which included preparing to see the patient, [id number] patient care, completing clinical documentation, obtaining and/or reviewing separately obtained history, performing a medically appropriate examination, counseling and educating the pat ient/family/caregiver, ordering medications, tests, or procedures, and communicating with other HCPs (not separately reported). Debby Reeves MD documented in this encounter[facility]11-09-2023 Miscellaneous Notes* Telephone Encounter - Carmelita Millan MD - 05/31/2023 12:01 PM EST ok to add in this wed. or next. Thanks. RLR * Telephone Encounter - Joshua Delgado RN - 05/30/2023 2:56 PM EST Patient called to schedule post op visit because she got a voicemail that she needed to schedule it. She is only off on Wednesdays and the first available is 06/27/23. Asking if it can wait until thenor if she needs to take vacation time to be seen sooner? Joshua Delgado RN documented in this encounterBu[facility]11-08-2023 Instructions* Patient Instructions* Lashon Saba PA-C - 05/30/2023 1:31 PM EST -stop sumatriptan 50 -sumatriptan 100 mg Take 1 tablet (100 mg) by mouth as needed. TAKE ONE (1) TABLET EVERY 2 HOURS WITH A MAXIMUM DOSE OF200 MG PER DAY NEEDED FOR HEADACHE -magnesium oxide 400 mg once a day-available over the counter Schedule MRI brain Follow up 6 months, sooner if needed documented in this encounterBucyrus [facility]11-08-2023 History of Present illness Narrative* Lashon Saba PA-C - 05/30/2023 1:00 PM EST Images from the original note were not included. [facility] Neu[facility] New Patient Evaluation This visit was conducted via virtual platform. I have communicated my name and active licensure. The patient's identity and physical location wereverified at the time of this visit. Either the patient or their legal artist representative has been informed of the risks and benefits of -- and alternatives to -- treatment through a remote evaluation andconsents to proceed with the evaluation remotely. CHIEF COMPLAINT: Headaches Fadumo Hensley is a 27 year old female with history of NOAH ADD GERD Hep C s/p cured after medication BCC s/p surgery 2020 ASCUS with high risk HPV Lumbar DDD, Tobacco use disorder. She is accompanied Consult requested for an opinion regarding headaches. My final impression and recommendations will be communicated back to the requesting physician by way of the shared medical record or fax. HPI: ER visits for CISNEROS, treated with migraine cocktail Today; 05/30/2023; Headache onset in Teens Used to be episodic-few in a year Worsening frequency and intensity in the past one year-during . Used to almost everyday in her , now atleast 1-2/month Lasts a day Back of the head, temples, and holocephalic Pain scale 8/10 Throbbing sensation and aching, can be sharp pains in between No nausea, no vomiting Photophobia+ and Phonophobia+ No visual disturbances. Only one episode of visual disturbance during -was seeing shapes of bright rainbow colors this lasted 20 minutes No ringing in ears, no ear ache, no hearing loss No spinning sensation No facial pain, red eyes, droopy eye lids, no lacrimation, no rhinorrhea. 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 Supplies and referrals ordered. Sulma Bartholomew APRN.JULISSA Generalized anxiety disorder GERD (gastroesophageal reflux disease) Hepatitis C 2017 2018 cured after medication course. High grade squamous intraepithelial cervical dysplasia History of suicide attempt 2015 cutting wrist Juvenile osteochondrosis of lower extremity, excluding foot 2005, resolved Migraine headache 05/26/2011 other Sever's Disease, 2006, resolved Other acne 01/27/2010 Pain in joint, site unspecified AC joint tear, 2005 Patient requested diagnostic testing 04/18/2012 04/18/2012 Patient desires early screening in with sequential testing. Poor support system complicating 04/18/2012 04/18/2012The father of the baby is aware that she is , but does not wish to be involved. Patient states her parents are very supportive. Patient is tearful for some of this visit today due to the father of the baby. She states he has put pressure on her in the past to have an , butshe does not wish to do that. Patient was given a brochure on the care center and WIC. depression PTSD (post-traumatic stress disorder) Rosacea 01/27/2010 Rubella non-immune status 04/22/2012 Skin cancer Teen 04/22/2012 July 04, 2012 Flu vaccine given Telangiectasia 01/27/2010 Tobacco use disorder PAST SURGICAL HISTORY Procedure Laterality Date CERVIX UTERI CONIZA LP ELCTRO EXCI 05/11/2023 at [facility]-Dr. Millan CERVIX UTERI CONIZA LP ELCTRO EXCI 05/11/2023 INSERTION OF IUD 12/02/2013 INSERTION OF IUD 05/11/2023 Liletta IUD Insertion MIRENA IUD 2019 Removed 12/2021 PAST SURGICAL HISTORY OF 01/01/2010 Removal of 4 Mereta Teeth PAST SURGICAL HISTORY OF basal cell carcinoma removed from scalp Current Outpatient Medications Medication Sig levonorgestrel (LILETTA) 20.4 mcg/24 hrs (8 yrs) 52 mg IUD 1 Each by INTRAUTERINE route as directed. methocarbamol (ROBAXIN) 500 mg tablet Take 500 mg by mouth four times daily. lisdexamfetamine (VYVANSE) 40 mg capsule Take 1 capsule by mouth once daily for 30 days. tiZANidine (ZANAFLEX) 4 mg tablet Take 1 tablet by mouth at bedtime as needed (muscle spasms). albuterol HFA (PROAIR HFA) 90 mcg/actuation inhaler Inhale 2 Puffs as instructed every 4 hours as needed for wheezing/shortness of breath. Used for seasonal allergies No current facility-administered medications for this visit. SOCIAL HISTORY REVIEWED: Social History Tobacco Use Smoking status: Former Packs/day: 1.00 Years: 9.00 Additional pack years: 0.00 Total pack years: 9.00 Types: Cigarettes Smokeless tobacco: Current Tobacco comments: Vapes Vaping Use Vaping Use: current everyday user Substances: Nicotine Devices: Pre-filled or refillable cartridge Substance Use Topics Alcohol use: Not Currently Drug use: Yes Types: Heroin, Marijuana Comment: Patient states I have used multiple drugs in the past EXAM: There were no vitals filed for this visit. Exam is observational at best. General Appearance: well appearing, in no acute distress Mental status evaluation during the interview and examination showed normal level of consciousness,orientation, language, memory, praxis, and higher intellectual function Affect: Normal Speech: normal Cranial Nerves: III, IV, -EOMI: full. VII-face is symmetric without evidence of weakness. VIII-hearing intact. Strength: BRAULIO REVIEW OF STUDIES: Blood studies: 11/01/2022 CBC Low RBC and Low hemoglobin noted Low Fe and high TIBC MRI Lumbar and Thoracic spine 04/28/2020:Lumbar spondylosis superimposed on developmentally short pedicles, most significant at L4-5 and L5-S1, as detailed. No significant change since 03/10/2020. Unremarkable MRI thoracic spine. IMPRESSION/PLAN: (G43.109) Migraine with aura and without status migrainosus, not intractable Fadumo Hensley is a 27 year old female with history of NOAH GERD Hep C s/p cured after medication ASCUS with high risk HPV BCC s/p surgery 2020 Lumbar DDD Tobacco use disorder Patient presents to the office today with concerns of episodic migraine. Patient had 1 episode of migraine with visual disturbances lasting for about 20 minutes. She is described it as flashes of shapes of bright rainbow colors. Patient had worsening of her migraine headaches during her last year, with almost every day headaches, treated with PCP with verapamil and sumatriptan 50 mg for as needed use. She reports she had no benefit with verapamil in the past Sumatriptan 50 mg was working well as rescue medication. Limited neuro exam is unremarkable. There is no neuro imaging charts. In view of migraine with aura, worsening every day headaches during her last year, patient in post period we will petition for MRI of the brain with and without contrast to rule out any tumor, inflammation, masses, demyelination, cerebral thrombosis. In view of episodic migraines we will increase sumatriptan from 50 mg to 100 mg as needed at the onset of headaches, may repeat 1 in 2 hours, limit 9/month Discussed nonpharmacological measures including using magnesium oxide 400 mg once a day [id number]. Patient agreeable to the above plan and will schedule MRI, schedule a visit in 6 months, sooner if needed I spent a total of 40 minutes on the date of the service which included preparing to see the patient, [id number] patient care, completing clinical documentation, obtaining and/or reviewing separately obtained history, ordering medications, tests, or procedures, communicating with other HCPs (not separately reported), and independently interpreting results (not separately reported). Lashon Saba PA-C 1. This office note has been dictated and may contain minor typographic errors that escaped review 2. The nursing staff and medical assistants are a major part of YOUR TREATMENT TEAM and will be handling your phone calls and inquiries, if any. Unless explicitly told otherwise at the time of your office visit, your study results and ensuing treatment plans will be discussed during your follow-up appointment. If you do not have a follow-up appointment and wish to discuss any issues directly withme, please feel free to obtain one. 3. It is my practice to not fill disability or any other insurance-related forms/documention. All of the office notes, study results, and other pertinent documentation generated as part of your evaluation will be available to you and to your Primary Care Physician (PCP). Use of this material to complete such forms will be at the discretion of your PCP/referring physicianThere is no data to display for this encounter documented in this encounterBucyrus [facility]11-07-2023 Miscellaneous Notes* Telephone Encounter - Verena Escoto RN - 05/29/2023 10:01 PM EST Reason for Call: Headache Outcome: Advised to be seen within 2-3 days. Caller conferenced to Kate in appointment center foravailable appointment in office of PCP. Caller also given alternate options for care including Express [facility], emergency department for worsening symptoms. Verena Escoto RN Reason for Disposition Headache started during exertion (e.g., sex, strenuous exercise, heavy lifting) Answer Assessment - Initial Assessment Questions 1. LOCATION: Top of head to behind her eyes 2. ONSET: Today 3. PATTERN: Constant 4. SEVERITY: - MODERATE (4-7): interferes with normal activities or awakens from sleep Patient stated she took sumatriptan 2 hours ago 5. RECURRENT SYMPTOM: Stated she do not get them that often. 6. 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 7. MIGRAINE: Yes. 8. HEAD INJURY: Patient denies 9. OTHER SYMPTOMS: N/A 10. : Has IUD. Last period in April 2023. Protocols used: [id number] documented in this encounterBu[facility]rus [facility]11-07-2023 Miscellaneous Notes* Telephone Encounter - Radha Palacio RN - 05/29/2023 4:10 PM EST Pt reports she is out of Imitrex and has a migraine now. Patient has been identified by name and date of : Yes, Provider Dr Reeves Date 05/29/23 Time 1611. Patient phones for refill(s): Requested Prescriptions Pending Prescriptions Disp Refills SUMAtriptan (IMITREX) 50 mg tablet 9 tablet 0 Sig: Take 1 tablet (50 mg) by mouth once daily. prn Date of last office visit in primary care: 03/13/2023 Date of next office visit in primary care: Visit date not found Last 2 Encounter Wt Readings: Date: Wt: 05/09/2023 80.3 kg (177 lb) 03/14/2023 81.6 kg (180 lb) Previous labs/tests for medication: Blood Pressure: BUN (mg/dL) Date Value 03/22/2022 10 12/06/2020 14 Sodium (mmol/L) Date Value 03/22/2022 137 12/06/2020 140 Last 1 Encounter BP Readings: Date: BP: 05/09/2023 112/74 Liver Function: ALT (U/L) Date Value 03/22/2022 15 12/06/2020 20 AST (U/L) Date Value 03/22/2022 17 12/06/2020 21 Please advise. Thank you. Radha Palacio RN. documented in this encounterBucyrus [facility]10-23-2023 History of Present illness Narrative* Carmelita Millan MD - 05/14/2023 10:32 AM EDT Patient underwent a LEEP of the cervix and endocervical curettage for high-grade dysplasia of the cervix on 05/11/[address] [facility] and pathology is pending. She also underwent Liletta IUD insertion for contraception. Patient was discharged home with routine instructions and follow- up. Carmelita Millan MD documented in this encounterBucyrus [facility] Hospital10-20-2023 History and physical note Author Carmelita Millan [facility] May 11, 2023 1:19pm Note Date/Time May 09, 2023 1 :57pm [facility] Medical Records Department [address] [place] [address] History & Physical Exam 05/09/23 1357 MR#: [id number] Acct: [id number] Name: FADUMO HENSLEY Rep #:[id number] : 1995 27 From: Carmelita Millan MD PCP: Dr. Joe Reeves MD Status :[facility] Location: [place] [address] History and Physical Date of Admission: 05/11/23 HPI: The patient is a 27 year old female presenting for pre-operative visit. She is scheduled for LEEP of the cervix and IUD insertion, for contraception management and MANUEL 3 on 05/11/23. Procedure discussed along with risks, benefits and complications. Other alternatives discussed for management. Consent form signed? Yes. ? ? PAST MEDICAL HISTORY PAST MEDICAL HISTORY Diagnosis Date ? ASCUS with positive high risk HPV cervical 09/26/2019 ? Asthma 11/29/2011 ? 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 Bulging of intervertebral disc between L4 and L5 and L5 and S1 09/07/2015 ? Chest pain 04/29/2010 ? Chlamydia infection 09/23/2013 ? Depression 05/26/2011 ? Depression complicating , antepartum 08/02/2012 ? Diet controlled gestational diabetes mellitus (GDM) in second trimester 11/08/2022 ? 11/08/22- 2 levels out of 3 elevated. Supplies and referrals ordered. Sulma Bartholomew APRN.CNM ? Generalized anxiety disorder ? ? GERD (gastroesophageal reflux disease) ? ? Hepatitis C 2018 ? 2019 cured after medication course. ? High grade squamous intraepithelial cervical dysplasia ? ? History of suicide attempt 2014 ? cutting wrist ? 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 Migraine headache 05/26/2011 ? other ? ? Sever's Disease, 2006, resolved ? Other acne 01/27/2010 ? Pain in joint, site unspecified ? ? AC joint tear, 2005 ? Patient requested diagnostic testing 04/18/2012 ? 04/18/2012 Patient desires early screening in with sequential testing. ? Poor support system complicating 04/18/2012 ? 04/18/2012The father of the baby is aware that she is , but does notwish to be involved. Patient states her parents are very supportive. Patient is tearful for some of this visit today due to the father of the baby. She states he has put pressure on her in the past to have an , but she does not wish to do that. Patient was given a brochure on the care center and WIC. ? depression ? ? PTSD (post-traumatic stress disorder) ? ? Rosacea 01/27/2010 ? Rubella non-immune status 04/22/2012 ? Skin cancer ? ? Teen 04/22/2012 ? July 04, 2012 Flu vaccine given ? Telangiectasia 01/27/2010 ? Tobacco use disorder ? ? ? PAST SURGICAL HISTORY PAST SURGICAL HISTORY Procedure Laterality Date ? INSERTION OF IUD ? 12/02/2013 ? MIRENA IUD ? 2019 ? Removed 12/2021 ? PAST SURGICAL HISTORY OF ? 01/01/2010 ? Removal of 4 Mereta Teeth ? PAST SURGICAL HISTORY OF ? ? ? basal cell carcinoma removed from scalp ? ? ? CURRENT MEDICATIONS Current Outpatient Medications Medication Sig Dispense Refill ? methocarbamol (ROBAXIN) 500 mg tablet Take 500 mg by mouth four times daily. ? ? ? lisdexamfetamine (VYVANSE) 40 mg capsule Take 1 capsule by mouth once daily for 30 days. 30 capsule 0 ? tiZANidine (ZANAFLEX) 4 mg tablet Take 1 tablet by mouth at bedtime as needed (muscle spasms). 30 tablet 5 ? SUMAtriptan (IMITREX) 50 mg tablet Take 1 tablet by mouth once daily. prn 9 tablet 0 ? albuterol HFA (PROAIR HFA) 90 mcg/actuation inhaler Inhale 2 Puffs as instructed every 4 hours as needed for wheezing/shortness of breath. Used for seasonal allergies 8.5 g 3 ? levonorgestrel (PLAN B ONE-STEP) 1.5 mg tab Take 1 tablet by mouth one time only for 1 dose. (Patient not taking: Reported on 05/09/2023) 1 tablet 0 ? Etonogestrel-Ethinyl Estradiol (NUVARING) 0.12-0.015 mg/24 hr vaginal ring Use 1 Each vaginally as directed. INSERT ONE(1) RING VAGINALLY AND LEAVE IN PLACE FOR THREE WEEKS, THEN REMOVE FOR 1 WEEK. (Patient not taking: Reported on 05/09/2023) 3 Each 3 ? No current facility-administered medications for this visit. ? ? ALLERGIES: Zyrtec [Cetirizine Hcl] ? PERSONAL HISTORY: SOCIAL HISTORY Social History ? Tobacco Use ? Smoking status: Former ? ? Packs/day: 1.00 ? ? Years: 9.00 ? ? Additional pack years: 0.00 ? ? Total pack years: 9.00 ? ? Types: Cigarettes ? Smokeless tobacco: Current ? Tobacco comments: ? ? Vapes Vaping Use ? Vaping Use: current everyday user ? Substances: Nicotine ? Devices: Pre-filled or refillable cartridge Substance Use Topics ? Alcohol use: Not Currently ? Drug use: Yes ? ? Types: Heroin, Marijuana ? ? Comment: Patient states I have used multiple drugs in the past ? FAMILY HISTORY: FAMILY HISTORY FAMILY HISTORY Problem Relation Age of Onset ? Skin Cancer Mother ? ? Hypertension Mother ? ? Heart Failure Mother ? ? Liver Cancer Mother 66 ? Heart Father ? ? TRIPLE BYPASS SURGERY ? Hypertension Father ? ? Diabetes Father ? ? Diabetes Sister ? ? No Known Problems Sister ? ? No Known Problems Sister ? ? No Known Problems Brother ? ? No Known Problems Brother ? ? No Known Problems Brother ? ? Heart Maternal Grandmother ? ? from heart problems ? Heart Maternal Grandfather ? ? from heart problems ? Cancer Maternal Grandfather ? ? lung ? Hypertension Maternal Grandfather ? ? No Known Problems Daughter ? ? ? REVIEW OF SYMPTOMS: GENERAL: denies fevers or chills ENDOCRINOLOGY: has not been on steroids Cardiology : denies palpitations or chest pain Respiratory: denies SOB or cough Hematology: denies history of prolonged bleeding or easy bruising or VTE Allergy: Denies history of personal or family history of allergy to anesthesia ? PHYSICAL EXAMINATION: ? VITALS: Blood pressure 112/74, pulse 104, resp. rate 16, height 5' 7 (1.702 m),weight 177 lb (80.3 kg), last menstrual period 02/13/2023, not currently . ? GENERAL: The patient is well nourished, well hydrated in no acute distress. , The patient is oriented to time, place, and person. NECK: Supple. No lynphadenopathy, normal thyroid, no thyromegaly. LUNGS: Clear to auscultation bilaterally. no wheezes, rhonchi or rales HEART: Regular rate and rhythm, Normal heart sounds, and No murmurs or gallops ? IMPRESSION: MANUEL 3 of cervix and IUD insertion ? PLAN: The risks/benefits/alternatives and personal involved for the planned LEEP of the cervix and IUD insertion were reviewed with the patient. Her questions were answered to her satisfaction and she desires to proceed. Consentwas signed. I reviewed with her postop instructions and expectations. Doing procedure in OR due to anxiety surrounding office medical procedures ? I have reviewed and updated past medical and surgical history, medications and allergies Assessment & Plan Assessment/Plan (1) Encounter for IUD insertion: (2) MANUEL III (cervical intraepithelial neoplasia grade III) with severe dysplasia: 05/09/23 1357 <Electronically signed by Carmelita Millan MD> Cosigner Signature (if applicable): CC: Dr. Joe Reeves MD; Dr. Carmelita Millan MD~ Signed ADDENDUM by Dr. Carmelita Millan MD on 05/11/23 at 1319 Addendum UPDATE- I have seen the patient and performed any clinically relevant updates to the history and physical exam. 05/11/23 1319<Electronically signed by Carmelita Millan MD> Cosigner Signature (if applicable): cc: Dr. Joe Reeves MD; Dr. Carmelita Millan MD ~* Signed [facility] Work Phone: 1(758) 269-663010-20-2023 Procedure [facility] 05-09-2023 History of Present illness Narrative* Carmelita Millan MD - 05/09/2023 1:52 PM EDT Fadumo Hensley is a 27 year old female who presents for problem visit for f/u MANUEL 3. HPI: 27 YOF w/ MANUEL 3 for LEEp of cervix. Desires progestin IUD for contraception. Due to anxiety about procedures in the office this will be done with sedation in the operating room OB History T2 L2 SAB0 IAB0 Ectopic0 Multiple0 Live Births2 Communications Clerk History LMP: 02/13/2023 (Within Days), Having periods Age at Menarche: Age at First : Age at Menopause: Communications Clerk History Comments: Sexual Activity: Yes; Male Contraception: Inserts PAST MEDICAL HISTORY Diagnosis Date ASCUS with positive high risk HPV cervical 09/26/2019 Asthma 11/29/2011 ATTN DEFICIT NONHYPERACT 11/27/2007 Bulging of intervertebral disc between L4 and L5 and L5 and S1 09/07/2015 Chest pain 04/29/2010 Chlamydia infection 09/23/2013 Depression 05/26/2011 Depression complicating , antepartum 08/02/2012 Diet controlled gestational diabetes mellitus (GDM) in second trimester 11/08/2022 11/08/22- 2 levels out of 3 elevated. Supplies and referrals ordered. Sulma Bartholomew APRN.JULISSA Generalized anxiety disorder GERD (gastroesophageal reflux disease) Hepatitis C 2017 2018 cured after medication course. High grade squamous intraepithelial cervical dysplasia History of suicide attempt 2015 cutting wrist Juvenile osteochondrosis of lower extremity, excluding foot 2005, resolved Migraine headache 05/26/2011 other Sever's Disease, 2006, resolved Other acne 01/27/2010 Pain in joint, site unspecified AC joint tear, 2005 Patient requested diagnostic testing 04/18/2012 04/18/2012 Patient desires early screening in with sequential testing. Poor support system complicating 04/18/2012 04/18/2012The father of the baby is aware that she is , but does not wish to be involved. Patient states her parents are very supportive. Patient is tearful for some of this visit today due to the father of the baby. She states he has put pressure on her in the past to have an , butshe does not wish to do that. Patient was given a brochure on the care center and WIC. depression PTSD (post-traumatic stress disorder) Rosacea 01/27/2010 Rubella non-immune status 04/22/2012 Skin cancer Teen 04/22/2012 July 04, 2012 Flu vaccine given Telangiectasia 01/27/2010 Tobacco use disorder PAST SURGICAL HISTORY Procedure Laterality Date INSERTION OF IUD 12/02/2013 MIRENA IUD 2019 Removed 12/2021 PAST SURGICAL HISTORY OF 01/01/2010 Removal of 4 Mereta Teeth PAST SURGICAL HISTORY OF basal cell carcinoma removed from scalp FAMILY HISTORY Problem Relation Age of Onset Skin Cancer Mother Hypertension Mother Heart Failure Mother Liver Cancer Mother 66 Heart Father TRIPLE BYPASS SURGERY Hypertension Father Diabetes Father Diabetes Sister No Known Problems Sister No Known Problems Sister No Known Problems Brother No Known Problems Brother No Known Problems Brother Heart Maternal Grandmother from heart problems Heart Maternal Grandfather from heart problems Cancer Maternal Grandfather lung Hypertension Maternal Grandfather No Known Problems Daughter Social History Tobacco Use Smoking status: Former Packs/day: 1.00 Years: 9.00 Additional pack years: 0.00 Total pack years: 9.00 Types: Cigarettes Smokeless tobacco: Current Tobacco comments: Vapes Vaping Use Vaping Use: current everyday user Substances: Nicotine Devices: Pre-filled or refillable cartridge Substance Use Topics Alcohol use: Not Currently Drug use: Yes Types: Heroin, Marijuana Comment: Patient states I have used multiple drugs in the past Current Outpatient Medications Medication Sig methocarbamol (ROBAXIN) 500 mg tablet Take 500 mg by mouth four times daily. lisdexamfetamine (VYVANSE) 40 mg capsule Take 1 capsule by mouth once daily for 30 days. tiZANidine (ZANAFLEX) 4 mg tablet Take 1 tablet by mouth at bedtime as needed (muscle spasms). SUMAtriptan (IMITREX) 50 mg tablet Take 1 tablet by mouth once daily. prn albuterol HFA (PROAIR HFA) 90 mcg/actuation inhaler Inhale 2 Puffs as instructed every 4 hours as needed for wheezing/shortness of breath. Used for seasonal allergies levonorgestrel (PLAN B ONE-STEP) 1.5 mg tab Take 1 tablet by mouth one time only for 1 dose. (Patient not taking: Reported on 05/09/2023) Etonogestrel-Ethinyl Estradiol (NUVARING) 0.12-0.015 mg/24 hr vaginal ring Use 1 Each vaginally as directed. INSERT ONE(1) RING VAGINALLY AND LEAVE IN PLACE FOR THREE WEEKS, THEN REMOVE FOR 1 WEEK. (Patient not taking: Reported on 05/09/2023) No current facility-administered medications for this visit. Allergies As of Date: 05/09/2023 Allergen Noted Reaction ZYRTEC [CETIRIZINE HCL] 05/08/2006 Intolerance Fully Assessed 05/09/2023 Allergies and current medication updated:Yes EXAM: BP 112/74 Pulse 104 Resp 16 Ht 5' 7 (1.70m) Wt 177 lb (80.3kg) LMP 02/13/2023 BMI 27.72 kg/(m^2). GENERAL: pleasant, female in no apparent distress ASSESSMENT AND PLAN: MANUEL 3, contraception management r/b/a to Progestein (liletta) IUD insertion and LEEP of cervix reviewed, desires to proceed in OR due to situational anxiety Carmelita Millan MD [facility] History and physical note * Carmelita Millan MD - 05/09/2023 11:33 AM EDT Pre-Op History and Physical HPI: The patient is a 27 year old female presenting for pre-operative visit. She is scheduled for LEEP of the cervix and IUD insertion, for contraception management and MANUEL 3 on 05/11/23. Procedure discussed along with risks, benefits and complications. Other alternatives discussed for management. Consent form signed? Yes. 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 Supplies and referrals ordered. Sulma Bartholomew APRN.KRYSTYNAM Generalized anxiety disorder GERD (gastroesophageal reflux disease) Hepatitis C 2017 2018 cured after medication course. High grade squamous intraepithelial cervical dysplasia History of suicide attempt 2015 cutting wrist Juvenile osteochondrosis of lower extremity, excluding foot 2004, resolved Migraine headache 05/26/2011 other Sever's Disease, 2006, resolved Other acne 01/27/2010 Pain in joint, site unspecified AC joint tear, 2006 Patient requested diagnostic testing 04/18/2012 04/18/2012 Patient desires early screening in with sequential testing. Poor support system complicating 04/18/2012 04/18/2012The father of the baby is aware that she is , but does not wish to be involved. Patient states her parents are very supportive. Patient is tearful for some of this visit today due to the father of the baby. She states he has put pressure on her in the past to have an , butshe does not wish to do that. Patient was given a brochure on the care center and WIC. depression PTSD (post-traumatic stress disorder) Rosacea 01/27/2010 Rubella non-immune status 04/22/2012 Skin cancer Teen 04/22/2012 July 04, 2012 Flu vaccine given Telangiectasia 01/27/2010 Tobacco use disorder PAST SURGICAL HISTORY Procedure Laterality Date INSERTION OF IUD 12/02/2013 MIRENA IUD 2019 Removed 12/2021 PAST SURGICAL HISTORY OF 01/01/2010 Removal of 4 Mereta Teeth PAST SURGICAL HISTORY OF basal cell carcinoma removed from scalp Current Outpatient Medications Medication Sig Dispense Refill methocarbamol (ROBAXIN) 500 mg tablet Take 500 mg by mouth four times daily. lisdexamfetamine (VYVANSE) 40 mg capsule Take 1 capsule by mouth once daily for 30 days. 30 capsule0 tiZANidine (ZANAFLEX) 4 mg tablet Take 1 tablet by mouth at bedtime as needed (muscle spasms). 30 tablet 5 SUMAtriptan (IMITREX) 50 mg tablet Take 1 tablet by mouth once daily. prn 9 tablet 0 albuterol HFA (PROAIR HFA) 90 mcg/actuation inhaler Inhale 2 Puffs as instructed every 4 hours as needed for wheezing/shortness of breath. Used for seasonal allergies 8.5 g 3 levonorgestrel (PLAN B ONE-STEP) 1.5 mg tab Take 1 tablet by mouth one time only for 1 dose. (Patient not taking: Reported on 05/09/2023) 1 tablet 0 Etonogestrel-Ethinyl Estradiol (NUVARING) 0.12-0.015 mg/24 hr vaginal ring Use 1 Each vaginally as directed. INSERT ONE(1) RING VAGINALLY AND LEAVE IN PLACE FOR THREE WEEKS, THEN REMOVE FOR 1 WEEK. (Patient not taking: Reported on 05/09/2023) 3 Each 3 No current facility-administered medications for this visit. ALLERGIES: Zyrtec [Cetirizine Hcl] PERSONAL HISTORY: Social History Tobacco Use Smoking status: Former Packs/day: 1.00 Years: 9.00 Additional pack years: 0.00 Total pack years: 9.00 Types: Cigarettes Smokeless tobacco: Current Tobacco comments: Vapes Vaping Use Vaping Use: current everyday user Substances: Nicotine Devices: Pre-filled or refillable cartridge Substance Use Topics Alcohol use: Not Currently Drug use: Yes Types: Heroin, Marijuana Comment: Patient states I have used multiple drugs in the past FAMILY HISTORY: FAMILY HISTORY Problem Relation Age of Onset Skin Cancer Mother Hypertension Mother Heart Failure Mother Liver Cancer Mother 66 Heart Father TRIPLE BYPASS SURGERY Hypertension Father Diabetes Father Diabetes Sister No Known Problems Sister No Known Problems Sister No Known Problems Brother No Known Problems Brother No Known Problems Brother Heart Maternal Grandmother from heart problems Heart Maternal Grandfather from heart problems Cancer Maternal Grandfather lung Hypertension Maternal Grandfather No Known Problems Daughter REVIEW OF SYMPTOMS: GENERAL: denies fevers or chills ENDOCRINOLOGY: has not been on steroids Cardiology : denies palpitations or chest pain Respiratory: denies SOB or cough Hematology: denies history of prolonged bleeding or easy bruising or VTE Allergy: Denies history of personal or family history of allergy to anesthesia PHYSICAL EXAMINATION: VITALS: Blood pressure 112/74, pulse 104, resp. rate 16, height 5' 7 (1.702 m), weight 177 lb (80.3 kg), last menstrual period 02/13/2023, not currently . GENERAL: The patient is well nourished, well hydrated in no acute distress. , The patient is oriented to time, place, and person. NECK: Supple. No lynphadenopathy, normal thyroid, no thyromegaly. LUNGS: Clear to auscultation bilaterally. no wheezes, rhonchi or rales HEART: Regular rate and rhythm, Normal heart sounds, and No murmurs or gallops IMPRESSION: MANUEL 3 of cervix and IUD insertion PLAN: The risks/benefits/alternatives and personal involved for the planned LEEP of the cervix and IUD insertion were reviewed with the patient. Her questions were answered to her satisfaction and she desires to proceed. Consent was signed. I reviewed with her postop instructions and expectations. Doing procedure in OR due to anxiety surrounding office medical procedures I have reviewed and updated past medical and surgical history, medications and allergies Carmelita Millan M.D. [facility] Miscellaneous Notes* Telephone Encounter - Debby Reeves MD - 05/07/2023 8:00 AM EDT PDMP website checked and validated. All prescriptions have been APPROPRIATELY filled. No suspiciousactivity was identified. 05/07/2023 by Debby Reeves MD * Telephone Encounter - Elli Acuna OCCA - 05/07/2023 7:20 AM EDT Patient has been identified by name and date of : Yes Patient phones for refill(s): Requested Prescriptions Pending Prescriptions Disp Refills lisdexamfetamine (VYVANSE) 40 mg capsule 30 capsule 0 Sig: Take 1 capsule by mouth once daily for 30 days. ANAYA (VV) 03/21/2023 NOV not scheduled Last 2 Encounter Wt Readings: Date: Wt: 03/14/2023 81.6 kg (180 lb) 03/13/2023 82.2 kg (181 lb 3.2 oz) Please advise. Thank you. GABE More. [facility] Miscellaneous Notes* Telephone Encounter - Bibi Saxena APRN.CNP - 04/04/2023 8:28 PM EDT PDMP website checked and validated. All prescriptions have been APPROPRIATELY filled. No suspiciousactivity was identified. 04/04/2023 by Bibi Saxena APRN.CNP * Telephone Encounter - Darien Covarrubias LPN - 04/04/2023 4:34 PM EDT Patient phones requesting refills as follows: Requested Prescriptions Pending Prescriptions Disp Refills lisdexamfetamine (VYVANSE) 40 mg capsule 30 capsule 0 Sig: Take 1 capsule by mouth once daily for 30 days. ANAYA 03/21/23 (virtual) 03/13/23 (in person) NOV no upcoming appt Please review and advise. Darien Covarrubias LPN [facility] Miscellaneous Notes* Telephone Encounter - Carmelita Millan MD - 03/21/2023 3:06 PM EDT noted. Reschedule. Thanks. See if there are date restrictions for her. Carmelita Millan MD * Telephone Encounter - Joshua Delgado RN - 03/21/2023 2:31 PM EDT Received call from [facility] plate worker that patient contacted them to cancel surgery. She is covid positive. Tested positive yesterday. She is aware plate worker will contact her with next available date. Joshua Delgado RN documented [facility]23 Instructions* Patient Instructions* Debby Reeves MD - 03/21/2023 1:39 PM EDT Fact Sheet for Patients And Caregivers Emergency Use Authorization (EUA) Of LAGEVRIO (molnupiravir) capsules For Coronavirus Disease 2019 (COVID-19) What is the most important information I should know about LAGEVRIO? LAGEVRIO may cause serious side effects, including: LAGEVRIO may cause harm to your unborn baby. It is not known if LAGEVRIO will harm your baby if youtake LAGEVRIO during . LAGEVRIO is not recommended for use in . LAGEVRIO has not been studied in . LAGEVRIO was studied in animals only. When LAGEVRIO was given to animals, LAGEVRIO caused harm to their unborn babies. You and your healthcare provider may decide that you should take LAGEVRIO during if thereare no other COVID-19 treatment options approved or authorized by the FDA that are accessible or clinically appropriate for you. If you and your healthcare provider decide that you should take LAGEVRIO during , you and your healthcare provider should discuss the known and potential benefits and the potential risks of taking LAGEVRIO during . For individuals who are able to become : You should use a reliable method of control (contraception) consistently and correctly duringtreatment with LAGEVRIO and for 4 days after the last dose of LAGEVRIO. Talk to your healthcare provider about reliable control methods. Before starting treatment with LAGEVRIO your healthcare provider may do a test to see if you are before starting treatment with LAGEVRIO. Tell your healthcare provider right away if you become or think you may be duringtreatment with LAGEVRIO. Registry: There is a registry for individuals who take LAGEVRIO during . The purpose of this program is to collect information about the health of you and your baby. If you are or become during treatment with LAGEVRIO, you are encouraged to reportyour use of LAGEVRIO during to this registry at https://covid-pr.EmergentDetection.AppMesh or . For individuals who are sexually active with partners who are able to become : It is not known if LAGEVRIO can affect sperm. While the risk is regarded as low, animal studies to fully assess the potential for LAGEVRIO to affect the babies of males treated with LAGEVRIO have notbeen completed. A reliable method of control (contraception) should be used consistently and correctly during treatment with LAGEVRIO and for at least 3 months after the last dose. The risk to sperm beyond 3 months is not known. Studies to understand the risk to sperm beyond 3 months are ongoing. Talk to your healthcare provider about reliable control methods. Talk to your healthcare provider if you have questions or concerns about how LAGEVRIO may affect sperm. You are being given this fact sheet because your healthcare provider believes it is necessary to provide you with LAGEVRIO for the treatment of adults with a current diagnosis of mild-tomoderate coronavirus disease 2019 (COVID-19) who are at high risk for progression to severe COVID-19, including hospitalization or , and for whom other COVID-19 treatment options approved or authorized by theFDA are not accessible or clinically appropriate. The [place] Food and Drug Administration (FDA) has issued an Emergency Use Authorization (EUA) to makeLAGEVRIO available during the COVID-19 pandemic (for more details about an EUA please see What is an Emergency Use Authorization? at the end of this document). LAGEVRIO is not an FDA-approved medicine in the [place]. Read this Fact Sheet for information about LAGEVRIO. Talk to your healthcareprovider about your options if you have any questions. It is your choice to take LAGEVRIO. What is COVID-19? COVID-19 is caused by a virus called a coronavirus. You can get COVID-19 through close contact withanother person who has the virus. COVID-19 illnesses have ranged from very tvrb-jj-hftcbn, including illness resulting in . While information so far suggests that most COVID-19 illness is mild, serious illness can happen and maycause some of your other medical conditions to become worse. Older people and people of all ages with severe, long lasting (chronic) medical conditions like heart disease, lung disease and diabetes, for example seem to be at higher risk of being hospitalized for COVID-19. What is LAGEVRIO? LAGEVRIO is an investigational medicine used to treat adults with a current diagnosis of mild to moderate COVID-19: who are at high risk for progression to severe COVID-19 including hospitalization or , and for whom other COVID-19 treatment options approved or authorized by the FDA are not accessible or clinically appropriate. The FDA has authorized the emergency use of LAGEVRIO for the treatment of mild- tomoderate COVID-19 in adults under an EUA. For more information on EUA, see the What is an Emergency Use Authorization (EUA)? section at the end of this Fact Sheet. LAGEVRIO is not authorized: for use in people less than 18 years of age. for prevention of COVID-19. for people needing hospitalization for COVID-19. for use for longer than 5 consecutive days. What should I tell my healthcare provider before I take LAGEVRIO? Tell your healthcare provider if you: have any allergies are or plan to breastfeed have any serious illnesses Take any medicines including prescription, xnre-sgi-amqtldw medicines, vitamins, and herbal products. How do I take LAGEVRIO? Take LAGEVRIO exactly as your healthcare provider tells you to take it. Take 4 capsules of LAGEVRIO every 12 hours (for example, at 8 am and at 8 pm) Take LAGEVRIO for 5 days. It is important that you complete the full 5 days of treatment with LAGEVRIO. Do not stop taking LAGEVRIO before you complete the full 5 days of treatment, even if you feel better. Take LAGEVRIO with or without food. You should stay in isolation for as long as your healthcare provider tells you to. Talk to your healthcare provider if you are not sure about how to properly isolate while you have COVID-19. Swallow LAGEVRIO capsules whole. Do not open, break, or crush the capsules. If you cannot swallow capsules whole, tell your healthcare provider. If your healthcare provider prescribes LAGEVRIO and tells you to take or give a dose through a nasogastric (NG) or orogastric (OG) tube, follow the instructions below: How to take or give a dose of LAGEVRIO through a nasogastric (NG) or orogastric (OG) feeding tube. You must have an NG or OG that is size 12 Japanese (FR) or larger. If you miss a dose of LAGEVRIO: If it has been less than 10 hours since the missed dose, take it as soon as you remember. If it has been more than 10 hours since the missed dose, skip the missed dose and take your dose atthe next scheduled time. Do not double the dose of LAGEVRIO to make up for a missed dose. How to take or give a dose of LAGEVRIO through a nasogastric (NG) or orogastric (OG) feeding tube: Wash your hands well with soap and water. Gather the supplies you will need to take or give the prescribed dose of LAGEVRIO. 4 LAGEVRIO capsules 1 liquid measuring cup with mL markings to measure 40 mL of room temperature water 1 clean container with a lid 1 catheter tip syringe. Your healthcare provider should tell you what size catheter tip syringe youwill need to take or give a dose of LAGEVRIO. Place the needed supplies on a clean work surface. Follow your healthcare provider s instructions on how to flush the NG or OG feeding tube. Flush theNG or OG feeding tube with 5 mL of water before taking or giving a dose of LAGEVRIO. Carefully open 4 LAGEVRIO capsules, one at a time, and empty the contents into a clean container. Use the liquid measuring cup to measure 40 mL of room temperature water and add to the container containing the capsule contents. Place the lid on the container. Shake to mix the capsule contents and water well for 3 minutes. Thecapsule contents may not dissolve completely. Remove the lid from the container and draw up all the LAGEVRIO and water mixture into a catheter tip syringe. Give all of the mixture right away through the NG or OG feeding tube. Do not keep the mixture for future use. If any capsule contents are left in the container: Add 10 mL of water to the container, and mix to loosen any capsule contents that are left in the container. Use the catheter tip syringe to draw up all of the mixture in the container. Give the mixture through the NG or OG feeding tube. Repeat this process as needed until you no longer see any capsule contents left in the container orcatheter tip syringe. Use the same catheter tip syringe to flush the NG or OG feeding tube 2 times with 5 mL of water (10mL total). Rinse the container, lid and catheter tip syringe well with clean water after use. Place on a cleanpaper towel until next use. What are the important possible side effects of LAGEVRIO? See, What is the most important information I should know about LAGEVRIO? Allergic Reactions. Allergic reactions can happen in people taking LAGEVRIO, even after only 1 dose. Stop taking LAGEVRIO and call your healthcare provider right away if you get any of the following symptoms of an allergic reaction: hives rapid heartbeat trouble swallowing or breathing swelling of the mouth, lips, or face throat tightness hoarseness skin rash The most common side effects of LAGEVRIO are: diarrhea nausea dizziness These are not all the possible side effects of LAGEVRIO. Not many people have taken LAGEVRIO. Serious and unexpected side effects may happen. This medicine is still being studied, so it is possible that all of the risks are not known at this time. What other treatment choices are there? Veklury (remdesivir) is FDA-approved as an intravenous (IV) infusion for the treatment of mildto-moderate COVID-19 in certain adults and children. Talk with your doctor to see if Veklury is appropriate for you. Like LAGEVRIO, FDA may also allow for the emergency use of other medicines to treat people with COVID-19. Go to https://www.fda.gov/qnptnzjki-fmgxgwakjfqc-roo-response/exr-uznjuulmrjlocmi-kby- policy-framework/xmbfjgolm-hds-herixjjvelivu for more information. It is your choice to be treated or not to be treated with LAGEVRIO. Should you decide not to take it, it will not change your standard medical care. What if I am ? is not recommended during treatment with LAGEVRIO and for 4 days after the last dose of LAGEVRIO. If you are or plan to breastfeed, talk to your healthcare provider about your options and specific situation before taking LAGEVRIO. How do I report side effects with LAGEVRIO? Contact your healthcare provider if you have any side effects that bother you or do not go away. Report side effects to FDA MedWatch at www.fda.gov/medwatch or call 1-800-fda-1088 (1673.795.7519). How should I store LAGEVRIO? Store LAGEVRIO capsules at room temperature between 68 F to 77 F (20 C to 25 C). Keep LAGEVRIO and all medicines out of the reach of children. How can I learn more about COVID-19? Ask your healthcare provider. Visit www.cdc.gov/COVID19 Contact your local or state public health department. Call [employer] at (toll free in the [place] Visit www.Gennius.AppMesh What Is an Emergency Use Authorization (EUA)? The [place] FDA has made LAGEVRIO available under an emergency access mechanism called an Emergency Use Authorization (EUA) The EUA is supported by a Manufacturing Planner of Health and Human Service (HHS)declaration that circumstances exist to justify emergency use of drugs and biological products during the COVID-19 pandemic. LAGEVRIO for the treatment of adults with a current diagnosis of tqry-aw-bjpfmqyr COVID-19 who are at high risk for progression to severe COVID- 19, including hospitalization or , and for whom alternative COVID-19 treatment options approved or authorized by FDA are not accessible or clinically appropriate, has not undergone the same type of review as an FDAapproved product. In issuing an EUA under the COVID-19 public health emergency, the FDA has determined, among other things, that based on the total amount of scientific evidence available including data from adequate and well-controlledclinical trials, if available, it is reasonable to believe that the product may be effective for diagnosing, treating, or preventing COVID-19, or a serious or life-threatening disease or condition caused by COVID-19; that the known and potential benefits of the product, when used to diagnose, treat, or prevent such disease or condition, outweigh the known and potential risks of such product; and that there are no adequate, approved, and available alternatives. All of these criteria must be met to allow for the product to be used in the treatment of patients during the COVID-19 pandemic. The EUA for LAGEVRIO is in effect for the duration of the COVID-19 declaration justifying emergency use of LAGEVRIO, unless terminated or revoked (after which LAGEVRIO may no longer be used under the EUA). Karl. for: [employer] [address] For patent information: www.[employer]/research/patent Copyright [employer] [facility] and its affiliates. All rights reserved. [id number] Revised: August 2022 documented in this encounter[facility]23 History of Present illness Narrative* Debby Reeves MD - 03/21/2023 1:22 PM EDT Telemedicine Evaluation for COVID-19 Infection MyChart video visit was used for evaluation of this patient. I have communicated my name and active licensure. The patient's identity and physical location wereverified at the time of this visit. Either the patient or their legal artist representative has been informed of the risks and benefits of -- and alternatives to -- treatment through a remote evaluation andconsents to proceed with the evaluation remotely. SUBJECTIVE Fadumo Hensley is a 27 year old female who presents with 2 days of symptoms that are worsening. States that she took a rapid test at home yesterday which was positive. Symptoms include: Fever (?100.4F): No or Chills: Yes Cough: Yes Shortness of breath: No or Difficulty breathing: No Fatigue: Yes Muscle aches: Yes Headache: Yes New loss of smell or taste: No Sore throat: Yes Nasal congestion: Yes or Rhinorrhea: Yes Nausea: Yes or Vomiting: No Diarrhea: No OTC meds/remedies that patient has tried: acetaminophen, aleve cold and flu. High risk category assessment Chronic lung disease Exposures: Sick contacts? Yes Family or close contacts with confirmed/probable COVID-19 in last 14 days? Yes OBJECTIVE VIDEO EXAM None reported GENERAL: Ill-appearing, but non-toxic HEENT: no conjunctival injection, pupils equal, moist mucous membranes, sinuses tender to self-palpation, and no cervical adenopathy by self-palpation PULMONARY: breathing comfortably on room air , coughing, and no wheezing noted ASSESSMENT/PLAN (U07.1) COVID-19 virus infection (primary encounter diagnosis) Recommend rest, supportive care, and should isolate until: At least 5 days have passed since symptoms first appeared and At least 24 hours have passed since last fever without the use of fever-reducing medications and Symptoms (e.g., cough, shortness of breath) have improved. Should wear mask for at least 5 days after he ends isolation to prevent spread to others. Red flags for re-assessment reviewed with patient in detail. - Discussed symptom monitoring and supportive care - Red flag symptoms requiring follow up discussed Molnupiravir Eligibility and Patient Discussion [facility] Formulary Restriction Criteria: Adult outpatients 18 years and older with ALL of the following: [x] Patient has symptoms for 5 days or less [x] Not requiring hospitalization at any time for management of COVID-19 [x] Not requiring supplemental oxygen or a change in baseline supplemental oxygen [x] Not utilized for pre-exposure or post-exposure prophylaxis for prevention of COVID-19 [x] Patient is not or lactating [x] Meeting at least one of the criteria for high risk of progression to severe COVID-19: [] Age over 65 years [] Cancer [] Chronic kidney disease [] Chronic liver disease [x] Chronic lung diseases, including cystic fibrosis [] Dementia or other neurological conditions [] Diabetes (type 1 or type 2) [] Disabilities, including Down syndrome and neurodevelopmental disorders [] Heart conditions [] HIV infection [] Immunocompromised state [] Mental health conditions [] Medical related technological dependence (tracheostomy, gastrostomy, or positive pressure ventilation (not related to COVID) [] Overweight and obesity (BMI greater or equal to 25 for adults) [] Physical inactivity [] Sickle cell disease or thalassemia [] Smoking, current or former [] Solid organ or blood stem cell transplant [] Stroke or cerebrovascular disease [] Substance use disorders [] Tuberculosis [] People from racial and ethnic minority groups Criteria above are met: Yes Date of Symptom Onset: 03/19/2023 Patient received COVID vaccine: Yes / status reviewed: Females: [x] Patient is not currently and there is no possibility the patient could be (select one of the following): [] test does not need to be confirmed in patients who have undergone permanent sterilization, are currently using an intrauterine system or contraceptive implant, or in whom is not possible. [] Patients not meeting conditions above: assess whether the patient is based on the firstday of the last menstrual period in individuals who have regular menstrual cycles, is using reliable method of contraception correctly and consistently or have had a negative test [] A test is recommended if the individual has irregular menstrual cycles, is unsure of the first day of the last menstrual period or is not using effective contraception correctly and consistently [] Patient is not currently . is not recommended during treatment and for four days after final dose of molnupiravir. [] Females have been advised to use a reliable method of contraception correctly and consistently for the duration of treatment and for four days after the last dose of molnupiravir Males: [] Sexually active male with partner(s) of childbearing potential has been advised to use a reliable method of contraception correctly and consistently for intercourse for the duration of treatment and for three months after the last dose of molnupiravir I have discussed the use of the investigational therapeutic, molnupiravir, for the treatment of mild to moderate COVID-19 and its use under Emergency Use Authorization with the patient. The patient was informed that molnupiravir is not an FDA approved drug and that it is authorized for use under this Emergency Use Authorization. The patient was also informed of the significant knownbenefits and potential risks of molnupiravir, and the extent to which such potential risks and benefits are unknown. The patient was informed that there is mandatory reporting of all medication errors and serious adverse events potentially related to molnupiravir treatment within 7 calendar days from the onset of the event and that events up to 28 days after completion of therapy need to be reported. The discussion included alternatives to receiving molnupiravir, including clinical trials, and potential the risks and benefits of those alternatives. The patient was provided electronically withthe Fact Sheet for Patients, Parents and Caregivers. The patient was also instructed that in addition to the treatment with molnupiravir, he/she should continue to self-isolate and use infection control measures (e.g., wear mask, isolate, social distance, avoid sharing personal items, clean and disinfect high touch surfaces, and frequent handwashing) according to CDC guidelines. The patient stated understanding and gave verbal consent to proceeding with molnupiravir treatment. I spent a total of 20 minutes on the date of the service which included preparing to see the patient, vhuq-[id number] patient care, completing clinical documentation, obtaining and/or reviewing separately obtained history, performing a medically appropriate examination, counseling and educating the pat ient/family/caregiver, and ordering medications, tests, or procedures. Debby Reeves MD March 21, 2023 1:39 PM documented in this encounterBucyrus [facility]08-24-2023 Miscellaneous Notes* Telephone Encounter - Tootie Ashraf - 03/15/2023 11:48 AM EDT Called patient to schedule LLE EMG and patient stated that with her situation, she is unable to go out of [place]. She said that she will find a [facility]itzi [facility] [place] to do an EMG. Tootie Ashraf documented in this encounterBucyrus [facility]08-24-2023 History of Present illness Narrative* Smart, RicheleOCTAVIO.QUANTITATIVE ANALYST MARKETING - 03/15/2023 10:04 AM EDT Images from the original note were not included. [facility] Today's Date: 03/15/2023 Name: Fadumo Hensley : 1995 Purpose: Established Patient Encounter This is a virtual visit via Zoom, Phone and/or MyChart. It required patient- provider interaction for the medical decision making as documented below. Patient understands that privacy cannot be guaranteed. Interval History: Since last encounter, Fadumo Hensley reports: Patient presents today for follow up with new pain complaints. She states that she recently, her back went out. In the past when this happened in the past, she would rest and take some medications and she would improve. However, this time, she went to the ED and had CT scans. She states she was referred to [facility] for further evaluation. She had lumbar imaging in office there and lumbar MRI was ordered. She states on exam with ortho she had decreased reflexes to BLE. She states that the orthopedic surgeon suggested that she would need spinal fusion. She has not heard back if her MRI has been approved. She states that she has difficulty with getting up and standing, she feels that her back is tight and she can't straighten. It takes several moments to be able to stand up all the way. She states she has intermittent LLE radiculopathy. She cannot tolerate any prolonged activities. She states just going to the park will throw her backout. She is 4 months post and cannot tolerate even lifting her child. She states in the past she did have a lumbar KOSTAS with our practice- it didn't help with her pain down to her LLE. However, she did expect it to help with her lower back pain, it did not. Pain Description: Timing: constant Character: Stabbing and tightness Primary Location: BL lower back Radiation: anterolateral LLE to all of the toes (more intermittent) numbness/tingling Exacerbating factors: unable to pinpoint exacerbating factors/positions Relieving factors: Frequent changes in positions Interferes with: physical activity, walking, sleeping, sitting, driving, cooking, household cleaning, lifting, and social activities The patient denies difficulty with bowel or bladder control, unintentional weight loss, and fevers,chills, or night sweats. Medications: CURRENT Pain Medications: Opioid Pain Medications: None Non-Opioid Pain Medications: None Urjk-qfg-pibmapo (OTC) Pain Meds: Naprosyn Compliance: PDMP website checked and validated. All prescriptions have been APPROPRIATELY filled. No suspiciousactivity was identified. 03/15/2023 by Brendon Ibarra APRN.QUANTITATIVE ANALYST MARKETING Risk Assessment: NOAH-7: NOAH - 7 SCORES 03/21/2022 NOAH-7 Score 17 (0-4) minimal anxiety, (5-9) mild anxiety, (10-14) moderate anxiety, (15-21) severe anxiety PHQ-9: PHQ-9 12/08/2020 08/02/2021 03/21/2022 Score 23 22 20 (0-4) minimal depression, (5-9) mild depression, (10-14) moderate depression, (15-19) moderately severe depression, (20-27) severe depression Safety Checklist: Are you taking proper precautions to safe guard your medication? Yes Taking the medications as prescribed? Yes Getting pain medications from another physician? No Obtaining pain medication from another source? No Sharing medications with friends/family? No Quality of life improved as a result of taking these medications? Yes Any side effect with this medication? No Justification for Continued Opioid Care: Adequate analgesia? Yes Aberrant drug seeking behavior? No Adverse reactions? No Medications improve quality of life? Yes Allergies: ALLERGIES Allergen Reactions Zyrtec [Cetirizine * Intolerance tremors Diagnostic Studies: Relevant Imaging: Reviewed Personally on today's date, noted above Lumbar CT 02/12/2023 MRI Spine Report MRI LUMBAR SPINE WO IVCON Exam End: 04/28/2020 10:44 AM (Final result) RESULT: Counting reference: Craniocervical and lumbosacral junctions. For the purposes of this report, L4-5 is considered the level of the iliac crest and there are 5 lumbar-type vertebrae. Anatomic Variants: None. Localizer images: Incompletely evaluated circumscribed T2 hyperintense lesion measuring 15 mm in maximum dimension in the right adrenal region (series 1, image 9), unchanged. Alignment: Normal thoracic alignment. Slight lumbar levocurvature centered at L3-4. Straightening of lordosis. Mild-moderate intervertebral disc space narrowing at L3-4, and mild narrowing at L4-5 and L5-S1. Cord: The cord is within normal limits of signal intensity and morphology. The conus terminates at L1 with apparent central linear T2/STIR hyperintensity likely reflecting terminal ventricle. Normal course and caliber of the descending cauda equina nerve roots. Bone marrow signal/fracture: No evidence of pathologic marrow infiltration. No evidence of prior fracture. Soft tissues: The prevertebral and paraspinal soft tissues are within normal limits. Canal and foramina: No significant thoracic canal or foraminal stenosis. Suggestion of diffuse relative lumbar canal and foraminal narrowing on a developmental basis due to short pedicles. T12-L1: Patent canal and foramina. L1-L2: Patent canal and foramina. L2-L3: Patent canal and foramina. L3-L4: Shallow disc bulging, mild facet hypertrophy, short pedicles; patent canal, mild bilateral foraminal stenosis. No significant change. L4-L5: Diffuse disc bulging with superimposed broad-based central/left paracentral disc extrusion with slight inferior extension into the subarticular zone, and mild facet hypertrophy, short pedicles; indentation of the ventral thecal sac with asymmetric narrowing of the left subarticular zone and likely contact on the descending left L5 nerve root, mild bilateral foraminal stenosis. No significant change. L5-S1: Diffuse disc bulging with superimposed broad-based shallow left paracentral disc protrusion, mild facet arthropathy, short pedicles; slight indentation of the ventral thecal sac with asymmetric narrowing of the left subarticular zone and likely contact on the descending left S1 nerve root, mild right and severe left foraminal stenosis. No significant change. Sacrum and iliac wings: The visualized sacrum and iliac wings are within normal limits. The presacral soft tissues are normal in appearance. Impression: IMPRESSION: Lumbar spondylosis superimposed on developmentally short pedicles, most significant at L4-5 and L5-S1, as detailed. No significant change since 03/10/2020. Unremarkable MRI thoracic spine. Incompletely evaluated 15 mm right adrenal cystic lesion. Electrodiagnostic Study (EMG): None Pain Procedures: DATE PROCEDURE IMPROVEMENT None to date at this practice Current Medications, Past Medical History, Past Surgical History, Family History & Social History: Reviewed on today's date. Review of Systems: Reviewed on today's date. Pertinent Positives: MSK - pain in the region being treated Neuro: No weakness or numbness in the region being treated Skin: Negative (No itching) Eyes: Negative (No blurred or double vision) Respiratory: Negative (No Cough, Gnrtukyyr-[id number], Dyspnea on exertion, wheezing) Cardiovascular: Negative (No Chest Pain, Tightness, Pressure, Palpitations) Gastrointestinal: Negative (No Abdominal pain, Nausea, Vomiting, Constipation, Diarrhea) Genitourinary: Negative (No dysuria) Hematologic: Negative (No bleeding, bruising) OB: is Denied or Not Applicable Endocrine: Negative (No hot/cold intolerance) Psychiatric: Negative (No depression, anxiety or suicidal ideation) Physical Exam: There were no vitals filed for this visit. Constitutional:normal weight Eyes: Conjunctiva clear. No discharge from eyes Cardiovascular: Appears well perfused Lymphatic: No visible regional lymphadenopathy Skin: No visible rashes or ecchymosis Psychiatric: Full affect, Alert, Pleasant Note: Examination was limited today due to this being a virtual/telemedicine encounter Diagnoses: (R20.9) Disturbance of skin sensation (primary encounter diagnosis) (M79.18) Myofascial pain (M54.50, G89.29) Chronic bilateral low back pain without sciatica Plan: After discussing patient's pain complaints and reviewing recent CT and previous MRI we discussed obtaining a left lower extremity EMG to evaluate for radiculopathy and start physical therapy to pursue MRI should it not be approved with orthopedics. There is a strong myofascial component to her lower back pain. This is likely worsened by her state and likely pelvic floor weakness. We will start patient on muscle relaxers and provide her with a prednisone taper. We will plan on doing avirtual visit in 2 weeks to reevaluate her pain and ensure that she has having improvement. At this point her lower back pain seems to be the most bothersome to her. Depending on her responseto physical therapy and medications we can consider lumbar RFA, SPR will likely not be an option due to her insurance. If her radicular symptoms worsen we can consider epidural injection or neuromodulators. Depending on results of current treatment plan consider: Lumbar MRI-pending LLE EMG or completion of PT, neuromodulators versus KOSTAS-if radicular symptoms worsen, trigger point injections-pending response to muscle relaxers and physical therapy, lumbar MBB/RFA (would want physical exam) Medications: Requested Prescriptions Pending Prescriptions Disp Refills methocarbamol (ROBAXIN-750) 750 mg tablet 90 tablet 5 Sig: Take 1 tablet by mouth three times daily. tiZANidine (ZANAFLEX) 4 mg tablet 30 tablet 5 Sig: Take 1 tablet by mouth at bedtime as needed (muscle spasms). predniSONE (DELTASONE) 10 mg tablet 18 tablet 0 Sig: Take 1 tablet by mouth once daily for 10 days. 30 mg x 3 days, 20 mg x 3 days, 10 mg x 2 days,5 mg x 2 days TIME ON VISIT: Virtual visit 30 minutes Attribution: In addition to reviewing the information noted above, some elements copied from my most recent clinical note(s), including the physical exam (completed in entirety today), and the impression and plan sections, have been updated where appropriate. All reflect current medical decision making from today's date. I have confirmed and edited as necessary, the PFSH and ROS obtained by others. Brendon Ibarra APRN.[facility] documented in this encounterBucyrus Community Hospital08-23-2023 History of Present illness Narrative* Carmelita Millan MD - 03/14/2023 1:16 PM EDT Fadumo Hensley is a 27 year old female who presents for problem visit for MANUEL of cervix. HPI: 27-year-old 2 para 2 female for follow-up of MANUEL-3. This was diagnosed on colposcopy biopsy on 12/27/2022. ECC was negative. Desires LEEP of the cervix done in the operating room due to anxiety with procedures. She would also like to have a Mirena IUD placed for contraception. 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 Supplies and referrals ordered. Sulma Bartholomew APRN.CNM Generalized anxiety disorder GERD (gastroesophageal reflux disease) Hepatitis C 2017 2018 cured after medication course. High grade squamous intraepithelial cervical dysplasia History of suicide attempt 2014 cutting wrist Juvenile osteochondrosis of lower extremity, excluding foot 2004, resolved Migraine headache 05/26/2011 other Sever's Disease, 2006, resolved Other acne 01/27/2010 Pain in joint, site unspecified AC joint tear, 2005 Patient requested diagnostic testing 04/18/2012 04/18/2012 Patient desires early screening in with sequential testing. Poor support system complicating 04/18/2012 04/18/2012The father of the baby is aware that she is , but does not wish to be involved. Patient states her parents are very supportive. Patient is tearful for some of this visit today due to the father of the baby. She states he has put pressure on her in the past to have an , butshe does not wish to do that. Patient was given a brochure on the care center and WIC. depression PTSD (post-traumatic stress disorder) Rosacea 01/27/2010 Rubella non-immune status 04/22/2012 Skin cancer Teen 04/22/2012 July 04, 2012 Flu vaccine given Telangiectasia 01/27/2010 Tobacco use disorder PAST SURGICAL HISTORY Procedure Laterality Date INSERTION OF IUD 12/02/2013 MIRENA IUD 2019 Removed 12/2021 PAST SURGICAL HISTORY OF 01/01/2010 Removal of 4 Mereta Teeth PAST SURGICAL HISTORY OF basal cell carcinoma removed from scalp FAMILY HISTORY Problem Relation Age of Onset Skin Cancer Mother Hypertension Mother Heart Failure Mother Liver Cancer Mother 66 Heart Father TRIPLE BYPASS SURGERY Hypertension Father Diabetes Father Diabetes Sister No Known Problems Sister No Known Problems Sister No Known Problems Brother No Known Problems Brother No Known Problems Brother Heart Maternal Grandmother from heart problems Heart Maternal Grandfather from heart problems Cancer Maternal Grandfather lung Hypertension Maternal Grandfather No Known Problems Daughter Social History Tobacco Use Smoking status: Former Packs/day: 1.00 Years: 9.00 Additional pack years: 0.00 Total pack years: 9.00 Types: Cigarettes Smokeless tobacco: Current Tobacco comments: Vapes Vaping Use Vaping Use: current everyday user Substances: Nicotine Devices: Pre-filled or refillable cartridge Substance Use Topics Alcohol use: Not Currently Drug use: Yes Types: Heroin, Marijuana Comment: Patient states I have used multiple drugs in the past Current Outpatient Medications Medication Sig lisdexamfetamine (VYVANSE) 40 mg capsule Take 1 capsule by mouth once daily for 30 days. SUMAtriptan (IMITREX) 50 mg tablet Take 1 tablet by mouth once daily. prn levonorgestrel (PLAN B ONE-STEP) 1.5 mg tab Take 1 tablet by mouth one time only for 1 dose. Etonogestrel-Ethinyl Estradiol (NUVARING) 0.12-0.015 mg/24 hr vaginal ring Use 1 Each vaginally as directed. INSERT ONE(1) RING VAGINALLY AND LEAVE IN PLACE FOR THREE WEEKS, THEN REMOVE FOR 1 WEEK. ferrous sulfate (IRON ORAL) Take by mouth. (Patient not taking: Reported on 03/03/2023) albuterol HFA (PROAIR HFA) 90 mcg/actuation inhaler Inhale 2 Puffs as instructed every 4 hours as needed for wheezing/shortness of breath. Used for seasonal allergies No current facility-administered medications for this visit. Allergies As of Date: 03/14/2023 Allergen Noted Reaction ZYRTEC [CETIRIZINE HCL] 05/08/2006 Intolerance Fully Assessed 03/13/2023 REVIEW OF SYSTEMS Abdomen: No bloating, early satiety, indigestion, or increased flatulence. No abdominal pain, nausea, vomiting, diarrhea, or constipation. Allergies and current medication updated:Yes EXAM: BP 106/60 Pulse 95 Resp 16 Ht 5' 7 (1.70m) Wt 180 lb (81.6kg) SpO2 98% LMP 02/13/2023 BMI 28.19 kg/(m^2). GENERAL: pleasant, female in no apparent distress H ASSESSMENT AND PLAN: MANUEL 3 of the cervix. Risk benefits alternatives to LEEP were discussed with the patient, her questions were answered to her satisfaction and she desires to proceed. Importance of short and long-term follow-up for this were reviewed. Completed Gardasil series in 2009. Contraception discussion. Risk benefits and alternatives to IUD insertion were reviewed, questions were answered to her satisfaction she desires Liletta IUD insertion at time of LEEP. Carmelita Millan MD documented in this encounterBu[facility]rus [facility]08-23-2023 History and physical note * Carmelita Millan MD - 03/14/2023 11:43 AM EDT Pre-Op History and Physical HPI: The patient is a 27 year old female presenting for pre-operative visit. She is scheduled for LEEP of the cervix and Liletta IUD insertion, for MANUEL-3 of the cervix and contraception on 03/22/2023. Procedure discussed along with risks, benefits and complications. Other alternatives discussed for management. Consent form signed? Yes. 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 Supplies and referrals ordered. Sulma Bartholomew APRN.CNM Generalized anxiety disorder GERD (gastroesophageal reflux disease) Hepatitis C 2017 2018 cured after medication course. High grade squamous intraepithelial cervical dysplasia History of suicide attempt 2014 cutting wrist Juvenile osteochondrosis of lower extremity, excluding foot 2005, resolved Migraine headache 05/26/2011 other Sever's Disease, 2006, resolved Other acne 01/27/2010 Pain in joint, site unspecified AC joint tear, 2005 Patient requested diagnostic testing 04/18/2012 04/18/2012 Patient desires early screening in with sequential testing. Poor support system complicating 04/18/2012 04/18/2012The father of the baby is aware that she is , but does not wish to be involved. Patient states her parents are very supportive. Patient is tearful for some of this visit today due to the father of the baby. She states he has put pressure on her in the past to have an , butloraine does not wish to do that. Patient was given a brochure on the care center and WIC. depression PTSD (post-traumatic stress disorder) Rosacea 01/27/2010 Rubella non-immune status 04/22/2012 Skin cancer Teen 04/22/2012 July 04, 2012 Flu vaccine given Telangiectasia 01/27/2010 Tobacco use disorder PAST SURGICAL HISTORY Procedure Laterality Date INSERTION OF IUD 12/02/2013 MIRENA IUD 2019 Removed 12/2021 PAST SURGICAL HISTORY OF 01/01/2010 Removal of 4 Mereta Teeth PAST SURGICAL HISTORY OF basal cell carcinoma removed from scalp Current Outpatient Medications Medication Sig Dispense Refill lisdexamfetamine (VYVANSE) 40 mg capsule Take 1 capsule by mouth once daily for 30 days. 30 capsule0 SUMAtriptan (IMITREX) 50 mg tablet Take 1 tablet by mouth once daily. prn 9 tablet 0 levonorgestrel (PLAN B ONE-STEP) 1.5 mg tab Take 1 tablet by mouth one time only for 1 dose. 1 tablet 0 Etonogestrel-Ethinyl Estradiol (NUVARING) 0.12-0.015 mg/24 hr vaginal ring Use 1 Each vaginally as directed. INSERT ONE(1) RING VAGINALLY AND LEAVE IN PLACE FOR THREE WEEKS, THEN REMOVE FOR 1 WEEK. 3Each 3 ferrous sulfate (IRON ORAL) Take by mouth. (Patient not taking: Reported on 03/03/2023) albuterol HFA (PROAIR HFA) 90 mcg/actuation inhaler Inhale 2 Puffs as instructed every 4 hours as needed for wheezing/shortness of breath. Used for seasonal allergies 8.5 g 3 No current facility-administered medications for this visit. ALLERGIES: Zyrtec [Cetirizine Hcl] PERSONAL HISTORY: Social History Tobacco Use Smoking status: Former Packs/day: 1.00 Years: 9.00 Additional pack years: 0.00 Total pack years: 9.00 Types: Cigarettes Smokeless tobacco: Current Tobacco comments: Vapes Vaping Use Vaping Use: current everyday user Substances: Nicotine Devices: Pre-filled or refillable cartridge Substance Use Topics Alcohol use: Not Currently Drug use: Yes Types: Heroin, Marijuana Comment: Patient states I have used multiple drugs in the past FAMILY HISTORY: FAMILY HISTORY Problem Relation Age of Onset Skin Cancer Mother Hypertension Mother Heart Failure Mother Liver Cancer Mother 66 Heart Father TRIPLE BYPASS SURGERY Hypertension Father Diabetes Father Diabetes Sister No Known Problems Sister No Known Problems Sister No Known Problems Brother No Known Problems Brother No Known Problems Brother Heart Maternal Grandmother from heart problems Heart Maternal Grandfather from heart problems Cancer Maternal Grandfather lung Hypertension Maternal Grandfather No Known Problems Daughter REVIEW OF SYMPTOMS: GENERAL: denies fevers or chills ENDOCRINOLOGY: has not been on steroids Cardiology : denies palpitations or chest pain Respiratory: denies SOB or cough Hematology: denies history of prolonged bleeding or easy bruising or VTE Allergy: Denies history of personal or family history of allergy to anesthesia PHYSICAL EXAMINATION: VITALS: Blood pressure 106/60, pulse 95, resp. rate 16, height 5' 7 (1.702 m), weight 180 lb (81.6kg), last menstrual period 02/13/2023, SpO2 98 %, not currently . GENERAL: The patient is well nourished, well hydrated in no acute distress. , The patient is oriented to time, place, and person. NECK: Supple. No lynphadenopathy, normal thyroid, no thyromegaly. LUNGS: Clear to auscultation bilaterally. no wheezes, rhonchi or rales HEART: Regular rate and rhythm, Normal heart sounds, and No murmurs or gallops IMPRESSION: MANUEL-3 of the cervix and contraceptive management PLAN: The risks/benefits/alternatives and personal involved for the planned LEEP of the cervix and Liletta IUD insertion were reviewed with the patient. Her questions were answered to her satisfaction and she desires to proceed. Consent was signed. I reviewed with her postop instructions and expectations. I have reviewed and updated past medical and surgical history, medications and allergies Carmelita Millan M.D. documented in this encounterBu[facility]08-22-[facility]23 History of Present illness Narrative* Debby Reeves MD - 03/13/2023 10:08 AM EDT Chief Complaint Patient presents with: Follow Up: Symptoms worsening- lower abd pressure and pain with voiding mid to upper back pain HPI Fadumo Hensley is a 27 year old female who presents here today for Above Complaints.. Patient noted to have 1.4 cm nonobstructing stone in right mid renal pole on CT lumbar spine on 02/16. Dr. Kim's office called yesterday with report from lumbar xray which showed movement of stone into proximal right ureter. Referred to urology as patient was not having symptoms around 3pm yesterday. Today, states that she is having back pain all over which started a couple weeks ago and lower abdominal cramping which started yesterday. Feels like period cramps, but is not due for her period for another week with LMP 02/20. On control with Nuvaring. Also notes that she is having to strainto urinate. Taking naproxen for back pain which does help some with symptoms. Pushing PO fluids. Denies dysuria, hematuria, urgency, fever/chills, nausea, vomiting, abnormal vaginal bleeding or discharge. Noted history of bulging discs in her lumbar spine which could be contributing to her back pain. Seeing Dr. Kim for her pain. Records not available from last OV yet. Past medical history, appointments, medications, allergies reviewed. 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 Supplies and referrals ordered. Sulma Bartholomew, [employer]OND[employer]ER.CNM Generalized anxiety disorder GERD (gastroesophageal reflux disease) Hepatitis C 2017 2018 cured after medication course. High grade squamous intraepithelial cervical dysplasia History of suicide attempt 2014 cutting wrist Juvenile osteochondrosis of lower extremity, excluding foot 2004, resolved Migraine headache 05/26/2011 other Sever's Disease, 2006, resolved Other acne 01/27/2010 Pain in joint, site unspecified AC joint tear, 2005 Patient requested diagnostic testing 04/18/2012 04/18/2012 Patient desires early screening in with sequential testing. Poor support system complicating 04/18/2012 04/18/2012The father of the baby is aware that she is , but does not wish to be involved. Patient states her parents are very supportive. Patient is tearful for some of this visit today due to the father of the baby. She states he has put pressure on her in the past to have an , butshe does not wish to do that. Patient was given a brochure on the care center and WIC. depression PTSD (post-traumatic stress disorder) Rosacea 01/27/2010 Rubella non-immune status 04/22/2012 Skin cancer Teen 04/22/2012 July 04, 2012 Flu vaccine given Telangiectasia 01/27/2010 Tobacco use disorder Previous Surgical History PAST SURGICAL HISTORY Procedure Laterality Date INSERTION OF IUD 12/02/2013 MIRENA IUD 2019 Removed 12/2021 PAST SURGICAL HISTORY OF 01/01/2010 Removal of 4 Mereta Teeth PAST SURGICAL HISTORY OF basal cell carcinoma removed from scalp Family History FAMILY HISTORY Problem Relation Age of Onset Cancer Mother Hypertension Mother Heart Failure Mother Heart Father TRIPLE BYPASS SURGERY Hypertension Father Diabetes Father Diabetes Sister No Known Problems Sister No Known Problems Sister No Known Problems Brother No Known Problems Brother No Known Problems Brother Heart Maternal Grandmother from heart problems Heart Maternal Grandfather from heart problems Cancer Maternal Grandfather lung Hypertension Maternal Grandfather No Known Problems Daughter Patient Allergies ALLERGIES Allergen Reactions Zyrtec [Cetirizine * Intolerance tremors Current Medications Current Outpatient Medications on File Prior to Visit Medication Sig lisdexamfetamine (VYVANSE) 40 mg capsule Take 1 capsule by mouth once daily for 30 days. SUMAtriptan (IMITREX) 50 mg tablet Take 1 tablet by mouth once daily. prn Etonogestrel-Ethinyl Estradiol (NUVARING) 0.12-0.015 mg/24 hr vaginal ring Use 1 Each vaginally as directed. INSERT ONE(1) RING VAGINALLY AND LEAVE IN PLACE FOR THREE WEEKS, THEN REMOVE FOR 1 WEEK. albuterol HFA (PROAIR HFA) 90 mcg/actuation inhaler Inhale 2 Puffs as instructed every 4 hours as needed for wheezing/shortness of breath. Used for seasonal allergies levonorgestrel (PLAN B ONE-STEP) 1.5 mg tab Take 1 tablet by mouth one time only for 1 dose. ferrous sulfate (IRON ORAL) Take by mouth. (Patient not taking: Reported on 03/03/2023) No current facility-administered medications on file prior to visit. Social History Social History Tobacco Use Smoking status: Former Packs/day: 1.00 Years: 9.00 Additional pack years: 0.00 Total pack years: 9.00 Types: Cigarettes Smokeless tobacco: Current Tobacco comments: Vapes Vaping Use Vaping Use: current everyday user Substances: Nicotine Devices: Pre-filled or refillable cartridge Substance Use Topics Alcohol use: Not Currently Drug use: Yes Types: Heroin, Marijuana Comment: Patient states I have used multiple drugs in the past Review of Symptoms REVIEW OF SYSTEMS See HPI EXAM: BP 118/64 Pulse 98 Temp 37.2 C (98.9 F) Resp 16 Wt 82.2 kg (181 lb 3.2 oz) LMP 02/22/2022(Approximate) SpO2 98% BMI 28.38 kg/m General Appearance: Well appearing, alert, in no acute distress, well-hydrated, well nourished.. Skin: Skin color, texture, turgor normal, no suspicious rashes or lesions. Back:No reproducible pain with palpation to her upper and lower back. Pain with getting up and downoff of exam table. Abdomen: Normal abdominal exam, Abdomen soft, non-tender. Bowel sounds normal. No masses, organomegaly. No CVA tenderness. Health Maintenance List PNEUMOCOCCAL(1 - PCV) Never done HPV VACCINE(3 - Risk 3-dose series) due on 2010 SPIROMETRY Never done DEPRESSION ASSESSMENT due on 07/22/2023 COVID-19 VACCINE(2 - Pfizer series) due on 08/03/2023 INFLUENZA(1) due on 03/23/2023 ANNUAL PCP TEAM CHRONIC DISEASE VISIT due on 03/13/2024 PAP TESTING due on 12/27/2025 DTAP,TDAP,TD(8 - Td or Tdap) due on 10/18/2032 HEPATITIS B Completed HEPATITIS C SCREENING Completed HIV SCREENING Completed Component Latest Ref Rng & Units 03/13/2023 GLUCOSE UA (POCT) Negative mg/dL Negative BILIRUBIN UA (POCT) Negative Negative KETONE UA (POCT) Negative mg/dL Negative SPECIFIC GRAVITY UA (POCT) 1.005 - 1.030 1.020 HEMOGLOBIN/BLOOD UA (POCT) Negative Negative PH UA (POCT) 4.5 - 8.0 7.0 PROTEIN UA (POCT) Negative mg/dL Negative UROBILINOGEN UA (POCT) Normal E.U./dL 0.2 NITRITE UA (POCT) Negative Negative LEUKOCYTES UA (POCT) Negative Trace (A) COLOR UA (POCT) Light yellow CLARITY UA (POCT) Clear ASSESSMENT/PLAN: 1. Flank pain - ICD9: 789.09, ICD10: R10.9 (primary diagnosis) UA negative for blood or infection. Discussed symptoms of bilateral back pain are not consistent with kidney stone and more likely related to her DDD, but with concerning xray for moving stone will obtain US to evaluate for ureter dilation and hydronephrosis. Referral to urology already in placed for large stone and encouraged her to call to schedule OV. Recommended she continue to push PO fluidsand use naproxen/tyelnol for pain PRN. F/u with ortho spine/pain management for DDD. - UA DIP, URINE (POC) - US KIDNEY/BLADDER 2. Lower abdominal pain - ICD9: 789.09, ICD10: R10.30 Normal abdominal exam today. On control with negative urine test in January. Call if abdominal cramping symptoms persist or worsen or if she has concern for new . I spent a total of 30 minutes on the date of the service which included preparing to see the patient, [id number] patient care, completing clinical documentation, obtaining and/or reviewing separately obtained history, performing a medically appropriate examination, counseling and educating the pat ient/family/caregiver, and ordering medications, tests, or procedures. Debby Reeves MD documented in this encounterBu[facility]08-22-2023 Miscellaneous Notes* Telephone Encounter - Vicky Nichols LPN - 03/13/2023 8:08 AM EDT Patient returned call and went over notes below from Dr Reeves with understanding. Patient said she is having worse upper back pain, bloating and cramping and groin pain. Scheduled appt with PCP forthis morning. * Telephone Encounter - Debby Reeves MD - 03/12/2023 5:00 PM EDT With imaging less than a month ago without symptoms I would refer her to urology instead of ordering repeat CT and giving her another dose of radiation. Since stone is larger than 1 cm, they can discuss breaking it up with sound waves before it becomes a problem vs monitoring. * Telephone Encounter - Maria Antonia Olsen LPN - 03/12/2023 2:48 PM EDT Phoned patient and when asked if experiencing any new symptoms she Stated Nothing yet, just waiting for them to start. * Telephone Encounter - Debby Reeves MD - 03/12/2023 11:59 AM EDT Is this patient having any new symptoms of flank pain, pain with urination, blood with urination, stopping/starting, nausea/vomiting? * Telephone Encounter - Jacinta Watkins RN - 03/09/2023 1:32 PM EDT Idania [facility] Office calls to report patient had lumbar x-rays done which showed interval movement of previous noted right renal calculi into proximal right ureter. CT could be utilized to confirm. Office wanted provider aware of this since office will not do anything with this. Patient was seen in ER on 02/16/[address] scan done on lumbar which showed 1.4 cm non obstructing stone in right mid renal pole. Jacinta Watkins RN documented in this encounterBu[facility]08-16-2023 Miscellaneous Notes* Telephone Encounter - Alyiah Stoddard LPCC - 03/07/2023 10:00 AM EDT Behavioral Health Social Work Progress Note Patient identified for [facility] from: PCP Reason for referral: Resources Behavioral Health Resources: Psychology - talk therapy, Psychiatry med management [facility] encounter type: Telephone Encounter, MyChart Message Attempts to Outreach: 1 attempt Referral made: Psychiatry - External, Psychology - External, Psychology - Internal Psychology-Internal referral type: Therapy Psychology-External referral type: Therapy Psychiatry-External referral type: Medication Management Reason for external referral: Wait times at [facility] too long, Patient choice Final Disposition: Resources given Patient Discharged?: Yes Patient reported that caregiver was able to meet their needs today?: Yes therapist spoke with patient to assess needs. She reports that she would like to see a counselorand a psychiatrist. She states that she is going through a lot right now and that it is mostly situational. She was receptive to resources being sent to her MyChart. RUDY Gaines-S March 07, 2023 documented in this encounterBucyrus [facility]08-12-2023 History of Present illness Narrative* Damaso Jang MD - 03/03/2023 10:41 AM EDT Patient presents with: ER F/U HPI: Patient presents today for office visit for emergency room follow of back pain. HOSPITAL/ER FOLLOW UP: Reason for visit: back pain. Pt has a history of spinal stenosis with herniated disks. Recently hada baby and doing a lot of bending and lifting. Which facility: [facility] Date of visit: 02/16/23 Diagnosis: Lumbar back pain Testing done: Lumbar Spine CT Mild Multilevel DDD and Spondylosis Treatment given: Prednisone, naproxen, norco. Referral to Dr Sullivan Current symptoms: 5/10 pain, sharp pain when standing, aching throughout the day. Trouble walking long distances. She also will be seeing Dr Kim. From us basically needs a note saying she can use a scooter to take her children to [place]. MIGRAINE: Has migraine for 2 days. Woke her up in the middle of night. 6/10 pain. Some nausea, no vomiting. Some photosensitivity. She had recently lost her glasses. She started getting bitemporal headache and in posterior neck. Has had migraines before. Not a thunderclap headache. No new numbness or tingling or weakness of extremities. Uses tylenol. Not . MEDICATIONS: Current Outpatient Medications Medication Sig lisdexamfetamine (VYVANSE) 30 mg capsule Take 1 capsule by mouth once daily for 14 days. levonorgestrel (PLAN B ONE-STEP) 1.5 mg tab Take 1 tablet by mouth one time only for 1 dose. Etonogestrel-Ethinyl Estradiol (NUVARING) 0.12-0.015 mg/24 hr vaginal ring Use 1 Each vaginally as directed. INSERT ONE(1) RING VAGINALLY AND LEAVE IN PLACE FOR THREE WEEKS, THEN REMOVE FOR 1 WEEK. ferrous sulfate (IRON ORAL) Take by mouth. albuterol HFA (PROAIR HFA) 90 mcg/actuation inhaler Inhale 2 Puffs as instructed every 4 hours as needed for wheezing/shortness of breath. Used for seasonal allergies PNV no.95/ferrous fum/folic ac ( ORAL) Take by mouth. No current facility-administered medications for this visit. ALLERGIES: ALLERGIES Allergen Reactions Zyrtec [Cetirizine * Intolerance tremors PAST MEDICAL HISTORY Diagnosis Date ASCUS with positive high risk HPV cervical 09/26/2019 Asthma 11/29/2011 ATTN DEFICIT NONHYPERACT 11/27/2007 Bulging of intervertebral disc between L4 and L5 and L5 and S1 09/07/2015 Chest pain 04/29/2010 Chlamydia infection 09/23/2013 Depression 05/26/2011 Depression complicating , antepartum 08/02/2012 Diet controlled gestational diabetes mellitus (GDM) in second trimester 11/08/2022 11/08/22- 2 levels out of 3 elevated. Supplies and referrals ordered. Sulma Bartholomew, OCTAVIO.CNM Generalized anxiety disorder GERD (gastroesophageal reflux disease) Hepatitis C 2017 2018 cured after medication course. High grade squamous intraepithelial cervical dysplasia History of suicide attempt 2014 cutting wrist Juvenile osteochondrosis of lower extremity, excluding foot 2005, resolved Migraine headache 05/26/2011 other Sever's Disease, 2006, resolved Other acne 01/27/2010 Pain in joint, site unspecified AC joint tear, 2005 Patient requested diagnostic testing 04/18/2012 04/18/2012 Patient desires early screening in with sequential testing. Poor support system complicating 04/18/2012 04/18/2012The father of the baby is aware that she is , but does not wish to be involved. Patient states her parents are very supportive. Patient is tearful for some of this visit today due to the father of the baby. She states he has put pressure on her in the past to have an , butshe does not wish to do that. Patient was given a brochure on the care center and WIC. depression PTSD (post-traumatic stress disorder) Rosacea 01/27/2010 Rubella non-immune status 04/22/2012 Skin cancer Teen 04/22/2012 July 04, 2012 Flu vaccine given Telangiectasia 01/27/2010 Tobacco use disorder PAST SURGICAL HISTORY Procedure Laterality Date INSERTION OF IUD 12/02/2013 MIRENA IUD 2019 Removed 12/2021 PAST SURGICAL HISTORY OF 01/01/2010 Removal of 4 Mereta Teeth PAST SURGICAL HISTORY OF basal cell carcinoma removed from scalp FAMILY HISTORY Problem Relation Age of Onset Hypertension Mother Heart Father TRIPLE BYPASS SURGERY Hypertension Father Diabetes Father Diabetes Sister No Known Problems Sister No Known Problems Sister No Known Problems Brother No Known Problems Brother No Known Problems Brother Heart Maternal Grandmother from heart problems Heart Maternal Grandfather from heart problems Cancer Maternal Grandfather lung Hypertension Maternal Grandfather No Known Problems Daughter Social History Tobacco Use Smoking status: Former Packs/day: 1.00 Years: 9.00 Additional pack years: 0.00 Total pack years: 9.00 Types: Cigarettes Smokeless tobacco: Current Tobacco comments: Vapes Vaping Use Vaping Use: current everyday user Substances: Nicotine Devices: Pre-filled or refillable cartridge Substance Use Topics Alcohol use: Not Currently Drug use: Yes Types: Heroin, Marijuana Comment: Patient states I have used multiple drugs in the past Reviewed current medications, allergies, past medical history, surgical history, family history andsocial history today. REVIEW OF SYSTEMS All other reviewed and negative other than HPI. VITALS: BP 116/78 Pulse 100 Resp 18 Wt 83.5 kg (184 lb) LMP 02/22/2022 (Approximate) SpO2 97% No BMI 28.82 kg/m Last 4 Encounter Wt Readings: Date: Wt: 02/14/2023 83.9 kg (185 lb) 12/27/2022 83.5 kg (184 lb) 12/13/2022 83.9 kg (185 lb) 11/15/2022 92.1 kg (203 lb) PHYSICAL EXAMINATION: General appearance: Well appearing, alert, in no acute distress, well-hydrated, well nourished. Skin: Skin color, texture, turgor normal, no suspicious rashes or lesions Head: Normocephalic, no masses, lesions, tenderness or abnormalities Eyes: Anicteric sclera. Pupils are equally round and reactive to light. Extraocular movements are intact. Ears: External ears normal, canals clear Nose/Sinuses: Nares normal, septum midline, mucosa normal, no drainage or sinus tenderness Oropharynx: Lips, mucosa, and tongue normal, teeth and gums normal, oropharynx normal Lungs: Lungs clear to auscultation. No wheezing, rhonchi, rales Heart: RRR without murmur, gallop, or rubs. No ectopy Abdomen: Normal abdominal exam, Abdomen soft, non-tender. Bowel sounds normal. No masses, organomegaly Extremities: No deformities, edema, skin discoloration, clubbing or cyanosis. Good capillary refill. Musculoskeletal: No joint swelling, deformity, or tenderness Peripheral pulses: Normal Neuro: Gait normal. Reflexes normal and symmetric. Sensation grossly intact., Negative findings: speech normal, mental status intact, muscle tone normal, muscle strength normal ASSESSMENT/PLAN: 1. Migraine with aura, not intractable, without status migrainosus - ICD9: 346.00, ICD10: G43.109 (primary diagnosis) - Discussed risks and benefits of new medication with the patient. Advised them to call if any sideeffects or questions. Red flags for re-assessment reviewed with patient in detail. - SUMATRIPTAN 50 MG TABLET 2. DDD (degenerative disc disease), lumbar - ICD9: 722.52, ICD10: M51.36 - follow with spine. Letter written. Damaso Jang MD documented in this encounterBucyrus [facility]07-31-2023 Miscellaneous Notes* Telephone Encounter - Cherise Pacheco Ma - 02/19/2023 1:54 PM EDT Pt notified via [employer] rx has been sent to [facility]. Pt already read message. Cherise Pacheco Ma * Telephone Encounter - Debby Reeves MD - 02/19/2023 1:26 PM EDT Rx sent as requested. * Telephone Encounter - Yvette Cunningham RN - 02/19/2023 12:45 PM EDT Patient returned call. Given message from provider's office. She is requesting Vyvanse that was sent to [facility] be sent to [facility]. Pended per request. Yvette Cunningham RN * Telephone Encounter - Vivienne Zuniga MA - 02/19/2023 12:25 PM EDT LM for patient to contact office. When patient returns call, please notify of the below as well as, Vyvanse can be somewhat expensivedepending on insurance coverage. Co-pay assistance card available at www.[employer] to show pharmacy. Vivienne Zuniga MA * Telephone Encounter - Debby Reeves MD - 02/19/2023 11:56 AM EDT Urine drug screening negative/normal. Will start on Vyvanse 30 mg daily as discussed in office. Rx sent for 2 weeks. Call in 1-2 weeks with update on her symptoms. If not improving, will increase dosage. Stop medication and call with chest pain, palpitations, abdominal pain, weight loss, tremors, shaking, insomnia. documented in [facility]23 Miscellaneous Notes* Telephone Encounter - Alem Tang RN - 02/17/2023 12:22 PM EDT Reason: Patient calling with request for letter for work. Patient states she was in the [facility] emergency room last night for back pain and was referred to a general surgeon. Patient stated she is requesting a letter for work stating she was going to need a wheelchair. Patient denies any new or worsening symptoms of which a provider is not aware: Yes. Outcome: Patient advised to call [facility] ER to see if she can obtain letter from provider who evaluated her and advised to schedule an ED follow up with PCP. Patient declined scheduling at this time. Alem Tang RN documented in this encounterBu[facility]07-28-2023 Discharge summary Author Mai Wang [facility] February 16, 2023 11:18pm Note Date/Time February 16, 2023 5:43 pm [facility] Medical Records Department [address] [place] [id number] Emergency Department Summary 02/16/23 MR#: [id number] Acct: [id number] Name: FADUMO HENSLEY Rep #:[id number] : 1995 27 From: Mai Herrera PCP: Dr. Joe Reeves MD Status :REG ER Location: ED HPI <ROSETTE Bae - Last Filed: 02/16/23 21:44> History of Present Illness Chief Complaint: Back Narrative Narrative: Patient presenting today with an exacerbation of her chronic lumbar back pain that started this morning. She reports that she has spinal stenosis and was told she has 3 herniated disks in her back. She had a baby 3 months ago and hasbeen doing a lot of bending over to lift the baby up but denies any acute injuryto her back. She was supposed to start physical therapy on Sunday but had toreschedule due to schedule conflict. She reports that she is having a difficulttime ambulating today due to the pain. She feels like her buttocks is numb bilaterally. She denies fever, chills, bowel or bladder incontinence, and saddle paresthesia. PFSH <ROSETTE Bae - Last Filed: 02/16/23 21:44> [facility] Medical History ADHD Anxiety Asthma Depression Gestational diabetes Headache Lower back pain depression Skin cancer Home Medications [id number] 1 mg tablet 1 tab PO DAILY 10/28/22 [History Last Taken 11/21/22 18:00] famotidine 20 mg tablet 20 mg PO DAILY indigestion 11/15/22 [History Last Taken 11/21/22 22:00] ferrous sulfate 27 mg iron tablet 287 mg PO DAILY anemia 11/15/22 [History Last Taken 11/21/22 18:00] nicotine 22 mg/24 hr daily transdermal patch 22 mg transdermal DAILY nicotine patch 11/15/22 [History Last Taken 11/22/22 10:00] hydrocodone-acetaminophen 5-325mg 5mg-325mg 1 tab PO Q4H PRN PRN Pain 3 days #7 TABLETS 02/16/23 [Rx Last Taken Unknown] naproxen 500 mg tablet 500 mg PO BID #14 tabs 02/16/23 [Rx Last Taken Unknown] prednisone 20 mg tablet 40 mg (2 x 20 mg) PO DAILY 5 days #10 tabs 02/16/23 [Rx Last Taken Unknown] Allergy/AdvReac Type Severity Reaction Status Date / Time cetirizine [From [facility]] Allergy difficulty Verified 02/16/23 16:17 breathing, racing heart Surgical History History of surgery Social History Smoking Status: Unknown if ever smoked details: Occasionally substance use type: does not use ROS <ROSETTE Bae - Last Filed: 02/16/23 21:44> ROS ED Constitutional Constitutional ED: Denies chills or fever(s) Cardiovascular Cardiovascular: Denies chest pain Respiratory/Chest Respiratory/Chest: Denies cough or dyspnea Gastrointestinal Gastrointestinal: Denies abdominal pain, nausea or vomiting Genitourinary Genitourinary ED: Denies dysuria, hematuria or urinary urgency Musculoskeletal Musculoskeletal: Reports back pain Integumentary Denies abscess, Abrasions or rash Neurologic Neurologic: Reports paresthesias; Denies weakness EXAM <ROSETTE Bae - Last Filed: 02/16/23 21:44> Physical Exam Const Vital Signs: 02/16/23 16:18 02/16/23 20:55 Temperature 97.1 F L Temperature Source Temporal Pulse Rate 69 70 Respiratory Rate 17 16 Blood Pressure 100/76 116/61 Blood Pressure Mean 84 79 Pulse Ox 99 97 Oxygen Delivery Method Room Air Room Air Positive well nourished, well developed and no apparent distress General Appearance ED: well developed HEENT Reports normocephalic and head/scalp atraumatic Mouth ED: Yes moist mucous membranes normal Eyes PERRL and EOMs intact bilaterally Neck full ROM and supple Chest Wall inspection of chest normal Resp normal respiratory effort and clear to auscultation bilaterally Cardio regular rate and regular rhythm GI soft to palpation, non-tender, non-distended and no masses Back/Spine Back/Spine Narrative: Pain to palpation to the midline lumbar spine as well as left paraspinal tenderness. Lumbar Spine / Lower Back: ROM limited Extremity normal to inspection and full ROM Neuro oriented x3, CN's II-XII intact bilaterally, moves all extremities, no focal motor deficits and no sensory deficits noted Sensorium / Orientation: awake and alert Motor Exam: strength 5/5 throughout Psych mental status grossly normal and thought process normal Skin no rashes or lesions noted and no wounds <Dr. Mai Wang DO - Last Filed: 02/16/23 23:18> Physical Exam Const Vital Signs: 02/16/23 16:18 02/16/23 20:55 Temperature 97.1 F L Temperature Source Temporal Pulse Rate 69 70 Respiratory Rate 17 16 Blood Pressure 100/76 116/61 Blood Pressure Mean 84 79 Pulse Ox 99 97 Oxygen Delivery Method Room Air Room Air [facility] <ROSETTE Bae - Last Filed: 02/16/23 21:44> [facility] Narrative Medical decision making narrative: Patient presenting today due to lumbar back pain that she has had since this morning. She reports a history of chronic lower back pain that worsened today without any known cause. She did not injure her back in any way. She has had adifficult time ambulating today due to the pain. She does appear to be very uncomfortable on exam, she was given IV morphine and Toradol here for pain. Shewas also given IV fluids as she states she has not urinated a whole lot today. Patient has intact strength and sensation but given her degree of pain a lumbar CT will be obtained. She does not have any symptoms concerning for cauda equinasyndrome or spinal abscess. UA obtained to rule out UTI and is negative. She was given additional pain control. CT shows multilevel degenerative disc disease and spondylolisthesis. Patient was given a referral for Dr. Sullivan, prescriptions for prednisone, [place], and naproxen. She has been given strict return instructions will be discharged with stable condition. She is comfortable with plan. Lab Data Labs: Laboratory Results - last 24 hr 02/16/23 20:12 Urine Color Yellow Urine Clarity Clear Urine pH 6.5 Ur Specific [place] 1.015 Urine Protein 15 H Urine Glucose (UA) Normal Urine Ketones Negative Urine Occult Blood 25 H Urine Nitrite Negative Urine Bilirubin Negative Urine Urobilinogen Normal Ur Leukocyte Esterase 25 H Urine RBC 0-5 SEEN Urine WBC 0-5 SEEN Ur Squamous Epith Cells 0-5 SEEN Urine Bacteria 0 SEEN Urine Mucus 0 SEEN Radiography Diagnostic Testing: Clinical Impression(s) from Imaging Studies Lumbar Spine CT 02/16/23 19:21 IMPRESSION: No evidence of acute lumbar spinal fracture or spondylolisthesis. Mild multilevel degenerative disc disease and spondylosis. 1.4 cm nonobstructing stone in the right mid renal pole. Electronically Signed: Debby Berg MD at 21:12 EDT , <Dr. Mai Wang, DO - Last Filed: 02/16/23 23:18> [facility] Narrative Medical decision making narrative: Patient presenting today due to lumbar back pain that she has had since this morning. She reports a history of chronic lower back pain that worsened today without any known cause. She did not injure her back in any way. She has had adifficult time ambulating today due to the pain. She does appear to be very uncomfortable on exam, she was given IV morphine and Toradol here for pain. Shewas also given IV fluids as she states she has not urinated a whole lot today. Patient has intact strength and sensation but given her degree of pain a lumbar CT will be obtained. She does not have any symptoms concerning for cauda equinasyndrome or spinal abscess. UA obtained to rule out UTI and is negative. She was given additional pain control. CT shows multilevel degenerative disc disease and spondylolisthesis. Patient was given a referral for Dr. Sullivan, prescriptions for prednisone, [place], and naproxen. She has been given strict return instructions will be discharged with stable condition. She is comfortable with plan. I have personally performed a face to face assessment of the patient and have reviewed the BERNA Note. I performed a substantive portion of the visit including all aspects of the following. My ely findings include: History is patient is a 27-year-old female presenting with acute on chronic low back pain. It is diffuse in her lower back. No significant midline tenderness. Has been told she has degenerative disc disease in the past and has been referred to physical therapy but has not had time to follow-up. She is about 3 months however she is not currently breast-feeding. She took Tylenolfor pain prior to arrival. She was given IM Toradol with no significant improvement of pain. She has subjective paresthesias of the left lateral leg. Incensed tach strength with plantar and dorsiflexion. No clonus of the lower extremities. Decreased reflexes of the left patella however she has normal Babinski's bilaterally. Would not be surprised if she does have some type of herniated disc but do not think she has signs of cauda equina syndrome, acute cord syndrome, epidural abscess and I do not think she requires emergent MRI. Is given further pain control. Does not have signs of acute urinary retention on bladder scan. Is given some IV fluids as she has had little p.o. intake and having a hard time producing urine. She is given further morphine and Percocet for pain control. We will give her referral for spine surgery. We will give her a short course of [place] as well as prednisone in the emergency room. Given first dose of prednisone in the emergency room. At this time patient does not need to be admitted for debility/intractable pain. Is given return precautions however. Discharged home in stable condition. Other additions or changes: [None] Lab Data Attestation: I reviewed the patient's lab results. Labs: Laboratory Results - last 24 hr 02/16/23 20:12 Urine Color Yellow Urine Clarity Clear Urine pH 6.5 Ur Specific [place] 1.015 Urine Protein 15 H Urine Glucose (UA) Normal Urine Ketones Negative Urine Occult Blood 25 H Urine Nitrite Negative Urine Bilirubin Negative Urine Urobilinogen Normal Ur Leukocyte Esterase 25 H Urine RBC 0-5 SEEN Urine WBC 0-5 SEEN Ur Squamous Epith Cells 0-5 SEEN Urine Bacteria 0 SEEN Urine Mucus 0 SEEN Radiography Diagnostic Testing: Clinical Impression(s) from Imaging Studies Lumbar Spine CT 02/16/23 19:21 IMPRESSION: No evidence of acute lumbar spinal fracture or spondylolisthesis. Mild multilevel degenerative disc disease and spondylosis. 1.4 cm nonobstructing stone in the right mid renal pole. Electronically Signed: Debby Berg MD at 21:12 EDT , Discharge Plan Triage Chief Complaint: Back ED Midlevel Provider: Sveta Awad ED Provider: Mai Wang Dx/Rx/DC Orders Clinical Impression: Lumbar back pain Instructions: ED Back Care Tips Prescriptions: New prednisone 20 mg tablet 40 mg PO DAILY 5 Days Qty: 10 0RF naproxen 500 mg tablet 500 mg PO BID Qty: 14 0RF hydrocodone-acetaminophen 5-325 mg tablet 1 tab PO Q4H PRN PRN (Reason: Pain) 3 Days Qty: 7 0RF No Action 1 1 mg Tablet 1 tab PO DAILY nicotine 22 mg/24 hr Patch 24 Hour 22 mg transdermal DAILY famotidine 20 mg Tablet 20 mg PO DAILY ferrous sulfate 27 mg iron Tablet 287 mg PO DAILY Primary Care Provider: Joe Reeves Referrals: Joe Reeves MD [Primary Care Provider] - Wai Sullivan DO [Med Staff - Active Staff] - 3-5 Days Activity Restrictions/Additional Instructions: Please follow-up with the orthopedic doctor we have referred you to and return for any worsening of your symptoms. Disposition Disposition: Home, Self Care What to do if you have Problems For any increased pain, shortness of breath, bleeding, nausea or vomiting, chestpain, or any unexpected problems, contact your Primary Care Provider. Call [employer] ([phone]) or report to the closest Emergency Room. Call 911 if necessary. 02/16/23 2319 <Electronically signed by Mai Wang DO> Cosigner Signature (if applicable): 02/16/232143 <Electronically signed by Sveta DINERO> CC: Dr. Joe Reeves MD ~ Signed [facility] Work Phone: [phone]) 226-234407-26-2023 History of Present illness Narrative* Debby Reeves MD - 02/14/2023 4:27 PM EDT Chief Complaint Patient presents with: ADD/ADHD HPI Fadumo Hensley is a 27 year old female who presents here today for Above Complaints.. Patient here today to discuss restarting medication for ADHD. Has noticed she has trouble concentrating on phone calls, difficulty accomplishing/completing tasks, overall functioning. States that shewas treated with Adderall XR about a year ago before becoming with daughter Anita. Was getting a 30 mg and 20 mg dosage to take daily. States this was not working well to control symptoms sean and would like to try alternative. Has been on Strattera in the past as well as Wellbutrin. Not currently. She is on Nuvaring for control with negative urine test on 12/27. Using control consistently since then. No periods with the nuvaring and with recent . Has been sexually active with condom use. Denies illicit drug use. Past medical history, appointments, medications, allergies reviewed. 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 Supplies and referrals ordered. Sulma Bartholomew APRN.CNM Generalized anxiety disorder GERD (gastroesophageal reflux disease) Hepatitis C 2017 2018 cured after medication course. High grade squamous intraepithelial cervical dysplasia History of suicide attempt 2014 cutting wrist Juvenile osteochondrosis of lower extremity, excluding foot 2004, resolved Migraine headache 05/26/2011 other Sever's Disease, 2006, resolved Other acne 01/27/2010 Pain in joint, site unspecified AC joint tear, 2006 Patient requested diagnostic testing 04/18/2012 04/18/2012 Patient desires early screening in with sequential testing. Poor support system complicating 04/18/2012 04/18/2012The father of the baby is aware that she is , but does not wish to be involved. Patient states her parents are very supportive. Patient is tearful for some of this visit today due to the father of the baby. She states he has put pressure on her in the past to have an , butshe does not wish to do that. Patient was given a brochure on the care center and WIC. depression PTSD (post-traumatic stress disorder) Rosacea 01/27/2010 Rubella non-immune status 04/22/2012 Skin cancer Teen 04/22/2012 July 04, 2012 Flu vaccine given Telangiectasia 01/27/2010 Tobacco use disorder Previous Surgical History PAST SURGICAL HISTORY Procedure Laterality Date INSERTION OF IUD 12/02/2013 MIRENA IUD 2019 Removed 12/2021 PAST SURGICAL HISTORY OF 01/01/2010 Removal of 4 Mereta Teeth PAST SURGICAL HISTORY OF basal cell carcinoma removed from scalp Family History FAMILY HISTORY Problem Relation Age of Onset Hypertension Mother Heart Father TRIPLE BYPASS SURGERY Hypertension Father Diabetes Father Diabetes Sister No Known Problems Sister No Known Problems Sister No Known Problems Brother No Known Problems Brother No Known Problems Brother Heart Maternal Grandmother from heart problems Heart Maternal Grandfather from heart problems Cancer Maternal Grandfather lung Hypertension Maternal Grandfather No Known Problems Daughter Patient Allergies ALLERGIES Allergen Reactions Zyrtec [Cetirizine * Intolerance tremors Current Medications Current Outpatient Medications on File Prior to Visit Medication Sig Etonogestrel-Ethinyl Estradiol (NUVARING) 0.12-0.015 mg/24 hr vaginal ring Use 1 Each vaginally as directed. INSERT ONE(1) RING VAGINALLY AND LEAVE IN PLACE FOR THREE WEEKS, THEN REMOVE FOR 1 WEEK. ferrous sulfate (IRON ORAL) Take by mouth. PNV no.95/ferrous fum/folic ac ( ORAL) Take by mouth. levonorgestrel (PLAN B ONE-STEP) 1.5 mg tab Take 1 tablet by mouth one time only for 1 dose. albuterol HFA (PROAIR HFA) 90 mcg/actuation inhaler Inhale 2 Puffs as instructed every 4 hours as needed for wheezing/shortness of breath. Used for seasonal allergies No current facility-administered medications on file prior to visit. Social History Social History Tobacco Use Smoking status: Former Packs/day: 1.00 Years: 9.00 Total pack years: 9.00 Types: Cigarettes Smokeless tobacco: Current Tobacco comments: Vapes Vaping Use Vaping Use: current everyday user Substances: Nicotine Devices: Pre-filled or refillable cartridge Substance Use Topics Alcohol use: Not Currently Drug use: Yes Types: Heroin, Marijuana Comment: Patient states I have used multiple drugs in the past Review of Symptoms REVIEW OF SYSTEMS GENERAL: No weight loss, malaise or fevers RESPIRATORY: Negative for cough, hemoptysis, wheezing, COPD, dyspnea or shortness of breath CARDIOVASCULAR: Negative for chest pain, leg swelling, hypertension, CHF or palpitations EXAM: Resp 16 Ht 170.2 cm (5' 7) Wt 83.9 kg (185 lb) LMP 02/22/2022 (Approximate) No BMI 28.98 kg/m General Appearance: Well appearing, alert, in no acute distress, well-hydrated, well nourished.. Skin: Skin color, texture, turgor normal, no suspicious rashes or lesions. Lungs: Lungs clear to auscultation. No wheezing, rhonchi, rales.. Heart: RRR without murmur, gallop, or rubs. No ectopy. Health Maintenance List PNEUMOCOCCAL(1 - PCV) Never done HPV VACCINE(3 - Risk 3-dose series) due on 2010 SPIROMETRY Never done DEPRESSION ASSESSMENT due on 07/22/2023 COVID-19 VACCINE(2 - Pfizer series) due on 08/03/2023 INFLUENZA(1) due on 03/23/2023 ANNUAL PCP TEAM CHRONIC DISEASE VISIT due on 12/20/2023 PAP TESTING due on 12/27/2025 DTAP,TDAP,TD(8 - Td or Tdap) due on 10/18/2032 HEPATITIS B Completed HEPATITIS C SCREENING Completed HIV SCREENING Completed Data reviewed Component Latest Ref Rng & Units 02/14/2023 , Urine neg - pos neg Quality Check ASSESSMENT/PLAN: 1. ADHD (attention deficit hyperactivity disorder), inattentive type - ICD9: 314.00, ICD10: F90.0 (primary diagnosis) Uncontrolled without rx. Will obtain urine drug screen and have patient fill out controlled substance agreement today. If negative/normal, will start on Vyvanse 30 mg and titrate every 1-2 weeks as needed. F/u in 4 weeks. Discussed she should continue control to prevent while on stimulants. - HCG QUAL UR B/O - TOX SCREEN ROUT UR 2. Controlled substance agreement signed - ICD9: V58.69, ICD10: Z79.899 See above. - HCG QUAL UR B/O - TOX SCREEN ROUT UR 3. Encounter for test, result unknown - ICD9: V72.40, ICD10: Z32.00 Negative. - PAIN PANEL, UR QUANT Medical Decision Making: Problems: Moderate: 1+ chronic illnesses with change Data: Unique test result(s) reviewed: 1 Unique test(s) ordered: 3+ Medical Decision Making Level: 4 - Moderate Debby Reeves MD documented in this encounterBu[facility]07-05-[facility]23 History of Present illness Narrative* Kylee Gil, FONDANT COOKER.QUANTITATIVE ANALYST MARKETING - 01/24/2023 2:47 PM EDT Virtual Visit: This is a virtual visit using ilustrum video visit. It required patient-provider interaction for themedical decision making as documented below. I have communicated my name and active licensure. The patient s identity and physical location wereverified at the time of this visit. Either the patient or their legal artist representative has been informed of the risks and benefits of -- and alternatives to -- treatment through a remote evaluation andconsents to proceed with the evaluation remotely. HPI: Requests Mirena IUD with LEEP procedure. Requests Nuva Ring until then. Used Nuvaring in high school with no problems or side effects. Finished within the past week. Has not had menses since childbirth. ROS Denies family history of clotting disorders. Denies personal history of DVT, CVD, hypertension or migraine with aura. Vaping nicotine. ASSESSMENT/PLAN: 1. General counseling and advice for contraceptive management - ICD9: V25.09, ICD10: Z30.09 (primary diagnosis) - requests Nuvaring until possible having Mirena IUD inserted when her LEEP is done. - ETONOGESTREL 0.12 MG-ETHINYL ESTRADIOL 0.015 MG/24 HR VAGINAL RING 2. Encounter for prescription for nuvaring - ICD9: V25.49, ICD10: Z30.018 - Used Nuvaring in high school with no problems or side effects. - ETONOGESTREL 0.12 MG-ETHINYL ESTRADIOL 0.015 MG/24 HR VAGINAL RING Follow-up as needed. Kylee Gil APRN.ANISHA I spent a total of 15 minutes on the date of the service which included preparing to see the patient, [id number] patient care, completing clinical documentation, obtaining and/or reviewing separately obtained history, performing a medically appropriate examination, counseling and educating the pat ient/family/caregiver, and ordering medications, tests, or procedures. Signature: Kylee Gil APRN.CNP Date: January 24, 2023 Time: 2:47 PM documented in this encounterBucyrus [facility]07-05-2023 Miscellaneous Notes* Telephone Encounter - Earle Munoz LPN - 01/24/2023 1:21 PM EDT Pt notified and appointment scheduled. Earle Munoz LPN * Telephone Encounter - Carmelita Millan MD - 01/24/2023 1:13 PM EDT She can see her to rx the control. Add in w/ AG. Thanks. Sent rx for plan b Carmelita Millan MD * Telephone Encounter - Carmelita Millan MD - 01/24/2023 1:02 PM EDT Schedule virtual visit for today to discuss this and get rxs sent. Thanks. . Carmelita Millan MD * Telephone Encounter - Patricia Lakhani RN - 01/24/2023 12:42 PM EDT Patient calling stating she had unprotected intercourse last night and is asking for a Plan B to besent to her pharmacy. Patient is not currently on any control and would also like Nuvaring anthony called into pharmacy to make sure she is protected until upcoming surgery on 03/22. Patient states she used Nuvaring in past and did not have any problems with it. Patient does vape. Patient also qu estioning whether she needs 1 or 2 Plan B's d/t her weight. Weight listed is 184. Patient would like a call back. Patricia Lakhani RN documented in this encounterBucyrus [facility]06-26-2023 Miscellaneous Notes* Telephone Encounter - Carmelina Gonzalez LPN - 01/15/2023 2:13 PM EDT Patient is ok with having leep procedure done at the hospital. Would like soonest available * Telephone Encounter - Carmelita Millan MD - 01/15/2023 11:48 AM EDT At this point I am not comfortable proceeding in the office. This is not something we can stop nursing home through. Once I start I have to keep going and finish to control the bleeding. Please let her know we will schedule her in the OR so she can IV meds for anxiety and pain, she doesn't have to be completely asleep but she will be comfortable so we can do it safely and completely. Thanks. If I need to fill out surgery sheet please forward that to me. Thanks. Carmelita Millan MD * Telephone Encounter - Marlon Cortez RN - 01/10/2023 1:15 PM EDT I contacted patient and she is getting anxious thinking about this as an office procedure. She is aware of the dates we have scheduled her. She will call us back next week if she wants to proceed with in office procedure or schedule in hospital. She states she has PTSD from a 5 hour MOHS procedure done previously.Leave phone note open for her call with decision JEAN PIERRE. * Telephone Encounter - Earle Munoz LPN - 01/09/2023 3:46 PM EDT Again attempted to contact pt, voicemail left asking pt to contact the office. PinkelStart message alsosent to pt. Will await further response from pt. Earle Munoz LPN * Telephone Encounter - Joshua Delgado RN - 01/03/2023 12:02 PM EDT Left message for patient to call office. See provider's note below. I did schedule LEEP and IUD insertion appointments - need to verify those are okay for patient. Joshua Delgado RN * Telephone Encounter - Carmelita Millan MD - 01/03/2023 11:43 AM EDT Not same day. Schedule LEEP and 2-3 weeks after she can have Mirena inserted/follow up LEEP. Carmelita Millan MD * Telephone Encounter - Joshua Delgado RN - 01/03/2023 11:29 AM EDT Patient had to cancel visit for today that was for 6 week PP and discuss LEEP. States she thought more about LEEP and just wants to proceed with scheduling it in office. She also decided that she wants the Mirena IUD. Asking if those can be done same day. If not how far between appointments will she need? She is 6 weeks PP today and did not want to reschedule her visit from today. IUD order pending too. Leep order was previously filed. Patient requesting Sunday appointments if possible or before 2pm other days if needed. Please advise. Joshua Delgado RN documented in this encounter[facility]06-[facility]23 Miscellaneous Notes* Addendum Note - Carmelita Millan MD - 12/27/2022 2:43 PM EDTAddended by: CARMELITA MILLAN on: 12/27/2022 02:43 PM Modules accepted: Orders * Addendum Note - Varsha Vann Ma - 12/27/2022 1:43 PM EDTAddended by: VARSHA VANN MA on: 12/27/2022 01:43 PM Modules accepted: Orders documented in this encounterBucyrus [facility]06-07-2023 Instructions* Patient Instructions* Varsha Vann Ma - 12/27/2022 1:18 PM EDT YOUR RECOVERY It may take a few weeks for your cervix to heal. While your cervix heals, you may have: - Vaginal bleeding (less than a normal menstrual period) - Mild cramping - A brown-black vaginal discharge (similar to coffee grounds) which is a result of the paste used to help stop bleeding from the procedure Do NOT put anything in the vagina for 1 week after your colposcopy if your doctor does a biopsy of your cervix. This includes sex, tampons, and douches. If you have any discomfort, you may take an over the counter pain medication (motrin, advil, ibuprofen, tylenol, etc). If this does not relieve your discomfort, contact your doctor's office for a prescription strength pain medication. It is okay to wear a sanitary pad until the discharge and spotting stops. RISKS Although problems seldom occur with colposcopy, there can be some complications. You may feel faintduring and shortly after the procedure as well as have some bleeding and vaginal discharge after the procedure. There is also a risk of infection after the procedure. These complications are rare andcan be easily treated. You should contact you doctor is you have any of the following: - Heavy bleeding (more than your normal period) - Bleeding with clots - Severe abdominal pain - Fever (more than 100.4F) - Foul smelling vaginal discharge RESULTS If a biopsy was taken, we will have the results of your biopsy in 1-2 weeks. If you do not hear theresults of your biopsy after 2 weeks, please contact your physicians office for the results. Depending on the biopsy results, your doctor will determine your follow up plan which may include further testing or treatments. STAYING HEALTHY After the procedure, you will need to see your doctor for follow up visits during the year. At these visits your doctor will check the health of your cervix with a pap smear. After three normal pap smears, your doctor will allow you to return to having exams once a year. If you have another abnormal pap smear, you may need closer follow up for longer or you may need additional treatment. By making a few lifestyle changes after the procedure, you can help protect the health of your cervix: - Have regular pelvic exams and pap smears as ordered by your doctor. - Stop smoking as smoking increases your risk of developing a cancer of the cervix - If you have more than one sexual partner, limit your number of partners and use condoms to reduceyour risks of STDs. If you have any additional questions, please contact your doctor's office. documented in this encounterBu[facility]06-07-2023 History of Present illness Narrative* Carmelita Millan MD - 12/27/2022 1:13 PM EDT Fadumo is a 27 year old Female who presents today for a colposcopy. The patient's last pap smear was h/o HSILwhen from January 2022. Patient has a history of abnormal pap: Yes. The patient has had priortreatment: none. test: negative UNIVERSAL PROTOCOL / SAFETY CHECKLIST Procedure to be Performed: colposcopy with possible biopsy and ECC Sign In: A Moment of CARE was completed. Personnel directly involved with the procedure wore the appropriate PPE (Personal Protective Equipment). Patient/Surrogate Stated/Verified: PATIENT VERIFIED(optional for EMERGENT procedures): Patient name, Date of , Relevant allergies, and The intended procedure Time Out Communication: Intended patient and procedure match the source documents. Consent documented and matches the intended procedure. Relevant labs, photos, and/or imaging studies have been reviewed. No implant(s) inserted. Sign Out: SIGN OUT (optional for EMERGENT procedures): All specimen containers correctly labeled. All instruments, equipment, possible retained foreign bodies accounted for. Post-procedure follow-up management communicated and Plan of Care Visit completed when applicable. Carmelita Millan M.D. PROCEDURE: EXTERNAL GENITALIA: Normal in appearance without lesions VAGINA: Normal in appearance without lesions CERVIX: Speculum placed in vagina and excellent visualization of cervix achieved. Cervix swabbed x 3 with 3% acetic acid solution. Cervix grossly normal. Squamocolumnar junction visualized. acetowhite changes noted diffusely, punctations noted -at 6 oclock, mosaicism noted diffusely, and atypical va sculature noted -none. BIOPSY: Done at 3:00, 6:00, 9:00, and 12:00 ECC: done HEMOSTASIS: Obtained with silver nitrate and pressure Procedure Summary: Patient tolerated procedure well. ASSESSMENT: HPV effect PLAN: Specimens labeled and sent to Pathology. Will notify patient of results in 1-2 weeks. Post-procedure instructions reviewed and written material given to the patient. Carmelita Millan MD documented in this encounterBu[facility]06-01-2023 Miscellaneous Notes* Telephone Encounter - Aliyah Khoury RN - 12/21/2022 12:48 PM EDT Patient called back. Wants Colposcopy done next week while she is off work. Scheduled for 12/28. Her 6 week PP is scheduled on 01/03. Aliyah Khoury RN * Telephone Encounter - Patricia Lakhani RN - 12/21/2022 9:51 AM EDT Left message to call office. Please schedule patient for in office colposcopy. Patricia Lesvia RN * Telephone Encounter - Chrissy Seay MD - 12/21/2022 9:37 AM EDT Doesn't look like pt had follow up - would recommend colposcopy with ECC first availablefirst. ECC was previously negative. Want to make sure nothing has changed and pt ok for LEEP ratherthan CK. Thanks * Telephone Encounter - Carmelina Gonzalez LPN - 12/21/2022 9:08 AM EDT Patient had a 11/22/2022. Left message to call office. Does patient want Leep scheduled at hospital? When is patient returning to work? * Telephone Encounter - Earle Munoz LPN - 12/19/2022 3:57 PM EDT Pt called to schedule her LEEP. Pt was offered 01/05/23 and d/t being back to work pt is not able todo that date. Please advise where you want her worked into your schedule. Earle Munoz LPN documented in this encounterBucyrus [facility]05-04-2023 Discharge summary Author Maggy Luu [facility] November 23, 2022 4:54pm Note Date/Time November 23, 2022 4:54pm [facility] Medical Records Department [address] [place] [address] Instructions for Home/Discharge Instructions 11/23/22 1653 MR#: [id number] Acct: [id number] Name: FADUMO HENSLEY Rep #:[id number] : 1995 27 From: Maggy Wilkinson MD PCP: Dr. Joe Reeves MD Status :ADM IN Discharge Instructions Procedure Vaginal Delivery Diet Discharge Diet: No restrictions Activity May resume sexual activity in: 6-8 weeks Dressing / Incision Call your doctor if you observe: Fever of 101 or Higher, Inability to urinate, Using more than 1 pad per hour and Uncontrolled pain Follow Up Care Please Follow Up With: Maggy Chatman MD When: 1-2 weeks post and again at 6 weeks post . [phone] Test Results: Test results from this visit will be discussed in further detail at your follow- up appointment, if applicable. Discharge Plan Admission Admit Date/Time: 11/22/22 07:05 Attending Provider: Carmelita Millan Primary Care Provider: Joe Reeves Discharge Orders/Prescriptions Prescriptions: No Action 1 1 mg Tablet 1 tab PO DAILY nicotine 22 mg/24 hr Patch 24 Hour 22 mg transdermal DAILY famotidine 20 mg Tablet 20 mg PO DAILY ferrous sulfate 27 mg iron Tablet 287 mg PO DAILY Referrals / Follow Up: Joe Reeves MD [Primary Care Provider] - 11/23/22 8028<Electronically signed by Maggy Chatman MD>Maggy Chatman MD CC: Dr. Joe Reeves MD ~ Signed [facility] Work Phone: 1(495) 220-622605-04-[address] Briones [facility] November 23, 2022 8:53am Note Date/Time November 23, 2022 8:53am [facility] Medical Records Department [address] [place] [id number] Progress Note - OBGYN 11/23/22 0852 MR#: [id number] Acct: [id number] Name: FADUMO HENSLEY Rep #:[id number] : 1995 27 From: Vale Briones MD PCP: Dr. Joe Reeves MD Status :ADM IN Location: [id number] Subjective Subjective Patient reports intense cramps - worse when . Objective Data Objective Data Vital Signs: Vital Signs Temp Pulse Resp BP Pulse Ox O2 Del Method 99.9 F H 85 18 123/64 H 99 Room Air 11/22/22 19:42 11/23/22 04:24 11/23/22 04:23 11/23/22 04:24 11/22/22 19:42 11/23/22 04:23 Oxygen Delivery Method Room Air Weight: 204 lb 5.896 oz Body Mass Index (BMI) 32.1 Intake & Output: Intake and Output for Last 24 Hours 11/21/22 11/22/22 11/23/22 23:59 23:59 23:59 Intake Total 3138.91 / 3138.91 Output Total 1600 / 1600 600 / 600 Balance 1538.91 / 1538.91 -600 / -600 Lab / Micro Data Result Diagrams: 11/22/22 07:35 Labs: Laboratory Results - last 24 hr 11/22/22 07:35: Blood Type A POSITIVE, Antibody Screen NEGATIVE 11/22/22 08:58: POC Glucose 89 11/22/22 12:45: POC Glucose 85 11/22/22 15:21: POC Glucose 92 11/22/22 16:36: POC Glucose 83 11/22/22 19:56: POC Glucose 85 11/23/22 05:19: POC Glucose 100 Physical Exam Const alert, oriented x3 and no apparent distress HEENT normocephalic GI soft to palpation, non-tender and non-distended GI Narrative: fundus firm, mid & below umbilicus Extremity normal to inspection and no calf tenderness Assessment & Plan (1) Gestational diabetes, diet controlled: COMMENT: PPD#1 (2) (spontaneous vaginal delivery): PLAN: Plan FBS 100 this AM. Plan for PP screening. Cramps - patient reassured this is common. May be more intense d/t her back problems. IM toradol ordered. Routine PP care. 11/23/2253 <Electronically signed by Vale Briones MD> Cosigner Signature (if applicable): CC: ~ Signed [facility] Work Phone: 1(399) 116-294105-04-2023 History of Present illness Narrative* Joshua Delgado RN - 11/23/2022 9:09 AM EDT Patient delivered via by Dr. Millan on 11/22/22 at [facility]. See OB history. Joshua Delgado RN documented in this encounterBucyrus [facility] Hospital05-03-2023 Procedure [facility]05-03-2023 History and physical note Author Dr. Millan [facility] November 22, 2022 9:10am Note Date/Time November 22, 2022 9:03am [facility] Medical Records Department [address] [place] [address] H&P Exam - IMPROVEMENT COORDINATOR 11/22/22 0900 MR#: [id number] Acct: [id number] Name: FADUMO HENSLEY Rep #:[id number] : 1995 27 From: Carmelita Millan MD PCP: Dr. Joe Reeves MD Status :ADM IN Location: [id number] HPI - General General Date of Admission: 11/22/22 Date of Service: 11/29/22 Chief Complaint: induction of labor HPI Narrative FADUMO HENSLEY, is a 27 F 2 para 1 at 39 weeks for induction of labor due to diet-controlled insulin diabetes that was only diagnosed 2 weeks ago. That is when she had her 3-hour GTT done. is also been complicated todate by history of drug and alcohol abuse in the past. She has not used during this according to her. She does use nicotine. She has a history of abnormal Pap smears, mild intermittent asthma, and hepatitis C that was treated and she is now considered cured of that. Maternal Data Information ROSS Calculator Estimated Delivery Date Method Current WG Current Estimate 11/29/22 Manual 39w 0d Final ROSS: 11/29/22 Gestational age: 39 0/7 [facility] Medical History (Updated 11/22/22 @ 09:[address] Carmelita Millan MD) ADHD Anxiety Asthma Depression Gestational diabetes Headache Lower back pain depression Skin cancer Home Medications [id number] 1 mg tablet 1 tab PO DAILY 10/28/22 [History Last Taken 11/14/22] famotidine 20 mg tablet 20 mg PO DAILY indigestion 11/15/22 [History Last Taken 11/14/22] ferrous sulfate 27 mg iron tablet 287 mg PO DAILY anemia 11/15/22 [History Last Taken 11/13/22] nicotine 22 mg/24 hr daily transdermal patch 22 mg transdermal DAILY 11/15/22 [History Last Taken 11/14/22] Allergy/AdvReac Type Severity Reaction Status Date / Time cetirizine [From [facility]] Allergy difficulty Verified 10/28/22 20:56 breathing, racing heart Surgical History (Updated 11/22/22 @ 07:50 by Sandra Dinh) History of surgery Social History Smoking Status: Former smoker details: Occasionally substance use type: does not use History Elective abortions Hx Para 1 Spontaneous abortions Hx # Term Pregnancies Ectopic pregnancies Hx # Pregnancies Multiple births # of living children ROS Constitutional Constitutional: Denies fatigue, fever(s) or malaise Eyes Eyes: Denies change in vision ENT HEENT: Denies dizziness or headache(s) Cardiovascular Cardiovascular: Denies chest pain, dyspnea or lightheadedness Respiratory/Chest Respiratory/Chest: Denies cough or dyspnea Gastrointestinal Gastrointestinal: Denies change in bowel habits Genitourinary Genitourinary: Denies burning urination or genital lesions Integumentary Integumentary: Denies rash Neurologic Neurologic: Denies confusion, dizziness, headache(s), numbness or weakness Vital Signs Vital Signs Vital Signs: 11/22/22 07:39 11/22/22 07:39 11/22/22 08:54 Pulse Rate 94 Blood Pressure 103/67 123/75 H BP Systolic 103 123 BP Diastolic 67 75 11/22/22 08:54 Pulse Rate 90 Blood Pressure BP Systolic BP Diastolic Weight Weight: 92.7 kg Body Mass Index (BMI) 32.1 Physical Exam Const alert and no apparent distress General Appearance: cooperative HEENT normocephalic Resp normal respiratory effort Cardio regular rate GI soft to palpation GI Narrative: gravid, nontender, appropriate for gestational age Extremity no calf tenderness General Extremity: edema Skin no wounds Rashes: No rashes noted Psych activity/motor behavior normal Labs Labs Labs: Blood Type A POSITIVE Antibody Screen NEGATIVE Hct 30.6 % (37-47) L Hgb 10.2 g/dL (12.0-15.0) L Syphilis Total Ab Non-reactive Chlamydia DNA (JESSICA) Negative (Negative-) Neisseria gonorrhoeae DNA (JESSICA) Negative (Negative-) Assessment & Plan (1) High risk multigravida: PLAN: Risk benefits and alternatives to induction labor him discussed with patient, questions were answered to her satisfaction she desires to proceed. Wewill proceed with Alvarado and Pitocin induction, artificial rupture membranes. May have routine pain control measures as desired. Estimated weight is less than 4500 g and pelvis clinically adequate to expect vaginal delivery. We will monitor blood sugars and labor per protocol. Estimated weight is less than 4500 g clinically and pelvis is clinically adequate to expect vaginal delivery. Procedure note: Patient cervix was 270-2 station. Alvarado catheter placed over the stylette in usual sterile fashion with artificial rupture membranes occurring during this time. The balloon was inflated to 30 cc with normal saline and placement over the internal os was confirmed. Patient and fetus tolerated the procedure well. Will initiate group B strep prophylaxis as well. (2) Gestational diabetes, diet controlled: (3) 39 weeks gestation of : 11/22/22 0910 <Electronically signed by Carmelita Millan MD> Cosigner Signature (if applicable): CC: Dr. Joe Reeves MD; Dr. Carmelita Millan MD~ Signed [facility] Work Phone: 1(134) 553-125804-26-2023 Instructions* Patient Instructions* Elli Bui RD - 11/15/2022 2:16 PM EDT Goals: Fasting glucose <95 mg/dL; 1 hr glucose ,140 mg/dL, 2 hr glucose ,120 mg/dL; mean glucoseof 86 mg/dL. 1. Distribute carbohydrate evening throught out the day, Choose whole grain starches and grains, avoid white and refined grains and sources of concentration sugars . Carbohydrates are the starches, fruits and milk group and is defined as 15 grams per serving/choice. 2. Keep breakfast at 15-30 grams carbohydrate; meals 30-45 grams and snacks 15- grams of carbohydrate, include healthy protein in meals and snacks. 3. Distribute meals and snacks every 2-3 hours. 4. Aim for 28 grams of fiber. 5. Limit saturated fat, choose lean proteins, healthy fast such as olive oil, canola oil, avocados,nuts/seeds, etc. 6. . Daily exercise of 30-60 minutes documented in [place] encounterWanda Ville [address]-26-2023 History of Present illness Narrative* Elli Bui, RD - 11/15/2022 1:45 PM EDT [facility] Nutrition Therapy: Virtual Consult - Initial Assessment I have communicated my name and active licensure. The patient s identity and physical location wereverified at the time of this visit. Either the patient or their legal artist representative has been informed of the risks and benefits of -- and alternatives to -- treatment through a remote evaluation andconsents to proceed with the evaluation remotely. Nutrition Diagnosis: Altered nutrition-related lab values, related to, and endocrine dysfunction, as evidenced by elevated glucose tolerance tests . RECOMMENDED MALNUTRITION DIAGNOSIS: NO MALNUTRITION IDENTIFIED NUTRITION CARE PLAN Nutrition Intervention 11/15/2022 modify type and amount of food or beverage Goals: Fasting glucose <95 mg/dL; 1 hr glucose ,140 mg/dL, 2 hr glucose ,120 mg/dL; mean glucoseof 86 mg/dL. 1. Distribute carbohydrate evening throught out the day, Choose whole grain starches and grains, avoid white and refined grains and sources of concentration sugars . Carbohydrates are the starches, fruits and milk group and is defined as 15 grams per serving/choice. 2. Keep breakfast at 15-30 grams carbohydrate; meals 30-45 grams and snacks 15- grams of carbohydrate, include healthy protein in meals and snacks. 3. Distribute meals and snacks every 2-3 hours. 4. Aim for 28 grams of fiber. 5. Limit saturated fat, choose lean proteins, healthy fast such as olive oil, canola oil, avocados,nuts/seeds, etc. 6. . Daily exercise of 30-60 minutes Nutrition Monitoring & Evaluation: blood sugars in target range Need for Follow up: as needed Patient presents for initial MNT as relates to gestational diabetes now at 38 weeks gestation. Has made changes to diet for better choices. Blood sugars have come done last few days to normal range. Intake generally appropriate. Includes regular exercise, less last few weeks. Patient's symptoms are: elevated blood sugars Diet History: Today 70 Breakfast - eggs, Snack - yogurt Lunch - salad, turkey tacos Snack - fruit Dinner - burger, if bad taco terry, burgers, nuggets Snack - as above Beverages - water -5-6 bottles Alcohol- no Vitamins/Supplements - , iron 164--71 Usually around before meals na After meals 160 range after Activity: Activities of Daily Living: varies Additional Activity: Lightly active (Light exercise: planned physical activity 1-3 days/week) One x per week to gym Walk a couple x Anthropometrics: Height: Last 1 Encounter Ht Readings: Date: Ht: 11/15/2022 167.2 cm (5' 5.83) Weight: Last 1 Encounter Wt Readings: Date: Wt: 11/15/2022 92.1 kg (203 lb) Body mass index is 32.93 kg/m . Resting Metabolic Rate: 1661 Malnutrition Screening Significant unintentional weight loss? No Eating less than 75% of usual intake for more than 2 weeks? No Potential Signs of Inflammation: no identifiable sources Education Materials Provided: None this visit READINESS TO LEARN Cognitive ability: Alert and oriented Motivation to learn: Interested Family support: Unable to assess - Family not present Instruction provided to: Patient Patient learns best by: Individual Instruction Factors affecting learning: None Physical limitations affecting learning: None Referred by: Puma BOWMAN Billing Type: Initial Assess/15 min 1 unit SIGNATURE: Elli Bui RD PATIENT NAME: Fadumo Hensley DATE: 11/15/2022 TIME: 1:48 PM documented in this encounterBucyrus [facility]04-26-2023 History of Present illness Narrative* Andrew Rogers RN - 11/15/2022 10:01 AM EDT DIABETES CARE AND EDUCATION VISIT Location: [place] Type of visit: Virtual (with video) individual I have communicated my name and active licensure. The patient's identity and physical location wereverified at the time of this visit. Either the patient or their legal artist representative has been informed of the risks and benefits of -- and alternatives to -- treatment through a remote evaluation andconsents to proceed with the evaluation remotely. PATIENT'S MAIN CONCERN TODAY: New dx of GDM Support person present for education today: none Cognitive ability: Alert and oriented Motivation to learn: Interested Learning barriers identified by educator: none Method of instruction: written, verbal, demonstration, and computer DIABETES FINDINGS: Monitoring: Patient is checking, she reports low sugars more than high sugars in the past few days.Lower 60s and symptomatic, we reviewed basic treatment of lows and importance of communicating withphysician if experiencing more lows given she is not on any agents that should be causing lows, encouraged to follow up after delivery if having reactive hypoglycemia Meal Planning: basics of meal planning and importance of including protein with carbs reviewed Problem Solving:hypoglycemia and hyperglycemia reviewed Physical Activity: benefits of activity discussed Reducing Risks: importance of managing sugars to avoid complications HANDOUTS: Referred to website to download a copy of the GDM book if desired. LEARNING RESPONSE: Monitoring glucose: Demonstrated understanding/competency today or at previous visit POSSIBLE FUTURE TOPICS: 1. DIABETES CARE AND EDUCATION PLAN: Individual follow-up Time Spent (Minutes): 30 This visit note will be communicated to the healthcare provider via access to shared medical record. SIGNATURE: Andrew Rogers RN PATIENT NAME: Fadumo Hensley DATE: November 15, 2022 TIME: 10:01 AM documented in this encounterBucyrus Community Hospital04-26-2023 Miscellaneous Notes* Quick Notes - Chey Melgar APRN.KRYSTYNA - 11/15/2022 9:09 AM EDT BUBBA-S: Fadumo Hensley is a 27 year old female who presents at 38w0d with ROSS:11/29/2022, by Last Menstrual Period for a routine visit. Denies headache, visual changes, chest pain, shortness of breath, vaginal bleeding, leakage of fluid, or dysuria. Increased anxiety over GDM, new job, GBS positive.Testing BG 4 times a day but forgot log. O: See flow sheet Gen: No apparent distress Abd: Gravid, nontender S=D Per patient recall BG fasting all below 95 and a few 2hr PP above 120 in last week ASSESSMENT/PLAN: 1. 38 weeks gestation of P: 1) Labor instructions reviewed and when to call 2) Continues nicotine patch, no smoking 3) Did not bring BS log, will send when she gets home. 4) Requesting IOL at 39 weeks. Due to limited PN care, GDM with late diagnosis will proceed with IOL. Reviewed r/b/a and consent reviewed and signed. IOL at 39 weeks on 11/22/22 at 0700 Chey Melgar APRN.CNM I spent 30 minutes in the visit, with more than 50% of the total [id number] time of the visit in counseling / coordination of care. documented in this [facility]Bu[facility]04[facility] Instructions* Patient Instructions* Malik Kee Casket Trimmer - 11/15/2022 8:52 AM EDT SEQUENTIAL SCREENINGS [facility] offers sequential screenings for women who are interested in screenings for chromosomal abnormalities and certain defects during a . The sequential screen combinesultrasound and blood tests to determine the risk of chromosomal abnormalities, including Down's Syndrome (Trisomy 21) and Trisomy 18, as well as open neural tube defects including spina bifida. Ultrasound examination is performed between 11 weeks and 13 weeks gestational age. Blood tests are drawn after the ultrasound and again later in the between 15 and 21 weeks gestational age. Please let your physician know if you are interested in this testing. It will require an appointment withour sonography technician. This is not an ultrasound performed by a physician in our office during a routine visit. SIGNS AND SYMPTOMS OF LABOR 1. Contractions every 10 minutes or more often 2. Clear, pink, or brownish fluid (water) leaking from vagina 3. Feeling that baby is pushing down, pressure 4. Low, dull backache 5. Cramps that feel like a period 6. Cramps with or without diarrhea If you notice any of the above symptoms, contact our office at [phone] and ask to speak with anurse. After hours, you can call doctors registry at [phone] OR call [facility] at [phone] ask to have the doctor fire prevention forester paged. If you consider this an emergency, dial or go to your nearest emergency department. NEED HELP? Are you dealing with a violent or abusive relationship? Are you a victim of rape or sexual assult? Call [facility] ([facility] 24 hour Crisis Hotline: 874.539.3158 or 754-993-7097. MANUAL Your Guide to a Healthy manual is now on-line. Visit [email or web address] to download your free copy documented in this encounterBucyrus [facility]04-20-[facility]23 Miscellaneous Notes* Telephone Encounter - Aliyah Khoury RN - 11/09/2022 9:07 AM EDT Patient notified. US hold removed. Aliyah Khoury RN * Telephone Encounter - Sulma Bartholomew APRN.CNM - 11/08/2022 8:01 PM EDT Patient just completed growth US on 11/02/22. She does not need another at this time. EFW 84%, KIM normal at 21. Please have patient keep scheduled appointment and we can discuss her concerns at that time. Thank you! Sulma Bartholomew APRN.CNM * Telephone Encounter - Marlon Cortez RN - 11/08/2022 2:47 PM EDT Patient recently diagnosed with GDM. Patient would like to discuss possible section at hernext visit. Do you want to order a growth ultrasound next week? Last ultrasound 11/02. I have placed the next available ultrasound 11/15 11am on hold for her. Please file order if you are in agreement. documented in this [facility]Bu[facility]04[facility]19-[facility]23 Miscellaneous Notes* Telephone Encounter - Marlon Cortez RN - 11/08/2022 2:35 PM EDT Patient informed and transferred to chief diversity officer to make appointment * Telephone Encounter - Sulma Bartholomew APRN.CNM - 11/08/2022 2:16 PM EDT Orders signed. Sulma Bartholomew APRN.CNM * Telephone Encounter - Marlon Cortez RN - 11/08/2022 1:28 PM EDT Please file orders then we will call patient ----- Message from Sulma Bartholomew APRN.CNM sent at 11/08/2022 12:41 PM EDT ----- Please notify patient that 2 levels were elevated on GTT which warrants a diagnosis of GDM. Please order supplies and order appropriate consults for patient. Sulma Bartholomew APRN.CNM documented in this encounterBucyrus [facility] Hospital04-19-2023 History of Past illness Narrative* Problem Noted Date Resolved Date Abnormal glucose complicating 11/09/1901/01/2023 Anemia during in third trimester 11/0801/01/2023 Diet controlled gestational diabetes mellitus (GDM) in second trimester 11/08/2022 01/01/2023 Overview: 11/08/22- 2 levels out of 3 elevated. Supplies and referrals ordered. Sulma Bartholomew APRN.CNM Positive GBS test 11/06/2022 01/01/2023 Elevated glucose 11/06/2022 01/01/2023 Overview: 11/06/22- 1 hour elevated- 3 hour ordered. Sulma Bartholomew APRN.CNM Anemia 11/06/2022 01/01/2023 Overview: 11/06/22- iron studies ordered. Start oral iron. Repeat cbc 4 weeks. Sulma Bartholomew APRN.CNM Needle stick, hypodermic, accidental, initial en counter 08/14/2022 01/01/2023 Overview: On 08/12/22. See ID consult note from 08/14/22. SW Spotting in early 04/13/202212/21 Overview: 04/13/2022atient was seen in the [place] ER for spotting on April [address] Briones for follow-up and serum quantitative hCGs were done. Patient denies any bleeding since then.TKRN Engages in vaping 04/13/2022 01/01/2023 Overview: 04/13/2022 Patient states she has been vaping nicotine for the past 5 years. She recently saw her PCP Dr. Reeves and has tried using nicotine patches. I have advised her of the [place] tobacco quit line and [facility] smoking cessation program. I have discussed the risks of vaping during and advised patient to continue trying to quit.TKRN History of macrosomia in inf ant in prior , currently 04/13/2022 01/01/2023 Overview: 04/13/2022 Patient's previous child weight was 9 pounds. TKRN Patient request for diagnostic testing 01/01/2023 Overview: 04/13/2022atient desires aneuploidy screening. I have given her contact information for [employer] to check on insurance coverage. Patient considering horizon screening testing. Contact information for the [employer] rep given to patient to check on insurance coverage.Marlon Cortez RN HSIL (high grade squamous in traepithelial lesion) on Pap smear of cervix 01/10/2022 01/01/2023 Overview: 04/26/22- HSIL on pathology - repeat colposcopy post . Sulma Bartholomew APRN.CNM 01/10/22- Colposcopy ordered. Sulma Bartholomew APRN.CNM Urinary incontinence 04/27/2020 04/28/2020 ASCUS with positive high risk HPV cervical 09/2501/01/2023 Overview: 09/26/19 Colposcopy ordered. Kylee Gil APRN.ANISHA Vapes nicotine containing substance 09/07/2015 01/01/2023 Overview: Started at age 14 up to 2 PPD. Quit 06/2015 Last Assessment & Plan: Assessment: Patient very interested in cessation PLAN: Nicotine patches- will try to decrease nicotine level on patches. Uncomplicated asthma 09/07/2015 09/18/2019 Overview: 04/18/2012Patient has a history of asthma. She uses an albuterol inhaler when necessary. Family history of leukemia 02/04/201501/01 Routine gynecological examination 12/09/2014 09/18/2019 Overview: [facility]. Chlamydia infection 09/23/2013 09/18/2019 with adoption planned 04/22/2012 10/08/2012 Tobacco use in 04/18/2012 013 Overview: 04/18/2012Pt smokes one to 2 cigarettes a day, down from one half pack per day. Discussed risks of smoking during . Advised pt to quit. Last Assessment & Plan: 07/18/12: Pt is no longer smoking; states she quit about 2weeks ago. Rosario Lam NP History of depression 04/18/2012 01/01/2023 Overview: 2Pt has a history of anxiety/depression diagnosed in 2010. She is currently taking Prozac prescribed by Dr. Reeves. Patient states that she did have depression. Discussed increased risks of depression during and and importance of reporting the development or worsening of symptoms should they occur. Patient states she did have a suicidal attempt in 2010 and was admitted to [facility]. She states she last had suicidal thoughts about 5 years ago. TKRN History of alcohol abuse 04/18/2012 023 Overview: 04/18/2012Patient states before she found out she was she consumed about 10 beers every other day. She denies any alcohol use since finding out she was . Discussed risks of alcohol consumption during . Patient denies any other drug use. Family history of congenital heart defect 201101/01/2023 Overview: 04/18/2012Father of the baby's uncle born with cerebral palsy and a heart defect. Surgical correction was done. His uncle at age 11. Depression 05/26/2011 09/18/2019 Telangiectasia 01/27/2010 09/18/2019 Rosacea 01/27/2010 09/18/2019 Other acne 01/27/2010 09/18/2019 documented as of this encounter (statuses as of 01/16/2023) [facility] History of Past illness Narrative* Problem Noted Date Resolved Date Abnormal glucose complicating 11/09/1901/01/2023 Anemia during in third trimester 11/0801/01/2023 Diet controlled gestational diabetes mellitus (GDM) in second trimester 11/08/2022 01/01/2023 Overview: 11/08/22- 2 levels out of 3 elevated. Supplies and referrals ordered. Sulma Bartholomew APRN.JULISSA Positive GBS test 11/06/2022 01/01/2023 Elevated glucose 11/06/2022 01/01/2023 Overview: 11/06/22- 1 hour elevated- 3 hour ordered. Sulma Bartholomew APRN.CNM Anemia 11/06/2022 01/01/2023 Overview: 11/06/22- iron studies ordered. Start oral iron. Repeat cbc 4 weeks. Sulma Bartholomew APRN.CNM Needle stick, hypodermic, accidental, initial en counter 08/14/2022 01/01/2023 Overview: On 08/12/22. See ID consult note from 08/14/22. SW Spotting in early 04/13/202212/21 Overview: 04/13/2022atient was seen in the [place] ER for spotting on April [address] Briones for follow-up and serum quantitative hCGs were done. Patient denies any bleeding since then.TKRN Engages in vaping 04/13/2022 01/01/2023 Overview: 04/13/2022 Patient states she has been vaping nicotine for the past 5 years. She recently saw her PCP Dr. Reeves and has tried using nicotine patches. I have advised her of the [place] tobacco quit line and [facility] smoking cessation program. I have discussed the risks of vaping during and advised patient to continue trying to quit.TKRN History of macrosomia in inf ant in prior , currently 04/13/2022 01/01/2023 Overview: 04/13/2022 Patient's previous child weight was 9 pounds. TKRN Patient request for diagnostic testing 2 01/01/2023 Overview: 04/13/2022atient desires aneuploidy screening. I have given her contact information for [employer] to check on insurance coverage. Patient considering horizon screening testing. Contact information for the [employer] rep given to patient to check on insurance coverage.Marlon Cortez RN HSIL (high grade squamous in traepithelial lesion) on Pap smear of cervix 01/10/2022 01/01/2023 Overview: 04/26/22- HSIL on pathology - repeat colposcopy post . Sulma Bartholomew APRN.CNM 01/10/22- Colposcopy ordered. Sulma Bartholomew APRN.CNM Urinary incontinence 04/27/2020 04/28/2020 ASCUS with positive high risk HPV cervical 09/2501/01/2023 Overview: 09/26/19 Colposcopy ordered. Kylee Gil APRN.ANISHA Vapes nicotine containing substance 09/07/2015 01/01/2023 Overview: Started at age 14 up to 2 PPD. Quit 06/2015 Last Assessment & Plan: Assessment: Patient very interested in cessation PLAN: Nicotine patches- will try to decrease nicotine level on patches. Uncomplicated asthma 09/07/2015 09/18/2019 Overview: 04/18/2012Patient has a history of asthma. She uses an albuterol inhaler when necessary. Family history of leukemia 02/04/201501/01 Routine gynecological examination 12/09/2014 09/18/2019 Overview: [facility]. Chlamydia infection 09/23/2013 09/18/2019 with adoption planned 04/22/2012 10/08/2012 Tobacco use in 04/18/2012 013 Overview: 04/18/2012Pt smokes one to 2 cigarettes a day, down from one half pack per day. Discussed risks of smoking during . Advised pt to quit. Last Assessment & Plan: 07/18/12: Pt is no longer smoking; states she quit about 2weeks ago. Rosario Lam, CLAIRE History of depression 04/18/2012 01/01/2023 Overview: 2Pt has a history of anxiety/depression diagnosed in 2010. She is currently taking Prozac prescribed by Dr. Reeves. Patient states that she did have depression. Discussed increased risks of depression during and and importance of reporting the development or worsening of symptoms should they occur. Patient states she did have a suicidal attempt in 2010 and was admitted to [facility]. She states she last had suicidal thoughts about 5 years ago. TKRN History of alcohol abuse 04/18/2012 023 Overview: 04/18/2012Patient states before she found out she was she consumed about 10 beers every other day. She denies any alcohol use since finding out she was . Discussed risks of alcohol consumption during . Patient denies any other drug use. Family history of congenital heart defect 201101/01/2023 Overview: 04/18/2012Father of the baby's uncle born with cerebral palsy and a heart defect. Surgical correction was done. His uncle at age 11. Depression 05/26/2011 09/18/2019 Telangiectasia 01/27/2010 09/18/2019 Rosacea 01/27/2010 09/18/2019 Other acne 01/27/2010 09/18/2019 documented as of this encounter (statuses as of 01/24/2023) [facility] of Past illness Narrative* Problem Noted Date Resolved Date Abnormal glucose complicating 11/09/1901/01/2023 Anemia during in third trimester 11/0801/01/2023 Diet controlled gestational diabetes mellitus (GDM) in second trimester 11/08/2022 01/01/2023 Overview: 11/08/22- 2 levels out of 3 elevated. Supplies and referrals ordered. Sulma Bartholomew APRN.KRYSTYNAM Positive GBS test 11/06/2022 01/01/2023 Elevated glucose 11/06/2022 01/01/2023 Overview: 11/06/22- 1 hour elevated- 3 hour ordered. Sulma Bartholomew APRN.CNCorie Anemia 11/06/2022 01/01/2023 Overview: 11/06/22- iron studies ordered. Start oral iron. Repeat cbc 4 weeks. Sulma Bartholomew APRN.KRYSTYNAM Needle stick, hypodermic, accidental, initial en counter 08/14/2022 01/01/2023 Overview: On 08/12/22. See ID consult note from 08/14/22. SW Spotting in early 04/13/202212/21 Overview: 04/13/2022atient was seen in the [place] ER for spotting on April [address] Briones for follow-up and serum quantitative hCGs were done. Patient denies any bleeding since then.TKRN Engages in vaping 04/13/2022 01/01/2023 Overview: 04/13/2022 Patient states she has been vaping nicotine for the past 5 years. She recently saw her PCP Dr. Reeves and has tried using nicotine patches. I have advised her of the [place] tobacco quit line and [facility] smoking cessation program. I have discussed the risks of vaping during and advised patient to continue trying to quit.TKRN History of macrosomia in inf ant in prior , currently 04/13/2022 01/01/2023 Overview: 04/13/2022 Patient's previous child weight was 9 pounds. TKRN Patient request for diagnostic testing 2 01/01/2023 Overview: 04/13/2022atient desires aneuploidy screening. I have given her contact information for [employer] to check on insurance coverage. Patient considering horizon screening testing. Contact information for the [employer] rep given to patient to check on insurance coverage.Marlon Cortez RN HSIL (high grade squamous in traepithelial lesion) on Pap smear of cervix 01/10/2022 01/01/2023 Overview: 04/26/22- HSIL on pathology - repeat colposcopy post . Sulma Bartholomew APRN.JULISSA 01/10/22- Colposcopy ordered. Sulma Bartholomew APRN.JULISSA Urinary incontinence 04/27/2020 04/28/2020 ASCUS with positive high risk HPV cervical 09/2501/01/2023 Overview: 09/26/19 Colposcopy ordered. Kylee Gil APRN.[employer]ITATIVE [employer]LY[employer] Vapes nicotine containing substance 09/07/2015 01/01/2023 Overview: Started at age 14 up to 2 PPD. Quit 06/2015 Last Assessment & Plan: Assessment: Patient very interested in cessation PLAN: Nicotine patches- will try to decrease nicotine level on patches. Uncomplicated asthma 09/07/2015 09/18/2019 Overview: 04/18/2012Patient has a history of asthma. She uses an albuterol inhaler when necessary. Family history of leukemia 02/04/201501/01 Routine gynecological examination 12/09/2014 09/18/2019 Overview: [facility]. Chlamydia infection 09/23/2013 09/18/2019 with adoption planned 04/22/2012 10/08/2012 Tobacco use in 04/18/2012 013 Overview: 04/18/2012Pt smokes one to 2 cigarettes a day, down from one half pack per day. Discussed risks of smoking during . Advised pt to quit. Last Assessment & Plan: 07/18/12: Pt is no longer smoking; states she quit about 2weeks ago. Rosario Lam NP History of depression 04/18/2012 01/01/2023 Overview: 2Pt has a history of anxiety/depression diagnosed in 2010. She is currently taking Prozac prescribed by Dr. Reeves. Patient states that she did have depression. Discussed increased risks of depression during and and importance of reporting the development or worsening of symptoms should they occur. Patient states she did have a suicidal attempt in 2010 and was admitted to [facility]. She states she last had suicidal thoughts about 5 years ago. TKRN History of alcohol abuse 04/18/2012 023 Overview: 04/18/2012Patient states before she found out she was she consumed about 10 beers every other day. She denies any alcohol use since finding out she was . Discussed risks of alcohol consumption during . Patient denies any other drug use. Family history of congenital heart defect 201101/01/2023 Overview: 04/18/2012Father of the baby's uncle born with cerebral palsy and a heart defect. Surgical correction was done. His uncle at age 11. Depression 05/26/2011 09/18/2019 Telangiectasia 01/27/2010 09/18/2019 Rosacea 01/27/2010 09/18/2019 Other acne 01/27/2010 09/18/2019 documented as of this encounter (statuses as of 01/25/2023) [facility] History of Past illness Narrative* Problem Noted Date Resolved Date Abnormal glucose complicating 11/09/1901/01/2023 Anemia during in third trimester 11/0801/01/2023 Diet controlled gestational diabetes mellitus (GDM) in second trimester 11/08/2022 01/01/2023 Overview: 11/08/22- 2 levels out of 3 elevated. Supplies and referrals ordered. Sulma Bartholomew APRN.JULISSA Positive GBS test 11/06/2022 01/01/2023 Elevated glucose 11/06/2022 01/01/2023 Overview: 11/06/22- 1 hour elevated- 3 hour ordered. Sulma Bartholomew APRN.CNM Anemia 11/06/2022 01/01/2023 Overview: 11/06/22- iron studies ordered. Start oral iron. Repeat cbc 4 weeks. Sulma Bartholomew APRN.CNM Needle stick, hypodermic, accidental, initial en counter 08/14/2022 01/01/2023 Overview: On 08/12/22. See ID consult note from 08/14/22. SW Spotting in early 04/13/202212/21 Overview: 04/13/2022atient was seen in the [place] ER for spotting on April [address] Briones for follow-up and serum quantitative hCGs were done. Patient denies any bleeding since then.TKRN Engages in vaping 04/13/2022 01/01/2023 Overview: 04/13/2022 Patient states she has been vaping nicotine for the past 5 years. She recently saw her PCP Dr. Reeves and has tried using nicotine patches. I have advised her of the [place] tobacco quit line and [facility] smoking cessation program. I have discussed the risks of vaping during and advised patient to continue trying to quit.TKRN History of macrosomia in inf ant in prior , currently 04/13/2022 01/01/2023 Overview: 04/13/2022 Patient's previous child weight was 9 pounds. TKRN Patient request for diagnostic testing 2 01/01/2023 Overview: 04/13/2022atient desires aneuploidy screening. I have given her contact information for [employer] to check on insurance coverage. Patient considering horizon screening testing. Contact information for the [employer] rep given to patient to check on insurance coverage.Marlon Cortez RN HSIL (high grade squamous in traepithelial lesion) on Pap smear of cervix 01/10/2022 01/01/2023 Overview: 04/26/22- HSIL on pathology - repeat colposcopy post . Sulma Bartholomew APRN.CNM 01/10/22- Colposcopy ordered. Sulma Bartholomew APRN.CNM Urinary incontinence 04/27/2020 04/28/2020 ASCUS with positive high risk HPV cervical 09/2501/01/2023 Overview: 09/26/19 Colposcopy ordered. Kylee Gil APRN.[employer] Vapes nicotine containing substance 09/07/2015 01/01/2023 Overview: Started at age 14 up to 2 PPD. Quit 06/2015 Last Assessment & Plan: Assessment: Patient very interested in cessation PLAN: Nicotine patches- will try to decrease nicotine level on patches. Uncomplicated asthma 09/07/2015 09/18/2019 Overview: 04/18/2012Patient has a history of asthma. She uses an albuterol inhaler when necessary. Family history of leukemia 02/04/201501/01 Routine gynecological examination 12/09/2014 09/18/2019 Overview: [facility]. Chlamydia infection 09/23/2013 09/18/2019 with adoption planned 04/22/2012 10/08/2012 Tobacco use in 04/18/2012 013 Overview: 04/18/2012Pt smokes one to 2 cigarettes a day, down from one half pack per day. Discussed risks of smoking during . Advised pt to quit. Last Assessment & Plan: 07/18/12: Pt is no longer smoking; states she quit about 2weeks ago. Rosario Lam NP History of depression 04/18/2012 01/01/2023 Overview: 2Pt has a history of anxiety/depression diagnosed in 2010. She is currently taking Prozac prescribed by Dr. Reeves. Patient states that she did have depression. Discussed increased risks of depression during and and importance of reporting the development or worsening of symptoms should they occur. Patient states she did have a suicidal attempt in 2010 and was admitted to [facility]. She states she last had suicidal thoughts about 5 years ago. TKRN History of alcohol abuse 04/18/2012 023 Overview: 04/18/2012Patient states before she found out she was she consumed about 10 beers every other day. She denies any alcohol use since finding out she was . Discussed risks of alcohol consumption during . Patient denies any other drug use. Family history of congenital heart defect 201101/01/2023 Overview: 04/18/2012Father of the baby's uncle born with cerebral palsy and a heart defect. Surgical correction was done. His uncle at age 11. Depression 05/26/2011 09/18/2019 Telangiectasia 01/27/2010 09/18/2019 Rosacea 01/27/2010 09/18/2019 Other acne 01/27/2010 09/18/2019 documented as of this encounter (statuses as of 01/25/2023) [facility] History of Past illness Narrative* Problem Noted Date Diagnosed Date Resolved Date Abnormal glucose complicating 11/08/2022 01/01/2023 Anemia during in third trimester 11/08/2022 01/01/2023 Diet controlled gestational diabetes mellitus (GDM) in second trimester 11/08/2022 01/01/2023 Overview: 11/08/22- 2 levels out of 3 elevated. Supplies and referrals ordered. Sulma Bartholomew APRN.JULISSA Positive GBS test 11/06/2022 01/01/2023 Elevated glucose 11/06/2022 01/01/2023 Overview: 11/06/22- 1 hour elevated- 3 hour ordered. Sulma Bartholomew APRN.CNCorie Anemia 11/06/2022 01/01/2023 Overview: 11/06/22- iron studies ordered. Start oral iron. Repeat cbc 4 weeks. Sulma Bartholomew APRN.CNM Needle stick, hypodermic, ac cidental, initial encounter 08/14/2022 01/01/2023 Overview: On 08/12/22. See ID consult note from 08/14/22. SW Spotting in early 04/13/2022 01/01/2023 Overview: 04/13/2022atient was seen in the [place] ER for spotting on April [address] Briones for follow-up and serum quantitative hCGs were done. Patient denies any bleeding since then.TKRN Engages in vaping 04/13/2022 01/01/2023 Overview: 04/13/2022 Patient states she has been vaping nicotine for the past 5 years. She recently saw her PCP Dr. Reeves and has tried using nicotine patches. I have advised her of the [place] tobacco quit line and [facility] smoking cessation program. I have discussed the risks of vaping during and advised patient to continue trying to quit.TKRN History of macrosomia in inf ant in prior , currently 04/13/2022 01/01/2023 Overview: 04/13/2022 Patient's previous child weight was 9 pounds. TKRN Patient request for diagnostic testing 04/13/2022 01/01/2023 Overview: 2Patient desires aneuploidy screening. I have given her contact information for [employer] to check on insurance coverage. Patient considering horizon screening testing. Contact information for the [employer] rep given to patient to check on insurance coverage.Marlon Cortez RN HSIL (high grade squamous in traepithelial lesion) on Pap smear of cervix 01/10/2022 Overview: 04/26/22- HSIL on pathology - repeat colposcopy post . Sulma Bartholomew APRN.CNM 01/10/22- Colposcopy ordered. Sulma Bartholomew APRN.CNM Urinary incontinence 04/27/2020 020 ASCUS with positive high risk HPV cervical 09/26/2019 01/01/2023 Overview: 09/26/19 Colposcopy ordered. Kylee Gil APRN.[employer] Vapes nicotine containing substance 09/07/2015 01/01/2023 Overview: Started at age 14 up to 2 PPD. Quit 06/2015 Last Assessment & Plan: Assessment: Patient very interested in cessation PLAN: Nicotine patches- will try to decrease nicotine level on patches. Uncomplicated asthma 09/07/2015 020 Overview: 04/18/2012Patient has a history of asthma. She uses an albuterol inhaler when necessary. Family history of leukemia 02/04/2015 0 01/01/2023 Routine gynecological examination 12/09/2014 09/18/2019 Overview: [facility]. Chlamydia infection 09/23/2013 09/18/19 20 with adoption planned 04/22/2012 10/08/2012 Tobacco use in 04/18/2012 Overview: 04/18/2012Pt smokes one to 2 cigarettes a day, down from one half pack per day. Discussed risks of smoking during . Advised pt to quit. Last Assessment & Plan: 07/18/12: Pt is no longer smoking; states she quit about 2weeks ago. Rosario Lam NP History of depression 04/18/20122022 Overview: 2Pt has a history of anxiety/depression diagnosed in 2010. She is currently taking Prozac prescribed by Dr. Reeves. Patient states that she did have depression. Discussed increased risks of depression during and and importance of reporting the development or worsening of symptoms should they occur. Patient states she did have a suicidal attempt in 2010 and was admitted to [facility]. She states she last had suicidal thoughts about 5 years ago. TKRN History of alcohol abuse 04/18/201206/2023 Overview: 04/18/2012Patient states before she found out she was she consumed about 10 beers every other day. She denies any alcohol use since finding out she was . Discussed risks of alcohol consumption during . Patient denies any other drug use. Family history of congenital heart defect 04/18/2012 01/01/2023 Overview: 04/18/2012Father of the baby's uncle born with cerebral palsy and a heart defect. Surgical correction was done. His uncle at age 11. Depression 05/26/2011 09/18/2019 Telangiectasia 01/27/2010 09/18/2019 Rosacea 01/27/2010 09/18/2019 Other acne 01/27/2010 09/18/2019 documented as of this encounter (statuses as of 02/15/2023) [facility]04-19-2023 History of Past illness Narrative* Problem Noted Date Diagnosed Date Resolved Date Abnormal glucose complicating 11/08/2022 01/01/2023 Anemia during in third trimester 11/08/2022 01/01/2023 Diet controlled gestational diabetes mellitus (GDM) in second trimester 11/08/2022 01/01/2023 Overview: 11/08/22- 2 levels out of 3 elevated. Supplies and referrals ordered. Sulma Bartholomew APRN.CNM Positive GBS test 11/06/2022 01/01/2023 Elevated glucose 11/06/2022 01/01/2023 Overview: 11/06/22- 1 hour elevated- 3 hour ordered. Sulma Bartholomew APRN.CNM Anemia 11/06/2022 01/01/2023 Overview: 11/06/22- iron studies ordered. Start oral iron. Repeat cbc 4 weeks. Sulma Bartholomew APRN.CNM Needle stick, hypodermic, ac cidental, initial encounter 08/14/2022 01/01/2023 Overview: On 08/12/22. See ID consult note from 08/14/22. SW Spotting in early 04/13/2022 01/01/2023 Overview: 04/13/2022atient was seen in the [place] ER for spotting on April [address] Briones for follow-up and serum quantitative hCGs were done. Patient denies any bleeding since then.TKRN Engages in vaping 04/13/2022 01/01/2023 Overview: 04/13/2022 Patient states she has been vaping nicotine for the past 5 years. She recently saw her PCP Dr. Reeves and has tried using nicotine patches. I have advised her of the [place] tobacco quit line and [facility] smoking cessation program. I have discussed the risks of vaping during and advised patient to continue trying to quit.TKRN History of macrosomia in inf ant in prior , currently 04/13/2022 01/01/2023 Overview: 04/13/2022 Patient's previous child weight was 9 pounds. TKRN Patient request for diagnostic testing 04/13/2022 01/01/2023 Overview: 04/13/2022atient desires aneuploidy screening. I have given her contact information for [employer] to check on insurance coverage. Patient considering horizon screening testing. Contact information for the [employer] rep given to patient to check on insurance coverage.Marlon Cortez RN HSIL (high grade squamous in traepithelial lesion) on Pap smear of cervix 01/10/2022 Overview: 04/26/22- HSIL on pathology - repeat colposcopy post . Sulma Bartholomew APRN.JULISSA 01/10/22- Colposcopy ordered. Sulma Bartholomew APRN.JULISSA Urinary incontinence 04/27/2020 020 ASCUS with positive high risk HPV cervical 09/26/2019 01/01/2023 Overview: 09/26/19 Colposcopy ordered. Kylee Gil APRN.[employer] Vapes nicotine containing substance 09/07/2015 01/01/2023 Overview: Started at age 14 up to 2 PPD. Quit 06/2015 Last Assessment & Plan: Assessment: Patient very interested in cessation PLAN: Nicotine patches- will try to decrease nicotine level on patches. Uncomplicated asthma 09/07/2015 020 Overview: 04/18/2012Patient has a history of asthma. She uses an albuterol inhaler when necessary. Family history of leukemia 02/04/2015 0 01/01/2023 Routine gynecological examination 12/09/2014 09/18/2019 Overview: [facility]. Chlamydia infection 09/23/2013 09/18/19 18 with adoption planned 04/22/2012 10/08/2012 Tobacco use in 04/18/2012 Overview: 04/18/2012Pt smokes one to 2 cigarettes a day, down from one half pack per day. Discussed risks of smoking during . Advised pt to quit. Last Assessment & Plan: 07/18/12: Pt is no longer smoking; states she quit about 2weeks ago. Rosario Lam NP History of depression 04/18/20122022 Overview: 2Pt has a history of anxiety/depression diagnosed in 2010. She is currently taking Prozac prescribed by Dr. Reeves. Patient states that she did have depression. Discussed increased risks of depression during and and importance of reporting the development or worsening of symptoms should they occur. Patient states she did have a suicidal attempt in 2010 and was admitted to [facility]. She states she last had suicidal thoughts about 5 years ago. TKRN History of alcohol abuse 04/18/201206/2023 Overview: 04/18/2012Patient states before she found out she was she consumed about 10 beers every other day. She denies any alcohol use since finding out she was . Discussed risks of alcohol consumption during . Patient denies any other drug use. Family history of congenital heart defect 04/18/2012 01/01/2023 Overview: 04/18/2012Father of the baby's uncle born with cerebral palsy and a heart defect. Surgical correction was done. His uncle at age 11. Depression 05/26/2011 09/18/2019 Telangiectasia 01/27/2010 09/18/2019 Rosacea 01/27/2010 09/18/2019 Other acne 01/27/2010 09/18/2019 documented as of this encounter (statuses as of 02/17/2023) [facility]04-19-2023 History of Past illness Narrative* Problem Noted Date Diagnosed Date Resolved Date Abnormal glucose complicating 11/08/2022 01/01/2023 Anemia during in third trimester 11/08/2022 01/01/2023 Diet controlled gestational diabetes mellitus (GDM) in second trimester 11/08/2022 01/01/2023 Overview: 11/08/22- 2 levels out of 3 elevated. Supplies and referrals ordered. Sulma Bartholomew APRN.CNM Positive GBS test 11/06/2022 01/01/2023 Elevated glucose 11/06/2022 01/01/2023 Overview: 11/06/22- 1 hour elevated- 3 hour ordered. Sulma Bartholomew APRN.CNM Anemia 11/06/2022 01/01/2023 Overview: 11/06/22- iron studies ordered. Start oral iron. Repeat cbc 4 weeks. Sulma Bartholomew APRN.CNM Needle stick, hypodermic, ac cidental, initial encounter 08/14/2022 01/01/2023 Overview: On 08/12/22. See ID consult note from 08/14/22. SW Spotting in early 04/13/2022 01/01/2023 Overview: 04/13/2022atient was seen in the [place] ER for spotting on April [address] Briones for follow-up and serum quantitative hCGs were done. Patient denies any bleeding since then.TKRN Engages in vaping 04/13/2022 01/01/2023 Overview: 04/13/2022 Patient states she has been vaping nicotine for the past 5 years. She recently saw her PCP Dr. Reeves and has tried using nicotine patches. I have advised her of the [place] tobacco quit line and [facility] smoking cessation program. I have discussed the risks of vaping during and advised patient to continue trying to quit.TKRN History of macrosomia in inf ant in prior , currently 04/13/2022 01/01/2023 Overview: 04/13/2022 Patient's previous child weight was 9 pounds. TKRN Patient request for diagnostic testing 04/13/2022 01/01/2023 Overview: 04/13/2022atient desires aneuploidy screening. I have given her contact information for [employer] to check on insurance coverage. Patient considering horizon screening testing. Contact information for the [employer] rep given to patient to check on insurance coverage.Marlon Cortez RN HSIL (high grade squamous in traepithelial lesion) on Pap smear of cervix 01/10/2022 Overview: 04/26/22- HSIL on pathology - repeat colposcopy post . Sulma Bartholomew APRN.CNM 01/10/22- Colposcopy ordered. Sulma Bartholomew APRN.CNM Urinary incontinence 04/27/2020 020 ASCUS with positive high risk HPV cervical 09/26/2019 01/01/2023 Overview: 09/26/19 Colposcopy ordered. Kylee Gil APRN.ANISHA Vapes nicotine containing substance 09/07/2015 01/01/2023 Overview: Started at age 14 up to 2 PPD. Quit 06/2015 Last Assessment & Plan: Assessment: Patient very interested in cessation PLAN: Nicotine patches- will try to decrease nicotine level on patches. Uncomplicated asthma 09/07/2015 020 Overview: 04/18/2012Patient has a history of asthma. She uses an albuterol inhaler when necessary. Family history of leukemia 02/04/2015 0 01/01/2023 Routine gynecological examination 12/09/2014 09/18/2019 Overview: [facility]. Chlamydia infection 09/23/2013 09/18/19 20 with adoption planned 04/22/2012 10/08/2012 Tobacco use in 04/18/2012 Overview: 04/18/2012Pt smokes one to 2 cigarettes a day, down from one half pack per day. Discussed risks of smoking during . Advised pt to quit. Last Assessment & Plan: 07/18/12: Pt is no longer smoking; states she quit about 2weeks ago. Rosario Lam NP History of depression 04/18/20122022 Overview: 2Pt has a history of anxiety/depression diagnosed in 2010. She is currently taking Prozac prescribed by Dr. Reeves. Patient states that she did have depression. Discussed increased risks of depression during and and importance of reporting the development or worsening of symptoms should they occur. Patient states she did have a suicidal attempt in 2010 and was admitted to [facility]. She states she last had suicidal thoughts about 5 years ago. TKRN History of alcohol abuse 04/18/201206/2023 Overview: 04/18/2012Patient states before she found out she was she consumed about 10 beers every other day. She denies any alcohol use since finding out she was . Discussed risks of alcohol consumption during . Patient denies any other drug use. Family history of congenital heart defect 04/18/2012 01/01/2023 Overview: 04/18/2012Father of the baby's uncle born with cerebral palsy and a heart defect. Surgical correction was done. His uncle at age 11. Depression 05/26/2011 09/18/2019 Telangiectasia 01/27/2010 09/18/2019 Rosacea 01/27/2010 09/18/2019 Other acne 01/27/2010 09/18/2019 documented as of this encounter (statuses as of 02/19/2023) [facility]04-19-2023 History of Past illness Narrative* Problem Noted Date Diagnosed Date Resolved Date Abnormal glucose complicating 11/08/2022 01/01/2023 Anemia during in third trimester 11/08/2022 01/01/2023 Diet controlled gestational diabetes mellitus (GDM) in second trimester 11/08/2022 01/01/2023 Overview: 11/08/22- 2 levels out of 3 elevated. Supplies and referrals ordered. Sulma Bartholomew APRN.CNM Positive GBS test 11/06/2022 01/01/2023 Elevated glucose 11/06/2022 01/01/2023 Overview: 11/06/22- 1 hour elevated- 3 hour ordered. Sulma Bartholomew APRN.CNM Anemia 11/06/2022 01/01/2023 Overview: 11/06/22- iron studies ordered. Start oral iron. Repeat cbc 4 weeks. Sulma Bartholomew APRN.CNM Needle stick, hypodermic, ac cidental, initial encounter 08/14/2022 01/01/2023 Overview: On 08/12/22. See ID consult note from 08/14/22. SW Spotting in early 04/13/2022 01/01/2023 Overview: 04/13/2022atient was seen in the [place] ER for spotting on April [address] Briones for follow-up and serum quantitative hCGs were done. Patient denies any bleeding since then.TKRN Engages in vaping 04/13/2022 01/01/2023 Overview: 04/13/2022 Patient states she has been vaping nicotine for the past 5 years. She recently saw her PCP Dr. Reeves and has tried using nicotine patches. I have advised her of the [place] tobacco quit line and [facility] smoking cessation program. I have discussed the risks of vaping during and advised patient to continue trying to quit.TKRN History of macrosomia in inf ant in prior , currently 04/13/2022 01/01/2023 Overview: 04/13/2022 Patient's previous child weight was 9 pounds. TKRN Patient request for diagnostic testing 04/13/2022 01/01/2023 Overview: 04/13/2022atient desires aneuploidy screening. I have given her contact information for [employer] to check on insurance coverage. Patient considering horizon screening testing. Contact information for the [employer] rep given to patient to check on insurance coverage.Marlon Cortez RN HSIL (high grade squamous in traepithelial lesion) on Pap smear of cervix 01/10/2022 Overview: 04/26/22- HSIL on pathology - repeat colposcopy post . Sulma Bartholomew APRN.CNM 01/10/22- Colposcopy ordered. Sulma Bartholomew APRN.CNM Urinary incontinence 04/27/2020 020 ASCUS with positive high risk HPV cervical 09/26/2019 01/01/2023 Overview: 09/26/19 Colposcopy ordered. Kylee Gil APRN.[employer]LY[employer] Vapes nicotine containing substance 09/07/2015 01/01/2023 Overview: Started at age 14 up to 2 PPD. Quit 06/2015 Last Assessment & Plan: Assessment: Patient very interested in cessation PLAN: Nicotine patches- will try to decrease nicotine level on patches. Uncomplicated asthma 09/07/2015 020 Overview: 04/18/2012Patient has a history of asthma. She uses an albuterol inhaler when necessary. Family history of leukemia 02/04/2015 0 01/01/2023 Routine gynecological examination 12/09/2014 09/18/2019 Overview: [facility]. Chlamydia infection 09/23/2013 09/18/19 20 with adoption planned 04/22/2012 10/08/2012 Tobacco use in 04/18/2012 Overview: 04/18/2012Pt smokes one to 2 cigarettes a day, down from one half pack per day. Discussed risks of smoking during . Advised pt to quit. Last Assessment & Plan: 07/18/12: Pt is no longer smoking; states she quit about 2weeks ago. Rosario Lam NP History of depression 04/18/20122022 Overview: 2Pt has a history of anxiety/depression diagnosed in 2010. She is currently taking Prozac prescribed by Dr. Reeves. Patient states that she did have depression. Discussed increased risks of depression during and and importance of reporting the development or worsening of symptoms should they occur. Patient states she did have a suicidal attempt in 2010 and was admitted to [facility]. She states she last had suicidal thoughts about 5 years ago. TKRN History of alcohol abuse 04/18/201206/2023 Overview: 04/18/2012Patient states before she found out she was she consumed about 10 beers every other day. She denies any alcohol use since finding out she was . Discussed risks of alcohol consumption during . Patient denies any other drug use. Family history of congenital heart defect 04/18/2012 01/01/2023 Overview: 04/18/2012Father of the baby's uncle born with cerebral palsy and a heart defect. Surgical correction was done. His uncle at age 11. Depression 05/26/2011 09/18/2019 Telangiectasia 01/27/2010 09/18/2019 Rosacea 01/27/2010 09/18/2019 Other acne 01/27/2010 09/18/2019 documented as of this encounter (statuses as of 03/03/2023) [facility] History of Past illness Narrative* Problem Noted Date Diagnosed Date Resolved Date Abnormal glucose complicating 11/08/2022 01/01/2023 Anemia during in third trimester 11/08/2022 01/01/2023 Diet controlled gestational diabetes mellitus (GDM) in second trimester 11/08/2022 01/01/2023 Overview: 11/08/22- 2 levels out of 3 elevated. Supplies and referrals ordered. Sulma Bartholomew APRN.CNM Positive GBS test 11/06/2022 01/01/2023 Elevated glucose 11/06/2022 01/01/2023 Overview: 11/06/22- 1 hour elevated- 3 hour ordered. Sulma Bartholomew APRN.JULISSA Anemia 11/06/2022 01/01/2023 Overview: 11/06/22- iron studies ordered. Start oral iron. Repeat cbc 4 weeks. Sulma Bartholomew APRN.JULISSA Needle stick, hypodermic, ac cidental, initial encounter 08/14/2022 01/01/2023 Overview: On 08/12/22. See ID consult note from 08/14/22. SW Spotting in early 04/13/2022 01/01/2023 Overview: 04/13/2022atient was seen in the [place] ER for spotting on April [address] Briones for follow-up and serum quantitative hCGs were done. Patient denies any bleeding since then.TKRN Engages in vaping 04/13/2022 01/01/2023 Overview: 04/13/2022 Patient states she has been vaping nicotine for the past 5 years. She recently saw her PCP Dr. Reeves and has tried using nicotine patches. I have advised her of the [place] tobacco quit line and [facility] smoking cessation program. I have discussed the risks of vaping during and advised patient to continue trying to quit.TKRN History of macrosomia in inf ant in prior , currently 04/13/2022 01/01/2023 Overview: 04/13/2022 Patient's previous child weight was 9 pounds. TKRN Patient request for diagnostic testing 04/13/2022 01/01/2023 Overview: 04/13/2022atient desires aneuploidy screening. I have given her contact information for [employer] to check on insurance coverage. Patient considering horizon screening testing. Contact information for the [employer] rep given to patient to check on insurance coverage.Marlon Cortez RN HSIL (high grade squamous in traepithelial lesion) on Pap smear of cervix 01/10/2022 Overview: 04/26/22- HSIL on pathology - repeat colposcopy post . Sulma Bartholomew APRN.JULISSA 01/10/22- Colposcopy ordered. Sulma Bartholomew APRN.JULISSA Urinary incontinence 04/27/2020 020 ASCUS with positive high risk HPV cervical 09/26/2019 01/01/2023 Overview: 09/26/19 Colposcopy ordered. Kylee Gil APRN.[employer] Vapes nicotine containing substance 09/07/2015 01/01/2023 Overview: Started at age 14 up to 2 PPD. Quit 06/2015 Last Assessment & Plan: Assessment: Patient very interested in cessation PLAN: Nicotine patches- will try to decrease nicotine level on patches. Uncomplicated asthma 09/07/2015 020 Overview: 04/18/2012Patient has a history of asthma. She uses an albuterol inhaler when necessary. Family history of leukemia 02/04/2015 0 01/01/2023 Routine gynecological examination 12/09/2014 09/18/2019 Overview: [facility]. Chlamydia infection 09/23/2013 09/18/19 20 with adoption planned 04/22/2012 10/08/2012 Tobacco use in 04/18/2012 Overview: 04/18/2012Pt smokes one to 2 cigarettes a day, down from one half pack per day. Discussed risks of smoking during . Advised pt to quit. Last Assessment & Plan: 07/18/12: Pt is no longer smoking; states she quit about 2weeks ago. Rosario Lam NP History of depression 04/18/20122022 Overview: 2Pt has a history of anxiety/depression diagnosed in 2010. She is currently taking Prozac prescribed by Dr. Reeves. Patient states that she did have depression. Discussed increased risks of depression during and and importance of reporting the development or worsening of symptoms should they occur. Patient states she did have a suicidal attempt in 2010 and was admitted to [facility]. She states she last had suicidal thoughts about 5 years ago. TKRN History of alcohol abuse 04/18/201206/2023 Overview: 04/18/2012Patient states before she found out she was she consumed about 10 beers every other day. She denies any alcohol use since finding out she was . Discussed risks of alcohol consumption during . Patient denies any other drug use. Family history of congenital heart defect 04/18/2012 01/01/2023 Overview: 04/18/2012Father of the baby's uncle born with cerebral palsy and a heart defect. Surgical correction was done. His uncle at age 11. Depression 05/26/2011 09/18/2019 Telangiectasia 01/27/2010 09/18/2019 Rosacea 01/27/2010 09/18/2019 Other acne 01/27/2010 09/18/2019 documented as of this encounter (statuses as of 03/07/2023) [facility] History of Past illness Narrative* Problem Noted Date Diagnosed Date Resolved Date Abnormal glucose complicating 11/08/2022 01/01/2023 Anemia during in third trimester 11/08/2022 01/01/2023 Diet controlled gestational diabetes mellitus (GDM) in second trimester 11/08/2022 01/01/2023 Overview: 11/08/22- 2 levels out of 3 elevated. Supplies and referrals ordered. Sulma Bartholomew APRN.CNM Positive GBS test 11/06/2022 01/01/2023 Elevated glucose 11/06/2022 01/01/2023 Overview: 11/06/22- 1 hour elevated- 3 hour ordered. Sulma Bartholomew APRN.CNM Anemia 11/06/2022 01/01/2023 Overview: 11/06/22- iron studies ordered. Start oral iron. Repeat cbc 4 weeks. Sulma Bartholomew APRN.CNM Needle stick, hypodermic, ac cidental, initial encounter 08/14/2022 01/01/2023 Overview: On 08/12/22. See ID consult note from 08/14/22. SW Spotting in early 04/13/2022 01/01/2023 Overview: 04/13/2022atient was seen in the [place] ER for spotting on April [address] Briones for follow-up and serum quantitative hCGs were done. Patient denies any bleeding since then.TKRN Engages in vaping 04/13/2022 01/01/2023 Overview: 04/13/2022 Patient states she has been vaping nicotine for the past 5 years. She recently saw her PCP Dr. Reeves and has tried using nicotine patches. I have advised her of the [place] tobacco quit line and [facility] smoking cessation program. I have discussed the risks of vaping during and advised patient to continue trying to quit.TKRN History of macrosomia in inf ant in prior , currently 04/13/2022 01/01/2023 Overview: 04/13/2022 Patient's previous child weight was 9 pounds. TKRN Patient request for diagnostic testing 04/13/2022 01/01/2023 Overview: 04/13/2022atient desires aneuploidy screening. I have given her contact information for [employer] to check on insurance coverage. Patient considering horizon screening testing. Contact information for the [employer] rep given to patient to check on insurance coverage.Marlon Cortez RN HSIL (high grade squamous in traepithelial lesion) on Pap smear of cervix 01/10/2022 3 Overview: 04/26/22- HSIL on pathology - repeat colposcopy post . Sulma Bartholomew APRN.CNM 01/10/22- Colposcopy ordered. Sulma Plotts, [employer].CNM Urinary incontinence 04/27/2020 020 ASCUS with positive high risk HPV cervical 09/26/2019 01/01/2023 Overview: 09/26/19 Colposcopy ordered. Kylee Gil APRN.[employer] Vapes nicotine containing substance 09/07/2015 01/01/2023 Overview: Started at age 14 up to 2 PPD. Quit 06/2015 Last Assessment & Plan: Assessment: Patient very interested in cessation PLAN: Nicotine patches- will try to decrease nicotine level on patches. Uncomplicated asthma 09/07/2015 020 Overview: 04/18/2012Patient has a history of asthma. She uses an albuterol inhaler when necessary. Family history of leukemia 02/04/2015 0 01/01/2023 Routine gynecological examination 12/09/2014 09/18/2019 Overview: [facility]. Chlamydia infection 09/23/2013 09/18/19 20 with adoption planned 04/22/2012 10/08/2012 Tobacco use in 04/18/2012 Overview: 04/18/2012Pt smokes one to 2 cigarettes a day, down from one half pack per day. Discussed risks of smoking during . Advised pt to quit. Last Assessment & Plan: 07/18/12: Pt is no longer smoking; states she quit about 2weeks ago. Rosario Lam NP History of depression 04/18/20122022 Overview: 2Pt has a history of anxiety/depression diagnosed in 2010. She is currently taking Prozac prescribed by Dr. Reeves. Patient states that she did have depression. Discussed increased risks of depression during and and importance of reporting the development or worsening of symptoms should they occur. Patient states she did have a suicidal attempt in 2010 and was admitted to [facility]. She states she last had suicidal thoughts about 5 years ago. TKRN History of alcohol abuse 04/18/201206/2023 Overview: 04/18/2012Patient states before she found out she was she consumed about 10 beers every other day. She denies any alcohol use since finding out she was . Discussed risks of alcohol consumption during . Patient denies any other drug use. Family history of congenital heart defect 04/18/2012 01/01/2023 Overview: 04/18/2012Father of the baby's uncle born with cerebral palsy and a heart defect. Surgical correction was done. His uncle at age 11. Depression 05/26/2011 09/18/2019 Telangiectasia 01/27/2010 09/18/2019 Rosacea 01/27/2010 09/18/2019 Other acne 01/27/2010 09/18/2019 documented as of this encounter (statuses as of 03/13/2023) [facility]04-19-2023 History of Past illness Narrative* Problem Noted Date Diagnosed Date Resolved Date Abnormal glucose complicating 11/08/2022 01/01/2023 Anemia during in third trimester 11/08/2022 01/01/2023 Diet controlled gestational diabetes mellitus (GDM) in second trimester 11/08/2022 01/01/2023 Overview: 11/08/22- 2 levels out of 3 elevated. Supplies and referrals ordered. Sulma Bartholomew APRN.CNM Positive GBS test 11/06/2022 01/01/2023 Elevated glucose 11/06/2022 01/01/2023 Overview: 11/06/22- 1 hour elevated- 3 hour ordered. Sulma Bartholomew APRN.CNM Anemia 11/06/2022 01/01/2023 Overview: 11/06/22- iron studies ordered. Start oral iron. Repeat cbc 4 weeks. Sulma Bartholomew APRN.CNM Needle stick, hypodermic, ac cidental, initial encounter 08/14/2022 01/01/2023 Overview: On 08/12/22. See ID consult note from 08/14/22. SW Spotting in early 04/13/2022 01/01/2023 Overview: 04/13/2022atient was seen in the [place] ER for spotting on April [address] Briones for follow-up and serum quantitative hCGs were done. Patient denies any bleeding since then.TKRN Engages in vaping 04/13/2022 01/01/2023 Overview: 04/13/2022 Patient states she has been vaping nicotine for the past 5 years. She recently saw her PCP Dr. Reeves and has tried using nicotine patches. I have advised her of the [place] tobacco quit line and [facility] smoking cessation program. I have discussed the risks of vaping during and advised patient to continue trying to quit.TKRN History of macrosomia in inf ant in prior , currently 04/13/2022 01/01/2023 Overview: 04/13/2022 Patient's previous child weight was 9 pounds. TKRN Patient request for diagnostic testing 04/13/2022 01/01/2023 Overview: 04/13/2022atient desires aneuploidy screening. I have given her contact information for [employer] to check on insurance coverage. Patient considering horizon screening testing. Contact information for the [employer] rep given to patient to check on insurance coverage.Marlon Cortez RN HSIL (high grade squamous in traepithelial lesion) on Pap smear of cervix 01/10/2022 3 Overview: 04/26/22- HSIL on pathology - repeat colposcopy post . Sulma Bartholomew APRN.CNM 01/10/22- Colposcopy ordered. Sulma Bartholomew APRN.CNM Urinary incontinence 04/27/2020 020 ASCUS with positive high risk HPV cervical 09/26/2019 01/01/2023 Overview: 09/26/19 Colposcopy ordered. Kylee Gil APRN.[employer] Vapes nicotine containing substance 09/07/2015 01/01/2023 Overview: Started at age 14 up to 2 PPD. Quit 06/2015 Last Assessment & Plan: Assessment: Patient very interested in cessation PLAN: Nicotine patches- will try to decrease nicotine level on patches. Uncomplicated asthma 09/07/2015 020 Overview: 04/18/2012Patient has a history of asthma. She uses an albuterol inhaler when necessary. Family history of leukemia 02/04/2015 0 01/01/2023 Routine gynecological examination 12/09/2014 09/18/2019 Overview: [facility]. Chlamydia infection 09/23/2013 09/18/19 20 with adoption planned 04/22/2012 10/08/2012 Tobacco use in 04/18/2012 Overview: 04/18/2012Pt smokes one to 2 cigarettes a day, down from one half pack per day. Discussed risks of smoking during . Advised pt to quit. Last Assessment & Plan: 07/18/12: Pt is no longer smoking; states she quit about 2weeks ago. Rosario Lam NP History of depression 04/18/20122022 Overview: 2Pt has a history of anxiety/depression diagnosed in 2010. She is currently taking Prozac prescribed by Dr. Reeves. Patient states that she did have depression. Discussed increased risks of depression during and and importance of reporting the development or worsening of symptoms should they occur. Patient states she did have a suicidal attempt in 2010 and was admitted to [facility]. She states she last had suicidal thoughts about 5 years ago. TKRN History of alcohol abuse 04/18/201206/2023 Overview: 04/18/2012Patient states before she found out she was she consumed about 10 beers every other day. She denies any alcohol use since finding out she was . Discussed risks of alcohol consumption during . Patient denies any other drug use. Family history of congenital heart defect 04/18/2012 01/01/2023 Overview: 04/18/2012Father of the baby's uncle born with cerebral palsy and a heart defect. Surgical correction was done. His uncle at age 11. Depression 05/26/2011 09/18/2019 Telangiectasia 01/27/2010 09/18/2019 Rosacea 01/27/2010 09/18/2019 Other acne 01/27/2010 09/18/2019 documented as of this encounter (statuses as of 03/13/2023) [facility]04-19-2023 History of Past illness Narrative* Problem Noted Date Diagnosed Date Resolved Date Abnormal glucose complicating 11/08/2022 01/01/2023 Anemia during in third trimester 11/08/2022 01/01/2023 Diet controlled gestational diabetes mellitus (GDM) in second trimester 11/08/2022 01/01/2023 Overview: 11/08/22- 2 levels out of 3 elevated. Supplies and referrals ordered. Sulma Bartholomew APRN.CNM Positive GBS test 11/06/2022 01/01/2023 Elevated glucose 11/06/2022 01/01/2023 Overview: 11/06/22- 1 hour elevated- 3 hour ordered. Sulma Bartholomew APRN.CNM Anemia 11/06/2022 01/01/2023 Overview: 11/06/22- iron studies ordered. Start oral iron. Repeat cbc 4 weeks. Sulma Bartholomew APRN.CNM Needle stick, hypodermic, ac cidental, initial encounter 08/14/2022 01/01/2023 Overview: On 08/12/22. See ID consult note from 08/14/22. SW Spotting in early 04/13/2022 01/01/2023 Overview: 04/13/2022atient was seen in the [place] ER for spotting on April [address] Briones for follow-up and serum quantitative hCGs were done. Patient denies any bleeding since then.TKRN Engages in vaping 04/13/2022 01/01/2023 Overview: 04/13/2022 Patient states she has been vaping nicotine for the past 5 years. She recently saw her PCP Dr. Reeves and has tried using nicotine patches. I have advised her of the [place] tobacco quit line and [facility] smoking cessation program. I have discussed the risks of vaping during and advised patient to continue trying to quit.TKRN History of macrosomia in inf ant in prior , currently 04/13/2022 01/01/2023 Overview: 04/13/2022 Patient's previous child weight was 9 pounds. TKRN Patient request for diagnostic testing 04/13/2022 01/01/2023 Overview: 04/13/2022atient desires aneuploidy screening. I have given her contact information for [employer] to check on insurance coverage. Patient considering horizon screening testing. Contact information for the [employer] rep given to patient to check on insurance coverage.Marlon Cortez RN HSIL (high grade squamous in traepithelial lesion) on Pap smear of cervix 01/10/2022 Overview: 04/26/22- HSIL on pathology - repeat colposcopy post . Sulma Bartholomew APRN.CNM 01/10/22- Colposcopy ordered. Sulma Bartholomew APRN.CNM Urinary incontinence 04/27/2020 020 ASCUS with positive high risk HPV cervical 09/26/2019 01/01/2023 Overview: 09/26/19 Colposcopy ordered. Kylee Gil APRN.ANISHA Vapes nicotine containing substance 09/07/2015 01/01/2023 Overview: Started at age 14 up to 2 PPD. Quit 06/2015 Last Assessment & Plan: Assessment: Patient very interested in cessation PLAN: Nicotine patches- will try to decrease nicotine level on patches. Uncomplicated asthma 09/07/2015 020 Overview: 04/18/2012Patient has a history of asthma. She uses an albuterol inhaler when necessary. Family history of leukemia 02/04/2015 0 01/01/2023 Routine gynecological examination 12/09/2014 09/18/2019 Overview: [facility]. Chlamydia infection 09/23/2013 09/18/19 18 with adoption planned 04/22/2012 10/08/2012 Tobacco use in 04/18/2012 Overview: 04/18/2012Pt smokes one to 2 cigarettes a day, down from one half pack per day. Discussed risks of smoking during . Advised pt to quit. Last Assessment & Plan: 07/18/12: Pt is no longer smoking; states she quit about 2weeks ago. Rosario Lam NP History of depression 04/18/20122022 Overview: 2Pt has a history of anxiety/depression diagnosed in 2010. She is currently taking Prozac prescribed by Dr. Reeves. Patient states that she did have depression. Discussed increased risks of depression during and and importance of reporting the development or worsening of symptoms should they occur. Patient states she did have a suicidal attempt in 2010 and was admitted to [facility]. She states she last had suicidal thoughts about 5 years ago. TKRN History of alcohol abuse 04/18/201206/2023 Overview: 04/18/2012Patient states before she found out she was she consumed about 10 beers every other day. She denies any alcohol use since finding out she was . Discussed risks of alcohol consumption during . Patient denies any other drug use. Family history of congenital heart defect 04/18/2012 01/01/2023 Overview: 04/18/2012Father of the baby's uncle born with cerebral palsy and a heart defect. Surgical correction was done. His uncle at age 11. Depression 05/26/2011 09/18/2019 Telangiectasia 01/27/2010 09/18/2019 Rosacea 01/27/2010 09/18/2019 Other acne 01/27/2010 09/18/2019 documented as of this encounter (statuses as of 03/14/2023) [facility]04-19-2023 History of Past illness Narrative* Problem Noted Date Diagnosed Date Resolved Date Abnormal glucose complicating 11/08/2022 01/01/2023 Anemia during in third trimester 11/08/2022 01/01/2023 Diet controlled gestational diabetes mellitus (GDM) in second trimester 11/08/2022 01/01/2023 Overview: 11/08/22- 2 levels out of 3 elevated. Supplies and referrals ordered. Sulma Bartholomew APRN.CNM Positive GBS test 11/06/2022 01/01/2023 Elevated glucose 11/06/2022 01/01/2023 Overview: 11/06/22- 1 hour elevated- 3 hour ordered. Sulma Bartholomew APRN.CNM Anemia 11/06/2022 01/01/2023 Overview: 11/06/22- iron studies ordered. Start oral iron. Repeat cbc 4 weeks. Sulma Bartholomew APRN.CNM Needle stick, hypodermic, ac cidental, initial encounter 08/14/2022 01/01/2023 Overview: On 08/12/22. See ID consult note from 08/14/22. SW Spotting in early 04/13/2022 01/01/2023 Overview: 04/13/2022atient was seen in the [place] ER for spotting on April [address] Briones for follow-up and serum quantitative hCGs were done. Patient denies any bleeding since then.TKRN Engages in vaping 04/13/2022 01/01/2023 Overview: 04/13/2022 Patient states she has been vaping nicotine for the past 5 years. She recently saw her PCP Dr. Reeves and has tried using nicotine patches. I have advised her of the [place] tobacco quit line and [facility] smoking cessation program. I have discussed the risks of vaping during and advised patient to continue trying to quit.TKRN History of macrosomia in inf ant in prior , currently 04/13/2022 01/01/2023 Overview: 04/13/2022 Patient's previous child weight was 9 pounds. TKRN Patient request for diagnostic testing 04/13/2022 01/01/2023 Overview: 04/13/2022atient desires aneuploidy screening. I have given her contact information for [employer] genetics to check on insurance coverage. Patient considering horizon screening testing. Contact information for the [employer] rep given to patient to check on insurance coverage.Marlon Cortez RN HSIL (high grade squamous in traepithelial lesion) on Pap smear of cervix 01/10/2022 Overview: 04/26/22- HSIL on pathology - repeat colposcopy post . Sulma Bartholomew APRN.CNM 01/10/22- Colposcopy ordered. Sulma Bartholomew APRN.CNM Urinary incontinence 04/27/2020 020 ASCUS with positive high risk HPV cervical 09/26/2019 01/01/2023 Overview: 09/26/19 Colposcopy ordered. Kylee Gil APRN.ANISHA Vapes nicotine containing substance 09/07/2015 01/01/2023 Overview: Started at age 14 up to 2 PPD. Quit 06/2015 Last Assessment & Plan: Assessment: Patient very interested in cessation PLAN: Nicotine patches- will try to decrease nicotine level on patches. Uncomplicated asthma 09/07/2015 020 Overview: 04/18/2012Patient has a history of asthma. She uses an albuterol inhaler when necessary. Family history of leukemia 02/04/2015 0 01/01/2023 Routine gynecological examination 12/09/2014 09/18/2019 Overview: [facility]. Chlamydia infection 09/23/2013 09/18/19 18 with adoption planned 04/22/2012 10/08/2012 Tobacco use in 04/18/2012 Overview: 04/18/2012Pt smokes one to 2 cigarettes a day, down from one half pack per day. Discussed risks of smoking during . Advised pt to quit. Last Assessment & Plan: 07/18/12: Pt is no longer smoking; states she quit about 2weeks ago. Rosario Lam NP History of depression 04/18/20122022 Overview: 2Pt has a history of anxiety/depression diagnosed in 2010. She is currently taking Prozac prescribed by Dr. Reeves. Patient states that she did have depression. Discussed increased risks of depression during and and importance of reporting the development or worsening of symptoms should they occur. Patient states she did have a suicidal attempt in 2010 and was admitted to [facility]. She states she last had suicidal thoughts about 5 years ago. TKRN History of alcohol abuse 04/18/201206/2023 Overview: 04/18/2012Patient states before she found out she was she consumed about 10 beers every other day. She denies any alcohol use since finding out she was . Discussed risks of alcohol consumption during . Patient denies any other drug use. Family history of congenital heart defect 04/18/2012 01/01/2023 Overview: 04/18/2012Father of the baby's uncle born with cerebral palsy and a heart defect. Surgical correction was done. His uncle at age 11. Depression 05/26/2011 09/18/2019 Telangiectasia 01/27/2010 09/18/2019 Rosacea 01/27/2010 09/18/2019 Other acne 01/27/2010 09/18/2019 documented as of this encounter (statuses as of 03/15/2023) [facility] History of Past illness Narrative* Problem Noted Date Diagnosed Date Resolved Date Abnormal glucose complicating 11/08/2022 01/01/2023 Anemia during in third trimester 11/08/2022 01/01/2023 Diet controlled gestational diabetes mellitus (GDM) in second trimester 11/08/2022 01/01/2023 Overview: 11/08/22- 2 levels out of 3 elevated. Supplies and referrals ordered. Sulma Bartholomew APRN.KRYSTYNAM Positive GBS test 11/06/2022 01/01/2023 Elevated glucose 11/06/2022 01/01/2023 Overview: 11/06/22- 1 hour elevated- 3 hour ordered. Sulma Bartholomew APRN.CNM Anemia 11/06/2022 01/01/2023 Overview: 11/06/22- iron studies ordered. Start oral iron. Repeat cbc 4 weeks. Sulma Bartholomew APRN.CNM Needle stick, hypodermic, ac cidental, initial encounter 08/14/2022 01/01/2023 Overview: On 08/12/22. See ID consult note from 08/14/22. SW Spotting in early 04/13/2022 01/01/2023 Overview: 04/13/2022atient was seen in the [place] ER for spotting on April [address] Briones for follow-up and serum quantitative hCGs were done. Patient denies any bleeding since then.TKRN Engages in vaping 04/13/2022 01/01/2023 Overview: 04/13/2022 Patient states she has been vaping nicotine for the past 5 years. She recently saw her PCP Dr. Reeves and has tried using nicotine patches. I have advised her of the [place] tobacco quit line and [facility] smoking cessation program. I have discussed the risks of vaping during and advised patient to continue trying to quit.TKRN History of macrosomia in inf ant in prior , currently 04/13/2022 01/01/2023 Overview: 04/13/2022 Patient's previous child weight was 9 pounds. TKRN Patient request for diagnostic testing 04/13/2022 01/01/2023 Overview: 04/13/2022atient desires aneuploidy screening. I have given her contact information for [employer] to check on insurance coverage. Patient considering horizon screening testing. Contact information for the [employer] rep given to patient to check on insurance coverage.Marlon Cortez RN HSIL (high grade squamous in traepithelial lesion) on Pap smear of cervix 01/10/2022 Overview: 04/26/22- HSIL on pathology - repeat colposcopy post . Sulma Bartholomew APRN.JULISSA 01/10/22- Colposcopy ordered. Sulma Bartholomew APRN.JULISSA Urinary incontinence 04/27/2020 020 ASCUS with positive high risk HPV cervical 09/26/2019 01/01/2023 Overview: 09/26/19 Colposcopy ordered. Kylee Gil APRN.[employer] Vapes nicotine containing substance 09/07/2015 01/01/2023 Overview: Started at age 14 up to 2 PPD. Quit 06/2015 Last Assessment & Plan: Assessment: Patient very interested in cessation PLAN: Nicotine patches- will try to decrease nicotine level on patches. Uncomplicated asthma 09/07/2015 020 Overview: 04/18/2012Patient has a history of asthma. She uses an albuterol inhaler when necessary. Family history of leukemia 02/04/2015 0 01/01/2023 Routine gynecological examination 12/09/2014 09/18/2019 Overview: [facility]. Chlamydia infection 09/23/2013 09/18/19 20 with adoption planned 04/22/2012 10/08/2012 Tobacco use in 04/18/2012 Overview: 04/18/2012Pt smokes one to 2 cigarettes a day, down from one half pack per day. Discussed risks of smoking during . Advised pt to quit. Last Assessment & Plan: 07/18/12: Pt is no longer smoking; states she quit about 2weeks ago. Rosario Lam NP History of depression 04/18/20122022 Overview: 2Pt has a history of anxiety/depression diagnosed in 2010. She is currently taking Prozac prescribed by Dr. Reeves. Patient states that she did have depression. Discussed increased risks of depression during and and importance of reporting the development or worsening of symptoms should they occur. Patient states she did have a suicidal attempt in 2010 and was admitted to [facility]. She states she last had suicidal thoughts about 5 years ago. TKRN History of alcohol abuse 04/18/201206/2023 Overview: 04/18/2012Patient states before she found out she was she consumed about 10 beers every other day. She denies any alcohol use since finding out she was . Discussed risks of alcohol consumption during . Patient denies any other drug use. Family history of congenital heart defect 04/18/2012 01/01/2023 Overview: 04/18/2012Father of the baby's uncle born with cerebral palsy and a heart defect. Surgical correction was done. His uncle at age 11. Depression 05/26/2011 09/18/2019 Telangiectasia 01/27/2010 09/18/2019 Rosacea 01/27/2010 09/18/2019 Other acne 01/27/2010 09/18/2019 documented as of this encounter (statuses as of 03/15/2023) [facility] History of Past illness Narrative* Problem Noted Date Diagnosed Date Resolved Date Abnormal glucose complicating 11/08/2022 01/01/2023 Anemia during in third trimester 11/08/2022 01/01/2023 Diet controlled gestational diabetes mellitus (GDM) in second trimester 11/08/2022 01/01/2023 Overview: 11/08/22- 2 levels out of 3 elevated. Supplies and referrals ordered. Sulma Bartholomew APRN.JULISSA Positive GBS test 11/06/2022 01/01/2023 Elevated glucose 11/06/2022 01/01/2023 Overview: 11/06/22- 1 hour elevated- 3 hour ordered. Sulma Bartholomew APRN.CNM Anemia 11/06/2022 01/01/2023 Overview: 11/06/22- iron studies ordered. Start oral iron. Repeat cbc 4 weeks. Sulma Bartholomew APRN.CNM Needle stick, hypodermic, ac cidental, initial encounter 08/14/2022 01/01/2023 Overview: On 08/12/22. See ID consult note from 08/14/22. SW Spotting in early 04/13/2022 01/01/2023 Overview: 04/13/2022atient was seen in the [place] ER for spotting on April [address] Briones for follow-up and serum quantitative hCGs were done. Patient denies any bleeding since then.TKRN Engages in vaping 04/13/2022 01/01/2023 Overview: 04/13/2022 Patient states she has been vaping nicotine for the past 5 years. She recently saw her PCP Dr. Reeves and has tried using nicotine patches. I have advised her of the [place] tobacco quit line and [facility] smoking cessation program. I have discussed the risks of vaping during and advised patient to continue trying to quit.TKRN History of macrosomia in inf ant in prior , currently 04/13/2022 01/01/2023 Overview: 04/13/2022 Patient's previous child weight was 9 pounds. TKRN Patient request for diagnostic testing 04/13/2022 01/01/2023 Overview: 04/13/2022atient desires aneuploidy screening. I have given her contact information for [employer] to check on insurance coverage. Patient considering horizon screening testing. Contact information for the [employer] rep given to patient to check on insurance coverage.Marlon Cortez RN HSIL (high grade squamous in traepithelial lesion) on Pap smear of cervix 01/10/2022 Overview: 04/26/22- HSIL on pathology - repeat colposcopy post . Sulma Bartholomew APRN.CNM 01/10/22- Colposcopy ordered. Sulma Bartholomew APRN.CNM Urinary incontinence 04/27/2020 020 ASCUS with positive high risk HPV cervical 09/26/2019 01/01/2023 Overview: 09/26/19 Colposcopy ordered. Kylee Gil APRN.[employer] Vapes nicotine containing substance 09/07/2015 01/01/2023 Overview: Started at age 14 up to 2 PPD. Quit 06/2015 Last Assessment & Plan: Assessment: Patient very interested in cessation PLAN: Nicotine patches- will try to decrease nicotine level on patches. Uncomplicated asthma 09/07/2015 020 Overview: 04/18/2012Patient has a history of asthma. She uses an albuterol inhaler when necessary. Family history of leukemia 02/04/2015 0 01/01/2023 Routine gynecological examination 12/09/2014 09/18/2019 Overview: [facility]. Chlamydia infection 09/23/2013 09/18/19 20 with adoption planned 04/22/2012 10/08/2012 Tobacco use in 04/18/2012 Overview: 04/18/2012Pt smokes one to 2 cigarettes a day, down from one half pack per day. Discussed risks of smoking during . Advised pt to quit. Last Assessment & Plan: 07/18/12: Pt is no longer smoking; states she quit about 2weeks ago. Rosario Lam NP History of depression 04/18/20122022 Overview: 2Pt has a history of anxiety/depression diagnosed in 2010. She is currently taking Prozac prescribed by Dr. Reeves. Patient states that she did have depression. Discussed increased risks of depression during and and importance of reporting the development or worsening of symptoms should they occur. Patient states she did have a suicidal attempt in 2010 and was admitted to [facility]. She states she last had suicidal thoughts about 5 years ago. TKRN History of alcohol abuse 04/18/201206/2023 Overview: 04/18/2012Patient states before she found out she was she consumed about 10 beers every other day. She denies any alcohol use since finding out she was . Discussed risks of alcohol consumption during . Patient denies any other drug use. Family history of congenital heart defect 04/18/2012 01/01/2023 Overview: 04/18/2012Father of the baby's uncle born with cerebral palsy and a heart defect. Surgical correction was done. His uncle at age 11. Depression 05/26/2011 09/18/2019 Telangiectasia 01/27/2010 09/18/2019 Rosacea 01/27/2010 09/18/2019 Other acne 01/27/2010 09/18/2019 documented as of this encounter (statuses as of 03/21/2023) [facility]04-19-2023 History of Past illness Narrative* Problem Noted Date Diagnosed Date Resolved Date Abnormal glucose complicating 11/08/2022 01/01/2023 Anemia during in third trimester 11/08/2022 01/01/2023 Diet controlled gestational diabetes mellitus (GDM) in second trimester 11/08/2022 01/01/2023 Overview: 11/08/22- 2 levels out of 3 elevated. Supplies and referrals ordered. Sulma Bartholomew APRN.JULISSA Positive GBS test 11/06/2022 01/01/2023 Elevated glucose 11/06/2022 01/01/2023 Overview: 11/06/22- 1 hour elevated- 3 hour ordered. Sulma Bartholomew APRN.JULISSA Anemia 11/06/2022 01/01/2023 Overview: 11/06/22- iron studies ordered. Start oral iron. Repeat cbc 4 weeks. Sulma Bartholomew APRN.KRYSTYNAM Needle stick, hypodermic, ac cidental, initial encounter 08/14/2022 01/01/2023 Overview: On 08/12/22. See ID consult note from 08/14/22. SW Spotting in early 04/13/2022 01/01/2023 Overview: 04/13/2022atient was seen in the [place] ER for spotting on April [address] Briones for follow-up and serum quantitative hCGs were done. Patient denies any bleeding since then.TKRN Engages in vaping 04/13/2022 01/01/2023 Overview: 04/13/2022 Patient states she has been vaping nicotine for the past 5 years. She recently saw her PCP Dr. Reeves and has tried using nicotine patches. I have advised her of the [place] tobacco quit line and [facility] smoking cessation program. I have discussed the risks of vaping during and advised patient to continue trying to quit.TKRN History of macrosomia in inf ant in prior , currently 04/13/2022 01/01/2023 Overview: 04/13/2022 Patient's previous child weight was 9 pounds. TKRN Patient request for diagnostic testing 04/13/2022 01/01/2023 Overview: 2Patient desires aneuploidy screening. I have given her contact information for [employer] to check on insurance coverage. Patient considering horizon screening testing. Contact information for the [employer] rep given to patient to check on insurance coverage.Marlon Cortez RN HSIL (high grade squamous in traepithelial lesion) on Pap smear of cervix 01/10/2022 Overview: 04/26/22- HSIL on pathology - repeat colposcopy post . Sulma Bartholomew APRN.CNM 01/10/22- Colposcopy ordered. Sulma Bartholomew APRN.CNM Urinary incontinence 04/27/2020 020 ASCUS with positive high risk HPV cervical 09/26/2019 01/01/2023 Overview: 09/26/19 Colposcopy ordered. Kylee Gil APRN.[employer] Vapes nicotine containing substance 09/07/2015 01/01/2023 Overview: Started at age 14 up to 2 PPD. Quit 06/2015 Last Assessment & Plan: Assessment: Patient very interested in cessation PLAN: Nicotine patches- will try to decrease nicotine level on patches. Uncomplicated asthma 09/07/2015 020 Overview: 04/18/2012Patient has a history of asthma. She uses an albuterol inhaler when necessary. Family history of leukemia 02/04/2015 0 01/01/2023 Routine gynecological examination 12/09/2014 09/18/2019 Overview: [facility]. Chlamydia infection 09/23/2013 02/27/20 20 with adoption planned 04/22/2012 10/08/2012 Tobacco use in 04/18/2012 Overview: 04/18/2012Pt smokes one to 2 cigarettes a day, down from one half pack per day. Discussed risks of smoking during . Advised pt to quit. Last Assessment & Plan: 07/18/12: Pt is no longer smoking; states she quit about 2weeks ago. Rosario Lam NP History of depression 04/18/20122022 Overview: 2Pt has a history of anxiety/depression diagnosed in 2010. She is currently taking Prozac prescribed by Dr. Reeves. Patient states that she did have depression. Discussed increased risks of depression during and and importance of reporting the development or worsening of symptoms should they occur. Patient states she did have a suicidal attempt in 2010 and was admitted to [facility]. She states she last had suicidal thoughts about 5 years ago. TKRN History of alcohol abuse 04/18/201206/2023 Overview: 04/18/2012Patient states before she found out she was she consumed about 10 beers every other day. She denies any alcohol use since finding out she was . Discussed risks of alcohol consumption during . Patient denies any other drug use. Family history of congenital heart defect 04/18/2012 01/01/2023 Overview: 04/18/2012Father of the baby's uncle born with cerebral palsy and a heart defect. Surgical correction was done. His uncle at age 11. Depression 05/26/2011 09/18/2019 Telangiectasia 01/27/2010 09/18/2019 Rosacea 01/27/2010 09/18/2019 Other acne 01/27/2010 09/18/2019 documented as of this encounter (statuses as of 03/21/2023) [facility]04-19-2023 History of Past illness Narrative* Problem Noted Date Diagnosed Date Resolved Date Abnormal glucose complicating 11/08/2022 01/01/2023 Anemia during in third trimester 11/08/2022 01/01/2023 Diet controlled gestational diabetes mellitus (GDM) in second trimester 11/08/2022 01/01/2023 Overview: 11/08/22- 2 levels out of 3 elevated. Supplies and referrals ordered. Sulma Bartholomew APRN.JULISSA Positive GBS test 11/06/2022 01/01/2023 Elevated glucose 11/06/2022 01/01/2023 Overview: 11/06/22- 1 hour elevated- 3 hour ordered. Sulma Bartholomew APRN.CNM Anemia 11/06/2022 01/01/2023 Overview: 11/06/22- iron studies ordered. Start oral iron. Repeat cbc 4 weeks. Sulma Bartholomew APRN.CNM Needle stick, hypodermic, ac cidental, initial encounter 08/14/2022 01/01/2023 Overview: On 08/12/22. See ID consult note from 08/14/22. SW Spotting in early 04/13/2022 01/01/2023 Overview: 04/13/2022atient was seen in the [place] ER for spotting on April [address] Briones for follow-up and serum quantitative hCGs were done. Patient denies any bleeding since then.TKRN Engages in vaping 04/13/2022 01/01/2023 Overview: 04/13/2022 Patient states she has been vaping nicotine for the past 5 years. She recently saw her PCP Dr. Reeves and has tried using nicotine patches. I have advised her of the [place] tobacco quit line and [facility] smoking cessation program. I have discussed the risks of vaping during and advised patient to continue trying to quit.TKRN History of macrosomia in inf ant in prior , currently 04/13/2022 01/01/2023 Overview: 04/13/2022 Patient's previous child weight was 9 pounds. TKRN Patient request for diagnostic testing 04/13/2022 01/01/2023 Overview: 04/13/2022atient desires aneuploidy screening. I have given her contact information for [employer] to check on insurance coverage. Patient considering horizon screening testing. Contact information for the [employer] rep given to patient to check on insurance coverage.Marlon Cortez RN HSIL (high grade squamous in traepithelial lesion) on Pap smear of cervix 01/10/2022 3 Overview: 04/26/22- HSIL on pathology - repeat colposcopy post . Sulma Bartholomew APRN.JULISSA 01/10/22- Colposcopy ordered. Sulma Bartholomew APRN.JULISSA Urinary incontinence 04/27/2020 020 ASCUS with positive high risk HPV cervical 09/26/2019 01/01/2023 Overview: 09/26/19 Colposcopy ordered. Kylee Gil APRN.[employer] Vapes nicotine containing substance 09/07/2015 01/01/2023 Overview: Started at age 14 up to 2 PPD. Quit 06/2015 Last Assessment & Plan: Assessment: Patient very interested in cessation PLAN: Nicotine patches- will try to decrease nicotine level on patches. Uncomplicated asthma 09/07/2015 020 Overview: 04/18/2012Patient has a history of asthma. She uses an albuterol inhaler when necessary. Family history of leukemia 02/04/2015 0 01/01/2023 Routine gynecological examination 12/09/2014 09/18/2019 Overview: [facility]. Chlamydia infection 09/23/2013 09/18/19 18 with adoption planned 04/22/2012 10/08/2012 Tobacco use in 04/18/2012 Overview: 04/18/2012Pt smokes one to 2 cigarettes a day, down from one half pack per day. Discussed risks of smoking during . Advised pt to quit. Last Assessment & Plan: 07/18/12: Pt is no longer smoking; states she quit about 2weeks ago. Rosario Lam NP History of depression 04/18/20122022 Overview: 2Pt has a history of anxiety/depression diagnosed in 2010. She is currently taking Prozac prescribed by Dr. Reeves. Patient states that she did have depression. Discussed increased risks of depression during and and importance of reporting the development or worsening of symptoms should they occur. Patient states she did have a suicidal attempt in 2010 and was admitted to [facility]. She states she last had suicidal thoughts about 5 years ago. TKRN History of alcohol abuse 04/18/201206/2023 Overview: 04/18/2012Patient states before she found out she was she consumed about 10 beers every other day. She denies any alcohol use since finding out she was . Discussed risks of alcohol consumption during . Patient denies any other drug use. Family history of congenital heart defect 04/18/2012 01/01/2023 Overview: 04/18/2012Father of the baby's uncle born with cerebral palsy and a heart defect. Surgical correction was done. His uncle at age 11. Depression 05/26/2011 09/18/2019 Telangiectasia 01/27/2010 09/18/2019 Rosacea 01/27/2010 09/18/2019 Other acne 01/27/2010 09/18/2019 documented as of this encounter (statuses as of 04/05/2023) [facility]04-19-2023 History of Past illness Narrative* Problem Noted Date Diagnosed Date Resolved Date Abnormal glucose complicating 11/08/2022 01/01/2023 Anemia during in third trimester 11/08/2022 01/01/2023 Diet controlled gestational diabetes mellitus (GDM) in second trimester 11/08/2022 01/01/2023 Overview: 11/08/22- 2 levels out of 3 elevated. Supplies and referrals ordered. Sulma Bartholomew APRN.CNM Positive GBS test 11/06/2022 01/01/2023 Elevated glucose 11/06/2022 01/01/2023 Overview: 11/06/22- 1 hour elevated- 3 hour ordered. Sulma Bartholomew APRN.CNM Anemia 11/06/2022 01/01/2023 Overview: 11/06/22- iron studies ordered. Start oral iron. Repeat cbc 4 weeks. Sulma Bartholomew APRN.CNM Needle stick, hypodermic, ac cidental, initial encounter 08/14/2022 01/01/2023 Overview: On 08/12/22. See ID consult note from 08/14/22. SW Spotting in early 04/13/2022 01/01/2023 Overview: 04/13/2022atimaritza was seen in the [place] ER for spotting on April [address] Briones for follow-up and serum quantitative hCGs were done. Patient denies any bleeding since then.TKRN Engages in vaping 04/13/2022 01/01/2023 Overview: 04/13/2022 Patient states she has been vaping nicotine for the past 5 years. She recently saw her PCP Dr. Reeves and has tried using nicotine patches. I have advised her of the [place] tobacco quit line and [facility] smoking cessation program. I have discussed the risks of vaping during and advised patient to continue trying to quit.TKRN History of macrosomia in inf ant in prior , currently 04/13/2022 01/01/2023 Overview: 04/13/2022 Patient's previous child weight was 9 pounds. TKRN Patient request for diagnostic testing 04/13/2022 01/01/2023 Overview: 09/22/2022Patient desires aneuploidy screening. I have given her contact information for [employer] to check on insurance coverage. Patient considering horizon screening testing. Contact information for the [employer] rep given to patient to check on insurance coverage.Marlon Cortez RN HSIL (high grade squamous in traepithelial lesion) on Pap smear of cervix 01/10/2022 3 Overview: 04/26/22- HSIL on pathology - repeat colposcopy post . Sulma Bartholomew APRN.JULISSA 01/10/22- Colposcopy ordered. Sulma Bartholomew APRN.CNM Urinary incontinence 04/27/2020 020 ASCUS with positive high risk HPV cervical 09/26/2019 01/01/2023 Overview: 09/26/19 Colposcopy ordered. Kylee Gil APRN.ANISHA Vapes nicotine containing substance 09/07/2015 01/01/2023 Overview: Started at age 14 up to 2 PPD. Quit 06/2015 Last Assessment & Plan: Assessment: Patient very interested in cessation PLAN: Nicotine patches- will try to decrease nicotine level on patches. Uncomplicated asthma 09/07/2015 020 Overview: 04/18/2012Patient has a history of asthma. She uses an albuterol inhaler when necessary. Family history of leukemia 02/04/2015 0 01/01/2023 Routine gynecological examination 12/09/2014 09/18/2019 Overview: [facility]. Chlamydia infection 09/23/2013 09/18/19 20 with adoption planned 04/22/2012 10/08/2012 Tobacco use in 04/18/2012 Overview: 04/18/2012Pt smokes one to 2 cigarettes a day, down from one half pack per day. Discussed risks of smoking during . Advised pt to quit. Last Assessment & Plan: 07/18/12: Pt is no longer smoking; states she quit about 2weeks ago. Rosario Lam NP History of depression 04/18/20122022 Overview: 2Pt has a history of anxiety/depression diagnosed in 2010. She is currently taking Prozac prescribed by Dr. Reeves. Patient states that she did have depression. Discussed increased risks of depression during and and importance of reporting the development or worsening of symptoms should they occur. Patient states she did have a suicidal attempt in 2010 and was admitted to [facility]. She states she last had suicidal thoughts about 5 years ago. TKRN History of alcohol abuse 04/18/201206/2023 Overview: 04/18/2012Patient states before she found out she was she consumed about 10 beers every other day. She denies any alcohol use since finding out she was . Discussed risks of alcohol consumption during . Patient denies any other drug use. Family history of congenital heart defect 04/18/2012 01/01/2023 Overview: 04/18/2012Father of the baby's uncle born with cerebral palsy and a heart defect. Surgical correction was done. His uncle at age 11. Depression 05/26/2011 09/18/2019 Telangiectasia 01/27/2010 09/18/2019 Rosacea 01/27/2010 09/18/2019 Other acne 01/27/2010 09/18/2019 documented as of this encounter (statuses as of 05/07/2023) [facility] History of Past illness Narrative* Problem Noted Date Diagnosed Date Resolved Date Abnormal glucose complicating 11/08/2022 01/01/2023 Anemia during in third trimester 11/08/2022 01/01/2023 Diet controlled gestational diabetes mellitus (GDM) in second trimester 11/08/2022 01/01/2023 Overview: 11/08/22- 2 levels out of 3 elevated. Supplies and referrals ordered. Sulma Bartholomew APRN.CNM Positive GBS test 11/06/2022 01/01/2023 Elevated glucose 11/06/2022 01/01/2023 Overview: 11/06/22- 1 hour elevated- 3 hour ordered. Sulma Bartholomew APRN.CNM Anemia 11/06/2022 01/01/2023 Overview: 11/06/22- iron studies ordered. Start oral iron. Repeat cbc 4 weeks. Sulma Bartholomew APRN.CNM Needle stick, hypodermic, ac cidental, initial encounter 08/14/2022 01/01/2023 Overview: On 08/12/22. See ID consult note from 08/14/22. SW Spotting in early 04/13/2022 01/01/2023 Overview: 04/13/2022atient was seen in the [place] ER for spotting on April [address] Briones for follow-up and serum quantitative hCGs were done. Patient denies any bleeding since then.TKRN Engages in vaping 04/13/2022 01/01/2023 Overview: 04/13/2022 Patient states she has been vaping nicotine for the past 5 years. She recently saw her PCP Dr. Reeves and has tried using nicotine patches. I have advised her of the [place] tobacco quit line and [facility] smoking cessation program. I have discussed the risks of vaping during and advised patient to continue trying to quit.TKRN History of macrosomia in inf ant in prior , currently 04/13/2022 01/01/2023 Overview: 04/13/2022 Patient's previous child weight was 9 pounds. TKRN Patient request for diagnostic testing 04/13/2022 01/01/2023 Overview: 04/13/2022atient desires aneuploidy screening. I have given her contact information for [employer] to check on insurance coverage. Patient considering horizon screening testing. Contact information for the [employer] rep given to patient to check on insurance coverage.Marlon Cortez RN HSIL (high grade squamous in traepithelial lesion) on Pap smear of cervix 01/10/2022 Overview: 04/26/22- HSIL on pathology - repeat colposcopy post . Sulma Bartholomew APRN.CNM 01/10/22- Colposcopy ordered. Sulma Bartholomew APRN.CNM Urinary incontinence 04/27/2020 020 ASCUS with positive high risk HPV cervical 09/26/2019 01/01/2023 Overview: 09/26/19 Colposcopy ordered. Kylee Gil APRN.[employer] Vapes nicotine containing substance 09/07/2015 01/01/2023 Overview: Started at age 14 up to 2 PPD. Quit 06/2015 Last Assessment & Plan: Assessment: Patient very interested in cessation PLAN: Nicotine patches- will try to decrease nicotine level on patches. Uncomplicated asthma 09/07/2015 020 Overview: 04/18/2012Patient has a history of asthma. She uses an albuterol inhaler when necessary. Family history of leukemia 02/04/2015 0 01/01/2023 Routine gynecological examination 12/09/2014 09/18/2019 Overview: [facility]. Chlamydia infection 09/23/2013 09/18/19 20 with adoption planned 04/22/2012 10/08/2012 Tobacco use in 04/18/2012 Overview: 04/18/2012Pt smokes one to 2 cigarettes a day, down from one half pack per day. Discussed risks of smoking during . Advised pt to quit. Last Assessment & Plan: 07/18/12: Pt is no longer smoking; states she quit about 2weeks ago. Rosario Lam NP History of depression 04/18/20122022 Overview: 2Pt has a history of anxiety/depression diagnosed in 2010. She is currently taking Prozac prescribed by Dr. Reeves. Patient states that she did have depression. Discussed increased risks of depression during and and importance of reporting the development or worsening of symptoms should they occur. Patient states she did have a suicidal attempt in 2010 and was admitted to [facility]. She states she last had suicidal thoughts about 5 years ago. TKRN History of alcohol abuse 04/18/201206/2023 Overview: 04/18/2012Patient states before she found out she was she consumed about 10 beers every other day. She denies any alcohol use since finding out she was . Discussed risks of alcohol consumption during . Patient denies any other drug use. Family history of congenital heart defect 04/18/2012 01/01/2023 Overview: 04/18/2012Father of the baby's uncle born with cerebral palsy and a heart defect. Surgical correction was done. His uncle at age 11. Depression 05/26/2011 09/18/2019 Telangiectasia 01/27/2010 09/18/2019 Rosacea 01/27/2010 09/18/2019 Other acne 01/27/2010 09/18/2019 documented as of this encounter (statuses as of 05/09/2023) [facility] History of Past illness Narrative* Problem Noted Date Diagnosed Date Resolved Date Abnormal glucose complicating 11/08/2022 01/01/2023 Anemia during in third trimester 11/08/2022 01/01/2023 Diet controlled gestational diabetes mellitus (GDM) in second trimester 11/08/2022 01/01/2023 Overview: 11/08/22- 2 levels out of 3 elevated. Supplies and referrals ordered. Sulma Bartholomew APRN.CNM Positive GBS test 11/06/2022 01/01/2023 Elevated glucose 11/06/2022 01/01/2023 Overview: 11/06/22- 1 hour elevated- 3 hour ordered. Sulma Bartholomew APRN.CNM Anemia 11/06/2022 01/01/2023 Overview: 11/06/22- iron studies ordered. Start oral iron. Repeat cbc 4 weeks. Sulma Bartholomew APRN.CNM Needle stick, hypodermic, ac cidental, initial encounter 08/14/2022 01/01/2023 Overview: On 08/12/22. See ID consult note from 08/14/22. SW Spotting in early 04/13/2022 01/01/2023 Overview: 04/13/2022atient was seen in the [place] ER for spotting on April [address] Briones for follow-up and serum quantitative hCGs were done. Patient denies any bleeding since then.TKRN Engages in vaping 04/13/2022 01/01/2023 Overview: 04/13/2022 Patient states she has been vaping nicotine for the past 5 years. She recently saw her PCP Dr. Reeves and has tried using nicotine patches. I have advised her of the [place] tobacco quit line and [facility] smoking cessation program. I have discussed the risks of vaping during and advised patient to continue trying to quit.TKRN History of macrosomia in inf ant in prior , currently 04/13/2022 01/01/2023 Overview: 04/13/2022 Patient's previous child weight was 9 pounds. TKRN Patient request for diagnostic testing 04/13/2022 01/01/2023 Overview: 04/13/2022atient desires aneuploidy screening. I have given her contact information for [employer] to check on insurance coverage. Patient considering horizon screening testing. Contact information for the [employer] rep given to patient to check on insurance coverage.Marlon Cortez RN HSIL (high grade squamous in traepithelial lesion) on Pap smear of cervix 01/10/2022 3 Overview: 10/5/22- HSIL on pathology - repeat colposcopy post . Sulma Bartholomew APRN.JULISSA 01/10/22- Colposcopy ordered. Sulma Bartholomew APRN.JULISSA Urinary incontinence 04/27/2020 020 ASCUS with positive high risk HPV cervical 09/26/2019 01/01/2023 Overview: 09/26/19 Colposcopy ordered. Kylee Gil APRN.[employer] Vapes nicotine containing substance 09/07/2015 01/01/2023 Overview: Started at age 14 up to 2 PPD. Quit 06/2015 Last Assessment & Plan: Assessment: Patient very interested in cessation PLAN: Nicotine patches- will try to decrease nicotine level on patches. Uncomplicated asthma 09/07/2015 020 Overview: 04/18/2012Patient has a history of asthma. She uses an albuterol inhaler when necessary. Family history of leukemia 02/04/2015 0 01/01/2023 Routine gynecological examination 12/09/2014 09/18/2019 Overview: [facility]. Chlamydia infection 09/23/2013 09/18/19 20 with adoption planned 04/22/2012 10/08/2012 Tobacco use in 04/18/2012 Overview: 04/18/2012Pt smokes one to 2 cigarettes a day, down from one half pack per day. Discussed risks of smoking during . Advised pt to quit. Last Assessment & Plan: 07/18/12: Pt is no longer smoking; states she quit about 2weeks ago. Rosario Lam NP History of depression 04/18/20122022 Overview: 2Pt has a history of anxiety/depression diagnosed in 2010. She is currently taking Prozac prescribed by Dr. Reeves. Patient states that she did have depression. Discussed increased risks of depression during and and importance of reporting the development or worsening of symptoms should they occur. Patient states she did have a suicidal attempt in 2010 and was admitted to [facility]. She states she last had suicidal thoughts about 5 years ago. TKRN History of alcohol abuse 04/18/201206/2023 Overview: 04/18/2012Patient states before she found out she was she consumed about 10 beers every other day. She denies any alcohol use since finding out she was . Discussed risks of alcohol consumption during . Patient denies any other drug use. Family history of congenital heart defect 04/18/2012 01/01/2023 Overview: 04/18/2012Father of the baby's uncle born with cerebral palsy and a heart defect. Surgical correction was done. His uncle at age 11. Depression 05/26/2011 09/18/2019 Telangiectasia 01/27/2010 09/18/2019 Rosacea 01/27/2010 09/18/2019 Other acne 01/27/2010 09/18/2019 documented as of this encounter (statuses as of 05/14/2023) [facility] History of Past illness Narrative* Problem Noted Date Diagnosed Date Resolved Date Abnormal glucose complicating 11/08/2022 01/01/2023 Anemia during in third trimester 11/08/2022 01/01/2023 Diet controlled gestational diabetes mellitus (GDM) in second trimester 11/08/2022 01/01/2023 Overview: 11/08/22- 2 levels out of 3 elevated. Supplies and referrals ordered. Sulma Bartholomew APRN.KRYSTYNAM Positive GBS test 11/06/2022 01/01/2023 Elevated glucose 11/06/2022 01/01/2023 Overview: 11/06/22- 1 hour elevated- 3 hour ordered. Sulma Bartholomew APRN.KRYSTYNAM Anemia 11/06/2022 01/01/2023 Overview: 11/06/22- iron studies ordered. Start oral iron. Repeat cbc 4 weeks. Sulma Bartholomew APRN.JULISSA Needle stick, hypodermic, ac cidental, initial encounter 08/14/2022 01/01/2023 Overview: On 08/12/22. See ID consult note from 08/14/22. SW Spotting in early 04/13/2022 01/01/2023 Overview: 04/13/2022atient was seen in the [place] ER for spotting on April [address] Briones for follow-up and serum quantitative hCGs were done. Patient denies any bleeding since then.TKRN Engages in vaping 04/13/2022 01/01/2023 Overview: 04/13/2022 Patient states she has been vaping nicotine for the past 5 years. She recently saw her PCP Dr. Reeves and has tried using nicotine patches. I have advised her of the [place] tobacco quit line and [facility] smoking cessation program. I have discussed the risks of vaping during and advised patient to continue trying to quit.TKRN History of macrosomia in inf ant in prior , currently 04/13/2022 01/01/2023 Overview: 04/13/2022 Patient's previous child weight was 9 pounds. TKRN Patient request for diagnostic testing 04/13/2022 01/01/2023 Overview: 04/13/2022atient desires aneuploidy screening. I have given her contact information for [employer] to check on insurance coverage. Patient considering horizon screening testing. Contact information for the [employer] rep given to patient to check on insurance coverage.Marlon Cortez RN HSIL (high grade squamous in traepithelial lesion) on Pap smear of cervix 01/10/2022 3 Overview: 04/26/22- HSIL on pathology - repeat colposcopy post . Sulma Bartholomew APRN.CNM 01/10/22- Colposcopy ordered. Sulma Bartholomew APRN.CNM Urinary incontinence 04/27/2020 020 ASCUS with positive high risk HPV cervical 09/26/2019 01/01/2023 Overview: 09/26/19 Colposcopy ordered. Kylee Gil APRN.[employer] Vapes nicotine containing substance 09/07/2015 01/01/2023 Overview: Started at age 14 up to 2 PPD. Quit 06/2015 Last Assessment & Plan: Assessment: Patient very interested in cessation PLAN: Nicotine patches- will try to decrease nicotine level on patches. Uncomplicated asthma 09/07/2015 020 Overview: 04/18/2012Patient has a history of asthma. She uses an albuterol inhaler when necessary. Family history of leukemia 02/04/2015 0 01/01/2023 Routine gynecological examination 12/09/2014 09/18/2019 Overview: [facility]. Chlamydia infection 09/23/2013 09/18/19 20 with adoption planned 04/22/2012 10/08/2012 Tobacco use in 04/18/2012 Overview: 04/18/2012Pt smokes one to 2 cigarettes a day, down from one half pack per day. Discussed risks of smoking during . Advised pt to quit. Last Assessment & Plan: 07/18/12: Pt is no longer smoking; states she quit about 2weeks ago. Rosario Lam NP History of depression 04/18/20122022 Overview: 2Pt has a history of anxiety/depression diagnosed in 2010. She is currently taking Prozac prescribed by Dr. Reeves. Patient states that she did have depression. Discussed increased risks of depression during and and importance of reporting the development or worsening of symptoms should they occur. Patient states she did have a suicidal attempt in 2010 and was admitted to [facility]. She states she last had suicidal thoughts about 5 years ago. TKRN History of alcohol abuse 04/18/201206/2023 Overview: 04/18/2012Patient states before she found out she was she consumed about 10 beers every other day. She denies any alcohol use since finding out she was . Discussed risks of alcohol consumption during . Patient denies any other drug use. Family history of congenital heart defect 04/18/2012 01/01/2023 Overview: 04/18/2012Father of the baby's uncle born with cerebral palsy and a heart defect. Surgical correction was done. His uncle at age 11. Depression 05/26/2011 09/18/2019 Telangiectasia 01/27/2010 09/18/2019 Rosacea 01/27/2010 09/18/2019 Other acne 01/27/2010 09/18/2019 documented as of this encounter (statuses as of 05/14/2023) [facility]04-19-2023 History of Past illness Narrative* Problem Noted Date Diagnosed Date Resolved Date Abnormal glucose complicating 11/08/2022 01/01/2023 Anemia during in third trimester 11/08/2022 01/01/2023 Diet controlled gestational diabetes mellitus (GDM) in second trimester 11/08/2022 01/01/2023 Overview: 11/08/22- 2 levels out of 3 elevated. Supplies and referrals ordered. Sulma Bartholomew APRN.JULISSA Positive GBS test 11/06/2022 01/01/2023 Elevated glucose 11/06/2022 01/01/2023 Overview: 11/06/22- 1 hour elevated- 3 hour ordered. Sulma Bartholomew APRN.CNM Anemia 11/06/2022 01/01/2023 Overview: 11/06/22- iron studies ordered. Start oral iron. Repeat cbc 4 weeks. Sulma Bartholomew APRN.CNM Needle stick, hypodermic, ac cidental, initial encounter 08/14/2022 01/01/2023 Overview: On 08/12/22. See ID consult note from 08/14/22. SW Spotting in early 04/13/2022 01/01/2023 Overview: 04/13/2022atient was seen in the [place] ER for spotting on April [address] Briones for follow-up and serum quantitative hCGs were done. Patient denies any bleeding since then.TKRN Engages in vaping 04/13/2022 01/01/2023 Overview: 04/13/2022 Patient states she has been vaping nicotine for the past 5 years. She recently saw her PCP Dr. Reeves and has tried using nicotine patches. I have advised her of the [place] tobacco quit line and [facility] smoking cessation program. I have discussed the risks of vaping during and advised patient to continue trying to quit.TKRN History of macrosomia in inf ant in prior , currently 04/13/2022 01/01/2023 Overview: 04/13/2022 Patient's previous child weight was 9 pounds. TKRN Patient request for diagnostic testing 04/13/2022 01/01/2023 Overview: 04/13/2022atient desires aneuploidy screening. I have given her contact information for [employer] to check on insurance coverage. Patient considering horizon screening testing. Contact information for the [employer] rep given to patient to check on insurance coverage.Marlon Cortez RN HSIL (high grade squamous in traepithelial lesion) on Pap smear of cervix 01/10/2022 Overview: 04/26/22- HSIL on pathology - repeat colposcopy post . Sulma Bartholomew APRN.CNM 01/10/22- Colposcopy ordered. Sulma Bartholomew APRN.CNM Urinary incontinence 04/27/2020 020 ASCUS with positive high risk HPV cervical 09/26/2019 01/01/2023 Overview: 09/26/19 Colposcopy ordered. Kylee Gil APRN.[employer] Vapes nicotine containing substance 09/07/2015 01/01/2023 Overview: Started at age 14 up to 2 PPD. Quit 06/2015 Last Assessment & Plan: Assessment: Patient very interested in cessation PLAN: Nicotine patches- will try to decrease nicotine level on patches. Uncomplicated asthma 09/07/2015 020 Overview: 04/18/2012Patient has a history of asthma. She uses an albuterol inhaler when necessary. Family history of leukemia 02/04/2015 0 01/01/2023 Routine gynecological examination 12/09/2014 09/18/2019 Overview: [facility]. Chlamydia infection 09/23/2013 09/18/19 18 with adoption planned 04/22/2012 10/08/2012 Tobacco use in 04/18/2012 Overview: 04/18/2012Pt smokes one to 2 cigarettes a day, down from one half pack per day. Discussed risks of smoking during . Advised pt to quit. Last Assessment & Plan: 07/18/12: Pt is no longer smoking; states she quit about 2weeks ago. Rosario Lam NP History of depression 04/18/20122022 Overview: 2Pt has a history of anxiety/depression diagnosed in 2010. She is currently taking Prozac prescribed by Dr. Reeves. Patient states that she did have depression. Discussed increased risks of depression during and and importance of reporting the development or worsening of symptoms should they occur. Patient states she did have a suicidal attempt in 2010 and was admitted to [facility]. She states she last had suicidal thoughts about 5 years ago. TKRN History of alcohol abuse 04/18/201206/2023 Overview: 04/18/2012Patient states before she found out she was she consumed about 10 beers every other day. She denies any alcohol use since finding out she was . Discussed risks of alcohol consumption during . Patient denies any other drug use. Family history of congenital heart defect 04/18/2012 01/01/2023 Overview: 04/18/2012Father of the baby's uncle born with cerebral palsy and a heart defect. Surgical correction was done. His uncle at age 11. Depression 05/26/2011 09/18/2019 Telangiectasia 01/27/2010 09/18/2019 Rosacea 01/27/2010 09/18/2019 Other acne 01/27/2010 09/18/2019 documented as of this encounter (statuses as of 05/14/2023) [facility]04-19-2023 History of Past illness Narrative* Problem Noted Date Diagnosed Date Resolved Date Abnormal glucose complicating 11/08/2022 01/01/2023 Anemia during in third trimester 11/08/2022 01/01/2023 Diet controlled gestational diabetes mellitus (GDM) in second trimester 11/08/2022 01/01/2023 Overview: 11/08/22- 2 levels out of 3 elevated. Supplies and referrals ordered. Sulma Bartholomew APRN.JULISSA Positive GBS test 11/06/2022 01/01/2023 Elevated glucose 11/06/2022 01/01/2023 Overview: 11/06/22- 1 hour elevated- 3 hour ordered. Sulma Bartholomew APRN.CNM Anemia 11/06/2022 01/01/2023 Overview: 11/06/22- iron studies ordered. Start oral iron. Repeat cbc 4 weeks. Sulma Bartholomew APRN.KRYSTYNAM Needle stick, hypodermic, ac cidental, initial encounter 08/14/2022 01/01/2023 Overview: On 08/12/22. See ID consult note from 08/14/22. SW Spotting in early 04/13/2022 01/01/2023 Overview: 04/13/2022atient was seen in the [place] ER for spotting on April [address] Briones for follow-up and serum quantitative hCGs were done. Patient denies any bleeding since then.TKRN Engages in vaping 04/13/2022 01/01/2023 Overview: 04/13/2022 Patient states she has been vaping nicotine for the past 5 years. She recently saw her PCP Dr. Reeves and has tried using nicotine patches. I have advised her of the [place] tobacco quit line and [facility] smoking cessation program. I have discussed the risks of vaping during and advised patient to continue trying to quit.TKRN History of macrosomia in inf ant in prior , currently 04/13/2022 01/01/2023 Overview: 04/13/2022 Patient's previous child weight was 9 pounds. TKRN Patient request for diagnostic testing 04/13/2022 01/01/2023 Overview: 04/13/2022atient desires aneuploidy screening. I have given her contact information for [employer] to check on insurance coverage. Patient considering horizon screening testing. Contact information for the [employer] rep given to patient to check on insurance coverage.Marlon Cortez RN HSIL (high grade squamous in traepithelial lesion) on Pap smear of cervix 01/10/2022 Overview: 04/26/22- HSIL on pathology - repeat colposcopy post . Sulma Bartholomew APRN.CNM 01/10/22- Colposcopy ordered. Sulma Bartholomew APRN.CNM Urinary incontinence 04/27/2020 020 ASCUS with positive high risk HPV cervical 09/26/2019 01/01/2023 Overview: 09/26/19 Colposcopy ordered. Kylee Gil APRN.[employer] Vapes nicotine containing substance 09/07/2015 01/01/2023 Overview: Started at age 14 up to 2 PPD. Quit 06/2015 Last Assessment & Plan: Assessment: Patient very interested in cessation PLAN: Nicotine patches- will try to decrease nicotine level on patches. Uncomplicated asthma 09/07/2015 020 Overview: 04/18/2012Patient has a history of asthma. She uses an albuterol inhaler when necessary. Family history of leukemia 02/04/2015 0 01/01/2023 Routine gynecological examination 12/09/2014 09/18/2019 Overview: [facility]. Chlamydia infection 09/23/2013 09/18/19 18 with adoption planned 04/22/2012 10/08/2012 Tobacco use in 04/18/2012 Overview: 04/18/2012Pt smokes one to 2 cigarettes a day, down from one half pack per day. Discussed risks of smoking during . Advised pt to quit. Last Assessment & Plan: 07/18/12: Pt is no longer smoking; states she quit about 2weeks ago. Rosario Lam NP History of depression 04/18/20122022 Overview: 2Pt has a history of anxiety/depression diagnosed in 2010. She is currently taking Prozac prescribed by Dr. Reeves. Patient states that she did have depression. Discussed increased risks of depression during and and importance of reporting the development or worsening of symptoms should they occur. Patient states she did have a suicidal attempt in 2010 and was admitted to [facility]. She states she last had suicidal thoughts about 5 years ago. TKRN History of alcohol abuse 04/18/201206/2023 Overview: 04/18/2012Patient states before she found out she was she consumed about 10 beers every other day. She denies any alcohol use since finding out she was . Discussed risks of alcohol consumption during . Patient denies any other drug use. Family history of congenital heart defect 04/18/2012 01/01/2023 Overview: 04/18/2012Father of the baby's uncle born with cerebral palsy and a heart defect. Surgical correction was done. His uncle at age 11. Depression 05/26/2011 09/18/2019 Telangiectasia 01/27/2010 09/18/2019 Rosacea 01/27/2010 09/18/2019 Other acne 01/27/2010 09/18/2019 documented as of this encounter (statuses as of 05/14/2023) [facility]04-19-2023 History of Past illness Narrative* Problem Noted Date Diagnosed Date Resolved Date Abnormal glucose complicating 11/08/2022 01/01/2023 Anemia during in third trimester 11/08/2022 01/01/2023 Diet controlled gestational diabetes mellitus (GDM) in second trimester 11/08/2022 01/01/2023 Overview: 11/08/22- 2 levels out of 3 elevated. Supplies and referrals ordered. Sulma Bartholomew APRN.CNM Positive GBS test 11/06/2022 01/01/2023 Elevated glucose 11/06/2022 01/01/2023 Overview: 11/06/22- 1 hour elevated- 3 hour ordered. Sulma Bartholomew APRN.CNM Anemia 11/06/2022 01/01/2023 Overview: 11/06/22- iron studies ordered. Start oral iron. Repeat cbc 4 weeks. Sulma Bartholomew APRN.KRYSTYNAM Needle stick, hypodermic, ac cidental, initial encounter 08/14/2022 01/01/2023 Overview: On 08/12/22. See ID consult note from 08/14/22. SW Spotting in early 04/13/2022 01/01/2023 Overview: 04/13/2022atient was seen in the [place] ER for spotting on April [address] Briones for follow-up and serum quantitative hCGs were done. Patient denies any bleeding since then.TKRN Engages in vaping 04/13/2022 01/01/2023 Overview: 04/13/2022 Patient states she has been vaping nicotine for the past 5 years. She recently saw her PCP Dr. Reeves and has tried using nicotine patches. I have advised her of the [place] tobacco quit line and [facility] smoking cessation program. I have discussed the risks of vaping during and advised patient to continue trying to quit.TKRN History of macrosomia in inf ant in prior , currently 04/13/2022 01/01/2023 Overview: 04/13/2022 Patient's previous child weight was 9 pounds. TKRN Patient request for diagnostic testing 04/13/2022 01/01/2023 Overview: 04/13/2022atient desires aneuploidy screening. I have given her contact information for [employer] to check on insurance coverage. Patient considering horizon screening testing. Contact information for the [employer] rep given to patient to check on insurance coverage.Marlon Cortez RN HSIL (high grade squamous in traepithelial lesion) on Pap smear of cervix 01/10/2022 Overview: 04/26/22- HSIL on pathology - repeat colposcopy post . Sulma Bartholomew APRN.CNM 01/10/22- Colposcopy ordered. Sulma Bartholomew APRN.CNM Urinary incontinence 04/27/2020 020 ASCUS with positive high risk HPV cervical 09/26/2019 01/01/2023 Overview: 09/26/19 Colposcopy ordered. Kylee Gil APRN.ANISHA Vapes nicotine containing substance 09/07/2015 01/01/2023 Overview: Started at age 14 up to 2 PPD. Quit 06/2015 Last Assessment & Plan: Assessment: Patient very interested in cessation PLAN: Nicotine patches- will try to decrease nicotine level on patches. Uncomplicated asthma 09/07/2015 020 Overview: 04/18/2012Patient has a history of asthma. She uses an albuterol inhaler when necessary. Family history of leukemia 02/04/2015 0 01/01/2023 Routine gynecological examination 12/09/2014 09/18/2019 Overview: [facility]. Chlamydia infection 09/23/2013 09/18/19 18 with adoption planned 04/22/2012 10/08/2012 Tobacco use in 04/18/2012 Overview: 04/18/2012Pt smokes one to 2 cigarettes a day, down from one half pack per day. Discussed risks of smoking during . Advised pt to quit. Last Assessment & Plan: 07/18/12: Pt is no longer smoking; states she quit about 2weeks ago. Rosario Lam, CLAIRE History of depression 04/18/20122022 Overview: 2Pt has a history of anxiety/depression diagnosed in 2010. She is currently taking Prozac prescribed by Dr. Reeves. Patient states that she did have depression. Discussed increased risks of depression during and and importance of reporting the development or worsening of symptoms should they occur. Patient states she did have a suicidal attempt in 2010 and was admitted to [facility]. She states she last had suicidal thoughts about 5 years ago. TKRN History of alcohol abuse 04/18/201206/2023 Overview: 04/18/2012Patient states before she found out she was she consumed about 10 beers every other day. She denies any alcohol use since finding out she was . Discussed risks of alcohol consumption during . Patient denies any other drug use. Family history of congenital heart defect 04/18/2012 01/01/2023 Overview: 04/18/2012Father of the baby's uncle born with cerebral palsy and a heart defect. Surgical correction was done. His uncle at age 11. Depression 05/26/2011 09/18/2019 Telangiectasia 01/27/2010 09/18/2019 Rosacea 01/27/2010 09/18/2019 Other acne 01/27/2010 09/18/2019 documented as of this encounter (statuses as of 05/14/2023) [facility] History of Past illness Narrative* Problem Noted Date Diagnosed Date Resolved Date Abnormal glucose complicating 11/08/2022 01/01/2023 Anemia during in third trimester 11/08/2022 01/01/2023 Diet controlled gestational diabetes mellitus (GDM) in second trimester 11/08/2022 01/01/2023 Overview: 11/08/22- 2 levels out of 3 elevated. Supplies and referrals ordered. Sulma Bartholomew APRN.JULISSA Positive GBS test 11/06/2022 01/01/2023 Elevated glucose 11/06/2022 01/01/2023 Overview: 11/06/22- 1 hour elevated- 3 hour ordered. Sulma Bartholomew APRN.CNCorie Anemia 11/06/2022 01/01/2023 Overview: 11/06/22- iron studies ordered. Start oral iron. Repeat cbc 4 weeks. Sulma Bartholomew APRN.CNM Needle stick, hypodermic, ac cidental, initial encounter 08/14/2022 01/01/2023 Overview: On 08/12/22. See ID consult note from 08/14/22. SW Spotting in early 04/13/2022 01/01/2023 Overview: 04/13/2022atient was seen in the [place] ER for spotting on April [address] Briones for follow-up and serum quantitative hCGs were done. Patient denies any bleeding since then.TKRN Engages in vaping 04/13/2022 01/01/2023 Overview: 04/13/2022 Patient states she has been vaping nicotine for the past 5 years. She recently saw her PCP Dr. Reeves and has tried using nicotine patches. I have advised her of the [place] tobacco quit line and [facility] smoking cessation program. I have discussed the risks of vaping during and advised patient to continue trying to quit.TKRN History of macrosomia in inf ant in prior , currently 04/13/2022 01/01/2023 Overview: 04/13/2022 Patient's previous child weight was 9 pounds. TKRN Patient request for diagnostic testing 04/13/2022 01/01/2023 Overview: 04/13/2022atient desires aneuploidy screening. I have given her contact information for [employer] to check on insurance coverage. Patient considering horizon screening testing. Contact information for the [employer] rep given to patient to check on insurance coverage.Marlon Cortez RN HSIL (high grade squamous in traepithelial lesion) on Pap smear of cervix 01/10/2022 Overview: 04/26/22- HSIL on pathology - repeat colposcopy post . Sulma Bartholomew APRN.JULISSA 01/10/22- Colposcopy ordered. Sulma Bartholomew APRN.CNM Urinary incontinence 04/27/2020 020 ASCUS with positive high risk HPV cervical 09/26/2019 01/01/2023 Overview: 09/26/19 Colposcopy ordered. Kylee Gil APRN.[employer] Vapes nicotine containing substance 09/07/2015 01/01/2023 Overview: Started at age 14 up to 2 PPD. Quit 06/2015 Last Assessment & Plan: Assessment: Patient very interested in cessation PLAN: Nicotine patches- will try to decrease nicotine level on patches. Uncomplicated asthma 09/07/2015 020 Overview: 04/18/2012Patient has a history of asthma. She uses an albuterol inhaler when necessary. Family history of leukemia 02/04/2015 0 01/01/2023 Routine gynecological examination 12/09/2014 09/18/2019 Overview: [facility]. Chlamydia infection 09/23/2013 09/18/19 20 with adoption planned 04/22/2012 10/08/2012 Tobacco use in 04/18/2012 Overview: 04/18/2012Pt smokes one to 2 cigarettes a day, down from one half pack per day. Discussed risks of smoking during . Advised pt to quit. Last Assessment & Plan: 07/18/12: Pt is no longer smoking; states she quit about 2weeks ago. Rosario Lam NP History of depression 04/18/20122022 Overview: 2Pt has a history of anxiety/depression diagnosed in 2010. She is currently taking Prozac prescribed by Dr. Reeves. Patient states that she did have depression. Discussed increased risks of depression during and and importance of reporting the development or worsening of symptoms should they occur. Patient states she did have a suicidal attempt in 2010 and was admitted to [facility]. She states she last had suicidal thoughts about 5 years ago. TKRN History of alcohol abuse 04/18/201206/2023 Overview: 04/18/2012Patient states before she found out she was she consumed about 10 beers every other day. She denies any alcohol use since finding out she was . Discussed risks of alcohol consumption during . Patient denies any other drug use. Family history of congenital heart defect 04/18/2012 01/01/2023 Overview: 04/18/2012Father of the baby's uncle born with cerebral palsy and a heart defect. Surgical correction was done. His uncle at age 11. Depression 05/26/2011 09/18/2019 Telangiectasia 01/27/2010 09/18/2019 Rosacea 01/27/2010 09/18/2019 Other acne 01/27/2010 09/18/2019 documented as of this encounter (statuses as of 05/30/2023) [facility] History of Past illness Narrative* Problem Noted Date Diagnosed Date Resolved Date Abnormal glucose complicating 11/08/2022 01/01/2023 Anemia during in third trimester 11/08/2022 01/01/2023 Diet controlled gestational diabetes mellitus (GDM) in second trimester 11/08/2022 01/01/2023 Overview: 11/08/22- 2 levels out of 3 elevated. Supplies and referrals ordered. Sulma Bartholomew APRN.JULISSA Positive GBS test 11/06/2022 01/01/2023 Elevated glucose 11/06/2022 01/01/2023 Overview: 11/06/22- 1 hour elevated- 3 hour ordered. Sulma Bartholomew APRN.CNM Anemia 11/06/2022 01/01/2023 Overview: 11/06/22- iron studies ordered. Start oral iron. Repeat cbc 4 weeks. Sulma Bartholomew APRN.CNM Needle stick, hypodermic, ac cidental, initial encounter 08/14/2022 01/01/2023 Overview: On 08/12/22. See ID consult note from 08/14/22. SW Spotting in early 04/13/2022 01/01/2023 Overview: 04/13/2022atient was seen in the [place] ER for spotting on April [address] Briones for follow-up and serum quantitative hCGs were done. Patient denies any bleeding since then.TKRN Engages in vaping 04/13/2022 01/01/2023 Overview: 04/13/2022 Patient states she has been vaping nicotine for the past 5 years. She recently saw her PCP Dr. Reeves and has tried using nicotine patches. I have advised her of the [place] tobacco quit line and [facility] smoking cessation program. I have discussed the risks of vaping during and advised patient to continue trying to quit.TKRN History of macrosomia in inf ant in prior , currently 04/13/2022 01/01/2023 Overview: 04/13/2022 Patient's previous child weight was 9 pounds. TKRN Patient request for diagnostic testing 04/13/2022 01/01/2023 Overview: 04/13/2022atient desires aneuploidy screening. I have given her contact information for [employer] to check on insurance coverage. Patient considering horizon screening testing. Contact information for the [employer] rep given to patient to check on insurance coverage.Marlon Cortez RN HSIL (high grade squamous in traepithelial lesion) on Pap smear of cervix 01/10/2022 Overview: 04/26/22- HSIL on pathology - repeat colposcopy post . Sulma Bartholomew APRN.CNM 01/10/22- Colposcopy ordered. Sulma Bartholomew APRN.CNM Urinary incontinence 04/27/2020 020 ASCUS with positive high risk HPV cervical 09/26/2019 01/01/2023 Overview: 09/26/19 Colposcopy ordered. Kylee Gil APRN.QU[employer]ITATIVE ANALYST MARKETING Vapes nicotine containing substance 09/07/2015 01/01/2023 Overview: Started at age 14 up to 2 PPD. Quit 06/2015 Last Assessment & Plan: Assessment: Patient very interested in cessation PLAN: Nicotine patches- will try to decrease nicotine level on patches. Uncomplicated asthma 09/07/2015 020 Overview: 04/18/2012Patient has a history of asthma. She uses an albuterol inhaler when necessary. Family history of leukemia 02/04/2015 0 01/01/2023 Routine gynecological examination 12/09/2014 09/18/2019 Overview: [facility]. Chlamydia infection 09/23/2013 09/18/19 18 with adoption planned 04/22/2012 10/08/2012 Tobacco use in 04/18/2012 Overview: 04/18/2012Pt smokes one to 2 cigarettes a day, down from one half pack per day. Discussed risks of smoking during . Advised pt to quit. Last Assessment & Plan: 07/18/12: Pt is no longer smoking; states she quit about 2weeks ago. Rosario Lam NP History of depression 04/18/20122022 Overview: 2Pt has a history of anxiety/depression diagnosed in 2010. She is currently taking Prozac prescribed by Dr. Reeves. Patient states that she did have depression. Discussed increased risks of depression during and and importance of reporting the development or worsening of symptoms should they occur. Patient states she did have a suicidal attempt in 2010 and was admitted to [facility]. She states she last had suicidal thoughts about 5 years ago. TKRN History of alcohol abuse 04/18/201206/2023 Overview: 04/18/2012Patient states before she found out she was she consumed about 10 beers every other day. She denies any alcohol use since finding out she was . Discussed risks of alcohol consumption during . Patient denies any other drug use. Family history of congenital heart defect 04/18/2012 01/01/2023 Overview: 04/18/2012Father of the baby's uncle born with cerebral palsy and a heart defect. Surgical correction was done. His uncle at age 11. Depression 05/26/2011 09/18/2019 Telangiectasia 01/27/2010 09/18/2019 Rosacea 01/27/2010 09/18/2019 Other acne 01/27/2010 09/18/2019 documented as of this encounter (statuses as of 05/30/2023) [facility]04-19-2023 History of Past illness Narrative* Problem Noted Date Diagnosed Date Resolved Date Abnormal glucose complicating 11/08/2022 01/01/2023 Anemia during in third trimester 11/08/2022 01/01/2023 Diet controlled gestational diabetes mellitus (GDM) in second trimester 11/08/2022 01/01/2023 Overview: 11/08/22- 2 levels out of 3 elevated. Supplies and referrals ordered. Sulma Bartholomew APRN.CNM Positive GBS test 11/06/2022 01/01/2023 Elevated glucose 11/06/2022 01/01/2023 Overview: 11/06/22- 1 hour elevated- 3 hour ordered. Sulma Bartholomew APRN.CNM Anemia 11/06/2022 01/01/2023 Overview: 11/06/22- iron studies ordered. Start oral iron. Repeat cbc 4 weeks. Sulma Bartholomew APRN.CNM Needle stick, hypodermic, ac cidental, initial encounter 08/14/2022 01/01/2023 Overview: On 08/12/22. See ID consult note from 08/14/22. SW Spotting in early 04/13/2022 01/01/2023 Overview: 04/13/2022atient was seen in the [place] ER for spotting on April [address] Briones for follow-up and serum quantitative hCGs were done. Patient denies any bleeding since then.TKRN Engages in vaping 04/13/2022 01/01/2023 Overview: 04/13/2022 Patient states she has been vaping nicotine for the past 5 years. She recently saw her PCP Dr. Reeves and has tried using nicotine patches. I have advised her of the [place] tobacco quit line and [facility] smoking cessation program. I have discussed the risks of vaping during and advised patient to continue trying to quit.TKRN History of macrosomia in inf ant in prior , currently 04/13/2022 01/01/2023 Overview: 04/13/2022 Patient's previous child weight was 9 pounds. TKRN Patient request for diagnostic testing 04/13/2022 01/01/2023 Overview: 2Patient desires aneuploidy screening. I have given her contact information for [employer] to check on insurance coverage. Patient considering horizon screening testing. Contact information for the [employer] rep given to patient to check on insurance coverage.Marlon Cortez RN HSIL (high grade squamous in traepithelial lesion) on Pap smear of cervix 01/10/2022 Overview: 04/26/22- HSIL on pathology - repeat colposcopy post . Sulma Bartholomew APRN.CNM 01/10/22- Colposcopy ordered. Sulma Bartholomew APRN.JULISSA Urinary incontinence 04/27/2020 020 ASCUS with positive high risk HPV cervical 09/26/2019 01/01/2023 Overview: 09/26/19 Colposcopy ordered. Kylee Gil APRN.QU[employer]ITATIVE ANALYST MARKETING Vapes nicotine containing substance 09/07/2015 01/01/2023 Overview: Started at age 14 up to 2 PPD. Quit 06/2015 Last Assessment & Plan: Assessment: Patient very interested in cessation PLAN: Nicotine patches- will try to decrease nicotine level on patches. Uncomplicated asthma 09/07/2015 020 Overview: 04/18/2012Patient has a history of asthma. She uses an albuterol inhaler when necessary. Family history of leukemia 02/04/2015 0 01/01/2023 Routine gynecological examination 12/09/2014 09/18/2019 Overview: [facility]. Chlamydia infection 09/23/2013 09/18/19 18 with adoption planned 04/22/2012 10/08/2012 Tobacco use in 04/18/2012 Overview: 04/18/2012Pt smokes one to 2 cigarettes a day, down from one half pack per day. Discussed risks of smoking during . Advised pt to quit. Last Assessment & Plan: 07/18/12: Pt is no longer smoking; states she quit about 2weeks ago. Rosario Lam NP History of depression 04/18/20122022 Overview: 2Pt has a history of anxiety/depression diagnosed in 2010. She is currently taking Prozac prescribed by Dr. Reeves. Patient states that she did have depression. Discussed increased risks of depression during and and importance of reporting the development or worsening of symptoms should they occur. Patient states she did have a suicidal attempt in 2010 and was admitted to [facility]. She states she last had suicidal thoughts about 5 years ago. TKRN History of alcohol abuse 04/18/201206/2023 Overview: 04/18/2012Patient states before she found out she was she consumed about 10 beers every other day. She denies any alcohol use since finding out she was . Discussed risks of alcohol consumption during . Patient denies any other drug use. Family history of congenital heart defect 04/18/2012 01/01/2023 Overview: 04/18/2012Father of the baby's uncle born with cerebral palsy and a heart defect. Surgical correction was done. His uncle at age 11. Depression 05/26/2011 09/18/2019 Telangiectasia 01/27/2010 09/18/2019 Rosacea 01/27/2010 09/18/2019 Other acne 01/27/2010 09/18/2019 documented as of this encounter (statuses as of 05/31/2023) [facility]04-19-2023 History of Past illness Narrative* Problem Noted Date Diagnosed Date Resolved Date Abnormal glucose complicating 11/08/2022 01/01/2023 Anemia during in third trimester 11/08/2022 01/01/2023 Diet controlled gestational diabetes mellitus (GDM) in second trimester 11/08/2022 01/01/2023 Overview: 11/08/22- 2 levels out of 3 elevated. Supplies and referrals ordered. Sulma Bartholomew APRN.CNM Positive GBS test 11/06/2022 01/01/2023 Elevated glucose 11/06/2022 01/01/2023 Overview: 11/06/22- 1 hour elevated- 3 hour ordered. Sulma Bartholomew APRN.CNM Anemia 11/06/2022 01/01/2023 Overview: 11/06/22- iron studies ordered. Start oral iron. Repeat cbc 4 weeks. Sulma Bartholomew APRN.CNM Needle stick, hypodermic, ac cidental, initial encounter 08/14/2022 01/01/2023 Overview: On 08/12/22. See ID consult note from 08/14/22. SW Spotting in early 04/13/2022 01/01/2023 Overview: 04/13/2022atient was seen in the [place] ER for spotting on April [address] Briones for follow-up and serum quantitative hCGs were done. Patient denies any bleeding since then.TKRN Engages in vaping 04/13/2022 01/01/2023 Overview: 04/13/2022 Patient states she has been vaping nicotine for the past 5 years. She recently saw her PCP Dr. Reeves and has tried using nicotine patches. I have advised her of the [place] tobacco quit line and [facility] smoking cessation program. I have discussed the risks of vaping during and advised patient to continue trying to quit.TKRN History of macrosomia in inf ant in prior , currently 04/13/2022 01/01/2023 Overview: 04/13/2022 Patient's previous child weight was 9 pounds. TKRN Patient request for diagnostic testing 04/13/2022 01/01/2023 Overview: 04/13/2022atient desires aneuploidy screening. I have given her contact information for [employer] to check on insurance coverage. Patient considering horizon screening testing. Contact information for the [employer] rep given to patient to check on insurance coverage.Marlon Cortez RN HSIL (high grade squamous in traepithelial lesion) on Pap smear of cervix 01/10/2022 Overview: 04/26/22- HSIL on pathology - repeat colposcopy post . Sulma Bartholomew APRN.JULISSA 01/10/22- Colposcopy ordered. Sulma Bartholomew APRN.JULISSA Urinary incontinence 04/27/2020 020 ASCUS with positive high risk HPV cervical 09/26/2019 01/01/2023 Overview: 09/26/19 Colposcopy ordered. Kylee Gil APRN.QUANTITATIVE ANALYST MARKETING Vapes nicotine containing substance 09/07/2015 01/01/2023 Overview: Started at age 14 up to 2 PPD. Quit 06/2015 Last Assessment & Plan: Assessment: Patient very interested in cessation PLAN: Nicotine patches- will try to decrease nicotine level on patches. Uncomplicated asthma 09/07/2015 020 Overview: 04/18/2012Patient has a history of asthma. She uses an albuterol inhaler when necessary. Family history of leukemia 02/04/2015 0 01/01/2023 Routine gynecological examination 12/09/2014 09/18/2019 Overview: [facility]. Chlamydia infection 09/23/2013 09/18/19 18 with adoption planned 04/22/2012 10/08/2012 Tobacco use in 04/18/2012 Overview: 04/18/2012Pt smokes one to 2 cigarettes a day, down from one half pack per day. Discussed risks of smoking during . Advised pt to quit. Last Assessment & Plan: 07/18/12: Pt is no longer smoking; states she quit about 2weeks ago. Rosario Lam NP History of depression 04/18/20122022 Overview: 2Pt has a history of anxiety/depression diagnosed in 2010. She is currently taking Prozac prescribed by Dr. Reeves. Patient states that she did have depression. Discussed increased risks of depression during and and importance of reporting the development or worsening of symptoms should they occur. Patient states she did have a suicidal attempt in 2010 and was admitted to [facility]. She states she last had suicidal thoughts about 5 years ago. TKRN History of alcohol abuse 04/18/201206/2023 Overview: 04/18/2012Patient states before she found out she was she consumed about 10 beers every other day. She denies any alcohol use since finding out she was . Discussed risks of alcohol consumption during . Patient denies any other drug use. Family history of congenital heart defect 04/18/2012 01/01/2023 Overview: 04/18/2012Father of the baby's uncle born with cerebral palsy and a heart defect. Surgical correction was done. His uncle at age 11. Depression 05/26/2011 09/18/2019 Telangiectasia 01/27/2010 09/18/2019 Rosacea 01/27/2010 09/18/2019 Other acne 01/27/2010 09/18/2019 documented as of this encounter (statuses as of 05/31/2023) [facility]04-19-2023 History of Past illness Narrative* Problem Noted Date Diagnosed Date Resolved Date Abnormal glucose complicating 11/08/2022 01/01/2023 Anemia during in third trimester 11/08/2022 01/01/2023 Diet controlled gestational diabetes mellitus (GDM) in second trimester 11/08/2022 01/01/2023 Overview: 11/08/22- 2 levels out of 3 elevated. Supplies and referrals ordered. Sulma Bartholomew APRN.CNM Positive GBS test 11/06/2022 01/01/2023 Elevated glucose 11/06/2022 01/01/2023 Overview: 11/06/22- 1 hour elevated- 3 hour ordered. Sulma Bartholomew APRN.CNM Anemia 11/06/2022 01/01/2023 Overview: 11/06/22- iron studies ordered. Start oral iron. Repeat cbc 4 weeks. Sulma Bartholomew APRN.CNM Needle stick, hypodermic, ac cidental, initial encounter 08/14/2022 01/01/2023 Overview: On 08/12/22. See ID consult note from 08/14/22. SW Spotting in early 04/13/2022 01/01/2023 Overview: 04/13/2022atient was seen in the [place] ER for spotting on April [address] Briones for follow-up and serum quantitative hCGs were done. Patient denies any bleeding since then.TKRN Engages in vaping 04/13/2022 01/01/2023 Overview: 04/13/2022 Patient states she has been vaping nicotine for the past 5 years. She recently saw her PCP Dr. Reeves and has tried using nicotine patches. I have advised her of the [place] tobacco quit line and [facility] smoking cessation program. I have discussed the risks of vaping during and advised patient to continue trying to quit.TKRN History of macrosomia in inf ant in prior , currently 04/13/2022 01/01/2023 Overview: 04/13/2022 Patient's previous child weight was 9 pounds. TKRN Patient request for diagnostic testing 04/13/2022 01/01/2023 Overview: 2Patient desires aneuploidy screening. I have given her contact information for [employer] to check on insurance coverage. Patient considering horizon screening testing. Contact information for the [employer] rep given to patient to check on insurance coverage.Marlon Cortez RN HSIL (high grade squamous in traepithelial lesion) on Pap smear of cervix 01/10/2022 3 Overview: 04/26/22- HSIL on pathology - repeat colposcopy post . Sulma Bartholomew APRN.CNM 01/10/22- Colposcopy ordered. Sulma Bartholomew APRN.CNM Urinary incontinence 04/27/2020 020 ASCUS with positive high risk HPV cervical 09/26/2019 01/01/2023 Overview: 09/26/19 Colposcopy ordered. Kylee Gil APRN.QUANTITATIVE ANALYST MARKETING Vapes nicotine containing substance 09/07/2015 01/01/2023 Overview: Started at age 14 up to 2 PPD. Quit 06/2015 Last Assessment & Plan: Assessment: Patient very interested in cessation PLAN: Nicotine patches- will try to decrease nicotine level on patches. Uncomplicated asthma 09/07/2015 020 Overview: 04/18/2012Patient has a history of asthma. She uses an albuterol inhaler when necessary. Family history of leukemia 02/04/2015 0 01/01/2023 Routine gynecological examination 12/09/2014 09/18/2019 Overview: [facility]. Chlamydia infection 09/23/2013 09/18/19 18 with adoption planned 04/22/2012 10/08/2012 Tobacco use in 04/18/2012 Overview: 04/18/2012Pt smokes one to 2 cigarettes a day, down from one half pack per day. Discussed risks of smoking during . Advised pt to quit. Last Assessment & Plan: 07/18/12: Pt is no longer smoking; states she quit about 2weeks ago. Rosario Lam NP History of depression 04/18/20122022 Overview: 2Pt has a history of anxiety/depression diagnosed in 2010. She is currently taking Prozac prescribed by Dr. Reeves. Patient states that she did have depression. Discussed increased risks of depression during and and importance of reporting the development or worsening of symptoms should they occur. Patient states she did have a suicidal attempt in 2010 and was admitted to [facility]. She states she last had suicidal thoughts about 5 years ago. TKRN History of alcohol abuse 04/18/201206/2023 Overview: 04/18/2012Patient states before she found out she was she consumed about 10 beers every other day. She denies any alcohol use since finding out she was . Discussed risks of alcohol consumption during . Patient denies any other drug use. Family history of congenital heart defect 04/18/2012 01/01/2023 Overview: 04/18/2012Father of the baby's uncle born with cerebral palsy and a heart defect. Surgical correction was done. His uncle at age 11. Depression 05/26/2011 09/18/2019 Telangiectasia 01/27/2010 09/18/2019 Rosacea 01/27/2010 09/18/2019 Other acne 01/27/2010 09/18/2019 documented as of this encounter (statuses as of 06/05/2023) [facility] History of Past illness Narrative* Problem Noted Date Diagnosed Date Resolved Date Abnormal glucose complicating 11/08/2022 01/01/2023 Anemia during in third trimester 11/08/2022 01/01/2023 Diet controlled gestational diabetes mellitus (GDM) in second trimester 11/08/2022 01/01/2023 Overview: 11/08/22- 2 levels out of 3 elevated. Supplies and referrals ordered. Sulma Bartholomew APRN.CNM Positive GBS test 11/06/2022 01/01/2023 Elevated glucose 11/06/2022 01/01/2023 Overview: 11/06/22- 1 hour elevated- 3 hour ordered. Sulma Bartholomew APRN.CNM Anemia 11/06/2022 01/01/2023 Overview: 11/06/22- iron studies ordered. Start oral iron. Repeat cbc 4 weeks. Sulma Bartholomew APRN.CNM Needle stick, hypodermic, ac cidental, initial encounter 08/14/2022 01/01/2023 Overview: On 08/12/22. See ID consult note from 08/14/22. SW Spotting in early 04/13/2022 01/01/2023 Overview: 04/13/2022atient was seen in the [place] ER for spotting on April [address] Briones for follow-up and serum quantitative hCGs were done. Patient denies any bleeding since then.TKRN Engages in vaping 04/13/2022 01/01/2023 Overview: 04/13/2022 Patient states she has been vaping nicotine for the past 5 years. She recently saw her PCP Dr. Reeves and has tried using nicotine patches. I have advised her of the [place] tobacco quit line and [facility] smoking cessation program. I have discussed the risks of vaping during and advised patient to continue trying to quit.TKRN History of macrosomia in inf ant in prior , currently 04/13/2022 01/01/2023 Overview: 04/13/2022 Patient's previous child weight was 9 pounds. TKRN Patient request for diagnostic testing 04/13/2022 01/01/2023 Overview: 04/13/2022atient desires aneuploidy screening. I have given her contact information for [employer] to check on insurance coverage. Patient considering horizon screening testing. Contact information for the [employer] rep given to patient to check on insurance coverage.Marlon Cortez RN HSIL (high grade squamous in traepithelial lesion) on Pap smear of cervix 01/10/2022 Overview: 04/26/22- HSIL on pathology - repeat colposcopy post . Sulma Bartholomew APRN.JULISSA 01/10/22- Colposcopy ordered. Sulma Bartholomew APRN.CNM Urinary incontinence 04/27/2020 020 ASCUS with positive high risk HPV cervical 09/26/2019 01/01/2023 Overview: 09/26/19 Colposcopy ordered. Kylee Gil APRN.QU[employer]ITATIVE [employer]NALY[employer] MARK[employer] Vapes nicotine containing substance 09/07/2015 01/01/2023 Overview: Started at age 14 up to 2 PPD. Quit 06/2015 Last Assessment & Plan: Assessment: Patient very interested in cessation PLAN: Nicotine patches- will try to decrease nicotine level on patches. Uncomplicated asthma 09/07/2015 020 Overview: 04/18/2012Patient has a history of asthma. She uses an albuterol inhaler when necessary. Family history of leukemia 02/04/2015 0 01/01/2023 Routine gynecological examination 12/09/2014 09/18/2019 Overview: [facility]. Chlamydia infection 09/23/2013 09/18/19 18 with adoption planned 04/22/2012 10/08/2012 Tobacco use in 04/18/2012 Overview: 04/18/2012Pt smokes one to 2 cigarettes a day, down from one half pack per day. Discussed risks of smoking during . Advised pt to quit. Last Assessment & Plan: 07/18/12: Pt is no longer smoking; states she quit about 2weeks ago. Rosario Lam NP History of depression 04/18/20122022 Overview: 2Pt has a history of anxiety/depression diagnosed in 2010. She is currently taking Prozac prescribed by Dr. Reeves. Patient states that she did have depression. Discussed increased risks of depression during and and importance of reporting the development or worsening of symptoms should they occur. Patient states she did have a suicidal attempt in 2010 and was admitted to [facility]. She states she last had suicidal thoughts about 5 years ago. TKRN History of alcohol abuse 04/18/201206/2023 Overview: 04/18/2012Patient states before she found out she was she consumed about 10 beers every other day. She denies any alcohol use since finding out she was . Discussed risks of alcohol consumption during . Patient denies any other drug use. Family history of congenital heart defect 04/18/2012 01/01/2023 Overview: 04/18/2012Father of the baby's uncle born with cerebral palsy and a heart defect. Surgical correction was done. His uncle at age 11. Depression 05/26/2011 09/18/2019 Telangiectasia 01/27/2010 09/18/2019 Rosacea 01/27/2010 09/18/2019 Other acne 01/27/2010 09/18/2019 documented as of this encounter (statuses as of 06/06/2023) [facility] History of Past illness Narrative* Problem Noted Date Diagnosed Date Resolved Date Abnormal glucose complicating 11/08/2022 01/01/2023 Anemia during in third trimester 11/08/2022 01/01/2023 Diet controlled gestational diabetes mellitus (GDM) in second trimester 11/08/2022 01/01/2023 Overview: 11/08/22- 2 levels out of 3 elevated. Supplies and referrals ordered. Sulma Bartholomew APRN.KRYSTYNAM Positive GBS test 11/06/2022 01/01/2023 Elevated glucose 11/06/2022 01/01/2023 Overview: 11/06/22- 1 hour elevated- 3 hour ordered. Sulma Bartholomew APRN.CNM Anemia 11/06/2022 01/01/2023 Overview: 11/06/22- iron studies ordered. Start oral iron. Repeat cbc 4 weeks. Sulma Bartholomew APRN.CNM Needle stick, hypodermic, ac cidental, initial encounter 08/14/2022 01/01/2023 Overview: On 08/12/22. See ID consult note from 08/14/22. SW Spotting in early 04/13/2022 01/01/2023 Overview: 04/13/2022atient was seen in the [place] ER for spotting on April [address] Briones for follow-up and serum quantitative hCGs were done. Patient denies any bleeding since then.TKRN Engages in vaping 04/13/2022 01/01/2023 Overview: 04/13/2022 Patient states she has been vaping nicotine for the past 5 years. She recently saw her PCP Dr. Reeves and has tried using nicotine patches. I have advised her of the [place] tobacco quit line and [facility] smoking cessation program. I have discussed the risks of vaping during and advised patient to continue trying to quit.TKRN History of macrosomia in inf ant in prior , currently 04/13/2022 01/01/2023 Overview: 04/13/2022 Patient's previous child weight was 9 pounds. TKRN Patient request for diagnostic testing 04/13/2022 01/01/2023 Overview: 04/13/2022atient desires aneuploidy screening. I have given her contact information for [employer] to check on insurance coverage. Patient considering horizon screening testing. Contact information for the [employer] rep given to patient to check on insurance coverage.Marlon Cortez RN HSIL (high grade squamous in traepithelial lesion) on Pap smear of cervix 01/10/2022 3 Overview: 04/26/22- HSIL on pathology - repeat colposcopy post . Sulma Bartholomew APRN.JULISSA 01/10/22- Colposcopy ordered. Sulma Bartholomew APRN.JULISSA Urinary incontinence 04/27/2020 020 ASCUS with positive high risk HPV cervical 09/26/2019 01/01/2023 Overview: 09/26/19 Colposcopy ordered. Kylee Gil APRN.[employer] Vapes nicotine containing substance 09/07/2015 01/01/2023 Overview: Started at age 14 up to 2 PPD. Quit 06/2015 Last Assessment & Plan: Assessment: Patient very interested in cessation PLAN: Nicotine patches- will try to decrease nicotine level on patches. Uncomplicated asthma 09/07/2015 020 Overview: 04/18/2012Patient has a history of asthma. She uses an albuterol inhaler when necessary. Family history of leukemia 02/04/2015 0 01/01/2023 Routine gynecological examination 12/09/2014 09/18/2019 Overview: [facility]. Chlamydia infection 09/23/2013 09/18/19 20 with adoption planned 04/22/2012 10/08/2012 Tobacco use in 04/18/2012 Overview: 04/18/2012Pt smokes one to 2 cigarettes a day, down from one half pack per day. Discussed risks of smoking during . Advised pt to quit. Last Assessment & Plan: 07/18/12: Pt is no longer smoking; states she quit about 2weeks ago. Rosario Lam NP History of depression 04/18/20122022 Overview: 2Pt has a history of anxiety/depression diagnosed in 2010. She is currently taking Prozac prescribed by Dr. Reeves. Patient states that she did have depression. Discussed increased risks of depression during and and importance of reporting the development or worsening of symptoms should they occur. Patient states she did have a suicidal attempt in 2010 and was admitted to [facility]. She states she last had suicidal thoughts about 5 years ago. TKRN History of alcohol abuse 04/18/201206/2023 Overview: 04/18/2012Patient states before she found out she was she consumed about 10 beers every other day. She denies any alcohol use since finding out she was . Discussed risks of alcohol consumption during . Patient denies any other drug use. Family history of congenital heart defect 04/18/2012 01/01/2023 Overview: 04/18/2012Father of the baby's uncle born with cerebral palsy and a heart defect. Surgical correction was done. His uncle at age 11. Depression 05/26/2011 09/18/2019 Telangiectasia 01/27/2010 09/18/2019 Rosacea 01/27/2010 09/18/2019 Other acne 01/27/2010 09/18/2019 documented as of this encounter (statuses as of 06/06/2023) [facility]04-19-2023 History of Past illness Narrative* Problem Noted Date Diagnosed Date Resolved Date Abnormal glucose complicating 11/08/2022 01/01/2023 Anemia during in third trimester 11/08/2022 01/01/2023 Diet controlled gestational diabetes mellitus (GDM) in second trimester 11/08/2022 01/01/2023 Overview: 11/08/22- 2 levels out of 3 elevated. Supplies and referrals ordered. Sulma Bartholomew APRN.JULISSA Positive GBS test 11/06/2022 01/01/2023 Elevated glucose 11/06/2022 01/01/2023 Overview: 11/06/22- 1 hour elevated- 3 hour ordered. Sulma Bartholomew APRN.JULISSA Anemia 11/06/2022 01/01/2023 Overview: 11/06/22- iron studies ordered. Start oral iron. Repeat cbc 4 weeks. Sulma Bartholomew APRN.CNM Needle stick, hypodermic, ac cidental, initial encounter 08/14/2022 01/01/2023 Overview: On 08/12/22. See ID consult note from 08/14/22. SW Spotting in early 04/13/2022 01/01/2023 Overview: 04/13/2022atient was seen in the [place] ER for spotting on April [address] Briones for follow-up and serum quantitative hCGs were done. Patient denies any bleeding since then.TKRN Engages in vaping 04/13/2022 01/01/2023 Overview: 04/13/2022 Patient states she has been vaping nicotine for the past 5 years. She recently saw her PCP Dr. Reeves and has tried using nicotine patches. I have advised her of the [place] tobacco quit line and [facility] smoking cessation program. I have discussed the risks of vaping during and advised patient to continue trying to quit.TKRN History of macrosomia in inf ant in prior , currently 04/13/2022 01/01/2023 Overview: 04/13/2022 Patient's previous child weight was 9 pounds. TKRN Patient request for diagnostic testing 04/13/2022 01/01/2023 Overview: 04/13/2022atient desires aneuploidy screening. I have given her contact information for [employer] to check on insurance coverage. Patient considering horizon screening testing. Contact information for the [employer] rep given to patient to check on insurance coverage.Marlon Cortez RN HSIL (high grade squamous in traepithelial lesion) on Pap smear of cervix 01/10/2022 3 Overview: 04/26/22- HSIL on pathology - repeat colposcopy post . Sulma Bartholomew APRN.CNM 01/10/22- Colposcopy ordered. Sulma Bartholomew APRN.CNM Urinary incontinence 04/27/2020 020 ASCUS with positive high risk HPV cervical 09/26/2019 01/01/2023 Overview: 09/26/19 Colposcopy ordered. Kylee Gil APRN.[employer] Vapes nicotine containing substance 09/07/2015 01/01/2023 Overview: Started at age 14 up to 2 PPD. Quit 06/2015 Last Assessment & Plan: Assessment: Patient very interested in cessation PLAN: Nicotine patches- will try to decrease nicotine level on patches. Uncomplicated asthma 09/07/2015 020 Overview: 04/18/2012Patient has a history of asthma. She uses an albuterol inhaler when necessary. Family history of leukemia 02/04/2015 0 01/01/2023 Routine gynecological examination 12/09/2014 09/18/2019 Overview: [facility]. Chlamydia infection 09/23/2013 09/18/19 20 with adoption planned 04/22/2012 10/08/2012 Tobacco use in 04/18/2012 Overview: 04/18/2012Pt smokes one to 2 cigarettes a day, down from one half pack per day. Discussed risks of smoking during . Advised pt to quit. Last Assessment & Plan: 07/18/12: Pt is no longer smoking; states she quit about 2weeks ago. Rosario Lam NP History of depression 04/18/20122022 Overview: 2Pt has a history of anxiety/depression diagnosed in 2010. She is currently taking Prozac prescribed by Dr. Reeves. Patient states that she did have depression. Discussed increased risks of depression during and and importance of reporting the development or worsening of symptoms should they occur. Patient states she did have a suicidal attempt in 2010 and was admitted to [facility]. She states she last had suicidal thoughts about 5 years ago. TKRN History of alcohol abuse 04/18/201206/2023 Overview: 04/18/2012Patient states before she found out she was she consumed about 10 beers every other day. She denies any alcohol use since finding out she was . Discussed risks of alcohol consumption during . Patient denies any other drug use. Family history of congenital heart defect 04/18/2012 01/01/2023 Overview: 04/18/2012Father of the baby's uncle born with cerebral palsy and a heart defect. Surgical correction was done. His uncle at age 11. Depression 05/26/2011 09/18/2019 Telangiectasia 01/27/2010 09/18/2019 Rosacea 01/27/2010 09/18/2019 Other acne 01/27/2010 09/18/2019 documented as of this encounter (statuses as of 06/10/2023) [facility]04-19-2023 History of Past illness Narrative* Problem Noted Date Diagnosed Date Resolved Date Abnormal glucose complicating 11/08/2022 01/01/2023 Anemia during in third trimester 11/08/2022 01/01/2023 Diet controlled gestational diabetes mellitus (GDM) in second trimester 11/08/2022 01/01/2023 Overview: 11/08/22- 2 levels out of 3 elevated. Supplies and referrals ordered. Sulma Bartholomew APRN.CNM Positive GBS test 11/06/2022 01/01/2023 Elevated glucose 11/06/2022 01/01/2023 Overview: 11/06/22- 1 hour elevated- 3 hour ordered. Sulma Bartholomew APRN.CNM Anemia 11/06/2022 01/01/2023 Overview: 11/06/22- iron studies ordered. Start oral iron. Repeat cbc 4 weeks. Sulma Bartholomew APRN.CNM Needle stick, hypodermic, ac cidental, initial encounter 08/14/2022 01/01/2023 Overview: On 08/12/22. See ID consult note from 08/14/22. SW Spotting in early 04/13/2022 01/01/2023 Overview: 04/13/2022atient was seen in the [place] ER for spotting on April [address] Briones for follow-up and serum quantitative hCGs were done. Patient denies any bleeding since then.TKRN Engages in vaping 04/13/2022 01/01/2023 Overview: 04/13/2022 Patient states she has been vaping nicotine for the past 5 years. She recently saw her PCP Dr. Reeves and has tried using nicotine patches. I have advised her of the [place] tobacco quit line and [facility] smoking cessation program. I have discussed the risks of vaping during and advised patient to continue trying to quit.TKRN History of macrosomia in inf ant in prior , currently 04/13/2022 01/01/2023 Overview: 04/13/2022 Patient's previous child weight was 9 pounds. TKRN Patient request for diagnostic testing 04/13/2022 01/01/2023 Overview: 04/13/2022atient desires aneuploidy screening. I have given her contact information for [employer] to check on insurance coverage. Patient considering horizon screening testing. Contact information for the [employer] rep given to patient to check on insurance coverage.Marlon Cortez RN HSIL (high grade squamous in traepithelial lesion) on Pap smear of cervix 01/10/2022 Overview: 04/26/22- HSIL on pathology - repeat colposcopy post . Sulma Bartholomew APRN.CNM 01/10/22- Colposcopy ordered. Sulma Bartholomew APRN.CNM Urinary incontinence 04/27/2020 020 ASCUS with positive high risk HPV cervical 09/26/2019 01/01/2023 Overview: 09/26/19 Colposcopy ordered. Kylee Gil APRN.[employer] Vapes nicotine containing substance 09/07/2015 01/01/2023 Overview: Started at age 14 up to 2 PPD. Quit 06/2015 Last Assessment & Plan: Assessment: Patient very interested in cessation PLAN: Nicotine patches- will try to decrease nicotine level on patches. Uncomplicated asthma 09/07/2015 020 Overview: 04/18/2012Patient has a history of asthma. She uses an albuterol inhaler when necessary. Family history of leukemia 02/04/2015 0 01/01/2023 Routine gynecological examination 12/09/2014 09/18/2019 Overview: [facility]. Chlamydia infection 09/23/2013 09/18/19 18 with adoption planned 04/22/2012 10/08/2012 Tobacco use in 04/18/2012 Overview: 04/18/2012Pt smokes one to 2 cigarettes a day, down from one half pack per day. Discussed risks of smoking during . Advised pt to quit. Last Assessment & Plan: 07/18/12: Pt is no longer smoking; states she quit about 2weeks ago. Rosario Lam NP History of depression 04/18/20122022 Overview: 2Pt has a history of anxiety/depression diagnosed in 2010. She is currently taking Prozac prescribed by Dr. Reeves. Patient states that she did have depression. Discussed increased risks of depression during and and importance of reporting the development or worsening of symptoms should they occur. Patient states she did have a suicidal attempt in 2010 and was admitted to [facility]. She states she last had suicidal thoughts about 5 years ago. TKRN History of alcohol abuse 04/18/201206/2023 Overview: 04/18/2012Patient states before she found out she was she consumed about 10 beers every other day. She denies any alcohol use since finding out she was . Discussed risks of alcohol consumption during . Patient denies any other drug use. Family history of congenital heart defect 04/18/2012 01/01/2023 Overview: 04/18/2012Father of the baby's uncle born with cerebral palsy and a heart defect. Surgical correction was done. His uncle at age 11. Depression 05/26/2011 09/18/2019 Telangiectasia 01/27/2010 09/18/2019 Rosacea 01/27/2010 09/18/2019 Other acne 01/27/2010 09/18/2019 documented as of this encounter (statuses as of 06/16/2023) [facility]04-19-2023 History of Past illness Narrative* Problem Noted Date Diagnosed Date Resolved Date Abnormal glucose complicating 11/08/2022 01/01/2023 Anemia during in third trimester 11/08/2022 01/01/2023 Diet controlled gestational diabetes mellitus (GDM) in second trimester 11/08/2022 01/01/2023 Overview: 11/08/22- 2 levels out of 3 elevated. Supplies and referrals ordered. Sulma Bartholomew APRN.CNM Positive GBS test 11/06/2022 01/01/2023 Elevated glucose 11/06/2022 01/01/2023 Overview: 11/06/22- 1 hour elevated- 3 hour ordered. Sulma Bartholomew APRN.CNM Anemia 11/06/2022 01/01/2023 Overview: 11/06/22- iron studies ordered. Start oral iron. Repeat cbc 4 weeks. Sulma Bartholomew APRN.CNM Needle stick, hypodermic, ac cidental, initial encounter 08/14/2022 01/01/2023 Overview: On 08/12/22. See ID consult note from 08/14/22. SW Spotting in early 04/13/2022 01/01/2023 Overview: 04/13/2022atient was seen in the [place] ER for spotting on April [address] Briones for follow-up and serum quantitative hCGs were done. Patient denies any bleeding since then.TKRN Engages in vaping 04/13/2022 01/01/2023 Overview: 04/13/2022 Patient states she has been vaping nicotine for the past 5 years. She recently saw her PCP Dr. Reeves and has tried using nicotine patches. I have advised her of the [place] tobacco quit line and [facility] smoking cessation program. I have discussed the risks of vaping during and advised patient to continue trying to quit.TKRN History of macrosomia in inf ant in prior , currently 04/13/2022 01/01/2023 Overview: 04/13/2022 Patient's previous child weight was 9 pounds. TKRN Patient request for diagnostic testing 04/13/2022 01/01/2023 Overview: 04/13/2022atient desires aneuploidy screening. I have given her contact information for [employer] to check on insurance coverage. Patient considering horizon screening testing. Contact information for the [employer] rep given to patient to check on insurance coverage.Marlon Cortez RN HSIL (high grade squamous in traepithelial lesion) on Pap smear of cervix 01/10/2022 Overview: 04/26/22- HSIL on pathology - repeat colposcopy post . Sulma Bartholomew APRN.CNM 01/10/22- Colposcopy ordered. Sulma Bartholomew APRN.CNM Urinary incontinence 04/27/2020 020 ASCUS with positive high risk HPV cervical 09/26/2019 01/01/2023 Overview: 09/26/19 Colposcopy ordered. Kylee Gil APRN.[employer] Vapes nicotine containing substance 09/07/2015 01/01/2023 Overview: Started at age 14 up to 2 PPD. Quit 06/2015 Last Assessment & Plan: Assessment: Patient very interested in cessation PLAN: Nicotine patches- will try to decrease nicotine level on patches. Uncomplicated asthma 09/07/2015 020 Overview: 04/18/2012Patient has a history of asthma. She uses an albuterol inhaler when necessary. Family history of leukemia 02/04/2015 0 01/01/2023 Routine gynecological examination 12/09/2014 09/18/2019 Overview: [facility]. Chlamydia infection 09/23/2013 09/18/19 18 with adoption planned 04/22/2012 10/08/2012 Tobacco use in 04/18/2012 Overview: 04/18/2012Pt smokes one to 2 cigarettes a day, down from one half pack per day. Discussed risks of smoking during . Advised pt to quit. Last Assessment & Plan: 07/18/12: Pt is no longer smoking; states she quit about 2weeks ago. Rosario Lam NP History of depression 04/18/20122022 Overview: 2Pt has a history of anxiety/depression diagnosed in 2010. She is currently taking Prozac prescribed by Dr. Reeves. Patient states that she did have depression. Discussed increased risks of depression during and and importance of reporting the development or worsening of symptoms should they occur. Patient states she did have a suicidal attempt in 2010 and was admitted to [facility]. She states she last had suicidal thoughts about 5 years ago. TKRN History of alcohol abuse 04/18/201206/2023 Overview: 04/18/2012Patient states before she found out she was she consumed about 10 beers every other day. She denies any alcohol use since finding out she was . Discussed risks of alcohol consumption during . Patient denies any other drug use. Family history of congenital heart defect 04/18/2012 01/01/2023 Overview: 04/18/2012Father of the baby's uncle born with cerebral palsy and a heart defect. Surgical correction was done. His uncle at age 11. Depression 05/26/2011 09/18/2019 Telangiectasia 01/27/2010 09/18/2019 Rosacea 01/27/2010 09/18/2019 Other acne 01/27/2010 09/18/2019 documented as of this encounter (statuses as of 07/04/2023) [facility] History of Past illness Narrative* Problem Noted Date Diagnosed Date Resolved Date Abnormal glucose complicating 11/08/2022 01/01/2023 Anemia during in third trimester 11/08/2022 01/01/2023 Diet controlled gestational diabetes mellitus (GDM) in second trimester 11/08/2022 01/01/2023 Overview: 11/08/22- 2 levels out of 3 elevated. Supplies and referrals ordered. Sulma Bartholomew APRN.CNM Positive GBS test 11/06/2022 01/01/2023 Elevated glucose 11/06/2022 01/01/2023 Overview: 11/06/22- 1 hour elevated- 3 hour ordered. Sulma Bartholomew APRN.CNM Anemia 11/06/2022 01/01/2023 Overview: 11/06/22- iron studies ordered. Start oral iron. Repeat cbc 4 weeks. Sulma Bartholomew APRN.KRYSTYNAM Needle stick, hypodermic, ac cidental, initial encounter 08/14/2022 01/01/2023 Overview: On 08/12/22. See ID consult note from 08/14/22. SW Spotting in early 04/13/2022 01/01/2023 Overview: 04/13/2022atient was seen in the [place] ER for spotting on April [address] Briones for follow-up and serum quantitative hCGs were done. Patient denies any bleeding since then.TKRN Engages in vaping 04/13/2022 01/01/2023 Overview: 04/13/2022 Patient states she has been vaping nicotine for the past 5 years. She recently saw her PCP Dr. Reeves and has tried using nicotine patches. I have advised her of the [place] tobacco quit line and [facility] smoking cessation program. I have discussed the risks of vaping during and advised patient to continue trying to quit.TKRN History of macrosomia in inf ant in prior , currently 04/13/2022 01/01/2023 Overview: 04/13/2022 Patient's previous child weight was 9 pounds. TKRN Patient request for diagnostic testing 04/13/2022 01/01/2023 Overview: 04/13/2022atient desires aneuploidy screening. I have given her contact information for [employer] to check on insurance coverage. Patient considering horizon screening testing. Contact information for the [employer] rep given to patient to check on insurance coverage.Marlon Cortez RN HSIL (high grade squamous in traepithelial lesion) on Pap smear of cervix 01/10/2022 Overview: 04/26/22- HSIL on pathology - repeat colposcopy post . Sulma Bartholomew APRN.CNM 01/10/22- Colposcopy ordered. Sulma Bartholomew APRN.CNM Urinary incontinence 04/27/2020 020 ASCUS with positive high risk HPV cervical 09/26/2019 01/01/2023 Overview: 09/26/19 Colposcopy ordered. Kylee Gil APRN.ANISHA Vapes nicotine containing substance 09/07/2015 01/01/2023 Overview: Started at age 14 up to 2 PPD. Quit 06/2015 Last Assessment & Plan: Assessment: Patient very interested in cessation PLAN: Nicotine patches- will try to decrease nicotine level on patches. Uncomplicated asthma 09/07/2015 020 Overview: 04/18/2012Patient has a history of asthma. She uses an albuterol inhaler when necessary. Family history of leukemia 02/04/2015 0 01/01/2023 Routine gynecological examination 12/09/2014 09/18/2019 Overview: [facility]. Chlamydia infection 09/23/2013 09/18/19 20 with adoption planned 04/22/2012 10/08/2012 Tobacco use in 04/18/2012 Overview: 04/18/2012Pt smokes one to 2 cigarettes a day, down from one half pack per day. Discussed risks of smoking during . Advised pt to quit. Last Assessment & Plan: 07/18/12: Pt is no longer smoking; states she quit about 2weeks ago. Rosario Lam NP History of depression 04/18/20122022 Overview: 2Pt has a history of anxiety/depression diagnosed in 2010. She is currently taking Prozac prescribed by Dr. Reeves. Patient states that she did have depression. Discussed increased risks of depression during and and importance of reporting the development or worsening of symptoms should they occur. Patient states she did have a suicidal attempt in 2010 and was admitted to [facility]. She states she last had suicidal thoughts about 5 years ago. TKRN History of alcohol abuse 04/18/201206/2023 Overview: 04/18/2012Patient states before she found out she was she consumed about 10 beers every other day. She denies any alcohol use since finding out she was . Discussed risks of alcohol consumption during . Patient denies any other drug use. Family history of congenital heart defect 04/18/2012 01/01/2023 Overview: 04/18/2012Father of the baby's uncle born with cerebral palsy and a heart defect. Surgical correction was done. His uncle at age 11. Depression 05/26/2011 09/18/2019 Telangiectasia 01/27/2010 09/18/2019 Rosacea 01/27/2010 09/18/2019 Other acne 01/27/2010 09/18/2019 documented as of this encounter (statuses as of 07/05/2023) [facility] History of Past illness Narrative* Problem Noted Date Diagnosed Date Resolved Date Abnormal glucose complicating 11/08/2022 01/01/2023 Anemia during in third trimester 11/08/2022 01/01/2023 Diet controlled gestational diabetes mellitus (GDM) in second trimester 11/08/2022 01/01/2023 Overview: 11/08/22- 2 levels out of 3 elevated. Supplies and referrals ordered. Sulma Bartholomew APRN.CNM Positive GBS test 11/06/2022 01/01/2023 Elevated glucose 11/06/2022 01/01/2023 Overview: 11/06/22- 1 hour elevated- 3 hour ordered. Sulma Bartholomew APRN.CNM Anemia 11/06/2022 01/01/2023 Overview: 11/06/22- iron studies ordered. Start oral iron. Repeat cbc 4 weeks. Sulma Bartholomew APRN.CNM Needle stick, hypodermic, ac cidental, initial encounter 08/14/2022 01/01/2023 Overview: On 08/12/22. See ID consult note from 08/14/22. SW Spotting in early 04/13/2022 01/01/2023 Overview: 04/13/2022atient was seen in the [place] ER for spotting on April [address] Briones for follow-up and serum quantitative hCGs were done. Patient denies any bleeding since then.TKRN Engages in vaping 04/13/2022 01/01/2023 Overview: 04/13/2022 Patient states she has been vaping nicotine for the past 5 years. She recently saw her PCP Dr. Reeves and has tried using nicotine patches. I have advised her of the [place] tobacco quit line and [facility] smoking cessation program. I have discussed the risks of vaping during and advised patient to continue trying to quit.TKRN History of macrosomia in inf ant in prior , currently 04/13/2022 01/01/2023 Overview: 04/13/2022 Patient's previous child weight was 9 pounds. TKRN Patient request for diagnostic testing 04/13/2022 01/01/2023 Overview: 04/13/2022atient desires aneuploidy screening. I have given her contact information for [employer] to check on insurance coverage. Patient considering horizon screening testing. Contact information for the [employer] rep given to patient to check on insurance coverage.Marlon Cortez RN HSIL (high grade squamous in traepithelial lesion) on Pap smear of cervix 01/10/2022 Overview: 04/26/22- HSIL on pathology - repeat colposcopy post . Sulma Bartholomew APRN.CNM 01/10/22- Colposcopy ordered. Sulma Bartholomew APRN.CNM Urinary incontinence 04/27/2020 020 ASCUS with positive high risk HPV cervical 09/26/2019 01/01/2023 Overview: 09/26/19 Colposcopy ordered. Kylee Gil APRN.[employer] Vapes nicotine containing substance 09/07/2015 01/01/2023 Overview: Started at age 14 up to 2 PPD. Quit 06/2015 Last Assessment & Plan: Assessment: Patient very interested in cessation PLAN: Nicotine patches- will try to decrease nicotine level on patches. Uncomplicated asthma 09/07/2015 020 Overview: 04/18/2012Patient has a history of asthma. She uses an albuterol inhaler when necessary. Family history of leukemia 02/04/2015 0 01/01/2023 Routine gynecological examination 12/09/2014 09/18/2019 Overview: [facility]. Chlamydia infection 09/23/2013 09/18/19 20 with adoption planned 04/22/2012 10/08/2012 Tobacco use in 04/18/2012 Overview: 04/18/2012Pt smokes one to 2 cigarettes a day, down from one half pack per day. Discussed risks of smoking during . Advised pt to quit. Last Assessment & Plan: 07/18/12: Pt is no longer smoking; states she quit about 2weeks ago. Rosario Lam NP History of depression 04/18/20122022 Overview: 2Pt has a history of anxiety/depression diagnosed in 2010. She is currently taking Prozac prescribed by Dr. Reeves. Patient states that she did have depression. Discussed increased risks of depression during and and importance of reporting the development or worsening of symptoms should they occur. Patient states she did have a suicidal attempt in 2010 and was admitted to [facility]. She states she last had suicidal thoughts about 5 years ago. TKRN History of alcohol abuse 04/18/201206/2023 Overview: 04/18/2012Patient states before she found out she was she consumed about 10 beers every other day. She denies any alcohol use since finding out she was . Discussed risks of alcohol consumption during . Patient denies any other drug use. Family history of congenital heart defect 04/18/2012 01/01/2023 Overview: 04/18/2012Father of the baby's uncle born with cerebral palsy and a heart defect. Surgical correction was done. His uncle at age 11. Depression 05/26/2011 09/18/2019 Telangiectasia 01/27/2010 09/18/2019 Rosacea 01/27/2010 09/18/2019 Other acne 01/27/2010 09/18/2019 documented as of this encounter (statuses as of 07/06/2023) [facility] History of Past illness Narrative* Problem Noted Date Diagnosed Date Resolved Date Abnormal glucose complicating 11/08/2022 01/01/2023 Anemia during in third trimester 11/08/2022 01/01/2023 Diet controlled gestational diabetes mellitus (GDM) in second trimester 11/08/2022 01/01/2023 Overview: 11/08/22- 2 levels out of 3 elevated. Supplies and referrals ordered. Sulma Bartholomew APRN.JULISSA Positive GBS test 11/06/2022 01/01/2023 Elevated glucose 11/06/2022 01/01/2023 Overview: 11/06/22- 1 hour elevated- 3 hour ordered. Sulma Bartholomew APRN.CNM Anemia 11/06/2022 01/01/2023 Overview: 11/06/22- iron studies ordered. Start oral iron. Repeat cbc 4 weeks. Sulma Bartholomew APRN.CNM Needle stick, hypodermic, ac cidental, initial encounter 08/14/2022 01/01/2023 Overview: On 08/12/22. See ID consult note from 08/14/22. SW Spotting in early 04/13/2022 01/01/2023 Overview: 04/13/2022atient was seen in the [place] ER for spotting on April [address] Briones for follow-up and serum quantitative hCGs were done. Patient denies any bleeding since then.TKRN Engages in vaping 04/13/2022 01/01/2023 Overview: 04/13/2022 Patient states she has been vaping nicotine for the past 5 years. She recently saw her PCP Dr. Reeves and has tried using nicotine patches. I have advised her of the [place] tobacco quit line and [facility] smoking cessation program. I have discussed the risks of vaping during and advised patient to continue trying to quit.TKRN History of macrosomia in inf ant in prior , currently 04/13/2022 01/01/2023 Overview: 04/13/2022 Patient's previous child weight was 9 pounds. TKRN Patient request for diagnostic testing 04/13/2022 01/01/2023 Overview: 04/13/2022atient desires aneuploidy screening. I have given her contact information for [employer] to check on insurance coverage. Patient considering horizon screening testing. Contact information for the [employer] rep given to patient to check on insurance coverage.Marlon Cortez RN HSIL (high grade squamous in traepithelial lesion) on Pap smear of cervix 01/10/2022 Overview: 04/26/22- HSIL on pathology - repeat colposcopy post . Sulma Bartholomew APRN.CNM 01/10/22- Colposcopy ordered. Sulma Bartholomew APRN.JULISSA Urinary incontinence 04/27/2020 020 ASCUS with positive high risk HPV cervical 09/26/2019 01/01/2023 Overview: 09/26/19 Colposcopy ordered. Kylee Gil APRN.[employer] Vapes nicotine containing substance 09/07/2015 01/01/2023 Overview: Started at age 14 up to 2 PPD. Quit 06/2015 Last Assessment & Plan: Assessment: Patient very interested in cessation PLAN: Nicotine patches- will try to decrease nicotine level on patches. Uncomplicated asthma 09/07/2015 020 Overview: 04/18/2012Patient has a history of asthma. She uses an albuterol inhaler when necessary. Family history of leukemia 02/04/2015 0 01/01/2023 Routine gynecological examination 12/09/2014 09/18/2019 Overview: [facility]. Chlamydia infection 09/23/2013 09/18/19 20 with adoption planned 04/22/2012 10/08/2012 Tobacco use in 04/18/2012 Overview: 04/18/2012Pt smokes one to 2 cigarettes a day, down from one half pack per day. Discussed risks of smoking during . Advised pt to quit. Last Assessment & Plan: 07/18/12: Pt is no longer smoking; states she quit about 2weeks ago. Rosario Lam NP History of depression 04/18/20122022 Overview: 2Pt has a history of anxiety/depression diagnosed in 2010. She is currently taking Prozac prescribed by Dr. Reeves. Patient states that she did have depression. Discussed increased risks of depression during and and importance of reporting the development or worsening of symptoms should they occur. Patient states she did have a suicidal attempt in 2010 and was admitted to [facility]. She states she last had suicidal thoughts about 5 years ago. TKRN History of alcohol abuse 04/18/201206/2023 Overview: 04/18/2012Patient states before she found out she was she consumed about 10 beers every other day. She denies any alcohol use since finding out she was . Discussed risks of alcohol consumption during . Patient denies any other drug use. Family history of congenital heart defect 04/18/2012 01/01/2023 Overview: 04/18/2012Father of the baby's uncle born with cerebral palsy and a heart defect. Surgical correction was done. His uncle at age 11. Depression 05/26/2011 09/18/2019 Telangiectasia 01/27/2010 09/18/2019 Rosacea 01/27/2010 09/18/2019 Other acne 01/27/2010 09/18/2019 documented as of this encounter (statuses as of 08/31/2023) [facility]04-19-2023 History of Past illness Narrative* Problem Noted Date Diagnosed Date Resolved Date Abnormal glucose complicating 11/08/2022 01/01/2023 Anemia during in third trimester 11/08/2022 01/01/2023 Diet controlled gestational diabetes mellitus (GDM) in second trimester 11/08/2022 01/01/2023 Overview: 11/08/22- 2 levels out of 3 elevated. Supplies and referrals ordered. Sulma Bartholomew APRN.JULISSA Positive GBS test 11/06/2022 01/01/2023 Elevated glucose 11/06/2022 01/01/2023 Overview: 11/06/22- 1 hour elevated- 3 hour ordered. Sulma Bartholomew APRN.CNM Anemia 11/06/2022 01/01/2023 Overview: 11/06/22- iron studies ordered. Start oral iron. Repeat cbc 4 weeks. Sulma Bartholomew APRN.CNM Needle stick, hypodermic, ac cidental, initial encounter 08/14/2022 01/01/2023 Overview: On 08/12/22. See ID consult note from 08/14/22. SW Spotting in early 04/13/2022 01/01/2023 Overview: 04/13/2022atient was seen in the [place] ER for spotting on April [address] Briones for follow-up and serum quantitative hCGs were done. Patient denies any bleeding since then.TKRN Engages in vaping 04/13/2022 01/01/2023 Overview: 04/13/2022 Patient states she has been vaping nicotine for the past 5 years. She recently saw her PCP Dr. Reeves and has tried using nicotine patches. I have advised her of the [place] tobacco quit line and [facility] smoking cessation program. I have discussed the risks of vaping during and advised patient to continue trying to quit.TKRN History of macrosomia in inf ant in prior , currently 04/13/2022 01/01/2023 Overview: 04/13/2022 Patient's previous child weight was 9 pounds. TKRN Patient request for diagnostic testing 04/13/2022 01/01/2023 Overview: 04/13/2022atient desires aneuploidy screening. I have given her contact information for [employer] to check on insurance coverage. Patient considering horizon screening testing. Contact information for the [employer] rep given to patient to check on insurance coverage.Marlon Cortez RN HSIL (high grade squamous in traepithelial lesion) on Pap smear of cervix 01/10/2022 3 Overview: 04/26/22- HSIL on pathology - repeat colposcopy post . Sulma Bartholomew APRN.CNM 01/10/22- Colposcopy ordered. Sulma Bartholomew APRN.JULISSA Urinary incontinence 04/27/2020 020 ASCUS with positive high risk HPV cervical 09/26/2019 01/01/2023 Overview: 09/26/19 Colposcopy ordered. Kylee Gil APRN.[employer] Vapes nicotine containing substance 09/07/2015 01/01/2023 Overview: Started at age 14 up to 2 PPD. Quit 06/2015 Last Assessment & Plan: Assessment: Patient very interested in cessation PLAN: Nicotine patches- will try to decrease nicotine level on patches. Uncomplicated asthma 09/07/2015 020 Overview: 04/18/2012Patient has a history of asthma. She uses an albuterol inhaler when necessary. Family history of leukemia 02/04/2015 0 01/01/2023 Routine gynecological examination 12/09/2014 09/18/2019 Overview: [facility]. Chlamydia infection 09/23/2013 09/18/19 18 with adoption planned 04/22/2012 10/08/2012 Tobacco use in 04/18/2012 Overview: 04/18/2012Pt smokes one to 2 cigarettes a day, down from one half pack per day. Discussed risks of smoking during . Advised pt to quit. Last Assessment & Plan: 07/18/12: Pt is no longer smoking; states she quit about 2weeks ago. Rosario Lam NP History of depression 04/18/20122022 Overview: 2Pt has a history of anxiety/depression diagnosed in 2010. She is currently taking Prozac prescribed by Dr. Reeves. Patient states that she did have depression. Discussed increased risks of depression during and and importance of reporting the development or worsening of symptoms should they occur. Patient states she did have a suicidal attempt in 2010 and was admitted to [facility]. She states she last had suicidal thoughts about 5 years ago. TKRN History of alcohol abuse 04/18/201206/2023 Overview: 04/18/2012Patient states before she found out she was she consumed about 10 beers every other day. She denies any alcohol use since finding out she was . Discussed risks of alcohol consumption during . Patient denies any other drug use. Family history of congenital heart defect 04/18/2012 01/01/2023 Overview: 04/18/2012Father of the baby's uncle born with cerebral palsy and a heart defect. Surgical correction was done. His uncle at age 11. Depression 05/26/2011 09/18/2019 Telangiectasia 01/27/2010 09/18/2019 Rosacea 01/27/2010 09/18/2019 Other acne 01/27/2010 09/18/2019 documented as of this encounter (statuses as of 09/03/2023) [facility]04-19-2023 History of Past illness Narrative* Problem Noted Date Diagnosed Date Resolved Date Abnormal glucose complicating 11/08/2022 01/01/2023 Anemia during in third trimester 11/08/2022 01/01/2023 Diet controlled gestational diabetes mellitus (GDM) in second trimester 11/08/2022 01/01/2023 Overview: 11/08/22- 2 levels out of 3 elevated. Supplies and referrals ordered. Sulma Bartholomew APRN.CNM Positive GBS test 11/06/2022 01/01/2023 Elevated glucose 11/06/2022 01/01/2023 Overview: 11/06/22- 1 hour elevated- 3 hour ordered. Sulma Bartholomew APRN.CNM Anemia 11/06/2022 01/01/2023 Overview: 11/06/22- iron studies ordered. Start oral iron. Repeat cbc 4 weeks. Sulma Bartholomew APRN.CNM Needle stick, hypodermic, ac cidental, initial encounter 08/14/2022 01/01/2023 Overview: On 08/12/22. See ID consult note from 08/14/22. SW Spotting in early 04/13/2022 01/01/2023 Overview: 04/13/2022atient was seen in the [place] ER for spotting on April [address] Briones for follow-up and serum quantitative hCGs were done. Patient denies any bleeding since then.TKRN Engages in vaping 04/13/2022 01/01/2023 Overview: 04/13/2022 Patient states she has been vaping nicotine for the past 5 years. She recently saw her PCP Dr. Reeves and has tried using nicotine patches. I have advised her of the [place] tobacco quit line and [facility] smoking cessation program. I have discussed the risks of vaping during and advised patient to continue trying to quit.TKRN History of macrosomia in inf ant in prior , currently 04/13/2022 01/01/2023 Overview: 04/13/2022 Patient's previous child weight was 9 pounds. TKRN Patient request for diagnostic testing 04/13/2022 01/01/2023 Overview: 04/13/2022atient desires aneuploidy screening. I have given her contact information for [employer] to check on insurance coverage. Patient considering horizon screening testing. Contact information for the [employer] rep given to patient to check on insurance coverage.Marlon Cortez RN HSIL (high grade squamous in traepithelial lesion) on Pap smear of cervix 01/10/2022 3 Overview: 04/26/22- HSIL on pathology - repeat colposcopy post . Sulma Bartholomew APRN.CNM 01/10/22- Colposcopy ordered. Sulma Bartholomew APRN.JULISSA Urinary incontinence 04/27/2020 020 ASCUS with positive high risk HPV cervical 09/26/2019 01/01/2023 Overview: 09/26/19 Colposcopy ordered. Kylee Gil APRN.[employer] Vapes nicotine containing substance 09/07/2015 01/01/2023 Overview: Started at age 14 up to 2 PPD. Quit 06/2015 Last Assessment & Plan: Assessment: Patient very interested in cessation PLAN: Nicotine patches- will try to decrease nicotine level on patches. Uncomplicated asthma 09/07/2015 020 Overview: 04/18/2012Patient has a history of asthma. She uses an albuterol inhaler when necessary. Family history of leukemia 02/04/2015 0 01/01/2023 Routine gynecological examination 12/09/2014 09/18/2019 Overview: [facility]. Chlamydia infection 09/23/2013 09/18/19 18 with adoption planned 04/22/2012 10/08/2012 Tobacco use in 04/18/2012 Overview: 04/18/2012Pt smokes one to 2 cigarettes a day, down from one half pack per day. Discussed risks of smoking during . Advised pt to quit. Last Assessment & Plan: 07/18/12: Pt is no longer smoking; states she quit about 2weeks ago. Rosario Lam NP History of depression 04/18/20122022 Overview: 2Pt has a history of anxiety/depression diagnosed in 2010. She is currently taking Prozac prescribed by Dr. Reeves. Patient states that she did have depression. Discussed increased risks of depression during and and importance of reporting the development or worsening of symptoms should they occur. Patient states she did have a suicidal attempt in 2010 and was admitted to [facility]. She states she last had suicidal thoughts about 5 years ago. TKRN History of alcohol abuse 04/18/201206/2023 Overview: 04/18/2012Patient states before she found out she was she consumed about 10 beers every other day. She denies any alcohol use since finding out she was . Discussed risks of alcohol consumption during . Patient denies any other drug use. Family history of congenital heart defect 04/18/2012 01/01/2023 Overview: 04/18/2012Father of the baby's uncle born with cerebral palsy and a heart defect. Surgical correction was done. His uncle at age 11. Depression 05/26/2011 09/18/2019 Telangiectasia 01/27/2010 09/18/2019 Rosacea 01/27/2010 09/18/2019 Other acne 01/27/2010 09/18/2019 documented as of this encounter (statuses as of 09/04/2023) [facility]04-19-2023 History of Past illness Narrative* Problem Noted Date Diagnosed Date Resolved Date Abnormal glucose complicating 11/08/2022 01/01/2023 Anemia during in third trimester 11/08/2022 01/01/2023 Diet controlled gestational diabetes mellitus (GDM) in second trimester 11/08/2022 01/01/2023 Overview: 11/08/22- 2 levels out of 3 elevated. Supplies and referrals ordered. Sulma Bartholomew APRN.CNM Positive GBS test 11/06/2022 01/01/2023 Elevated glucose 11/06/2022 01/01/2023 Overview: 11/06/22- 1 hour elevated- 3 hour ordered. Sulma Bartholomew APRN.CNM Anemia 11/06/2022 01/01/2023 Overview: 11/06/22- iron studies ordered. Start oral iron. Repeat cbc 4 weeks. Sulma Bartholomew APRN.CNM Needle stick, hypodermic, ac cidental, initial encounter 08/14/2022 01/01/2023 Overview: On 08/12/22. See ID consult note from 08/14/22. SW Spotting in early 04/13/2022 01/01/2023 Overview: 04/13/2022atient was seen in the [place] ER for spotting on April [address] Briones for follow-up and serum quantitative hCGs were done. Patient denies any bleeding since then.TKRN Engages in vaping 04/13/2022 01/01/2023 Overview: 04/13/2022 Patient states she has been vaping nicotine for the past 5 years. She recently saw her PCP Dr. Reeves and has tried using nicotine patches. I have advised her of the [place] tobacco quit line and [facility] smoking cessation program. I have discussed the risks of vaping during and advised patient to continue trying to quit.TKRN History of macrosomia in inf ant in prior , currently 04/13/2022 01/01/2023 Overview: 04/13/2022 Patient's previous child weight was 9 pounds. TKRN Patient request for diagnostic testing 04/13/2022 01/01/2023 Overview: 2Patient desires aneuploidy screening. I have given her contact information for [employer] to check on insurance coverage. Patient considering horizon screening testing. Contact information for the [employer] rep given to patient to check on insurance coverage.Marlon Cortez RN HSIL (high grade squamous in traepithelial lesion) on Pap smear of cervix 01/10/2022 3 Overview: 04/26/22- HSIL on pathology - repeat colposcopy post . Sulma Bartholomew APRN.CNM 01/10/22- Colposcopy ordered. Sulma Bartholomew APRN.CNM Urinary incontinence 04/27/2020 020 ASCUS with positive high risk HPV cervical 09/26/2019 01/01/2023 Overview: 09/26/19 Colposcopy ordered. Kylee Gil APRN.ANISHA Vapes nicotine containing substance 09/07/2015 01/01/2023 Overview: Started at age 14 up to 2 PPD. Quit 06/2015 Last Assessment & Plan: Assessment: Patient very interested in cessation PLAN: Nicotine patches- will try to decrease nicotine level on patches. Uncomplicated asthma 09/07/2015 020 Overview: 04/18/2012Patient has a history of asthma. She uses an albuterol inhaler when necessary. Family history of leukemia 02/04/2015 0 01/01/2023 Routine gynecological examination 12/09/2014 09/18/2019 Overview: [facility]. Chlamydia infection 09/23/2013 09/18/19 18 with adoption planned 04/22/2012 10/08/2012 Tobacco use in 04/18/2012 Overview: 04/18/2012Pt smokes one to 2 cigarettes a day, down from one half pack per day. Discussed risks of smoking during . Advised pt to quit. Last Assessment & Plan: 07/18/12: Pt is no longer smoking; states she quit about 2weeks ago. Rosario Lam NP History of depression 04/18/20122022 Overview: 2Pt has a history of anxiety/depression diagnosed in 2010. She is currently taking Prozac prescribed by Dr. Reeves. Patient states that she did have depression. Discussed increased risks of depression during and and importance of reporting the development or worsening of symptoms should they occur. Patient states she did have a suicidal attempt in 2010 and was admitted to [facility]. She states she last had suicidal thoughts about 5 years ago. TKRN History of alcohol abuse 04/18/201206/2023 Overview: 04/18/2012Patient states before she found out she was she consumed about 10 beers every other day. She denies any alcohol use since finding out she was . Discussed risks of alcohol consumption during . Patient denies any other drug use. Family history of congenital heart defect 04/18/2012 01/01/2023 Overview: 04/18/2012Father of the baby's uncle born with cerebral palsy and a heart defect. Surgical correction was done. His uncle at age 11. Depression 05/26/2011 09/18/2019 Telangiectasia 01/27/2010 09/18/2019 Rosacea 01/27/2010 09/18/2019 Other acne 01/27/2010 09/18/2019 documented as of this encounter (statuses as of 09/13/2023) [facility] History of Past illness Narrative* Problem Noted Date Diagnosed Date Resolved Date Abnormal glucose complicating 11/08/2022 01/01/2023 Anemia during in third trimester 11/08/2022 01/01/2023 Diet controlled gestational diabetes mellitus (GDM) in second trimester 11/08/2022 01/01/2023 Overview: 11/08/22- 2 levels out of 3 elevated. Supplies and referrals ordered. Sulma Bartholomew APRN.CNM Positive GBS test 11/06/2022 01/01/2023 Elevated glucose 11/06/2022 01/01/2023 Overview: 11/06/22- 1 hour elevated- 3 hour ordered. Sulma Bartholomew APRN.CNM Anemia 11/06/2022 01/01/2023 Overview: 11/06/22- iron studies ordered. Start oral iron. Repeat cbc 4 weeks. Sulma Bartholomew APRN.CNM Needle stick, hypodermic, ac cidental, initial encounter 08/14/2022 01/01/2023 Overview: On 08/12/22. See ID consult note from 08/14/22. SW Spotting in early 04/13/2022 01/01/2023 Overview: 04/13/2022atient was seen in the [place] ER for spotting on April [address] Briones for follow-up and serum quantitative hCGs were done. Patient denies any bleeding since then.TKRN Engages in vaping 04/13/2022 01/01/2023 Overview: 04/13/2022 Patient states she has been vaping nicotine for the past 5 years. She recently saw her PCP Dr. Reeves and has tried using nicotine patches. I have advised her of the [place] tobacco quit line and [facility] smoking cessation program. I have discussed the risks of vaping during and advised patient to continue trying to quit.TKRN History of macrosomia in inf ant in prior , currently 04/13/2022 01/01/2023 Overview: 04/13/2022 Patient's previous child weight was 9 pounds. TKRN Patient request for diagnostic testing 04/13/2022 01/01/2023 Overview: 04/13/2022atient desires aneuploidy screening. I have given her contact information for [employer] to check on insurance coverage. Patient considering horizon screening testing. Contact information for the [employer] rep given to patient to check on insurance coverage.Marlon Cortez RN HSIL (high grade squamous in traepithelial lesion) on Pap smear of cervix 01/10/2022 Overview: 04/26/22- HSIL on pathology - repeat colposcopy post . Sulma Bartholomew APRN.KRYSTYNAM 01/10/22- Colposcopy ordered. Sulma Bartholomew APRN.CNM Urinary incontinence 04/27/2020 020 ASCUS with positive high risk HPV cervical 09/26/2019 01/01/2023 Overview: 09/26/19 Colposcopy ordered. Kylee Gil APRN.[employer] Vapes nicotine containing substance 09/07/2015 01/01/2023 Overview: Started at age 14 up to 2 PPD. Quit 06/2015 Last Assessment & Plan: Assessment: Patient very interested in cessation PLAN: Nicotine patches- will try to decrease nicotine level on patches. Uncomplicated asthma 09/07/2015 020 Overview: 04/18/2012Patient has a history of asthma. She uses an albuterol inhaler when necessary. Family history of leukemia 02/04/2015 0 01/01/2023 Routine gynecological examination 12/09/2014 09/18/2019 Overview: [facility]. Chlamydia infection 09/23/2013 09/18/19 20 with adoption planned 04/22/2012 10/08/2012 Tobacco use in 04/18/2012 Overview: 04/18/2012Pt smokes one to 2 cigarettes a day, down from one half pack per day. Discussed risks of smoking during . Advised pt to quit. Last Assessment & Plan: 07/18/12: Pt is no longer smoking; states she quit about 2weeks ago. Rosario Lam NP History of depression 04/18/20122022 Overview: 2Pt has a history of anxiety/depression diagnosed in 2010. She is currently taking Prozac prescribed by Dr. Reeves. Patient states that she did have depression. Discussed increased risks of depression during and and importance of reporting the development or worsening of symptoms should they occur. Patient states she did have a suicidal attempt in 2010 and was admitted to [facility]. She states she last had suicidal thoughts about 5 years ago. TKRN History of alcohol abuse 04/18/201206/2023 Overview: 04/18/2012Patient states before she found out she was she consumed about 10 beers every other day. She denies any alcohol use since finding out she was . Discussed risks of alcohol consumption during . Patient denies any other drug use. Family history of congenital heart defect 04/18/2012 01/01/2023 Overview: 04/18/2012Father of the baby's uncle born with cerebral palsy and a heart defect. Surgical correction was done. His uncle at age 11. Depression 05/26/2011 09/18/2019 Telangiectasia 01/27/2010 09/18/2019 Rosacea 01/27/2010 09/18/2019 Other acne 01/27/2010 09/18/2019 documented as of this encounter (statuses as of 09/14/2023) [facility] History of Past illness Narrative* Problem Noted Date Diagnosed Date Resolved Date Abnormal glucose complicating 11/08/2022 01/01/2023 Anemia during in third trimester 11/08/2022 01/01/2023 Diet controlled gestational diabetes mellitus (GDM) in second trimester 11/08/2022 01/01/2023 Overview: 11/08/22- 2 levels out of 3 elevated. Supplies and referrals ordered. Sulma Bartholomew APRN.CNM Positive GBS test 11/06/2022 01/01/2023 Elevated glucose 11/06/2022 01/01/2023 Overview: 11/06/22- 1 hour elevated- 3 hour ordered. Sulma Bartholomew APRN.CNM Anemia 11/06/2022 01/01/2023 Overview: 11/06/22- iron studies ordered. Start oral iron. Repeat cbc 4 weeks. Sulma Bartholomew APRN.CNM Needle stick, hypodermic, ac cidental, initial encounter 08/14/2022 01/01/2023 Overview: On 08/12/22. See ID consult note from 08/14/22. SW Spotting in early 04/13/2022 01/01/2023 Overview: 04/13/2022atient was seen in the [place] ER for spotting on April [address] Briones for follow-up and serum quantitative hCGs were done. Patient denies any bleeding since then.TKRN Engages in vaping 04/13/2022 01/01/2023 Overview: 04/13/2022 Patient states she has been vaping nicotine for the past 5 years. She recently saw her PCP Dr. Reeves and has tried using nicotine patches. I have advised her of the [place] tobacco quit line and [facility] smoking cessation program. I have discussed the risks of vaping during and advised patient to continue trying to quit.TKRN History of macrosomia in inf ant in prior , currently 04/13/2022 01/01/2023 Overview: 04/13/2022 Patient's previous child weight was 9 pounds. TKRN Patient request for diagnostic testing 04/13/2022 01/01/2023 Overview: 04/13/2022atient desires aneuploidy screening. I have given her contact information for [employer] to check on insurance coverage. Patient considering horizon screening testing. Contact information for the [employer] rep given to patient to check on insurance coverage.Marlon Cortez RN HSIL (high grade squamous in traepithelial lesion) on Pap smear of cervix 01/10/2022 3 Overview: 04/26/22- HSIL on pathology - repeat colposcopy post . Sulma Bartholomew APRN.JULISSA 01/10/22- Colposcopy ordered. Sulma Bartholomew APRN.JULISSA Urinary incontinence 04/27/2020 020 ASCUS with positive high risk HPV cervical 09/26/2019 01/01/2023 Overview: 09/26/19 Colposcopy ordered. Kylee Gil APRN.[employer] Vapes nicotine containing substance 09/07/2015 01/01/2023 Overview: Started at age 14 up to 2 PPD. Quit 06/2015 Last Assessment & Plan: Assessment: Patient very interested in cessation PLAN: Nicotine patches- will try to decrease nicotine level on patches. Uncomplicated asthma 09/07/2015 020 Overview: 04/18/2012Patient has a history of asthma. She uses an albuterol inhaler when necessary. Family history of leukemia 02/04/2015 0 01/01/2023 Routine gynecological examination 12/09/2014 09/18/2019 Overview: [facility]. Chlamydia infection 09/23/2013 09/18/19 20 with adoption planned 04/22/2012 10/08/2012 Tobacco use in 04/18/2012 Overview: 04/18/2012Pt smokes one to 2 cigarettes a day, down from one half pack per day. Discussed risks of smoking during . Advised pt to quit. Last Assessment & Plan: 07/18/12: Pt is no longer smoking; states she quit about 2weeks ago. Rosario Lam NP History of depression 04/18/20122022 Overview: 2Pt has a history of anxiety/depression diagnosed in 2010. She is currently taking Prozac prescribed by Dr. Reeves. Patient states that she did have depression. Discussed increased risks of depression during and and importance of reporting the development or worsening of symptoms should they occur. Patient states she did have a suicidal attempt in 2010 and was admitted to [facility]. She states she last had suicidal thoughts about 5 years ago. TKRN History of alcohol abuse 04/18/201206/2023 Overview: 04/18/2012Patient states before she found out she was she consumed about 10 beers every other day. She denies any alcohol use since finding out she was . Discussed risks of alcohol consumption during . Patient denies any other drug use. Family history of congenital heart defect 04/18/2012 01/01/2023 Overview: 04/18/2012Father of the baby's uncle born with cerebral palsy and a heart defect. Surgical correction was done. His uncle at age 11. Depression 05/26/2011 09/18/2019 Telangiectasia 01/27/2010 09/18/2019 Rosacea 01/27/2010 09/18/2019 Other acne 01/27/2010 09/18/2019 documented as of this encounter (statuses as of 09/21/2023) [facility]04-19-2023 History of Past illness Narrative* Problem Noted Date Diagnosed Date Resolved Date Abnormal glucose complicating 11/08/2022 01/01/2023 Anemia during in third trimester 11/08/2022 01/01/2023 Diet controlled gestational diabetes mellitus (GDM) in second trimester 11/08/2022 01/01/2023 Overview: 11/08/22- 2 levels out of 3 elevated. Supplies and referrals ordered. Sulma Bartholomew APRN.CNM Positive GBS test 11/06/2022 01/01/2023 Elevated glucose 11/06/2022 01/01/2023 Overview: 11/06/22- 1 hour elevated- 3 hour ordered. Sulma Bartholomew APRN.CNM Anemia 11/06/2022 01/01/2023 Overview: 11/06/22- iron studies ordered. Start oral iron. Repeat cbc 4 weeks. Sulma Bartholomew APRN.CNM Needle stick, hypodermic, ac cidental, initial encounter 08/14/2022 01/01/2023 Overview: On 08/12/22. See ID consult note from 08/14/22. SW Spotting in early 04/13/2022 01/01/2023 Overview: 04/13/2022atient was seen in the [place] ER for spotting on April [address] Briones for follow-up and serum quantitative hCGs were done. Patient denies any bleeding since then.TKRN Engages in vaping 04/13/2022 01/01/2023 Overview: 04/13/2022 Patient states she has been vaping nicotine for the past 5 years. She recently saw her PCP Dr. Reeves and has tried using nicotine patches. I have advised her of the [place] tobacco quit line and [facility] smoking cessation program. I have discussed the risks of vaping during and advised patient to continue trying to quit.TKRN History of macrosomia in inf ant in prior , currently 04/13/2022 01/01/2023 Overview: 04/13/2022 Patient's previous child weight was 9 pounds. TKRN Patient request for diagnostic testing 04/13/2022 01/01/2023 Overview: 04/13/2022atient desires aneuploidy screening. I have given her contact information for [employer] to check on insurance coverage. Patient considering horizon screening testing. Contact information for the [employer] rep given to patient to check on insurance coverage.Marlon Cortez RN HSIL (high grade squamous in traepithelial lesion) on Pap smear of cervix 01/10/2022 3 Overview: 04/26/22- HSIL on pathology - repeat colposcopy post . Sulma Bartholomew APRN.CNM 01/10/22- Colposcopy ordered. Sulma Bartholomew APRN.CNCorie Urinary incontinence 04/27/2020 020 ASCUS with positive high risk HPV cervical 09/26/2019 01/01/2023 Overview: 09/26/19 Colposcopy ordered. Kylee Gil APRN.[employer] Vapes nicotine containing substance 09/07/2015 01/01/2023 Overview: Started at age 14 up to 2 PPD. Quit 06/2015 Last Assessment & Plan: Assessment: Patient very interested in cessation PLAN: Nicotine patches- will try to decrease nicotine level on patches. Uncomplicated asthma 09/07/2015 020 Overview: 04/18/2012Patient has a history of asthma. She uses an albuterol inhaler when necessary. Family history of leukemia 02/04/2015 0 01/01/2023 Routine gynecological examination 12/09/2014 09/18/2019 Overview: [facility]. Chlamydia infection 09/23/2013 09/18/19 18 with adoption planned 04/22/2012 10/08/2012 Tobacco use in 04/18/2012 Overview: 04/18/2012Pt smokes one to 2 cigarettes a day, down from one half pack per day. Discussed risks of smoking during . Advised pt to quit. Last Assessment & Plan: 07/18/12: Pt is no longer smoking; states she quit about 2weeks ago. Rosario Lam NP History of depression 04/18/20122022 Overview: 2Pt has a history of anxiety/depression diagnosed in 2010. She is currently taking Prozac prescribed by Dr. Reeves. Patient states that she did have depression. Discussed increased risks of depression during and and importance of reporting the development or worsening of symptoms should they occur. Patient states she did have a suicidal attempt in 2010 and was admitted to [facility]. She states she last had suicidal thoughts about 5 years ago. TKRN History of alcohol abuse 04/18/201206/2023 Overview: 04/18/2012Patient states before she found out she was she consumed about 10 beers every other day. She denies any alcohol use since finding out she was . Discussed risks of alcohol consumption during . Patient denies any other drug use. Family history of congenital heart defect 04/18/2012 01/01/2023 Overview: 04/18/2012Father of the baby's uncle born with cerebral palsy and a heart defect. Surgical correction was done. His uncle at age 11. Depression 05/26/2011 09/18/2019 Telangiectasia 01/27/2010 09/18/2019 Rosacea 01/27/2010 09/18/2019 Other acne 01/27/2010 09/18/2019 documented as of this encounter (statuses as of 09/28/2023) [facility]04-19-2023 History of Past illness Narrative* Problem Noted Date Diagnosed Date Resolved Date Abnormal glucose complicating 11/08/2022 01/01/2023 Anemia during in third trimester 11/08/2022 01/01/2023 Diet controlled gestational diabetes mellitus (GDM) in second trimester 11/08/2022 01/01/2023 Overview: 11/08/22- 2 levels out of 3 elevated. Supplies and referrals ordered. Sulma Bartholomew APRN.CNM Positive GBS test 11/06/2022 01/01/2023 Elevated glucose 11/06/2022 01/01/2023 Overview: 11/06/22- 1 hour elevated- 3 hour ordered. Sulma Bartholomew APRN.CNM Anemia 11/06/2022 01/01/2023 Overview: 11/06/22- iron studies ordered. Start oral iron. Repeat cbc 4 weeks. Sulma Bartholomew APRN.CNM Needle stick, hypodermic, ac cidental, initial encounter 08/14/2022 01/01/2023 Overview: On 08/12/22. See ID consult note from 08/14/22. SW Spotting in early 04/13/2022 01/01/2023 Overview: 04/13/2022atient was seen in the [place] ER for spotting on April [address] Briones for follow-up and serum quantitative hCGs were done. Patient denies any bleeding since then.TKRN Engages in vaping 04/13/2022 01/01/2023 Overview: 04/13/2022 Patient states she has been vaping nicotine for the past 5 years. She recently saw her PCP Dr. Reeves and has tried using nicotine patches. I have advised her of the [place] tobacco quit line and [facility] smoking cessation program. I have discussed the risks of vaping during and advised patient to continue trying to quit.TKRN History of macrosomia in inf ant in prior , currently 04/13/2022 01/01/2023 Overview: 04/13/2022 Patient's previous child weight was 9 pounds. TKRN Patient request for diagnostic testing 04/13/2022 01/01/2023 Overview: 04/13/2022atient desires aneuploidy screening. I have given her contact information for [employer] to check on insurance coverage. Patient considering horizon screening testing. Contact information for the [employer] rep given to patient to check on insurance coverage.Marlon Cortez RN HSIL (high grade squamous in traepithelial lesion) on Pap smear of cervix 01/10/2022 3 Overview: 04/26/22- HSIL on pathology - repeat colposcopy post . Sulma Bartholomew APRN.CNM 01/10/22- Colposcopy ordered. Sulma Bartholomew APRN.CNM Urinary incontinence 04/27/2020 020 ASCUS with positive high risk HPV cervical 09/26/2019 01/01/2023 Overview: 09/26/19 Colposcopy ordered. Kylee Gil APRN.[employer] Vapes nicotine containing substance 09/07/2015 01/01/2023 Overview: Started at age 14 up to 2 PPD. Quit 06/2015 Last Assessment & Plan: Assessment: Patient very interested in cessation PLAN: Nicotine patches- will try to decrease nicotine level on patches. Uncomplicated asthma 09/07/2015 020 Overview: 04/18/2012Patient has a history of asthma. She uses an albuterol inhaler when necessary. Family history of leukemia 02/04/2015 0 01/01/2023 Routine gynecological examination 12/09/2014 09/18/2019 Overview: [facility]. Chlamydia infection 09/23/2013 09/18/19 18 with adoption planned 04/22/2012 10/08/2012 Tobacco use in 04/18/2012 Overview: 04/18/2012Pt smokes one to 2 cigarettes a day, down from one half pack per day. Discussed risks of smoking during . Advised pt to quit. Last Assessment & Plan: 07/18/12: Pt is no longer smoking; states she quit about 2weeks ago. Rosario Lam NP History of depression 04/18/20122022 Overview: 2Pt has a history of anxiety/depression diagnosed in 2010. She is currently taking Prozac prescribed by Dr. Reeves. Patient states that she did have depression. Discussed increased risks of depression during and and importance of reporting the development or worsening of symptoms should they occur. Patient states she did have a suicidal attempt in 2010 and was admitted to [facility]. She states she last had suicidal thoughts about 5 years ago. TKRN History of alcohol abuse 04/18/201206/2023 Overview: 04/18/2012Patient states before she found out she was she consumed about 10 beers every other day. She denies any alcohol use since finding out she was . Discussed risks of alcohol consumption during . Patient denies any other drug use. Family history of congenital heart defect 04/18/2012 01/01/2023 Overview: 04/18/2012Father of the baby's uncle born with cerebral palsy and a heart defect. Surgical correction was done. His uncle at age 11. Depression 05/26/2011 09/18/2019 Telangiectasia 01/27/2010 09/18/2019 Rosacea 01/27/2010 09/18/2019 Other acne 01/27/2010 09/18/2019 documented as of this encounter (statuses as of 10/02/2023) [facility]04-19-2023 History of Past illness Narrative* Problem Noted Date Diagnosed Date Resolved Date Abnormal glucose complicating 11/08/2022 01/01/2023 Anemia during in third trimester 11/08/2022 01/01/2023 Diet controlled gestational diabetes mellitus (GDM) in second trimester 11/08/2022 01/01/2023 Overview: 11/08/22- 2 levels out of 3 elevated. Supplies and referrals ordered. Sulma Bartholomew APRN.JULISSA Positive GBS test 11/06/2022 01/01/2023 Elevated glucose 11/06/2022 01/01/2023 Overview: 11/06/22- 1 hour elevated- 3 hour ordered. Sulma Bartholomew APRN.CNM Anemia 11/06/2022 01/01/2023 Overview: 11/06/22- iron studies ordered. Start oral iron. Repeat cbc 4 weeks. Sulma Bartholomew APRN.CNM Needle stick, hypodermic, ac cidental, initial encounter 08/14/2022 01/01/2023 Overview: On 08/12/22. See ID consult note from 08/14/22. SW Spotting in early 04/13/2022 01/01/2023 Overview: 04/13/2022atient was seen in the [place] ER for spotting on April [address] Briones for follow-up and serum quantitative hCGs were done. Patient denies any bleeding since then.TKRN Engages in vaping 04/13/2022 01/01/2023 Overview: 04/13/2022 Patient states she has been vaping nicotine for the past 5 years. She recently saw her PCP Dr. Reeves and has tried using nicotine patches. I have advised her of the [place] tobacco quit line and [facility] smoking cessation program. I have discussed the risks of vaping during and advised patient to continue trying to quit.TKRN History of macrosomia in inf ant in prior , currently 04/13/2022 01/01/2023 Overview: 04/13/2022 Patient's previous child weight was 9 pounds. TKRN Patient request for diagnostic testing 04/13/2022 01/01/2023 Overview: 04/13/2022atient desires aneuploidy screening. I have given her contact information for [employer] to check on insurance coverage. Patient considering horizon screening testing. Contact information for the [employer] rep given to patient to check on insurance coverage.Marlon Cortez RN HSIL (high grade squamous in traepithelial lesion) on Pap smear of cervix 01/10/2022 Overview: 04/26/22- HSIL on pathology - repeat colposcopy post . Sulma Bartholomew APRN.CNM 01/10/22- Colposcopy ordered. Sulma Bartholomew APRN.JULISSA Urinary incontinence 04/27/2020 020 ASCUS with positive high risk HPV cervical 09/26/2019 01/01/2023 Overview: 09/26/19 Colposcopy ordered. Kylee Gil APRN.[employer] Vapes nicotine containing substance 09/07/2015 01/01/2023 Overview: Started at age 14 up to 2 PPD. Quit 06/2015 Last Assessment & Plan: Assessment: Patient very interested in cessation PLAN: Nicotine patches- will try to decrease nicotine level on patches. Uncomplicated asthma 09/07/2015 020 Overview: 04/18/2012Patient has a history of asthma. She uses an albuterol inhaler when necessary. Family history of leukemia 02/04/2015 0 01/01/2023 Routine gynecological examination 12/09/2014 09/18/2019 Overview: [facility]. Chlamydia infection 09/23/2013 09/18/19 20 with adoption planned 04/22/2012 10/08/2012 Tobacco use in 04/18/2012 Overview: 04/18/2012Pt smokes one to 2 cigarettes a day, down from one half pack per day. Discussed risks of smoking during . Advised pt to quit. Last Assessment & Plan: 07/18/12: Pt is no longer smoking; states she quit about 2weeks ago. Rosario Lam NP History of depression 04/18/20122022 Overview: 2Pt has a history of anxiety/depression diagnosed in 2010. She is currently taking Prozac prescribed by Dr. Reeves. Patient states that she did have depression. Discussed increased risks of depression during and and importance of reporting the development or worsening of symptoms should they occur. Patient states she did have a suicidal attempt in 2010 and was admitted to [facility]. She states she last had suicidal thoughts about 5 years ago. TKRN History of alcohol abuse 04/18/201206/2023 Overview: 04/18/2012Patient states before she found out she was she consumed about 10 beers every other day. She denies any alcohol use since finding out she was . Discussed risks of alcohol consumption during . Patient denies any other drug use. Family history of congenital heart defect 04/18/2012 01/01/2023 Overview: 04/18/2012Father of the baby's uncle born with cerebral palsy and a heart defect. Surgical correction was done. His uncle at age 11. Depression 05/26/2011 09/18/2019 Telangiectasia 01/27/2010 09/18/2019 Rosacea 01/27/2010 09/18/2019 Other acne 01/27/2010 09/18/2019 documented as of this encounter (statuses as of 10/02/2023) [facility] History of Past illness Narrative* Problem Noted Date Diagnosed Date Resolved Date Abnormal glucose complicating 11/08/2022 01/01/2023 Anemia during in third trimester 11/08/2022 01/01/2023 Diet controlled gestational diabetes mellitus (GDM) in second trimester 11/08/2022 01/01/2023 Overview: 11/08/22- 2 levels out of 3 elevated. Supplies and referrals ordered. Sulma Bartholomew APRN.CNM Positive GBS test 11/06/2022 01/01/2023 Elevated glucose 11/06/2022 01/01/2023 Overview: 11/06/22- 1 hour elevated- 3 hour ordered. Sulma Bartholomew APRN.CNM Anemia 11/06/2022 01/01/2023 Overview: 11/06/22- iron studies ordered. Start oral iron. Repeat cbc 4 weeks. Sulma Bartholomew APRN.KRYSTYNAM Needle stick, hypodermic, ac cidental, initial encounter 08/14/2022 01/01/2023 Overview: On 08/12/22. See ID consult note from 08/14/22. SW Spotting in early 04/13/2022 01/01/2023 Overview: 04/13/2022atient was seen in the [place] ER for spotting on April [address] Briones for follow-up and serum quantitative hCGs were done. Patient denies any bleeding since then.TKRN Engages in vaping 04/13/2022 01/01/2023 Overview: 04/13/2022 Patient states she has been vaping nicotine for the past 5 years. She recently saw her PCP Dr. Reeves and has tried using nicotine patches. I have advised her of the [place] tobacco quit line and [facility] smoking cessation program. I have discussed the risks of vaping during and advised patient to continue trying to quit.TKRN History of macrosomia in inf ant in prior , currently 04/13/2022 01/01/2023 Overview: 04/13/2022 Patient's previous child weight was 9 pounds. TKRN Patient request for diagnostic testing 04/13/2022 01/01/2023 Overview: 04/13/2022atient desires aneuploidy screening. I have given her contact information for [employer] to check on insurance coverage. Patient considering horizon screening testing. Contact information for the [employer] rep given to patient to check on insurance coverage.Marlon Cortez RN HSIL (high grade squamous in traepithelial lesion) on Pap smear of cervix 01/10/2022 Overview: 04/26/22- HSIL on pathology - repeat colposcopy post . Sulma Bartholomew APRN.CNM 01/10/22- Colposcopy ordered. Sulma Bartholomew APRN.CNM Urinary incontinence 04/27/2020 020 ASCUS with positive high risk HPV cervical 09/26/2019 01/01/2023 Overview: 09/26/19 Colposcopy ordered. Kylee Gil APRN.ANISHA Vapes nicotine containing substance 09/07/2015 01/01/2023 Overview: Started at age 14 up to 2 PPD. Quit 06/2015 Last Assessment & Plan: Assessment: Patient very interested in cessation PLAN: Nicotine patches- will try to decrease nicotine level on patches. Uncomplicated asthma 09/07/2015 020 Overview: 04/18/2012Patient has a history of asthma. She uses an albuterol inhaler when necessary. Family history of leukemia 02/04/2015 0 01/01/2023 Routine gynecological examination 12/09/2014 09/18/2019 Overview: [facility]. Chlamydia infection 09/23/2013 09/18/19 20 with adoption planned 04/22/2012 10/08/2012 Tobacco use in 04/18/2012 Overview: 04/18/2012Pt smokes one to 2 cigarettes a day, down from one half pack per day. Discussed risks of smoking during . Advised pt to quit. Last Assessment & Plan: 07/18/12: Pt is no longer smoking; states she quit about 2weeks ago. Rosario Lam NP History of depression 04/18/20122022 Overview: 2Pt has a history of anxiety/depression diagnosed in 2010. She is currently taking Prozac prescribed by Dr. Reeves. Patient states that she did have depression. Discussed increased risks of depression during and and importance of reporting the development or worsening of symptoms should they occur. Patient states she did have a suicidal attempt in 2010 and was admitted to [facility]. She states she last had suicidal thoughts about 5 years ago. TKRN History of alcohol abuse 04/18/201206/2023 Overview: 04/18/2012Patient states before she found out she was she consumed about 10 beers every other day. She denies any alcohol use since finding out she was . Discussed risks of alcohol consumption during . Patient denies any other drug use. Family history of congenital heart defect 04/18/2012 01/01/2023 Overview: 04/18/2012Father of the baby's uncle born with cerebral palsy and a heart defect. Surgical correction was done. His uncle at age 11. Depression 05/26/2011 09/18/2019 Telangiectasia 01/27/2010 09/18/2019 Rosacea 01/27/2010 09/18/2019 Other acne 01/27/2010 09/18/2019 documented as of this encounter (statuses as of 10/05/2023) [facility] History of Past illness Narrative* Problem Noted Date Diagnosed Date Resolved Date Abnormal glucose complicating 11/08/2022 01/01/2023 Anemia during in third trimester 11/08/2022 01/01/2023 Diet controlled gestational diabetes mellitus (GDM) in second trimester 11/08/2022 01/01/2023 Overview: 11/08/22- 2 levels out of 3 elevated. Supplies and referrals ordered. Sulma Bartholomew APRN.CNM Positive GBS test 11/06/2022 01/01/2023 Elevated glucose 11/06/2022 01/01/2023 Overview: 11/06/22- 1 hour elevated- 3 hour ordered. Sulma Bartholomew APRN.CNM Anemia 11/06/2022 01/01/2023 Overview: 11/06/22- iron studies ordered. Start oral iron. Repeat cbc 4 weeks. Sulma Bartholomew APRN.CNM Needle stick, hypodermic, ac cidental, initial encounter 08/14/2022 01/01/2023 Overview: On 08/12/22. See ID consult note from 08/14/22. SW Spotting in early 04/13/2022 01/01/2023 Overview: 04/13/2022atient was seen in the [place] ER for spotting on April [address] Briones for follow-up and serum quantitative hCGs were done. Patient denies any bleeding since then.TKRN Engages in vaping 04/13/2022 01/01/2023 Overview: 04/13/2022 Patient states she has been vaping nicotine for the past 5 years. She recently saw her PCP Dr. Reeves and has tried using nicotine patches. I have advised her of the [place] tobacco quit line and [facility] smoking cessation program. I have discussed the risks of vaping during and advised patient to continue trying to quit.TKRN History of macrosomia in inf ant in prior , currently 04/13/2022 01/01/2023 Overview: 04/13/2022 Patient's previous child weight was 9 pounds. TKRN Patient request for diagnostic testing 04/13/2022 01/01/2023 Overview: 04/13/2022atient desires aneuploidy screening. I have given her contact information for [employer] to check on insurance coverage. Patient considering horizon screening testing. Contact information for the [employer] rep given to patient to check on insurance coverage.Marlon Cortez RN HSIL (high grade squamous in traepithelial lesion) on Pap smear of cervix 01/10/2022 Overview: 04/26/22- HSIL on pathology - repeat colposcopy post . Sulma Bartholomew APRN.CNM 01/10/22- Colposcopy ordered. Sulma Bartholomew APRN.CNM Urinary incontinence 04/27/2020 020 ASCUS with positive high risk HPV cervical 09/26/2019 01/01/2023 Overview: 09/26/19 Colposcopy ordered. Kylee Gil APRN.ANISHA Vapes nicotine containing substance 09/07/2015 01/01/2023 Overview: Started at age 14 up to 2 PPD. Quit 06/2015 Last Assessment & Plan: Assessment: Patient very interested in cessation PLAN: Nicotine patches- will try to decrease nicotine level on patches. Uncomplicated asthma 09/07/2015 020 Overview: 04/18/2012Patient has a history of asthma. She uses an albuterol inhaler when necessary. Family history of leukemia 02/04/2015 0 01/01/2023 Routine gynecological examination 12/09/2014 09/18/2019 Overview: [facility] [place]. Chlamydia infection 09/23/2013 09/18/19 18 with adoption planned 04/22/2012 10/08/2012 Tobacco use in 04/18/2012 Overview: 04/18/2012Pt smokes one to 2 cigarettes a day, down from one half pack per day. Discussed risks of smoking during . Advised pt to quit. Last Assessment & Plan: 07/18/12: Pt is no longer smoking; states she quit about 2weeks ago. Rosario Lam NP History of depression 04/18/20122022 Overview: 2Pt has a history of anxiety/depression diagnosed in 2010. She is currently taking Prozac prescribed by Dr. Reeves. Patient states that she did have depression. Discussed increased risks of depression during and and importance of reporting the development or worsening of symptoms should they occur. Patient states she did have a suicidal attempt in 2010 and was admitted to [facility]. She states she last had suicidal thoughts about 5 years ago. TKRN History of alcohol abuse 04/18/201206/2023 Overview: 04/18/2012Patient states before she found out she was she consumed about 10 beers every other day. She denies any alcohol use since finding out she was . Discussed risks of alcohol consumption during . Patient denies any other drug use. Family history of congenital heart defect 04/18/2012 01/01/2023 Overview: 04/18/2012Father of the baby's uncle born with cerebral palsy and a heart defect. Surgical correction was done. His uncle at age 11. Depression 05/26/2011 09/18/2019 Telangiectasia 01/27/2010 09/18/2019 Rosacea 01/27/2010 09/18/2019 Other acne 01/27/2010 09/18/2019 documented as of this encounter (statuses as of 10/06/2023) [facility]04-19-2023 History of Past illness Narrative* Problem Noted Date Diagnosed Date Resolved Date Abnormal glucose complicating 11/08/2022 01/01/2023 Anemia during in third trimester 11/08/2022 01/01/2023 Diet controlled gestational diabetes mellitus (GDM) in second trimester 11/08/2022 01/01/2023 Overview: 11/08/22- 2 levels out of 3 elevated. Supplies and referrals ordered. Sulma Bartholomew APRN.KRYSTYNAM Positive GBS test 11/06/2022 01/01/2023 Elevated glucose 11/06/2022 01/01/2023 Overview: 11/06/22- 1 hour elevated- 3 hour ordered. Sulma Bartholomew APRN.JULISSA Anemia 11/06/2022 01/01/2023 Overview: 11/06/22- iron studies ordered. Start oral iron. Repeat cbc 4 weeks. Sulma Bartholomew APRN.CNM Needle stick, hypodermic, ac cidental, initial encounter 08/14/2022 01/01/2023 Overview: On 08/12/22. See ID consult note from 08/14/22. SW Spotting in early 04/13/2022 01/01/2023 Overview: 04/13/2022atient was seen in the [place] ER for spotting on April [address] Briones for follow-up and serum quantitative hCGs were done. Patient denies any bleeding since then.TKRN Engages in vaping 04/13/2022 01/01/2023 Overview: 04/13/2022 Patient states she has been vaping nicotine for the past 5 years. She recently saw her PCP Dr. Reeves and has tried using nicotine patches. I have advised her of the [place] tobacco quit line and [facility] smoking cessation program. I have discussed the risks of vaping during and advised patient to continue trying to quit.TKRN History of macrosomia in inf ant in prior , currently 04/13/2022 01/01/2023 Overview: 04/13/2022 Patient's previous child weight was 9 pounds. TKRN Patient request for diagnostic testing 04/13/2022 01/01/2023 Overview: 04/13/2022atient desires aneuploidy screening. I have given her contact information for [employer] to check on insurance coverage. Patient considering horizon screening testing. Contact information for the [employer] rep given to patient to check on insurance coverage.Marlon Cortez RN HSIL (high grade squamous in traepithelial lesion) on Pap smear of cervix 01/10/2022 Overview: 04/26/22- HSIL on pathology - repeat colposcopy post . Sulma Bartholomew APRN.CNM 01/10/22- Colposcopy ordered. Sulma Bartholomew APRN.JULISSA Urinary incontinence 04/27/2020 020 ASCUS with positive high risk HPV cervical 09/26/2019 01/01/2023 Overview: 09/26/19 Colposcopy ordered. Kylee Gil APRN.[employer] Vapes nicotine containing substance 09/07/2015 01/01/2023 Overview: Started at age 14 up to 2 PPD. Quit 06/2015 Last Assessment & Plan: Assessment: Patient very interested in cessation PLAN: Nicotine patches- will try to decrease nicotine level on patches. Uncomplicated asthma 09/07/2015 020 Overview: 04/18/2012Patient has a history of asthma. She uses an albuterol inhaler when necessary. Family history of leukemia 02/04/2015 0 01/01/2023 Routine gynecological examination 12/09/2014 09/18/2019 Overview: [facility] [place]. Chlamydia infection 09/23/2013 09/18/19 18 with adoption planned 04/22/2012 10/08/2012 Tobacco use in 04/18/2012 Overview: 04/18/2012Pt smokes one to 2 cigarettes a day, down from one half pack per day. Discussed risks of smoking during . Advised pt to quit. Last Assessment & Plan: 07/18/12: Pt is no longer smoking; states she quit about 2weeks ago. Rosario Lam NP History of depression 04/18/20122022 Overview: 2Pt has a history of anxiety/depression diagnosed in 2010. She is currently taking Prozac prescribed by Dr. Reeves. Patient states that she did have depression. Discussed increased risks of depression during and and importance of reporting the development or worsening of symptoms should they occur. Patient states she did have a suicidal attempt in 2010 and was admitted to [facility]. She states she last had suicidal thoughts about 5 years ago. TKRN History of alcohol abuse 04/18/201206/2023 Overview: 04/18/2012Patient states before she found out she was she consumed about 10 beers every other day. She denies any alcohol use since finding out she was . Discussed risks of alcohol consumption during . Patient denies any other drug use. Family history of congenital heart defect 04/18/2012 01/01/2023 Overview: 04/18/2012Father of the baby's uncle born with cerebral palsy and a heart defect. Surgical correction was done. His uncle at age 11. Depression 05/26/2011 09/18/2019 Telangiectasia 01/27/2010 09/18/2019 Rosacea 01/27/2010 09/18/2019 Other acne 01/27/2010 09/18/2019 documented as of this encounter (statuses as of 10/09/2023) [facility]04-19-2023 History of Past illness Narrative* Problem Noted Date Diagnosed Date Resolved Date Abnormal glucose complicating 11/08/2022 01/01/2023 Anemia during in third trimester 11/08/2022 01/01/2023 Diet controlled gestational diabetes mellitus (GDM) in second trimester 11/08/2022 01/01/2023 Overview: 11/08/22- 2 levels out of 3 elevated. Supplies and referrals ordered. Sulma Bartholomew APRN.JULISSA Positive GBS test 11/06/2022 01/01/2023 Elevated glucose 11/06/2022 01/01/2023 Overview: 11/06/22- 1 hour elevated- 3 hour ordered. Sulma Bartholomew APRN.CNM Anemia 11/06/2022 01/01/2023 Overview: 11/06/22- iron studies ordered. Start oral iron. Repeat cbc 4 weeks. Sulma Bartholomew APRN.KRYSTYNAM Needle stick, hypodermic, ac cidental, initial encounter 08/14/2022 01/01/2023 Overview: On 08/12/22. See ID consult note from 08/14/22. SW Spotting in early 04/13/2022 01/01/2023 Overview: 04/13/2022atient was seen in the [place] ER for spotting on April [address] Briones for follow-up and serum quantitative hCGs were done. Patient denies any bleeding since then.TKRN Engages in vaping 04/13/2022 01/01/2023 Overview: 04/13/2022 Patient states she has been vaping nicotine for the past 5 years. She recently saw her PCP Dr. Reeves and has tried using nicotine patches. I have advised her of the [place] tobacco quit line and [facility] smoking cessation program. I have discussed the risks of vaping during and advised patient to continue trying to quit.TKRN History of macrosomia in inf ant in prior , currently 04/13/2022 01/01/2023 Overview: 04/13/2022 Patient's previous child weight was 9 pounds. TKRN Patient request for diagnostic testing 04/13/2022 01/01/2023 Overview: 04/13/2022atient desires aneuploidy screening. I have given her contact information for [employer] to check on insurance coverage. Patient considering horizon screening testing. Contact information for the [employer] rep given to patient to check on insurance coverage.Marlon Cortez RN HSIL (high grade squamous in traepithelial lesion) on Pap smear of cervix 01/10/2022 3 Overview: 04/26/22- HSIL on pathology - repeat colposcopy post . Sulma Bartholomew APRN.CNM 01/10/22- Colposcopy ordered. Sulma Bartholomew APRN.JULISSA Urinary incontinence 04/27/2020 020 ASCUS with positive high risk HPV cervical 09/26/2019 01/01/2023 Overview: 09/26/19 Colposcopy ordered. Kylee Gil APRN.[employer] Vapes nicotine containing substance 09/07/2015 01/01/2023 Overview: Started at age 14 up to 2 PPD. Quit 06/2015 Last Assessment & Plan: Assessment: Patient very interested in cessation PLAN: Nicotine patches- will try to decrease nicotine level on patches. Uncomplicated asthma 09/07/2015 020 Overview: 04/18/2012Patient has a history of asthma. She uses an albuterol inhaler when necessary. Family history of leukemia 02/04/2015 0 01/01/2023 Routine gynecological examination 12/09/2014 09/18/2019 Overview: [facility]. Chlamydia infection 09/23/2013 09/18/19 18 with adoption planned 04/22/2012 10/08/2012 Tobacco use in 04/18/2012 Overview: 04/18/2012Pt smokes one to 2 cigarettes a day, down from one half pack per day. Discussed risks of smoking during . Advised pt to quit. Last Assessment & Plan: 07/18/12: Pt is no longer smoking; states she quit about 2weeks ago. Rosario Lam NP History of depression 04/18/20122022 Overview: 2Pt has a history of anxiety/depression diagnosed in 2010. She is currently taking Prozac prescribed by Dr. Reeves. Patient states that she did have depression. Discussed increased risks of depression during and and importance of reporting the development or worsening of symptoms should they occur. Patient states she did have a suicidal attempt in 2010 and was admitted to [facility]. She states she last had suicidal thoughts about 5 years ago. TKRN History of alcohol abuse 04/18/201206/2023 Overview: 04/18/2012Patient states before she found out she was she consumed about 10 beers every other day. She denies any alcohol use since finding out she was . Discussed risks of alcohol consumption during . Patient denies any other drug use. Family history of congenital heart defect 04/18/2012 01/01/2023 Overview: 04/18/2012Father of the baby's uncle born with cerebral palsy and a heart defect. Surgical correction was done. His uncle at age 11. Depression 05/26/2011 09/18/2019 Telangiectasia 01/27/2010 09/18/2019 Rosacea 01/27/2010 09/18/2019 Other acne 01/27/2010 09/18/2019 documented as of this encounter (statuses as of 10/09/2023) [facility]04-19-20[facility] History of Past illness Narrative* Problem Noted Date Diagnosed Date Resolved Date Abnormal glucose complicating 11/08/2022 01/01/2023 Anemia during in third trimester 11/08/2022 01/01/2023 Diet controlled gestational diabetes mellitus (GDM) in second trimester 11/08/2022 01/01/2023 Overview: 11/08/22- 2 levels out of 3 elevated. Supplies and referrals ordered. Sulma Bartholomew APRN.CNM Positive GBS test 11/06/2022 01/01/2023 Elevated glucose 11/06/2022 01/01/2023 Overview: 11/06/22- 1 hour elevated- 3 hour ordered. Sulma Bartholomew APRN.CNM Anemia 11/06/2022 01/01/2023 Overview: 11/06/22- iron studies ordered. Start oral iron. Repeat cbc 4 weeks. Sulma Bartholomew APRN.CNM Needle stick, hypodermic, ac cidental, initial encounter 08/14/2022 01/01/2023 Overview: On 08/12/22. See ID consult note from 08/14/22. SW Spotting in early 04/13/2022 01/01/2023 Overview: 04/13/2022atient was seen in the [place] ER for spotting on April [address] Briones for follow-up and serum quantitative hCGs were done. Patient denies any bleeding since then.TKRN Engages in vaping 04/13/2022 01/01/2023 Overview: 04/13/2022 Patient states she has been vaping nicotine for the past 5 years. She recently saw her PCP Dr. Reeves and has tried using nicotine patches. I have advised her of the [place] tobacco quit line and [facility] smoking cessation program. I have discussed the risks of vaping during and advised patient to continue trying to quit.TKRN History of macrosomia in inf ant in prior , currently 04/13/2022 01/01/2023 Overview: 04/13/2022 Patient's previous child weight was 9 pounds. TKRN Patient request for diagnostic testing 04/13/2022 01/01/2023 Overview: 04/13/2022atient desires aneuploidy screening. I have given her contact information for [employer] to check on insurance coverage. Patient considering horizon screening testing. Contact information for the [employer] rep given to patient to check on insurance coverage.Marlon Cortez RN HSIL (high grade squamous in traepithelial lesion) on Pap smear of cervix 01/10/2022 3 Overview: 04/26/22- HSIL on pathology - repeat colposcopy post . Sulma Bartholomew APRN.JULISSA 01/10/22- Colposcopy ordered. Sulma Bartholomew APRN.JULISSA Urinary incontinence 04/27/2020 020 ASCUS with positive high risk HPV cervical 09/26/2019 01/01/2023 Overview: 09/26/19 Colposcopy ordered. Kylee Gil APRN.[employer] Vapes nicotine containing substance 09/07/2015 01/01/2023 Overview: Started at age 14 up to 2 PPD. Quit 06/2015 Last Assessment & Plan: Assessment: Patient very interested in cessation PLAN: Nicotine patches- will try to decrease nicotine level on patches. Uncomplicated asthma 09/07/2015 020 Overview: 04/18/2012Patient has a history of asthma. She uses an albuterol inhaler when necessary. Family history of leukemia 02/04/2015 0 01/01/2023 Routine gynecological examination 12/09/2014 09/18/2019 Overview: [facility]. Chlamydia infection 09/23/2013 09/18/19 18 with adoption planned 04/22/2012 10/08/2012 Tobacco use in 04/18/2012 Overview: 04/18/2012Pt smokes one to 2 cigarettes a day, down from one half pack per day. Discussed risks of smoking during . Advised pt to quit. Last Assessment & Plan: 07/18/12: Pt is no longer smoking; states she quit about 2weeks ago. Rosario Lam NP History of depression 04/18/20122022 Overview: 2Pt has a history of anxiety/depression diagnosed in 2010. She is currently taking Prozac prescribed by Dr. Reeves. Patient states that she did have depression. Discussed increased risks of depression during and and importance of reporting the development or worsening of symptoms should they occur. Patient states she did have a suicidal attempt in 2010 and was admitted to [facility]. She states she last had suicidal thoughts about 5 years ago. TKRN History of alcohol abuse 04/18/201206/2023 Overview: 04/18/2012Patient states before she found out she was she consumed about 10 beers every other day. She denies any alcohol use since finding out she was . Discussed risks of alcohol consumption during . Patient denies any other drug use. Family history of congenital heart defect 04/18/2012 01/01/2023 Overview: 04/18/2012Father of the baby's uncle born with cerebral palsy and a heart defect. Surgical correction was done. His uncle at age 11. Depression 05/26/2011 09/18/2019 Telangiectasia 01/27/2010 09/18/2019 Rosacea 01/27/2010 09/18/2019 Other acne 01/27/2010 09/18/2019 documented as of this encounter (statuses as of 10/09/2023) [facility] History of Past illness Narrative* Problem Noted Date Diagnosed Date Resolved Date Abnormal glucose complicating 11/08/2022 01/01/2023 Anemia during in third trimester 11/08/2022 01/01/2023 Diet controlled gestational diabetes mellitus (GDM) in second trimester 11/08/2022 01/01/2023 Overview: 11/08/22- 2 levels out of 3 elevated. Supplies and referrals ordered. Sulma Bartholomew APRN.CNM Positive GBS test 11/06/2022 01/01/2023 Elevated glucose 11/06/2022 01/01/2023 Overview: 11/06/22- 1 hour elevated- 3 hour ordered. Sulma Bartholomew APRN.CNM Anemia 11/06/2022 01/01/2023 Overview: 11/06/22- iron studies ordered. Start oral iron. Repeat cbc 4 weeks. Sulma Bartholomew APRN.CNM Needle stick, hypodermic, ac cidental, initial encounter 08/14/2022 01/01/2023 Overview: On 08/12/22. See ID consult note from 08/14/22. SW Spotting in early 04/13/2022 01/01/2023 Overview: 04/13/2022atient was seen in the [place] ER for spotting on April [address] Briones for follow-up and serum quantitative hCGs were done. Patient denies any bleeding since then.TKRN Engages in vaping 04/13/2022 01/01/2023 Overview: 04/13/2022 Patient states she has been vaping nicotine for the past 5 years. She recently saw her PCP Dr. Reeves and has tried using nicotine patches. I have advised her of the [place] tobacco quit line and [facility] smoking cessation program. I have discussed the risks of vaping during and advised patient to continue trying to quit.TKRN History of macrosomia in inf ant in prior , currently 04/13/2022 01/01/2023 Overview: 04/13/2022 Patient's previous child weight was 9 pounds. TKRN Patient request for diagnostic testing 04/13/2022 01/01/2023 Overview: 2Patient desires aneuploidy screening. I have given her contact information for [employer] to check on insurance coverage. Patient considering horizon screening testing. Contact information for the [employer] rep given to patient to check on insurance coverage.Marlon Cortez RN HSIL (high grade squamous in traepithelial lesion) on Pap smear of cervix 01/10/2022 3 Overview: 04/26/22- HSIL on pathology - repeat colposcopy post . Sulma Bartholomew APRN.CNM 01/10/22- Colposcopy ordered. Sulma Bartholomew APRN.CNM Urinary incontinence 04/27/2020 020 ASCUS with positive high risk HPV cervical 09/26/2019 01/01/2023 Overview: 09/26/19 Colposcopy ordered. Kylee Gil APRN.[employer] Vapes nicotine containing substance 09/07/2015 01/01/2023 Overview: Started at age 14 up to 2 PPD. Quit 06/2015 Last Assessment & Plan: Assessment: Patient very interested in cessation PLAN: Nicotine patches- will try to decrease nicotine level on patches. Uncomplicated asthma 09/07/2015 020 Overview: 04/18/2012Patient has a history of asthma. She uses an albuterol inhaler when necessary. Family history of leukemia 02/04/2015 0 01/01/2023 Routine gynecological examination 12/09/2014 09/18/2019 Overview: [facility]. Chlamydia infection 09/23/2013 09/18/19 18 with adoption planned 04/22/2012 10/08/2012 Tobacco use in 04/18/2012 Overview: 04/18/2012Pt smokes one to 2 cigarettes a day, down from one half pack per day. Discussed risks of smoking during . Advised pt to quit. Last Assessment & Plan: 07/18/12: Pt is no longer smoking; states she quit about 2weeks ago. Rosario Lam NP History of depression 04/18/20122022 Overview: 2Pt has a history of anxiety/depression diagnosed in 2010. She is currently taking Prozac prescribed by Dr. Reeves. Patient states that she did have depression. Discussed increased risks of depression during and and importance of reporting the development or worsening of symptoms should they occur. Patient states she did have a suicidal attempt in 2010 and was admitted to [facility]. She states she last had suicidal thoughts about 5 years ago. TKRN History of alcohol abuse 04/18/201206/2023 Overview: 04/18/2012Patient states before she found out she was she consumed about 10 beers every other day. She denies any alcohol use since finding out she was . Discussed risks of alcohol consumption during . Patient denies any other drug use. Family history of congenital heart defect 04/18/2012 01/01/2023 Overview: 04/18/2012Father of the baby's uncle born with cerebral palsy and a heart defect. Surgical correction was done. His uncle at age 11. Depression 05/26/2011 09/18/2019 Telangiectasia 01/27/2010 09/18/2019 Rosacea 01/27/2010 09/18/2019 Other acne 01/27/2010 09/18/2019 documented as of this encounter (statuses as of 10/12/2023) [facility] History of Past illness Narrative* Problem Noted Date Diagnosed Date Resolved Date Abnormal glucose complicating 11/08/2022 01/01/2023 Anemia during in third trimester 11/08/2022 01/01/2023 Diet controlled gestational diabetes mellitus (GDM) in second trimester 11/08/2022 01/01/2023 Overview: 11/08/22- 2 levels out of 3 elevated. Supplies and referrals ordered. Sulma Bartholomew APRN.CNM Positive GBS test 11/06/2022 01/01/2023 Elevated glucose 11/06/2022 01/01/2023 Overview: 11/06/22- 1 hour elevated- 3 hour ordered. Sulma Bartholomew APRN.CNM Anemia 11/06/2022 01/01/2023 Overview: 11/06/22- iron studies ordered. Start oral iron. Repeat cbc 4 weeks. Sulma Bartholomew APRN.CNM Needle stick, hypodermic, ac cidental, initial encounter 08/14/2022 01/01/2023 Overview: On 08/12/22. See ID consult note from 08/14/22. SW Spotting in early 04/13/2022 01/01/2023 Overview: 04/13/2022atient was seen in the [place] ER for spotting on April [address] Briones for follow-up and serum quantitative hCGs were done. Patient denies any bleeding since then.TKRN Engages in vaping 04/13/2022 01/01/2023 Overview: 04/13/2022 Patient states she has been vaping nicotine for the past 5 years. She recently saw her PCP Dr. Reeves and has tried using nicotine patches. I have advised her of the [place] tobacco quit line and [facility] smoking cessation program. I have discussed the risks of vaping during and advised patient to continue trying to quit.TKRN History of macrosomia in inf ant in prior , currently 04/13/2022 01/01/2023 Overview: 04/13/2022 Patient's previous child weight was 9 pounds. TKRN Patient request for diagnostic testing 04/13/2022 01/01/2023 Overview: 04/13/2022atient desires aneuploidy screening. I have given her contact information for [employer] to check on insurance coverage. Patient considering horizon screening testing. Contact information for the [employer] rep given to patient to check on insurance coverage.Marlon Cortez RN HSIL (high grade squamous in traepithelial lesion) on Pap smear of cervix 01/10/2022 Overview: 04/26/22- HSIL on pathology - repeat colposcopy post . Sulma Bartholomew APRN.CNM 01/10/22- Colposcopy ordered. Sulma Bartholomew APRN.JULISSA Urinary incontinence 04/27/2020 020 ASCUS with positive high risk HPV cervical 09/26/2019 01/01/2023 Overview: 09/26/19 Colposcopy ordered. Kylee Gil APRN.[employer] Vapes nicotine containing substance 09/07/2015 01/01/2023 Overview: Started at age 14 up to 2 PPD. Quit 06/2015 Last Assessment & Plan: Assessment: Patient very interested in cessation PLAN: Nicotine patches- will try to decrease nicotine level on patches. Uncomplicated asthma 09/07/2015 020 Overview: 04/18/2012Patient has a history of asthma. She uses an albuterol inhaler when necessary. Family history of leukemia 02/04/2015 0 01/01/2023 Routine gynecological examination 12/09/2014 09/18/2019 Overview: [facility]. Chlamydia infection 09/23/2013 09/18/19 18 with adoption planned 04/22/2012 10/08/2012 Tobacco use in 04/18/2012 Overview: 04/18/2012Pt smokes one to 2 cigarettes a day, down from one half pack per day. Discussed risks of smoking during . Advised pt to quit. Last Assessment & Plan: 07/18/12: Pt is no longer smoking; states she quit about 2weeks ago. Rosario Lam NP History of depression 04/18/20122022 Overview: 2Pt has a history of anxiety/depression diagnosed in 2010. She is currently taking Prozac prescribed by Dr. Reeves. Patient states that she did have depression. Discussed increased risks of depression during and and importance of reporting the development or worsening of symptoms should they occur. Patient states she did have a suicidal attempt in 2010 and was admitted to [facility]. She states she last had suicidal thoughts about 5 years ago. TKRN History of alcohol abuse 04/18/201206/2023 Overview: 04/18/2012Patient states before she found out she was she consumed about 10 beers every other day. She denies any alcohol use since finding out she was . Discussed risks of alcohol consumption during . Patient denies any other drug use. Family history of congenital heart defect 04/18/2012 01/01/2023 Overview: 04/18/2012Father of the baby's uncle born with cerebral palsy and a heart defect. Surgical correction was done. His uncle at age 9. Depression 05/26/2011 09/18/2019 Telangiectasia 01/27/2010 09/18/2019 Rosacea 01/27/2010 09/18/2019 Other acne 01/27/2010 09/18/2019 documented as of this encounter (statuses as of 10/23/2023) [facility]04-17-[facility] History of Present illness Narrative* Singh Carvalho MD - 11/06/2022 5:11 PM EDT Patient presents with: Cough: Chest congestion, SOB, CISNEROS x2 days HPI: Feeling sick for 3 days. Positive symptoms: Cough, Shortness of breath, Headache, watery eyes, Diarrhea, Negative symptoms: Sore throat, Fever, Chills, Nausea, Vomiting, no history of environmental allergies, OTC: Tylenol, albuterol. Currently 36 weeks . Had COVID illness last year. PAST MEDICAL HISTORY Diagnosis Date ASCUS with positive high risk HPV cervical 09/26/2019 Asthma 11/29/2011 ATTN DEFICIT NONHYPERACT 11/27/2007 Bulging of intervertebral disc between L4 and L5 and L5 and S1 09/07/2015 Chest pain 04/29/2010 Chlamydia infection 09/23/2013 Depression 05/26/2011 Depression complicating , antepartum 08/02/2012 Generalized anxiety disorder GERD (gastroesophageal reflux disease) Hepatitis C 2017 2018 cured after medication course. High grade squamous intraepithelial cervical dysplasia History of suicide attempt 2015 cutting wrist Juvenile osteochondrosis of lower extremity, excluding foot 2004, resolved Migraine headache 05/26/2011 other Sever's Disease, 2006, resolved Other acne 01/27/2010 Pain in joint, site unspecified AC joint tear, 2005 Patient requested diagnostic testing 04/18/2012 04/18/2012 Patient desires early screening in with sequential testing. Poor support system complicating 04/18/2012 04/18/2012The father of the baby is aware that she is , but does not wish to be involved. Patient states her parents are very supportive. Patient is tearful for some of this visit today due to the father of the baby. She states he has put pressure on her in the past to have an , butshe does not wish to do that. Patient was given a brochure on the care center and WIC. depression PTSD (post-traumatic stress disorder) Rosacea 01/27/2010 Rubella non-immune status 04/22/2012 Skin cancer Teen 04/22/2012 July 04, 2012 Flu vaccine given Telangiectasia 01/27/2010 Tobacco use disorder MEDICATIONS: Current Outpatient Medications Medication Sig famotidine (PEPCID) 20 mg tablet Take 1 tablet by mouth at bedtime as needed. albuterol HFA (PROAIR HFA) 90 mcg/actuation inhaler Inhale 2 Puffs as instructed every 4 hours as needed for wheezing/shortness of breath. Used for seasonal allergies nicotine (NICODERM) 21 mg/24 hr Apply 1 Patch as directed every 24 hours. nicotine (NICODERM) 14 mg/24 hr Apply 1 Patch as directed every 24 hours. No smoking with patch. nicotine (NICODERM) 7 mg/24 hr Apply 1 Patch as directed every 24 hours. calcium carbonate/vitamin D3 (CALCIUM 500 WITH D ORAL) Take by mouth. PNV no.95/ferrous fum/folic ac ( ORAL) Take by mouth. No current facility-administered medications for this visit. ALLERGIES: ALLERGIES Allergen Reactions Zyrtec [Cetirizine * Intolerance tremors VITALS: BP 124/78 Pulse 117 Temp 36.8 C (98.2 F) Resp 18 Wt 91.6 kg (202 lb) LMP 02/22/2022 (Approximate) SpO2 97% BMI 32.78 kg/m PHYSICAL EXAM: GEN: mildly ill appearing HEENT: PERRL, EOMI, conjunctiva clear Ears: cerumen TMs without erythema, bulge, or effusion Sinuses: non-tender frontal sinus, non-tender maxillary sinuses Throat: moist mucous membranes, mild erythema, no exudate Neck: supple, no thyromegaly, no lymphadenopathy HEART: regular rate and rhythm, no murmurs LUNGS: harsh cough, clear to auscultation, no wheezes or crackles, no increased WOB ASSESSMENT/PLAN: 1. Acute cough - ICD9: 786.2, ICD10: R05.1 (primary diagnosis) 2. Wheezing - ICD9: 786.07, ICD10: R06.2 - suspect viral URI, differential includes COVID-19. - Discussed supportive care treatment. - Red flags to seek further treatment include chest pain, shortness of breath, and lethargy; in theER if severe. - 2019 CORONAVIRUS - PREDNISONE 10 MG TABLET taper. Advised to ask OB if OK to take. Singh Carvalho MD documented [facility]04[facility] Miscellaneous Notes* Telephone Encounter - Earle Munoz LPN - 11/03/2022 2:35 PM EDT FMLA completed, faxed to employer and scanned into EMR and filed in [employer] WORK[employer] suite. Earle Munoz LPN * Telephone Encounter - Earle Munoz LPN - 11/03/2022 2:16 PM EDT FMLA completed and placed on provider desk for signature. Earle Munoz LPN * Telephone Encounter - Earle Munoz LPN - 11/03/2022 9:47 AM EDT Spoke with pt and she will begin leave at delivery and extend out approx 8 weeks post . Earle Munoz LPN * Telephone Encounter - Earle Munoz LPN - 11/02/2022 10:37 AM EDT Received fax from pt for FMLA, message sent to pt to supply dates of her leave and return to work date. Earle Munoz LPN documented in this encounterBu[facility]04-[facility]23 Miscellaneous Notes* Result Encounter Note - Carmelita Millan MD - 11/02/2022 9:28 AM EDT Anatomy ultrasound reviewed. No abnormalities identified. Follow up as clinically indicated. Pleaseplace copy in ob chart. Carmelita Millan MD documented in this encounterBucy[facility]04-13-2023 Miscellaneous Notes* Quick Notes - Angela Haq APRN.CNP - 11/02/2022 9:12 AM EDT RM-Pt doing well. Denies vaginal Bleeding, Leaking fluid, or regular Contractions. Pt reports good movement Did 1 hr glucose yesterday result 172 and is wondering if she needs to do the 3hr test. Physical Exam: Gen: no apparent distress Abd: soft, Gravid. Non tender to palpation. See flow sheet GBS done today Growth US done today GCT 3 hour ordered RTO 1 week Angela Haq APRN.ANISHA documented in this encounterBucyrus [facility]04-13-2023 Instructions* Patient Instructions* Lacy León Ma - 11/02/2022 8:38 AM EDT SEQUENTIAL SCREENINGS The [facility] offers sequential screenings for women who are interested in screenings for chromosomal abnormalities and certain defects during a . The sequential screen combinesultrasound and blood tests to determine the risk of chromosomal abnormalities, including Down's Syndrome (Trisomy 21) and Trisomy 18, as well as open neural tube defects including spina bifida. Ultrasound examination is performed between 11 weeks and 13 weeks gestational age. Blood tests are drawn after the ultrasound and again later in the between 15 and 21 weeks gestational age. Please let your physician know if you are interested in this testing. It will require an appointment withour sonography technician. This is not an ultrasound performed by a physician in our office during a routine visit. SIGNS AND SYMPTOMS OF LABOR 1. Contractions every 10 minutes or more often 2. Clear, pink, or brownish fluid (water) leaking from vagina 3. Feeling that baby is pushing down, pressure 4. Low, dull backache 5. Cramps that feel like a period 6. Cramps with or without diarrhea If you notice any of the above symptoms, contact our office at [phone] and ask to speak with anurse. After hours, you can call doctors registry at [phone] OR call [facility] at [phone] ask to have the doctor fire prevention forester paged. If you consider this an emergency, dial 9-1-9 or go to your nearest emergency department. NEED HELP? Are you dealing with a violent or abusive relationship? Are you a victim of rape or sexual assult? Call [facility] ([facility] 24 hour Crisis Hotline: 374.296.9841 or 478-549-0771. MANUAL Your Guide to a Healthy manual is now on-line. Visit [email or web address] to download your free copy documented in this encounterBucyrus [facility] Hospital03-29-2023 Miscellaneous Notes* Quick Notes - Carmelita Millan MD - 10/18/2022 8:49 AM EDT RR- VB No. LOF No. CTXS No. Movement: present. Other c/o: nosebleeds usually once a day last few weeks. Trying symptomatic measures Medication list reviewed. Physical Exam See Flow Sheet Abd: soft, nontender, gravid Ext: edema: 1+ A/P 34w0d Estimated Date of Delivery: 11/29/22 Labs: 28 week labs and repeat HIV and hep C due to needle stick f/u in 2 weeks or prn on nicotine patch for tob cessation S<D check growth US Started a new job so hard time attending appointments for awhle. . tdap today Carmelita Millan M.D. documented in this encounterBucyrus [facility] Hospital03-29-2023 Instructions* Patient Instructions* Varsha Vann Fl - 10/18/2022 8:26 AM EDT SEQUENTIAL SCREENINGS The [facility] offers sequential screenings for women who are interested in screenings for chromosomal abnormalities and certain defects during a . The sequential screen combinesultrasound and blood tests to determine the risk of chromosomal abnormalities, including Down's Syndrome (Trisomy 21) and Trisomy 18, as well as open neural tube defects including spina bifida. Ultrasound examination is performed between 11 weeks and 13 weeks gestational age. Blood tests are drawn after the ultrasound and again later in the between 15 and 21 weeks gestational age. Please let your physician know if you are interested in this testing. It will require an appointment withour sonography technician. This is not an ultrasound performed by a physician in our office during a routine visit. SIGNS AND SYMPTOMS OF LABOR 1. Contractions every 10 minutes or more often 2. Clear, pink, or brownish fluid (water) leaking from vagina 3. Feeling that baby is pushing down, pressure 4. Low, dull backache 5. Cramps that feel like a period 6. Cramps with or without diarrhea If you notice any of the above symptoms, contact our office at [phone] and ask to speak with anurse. After hours, you can call doctors registry at [phone] OR call [facility] at [phone] ask to have the doctor fire prevention forester paged. If you consider this an emergency, dial 9-1-9 or go to your nearest emergency department. NEED HELP? Are you dealing with a violent or abusive relationship? Are you a victim of rape or sexual assult? Call [facility] ([place]) 24 hour Crisis Hotline: 879.598.3061 or 633-704-9036. MANUAL Your Guide to a Healthy manual is now on-line. Visit [email or web address] to download your free copy documented in this encounterBucyrus Community Hospital02-20-2023 Miscellaneous Notes* Telephone Encounter - Maria Antonia Olsen LPN - 09/11/2022 4:37 PM EST Patient phones requesting refills as follows: Requested Prescriptions Pending Prescriptions Disp Refills famotidine (PEPCID) 20 mg tablet 90 tablet 1 Sig: Take 1 tablet by mouth at bedtime as needed. ANAYA 08/09/22 NOV no upcoming appt noted Please review and advise. Maria Antonia Olsen LPN documented in this encounterBucyrus [facility] Hospital02-07-2023 Miscellaneous Notes* Telephone Encounter - Maria Antonia Olsen LPN - 08/29/2022 1:40 PM EST Phoned patient and updated her with provider's message. She voiced understanding. * Telephone Encounter - Bibi Saxena APRN.CNP - 08/29/2022 12:10 PM EST Please call patient and let her know I spoke with Dr. Reeves and he recommends Buspar as needed. She may take one tablet three times a day for her panic symptoms. Sent over nicotine patches as well. Bibi Saxena APRN.CNP documented in this encounterBucyrus [facility] Hospital02-07-2023 History of Present illness Narrative* Bibi Saxena APRN.QUANTITATIVE ANALYST MARKETING - 08/29/2022 11:37 AM EST 08/29/2022 Patient presents with: Panic In lieu of an in person visit due to coronavirus 19 pandemic concerns, a telephone/video visit was performed with patient. Patient is aware that I am not fully able to assess symptoms and do a full physical exam including vital signs at this time. Patient consents to the visit SUBJECTIVE: This is a 26 year old that is here today for Above Complaints. Has stopped vaping. Is currently . Has been using the nicotine patches for the last three days. Reports the first day she used two of the 7 mg patches. The last two days has been using the 21mg patches. Reports having panic symptoms from nicotine withdrawal. Reports she can not drive rightnow because she feels her decision making is off from the withdrawal. Requesting clonidine for this. Reports she has taken this in the past for anxiety. Says she can not take antihistamines or hydroxyzine because it makes her hyper. Used to be on Prozac but stopped. PAST MEDICAL HISTORY Diagnosis Date ASCUS with positive high risk HPV cervical 09/26/2019 Asthma 11/29/2011 ATTN DEFICIT NONHYPERACT 11/27/2007 Bulging of intervertebral disc between L4 and L5 and L5 and S1 09/07/2015 Chest pain 04/29/2010 Chlamydia infection 09/23/2013 Depression 05/26/2011 Depression complicating , antepartum 08/02/2012 Generalized anxiety disorder GERD (gastroesophageal reflux disease) Hepatitis C 2017 2018 cured after medication course. High grade squamous intraepithelial cervical dysplasia History of suicide attempt 2015 cutting wrist Juvenile osteochondrosis of lower extremity, excluding foot 2004, resolved Migraine headache 05/26/2011 other Sever's Disease, 2006, resolved Other acne 01/27/2010 Pain in joint, site unspecified AC joint tear, 2005 Patient requested diagnostic testing 04/18/2012 04/18/2012 Patient desires early screening in with sequential testing. Poor support system complicating 04/18/2012 04/18/2012The father of the baby is aware that she is , but does not wish to be involved. Patient states her parents are very supportive. Patient is tearful for some of this visit today due to the father of the baby. She states he has put pressure on her in the past to have an , butloraine does not wish to do that. Patient was given a brochure on the care center and WIC. depression PTSD (post-traumatic stress disorder) Rosacea 01/27/2010 Rubella non-immune status 04/22/2012 Skin cancer Teen 04/22/2012 July 04, 2012 Flu vaccine given Telangiectasia 01/27/2010 Tobacco use disorder ALLERGIES Zyrtec [Cetirizine Hcl] MEDICATIONS Current Outpatient Medications Medication Sig raltegravir (ISENTRESS) 400 mg tablet Take 1 tablet by mouth twice daily for 28 days. emtricitabine-tenofovir disoproxil fumerate (TRUVADA) 200-300 mg per tablet Take 1 tablet by mouth once daily for 28 days. ondansetron orally disintegrating (ZOFRAN ODT) 4 mg disintegrating tablet Take 1 tablet by mouth every 8 hours as needed for nausea/vomiting. verapamil (CALAN, ISOPTIN) 80 mg tablet Take 1 tablet by mouth three times daily. Magnesium Oxide 420 mg tab Take 1 tablet by mouth once daily. metoclopramide HCl (REGLAN) 10 mg tablet Take 1 tablet by mouth three times daily as needed (with tylenol for migraine). calcium carbonate/vitamin D3 (CALCIUM 500 WITH D ORAL) Take by mouth. PNV no.95/ferrous fum/folic ac ( ORAL) Take by mouth. albuterol HFA (PROAIR HFA) 90 mcg/actuation inhaler Inhale 2 Puffs as instructed every 4 hours as needed for wheezing/shortness of breath. Used for seasonal allergies nicotine (NICODERM) 7 mg/24 hr Apply 1 Patch as directed every 24 hours for 14 days. FLUoxetine (PROZAC) 20 mg capsule Take 1 capsule by mouth once daily. (Patient not taking: Reportedon 05/23/2022) famotidine (PEPCID) 20 mg tablet Take 1 tablet by mouth at bedtime as needed. No current facility-administered medications for this visit. Medications and allergies reviewed by this provider. SOCIAL HISTORY Social History Tobacco Use Smoking status: Former Packs/day: 1.00 Years: 9.00 Pack years: 9.00 Types: Cigarettes Smokeless tobacco: Current Tobacco comments: Vapes Vaping Use Vaping Use: current everyday user Substances: Nicotine Devices: Pre-filled or refillable cartridge Substance Use Topics Alcohol use: Not Currently Drug use: Yes Types: Heroin, Marijuana Comment: Patient states I have used multiple drugs in the past REVIEW OF SYSTEMS All other reviewed and negative other than HPI. OBJECTIVE: LMP 02/22/2022 (Approximate) . Vital signs reviewed by this provider. APPEARANCE Well appearing, alert, in no acute distress, well-hydrated, well nourished. PSYCH: Posture and motor behavior: normal posture and motor behavior Dress, grooming, personal hygiene: normal dress and grooming Facial expression: good eye contact Speech: normal speech Mood: cheerful Coherency and relevance of thought: normal thought processes Memory: normal memory PNEUMOCOCCAL(1 - PCV) Never done SPIROMETRY Never done INFLUENZA(1) due on 01/19/2023 DEPRESSION ASSESSMENT due on 07/22/2023 DTAP,TDAP,TD(7 - Td or Tdap) due on 08/03/2023 COVID-19 VACCINE(2 - Pfizer series) due on 08/03/2023 ANNUAL PCP TEAM CHRONIC DISEASE VISIT due on 08/29/2023 PAP TESTING due on 12/28/2024 HEPATITIS B Completed HEPATITIS C SCREENING Completed HIV SCREENING Completed ASSESSMENT/PLAN: 1. Panic disorder - ICD9: 300.01, ICD10: F41.0 (primary diagnosis) - discussed with patient would not recommend clonidine for anxiety - discussed medication options with Dr. Reeves, he recommended Buspar - BUSPIRONE 5 MG TABLET - follow-up if symptoms fail to improve - continue with the 21 mg nicotine patches 2. 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 Patient advised if symptoms do not improve or if symptoms worsen sooner, to contact their primary care physician. Potential red flag symptoms discussed with the patient. Reviewed appropriate action plan to take if red flag symptoms occur. Patient agreeable to treatment plan. I spent a total of 20 minutes on the date of the service which included preparing to see the patient, [id number] patient care, completing clinical documentation, obtaining and/or reviewing separately obtained history, performing a medically appropriate examination, counseling and educating the pat ient/family/caregiver, ordering medications, tests, or procedures, and communicating with other HCPs (not separately reported). documented in this encounterBucy[facility]01-24-2023 Miscellaneous Notes* Telephone Encounter - Aliyah Khoury RN - 08/15/2022 9:45 AM EST Patient notified of the below information. Declines wanting to take the medication. She will have the lab work done only. Aliyah Khoury RN * Telephone Encounter - Chey Melgar APRN.CNM - 08/15/2022 9:30 AM EST Medication needed to be started within 72hrs after exposure. This is up to her. Infectious disease felt it was safe for for risks vs benefit. This is up to the patient. If she would like a visit with a provider to further discuss we can set that up with infectious disease and get a virtual visit. Otherwise, she can just complete the testing. Risk of lam HIV is still potential but her decision. Please let me know if anything further. Thank you, Chey Melgar APRN.CNM * Telephone Encounter - Earle Munoz LPN - 08/14/2022 1:18 PM EST Pt returned call and stated that she does not feel that this medication is necessary. She wants to talk with her partner. Pt stated that she has talked with the person who's house she was cleaning and that person stated that she tested negative for HIV, the concern is the Hep C. She stated that shewill get tested as directed but is very fearful of the side effects from the medication mentioned. Please advise further. Please advise how to proceed from here. Earle Munoz LPN * Telephone Encounter - Patricia Lakhani RN - 08/14/2022 12:40 PM EST See also W[employer] message sent to patient by Dr. Seay today with recommendations after provider spoke with infectious disease. See if patient is willing to start medications? Will need to route to provider fire prevention forester. Patricia Lakhani RN * Telephone Encounter - Patricia Lakhani RN - 08/14/2022 9:11 AM EST Left message to call office. Patricia Lakhani RN * Telephone Encounter - Chrissy Seay MD - 08/12/2022 10:42 AM EST Patient called after hours line last night 08/11/21 at 10 PM with a needle stick injury. She is 24 weeks . 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 She was cleaning her friends house last night when she sustained the needle stick injury. She says her friend has a h/o drug use and is hepatitis C positive. She reports her friend is currently at an inpatient recovery facilityfor drug use. She says she was admitted 2 weeks ago and her friend had blood work at that time showing she is positive for hepatitis C and negative for HIV. She says she was bleaching the kitchen cabinets when the needle stuck her finger. The needle did not appear dirty to her and did not have blood present on it. She thinks the needle was soaking in bleach for several minutes prior to the stick.The needle was stuck in the cabinet and as she wiped her hand down she stuck herself. The stick wasdeep enough to draw up a small amount of blood. Discussed safest option and recommendation would be to go to the nearest ER for blood work for Hep B, Hep C, and HIV screening and have an ID consult to see if PEP for HIV is appropriate. She declines going to the ER at this time as she states she is certain her friend was negative for HIV 2 weeks ago. Labs placed and E-consult to ID. Will follow up with patient Sunday to see if she did go to theER over the weekend, and make sure she had her labs done. She is aware she will need repeat labs inseveral weeks as well. documented in this encounterBu[facility]01-23-2023 Miscellaneous Notes* Telephone Encounter - Patricia Lakhani RN - 08/14/2022 4:23 PM EST See other phone note from today. Patricia Lakhani RN * Telephone Encounter - Chey Melgar APRN.CNM - 08/14/2022 4:00 PM EST Raltegravir 400mg PO BID for 28 days and Truvada (200/300mg) once daily for 28 days. Did not get response back from e-consult from infections disease but only one dose for postexposure prophylaxis. Please notify patient. Chey Melgar APRN.CNM documented in this encounterBucyrus [facility] Hospital01-23-2023 History of Present illness Narrative* Dani Morgan DO - 08/14/2022 9:53 AM EST Infectious Disease E-Consult Response In response to your eConsult Infectious Disease request for Fadumo Hensley regarding: accidental needlestick, PEP. History of present illness provided through requesting provider documentation and current treatmentplan was reviewed. Based on the patient history provided, my impression is as follows: Fadumo Hensley is a 26 year old woman who received needlestick injury while cleaning a friend's house. Source patient is known Hep C positive but HIV negative. PEP indication involves timing from the needlestick injury. I would recommend raltegravir twice a day and Truvada once a day. This has to be started within 72 hours of the exposure to be effective. I would recommend repeat testing for HIV, Hep C, and Hep B at 6 weeks and 4 months after the exposure. Here is the link to our provider document on PEP, you will need to copy and paste into the browser as I cannot get the hyperlink to function. [email or web address]? sourcedoc=/[facility]/ESIOperationsQuality/Initiatives%20%20Educational%20Documents/HIV%20Post-Expo sure%20Prophylaxis%2 0(PEP)%20Workflow/PRESCRIBER%20Education%20for%20HIV%20Testing%20and%20%20Antire troviral%20Nov%[email or web address].pptx&action=default Specialist appointment needs: No appointment necessary Dani Morgan DO August 14, 2022 documented in this encounterBucyrus [facility] Hospital01-20-2023 Miscellaneous Notes* Telephone Encounter - Jo Ann Wadsworth LPN - 08/11/2022 9:37 PM EST Patient calling regarding hep c exposure, 24 wks . Conferenced to Locationary Service[ ] to speak with provider fire prevention forester for Dr. Magana at phone number ([phone]). Jo Ann Wadsworth LPN documented in this encounterBucyrus [facility] Hospital01-18-2023 History of Present illness Narrative* Debby Reeves MD - 08/09/2022 4:27 PM EST Chief Complaint Patient presents with: Ear Pain: Bilateral ears, and throat pain x 2 weeks HPI Fadumo Hensley is a 26 year old female who presents here today for Above Complaints. Patient is currently 24 weeks . Evaluated at on 07/27 and again by Wendy Rivera CNP on 08/03 for same complaint. Strep testing andHSV testing for blisters on lip were negative on 07/27. Reported improved sore throat on 08/03 with hoarse voice. Advised supportive care on 08/03, but patient sent message about worsening ear pain and sore throat on 08/05 and they started her on Amoxicillin BID x 5 days. Today, patient has been taking the antibiotic as prescribed which has not helped her symptoms. Still has bilateral ear pain, left worse than right, and sore throat. Admits to nasal congestion. Deniesfever/chills, ear drainage, hearing loss, cough, SOB, wheezing, chest congestion, chest pain, lymphadenopathy, sinus pain/pressure, rhinorrhea, new loss of taste/smell. Treating symptoms with tylenol, mucinex lozenges, nasal saline rinse, humidifier. Past medical history, appointments, medications, allergies reviewed. 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 High grade squamous intraepithelial cervical dysplasia History of suicide attempt 2014 cutting wrist Juvenile osteochondrosis of lower extremity, excluding foot 2005, resolved Migraine headache 05/26/2011 other Sever's Disease, 2006, resolved Other acne 01/27/2010 Pain in joint, site unspecified AC joint tear, 2005 Patient requested diagnostic testing 04/18/2012 04/18/2012 Patient desires early screening in with sequential testing. Poor support system complicating 04/18/2012 04/18/2012The father of the baby is aware that she is , but does not wish to be involved. Patient states her parents are very supportive. Patient is tearful for some of this visit today due to the father of the baby. She states he has put pressure on her in the past to have an , butshe does not wish to do that. Patient was given a brochure on the care center and WIC. depression PTSD (post-traumatic stress disorder) Rosacea 01/27/2010 Rubella non-immune status 04/22/2012 Skin cancer Teen 04/22/2012 July 04, 2012 Flu vaccine given Telangiectasia 01/27/2010 Tobacco use disorder Previous Surgical History PAST SURGICAL HISTORY Procedure Laterality Date INSERTION OF IUD 12/02/2013 MIRENA IUD 2019 Removed 12/2021 PAST SURGICAL HISTORY OF 01/01/2010 Removal of 4 Mereta Teeth PAST SURGICAL HISTORY OF basal cell carcinoma removed from scalp Family History FAMILY HISTORY Problem Relation Age of Onset Hypertension Mother Heart Father TRIPLE BYPASS SURGERY Hypertension Father Diabetes Father Diabetes Sister No Known Problems Sister No Known Problems Sister No Known Problems Brother No Known Problems Brother No Known Problems Brother Heart Maternal Grandmother from heart problems Heart Maternal Grandfather from heart problems Cancer Maternal Grandfather lung Hypertension Maternal Grandfather No Known Problems Daughter Patient Allergies ALLERGIES Allergen Reactions Zyrtec [Cetirizine * Intolerance tremors Current Medications Current Outpatient Medications on File Prior to Visit Medication Sig amoxicillin (AMOXIL) 875 mg tablet Take 1 tablet by mouth twice daily for 5 days. ondansetron orally disintegrating (ZOFRAN ODT) 4 mg disintegrating tablet Take 1 tablet by mouth every 8 hours as needed for nausea/vomiting. verapamil (CALAN, ISOPTIN) 80 mg tablet Take 1 tablet by mouth three times daily. Magnesium Oxide 420 mg tab Take 1 tablet by mouth once daily. metoclopramide HCl (REGLAN) 10 mg tablet Take 1 tablet by mouth three times daily as needed (with tylenol for migraine). calcium carbonate/vitamin D3 (CALCIUM 500 WITH D ORAL) Take by mouth. PNV no.95/ferrous fum/folic ac ( ORAL) Take by mouth. albuterol HFA (PROAIR HFA) 90 mcg/actuation inhaler Inhale 2 Puffs as instructed every 4 hours as needed for wheezing/shortness of breath. Used for seasonal allergies famotidine (PEPCID) 20 mg tablet Take 1 tablet by mouth at bedtime as needed. nicotine (NICODERM) 7 mg/24 hr Apply 1 Patch as directed every 24 hours for 14 days. FLUoxetine (PROZAC) 20 mg capsule Take 1 capsule by mouth once daily. (Patient not taking: Reportedon 05/23/2022) No current facility-administered medications on file prior to visit. Social History Social History Tobacco Use Smoking status: Former Packs/day: 1.00 Years: 9.00 Pack years: 9.00 Types: Cigarettes Smokeless tobacco: Current Tobacco comments: Vapes Vaping Use Vaping Use: current everyday user Substances: Nicotine Devices: Pre-filled or refillable cartridge Substance Use Topics Alcohol use: Not Currently Drug use: Yes Types: Heroin, Marijuana Comment: Patient states I have used multiple drugs in the past Review of Symptoms REVIEW OF SYSTEMS See HPI EXAM: BP 110/76 Pulse 101 Temp 36.4 C (97.5 F) Resp 16 Wt 85.3 kg (188 lb) LMP 02/22/2022 (Approximate) SpO2 98% BMI 30.50 kg/m General Appearance: ill appearing, non toxic. Skin: Skin color, texture, turgor normal, no suspicious rashes or lesions. Head: Normocephalic, no masses, lesions, tenderness or abnormalities. Eyes: Anicteric sclera. Pupils are equally round and reactive to light. Extraocular movements are intact. . Ears: External ears normal, canals clear. Nose/Sinuses: no sinus tenderness. Oropharynx: Lips, mucosa, and tongue normal, teeth and gums normal, oropharynx normal. Neck: Supple, no adenopathy; thyroid symmetric, normal size, no bruits. Lungs: Lungs clear to auscultation. No wheezing, rhonchi, rales.. Health Maintenance List PNEUMOCOCCAL(1 - PCV) Never done SPIROMETRY Never done INFLUENZA(1) due on 01/19/2023 DEPRESSION ASSESSMENT due on 07/22/2023 DTAP,TDAP,TD(7 - Td or Tdap) due on 08/03/2023 COVID-19 VACCINE(2 - Pfizer series) due on 08/03/2023 ANNUAL PCP TEAM CHRONIC DISEASE VISIT due on 08/03/2023 PAP TESTING due on 12/28/2024 HEPATITIS B Completed HEPATITIS C SCREENING Completed HIV SCREENING Completed ASSESSMENT/PLAN: 1. Viral URI - ICD9: 465.9, ICD10: J06.9 (primary diagnosis) - Discussed viral etiology and rationale for treatment. - Symptomatic treatment with prn analgesia - Supportive care with fluids and rest - The patient may also use OTC cough and cold meds as needed, warm salt water gargles, throat lozenges and/or OTC throat spray as needed, and nasal saline gtts and suction prn. 2. Pharyngitis, unspecified etiology - ICD9: 462, ICD10: J02.9 - suspect viral - Discussed supportive care treatment with fluids, rest and analgesia. - The patient may also use warm salt water gargles, throat lozenges and/or OTC throat spray as needed. Debby Reeves MD documented [facility] this [facility]23 Miscellaneous Notes* Quick Notes - Sulma Bartholomew APRN.CNM - 08/09/2022 3:07 PM EST S: Fadumo Hensley is a 26 year old female who presents at 24 weeks gestation for a routine visit.Has head congestion and is currently being treated with amoxicillin for possible ear infection. Discussed other medications she can take for congestion. Denies headache, visual changes, chest pain, shortness of breath, vaginal bleeding, leakage of fluid, or dysuria. O: See flow sheet Gen: No apparent distress Abd: Gravid, non tender S=D ASSESSMENT/PLAN: 1. 24 weeks gestation of - ICD9: V22.2, ICD10: Z3A.24 (primary diagnosis) 2. Encounter for supervision of other normal in second trimester - ICD9: V22.1, ICD10: Z34.82 P: 1) PTL precautions reviewed and when to call 2) RTO 4 weeks for JAY with GCT Sulma Bartholomew APRN.CNM documented in this [facility]01-18-2023 Instructions* Patient Instructions* Radha Javier MA - 08/09/2022 2:55 PM EST SEQUENTIAL SCREENINGS [facility] offers sequential screenings for women who are interested in screenings for chromosomal abnormalities and certain defects during a . The sequential screen combinesultrasound and blood tests to determine the risk of chromosomal abnormalities, including Down's Syndrome (Trisomy 21) and Trisomy 18, as well as open neural tube defects including spina bifida. Ultrasound examination is performed between 11 weeks and 13 weeks gestational age. Blood tests are drawn after the ultrasound and again later in the between 15 and 21 weeks gestational age. Please let your physician know if you are interested in this testing. It will require an appointment withour sonography technician. This is not an ultrasound performed by a physician in our office during a routine visit. SIGNS AND SYMPTOMS OF LABOR 1. Contractions every 10 minutes or more often 2. Clear, pink, or brownish fluid (water) leaking from vagina 3. Feeling that baby is pushing down, pressure 4. Low, dull backache 5. Cramps that feel like a period 6. Cramps with or without diarrhea If you notice any of the above symptoms, contact our office at [phone] and ask to speak with anurse. After hours, you can call doctors registry at [phone] OR call [facility] at [phone] ask to have the doctor fire prevention forester paged. If you consider this an emergency, dial [phone] or go to your nearest emergency department. NEED HELP? Are you dealing with a violent or abusive relationship? Are you a victim of rape or sexual assult? Call [facility] ([place]) 24 hour Crisis Hotline: 379.848.4472 or 879-489-7943. MANUAL Your Guide to a Healthy manual is now on-line. Visit [email or web address] to download your free copy documented in this encounterBucyrus [facility]01-14-2023 Miscellaneous Notes* Telephone Encounter - Radha Morales RN - 08/05/2022 7:03 PM EST Reason for call: Severe sore throat and ear pain. Patient wondering if antibiotics would help. 23 weeks . Patient with severe throat and ear pain. Offered to page doctor fire prevention forester but patient unable to locate any open pharmacies in her area for any possible prescriptions tonight. Patient states that she prefers to go to ED tonight. Patient will go to [facility]. Reason for Disposition SEVERE (e.g., excruciating) throat pain Answer Assessment - Initial Assessment Questions 1. ONSET: Sore throat and ear pain only when going to sleep, started 2 weeks ago. Had blisters in mouth at that time. Lost voice on Sunday. Throat and ear pain became more constant and worsened last night. 2. SEVERITY: 8/10- sore throat and bilateral ear pain (right ear worse). Took Tylenol without any relief. 3. STREP EXPOSURE: Denies strep exposure. 4. VIRAL SYMPTOMS: Productive cough, nasal congestion, hoarse voice. 5. FEVER: Denies 6. PUS ON THE TONSILS: No pus on tonsils per patient. 7. OTHER SYMPTOMS: Denies 8. : Currently 23 weeks . Protocols used: Sore [id number] documented in this encounterBu[facility]01-12-2023 History of Present illness Narrative* Wendy Rivera APRN.QUANTITATIVE ANALYST MARKETING - 08/03/2022 3:00 PM EST Chief Complaint Patient presents with: lost voice: Started getting raspy Pamela night lost it yesterday, sore is sore when wakes up, earssore no fever chills or body aches a week ago had blisters in mouth came in had tested. HPI Fadumo Hensley is a 26 year old female who presents here today for Above Complaints.. Fadumo is an established patient of Dr. Leandro MD. Fadumo is a new patient to me today. Concerns today... Seen in urgent care on 07/27/22 d/t sore throat and blisters to lower lips. HSV testing was negative.Strep testing was negative. Encouraged supportive care treatment. Currently.. Blisters improved. Sore throat improved. Pt woke up with hoarse throat yesterday morning. Losing her voice. No cough. Some nasal congestion started today. Recently influenza A+ beginning of June. Given Tamiflu. Symptoms completely resolved. No fever/chills. Ears feel sore and full. No other concerns or complaints. Past medical history, appointments, medications, allergies reviewed. 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 High grade squamous intraepithelial cervical dysplasia History of suicide attempt 2015 cutting wrist Juvenile osteochondrosis of lower extremity, excluding foot 2004, resolved Migraine headache 05/26/2011 other Sever's Disease, 2007, resolved Other acne 01/27/2010 Pain in joint, site unspecified AC joint tear, 2005 Patient requested diagnostic testing 04/18/2012 04/18/2012 Patient desires early screening in with sequential testing. Poor support system complicating 04/18/2012 04/18/2012The father of the baby is aware that she is , but does not wish to be involved. Patient states her parents are very supportive. Patient is tearful for some of this visit today due to the father of the baby. She states he has put pressure on her in the past to have an , butshe does not wish to do that. Patient was given a brochure on the care center and WIC. depression PTSD (post-traumatic stress disorder) Rosacea 01/27/2010 Rubella non-immune status 04/22/2012 Skin cancer Teen 04/22/2012 July 04, 2012 Flu vaccine given Telangiectasia 01/27/2010 Tobacco use disorder Previous Surgical History PAST SURGICAL HISTORY Procedure Laterality Date INSERTION OF IUD 12/02/2013 MIRENA IUD 2019 Removed 12/2021 PAST SURGICAL HISTORY OF 01/01/2010 Removal of 4 Mereta Teeth PAST SURGICAL HISTORY OF basal cell carcinoma removed from scalp Family History FAMILY HISTORY Problem Relation Age of Onset Hypertension Mother Heart Father TRIPLE BYPASS SURGERY Hypertension Father Diabetes Father Diabetes Sister No Known Problems Sister No Known Problems Sister No Known Problems Brother No Known Problems Brother No Known Problems Brother Heart Maternal Grandmother from heart problems Heart Maternal Grandfather from heart problems Cancer Maternal Grandfather lung Hypertension Maternal Grandfather No Known Problems Daughter Patient Allergies ALLERGIES Allergen Reactions Zyrtec [Cetirizine * Intolerance tremors Current Medications Current Outpatient Medications on File Prior to Visit Medication Sig ondansetron orally disintegrating (ZOFRAN ODT) 4 mg disintegrating tablet Take 1 tablet by mouth every 8 hours as needed for nausea/vomiting. verapamil (CALAN, ISOPTIN) 80 mg tablet Take 1 tablet by mouth three times daily. Magnesium Oxide 420 mg tab Take 1 tablet by mouth once daily. metoclopramide HCl (REGLAN) 10 mg tablet Take 1 tablet by mouth three times daily as needed (with tylenol for migraine). calcium carbonate/vitamin D3 (CALCIUM 500 WITH D ORAL) Take by mouth. PNV no.95/ferrous fum/folic ac ( ORAL) Take by mouth. albuterol HFA (PROAIR HFA) 90 mcg/actuation inhaler Inhale 2 Puffs as instructed every 4 hours as needed for wheezing/shortness of breath. Used for seasonal allergies nicotine (NICODERM) 7 mg/24 hr Apply 1 Patch as directed every 24 hours for 14 days. FLUoxetine (PROZAC) 20 mg capsule Take 1 capsule by mouth once daily. (Patient not taking: Reportedon 05/23/2022) famotidine (PEPCID) 20 mg tablet Take 1 tablet by mouth at bedtime as needed. No current facility-administered medications on file prior to visit. Social History Social History Tobacco Use Smoking status: Former Packs/day: 1.00 Years: 9.00 Pack years: 9.00 Types: Cigarettes Smokeless tobacco: Current Tobacco comments: Vapes Vaping Use Vaping Use: current everyday user Substances: Nicotine Devices: Pre-filled or refillable cartridge Substance Use Topics Alcohol use: Not Currently Drug use: Yes Types: Heroin, Marijuana Comment: Patient states I have used multiple drugs in the past REVIEW OF SYSTEMS: as above Reviewed relevant PMHx, PSHx, Social Hx, current medications and allergies. Review of Symptoms REVIEW OF SYSTEMS See HPI. All other systems are negative. EXAM: BP 110/60 (BP Site: Left Arm, BP Position: Sitting, BP Cuff Size: Regular Adult) Pulse 109 Temp37 C (98.6 F) Resp 16 Wt 86.9 kg (191 lb 9.6 oz) LMP 02/22/2022 (Approximate) SpO2 95% BMI 31.09 kg/m General Appearance: Well appearing, alert, in no acute distress, well-hydrated, well nourished.. Skin: Skin color, texture, turgor normal, no suspicious rashes or lesions. Head: Normocephalic, no masses, lesions, tenderness or abnormalities. Eyes: Anicteric sclera. Pupils are equally round and reactive to light. Extraocular movements are intact. . Ears: External ears normal, canals clear, Positive findings: R TM: normal and bulging, L TM: normaland bulging. Nose/Sinuses: Nares normal, septum midline, mucosa normal, no drainage or sinus tenderness. Oropharynx: Lips, mucosa, and tongue normal, teeth and gums normal, oropharynx normal. No exudate on tonsils, no abscess. Neck: Supple, no adenopathy; thyroid symmetric, normal size, no bruits. Back:no pain to palpation of vertebrae, good flexion and extension, good range of motion, no muscletenderness, reflexes are 2+ and symmetric, motor and sensory appear to be normal, negative SLR test, no evidence of scoliosis Lungs: Lungs clear to auscultation. No wheezing, rhonchi, rales.. Heart: RRR without murmur, gallop, or rubs. No ectopy. Health Maintenance List PNEUMOCOCCAL(1 - PCV) Never done SPIROMETRY Never done DTAP,TDAP,TD(7 - Td or Tdap) due on 11/14/2017 COVID-19 VACCINE(2 - Pfizer series) due on 07/27/2021 INFLUENZA(1) due on 03/23/2022 DEPRESSION ASSESSMENT Never done ANNUAL PCP TEAM CHRONIC DISEASE VISIT due on 05/31/2023 PAP TESTING due on 12/28/2024 HEPATITIS B Completed HEPATITIS C SCREENING Completed HIV SCREENING Completed ASSESSMENT/PLAN: 1. URI, acute - ICD9: 465.9, ICD10: J06.9 No concerns for ASSET COORDINATOR or strep from PE presentation. Strep was negative 1 week ago in urgent care. Due to being , avoiding antibiotic regimen unless needed. Pt agreeable. - Discussed viral etiology and rationale for treatment. - Symptomatic treatment with prn analgesia - Supportive care with fluids and rest - The patient may also use warm salt water gargles, throat lozenges and/or OTC throat spray as needed and nasal saline gtts and suction prn. - Follow up in 3-5 days if symptoms persist or sooner if worsening of symptoms RTO as needed. Prescription instructions reviewed with patient as applicable. Potential red flag symptoms discussed with the patient. Reviewed appropriate action plan to take if red flag symptoms occur. Patient agreeable to treatment plan. Wendy Tomas APRN.QUANTITATIVE ANALYST MARKETING [address] [place] [address] documented in this encounterBu[facility]01-05-2023 History of Present illness Narrative* Chey Ladd APRN.ANISHA - 07/27/2022 3:13 PM EST This note was created using [employer] Mobiler[employer]. Subjective Fadumo Hensley is a 26 year old female. 26 year old female who is currently 22 weeks () with PMH asthma, migraine, ADD, and depression presents for complaints of illness. Acute onset of symptoms was 3 to 4 days ago +sore throat Two days she started with blisters to lower lips. States 6 days ago she was exposed to hand, foot, and mouth Denies fever or chills. Denies accompanying URI sx. Denies new lotions soaps or medicines Denies prior history of mouth ulcerations. Denies using homeopathic or OTC medications ASSET COORDINATOR. The history is provided by the patient. No educational sign language interpreter was used. Mouth/Lip Problem This is a new problem. Episode onset: 2 days ago. The problem occurs constantly. The problem has been unchanged. Associated symptoms include a sore throat. Pertinent negatives include no abdominal pain, anorexia, arthralgias, change in bowel habit, chest pain, chills, congestion, coughing, diaphoresis, fatigue, fever, headaches, joint swelling, myalgias, nausea, neck pain, numbness, rash, swollenglands, urinary symptoms, vertigo, visual change, vomiting or weakness. Nothing aggravates the symptoms. She has tried nothing for the symptoms. The treatment provided no relief. PAST MEDICAL HISTORY Diagnosis Date ASCUS with positive high risk HPV cervical 09/26/2019 Asthma 11/29/2011 ATTN DEFICIT NONHYPERACT 11/27/2007 Bulging of intervertebral disc between L4 and L5 and L5 and S1 09/07/2015 Chest pain 04/29/2010 Chlamydia infection 09/23/2013 Depression 05/26/2011 Depression complicating , antepartum 08/02/2012 Generalized anxiety disorder GERD (gastroesophageal reflux disease) Hepatitis C 2017 2018 cured after medication course. High grade squamous intraepithelial cervical dysplasia History of suicide attempt 2015 cutting wrist Juvenile osteochondrosis of lower extremity, excluding foot 2004, resolved Migraine headache 05/26/2011 other Sever's Disease, 2006, resolved Other acne 01/27/2010 Pain in joint, site unspecified AC joint tear, 2005 Patient requested diagnostic testing 04/18/2012 04/18/2012 Patient desires early screening in with sequential testing. Poor support system complicating 04/18/2012 04/18/2012The father of the baby is aware that she is , but does not wish to be involved. Patient states her parents are very supportive. Patient is tearful for some of this visit today due to the father of the baby. She states he has put pressure on her in the past to have an , butshe does not wish to do that. Patient was given a brochure on the care center and WIC. depression PTSD (post-traumatic stress disorder) Rosacea 01/27/2010 Rubella non-immune status 04/22/2012 Skin cancer Teen 04/22/2012 July 04, 2012 Flu vaccine given Telangiectasia 01/27/2010 Tobacco use disorder PAST SURGICAL HISTORY Procedure Laterality Date INSERTION OF IUD 12/02/2013 MIRENA IUD 2019 Removed 12/2021 PAST SURGICAL HISTORY OF 01/01/2010 Removal of 4 Mereta Teeth PAST SURGICAL HISTORY OF basal cell carcinoma removed from scalp ALLERGIES Zyrtec [Cetirizine Hcl] MEDICATIONS ondansetron orally disintegrating (ZOFRAN ODT) 4 mg disintegrating tablet Take 1 tablet by mouth every 8 hours as needed for nausea/vomiting. verapamil (CALAN, ISOPTIN) 80 mg tablet Take 1 tablet by mouth three times daily. Magnesium Oxide 420 mg tab Take 1 tablet by mouth once daily. metoclopramide HCl (REGLAN) 10 mg tablet Take 1 tablet by mouth three times daily as needed (with tylenol for migraine). calcium carbonate/vitamin D3 (CALCIUM 500 WITH D ORAL) Take by mouth. PNV no.95/ferrous fum/folic ac ( ORAL) Take by mouth. albuterol HFA (PROAIR HFA) 90 mcg/actuation inhaler Inhale 2 Puffs as instructed every 4 hours as needed for wheezing/shortness of breath. Used for seasonal allergies famotidine (PEPCID) 20 mg tablet Take 1 tablet by mouth at bedtime as needed. nicotine (NICODERM) 7 mg/24 hr Apply 1 Patch as directed every 24 hours for 14 days. FLUoxetine (PROZAC) 20 mg capsule Take 1 capsule by mouth once daily. (Patient not taking: Reportedon 05/23/2022) FAMILY HISTORY Problem Relation Age of Onset Hypertension Mother Heart Father TRIPLE BYPASS SURGERY Hypertension Father Diabetes Father Diabetes Sister No Known Problems Sister No Known Problems Sister No Known Problems Brother No Known Problems Brother No Known Problems Brother Heart Maternal Grandmother from heart problems Heart Maternal Grandfather from heart problems Cancer Maternal Grandfather lung Hypertension Maternal Grandfather No Known Problems Daughter Social History Tobacco Use Smoking status: Former Packs/day: 1.00 Years: 9.00 Pack years: 9.00 Types: Cigarettes Smokeless tobacco: Current Tobacco comments: Vapes Vaping Use Vaping Use: current everyday user Substances: Nicotine Devices: Pre-filled or refillable cartridge Substance Use Topics Alcohol use: Not Currently Drug use: Yes Types: Heroin, Marijuana Comment: Patient states I have used multiple drugs in the past Review of Systems Constitutional: Negative for chills, diaphoresis, fatigue and fever. HENT: Positive for mouth sores and sore throat. Negative for congestion. Eyes: Negative for pain, discharge and itching. Respiratory: Negative for apnea, cough, choking and chest tightness. Cardiovascular: Negative for chest pain, palpitations and leg swelling. Gastrointestinal: Negative for abdominal pain, anorexia, change in bowel habit, nausea and vomiting. Endocrine: Negative for cold intolerance, heat intolerance and polydipsia. Musculoskeletal: Negative for arthralgias, joint swelling, myalgias and neck pain. Skin: Negative for color change, pallor and rash. Allergic/Immunologic: Negative for environmental allergies, food allergies and immunocompromised state. Neurological: Negative for dizziness, vertigo, facial asymmetry, weakness, numbness and headaches. Hematological: Negative for adenopathy. Does not bruise/bleed easily. Psychiatric/Behavioral: Negative for agitation and behavioral problems. Objective BP 116/68 Pulse 109 Temp 36.9 C (98.5 F) (Tympanic) Resp 18 Wt 85.5 kg (188 lb 9.6 oz) LMP 02/22/2022 (Approximate) SpO2 97% BMI 30.60 kg/m Physical Exam Vitals and nursing note reviewed. Constitutional: General: She is not in acute distress. Appearance: Normal appearance. She is normal weight. She is not ill-appearing, toxic-appearing or diaphoretic. HENT: Head: Normocephalic and atraumatic. Right Ear: Ear canal and external ear normal. Left Ear: Ear canal and external ear normal. Nose: Nose normal. No congestion or rhinorrhea. Mouth/Throat: Mouth: Mucous membranes are moist. Pharynx: Posterior oropharyngeal erythema (marked erythema. Uvula midline) present. No oropharyngeal exudate. Comments: Lower lips with ulcerated lesions X 2 Eyes: General: Right eye: No discharge. Left eye: No discharge. Extraocular Movements: Extraocular movements intact. Conjunctiva/sclera: Conjunctivae normal. Pupils: Pupils are equal, round, and reactive to light. Cardiovascular: Rate and Rhythm: Normal rate and regular rhythm. Pulses: Normal pulses. Heart sounds: Normal heart sounds. No murmur heard. No friction rub. Pulmonary: Effort: Pulmonary effort is normal. No respiratory distress. Breath sounds: Normal breath sounds. No stridor. No wheezing, rhonchi or rales. Chest: Chest wall: No tenderness. Abdominal: General: Abdomen is flat. There is no distension. Palpations: Abdomen is soft. There is no mass. Tenderness: There is no abdominal tenderness. There is no right CVA tenderness, left CVA tenderness, guarding or rebound. Hernia: No hernia is present. Musculoskeletal: General: No swelling, tenderness, deformity or signs of injury. Normal range of motion. Cervical back: Normal range of motion and neck supple. No rigidity. Right lower leg: No edema. Left lower leg: No edema. Lymphadenopathy: Cervical: No cervical adenopathy. Skin: General: Skin is warm and dry. Capillary Refill: Capillary refill takes less than 2 seconds. Coloration: Skin is not jaundiced or pale. Findings: No bruising, erythema, lesion or rash. Neurological: General: No focal deficit present. Mental Status: She is alert and oriented to person, place, and time. Cranial Nerves: No cranial nerve deficit. Sensory: No sensory deficit. Motor: No weakness. Coordination: Coordination normal. Gait: Gait normal. Psychiatric: Mood and Affect: Mood normal. Behavior: Behavior normal. Thought Content: Thought content normal. Judgment: Judgment normal. Assessment and Plan ASSESSMENT/PLAN: 1. Pharyngitis, unspecified etiology - ICD9: 462, ICD10: J02.9 (primary diagnosis) X 4 days - suspect viral - Alere Strep Test NEGATIVE, no culture pending - Discussed supportive care treatment with fluids, rest and analgesia. - The patient may also use OTC cough and cold meds as needed, warm salt water gargles, throat lozenges and/or OTC throat spray as needed, and nasal saline gtts and suction prn. - Contagious dz precautions discussed- including considered contagious until on antibiotics for 24 hours - The patient should follow up in 3-5 days if symptoms persist or worsen - Call back if drooling, increased temperature, symptoms of dehydration and/or still sick in one week - STREP A MOLECULAR (POC) 2. Ulcer of lower lip - ICD9: 528.5, ICD10: K13.0 X 2 ulcerated lesions - HSV 1,2/VZV AMP MOLECULAR DETECT-obtained and pending Chey Ladd APRN.CNP documented in this encounterBu[facility]01-[facility]23 Miscellaneous Notes* Telephone Encounter - Sulma Bartholomew APRN.CNM - 07/27/2022 9:32 AM EST Thank you for the update. Agree with plan of care. Sulma Bartholomew APRN.CNM * Telephone Encounter - Aliyah Khoury RN - 07/27/2022 9:21 AM EST Patient called back. Spoke with [facility] [employer]. She is ok with scanning patient today. Patient notified. She plans to go to PCP or Urgent Care after. Aliyah Khoury RN * Telephone Encounter - Aliyah Khoury RN - 07/27/2022 8:52 AM EST 22w1d Patient has her anatomy US scheduled today at 10 AM. States she was exposed to her friend's daughter who has either ojkw-hgvw-fbgio disease or chicken pox. Patient now has bumps in her mouth and her throat is sore. She assumes it was vogz-jvla-idikg. Asking if she can keep her US appointment today if she wears a mask. Aliyah Khoury RN documented in this encounterBu[facility]12-15-2022 Miscellaneous Notes* Quick Notes - Sulma Bartholomew APRN.CNM - 07/06/2022 5:19 PM EST Fadumo Hensley is a 26 year old female who presents at 19w1d for a routine visit. Patient has notbeen seen in office for 7 weeks. Reports long stents of sickness flu, then another viral infection.Just starting to finally feel better. Discussed importance of regular visits. Positive movement. Continues to have daily headaches- reports headaches as migraines with aura. Seeing zigzag lights in corner of eye at times before headache starts. Seen by PCP and started on medications(Verapamil and Magnesium ), but continues to have daily headaches. Sometimes headaches are manageable but other times not. Discussed consult to headache clinic and possible neurology consult. Patientopen to headache clinic. Denies any recent chest pain, shortness of breath, vaginal bleeding, leakage of fluid, or dysuria. AFP blood work today. Still vaping. Cessation encouraged. Size equal to dates. PTL/ Bleeding precautions reviewed. RTC in 1-2 weeks for anatomy US. And 4 weeks for JAY. Sulma Bartholomew APRN.CNM documented in this encounterBu[facility]12-15-2022 Instructions* Patient Instructions* Malik Kee Casket Trimmer - 07/06/2022 4:21 PM EST SEQUENTIAL SCREENINGS [facility] offers sequential screenings for women who are interested in screenings for chromosomal abnormalities and certain defects during a . The sequential screen combinesultrasound and blood tests to determine the risk of chromosomal abnormalities, including Down's Syndrome (Trisomy 21) and Trisomy 18, as well as open neural tube defects including spina bifida. Ultrasound examination is performed between 11 weeks and 13 weeks gestational age. Blood tests are drawn after the ultrasound and again later in the between 15 and 21 weeks gestational age. Please let your physician know if you are interested in this testing. It will require an appointment withour sonography technician. This is not an ultrasound performed by a physician in our office during a routine visit. SIGNS AND SYMPTOMS OF LABOR 1. Contractions every 10 minutes or more often 2. Clear, pink, or brownish fluid (water) leaking from vagina 3. Feeling that baby is pushing down, pressure 4. Low, dull backache 5. Cramps that feel like a period 6. Cramps with or without diarrhea If you notice any of the above symptoms, contact our office at [phone] and ask to speak with anurse. After hours, you can call doctors registry at [phone] OR call [facility] at [phone] ask to have the doctor fire prevention forester paged. If you consider this an emergency, dial 9-1-0 or go to your nearest emergency department. NEED HELP? Are you dealing with a violent or abusive relationship? Are you a victim of rape or sexual assult? Call [facility] ([place]) 24 hour Crisis Hotline: 819.639.7455 or 308-653-9266. MANUAL Your Guide to a Healthy manual is now on-line. Visit [email or web address] to download your free copy documented in this encounterBucyrus Community Hospital12-14-2022 Miscellaneous Notes* Telephone Encounter - Debby Reeves MD - 07/05/2022 3:44 PM EST Reviewed. Let us know if she needs this sent somewhere else. * Telephone Encounter - Sienna Hidalgo LPN - 07/05/2022 3:34 PM EST Patient telephoned and states she found the verapamil and took it about two hours ago. States she should have enough now until [facility] gets [facility]. Says it has helped her headaches some but still feels terrible and will make an appointment in the next couple days if it doesn't ease up. Sienna Hidalgo LPN * Telephone Encounter - Debby Reeves MD - 07/05/2022 2:41 PM EST Agree with checking pharmacies. Will call in where available when she gets back to us. * Telephone Encounter - Yvette Cunningham RN - 07/05/2022 2:10 PM EST Patient calling to say Verapamil is unavailable at [facility]. She has missed several doses due to had the flu and didn't take and has been out of medication and now can't get a refill. Shesays she has been having migraine symptoms with some intermittent lines showing in her vision. She says she has seen dots and flashes of light before but not lines. She thinks resuming Verapamil would help. Advised patient to contact other local pharmacies to check for availability. Yvette Cunningham RN documented in this encounterBucyrus [facility] Hospital12-14-2022 Miscellaneous Notes* Telephone Encounter - Judith Carlos Ma - 07/05/2022 11:19 AM EST Pt notified via [employer] that Verapamil was refilled to [facility] on 05/31/22 with refills. Judith Carlos Ma documented in this encounterBucyrus Community Hospital12-02-2022 Instructions* Patient Instructions* Wai Magallon APRN.ANISHA - 06/23/2022 5:49 PM EST How to Manage Common Symptoms Associated with COVID for Adults Fever- Fever is a temperature over 100.4 F and can occur when the body is fighting an infection. Tohelp treat a fever: Drink plenty of fluids and stay well hydrated. Eat small amounts of easy to digest food. Rest. Your body needs rest to recover, but getting up and moving around the house frequently is a good idea. You should try to continue doing your normal daily activities (bathing, toileting, grooming, cooking), though you will probably feel tired, and need to rest often. Avoid any heavy activity or exercise, as this will increase your body temperature. Dress in light clothing and stay covered in a light sheet. Keep the room temperature cool. Take a slightly warm (not cold or cool) bath, or apply damp washcloths to the forehead and wrists. Cough- Cough is a common symptom associated with COVID and can be bothersome. To help treat a cough: Stay well hydrated. Try warm water or tea with lemon and/or honey to help soothe the cough. Use a humidifier to add moisture to the air. Try a product with menthol, like a cough drop or a rub for your chest such as Vicks, which can helpreduce cough. Try cough drops. Avoid smoking and other strong odors or perfumes. Try breathing exercises to keep your lungs open and clear. Take a big deep breath through your noseand hold for 5 seconds before slowly releasing. Repeat frequently, while you are awake. Congestion- Runny nose or nasal congestion can occur with COVID. Treatment can help relieve symptoms: Try OTC nasal saline spray, or nasal saline rinse to relieve mucus congestion. Nasal strips can help keep nasal passages open, to increase airflow. Elevating your head with an extra pillow in bed can help reduce congestion. Using a humidifier can increase moisture in the air, and make breathing easier. Sore Throat- Another common symptom with COVID, can be managed at home by: Stay well hydrated. Gargle with salt water - mix teaspoon salt with 1 cup of warm water and gargle. This helps to loosen mucus in the back of the throat and may reduce discomfort. Try ice chips, popsicles or lozenges to soothe the throat. Nausea/Vomiting/Diarrhea- These are common symptoms, and staying hydrated is most important. If you are nauseous or vomiting, start with small sips of water every 10-15 minutes and increase astolerated. You can try sucking an ice cube too. If tolerating, you can try pedialyte or Gatorade, or flat sprite or derick-jackie. Start slowly and increase as you are able to. Instead of meals, try smaller, more frequent snacks. Try eating bland foods like crackers, toast, rice, and applesauce. Avoid spicy, greasy or fried foods and dairy containing foods. Even if you aren't feeling hungry due to lack of smell or taste, it is important to try to take in some food when you are able. After drinking and eating, rest in an upright position for up to two hours as needed to help decrease nauseous feelings. Try closing your eyes, avoid moving and watching TV. Avoid strong odors that can make you feel more nauseated. When to seek emergency medical attention Look for emergency warning signs for COVID-19. If having any of these symptoms, seek emergency medical care immediately: Trouble breathing Persistent pain or pressure in the chest New confusion Inability to wake or stay awake Bluish lips or face *This list is not all possible symptoms. Please call your medical provider for any other symptoms that are severe or concerning to you. documented in this encounterBucyrus [facility] Hospital12-02-2022 History of Present illness Narrative* Wai Magallon APRN.CNP - 06/23/2022 5:34 PM EST Subjective HPI Nontoxic-appearing 17-week female presents to urgent care with chief complaint of fever and cough. Duration of symptoms 2 days. Patient states she did have nasal congestion for 7 days prior to flulike symptoms starting. Flulike symptoms have been present only for 2 days. Associated symptoms with today's chief complaint are on and off headache, muscle aches, fatigue, nonproductive cough, and fever. Patient stated symptoms started abruptly. Patient states they have used khje-cos-cwbcewg medication with some success. Patient states they were in contact with individuals who were diagnosed with influenza A. Patient denies any pain at this time. Patient denies any high fevers, visual changes, visual disturbance, shortness of breath, rash, exercise intolerance, pleuritic pain, productive cough, abdominal pain, hemoptysis, blood in vomit, vaginal discharge, chest pain, or change in bowel or bladder habits. Past medical history prescription medication use allergies reviewed. .Patient presents with: Cough: Congestion, vomiting, LORNA ear pain, weakness, drainage x9 days PAST MEDICAL HISTORY Diagnosis Date ASCUS with positive high risk HPV cervical 09/26/2019 Asthma 11/29/2011 ATTN DEFICIT NONHYPERACT 11/27/2007 Bulging of intervertebral disc between L4 and L5 and L5 and S1 09/07/2015 Chest pain 04/29/2010 Chlamydia infection 09/23/2013 Depression 05/26/2011 Depression complicating , antepartum 08/02/2012 Generalized anxiety disorder GERD (gastroesophageal reflux disease) Hepatitis C 2017 2018 cured after medication course. High grade squamous intraepithelial cervical dysplasia History of suicide attempt 2015 cutting wrist Juvenile osteochondrosis of lower extremity, excluding foot 2005, resolved Migraine headache 05/26/2011 other Sever's Disease, 2006, resolved Other acne 01/27/2010 Pain in joint, site unspecified AC joint tear, 2005 Patient requested diagnostic testing 04/18/2012 04/18/2012 Patient desires early screening in with sequential testing. Poor support system complicating 04/18/2012 04/18/2012The father of the baby is aware that she is , but does not wish to be involved. Patient states her parents are very supportive. Patient is tearful for some of this visit today due to the father of the baby. She states he has put pressure on her in the past to have an , butshe does not wish to do that. Patient was given a brochure on the care center and WIC. depression PTSD (post-traumatic stress disorder) Rosacea 01/27/2010 Rubella non-immune status 04/22/2012 Skin cancer Teen 04/22/2012 July 04, 2012 Flu vaccine given Telangiectasia 01/27/2010 Tobacco use disorder PAST SURGICAL HISTORY Procedure Laterality Date INSERTION OF IUD 12/02/2013 MIRENA IUD 2019 Removed 12/2021 PAST SURGICAL HISTORY OF 01/01/2010 Removal of 4 Mereta Teeth PAST SURGICAL HISTORY OF basal cell carcinoma removed from scalp ALLERGIES Zyrtec [Cetirizine Hcl] MEDICATIONS verapamil (CALAN, ISOPTIN) 80 mg tablet Take 1 tablet by mouth three times daily. Magnesium Oxide 420 mg tab Take 1 tablet by mouth once daily. metoclopramide HCl (REGLAN) 10 mg tablet Take 1 tablet by mouth three times daily as needed (with tylenol for migraine). calcium carbonate/vitamin D3 (CALCIUM 500 WITH D ORAL) Take by mouth. PNV no.95/ferrous fum/folic ac ( ORAL) Take by mouth. albuterol HFA (PROAIR HFA) 90 mcg/actuation inhaler Inhale 2 Puffs as instructed every 4 hours as needed for wheezing/shortness of breath. Used for seasonal allergies nicotine (NICODERM) 7 mg/24 hr Apply 1 Patch as directed every 24 hours for 14 days. FLUoxetine (PROZAC) 20 mg capsule Take 1 capsule by mouth once daily. (Patient not taking: Reportedon 05/23/2022) famotidine (PEPCID) 20 mg tablet Take 1 tablet by mouth at bedtime as needed. FAMILY HISTORY Problem Relation Age of Onset Hypertension Mother Heart Father TRIPLE BYPASS SURGERY Hypertension Father Diabetes Father Diabetes Sister No Known Problems Sister No Known Problems Sister No Known Problems Brother No Known Problems Brother No Known Problems Brother Heart Maternal Grandmother from heart problems Heart Maternal Grandfather from heart problems Cancer Maternal Grandfather lung Hypertension Maternal Grandfather No Known Problems Daughter Social History Tobacco Use Smoking status: Former Packs/day: 1.00 Years: 9.00 Pack years: 9.00 Types: Cigarettes Smokeless tobacco: Never Tobacco comments: Vapes Vaping Use Vaping Use: current everyday user Substances: Nicotine Devices: Pre-filled or refillable cartridge Substance Use Topics Alcohol use: Not Currently Drug use: Yes Types: Heroin, Marijuana Comment: Patient states I have used multiple drugs in the past BP 106/78 Pulse 112 Temp 37.5 C (99.5 F) Resp 18 Wt 83.6 kg (184 lb 6.4 oz) LMP 02/22/2022 (Approximate) SpO2 99% BMI 29.92 kg/m Hr 96 Review of Systems Constitutional: Positive for chills, fever and malaise/fatigue. HENT: Positive for congestion and sore throat. Negative for ear discharge, ear pain and sinus pain. Eyes: Negative for blurred vision, pain, discharge and redness. Respiratory: Positive for cough. Negative for hemoptysis, sputum production, shortness of breath, wheezing and stridor. Cardiovascular: Negative for chest pain. Gastrointestinal: Positive for nausea and vomiting. Negative for abdominal pain and diarrhea. Musculoskeletal: Positive for myalgias. Skin: Negative for itching and rash. Neurological: Positive for headaches. Negative for dizziness. Objective Physical Exam Constitutional: General: She is not in acute distress. Appearance: She is not diaphoretic. HENT: Head: Normocephalic. Nose: Congestion present. Mouth/Throat: Mouth: Mucous membranes are moist. Pharynx: Oropharynx is clear. No oropharyngeal exudate or posterior oropharyngeal erythema. Eyes: Conjunctiva/sclera: Conjunctivae normal. Pupils: Pupils are equal, round, and reactive to light. Cardiovascular: Rate and Rhythm: Normal rate and regular rhythm. Heart sounds: Normal heart sounds. Pulmonary: Effort: Pulmonary effort is normal. No tachypnea, accessory muscle usage or respiratory distress. Breath sounds: Normal breath sounds. No stridor. No wheezing, rhonchi or rales. Abdominal: Palpations: Abdomen is soft. Tenderness: There is no abdominal tenderness. There is no guarding or rebound. Musculoskeletal: Cervical back: Normal range of motion and neck supple. No rigidity or tenderness. Lymphadenopathy: Cervical: No cervical adenopathy. Skin: General: Skin is warm and dry. Neurological: Mental Status: She is alert and oriented to person, place, and time. ASSESSMENT/PLAN: 1. Viral illness - ICD9: 079.99, ICD10: B34.9 - COVID WITH FLUA+B, ROUTINE Patient nontoxic-appearing. Vital signs within normal limits. Is staying hydrated. Patient diagnosed with viral illness. Suspicious of influenza A due to recent sick contacts. Patient is currently within 48-hour window for antiviral therapy. Patient is 17 weeks . With high risk for influenza infection patient will be placed on Tamiflu. Risk and benefit of medication discussed. Will discontinue if influenza test is negative. We will contact IMPROVEMENT COORDINATOR if positive for influenza A. Follow-up with PCP 2 to 3 days symptoms are not improving. Red flags for prompt reevaluation discussed. Patientwas educated on supportive therapies. Patient was instructed to immediately proceed to emergency room for any new, worsening, or symptoms lasting longer than anticipated. The patient's clinical presentation is otherwise unremarkable at this time. Based on exam and clinical finding, the patient is stable for discharge. Plan of care was discussed with patient. Patient verbalizes understanding and agrees to plan of care. This note was generated using [employer] software. It may contain errors in wording, punctuation, or spelling. Wai Magallon APRN.ANISHA documented in this encounterBucyrus Community Hospital11-27-2022 Miscellaneous Notes* Telephone Encounter - Susana Hill RN - 06/18/2022 1:28 AM EST Reason for Call: Patient calling stating that she has cold symptoms and a sore throat . Patient is 16 weeks and would like to know if she can take a cold medication that she has at home. Outcome: Patient conference to Provider answering Service to page Provider fire prevention forester documented in this encounterBucyrus Community Hospital11-23-2022 Miscellaneous Notes* Telephone Encounter - Bibi Saxena APRN.CNP - 06/14/2022 11:01 AM EST Reviewed. Bibi Saxena APRN.CNP * Telephone Encounter - Agnieszka Taylor LPN - 06/14/2022 10:50 AM EST Pt called and states she has a head cold and is . She was asking what can be medication canbe taken. Pt asked for a virtual apt. Booked for today. Agnieszka Taylor LPN documented in this encounterBucyrus Community Hospital11-09-2022 History of Present illness Narrative* Debby Reeves MD - 05/31/2022 8:40 AM EST Chief Complaint Patient presents with: Headache HPI: This Team Access Model visit is a virtual/phone encounter. It required patient-provider interaction for the medical decision making as documented below. Patient was offered a virtual/telemedicine appointment in lieu of an office visit due to recommendations to reduce patient exposure to COVID-19. Patient is aware of limitations of performing the visit without a face to face visit in the office setting and agrees. Fadumo Hensley is a 26 year old female at 14/1 weeks who presents here today for Above Complaints. Migraine: Pt taking magnesium oxide 420 mg daily and Reglan 10 mg 1 pill TID prn along with 1,000 mg Tylenol TID for migraine control. Pt was seen on 05/23/22 for headache she had x 1 month and was started on metoclopramide 10 mg to take along with Tylenol. Still needing to take this regimen 3 timesper day. States that this does improve her migraines, but makes her tired. Pain still seems to be ac ross forehead or back of head, behind the eyes or side of head. Pain can radiate into the neck. Light sensitivity, occ flashes of light in vision. She has tried warm compress to her head and face with no relief. Is able to get some sleep with use of Unisom or Melatonin. Has been to ER in past monthfor headache where she was given iv fluids and benadryl cocktail which did help temporarily. Takes Vitamin B6 to help nausea/vomiting which she has had with her . She denies any facial drooping, weakness, or slurred speech. No new triggers. Would like to try migraine prophylaxis and is agreeable to verapmil TID. Past medical history, appointments, medications, allergies reviewed. 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 High grade squamous intraepithelial cervical dysplasia History of suicide attempt 2014 cutting wrist Juvenile osteochondrosis of lower extremity, excluding foot 2004, resolved Migraine headache 05/26/2011 other Sever's Disease, 2006, resolved Other acne 01/27/2010 Pain in joint, site unspecified AC joint tear, 2006 Patient requested diagnostic testing 04/18/2012 04/18/2012 Patient desires early screening in with sequential testing. Poor support system complicating 04/18/2012 04/18/2012The father of the baby is aware that she is , but does not wish to be involved. Patient states her parents are very supportive. Patient is tearful for some of this visit today due to the father of the baby. She states he has put pressure on her in the past to have an , butshe does not wish to do that. Patient was given a brochure on the care center and WIC. depression PTSD (post-traumatic stress disorder) Rosacea 01/27/2010 Rubella non-immune status 04/22/2012 Skin cancer Teen 04/22/2012 July 04, 2012 Flu vaccine given Telangiectasia 01/27/2010 Tobacco use disorder Previous Surgical History PAST SURGICAL HISTORY Procedure Laterality Date INSERTION OF IUD 12/02/2013 MIRENA IUD 2019 Removed 12/2021 PAST SURGICAL HISTORY OF 01/01/2010 Removal of 4 Mereta Teeth PAST SURGICAL HISTORY OF basal cell carcinoma removed from scalp Family History FAMILY HISTORY Problem Relation Age of Onset Hypertension Mother Heart Father TRIPLE BYPASS SURGERY Hypertension Father Diabetes Father Diabetes Sister No Known Problems Sister No Known Problems Sister No Known Problems Brother No Known Problems Brother No Known Problems Brother Heart Maternal Grandmother from heart problems Heart Maternal Grandfather from heart problems Cancer Maternal Grandfather lung Hypertension Maternal Grandfather No Known Problems Daughter Patient Allergies ALLERGIES Allergen Reactions Zyrtec [Cetirizine * Intolerance tremors Current Medications Current Outpatient Medications on File Prior to Visit Medication Sig Magnesium Oxide 420 mg tab Take 1 tablet by mouth once daily. metoclopramide HCl (REGLAN) 10 mg tablet Take 1 tablet by mouth three times daily as needed (with tylenol for migraine). calcium carbonate/vitamin D3 (CALCIUM 500 WITH D ORAL) Take by mouth. PNV no.95/ferrous fum/folic ac ( ORAL) Take by mouth. albuterol HFA (PROAIR HFA) 90 mcg/actuation inhaler Inhale 2 Puffs as instructed every 4 hours as needed for wheezing/shortness of breath. Used for seasonal allergies nicotine (NICODERM) 7 mg/24 hr Apply 1 Patch as directed every 24 hours for 14 days. FLUoxetine (PROZAC) 20 mg capsule Take 1 capsule by mouth once daily. (Patient not taking: Reportedon 05/23/2022) famotidine (PEPCID) 20 mg tablet Take 1 tablet by mouth at bedtime as needed. No current facility-administered medications on file prior to visit. Social History Social History Tobacco Use Smoking status: Former Packs/day: 1.00 Years: 9.00 Pack years: 9.00 Types: Cigarettes Smokeless tobacco: Never Tobacco comments: Vapes Vaping Use Vaping Use: current everyday user Substances: Nicotine Devices: Pre-filled or refillable cartridge Substance Use Topics Alcohol use: Not Currently Drug use: Yes Types: Heroin, Marijuana Comment: Patient states I have used multiple drugs in the past Review of Symptoms REVIEW OF SYSTEMS See HPI EXAM: LMP 02/22/2022 (Approximate) General Appearance: Well appearing, alert, in no acute distress, well-hydrated, well nourished.. Skin: Skin color, texture, turgor normal, no suspicious rashes or lesions. Neurologic: Facial movements normal without slurred speech, facial droop. Health Maintenance List PNEUMOCOCCAL(1 - PCV) Never done SPIROMETRY Never done DTAP,TDAP,TD(7 - Td or Tdap) due on 11/14/2017 DEPRESSION ASSESSMENT Never done COVID-19 VACCINE(2 - Pfizer series) due on 07/27/2021 INFLUENZA(1) due on 03/23/2022 ANNUAL PCP TEAM CHRONIC DISEASE VISIT due on 05/23/2023 PAP TESTING due on 12/28/2024 HEPATITIS B Completed HEPATITIS C SCREENING Completed HIV SCREENING Completed ASSESSMENT/PLAN: 1. Intractable migraine without aura and with status migrainosus - ICD9: 346.13, ICD10: G43.011 (primary diagnosis) Will add on Verapamil TID for prophylaxis. Discussed safe in , but can cause low BP. To push PO fluids and call if she feels lightheaded or dizzy. Red flags for re-assessment reviewed with patient in detail. - VERAPAMIL 80 MG TABLET 2. at early stage - ICD9: V22.2, ICD10: Z34.90 F/u with OB. I spent a total of 15 minutes on the date of the service which included preparing to see the patient, [id number] patient care, completing clinical documentation, obtaining and/or reviewing separately obtained history, performing a medically appropriate examination, counseling and educating the pat ient/family/caregiver, and ordering medications, tests, or procedures. Debby Reeves MD documented in this encounter[facility]11-07-2022 Miscellaneous Notes* Telephone Encounter - Bettie Shea MA - 05/29/2022 1:14 PM EST Called Fadumo Hensley and identified by name and date of . Fadumo Hensley was informed of negative Non-Invasive Testing (NIPT) results for Trisomy 21, Trisomy 18 and Trisomy 13. Patient was also notified of the result of no sex chromosome aneuploidy detected. Patient wishes to know sex, which is reported as: female. Reviewed with patient Fadumo Hensley that NIPT is considered screening and not diagnostic, so this result greatly reduces, but does not eliminate the chance that the fetus could have trisomy 21, trisomy 18, trisomy 13 or sex chromosome aneuploidy. Fadumo Hensley indicated understanding this information. Patient advised to follow up with AFP neural tube defect screening (blood draw) at 16-18 weeks gestation and 18-20 week detailed anatomy ultrasound. Also instructed to follow-up with Primary OB Provider. Bettie Shea MA documented in this encounterBu[facility]11-01-2022 History of Present illness Narrative* Debby Reeves MD - 05/23/2022 6:51 PM EDT Chief Complaint Patient presents with: Follow Up: Headaches almost continuous x 1 month HPI Fadumo Hensley is a 26 year old female who presents here today for Above Complaints.. Patient is 12/6 weeks with complaint of headache which has been present for 1 month. States that he headache can be over her forehead or the back of head, behind her eyes, or on the sides. Described as an intermittent pressure, currently 7/10, with radiation into her neck. Associated with feeling cloudy and occasionally has flashes of light or afterimages which occur every few days. Triggered by bright lights. Is able to sleep with her Unisom and melatonin. Has tried 3 regular strength tylenol 2-3 times per day without improvement. Warm wash cloths on her head/face do not help either. Denies slurred speech, facial droop, unilateral weakness. Notes that she was in the [facility] ER about a month ago when this started and they gave her IV fluids and benadryl cocktail which helped temporarily. Does get vomiting, but this has been present with her . Given vitamin B6 which she has nottaken yet. Patient has been off of Prozac for the last month and is doing well without medication. Denies SI/HI. Past medical history, appointments, medications, allergies reviewed. 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 High grade squamous intraepithelial cervical dysplasia History of suicide attempt 2015 cutting wrist Juvenile osteochondrosis of lower extremity, excluding foot 2004, resolved Migraine headache 05/26/2011 other Sever's Disease, 2006, resolved Other acne 01/27/2010 Pain in joint, site unspecified AC joint tear, 2005 Patient requested diagnostic testing 04/18/2012 04/18/2012 Patient desires early screening in with sequential testing. Poor support system complicating 04/18/2012 04/18/2012The father of the baby is aware that she is , but does not wish to be involved. Patient states her parents are very supportive. Patient is tearful for some of this visit today due to the father of the baby. She states he has put pressure on her in the past to have an , butshe does not wish to do that. Patient was given a brochure on the care center and WIC. depression PTSD (post-traumatic stress disorder) Rosacea 01/27/2010 Rubella non-immune status 04/22/2012 Skin cancer Teen 04/22/2012 July 04, 2012 Flu vaccine given Telangiectasia 01/27/2010 Tobacco use disorder Previous Surgical History PAST SURGICAL HISTORY Procedure Laterality Date INSERTION OF IUD 12/02/2013 MIRENA IUD 2019 Removed 12/2021 PAST SURGICAL HISTORY OF 01/01/2010 Removal of 4 Mereta Teeth PAST SURGICAL HISTORY OF basal cell carcinoma removed from scalp Family History FAMILY HISTORY Problem Relation Age of Onset Hypertension Mother Heart Father TRIPLE BYPASS SURGERY Hypertension Father Diabetes Father Diabetes Sister No Known Problems Sister No Known Problems Sister No Known Problems Brother No Known Problems Brother No Known Problems Brother Heart Maternal Grandmother from heart problems Heart Maternal Grandfather from heart problems Cancer Maternal Grandfather lung Hypertension Maternal Grandfather No Known Problems Daughter Patient Allergies ALLERGIES Allergen Reactions Zyrtec [Cetirizine * Intolerance tremors Current Medications Current Outpatient Medications on File Prior to Visit Medication Sig Magnesium Oxide 420 mg tab Take 1 tablet by mouth once daily. calcium carbonate/vitamin D3 (CALCIUM 500 WITH D ORAL) Take by mouth. PNV no.95/ferrous fum/folic ac ( ORAL) Take by mouth. albuterol HFA (PROAIR HFA) 90 mcg/actuation inhaler Inhale 2 Puffs as instructed every 4 hours as needed for wheezing/shortness of breath. Used for seasonal allergies nicotine (NICODERM) 7 mg/24 hr Apply 1 Patch as directed every 24 hours for 14 days. FLUoxetine (PROZAC) 20 mg capsule Take 1 capsule by mouth once daily. famotidine (PEPCID) 20 mg tablet Take 1 tablet by mouth at bedtime as needed. No current facility-administered medications on file prior to visit. Social History Social History Tobacco Use Smoking status: Former Packs/day: 1.00 Years: 9.00 Pack years: 9.00 Types: Cigarettes Smokeless tobacco: Never Tobacco comments: Vapes Vaping Use Vaping Use: current everyday user Substances: Nicotine Devices: Pre-filled or refillable cartridge Substance Use Topics Alcohol use: Not Currently Drug use: Yes Types: Heroin, Marijuana Comment: Patient states I have used multiple drugs in the past Review of Symptoms REVIEW OF SYSTEMS See HPI EXAM: BP 104/68 Pulse 100 Resp 16 Wt 84.2 kg (185 lb 9.6 oz) LMP 02/22/2022 (Approximate) SpO2 96% BMI 30.11 kg/m General Appearance: Well appearing, alert, in no acute distress, well-hydrated, well nourished.. Skin: Skin color, texture, turgor normal, no suspicious rashes or lesions. Lungs: Lungs clear to auscultation. No wheezing, rhonchi, rales.. Heart: RRR without murmur, gallop, or rubs. No ectopy. Neurologic: Negative findings: speech normal, mental status intact, cranial nerves 2-12 intact, muscle tone normal, muscle strength normal, sensation to light touch and pinprick normal, reflexes normal and symmetric. Health Maintenance List PNEUMOCOCCAL(1 - PCV) Never done SPIROMETRY Never done DTAP,TDAP,TD(7 - Td or Tdap) due on 11/14/2017 DEPRESSION ASSESSMENT Never done COVID-19 VACCINE(2 - Pfizer series) due on 07/27/2021 INFLUENZA(1) due on 03/23/2022 ANNUAL PCP TEAM CHRONIC DISEASE VISIT due on 03/21/2023 PAP TESTING due on 12/28/2024 HEPATITIS B Completed HEPATITIS C SCREENING Completed HIV SCREENING Completed ASSESSMENT/PLAN: 1. Intractable migraine without aura and with status migrainosus - ICD9: 346.13, ICD10: G43.011 Patient with atypical migraine headache. Discussed treatment of acute headache with 1000 mg of tylenol up to TID along with metoclopramide 10 mg. Call if not improving in 1-2 days or sooner with red flag symptoms/side effects. Given information for home on migraines. Keep headache diary. Advised she should not take this medication with Prozac, so would have her remain off at this time. - METOCLOPRAMIDE 10 MG TABLET Debby Reeves MD documented in this encounterBu[facility]11-01-2022 History of Present illness Narrative* Sienna Hidalgo LPN - 05/23/2022 3:56 PM EDT Patient scheduled for this evening at 640pm. documented in this encounterBu[facility]11-01-2022 Miscellaneous Notes* Quick Notes - Vale Briones MD - 05/23/2022 3:24 PM EDT KJ - Patient seen urgently for a migraine headache. She took tylenol without any change. Last nightshe took unisom to help her sleep. This headache started 1 month ago. She has also tried excedrin migraine without relief. Patient has also tried caffeine & hydration. VB No. LOF No. CTXS No. Movement: absent. Medication list reviewed. Physical Exam See Flow Sheet Gen: no accute distress, well appearing Abd: soft, nontender, gravid A/P Migraine headache - advised on take magnesium oxide daily. Also recommend pcp evaluation [facility]. Advised her to go to the ED for a persistent & severe headache or the worst headache of her life. Follow up tomorrow for NT Vale Briones MD documented in this encounterBu[facility]11-01-2022 Instructions* Patient Instructions* Roxanne Roque Ma - 05/23/2022 3:09 PM EDT SEQUENTIAL SCREENINGS [facility] offers sequential screenings for women who are interested in screenings for chromosomal abnormalities and certain defects during a . The sequential screen combinesultrasound and blood tests to determine the risk of chromosomal abnormalities, including Down's Syndrome (Trisomy 21) and Trisomy 18, as well as open neural tube defects including spina bifida. Ultrasound examination is performed between 11 weeks and 13 weeks gestational age. Blood tests are drawn after the ultrasound and again later in the between 15 and 21 weeks gestational age. Please let your physician know if you are interested in this testing. It will require an appointment withour sonography technician. This is not an ultrasound performed by a physician in our office during a routine visit. SIGNS AND SYMPTOMS OF LABOR 1. Contractions every 10 minutes or more often 2. Clear, pink, or brownish fluid (water) leaking from vagina 3. Feeling that baby is pushing down, pressure 4. Low, dull backache 5. Cramps that feel like a period 6. Cramps with or without diarrhea If you notice any of the above symptoms, contact our office at [phone] and ask to speak with anurse. After hours, you can call doctors registry at [phone] OR call [facility] at [phone] ask to have the doctor fire prevention forester paged. If you consider this an emergency, dial 9-9-8 or go to your nearest emergency department. NEED HELP? Are you dealing with a violent or abusive relationship? Are you a victim of rape or sexual assult? Call [facility] ([place]) 24 hour Crisis Hotline: 519.161.9529 or 210-981-7895. MANUAL Your Guide to a Healthy manual is now on-line. Visit [email or web address] to download your free copy documented in this encounterBucyrus [facility] Hospital09-22-2022 Miscellaneous Notes* Telephone Encounter - Joshua Delgado RN - 04/13/2022 12:43 PM EDT Patient notified. Joshua Delgado RN * Telephone Encounter - Vale Briones MD - 04/13/2022 12:24 PM EDT Melatonin is fine to continue. The other option would unisom as that can help with nausea as well. Vale Briones MD * Telephone Encounter - Marlon Cortez RN - 04/13/2022 9:08 AM EDT Patient is 7w1d. She states she has trouble sleeping when she is . She has been using melatonin. States Benadryl does not work well for her. History of drug abuse. Has been clean for 4 years.Patient is asking what she can take for help with sleeping. Please advise documented in this encounterBucyrus [facility] Hospital09-22-2022 Miscellaneous Notes* Quick Notes - Marlon Cortez RN - 04/13/2022 11:25 AM EDT DISTANCE HEALTH VISIT This Team Access Model visit is a phone encounter. It required patient-provider interaction for themedical decision making as documented below. Father of the baby involved. He is not the father of her other child. Patient was seen in the [place] ER for spotting on April [address] Briones for follow-up and serum quantitative hCGs were done. Patient denies any bleeding since then.Pt has a history of anxiety/depression diagnosed in 2010. She is currently taking Prozac prescribed by Dr. Reeves. Patient states that she did have depression. Discussed increased risks of depression during and and importance of reporting the development or worsening of symptoms should they occur. Patient states she did have a suicidal attempt in 2010 and was admitted to [facility]. She states she last had suicidal thoughts about 5 years ago. Patient states she and the father the baby are both in recovery for alcohol and drug abuse. 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 She states she has been clean for about 4 years. She states she had multiple times in rehab. Discussed risks of using drugs and alcohol in . Patient's previous child weight was 9 pounds. Patient states she has been vaping nicotine for the past 5 years. She recently saw her PCP Dr. Reeves and has tried using nicotine patches. I have advised her of the [place] tobacco quit line and [facility] smoking cessation program. I havediscussed the risks of vaping during and advised patient to continue trying to quit. Patient desires aneuploidy screening. I have given her contact information for [employer] to check on insurance coverage. Patient considering horizon screening testing. Contact information for the [employer] rep given to patient to check on insurance coverage.Marlon Cortez RN documented in this encounterBucyrus [facility]09-22-2022 History and physical note * Marlon Cortez RN - 04/13/2022 11:24 AM EDT # 1 - Date: 10/23/12, Sex: Female, Weight: 9 lb 0.8 oz (4.105 kg), GA: 39w0d, Delivery: Vaginal, Spontaneous, Apgar1: 8, Apgar5: 9, Living: Living, Comments: AROM, labor augmented with Pitocin,1st degree laceration, EBL 300cc # 2 - Date: None, Sex: None, Weight: None, GA: None, Delivery: None, Apgar1: None, Apgar5: None, Living: None, Comments: None documented in this encounterBucyrus [facility]09-15-2022 History of Present illness Narrative* Vale Briones MD - 04/06/2022 9:23 AM EDT Obstetric History T1 L1 SAB0 IAB0 Ectopic0 Multiple0 Live Births1 Name of Baby 1: Bouse Date: 10/23/12 GA: 39w0d Delivery: Vaginal, Spontaneous Apgar1: 8 Apgar5: 9 Living: Living Name of Baby 2: Not recorded Date: Not recorded GA: Not recorded Delivery: Not recorded Apgar1: Not recorded Apgar5: Not recorded Living: Not recorded Fadumo Hensley is a 26 year old female who presents for problem visit. HPI: Patient presents in follow up for bleeding in . She was seen in the ED on 04/03 from cramps & vaginal bleeding. Patient states the bleeding was never very heavy & she mainly noticed it in the toilet. The VB stopped yesterday. OB History T1 L1 SAB0 IAB0 Ectopic0 Multiple0 Live Births1 Communications Clerk History LMP: 02/22/2022 (Approximate), Age at Menarche: Age at First : Age at Menopause: Communications Clerk History Comments: Sexual Activity: Yes; Male Contraception: No contraception data on record PAST MEDICAL HISTORY Diagnosis Date ASCUS with positive high risk HPV cervical 09/26/2019 Asthma 11/29/2011 ATTN DEFICIT NONHYPERACT 11/27/2007 Bulging of intervertebral disc between L4 and L5 and L5 and S1 09/07/2015 Chest pain 04/29/2010 Chlamydia infection 09/23/2013 Depression 05/26/2011 Depression complicating , antepartum 08/02/2012 Generalized anxiety disorder GERD (gastroesophageal reflux disease) Hepatitis C 2017 2018 cured after medication course. High grade squamous intraepithelial cervical dysplasia History of suicide attempt 2014 cutting wrist Juvenile osteochondrosis of lower extremity, excluding foot 2005, resolved Migraine headache 05/26/2011 other Sever's Disease, 2006, resolved Other acne 01/27/2010 Pain in joint, site unspecified AC joint tear, 2005 Patient requested diagnostic testing 04/18/2012 04/18/2012 Patient desires early screening in with sequential testing. Poor support system complicating 04/18/2012 04/18/2012The father of the baby is aware that she is , but does not wish to be involved. Patient states her parents are very supportive. Patient is tearful for some of this visit today due to the father of the baby. She states he has put pressure on her in the past to have an , butshe does not wish to do that. Patient was given a brochure on the care center and WIC. PTSD (post-traumatic stress disorder) Rosacea 01/27/2010 Rubella non-immune status 04/22/2012 Skin cancer Teen 04/22/2012 July 04, 2012 Flu vaccine given Telangiectasia 01/27/2010 Tobacco use disorder PAST SURGICAL HISTORY Procedure Laterality Date INSERTION OF IUD 12/02/2013 MIRENA IUD 2019 Removed 12/2021 PAST SURGICAL HISTORY OF 01/01/2010 Removal of 4 Mereta Teeth PAST SURGICAL HISTORY OF basal cell carcinoma removed from scalp FAMILY HISTORY Problem Relation Age of Onset Hypertension Mother Heart Father TRIPLE BYPASS SURGERY Hypertension Father Diabetes Father Diabetes Sister No Known Problems Sister No Known Problems Sister No Known Problems Brother No Known Problems Brother No Known Problems Brother Heart Maternal Grandmother from heart problems Heart Maternal Grandfather from heart problems Cancer Maternal Grandfather lung Hypertension Maternal Grandfather No Known Problems Daughter Social History Tobacco Use Smoking status: Former Packs/day: 1.00 Years: 9.00 Pack years: 9.00 Types: Cigarettes Smokeless tobacco: Never Tobacco comments: Vapes Vaping Use Vaping Use: current everyday user Substances: Nicotine Devices: Pre-filled or refillable cartridge Substance Use Topics Alcohol use: Not Currently Drug use: No Current Outpatient Medications Medication Sig calcium carbonate/vitamin D3 (CALCIUM 500 WITH D ORAL) Take by mouth. albuterol HFA (PROAIR HFA) 90 mcg/actuation inhaler Inhale 2 Puffs as instructed every 4 hours as needed for wheezing/shortness of breath. Used for seasonal allergies FLUoxetine (PROZAC) 20 mg capsule Take 1 capsule by mouth once daily. famotidine (PEPCID) 20 mg tablet Take 1 tablet by mouth at bedtime as needed. PNV no.95/ferrous fum/folic ac ( ORAL) Take by mouth. nicotine (NICODERM) 21 mg/24 hr Apply 1 Patch as directed every 24 hours. nicotine (NICODERM) 14 mg/24 hr Apply 1 Patch as directed every 24 hours. No smoking with patch. nicotine (NICODERM) 7 mg/24 hr Apply 1 Patch as directed every 24 hours for 14 days. citalopram (CELEXA) 20 mg tablet Take 1 tablet by mouth once daily. For depression (Patient not taking: Reported on 12/28/2021 ) No current facility-administered medications for this visit. Allergies As of Date: 04/06/2022 Allergen Noted Reaction ZYRTEC [CETIRIZINE HCL] 05/08/2006 Intolerance Fully Assessed 04/06/2022 Allergies and current medication updated:Yes EXAM: BP 98/56 Wt 188 lb (85.3kg) LMP 02/22/2022 GENERAL: pleasant, female in no apparent distress PELVIC: external genitalia normal, normal appearing perineal body and perianal region ASSESSMENT AND PLAN: 26yo female with threatened TVUS shows GS with yolk sac and CRL measuring 5&6 with FCA in 89[facility] ED records reviewed including US, labs & notes F/u for PNOB & new OB in 2 weeks Medical Decision Making: Problems: Moderate: New problem with uncertain prognosis Data: Unique source(s) for external note(s) reviewed: 1 Unique test result(s) reviewed: 3+ Risk: Low: Low risk from testing/treatment Medical Decision Making Level: 4 - Moderate Vale Briones MD documented in [facility] Miscellaneous Notes* Telephone Encounter - Patricia Lakhani RN - 04/04/2022 2:48 PM EDT Patient notified and voiced understanding of below information and instructions. Appointment scheduled for 04/06 and will get lab drawn tomorrow. Bleeding precautions reviewed. Patricia Lakhani RN * Telephone Encounter - Maggy Wilkinson MD - 04/04/2022 2:26 PM EDT Ultrasound shows gestational sac and yolk sac that is intrauterine but there is no pole seen.There is a small simple cyst on the right ovary as well as a small corpus luteal cyst. No signs of ectopic. No free fluid. Blood type A+. hCG quant was 40,163, at this level I would anticipate to seea pole however my recommendation is that she have another quant level done on 04/05/2022. At that time we will be able to give her more information. This is likely a nonviable . KJ has openings on 04/06 Please add the patient in a 20-minute slot to discuss management options. Please ensure that the patient gets her hCG level drawn on the so Dr. Briones has those results. * Telephone Encounter - Patricia Lakhani RN - 04/04/2022 2:10 PM EDT ER report to provider to review. HCG Quant on 04/03- 91733.1 Patricia Lakhani RN * Telephone Encounter - Maggy Wilkinson MD - 04/04/2022 2:04 PM EDT ordered * Telephone Encounter - Patricia Lakhani RN - 04/04/2022 1:50 PM EDT Still waiting for ER reports. Labs pended. Patricia Lakhani RN * Telephone Encounter - Maggy Wilkinson MD - 04/04/2022 1:10 PM EDT If no quants done I would recommend this. Please pend orders. * Telephone Encounter - Patricia Lakhani RN - 04/04/2022 12:00 PM EDT Patient called back and states she was seen at [facility] yesterday and ultrasound was done. Patient states she was told that they did not know if she was miscarrying or it was a very early as there was no heart beat. Patient states her bleeding has slowed down since yesterday. She currently is still wearing the same pad since 7am. Bleeding is brown in color and mostly just present when wiping. Cramping is rated at a 3/10. Still have not received ER reports. Request faxed. Patricia Lakhani RN * Telephone Encounter - Marlon Cortez RN - 04/03/2022 3:35 PM EDT Keep chart open for ER report and to schedule f/u appointment * Telephone Encounter - Vale Briones MD - 04/03/2022 3:29 PM EDT Noted Vale Briones MD * Telephone Encounter - Aliyah Khoury RN - 04/03/2022 3:01 PM EDT LMP 02/22/22 Approximately 5w5d Patient was seen by Dr. Reeves and her was confirmed by serum quant on 03/21/22. Patient calling to report that she is having heavy bleeding and cramping. Went to the bathroom and the toilet was full of blood. Cramping pain is a 4 out of 10. States she called her mother and her mother told her to go to the ER. Patient is currently at [facility]. Advised patient to contact our office for a follow-up visit. JEAN PIERRE Khoury RN documented in this encounterBu[facility]09-12-[facility]22 Hospital Discharge instructions Patient Education 04/03/2022 18:40:48 Bleeding During Early Bleeding During Early Ultrasound can help check the health of your fetus. If you ve had bleeding early in your , you re not alone. Many other women have had early bleeding, too. And in most cases, nothing is wrong. But your healthcare provider still needsto know about it. He or she may want to do tests to find out why you re bleeding. Call your healthcare provider if you notice bleeding during . What causes early bleeding? The cause of bleeding early in is often unknown. But many factors early on in may lead to bleeding or spotting. These include sexual intercourse, which may cause bleeding in any trimester. Here are some other causes: Implantation of the embryo on the uterine wall Subchorionic hemorrhage (bleeding between the sac membrane and the uterus) Miscarriage Ectopic (tubal) If you notice spotting Spotting (very light bleeding) is the most common type of bleeding in early . If you notice it, call your healthcare provider. Chances are, he or she will tell you that you can care for yourself at home. If tests are needed Depending on how much you bleed, your healthcare provider may ask you to come in for some tests. A pelvic exam, for instance, can help see how far along your is. You also may have an ultrasound or a Doppler test. These imaging tests use sound waves to check the health of your fetus. The ultrasound may be done on your belly or inside your vagina. Your healthcare provider also may order aspecial blood test. This test compares your hormone levels in blood samples taken 2 days apart. Theresults can help your healthcare provider learn more about the implantation of the embryo. Your blood type will also need to be checked to evaluate whether you will need to be treated for Rh sensitization. Warning signs If your bleeding doesn t stop or if you notice any of the following, seek medical help right away: Soaking a sanitary pad each hour Bleeding like you re having a period Cramping or severe belly pain Feeling dizzy or faint Tissue passing through your vagina Bleeding at any time after the first trimester Questions you may be asked Though not normal, bleeding early in is common. If you ve noticed any bleeding, you may be concerned. But keep in mind that bleeding alone doesn t mean something is wrong. Call your healthcare provider right away, though. He or she may ask you questions like these to help find the cause of your bleeding: When did your bleeding start? Is your bleeding very light (spotting) or is it like a period? Is the blood bright red or brownish? Have you had sexual intercourse recently? Have you had pain or cramping? Have you felt dizzy or faint? Monitoring your Bleeding will often stop as quickly as it began. Your may go on a normal path again. You may need to make a few extra visits. But you and your baby will most likely be fine. [id number] [employer]. [address] [place] [address], [place] [address]. All rights reserved. This information is not intended as a substitute for professional medical care. Always follow your[facility] professional's instructions. Follow Up Care 04/03/2022 14:32:57 With:your assistant floor covering printer Address:Unknown When:2-4 days Comments:Schedule appointment as soon as possibleReturn to ED if symptoms worsenPelvic rest. follow up for repeat hcg this week. Increase diet as described With:NONE PHYSICIAN Address:Unknown When:2-4 days [facility] Note Discharge Instructions Thank you for allowing [facility] to assist you with your healthcare needs. The following is importantdischarge information regarding your hospital visit. Diagnosis from Today's Visit Vaginal bleeding - < 20 wks What to Do Next Instructions from Your Care Team Discharge Return to Work, School, or Sports (Return to Work, School, or Sports) - Ordered -- 04/05/22, May return to: work, 04/03/22 18:40:00 EDT Post Acute Orders No qualifying data available. You Need to Schedule the Following Appointments Follow Up with your assistant floor covering printer When Within 2-4 days Why: Schedule appointment as soon as possible Return to ED if symptoms worsen Pelvic rest. follow up for repeat hcg this week. Increase diet as described Follow Up with NONE PHYSICIAN When Within 2-4 days Allergies ZyrTEC Medications Please ask your primary doctor or pharmacist before taking any other medication not listed, including over the counter drugs, herbal medications, vitamins and or supplements as they may interact withyour home medications. Please take this list to your next doctor s visit. Bring all medications you take, including over the counter medications, herbals and other supplements with you to your doctor s visit. Patients and families are reminded to discard old lists and to update any records with all medication providers or retail pharmacies. Education Materials Bleeding During Early Ultrasound can help check the health of your fetus. If you ve had bleeding early in your , you re not alone. Many other women have had early bleeding, too. And in most cases, nothing is wrong. But your healthcare provider still needsto know about it. He or she may want to do tests to find out why you re bleeding. Call your healthcare provider if you notice bleeding during . What causes early bleeding? The cause of bleeding early in is often unknown. But many factors early on in may lead to bleeding or spotting. These include sexual intercourse, which may cause bleeding in any trimester. Here are some other causes: Implantation of the embryo on the uterine wall Subchorionic hemorrhage (bleeding between the sac membrane and the uterus) Miscarriage Ectopic (tubal) If you notice spotting Spotting (very light bleeding) is the most common type of bleeding in early . If you notice it, call your healthcare provider. Chances are, he or she will tell you that you can care for yourself at home. If tests are needed Depending on how much you bleed, your healthcare provider may ask you to come in for some tests. A pelvic exam, for instance, can help see how far along your is. You also may have an ultrasound or a Doppler test. These imaging tests use sound waves to check the health of your fetus. The ultrasound may be done on your belly or inside your vagina. Your healthcare provider also may order aspecial blood test. This test compares your hormone levels in blood samples taken 2 days apart. Theresults can help your healthcare provider learn more about the implantation of the embryo. Your blood type will also need to be checked to evaluate whether you will need to be treated for Rh sensitization. Warning signs If your bleeding doesn t stop or if you notice any of the following, seek medical help right away: Soaking a sanitary pad each hour Bleeding like you re having a period Cramping or severe belly pain Feeling dizzy or faint Tissue passing through your vagina Bleeding at any time after the first trimester Questions you may be asked Though not normal, bleeding early in is common. If you ve noticed any bleeding, you may be concerned. But keep in mind that bleeding alone doesn t mean something is wrong. Call your healthcare provider right away, though. He or she may ask you questions like these to help find the cause of your bleeding: When did your bleeding start? Is your bleeding very light (spotting) or is it like a period? Is the blood bright red or brownish? Have you had sexual intercourse recently? Have you had pain or cramping? Have you felt dizzy or faint? Monitoring your Bleeding will often stop as quickly as it began. Your may go on a normal path again. You may need to make a few extra visits. But you and your baby will most likely be fine. [phone] [employer]. [address] [place] [address], [place] [address]. All rights reserved. This information is not intended as a substitute for professional medical care. Always follow yourhealthcare professional's instructions. Additional Information VACCINATE! IT SAVES LIVES! Members of the community who have not yet received the COVID-19 vaccine and would like to receive it can visit one of [facility] vaccine clinics. There are many vaccine clinic locations within the [facility]. For locations and available times, please visit [email or web address]. It is important to note that some COVID mobile vaccine clinics are held outdoors and may be canceled in rainy orstormy conditions. To learn more about pediatric vaccinations (ages 5-11), we invite you to visit the [facility] webpage. [email or web address]/[email or web address] learn more about the COVID-19 vaccine, we invite you to visit the [facility] website for a list of frequently asked questions. [email or web address] [facility] Patient Portal Access Instructions: Stay connected with your healthcare team and access your personal medical information anytime with the [facility] Patient Portal. If you would like a full copy of your medical records please contact the [facility] Medical Records Department Sunday through Sunday between 8a.m. and 4:30p.m. Please follow the directions below to access the portal: 1.Access the email account you provided upon registration to the [facility].2.Look for an invitation email from [facility].3.Open the email and access the invitation link: Accept Invitation to [facility]4.Fill in the required fritz to create your account. Sign into www.Healthcare [facility]book with your username and password that you created in the above steps to stay up to date. You can then view a summary of results, a summary of your visits, and the ability to download your summaries to your computer or send the information securely to a physician. Remember that your healthcare information is confidential, so carefully consider who you will allow to register on the [facility] Patient Portal for access to your information. You can also access the [facility] Patient Portal on the [employer]. Simply click on Health Records under [employer] and then click on the [facility] [employer] logo. HOW TO SAFELY DISPOSE OF PRESCRIPTION MEDICATIONS Please use one of the following methods to safely dispose of your unused medications. 1.Use a drug disposal kit: the drug disposal pouch allows you to safely discard your old and unuseddrugs. Ask your nurse to give you one when you are discharged.2.Visit a local take-back location: Many local pharmacies and police departments have programs that collect old and unwanted prescriptiondrugs. Call your local pharmacy or go to [email or web address] to find one close to you.3.Make use of household items: Use cat litter or old coffee grounds to dispose medications if other options arenot available. Mix your drugs with these household products, seal them in an airtight container andthrow it into the garbage. Call [facility]: [phone] to be sure your drugs can be disposed of in this way. Some medicines may require a different approach.4.Never flush your medications down the toilet. IF YOU HAVE BEEN PRESCRIBED AN OPIOIDS FOR PAIN If you have been prescribed an opioid (such as hydrocodone, oxycodone or morphine), it is critical to understand the possible side effects and risks of opioid pain medications. Even when taken as directed, opioids can have several side effects including: Tolerance, meaning you might need to take more of a medication for the same pain relief. Nausea, vomiting and/or constipation. Sleepiness, dizziness, dry mouth, confusion, depression or itching. Physical dependence, meaning you have withdrawal symptoms when a medication is stopped ? this can develop within a few days. KNOW YOUR RESPONSIBILITIES It is important to know exactly how much and how often to take the opioid pain medications you are prescribed. Never take opioids in higher amounts or more often than prescribed. Do not combine opioids with alcohol or other drugs that cause drowsiness, such as benzodiazepines, also known as benzos,including diazepam and alprazolam, muscle relaxants or sleep aids. Never sell or share prescriptionopioids. This is illegal. Store opioids in a secure place and out of reach of others (including children, family, friends and visitors). The last page(s) of this document has been signed and retained as a CHART COPY Signatures Patient Education Materials Bleeding During Early Medication Leaflets My discharge plan and instructions have been reviewed and explained to me and I,FADUMO HENSLEY understand my current condition and have read and understand these discharge instructions. I have received a written copy of the plan/instructions. If I have questions, I am aware that I should contact my doctor. Patient/[place] Clerk Signature: Date/Time: Relationship to Patient: Witness Name/Signature: Date/Time: [facility]09-02-2022 Miscellaneous Notes* Telephone Encounter - Sienna Hidalgo LPN - 03/24/2022 8:16 AM EDT Patient notified of results, verbalizes understanding of instructions. Sienna Hidalgo LPN * Telephone Encounter - Bibi Saxena APRN.CNP - 03/24/2022 6:55 AM EDT Please call patient and let let know her vitamin D level is mildly low. HCG levels show 4-6 weeks estimated . The rest of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 02/21/2022 1:05 PM EDT Patient has a virtual appointment tomorrow with SW to discuss LEEP procedure. States her scalp and neck have been very itchy. Her skin is warm to the touch all over. Took x2 at UPT and had faint positive lines. Asking if this could be related to a possible . She had skin cancer removed from her scalp that has since healed. Advised to talk with her podiatric aide regarding the pruritis. IUD was removed on 01/19/22. Has been sexually active without another form of contraception. Leaving for vacation on where she will be riding roller coasters. Willing to go to the lab today for HCG quant. Patient is feeling anxious. Aliyah Khoury RN documented in this encounterBucyrus [facility]07-14-2022 Miscellaneous Notes* Telephone Encounter - Joshua Delgado RN - 02/02/2022 4:22 PM EDT Patient notified. Wants to discuss LEEP first prior to scheduling it. Needs after 3pm. Scheduled with SW 02/22/22. Joshua Delgado RN * Telephone Encounter - Carmelita Millan MD - 02/02/2022 3:35 PM EDT she had high grade squamous cells. We generally recommend a LEEP for that either in the office or the emergency room. Carmelita Millan MD * Telephone Encounter - Earle Munoz LPN - 02/02/2022 8:53 AM EDT Pt calling and inquiring about results of colposcopy done per . Please advise in her absence. Earle Munoz LPN documented in this encounterBucyrus [facility]07-01-2022 Miscellaneous Notes* Addendum Note - Sulma Bartholomew APRN.CNM - 01/20/2022 11:01 AM EDT Addended by: SULMA BARTHOLOMEW on: 01/20/2022 11:01 AM Modules accepted: Orders * Telephone Encounter - Sulma Bartholomew APRN.CNM - 01/20/2022 11:01 AM EDT Rx resent. Sulma Bartholomew APRN.CNM * Addendum Note - Earle Munoz LPN - 01/20/2022 10:18 AM EDT Addended by: EARLE MUNOZ LPN on: 01/20/2022 10:18 AM Modules accepted: Orders * Telephone Encounter - Earle Munoz LPN - 01/20/2022 10:17 AM EDT Pt returned call and was given below results and instructions. Pt voiced understanding [facility] Please see pended order below. Do not need to call pt back. Earle Munoz LPN * Telephone Encounter - Carmelina Gonzalez LPN - 01/20/2022 9:21 AM EDT Left message to call office * Telephone Encounter - Sulma Bartholomew APRN.CNM - 01/20/2022 8:07 AM EDT Positive for bacterial vaginosis. Rx for Flagyl 500 mg BID x 7 days sent. NO intercourse or alcoholthrough treatment and up to 24 hours after last dose. Sulma Bartholomew APRN.CNM documented in this encounterBucyrus [facility]07-01-2022 Miscellaneous Notes* Telephone Encounter - Carmelina Gonzalez LPN - 01/20/2022 9:40 AM EDT ----- Message from Sulma Bartholomew APRN.CNM sent at 01/20/2022 8:07 AM EDT ----- Results reviewed. See phone note. Sulma Bartholomew APRN.CNM documented in this encounterBucyrus [facility]06-30-2022 History of Present illness Narrative* Sulma Bartholomew APRN.CNM - 01/19/2022 1:45 PM EDT Fadumo presents for removal of IUD due to desire for . UNIVERSAL PROTOCOL / SAFETY CHECKLIST Procedure to be Performed: IUD removal Sign In: A Moment of CARE was completed. Personnel directly involved with the procedure wore the appropriate PPE (Personal Protective Equipment). Patient/Surrogate Stated/Verified: PATIENT VERIFIED(optional for EMERGENT procedures): Patient name, Date of , Relevant allergies and The intended procedure Time Out Communication: Intended patient and procedure match the source documents. Consent documented and matches the intended procedure. Sign Out: SIGN OUT (optional for EMERGENT procedures): No specimen collected. Sulma Bartholomew APRN.CNM PROCEDURE: Speculum placed in vagina, IUD string visualized and grasped with ring forceps. ASSESSMENT/PLAN: IUD removed without difficulty, intact, and patient tolerated procedure well. Contraception plans: none and desires Reviewed pre-conception guidelines including folic acid supplementation, optimal timing of intercourse, avoidance of smoking, alcohol, exposure to environmental chemicals and need for evaluation if not within 12 months. Sulma Bartholomew APRN.CNM documented in this encounterBucyrus Community Hospital06-21-2022 Miscellaneous Notes* Telephone Encounter - Patricia Lakhani RN - 01/10/2022 12:03 PM EDT Patient notified of results, verbalizes understanding of instructions. Colposcopy appointment scheduled. Patricia Lakhani RN * Telephone Encounter - Earle Munoz LPN - 01/10/2022 9:19 AM EDT Voicemail left for pt as well as mychart message sent asking pt to call the office for further instructions. Earle Munoz LPN * Telephone Encounter - Sulma Bartholomew APRN.CNM - 01/10/2022 9:04 AM EDT Please notify patient of HSIL on PAP. Colposcopy needed. Order placed. Sulma Bartholomew APRN.CNM documented in this encounterBucyrus Community Hospital06-08-2022 Instructions* Patient Instructions* Sulma Bartholomew APRN.CNM - 12/28/2021 4:27 PM EDT [facility] Preconception Counseling Caring for your health before you become -- called preconception care -- will help you learn about any risk factors and treat any medical problems that you may have before you become . Planning for your before you conceive will help you make healthy decisions for you and your baby. Pre-conception counseling helps educate women so they can be physically and emotionally prepared - and healthy - for . During a preconception office visit, your health care provider will discuss: IMPROVEMENT COORDINATOR history: previous pregnancies, menstrual history, contraceptive use, sexually transmitted diseases, Pap smears, vaginal infections as well as previous Pap test results. Medical/surgical history: surgeries, transfusions, hospitalizations, pre- existing medical conditions, allergies, current medications (including prescribed and qaoz-poe-pdwbcjw medications) Family health history: hypertension, diabetes, twins, genetic factors such as mental retardation, blindness, deafness, congenital anomalies, ethnic-related conditions such as Titus-Sachs, sickle trait/sickle cell, thalassemia Your weight: your health care provider will tell you to try to reach your ideal body weight before becoming . This means losing weight if you are overweight to reduce your risk of high blood pressure complications; or gaining weight if you are underweight to reduce the risk of delivering a low - weight baby. Personal life style factors, as well as your partner's, that may influence : Smoking, drinking alcohol and using recreational drugs are habits that need to be stopped in order for you to have a healthy . Home and workplace environment: possible teratogens and hazards, such as exposure to cat feces, x-rays, lead or solvents. Smoking during affects you and your baby's health before, during and after your baby is born. The nicotine (the addictive substance in cigarettes), carbon monoxide and numerous other poisons you inhale from a cigarette are carried through your bloodstream and go directly to your baby. Smoking wile will: Lower the amount of oxygen available to you and your growing baby Increase your baby's heart rate. Increase the chances of miscarriage and stillbirth. Increase the risk that your baby is born prematurely and/or born with low weight. Increase your baby's risk of developing respiratory problems. There are many smoking cessation programs available in your community to help you quit smoking. [facility] provider for more information about these programs. Excessive drinking can lead to Alcohol Syndrome, a pattern of defects that includes mental retardation, as well as cardiovascular;skeletal and facial abnormalities. You may not know if you have a drinking problem. Her are some signs: Drinking alone when you feel angry or sad. Drinking in a pattern (every day or every week at the same time) Planning activities around drinking Drinking to relieve pain or stress Drinking more than you meant to or after you told yourself you wouldn't Drinking to get drunk Thinking a lot about drinking Showing a personality change when you drink. Talk to your health care provider honestly about your use of alcohol. He or she can give you more information and refer you for counseling or treatment, if needed. Exercise Review your exercise program with your health are provider. Generally, you may continue your normalexercise routine throughout unless you are instructed to decrease or modify your activities. Your Diet Your health care provider will talk about your dietary habits, including your consumption of caffeine. To ensure a healthy , you should follow a healthy, well-balanced diet and eat a varietyor foods to get all the nutrients you need. Choose foods high in starch and fiber. Make sure you are getting enough vitamins and minerals in your daily diet: eat and drink at least 4 servings of dairy products and calcium-rich foods a day, choose at least one source each of Vitamin C, Vitamin A andfolic acid every day. Caffeine consumption: When planning a , it is recommended that you do not have more than 300mg. of caffeine per day (two 5-ounce cups of coffee, three 5-ounce cups of tea or two 12-ounce glasses of caffeinated soda). Remember, chocolate contains caffeine -- the amount of caffeine in a chocolate bar is equal to 1/4 cup of coffee. vitamins: Before considering a , you should begin taking a daily vitamin that contains folic acid. Folic acid has been shown to decrease the risk of having a baby with a neural tubedefect, such as spina bifida - a serious condition in which the brain and spinal cord do not form normally. The [employer] recommends taking 400 micrograms of folic acid daily before conception and in early . Many pharmacies sell [id number] vitamins that do not require a prescription. Other components of preconception counseling appointment Your health care provider may also: Perform a physical exam: to evaluate your heart, lungs, breasts, thyroid and abdomen. A pelvic exammay also be performed. Order lab tests: rubella, hepatitis, complete blood count (CBC), HIV, others as indicated Discuss how to chart menstrual cycles to detect ovulation and determine the time when you are most likely to get . Discuss genetic counseling which can help couples become aware of their chances of having a child with a defect. Genetic counseling is advised for women who will be 35 or older when the baby isdue, for couples who have already had a child with a defect or couples with a family history of genetic problems, defects or mental retardation. [facility] 2001,08/24 [facility] History of Present illness Narrative* Sulma Bartholomew APRN.CNM - 12/28/2021 3:53 PM EDT Fadumo is a 26 year old who presents for an annual gynecologic exam without complaints. Patient desires and requests IUD to be removed. 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 Menses: no menses - Mirena IUD. Contraception: IUD HPV vaccine: Yes Last Pap: 09/24/2019 abnormal, ASCUS - HPV + HPV: 09/26/2019 positive History of abnormal pap: Yes Last mammogram: never Sexually active: Yes History of STDS: chlamydia Time with current partner: 9 months Pain with intercourse: No Postcoital bleeding: No OB History T1 L1 SAB0 IAB0 Ectopic0 Multiple0 Live Births1 Communications Clerk History LMP: 04/27/2020, IUD Age at Menarche: Age at First : Age at Menopause: Communications Clerk History Comments: Sexual Activity: Yes; Male Contraception: I.U.D. 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 Juvenile osteochondrosis of lower extremity, excluding foot 2004, resolved Migraine headache 05/26/2011 other Sever's Disease, 2006, resolved Other acne 01/27/2010 Pain in joint, site unspecified AC joint tear, 2006 Patient requested diagnostic testing 04/18/2012 04/18/2012 Patient desires early screening in with sequential testing. Poor support system complicating 04/18/2012 04/18/2012The father of the baby is aware that she is , but does not wish to be involved. Patient states her parents are very supportive. Patient is tearful for some of this visit today due to the father of the baby. She states he has put pressure on her in the past to have an , butshe does not wish to do that. Patient was given a brochure on the care center and WIC. Rosacea 01/27/2010 Rubella non-immune status 04/22/2012 Skin cancer Teen 04/22/2012 July 04, 2012 Flu vaccine given Telangiectasia 01/27/2010 PAST SURGICAL HISTORY Procedure Laterality Date INSERTION OF IUD 12/02/2013 MIRENA IUD 2019 PAST SURGICAL HISTORY OF 01/01/2010 Removal of 4 Mereta Teeth PAST SURGICAL HISTORY OF basal cell carcinoma removed from scalp FAMILY HISTORY Problem Relation Age of Onset Heart Father TRIPLE BYPASS SURGERY Hypertension Father Diabetes Father Heart Maternal Grandmother from heart problems Heart Maternal Grandfather from heart problems Cancer Maternal Grandfather lung Hypertension Maternal Grandfather SOCIAL HISTORY Social History Tobacco Use Smoking status: Current Some Day Smoker Packs/day: 0.50 Years: 0.60 Pack years: 0.30 Smokeless tobacco: Never Used Tobacco comment: patient vapes Vaping Use Vaping Use: current everyday user Substances: Nicotine Devices: Pre-filled or refillable cartridge Substance Use Topics Alcohol use: Not Currently Drug use: No REVIEW OF SYSTEMS Abdomen: No abdominal pain, nausea, vomiting, diarrhea, or constipation. No bloating, early satiety, indigestion, or increased flatulence. Bladder: No dysuria, gross hematuria, urinary frequency, urinary urgency, or incontinence. Breast: No breast lumps, nipple d/c, overlying skin changes, redness or skin retraction. Allergies and current medication updated:Yes EXAM: BP 100/60 Ht 5' 6 (1.68m) Wt 182 lb 3.2 oz (82.6kg) LMP 04/27/2020 BMI 29.42 kg/(m^2). GENERAL: pleasant, female in no apparent distress HEENT: Normocephalic, atraumatic, mucus membranes moist and no lesions NECK: Supple and full range of motion DERMATOLOGY: Normal and without lesions BREAST: soft and non-tender CHEST: Normal inspiratory effort ABDOMEN: soft, non-tender and no masses PELVIC: external genitalia normal, normal Bartholin's glands, urethra, Axson's glands, no vulvar lesions, no cervical lesions, good vaginal support, physiologic discharge present, normal appearing perineal body and perianal region. IUD strings visible at inner os BIMANUAL: uterus normal size, shape and consistency, no adnexal masses, non- tender, no cervical motion tenderness RECTOVAGINAL: deferred. NEURO: alert and oriented x3,exam grossly non-focal EXTREMITIES: normal ASSESSMENT/PLAN: 1) Health maintenance: Pap done with reflex HPV. Nutrition, exercise and routine health maintenance exams reviewed. Calcium/Vitamin D supplementation information provided. 2) Contraception: IUD- Desires removal for Briefly discussed preconception- patient to start vitamin with folic acid. She is in the process of quitting vaping. She is not around any hazardous chemicals or environments 3) STD screening: Accepted STD check for Gonorrhea and Chlamydia. 4) Follow up 2 weeks for IUD removal Sulma Bartholomew APRN.CNM documented [facility] History of Present illness Narrative* Wai Magallon APRN.CNP - 12/23/2021 1:24 PM EDT Images from the original note were not included. Subjective HPI Nontoxic-appearing female presents urgent care chief complaint rash. Duration of symptom 1 day. Associated symptoms pruritic erythematous rash. Patient states first noticed this yesterday. States rash is itchy. No pain. States she has scratched area. Has not used any OTC medications. Denies any fever body aches chills nausea vomiting abdominal pain chest pain shortness of breath change in bowel or bladder habits. Past medical history prescription medication use allergies reviewed. Denies chanceof . 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 Juvenile osteochondrosis of lower extremity, excluding foot 2004, resolved Migraine headache 05/26/2011 other Sever's Disease, 2006, resolved Other acne 01/27/2010 Pain in joint, site unspecified AC joint tear, 2005 Patient requested diagnostic testing 04/18/2012 04/18/2012 Patient desires early screening in with sequential testing. Poor support system complicating 04/18/2012 04/18/2012The father of the baby is aware that she is , but does not wish to be involved. Patient states her parents are very supportive. Patient is tearful for some of this visit today due to the father of the baby. She states he has put pressure on her in the past to have an , butshe does not wish to do that. Patient was given a brochure on the care center and WIC. Rosacea 01/27/2010 Rubella non-immune status 04/22/2012 Skin cancer Teen 04/22/2012 July 04, 2012 Flu vaccine given Telangiectasia 01/27/2010 PAST SURGICAL HISTORY Procedure Laterality Date INSERTION OF IUD 12/02/2013 MIRENA IUD 2019 PAST SURGICAL HISTORY OF 01/01/2010 Removal of 4 Mereta Teeth PAST SURGICAL HISTORY OF basal cell carcinoma removed from scalp ALLERGIES Zyrtec [Cetirizine Hcl] MEDICATIONS amphetamine-dextroamphetamine XR (ADDERALL XR) 20 mg 24 hr capsule Take 1 capsule by mouth once daily for 30 days. Do not start before November 28, 2021. [START ON 12/28/2021] amphetamine-dextroamphetamine XR (ADDERALL XR) 20 mg 24 hr capsule Take 1 capsule by mouth once daily for 30 days. Do not start before December 28, 2021. [START ON 01/27/2022] amphetamine-dextroamphetamine XR (ADDERALL XR) 20 mg 24 hr capsule Take 1 capsule by mouth once daily for 30 days. Do not start before January 27, 2022. amphetamine-dextroamphetamine XR (ADDERALL XR) 30 mg 24 hr capsule Take 1 capsule by mouth once daily for 30 days. Do not start before November 28, 2021. [START ON 12/28/2021] amphetamine-dextroamphetamine XR (ADDERALL XR) 30 mg 24 hr capsule Take 1 capsule by mouth once daily for 30 days. Do not start before December 28, 2021. [START ON 01/27/2022] amphetamine-dextroamphetamine XR (ADDERALL XR) 30 mg 24 hr capsule Take 1 capsule by mouth once daily for 30 days. Do not start before January 27, 2022. tiZANidine (ZANAFLEX) 2 mg tablet Take 1 tablet by mouth every 6 hours as needed. omeprazole (PRILOSEC) 20 mg capsule Take 1 capsule by mouth once daily. citalopram (CELEXA) 20 mg tablet Take 1 tablet by mouth once daily. For depression nicotine (NICOTROL) 10 mg inhaler Use 6-16 cartridge daily, with each cartridge take 10 short puffs, may use over 20 minutes. No more than 16 cartridges in 24 hours. Do not smoke or vape once you have started medication. Use over 6-12 weeks, then taper use. unnkhbmcsx-crercx-v-sali-menth (NUDROXIPAK N-500) 500 mg-0.025 %- 25 %-6 % kit meloxicam (MOBIC) 15 mg tablet Take 15 mg by mouth once daily. albuterol HFA (PROAIR HFA) 90 mcg/actuation inhaler Inhale 2 Puffs as instructed every 4 hours as needed for Wheezing/Shortness of Breath. Used for seasonal allergies acetaminophen (TYLENOL) 500 mg tablet Take 2 tablets by mouth every 8 hours. levonorgestrel (MIRENA) 20 mcg/24 hours (5 yrs) 52 mg IUD 1 Each by INTRAUTERINE route one time only. pregabalin (LYRICA) 25 mg capsule Take 1 at night for 5 nights. Then take 2 at night for 5 nights. Then take 3 at night. FAMILY HISTORY Problem Relation Age of Onset Heart Father TRIPLE BYPASS SURGERY Hypertension Father Diabetes Father Heart Maternal Grandmother from heart problems Heart Maternal Grandfather from heart problems Cancer Maternal Grandfather lung Hypertension Maternal Grandfather Social History Tobacco Use Smoking status: Current Some Day Smoker Packs/day: 0.50 Years: 0.60 Pack years: 0.30 Smokeless tobacco: Never Used Tobacco comment: patient vapes Vaping Use Vaping Use: current everyday user Substances: Nicotine Devices: Pre-filled or refillable cartridge Substance Use Topics Alcohol use: Not Currently Drug use: No BP 108/62 Pulse 108 Temp 36.9 C (98.4 F) Resp 16 Wt 83.7 kg (184 lb 9.6 oz) LMP 04/27/2020 SpO2 98% BMI 28.91 kg/m Hr 89 Review of Systems Constitutional: Negative for chills, fever and malaise/fatigue. HENT: Negative for congestion, ear discharge, ear pain, sinus pain and sore throat. Eyes: Negative for blurred vision, pain, discharge and redness. Respiratory: Negative for cough, hemoptysis, sputum production, shortness of breath, wheezing and stridor. Cardiovascular: Negative for chest pain. Gastrointestinal: Negative for abdominal pain, diarrhea, nausea and vomiting. Musculoskeletal: Negative for myalgias. Skin: Positive for itching and rash. Neurological: Negative for dizziness and headaches. Objective Physical Exam Constitutional: General: She is not in acute distress. Appearance: She is not diaphoretic. HENT: Head: Normocephalic. Mouth/Throat: Mouth: Mucous membranes are moist. Pharynx: Oropharynx is clear. No oropharyngeal exudate or posterior oropharyngeal erythema. Eyes: Conjunctiva/sclera: Conjunctivae normal. Pupils: Pupils are equal, round, and reactive to light. Cardiovascular: Rate and Rhythm: Normal rate and regular rhythm. Heart sounds: Normal heart sounds. Pulmonary: Effort: Pulmonary effort is normal. No tachypnea, accessory muscle usage or respiratory distress. Breath sounds: Normal breath sounds. No stridor. Abdominal: Palpations: Abdomen is soft. Tenderness: There is no abdominal tenderness. Musculoskeletal: Cervical back: Normal range of motion and neck supple. No rigidity or tenderness. Lymphadenopathy: Cervical: No cervical adenopathy. Skin: General: Skin is warm and dry. Comments: Maculopapular rash noted to bilateral lower lower legs. Excoriation noted. No evidence ofinfection. No desquamation of skin. Neurological: Mental Status: She is alert and oriented to person, place, and time. ASSESSMENT/PLAN: 1. Rash - ICD9: 782.1, ICD10: R21 Nontoxic-appearing. No systemic symptoms. Patient diagnosed with rash. Suspicious contact dermatitis. Patient will be placed on steroid cream. Will not use on areas of thin skin. Patient was educatedon supportive therapies. Patient will follow up with primary care provider as needed. Patient was instructed to immediately proceed to emergency room for any new, worsening, or symptoms lasting longer than anticipated. The patient's clinical presentation is otherwise unremarkable at this time. Based on exam and clinical finding, the patient is stable for discharge. Plan of care was discussed withpatient. Patient verbalizes understanding and agrees to plan of care. This note was generated using[employer] software. It may contain errors in wording, punctuation, or spelling. Wai Magallon APRN.ANISHA documented in this encounterBu[facility]05-[facility] History of Present illness Narrative* Amaya Rasmussen APRN.CNP, DNP - 11/25/2021 2:49 PM EDT Chief Complaint Patient presents with: Follow Up Anxiety This Team Access Model encounter involved medical decision making outside of a scheduled office visit. Patient was offered a virtual/telemedicine appointment in lieu of an office visit due to recommendations to reduce patient exposure to COVID-19. Patient agrees to the visit: Yes Patient Location: [facility] Fadumo Hensley is a 26 year old female who is contacted today for a virtual visit This is an established patient of Dr. Amaya Rasmussen APRN.ANISHA, DEO ADD, Anxiety and depression: Contacted this office today requesting to have her Adderall prescription picked up today. She contacted the Candis Cast[facility]eda trying to coordinate her Adderall prescriptions with her other prescription she needed pickup. Garry refused to refill her Adderall because he stated it was 1 to 2 days early. Per the report she had her Adderall prescription filled on August 05, September 01, September 29, October 29 and November 28 was her next Adderall refill. She had an argument with the pharmacist at [facility]. Garry pharmacist then contacted this clinician's office. Garry refusedto refill her current Adderall prescriptions and any future medication prescriptions and refills. [facility] stated she will never fill another prescription here at this pharmacy. Ireviewed the performed a medication review and medical record review. Meds refilled. Please inform the patient that they may olive picker the prescription at the [facility] pharmacy. Notes with the patient and her previous refill request. States she is not abusing Adderall. States her mother dispenses her prescriptions given her past substance abuse use. 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 Juvenile osteochondrosis of lower extremity, excluding foot 2004, resolved Migraine headache 05/26/2011 other Sever's Disease, 2006, resolved Other acne 01/27/2010 Pain in joint, site unspecified AC joint tear, 2005 Patient requested diagnostic testing 04/18/2012 04/18/2012 Patient desires early screening in with sequential testing. Poor support system complicating 04/18/2012 04/18/2012The father of the baby is aware that she is , but does not wish to be involved. Patient states her parents are very supportive. Patient is tearful for some of this visit today due to the father of the baby. She states he has put pressure on her in the past to have an , butshe does not wish to do that. Patient was given a brochure on the care center and WIC. Rosacea 01/27/2010 Rubella non-immune status 04/22/2012 Skin cancer Teen 04/22/2012 July 04, 2012 Flu vaccine given Telangiectasia 01/27/2010 Previous Surgical History PAST SURGICAL HISTORY Procedure Laterality Date INSERTION OF IUD 12/02/2013 MIRENA IUD 2019 PAST SURGICAL HISTORY OF 01/01/2010 Removal of 4 Mereta Teeth PAST SURGICAL HISTORY OF basal cell carcinoma removed from scalp Family History FAMILY HISTORY Problem Relation Age of Onset Heart Father TRIPLE BYPASS SURGERY Hypertension Father Diabetes Father Heart Maternal Grandmother from heart problems Heart Maternal Grandfather from heart problems Cancer Maternal Grandfather lung Hypertension Maternal Grandfather Patient Allergies ALLERGIES Allergen Reactions Zyrtec [Cetirizine * Intolerance tremors Current Medications Current Outpatient Medications on File Prior to Visit Medication Sig amphetamine-dextroamphetamine XR (ADDERALL XR) 20 mg 24 hr capsule Take 2 capsules by mouth once daily for 30 days. tiZANidine HCl 2 mg capsule albuterol HFA (PROAIR HFA) 90 mcg/actuation inhaler Inhale 2 Puffs as instructed every 4 hours as needed for Wheezing/Shortness of Breath. Used for seasonal allergies amitriptyline (ELAVIL) 10 mg tablet Take 1-2 tablets by mouth daily at bedtime. gabapentin (NEURONTIN) 300 mg capsule Take 1 capsule by mouth as directed for 30 days. Titration schedule: take 1 capsule at bedtime x1 week, then BID x1 week, then TID acetaminophen (TYLENOL) 500 mg tablet Take 2 tablets by mouth every 8 hours. omeprazole (PRILOSEC) 20 mg capsule levonorgestrel (MIRENA) 20 mcg/24 hours (5 yrs) 52 mg IUD 1 Each by INTRAUTERINE route one time only. Nicotine 21-14-7 mg/24 hr ptds Apply 21 mg as directed once daily. (Patient not taking: Reported on08/17/2020 ) No current facility-administered medications on file prior to visit. Social History Social History Tobacco Use Smoking status: Former Smoker Packs/day: 0.50 Years: 0.60 Pack years: 0.30 Smokeless tobacco: Never Used Tobacco comment: patient vapes Vaping Use Vaping Use: current everyday user Substances: Nicotine Devices: Pre-filled or refillable cartridge Substance Use Topics Alcohol use: Not Currently Drug use: No Review of Symptoms GENERAL: No malaise or fatigue. No fevers. Neuro/Psyc: Anxisouness, tearful EXAM: LMP 04/27/2020 Virtual visit completed using video, limited exam completed. Patient sounds or appears ill: No General Appearance: Well appearing, alert, in no acute distress, well-hydrated, well nourished. Skin: Skin color normal Head: Normocephalic. No facial swelling or redness. EENT: Eyes nonreddened. No discharge Neck: No mass or lesions. No swelling. FROM Patient is not able to speak in complete sentences: No Patient has labored breathing: No. Patient is audibly coughing: No Psych: Attitude - cooperative, easily engaged in conversation Affect - Euthymic, normal mood Mental status: Alert. Speech is clear and fluent with good repetition, comprehension Appearance - Normal hygiene and grooming appropriate Coordination: No abnormal or extraneous movements. Gait/Stance: Posture is normal. Health Maintenance List SPIROMETRY Never done ONE PNEUMOVAX PRIOR TO AGE 65 Never done DTAP,TDAP,TD(7 - Td or Tdap) due on 11/14/2017 INFLUENZA(Season Ended) due on 03/23/2021 ANNUAL PCP TEAM CHRONIC DISEASE VISIT due on 12/06/2021 DEPRESSION SCREENING due on 12/08/2021 PAP TESTING due on 09/18/2022 HEPATITIS C SCREENING Completed HIV SCREENING Completed MENINGOCOCCAL CONJUGATE Aged Out Data reviewed Last 5 Encounter BP Readings: Date: BP: 10/01/2021 122/80 03/23/2021 100/64 03/19/2021 118/84 01/04/2021 104/62 12/28/2020 110/70 BMI Readings from Last 5 Encounters: 10/01/21 : 29.60 kg/m 03/23/21 : 28.82 kg/m 03/19/21 : 28.94 kg/m 01/04/21 : 26.78 kg/m 12/28/20 : 27.57 kg/m Last 5 Encounter Wt Readings: Date: Wt: 10/01/2021 85.7 kg (189 lb) 03/23/2021 83.5 kg (184 lb) 03/19/2021 83.8 kg (184 lb 12.8 oz) 01/04/2021 77.6 kg (171 lb) 12/28/2020 79.8 kg (176 lb) Medication and allergy list reviewed, reconciled and updated 11/25/2021 ASSESSMENT/PLAN: 1. Attention deficit hyperactivity disorder (ADHD), predominantly inattentive type - ICD9: 314.00, ICD10: F90.0 (primary diagnosis) MDM: [facility] pharmacy contacted this provider and stated they would no longer fill her Adderall prescription. [facility] pharmacy felt she was abusing her Adderall prescriptions. Stated they had dispensed 120 days worth of prescription but only 112 days had passed. Therefore they were not going to dispense any more. [place] she was abusing. She was trying to refill her prescriptions early. Jonh the pharmacist at [facility] had a very heated argument with the patient. Patient states she called back and apologized. Her Adderall prescriptions were then resubmitted to [facility] with a start date on November 28. I extensively reviewed with the patient that she can only olive picker her Adderall prescriptions on the day that they were ordered for. No early pickups will be authorized for any reason. She understood. States she is not abusing the Adderall. We will continue to monitor her usage. She was in agreement with this plan going forward. Currently I have a urine tox screen and pain screen in the system for the patient to complete ADHD patient recommendations: ?Follow a daily schedule ?Keep distractions to a minimum ?Provide specific and logical places for school work ?Set small, reachable, and clear goals ?Use charts and checklists to stay on task ?Suggest physical activity breaks during tasks that require attention ?Limit choices ?Find activities where you can be successful (eg, hobbies, sports) - DEXTROAMPHETAMINE-AMPHETAMINE ER 30 MG 24HR CAPSULE,EXTEND RELEASE - DEXTROAMPHETAMINE-AMPHETAMINE ER 30 MG 24HR CAPSULE,EXTEND RELEASE - DEXTROAMPHETAMINE-AMPHETAMINE ER 30 MG 24HR CAPSULE,EXTEND RELEASE - DEXTROAMPHETAMINE-AMPHETAMINE ER 20 MG 24HR CAPSULE,EXTEND RELEASE - DEXTROAMPHETAMINE-AMPHETAMINE ER 20 MG 24HR CAPSULE,EXTEND RELEASE - DEXTROAMPHETAMINE-AMPHETAMINE ER 20 MG 24HR CAPSULE,EXTEND RELEASE 2. Anxiety with depression - ICD9: 300.4, ICD10: F41.8 Recommend: Working to reduce overall frequency, intensity, and duration of anxiety so that daily functioning is not impaired. Learn and implement coping skills that result in a reduction of anxiety and worry, and improved daily functioning. Discussed sleep hygiene and importance of sleep. Use of social support system for depressive feelings F/u with Behavioral Health Counselor or Therapist as needed Discussed safety plan: That includes ER, 911 and Crisis hotline # [phone] If symptoms worsen return to clinic or initiate safety plan Amaya Rasmussen APRN.[employer], DNP This note was completed with [employer] dictation software. Note was reviewed for accuracy. There may be minor misspellings or grammar miscues with [employer] Dictation. [facility] [address] [place] [address] Total appointment time on virtual with patient = 17 minutes This note was copied from previous note and exam dated 11/23/21 . Author is Amaya Rasmussen APRN.DEO RAMIREZ note reviewed and changes have been made or updates noted in the copy & paste portion of an encounter. documented in this encounterBu[facility]05-[facility]22 Miscellaneous Notes* Telephone Encounter - Amaya Rasmussen APRN.DEO RAMIREZ - 11/25/2021 12:45 PM EDT Fadumo, I talked with the [facility] - Jonh. They will no longer fill your Adderall Rx becauseof your improper behavior and the way you talked to the staff there at [facility]. I reviewed with the Pharmacists your past Rx fills. You filled her Adderall on on 08/05, 09/01, 09/29,10/29. You had requested fill early dates almost each month. Repetitive early fill dates is not acceptable and closely monitored by the pharmacy, [facility] and this office. The pharmacist stated they dispenced 120 days of pills over that time out of 112 total days. Therefore you should have 8 extra pills. Therefore I am concerned about Adderall abuse. Your Adderall will only be filled on the fill date prescribed by me and no early pick or fill will be authorized no matter what the excuse or circumstance. There are no exceptions. If you are unable to follow those rules, then I will no longer be able to prescribe you your Adderall at all. The following approved medication requests have been transmitted electronically - To [facility]. Signed Prescriptions Disp Refills amphetamine-dextroamphetamine XR (ADDERALL XR) 20 mg 24 hr capsule 30 capsule 0 Sig: Take 1 capsule by mouth once daily for 30 days. Do not start before November 28, 2021. STACY Class: C-II Authorizing Provider: AMAYA RASMUSSEN amphetamine-dextroamphetamine XR (ADDERALL XR) 20 mg 24 hr capsule 30 capsule 0 Sig: Take 1 capsule by mouth once daily for 30 days. Do not start before December 28, 2021. STACY Class: C-II Authorizing Provider: AMAYA RASMUSSEN amphetamine-dextroamphetamine XR (ADDERALL XR) 20 mg 24 hr capsule 30 capsule 0 Sig: Take 1 capsule by mouth once daily for 30 days. Do not start before January 27, 2022. STACY Class: C-II Authorizing Provider: AMAYA RASMUSSEN amphetamine-dextroamphetamine XR (ADDERALL XR) 30 mg 24 hr capsule 30 capsule 0 Sig: Take 1 capsule by mouth once daily for 30 days. Do not start before November 28, 2021. STACY Class: C-II Authorizing Provider: AMAYA RASMUSSEN amphetamine-dextroamphetamine XR (ADDERALL XR) 30 mg 24 hr capsule 30 capsule 0 Sig: Take 1 capsule by mouth once daily for 30 days. Do not start before December 28, 2021. STACY Class: C-II Authorizing Provider: AMAYA RASMUSSEN amphetamine-dextroamphetamine XR (ADDERALL XR) 30 mg 24 hr capsule 30 capsule 0 Sig: Take 1 capsule by mouth once daily for 30 days. Do not start before January 27, 2022. STACY Class: C-II Authorizing Provider: AMAYA RASMUSSEN APRN.DEO RAMIREZ * Telephone Encounter - Louann Toussaint LPN - 11/25/2021 11:39 AM EDT Patient calling, states that pharmacist from called and told her that he would not fill the prescription. Patient is asking if prescription can be sent to [facility] wstr. States that she will fill it for whenever it is due. States that she still has a couple of tablets left but was trying to get whileshe was out so she does not need to go out more since she has Covid. Please advise. * Telephone Encounter - Amaya Rasmussen APRN.DEO RAMIREZ - 11/25/2021 11:04 AM EDT Inform patient I changed the prescription to be picked up today. The following approved medication requests have been transmitted electronically. Signed Prescriptions Disp Refills amphetamine-dextroamphetamine XR (ADDERALL XR) 30 mg 24 hr capsule 30 capsule 0 Sig: Take 1 capsule by mouth once daily for 30 days. STACY Class: C-II LG: No Authorizing Provider: AMAYA RASMUSSEN APRN.CNP, DNP * Telephone Encounter - Radha Palacio RN - 11/25/2021 10:48 AM EDT Pt reports that she did call the pharmacy, but the way the provider has the date put in for the Adderall she isn't able to pick it up today. She is asking if the provider will put the olive picker date astoday, but the start date will still be tomorrow. * Telephone Encounter - Amaya Rasmussen APRN.CNP, DNP - 11/25/2021 9:36 AM EDT I would have the patient call the pharmacy and ask. Amaya Rasmussen APRN.CNP, DNP * Telephone Encounter - Louann Toussaint LPN - 11/25/2021 9:11 AM EDT Patient calling, states that she was just diagnosed with Covid. She is not sure if she will be out tomorrow in order to olive picker her prescription. States that she is out and about now and asking if she would be able to pick it up today. Please advise. documented in this encounterBu[facility]05-04-[facility]22 History of Present illness Narrative* Amaya Rasmussen APRN.CNP, DNP - 11/23/2021 3:17 PM EDT Chief Complaint Patient presents with: Follow Up This Team Access Model encounter involved medical decision making outside of a scheduled office visit. Patient was offered a virtual/telemedicine appointment in lieu of an office visit due to recommendations to reduce patient exposure to COVID-19. Patient agrees to the visit: Yes Patient Location: [facility] Fadumo Hensely is a 26 year old female who is contacted today for a virtual visit This is an established patient of Dr. Amaya Rasmussen APRN.[employer], DNP Anxiety and depression: Previously diagnosed by Derm with BCC of the scalp. This has caused situational anxiety and a significant amount of stress. Stress with other chronic medical conditions has caused an exacerbation of her depression. She has had difficulty completing her schooling. Started on Celexa 20 mg and recently feels like her anxiety is improving. Would like to discontinue her Celexa.States improved control of sxms. Denies side effects from medication. ADD: Has ADD and on Adderall. Requesting refill of Adderall. Increased Adderall to 50 mg at last appointment. Started on Lyrica by her pain management provider. Since starting the Lyrica feels like her Adderall is not as effective. Denies side effects from Adderall. Does not like how the Lyrica makes her feel. Caused some brain fogginess. Would like to get off her Lyrica. Happy with her response and increase of the Adderall to 50 mg. Feels like her symptoms are controlled Past medical history, appointments, medications, allergies reviewed 11/23/2021 Previous Medical History PAST MEDICAL HISTORY Diagnosis Date ASCUS with positive high risk HPV cervical 09/26/2019 Asthma 11/29/2011 ATTN DEFICIT NONHYPERACT 11/27/2007 Chest pain 04/29/2010 Chlamydia infection 09/23/2013 Depression 05/26/2011 Depression complicating , antepartum 08/02/2012 08/02/12: zoloft 50mg Daily Hepatitis C 2017 2018 cured after medication course. Juvenile osteochondrosis of lower extremity, excluding foot 2004, resolved Migraine headache 05/26/2011 other Sever's Disease, 2006, resolved Other acne 01/27/2010 Pain in joint, site unspecified AC joint tear, 2005 Patient requested diagnostic testing 04/18/2012 04/18/2012 Patient desires early screening in with sequential testing. Poor support system complicating 04/18/2012 04/18/2012The father of the baby is aware that she is , but does not wish to be involved. Patient states her parents are very supportive. Patient is tearful for some of this visit today due to the father of the baby. She states he has put pressure on her in the past to have an , butloraine does not wish to do that. Patient was given a brochure on the care center and WIC. Rosacea 01/27/2010 Rubella non-immune status 04/22/2012 Skin cancer Teen 04/22/2012 July 04, 2012 Flu vaccine given Telangiectasia 01/27/2010 Previous Surgical History PAST SURGICAL HISTORY Procedure Laterality Date INSERTION OF IUD 12/02/2013 MIRENA IUD 2019 PAST SURGICAL HISTORY OF 01/01/2010 Removal of 4 Mereta Teeth PAST SURGICAL HISTORY OF basal cell carcinoma removed from scalp Family History FAMILY HISTORY Problem Relation Age of Onset Heart Father TRIPLE BYPASS SURGERY Hypertension Father Diabetes Father Heart Maternal Grandmother from heart problems Heart Maternal Grandfather from heart problems Cancer Maternal Grandfather lung Hypertension Maternal Grandfather Patient Allergies ALLERGIES Allergen Reactions Zyrtec [Cetirizine * Intolerance tremors Current Medications Current Outpatient Medications on File Prior to Visit Medication Sig amphetamine-dextroamphetamine XR (ADDERALL XR) 20 mg 24 hr capsule Take 2 capsules by mouth once daily for 30 days. tiZANidine HCl 2 mg capsule albuterol HFA (PROAIR HFA) 90 mcg/actuation inhaler Inhale 2 Puffs as instructed every 4 hours as needed for Wheezing/Shortness of Breath. Used for seasonal allergies amitriptyline (ELAVIL) 10 mg tablet Take 1-2 tablets by mouth daily at bedtime. gabapentin (NEURONTIN) 300 mg capsule Take 1 capsule by mouth as directed for 30 days. Titration schedule: take 1 capsule at bedtime x1 week, then BID x1 week, then TID acetaminophen (TYLENOL) 500 mg tablet Take 2 tablets by mouth every 8 hours. omeprazole (PRILOSEC) 20 mg capsule levonorgestrel (MIRENA) 20 mcg/24 hours (5 yrs) 52 mg IUD 1 Each by INTRAUTERINE route one time only. Nicotine 21-14-7 mg/24 hr ptds Apply 21 mg as directed once daily. (Patient not taking: Reported on08/17/2020 ) No current facility-administered medications on file prior to visit. Social History Social History Tobacco Use Smoking status: Former Smoker Packs/day: 0.50 Years: 0.60 Pack years: 0.30 Smokeless tobacco: Never Used Tobacco comment: patient vapes Vaping Use Vaping Use: current everyday user Substances: Nicotine Devices: Pre-filled or refillable cartridge Substance Use Topics Alcohol use: Not Currently Drug use: No Review of Symptoms GENERAL: No malaise or fatigue. No fevers. Neuro/Psyc: Anxisouness EXAM: [facility] 04/27/2020 Virtual visit completed using video, limited exam completed. Patient sounds or appears ill: No General Appearance: Well appearing, alert, in no acute distress, well-hydrated, well nourished. Skin: Skin color normal Head: Normocephalic. No facial swelling or redness. EENT: Eyes nonreddened. No discharge Neck: No mass or lesions. No swelling. FROM Patient is not able to speak in complete sentences: No Patient has labored breathing: No. Patient is audibly coughing: No Psych: Attitude - cooperative, easily engaged in conversation Affect - Euthymic, normal mood Mental status: Alert. Speech is clear and fluent with good repetition, comprehension Appearance - Normal hygiene and grooming appropriate Coordination: No abnormal or extraneous movements. Gait/Stance: Posture is normal. Health Maintenance List SPIROMETRY Never done ONE PNEUMOVAX PRIOR TO AGE 65 Never done DTAP,TDAP,TD(7 - Td or Tdap) due on 11/14/2017 INFLUENZA(Season Ended) due on 03/23/2021 ANNUAL PCP TEAM CHRONIC DISEASE VISIT due on 12/06/2021 DEPRESSION SCREENING due on 12/08/2021 PAP TESTING due on 09/18/2022 HEPATITIS C SCREENING Completed HIV SCREENING Completed MENINGOCOCCAL CONJUGATE Aged Out Data reviewed Last 5 Encounter BP Readings: Date: BP: 10/01/2021 122/80 03/23/2021 100/64 03/19/2021 118/84 01/04/2021 104/62 12/28/2020 110/70 BMI Readings from Last 5 Encounters: 10/01/21 : 29.60 kg/m 03/23/21 : 28.82 kg/m 03/19/21 : 28.94 kg/m 01/04/21 : 26.78 kg/m 12/28/20 : 27.57 kg/m Last 5 Encounter Wt Readings: Date: Wt: 10/01/2021 85.7 kg (189 lb) 03/23/2021 83.5 kg (184 lb) 03/19/2021 83.8 kg (184 lb 12.8 oz) 01/04/2021 77.6 kg (171 lb) 12/28/2020 79.8 kg (176 lb) Medication and allergy list reviewed, reconciled and updated 11/23/2021 ASSESSMENT/PLAN: 1. Attention deficit hyperactivity disorder (ADHD), predominantly inattentive type - ICD9: 314.00, ICD10: F90.0 (primary diagnosis) Clinically stable. Continue at 50mg daily. follow up in 3 months ADHD patient recommendations: ?Follow a daily schedule ?Keep distractions to a minimum ?Provide specific and logical places for school work ?Set small, reachable, and clear goals ?Use charts and checklists to stay on task ?Suggest physical activity breaks during tasks that require attention ?Limit choices ?Find activities where you can be successful (eg, hobbies, sports) - TOX SCREEN ROUT UR - PAIN PANEL, UR QUANT - DEXTROAMPHETAMINE-AMPHETAMINE ER 30 MG 24HR CAPSULE,EXTEND RELEASE - DEXTROAMPHETAMINE-AMPHETAMINE ER 30 MG 24HR CAPSULE,EXTEND RELEASE - DEXTROAMPHETAMINE-AMPHETAMINE ER 30 MG 24HR CAPSULE,EXTEND RELEASE - DEXTROAMPHETAMINE-AMPHETAMINE ER 20 MG 24HR CAPSULE,EXTEND RELEASE - DEXTROAMPHETAMINE-AMPHETAMINE ER 20 MG 24HR CAPSULE,EXTEND RELEASE - DEXTROAMPHETAMINE-AMPHETAMINE ER 20 MG 24HR CAPSULE,EXTEND RELEASE 2. Anxiety with depression - ICD9: 300.4, ICD10: F41.8 Clinically Stable Would like to wean herself off of Celexa. Recommend taking 1/2 tablet x 10 days. follow up in 3 months Recommend: Working to reduce overall frequency, intensity, and duration of anxiety so that daily functioning is not impaired. Learn and implement coping skills that result in a reduction of anxiety and worry, and improved daily functioning. Discussed sleep hygiene and importance of sleep. Use of social support system for depressive feelings F/u with Behavioral Health Counselor or Therapist as needed Discussed safety plan: That includes ER, 911 and Crisis hotline # 164.823.2014 If symptoms worsen return to clinic or initiate safety plan Amaya Rasmussen APRN.[employer], DNP This note was completed with [employer] dictation software. Note was reviewed for accuracy. There may be minor misspellings or grammar miscues with [employer] Dictation. [place] [id number] Total appointment time on virtual with patient = 15 minutes This note was copied from previous note and exam dated 08/22/21 . Author is Amaya Rasmussen APRN.DEO RAMIREZ note reviewed and changes have been made or updates noted in the copy & paste portion of an encounter. documented in this encounterBucyrus [facility] Hospital04-07-2022 Miscellaneous Notes* Telephone Encounter - Ros Garcia Pss - 10/27/2021 4:56 PM EDT Aliyah Costa, pharmacist from [facility] called regarding a recent refill request for this patient. Tiaznadine capsules are not covered but the tablets are. Aliyah is asking for a substition for this placement and can be reached at: [phone] Thank you, Ros Garcia Pss documented in this encounterBucyrus [facility] Hospital04-07-2022 Miscellaneous Notes* Telephone Encounter - Amaya Rasmussen APRN.DEO RAMIREZ - 10/27/2021 4:11 PM EDT Team inform the patient that she will need a virtual or [id number] visit with me for her next refill of her Adderall after this. The following approved medication requests have been transmitted electronically. Pending Prescriptions Disp Refills OMEPRAZOLE 20 MG CAPSULE,DELAYED RELEASE 30 capsule 2 Sig: Take 1 capsule by mouth once daily. LG: No DEXTROAMPHETAMINE-AMPHETAMINE ER 20 MG 24HR CAPSULE,EXTEND RELEASE 30 capsule 0 Sig: Take 1 capsule by mouth once daily for 30 days. Take with 30mg cap. STACY Class: C-II LG: No DEXTROAMPHETAMINE-AMPHETAMINE ER 30 MG 24HR CAPSULE,EXTEND RELEASE 30 capsule 0 Sig: Take 1 capsule by mouth once daily for 30 days. Take with 20mg cap. STACY Class: C-II LG: No Amaya Ramsussen APRN.DEO RAMIREZ * Telephone Encounter - Mounika Weston Ma - 10/27/2021 2:47 PM EDT Pending Prescriptions Disp Refills OMEPRAZOLE 20 MG CAPSULE,DELAYED RELEASE 30 capsule 2 Sig: Take 1 capsule by mouth once daily. LG: No DEXTROAMPHETAMINE-AMPHETAMINE ER 20 MG 24HR CAPSULE,EXTEND RELEASE 30 capsule 0 Sig: Take 1 capsule by mouth once daily for 30 days. Take with 30mg cap. STACY Class: C-II LG: No DEXTROAMPHETAMINE-AMPHETAMINE ER 30 MG 24HR CAPSULE,EXTEND RELEASE 30 capsule 0 Sig: Take 1 capsule by mouth once daily for 30 days. Take with 20mg cap. STACY Class: C-II LG: No ANAYA 08/04/21 NOV not scheduled at this time Last refilled 10/29/21 #30 0 refills Mounika Weston Ma documented in this encounterBucyrus Community Hospital04-07-2022 Miscellaneous Notes* Telephone Encounter - Tosha Lira RN - 10/27/2021 2:47 PM EDT Patient has been identified by name and date of : Yes Pharmacy electronically sent a request for the following prescription(s) If there are any questions regarding this prescription request, call at home at: [phone] (home) [phone] (cell) RX INSTRUCTIONS: Patient aware RX will be sent to pharmacy. No need to notify patient. Date of last refill: 08/02/21 Date of last office visit: 08/02/21 Date of last [facility] visit: 08/02/2021 Date of future office visit: Not Scheduled Pending Prescriptions Disp Refills TIZANIDINE 2 MG CAPSULE 30 capsule 2 Sig: Take 1 capsule by mouth daily at bedtime. LG: No Prescriptions are usually addressed within 24-48 business hours. If patient states they cannot [id number] business hours, please document details. Last 2 Encounter Wt Readings: Date: Wt: 10/01/2021 85.7 kg (189 lb) 03/23/2021 83.5 kg (184 lb) Last 2 Encounter BP Readings: Date: BP: 10/01/2021 122/80 03/23/2021 100/64 CMP: Glucose 98 12/06/2020 BUN 14 12/06/2020 Creatinine 0.54 12/06/2020 Sodium 140 12/06/2020 Potassium 4.1 12/06/2020 Chloride 106 12/06/2020 CO2 24 12/06/2020 Protein, Total 7.3 12/06/2020 Albumin 4.5 12/06/2020 Calcium 9.3 12/06/2020 Alkaline Phosphatase 71 12/06/2020 Bilirubin, Total 1.2 12/06/2020 AST 21 12/06/2020 ALT 20 12/06/2020 No results found for: CHOL No results found for: HDL No results found for: LDL No results found for: TG TSH Date Value Ref Range Status 12/06/2020 0.833 0.270 - 4.200 uU/mL Final Comment: If the patient is , TSH reference range varies by gestational period: First Trimester (weeks 9-12): 0.180-2.990 mcIU/mL Second Trimester: 0.110-3.980 mcIU/mL Third Trimester: 0.480-4.710 mcIU/mL Jonny Hardy et al. A Practical Approach for the Verifications and Determination of Site- and Trimester-Specific Reference Intervals for Thyroid Function tests in . Thyroid, 2019:29:3:412-420. Annamarie E, et al. 2017 Guidelines of the [place] [employer] for the Diagnosis and Management of Thyroid Disease during and the . Thyroid, 2017:27:3:315-389. No results found for: HBA1C Hemoglobin (g/dL) Date Value 04/27/2020 12.4 Hematocrit (%) Date Value 04/27/2020 36.6 WBC (k/uL) Date Value 04/27/2020 6.21 Platelet Count (k/uL) Date Value 04/27/2020 172 Tosha Lira RN documented in this encounterBucyrus Community Hospital10-06-2020 History of Past illness Narrative* Problem Noted Date Resolved Date Urinary incontinence 04/27/2020 04/28/2020 Uncomplicated asthma 09/07/2015 09/18/2019 Overview: 04/18/2012Patient has a history of asthma. She uses an albuterol inhaler when necessary. Routine gynecological examination 12/09/2014 09/18/2019 Overview: [facility]. Chlamydia infection 09/23/2013 09/18/2019 with adoption planned 04/22/2012 10/08/2012 Tobacco use in 04/18/2012 013 Overview: 04/18/2012Pt smokes one to 2 cigarettes a day, down from one half pack per day. Discussed risks of smoking during . Advised pt to quit. Last Assessment & Plan: 07/18/12: Pt is no longer smoking; states she quit about 2weeks ago. Rosario Lam NP Depression 05/26/2011 09/18/2019 Telangiectasia 01/27/2010 09/18/2019 Rosacea 01/27/2010 09/18/2019 Other acne 01/27/2010 09/18/2019 documented as of this encounter (statuses as of 10/27/2021) [facility] History of Past illness Narrative* Problem Noted Date Resolved Date Urinary incontinence 04/27/2020 04/28/2020 Uncomplicated asthma 09/07/2015 09/18/2019 Overview: 04/18/2012Patient has a history of asthma. She uses an albuterol inhaler when necessary. Routine gynecological examination 12/09/2014 09/18/2019 Overview: [facility]. Chlamydia infection 09/23/2013 09/18/2019 with adoption planned 04/22/2012 10/08/2012 Tobacco use in 04/18/2012 013 Overview: 04/18/2012Pt smokes one to 2 cigarettes a day, down from one half pack per day. Discussed risks of smoking during . Advised pt to quit. Last Assessment & Plan: 07/18/12: Pt is no longer smoking; states she quit about 2weeks ago. Rosario Lam NP Depression 05/26/2011 09/18/2019 Telangiectasia 01/27/2010 09/18/2019 Rosacea 01/27/2010 09/18/2019 Other acne 01/27/2010 09/18/2019 documented as of this encounter (statuses as of 10/27/2021) [facility] History of Past illness Narrative* Problem Noted Date Resolved Date Urinary incontinence 04/27/2020 04/28/2020 Uncomplicated asthma 09/07/2015 09/18/2019 Overview: 04/18/2012Patient has a history of asthma. She uses an albuterol inhaler when necessary. Routine gynecological examination 12/09/2014 09/18/2019 Overview: [facility]. Chlamydia infection 09/23/2013 09/18/2019 with adoption planned 04/22/2012 10/08/2012 Tobacco use in 04/18/2012 013 Overview: 04/18/2012Pt smokes one to 2 cigarettes a day, down from one half pack per day. Discussed risks of smoking during . Advised pt to quit. Last Assessment & Plan: 07/18/12: Pt is no longer smoking; states she quit about 2weeks ago. Rosario Lam NP Depression 05/26/2011 09/18/2019 Telangiectasia 01/27/2010 09/18/2019 Rosacea 01/27/2010 09/18/2019 Other acne 01/27/2010 09/18/2019 documented as of this encounter (statuses as of 10/28/2021) [facility] of Past illness Narrative* Problem Noted Date Resolved Date Urinary incontinence 04/27/2020 04/28/2020 Uncomplicated asthma 09/07/2015 09/18/2019 Overview: 04/18/2012Patient has a history of asthma. She uses an albuterol inhaler when necessary. Routine gynecological examination 12/09/2014 09/18/2019 Overview: [facility]. Chlamydia infection 09/23/2013 09/18/2019 with adoption planned 04/22/2012 10/08/2012 Tobacco use in 04/18/2012 013 Overview: 04/18/2012Pt smokes one to 2 cigarettes a day, down from one half pack per day. Discussed risks of smoking during . Advised pt to quit. Last Assessment & Plan: 07/18/12: Pt is no longer smoking; states she quit about 2weeks ago. Rosario Lam NP Depression 05/26/2011 09/18/2019 Telangiectasia 01/27/2010 09/18/2019 Rosacea 01/27/2010 09/18/2019 Other acne 01/27/2010 09/18/2019 documented as of this encounter (statuses as of 11/23/2021) [facility] History of Past illness Narrative* Problem Noted Date Resolved Date Urinary incontinence 04/27/2020 04/28/2020 Uncomplicated asthma 09/07/2015 09/18/2019 Overview: 04/18/2012Patient has a history of asthma. She uses an albuterol inhaler when necessary. Routine gynecological examination 12/09/2014 09/18/2019 Overview: [facility]. Chlamydia infection 09/23/2013 09/18/2019 with adoption planned 04/22/2012 10/08/2012 Tobacco use in 04/18/2012 013 Overview: 04/18/2012Pt smokes one to 2 cigarettes a day, down from one half pack per day. Discussed risks of smoking during . Advised pt to quit. Last Assessment & Plan: 07/18/12: Pt is no longer smoking; states she quit about 2weeks ago. Rosario Lam NP Depression 05/26/2011 09/18/2019 Telangiectasia 01/27/2010 09/18/2019 Rosacea 01/27/2010 09/18/2019 Other acne 01/27/2010 09/18/2019 documented as of this encounter (statuses as of 11/25/2021) [facility] History of Past illness Narrative* Problem Noted Date Resolved Date Urinary incontinence 04/27/2020 04/28/2020 Uncomplicated asthma 09/07/2015 09/18/2019 Overview: 04/18/2012Patient has a history of asthma. She uses an albuterol inhaler when necessary. Routine gynecological examination 12/09/2014 09/18/2019 Overview: [facility]. Chlamydia infection 09/23/2013 09/18/2019 with adoption planned 04/22/2012 10/08/2012 Tobacco use in 04/18/2012 013 Overview: 04/18/2012Pt smokes one to 2 cigarettes a day, down from one half pack per day. Discussed risks of smoking during . Advised pt to quit. Last Assessment & Plan: 07/18/12: Pt is no longer smoking; states she quit about 2weeks ago. Rosario Lam NP Depression 05/26/2011 09/18/2019 Telangiectasia 01/27/2010 09/18/2019 Rosacea 01/27/2010 09/18/2019 Other acne 01/27/2010 09/18/2019 documented as of this encounter (statuses as of 11/25/2021) [facility] History of Past illness Narrative* Problem Noted Date Resolved Date Urinary incontinence 04/27/2020 04/28/2020 Uncomplicated asthma 09/07/2015 09/18/2019 Overview: 04/18/2012Patient has a history of asthma. She uses an albuterol inhaler when necessary. Routine gynecological examination 12/09/2014 09/18/2019 Overview: [facility]. Chlamydia infection 09/23/2013 09/18/2019 with adoption planned 04/22/2012 10/08/2012 Tobacco use in 04/18/2012 013 Overview: 04/18/2012Pt smokes one to 2 cigarettes a day, down from one half pack per day. Discussed risks of smoking during . Advised pt to quit. Last Assessment & Plan: 07/18/12: Pt is no longer smoking; states she quit about 2weeks ago. Rosario Lam NP Depression 05/26/2011 09/18/2019 Telangiectasia 01/27/2010 09/18/2019 Rosacea 01/27/2010 09/18/2019 Other acne 01/27/2010 09/18/2019 documented as of this encounter (statuses as of 12/23/2021) [facility] History of Past illness Narrative* Problem Noted Date Resolved Date Urinary incontinence 04/27/2020 04/28/2020 Uncomplicated asthma 09/07/2015 09/18/2019 Overview: 04/18/2012Patient has a history of asthma. She uses an albuterol inhaler when necessary. Routine gynecological examination 12/09/2014 09/18/2019 Overview: [facility]. Chlamydia infection 09/23/2013 09/18/2019 with adoption planned 04/22/2012 10/08/2012 Tobacco use in 04/18/2012 013 Overview: 04/18/2012Pt smokes one to 2 cigarettes a day, down from one half pack per day. Discussed risks of smoking during . Advised pt to quit. Last Assessment & Plan: 07/18/12: Pt is no longer smoking; states she quit about 2weeks ago. Rosario Lam NP Depression 05/26/2011 09/18/2019 Telangiectasia 01/27/2010 09/18/2019 Rosacea 01/27/2010 09/18/2019 Other acne 01/27/2010 09/18/2019 documented as of this encounter (statuses as of 12/28/2021) [facility] History of Past illness Narrative* Problem Noted Date Resolved Date Urinary incontinence 04/27/2020 04/28/2020 Uncomplicated asthma 09/07/2015 09/18/2019 Overview: 04/18/2012Patient has a history of asthma. She uses an albuterol inhaler when necessary. Routine gynecological examination 12/09/2014 09/18/2019 Overview: [facility]. Chlamydia infection 09/23/2013 09/18/2019 with adoption planned 04/22/2012 10/08/2012 Tobacco use in 04/18/2012 013 Overview: 04/18/2012Pt smokes one to 2 cigarettes a day, down from one half pack per day. Discussed risks of smoking during . Advised pt to quit. Last Assessment & Plan: 07/18/12: Pt is no longer smoking; states she quit about 2weeks ago. Rosario Lam NP Depression 05/26/2011 09/18/2019 Telangiectasia 01/27/2010 09/18/2019 Rosacea 01/27/2010 09/18/2019 Other acne 01/27/2010 09/18/2019 documented as of this encounter (statuses as of 01/10/2022) [facility] History of Past illness Narrative* Problem Noted Date Resolved Date Urinary incontinence 04/27/2020 04/28/2020 Uncomplicated asthma 09/07/2015 09/18/2019 Overview: 04/18/2012Patient has a history of asthma. She uses an albuterol inhaler when necessary. Routine gynecological examination 12/09/2014 09/18/2019 Overview: [facility]. Chlamydia infection 09/23/2013 09/18/2019 with adoption planned 04/22/2012 10/08/2012 Tobacco use in 04/18/2012 013 Overview: 04/18/2012Pt smokes one to 2 cigarettes a day, down from one half pack per day. Discussed risks of smoking during . Advised pt to quit. Last Assessment & Plan: 07/18/12: Pt is no longer smoking; states she quit about 2weeks ago. Rosario Lam NP Depression 05/26/2011 09/18/2019 Telangiectasia 01/27/2010 09/18/2019 Rosacea 01/27/2010 09/18/2019 Other acne 01/27/2010 09/18/2019 documented as of this encounter (statuses as of 01/19/2022) [facility] History of Past illness Narrative* Problem Noted Date Resolved Date Urinary incontinence 04/27/2020 04/28/2020 Uncomplicated asthma 09/07/2015 09/18/2019 Overview: 04/18/2012Patient has a history of asthma. She uses an albuterol inhaler when necessary. Routine gynecological examination 12/09/2014 09/18/2019 Overview: [facility]. Chlamydia infection 09/23/2013 09/18/2019 with adoption planned 04/22/2012 10/08/2012 Tobacco use in 04/18/2012 013 Overview: 04/18/2012Pt smokes one to 2 cigarettes a day, down from one half pack per day. Discussed risks of smoking during . Advised pt to quit. Last Assessment & Plan: 07/18/12: Pt is no longer smoking; states she quit about 2weeks ago. Rosario Lam NP Depression 05/26/2011 09/18/2019 Telangiectasia 01/27/2010 09/18/2019 Rosacea 01/27/2010 09/18/2019 Other acne 01/27/2010 09/18/2019 documented as of this encounter (statuses as of 01/20/2022) [facility] History of Past illness Narrative* Problem Noted Date Resolved Date Urinary incontinence 04/27/2020 04/28/2020 Uncomplicated asthma 09/07/2015 09/18/2019 Overview: 04/18/2012Patient has a history of asthma. She uses an albuterol inhaler when necessary. Routine gynecological examination 12/09/2014 09/18/2019 Overview: [facility]. Chlamydia infection 09/23/2013 09/18/2019 with adoption planned 04/22/2012 10/08/2012 Tobacco use in 04/18/2012 013 Overview: 04/18/2012Pt smokes one to 2 cigarettes a day, down from one half pack per day. Discussed risks of smoking during . Advised pt to quit. Last Assessment & Plan: 07/18/12: Pt is no longer smoking; states she quit about 2weeks ago. Rosario Lam NP Depression 05/26/2011 09/18/2019 Telangiectasia 01/27/2010 09/18/2019 Rosacea 01/27/2010 09/18/2019 Other acne 01/27/2010 09/18/2019 documented as of this encounter (statuses as of 01/20/2022) [facility] History of Past illness Narrative* Problem Noted Date Resolved Date Urinary incontinence 04/27/2020 04/28/2020 Uncomplicated asthma 09/07/2015 09/18/2019 Overview: 04/18/2012Patient has a history of asthma. She uses an albuterol inhaler when necessary. Routine gynecological examination 12/09/2014 09/18/2019 Overview: [facility]. Chlamydia infection 09/23/2013 09/18/2019 with adoption planned 04/22/2012 10/08/2012 Tobacco use in 04/18/2012 013 Overview: 04/18/2012Pt smokes one to 2 cigarettes a day, down from one half pack per day. Discussed risks of smoking during . Advised pt to quit. Last Assessment & Plan: 07/18/12: Pt is no longer smoking; states she quit about 2weeks ago. Rosario Lam NP Depression 05/26/2011 09/18/2019 Telangiectasia 01/27/2010 09/18/2019 Rosacea 01/27/2010 09/18/2019 Other acne 01/27/2010 09/18/2019 documented as of this encounter (statuses as of 02/02/2022) [facility] History of Past illness Narrative* Problem Noted Date Resolved Date Urinary incontinence 04/27/2020 04/28/2020 Uncomplicated asthma 09/07/2015 09/18/2019 Overview: 04/18/2012Patient has a history of asthma. She uses an albuterol inhaler when necessary. Routine gynecological examination 12/09/2014 09/18/2019 Overview: [facility]. Chlamydia infection 09/23/2013 09/18/2019 with adoption planned 04/22/2012 10/08/2012 Tobacco use in 04/18/2012 013 Overview: 04/18/2012Pt smokes one to 2 cigarettes a day, down from one half pack per day. Discussed risks of smoking during . Advised pt to quit. Last Assessment & Plan: 07/18/12: Pt is no longer smoking; states she quit about 2weeks ago. Rosario Lam NP Depression 05/26/2011 09/18/2019 Telangiectasia 01/27/2010 09/18/2019 Rosacea 01/27/2010 09/18/2019 Other acne 01/27/2010 09/18/2019 documented as of this encounter (statuses as of 02/21/2022) [facility] History of Past illness Narrative* Problem Noted Date Resolved Date Urinary incontinence 04/27/2020 04/28/2020 Uncomplicated asthma 09/07/2015 09/18/2019 Overview: 04/18/2012Patient has a history of asthma. She uses an albuterol inhaler when necessary. Routine gynecological examination 12/09/2014 09/18/2019 Overview: [facility]. Chlamydia infection 09/23/2013 09/18/2019 with adoption planned 04/22/2012 10/08/2012 Tobacco use in 04/18/2012 013 Overview: 04/18/2012Pt smokes one to 2 cigarettes a day, down from one half pack per day. Discussed risks of smoking during . Advised pt to quit. Last Assessment & Plan: 07/18/12: Pt is no longer smoking; states she quit about 2weeks ago. Rosario Lam NP Depression 05/26/2011 09/18/2019 Telangiectasia 01/27/2010 09/18/2019 Rosacea 01/27/2010 09/18/2019 Other acne 01/27/2010 09/18/2019 documented as of this encounter (statuses as of 02/22/2022) [facility] History of Past illness Narrative* Problem Noted Date Resolved Date Urinary incontinence 04/27/2020 04/28/2020 Uncomplicated asthma 09/07/2015 09/18/2019 Overview: 04/18/2012Patient has a history of asthma. She uses an albuterol inhaler when necessary. Routine gynecological examination 12/09/2014 09/18/2019 Overview: [facility]. Chlamydia infection 09/23/2013 09/18/2019 with adoption planned 04/22/2012 10/08/2012 Tobacco use in 04/18/2012 013 Overview: 04/18/2012Pt smokes one to 2 cigarettes a day, down from one half pack per day. Discussed risks of smoking during . Advised pt to quit. Last Assessment & Plan: 07/18/12: Pt is no longer smoking; states she quit about 2weeks ago. Rosario Lam NP Depression 05/26/2011 09/18/2019 Telangiectasia 01/27/2010 09/18/2019 Rosacea 01/27/2010 09/18/2019 Other acne 01/27/2010 09/18/2019 documented as of this encounter (statuses as of 02/23/2022) [facility] History of Past illness Narrative* Problem Noted Date Resolved Date Urinary incontinence 04/27/2020 04/28/2020 Uncomplicated asthma 09/07/2015 09/18/2019 Overview: 04/18/2012Patient has a history of asthma. She uses an albuterol inhaler when necessary. Routine gynecological examination 12/09/2014 09/18/2019 Overview: [facility]. Chlamydia infection 09/23/2013 09/18/2019 with adoption planned 04/22/2012 10/08/2012 Tobacco use in 04/18/2012 013 Overview: 04/18/2012Pt smokes one to 2 cigarettes a day, down from one half pack per day. Discussed risks of smoking during . Advised pt to quit. Last Assessment & Plan: 07/18/12: Pt is no longer smoking; states she quit about 2weeks ago. Rosario Lam NP Depression 05/26/2011 09/18/2019 Telangiectasia 01/27/2010 09/18/2019 Rosacea 01/27/2010 09/18/2019 Other acne 01/27/2010 09/18/2019 documented as of this encounter (statuses as of 02/23/2022) [facility] History of Past illness Narrative* Problem Noted Date Resolved Date Urinary incontinence 04/27/2020 04/28/2020 Uncomplicated asthma 09/07/2015 09/18/2019 Overview: 04/18/2012Patient has a history of asthma. She uses an albuterol inhaler when necessary. Routine gynecological examination 12/09/2014 09/18/2019 Overview: [facility]. Chlamydia infection 09/23/2013 09/18/2019 with adoption planned 04/22/2012 10/08/2012 Tobacco use in 04/18/2012 013 Overview: 04/18/2012Pt smokes one to 2 cigarettes a day, down from one half pack per day. Discussed risks of smoking during . Advised pt to quit. Last Assessment & Plan: 07/18/12: Pt is no longer smoking; states she quit about 2weeks ago. Rosario Lam NP Depression 05/26/2011 09/18/2019 Telangiectasia 01/27/2010 09/18/2019 Rosacea 01/27/2010 09/18/2019 Other acne 01/27/2010 09/18/2019 documented as of this encounter (statuses as of 03/22/2022) [facility] History of Past illness Narrative* Problem Noted Date Resolved Date Urinary incontinence 04/27/2020 04/28/2020 Uncomplicated asthma 09/07/2015 09/18/2019 Overview: 04/18/2012Patient has a history of asthma. She uses an albuterol inhaler when necessary. Routine gynecological examination 12/09/2014 09/18/2019 Overview: [facility]. Chlamydia infection 09/23/2013 09/18/2019 with adoption planned 04/22/2012 10/08/2012 Tobacco use in 04/18/2012 013 Overview: 04/18/2012Pt smokes one to 2 cigarettes a day, down from one half pack per day. Discussed risks of smoking during . Advised pt to quit. Last Assessment & Plan: 07/18/12: Pt is no longer smoking; states she quit about 2weeks ago. Rosario Lam NP Depression 05/26/2011 09/18/2019 Telangiectasia 01/27/2010 09/18/2019 Rosacea 01/27/2010 09/18/2019 Other acne 01/27/2010 09/18/2019 documented as of this encounter (statuses as of 03/22/2022) [facility] History of Past illness Narrative* Problem Noted Date Resolved Date Urinary incontinence 04/27/2020 04/28/2020 Uncomplicated asthma 09/07/2015 09/18/2019 Overview: 04/18/2012Patient has a history of asthma. She uses an albuterol inhaler when necessary. Routine gynecological examination 12/09/2014 09/18/2019 Overview: [facility]. Chlamydia infection 09/23/2013 09/18/2019 with adoption planned 04/22/2012 10/08/2012 Tobacco use in 04/18/2012 013 Overview: 04/18/2012Pt smokes one to 2 cigarettes a day, down from one half pack per day. Discussed risks of smoking during . Advised pt to quit. Last Assessment & Plan: 07/18/12: Pt is no longer smoking; states she quit about 2weeks ago. Rosario Lam NP Depression 05/26/2011 09/18/2019 Telangiectasia 01/27/2010 09/18/2019 Rosacea 01/27/2010 09/18/2019 Other acne 01/27/2010 09/18/2019 documented as of this encounter (statuses as of 03/23/2022) [facility] History of Past illness Narrative* Problem Noted Date Resolved Date Urinary incontinence 04/27/2020 04/28/2020 Uncomplicated asthma 09/07/2015 09/18/2019 Overview: 04/18/2012Patient has a history of asthma. She uses an albuterol inhaler when necessary. Routine gynecological examination 12/09/2014 09/18/2019 Overview: [facility]. Chlamydia infection 09/23/2013 09/18/2019 with adoption planned 04/22/2012 10/08/2012 Tobacco use in 04/18/2012 013 Overview: 04/18/2012Pt smokes one to 2 cigarettes a day, down from one half pack per day. Discussed risks of smoking during . Advised pt to quit. Last Assessment & Plan: 07/18/12: Pt is no longer smoking; states she quit about 2weeks ago. Rosario Lam NP Depression 05/26/2011 09/18/2019 Telangiectasia 01/27/2010 09/18/2019 Rosacea 01/27/2010 09/18/2019 Other acne 01/27/2010 09/18/2019 documented as of this encounter (statuses as of 03/24/2022) [facility] History of Past illness Narrative* Problem Noted Date Resolved Date Urinary incontinence 04/27/2020 04/28/2020 Uncomplicated asthma 09/07/2015 09/18/2019 Overview: 04/18/2012Patient has a history of asthma. She uses an albuterol inhaler when necessary. Routine gynecological examination 12/09/2014 09/18/2019 Overview: [facility]. Chlamydia infection 09/23/2013 09/18/2019 with adoption planned 04/22/2012 10/08/2012 Tobacco use in 04/18/2012 013 Overview: 04/18/2012Pt smokes one to 2 cigarettes a day, down from one half pack per day. Discussed risks of smoking during . Advised pt to quit. Last Assessment & Plan: 07/18/12: Pt is no longer smoking; states she quit about 2weeks ago. Rosario Lam NP Depression 05/26/2011 09/18/2019 Telangiectasia 01/27/2010 09/18/2019 Rosacea 01/27/2010 09/18/2019 Other acne 01/27/2010 09/18/2019 documented as of this encounter (statuses as of 04/04/2022) [facility] of Past illness Narrative* Problem Noted Date Resolved Date Urinary incontinence 04/27/2020 04/28/2020 Uncomplicated asthma 09/07/2015 09/18/2019 Overview: 04/18/2012Patient has a history of asthma. She uses an albuterol inhaler when necessary. Routine gynecological examination 12/09/2014 09/18/2019 Overview: [facility]. Chlamydia infection 09/23/2013 09/18/2019 with adoption planned 04/22/2012 10/08/2012 Tobacco use in 04/18/2012 013 Overview: 04/18/2012Pt smokes one to 2 cigarettes a day, down from one half pack per day. Discussed risks of smoking during . Advised pt to quit. Last Assessment & Plan: 07/18/12: Pt is no longer smoking; states she quit about 2weeks ago. Rosario Lam NP Depression 05/26/2011 09/18/2019 Telangiectasia 01/27/2010 09/18/2019 Rosacea 01/27/2010 09/18/2019 Other acne 01/27/2010 09/18/2019 documented as of this encounter (statuses as of 04/06/2022) [facility] of Past illness Narrative* Problem Noted Date Resolved Date Urinary incontinence 04/27/2020 04/28/2020 Uncomplicated asthma 09/07/2015 09/18/2019 Overview: 04/18/2012Patient has a history of asthma. She uses an albuterol inhaler when necessary. Routine gynecological examination 12/09/2014 09/18/2019 Overview: [facility]. Chlamydia infection 09/23/2013 09/18/2019 with adoption planned 04/22/2012 10/08/2012 Tobacco use in 04/18/2012 013 Overview: 04/18/2012Pt smokes one to 2 cigarettes a day, down from one half pack per day. Discussed risks of smoking during . Advised pt to quit. Last Assessment & Plan: 07/18/12: Pt is no longer smoking; states she quit about 2weeks ago. Rosario Lam NP Depression 05/26/2011 09/18/2019 Telangiectasia 01/27/2010 09/18/2019 Rosacea 01/27/2010 09/18/2019 Other acne 01/27/2010 09/18/2019 documented as of this encounter (statuses as of 04/13/2022) [facility] of Past illness Narrative* Problem Noted Date Resolved Date Urinary incontinence 04/27/2020 04/28/2020 Uncomplicated asthma 09/07/2015 09/18/2019 Overview: 04/18/2012Patient has a history of asthma. She uses an albuterol inhaler when necessary. Routine gynecological examination 12/09/2014 09/18/2019 Overview: [facility]. Chlamydia infection 09/23/2013 09/18/2019 with adoption planned 04/22/2012 10/08/2012 Tobacco use in 04/18/2012 013 Overview: 04/18/2012Pt smokes one to 2 cigarettes a day, down from one half pack per day. Discussed risks of smoking during . Advised pt to quit. Last Assessment & Plan: 07/18/12: Pt is no longer smoking; states she quit about 2weeks ago. Rosario Lam, CLAIRE Depression 05/26/2011 09/18/2019 Telangiectasia 01/27/2010 09/18/2019 Rosacea 01/27/2010 09/18/2019 Other acne 01/27/2010 09/18/2019 documented as of this encounter (statuses as of 04/13/2022) [facility] of Past illness Narrative* Problem Noted Date Resolved Date Urinary incontinence 04/27/2020 04/28/2020 Uncomplicated asthma 09/07/2015 09/18/2019 Overview: 04/18/2012Patient has a history of asthma. She uses an albuterol inhaler when necessary. Routine gynecological examination 12/09/2014 09/18/2019 Overview: [facility]. Chlamydia infection 09/23/2013 09/18/2019 with adoption planned 04/22/2012 10/08/2012 Tobacco use in 04/18/2012 013 Overview: 04/18/2012Pt smokes one to 2 cigarettes a day, down from one half pack per day. Discussed risks of smoking during . Advised pt to quit. Last Assessment & Plan: 07/18/12: Pt is no longer smoking; states she quit about 2weeks ago. Rosario Lam NP Depression 05/26/2011 09/18/2019 Telangiectasia 01/27/2010 09/18/2019 Rosacea 01/27/2010 09/18/2019 Other acne 01/27/2010 09/18/2019 documented as of this encounter (statuses as of 04/26/2022) [facility] of Past illness Narrative* Problem Noted Date Resolved Date Urinary incontinence 04/27/2020 04/28/2020 Uncomplicated asthma 09/07/2015 09/18/2019 Overview: 04/18/2012Patient has a history of asthma. She uses an albuterol inhaler when necessary. Routine gynecological examination 12/09/2014 09/18/2019 Overview: [facility]. Chlamydia infection 09/23/2013 09/18/2019 with adoption planned 04/22/2012 10/08/2012 Tobacco use in 04/18/2012 013 Overview: 04/18/2012Pt smokes one to 2 cigarettes a day, down from one half pack per day. Discussed risks of smoking during . Advised pt to quit. Last Assessment & Plan: 07/18/12: Pt is no longer smoking; states she quit about 2weeks ago. Rosario Lam NP Depression 05/26/2011 09/18/2019 Telangiectasia 01/27/2010 09/18/2019 Rosacea 01/27/2010 09/18/2019 Other acne 01/27/2010 09/18/2019 documented as of this encounter (statuses as of 05/23/2022) [facility] of Past illness Narrative* Problem Noted Date Resolved Date Urinary incontinence 04/27/2020 04/28/2020 Uncomplicated asthma 09/07/2015 09/18/2019 Overview: 04/18/2012Patient has a history of asthma. She uses an albuterol inhaler when necessary. Routine gynecological examination 12/09/2014 09/18/2019 Overview: [facility]. Chlamydia infection 09/23/2013 09/18/2019 with adoption planned 04/22/2012 10/08/2012 Tobacco use in 04/18/2012 013 Overview: 04/18/2012Pt smokes one to 2 cigarettes a day, down from one half pack per day. Discussed risks of smoking during . Advised pt to quit. Last Assessment & Plan: 07/18/12: Pt is no longer smoking; states she quit about 2weeks ago. Rosario Lam NP Depression 05/26/2011 09/18/2019 Telangiectasia 01/27/2010 09/18/2019 Rosacea 01/27/2010 09/18/2019 Other acne 01/27/2010 09/18/2019 documented as of this encounter (statuses as of 05/23/2022) [facility] of Past illness Narrative* Problem Noted Date Resolved Date Urinary incontinence 04/27/2020 04/28/2020 Uncomplicated asthma 09/07/2015 09/18/2019 Overview: 04/18/2012Patient has a history of asthma. She uses an albuterol inhaler when necessary. Routine gynecological examination 12/09/2014 09/18/2019 Overview: [facility]. Chlamydia infection 09/23/2013 09/18/2019 with adoption planned 04/22/2012 10/08/2012 Tobacco use in 04/18/2012 013 Overview: 04/18/2012Pt smokes one to 2 cigarettes a day, down from one half pack per day. Discussed risks of smoking during . Advised pt to quit. Last Assessment & Plan: 07/18/12: Pt is no longer smoking; states she quit about 2weeks ago. Rosario Lam NP Depression 05/26/2011 09/18/2019 Telangiectasia 01/27/2010 09/18/2019 Rosacea 01/27/2010 09/18/2019 Other acne 01/27/2010 09/18/2019 documented as of this encounter (statuses as of 05/24/2022) [facility]2020 History of Past illness Narrative* Problem Noted Date Resolved Date Urinary incontinence 04/27/2020 04/28/2020 Uncomplicated asthma 09/07/2015 09/18/2019 Overview: 04/18/2012Patient has a history of asthma. She uses an albuterol inhaler when necessary. Routine gynecological examination 12/09/2014 09/18/2019 Overview: [facility]. Chlamydia infection 09/23/2013 09/18/2019 with adoption planned 04/22/2012 10/08/2012 Tobacco use in 04/18/2012 013 Overview: 04/18/2012Pt smokes one to 2 cigarettes a day, down from one half pack per day. Discussed risks of smoking during . Advised pt to quit. Last Assessment & Plan: 07/18/12: Pt is no longer smoking; states she quit about 2weeks ago. Rosario Lam NP Depression 05/26/2011 09/18/2019 Telangiectasia 01/27/2010 09/18/2019 Rosacea 01/27/2010 09/18/2019 Other acne 01/27/2010 09/18/2019 documented as of this encounter (statuses as of 05/29/2022) [facility] History of Past illness Narrative* Problem Noted Date Resolved Date Urinary incontinence 04/27/2020 04/28/2020 Uncomplicated asthma 09/07/2015 09/18/2019 Overview: 04/18/2012Patient has a history of asthma. She uses an albuterol inhaler when necessary. Routine gynecological examination 12/09/2014 09/18/2019 Overview: [facility]. Chlamydia infection 09/23/2013 09/18/2019 with adoption planned 04/22/2012 10/08/2012 Tobacco use in 04/18/2012 013 Overview: 04/18/2012Pt smokes one to 2 cigarettes a day, down from one half pack per day. Discussed risks of smoking during . Advised pt to quit. Last Assessment & Plan: 07/18/12: Pt is no longer smoking; states she quit about 2weeks ago. Rosario Lam NP Depression 05/26/2011 09/18/2019 Telangiectasia 01/27/2010 09/18/2019 Rosacea 01/27/2010 09/18/2019 Other acne 01/27/2010 09/18/2019 documented as of this encounter (statuses as of 05/31/2022) [facility] History of Past illness Narrative* Problem Noted Date Resolved Date Urinary incontinence 04/27/2020 04/28/2020 Uncomplicated asthma 09/07/2015 09/18/2019 Overview: 04/18/2012Patient has a history of asthma. She uses an albuterol inhaler when necessary. Routine gynecological examination 12/09/2014 09/18/2019 Overview: [facility]. Chlamydia infection 09/23/2013 09/18/2019 with adoption planned 04/22/2012 10/08/2012 Tobacco use in 04/18/2012 013 Overview: 04/18/2012Pt smokes one to 2 cigarettes a day, down from one half pack per day. Discussed risks of smoking during . Advised pt to quit. Last Assessment & Plan: 07/18/12: Pt is no longer smoking; states she quit about 2weeks ago. Rosario Lam NP Depression 05/26/2011 09/18/2019 Telangiectasia 01/27/2010 09/18/2019 Rosacea 01/27/2010 09/18/2019 Other acne 01/27/2010 09/18/2019 documented as of this encounter (statuses as of 06/14/2022) [facility] History of Past illness Narrative* Problem Noted Date Resolved Date Urinary incontinence 04/27/2020 04/28/2020 Uncomplicated asthma 09/07/2015 09/18/2019 Overview: 04/18/2012Patient has a history of asthma. She uses an albuterol inhaler when necessary. Routine gynecological examination 12/09/2014 09/18/2019 Overview: [facility]. Chlamydia infection 09/23/2013 09/18/2019 with adoption planned 04/22/2012 10/08/2012 Tobacco use in 04/18/2012 013 Overview: 04/18/2012Pt smokes one to 2 cigarettes a day, down from one half pack per day. Discussed risks of smoking during . Advised pt to quit. Last Assessment & Plan: 07/18/12: Pt is no longer smoking; states she quit about 2weeks ago. Rosario Lam NP Depression 05/26/2011 09/18/2019 Telangiectasia 01/27/2010 09/18/2019 Rosacea 01/27/2010 09/18/2019 Other acne 01/27/2010 09/18/2019 documented as of this encounter (statuses as of 06/18/2022) [facility] History of Past illness Narrative* Problem Noted Date Resolved Date Urinary incontinence 04/27/2020 04/28/2020 Uncomplicated asthma 09/07/2015 09/18/2019 Overview: 04/18/2012Patient has a history of asthma. She uses an albuterol inhaler when necessary. Routine gynecological examination 12/09/2014 09/18/2019 Overview: [facility]. Chlamydia infection 09/23/2013 09/18/2019 with adoption planned 04/22/2012 10/08/2012 Tobacco use in 04/18/2012 013 Overview: 04/18/2012Pt smokes one to 2 cigarettes a day, down from one half pack per day. Discussed risks of smoking during . Advised pt to quit. Last Assessment & Plan: 07/18/12: Pt is no longer smoking; states she quit about 2weeks ago. Rosario Lam NP Depression 05/26/2011 09/18/2019 Telangiectasia 01/27/2010 09/18/2019 Rosacea 01/27/2010 09/18/2019 Other acne 01/27/2010 09/18/2019 documented as of this encounter (statuses as of 06/23/2022) [facility] History of Past illness Narrative* Problem Noted Date Resolved Date Urinary incontinence 04/27/2020 04/28/2020 Uncomplicated asthma 09/07/2015 09/18/2019 Overview: 04/18/2012Patient has a history of asthma. She uses an albuterol inhaler when necessary. Routine gynecological examination 12/09/2014 09/18/2019 Overview: [facility]. Chlamydia infection 09/23/2013 09/18/2019 with adoption planned 04/22/2012 10/08/2012 Tobacco use in 04/18/2012 013 Overview: 04/18/2012Pt smokes one to 2 cigarettes a day, down from one half pack per day. Discussed risks of smoking during . Advised pt to quit. Last Assessment & Plan: 07/18/12: Pt is no longer smoking; states she quit about 2weeks ago. Rosario Lam NP Depression 05/26/2011 09/18/2019 Telangiectasia 01/27/2010 09/18/2019 Rosacea 01/27/2010 09/18/2019 Other acne 01/27/2010 09/18/2019 documented as of this encounter (statuses as of 07/05/2022) [facility] History of Past illness Narrative* Problem Noted Date Resolved Date Urinary incontinence 04/27/2020 04/28/2020 Uncomplicated asthma 09/07/2015 09/18/2019 Overview: 04/18/2012Patient has a history of asthma. She uses an albuterol inhaler when necessary. Routine gynecological examination 12/09/2014 09/18/2019 Overview: [facility]. Chlamydia infection 09/23/2013 09/18/2019 with adoption planned 04/22/2012 10/08/2012 Tobacco use in 04/18/2012 013 Overview: 04/18/2012Pt smokes one to 2 cigarettes a day, down from one half pack per day. Discussed risks of smoking during . Advised pt to quit. Last Assessment & Plan: 07/18/12: Pt is no longer smoking; states she quit about 2weeks ago. Rosario Lam NP Depression 05/26/2011 09/18/2019 Telangiectasia 01/27/2010 09/18/2019 Rosacea 01/27/2010 09/18/2019 Other acne 01/27/2010 09/18/2019 documented as of this encounter (statuses as of 07/06/2022) [facility] History of Past illness Narrative* Problem Noted Date Resolved Date Urinary incontinence 04/27/2020 04/28/2020 Uncomplicated asthma 09/07/2015 09/18/2019 Overview: 04/18/2012Patient has a history of asthma. She uses an albuterol inhaler when necessary. Routine gynecological examination 12/09/2014 09/18/2019 Overview: [facility]. Chlamydia infection 09/23/2013 09/18/2019 with adoption planned 04/22/2012 10/08/2012 Tobacco use in 04/18/2012 013 Overview: 04/18/2012Pt smokes one to 2 cigarettes a day, down from one half pack per day. Discussed risks of smoking during . Advised pt to quit. Last Assessment & Plan: 07/18/12: Pt is no longer smoking; states she quit about 2weeks ago. Rosario Lam NP Depression 05/26/2011 09/18/2019 Telangiectasia 01/27/2010 09/18/2019 Rosacea 01/27/2010 09/18/2019 Other acne 01/27/2010 09/18/2019 documented as of this encounter (statuses as of 07/06/2022) [facility] History of Past illness Narrative* Problem Noted Date Resolved Date Urinary incontinence 04/27/2020 04/28/2020 Uncomplicated asthma 09/07/2015 09/18/2019 Overview: 04/18/2012Patient has a history of asthma. She uses an albuterol inhaler when necessary. Routine gynecological examination 12/09/2014 09/18/2019 Overview: [facility]. Chlamydia infection 09/23/2013 09/18/2019 with adoption planned 04/22/2012 10/08/2012 Tobacco use in 04/18/2012 013 Overview: 04/18/2012Pt smokes one to 2 cigarettes a day, down from one half pack per day. Discussed risks of smoking during . Advised pt to quit. Last Assessment & Plan: 07/18/12: Pt is no longer smoking; states she quit about 2weeks ago. Rosario Lam NP Depression 05/26/2011 09/18/2019 Telangiectasia 01/27/2010 09/18/2019 Rosacea 01/27/2010 09/18/2019 Other acne 01/27/2010 09/18/2019 documented as of this encounter (statuses as of 07/28/2022) [facility] History of Past illness Narrative* Problem Noted Date Resolved Date Urinary incontinence 04/27/2020 04/28/2020 Uncomplicated asthma 09/07/2015 09/18/2019 Overview: 04/18/2012Patient has a history of asthma. She uses an albuterol inhaler when necessary. Routine gynecological examination 12/09/2014 09/18/2019 Overview: [facility]. Chlamydia infection 09/23/2013 09/18/2019 with adoption planned 04/22/2012 10/08/2012 Tobacco use in 04/18/2012 013 Overview: 04/18/2012Pt smokes one to 2 cigarettes a day, down from one half pack per day. Discussed risks of smoking during . Advised pt to quit. Last Assessment & Plan: 07/18/12: Pt is no longer smoking; states she quit about 2weeks ago. Rosario Lam NP Depression 05/26/2011 09/18/2019 Telangiectasia 01/27/2010 09/18/2019 Rosacea 01/27/2010 09/18/2019 Other acne 01/27/2010 09/18/2019 documented as of this encounter (statuses as of 07/28/2022) [facility] History of Past illness Narrative* Problem Noted Date Resolved Date Urinary incontinence 04/27/2020 04/28/2020 Uncomplicated asthma 09/07/2015 09/18/2019 Overview: 04/18/2012Patient has a history of asthma. She uses an albuterol inhaler when necessary. Routine gynecological examination 12/09/2014 09/18/2019 Overview: [facility]. Chlamydia infection 09/23/2013 09/18/2019 with adoption planned 04/22/2012 10/08/2012 Tobacco use in 04/18/2012 013 Overview: 04/18/2012Pt smokes one to 2 cigarettes a day, down from one half pack per day. Discussed risks of smoking during . Advised pt to quit. Last Assessment & Plan: 07/18/12: Pt is no longer smoking; states she quit about 2weeks ago. Rosario Lam NP Depression 05/26/2011 09/18/2019 Telangiectasia 01/27/2010 09/18/2019 Rosacea 01/27/2010 09/18/2019 Other acne 01/27/2010 09/18/2019 documented as of this encounter (statuses as of 07/28/2022) [facility] History of Past illness Narrative* Problem Noted Date Resolved Date Urinary incontinence 04/27/2020 04/28/2020 Uncomplicated asthma 09/07/2015 09/18/2019 Overview: 04/18/2012Patient has a history of asthma. She uses an albuterol inhaler when necessary. Routine gynecological examination 12/09/2014 09/18/2019 Overview: [facility]. Chlamydia infection 09/23/2013 09/18/2019 with adoption planned 04/22/2012 10/08/2012 Tobacco use in 04/18/2012 013 Overview: 04/18/2012Pt smokes one to 2 cigarettes a day, down from one half pack per day. Discussed risks of smoking during . Advised pt to quit. Last Assessment & Plan: 07/18/12: Pt is no longer smoking; states she quit about 2weeks ago. Rosario Lam NP Depression 05/26/2011 09/18/2019 Telangiectasia 01/27/2010 09/18/2019 Rosacea 01/27/2010 09/18/2019 Other acne 01/27/2010 09/18/2019 documented as of this encounter (statuses as of 08/03/2022) [facility] History of Past illness Narrative* Problem Noted Date Resolved Date Urinary incontinence 04/27/2020 04/28/2020 Uncomplicated asthma 09/07/2015 09/18/2019 Overview: 04/18/2012Patient has a history of asthma. She uses an albuterol inhaler when necessary. Routine gynecological examination 12/09/2014 09/18/2019 Overview: [facility]. Chlamydia infection 09/23/2013 09/18/2019 with adoption planned 04/22/2012 10/08/2012 Tobacco use in 04/18/2012 013 Overview: 04/18/2012Pt smokes one to 2 cigarettes a day, down from one half pack per day. Discussed risks of smoking during . Advised pt to quit. Last Assessment & Plan: 07/18/12: Pt is no longer smoking; states she quit about 2weeks ago. Rosario Lam NP Depression 05/26/2011 09/18/2019 Telangiectasia 01/27/2010 09/18/2019 Rosacea 01/27/2010 09/18/2019 Other acne 01/27/2010 09/18/2019 documented as of this encounter (statuses as of 08/05/2022) [facility] History of Past illness Narrative* Problem Noted Date Resolved Date Urinary incontinence 04/27/2020 04/28/2020 Uncomplicated asthma 09/07/2015 09/18/2019 Overview: 04/18/2012Patient has a history of asthma. She uses an albuterol inhaler when necessary. Routine gynecological examination 12/09/2014 09/18/2019 Overview: [facility]. Chlamydia infection 09/23/2013 09/18/2019 with adoption planned 04/22/2012 10/08/2012 Tobacco use in 04/18/2012 013 Overview: 04/18/2012Pt smokes one to 2 cigarettes a day, down from one half pack per day. Discussed risks of smoking during . Advised pt to quit. Last Assessment & Plan: 07/18/12: Pt is no longer smoking; states she quit about 2weeks ago. Rosario Lam NP Depression 05/26/2011 09/18/2019 Telangiectasia 01/27/2010 09/18/2019 Rosacea 01/27/2010 09/18/2019 Other acne 01/27/2010 09/18/2019 documented as of this encounter (statuses as of 08/09/2022) [facility] History of Past illness Narrative* Problem Noted Date Resolved Date Urinary incontinence 04/27/2020 04/28/2020 Uncomplicated asthma 09/07/2015 09/18/2019 Overview: 04/18/2012Patient has a history of asthma. She uses an albuterol inhaler when necessary. Routine gynecological examination 12/09/2014 09/18/2019 Overview: [facility]. Chlamydia infection 09/23/2013 09/18/2019 with adoption planned 04/22/2012 10/08/2012 Tobacco use in 04/18/2012 013 Overview: 04/18/2012Pt smokes one to 2 cigarettes a day, down from one half pack per day. Discussed risks of smoking during . Advised pt to quit. Last Assessment & Plan: 07/18/12: Pt is no longer smoking; states she quit about 2weeks ago. Rosario Lam NP Depression 05/26/2011 09/18/2019 Telangiectasia 01/27/2010 09/18/2019 Rosacea 01/27/2010 09/18/2019 Other acne 01/27/2010 09/18/2019 documented as of this encounter (statuses as of 08/10/2022) [facility] History of Past illness Narrative* Problem Noted Date Resolved Date Urinary incontinence 04/27/2020 04/28/2020 Uncomplicated asthma 09/07/2015 09/18/2019 Overview: 04/18/2012Patient has a history of asthma. She uses an albuterol inhaler when necessary. Routine gynecological examination 12/09/2014 09/18/2019 Overview: [facility]. Chlamydia infection 09/23/2013 09/18/2019 with adoption planned 04/22/2012 10/08/2012 Tobacco use in 04/18/2012 013 Overview: 04/18/2012Pt smokes one to 2 cigarettes a day, down from one half pack per day. Discussed risks of smoking during . Advised pt to quit. Last Assessment & Plan: 07/18/12: Pt is no longer smoking; states she quit about 2weeks ago. Rosario Lam NP Depression 05/26/2011 09/18/2019 Telangiectasia 01/27/2010 09/18/2019 Rosacea 01/27/2010 09/18/2019 Other acne 01/27/2010 09/18/2019 documented as of this encounter (statuses as of 08/12/2022) [facility] History of Past illness Narrative* Problem Noted Date Resolved Date Urinary incontinence 04/27/2020 04/28/2020 Uncomplicated asthma 09/07/2015 09/18/2019 Overview: 04/18/2012Patient has a history of asthma. She uses an albuterol inhaler when necessary. Routine gynecological examination 12/09/2014 09/18/2019 Overview: [facility]. Chlamydia infection 09/23/2013 09/18/2019 with adoption planned 04/22/2012 10/08/2012 Tobacco use in 04/18/2012 013 Overview: 04/18/2012Pt smokes one to 2 cigarettes a day, down from one half pack per day. Discussed risks of smoking during . Advised pt to quit. Last Assessment & Plan: 07/18/12: Pt is no longer smoking; states she quit about 2weeks ago. Rosario Lam NP Depression 05/26/2011 09/18/2019 Telangiectasia 01/27/2010 09/18/2019 Rosacea 01/27/2010 09/18/2019 Other acne 01/27/2010 09/18/2019 documented as of this encounter (statuses as of 08/14/2022) [facility] History of Past illness Narrative* Problem Noted Date Resolved Date Urinary incontinence 04/27/2020 04/28/2020 Uncomplicated asthma 09/07/2015 09/18/2019 Overview: 04/18/2012Patient has a history of asthma. She uses an albuterol inhaler when necessary. Routine gynecological examination 12/09/2014 09/18/2019 Overview: [facility]. Chlamydia infection 09/23/2013 09/18/2019 with adoption planned 04/22/2012 10/08/2012 Tobacco use in 04/18/2012 013 Overview: 04/18/2012Pt smokes one to 2 cigarettes a day, down from one half pack per day. Discussed risks of smoking during . Advised pt to quit. Last Assessment & Plan: 07/18/12: Pt is no longer smoking; states she quit about 2weeks ago. Rosario Lam NP Depression 05/26/2011 09/18/2019 Telangiectasia 01/27/2010 09/18/2019 Rosacea 01/27/2010 09/18/2019 Other acne 01/27/2010 09/18/2019 documented as of this encounter (statuses as of 08/15/2022) [facility] History of Past illness Narrative* Problem Noted Date Resolved Date Urinary incontinence 04/27/2020 04/28/2020 Uncomplicated asthma 09/07/2015 09/18/2019 Overview: 04/18/2012Patient has a history of asthma. She uses an albuterol inhaler when necessary. Routine gynecological examination 12/09/2014 09/18/2019 Overview: [facility]. Chlamydia infection 09/23/2013 09/18/2019 with adoption planned 04/22/2012 10/08/2012 Tobacco use in 04/18/2012 013 Overview: 04/18/2012Pt smokes one to 2 cigarettes a day, down from one half pack per day. Discussed risks of smoking during . Advised pt to quit. Last Assessment & Plan: 07/18/12: Pt is no longer smoking; states she quit about 2weeks ago. Rosario Lam NP Depression 05/26/2011 09/18/2019 Telangiectasia 01/27/2010 09/18/2019 Rosacea 01/27/2010 09/18/2019 Other acne 01/27/2010 09/18/2019 documented as of this encounter (statuses as of 08/15/2022) [facility] History of Past illness Narrative* Problem Noted Date Resolved Date Urinary incontinence 04/27/2020 04/28/2020 Uncomplicated asthma 09/07/2015 09/18/2019 Overview: 04/18/2012Patient has a history of asthma. She uses an albuterol inhaler when necessary. Routine gynecological examination 12/09/2014 09/18/2019 Overview: [facility]. Chlamydia infection 09/23/2013 09/18/2019 with adoption planned 04/22/2012 10/08/2012 Tobacco use in 04/18/2012 013 Overview: 04/18/2012Pt smokes one to 2 cigarettes a day, down from one half pack per day. Discussed risks of smoking during . Advised pt to quit. Last Assessment & Plan: 07/18/12: Pt is no longer smoking; states she quit about 2weeks ago. Rosario Lam NP Depression 05/26/2011 09/18/2019 Telangiectasia 01/27/2010 09/18/2019 Rosacea 01/27/2010 09/18/2019 Other acne 01/27/2010 09/18/2019 documented as of this encounter (statuses as of 08/29/2022) [facility] of Past illness Narrative* Problem Noted Date Resolved Date Urinary incontinence 04/27/2020 04/28/2020 Uncomplicated asthma 09/07/2015 09/18/2019 Overview: 04/18/2012Patient has a history of asthma. She uses an albuterol inhaler when necessary. Routine gynecological examination 12/09/2014 09/18/2019 Overview: [facility]. Chlamydia infection 09/23/2013 09/18/2019 with adoption planned 04/22/2012 10/08/2012 Tobacco use in 04/18/2012 013 Overview: 04/18/2012Pt smokes one to 2 cigarettes a day, down from one half pack per day. Discussed risks of smoking during . Advised pt to quit. Last Assessment & Plan: 07/18/12: Pt is no longer smoking; states she quit about 2weeks ago. Rosario Lam NP Depression 05/26/2011 09/18/2019 Telangiectasia 01/27/2010 09/18/2019 Rosacea 01/27/2010 09/18/2019 Other acne 01/27/2010 09/18/2019 documented as of this encounter (statuses as of 09/05/2022) [facility] of Past illness Narrative* Problem Noted Date Resolved Date Urinary incontinence 04/27/2020 04/28/2020 Uncomplicated asthma 09/07/2015 09/18/2019 Overview: 04/18/2012Patient has a history of asthma. She uses an albuterol inhaler when necessary. Routine gynecological examination 12/09/2014 09/18/2019 Overview: [facility]. Chlamydia infection 09/23/2013 09/18/2019 with adoption planned 04/22/2012 10/08/2012 Tobacco use in 04/18/2012 013 Overview: 04/18/2012Pt smokes one to 2 cigarettes a day, down from one half pack per day. Discussed risks of smoking during . Advised pt to quit. Last Assessment & Plan: 07/18/12: Pt is no longer smoking; states she quit about 2weeks ago. Rosario Lam NP Depression 05/26/2011 09/18/2019 Telangiectasia 01/27/2010 09/18/2019 Rosacea 01/27/2010 09/18/2019 Other acne 01/27/2010 09/18/2019 documented as of this encounter (statuses as of 09/12/2022) [facility] of Past illness Narrative* Problem Noted Date Resolved Date Urinary incontinence 04/27/2020 04/28/2020 Uncomplicated asthma 09/07/2015 09/18/2019 Overview: 04/18/2012Patient has a history of asthma. She uses an albuterol inhaler when necessary. Routine gynecological examination 12/09/2014 09/18/2019 Overview: [facility]. Chlamydia infection 09/23/2013 09/18/2019 with adoption planned 04/22/2012 10/08/2012 Tobacco use in 04/18/2012 013 Overview: 04/18/2012Pt smokes one to 2 cigarettes a day, down from one half pack per day. Discussed risks of smoking during . Advised pt to quit. Last Assessment & Plan: 07/18/12: Pt is no longer smoking; states she quit about 2weeks ago. Rosario Lam NP Depression 05/26/2011 09/18/2019 Telangiectasia 01/27/2010 09/18/2019 Rosacea 01/27/2010 09/18/2019 Other acne 01/27/2010 09/18/2019 documented as of this encounter (statuses as of 10/18/2022) [facility] of Past illness Narrative* Problem Noted Date Resolved Date Urinary incontinence 04/27/2020 04/28/2020 Uncomplicated asthma 09/07/2015 09/18/2019 Overview: 04/18/2012Patient has a history of asthma. She uses an albuterol inhaler when necessary. Routine gynecological examination 12/09/2014 09/18/2019 Overview: [facility]. Chlamydia infection 09/23/2013 09/18/2019 with adoption planned 04/22/2012 10/08/2012 Tobacco use in 04/18/2012 013 Overview: 04/18/2012Pt smokes one to 2 cigarettes a day, down from one half pack per day. Discussed risks of smoking during . Advised pt to quit. Last Assessment & Plan: 07/18/12: Pt is no longer smoking; states she quit about 2weeks ago. Rosario Lam NP Depression 05/26/2011 09/18/2019 Telangiectasia 01/27/2010 09/18/2019 Rosacea 01/27/2010 09/18/2019 Other acne 01/27/2010 09/18/2019 documented as of this encounter (statuses as of 11/03/2022) [facility] of Past illness Narrative* Problem Noted Date Resolved Date Urinary incontinence 04/27/2020 04/28/2020 Uncomplicated asthma 09/07/2015 09/18/2019 Overview: 04/18/2012Patient has a history of asthma. She uses an albuterol inhaler when necessary. Routine gynecological examination 12/09/2014 09/18/2019 Overview: [facility]. Chlamydia infection 09/23/2013 09/18/2019 with adoption planned 04/22/2012 10/08/2012 Tobacco use in 04/18/2012 013 Overview: 04/18/2012Pt smokes one to 2 cigarettes a day, down from one half pack per day. Discussed risks of smoking during . Advised pt to quit. Last Assessment & Plan: 07/18/12: Pt is no longer smoking; states she quit about 2weeks ago. Rosario Lam NP Depression 05/26/2011 09/18/2019 Telangiectasia 01/27/2010 09/18/2019 Rosacea 01/27/2010 09/18/2019 Other acne 01/27/2010 09/18/2019 documented as of this encounter (statuses as of 11/03/2022) [facility] History of Past illness Narrative* Problem Noted Date Resolved Date Urinary incontinence 04/27/2020 04/28/2020 Uncomplicated asthma 09/07/2015 09/18/2019 Overview: 04/18/2012Patient has a history of asthma. She uses an albuterol inhaler when necessary. Routine gynecological examination 12/09/2014 09/18/2019 Overview: [facility]. Chlamydia infection 09/23/2013 09/18/2019 with adoption planned 04/22/2012 10/08/2012 Tobacco use in 04/18/2012 013 Overview: 04/18/2012Pt smokes one to 2 cigarettes a day, down from one half pack per day. Discussed risks of smoking during . Advised pt to quit. Last Assessment & Plan: 07/18/12: Pt is no longer smoking; states she quit about 2weeks ago. Rosario Lam NP Depression 05/26/2011 09/18/2019 Telangiectasia 01/27/2010 09/18/2019 Rosacea 01/27/2010 09/18/2019 Other acne 01/27/2010 09/18/2019 documented as of this encounter (statuses as of 11/04/2022) [facility] History of Past illness Narrative* Problem Noted Date Resolved Date Urinary incontinence 04/27/2020 04/28/2020 Uncomplicated asthma 09/07/2015 09/18/2019 Overview: 04/18/2012Patient has a history of asthma. She uses an albuterol inhaler when necessary. Routine gynecological examination 12/09/2014 09/18/2019 Overview: [facility]. Chlamydia infection 09/23/2013 09/18/2019 with adoption planned 04/22/2012 10/08/2012 Tobacco use in 04/18/2012 013 Overview: 04/18/2012Pt smokes one to 2 cigarettes a day, down from one half pack per day. Discussed risks of smoking during . Advised pt to quit. Last Assessment & Plan: 07/18/12: Pt is no longer smoking; states she quit about 2weeks ago. Rosario Lam NP Depression 05/26/2011 09/18/2019 Telangiectasia 01/27/2010 09/18/2019 Rosacea 01/27/2010 09/18/2019 Other acne 01/27/2010 09/18/2019 documented as of this encounter (statuses as of 11/06/2022) [facility] History of Past illness Narrative* Problem Noted Date Resolved Date Urinary incontinence 04/27/2020 04/28/2020 Uncomplicated asthma 09/07/2015 09/18/2019 Overview: 04/18/2012Patient has a history of asthma. She uses an albuterol inhaler when necessary. Routine gynecological examination 12/09/2014 09/18/2019 Overview: [facility]. Chlamydia infection 09/23/2013 09/18/2019 with adoption planned 04/22/2012 10/08/2012 Tobacco use in 04/18/2012 013 Overview: 04/18/2012Pt smokes one to 2 cigarettes a day, down from one half pack per day. Discussed risks of smoking during . Advised pt to quit. Last Assessment & Plan: 07/18/12: Pt is no longer smoking; states she quit about 2weeks ago. Rosario Lam NP Depression 05/26/2011 09/18/2019 Telangiectasia 01/27/2010 09/18/2019 Rosacea 01/27/2010 09/18/2019 Other acne 01/27/2010 09/18/2019 documented as of this encounter (statuses as of 11/07/2022) [facility] History of Past illness Narrative* Problem Noted Date Resolved Date Urinary incontinence 04/27/2020 04/28/2020 Uncomplicated asthma 09/07/2015 09/18/2019 Overview: 04/18/2012Patient has a history of asthma. She uses an albuterol inhaler when necessary. Routine gynecological examination 12/09/2014 09/18/2019 Overview: [facility]. Chlamydia infection 09/23/2013 09/18/2019 with adoption planned 04/22/2012 10/08/2012 Tobacco use in 04/18/2012 013 Overview: 04/18/2012Pt smokes one to 2 cigarettes a day, down from one half pack per day. Discussed risks of smoking during . Advised pt to quit. Last Assessment & Plan: 07/18/12: Pt is no longer smoking; states she quit about 2weeks ago. Rosario Lam NP Depression 05/26/2011 09/18/2019 Telangiectasia 01/27/2010 09/18/2019 Rosacea 01/27/2010 09/18/2019 Other acne 01/27/2010 09/18/2019 documented as of this encounter (statuses as of 11/09/2022) [facility] History of Past illness Narrative* Problem Noted Date Resolved Date Urinary incontinence 04/27/2020 04/28/2020 Uncomplicated asthma 09/07/2015 09/18/2019 Overview: 04/18/2012Patient has a history of asthma. She uses an albuterol inhaler when necessary. Routine gynecological examination 12/09/2014 09/18/2019 Overview: [facility]. Chlamydia infection 09/23/2013 09/18/2019 with adoption planned 04/22/2012 10/08/2012 Tobacco use in 04/18/2012 013 Overview: 04/18/2012Pt smokes one to 2 cigarettes a day, down from one half pack per day. Discussed risks of smoking during . Advised pt to quit. Last Assessment & Plan: 07/18/12: Pt is no longer smoking; states she quit about 2weeks ago. Rosario Lam NP Depression 05/26/2011 09/18/2019 Telangiectasia 01/27/2010 09/18/2019 Rosacea 01/27/2010 09/18/2019 Other acne 01/27/2010 09/18/2019 documented as of this encounter (statuses as of 11/09/2022) [facility] History of Past illness Narrative* Problem Noted Date Resolved Date Urinary incontinence 04/27/2020 04/28/2020 Uncomplicated asthma 09/07/2015 09/18/2019 Overview: 04/18/2012Patient has a history of asthma. She uses an albuterol inhaler when necessary. Routine gynecological examination 12/09/2014 09/18/2019 Overview: [facility]. Chlamydia infection 09/23/2013 09/18/2019 with adoption planned 04/22/2012 10/08/2012 Tobacco use in 04/18/2012 013 Overview: 04/18/2012Pt smokes one to 2 cigarettes a day, down from one half pack per day. Discussed risks of smoking during . Advised pt to quit. Last Assessment & Plan: 07/18/12: Pt is no longer smoking; states she quit about 2weeks ago. Rosario Lam NP Depression 05/26/2011 09/18/2019 Telangiectasia 01/27/2010 09/18/2019 Rosacea 01/27/2010 09/18/2019 Other acne 01/27/2010 09/18/2019 documented as of this encounter (statuses as of 11/15/2022) [facility] History of Past illness Narrative* Problem Noted Date Resolved Date Urinary incontinence 04/27/2020 04/28/2020 Uncomplicated asthma 09/07/2015 09/18/2019 Overview: 04/18/2012Patient has a history of asthma. She uses an albuterol inhaler when necessary. Routine gynecological examination 12/09/2014 09/18/2019 Overview: [facility]. Chlamydia infection 09/23/2013 09/18/2019 with adoption planned 04/22/2012 10/08/2012 Tobacco use in 04/18/2012 013 Overview: 04/18/2012Pt smokes one to 2 cigarettes a day, down from one half pack per day. Discussed risks of smoking during . Advised pt to quit. Last Assessment & Plan: 07/18/12: Pt is no longer smoking; states she quit about 2weeks ago. Rosario Lam NP Depression 05/26/2011 09/18/2019 Telangiectasia 01/27/2010 09/18/2019 Rosacea 01/27/2010 09/18/2019 Other acne 01/27/2010 09/18/2019 documented as of this encounter (statuses as of 11/15/2022) [facility] History of Past illness Narrative* Problem Noted Date Resolved Date Urinary incontinence 04/27/2020 04/28/2020 Uncomplicated asthma 09/07/2015 09/18/2019 Overview: 04/18/2012Patient has a history of asthma. She uses an albuterol inhaler when necessary. Routine gynecological examination 12/09/2014 09/18/2019 Overview: [facility]. Chlamydia infection 09/23/2013 09/18/2019 with adoption planned 04/22/2012 10/08/2012 Tobacco use in 04/18/2012 013 Overview: 04/18/2012Pt smokes one to 2 cigarettes a day, down from one half pack per day. Discussed risks of smoking during . Advised pt to quit. Last Assessment & Plan: 07/18/12: Pt is no longer smoking; states she quit about 2weeks ago. Rosario Lam NP Depression 05/26/2011 09/18/2019 Telangiectasia 01/27/2010 09/18/2019 Rosacea 01/27/2010 09/18/2019 Other acne 01/27/2010 09/18/2019 documented as of this encounter (statuses as of 11/17/2022) [facility] History of Past illness Narrative* Problem Noted Date Resolved Date Urinary incontinence 04/27/2020 04/28/2020 Uncomplicated asthma 09/07/2015 09/18/2019 Overview: 04/18/2012Patient has a history of asthma. She uses an albuterol inhaler when necessary. Routine gynecological examination 12/09/2014 09/18/2019 Overview: [facility]. Chlamydia infection 09/23/2013 09/18/2019 with adoption planned 04/22/2012 10/08/2012 Tobacco use in 04/18/2012 013 Overview: 04/18/2012Pt smokes one to 2 cigarettes a day, down from one half pack per day. Discussed risks of smoking during . Advised pt to quit. Last Assessment & Plan: 07/18/12: Pt is no longer smoking; states she quit about 2weeks ago. Rosario Lam, CLAIRE Depression 05/26/2011 09/18/2019 Telangiectasia 01/27/2010 09/18/2019 Rosacea 01/27/2010 09/18/2019 Other acne 01/27/2010 09/18/2019 documented as of this encounter (statuses as of 11/23/2022) [facility] History of Past illness Narrative* Problem Noted Date Resolved Date Urinary incontinence 04/27/2020 04/28/2020 Uncomplicated asthma 09/07/2015 09/18/2019 Overview: 04/18/2012Patient has a history of asthma. She uses an albuterol inhaler when necessary. Routine gynecological examination 12/09/2014 09/18/2019 Overview: [facility]. Chlamydia infection 09/23/2013 09/18/2019 with adoption planned 04/22/2012 10/08/2012 Tobacco use in 04/18/2012 013 Overview: 04/18/2012Pt smokes one to 2 cigarettes a day, down from one half pack per day. Discussed risks of smoking during . Advised pt to quit. Last Assessment & Plan: 07/18/12: Pt is no longer smoking; states she quit about 2weeks ago. Rosario Lam NP Depression 05/26/2011 09/18/2019 Telangiectasia 01/27/2010 09/18/2019 Rosacea 01/27/2010 09/18/2019 Other acne 01/27/2010 09/18/2019 documented as of this encounter (statuses as of 12/21/2022) [facility] History of Past illness Narrative* Problem Noted Date Resolved Date Urinary incontinence 04/27/2020 04/28/2020 Uncomplicated asthma 09/07/2015 09/18/2019 Overview: 04/18/2012Patient has a history of asthma. She uses an albuterol inhaler when necessary. Routine gynecological examination 12/09/2014 09/18/2019 Overview: [facility]. Chlamydia infection 09/23/2013 09/18/2019 with adoption planned 04/22/2012 10/08/2012 Tobacco use in 04/18/2012 013 Overview: 04/18/2012Pt smokes one to 2 cigarettes a day, down from one half pack per day. Discussed risks of smoking during . Advised pt to quit. Last Assessment & Plan: 07/18/12: Pt is no longer smoking; states she quit about 2weeks ago. Rosario Lam NP Depression 05/26/2011 09/18/2019 Telangiectasia 01/27/2010 09/18/2019 Rosacea 01/27/2010 09/18/2019 Other acne 01/27/2010 09/18/2019 documented as of this encounter (statuses as of 12/27/2022) [facility] Carmelita Mill[facility] May 11, 2023 3:39pm Note Date/Time May 11, 2023 3 :39pm [facility] Medical Records Department [address] [place] [address] Instructions for Home/Discharge Instructions 05/11/231537 MR#: [id number] Acct: [id number] Name: FADUMO HENSLEY Rep #:[id number] : 1995 27 From: Carmelita Millan MD PCP: Dr. Joe Reeves MD Status :[facility] [place] Discharge Instructions Diet Discharge Diet: No restrictions Activity Return to work on:: 05/14/23 May shower in (days): 1 May resume sexual activity in: 2 weeks Lifting Restrictions: none Dressing / Incision Call your doctor if your incision/area has: Sudden Increased Bleeding and Foul Smelling Discharge Call your doctor if you observe: Fever of 101 or Higher and Using more than 1 pad per hour (for 2 hrs in a row) Follow Up Care Please Follow Up With: Carmelita Millan MD When: 2-4 weeks or as needed. Call [phone] to make an appointment or with any concerns or send a ilustrum message. Test Results: Test results from this visit will be discussed in further detail at your follow- up appointment, if applicable. Discharge Plan Admission Attending Provider: Carmelita Millan Primary Care Provider: Joe Reeves Discharge Orders/Prescriptions Prescriptions: No Action etonogestrel-ethinyl estradiol [EluRyng] 0.12-0.015 mg/24 hr ring 1 vag ring vaginal DAILY lisdexamfetamine [Vyvanse] 30 mg capsule 30 mg PO DAILY Patient Comments: TAKE 1 CAPSULE BY MOUTH ONCE DAILY FOR 14 DAYS. methocarbamol 750 mg tablet 750 mg PO TID tizanidine 4 mg capsule 4 mg PO QHS albuterol 90 mcg/actuation aerosol 90 mcg inhalation PRN PRN (Reason: ASTHMA) Referrals / Follow Up: Joe Reeves MD [Primary Care Provider] - Disposition Disposition (needs filled in before D/C Order can be placed): Home, Self Care 05/11/231538<Electronically signed by Carmelita Millan MD>Carmelita Millan MD CC: Dr. Joe Reeves MD ~ Signed [facility] Work Phone: Evaluation + Plan note No data available for this section [facility] Evaluation + Plan note Future Appointments [facility] Evaluation note* Diagnosis Heartburn Attention deficit hyperactivity disorder (ADHD), predominantly inattentive type [facility] Diagnosis Attention deficit hyperactivity disorder (ADHD), predominantly inattentive type- Primary Anxiety with depression [facility] Diagnosis Attention deficit hyperactivity disorder (ADHD), predominantly inattentive type [facility] Diagnosis Attention deficit hyperactivity disorder (ADHD), predominantly inattentive type- Primary Anxiety with depression [facility] Diagnosis Rash- Primary Rash and other nonspecific skin eruption [facility] Diagnosis Screen for STD (sexually transmitted disease)- Primary Screening examination for venereal disease Encounter for gynecological examination (general) (routine) without abnormal findings Screening for cervical cancer Screening for malignant neoplasm of the cervix Encounter for screening for human papillomavirus (HPV) Special screening examination for human papillomavirus (HPV) [facility] Diagnosis 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 of cervix- Primary Papanicolaou smear of cervix with high grade squamous intraepithelial lesion (HGSIL) [facility] Diagnosis Encounter for IUD removal- Primary Encounter for removal of intrauterine contraceptive device Vaginal discharge Leukorrhea, not specified as infective [facility] Diagnosis Missed menses- Primary Absence of menstruation Positive urine test examination or test, positive result [facility] Diagnosis 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 Positive urine test examination or test, positive result [facility]* Diagnosis at early stage- Primary state, incidental 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 of cervix Papanicolaou smear of cervix with high grade squamous intraepithelial lesion (HGSIL) Mild intermittent asthma without complication Unspecified asthma Anxiety with depression PTSD (post-traumatic stress disorder) Posttraumatic stress disorder Attention deficit hyperactivity disorder (ADHD), predominantly inattentive type Tobacco use Tobacco use disorder Gastroesophageal reflux disease, unspecified whether esophagitis present [facility] Diagnosis Threatened - Primary Threatened , unspecified as to episode of care [facility] Diagnosis Threatened - Primary Threatened , unspecified as to episode of care [facility] Diagnosis Supervision of high risk , antepartum- Primary Spotting in early Spotting complicating , antepartum condition or complication History of depression Personal history of other mental disorder Drug abuse (HCC) Other, mixed, or unspecified nondependent drug abuse, unspecified Engages in vaping History of macrosomia in infant in prior , currently with other poor obstetric history Patient request for diagnostic testing Other specified examination [facility]* Diagnosis Encounter for supervision of other normal in first trimester- Primary documented in this encounter [facility] noteNo assessment information [facility]WSt. [facility] Work Phone: Evaluation note* Diagnosis Encounter for supervision of other normal in first trimester- Primary 12 weeks gestation of state, incidental [facility]* Diagnosis Intractable migraine without aura and with status migrainosus- Primary Migraine without aura, with intractable migraine, so stated, with status migrainosus [facility]* Diagnosis Encounter for (NT) nuchal translucency scan- Primary Other specified screening 13 weeks gestation of state, incidental [facility]* Diagnosis Intractable migraine without aura and with status migrainosus- Primary Migraine without aura, with intractable migraine, so stated, with status migrainosus at early stage state, incidental [facility]* Diagnosis Viral illness- Primary Unspecified viral infection, in conditions classified elsewhere and of unspecified site [facility] Diagnosis Intractable migraine without aura and with status migrainosus Migraine without aura, with intractable migraine, so stated, with status migrainosus [facility]* Diagnosis 19 weeks gestation of - Primary state, incidental Migraine with aura and without status migrainosus, not intractable Migraine with aura, without mention of intractable migraine without mention of status migrainosus Engages in vaping [facility]* Diagnosis Encounter for anatomic survey- Primary 22 weeks gestation of state, incidental Obesity complicating , second trimester [facility]* Diagnosis Pharyngitis, unspecified etiology- Primary Ulcer of lower lip [facility]* Diagnosis URI, acute- Primary Acute upper respiratory infections of unspecified site [facility]* Diagnosis 24 weeks gestation of - Primary state, incidental Encounter for supervision of other normal in second trimester [facility]* Diagnosis Viral URI- Primary Acute upper respiratory infections of unspecified site Pharyngitis, unspecified etiology [facility]* Diagnosis Accident caused by hypodermic needle, initial encounter- Primary 24 weeks gestation of state, incidental [facility]* Diagnosis Panic disorder- Primary Panic disorder without agoraphobia Nicotine withdrawal Drug withdrawal [facility]* Diagnosis 34 weeks gestation of - Primary state, incidental Limited care in third trimester Supervision of other high risk pregnancies, third trimester Size of fetus inconsistent with dates in third trimester Need for Tdap vaccination Need for prophylactic vaccination with combined [id number] (DTP) vaccine [facility]* Diagnosis 36 weeks gestation of - Primary state, incidental Abnormal glucose complicating Abnormal maternal glucose tolerance, complicating , childbirth, or the puerperium, unspecified as to episode of care [facility]* Diagnosis Size of fetus inconsistent with dates in third trimester- Primary Limited care in third trimester Supervision of other high risk pregnancies, third trimester 36 weeks gestation of state, incidental [facility]* Diagnosis Anemia during in second trimester- Primary Elevated glucose Other abnormal glucose [facility]* Diagnosis Acute cough- Primary Wheezing [facility]* Diagnosis Diet controlled gestational diabetes mellitus (GDM), antepartum- Primary Abnormal maternal glucose tolerance, antepartum [facility]* Diagnosis Diet controlled gestational diabetes mellitus (GDM), antepartum- Primary documented in this encounter [facility] note* Diagnosis Onset Date Resolution Status High risk multigravida acute [facility] Work Phone: Evaluation note* Diagnosis Diet controlled gestational diabetes mellitus (GDM) in second trimester- Primary [facility]* Diagnosis 38 weeks gestation of - Primary state, incidental documented in this encounter [facility] note* Diagnosis Dietary counseling- Primary Dietary surveillance and counseling Diet controlled gestational diabetes mellitus (GDM), antepartum [facility] Diagnosis Onset Date Resolution Status High risk multigravida acute High risk multigravida acute 39 weeks gestation of acute Gestational diabetes, diet controlled acute High risk multigravida acute (spontaneous vaginal delivery) acute [facility] Work Phone: Evaluation note* Diagnosis Papanicolaou smear of cervix with high grade squamous intraepithelial lesion (HGSIL)- Primary [facility]* Diagnosis Encounter for contraceptive management, unspecified type documented in this encounter [facility] note* Diagnosis General counseling and advice for contraceptive management- Primary Other general counseling and advice for contraceptive management Encounter for prescription for nuvaring Surveillance of other previously prescribed contraceptive method documented in this encounter [facility] note* Diagnosis ADHD (attention deficit hyperactivity disorder), inattentive type- Primary Attention deficit disorder without mention of hyperactivity Controlled substance agreement signed Encounter for long-term (current) use of other medications Encounter for test, result unknown documented in this encounter [facility] note* Diagnosis Onset Date Resolution Status High risk multigravida acute High risk multigravida acute 39 weeks gestation of acute Gestational diabetes, diet controlled acute High risk multigravida acute (spontaneous vaginal delivery) acute nipple pain nonea ctive Care and examination of lactating mother noneactive nipple pain nonea ctive Care and examination of lactating mother noneactive Other disorders of noneactive [facility] Work Phone: Evaluation note* Diagnosis ADHD (attention deficit hyperactivity disorder), inattentive type- Primary Attention deficit disorder without mention of hyperactivity documented in this encounter [facility] note* Diagnosis Migraine with aura, not intractable, without status migrainosus- Primary DDD (degenerative disc disease), lumbar Degeneration of lumbar or lumbosacral intervertebral disc [facility] Diagnosis Kidney stone- Primary Calculus of kidney documented in this encounter [facility] note* Diagnosis Flank pain- Primary Abdominal pain, unspecified site Lower abdominal pain Abdominal pain, other specified site [facility] Diagnosis General counseling and advice for contraceptive management- Primary Other general counseling and advice for contraceptive management High grade squamous intraepithelial lesion (HGSIL), grade 3 MANUEL, on biopsy of cervix [facility] Diagnosis Disturbance of skin sensation- Primary Myofascial pain Mylagia and myositis, unspecified Chronic bilateral low back pain without sciatica [facility] Diagnosis COVID-19 virus infection- [facility] Diagnosis ADHD (attention deficit hyperactivity disorder), inattentive type Attention deficit disorder without mention of hyperactivity documented in this encounter [facility] note* Diagnosis ADHD (attention deficit hyperactivity disorder), inattentive type Attention deficit disorder without mention of hyperactivity [facility] Diagnosis MANUEL III (cervical intraepithelial neoplasia grade III) with severe dysplasia- Primary Carcinoma in situ of cervix uteri General counseling and advice for contraceptive management Other general counseling and advice for contraceptive management Anxiety due to invasive procedure [facility] Diagnosis Onset Date Resolution Status Herniated lumbar intervertebral disc acute DDD (degenerative disc disease), lumbar acute MANUEL III (cervical intraepith elial neoplasia grade III) with severe dysplasia acute Encounter for IUD insertion acute [facility] Work Phone: Evaluation note* Diagnosis ADHD (attention deficit hyperactivity disorder), inattentive type Attention deficit disorder without mention of hyperactivity Controlled substance agreement signed Encounter for long-term (current) use of other medications Encounter for test, result unknown documented in this encounter [facility] note* Diagnosis MANUEL III (cervical intraepithelial neoplasia grade III) with severe dysplasia- Primary 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), grade 3 MANUEL, on biopsy of cervix [facility] Diagnosis Migraine with aura, not intractable, without status migrainosus [facility] Diagnosis Migraine with aura and without status migrainosus, not intractable- Primary Migraine with aura, without mention of intractable migraine without mention of status migrainosus FTND (full term normal delivery) Normal delivery [facility] Diagnosis MANUEL III (cervical intraepithelial neoplasia grade III) with severe dysplasia- Primary Carcinoma in situ of cervix uteri IUD check up Surveillance of previously prescribed intrauterine contraceptive device [facility] Diagnosis Chest pain, unspecified type- Primary Numbness and tingling of right side of face [facility] Diagnosis Chest pain, unspecified type- Primary Numbness and tingling of right side of face Anxiety with depression Overweight with body mass index (BMI) of 28 to 28.9 in adult [facility] Diagnosis Adult ADHD- Primary Attention deficit disorder with hyperactivity Panic disorder Panic disorder without agoraphobia Bulging of intervertebral disc between L4 and L5 and L5 and S1 History of hepatitis C Personal history of other infectious and parasitic disease High grade squamous intraepithelial lesion (HGSIL) on cytologic smear of cervix Smoking Tobacco use disorder Need for lipid screening Screening for lipoid disorders Diabetes mellitus screening Screening for diabetes mellitus Overweight with body mass index (BMI) of 29 to 29.9 in adult [facility] Diagnosis ADHD (attention deficit hyperactivity disorder), inattentive type Attention deficit disorder without mention of hyperactivity [facility] Diagnosis Urinary tract infection without hematuria, site unspecified- Primary Flank pain Abdominal pain, unspecified site Adrenal adenoma, unspecified laterality Renal calculi Calculus of kidney documented in this encounter [facility] Work Phone: Evaluation note* Diagnosis Disorder of adrenal gland (HCC)- Primary Unspecified disorder of adrenal glands Adrenal mass 1 cm to 4 cm in diameter (HCC) [facility]* Diagnosis Routine physical examination- Primary Routine general medical examination at a health care facility Encounter for immunization Need for other specified prophylactic vaccination against single bacterial disease Migraine with aura, not intractable, without status migrainosus Panic disorder Panic disorder without agoraphobia Disorder of adrenal gland (HCC) Unspecified disorder of adrenal glands ADHD (attention deficit hyperactivity disorder), inattentive type Attention deficit disorder without mention of hyperactivity [facility] Diagnosis ADHD (attention deficit hyperactivity disorder), inattentive type Attention deficit disorder without mention of hyperactivity [facility] Diagnosis Disorder of adrenal gland (HCC)- Primary Unspecified disorder of adrenal glands [facility] Diagnosis Panic disorder Panic disorder without agoraphobia [facility] Diagnosis ADHD (attention deficit hyperactivity disorder), inattentive type- Primary Attention deficit disorder without mention of hyperactivity Panic disorder Panic disorder without agoraphobia Facial paralysis Terry's palsy Cramping of hands Cramp of limb Near syncope Syncope and collapse [facility] Diagnosis Flank pain Abdominal pain, unspecified site Kidney stones Calculus of kidney documented in this encounter [facility] Work Phone: Evaluation note* Diagnosis Kidney stones Calculus of kidney documented in this encounter [facility] Work Phone: Evaluation note* Diagnosis ADHD (attention deficit hyperactivity disorder), inattentive type- Primary Attention deficit disorder without mention of hyperactivity Panic disorder Panic disorder without agoraphobia Migraine with aura, not intractable, without status migrainosus History of hepatitis C Personal history of other infectious and parasitic disease Overweight with body mass index (BMI) of 28 to 28.9 in adult Anxiety with depression DDD (degenerative disc disease), lumbar Degeneration of lumbar or lumbosacral intervertebral disc History of abnormal cervical Pap smear Personal history of other genital system and obstetric disorders [facility] Diagnosis Flank pain Abdominal pain, unspecified site Kidney stones Calculus of kidney documented in this encounter [facility] Work Phone: Evaluation note* Diagnosis Migraine with aura and without status migrainosus, not intractable- Primary Migraine with aura, without mention of intractable migraine without mention of status migrainosus Cramping of hands Cramp of limb Facial paralysis Terry's palsy Near syncope Syncope and collapse Adrenal nodule (HCC) Unspecified disorder of adrenal glands [facility] Diagnosis Disorder of adrenal gland (HCC) Unspecified disorder of adrenal glands Migraine with aura and without status migrainosus, not intractable Migraine with aura, without mention of intractable migraine without mention of status migrainosus FTND (full term normal delivery) Normal delivery [facility]* Diagnosis Migraine with aura and without status migrainosus, not intractable Migraine with aura, without mention of intractable migraine without mention of status migrainosus FTND (full term normal delivery) Normal delivery [facility]* Diagnosis Migraine with aura and without status migrainosus, not intractable- Primary Migraine with aura, without mention of intractable migraine without mention of status migrainosus [facility] Diagnosis Motion sickness, initial encounter- Primary [facility]* Diagnosis ADHD (attention deficit hyperactivity disorder), inattentive type Attention deficit disorder without mention of hyperactivity [facility]* Diagnosis Kidney stone- Primary Calculus of kidney Kidney stone Calculus of kidney Hepatitis C virus carrier state (Multi) Chronic pain syndrome Chronic low back pain Lumbago Skin cancer Other malignant neoplasm of skin, site unspecified documented in this encounter [facility] Work Phone: Evaluation note* Diagnosis Migraine headaches- Primary documented in this encounter [facility] note* Diagnosis Migraine with aura, not intractable, without status migrainosus- Primary [facility] Diagnosis Anxiety reaction- Primary Anxiety state, unspecified documented in this encounter [facility] Work Phone: Evaluation note* Diagnosis ADHD (attention deficit hyperactivity disorder), inattentive type- Primary Attention deficit disorder without mention of hyperactivity Panic disorder Panic disorder without agoraphobia Migraine with aura, not intractable, without status migrainosus History of hepatitis C Personal history of other infectious and parasitic disease Anxiety with depression DDD (degenerative disc disease), lumbar Degeneration of lumbar or lumbosacral intervertebral disc History of abnormal cervical Pap smear Personal history of other genital system and obstetric disorders ADHD (attention deficit hyperactivity disorder), inattentive type- Primary Attention deficit disorder without mention of hyperactivity Panic disorder Panic disorder without agoraphobia Anxiety with depression Migraine with aura, not intractable, without status migrainosus History of hepatitis C Personal history of other infectious and parasitic disease documented in this encounter [facility] note* Diagnosis Adrenal nodule (HCC)- Primary Unspecified disorder of adrenal glands ADHD (attention deficit hyperactivity disorder), inattentive type- Primary Attention deficit disorder without mention of hyperactivity Panic disorder Panic disorder without agoraphobia Anxiety with depression Migraine with aura, not intractable, without status migrainosus History of hepatitis C Personal history of other infectious and parasitic disease [facility] Diagnosis ADHD (attention deficit hyperactivity disorder), inattentive type- Primary Attention deficit disorder without mention of hyperactivity Panic disorder Panic disorder without agoraphobia Anxiety with depression Migraine with aura, not intractable, without status migrainosus History of hepatitis C Personal history of other infectious and parasitic disease [facility] Diagnosis Malpositioned intrauterine device (IUD), initial encounter- Primary [facility] Diagnosis Abnormal EKG- Primary Nonspecific abnormal electrocardiogram (ECG) (EKG) Pain, dental Unspecified disorder of the teeth and supporting structures [facility] Diagnosis Chronic midline low back pain without sciatica- Primary [facility]* Diagnosis Right lower quadrant abdominal pain- Primary Abdominal pain, right lower quadrant [facility] Diagnosis Pain, dental- Primary Unspecified disorder of the teeth and supporting structures Dental infection Acute apical periodontitis of pulpal origin [facility] Diagnosis Chronic midline low back pain without sciatica [facility]* Diagnosis RBBB- Primary Right bundle branch block Chronic midline low back pain without sciatica ADHD (attention deficit hyperactivity disorder), inattentive type Attention deficit disorder without mention of hyperactivity Anxiety with depression Migraine with aura, not intractable, without status migrainosus Degeneration of intervertebral disc of lumbar region with discogenic back pain Class 1 obesity due to excess calories without serious comorbidity with body mass index (BMI) of 30.0 to 30.9 in adult Screening for cervical cancer Screening for malignant neoplasm of the cervix RBBB- Primary Right bundle branch block Chronic midline low back pain without sciatica ADHD (attention deficit hyperactivity disorder), inattentive type Attention deficit disorder without mention of hyperactivity Anxiety with depression Class 1 obesity due to excess calories without serious comorbidity with body mass index (BMI) of 30.0 to 30.9 in adult Screening for cervical cancer Screening for malignant neoplasm of the cervix [facility] Diagnosis Encounter for IUD removal- Primary Encounter for removal of intrauterine contraceptive device Screening for malignant neoplasm of cervix Screening for malignant neoplasm of the cervix Encounter for screening for human papillomavirus (HPV) Special screening examination for human papillomavirus (HPV) RBBB- Primary Right bundle branch block Chronic midline low back pain without sciatica ADHD (attention deficit hyperactivity disorder), inattentive type Attention deficit disorder without mention of hyperactivity Anxiety with depression Class 1 obesity due to excess calories without serious comorbidity with body mass index (BMI) of 30.0 to 30.9 in adult Screening for cervical cancer Screening for malignant neoplasm of the cervix [facility]* Diagnosis Class 1 obesity due to excess calories without serious comorbidity with body mass index (BMI) of 30.0 to 30.9 in adult- Primary RBBB- Primary Right bundle branch block Chronic midline low back pain without sciatica ADHD (attention deficit hyperactivity disorder), inattentive type Attention deficit disorder without mention of hyperactivity Anxiety with depression Class 1 obesity due to excess calories without serious comorbidity with body mass index (BMI) of 30.0 to 30.9 in adult Screening for cervical cancer Screening for malignant neoplasm of the cervix [facility] Diagnosis Chronic midline low back pain without sciatica RBBB- Primary Right bundle branch block Chronic midline low back pain without sciatica ADHD (attention deficit hyperactivity disorder), inattentive type Attention deficit disorder without mention of hyperactivity Anxiety with depression Class 1 obesity due to excess calories without serious comorbidity with body mass index (BMI) of 30.0 to 30.9 in adult Screening for cervical cancer Screening for malignant neoplasm of the cervix [facility] Diagnosis Other abnormal cytological finding of specimen from cervix- Primary RBBB- Primary Right bundle branch block Chronic midline low back pain without sciatica ADHD (attention deficit hyperactivity disorder), inattentive type Attention deficit disorder without mention of hyperactivity Anxiety with depression Class 1 obesity due to excess calories without serious comorbidity with body mass index (BMI) of 30.0 to 30.9 in adult Screening for cervical cancer Screening for malignant neoplasm of the cervix [facility] Diagnosis Sore throat- Primary Acute pharyngitis Viral upper respiratory tract infection with cough Acute upper respiratory infections of unspecified site RBBB- Primary Right bundle branch block Chronic midline low back pain without sciatica ADHD (attention deficit hyperactivity disorder), inattentive type Attention deficit disorder without mention of hyperactivity Anxiety with depression Class 1 obesity due to excess calories without serious comorbidity with body mass index (BMI) of 30.0 to 30.9 in adult Screening for cervical cancer Screening for malignant neoplasm of the cervix [facility] Diagnosis Chronic midline low back pain without sciatica RBBB- Primary Right bundle branch block Chronic midline low back pain without sciatica ADHD (attention deficit hyperactivity disorder), inattentive type Attention deficit disorder without mention of hyperactivity Anxiety with depression Class 1 obesity due to excess calories without serious comorbidity with body mass index (BMI) of 30.0 to 30.9 in adult Screening for cervical cancer Screening for malignant neoplasm of the cervix [facility] Diagnosis Atypical glandular cells of undetermined significance (ZENA) on cervical Pap smear- Primary Abnormal glandular Papanicolaou smear of cervix RBBB- Primary Right bundle branch block Chronic midline low back pain without sciatica ADHD (attention deficit hyperactivity disorder), inattentive type Attention deficit disorder without mention of hyperactivity Anxiety with depression Class 1 obesity due to excess calories without serious comorbidity with body mass index (BMI) of 30.0 to 30.9 in adult Screening for cervical cancer Screening for malignant neoplasm of the cervix [facility] Diagnosis Dental abscess- Primary Periapical abscess without sinus documented in this encounter [facility] Work Phone: Evaluation note* Diagnosis Chronic midline low back pain without sciatica RBBB- Primary Right bundle branch block Chronic midline low back pain without sciatica ADHD (attention deficit hyperactivity disorder), inattentive type Attention deficit disorder without mention of hyperactivity Anxiety with depression Class 1 obesity due to excess calories without serious comorbidity with body mass index (BMI) of 30.0 to 30.9 in adult Screening for cervical cancer Screening for malignant neoplasm of the cervix [facility] Diagnosis Migraine with aura and without status migrainosus, not intractable Migraine with aura, without mention of intractable migraine without mention of status migrainosus RBBB- Primary Right bundle branch block Chronic midline low back pain without sciatica ADHD (attention deficit hyperactivity disorder), inattentive type Attention deficit disorder without mention of hyperactivity Anxiety with depression Class 1 obesity due to excess calories without serious comorbidity with body mass index (BMI) of 30.0 to 30.9 in adult Screening for cervical cancer Screening for malignant neoplasm of the cervix [facility] Diagnosis Procedure, test, or exam not indicated- Primary Procedure not carried out for other reasons [facility] Diagnosis Chronic midline low back pain without sciatica [facility] Diagnosis Other migraine with status migrainosus, intractable- Primary documented in this encounter [facility] Work Phone: Evaluation note* Diagnosis Chronic midline low back pain without sciatica [facility] Diagnosis Chronic midline low back pain without sciatica [facility] Diagnosis Chronic midline low back pain without sciatica [facility] Diagnosis Lumbar contusion, initial encounter- Primary documented in this encounter [facility] Work Phone: evaluation note* Diagnosis Degeneration of intervertebral disc of lumbar region with discogenic back pain- Primary Bulging of intervertebral disc between L4 and L5 and L5 and S1 ADHD (attention deficit hyperactivity disorder), inattentive type Attention deficit disorder without mention of hyperactivity Anxiety with depression [facility] Diagnosis Chronic midline low back pain without sciatica [facility] Diagnosis Pelvic pain in female- Primary Unspecified symptom associated with female genital organs Dysmenorrhea Irregular menstruation Irregular menstrual cycle Encounter for surveillance of vaginal ring hormonal contraceptive device [facility] Diagnosis Pelvic pain in female- Primary Unspecified symptom associated with female genital organs [facility] Diagnosis Lower abdominal pain- Primary Abdominal pain, other specified site documented in this encounter [facility] Work Phone: Evaluation note* Diagnosis Encounter for IUD insertion- Primary Encounter for insertion of intrauterine contraceptive device [facility] Diagnosis Right lower quadrant abdominal pain- Primary Abdominal pain, right lower quadrant Pelvic pain Chronic midline low back pain without sciatica ADHD (attention deficit hyperactivity disorder), inattentive type Attention deficit disorder without mention of hyperactivity Anxiety with depression Migraine with aura and without status migrainosus, not intractable Migraine with aura, without mention of intractable migraine without mention of status migrainosus History of abnormal cervical Pap smear Personal history of other genital system and obstetric disorders Smoking history Personal history of tobacco use, presenting hazards to health [facility] Encounter for test, result positive (HCC) examination or test, positive result [facility] [facility] Diagnosis Anxiety neurosis- Primary Anxiety state, unspecified Attention deficit hyperactivity disorder (ADHD), combined type Unplanned (HCC) state, incidental * Assessment & Plan Note - Carmelita Millan MD - 03/30/2025 1:27 PM EDT Associated Problem(s): Attention deficit disorder refill of lamictal until sees psychiatry. [facility] Diagnosis Palpitations- Primary documented in this encounter [facility] Work Phone: Hospital Discharge instructions Additional Instructions Keep next appointment OB in office next week.[facility] Work Phone: Hospital Discharge instructions Additional Instructions Please follow-up with the orthopedic doctor we have referred you to and return for any worsening of your symptoms.[facility] Work Phone: Hospital Discharge instructions* Attachments The following attachments cannot be sent through Care Everywhere. * Kidney Stone, Adult ED (Cuban) [facility]* Attachments The following attachments cannot be sent through Care Everywhere. * Generalized Anxiety Disorder Discharge Instructions (Cuban) [facility] Discharge instructions No data available for this section [facility] Hospital Discharge instructions* Attachments The following attachments cannot be sent through Care Everywhere. * Tooth Abscess Discharge Instructions (Cuban) [facility]* Attachments The following attachments cannot be sent through Care Everywhere. * Migraines Discharge Instructions (Cuban) [facility]* Attachments The following attachments cannot be sent through Care Everywhere. * Minor Contusion ED (Cuban) [facility] Discharge [facility]* Attachments The following attachments cannot be sent through Care Everywhere. * Abdominal pain (Cuban) [facility] Discharge [facility]* Attachments The following attachments cannot be sent through Care Everywhere. * Palpitations ED discharge instructions (Cuban) * Ambulatory Cardiac Monitoring (Cuban) [facility] Work Phone: Progress note No data available for this section [facility] Reason for referral (narrative)* Outpatient Procedure (Routine) - Pending Review Specialty Diagnoses / Procedures Referred By Dave rocha Referred To Contact [facility] Diagnoses Encounter for gynecological examination (general) (routine) without abnormal findings Procedures REMOVE INTRAUTERINE DEVICE REMOVE INTRAUTERINE DEVICE Sulma Bartholomew APRN.CNM [address] [place] [address] [facility] [address] [place] [address] Referral ID Status Reason Start Date Expiration Date Visits Requested Visits Authorized [id number] Pending Review Auto-Generat ed Referral 12/28/2021 12/28/2022 1 1 [facility] Outpatient Procedure (Routine) - Authorized Specialty Diagnoses / Procedures Referred By Dave rocha Referred To Contact [facility] Diagnoses 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 of cervix Procedures COLPOSCOPY COLPOSCOPY CERVIX BX CERVIX & ENDOCRV CURRETAGE Sulma Bartholomew APRN.CNM [address] [place] [address] [address] [place] [address] Referral ID Status Reason Start Date Expiration Date Visits Requested Visits Authorized [id number] Authorized Auto-Generat ed Referral 01/10/2022 01/10/2023 1 1 [facility] for referral (narrative)* Outpatient Procedure (Routine) - Pending Review Specialty Diagnoses / Procedures Referred By Contac t Referred To [facility] Diagnoses Encounter for IUD removal Procedures REMOVE INTRAUTERINE DEVICE REMOVE INTRAUTERINE DEVICE Sulma Bartholomew APRN.CNM [address] [place] [address] [address] Referral ID Status Reason Start Date Expiration Date Visits Requested Visits Authorized [id number] Pending Review Auto-Generat ed Referral 01/19/2022 01/19/2023 1 1 [facility] for referral (narrative)* Diagnostic Procedure Only (Routine) - Authorized Specialty Diagnoses / Procedures Referred By Contac t Referred To [facility] Diagnoses 34 weeks gestation of Limited care in third trimester Supervision of other high risk pregnancies, third trimester Size of fetus inconsistent with dates in third trimester Procedures OBSTETRIC ULTRASOUND WHI US PREG UTERUS AFTER 1ST TRIMEST GESTATION Carmelita Millan MD [address] [place] [address] [address] Referral ID Status Reason Start Date Expiration Date Visits Requested Visits Authorized [id number] Authorized Auto-Generat ed Referral 10/18/2022 10/18/2023 1 1 [facility] for referral (narrative)* Diagnostic Procedure Only (Routine) - Pending Review Specialty Diagnoses / Procedures Referred By Contac t Referred To Contact [facility] Diagnoses Diet controlled gestational diabetes mellitus (GDM), antepartum Procedures OBSTETRIC ULTRASOUND WHI US PREG UTERUS AFTER 1ST TRIMEST GESTATION Sulma Bartholomew APRN.CNM [address] [place] [address] [facility] [address] [place] [address] Referral ID Status Reason Start Date Expiration Date Visits Requested Visits Authorized [id number] Pending Review Auto-Generat ed Referral 11/08/2022 11/08/2023 1 1 [facility] for referral (narrative)* Outpatient Procedure (Routine) - Pending Review Specialty Diagnoses / Procedures Referred By Contac t Referred To Contact [facility] Diagnoses Papanicolaou smear of cervix with high grade squamous intraepithelial lesion (HGSIL) Procedures COLPOSCOPY COLPOSCOPY CERVIX BX CERVIX & ENDOCRV CURRETAGE Carmelita Millan MD [address] [place] [address] [facility] [address] [place] [address] Referral ID Status Reason Start Date Expiration Date Visits Requested Visits Authorized [id number] Pending Review Auto-Generat ed Referral 12/27/2022 12/27/2023 1 1 [facility] for referral (narrative)* Outpatient Procedure (Routine) - Pending Review Specialty Diagnoses / Procedures Referred By Contac t Referred To Contact [facility] Diagnoses Encounter for IUD insertion Encounter for contraceptive management, unspecified type Procedures INSERT INTRAUTERINE DEVICE LEVONORGESTREL IU 52MG 5 YR INSERT INTRAUTERINE DEVICE Carmelita Millan MD [address] [place] [address] [facility] [address] [place] [address] Referral ID Status Reason Start Date Expiration Date Visits Requested Visits Authorized [id number] Pending Review Auto-Generat ed Referral 01/03/2023 01/03/2024 1 1 [facility] for referral (narrative)* Diagnostic Procedure Only (Urgent) - Pending Review Specialty Diagnoses / Procedures Referred By Soteroac t Referred To Contact [facility] Diagnoses Flank pain Procedures US KIDNEY/BLADDER US RETROPERITONEAL REAL TIME W/IMAGE COMPLETE Debby Reeves MD [address] [place] [address] Us Imaging [facility] Referral ID Status Reason Start Date Expiration Date Visits Requested Visits Authorized [id number] Pending Review Auto-Generat ed Referral 03/13/2023 04/11/2024 1 1 [facility] for referral (narrative)* Outpatient Procedure (Routine) - Denied Specialty Diagnoses / Procedures Referred By Contac t Referred To Contact [facility] Diagnoses Malpositioned intrauterine device (IUD), initial encounter Encounter for insertion of intrauterine contraceptive device Encounter for removal of intrauterine contraceptive device Procedures REMOVE INTRAUTERINE DEVICE REMOVE INTRAUTERINE DEVICE LEVONORGESTREL IU 52MG 5 YR INSERT INTRAUTERINE DEVICE Carmelita Millan MD [address] [place] [address] [facility] [address] [place] [address] Referral ID Status Reason Start Date Expiration Date V isits Requested Visits Authorized [id number] Denied Auto-Generate d Referral 03/18/2024 03/18/2025 1 0 [facility] for referral (narrative)* Outpatient Procedure (Routine) - New Request Specialty Diagnoses / Procedures Referred By Contac t Referred To Contact [facility] Diagnoses Encounter for IUD removal Procedures REMOVE INTRAUTERINE DEVICE REMOVE INTRAUTERINE DEVICE Angela Haq APRN.QUANTITATIVE ANALYST [employer]ETING [address] [place] [address] [facility] [address] [place] [address] Referral ID Status Reason Start Date Expiration Date Visits Requested Visits Authorized [id number] New Request Auto-Generat ed Referral 05/19/2025 1 1 [facility] for referral (narrative)* Outpatient Procedure (Routine) - Authorized Specialty Diagnoses / Procedures Referred By Dave t Referred To Contact [facility] Diagnoses Other abnormal cytological finding of specimen from cervix Procedures COLPOSCOPY COLPOSCOPY CERVIX BX CERVIX & ENDOCRV CURRETAGE Angela Haq APRN.CNP [address] [place] [address] [address] Referral ID Status Reason Start Date Expiration Date Visits Requested Visits Authorized [id number] Authorized Auto-Generat ed Referral 05/26/2024 05/26/2025 1 1 [facility] for visit Narrative* Diagnostic Procedure Only (Routine) - Closed Specialty Diagnoses / Procedures Referred By Dave t Referred To Contact [facility] Diagnoses Pelvic pain in female Procedures PELVIC US [facility] US PELVIC NONOBSTETRIC REAL-TIME IMAGE COMPLETE Carmelita Millan MD [address] [place] [address] Phone: tel: fax: [address] [address] Referral ID Status Reason Start Date Expiration Date V isits Requested Visits Authorized [id number] Closed Auto-Generate d Referral 01/29/2025 01/29/2026 1 1 [facility] for visit Narrative* Diagnostic Procedure Only (Routine) - Closed Specialty Diagnoses / Procedures Referred By Dave t Referred To Contact [facility] Diagnoses Encounter for test, result positive (HCC) Procedures PELVIC US [facility] US PELVIC NONOBSTETRIC REAL-TIME IMAGE COMPLETE Candice Orozco APRN.CNP [address] [place] [address] Phone: tel: fax: [facility] [place] [address] Referral ID Status Reason Start Date Expiration Date V isits Requested Visits Authorized [id number] Closed Auto-Generate d Referral 02/27/2025 02/27/2026 1 1 [facility] Summary Purpose Family History No Family History Records Found Relationship Condition Age at Onset Recorded Date/T bessie Unknown Family History?- Unknown July 8:35pm Family History?Cancer, - Unknown Jun 1:56am Family History?Diabe du, Renal Disease, - Unknown July 20, 2019 1:56am Relationship Condition Age at Onset Recorded Date/T bessie Unknown Family History?- Unknown July 7:35pm Family History?Cancer, - Unknown Jun 12:56am Family History?Diabe du, Renal Disease, - Unknown July 20, 2019 12:56am Advance Directives No Advanced Directives Records FoundDocuments on File Type Date 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 Advance Directive(s) 10/27/2020 10:15 AM Advance Directive(s) 04/27/2020 2:43 AM Documents on File Type Date 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 Advance Directive(s) 10/27/2020 10:15 AM Advance Directive(s) 04/27/2020 2:43 AM Advance Directive Response Recorded Date/ Time Advance Directives No July 28, 2015 12:11am Living Will No May 02 7:41pm Power of Sandwich Board Carrier No May 02, 2022 7:41pm Advance Directive Response Recorded Date/ Time Advance Directives No July 28, 2015 12:11am Living Will No August 13 8:00pm Power of Sandwich Board Carrier No August 13, 2022 8:00pm Advance Directive Response Recorded Date/ Time Advance Directives No July 28, 2015 12:11am Living Will No November 22, 2022 7: 32am Power of Sandwich Board Carrier No November 22, 2022 7:32am Advance Directive Response Recorded Date/ Time Advance Directives No July 28, 2015 12:11am Living Will No February 16, 2023 4:35pm Power of Sandwich Board Carrier No February 16 4:35pm Advance Directive Response Recorded Date/ Time Advance Directives No July 28, 2015 12:11am Living Will No May 04 1:39pm Power of Sandwich Board Carrier No May 04, 2023 1:39pm Advance Directive Response Recorded Date/ Time Advance Directives No July 27, 2015 11:11pm Living Will No June 04, 2 023 6:45pm Power of Sandwich Board Carrier No June 04, 2023 6:45pm Date Activated Date Inactivated Comments 11/06/2023 6:59 AM Question Answer Comments Plan of Care: Code Status Discussion Completed Decision Maker: Patient Date Activated Date Inactivated Comments 11/06/2023 6:59 AM Question Answer Comments Plan of Care: Code Status Discussion Completed Decision Maker: Patient Hospital Course Note HNO ID: [id number] Author: Susan herrera ([facility]Simon Olivares Service: General Internal Medicine Author Type: Nurse Practitioner Type: Discharge Summary Filed: 04/30/2020 6:17 AM Note Text: Attestation signed by Naheed Fuchs at 04/30/2020 1:32 PM Naheed Fuchs MD DISCHARGE NOTE (Patient Admitted Less than 48 Hours) SERVICE DATE: 04/28/2020 SERVICE TIME: 04:37 PM ADMISSION DATE: 04/27/2020 DISCHARGE DISPOSITION: Home/Self Care S: Seen resting in bed. Has received IV decadron, Gabapentin and Roxicodone since arrival with with improvement, but not full resolution, of her lower back discomfort. Still with radiculopathy to the lower extremities, left worse than right. Some thoracic discomfort. No urinary or bowel incontinence during OBV stay. MRI imaging complete and reviewed by Neurosurgery team. Patient amenable to out patient nerve block an (more content not included)... Reason for Referral Specialty Diagnoses / Procedures Referred By Contac t Referred To Contact Debby Reeves MD [address] [place] [address] Referral ID Status Reason Start Date Expiration Date Visits Re quested Visits Authorized [id number] Closed 1 1 Specialty Diagnoses / Procedures Referred By Contac t Referred To Contact Diagnoses Migraine with aura and without status migrainosus, not intractable Procedures CONSULT TO [facility] CLINIC OFFICE[facility]74 [facility] Sulma Bartholomew APRN.CNM [address] [place] [address] Referral ID Status Reason Start Date Expiration Date Visits Requested Visits Authorized [id number] Authorized PCP Requested Referral 07/06/2023 1 1 Specialty Diagnoses / Procedures Referred By Contac t Referred To Contact Nutrition Diagnoses Diet controlled gestational diabetes mellitus (GDM), antepartum Procedures CONSULT TO NUTRITION THERAPY MEDICAL NUTRITION ASSMT&IVNTJ INDIV EACH 15 WV MEDICAL NUTRITION ASSMT&IVNTJ INDIV EACH 15 [place] MEDICAL NUTRITION ASSMT&IVNTJ INDIV EACH 15 WV MEDICAL NUTRITION ASSMT&IVNTJ INDIV EACH 15 WV Sulma Bartholomew APRN.CNM [address] [place] [address] Referral ID Status Reason Start Date Expiration Date Visits Requested Visits Authorized [id number] Authorized PCP Requested Referral 11/08/2022 11/08/2023 1 1 Specialty Diagnoses / Procedures Referred By Contac t Referred To Contact Urology Diagnoses Kidney stone Procedures CONSULT TO [facility]OLOGY OFFICE[facility] 60-74 MINUTES Debby Reeves MD [address] [place] [address] Referral ID Status Reason Start Date Expiration Date Visits Requested Visits Authorized [id number] Authorized PCP Requested Referral 03/12/2023 03/11/2024 1 1 Specialty Diagnoses / Procedures Referred By Contac t Referred To Contact [facility] Diagnoses Disturbance of skin sensation Myofascial pain Chronic bilateral low back pain without sciatica Procedures CONSULT TO PHYSICAL THERAPY PHYSICAL THERAPY EVALUATION HIGH COMPLEX 45 MINS Brendon Ibarra APRN.QUANTITATIVE ANALYST MARKETING [address] [place] [address] [facility] [address] [place] [address] Referral ID Status Reason Start Date Expiration Date Visits Requested Visits Authorized [id number] Outside PCP Auto-Generat ed Referral 03/15/2023 03/14/2024 1 1 Specialty Diagnoses / Procedures Referred By Contac t Referred To Contact [facility] Diagnoses Migraine with aura and without status migrainosus, not intractable FTND (full term normal delivery) Procedures MRV BRAIN WO/W IVCON MRA; HEAD W & WO CONTRAST Lashon Saba PA-C [address] [place] [address] Mr Imaging [address] [address] Referral ID Status Reason Start Date Expiration Date Visits Requested Visits Authorized [id number] Pending Review Auto-Generat ed Referral 05/30/2023 06/28/2024 1 1 Specialty Diagnoses / Procedures Referred By Contac t Referred To Contact Nutrition Diagnoses Overweight with body mass index (BMI) of 28 to 28.9 in adult Procedures CONSULT TO NUTRITION THERAPY MEDICAL NUTRITION ASSMT&IVNTJ INDIV EACH 15 WV MEDICAL NUTRITION ASSMT&IVNTJ INDIV EACH 15 WV MEDICAL NUTRITION ASSMT&IVNTJ INDIV EACH 15 WV MEDICAL NUTRITION ASSMT&IVNTJ INDIV EACH 15 WV Debby Reeves MD [address] [place] [address] Referral ID Status Reason Start Date Expiration Date Visits Requested Visits Authorized [id number] Authorized PCP Requested Referral 3 06/12/2024 1 1 Specialty Diagnoses / Procedures Referred By Contac t Referred To Contact Diagnoses Overweight with body mass index (BMI) of 29 to 29.9 in adult Procedures ENDOCRINE MEDICAL WEIGHT MANAGEMENT OFFICE[facility] 60-74 MINUTES Keaton Tracy MD [address] [place] [address] Referral ID Status Reason Start Date Expiration Date Visits Requested Visits Authorized [id number] Authorized PCP Requested Referral 3 07/02/2024 1 1 Specialty Diagnoses / Procedures Referred By Contac t Referred To Contact Diagnoses ADHD (attention deficit hyperactivity disorder), inattentive type Debby Reeves MD [address] [place] [address] Referral ID Status Reason Start Date Expiration Date Visits Re quested Visits Authorized [id number] Closed 1 1 Specialty Diagnoses / Procedures Referred By Contac t Referred To Contact [facility] Diagnoses 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 (HCC) Procedures MRI ADRENAL WO/W IVCON MRI ABDOMEN W/O & W/CONTRAST MATERIAL Damaso Jang MD [address] [place] [address] Mr Imaging [facility]95 Referral ID Status Reason Start Date Expiration Date Visits Requested Visits Authorized [id number] Pending Review Auto-Generat ed Referral 08/31/2023 09/29/2024 1 1 Referral ID Status Reason Start Date Expiration Date V isits Requested Visits Authorized [id number] Pending Review 1 1 Specialty Diagnoses / Procedures Referred By Contac t Referred To Contact [facility] Diagnoses Disorder of adrenal gland (HCC) Procedures MRI ADRENAL WO IVCON MRI, ABDOMEN (MRI) Damaso Jang MD [address] [place] [address] Mr Imaging [facility]95 Referral ID Status Reason Start Date Expiration Date Visits Requested Visits Authorized [id number] Pending Review Auto-Generat ed Referral 09/13/2023 10/12/2024 1 1 Specialty Diagnoses / Procedures Referred By Contac t Referred To Contact Neurology Diagnoses Cramping of hands Facial paralysis Near syncope Procedures CONSULT TO NEUROLOGY OFFICE[facility] 60 MINUTES Aliyah Carter APRN.QUANTITATIVE ANALYST MARKETING [address] [place] [address] Referral ID Status Reason Start Date Expiration Date Visits Requested Visits Authorized [id number] Authorized PCP Requested Referral 09/21/2023 09/20/2024 1 1 Specialty Diagnoses / Procedures Referred By Contac t Referred To Contact Radiology Diagnoses Kidney stones Procedures XR abdomen 1 view Dev Narayan MD [address] [place] [address] Referral ID Status Reason Start Date Expiration Date Visits Requested Visits Authorized [id number] Authorized Perform Procedure 09/24/2023 09/23/2024 1 1 Specialty Diagnoses / Procedures Referred By Contac t Referred To Contact Endocrinology Diagnoses Cramping of hands Facial paralysis Near syncope Adrenal nodule (HCC) Procedures CONSULT TO ENDOCRINOLOGY OFFICE[facility] 60 MINUTES Damaso Samuels Jr., MD [address] [facility] [address] [place] [address] Referral ID Status Reason Start Date Expiration Date Visits Requested Visits Authorized [id number] Authorized PCP Requested Referral 10/01/2023 09/30/2024 1 1 Specialty Diagnoses / Procedures Referred By Contac t Referred To Contact [facility] Diagnoses Cramping of hands Facial paralysis Near syncope Migraine with aura and without status migrainosus, not intractable Procedures EPIL EEG ROUTINE ELECTROENCEPHALOGRAM REC COMA/SLEEP ONLY Damaso Samuels Jr., MD [address] [facility] [address] [place] [address] [facility] [address] [place] [address] Referral ID Status Reason Start Date Expiration Date Visits Requested Visits Authorized [id number] Pending Review Auto-Generat ed Referral 10/01/2023 09/30/2024 1 1 Referral ID Status Reason Start Date Expiration Date V isits Requested Visits Authorized [id number] Closed Auto-Generate d Referral 09/21/2023 11/20/2023 1 1 Specialty Diagnoses / Procedures Referred By Contac t Referred To Contact MR IMAG[facility] Diagnoses Migraine with aura and without status migrainosus, not intractable FTND (full term normal delivery) Procedures MRV BRAIN WO/W IVCON MRA; HEAD W & WO CONTRAST Lashon Saba, PA-C [address] [place] [address] Mr Imaging [facility]95 Referral ID Status Reason Start Date Expiration Date V isits Requested Visits Authorized [id number] Closed Auto-Generate d Referral 09/24/2023 11/23/2023 1 1 Specialty Diagnoses / Procedures Referred By Contac t Referred To Contact [facility] IMAG[facility] Diagnoses Migraine with aura and without status migrainosus, not intractable Procedures MRI BRAIN WO/W IVCON MRI BRAIN BRAIN STEM W/O W/CONTRAST MATERIAL Lashon Saba PA-C [phone] Mr Imaging [place] [address] Referral ID Status Reason Start Date Expiration Date Visits Requested Visits Authorized [id number] Pending Review Auto-Generat ed Referral 10/09/2023 11/07/2024 1 1 Specialty Diagnoses / Procedures Referred By Contac t Referred To Contact Diagnoses ADHD (attention deficit hyperactivity disorder), inattentive type Keaton Tracy MD [id number] Referral ID Status Reason Start Date Expiration Date V isits Requested Visits Authorized [id number] Pending Review 1 1 Referral ID Status Reason Start Date Expiration Date Visits Re quested Visits Authorized [id number] Closed 1 1 Specialty Diagnoses / Procedures Referred By Contac t Referred To Contact Cardiology Diagnoses Abnormal EKG Procedures CONSULT TO [facility]ARD[facility]OLOGY OFFICE[facility] 60 MINUTES Phyllis Serra PA-C [address] [place] [address] Referral ID Status Reason Start Date Expiration Date Visits Requested Visits Authorized [id number] Authorized PCP Requested Referral 03/27/2024 03/27/2025 1 1 Specialty Diagnoses / Procedures Referred By Contac t Referred To Contact [facility] Diagnoses Chronic midline low back pain without sciatica Procedures CONSULT TO [facility] 60 MINUTES Rylan Nicholas APRN.CNP [address] [place] [address] Referral ID Status Reason Start Date Expiration Date Visits Requested Visits Authorized [id number] Authorized PCP Requested Referral 04/01/2024 04/01/2025 1 1 Specialty Diagnoses / Procedures Referred By Contac t Referred To Contact Gynecology Diagnoses Screening for cervical cancer Procedures CONSULT TO GYNECOLOGY OFFICE/OUTPATIENT [facility] MDM 60 MINUTES Keaton Tracy MD [phone] Referral ID Status Reason Start Date Expiration Date Visits Requested Visits Authorized [id number] Authorized PCP Requested Referral Auto-Generate d Referral 4 05/16/2025 1 1 Specialty Diagnoses / Procedures Referred By Contac t Referred To Contact Pain Management Diagnoses Chronic midline low back pain without sciatica Degeneration of intervertebral disc of lumbar region with discogenic back pain Procedures CONSULT TO PAIN [facility]GT OFFICE[facility] 60 MINUTES Keaton Tracy MD [address] [place] [address] Referral ID Status Reason Start Date Expiration Date Visits Requested Visits Authorized [id number] Authorized PCP Requested Referral 05/16/2025 1 1 Health Concerns Problem Noted Date OB Reminders 04/25/2022 Problem Noted Date OB Reminders 04/25/2022 Problem Noted Date OB Reminders 04/25/2022 Problem Noted Date OB Reminders 04/25/2022 Problem Noted Date OB Reminders 04/25/2022 Problem Noted Date OB Reminders 04/25/2022 Infection Onset Date Last Indicated Resolved Time COVID-19 Rule-Out 06/23/2022 06/23/2022 Problem Noted Date OB Reminders 04/25/2022 Problem Noted Date OB Reminders 04/25/2022 Problem Noted Date OB Reminders 04/25/2022 Problem Noted Date OB Reminders 04/25/2022 Problem Noted Date OB Reminders 04/25/2022 Problem Noted Date OB Reminders 04/25/2022 Problem Noted Date OB Reminders 04/25/2022 Problem Noted Date OB Reminders 04/25/2022 Problem Noted Date OB Reminders 04/25/2022 Problem Noted Date OB Reminders 04/25/2022 Problem Noted Date OB Reminders 04/25/2022 Problem Noted Date OB Reminders 04/25/2022 Problem Noted Date OB Reminders 04/25/2022 Problem Noted Date OB Reminders 04/25/2022 Problem Noted Date Diagnosed Date OB Reminders 04/25/2022 Problem Noted Date Diagnosed Date OB Reminders 04/25/2022 Problem Noted Date Diagnosed Date OB Reminders 04/25/2022 Problem Noted Date Diagnosed Date OB Reminders 04/25/2022 Problem Noted Date Diagnosed Date OB Reminders 04/25/2022 Problem Noted Date Diagnosed Date OB Reminders 04/25/2022 Problem Noted Date Diagnosed Date OB Reminders 04/25/2022 Problem Noted Date Diagnosed Date OB Reminders 04/25/2022 Problem Noted Date Diagnosed Date OB Reminders 04/25/2022 Problem Noted Date Diagnosed Date OB Reminders 04/25/2022 Problem Noted Date Diagnosed Date OB Reminders 04/25/2022 Problem Noted Date Diagnosed Date OB Reminders 04/25/2022 Problem Noted Date Diagnosed Date OB Reminders 04/25/2022 Problem Noted Date Diagnosed Date OB Reminders 04/25/2022 Problem Noted Date Diagnosed Date OB Reminders 04/25/2022 Problem Noted Date Diagnosed Date OB Reminders 04/25/2022 Problem Noted Date Diagnosed Date OB Reminders 04/25/2022 Chief Complaint and Reason for Visit Chief Complaint HEADACHE Chief Complaint BACK ABDOMINAL PAIN Chief Complaint BACK ABDOMINAL PAIN R/O RUPTURE Reason for Visit High risk multigravi da Chief Complaint BACK ABDOMINAL PAIN R/O RUPTURE VAGINAL DELIVERY Reason for Visit High risk multigravi da High risk multigravida 39 weeks gestation of Gestational diabetes, diet controlled High risk multigravida (spontaneous vaginal delivery) Chief Complaint ABDOMINAL PAIN R/O RUPTURE VAGINAL DELIVERY painful nipples Weighted Feed and Latch Assessment milk supply assessment back Reason for Visit High risk multigravi da High risk multigravida 39 weeks gestation of Gestational diabetes, diet controlled High risk multigravida (spontaneous vaginal delivery) nipple pain Care and examination of lactating mother nipple pain Care and examination of lactating mother Other disorders of Chief Complaint back lumbar spine Room2 Other intervertebral disc displacement, lumbar reg LUMBAR SPINE Leep Cone Reason for Visit Herniated lumbar int ervertebral disc DDD (degenerative disc disease), lumbar MANUEL III (cervical intraepithelial neoplasia grade III) with severe dysplasia Encounter for IUD insertion Chief Complaint back lumbar spine Room2 Other intervertebral disc displacement, lumbar reg LUMBAR SPINE Leep Cone chest pain Chief Complaint UE NUMBNESS/CHEST PA IN Additional Source Comments INFORMATION SOURCE (unrecogn ized section and content) DATE CREATED AUTHOR 06/01/2020 [facility] DATE CREATED AUTHOR AUTHOR'S ORGANIZ ATION 12/21/2020 [facility] DATE CREATED AUTHOR AUTHOR'S ORGANIZ ATION 06/24/2023 [facility] [place] DATE CREATED AUTHOR AUTHOR'S ORGANIZ ATION 10/01/2023 [facility] DATE CREATED AUTHOR AUTHOR'S ORGANIZ ATION 03/10/2024 [facility] DATE CREATED AUTHOR AUTHOR'S ORGANIZ ATION 03/27/2024 [facility] ([place]) DATE CREATED AUTHOR AUTHOR'S ORGANIZ ATION 03/31/2024 [facility] DATE CREATED AUTHOR AUTHOR'S ORGANIZ ATION 04/15/2024 [facility] DATE CREATED AUTHOR AUTHOR'S ORGANIZ ATION 04/23/2024 [facility] DATE CREATED AUTHOR AUTHOR'S ORGANIZ ATION 08/21/2024 [facility] DATE CREATED AUTHOR AUTHOR'S ORGANIZ ATION 04/25/2025 [facility] DATE CREATED AUTHOR AUTHOR'S ORGANIZ ATION 04/27/2025 [facility] DATE CREATED AUTHOR AUTHOR'S ORGANIZ ATION 04/27/2025 [facility] DATE CREATED AUTHOR AUTHOR'S ORGANIZ ATION 05/07/2025 [facility] <item><item> Privacy Markings (unrecogniz ed section and content) Section Author: Justine Abel PROHIBITION ON REDISCLOSURE OF CONFIDENTIAL INFORMATION This notice accompanies a disclosure of information concerning a client made to you with the consent of such client. Section Author: Justine Abel PROHIBITION ON REDISCLOSURE OF CONFIDENTIAL INFORMATION This notice accompanies a disclosure of information concerning a client made to you with the consent of such client. Source Comments (unrecognize d section and content) In the event this informatio n is protected by the Federal Confidentiality of Alcohol and Drug Abuse Patient Records regulations: The Federal rules restrict any use of the information to criminally investigate or prosecute any alcohol or drug abuse patient.[facility] the event this information is protected by the Federal Confidentiality of Alcohol and Drug Abuse Patient Records regulations: The Federal rules restrict any use of the information to criminally investigate or prosecute any alcohol or drug abuse patient.[facility]In the event this information is protected by the Federal Confidentiality of Alcohol and Drug Abuse Patient Records regulations: The Federal rules restrict any use of the information to criminally investigate or prosecute any alcohol or drug abuse patient.[facility]In the event this information is protected by the Federal Confidentiality of Alcohol and Drug Abuse Patient Records regulations: The Federal rules restrict any use of the information to criminally investigate or prosecute any alcohol or drug abuse patient.[facility]In the event this information is protected by the Federal Confidentiality of Alcohol and Drug Abuse Patient Records regulations: The Federal rules restrict any use of the information to criminally investigate or prosecute any alcohol or drug abuse patient.[facility]In the event this information is protected by the Federal Confidentiality of Alcohol and Drug Abuse Patient Records regulations: The Federal rules restrict any use of the information to criminally investigate or prosecute any alcohol or drug abuse patient.[facility]In the event this information is protected by the Federal Confidentiality of Alcohol and Drug Abuse Patient Records regulations: The Federal rules restrict any use of the information to criminally investigate or prosecute any alcohol or drug abuse patient.[facility]In the event this information is protected by the Federal Confidentiality of Alcohol and Drug Abuse Patient Records regulations: The Federal rules restrict any use of the information to criminally investigate or prosecute any alcohol or drug abuse patient.[facility]In the event this information is protected by the Federal Confidentiality of Alcohol and Drug Abuse Patient Records regulations: The Federal rules restrict any use of the information to criminally investigate or prosecute any alcohol or drug abuse patient.[facility] HospitalIn the event this information is protected by the Federal Confidentiality of Alcohol and Drug Abuse Patient Records regulations: The Federal rules restrict any use of the information to criminally investigate or prosecute any alcohol or drug abuse patient.[facility]In the event this information is protected by the Federal Confidentiality of Alcohol and Drug Abuse Patient Records regulations: The Federal rules restrict any use of the information to criminally investigate or prosecute any alcohol or drug abuse patient.[facility] HospitalIn the event this information is protected by the Federal Confidentiality of Alcohol and Drug Abuse Patient Records regulations: The Federal rules restrict any use of the information to criminally investigate or prosecute any alcohol or drug abuse patient.[facility]In the event this information is protected by the Federal Confidentiality of Alcohol and Drug Abuse Patient Records regulations: The Federal rules restrict any use of the information to criminally investigate or prosecute any alcohol or drug abuse patient.[facility] HospitalIn the event this information is protected by the Federal Confidentiality of Alcohol and Drug Abuse Patient Records regulations: The Federal rules restrict any use of the information to criminally investigate or prosecute any alcohol or drug abuse patient.[facility] HospitalIn the event this information is protected by the Federal Confidentiality of Alcohol and Drug Abuse Patient Records regulations: The Federal rules restrict any use of the information to criminally investigate or prosecute any alcohol or drug abuse patient.[facility] HospitalIn the event this information is protected by the Federal Confidentiality of Alcohol and Drug Abuse Patient Records regulations: The Federal rules restrict any use of the information to criminally investigate or prosecute any alcohol or drug abuse patient.[facility] HospitalIn the event this information is protected by the Federal Confidentiality of Alcohol and Drug Abuse Patient Records regulations: The Federal rules restrict any use of the information to criminally investigate or prosecute any alcohol or drug abuse patient.[facility] HospitalIn the event this information is protected by the Federal Confidentiality of Alcohol and Drug Abuse Patient Records regulations: The Federal rules restrict any use of the information to criminally investigate or prosecute any alcohol or drug abuse patient.[facility] HospitalIn the event this information is protected by the Federal Confidentiality of Alcohol and Drug Abuse Patient Records regulations: The Federal rules restrict any use of the information to criminally investigate or prosecute any alcohol or drug abuse patient.[facility] HospitalIn the event this information is protected by the Federal Confidentiality of Alcohol and Drug Abuse Patient Records regulations: The Federal rules restrict any use of the information to criminally investigate or prosecute any alcohol or drug abuse patient.[facility] HospitalIn the event this information is protected by the Federal Confidentiality of Alcohol and Drug Abuse Patient Records regulations: The Federal rules restrict any use of the information to criminally investigate or prosecute any alcohol or drug abuse patient.[facility] HospitalIn the event this information is protected by the Federal Confidentiality of Alcohol and Drug Abuse Patient Records regulations: The Federal rules restrict any use of the information to criminally investigate or prosecute any alcohol or drug abuse patient.[facility] HospitalIn the event this information is protected by the Federal Confidentiality of Alcohol and Drug Abuse Patient Records regulations: The Federal rules restrict any use of the information to criminally investigate or prosecute any alcohol or drug abuse patient.[facility] HospitalIn the event this information is protected by the Federal Confidentiality of Alcohol and Drug Abuse Patient Records regulations: The Federal rules restrict any use of the information to criminally investigate or prosecute any alcohol or drug abuse patient.[facility] HospitalIn the event this information is protected by the Federal Confidentiality of Alcohol and Drug Abuse Patient Records regulations: The Federal rules restrict any use of the information to criminally investigate or prosecute any alcohol or drug abuse patient.[facility] HospitalIn the event this information is protected by the Federal Confidentiality of Alcohol and Drug Abuse Patient Records regulations: The Federal rules restrict any use of the information to criminally investigate or prosecute any alcohol or drug abuse patient.[facility] HospitalIn the event this information is protected by the Federal Confidentiality of Alcohol and Drug Abuse Patient Records regulations: The Federal rules restrict any use of the information to criminally investigate or prosecute any alcohol or drug abuse patient.[facility] HospitalIn the event this information is protected by the Federal Confidentiality of Alcohol and Drug Abuse Patient Records regulations: The Federal rules restrict any use of the information to criminally investigate or prosecute any alcohol or drug abuse patient.[facility] HospitalIn the event this information is protected by the Federal Confidentiality of Alcohol and Drug Abuse Patient Records regulations: The Federal rules restrict any use of the information to criminally investigate or prosecute any alcohol or drug abuse patient.[facility] HospitalIn the event this information is protected by the Federal Confidentiality of Alcohol and Drug Abuse Patient Records regulations: The Federal rules restrict any use of the information to criminally investigate or prosecute any alcohol or drug abuse patient.[facility] HospitalIn the event this information is protected by the Federal Confidentiality of Alcohol and Drug Abuse Patient Records regulations: The Federal rules restrict any use of the information to criminally investigate or prosecute any alcohol or drug abuse patient.[facility] HospitalIn the event this information is protected by the Federal Confidentiality of Alcohol and Drug Abuse Patient Records regulations: The Federal rules restrict any use of the information to criminally investigate or prosecute any alcohol or drug abuse patient.[facility] HospitalIn the event this information is protected by the Federal Confidentiality of Alcohol and Drug Abuse Patient Records regulations: The Federal rules restrict any use of the information to criminally investigate or prosecute any alcohol or drug abuse patient.[facility] HospitalIn the event this information is protected by the Federal Confidentiality of Alcohol and Drug Abuse Patient Records regulations: The Federal rules restrict any use of the information to criminally investigate or prosecute any alcohol or drug abuse patient.[facility] HospitalIn the event this information is protected by the Federal Confidentiality of Alcohol and Drug Abuse Patient Records regulations: The Federal rules restrict any use of the information to criminally investigate or prosecute any alcohol or drug abuse patient.[facility] HospitalIn the event this information is protected by the Federal Confidentiality of Alcohol and Drug Abuse Patient Records regulations: The Federal rules restrict any use of the information to criminally investigate or prosecute any alcohol or drug abuse patient.[facility] HospitalIn the event this information is protected by the Federal Confidentiality of Alcohol and Drug Abuse Patient Records regulations: The Federal rules restrict any use of the information to criminally investigate or prosecute any alcohol or drug abuse patient.[facility] HospitalIn the event this information is protected by the Federal Confidentiality of Alcohol and Drug Abuse Patient Records regulations: The Federal rules restrict any use of the information to criminally investigate or prosecute any alcohol or drug abuse patient.[facility] HospitalIn the event this information is protected by the Federal Confidentiality of Alcohol and Drug Abuse Patient Records regulations: The Federal rules restrict any use of the information to criminally investigate or prosecute any alcohol or drug abuse patient.[facility] HospitalIn the event this information is protected by the Federal Confidentiality of Alcohol and Drug Abuse Patient Records regulations: The Federal rules restrict any use of the information to criminally investigate or prosecute any alcohol or drug abuse patient.[facility] HospitalIn the event this information is protected by the Federal Confidentiality of Alcohol and Drug Abuse Patient Records regulations: The Federal rules restrict any use of the information to criminally investigate or prosecute any alcohol or drug abuse patient.[facility] HospitalIn the event this information is protected by the Federal Confidentiality of Alcohol and Drug Abuse Patient Records regulations: The Federal rules restrict any use of the information to criminally investigate or prosecute any alcohol or drug abuse patient.[facility] HospitalIn the event this information is protected by the Federal Confidentiality of Alcohol and Drug Abuse Patient Records regulations: The Federal rules restrict any use of the information to criminally investigate or prosecute any alcohol or drug abuse patient.[facility] HospitalIn the event this information is protected by the Federal Confidentiality of Alcohol and Drug Abuse Patient Records regulations: The Federal rules restrict any use of the information to criminally investigate or prosecute any alcohol or drug abuse patient.[facility] HospitalIn the event this information is protected by the Federal Confidentiality of Alcohol and Drug Abuse Patient Records regulations: The Federal rules restrict any use of the information to criminally investigate or prosecute any alcohol or drug abuse patient.[facility] HospitalIn the event this information is protected by the Federal Confidentiality of Alcohol and Drug Abuse Patient Records regulations: The Federal rules restrict any use of the information to criminally investigate or prosecute any alcohol or drug abuse patient.[facility] HospitalIn the event this information is protected by the Federal Confidentiality of Alcohol and Drug Abuse Patient Records regulations: The Federal rules restrict any use of the information to criminally investigate or prosecute any alcohol or drug abuse patient.[facility] HospitalIn the event this information is protected by the Federal Confidentiality of Alcohol and Drug Abuse Patient Records regulations: The Federal rules restrict any use of the information to criminally investigate or prosecute any alcohol or drug abuse patient.[facility] HospitalIn the event this information is protected by the Federal Confidentiality of Alcohol and Drug Abuse Patient Records regulations: The Federal rules restrict any use of the information to criminally investigate or prosecute any alcohol or drug abuse patient.[facility] HospitalIn the event this information is protected by the Federal Confidentiality of Alcohol and Drug Abuse Patient Records regulations: The Federal rules restrict any use of the information to criminally investigate or prosecute any alcohol or drug abuse patient.[facility] HospitalIn the event this information is protected by the Federal Confidentiality of Alcohol and Drug Abuse Patient Records regulations: The Federal rules restrict any use of the information to criminally investigate or prosecute any alcohol or drug abuse patient.[facility] HospitalIn the event this information is protected by the Federal Confidentiality of Alcohol and Drug Abuse Patient Records regulations: The Federal rules restrict any use of the information to criminally investigate or prosecute any alcohol or drug abuse patient.[facility] HospitalIn the event this information is protected by the Federal Confidentiality of Alcohol and Drug Abuse Patient Records regulations: The Federal rules restrict any use of the information to criminally investigate or prosecute any alcohol or drug abuse patient.[facility] HospitalIn the event this information is protected by the Federal Confidentiality of Alcohol and Drug Abuse Patient Records regulations: The Federal rules restrict any use of the information to criminally investigate or prosecute any alcohol or drug abuse patient.[facility] HospitalIn the event this information is protected by the Federal Confidentiality of Alcohol and Drug Abuse Patient Records regulations: The Federal rules restrict any use of the information to criminally investigate or prosecute any alcohol or drug abuse patient.[facility] HospitalIn the event this information is protected by the Federal Confidentiality of Alcohol and Drug Abuse Patient Records regulations: The Federal rules restrict any use of the information to criminally investigate or prosecute any alcohol or drug abuse patient.[facility] HospitalIn the event this information is protected by the Federal Confidentiality of Alcohol and Drug Abuse Patient Records regulations: The Federal rules restrict any use of the information to criminally investigate or prosecute any alcohol or drug abuse patient.[facility] HospitalIn the event this information is protected by the Federal Confidentiality of Alcohol and Drug Abuse Patient Records regulations: The Federal rules restrict any use of the information to criminally investigate or prosecute any alcohol or drug abuse patient.[facility] HospitalIn the event this information is protected by the Federal Confidentiality of Alcohol and Drug Abuse Patient Records regulations: The Federal rules restrict any use of the information to criminally investigate or prosecute any alcohol or drug abuse patient.[facility] HospitalIn the event this information is protected by the Federal Confidentiality of Alcohol and Drug Abuse Patient Records regulations: The Federal rules restrict any use of the information to criminally investigate or prosecute any alcohol or drug abuse patient.[facility] HospitalIn the event this information is protected by the Federal Confidentiality of Alcohol and Drug Abuse Patient Records regulations: The Federal rules restrict any use of the information to criminally investigate or prosecute any alcohol or drug abuse patient.[facility] HospitalIn the event this information is protected by the Federal Confidentiality of Alcohol and Drug Abuse Patient Records regulations: The Federal rules restrict any use of the information to criminally investigate or prosecute any alcohol or drug abuse patient.[facility] HospitalIn the event this information is protected by the Federal Confidentiality of Alcohol and Drug Abuse Patient Records regulations: The Federal rules restrict any use of the information to criminally investigate or prosecute any alcohol or drug abuse patient.[facility] HospitalIn the event this information is protected by the Federal Confidentiality of Alcohol and Drug Abuse Patient Records regulations: The Federal rules restrict any use of the information to criminally investigate or prosecute any alcohol or drug abuse patient.[facility] HospitalIn the event this information is protected by the Federal Confidentiality of Alcohol and Drug Abuse Patient Records regulations: The Federal rules restrict any use of the information to criminally investigate or prosecute any alcohol or drug abuse patient.[facility] HospitalIn the event this information is protected by the Federal Confidentiality of Alcohol and Drug Abuse Patient Records regulations: The Federal rules restrict any use of the information to criminally investigate or prosecute any alcohol or drug abuse patient.[facility]In the event this information is protected by the Federal Confidentiality of Alcohol and Drug Abuse Patient Records regulations: The Federal rules restrict any use of the information to criminally investigate or prosecute any alcohol or drug abuse patient.[facility]In the event this information is protected by the Federal Confidentiality of Alcohol and Drug Abuse Patient Records regulations: The Federal rules restrict any use of the information to criminally investigate or prosecute any alcohol or drug abuse patient.[facility]In the event this information is protected by the Federal Confidentiality of Alcohol and Drug Abuse Patient Records regulations: The Federal rules restrict any use of the information to criminally investigate or prosecute any alcohol or drug abuse patient.[facility] HospitalIn the event this information is protected by the Federal Confidentiality of Alcohol and Drug Abuse Patient Records regulations: The Federal rules restrict any use of the information to criminally investigate or prosecute any alcohol or drug abuse patient.[facility] HospitalIn the event this information is protected by the Federal Confidentiality of Alcohol and Drug Abuse Patient Records regulations: The Federal rules restrict any use of the information to criminally investigate or prosecute any alcohol or drug abuse patient.[facility]In the event this information is protected by the Federal Confidentiality of Alcohol and Drug Abuse Patient Records regulations: The Federal rules restrict any use of the information to criminally investigate or prosecute any alcohol or drug abuse patient.[facility] HospitalIn the event this information is protected by the Federal Confidentiality of Alcohol and Drug Abuse Patient Records regulations: The Federal rules restrict any use of the information to criminally investigate or prosecute any alcohol or drug abuse patient.[facility]In the event this information is protected by the Federal Confidentiality of Alcohol and Drug Abuse Patient Records regulations: The Federal rules restrict any use of the information to criminally investigate or prosecute any alcohol or drug abuse patient.[facility] HospitalIn the event this information is protected by the Federal Confidentiality of Alcohol and Drug Abuse Patient Records regulations: The Federal rules restrict any use of the information to criminally investigate or prosecute any alcohol or drug abuse patient.[facility] HospitalIn the event this information is protected by the Federal Confidentiality of Alcohol and Drug Abuse Patient Records regulations: The Federal rules restrict any use of the information to criminally investigate or prosecute any alcohol or drug abuse patient.[facility] HospitalIn the event this information is protected by the Federal Confidentiality of Alcohol and Drug Abuse Patient Records regulations: The Federal rules restrict any use of the information to criminally investigate or prosecute any alcohol or drug abuse patient.[facility]In the event this information is protected by the Federal Confidentiality of Alcohol and Drug Abuse Patient Records regulations: The Federal rules restrict any use of the information to criminally investigate or prosecute any alcohol or drug abuse patient.[facility] HospitalIn the event this information is protected by the Federal Confidentiality of Alcohol and Drug Abuse Patient Records regulations: The Federal rules restrict any use of the information to criminally investigate or prosecute any alcohol or drug abuse patient.[facility] HospitalIn the event this information is protected by the Federal Confidentiality of Alcohol and Drug Abuse Patient Records regulations: The Federal rules restrict any use of the information to criminally investigate or prosecute any alcohol or drug abuse patient.[facility] HospitalIn the event this information is protected by the Federal Confidentiality of Alcohol and Drug Abuse Patient Records regulations: The Federal rules restrict any use of the information to criminally investigate or prosecute any alcohol or drug abuse patient.[facility] HospitalIn the event this information is protected by the Federal Confidentiality of Alcohol and Drug Abuse Patient Records regulations: The Federal rules restrict any use of the information to criminally investigate or prosecute any alcohol or drug abuse patient.[facility] HospitalIn the event this information is protected by the Federal Confidentiality of Alcohol and Drug Abuse Patient Records regulations: The Federal rules restrict any use of the information to criminally investigate or prosecute any alcohol or drug abuse patient.[facility] HospitalIn the event this information is protected by the Federal Confidentiality of Alcohol and Drug Abuse Patient Records regulations: The Federal rules restrict any use of the information to criminally investigate or prosecute any alcohol or drug abuse patient.[facility] HospitalIn the event this information is protected by the Federal Confidentiality of Alcohol and Drug Abuse Patient Records regulations: The Federal rules restrict any use of the information to criminally investigate or prosecute any alcohol or drug abuse patient.[facility] HospitalIn the event this information is protected by the Federal Confidentiality of Alcohol and Drug Abuse Patient Records regulations: The Federal rules restrict any use of the information to criminally investigate or prosecute any alcohol or drug abuse patient.[facility] HospitalIn the event this information is protected by the Federal Confidentiality of Alcohol and Drug Abuse Patient Records regulations: The Federal rules restrict any use of the information to criminally investigate or prosecute any alcohol or drug abuse patient.[facility] HospitalIn the event this information is protected by the Federal Confidentiality of Alcohol and Drug Abuse Patient Records regulations: The Federal rules restrict any use of the information to criminally investigate or prosecute any alcohol or drug abuse patient.[facility] HospitalIn the event this information is protected by the Federal Confidentiality of Alcohol and Drug Abuse Patient Records regulations: The Federal rules restrict any use of the information to criminally investigate or prosecute any alcohol or drug abuse patient.[facility] HospitalIn the event this information is protected by the Federal Confidentiality of Alcohol and Drug Abuse Patient Records regulations: The Federal rules restrict any use of the information to criminally investigate or prosecute any alcohol or drug abuse patient.[facility] HospitalIn the event this information is protected by the Federal Confidentiality of Alcohol and Drug Abuse Patient Records regulations: The Federal rules restrict any use of the information to criminally investigate or prosecute any alcohol or drug abuse patient.[facility] HospitalIn the event this information is protected by the Federal Confidentiality of Alcohol and Drug Abuse Patient Records regulations: The Federal rules restrict any use of the information to criminally investigate or prosecute any alcohol or drug abuse patient.[facility] HospitalIn the event this information is protected by the Federal Confidentiality of Alcohol and Drug Abuse Patient Records regulations: The Federal rules restrict any use of the information to criminally investigate or prosecute any alcohol or drug abuse patient.[facility] HospitalIn the event this information is protected by the Federal Confidentiality of Alcohol and Drug Abuse Patient Records regulations: The Federal rules restrict any use of the information to criminally investigate or prosecute any alcohol or drug abuse patient.[facility] HospitalIn the event this information is protected by the Federal Confidentiality of Alcohol and Drug Abuse Patient Records regulations: The Federal rules restrict any use of the information to criminally investigate or prosecute any alcohol or drug abuse patient.[facility] HospitalIn the event this information is protected by the Federal Confidentiality of Alcohol and Drug Abuse Patient Records regulations: The Federal rules restrict any use of the information to criminally investigate or prosecute any alcohol or drug abuse patient.[facility] HospitalIn the event this information is protected by the Federal Confidentiality of Alcohol and Drug Abuse Patient Records regulations: The Federal rules restrict any use of the information to criminally investigate or prosecute any alcohol or drug abuse patient.[facility] HospitalIn the event this information is protected by the Federal Confidentiality of Alcohol and Drug Abuse Patient Records regulations: The Federal rules restrict any use of the information to criminally investigate or prosecute any alcohol or drug abuse patient.[facility] HospitalIn the event this information is protected by the Federal Confidentiality of Alcohol and Drug Abuse Patient Records regulations: The Federal rules restrict any use of the information to criminally investigate or prosecute any alcohol or drug abuse patient.[facility] HospitalIn the event this information is protected by the Federal Confidentiality of Alcohol and Drug Abuse Patient Records regulations: The Federal rules restrict any use of the information to criminally investigate or prosecute any alcohol or drug abuse patient.[facility] HospitalIn the event this information is protected by the Federal Confidentiality of Alcohol and Drug Abuse Patient Records regulations: The Federal rules restrict any use of the information to criminally investigate or prosecute any alcohol or drug abuse patient.[facility] HospitalIn the event this information is protected by the Federal Confidentiality of Alcohol and Drug Abuse Patient Records regulations: The Federal rules restrict any use of the information to criminally investigate or prosecute any alcohol or drug abuse patient.[facility] HospitalIn the event this information is protected by the Federal Confidentiality of Alcohol and Drug Abuse Patient Records regulations: The Federal rules restrict any use of the information to criminally investigate or prosecute any alcohol or drug abuse patient.[facility] HospitalIn the event this information is protected by the Federal Confidentiality of Alcohol and Drug Abuse Patient Records regulations: The Federal rules restrict any use of the information to criminally investigate or prosecute any alcohol or drug abuse patient.[facility] HospitalIn the event this information is protected by the Federal Confidentiality of Alcohol and Drug Abuse Patient Records regulations: The Federal rules restrict any use of the information to criminally investigate or prosecute any alcohol or drug abuse patient.[facility] HospitalIn the event this information is protected by the Federal Confidentiality of Alcohol and Drug Abuse Patient Records regulations: The Federal rules restrict any use of the information to criminally investigate or prosecute any alcohol or drug abuse patient.[facility] HospitalIn the event this information is protected by the Federal Confidentiality of Alcohol and Drug Abuse Patient Records regulations: The Federal rules restrict any use of the information to criminally investigate or prosecute any alcohol or drug abuse patient.[facility] HospitalIn the event this information is protected by the Federal Confidentiality of Alcohol and Drug Abuse Patient Records regulations: The Federal rules restrict any use of the information to criminally investigate or prosecute any alcohol or drug abuse patient.[facility] HospitalIn the event this information is protected by the Federal Confidentiality of Alcohol and Drug Abuse Patient Records regulations: The Federal rules restrict any use of the information to criminally investigate or prosecute any alcohol or drug abuse patient.[facility] HospitalIn the event this information is protected by the Federal Confidentiality of Alcohol and Drug Abuse Patient Records regulations: The Federal rules restrict any use of the information to criminally investigate or prosecute any alcohol or drug abuse patient.[facility] HospitalIn the event this information is protected by the Federal Confidentiality of Alcohol and Drug Abuse Patient Records regulations: The Federal rules restrict any use of the information to criminally investigate or prosecute any alcohol or drug abuse patient.[facility] HospitalIn the event this information is protected by the Federal Confidentiality of Alcohol and Drug Abuse Patient Records regulations: The Federal rules restrict any use of the information to criminally investigate or prosecute any alcohol or drug abuse patient.[facility] HospitalIn the event this information is protected by the Federal Confidentiality of Alcohol and Drug Abuse Patient Records regulations: The Federal rules restrict any use of the information to criminally investigate or prosecute any alcohol or drug abuse patient.[facility] HospitalIn the event this information is protected by the Federal Confidentiality of Alcohol and Drug Abuse Patient Records regulations: The Federal rules restrict any use of the information to criminally investigate or prosecute any alcohol or drug abuse patient.[facility] HospitalIn the event this information is protected by the Federal Confidentiality of Alcohol and Drug Abuse Patient Records regulations: The Federal rules restrict any use of the information to criminally investigate or prosecute any alcohol or drug abuse patient.[facility] HospitalIn the event this information is protected by the Federal Confidentiality of Alcohol and Drug Abuse Patient Records regulations: The Federal rules restrict any use of the information to criminally investigate or prosecute any alcohol or drug abuse patient.[facility] HospitalIn the event this information is protected by the Federal Confidentiality of Alcohol and Drug Abuse Patient Records regulations: The Federal rules restrict any use of the information to criminally investigate or prosecute any alcohol or drug abuse patient.[facility] HospitalIn the event this information is protected by the Federal Confidentiality of Alcohol and Drug Abuse Patient Records regulations: The Federal rules restrict any use of the information to criminally investigate or prosecute any alcohol or drug abuse patient.[facility] HospitalIn the event this information is protected by the Federal Confidentiality of Alcohol and Drug Abuse Patient Records regulations: The Federal rules restrict any use of the information to criminally investigate or prosecute any alcohol or drug abuse patient.[facility] HospitalIn the event this information is protected by the Federal Confidentiality of Alcohol and Drug Abuse Patient Records regulations: The Federal rules restrict any use of the information to criminally investigate or prosecute any alcohol or drug abuse patient.[facility] HospitalIn the event this information is protected by the Federal Confidentiality of Alcohol and Drug Abuse Patient Records regulations: The Federal rules restrict any use of the information to criminally investigate or prosecute any alcohol or drug abuse patient.[facility] HospitalIn the event this information is protected by the Federal Confidentiality of Alcohol and Drug Abuse Patient Records regulations: The Federal rules restrict any use of the information to criminally investigate or prosecute any alcohol or drug abuse patient.[facility] HospitalIn the event this information is protected by the Federal Confidentiality of Alcohol and Drug Abuse Patient Records regulations: The Federal rules restrict any use of the information to criminally investigate or prosecute any alcohol or drug abuse patient.[facility] HospitalIn the event this information is protected by the Federal Confidentiality of Alcohol and Drug Abuse Patient Records regulations: The Federal rules restrict any use of the information to criminally investigate or prosecute any alcohol or drug abuse patient.[facility] HospitalIn the event this information is protected by the Federal Confidentiality of Alcohol and Drug Abuse Patient Records regulations: The Federal rules restrict any use of the information to criminally investigate or prosecute any alcohol or drug abuse patient.[facility] HospitalIn the event this information is protected by the Federal Confidentiality of Alcohol and Drug Abuse Patient Records regulations: The Federal rules restrict any use of the information to criminally investigate or prosecute any alcohol or drug abuse patient.[facility] HospitalIn the event this information is protected by the Federal Confidentiality of Alcohol and Drug Abuse Patient Records regulations: The Federal rules restrict any use of the information to criminally investigate or prosecute any alcohol or drug abuse patient.[facility] HospitalIn the event this information is protected by the Federal Confidentiality of Alcohol and Drug Abuse Patient Records regulations: The Federal rules restrict any use of the information to criminally investigate or prosecute any alcohol or drug abuse patient.[facility] HospitalIn the event this information is protected by the Federal Confidentiality of Alcohol and Drug Abuse Patient Records regulations: The Federal rules restrict any use of the information to criminally investigate or prosecute any alcohol or drug abuse patient.[facility] HospitalIn the event this information is protected by the Federal Confidentiality of Alcohol and Drug Abuse Patient Records regulations: The Federal rules restrict any use of the information to criminally investigate or prosecute any alcohol or drug abuse patient.[facility] HospitalIn the event this information is protected by the Federal Confidentiality of Alcohol and Drug Abuse Patient Records regulations: The Federal rules restrict any use of the information to criminally investigate or prosecute any alcohol or drug abuse patient.[facility] HospitalIn the event this information is protected by the Federal Confidentiality of Alcohol and Drug Abuse Patient Records regulations: The Federal rules restrict any use of the information to criminally investigate or prosecute any alcohol or drug abuse patient.[facility] HospitalIn the event this information is protected by the Federal Confidentiality of Alcohol and Drug Abuse Patient Records regulations: The Federal rules restrict any use of the information to criminally investigate or prosecute any alcohol or drug abuse patient.[facility] HospitalIn the event this information is protected by the Federal Confidentiality of Alcohol and Drug Abuse Patient Records regulations: The Federal rules restrict any use of the information to criminally investigate or prosecute any alcohol or drug abuse patient.[facility] HospitalIn the event this information is protected by the Federal Confidentiality of Alcohol and Drug Abuse Patient Records regulations: The Federal rules restrict any use of the information to criminally investigate or prosecute any alcohol or drug abuse patient.[facility]In the event this information is protected by the Federal Confidentiality of Alcohol and Drug Abuse Patient Records regulations: The Federal rules restrict any use of the information to criminally investigate or prosecute any alcohol or drug abuse patient.[facility]In the event this information is protected by the Federal Confidentiality of Alcohol and Drug Abuse Patient Records regulations: The Federal rules restrict any use of the information to criminally investigate or prosecute any alcohol or drug abuse patient.[facility]In the event this information is protected by the Federal Confidentiality of Alcohol and Drug Abuse Patient Records regulations: The Federal rules restrict any use of the information to criminally investigate or prosecute any alcohol or drug abuse patient.[facility] HospitalIn the event this information is protected by the Federal Confidentiality of Alcohol and Drug Abuse Patient Records regulations: The Federal rules restrict any use of the information to criminally investigate or prosecute any alcohol or drug abuse patient.[facility]In the event this information is protected by the Federal Confidentiality of Alcohol and Drug Abuse Patient Records regulations: The Federal rules restrict any use of the information to criminally investigate or prosecute any alcohol or drug abuse patient.[facility]In the event this information is protected by the Federal Confidentiality of Alcohol and Drug Abuse Patient Records regulations: The Federal rules restrict any use of the information to criminally investigate or prosecute any alcohol or drug abuse patient.[facility]In the event this information is protected by the Federal Confidentiality of Alcohol and Drug Abuse Patient Records regulations: The Federal rules restrict any use of the information to criminally investigate or prosecute any alcohol or drug abuse patient.[facility]In the event this information is protected by the Federal Confidentiality of Alcohol and Drug Abuse Patient Records regulations: The Federal rules restrict any use of the information to criminally investigate or prosecute any alcohol or drug abuse patient.[facility]In the event this information is protected by the Federal Confidentiality of Alcohol and Drug Abuse Patient Records regulations: The Federal rules restrict any use of the information to criminally investigate or prosecute any alcohol or drug abuse patient.[facility]In the event this information is protected by the Federal Confidentiality of Alcohol and Drug Abuse Patient Records regulations: The Federal rules restrict any use of the information to criminally investigate or prosecute any alcohol or drug abuse patient.[facility]In the event this information is protected by the Federal Confidentiality of Alcohol and Drug Abuse Patient Records regulations: The Federal rules restrict any use of the information to criminally investigate or prosecute any alcohol or drug abuse patient.[facility]In the event this information is protected by the Federal Confidentiality of Alcohol and Drug Abuse Patient Records regulations: The Federal rules restrict any use of the information to criminally investigate or prosecute any alcohol or drug abuse patient.[facility]In the event this information is protected by the Federal Confidentiality of Alcohol and Drug Abuse Patient Records regulations: The Federal rules restrict any use of the information to criminally investigate or prosecute any alcohol or drug abuse patient.[facility]In the event this information is protected by the Federal Confidentiality of Alcohol and Drug Abuse Patient Records regulations: The Federal rules restrict any use of the information to criminally investigate or prosecute any alcohol or drug abuse patient.[facility] HospitalIn the event this information is protected by the Federal Confidentiality of Alcohol and Drug Abuse Patient Records regulations: The Federal rules restrict any use of the information to criminally investigate or prosecute any alcohol or drug abuse patient.[facility] HospitalIn the event this information is protected by the Federal Confidentiality of Alcohol and Drug Abuse Patient Records regulations: The Federal rules restrict any use of the information to criminally investigate or prosecute any alcohol or drug abuse patient.[facility] the event this information is protected by the Federal Confidentiality of Alcohol and Drug Abuse Patient Records regulations: The Federal rules restrict any use of the information to criminally investigate or prosecute any alcohol or drug abuse patient.[facility] HospitalIn the event this information is protected by the Federal Confidentiality of Alcohol and Drug Abuse Patient Records regulations: The Federal rules restrict any use of the information to criminally investigate or prosecute any alcohol or drug abuse patient.[facility] HospitalIn the event this information is protected by the Federal Confidentiality of Alcohol and Drug Abuse Patient Records regulations: The Federal rules restrict any use of the information to criminally investigate or prosecute any alcohol or drug abuse patient.[facility] HospitalIn the event this information is protected by the Federal Confidentiality of Alcohol and Drug Abuse Patient Records regulations: The Federal rules restrict any use of the information to criminally investigate or prosecute any alcohol or drug abuse patient.[facility] HospitalIn the event this information is protected by the Federal Confidentiality of Alcohol and Drug Abuse Patient Records regulations: The Federal rules restrict any use of the information to criminally investigate or prosecute any alcohol or drug abuse patient.[facility] HospitalIn the event this information is protected by the Federal Confidentiality of Alcohol and Drug Abuse Patient Records regulations: The Federal rules restrict any use of the information to criminally investigate or prosecute any alcohol or drug abuse patient.[facility]In the event this information is protected by the Federal Confidentiality of Alcohol and Drug Abuse Patient Records regulations: The Federal rules restrict any use of the information to criminally investigate or prosecute any alcohol or drug abuse patient.[facility]In the event this information is protected by the Federal Confidentiality of Alcohol and Drug Abuse Patient Records regulations: The Federal rules restrict any use of the information to criminally investigate or prosecute any alcohol or drug abuse patient.[facility] HospitalIn the event this information is protected by the Federal Confidentiality of Alcohol and Drug Abuse Patient Records regulations: The Federal rules restrict any use of the information to criminally investigate or prosecute any alcohol or drug abuse patient.[facility] HospitalIn the event this information is protected by the Federal Confidentiality of Alcohol and Drug Abuse Patient Records regulations: The Federal rules restrict any use of the information to criminally investigate or prosecute any alcohol or drug abuse patient.[facility] HospitalIn the event this information is protected by the Federal Confidentiality of Alcohol and Drug Abuse Patient Records regulations: The Federal rules restrict any use of the information to criminally investigate or prosecute any alcohol or drug abuse patient.[facility] HospitalIn the event this information is protected by the Federal Confidentiality of Alcohol and Drug Abuse Patient Records regulations: The Federal rules restrict any use of the information to criminally investigate or prosecute any alcohol or drug abuse patient.[facility] HospitalIn the event this information is protected by the Federal Confidentiality of Alcohol and Drug Abuse Patient Records regulations: The Federal rules restrict any use of the information to criminally investigate or prosecute any alcohol or drug abuse patient.[facility] HospitalIn the event this information is protected by the Federal Confidentiality of Alcohol and Drug Abuse Patient Records regulations: The Federal rules restrict any use of the information to criminally investigate or prosecute any alcohol or drug abuse patient.[facility] HospitalIn the event this information is protected by the Federal Confidentiality of Alcohol and Drug Abuse Patient Records regulations: The Federal rules restrict any use of the information to criminally investigate or prosecute any alcohol or drug abuse patient.[facility] HospitalIn the event this information is protected by the Federal Confidentiality of Alcohol and Drug Abuse Patient Records regulations: The Federal rules restrict any use of the information to criminally investigate or prosecute any alcohol or drug abuse patient.[facility] HospitalIn the event this information is protected by the Federal Confidentiality of Alcohol and Drug Abuse Patient Records regulations: The Federal rules restrict any use of the information to criminally investigate or prosecute any alcohol or drug abuse patient.[facility] HospitalIn the event this information is protected by the Federal Confidentiality of Alcohol and Drug Abuse Patient Records regulations: The Federal rules restrict any use of the information to criminally investigate or prosecute any alcohol or drug abuse patient.[facility] HospitalIn the event this information is protected by the Federal Confidentiality of Alcohol and Drug Abuse Patient Records regulations: The Federal rules restrict any use of the information to criminally investigate or prosecute any alcohol or drug abuse patient.[facility] HospitalIn the event this information is protected by the Federal Confidentiality of Alcohol and Drug Abuse Patient Records regulations: The Federal rules restrict any use of the information to criminally investigate or prosecute any alcohol or drug abuse patient.[facility] HospitalIn the event this information is protected by the Federal Confidentiality of Alcohol and Drug Abuse Patient Records regulations: The Federal rules restrict any use of the information to criminally investigate or prosecute any alcohol or drug abuse patient.[facility] Reason for Visit (unrecogniz ed section and content) Reason Onset Date Comments Refill Request 10/27/2021 Reason Comments Rx substitution Reason Comments Follow Up Reason Comments Medication Problem Reason Comments Follow Up Anxiety Reason Comments Rash Pt reported bilatera l rash, bruising lower legs, swimming x1 day prior Reason Comments Well Woman Reason Comments Results Appointment Reason Onset Date Comments IUD Removal 01/19/2022 Specialty Diagnoses / Procedures Referred By Dave t Referred To Contact [facility] Diagnoses Encounter for gynecological examination (general) (routine) without abnormal findings Procedures REMOVE INTRAUTERINE DEVICE REMOVE INTRAUTERINE DEVICE LEVONORGESTREL IU 52MG 5 YR REMOVE INTRAUTERINE DEVICE WELLNESS EXAMS EST 18-39 YRS Sulma Bartholomew APRN.CNM [address] [place] [address] [facility] [address] [place] [address] Referral ID Status Reason Start Date Expiration Date V Heliosts Requested Visits Authorized [id number] Authorized 07/23/2021 07/22/2022 2 2 Reason Comments Results Reason Comments Patient Question Reason Comments Medication Request Reason Comments Abnormal Pap Reason Comments Establish Care Transferring care [facility] VALERY- patient reports she just found out she is Reason Comments behavioral health social work Reason Comments Referral Information Reason Comments Early OB Bleeding Reason Comments ED Follow-up Reason Comments Care Reason Comments Medication Question Reason Onset Date Comments Care 05/23/2022 Reason Comments Follow Up Headaches almost con tinuous x 1 month Reason Comments US Specialty Diagnoses / Procedures Referred By Dave rocha Referred To Contact [facility] Diagnoses 8 weeks gestation of Procedures NUCHAL TRANSLUCENCY WHI US NUCHAL TRANSLUCENCY 1ST GESTATION Sulma Bartholomew APRN.CNM [address] [place] [address] [facility] [address] [place] [address] Referral ID Status Reason Start Date Expiration Date V Heliosts Requested Visits Authorized [id number] Closed Auto-Generate d Referral 04/25/2022 04/25/2023 1 1 Reason Comments NIPT results Reason Comments Headache Reason Comments Future Appointment Reason Comments Information Reason Comments Cough Congestion, vomiting , LORNA ear pain, weakness, drainage x9 days Reason Onset Date Comments Refill Request 07/05/2022 Reason Onset Date Comments Care 07/06/2022 Reason Comments Patient Update Specialty Diagnoses / Procedures Referred By Contac t Referred To Contact [facility] Diagnoses 8 weeks gestation of Procedures OBSTETRIC ULTRASOUND WHI US PREG UTERUS AFTER 1ST TRIMEST GESTATION PumaSulma APRN.CN [address] [place] [address] [address] Referral ID Status Reason Start Date Expiration Date V isits Requested Visits Authorized [id number] Closed Auto-Generate d Referral 04/25/2022 04/25/2023 1 1 Reason Comments Pain, Throat Pt reported 22 wks g estation, denied vaginal spotting, cramping, bleeding, throat pain rated 6, blisters located on mouth, x4 days. Reason Comments lost voice Started getting rasp y Sunday night lost it yesterday, sore is sore when wakes up, ears sore no fever chills or body aches a week ago had blisters in mouth came in had tested. Reason Comments Sore Throat Ear Pain Reason Onset Date Comments Care 08/09/2022 Reason Comments Ear Pain Bilateral ears, and throat pain x 2 weeks Reason Onset Date Comments hepatitis c exposure 08/11/2022 Reason Comments Orders Reason Comments Returning Patient's Call Follow Up Reason Comments Panic Reason Onset Date Comments Refill Request 09/09/2022 Reason Onset Date Comments Care 10/18/2022 Reason Onset Date Comments Care 11/02/2022 Specialty Diagnoses / Procedures Referred By Contac t Referred To Contact [facility] Diagnoses 34 weeks gestation of Limited care in third trimester Supervision of other high risk pregnancies, third trimester Size of fetus inconsistent with dates in third trimester Procedures OBSTETRIC ULTRASOUND WHI US PREG UTERUS AFTER 1ST TRIMEST GESTATION Carmelita Millan MD [address] [place] [address] [facility] [address] [place] [address] Referral ID Status Reason Start Date Expiration Date V isits Requested Visits Authorized [id number] Closed Auto-Generate d Referral 10/18/2022 10/18/2023 1 1 Reason Comments Cough Chest congestion, SO B, CISNEROS x2 days Reason Onset Date Comments Results 11/08/2022 Reason Comments Orders Reason Comments Gestational / Rn Visit Diabetes Reason Onset Date Comments Care 11/15/2022 Reason Comments Assessment Patient Education Specialty Diagnoses / Procedures Referred By Contac t Referred To Contact Nutrition Diagnoses Diet controlled gestational diabetes mellitus (GDM), antepartum Procedures CONSULT TO NUTRITION THERAPY MEDICAL NUTRITION ASSMT&IVNTJ INDIV EACH 15 WV MEDICAL NUTRITION ASSMT&IVNTJ INDIV EACH 15 WV MEDICAL NUTRITION ASSMT&IVNTJ INDIV EACH 15 WV MEDICAL NUTRITION ASSMT&IVNTJ INDIV EACH 15 WV Sulma Bartholomew APRN.JULISSA [address] [place] [address] Referral ID Status Reason Start Date Expiration Date V isits Requested Visits Authorized [id number] Closed PCP Requested Referral 11/08/2022 11/08/2023 1 1 Reason Comments Ob Delivery Note Reason Comments Colposcopy Reason Comments Patient Question Reason Comments Unprotected [place] Reason Comments Contraception Reason Comments ADD/ADHD Reason Comments ER F/U Migraine 2 days Reason Comments bh consult Reason Comments Patient Update Reason Comments Follow Up Symptoms worsening- lower abd pressure and pain with voiding mid to upper back pain Reason Comments Follow Up Reason Comments Appointment Reason Comments Covid19 Concern Reason Comments Surgery Cancelled Reason Onset Date Comments Refill Request 04/04/2023 Reason Onset Date Comments Refill Request 05/04/2023 Reason Onset Date Comments Refill Request 05/29/2023 Reason Comments Headaches Specialty Diagnoses / Procedures Referred By Contac t Referred To Contact Diagnoses Migraine with aura and without status migrainosus, not intractable Procedures CONSULT TO HEADACHE CLINIC OFFICE/OUTPATIENT [facility] MDM 60-74 MINUTES Sulma Bartholomew APRN.CNM [address] [place] [address] Referral ID Status Reason Start Date Expiration Date V isits Requested Visits Authorized [id number] Closed PCP Requested Referral 07/06/2022 07/06/2023 1 1 Reason Comments Missed Appointment Reason Comments Post-Op Visit Reason Comments ER F/U Reason Comments ED Follow-up Reason Comments Establish Care General health juan rns, bad back, kidney stones, discuss medication she is not taking Reason Comments Consult Patient Outreach [facility] Reason Onset Date Comments Refill Request 07/05/2023 Reason Comments Flank Pain Pt has had burning w ith urination since yesterday and awoke today with bilateral flank pain and nausea, no vomiting. Reason Comments ER F/U Reason Comments Physical Reason Onset Date Comments Refill Request 09/04/2023 Reason Comments Results Reason Onset Date Comments Refill Request 09/14/2023 Reason Comments Follow Up In office needed to continue germán, Dr. Tracy patient Reason Comments Nephrolithiasis Specialty Diagnoses / Procedures [facility] Radiology Diagnoses Kidney stones Procedures XR abdomen 1 view Dev Narayan MD [address] [place] [address] Referral ID Status Reason Start Date Expiration Date Visits Requested Visits Authorized [id number] Authorized Perform Procedure 09/24/2023 09/23/2024 1 1 Reason Comments FMLA Paperwork Reason Comments KUB RESULTS Reason Comments New Patient Pt reported intermit tent cramping hands, x4 years. Specialty Diagnoses / Procedures Referred By Contac t Referred To Contact Neurology Diagnoses Cramping of hands Facial paralysis Near syncope Procedures CONSULT TO NEUROLOGY OFFICE/OUTPATIENT NEW HIGH MDM 60 MINUTES Aliyah Carter, FONDANT COOKER.QUANTITATIVE ANALYST MARKETING [address] [place] [address] Referral ID Status Reason Start Date Expiration Date V isits Requested Visits Authorized [id number] Closed PCP Requested Referral 09/21/2023 09/20/2024 1 1 Reason Comments Forms Specialty Diagnoses / Procedures [facility]erred To Contact [facility] Diagnoses Disorder of adrenal gland (HCC) Procedures MRI ADRENAL WO IVCON MRI, ABDOMEN (MRI) Damaso Jang MD [address] [place] [address] [place] [address] Referral ID Status Reason Start Date Expiration Date V isits Requested Visits Authorized [id number] Closed Auto-Generate d Referral 09/21/2023 11/20/2023 1 1 Specialty Diagnoses / Procedures [facility] Referred To Contact [facility] Diagnoses Migraine with aura and without status migrainosus, not intractable FTND (full term normal delivery) Procedures MRV BRAIN WO/W IVCON MRA; HEAD W & WO CONTRAST Lashon Saba PA-C [address] [place] [address] [place] [address] Referral ID Status Reason Start Date Expiration Date V isits Requested Visits Authorized [id number] Closed Auto-Generate d Referral 09/24/2023 11/23/2023 1 1 Reason Comments Other Specialty Diagnoses / Procedures [facility] Referred To Contact Diagnoses Kidney stone Kidney stone [N20.0] Procedures RI LITHOTRIPSY XTRCORP SHOCK WAVE Lithotripsy Extracorporeal Shock Wave Dev Narayan MD [address] [place] [address] [facility] [address] [place] [id number] Referral ID Status Reason Start Date Expiration Date Visits Re quested Visits Authorized [id number] 1 1 Reason Comments Headache X today, states she took her imitrex 2 hrs ago and is still having issues Reason Comments Headache Migraine started tod ay Reason Comments Panic Attack Patient to ED via eelchair with c/o I've been having a 48 hour panic attack-- worse since 1000 today with chest pressure and shortness of breath. Patient reports recent stressors such as handling affairs for her mother that in March as well as financial concerns. Tearful upon arrival. Taking Rx Clonidine without relief. Denies suicidal or homicidal ideation. Reason Comments Multiple Concerns Reason Comments Adrenal Specialty Diagnoses / Procedures [facility] Referred To Contact Endocrinology Diagnoses Cramping of hands Facial paralysis Near syncope Adrenal nodule (HCC) Procedures CONSULT TO ENDOCRINOLOGY OFFICE/[facility]UTES Damaso Samuels Jr., MD [address] [facility] [address] [place] [address] Referral ID Status Reason Start Date Expiration Date V isits Requested Visits Authorized [id number] Closed PCP Requested Referral 10/01/2023 09/30/2024 1 1 Reason Comments Follow Up Multiple Concerns Reason Comments Opened In Error Reason Comments Chest Pain Reason Comments Follow Up Follow up from [facility] and appendectomy Reason Comments Back Pain Reason Comments dental infection tooth pain Reason Comments Dental Pt expressing recurr ent abscess on R mandible. Pt has been on multiple abx, tylenol, toradol. Pt was seen at OSH earlier today, had CT scan, steroid injection and attempted lancing x 5 without drainage. Pt with ongoing pain and swelling. Reason Comments Follow Up Reason Onset Date Comments IUD Removal 05/19/2024 Reason Onset Date Comments Refill Request 05/25/2024 Reason Comments Cough Chest congestion, sc ratchy throat, worse ay HS x 3 days Reason Onset Date Comments Refill Request 06/19/2024 Reason Comments Endometrial Biopsy Colposcopy Specialty Diagnoses / Procedures Referred By Contac t Referred To Contact [facility] Diagnoses Other abnormal cytological finding of specimen from cervix Procedures COLPOSCOPY COLPOSCOPY CERVIX BX CERVIX & ENDOCRV CURRETAGE Angela Haq, OCTAVIO.QUANTITATIVE ANALYST MARKETING [address] [place] [address] [facility] [address] [place] [address] Referral ID Status Reason Start Date Expiration Date V isits Requested Visits Authorized [id number] Closed Auto-Generate d Referral 05/26/2024 05/26/2025 1 1 Reason Comments Dental Pain Right lower dental p ain/swelling. Finished clindamycin this morning. Referred to ED by dentist d/t swelling going into neck Reason Onset Date Comments Refill Request 07/21/2024 Reason Comments No Show Reason Onset Date Comments Refill Request 08/18/2024 Reason Comments Migraine Vomiting Pt c/o migraine that started around 1pm today and a few hours later started vomiting. Pt states home medications that normally work for migraine have not worked today. Reason Onset Date Comments Refill Request 09/06/2024 Reason Onset Date Comments Refill Request 09/16/2024 Reason Comments Allergic Reaction Reason Onset Date Comments Refill Request 10/09/2024 Reason Comments Refill Request Reason Comments Back Pain Pt has chronic back pain, slipped in the tub tonight, having worsening pain Reason Comments Other Patient wants to dis cuss FMLA and accommodations due to anxiety, PTSD, and back injury that causes pain-3 slip discs, deg. Disc disorder Reason Comments paper work Reason Onset Date Comments Refill Request 01/23/2025 Reason Comments pain with intercourse Reason Comments Abdominal Pain C/o lower abd crampi ng with sharp pain on and off for a few weeks. Also c/o diarrhea the last week. Pt saw her mix house tender and was started on doxycycline. Denies any urinary problems Reason Comments Pelvic Pain Reason Comments Orders Abdominal Pain Reason Comments Follow Up Chronic Illness Multiple Concerns Back Pain Reason Comments Reason Comments Discussion Reason Comments Rapid Heart Rate Reports feeling ligh theaded today when standing up and feeling her heart racing. Pt reports feeling lower back pain recently as well. Is 12 weeks . Mild nausea. Care Teams (unrecognized sec tion and content) Security Guard Relationship Specialty Start Date End Date Amaya Rasmussen, OCTAVIO.DEO RAMIREZ [address] [facility] [place] [address] PCP - General Family Practice 03/01/20 Security Guard Relationship Specialty Start Date End Date Amaya Rasmussen, OCTAVIO.DEO RAMIREZ [address] [facility] [place] [address] PCP - General Family Practice 03/01/20 Security Guard Relationship Specialty Start Date End Date Amaya Rasmussen, OCTAVIO.DEO RAMIREZ [address] [facility] [place] [address] PCP - General Family Practice 03/01/20 Security Guard Relationship Specialty Start Date End Date Amaya Rasmussen APRN.DEO RAMIREZ [address] [facility] [place] [address] PCP - General Family Practice 03/01/20 Security Guard Relationship Specialty Start Date End Date Amaya Rasmussen APRN.DEO RAMIREZ [address] [facility] [place] [address] PCP - General Family Practice 03/01/20 Security Guard Relationship Specialty Start Date End Date Amaya Rasmussen, OCTAVIO.DEO RAMIREZ [address] [facility] [place] [address] PCP - General Family Practice 03/01/20 Security Guard Relationship Specialty Start Date End Date Amaya Rasmussen, FONDANT COOKER.ANISHA, DNP [address] [place] [address] PCP - General Family Practice 03/01/20 Security Guard Relationship Specialty Start Date End Date Amaya Rasmussen, FONDANT COOKER.ANISHA, DNP [address] [place] [address] PCP - General Family Practice 03/01/20 Security Guard Relationship Specialty Start Date End Date Amaya Rasmussen, FONDANT COOKER.ANISHA, DNP [address] [facility] [place] [address] PCP - General Family Practice 03/01/20 Security Guard Relationship Specialty Start Date End Date Amaya Rasmussen, FONDANT COOKER.ANISHA, DNP [address] [facility] [place] [address] PCP - General Family Practice 03/01/20 Security Guard Relationship Specialty Start Date End Date Amaya Rasmussen, FONDANT COOKER.ANISHA, DNP [address] [place] [address] PCP - General Family Practice 03/01/20 Security Guard Relationship Specialty Start Date End Date Amaya Rasmussen, FONDANT COOKER.ANISHA, DNP [address] [facility] [place] [address] PCP - General Family Practice 03/01/20 Security Guard Relationship Specialty Start Date End Date Debby Reeves MD [address] [facility] [place] [address] PCP - General Family Practice 03/21/22 Security Guard Relationship Specialty Start Date End Date Debby Reeves MD [address] [facility] [place] [address] PCP - General Family Practice 03/21/22 Security Guard Relationship Specialty Start Date End Date Debby Reeves MD [address] [facility] [place] [address] PCP - General Family Practice 03/21/22 Security Guard Relationship Specialty Start Date End Date Debby Reeves MD [address] [facility] [place] [address] PCP - General Family Practice 03/21/22 Security Guard Relationship Specialty Start Date End Date Debby Reeves MD [address] [facility] [place] [address] PCP - General Family Practice 03/21/22 Security Guard Relationship Specialty Start Date End Date Debby Reeves MD [address] [facility] [place] [address] PCP - General Family Medicine 03/21/22 Security Guard Relationship Specialty Start Date End Date Debby Reeves MD [facility] [place] [address] PCP - General Family Medicine 03/21/22 Security Guard Relationship Specialty Start Date End Date Debby Reeves MD [address] [facility] [place] [address] PCP - General Family Medicine 03/21/22 Security Guard Relationship Specialty Start Date End Date Debby Reeves MD [address] [facility] [place] [address] PCP - General Family Medicine 03/21/22 Security Guard Relationship Specialty Start Date End Date Debby Reeves MD [address] [facility] [place] [address] PCP - General Family Medicine 03/21/22 Security Guard Relationship Specialty Start Date End Date Debby Reeves MD [address] [facility] [place] [address] PCP - General Family Medicine 03/21/22 Security Guard Relationship Specialty Start Date End Date Debby Reeves MD [address] [facility] [place] [address] PCP - General Family Medicine 03/21/22 Security Guard Relationship Specialty Start Date End Date Debby Reeves MD [address] [facility] [place] [address] PCP - General Family Medicine 03/21/22 Security Guard Relationship Specialty Start Date End Date Debby Reeves MD [facility] [place] [address] PCP - General Family Medicine 03/21/22 Security Guard Relationship Specialty Start Date End Date Debby Reeves MD [facility] [place] [address] PCP - General Family Medicine 03/21/22 Security Guard Relationship Specialty Start Date End Date Debby Reeves MD [facility] [place] [address] PCP - General Family Medicine 03/21/22 Security Guard Relationship Specialty Start Date End Date Debby Reeves MD [facility] [place] [address] PCP - General Family Medicine 03/21/22 Security Guard Relationship Specialty Start Date End Date Debby Reeves MD [facility] [place] [address] PCP - General Family Medicine 03/21/22 Security Guard Relationship Specialty Start Date End Date Debby Reeves MD [facility] [place] [address] PCP - General Family Medicine 03/21/22 Security Guard Relationship Specialty Start Date End Date Debby Reeves MD [facility] [place] [address] PCP - General Family Medicine 03/21/22 Team Status: Active Member Role Status Dates No Primary Care Physician Family Provider Active Dr. Joe Reeves MD Primary Care Provider Acti ve Team Status: Inactive Member Role Status Dates Dr. Joe Reeves MD Primary Care Provider Acti ve Ammon Londono MD Attending Provider, Emergency Provid er Active Team Status: Inactive Member Role Status Dates Dr. Joe Reeves MD Primary Care Provider Acti ve Dr. Carmelita Millan MD Attending Provider, Referring Provider Active Security Guard Relationship Specialty Start Date End Date Debby Reeves MD [address] [facility] [place] [address] PCP - General Family Medicine 03/21/22 Team Status: Inactive Member Role Status Dates Dr. Joe Reeves MD Primary Care Provider Acti ve Sulma Bartholomew CNM Attending Provider, Referring Pr ovider Active Security Guard Relationship Specialty Start Date End Date Debby Reeves MD [address] [facility] [place] [address] PCP - General Family Medicine 03/21/22 Security Guard Relationship Specialty Start Date End Date Debby Reeves MD [address] [place] [address] PCP - General Family Medicine 03/21/22 Security Guard Relationship Specialty Start Date End Date Debby Reeves MD [address] [place] [address] PCP - General Family Medicine 03/21/22 Team Status: Inactive Member Role Status Dates Dr. Joe Reeves MD Primary Care Provider Acti ve Dr. Carmelita Millan MD Admit Provider, Attending Provider, Referring Provider Active Security Guard Relationship Specialty Start Date End Date Debby Reeves MD [address] [facility] [place] [address] PCP - General Family Medicine 03/21/22 Security Guard Relationship Specialty Start Date End Date Debby Reeves MD [address] [place] [address] PCP - General Family Medicine 03/21/22 Security Guard Relationship Specialty Start Date End Date Debby Reeves MD [address] [place], [place] [address] PCP - General Family Medicine 03/21/22 Team Status: Inactive Member Role Status Dates Dr. Joe Reeves MD Primary Care Provider, Ref erring Provider Active oDt [place] F[employer]ER GLASS WORKER, FIBER GLASS WORKER-C Attending Provider Active Team Status: Inactive Member Role Status Dates Dr. Joe Reeves MD Primary Care Provider Acti ve Dr. Mai Wang , DO Emergency Provider Active Security Guard Relationship Specialty Start Date End Date Debby Reeves MD [address] [place] [address] PCP - General Family Medicine 03/21/22 Security Guard Relationship Specialty Start Date End Date Debby Reeves MD [address] [place] [address] PCP - General Family Medicine 03/21/22 Security Guard Relationship Specialty Start Date End Date Debby Reeves MD [address] [place] [address] PCP - General Family Medicine 03/21/22 Security Guard Relationship Specialty Start Date End Date Debby Reeves MD [address] [place], [place] [address] [phone] PCP - General Family Medicine 03/21/22 Security Guard Relationship Specialty Start Date End Date Debby Reeves MD [address] [place], [place] [address]27[address] [phone] PCP - General Family Medicine 03/21/22 Security Guard Relationship Specialty Start Date End Date Debby Reeves MD [address] [place] [address] PCP - General Family Medicine 03/21/22 Security Guard Relationship Specialty Start Date End Date Debby Reeves MD [address] [place] [address] PCP - General Family Medicine 03/21/22 Security Guard Relationship Specialty Start Date End Date Debby Reeves MD [address] [place] [address] PCP - General Family Medicine 03/21/22 Security Guard Relationship Specialty Start Date End Date Debby Reeves MD [address] [place] [address] PCP - General Family Medicine 03/21/22 Security Guard Relationship Specialty Start Date End Date Debby Reeves MD [address] [place] [address] PCP - General Family Medicine 03/21/22 Security Guard Relationship Specialty Start Date End Date Debby Reeves MD [address] [place] [address] PCP - General Family Medicine 03/21/22 Team Status: Inactive Member Role Status Dates Dr. Joe Reeves MD Primary Care Provider, Ref erring Provider Active Dr. Sabas Kim DO Attending Provider Active Team Status: Inactive Member Role Status Dates Dr. Joe Reeves MD Primary Care Provider Acti ve Dr. Max Núñez MD Attending Provider Active Team Status: Inactive Member Role Status Dates Dr. Joe Reeves MD Primary Care Provider Acti ve Dr. Mai Wang , DO Attending Provider, Emergency P royvonne Active Team Status: Inactive Member Role Status Dates Dr. Joe Reeves MD Primary Care Provider Acti ve Dr. Sabas Kim , Attending Provider, Referring P azar Active Security Guard Relationship Specialty Start Date End Date Debby Reeves MD [address] [facility] [place] [address] PCP - General Family Medicine 03/21/22 Security Guard Relationship Specialty Start Date End Date Debby Reeves MD [address] [facility] [place] [address] PCP - General Family Medicine 03/21/22 Security Guard Relationship Specialty Start Date End Date Debby Reeves MD [address] [facility] [place] [address] PCP - General Family Medicine 03/21/22 Security Guard Relationship Specialty Start Date End Date Debby Reeves MD [address] [facility] [place] [address] PCP - General Family Medicine 03/21/22 Security Guard Relationship Specialty Start Date End Date Debby Reeves MD [address] [facility] [place] [address] PCP - General Family Medicine 03/21/22 Security Guard Relationship Specialty Start Date End Date Debby Reeves MD [address] [facility] [place] [address] PCP - General Family Medicine 03/21/22 Security Guard Relationship Specialty Start Date End Date Debby Reeves MD [address] [facility] [place] [address] PCP - General Family Medicine 03/21/22 Security Guard Relationship Specialty Start Date End Date Debby Reeves MD [address] [place] [address] PCP - General Family Medicine 03/21/22 Team Status: Inactive Member Role Status Dates Dr. Joe Reeves MD Primary Care Provider Cherie Londono MD Emergency Provider Active Security Guard Relationship Specialty Start Date End Date Debby Reeves MD [address] [place] [address] PCP - General Family Medicine 03/21/22 Security Guard Relationship Specialty Start Date End Date Generic Provider, No Assigned Pcp[facility] [address] [place] [address] PCP - General 08/26/23 Security Guard Relationship Specialty Start Date End Date Debby Reeves MD [address] [place] [address] PCP - General Family Medicine 03/21/22 Security Guard Relationship Specialty Start Date End Date Debby Reeves MD [address] [place] [address] PCP - General Family Medicine 03/21/22 Security Guard Relationship Specialty Start Date End Date Keaton Tracy MD [address] [place] [address] PCP - General Family Medicine 09/21/23 Security Guard Relationship Specialty Start Date End Date Generic Provider, No Assigned MD [address] [place] [address] PCP - General 08/26/23 Security Guard Relationship Specialty Start Date End Date Generic Provider, No Assigned MD [address] [place] [address] PCP - General 08/26/23 Security Guard Relationship Specialty Start Date End Date Keaton Tracy MD [address] [place] [address] PCP - General Family Medicine 09/21/23 Security Guard Relationship Specialty Start Date End Date Generic Provider, No Assigned [facility] [address] [place] [address] PCP - General 08/26/23 Security Guard Relationship Specialty Start Date End Date Keaton Tracy MD [address] [place] [address] PCP - General Family Medicine 09/21/23 Security Guard Relationship Specialty Start Date End Date Keaton Tracy MD [address] [place] [address] PCP - General Family Medicine 09/21/23 Security Guard Relationship Specialty Start Date End Date Keaton Tracy MD [address] [place] [address] PCP - General Family Medicine 09/21/23 Security Guard Relationship Specialty Start Date End Date Keaton Tracy MD [address] [place] [address] PCP - General Family Medicine 09/21/23 Security Guard Relationship Specialty Start Date End Date Keaton Tracy MD [address] [place] [address] PCP - General Family Medicine 09/21/23 Security Guard Relationship Specialty Start Date End Date Keaton Tracy MD [address] [place] [address] PCP - General Family Medicine 09/21/23 Security Guard Relationship Specialty Start Date End Date Keaton Tracy MD [address] [place] [address] PCP - General Family Medicine 09/21/23 Security Guard Relationship Specialty Start Date End Date Keaton Tracy MD [address] [place] [address] PCP - General Family Medicine 09/21/23 Security Guard Relationship Specialty Start Date End Date Generic Provider, No Assigned PcpMD PCP - General 08/26/23 Security Guard Relationship Specialty Start Date End Date Keaton Tracy MD [address] [address] PCP - General Family Medicine 09/21/23 Security Guard Relationship Specialty Start Date End Date Keaton Tracy MD [address] [address] PCP - General Family Medicine 09/21/23 Security Guard Relationship Specialty Start Date End Date Keaton Tracy MD [address] [facility] [place] [address] PCP - General Family Medicine 11/20/23 Security Guard Relationship Specialty Start Date End Date Keaton Tracy MD [address] [facility] [place] [address] PCP - General Family Medicine 11/20/23 Security Guard Relationship Specialty Start Date End Date Keaton Tracy MD [address] [address] PCP - General Family Medicine 09/21/23 Security Guard Relationship Specialty Start Date End Date Keaton Tracy MD [address] [address] PCP - General Family Medicine 09/21/23 Security Guard Relationship Specialty Start Date End Date Keaton Tracy MD [address] [address] PCP - General Family Medicine 09/21/23 Security Guard Relationship Specialty Start Date End Date Keaton Tracy MD [address] [address] PCP - General Family Medicine 09/21/23 Security Guard Relationship Specialty Start Date End Date Keaton Tracy MD [address] [place] [address] PCP - General Family Medicine 09/21/23 Security Guard Relationship Specialty Start Date End Date Keaton Tracy MD [address] [place] [address] PCP - General Family Medicine 09/21/23 Security Guard Relationship Specialty Start Date End Date Keaton Tracy MD [address] [place] [address] PCP - General Family Medicine 09/21/23 Security Guard Relationship Specialty Start Date End Date Keaton Tracy MD [address] [place] [address] PCP - General Family Medicine 09/21/23 Security Guard Relationship Specialty Start Date End Date Keaton Tracy MD [address] [place] [address] PCP - General Family Medicine 09/21/23 Security Guard Relationship Specialty Start Date End Date Keaton Tracy MD [address] [place] [address] PCP - General Family Medicine 09/21/23 Security Guard Relationship Specialty Start Date End Date Keaton Tracy MD [address] [place] [address] PCP - General Family Medicine 09/21/23 Security Guard Relationship Specialty Start Date End Date Keaton Tracy MD [address] [place] [address] PCP - General Family Medicine 09/21/23 Security Guard Relationship Specialty Start Date End Date Keaton Tracy MD [address] [place] [address] PCP - General Family Medicine 09/21/23 Security Guard Relationship Specialty Start Date End Date Keaton Tracy MD [address] [place] [address] PCP - General Family Medicine 09/21/23 Security Guard Relationship Specialty Start Date End Date Keaton Tracy MD [address] [address] PCP - General Family Medicine 09/21/23 Security Guard Relationship Specialty Start Date End Date Keaton Tracy MD [address] [facility] [place] [address] PCP - General Family Medicine 11/20/23 Security Guard Relationship Specialty Start Date End Date Keaton Tracy MD [address] [address] PCP - General Family Medicine 09/21/23 Security Guard Relationship Specialty Start Date End Date Keaton Tracy MD [address] [address] PCP - General Family Medicine 09/21/23 Security Guard Relationship Specialty Start Date End Date Keaton Tracy MD [address] [address] PCP - General Family Medicine 09/21/23 Security Guard Relationship Specialty Start Date End Date Keaton Tracy MD [address] [address] PCP - General Family Medicine 09/21/23 Security Guard Relationship Specialty Start Date End Date Keaton Tracy MD [address] [facility] [place] [address] PCP - General Family Medicine 11/20/23 Security Guard Relationship Specialty Start Date End Date Keaton Tracy MD [address] [address] PCP - General Family Medicine 09/21/23 Security Guard Relationship Specialty Start Date End Date Keaton Tracy MD [address] [facility] [place] [address] PCP - General Family Medicine 11/20/23 Security Guard Relationship Specialty Start Date End Date Keaton Tracy MD [address] [place] [address] PCP - General Family Medicine 09/21/23 Security Guard Relationship Specialty Start Date End Date Keaton Tracy MD [address] [address] PCP - General Family Medicine 09/21/23 Security Guard Relationship Specialty Start Date End Date Keaton Tracy MD [address] [address] PCP - General Family Medicine 09/21/23 Security Guard Relationship Specialty Start Date End Date Keaton Tracy MD [address] [place] [address] PCP - General Family Medicine 09/21/23 Security Guard Relationship Specialty Start Date End Date Keaton Tracy MD [address] [place] [address] PCP - General Family Medicine 09/21/23 Security Guard Relationship Specialty Start Date End Date Keaton Tracy MD [address] [facility] [place] [address] PCP - General Family Medicine 11/20/23 Security Guard Relationship Specialty Start Date End Date Keaton Tracy MD [address] [place] [address] PCP - General Family Medicine 09/21/23 Security Guard Relationship Specialty Start Date End Date Keaton Tracy MD [address] [place] [address] PCP - General Family Medicine 09/21/23 Security Guard Relationship Specialty Start Date End Date Keaton Tracy MD [address] [place] [address] PCP - General Family Medicine 09/21/23 Security Guard Relationship Specialty Start Date End Date Keaton Tracy MD [address] [facility] [place], [place] [id number] PCP - General Family Medicine 11/20/23 Goals (unrecognized section and content) Goals may be documented in a n alternate section Scheduled Active and Recently Administ ered Medications (unrecognized section and content) Medication Order 08/24/2023 08/25/2023 08/26/2023 cefTRIAXone (Rocephin) 2 g IV in dextrose 5% 50 mL (COMPLETED) 2 g, intravenous, at 100 mL/hr, Administer over 30 Minutes, Once, On 08/26/23 at 2114, For 1 dose, premix bag, Suspected Indication (Select all that apply): Urinary Tract Infection, Type of Therapy: Empiric, Type of Urinary Tract Infection: Uncomplicated 2126 (New Bag - Prov ider: Aliyah Encarnacion RN)2203 (Stopped - Provider: Aliyah Encarnacion RN) HYDROmorphone (Dilaudid) injection 1 mg (COMPLETED) 1 mg, intravenous, Once, On 08/26/23 at 2114, For 1 dose 2126 (Given - Provid er: Aliyah Encarnacion RN) ketorolac (Toradol) injection 30 mg (COMPLETED) 30 mg, intravenous, Once, On 08/26/23 at 2024, For 1 dose 2024 (Given - Provid er: Micheline Cook RN) morphine injection 4 mg (COMPLETED) 4 mg, intravenous, Once, On 08/26/23 at 190, For 1 dose 1927 (Given - Provid er: Aliyah Encarnacion RN) ondansetron (Zofran) injection 4 mg (COMPLETED) 4 mg, intravenous, Once, On 08/26/23 at 190, For 1 dose, When administering via IV Push, administer over 3-5 minutes. 1928 (Given - Provid er: Aliyah Encarnacion RN) phenazopyridine (Pyridium) tablet 200 mg (COMPLETED) 200 mg, oral, Once, On 08/26/23 at 2215, For 1 dose, May discolor urine (orange). 2216 (Given - Provid er: Aliyah Encarnacion RN) sodium chloride 0.9 % bolus 1,000 mL (COMPLETED) 1,000 mL, intravenous, at 1,000 mL/hr, Administer over 1 Hours, Once, On 08/26/23 at 1905, For 1 dose 1926 (New Bag - Prov ider: Aliyah Encarnacion RN)2110 (Stopped - Provider: Aliyah Encarnacion RN) PRN Medication Order 08/24/2023 08/25/2023 08/26/2023 HYDROcodone-acetaminophen ([place]) 5-325 mg per tablet 1 tablet 1 tablet, oral, Every 6 hours PRN, pain severe (7-10), first line, Starting on 08/26/23 at 220, If ordered PRN for pain, nurse is permitted to administer this medication for higher pain scores based on patient preference? Yes 2219 (Given - Provid er: Aliyah Encarnacion RN - Comment: home pack dispensed per orders) Scheduled Medication Order 11/04/2023 11/05/2023 11/06/2023 acetaminophen (Tylenol) tablet 975 mg (COMPLETED) 975 mg, oral, Once, On 11/06/23 at 0715, For 1 dose, Preprocedure, Administer with small amount of water preoperatively., If ordered PRN for pain, nurse is permitted to administer this medication for higher pain scores based on patient preference? Yes 708 (Given - Provid er: Rossi Castro RN - Comment: preop) dexAMETHasone (PF) (Decadron) injection 8 mg (COMPLETED) 8 mg, intravenous, Once, On e 11/06/23 at 0715, For 1 dose, Preprocedure 07 (Given - Provid er: Rossi Castro RN) famotidine PF (Pepcid) injection 20 mg (COMPLETED) 20 mg, intravenous, Once, On 11/06/23 at 0715, For 1 dose, Preprocedure 0723 (Given - Provid er: Rossi Castro RN) midazolam (Versed) injection 2 mg (COMPLETED) 2 mg, intravenous, Once, On Sun11/06/23 at 0715, For 1 dose, Preprocedure 0732 (Given - Provid er: Rossi Castro RN) ondansetron (Zofran) injection 4 mg (COMPLETED) 4 mg, intravenous, Once, On Sun11/06/23 at 0715, For 1 dose, Preprocedure, When administering via IV Push, administer over 3-5 minutes. 0723 (Given - Provid er: Rossi Castro RN) Continuous Medication Order 11/04/2023 11/05/2023 11/06/2023 lactated Ringer's infusion 75 mL/hr, intravenous, Continuous, Starting on Sun11/06/23 at 0715 0723 (New Bag - Prov ider: Rossi Castro RN)0741 (Continued by Anesthesia - Provider: Andrew Atkins DO)0816 (Paused - Provider: Andrew Atkins DO - Comment: Switch to gravity)0817 (Restarted - Provider: Andrew Atkins DO) lactated Ringer's infusion 100 mL/hr, intravenous, Continuous, Starting on Sun11/06/23 at 0845, Recovery (only) 0851 (New Bag - Prov ider: Nayeli Marrero RN) PRN Medication Order 11/04/2023 11/05/2023 11/06/2023 HYDROmorphone (Dilaudid) injection 0.5 mg 0.5 mg, intravenous, Every 5 min PRN, pain moderate (4-6), first line, Starting on Sun11/06/23 at 0822, Recovery (only), Max total of 4 mg regardless of dose. HYDROmorphone (Dilaudid) injection 0.5 mg 0.5 mg, intravenous, Every 5 min PRN, pain severe (7-10), first line, Starting on Sun11/06/23 at 0822, Recovery (only), Max total of 4 mg regardless of dose. 0834 (Given - Provid er: Nayeli Marrero RN)0847 (Given - Provider: Nayeli Marrero RN)0946 (Given - Provider: Gricelda Oneill RN) ondansetron (Zofran) injection 4 mg 4 mg, intravenous, Once as needed, nausea/vomiting, second line, Starting on Sun11/06/23 at 0822, For 1 dose, Recovery (only), When administering via IV Push, administer over 3-5 minutes. oxyCODONE (Roxicodone) immediate release tablet 5 mg 5 mg, oral, Every 4 hours PRN, pain mild (1-3), first line, Starting on Sun11/06/23 at 0822, Recovery (only), When able to take oral medications., If ordered PRN for pain, nurse is permitted to administer this medication for higher pain scores based on patient preference? Yes 923 (Given - Provid er: Gricelda Oneill RN) oxygen (O2) therapy inhalation, Continuous PRN - O2/gases, other, Starting on Sun11/06/23 at 0822, Recovery (only), Device: Simple Face Mask, Rate in Liters per minute: 6 LPM, Keep O2 Sat Above: 92% promethazine (Phenergan) 6.25 mg in sodium chloride 0.9% 50 mL IV 6.25 mg, intravenous, Administer over 15 Minutes, Once as needed, Nausea/vomiting first line, Starting on Sun11/06/23 at 0822, For 1 dose, Recovery (only) Scheduled Medication Order 11/18/2023 11/19/2023 11/20/2023 diazePAM (Valium) tablet 5 mg (COMPLETED) 5 mg, oral, Once, On Sun11/20/23 at 1950, For 1 dose 1951 (Given - Provid er: Beto Tukr RN) Scheduled Medication Order 04/14/2024 04/15/2024 04/16/2024 acetaminophen (TYLENOL) tablet 1,000 mg, Oral, STAT, 1 dose, On Sun04/16/24 at 0351 0324 (Hold/Not Given - Provider: Antionette Guerra RN - Reason: Patient refused - Comment: patient eloped) amoxicillin-clavulanate (AUGMENTIN) 875-125 MG per tablet 1 Tablet, Oral, STAT, 1 dose, On Sun04/16/24 at 0351 0351 (Hold/Not Given - Provider: Antionette Guerra RN - Reason: Off unit (AWOL) - Comment: patient eloped) ketorolac (TORADOL) 15 MG/ML injection 15 mg, Intramuscular, STAT, 1 dose, On Sun04/16/24 at 0351 0324 (Hold/Not Given - Provider: Antionette Guerra RN - Reason: Other - Comment: patient eloped) lidocaine viscous 2 % solution 15 mL, Mouth/Throat, STAT, 1 dose, On Sun04/16/24 at 0351 0324 (Hold/Not Given - Provider: Antionette Guerra RN - Reason: Other - Comment: patient eloped) metronidazole (FLAGYL) tablet 500 mg, Oral, STAT, 1 dose, On Sun04/16/24 at 0351 0325 (Hold/Not Given - Provider: Antionette Guerra RN - Reason: Other - Comment: patient eloped) Scheduled Medication Order 04/13/2024 04/14/2024 04/15/2024 dzzbbiec-uzunyinocm-ycxafqxmna (Cetacaine) spray 1 spray (COMPLETED) 1 spray, Topical, Once, On Sun04/15/24 at 1620, For 1 dose, Apply to: dental balls 1624 (Given - Provid er: Micheline Cook RN) iohexol (OMNIPaque) 350 mg iodine/mL solution 70 mL (COMPLETED) 70 mL, intravenous, Once in imaging, Starting on Sun04/15/24 at 1440, For 1 dose 1440 (Given - Provid er: Kat Wiggins) ketorolac (Toradol) injection 15 mg (COMPLETED) 15 mg, intravenous, Once, On Sun04/15/24 at 1325, For 1 dose 1332 (Given - Provid er: Micheline Cook RN) lidocaine (Xylocaine) 2 % mouth solution 1.25 mL (COMPLETED) 1.25 mL, Swish & Spit, Once, On Sun04/15/24 at 1530, For 1 dose 1534 (Given - Provid er: Micheline Cook RN) methylPREDNISolone sod succinate (SOLU-Medrol) injection 125 mg (COMPLETED) 125 mg, intravenous, Once, On Sun04/15/24 at 1325, For 1 dose 1328 (Given - Provid er: Micheline Cook RN) morphine injection 4 mg (COMPLETED) 4 mg, intravenous, Once, On Sun04/15/24 at 1515, For 1 dose 152 (Given - Provid er: Micheline Cook RN) morphine injection 4 mg (COMPLETED) 4 mg, intravenous, Once, On Sun04/15/24 at 1645, For 1 dose 165 (Given - Provid er: Micheline Cook RN) ondansetron (Zofran) injection 4 mg (COMPLETED) 4 mg, intravenous, Once, On Sun04/15/24 at 1515, For 1 dose, When administering via IV Push, administer over 3-5 minutes. 152 (Given - Provid er: Micheline Cook RN) sodium chloride 0.9 % bolus 1,000 mL (COMPLETED) 1,000 mL, intravenous, at 999 mL/hr, Administer over 1 Hours, Once, On Sun04/15/24 at 1325, For 1 dose 132 (New Bag - Prov ider: Micheline Cook RN)1625 (Stopped - Provider: Micheline Cook RN) Scheduled Medication Order 09/03/2024 09/04/2024 09/05/2024 diphenhydrAMINE (BENADryl) injection 50 mg (COMPLETED) 50 mg, intravenous, Once, On Sun09/05/24 at 1950, For 1 dose, If giving IV push, max rate of 25 mg/min. 1954 (Given - Provid er: Beto Turk RN) ketorolac (Toradol) injection 30 mg (COMPLETED) 30 mg, intravenous, Once, On Sun09/05/24 at 1950, For 1 dose 1953 (Given - Provid er: Beto Turk RN) metoclopramide (Reglan) injection 10 mg (COMPLETED) 10 mg, intravenous, Once, On Sun09/05/24 at 1950, For 1 dose 1952 (Given - Provid er: Beto Turk RN) sodium chloride 0.9 % bolus 1,000 mL (COMPLETED) 1,000 mL, intravenous, at 2,000 mL/hr, Administer over 30 Minutes, Once, On Sun09/05/24 at 1950, For 1 dose 1952 (New Bag - Prov ider: Beto Turk RN)2129 (Stopped - Provider: Beto Turk RN) Scheduled Medication Order 11/17/2024 11/18/2024 11/19/2024 ketorolac (Toradol) injection 15 mg (COMPLETED) 15 mg, intramuscular, Once, On Sun11/18/24 at 2220, For 1 dose 2222 (Given - Provider: Belem Pro RN) morphine injection 4 mg (COMPLETED) 4 mg, intramuscular, Once, On Sun11/18/24 at 2305, For 1 dose 2324 (Given - Provider: Alem Mcmanus, BRIT) ondansetron ODT (Zofran-ODT) disintegrating tablet 4 mg (COMPLETED) 4 mg, oral, Once, On Sun11/18/24 at 2305, For 1 dose 2323 (Given - Provider: Alem Mcmanus, BRIT) orphenadrine (Norflex) injection 60 mg (COMPLETED) 60 mg, intramuscular, Once, On Sun11/18/24 at 2220, For 1 dose 2222 (Given - Provider: Belem Pro RN) Scheduled Medication Order 02/09/2025 02/10/2025 02/11/2025 iohexol (OMNIPaque) 350 mg iodine/mL solution 68 mL (COMPLETED) 68 mL, intravenous, Once in imaging, Starting on Sun02/11/25 at 0100, For 1 dose 0124 (Given - Provid er: Cyndi Kingston) ketorolac (Toradol) injection 15 mg (COMPLETED) 15 mg, intravenous, Once, On Sun02/11/25 at 0140, For 1 dose 0151 (Given - Provid er: Main Swain RN) Scheduled Medication Order 04/19/2025 04/20/2025 04/21/2025 ondansetron (Zofran) injection 4 mg (COMPLETED) 4 mg, intravenous, Once, On Sun04/21/25 at 1640, For 1 dose, When administering via IV Push, administer over 3-5 minutes. 1652 (Given - Provid er: Corey Vernon RN) sodium chloride 0.9 % bolus 1,000 mL (COMPLETED) 1,000 mL, intravenous, at 999 mL/hr, Administer over 1 Hours, Once, On Sun04/21/25 at 1640, For 1 dose 1652 (New Bag - Prov ider: Corey Vernon RN)1752 (Stopped - Provider: Corey Vernon RN) FOR RECORDS PERTAINING TO PATIENTS WHO ARE OR HAVE BEEN ENROLLED IN A CHEMICAL DEPENDENCY/SUBSTANCEABUSE PROGRAM, SOME INFORMATION MAY BE OMITTED. This clinical summary was aggregated from multiple sources. Caution should be exercised in using it in the provision of clinical care. This summary normalizes information from multiple sources, and as a consequence, information in this document may materially change the coding, format and clinical context of patient data. In addition, data may be omitted in some cases. CLINICAL DECISIONS SHOULD BE BASED ON THE PRIMARY CLINICAL RECORDS. [facility]. provides no warranty or guarantee of the accuracy or completeness of information in this document.
--- NOTE | 2025-05-09 22:47 | EX.ED.VIS.HA ---
HPI History of Present Illness Chief Complaint: Headache Informant: patient Narrative Narrative: Patient is 29-year-old female who is currently 14 weeks (follows with [facility]) with history of migraines presenting with migraine headache. States that started around 11 AM. States that her whole head was worse in the back of her head and into her neck. Has associated photophobia and a cloudlike feeling of her head. States this feels like her prior migraines. She took 2000 mg of Tylenol at 5 PM and that was milligrams of Tylenol PM at 8:55 PM with no relief which were puncture, the emergency room as she continued to have nausea and then after that. Denies any fever or chills. Denies any urinary symptoms. Denies any abnormal vaginal bleeding. States she had blood work yesterday with her [employer]INE [employer] and everything looked good. Denies any acute complications with the . No other complaints or concerns reported at this time. [facility] Medical History DDD (degenerative disc disease), lumbar Wears partial dentures Substance abuse History of steroid therapy Hepatitis Vapes nicotine containing substance Gastric reflux History of pain when walking History of edema Hypotension History of Mohs micrographic surgery for skin cancer Encounter for IUD insertion MANUEL III (cervical intraepithelial neoplasia grade III) with severe dysplasia Herniated lumbar intervertebral disc Asthma depression Depression Anxiety Gestational diabetes Skin cancer ADHD Lower back pain Home Medications ?Medication ?Instructions ?Recorded ?Last Taken ?Type vit no.95-ferrous 1 tab PO DAILY 05/09/25 Unknown History fumarate 28 mg-folic acid 800 mcg tablet () Allergy/AdvReac Type Severity Reaction Status Date / Time cetirizine (From [facility]) Allergy difficulty Verified 05/09/25 21:47 breathing, racing heart Family History Other Suicide Surgical History History of appendectomy Hx of wisdom tooth extraction Social History Smoking Status: Current some day smoker tobacco type: e-cigarettes alcohol intake: never details: Occasionally substance use type: does not use ROS ROS ED Constitutional Constitutional ED: Denies chills or fever(s) Eyes Eyes: Denies blurry vision or change in vision ENT ENT ED: Denies sore throat Cardiovascular Cardiovascular: Denies chest pain Respiratory/Chest Respiratory/Chest: Denies cough Gastrointestinal Gastrointestinal: Reports nausea and vomiting; Denies abdominal pain Genitourinary Genitourinary ED: Reports other Details: Denies any abnormal vaginal bleeding or leakage of fluids ; Denies dysuria or urinary frequency Musculoskeletal Musculoskeletal: Reports neck pain Integumentary Denies rash Neurologic Neurologic: Reports headache(s) Psychiatric Psychiatric: Reports anxiety EXAM Physical Exam Const Vital Signs: 05/09/25 21:48 05/09/25 23:38 Temperature 98.1 F 98.4 F Temperature Source Oral Pulse Rate 105 H 77 Respiratory Rate 18 16 Blood Pressure 126/75 H 125/88 H Blood Pressure Mean 92 100 Pulse Ox 96 100 Oxygen Delivery Method Room Air Positive well nourished and well developed General Appearance ED: well developed and NAD HEENT Reports normocephalic, TM's clear and moist mucous membranes atraumatic Tympanic Membrane ED: Yes TM's clear Eyes PERRL Neck no lymphadenopathy, supple and no meningeal signs Resp normal respiratory effort and clear to auscultation bilaterally Cardio regular rate and regular rhythm GI non-tender and non-distended Extremity normal to inspection Neuro oriented x3, CN's II-XII intact bilaterally and no sensory deficits noted Sensorium / Orientation: awake and alert Speech: speech normal Sensory Exam: No sensory level loss detected Motor Exam: strength 5/5 throughout Psych mental status grossly normal Skin Lesions: no lesions Rashes: no rashes MDM MDM MDM Narrative Medical decision making narrative: Patient evaluated for migraine headache. Has a history of this but is having a hard time treatment as she is and cannot take NSAIDs or Imitrex. Differential includes is not limited to tension headache, migraine headache, meningitis (lower suspicion as she does not have fever or nuchal rigidity). She does not describe a thunderclap headache suspicion for subarachnoid hemorrhage. I do not think she requires any CT imaging of her brain at this time. Is given IV Reglan and magnesium as well as fluids for her headache. She seems to have improvement but then about fpc through her magnesium infusion states that she needs to get going home to put her daughter to bed and she is worried that if her falls asleep he will be able to pick her up. I did discuss it is possible she could be feeling anxious and feels needs to leave from the [facility] and offered her Benadryl. She will take oral Benadryl (does not want IV Benadryl as it makes her very agitated) but she was still like to leave. She states she still the headache but it is improved. She does seem more alert and comfortable than when I first evaluated her. Is encouraged to return should her headache worsen or not continue to improve for further treatment. She verbalizes understanding and agreement of this. Patient is only 14 weeks and has normal blood pressures with low suspicion for preeclampsia or headache related to . Discharged home in stable condition. Discharge Plan Triage Chief Complaint: Headache ED Provider: Mai Wang Dx/Rx/DC Orders Clinical Impression: Headache, migraine, Second trimester Instructions: ED, Migraine (Classical) Prescriptions: No Action PNV no.95-ferrous fumarate-FA [] 28 mg iron- 800 mcg tablet 1 tab PO DAILY Primary Care Provider: Care Physician,No Primary Referrals: Care Physician,No Primary [Primary Care Provider, Medical] Activity Restrictions/Additional Instructions: Please follow-up with your [employer]INE [employer]TER for further recommendations for migraine treatment. Please return if your headache is worsening. You may take an additional dose of Benadryl later tonight as needed every still feeling anxious or jittery. Print Language: Uzbek Disposition Disposition: Home, Self Care Discharge Date/Time: 05/09/25 23:40
[2025-05-09] MEDS: 0.9% Normal Saline (1000mL) 1,000 ML 999 ML IV (23:01)
[2025-05-09] MEDS: Magnesium Sulfate 2 GM in Dextrose 5%-Water (100mL Bag) 100 ML IV (23:01)
[2025-05-09 23:38] VITALS: BP 125/88; PULSE 77; RESP 16; TEMP 36.9; O2SAT 100
== END 2025-05-09 23:40 | disposition home or self-care (01) ==
PROVIDERS: Emergency Provider Emergency Medicine; Visit Provider Emergency Medicine
DX: O99.352 Diseases of the nervous system complicating pregnancy, second trimester (principal); Z3A.14 14 weeks gestation of pregnancy; G43.909 Migraine, unspecified, not intractable, without status migrainosus; J45.909 Unspecified asthma, uncomplicated; F17.290 Nicotine dependence, other tobacco product, uncomplicated; O99.512 Diseases of the respiratory system complicating pregnancy, second trimester; O99.332 Smoking (tobacco) complicating pregnancy, second trimester
CPT/HCPCS: 96365; 96375; 99283; A4216

== ENCOUNTER 2025-06-07 21:14 | Emergency (ER) | payer OTHER, MEDICAID, SELFPAY ==
[2025-06-07 21:15] VITALS: BP 119/77; PULSE 102; RESP 14; TEMP 36.8; O2SAT 100
--- NOTE | 2025-06-07 21:34 | EX.ED.VIS.HA ---
HPI History of Present Illness Chief Complaint: Headache Informant: patient Onset/Context/Timing Onset: Today Context: Gradual Timing: Continuous Quality -Headache: Positive for Similar Prior Headaches and Sharp Current Severity: Moderate Maximum Severity: Moderate Associated Symptoms/Injury Associated Symptoms: Positive for Photophobia; Negative for Fever, Nausea, Vomiting, Sore Throat, Sinus Pressure, Numbness, Tingling, Preceding Aura, Visual Changes, Blurred Vision or Visual Loss Injury - CISNEROS: Negative for Direct Trauma, Fall or Assault Narrative Narrative: 29-year-old female currently 18 weeks due in October of next year. Has a history depression, anxiety and ADHD. Has a history of migraine headaches and states this is similar to her migraines. Denies any fall or trauma. No fever. No sinus congestion. She has had prior CAT scans and MRIs of her brain that were unremarkable. States the headache goes from her forehead to the back of her head. She also is having lower back pain and has chronic lower back pain due to degenerative disc disease. Prior similar symptoms: Yes Recent Illness/Hospitalization: No PFSH PFSH Medical History DDD (degenerative disc disease), lumbar Wears partial dentures Substance abuse History of steroid therapy Hepatitis Vapes nicotine containing substance Gastric reflux History of pain when walking History of edema Hypotension History of Mohs micrographic surgery for skin cancer Encounter for IUD insertion MANUEL III (cervical intraepithelial neoplasia grade III) with severe dysplasia Herniated lumbar intervertebral disc Asthma depression Depression Anxiety Gestational diabetes Skin cancer ADHD Lower back pain Home Medications Medication Instructions Recorded Last Taken Type vit no.95-ferrous 1 tab PO DAILY 05/09/25 Unknown History fumarate 28 mg-folic acid 800 mcg tablet () escitalopram oxalate 10 mg tablet 10 mg PO QDAY #30 tabs 06/05/25 Unknown Rx Allergy/AdvReac Type Severity Reaction Status Date / [facility] Allergy difficulty Verified 06/07/25 21:17 breathing, racing heart Family History Other Suicide Surgical History History of appendectomy Hx of wisdom tooth extraction Social History Smoking Status: Current some day smoker tobacco type: e-cigarettes alcohol intake: never details: Occasionally substance use type: does not use ROS ROS ED ROS Narrative Headache. Consistent with prior migraines. Constitutional Constitutional ED: Denies chills or fever(s) Eyes Eyes: Denies blurry vision ENT ENT ED: Denies ear pain Cardiovascular Cardiovascular: Denies chest pain Respiratory/Chest Respiratory/Chest: Denies cough or dyspnea Gastrointestinal Gastrointestinal: Denies abdominal pain, constipation, diarrhea, melena, nausea or vomiting Genitourinary Genitourinary ED: Denies dysuria or hematuria Musculoskeletal Musculoskeletal: Denies arthralgias or back pain Integumentary Denies abscess Neurologic Neurologic: Reports headache(s); Denies paresthesias or weakness Psychiatric Psychiatric: Denies anxiety or depression Endocrine Endocrinology: Denies polydipsia Hematologic/Lymphatic Hematologic/Lymphatic: Denies easy bleeding or easy bruising Allergic/Immunologic Allergic/Immunologic ED: Denies mouth swelling, tongue swelling or urticaria EXAM Physical Exam Narrative Exam Narrative: 29-year-old female sitting upright in bed. Vital signs are stable afebrile. She does not look septic toxic no distress. H EENT exam pupils round react light. Eyes motions are intact. No facial droop. Normal speech. No facial or scalp trauma. Neck nontender. Trachea midline. Able to flex chin to chest. No meningismus. Back no reproducible back tenderness. Lungs clear to auscultation. Heart regular rhythm rate about 100 no murmur. Chest wall ribs nontender. Abdomen soft nontender. Gravid nontender uterus. Moving all 4 extremities. Normal conference assistant strength. Normal dorsi plantarflexion. Neurologic exam normal. NIH 0. Awake alert. Answer questions following commands. No focal motor weakness. Const Vital Signs: 06/07/25 21:15 06/07/25 22:47 Temperature 98.2 F Temperature Source Oral Pulse Rate 102 H 16 L Respiratory Rate 14 16 Blood Pressure 119/77 102/72 Blood Pressure Mean 91 82 Pulse Ox 100 98 Oxygen Delivery Method Room Air Room Air MDM MDM MDM Narrative Medical decision making narrative: 29-year-old female second trimester . With acute on chronic migraine headaches and chronic back pain. Should be treated with IV fluids, Benadryl and Compazine and reassess. Neurologic exam is normal. She has had prior negative CAT scans and MRI of her brain. She has chronic back pain from degenerative disc disease and is seen spine surgeons regarding that. Repeat exam around 11:10 PM patient's headache is resolving. She is still having acute on chronic back pain. She will be given 1 [place] prior to discharge. She is follow-up with her SCALEMAKER tomorrow. She has had prior imaging of her back that does show degenerative disc disease in the lumbar spine. She has no signs of cauda equina at this time. She understands I do not want to put her on narcotic therapy at home due to her . She is comfortable with the plan. History & Record Review Discussion w/independent historian: Patient Additional record(s) reviewed:: Prior inpatient record, Prior outpatient record, Prior ED visit and Prior labs Discharge Plan Triage Chief Complaint: Headache Other Complaint: Back ED Provider: Chris Miller Dx/Rx/DC Orders Clinical Impression: Headache, migraine, Second trimester , Chronic back pain, History of degenerative disc disease Instructions: ED Back Pain (Acute or Chronic), ED, Migraine (Classical) Prescriptions: No Action escitalopram oxalate 10 mg tablet 10 mg PO QDAY Qty: 30 1RF PNV no.95-ferrous fumarate-FA [] 28 mg iron- 800 mcg tablet 1 tab PO DAILY Primary Care Provider: Care Physician,No Primary Referrals: Carmelita Millan MD [Med Staff - Active Staff, Obstetrics-Gynecology (OBGYN)] - Keep Fidencio appointment Care Physician,No Primary [Primary Care Provider, Medical] Activity Restrictions/Additional Instructions: Plenty of fluids and rest. Tylenol for your headache. Caffeinated beverages. Follow-up with your SCALEMAKER as scheduled. Print Language: Austrian Disposition Disposition: Home, Self Care
[2025-06-07] MEDS: DiphenhydrAMINE 50 MG/ML Syringe IV (21:48)
--- OUTSIDE RECORDS SUMMARY | 2025-06-07 21:48 | XMS RPT_ITS | CCD ---
Author Organization [facility] Care Team Providers Care Hand Shaper Name Role Phone Dev Flannery IVMitzi Unavailable Unavailable Valery CUNNINGHAM.EDUCATION ADMINISTRATOR, DNP, Amaya Primary Care Provider Debby Reeves MD Primary Care Provider PHYSICIAN, NONE Primary Care Physician Unavailab Debby Madrigal MD Primary Care Provider Debby Reeves MD Primary Care Provider Thanh Marrero Unavailable Unavailable Dr. Joe Reeves Primary Care Provider [phone] Dr. Joe Reeves Referring Provider Ayden LOAN ADMINISTRATOR, CLAIRE-Jennifer Pratt Attending Provider Dr. Joe Reeves [...] Unavailable Keaton Tracy MD Primary Care Provider Demarcus EPPS, Keaton Samantha Primary Care Provider DEBBY HALE Attending Unava ilable PERDINA, KEATON R Primary Care Unavailable JUAN ELLIS MD Consulting Unavailable JUAN ELLIS MD Admitting Unavailable PHYSICIAN, NONE Primary Care Unavailable JUAN ELLIS MD Attending Unavailable LASLAVON BAXTER, MICHELE Consulting Unavailabl e PODWILLA GREENE Consulting Unavailable JUAN ELLIS MD Consulting Unavailable PHYSICIAN, NONE Primary Care Unavailable OWOC DO, DR TORI Hardy Attending Unavailabl e PHYSICIAN, NONE Primary Care Unavailable VERO HEATH MD Attending Unavail able PERDINA, KEATON R Primary Care Unavailable OWOC DO, DR TORI Hardy Attending Unavailabl e JUAN ELLIS MD Consulting Unavailable PHYSICIAN, NONE Primary Care Unavailable [...] Unavailable Keaton Tracy MD Primary Care Provider [phone] DEMARCUS KEATON SAMANTHA Primary Care Unavailable HONORIO FISHER Attending Unavailable PERALA, KEATON SAMANTHA Primary Care Unavailable ROSANNA RUIZ Attending Unavailable PERALA, KEATON SAMANTHA Primary Care Unavailable PERALA, KEATON SAMANTHA Primary Care Unavailable THANH MARRERO Attending Unavailable PERALA, KEATON R Primary Care Unavailable PERALA, KEATON R Attending Unavailable PERALA, KEATON R Primary Care Unavailable CANDICE OROZCO Referring Unavailable PERALA, KEATON R Primary Care Unavailable ANGELA HAQ Referring Unavailable CARMELITA MILLAN Attending Unavailable PERALA, KEATON R Primary Care Unavailable CARMELITA MILLAN Referring Unavailable PERALA, KEATON R Primary Care Unavailable PERALA, KEATON R Primary Care Unavailable HAISMAEL, CANDICE Attending Unavailable PERALA, KEATON R Primary Care Unavailable HAURY, CANDICE Referring Unavailable PERALA, KEATON R Primary Care Unavailable EUN, ANGELA Attending Unavailable PERALA, KEATON R Primary Care Unavailable HAURY, CANDICE Referring Unavailable PERALA, KEATON R Primary Care Unavailable CARMELITA MILLAN Attending Unavailable PERALA, KEATON R Primary Care Unavailable EUN, ANGELA Referring Unavailable PERALA, KEATON R Primary Care Unavailable PERALA, KEATON R Attending Unavailable PERALA, KEATON R Primary Care Unavailable EUN, ANGELA Attending Unavailable PERALA, KEATON R Primary Care [...] Unavailable PERALA, KEATON R Primary Care Unavailable Mai Wang Attending Unavailable Care Physician, No Primary Primary Care Unava ilable Care Physician, No Primary Primary Care Unava ilAdelita Levy Attending Unavailable Care Physician, No Primary Primary Care Unava ilable SkAliyah curtis Attending Unavailable Care Physician, No Primary Primary Care Unava ilable Aliyah Ontiveros Attending Unavailable Care Physician, No Primary Primary Care Unava ilable Aliyah Ontiveros Attending Unavailable Care Physician, No Primary Primary Care Unava ilable Care Physician, No Primary Referring Unava ilAdelita Levy Attending Unavailable Care Physician, No Primary Primary Care Unava ilable Aliyah Ontiveros Attending Unavailable Care Physician, No Primary Primary Care Unava ilable SkAliyah curtis Attending Unavailable Care Physician, No Primary Primary Care Unava ilable Care Physician, No Primary Referring Unava ilAdelita Levy Attending Unavailable Care Physician, No Primary Primary Care Unava ilable Care Physician, No Primary Referring Unava ilable Adelita Terry Attending Unavailable Care Physician, No Primary Primary Care Unava ilable Care Physician, No Primary Referring Unava ilAdelita Levy Attending Unavailable Jamal Hawley [facility], No Primary Primary Care Unava ilable Care Physician, No Primary Primary Care Unava ilable Gaetano Ríos Referring Unavailable Gaetano Ríos Attending Unavailable Care Physician, No Primary Primary Care Unava ilable Chris Miller Referring Unavailable Chris Miller Attending Unavailable Care Physician, No Primary Primary Care Unava ilable Granados, Nilay Attending Unavailable Care Physician, No Primary Primary Care Unava ilable Adelita Terry Attending Unavailable Care Physician, No Primary Primary Care Unava ilable Aliyah Ontiveros Attending Unavailable Care Physician, No Primary Referring [...] Referring Unava ilable Adelita Terry Attending Unavailable Allergies Allergy Classification Reported Allergen(s) Allergy Type Date of Onset Reaction(s) Facility (20 sources) Cetirizine; Translations: [CETIRIZINE HCL] Drug Allergy 6 Intolerance [facility] Work Phone: (20 sources) Cetirizine; Translations: [cetirizine] Drug Allergy 6 Shortness of breath, Palpitations, Other [facility] (1 source) Cetirizine Drug Allergy Other [facility] (2 sources) Cetirizine Drug Allergy 3 [facility] Repository Medications Current Medications Medication Drug Class(es) [...] every six hours for pain HYDROcodone-acet aminophen ([place]) 5-325 mg tablet Indications: Kidney stone Take 1 tablet by mouth every 6 hours if needed for severe pain (7 - 10). 20 tablet 11/06/2023 Active Start: 08-26-2023 take 1 tablet by evelina th every six hours as needed HYDROcodone-acetaminophen ([place]) 5-325 mg per tablet 1 tablet Start: 02-16-2023 End: 03-08-2023 take 1 tablet by mouth every four hours as needed Hydrocodone-Acetaminophen Discontinued 1 TABLET PO EVERY 4 HOURS NEEDED 7 February 16, 2023 March 08, 2023 12:18pm [...] Comment on above: Take 1 tablet by evelnia th twice daily for 5 days. amoxicillin [...] on above: Take 1 capsule by mo [facility] three times daily as needed for up [...] Comment on above: Take 1 tablet by [facility] three times daily as needed. calcium chloride [...] Comment on above: Take 1 tablet by [facility] once daily as needed (Anxiety). cyclobenzaprine hydrochloride [...] 01/29/2025 02/08/2025 Active 21 day ethinyl estradiol 0.620747 mg/hr / etonogestrel 0.005 mg/hr vaginal system [...] Active 600 MG PO EVERY 6 HOURS 30 May 10, 2023 11:00pm iv contrast (will [...] daily. 60 tablet 1 03/26/2025 Active levonorgestrel 0.435236 mg/hr intrauterine system (20 sources) Progestin, Progestin-containin [...] (20 sources) Central Nervous System Stimulant Start: End: take 1 capsule by mouth once daily [...] Discontinued Start: 03-08-2023 take 1 capsule by mo [facility] once daily Lisdexamfetamine (Vyvanse) 30 mg capsule [...] on above: Take 1 capsule by mo [facility] once daily for 14 days. Take 1 capsule by mo [facility] once daily for 30 days. magnesium oxide 420 mg oral tablet (20 sources) Start: 2 End: 3 take 1 tablet by mouth once daily Magnesium Oxide 420 mg tab Take 1 tablet by mouth once daily. 100 tablet 1 05/23/2022 10/18/2022 Discontinued (Other) Comment on above: Take 1 tablet by [facility] once daily. malathion 5 mg/ml topical lotion [...] oral tablet (20 sources) Muscle Relaxant Start: 3 End: 3 take 750 mg by mouth three times [...] (9 sources) Nonsteroidal Anti-inflammatory Drug Start: 01-30-20 25 take 1 tablet by mouth every eight [...] on above: Take 1 capsule by mo [facility] twice daily for 5 days. oxyCODONE hydrochloride [...] 0 Refill(s), 03/18/24 8:01:00 AM EDT, Pharmacy: [facility]/pharmacy #[id number], Post-op pain S/P laparoscopic appendectomy, 170.2, cm, 03/14/24 20:49:00 EDT, Height, 83.1, kg, 03/14/24 20:49:00 EDT, Dosing Weight Start Date: 03/15/24 Stop Date: 03/18/24 Status: Ordered Start: 11-06-2023 take 1 tablet by evelina every four hours as needed 5 mg, [...] Prednisone Discontinued 40 MG PO DAILY 10 5 February 15, 2023 11:00pm March 08, 2023 [...] Comment on above: Take 5 tablets by mo [facility] once daily for 1 day, THEN 4 tablets once daily for 1 day, THEN 3 tablets once daily for 1 day, THEN 2 tablets once daily for 1 day, THEN 1 tablet once daily for 1 day. Take 1 tablet by [facility] once daily for 10 days. 30 mg [...] Reductase Inhibitor Antibacterial, Sulfonamide Antimicrobial Start: End: 02-14-2 024 take 1 tablet by mouth twice daily [...] 1 tablet by evelina th once daily. prn Take 1 tablet (50 [...] (12 sources) Partial Cholinergic Nicotinic Agonist Start: 07-12-20 23 take 1 tablet by mouth twice daily [...] on above: Take 1 tablet by evelina three times daily. Completed/Discontinued Medications Medication Drug [...] Start: 07-14-2021 take 2 tablets by mo [facility] once daily Citalopram (Celexa) 10 mg Tablet Active 20 MG PO DAILY July 14, 2021 1:00am Comment on above: Take 1 tablet by [facility] once daily. For depression 1 ml dexamethasone phosphate 10 mg/ml injection (1 source) Corticosteroid Start: End: 8 mg, intravenous, Once, On Sun11/06/23 at 0715, For 1 dose, Preprocedure 12 hr dextromethorphan hydrobromide 30 mg / guaiFENesin 600 mg extended release oral tablet (20 sources) Uncompetitive E-ohbbvz-Y-aspartate Receptor Antagonist, Sigma-1 Agonist Start: End: take [...] Comment on above: Take 1 tablet by [facility] once daily for 28 days. escitalopram 5 mg oral tablet (20 sources) Serotonin Reuptake Inhibitor End: take 1 tablet by mouth once daily escitalopram oxalate (LEXAPRO) 5 mg tablet Take 5 mg by mouth once daily. 01/29/2025 Discontinued (Other) 2 ml famotidine 10 mg/ml injection (20 sources) Histamine-2 Receptor Antagonist Start: 024 End: 20 mg, intravenous, Once, On Sun11/06/23 at 0715, For 1 dose, Preprocedure Start: 03-21-2022 End: 03-10-2023 take 20 mg by mouth once daily Famotidine Discontinued 20 MG PO DAILY November 14, 2022 11:00pm March 08, 2023 12:18pm Comment on above: Take 1 tablet by [facility] at bedtime as needed. ferrous gluconate 324 [...] Comment on above: Take 1 capsule by [facility] once daily. Take 1 capsule by [facility] once daily for 14 days, THEN 2 [...] (4 sources) Opioid Agonist Start: 025 End: inject 4 mg by intramuscular injection once 4 mg, intramuscular, Once, On Sun11/18/24 at 2305, For 1 dose Start: 04-15-2024 End: 04-15-2024 4 mg, intravenous, Once, On Sun04/15/24 at 1645, For 1 dose Start: 08-26-2023 End: 08-26-2023 morphine injection 4 mg xlaarzvush-jqggcp-n-sali-men th (NUDROXIPAK N-500) 500 mg-0.025 %- 25 %-6 % kit (18 sources) End: 03-21-2022 orzlhhzgff-bwjtbo-s-sali-men th (NUDROXIPAK N-500) 500 mg-0.025 %- 25 %-6 % kit nabumetone-capsa f-l-szdg-menth (NUDROXIPAK N-500) 500 mg-0.025 %- 25 %-6 [...] Comment on above: Take 1 capsule by [facility] once daily. 2 ml ondansetron 2 mg/ml [...] 0 Refill(s), 03/28/24 6:05:00 PM EDT, Pharmacy: [id number], 170.2, cm, 03/14/24 20:49:00 [...] 5 nights. Then take 3 at night. Nmlqgwna-Djk-Ij-Fa ( 1) 1 mg Tablet (6 sources) Start: 10-28-2022 End: 03-08-2023 take 1 tablet by mouth once daily Ekvgvgqd-Tnk-Lh-Fa ( 1) 1 mg Tablet Discontinued 1 TABLET PO DAILY October 27, 2022 11:00pm March 08, 2023 12:18pm Start: 10-28-2022 End: 03-08-2023 take 1 tablet by mouth once daily Wljshnco-Ttb-Sa-Fa ( 1) 1 mg Tablet Discontinued 1 TABLET PO DAILY October 28, 2022 12:00am March 08, 2023 1:18pm Start: 10-28-2022 take 1 tablet by evelina th once daily Jyyzhdvf-Lfb-Mp-Fa ( 1) 1 mg Tablet Active 1 [...] Classification Problem Date Documented Da te Episodic/Chronic Anxiety disorders (20 sources) Panic attack; Translations: [...] insertion of intrauterine contraceptive device] 05-11-2023 Episodic Diabetes or abnormal glucose tolerance complicating ; childbirth; or the puerperium (20 sources) Abnormal glucose level; Translations: [Abnormal glucose complicating ] Onset: 3 Resolved: 3 Episodic Disorders of teeth and jaw (4 [...] [Encounter for screening for human papillomavirus (HPV)] Onset: 5 Episodic Lymphadenitis (3 sources) Lymphadenopathy; Translations: [Enlarged [...] (2 sources) Drug therapy finding; Translations: [Other chcf (current) drug therapy] 02-14-2023 Episodic Other and [...] 10-28-2022 Episodic Other complications of (1 source) Smoking (tobacco) complicating , unspecified trimester; Translations: [Tobacco use during , antepartum (HCC)] Onset: 5 Episodic Other complications of (1 source) Supervision of with other poor reproductive or obstetric history, unspecified trimester; Translations: [Hx of gestational diabetes in prior , currently (HCC)] Onset: 5 Episodic Other complications of (1 source) Supervision [...] conditions (not mental disorders or infectious disease) (10 sources) Cancer cervix screening status; Translations: [Encounter [...] other specified parts of digestive tract] Onset: 4 Episodic Residual codes; unclassified (1 source) Procedure not indicated; Translations: [Procedure and treatment not carried out for other reasons] 08-08-2024 Episodic Residual codes; unclassified (1 source) 14 weeks gestation of ; Translations: [14 weeks gestation of (HCC)] Onset: 5 Episodic Screening and history of mental health and substance abuse codes (20 sources) H/O: depression; Translations: [Personal history of other mental and behavioral disorders] Onset: 2 Resolved: 3 07-18-2021 Episodic Spondylosis; intervertebral disc disorders; other [...] disc between L4 and L5] Onset: 0 Unclassified (1 source) Other specified diseases and conditions complicating ; Translations: [Other specified diseases and conditions complicating ] Onset: 5 Urinary tract infections (3 sources) Urinary tract infectious disease; Translations: [Urinary tract infection, site not specified] 08-14-2022 Episodic Viral infection (5 sources) Viral disease; Translations: [Viral infection, unspecified] Onset: 3 Episodic Past or Other Problems Problem Classification Problem Date Documented Date Episodic/Chronic Abdominal pain (20 sources) Flank pain; Translations: [Unspecified abdominal pain] Onset: 09-24-2023 03-13-2023 Episodic Alcohol-related disorders (20 sources) History of alcohol [...] abnormal glucose] Onset: 11-06-2022 Resolved: 01-01-2023 Episodic Diseases of mouth; excluding [...] (20 sources) History of delivery of macrosomal infant; Translations: [Supervision of with other poor reproductive [...] or exam not indicated] Onset: 08-08-2024 Episodic Spondylosis; intervertebral disc disorders; other back problems (20 sources) Intractable low back pain; Translations: [Intractable low back pain] Onset: 04-27-2020 Resolved: 08-14-2022 04-28-2020 Episodic Superficial injury; contusion (4 sources) Contusion of lower back; Translations: [Contusion of lower back and pelvis, initial encounter] Onset: 11-18-2024 11-19-2024 Episodic Unclassified (12 sources) Onset: 01-31-2023 01-31-2023 Unclassified (1 source) Patient encounter status 02-10-2025 Results Test Name Value Interpretation Reference Range Facility CNCOon 05-13-2025 CNCO Letter Text Normal [facility] Emergency Department Summary on 05-09-2025 Emergency Department Summary [facility] Medical Records Department [address] [place] [id number] Emergency Department Summary 05/09/25 MR#: [id number] Acct: [id number] Name: FADUMO HENSLEY Rep #: [id number] : 1995 29 From: Mai Wang DO PCP: Care Physician,No Primary Status:DEP ER Location: ED HPI History of Present Illness Chief Complaint: Headache Informant: patient Narrative Narrative: Patient is 29-year-old female who is currently 14 weeks (follows with [facility]) with history of migraines presenting with migraine headache. States that started around 11 AM. States that her whole head was worse in the back of her head and into her neck. Has associated photophobia and a cloudlike feeling of her head. States this feels like her prior migraines. She took 2000 mg of Tylenol at 5 PM and that was milligrams of Tylenol PM at 8:55 PM with no relief which were puncture, the emergency room as she continued to have nausea and then after that. Denies any fever or chills. Denies any urinary symptoms. Denies any abnormal vaginal bleeding. 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 Denies any acute complications with the . No other complaints or concerns reported at this time. [facility] Medical History DDD (degenerative [...] Medications ???Medication ???Instructions ???Recorded ???Last Taken ???Type vit no.95-ferrous 1 tab PO DAILY 05/09/25 Unknown Hi story fumarate 28 mg-folic acid 800 mcg tablet () Allergy/AdvReac Type Severity Reaction Status Date / Time cetirizine (From [facility]) Allergy difficulty Verified 05/09/25 21:47 breathing, racing heart Family History Other Suicide Surgical History History of appendectomy Hx of wisdom tooth extraction Social History Smoking Status: Current some day smoker tobacco type: e-cigarettes alcohol intake: never details: Occasionally substance use type: does not use ROS ROS ED Constitutional Constitutional ED: Denies chills or fever(s) Eyes Eyes: Denies blurry vision or change in vision ENT ENT ED: Denies sore throat Cardiovascular Cardiovascular: Denies chest pain Respiratory/Chest Respiratory/Chest: Denies cough Gastrointestinal Gastrointestinal: Reports nausea and vomiting; Denies abdominal pain Genitourinary Genitourinary ED: Reports other Details: Denies any abnormal vaginal bleeding or leakage of fluids ; Denies dysuria or urinary frequency Musculoskeletal Musculoskeletal: Reports neck pain Integumentary Denies rash Neurologic Neurologic: Reports headache(s) Psychiatric Psychiatric: Reports anxiety EXAM Physical Exam Const Vital Signs: 05/09/25 21:48 05/09/25 23:38 Temperature 98.1 F 98.4 F Temperature Source Oral Pulse Rate 105 H 77 Respiratory Rate 18 16 Blood Pressure 126/75 H 125/88 H Blood Pressure Mean 92 100 Pulse Ox 96 100 Oxygen Delivery Method Room Air Positive well nourished and well developed General Appearance ED: well developed and NAD HEENT Reports normocephalic, TM's clear and moist mucous membranes atraumatic Tympanic Membrane ED: Yes TM's clear Eyes PERRL Neck no lymphadenopathy, supple and no meningeal signs Resp normal respiratory effort and clear to auscultation bilaterally Cardio regular rate and regular rhythm GI non-tender and non-distended Extremity normal to inspection Neuro oriented x3, CN's II-XII intact bilaterally and no sensory deficits noted Sensorium / Orientation: awake and alert Speech: speech normal Sensory Exam: No sensory level loss detected Motor Exam: strength 5/5 throughout Psych mental status grossly normal Skin Lesions: no lesions Rashes: no rashes MDM MDM MDM Narrative Medical decision making narrative: Patient evaluated for migraine headache. Has a history of this but is having a hard time treatment as she is and cannot take NSAIDs or Imitrex. Differential includes is not limited to tension headache, migraine headache, (more content not included)... Normal [facility] Bacteria Ur Culton Bacteria identified Cx Nom (U) ORGANISM ID: 1 10,000 -<50,000 CFU/ml Normal urogenital jojo Normal [facility] Comment on above: Performed By: #### 6 30-4 ####[facility] LABCLIA [id number] [place] [address] [place] C. trachomatis+N. gonorrhoea e DNA JESSICA+probe Ql (Unsp spec)on 05-08-2025 C. trachomatis rRNA JESSICA+probe Ql (Unsp spec) Not detected Normal Not detected [facility] Comment on above: Order Comment: Speci men Type: SWABOrdering Facility: [facility] Address: [address] [place] [address] Performed By: #### T RVAMP, 99879-1 ####[facility] LABCLIA [id number] [place] [address] [place] N. gonorrhoeae rRNA JESSICA+probe Ql (Unsp spec) Not detected Normal Not detected [facility] Comment on above: Order Comment: Speci men Type: SWABOrdering Facility: [facility] Address: [address] [place] [address] Performed By: #### T RVAMP, 15082-6 ####[facility] LABCLIA [id number] [place] [address] [place] CBC panel Auto (Bld)on 05-08 Erythrocyte distribution width (RBC) [Ratio] 12.7 % Normal 11.5-15.0 [facility] Comment on above: Order Comment: Speci men Type: BLOOD SPECIMENOrdering Facility: [facility] Address: [address] [place] [address] Performed By: #### 5 8410-2 ####[facility] [id number] [place] [address] [place] Hematocrit (Bld) [Volume fraction] 33.7 % Low 36.0-46.0 [facility] Comment on above: Order Comment: Speci men Type: BLOOD SPECIMENOrdering Facility: [facility] Address: [address] [place] [address] Performed By: #### 5 8410-2 ####[facility] [id number] [place] [address] [place] Hemoglobin (Bld) [Mass/Vol] 12.5 g/dL Normal 11.5-15.5 [facility] Comment on above: Order Comment: Speci men Type: BLOOD SPECIMENOrdering Facility: [facility] Address: [address] [place] [address] Performed By: #### 5 8410-2 ####[facility]CL[facility] [id number] [place] [address] [place] MCH (RBC) [Entitic mass] 31.1 pg Normal 26.0-34.0 [facility] Comment on above: Order Comment: Speci men Type: BLOOD SPECIMENOrdering Facility: [facility] Address: [address] [place] [address] Performed By: #### 5 8410-2 ####[facility]ENC[facility] [id number] [place] [address] [place] MCHC (RBC) [Mass/Vol] 37.1 g/dL High 30.5-36.0 [facility] Comment on above: Order Comment: Speci men Type: BLOOD SPECIMENOrdering Facility: [facility] Address: [address] [place] [address] Performed By: #### 5 8410-2 ####[facility] [id number] [place] [address] [place] MCV (RBC) [Entitic vol] 83.8 fL Normal 80.0-100.0 [facility] Comment on above: Order Comment: Speci men Type: BLOOD SPECIMENOrdering Facility: [facility] Address: [address] [place] [address] Performed By: #### 5 8410-2 ####[facility] [id number] [place] [address] [place] Nucleated RBC (Bld) [#/Vol] 10*3/uL Normal <0.01 [facility] Comment on above: Order Comment: Speci men Type: BLOOD SPECIMENOrdering Facility: [facility] Address: [address] [place] [address] Performed By: #### 5 8410-2 ####[facility] [id number] [place] [address] [place] Platelet mean volume (Bld) [Entitic vol] 9.5 fL Normal 9.0-12.7 [facility] Comment on above: Order Comment: Speci men Type: BLOOD SPECIMENOrdering Facility: [facility] Address: [address] [place] [address] Performed By: #### 5 8410-2 ####[facility] CRUZNCLIA [id number] [place] [address] [place] Platelets (Bld) [#/Vol] 293 10*3/uL Normal 150-400 [facility] Comment on above: Order Comment: Speci men Type: BLOOD SPECIMENOrdering Facility: [facility] Address: [address] [place] [address] Performed By: #### 5 8410-2 ####[facility] FARZADCREIGHTONNCLIA [id number] [place] [address] [place] RBC (Bld) [#/Vol] 4.02 10*6/uL Normal 3.90-5.20 [facility] Comment on above: Order Comment: Speci men Type: BLOOD SPECIMENOrdering Facility: [facility] Address: [address] [place] [address] Performed By: #### 5 8410-2 ####[facility] INSTITUTENCLIA [id number] [place] [address] [place] WBC (Bld) [#/Vol] 9.99 10*3/uL Normal 3.70-11.00 [facility] Comment on above: Order Comment: Speci men Type: BLOOD SPECIMENOrdering Facility: [facility] Address: [address] [place] [address] Performed By: #### 5 8410-2 ####[facility] INSTITUTENCLIA [id number] [place] [address] [place] Comprehensive metabolic 2000 panelon 05-08-2025 Albumin [Mass/Vol] 3.9 g/dL Normal 3.9-4.9 [facility] Comment on above: Order Comment: Speci men Type: BLOOD SPECIMENOrdering Facility: [facility] Address: [address] [place] [address] Performed By: #### 2 4323-8 ####[facility] MILLTOWNCLIA [id number] [place] [address] [place] ALP [Catalytic activity/Vol] 132 U/L High 34-123 [facility] Comment on above: Order Comment: Speci men Type: BLOOD SPECIMENOrdering Facility: [facility] Address: [address] [place] [address] Performed By: #### 2 4323-8 ####[facility] MILLTOWNCLIA [id number] [place] [address] [place] ALT [Catalytic activity/Vol] 22 U/L Normal 7-38 [facility] Comment on above: Order Comment: Speci men Type: BLOOD SPECIMENOrdering Facility: [facility] Address: [address] [place] [address] Performed By: #### 2 4323-8 ####[facility]ENTERWNCLIA [id number] [place] [address] [place] Anion gap [Moles/Vol] 11 mmol/L Normal 8-15 [facility] Comment on above: Order Comment: Speci men Type: BLOOD SPECIMENOrdering Facility: [facility] Address: [address] [place] [address] Performed By: #### 2 4323-8 ####[facility] MILLTOWNCLIA [id number] [place] [address] [place] AST [Catalytic activity/Vol] 19 U/L Normal 13-35 [facility] Comment on above: Order Comment: Speci men Type: BLOOD SPECIMENOrdering Facility: [facility] Address: [address] [place] [address] Performed By: #### 2 4323-8 ####[facility] MILLTOWNCLIA [id number] [place] [address] [place] Bilirubin [Mass/Vol] 0.9 mg/dL Normal 0.2-1.3 [facility] Comment on above: Order Comment: Speci men Type: BLOOD SPECIMENOrdering Facility: [facility] Address: [address] [place] [address] Performed By: #### 2 4323-8 ####[facility] INSTITUTENCLIA [id number] [place] [address] [place] Calcium [Mass/Vol] 9.3 mg/dL Normal 8.5-10.2 [facility] Comment on above: Order Comment: Speci men Type: BLOOD SPECIMENOrdering Facility: [facility] Address: [address] [place] [address] Performed By: #### 2 4323-8 ####[facility] [id number] [place] [address] [place] Chloride [Moles/Vol] 103 mmol/L Normal 98-107 [facility] Comment on above: Order Comment: Speci men Type: BLOOD SPECIMENOrdering Facility: [facility] Address: [address] [place] [address] Performed By: #### 2 4323-8 ####[facility] HOSPITALLIA [id number] [place] [address] [place] CO2 [Moles/Vol] 19 mmol/L Low 22-30 [facility] Comment on above: Order Comment: Speci men Type: BLOOD SPECIMENOrdering Facility: [facility] Address: [address] [place] [address] Performed By: #### 2 4323-8 ####[facility] [id number] [place] [address] [place] Creatinine [Mass/Vol] 0.49 mg/dL Low 0.58-0.96 [facility] Comment on above: Order Comment: Speci men Type: BLOOD SPECIMENOrdering Facility: [facility] Address: [address] [place] [address] Performed By: #### 2 4323-8 ####[facility] [id number] [place] [address] [place] eGFRcr SerPlBld CKD-EPI 2020 129 mL/min/1.73m??? Normal >=60 [facility] Comment on above: Order Comment: Gray men Type: BLOOD SPECIMENOrdering Facility: [facility] Address: [address] [place] [address] Result Comment: Jamila mated Glomerular Filtration Rate (eGFR) is calculated [...] reflect actual GFR. Performed By: #### 2 4323-8 ####[facility] [id number] [place] [address] [place] Glucose [Mass/Vol] 94 mg/dL Normal 74-99 [facility] Comment on above: Order Comment: Gray briones Type: BLOOD SPECIMENOrdering Facility: [facility] Address: [address] [place] [address] Result Comment: The Micronesian Diabetes Association (ADA) provides guidance for cutoff [...] Standards of Medical Care in Diabetes 2016, [place] Diabetes Association. Diabetes Care. 2016.39(Suppl 1). Performed By: #### 2 4323-8 ####[facility] MILLWNCLIA [id number] [place] [address] [place] Potassium [Moles/Vol] 3.9 mmol/L Normal 3.7-5.1 [facility] Comment on above: Order Comment: Speci men Type: BLOOD SPECIMENOrdering Facility: [facility] Address: [address] [place] [address] Performed By: #### 2 4323-8 ####[facility] HOSPITALLIA [id number] [place] [address] [place] Protein [Mass/Vol] 7.1 g/dL Normal 6.3-8.0 [facility] Comment on above: Order Comment: Speci men Type: BLOOD SPECIMENOrdering Facility: [facility] Address: [address] [place] [address] Performed By: #### 2 4323-8 ####[facility] [id number] [place] [address] [place] Sodium [Moles/Vol] 133 mmol/L Low 136-144 [facility] Comment on above: Order Comment: Speci men Type: BLOOD SPECIMENOrdering Facility: [facility] Address: [address] [place] [address] Performed By: #### 2 4323-8 ####[facility] HOSPITALLIA [id number] [place] [address] [place] Urea nitrogen [Mass/Vol] 5 mg/dL Low 7-21 [facility] Comment on above: Order Comment: Speci men Type: BLOOD SPECIMENOrdering Facility: [facility] Address: [address] [place] [address] Performed By: #### 2 4323-8 ####[facility] INSTITUTENCLIA [id number] [place] [address] [place] HBV surface Ag Ser Qlon 10-1 7-2025 HBV surface Ag Ql (S) Negative Normal Negative [facility] Comment on above: Order Comment: Speci men Type: BLOOD SPECIMENOrdering Facility: [facility] Address: [address] [place] [address] Performed By: #### 3 1201-7, 12116-1, 5195-3 ####[facility] LABCLIA [id number] [place] [address] [place] HCV Ab Ser Qlon 05-08-2025 HCV Ab Ql (S) Positive Abnormal Negative [facility] Comment on above: Order Comment: Speci men Type: BLOOD SPECIMENOrdering Facility: [facility] Address: [address] [place] [address] Performed By: #### 1 6128-1, 09278-7 ####[facility] LABCLIA [id number] [place] [address] [place] HCV RNA JESSICA+probe Qnon 05-08 HCV RNA JESSICA+probe Ql Not detected Normal Not detected [facility] Comment on above: Order Comment: Speci men Type: BLOOD SPECIMENOrdering Facility: [facility] Address: [address] [place] [address] Performed By: #### 1 6128-1, 84903-7 ####[facility] LABCLIA [id number] [place] [address] [place] HIGH RISK HUMAN PAPILLOMA OLIVE (HPV), PCR FOR DETECTION AND GENOTYPINGon 05-08-2025 HPV 16 Ag Ql (Unsp spec) Not detected Normal Not detected [facility] Comment on above: Order Comment: Speci men Type: FLUID SPECIMENOrdering Facility: [facility] Address: [address] [place] [address] Performed By: #### H PVHRT ####[facility] LABCLIA [id number] [place] [address] [place] HPV 18 Ag Ql (Unsp spec) Not detected Normal Not detected [facility] Comment on above: Order Comment: Speci men Type: FLUID SPECIMENOrdering Facility: [facility] Address: [address] [place] [address] Performed By: #### H PVHRT ####[facility] LABCLIA [id number] [place] [address] [place] HPV 31+33+35+39+45+51+52+5 6+58+59+66+68 DNA JESSICA+probe Ql (Cvx) Not detected Normal Not detected [facility] Comment on above: Order Comment: Speci men Type: FLUID SPECIMENOrdering Facility: [facility] Address: [address] [place] [address] Result Comment: High Risk HPV Other Type includes HPV types 31, 33, 35, 39, 45, 51, 52, 56, 58, 59, 66 and 68. Performed By: #### H PVHRT ####[facility] LABCLIA [id number] [place] [address] [place] HIV 1+2 Ab IA Qlon 5 HIV 1 and 2 Ab IA.rapid Nom (S/P/Bld) Normal [facility] Comment on above: Order Comment: Speci men Type: BLOOD SPECIMENOrdering Facility: [facility] Address: [address] [place] [address] Result Comment: Test not indicated. Performed By: #### 3 1201-7, 13128-8, 5195-3 ####[facility] LABCLIA [id number] [place] [address] [place] HIV 1+2 Ab+HIV1 p24 Ag IA Ql Non-Reactive Normal Nonreactive [facility] Comment on above: Order Comment: Speci men Type: BLOOD SPECIMENOrdering Facility: [facility] Address: [address] [place] [address] Performed By: #### 3 1201-7, 96238-2, 5195-3 ####[facility] LABCLIA [id number] [place] [address] [place] HIV immunoassay testing algorithm interpretation (S/P/Bld) [Interp] Normal [facility] Comment on above: Order Comment: Speci men Type: BLOOD SPECIMENOrdering Facility: [facility] Address: [address] [place] [address] Result Comment: No e vidence of HIV-1 or HIV-2 infection. Should recent infection be suspected, repeat testing may be considered 2-3 weeks after this draw. [place] Rev. Code 3701.243(E): This information has been disclosed to you from confidential records protected from disclosure by state law. You shall make no further disclosure of this information without the specific, written, and informed release of the individual to whom it pertains or as otherwise permitted by state law. A general authorization for the release of medical or other information is not sufficient for the purpose of the release of HIV test results or diagnoses. Performed By: #### 3 1201-7, 15525-6, 5195-3 ####[facility] LABCLIA [id number] [address] [place] HbA1c (Bld)on 05-08-2025 Average glucose Estimated from glycated hemoglobin (Bld) [Mass/Vol] 74 mg/dL Normal [facility] Comment on above: Order Comment: Gray briones Type: BLOOD SPECIMENOrdering Facility: [facility] Address: [address] [place] [address] Result Comment: eAG: (Estimated average glucose) is a calculated value from HgbA1c and is indirect sales representative of the average blood glucose level in the last 2-3 month period. Performed By: #### 5 5454-3 ####[facility] LABCLIA [id number] [address] [place] [facility] HbA1c (Bld) [Mass fraction] 4.2 % Low 4.3-5.6 [facility] Comment on above: Order Comment: Gray briones Type: BLOOD SPECIMENOrdering Facility: [facility] Address: [address] [place] [address] Result Comment: Amer ican Diabetes Association guidelines indicate that patients with HgbA1c in the range 5.7-6.4% are at increased risk for development of diabetes, and intervention by lifestyle modification may be beneficial. HgbA1c greater or equal to 6.5% is considered diagnostic of diabetes. Performed By: #### 5 5454-3 ####[facility] LABCLIA [id number] [place] [address] [place] [id number] PLUSon 05-08-2025 Cell-free DNA./Cell-free DNA.total Dosage of chromosome-specific cfDNA (cfDNA) [Molar fraction] 18% Normal [facility] Comment on above: Order Comment: Speci men Type: BLOOD SPECIMENOrdering Facility: [facility] Address: [address] [place] [address] Performed By: #### M AT21 ####[facility] LABCLIA [id number] [place] [address] Chr 13+18+21+X+Y aneuploidy Dosage of chromosome-specific cfDNA Ql (cfDNA) Negative Normal [facility] Comment on above: Order Comment: Speci men Type: BLOOD SPECIMENOrdering Facility: [facility] Address: [address] [place] [address] Performed By: #### M AT21 ####[facility] LABCLIA [id number] [place] [address] Chr 21 trisomy Dosage of chromosome-specific cfDNA Ql (cfDNA) Negative Normal [facility] Comment on above: Order Comment: Speci men Type: BLOOD SPECIMENOrdering Facility: [facility] Address: [address] [place] [address] Performed By: #### M AT21 ####[facility] LABCLIA [id number] [place] [address] Chr X and Y aneuploidy risk Sequencing Ql (cfDNA) [Interp] Not detected Normal [facility] Comment on above: Order Comment: Speci men Type: BLOOD SPECIMENOrdering Facility: [facility] Address: [address] [place] [address] Result Comment: Not Detected Not Detected Performed By: #### M AT21 ####[facility] LABCLIA [id number] [place] [address] Citation Richard (Reference lab test) Comment Normal [facility] Comment on above: Order Comment: Gray briones Type: BLOOD SPECIMENOrdering Facility: [facility] Address: [address] [place] [address] Result Comment: 1. P matthew FALCON, et al. Ingrid Med. 2012;14(3):296-305. 2. Cindy PORTILLO et al. Prenat Diag. 2013;33(6):591-597. 3. Soren C, et al. Clin Chem. 2015 Apr;61(4):608-616. 4. Lori FALCON et al. Ingrid Med. 2011;13(11):913-920. 5. ACOG/SMFM Practice Bulletin No. 226, Apr 2020. Performed By: #### M AT21 ####[facility] LABCLIA [id number] [place] [address] Gestational age Estimated from conception date Giraldo Normal [facility] Comment on above: Order Comment: Gray briones Type: BLOOD SPECIMENOrdering Facility: [facility] Address: [address] [place] [address] Performed By: #### M AT21 ####[facility] LABCLIA [id number] [place] [address] GESTATIONALAGE AGE > OR = 9W Yes Normal [facility] Comment on above: Order Comment: Gray briones Type: BLOOD SPECIMENOrdering Facility: [facility] Address: [address] [place] [address] Performed By: #### M AT21 ####[facility] LABCLIA [id number] [place] [address] Laboratory comment Richard (Report) Comment Normal [facility] Comment on above: Order Comment: Gray briones Type: BLOOD SPECIMENOrdering Facility: [facility] Address: [address] [place] [address] Result Comment: The MaterniT(R) 21 PLUS laboratory-developed test (LDT) analyzes circulating cell-free DNA from a maternal blood sample. This test is used for screening purposes and not diagnostic. Clinical correlation is recommended. Validation data on twin pregnancies is limited and the ability of this test to detect aneuploidy in higher multiple gestations has not yet been validated. Performed By: #### M AT21 ####[facility] LABCLIA [id number] [place] [address] emerging technologies director name Nom (Provider) Comment Normal [facility] Comment on above: Order Comment: Gray briones Type: BLOOD SPECIMENOrdering Facility: [facility] Address: [address] [place] [address] Result Comment: This specimen showed an expected representation of chromosome 21, 18 and 13 material. Clinical correlation is suggested. Comment Jos Delgado MD, PhD, Director, [facility] Performed By: #### M AT21 ####[facility] LABCLIA [id number] [place] [address] LIMITATIONS OF THE TEST Comment Normal [facility] Comment on above: Order Comment: Gray briones Type: BLOOD SPECIMENOrdering Facility: [facility] Address: [address] [place] [address] Result Comment: Mallory trimble the results of these tests are highly reliable, discordant results, including inaccurate sex prediction, may occur due to placental, maternal, or mosaicism or neoplasm; vanishing twin; prior maternal organ transplant; or other causes. These tests are screening tests and not diagnostic; they do not replace the accuracy and precision of diagnosis with CVS or amniocentesis. A patient with a positive test result should be referred for genetic counseling and offered invasive diagnosis for confirmation of test results.[5] The results of this testing, including the benefits and limitations, should be discussed with a qualified healthcare provider. management decisions, including termination of the , should not be based on the results of these tests alone. The healthcare provider is responsible for the use of this information in the management of their patient. Sex chromosomal aneuploidies are not reportable for known multiple gestations. A negative result does not ensure an unaffected nor does it exclude the possibility of other chromosomal abnormalities or defects which are not a part of these tests. An uninformative result may be reported, the causes of which may include, but are not limited to, insufficient sequencing coverage, noise or artifacts in the region, amplification or sequencing bias, or insufficient fraction. These tests are not intended to identify pregnancies at risk for neural tube defects or ventral wall defects. Testing for whole chromosome abnormalities (including sex chromosomes) and for subchromosomal abnormalities could lead to the potential discovery of both and maternal genomic abnormalities that could have major, minor, or no, clinical significance. Evaluating the significance of a positive or a non-reportable result may involve both invasive testing and additional studies on the mother. Such investigations may lead to a diagnosis of maternal chromosomal or subchromosomal abnormalities, which on occasion may be associated with benign or malignant maternal neoplasms. These tests may not accurately identify triploidy, balanced rearrangements, or the precise location of subchromosomal duplications or deletions; these may be detected by diagnosis with CVS or amniocentesis. The ability to report results may be impacted by maternal BMI, maternal weight, maternal systemic lupus erythematosus (SLE) and/or by certain pharmaceutical agents such as low molecular weight heparin (for example: Lovenox(R), Xaparin(R), Clexane(R) and Fragmin(R)). Performed By: #### M AT21 ####Second GenomeIA [id number] [place] [address] Monosomy X risk Dosage of chromosome-specific cfDNA Ql (Plasma cell-free+WBC DNA) [Interp] Not detected Normal [facility] Comment on above: Order Comment: Speci men Type: BLOOD SPECIMENOrdering Facility: [facility] Address: [address] [place] [address] Performed By: #### M AT21 ####[facility] LABCLIA [id number] [place] [address] NEGATIVE PREDICTIVE VALUE Note Normal [facility] Comment on above: Order Comment: Speci men Type: BLOOD SPECIMENOrdering Facility: [facility] Address: [address] [place] [address] Result Comment: The Negative Predictive Value (NPV) for trisomy 21, 18, and 13 is greater than 99%. The NPV for SCA and ESS cannot be calculated as SCA and ESS are only reported when an abnormality is detected. Performed By: #### M AT21 ####[facility] LABCLIA [id number] [place] [address] PERFORMANCE CHARACTERISTICS Note Normal [facility] Comment on above: Order Comment: Gray briones Type: BLOOD SPECIMENOrdering Facility: [facility] Address: [address], [place] [address] Result Comment: ! Sex ! Accuracy: 99.4% ! ! ! ! Region (associated syndrome) ! Est. Sens# ! Est. Spec ! ! ! ! Trisomy 21 (Down Syndrome) ! 99.1% ! 99.9% ! ! ! ! Trisomy 18 (Cruz Syndrome) ! >99.9% ! 99.6% ! ! ! ! Trisomy 13 (Patau Syndrome) ! 91.7% ! 99.7% ! ! ! ! Sex Chromosome Aneuploidies## ! 96.2% ! 99.7% ! ! ! * As reported in [facility] database nstd37 [https://www.ncbi.nlm.nih.gov/dbvar/studies/nstd37/ ] # Estimated Sensitivity. Sensitivity estimated across the observed size distribution of each syndrome [per [employer] database nstd37] and across the range of fractions observed in routine clinical NIPT. Actual sensitivity can also be influenced by other factors such as the size of the event, total sequence counts, amplification bias, or sequence bias. ## Giraldo gestation only. Performed By: #### M AT21 ####[facility] LABCLIA [id number] [place] [address] POSITIVE PREDICTIVE VALUE N/A Normal [facility] Comment on above: Order Comment: Gray briones Type: BLOOD SPECIMENOrdering Facility: [facility] Address: [address] [place] [address] Performed By: #### M AT21 ####[facility] LABCLIA [id number] [place] [address] Reference Lab Test Method Comment Normal [facility] Comment on above: Order Comment: Gray briones Type: BLOOD SPECIMENOrdering Facility: [facility] Address: [address] [place] [address] Result Comment: Circ ulating cell-free DNA was purified from the plasma component of maternal blood. The extracted DNA was then converted into a genomic DNA library for aneuploidy analysis of chromosomes 21, 18, and 13 via next generation sequencing.[1] Optional findings based on the test order include sex chromosome aneuploidy (SCA)[2], and enhanced sequencing series (ESS)[3], which will only be reported on as an additional finding when an abnormality is detected. SCA testing includes information on X and Y representation, while ESS testing includes deletions in selected regions (22q, 15q, 11q, 8q, 5p, 4p, 1p) and trisomy of chromosomes 16 and 22. Performed By: #### M AT21 ####[facility] LABCLIA [id number] [place] [address] Service comment (Unsp spec) [Interp] Comment Normal [facility] Comment on above: Order Comment: Speci men Type: BLOOD SPECIMENOrdering Facility: [facility] Address: [address] [place] [address] Result Comment: [email or web address] is a subsidiary of [employer], using the brand [employer]. This test was developed and its performance characteristics determined by [employer]. It has not been cleared or approved by the Food and Drug Administration. This laboratory is certified under the Clinical Laboratory Improvement Amendments (CLIA) as qualified to perform high complexity clinical laboratory testing and accredited by the College of Micronesian [employer]ologists (CAP). If there is future clinical need for adding MaterniT GENOME testing, this specimen will be available until term. [facility] samples will not be retained beyond 60 days. [facility] patients will have to send a new sample for re-sequencing ([facility] Test Code: [id number]). Performed By: #### M AT21 ####[facility] LABCLIA [id number] [place] [address] Sex Dosage of chromosome-specific cfDNA Nom (cfDNA) Comment Normal [facility] [facility] Comment on above: Order Comment: Speci men Type: BLOOD SPECIMENOrdering Facility: [facility] Address: [address] [place] [address] Result Comment: Cons istent with Female Performed By: #### M AT21 ####[facility] LABCLIA [id number] [place] [address] Test performance information Richard (Unsp spec) Comment Normal [facility] Comment on above: Order Comment: Speci men Type: BLOOD SPECIMENOrdering Facility: [facility] Address: [address] [place] [address] Result Comment: The performance characteristics of the MaterniT(R) 21 PLUS laboratory-developed test (LDT) have been determined in a clinical validation study with women at increased risk for chromosomal aneuploidy.[1-4] Performed By: #### M AT21 ####[facility] LABCLIA [id number] [place] [address] Trisomy 13 risk Dosage of chromosome-specific cfDNA Ql (cfDNA) [Interp] Negative Normal [facility] Comment on above: Order Comment: Speci men Type: BLOOD SPECIMENOrdering Facility: [facility] Address: [address] [place] [address] Performed By: #### M AT21 ####[facility] LABCLIA [id number] [place] [address] Trisomy 18 risk Dosage of chromosome-specific cfDNA Ql (Plasma cell-free+WBC DNA) [Interp] Negative Normal [facility] Comment on above: Order Comment: Speci men Type: BLOOD SPECIMENOrdering Facility: [facility] Address: [address] [place] [address] Performed By: #### M AT21 ####[facility] LABCLIA [id number] [place] [address] PAP TESTon 05-08-2025 ADEQUACY Normal [facility] Comment on above: Order Comment: Speci men Type: FLUID SPECIMENOrdering Facility: [facility] Address: [address] [place] [address] Result Comment: Sati sfactory for interpretation. No endocervical component Performed By: #### L [id number] ####[facility] LABCLIA [id number] [place] [address] [place] CASE REPORT Normal [facility] Comment on above: Order Comment: Speci men Type: FLUID SPECIMENOrdering Facility: [facility] Address: [address] [place] [address] Result Comment: Gyne cologic Cytology Report Case: [id number] Authorizing Provider: Angela Haq APRN.EDUCATION ADMINISTRATOR Collected: 05/08/2025 04:18 PM Ordering Location: OB/Gynecology Received: 05/08/2025 05:02 PM First Screen: Lucia, Azul, CT, ASCP Rescreen: Gersey, Fabiola, CT, ASCP Specimen: Pap Test, ThinPrep, Cervix Performed By: #### L [id number] ####[facility] LABCLIA [id number] [place] [id number] [place] CLINICAL HISTORY, CYTOLOGY, BOILER WASHER Routine Exam Normal [facility] Comment on above: Order Comment: Speci men Type: FLUID SPECIMENOrdering Facility: [facility] Address: [address] [place] [address] Performed By: #### L [id number] ####[facility] LABCLIA [id number] [place] [address] [place] FINAL PERFORMING LAB Normal [facility] Comment on above: Order Comment: Speci men Type: FLUID SPECIMENOrdering Facility: [facility] Address: [address] [place] [address] Result Comment: Tech nical component, police officer crime prevention screening performed at: [facility], [address] [place] [address] CLIA: [id number] Diagnostic interpretation performed at: [facility], [address] [place] [address] CLIA# [id number] Water Supply Technician: Donavon Chin MD Performed By: #### L [id number] ####[facility] LABCLIA [id number] [place] [address] [place] INTERPRETATION, CYTOLOGY, BOILER WASHER Normal [facility] Comment on above: Order Comment: Speci men Type: FLUID SPECIMENOrdering Facility: [facility] Address: [address] [place] [address] Result Comment: Nega tive for intraepithelial lesion or malignancy. at 1352 EDT Performed By: #### L [id number] ####[facility] LABCLIA [id number] [place] [address] [place] LMP 01/27/2025 Normal [facility] Comment on above: Order Comment: Speci men Type: FLUID SPECIMENOrdering Facility: [facility] Address: [address] [place] [address] Performed By: #### L [id number] ####[facility] LABCLIA [id number] [place] PAP DISCLAIMER COMMENT The Pap Smear is a screening test for cervical cancer. False negative results occur with all screening tests, emphasizing the need for rescreening at recommended intervals, and clinical correlation. Normal [facility] Comment on above: Order Comment: Speci men Type: FLUID SPECIMENOrdering Facility: [facility] Address: [address] [place] [address] Performed By: #### L [id number] ####[facility] LABCLIA [id number] [place] [id number] [facility] [place] PAP RENEWALS SPECIALIST COMMENT This specimen has be en analyzed by the FDA-approved JumpLinc System, which uses digital imaging and an enhanced artificial intelligence image analysis algorithm to identify fritz of interest on the microscopic slide, to assist the insurance investigator and pathologist in evaluating cells on ThinPrep Pap tests. Following analysis, fritz of interest on the microscopic slide selected by the algorithm are reviewed by a insurance investigator. If a sample requires hierarchical review, the pathologist will review the same fritz of interest selected by the algorithm prior to final interpretation. Normal [facility] Comment on above: Order Comment: Speci men Type: FLUID SPECIMENOrdering Facility: [facility] Address: [address] [place] [address] Performed By: #### L [id number] ####[facility] LABIA [id number] [place] [id number] [place] Prot/Creat Uron 05-08-2025 Protein/Creatinine (U) [Mass ratio] 0.07 mg/mg Normal <0.15 [facility] Comment on above: Order Comment: Speci men Type: URINE SPECIMENOrdering Facility: [facility] Address: [address] [place] [address] Result Comment: Adul t Proteinuria Categories: <0.15 mg/mg is considered normal to mildly increased 0.15 - 0.50 mg/mg is considered moderately increased >0.50 mg/mg is considered severely increased KDIGO. (2013). KDIGO 2012 Clinical Practice Guideline for the Evaluation and Management of Chronic Kidney Disease. Official Journal of the International Society of Nephrology, 3(1), 1-150. Performed By: #### 2 890-2 ####[facility] LABCLIA [id number] [place] [id number] [place] Protein/Creatinine (U) [Mass ratio]on 05-08-2025 Creatinine (U) [Mass/Vol] 88.0 mg/dL Normal 20.0-300.0 [facility] Comment on above: Order Comment: Speci men Type: URINE SPECIMENOrdering Facility: [facility] Address: [address] [place] [address] Performed By: #### 2 890-2 ####[facility] LABIA [id number] [place] [id number] [place] Protein (U) [Mass/Vol] 6 mg/dL Normal 0-20 [facility] Comment on above: Order Comment: Speci men Type: URINE SPECIMENOrdering Facility: [facility] Address: [address] [place] [address] Performed By: #### 2 890-2 ####[facility] LABIA [id number] [place] [address] [place] RUBELLA IGG ANTIBODYon 05-08 RUBELLA IGG AB, QUAL Positive Normal Positive [facility] Comment on above: Order Comment: Speci men Type: BLOOD SPECIMENOrdering Facility: [facility] Address: [address] [place] [address] Result Comment: The result suggests recent or past exposure to Rubella virus or history of Rubella vaccination. Positive result may also be seen due to presence of passively-transferred antibodies. Please correlate with patient's history. Performed By: #### R UBIGG ####[facility] LABCLIA [id number] [place] [address] [place] Reagin and Treponema pallidu m IgG and IgM [Interp]on 05-08-2025 T. pallidum IgG+IgM IA Ql (S) Non-Reactive Normal Nonreactive [facility] Comment on above: Order Comment: Speci men Type: BLOOD SPECIMENOrdering Facility: [facility] Address: [address] [place] [address] Performed By: #### 3 1201-7, 66693-6, 5195-3 ####[facility] LABCLIA [id number] [place] [address] [place] Reagin+T pallidum IgG+IgM Se rPl-Impon 05-08-2025 Reagin and Treponema pallidum IgG and IgM [Interp] Cannot exclude recent Treponemal infection if specimen collected within 7-10 days after appearance of suspect lesions or 2-3 weeks after an exposure. Clinical correlation is required. Normal [facility] Comment on above: Order Comment: Speci men Type: BLOOD SPECIMENOrdering Facility: [facility] Address: [address] [place] [address] Performed By: #### 3 1201-7, 96646-9, 5195-3 ####[facility] LABCLIA [id number] [place] [address] [place] TRICHOMONAS VAGINALIS NAATon 05-08-2025 T. vaginalis DNA JESSICA+probe Ql (Unsp spec) Not detected Normal Not detected [facility] Comment on above: Order Comment: Speci men Type: SWABOrdering Facility: [facility] Address: [address] [place] [address] Performed By: #### T RVAMP, 33996-1 ####[facility] LABCLIA [id number] [place] [address] [place] TSH SerPl-aCncon 05-08-2025 TSH Qn 0.451 m[IU]/L Normal 0.270-4.200 [facility] Comment on above: Order Comment: Speci men Type: BLOOD SPECIMENOrdering Facility: [facility] Address: [address] [place] [address] Result Comment: If t he patient is , TSH reference range varies by gestational period: First Trimester (weeks 9-12): 0.180-2.990 mIU/L Second Trimester: 0.110-3.980 mIU/L Third Trimester: 0.480-4.710 mIU/L Jonny Hardy et al. A Practical Approach for the Verifications and Determination of Site- and Trimester-Specific Reference Intervals for Thyroid Function tests in . Thyroid, 2019:29:3:412-420. Annamarie Trimble, et al. 2017 Guidelines of the [place] Thyroid Association for the Diagnosis and Management of Thyroid Disease during and the . Thyroid, 2017:27:3:315-389. Performed By: #### 3 016-3 ####[facility] LABCLIA [id number] [place] [address] [facility] TYPE + SCREEN PRENATALon ABO A Normal [facility] Comment on above: Order Comment: Gray briones Type: BLOOD SPECIMENOrdering Facility: [facility] Address: [address] [place] [address] Performed By: #### T SPN ####[facility] LABCLIA [id number] [address] Rh Nom (Bld) Positive Normal [facility] Comment on above: Order Comment: Gray briones Type: BLOOD SPECIMENOrdering Facility: [facility] Address: [address] [place] [address] Performed By: #### T SPN ####[facility] LABCLIA [id number] [place] [id number] [facility] TYPE AND SCREEN EXPIRATION 05/11/2025 23:59 Normal [facility] Comment on above: Order Comment: Gray briones Type: BLOOD SPECIMENOrdering Facility: [facility] Address: [address] [place] [address] Performed By: #### T SPN ####[facility] LABCLIA [id number] [place] [address] [facility] CNPMulu 05-05-2025 CNPN Telephone (OBGYWM) AYDENFADUMO Hadry ([id number]) 1995 F Date Time Provider Department 05/05/25 ANGELA HAQ During your visit today, we [...] this medication [facility] Lamot[facility]ine 50mg once day Idania Loco [...] Encounter Status:Closed by MARLON CORTEZ on 05/05/25 [facility] MR/BMS.BPon 04-24-2025 MR/BMS.BP [address], [address] [place] [id number] OFFICE VISIT Date of Service: 04/24/25 MR#: [id number] Acct: [id number] Name: FADUMO HENSLEY Rep #: [id number] : 1995 Provider: DIOGENES head Age/Sex: 29/F Location: [facility].BPV Status: Signed Intake Vital Signs 03/27/25 15:13 04/24/25 10:59 Height 5 ft 6 in 5 ft 6 in BP Intake Visit Reasons: Follow up Allergies cetirizine (From [facility]) Allergy (Verified 11/10/24 22:50) difficulty breathing, racing heart [facility] Medical History DDD (degenerative disc [...] Attention defic (more content not included)... Normal [facility] Basic metabolic 2000 panelon 04-21-2025 Anion gap [Moles/Vol] 11 mmol/L 10 - 2 0 mmol/L [facility] Calcium [Mass/Vol] 8.8 mg/dL 8.6 - 10. 3 mg/dL [facility] Chloride [Moles/Vol] 106 mmol/L 98 - 10 7 mmol/L [facility] CO2 [Moles/Vol] 22 mmol/L 21 - 32 mmol/L [facility] Creatinine [Mass/Vol] 0.41 mg/dL Low 0.50 - 1.05 mg/dL [facility] eGFR - PINF [facility] Comment on above: Calculations of jamila mated GFR are performed using the 2020 CKD-EPI Study Refit equation without the race variable for the IDMS-Traceable creatinine methods. https://jasn.asnjournals.org/content//ASN.55601 17886 Glucose [Mass/Vol] 91 mg/dL 74 - 99 mg/dL [facility] Interpretation and review of laboratory results Abnormal [facility] Potassium [Moles/Vol] 3.9 mmol/L 3.5 - 5.3 mmol/L [facility] Sodium [Moles/Vol] 135 mmol/L Low 136 - 145 mmol/L [facility] Urea nitrogen [Mass/Vol] 10 mg/dL 6 - 23 mg/dL [facility] Anion gap [Moles/Vol] 11 mmol/L Normal 10-20 [facility] Comment on above: Performed By: #### 2 4321-2 #### GELY DENNISON ([id number]) [facility] ([facility]) [address] [place] [address] Calcium [Mass/Vol] 8.8 mg/dL Normal 8.6-10.3 [facility] Comment on above: Performed By: #### 2 4321-2 #### GELY DENNISON ([id number]) [facility] ([facility]) [address] [place] [address] Chloride [Moles/Vol] 106 mmol/L Normal 98-107 [facility] Comment on above: Performed By: #### 2 4321-2 #### GELY DENNISON ([id number]) [facility] ([facility]) [address] [place] [address] CO2 [Moles/Vol] 22 mmol/L Normal 21-32 [facility] Comment on above: Performed By: #### 2 4321-2 #### GELY DENNISON ([id number]) [facility] ([facility]) [address] [place] [address] Creatinine [Mass/Vol] 0.41 mg/dL Low 0.50-1.05 [facility] Comment on above: Performed By: #### 2 4321-2 #### GELY DENNISON ([id number]) [facility] ([facility]) [address] [place] [address] Glomerular filtration rate >90 Normal >60 [facility] Comment on above: Result Comment: Calc ulations of estimated GFR are performed using the 2020 CKD-EPI Study Refit equation without the race variable for the IDMS-Traceable creatinine methods. https://jasn.asnjournals.org/content/early//ASN.73356 07013 Performed By: #### 2 4321-2 #### GELY DENNISON ([id number]) [facility] ([facility]) [address] [place] [address] Glucose [Mass/Vol] 91 mg/dL Normal 74-99 [facility] Comment on above: Performed By: #### 2 4321-2 #### GELY DENNISON ([id number]) [facility] ([facility]) [address] [place] [address] Potassium [Moles/Vol] 3.9 mmol/L Normal 3.5-5.3 [facility] Comment on above: Performed By: #### 2 4321-2 #### GELY DENNISON ([id number]) [facility] ([facility]) [address] [place] [address] Sodium [Moles/Vol] 135 mmol/L Low 136-145 [facility] Comment on above: Performed By: #### 2 4321-2 #### GELY DENNISON ([id number]) [facility] ([facility]) [address] [place] [address]70[address] Urea nitrogen [Mass/Vol] 10 mg/dL Normal 6-23 [facility] Comment on above: Performed By: #### 2 4321-2 #### GELY DENNISON ([id number]) [facility] ([facility]) [address] [place] [address] 19531 CBC W Auto Differential pane l (Bld)on 04-21-2025 Basophils (Bld) [#/Vol] 0.02 10*3/uL [facility] Basophils/100 WBC (Bld) 0.2 % 0.0 - 2.0 % [facility] Eosinophils (Bld) [#/Vol] 0.13 10*3/uL [facility] Eosinophils/100 WBC (Bld) 1.2 % 0.0 - 6.0 % [facility] Erythrocyte distribution width (RBC) [Ratio] 11.6 % 11.5 - 14.5 % [facility] Hematocrit (Bld) [Volume fraction] 33.5 % Low 36.0 - 46.0 % [facility] Hemoglobin (Bld) [Mass/Vol] 11.9 g/dL Low 12.0 - 16.0 g/dL [facility] Immature granulocytes (Bld) [#/Vol] 0.05 10*3/uL [facility] Immature granulocytes/100 WBC (Bld) 0.5 % 0.0 - 0.9 % [facility] Comment on above: Immature Granulocyte Count (IG) includes promyelocytes, myelocytes and metamyelocytes but does not include bands. Percent differential counts (%) should be interpreted in the context of the absolute cell counts (cells/UL). Interpretation and review of laboratory results Abnormal [facility] Lymphocytes (Bld) [#/Vol] 2.83 10*3/uL [facility] Lymphocytes/100 WBC (Bld) 27.1 % 13.0 - 44.0 % [facility] MCH (RBC) [Entitic mass] 30.3 pg 26.0 - 34.0 pg [facility] MCHC (RBC) [Mass/Vol] 35.5 g/dL 32.0 - 36.0 g/dL [facility] MCV (RBC) [Entitic vol] 85 fL 80 - 100 fL [facility] Monocytes (Bld) [#/Vol] 0.76 10*3/uL [facility] Monocytes/100 WBC (Bld) 7.3 % 2.0 - 10.0 % [facility] Neutrophils (Bld) [#/Vol] 6.67 10*3/uL [facility] Comment on above: Percent differential counts (%) should be interpreted in the context of the absolute cell counts (cells/uL). Neutrophils/100 WBC (Bld) 63.7 % 40.0 - 80.0 % [facility] Nucleated RBC/100 WBC (Bld) [Ratio] 0.0 % [facility] Platelets (Bld) [#/Vol] 283 10*3/uL [facility] RBC (Bld) [#/Vol] 3.93 10*6/uL [facility] WBC (Bld) [#/Vol] 10.5 10*3/uL [facility] Basophils (Bld) [#/Vol] 0.02 x10*3/uL Normal 0.00-0.10 [facility] Comment on above: Performed By: #### 5 7021-8 #### GELY DENNISON ([id number]) [facility] ([facility]) [address] [place] [address] 18840 Basophils/100 WBC (Bld) 0.2 % Normal 0.0-2.0 [facility] Comment on above: Performed By: #### 5 7021-8 #### GELY DENNISON ([id number]) [facility] ([facility]) [address] [place] [address] 92155 Eosinophils (Bld) [#/Vol] 0.13 x10*3/uL Normal 0.00-0.70 [facility] Comment on above: Performed By: #### 5 7021-8 #### GELY DENNISON ([id number]) [facility] ([facility]) [address] [place] [address] 25871 Eosinophils/100 WBC (Bld) 1.2 % Normal 0.0-6.0 [facility] Comment on above: Performed By: #### 5 7021-8 #### GELY DENNISON ([id number]) [facility] ([facility]) [address] [place] [address] 48575 Erythrocyte distribution width (RBC) [Ratio] 11.6 % Normal 11.5-14.5 [facility] Comment on above: Performed By: #### 5 7021-8 #### GELY DENNISON ([id number]) [facility] ([facility]) [address] [place] [address] 15799 Hematocrit (Bld) [Volume fraction] 33.5 % Low 36.0-46.0 [facility] Comment on above: Performed By: #### 5 7021-8 #### GELY DENNISON ([id number]) [facility] ([facility]) [address] [place] [address] 81540 Hemoglobin (Bld) [Mass/Vol] 11.9 g/dL Low 12.0-16.0 [facility] Comment on above: Performed By: #### 5 7021-8 #### GELY DENNISON ([id number]) [facility] ([facility]) [address] [place] [address] 28095 Immature granulocytes (Bld) [#/Vol] 0.05 x10*3/uL Normal 0.00-0.70 [facility] Comment on above: Performed By: #### 5 7021-8 #### GELY DENNISON ([id number]) [facility] ([facility]) [address] [place] [address] 20017 Immature granulocytes/100 WBC (Bld) 0.5 % Normal 0.0-0.9 [facility] Comment on above: Result Comment: Grace ture Granulocyte Count (IG) includes promyelocytes, myelocytes and metamyelocytes but does not include bands. Percent differential counts (%) should be interpreted in the context of the absolute cell counts (cells/UL). Performed By: #### 5 7021-8 #### GELY DENNISON (77823) [facility] ([facility]) [address] [place] [address] 97340 Lymphocytes (Bld) [#/Vol] 2.83 x10*3/uL Normal 1.20-4.80 [facility] Comment on above: Performed By: #### 5 7021-8 #### GELY DENNISON ([id number]) [facility] ([facility]) [address] [place] [address] 64595 Lymphocytes/100 WBC (Bld) 27.1 % Normal 13.0-44.0 [facility] Comment on above: Performed By: #### 5 7021-8 #### GELY DENNISON ([id number]) [facility] ([facility]) [address] [place] [address] 12174 MCH (RBC) [Entitic mass] 30.3 pg Normal 26.0-34.0 [facility] Comment on above: Performed By: #### 5 7021-8 #### GELY DENNISON ([id number]) [facility] ([facility]) [address] [place] [address] 09366 MCHC (RBC) [Mass/Vol] 35.5 g/dL Normal 32.0-36.0 [facility] Comment on above: Performed By: #### 5 7021-8 #### GELY DENNISON ([id number]) [facility] ([facility]) [address] [place] [address] 91549 MCV (RBC) [Entitic vol] 85 fL Normal 80-100 [facility] Comment on above: Performed By: #### 5 7021-8 #### GELY DENNISON (61054) [facility] ([facility]) [address] [place] [address] 48938 Monocytes (Bld) [#/Vol] 0.76 x10*3/uL Normal 0.10-1.00 [facility] Comment on above: Performed By: #### 5 7021-8 #### GELY DENNISON ([id number]) [facility] ([facility]) [address] [place] [address] 05723 Monocytes/100 WBC (Bld) 7.3 % Normal 2.0-10.0 [facility] Comment on above: Performed By: #### 5 7021-8 #### GELY DENNISON ([id number]) [facility] [facility] ([facility]) [address] [place] [address] 70351 Neutrophils (Bld) [#/Vol] 6.67 x10*3/uL Normal 1.20-7.70 [facility] Comment on above: Result Comment: Perc ent differential counts (%) should be interpreted in the context of the absolute cell counts (cells/uL). Performed By: #### 5 7021-8 #### GELY DENNISON ([id number]) [facility] ([facility]) [address] [place] [address] 63619 Neutrophils/100 WBC (Bld) 63.7 % Normal 40.0-80.0 [facility] Comment on above: Performed By: #### 5 7021-8 #### GELY DENNISON ([id number]) [facility] ([facility]) [address] [place] [address] 27423 Nucleated RBC/100 WBC (Bld) [Ratio] 0.0 /100 WBCs Normal 0.0-0.0 [facility] Comment on above: Performed By: #### 5 7021-8 #### GELY DENNISON ([id number]) [facility] ([facility]) [address] [place] [address] 72754 Platelets (Bld) [#/Vol] 283 x10*3/uL Normal 150-450 [facility] Comment on above: Performed By: #### 5 7021-8 #### GELY DENNISON ([id number]) [facility] ([facility]) [address] [place] [address] 27398 RBC (Bld) [#/Vol] 3.93 x10*6/uL Low 4.00-5.20 [facility] Comment on above: Performed By: #### 5 7021-8 #### GELY DENNISON ([id number]) [facility] ([facility]) [address] [place] [address] 76299 WBC (Bld) [#/Vol] 10.5 x10*3/uL Normal 4.4-11.3 [facility] Comment on above: Performed By: #### 5 7021-8 #### GELY DENNISON ([id number]) [facility] ([facility]) [address] [place] [address] 11281 ECG 12-LEADon 04-21-2025 ECG 12-LEAD Ventricular Rate 89 Atrial Rate 89 P-R Interval 124 QRS Duration 120 Q-T Interval 388 QTC Calculation(Bazett) 472 P Chester 51 R Chester 57 T Chester 33 QRS Count 15 Q Onset 220 P Onset 158 P Offset 205 T Offset 414 QTC Fredericia 442 Diagnosis Normal sinus rhythm Right bundle branch block Abnormal ECG When compared with ECG of 20-NOV-2023 19:22, No significant change was found See ED provider note for full interpretation and clinical correlation Confirmed by Wilver Mora ([id number]) on 04/25/2025 2:21:09 PM Normal [facility] TSH Qnon 04-21-2025 Interpretation and review of laboratory results Abnormal [facility] TSH testing is performed using different testing methodology at [facility] than at other [facility]. Direct result comparisons should only be made within the same method. [facility] Thyroid Stimulating Hormoneo n 04-21-2025 TSH Qn 0.17 m[IU]/L Low [facility] Thyrotropinon 04-21-2025 TSH Qn 0.17 m[IU]/L Low 0.44-3.98 [facility] Comment on above: Order Comment: TSH t esting is performed using different testing methodology at [facility] than at other [facility]. Direct result comparisons should only be made within the same method. Performed By: #### 3 016-3 ####HONG JUMA ([id number])[facility] ([facility])[address] [place] [address] Urinalysis complete W Reflex Culture panel (U)on 04-21-2025 Appearance (U) Clear Clear [facility] Bilirubin (U) [Mass/Vol] Negative NEGATIVE mg/dL [facility] Color (U) Light-Yellow Light-Yellow , Yellow, Dark-Yellow [facility] Glucose Auto test strip (U) [Mass/Vol] Normal Normal mg/dL [facility] Interpretation and review of laboratory results Normal [facility] Ketones (U) [Mass/Vol] Negative NEGAT SHAUNA mg/dL [facility] Leukocyte esterase Auto test strip Ql (U) Negative NEGATIVE [facility] Nitrite Auto test strip Ql (U) Negative NEGATIVE [facility] pH (U) 6.5 [pH] 5.0, 5.5, 6.0, 6.5, 7.0, 7.5, 8.0 [facility] Protein (U) [Mass/Vol] Negative NEGAT SHAUNA, 10 (TRACE), 20 (TRACE) mg/dL [facility] RBC (U) [#/Vol] Negative NEGATIVE mg/dL [facility] Specific gravity (U) [Rel density] 1.016 1.005 - 1.035 [facility] Urobilinogen (U) [Mass/Vol] Normal Normal mg/dL [facility] Appearance (U) Clear Normal Clear [facility] Comment on above: Performed By: #### 5 8077-9 ####GELY DENNISON ([id number])[facility] ([facility])[address] [place] [address] Bilirubin (U) [Mass/Vol] Negative Normal NEGATIVE [facility] Comment on above: Performed By: #### 5 8077-9 ####GELY DENNISON ([id number])[facility] ([facility])[address] [place] [address] Color (U) Light-Yellow Normal Light-Yellow , Yellow, Dark-Yellow [facility] Comment on above: Performed By: #### 5 8077-9 ####GELY DENNISON ([id number])[facility] ([facility])[address] [place] [address] Glucose Auto test strip (U) [Mass/Vol] Normal Normal Normal [facility] Comment on above: Performed By: #### 5 8077-9 ####GELY DENNISON ([id number])[facility] ([facility])[address] [place] [address] Ketones (U) [Mass/Vol] Negative [facility] Comment on above: Performed By: #### 5 8077-9 ####GELY DENNISON ([id number])[facility] ([facility])[address] [place] [address] Leukocyte esterase Auto test strip Ql (U) Negative Normal NEGATIVE [facility] Comment on above: Performed By: #### 5 8077-9 ####GELY DENNISON ([id number])[facility] ([facility])[address] [place] [address] Nitrite Auto test strip Ql (U) Negative Normal NEGATIVE [facility] Comment on above: Performed By: #### 5 8077-9 ####GELY DENNISON ([id number])[facility] ([facility])[address] [place] [address] pH (U) 6.5 [pH] Normal 5.0, 5.5, 6.0, 6.5, 7.0, 7.5, 8.0 [facility] Comment on above: Performed By: #### 5 8077-9 ####GELY DENNISON ([id number])[facility] ([facility])[address] [place] [address] Protein (U) [Mass/Vol] Negative Normal NEGAT SHAUNA, 10 (TRACE), 20 (TRACE) [facility] Comment on above: Performed By: #### 5 8077-9 ####GELY DENNISON ([id number])[facility] ([facility])[address] [place] [address] RBC (U) [#/Vol] Negative Normal NEGATIVE [facility] Comment on above: Performed By: #### 5 8077-9 ####GELY DENNISON ([id number])[facility] ([facility])[address] [place] [address] Specific gravity (U) [Rel density] 1.016 Normal 1.005-1.035 [facility] Comment on above: Performed By: #### 5 8077-9 ####GELY DENNISON ([id number])[facility] ([facility])[address] [place] [address] 87995 Urobilinogen (U) [Mass/Vol] Normal Normal Normal [facility] Comment on above: Performed By: #### 5 8077-9 ####GELY DENNISON ([id number])[facility] ([facility])[address] [place], [place] [address] MR/BMS.Avani 03-27-2025 MR/BMS. [address], [address] [place] [address] OFFICE VISIT Date of Service: 03/27/25 MR#: [id number] Acct: [id number] Name: FADUMO HENSLEY Rep #: [id number] : 1995 Provider: DIOGENES head Age/Sex: 29/F Location: [facility].BPV Status: Signed Intake Vital Signs 01/02/25 10:06 03/27/25 15:13 Height 5 ft 6 in 5 ft 6 in BP Intake Visit Reasons: Follow up Allergies cetirizine (From [facility]) Allergy (Verified 11/10/24 22:50) difficulty breathing, racing heart [facility] Medical History DDD (degenerative disc [...] deficit-hyperactivity disorder (more content not included)... Normal [facility] CNOVon 03-26-2025 CNOV Office Visit (OBGYWM ) FADUMO HENSLEY ([id number]) 1995 F Date Time Provider Department 03/26/25 [...] may also visit [email or web address] or contact the [facility] referral line at [email or web address] and to find the closest provider based on your estimated length. [phone] [address] [place] [address] [email or web address] / [facility]- Online scheduling available [email or web address] [facility] family planning call [phone] or email [email or web address] Carmelita Millan MD 03/30/2025 1:27 PM Signed Fadumo Hensley is a 29 [...] Living2 SAB0 IAB0 Ectopic0 Multiple0 Live Births2 [employer] History LMP: 01/27/2025 (Exact Date), Age at Menarche: Age at First : Age at Menopause: [employer] History Comments: Sexual Activity: Yes; Male Contraception: [...] 05/26/2011 Depression complicating , antepartum ([facility]) 08/02/2012 Diet controlled gestational diabetes mellitus (GDM) in second trimester ([facility]) 11/08/2022 11/08/22- 2 levels out of 3 elevated. Supplies and referrals ordered. Sulma Bartholomew, SENIOR COMMUNICATIONS SPECIALIST.CNM Generalized anxiety disorder GERD (gastroesophageal reflux disease) [...] testing. Poor support system complicating ([facility]) 04/18/2012 04/18/2012The father of the baby [...] UTERI CONIZA LP ELCTRO EXCI 05/11/2023 at [facility]-Dr. Millan PAST SURGICAL HISTORY OF 01/01/2010 Removal of 4 [place] Teeth PAST SURGICAL HISTORY OF basal cell [...] Current Ou (more content not included)... Normal [facility] Jessica 03-11-2025 CNPN Telephone (OBGYWM) FADUMO HENSLEY ([id number]) 1995 F Date Time Provider Department 03/11/25 ALIYAH ASKEW During your visit today, we recorded the following information about you: Tri Alonzo, BRIT 03/11/2025 3:17 PM Signed Pt saw [facility]H 02/27/25 for + . Pelvic US completed 03/06/25-see report LMP 01/27/25 6w1d Pt calls stating she has a lot of health issues and would like to discuss with provider whether this + is something that she is able to continue. Appt scheduled with J 03/17 to discuss. BRIT Celis Tara, BRIT 04/21/2025 3:20 PM Signed Pt had US 03/06/25. Last seen in office by RR 03/26/25 for discussion of termination vs continuing . Ega today 12w. Pt calls today stating she [...] a 30 minute opening. BRIT Laguna Renee, APRN.JAMES 04/22/2025 11:17 AM Signed Yes, that works. [...] Date Reviewed: 02/27/2025 Reviewed by: Candice Orozco APRN.EDUCATION ADMINISTRATOR - Fully Assessed Reason for Visit: [587] Primary Visit Diagnosis:Encounter for screening of mother (HCC) [Z36.9] Other Visit Diagnosis:Supervision of high risk in second trimester (HCC) [O09.92] Order(s):OBSTETRIC ULTRASOUND WHI [4346366] Order #: [id number]: 1 FUTURE Prescriptions as of 04/22/2025 - [...] this medication prescribed by psychiatry [facility] Lamotrigine 50mg once day Idania Loco [...] 04/27/2020 Urinar (more content not included)... Normal [facility] US Pelvison 03-09-2025 Indication Positive test [...] corpus luteum D3 14.0 mm Performed By: Maki Ramos RDMS Read By: Day Peña M.D. MATERNAL MEDICINE [facility] US Pelvison 03-06-2025 Radiology Study observation (narrative) [facility] B-HCG SerPl-aCncon 5 HCG.beta subunit Qn 2679.0 m[IU]/mL High <5.0 [facility] Comment on above: Order Comment: Speci men Type: BLOOD SPECIMENOrdering Facility: [facility] Address: [address] [place] [address] Result Comment: GROVER TITATIVE HCG NORMAL RANGES Weeks of Gestation (Weeks Since LMP) 3 Weeks (5.8-71.2 mIU/mL) 4 Weeks (9.5-750 mIU/mL) 5 Weeks (217-7138 mIU/mL) 6 Weeks (158-39392 mIU/mL) 7 Weeks (3697-241359 mIU/mL) 8 Weeks (31756-804241 mIU/mL) 9 Weeks (50224-531604 mIU/mL) 10 Weeks (42279-798725 mIU/mL) 12 Weeks (68357-464734 mIU/mL) Referenced to 4th IS of [facility] Performed By: #### 2 1198-7 ####[facility] LABCLIA [id number] [place] [address] [place] B-HCG SerPl-aCncon 5 HCG.beta subunit Qn 315.7 m[IU]/mL High <5.0 [facility] Comment on above: Order Comment: Speci men Type: BLOOD SPECIMENOrdering Facility: [facility] Address: [address] [place] [address] Result Comment: GROVER TITATIVE HCG NORMAL RANGES Weeks of Gestation (Weeks Since LMP) 3 Weeks (5.8-71.2 mIU/mL) 4 Weeks (9.5-750 mIU/mL) 5 Weeks (217-7138 mIU/mL) 6 Weeks (158-62195 mIU/mL) 7 Weeks (3697-508815 mIU/mL) 8 Weeks (42863-059873 mIU/mL) 9 Weeks (32852-750786 mIU/mL) 10 Weeks (08688-372927 mIU/mL) 12 Weeks (87721-034215 mIU/mL) Referenced to 4th IS of [facility] Performed By: #### 2 1198-7 ####[facility] LABCLIA [id number] [address] [facility] CNOVon 02-27-2025 CNOV Office Visit (OBGYWM ) FADUMO HENSLEY ([id number]) 1995 F Date Time Provider Department 02/27/25 3:15 PM CANDICE OROZCO During your visit today, we recorded the following information about you: Blood pressure Weight 126/88 82.6 kg Candice Orozco APRN.EDUCATION ADMINISTRATOR 02/27/2025 3:48 PM Signed Fadumo Hardy Ayden is a [...] Living2 SAB0 IAB0 Ectopic0 Multiple0 Live Births2 [employer] Special[employer] History LMP: 01/27/2025 (Exact Date), Having periods Age at Menarche: Age at First : Age at Menopause: [employer] Specialist History Comments: Sexual Activity: Yes; Male Contraception: [...] 05/26/2011 Depression complicating , antepartum ([facility]) 08/02/2012 Diet controlled gestational diabetes mellitus (GDM) in second trimester ([facility]) 11/08/2022 11/08/22- 2 levels out of [...] testing. Poor support system complicating ([facility]) 04/18/2012 04/18/2012The father of the baby [...] UTERI CONIZA LP ELCTRO EXCI 05/11/2023 at [facility]-Dr. Millan PAST SURGICAL HISTORY OF 01/01/2010 Removal of 4 [place] Teeth PAST SURGICAL HISTORY OF basal cell [...] I have used multiple drugs in the past" Current Outpatient Medications Medication Sig lamoTRIgine (LAMICTAL) 25 mg tablet Take 2 tablets by mouth once daily. naproxen (NAPROSYN) 375 mg tablet Take 1 tablet by mouth three times a day as needed (pain). tiZANidine (ZANAFLEX) 4 mg tablet Take 1/2 - 1 tablet oral Three times a day , PRN as needed for 30 Days (more content not included)... Normal [facility] Jessica 02-27-2025 CNPN Telephone (OBGYWM) FADUMO HENSLEY ([id number]) 1995 F Date Time Provider Department 02/27/25 CANDICE OROZCO During your visit today, we [...] If so, order pending. BRIT Laguna Emily, APRN.JAMES 02/27/2025 4:48 PM Signed Yes, plan for repeat Sunday. Filed. Thank you, Candice Orozco APRN.Joshua Garcia RN 02/27/2025 4:50 PM Signed Patient notified. Joshua Delgado RN Allergies As of Date: 02/27/2025 Noted Allergy Reaction ZYRTEC (CETIRIZINE HCL) 05/08/2006 5 - Intolerance Comments: tremors Date Reviewed: 02/27/2025 Reviewed by: Candice Orozco APRN.EDUCATION ADMINISTRATOR - Fully Assessed Reason for Visit: Orders [681] Primary Visit Diagnosis:Encounter for test, result positive ([facility]) [Z32.01] Order(s):HCG QUANTITATIVE [SQHCGQT] Order #: [id number] FUTURE Prescriptions as of 02/27/2025 - prental [...] this medication prescribed by psychiatry [facility] the [facility] Lamotrigine 50mg once day Idania Loco [...] Status:Closed by JOSHUA DELGADO on 02/27/25 Normal [facility] CBC W Auto Differential pane l (Bld)on 02-11-2025 Basophils (Bld) [#/Vol] 0.03 10*3/uL [facility] Basophils/100 WBC (Bld) 0.3 % 0.0 - 2.0 % [facility] Eosinophils (Bld) [#/Vol] 0.09 10*3/uL [facility] Eosinophils/100 WBC (Bld) 1.0 % 0.0 - 6.0 % [facility] Erythrocyte distribution width (RBC) [Ratio] 11.8 % 11.5 - 14.5 % [facility] Hematocrit (Bld) [Volume fraction] 35.5 % Low 36.0 - 46.0 % [facility] Hemoglobin (Bld) [Mass/Vol] 12.2 g/dL 12.0 - 16.0 g/dL [facility] Immature granulocytes (Bld) [#/Vol] 0.02 10*3/uL [facility] Immature granulocytes/100 WBC (Bld) 0.2 % 0.0 - 0.9 % [facility] Comment on above: Immature Granulocyte Count (IG) includes promyelocytes, myelocytes and metamyelocytes but does not include bands. Percent differential counts (%) should be interpreted in the context of the absolute cell counts (cells/UL). Interpretation and review of laboratory results Abnormal [facility] Lymphocytes (Bld) [#/Vol] 3.01 10*3/uL [facility] Lymphocytes/100 WBC (Bld) 33.2 % 13.0 - 44.0 % [facility] MCH (RBC) [Entitic mass] 31.5 pg 26.0 - 34.0 pg [facility] MCHC (RBC) [Mass/Vol] 34.4 g/dL 32.0 - 36.0 g/dL [facility] MCV (RBC) [Entitic vol] 92 fL 80 - 100 fL [facility] Monocytes (Bld) [#/Vol] 0.75 10*3/uL [facility] Monocytes/100 WBC (Bld) 8.3 % 2.0 - 10.0 % [facility] Neutrophils (Bld) [#/Vol] 5.16 10*3/uL [facility] Comment on above: Percent differential counts (%) should be interpreted in the context of the absolute cell counts (cells/uL). Neutrophils/100 WBC (Bld) 57.0 % 40.0 - 80.0 % [facility] Nucleated RBC/100 WBC (Bld) [Ratio] 0.0 % [facility] Platelets (Bld) [#/Vol] 250 10*3/uL [facility] RBC (Bld) [#/Vol] 3.87 10*6/uL Low [facility] WBC (Bld) [#/Vol] 9.1 10*3/uL [facility] Basophils (Bld) [#/Vol] 0.03 x10*3/uL Normal 0.00-0.10 [facility] Comment on above: Performed By: #### 5 7021-8 #### GELY DENNISON ([id number]) [facility] ([facility]) [address] [place] [address] 31166 Basophils/100 WBC (Bld) 0.3 % Normal 0.0-2.0 [facility] Comment on above: Performed By: #### 5 7021-8 #### GELY DENNISON ([id number]) [facility] ([facility]) [address] [place] [address] 01472 Eosinophils (Bld) [#/Vol] 0.09 x10*3/uL Normal 0.00-0.70 [facility] Comment on above: Performed By: #### 5 7021-8 #### GELY DENNISON ([id number]) [facility] ([facility]) [address] [place] [address] 29526 Eosinophils/100 WBC (Bld) 1.0 % Normal 0.0-6.0 [facility] Comment on above: Performed By: #### 5 7021-8 #### GELY DENNISON ([id number]) [facility] ([facility]) [address] [place] [address] 91208 Erythrocyte distribution width (RBC) [Ratio] 11.8 % Normal 11.5-14.5 [facility] Comment on above: Performed By: #### 5 7021-8 #### GELY DENNISON ([id number]) [facility] ([facility]) [address] [place] [address] 45870 Hematocrit (Bld) [Volume fraction] 35.5 % Low 36.0-46.0 [facility] Comment on above: Performed By: #### 5 7021-8 #### GELY DENNISON ([id number]) [facility] ([facility]) [address] [place] [address] 02333 Hemoglobin (Bld) [Mass/Vol] 12.2 g/dL Normal 12.0-16.0 [facility] Comment on above: Performed By: #### 5 7021-8 #### GELY DENNISON ([id number]) [facility] ([facility]) [address] [place] [address] 39981 Immature granulocytes (Bld) [#/Vol] 0.02 x10*3/uL Normal 0.00-0.70 [facility] Comment on above: Performed By: #### 5 7021-8 #### GELY DENNISON ([id number]) [facility] ([facility]) [address] [place] [address] 98723 Immature granulocytes/100 WBC (Bld) 0.2 % Normal 0.0-0.9 [facility] Comment on above: Result Comment: Grace ture Granulocyte Count (IG) includes promyelocytes, myelocytes and metamyelocytes but does not include bands. Percent differential counts (%) should be interpreted in the context of the absolute cell counts (cells/UL). Performed By: #### 5 7021-8 #### GELY DENNISON ([id number]) [facility] ([facility]) [address] [place] [address] 45865 Lymphocytes (Bld) [#/Vol] 3.01 x10*3/uL Normal 1.20-4.80 [facility] Comment on above: Performed By: #### 5 7021-8 #### GELY DENNISON ([id number]) [facility] ([facility]) [address] [place] [address] 75091 Lymphocytes/100 WBC (Bld) 33.2 % Normal 13.0-44.0 [facility] Comment on above: Performed By: #### 5 7021-8 #### GELY DENNISON ([id number]) [facility] ([facility]) [address] [place] [address] 37461 MCH (RBC) [Entitic mass] 31.5 pg Normal 26.0-34.0 [facility] Comment on above: Performed By: #### 5 7021-8 #### GELY DENNISON ([id number]) [facility] ([facility]) [address] [place] [address] 90986 MCHC (RBC) [Mass/Vol] 34.4 g/dL Normal 32.0-36.0 [facility] Comment on above: Performed By: #### 5 7021-8 #### GELY DENNISON ([id number]) [facility] ([facility]) [address] [place] [address] 25784 MCV (RBC) [Entitic vol] 92 fL Normal 80-100 [facility] Comment on above: Performed By: #### 5 7021-8 #### GELY DENNISON ([id number]) [facility] ([facility]) [address] [place] [address] 68576 Monocytes (Bld) [#/Vol] 0.75 x10*3/uL Normal 0.10-1.00 [facility] Comment on above: Performed By: #### 5 7021-8 #### GELY DENNISON ([id number]) [facility] ([facility]) [address] [place] [address] 99628 Monocytes/100 WBC (Bld) 8.3 % Normal 2.0-10.0 [facility] Comment on above: Performed By: #### 5 7021-8 #### GELY DENNISON ([id number]) [facility] ([facility]) [address] [place] [address] 44934 Neutrophils (Bld) [#/Vol] 5.16 x10*3/uL Normal 1.20-7.70 [facility] Comment on above: Result Comment: Perc ent differential counts (%) should be interpreted in the context of the absolute cell counts (cells/uL). Performed By: #### 5 7021-8 #### GELY DENNISON ([id number]) [facility] ([facility]) [address] [place] [address] 22830 Neutrophils/100 WBC (Bld) 57.0 % Normal 40.0-80.0 [facility] Comment on above: Performed By: #### 5 7021-8 #### GELY DENNISON ([id number]) [facility] ([facility]) [address] [place] [address] 62613 Nucleated RBC/100 WBC (Bld) [Ratio] 0.0 /100 WBCs Normal 0.0-0.0 [facility] [facility] Comment on above: Performed By: #### 5 7021-8 #### GELY DENNISON ([id number]) [facility] ([facility]) [address] [place] [address] 55059 Platelets (Bld) [#/Vol] 250 x10*3/uL Normal 150-450 [facility] Comment on above: Performed By: #### 5 7021-8 #### GELY DENNISON ([id number]) [facility] ([facility]) [address] [place] [address] 60982 RBC (Bld) [#/Vol] 3.87 x10*6/uL Low 4.00-5.20 [facility] Comment on above: Performed By: #### 5 7021-8 #### GELY DENNISON ([id number]) [facility] ([facility]) [address] [place] [address] 21328 WBC (Bld) [#/Vol] 9.1 x10*3/uL Normal 4.4-11.3 [facility] Comment on above: Performed By: #### 5 7021-8 #### GELY DENNISON ([id number]) [facility] ([facility]) [address] [place] [address] ABDOMEN PELVIS W IV CONTR Demetra 02-11-2025 CT ABDOMEN PELVIS W IV CONTRAST Interpreted By: Ambrose Pearson, STUDY: CT ABDOMEN PELVIS W IV CONTRAST; 02/11/2025 1:24 am INDICATION: Signs/Symptoms:pain. COMPARISON: 08/26/2023 ACCESSION NUMBER(S): [id number] ORDERING CLINICIAN: ROSANNA RUIZ TECHNIQUE: Contiguous axial [...] Ambrose Pearson 02/11/2025 1:30 AM Dictation workstation: [id number] [facility] CT Abdomen and Pelvis W cont [...] Ambrose Pearson 02/11/2025 1:30 AM Dictation workstation: [id number] MMODAL Interpreted By: Ambrose Pearson, STUDY: CT ABDOMEN PELVIS W IV CONTRAST; 02/11/2025 1:24 am INDICATION: Signs/Symptoms:pain. COMPARISON: 08/26/2023 ACCESSION NUMBER(S): [id number] ORDERING CLINICIAN: ROSANNA RUIZ TECHNIQUE: Contiguous axial [...] Multilevel degenerative change of the lumbar spine. [facility]AL Ambrose Pearson MD - 02/11/2025 Interpreted By: Ambrose Pearson, STUDY: CT ABDOMEN PELVIS W IV CONTRAST; 02/11/2025 1:24 am INDICATION: Signs/Symptoms:pain. COMPARISON: 08/26/2023 ACCESSION NUMBER(S): [id number] ORDERING CLINICIAN: ROSANNA RUIZ TECHNIQUE: Contiguous axial [...] Ambrose Pearson 02/11/2025 1:30 AM Dictation workstation: [id number] [facility] Work Phone: Radiology Study observation (narrative) [facility] Work Phone: CT Abdomen and Pelvis W cont rast IVOrdered By: Amrbose Pearson on 02-11-2025 [facility] Work Phone: Comprehensive metabolic 2000 panelon 02-11-2025 Albumin BCP dye [Mass/Vol] 4.2 g/dL 3.4 - 5.0 g/dL [facility] ALP [Catalytic activity/Vol] 73 U/L 33 - 110 U/L [facility] ALT With P-5'-P [Catalytic activity/Vol] 38 U/L 7 - 45 U/L [facility] Comment on above: Patients treated wit h Sulfasalazine may generate falsely decreased results for ALT. Anion gap [Moles/Vol] 8 mmol/L Low 10 - 2 0 mmol/L [facility] AST With P-5'-P [Catalytic activity/Vol] 22 U/L 9 - 39 U/L [facility] Bilirubin [Mass/Vol] 0.8 mg/dL 0.0 - 1 .2 mg/dL [facility] Calcium [Mass/Vol] 9.0 mg/dL 8.6 - 10. 3 mg/dL [facility] Chloride [Moles/Vol] 107 mmol/L 98 - 10 7 mmol/L [facility] CO2 [Moles/Vol] 27 mmol/L 21 - 32 mmol/L [facility] Creatinine [Mass/Vol] 0.64 mg/dL 0.50 - 1.05 mg/dL [facility] eGFR - PINF [facility] Comment on above: Calculations of jamila mated GFR are performed using the 2020 CKD-EPI Study Refit equation without the race variable for the IDMS-Traceable creatinine methods. https://jasn.asnjournals.org/content//ASN.22138 12997 Glucose [Mass/Vol] 103 mg/dL High 74 - 99 mg/dL [facility] Interpretation and review of laboratory results Abnormal [facility] Potassium [Moles/Vol] 4.0 mmol/L 3.5 - 5.3 mmol/L [facility] Protein [Mass/Vol] 6.5 g/dL 6.4 - 8.2 g/dL [facility] Sodium [Moles/Vol] 138 mmol/L 136 - 145 mmol/L [facility] Urea nitrogen [Mass/Vol] 14 mg/dL 6 - 23 mg/dL [facility] Albumin BCP dye [Mass/Vol] 4.2 g/dL Normal 3.4-5.0 [facility] Comment on above: Performed By: #### 2 4323-8 #### GELY DENNISON ([id number]) [facility] ([facility]) [address] [place] [address] 12576 ALP [Catalytic activity/Vol] 73 U/L Normal 33-110 [facility] Comment on above: Performed By: #### 2 4323-8 #### GELY DENNISON ([id number]) [facility] ([facility]) [address] [place] [address] 24995 ALT With P-5'-P [Catalytic activity/Vol] 38 U/L Normal 7-45 [facility] Comment on above: Result Comment: Mirta ents treated with Sulfasalazine may generate falsely decreased results for ALT. Performed By: #### 2 4323-8 #### GELY DENNISON ([id number]) [facility] ([facility]) [address] [place] [address] 46685 Anion gap [Moles/Vol] 8 mmol/L Low 10-20 [facility] Comment on above: Performed By: #### 2 4323-8 #### GELY DENNISON (53084) [facility] ([facility]) [address] [place] [address] AST With P-5'-P [Catalytic activity/Vol] 22 U/L Normal 9-39 [facility] Comment on above: Performed By: #### 2 4323-8 #### GELY DENNISON (94342) [facility] ([facility]) [address] [place] [address] Bilirubin [Mass/Vol] 0.8 mg/dL Normal 0.0-1.2 [facility] Comment on above: Performed By: #### 2 432-8 #### GELY DENNISON (95408) [facility] ([facility]) [address] [place] [address] 65079 Calcium [Mass/Vol] 9.0 mg/dL Normal 8.6-10.3 [facility] Comment on above: Performed By: #### 2 432-8 #### GELY DENNISON (35274) [facility] ([facility]) [address] [place] [address] 87587 Chloride [Moles/Vol] 107 mmol/L Normal 98-107 [facility] Comment on above: Performed By: #### 2 4323-8 #### GELY DENNISON (59884) [facility] ([facility]) [address] [place] [address] CO2 [Moles/Vol] 27 mmol/L Normal 21-32 [facility] Comment on above: Performed By: #### 2 4323-8 #### GELY DENNISON (25549) [facility] ([facility]) [address] [place] [address] Creatinine [Mass/Vol] 0.64 mg/dL Normal 0.50-1.05 [facility] Comment on above: Performed By: #### 2 4323-8 #### GELY DENNISON (27893) [facility] ([facility]) [address] [place] [address] GFR/1.73 sq M.predicted MDRD (S/P/Bld) [Vol rate/Area] mL/min/{1.73_m2} Normal >60 [facility] Comment on above: Result Comment: Calc ulations of estimated GFR are performed using the 2020 CKD-EPI Study Refit equation without the race variable for the IDMS-Traceable creatinine methods. https://jasn.asnjournals.org/content/early/ASN.03378 62698 Performed By: #### 2 4323-8 #### GELY DENNISON (30518) [facility] ([facility]) [facility] [place] [address] Glucose [Mass/Vol] 103 mg/dL High 74-99 [facility] Comment on above: Performed By: #### 2 4323-8 #### GELY DENNISON (66326) [facility] ([facility]) [address] [place] [address] 41315 Potassium [Moles/Vol] 4.0 mmol/L Normal 3.5-5.3 [facility] Comment on above: Performed By: #### 2 4323-8 #### GELY DENNISON (47459) [facility] ([facility]) [address] [place] [address] 35785 Protein [Mass/Vol] 6.5 g/dL Normal 6.4-8.2 [facility] Comment on above: Performed By: #### 2 4323-8 #### GELY DENNISON (58000) [facility] ([facility]) [address] [place] [address] 38706 Sodium [Moles/Vol] 138 mmol/L Normal 136-145 [facility] Comment on above: Performed By: #### 2 4323-8 #### GELY DENNISON (28266) [facility] ([facility]) [address] [place] [address] 26932 Urea nitrogen [Mass/Vol] 14 mg/dL Normal 6-23 [facility] Comment on above: Performed By: #### 2 4323-8 #### GELY DENNISON (82822) [facility] ([facility]) [address] [place] [address] 60940 Lactateon 07-23-2025 Lactate [Moles/Vol] 0.9 mmol/L 0.4 - 2. 0 mmol/L [facility] Lactate [Moles/Vol] 0.9 mmol/L Normal 0.4-2.0 [facility] Comment on above: Order Comment: Venip uncture immediately after or during the administration of Metamizole may lead to falsely low results. Testing should be performed immediately prior to Metamizole dosing. Performed By: #### 2 524-7 #### GELY DENNISON (09279) [facility] ([facility]) [address] [place] [address] 21885 Lactate [Moles/Vol]on 2024 Interpretation and review of laboratory results Normal [facility] Venipuncture immediately after or during the administration of Metamizole may lead to falsely low results. Testing should be performed immediately prior to Metamizole dosing. [facility] Magnesiumon 02-11-2025 Magnesium [Mass/Vol] 1.89 mg/dL 1.60 - 2.40 mg/dL [facility] Magnesium [Mass/Vol] 1.89 mg/dL Normal 1.60-2.40 [facility] Comment on above: Performed By: #### 1 9123-9 #### GELY DENNISON (28963) [facility] ([facility]) [address] [place] [address] 68978 Magnesium [Mass/Vol]on 02-11 Interpretation and review of laboratory results Normal [facility] No Panel Informationon 02-11 [facility] Urinalysis complete W Reflex Culture panel (U)on 02-11-2025 Appearance (U) Clear Clear [facility] Bilirubin (U) [Mass/Vol] Negative NEGATIVE mg/dL [facility] Color (U) Light-Yellow Light-Yellow , Yellow, Dark-Yellow [facility] Glucose Auto test strip (U) [Mass/Vol] Normal Normal mg/dL [facility] Interpretation and review of laboratory results Normal [facility] Ketones (U) [Mass/Vol] Negative NEGAT SHAUNA mg/dL [facility] Leukocyte esterase Auto test strip Ql (U) Negative NEGATIVE [facility] Nitrite Auto test strip Ql (U) Negative NEGATIVE [facility] pH (U) 6.0 [pH] 5.0, 5.5, 6.0, 6.5, 7.0, 7.5, 8.0 [facility] Protein (U) [Mass/Vol] Negative NEGAT SHAUNA, 10 (TRACE), 20 (TRACE) mg/dL [facility] RBC (U) [#/Vol] Negative NEGATIVE mg/dL [facility] Specific gravity (U) [Rel density] 1.030 1.005 - 1.035 [facility] Urobilinogen (U) [Mass/Vol] Normal Normal mg/dL [facility] Appearance (U) Clear Normal Clear [facility] Comment on above: Performed By: #### 5 8077-9 #### GELY DENNISON (22271) [facility] ([facility]) [address] [place] [address] Bilirubin (U) [Mass/Vol] Negative Normal NEGATIVE [facility] Comment on above: Performed By: #### 5 8077-9 #### GELY DENNISON (23818) [facility] ([facility]) [address] [place] [address] Color (U) Light-Yellow Normal Light-Yellow , Yellow, Dark-Yellow [facility] Comment on above: Performed By: #### 5 8077-9 #### GELY DENNISON (30577) [facility] ([facility]) [address] [place] [address] Glucose Auto test strip (U) [Mass/Vol] Normal Normal Normal [facility] Comment on above: Performed By: #### 5 8077-9 #### GELY DENNISON (98925) [facility] ([facility]) [address] [place] [address] Ketones (U) [Mass/Vol] Negative Normal [facility] Comment on above: Performed By: #### 5 8077-9 #### GELY DENNISON (78034) [facility] ([facility]) [address] [place] [address] 19274 Leukocyte esterase Auto test strip Ql (U) Negative Normal NEGATIVE [facility] Comment on above: Performed By: #### 5 8077-9 #### GELY DENNISON (86685) [facility] ([facility]) [address] [place] [address] 62742 Nitrite Auto test strip Ql (U) Negative Normal NEGATIVE [facility] Comment on above: Performed By: #### 5 8077-9 #### GELY DENNISON (85883) [facility] ([facility]) [address] [place] [address] 38248 pH (U) 6.0 [pH] Normal 5.0, 5.5, 6.0, 6.5, 7.0, 7.5, 8.0 [facility] Comment on above: Performed By: #### 5 8077-9 #### GELY DENNISON (00586) [facility] ([facility]) [address] [place] [address] 21421 Protein (U) [Mass/Vol] Negative Normal NEGAT SHAUNA, 10 (TRACE), 20 (TRACE) [facility] Comment on above: Performed By: #### 5 8077-9 #### GELY DENNISON (73656) [facility] ([facility]) [address] [place] [address] 41833 RBC (U) [#/Vol] Negative Normal NEGATIVE [facility] Comment on above: Performed By: #### 5 8077-9 #### GELY DENNISON (49091) [facility] ([facility]) [address] [place] [address] 77649 Specific gravity (U) [Rel density] 1.030 Normal 1.005-1.035 [facility] Comment on above: Performed By: #### 5 8077-9 #### GELY DENNISON (29743) [facility] ([facility]) [address] [place] [address] 95843 Urobilinogen (U) [Mass/Vol] Normal Normal Normal [facility] Comment on above: Performed By: #### 5 8077-9 #### HONG JUMA ([id number]) [facility] ([facility]) [address] [place] [address] Jessica 02-09-2025 CNPBo Telephone (4CQ) FADUMO HENSLEY ([id number]) 1995 F Date Time Provider Department 02/09/25 [...] what activity pt is doing and feels "heaviness" in abdomen. Pain rated a 7/10. Denies [...] IUD or prn. MD Sandy Mccarthy Trisha, BRIT 02/11/2025 3:47 PM Signed Patient notified. She is questioning the enlarged lymph nodes on CT scan. Asking if that could be related to anything or if she just needs to f/u with PCP next since pain is ongoing? BRIT Laguna Rebecca L, MD 02/12/2025 1:34 PM Signed [...] for IUD insertion [Z30.430] Order(s):INSERT INTRAUTERINE DEVICE [4031066] Order #: [id number] Prescriptions as of 02/12/2025 - lamoTRIgine (LAMICTAL) [...] this medication prescribed by psychiatry [facility] Lamotrigine 50mg once day Idania Loco [...] of leukemia (more content not included)... Normal [facility] US Pelvison 02-01-2025 Indication pelvic pain [...] Read By: Irene Henderson M.D. MATERNAL MEDICINE [facility] CNOVon 01-29-2025 CNOV Office Visit (OBGYWM ) FADUMO HENSLEY ([id number]) 1995 F Date Time Provider Department 01/29/25 10:20 AM CARMELITA MILLAN OBGYWM During your visit today, we recorded the following information about you: Blood pressure Weight Last Period 104/70 80.3 kg 01/27/25 Carmelita Millan MD 01/29/2025 11:17 AM Signed Obstetrics and Gynecology [place] [employer] Visit Subjective Recording using ambient TheCommentor software for draft documentation of the visit was discussed with the patient/authorized indirect sales representative; all questions welcomed and answered. Patient/authorized indirect sales representative agreed to proceed CHIEF COMPLAINT: The [...] cramping. - Pain during intercourse described as "something's getting bumped." - Pain onset reportedly began after a [...] Living2 SAB0 IAB0 Ectopic0 Multiple0 Live Births2 [employer] History LMP: 01/27/2025 (Exact Date), Having periods Age at Menarche: Age at First : Age at Menopause: [employer] History Comments: Sexual Activity: Yes; Male Contraception: [...] mellitus (GDM) in second trimester ([facility]) 11/08/2022 11/08/22- 2 levels out of [...] UTERI CON (more content not included)... Normal [facility] US Pelvison 01-29-2025 Radiology Study observation (narrative) [facility] CNPNon 01-27-2025 CNPN Telephone (OBGYWM) AYDENFADUMO ([id number]) 1995 F Date Time Provider Department 01/27/25 CARMELITA MILLAN During your visit today, we recorded the following information about you: Tri Alonzo, BRIT 01/27/2025 3:44 PM Signed Pt states she [...] scheduled with RR 01/29/25. Tri Alonzo, BRIT Allergies As of Date: 01/27/2025 Noted Allergy [...] this medication prescribed by [facility] Lamotrigine 50mg once day Idania Loco [...] 01/01/2023 Anemia (more content not included)... Normal [facility] MR/BMS.BPon 01-02-2025 MR/BMS.BP [facility] [address], [address] [place] [address] OFFICE VISIT Date of Service: 01/01/25 MR#: [id number] Acct: [id number] Name: FADUMO HENSLEY Rep #: [id number] : 1995 Provider: [facility] Aliyah sahu Age/Sex: 29/F Location: [facility].BP Status: Signed Intake Vital Signs 09/11/24 14:22 10/05/24 20:27 11/10/24 22:48 01/02/25 10:06 Height 5 ft 7 in 5 ft 6 in 5 ft 6 in 5 ft 6 in BP Intake Visit Reasons: Follow up Allergies cetirizine (From Zyrte) Allergy (Verified 11/10/24 22:50) difficulty breathing, [facility] Medical History DDD (degenerative disc disease), [...] year-old female returning for therapy. She reported some reduction in anxiety since her last appointment. 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 Normal [facility]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 #### L 501.2450, L500.4050, L100.0100 ####[facility] [address] [place], [place], [address] M100.678on 07-07-2024 M100.678 Pending SARS-CoV-2 (COVID 19) Negative INFLUENZA A Negative INFLUENZA B Negative RSV PCR Negative Normal [facility] Comment on above: Performed By: #### L 400.7600, L400.0001, M100.678 ####[facility] [address] [place], [address] ,Urineon 07-07-2024 Beta HCG ( test) Ql (U) Negative Normal [facility] Comment on above: Order Comment: CLEAN CATCH Result Comment: Very dilute urine specimens, as indicated by a low specific gravity, may not contain indirect sales representative levels of hCG. If is still suspected, a first morning urine specimen should be collected 48 hours later and tested. Performed By: #### L 400.7600, L400.0001, M100.678 ####[facility] [address] [place], [address] Urinalysis, Completeon 07-07 BACTERIA 1+ /hpf Normal None Seen [facility] Comment on above: Order Comment: CLEAN CATCH Performed By: #### L 400.7600, L400.0001, M100.678 ####[facility] [address] [place], [address] EPI,SQUAMOUS 0-5 SEEN Normal 5-10 [facility] Comment on above: Order Comment: CLEAN CATCH Performed By: #### L 400.7600, L400.0001, M100.678 ####[facility] [address] [place], [address] Mucus Ql (Urine sed) 1+ /hpf Normal [facility] Comment on above: Order Comment: CLEAN CATCH Performed By: #### L 400.7600, L400.0001, M100.678 ####[facility] [address] [place], [address] RBC 0-5 SEEN Normal 0-5 [facility] Comment on above: Order Comment: CLEAN CATCH Performed By: #### L 400.7600, L400.0001, M100.678 ####[facility] [address] [place], [address] WBC 0-5 SEEN Normal 0-5 [facility] Comment on above: Order Comment: CLEAN CATCH Performed By: #### L 400.7600, L400.0001, M100.678 ####[facility] [address] [place], [address] CNOVon 06-24-2024 CNOV Office Visit (OBGYWM ) AYDENFADUMO ([id number]) 1995 F Date Time Provider Department 06/24/24 3:20 PM CARMELITA MILLAN OBGYWM During your visit today, we recorded the following information about you: Blood pressure Weight Last Period 106/70 87.1 kg 06/23/24 Carmelita Millan MD 06/24/2024 [...] not amenable to office LEEP. [place] 06/24/2024 3:22 PM Signed YOUR RECOVERY It [...] contact your doctor's office. Referring Provider: ANGELA HAQ [[id number]] Allergies As of Date: 06/24/2024 Noted Allergy Reaction ZYRTEC (CETIRIZINE HCL) 05/08/2006 5 - Intolerance Comments: tremors Date Reviewed: 05/27/2024 Reviewed by: Jil Bailey APRN.EDUCATION ADMINISTRATOR - Fully Assessed Reason for Visit: Endometrial Biopsy [7501] Colposcopy [1551] Primary Visit Diagnosis:Atypical glandular cells of undetermined significa (more content not included)... Normal [facility] SURGICAL PATHOLOGYon 024 CASE REPORT Normal [facility] Comment on above: Order Comment: Speci men Type: TISSUE SPECIMENOrdering Facility: [facility] Address: [address] [place] [address] Result Comment: Surg ical Pathology Report Case: [id number] Authorizing Provider: Carmelita Millan MD Collected: 06/24/2024 04:06 PM Ordering Location: OB/Gynecology Received: 06/24/2024 04:44 PM Pathologist: Kylee Cullen MD Specimens: A) - Endometrium, Biopsy B) - Endocervix, Curettings C) - Cervix, Biopsy, 6 and 12 oclock Performed By: #### S ####[facility] LABCLIA [id number] [place] [address] [place] CLINICAL HISTORY ZENA Normal [facility] Comment on above: Order Comment: Speci men Type: TISSUE SPECIMENOrdering Facility: [facility] Address: [address] [place] [address] Performed By: #### S ####[facility] LABCLIA [id number] [place] [address] [place] FINAL DIAGNOSIS Normal [facility] Comment on above: Order Comment: Speci men Type: TISSUE SPECIMENOrdering Facility: [facility] Address: [address] [place] [address] Result Comment: A. E ndometrium, biopsy: -Inactive [...] and reactive changes. Performed By: #### S ####[facility] LABCLIA [id number] [address] [place] FINAL PERFORMING LAB Normal [facility] Comment on above: Order Comment: Speci men Type: TISSUE SPECIMENOrdering Facility: [facility] Address: [address] [place] [address] Result Comment: Diag nostic interpretation performed at [facility], [address] [place] [address] CLIA# [id number] Water Supply Technician: Donavon Chin M.D. Performed By: #### S ####[facility] LABCLIA [id number] [address] [place] GROSS DESCRIPTION Normal [facility] Comment on above: Order Comment: Speci men Type: TISSUE SPECIMENOrdering Facility: [facility] Address: [address] [place] [address] Result Comment: A. E ndometrium, Biopsy Received [...] 2024 12:43 AM Gross examination performed at [facility], [address] [place] [address] Performed By: #### S ####[facility] LABCLIA [id number] [id number] [place] UA DIP,URINE HCG (POC)on Beta HCG ( test) Ql (U) Negative Negative [facility] Comment on above: Location:[facility] [address], [place], [address] Clinical Research Director (POCT) Internal QC [place] [facility] Location:[facility] [address], [place], [address] [facility] POINT OF CARE [facility] CNOVon 05-27-2024 CNOV Office Visit (UCWSTR ) FADUMO HENSLEY ([id number]) 1995 F Date Time Provider Department 05/27/24 1:15 PM JIL BAILEY [facility] During your visit today, we recorded the following information about you: Temperature Pulse Respiration Blood pressure 97.4 degrees 105/minute 18/minute 108/74 Weight Last Period 86 kg 05/27/24 Jil Bailey APRN.EDUCATION ADMINISTRATOR 05/27/2024 1:09 PM Addendum (J02.9) Sore throat [...] changes in mental status, or other concerns. Jil Bailey APRN.EDUCATION ADMINISTRATOR 05/27/2024 1:29 PM Signed This note was created using NoteWriter. Subjective Fadumo Hensley is a 28 year [...] COVID-19 vaccine, age 12+ yr, 2022- season ([employer], [place]) 08/03/2022 Postponed until 08/03/2023 by Jocelyne Soliman LPN (Declined at this time) 07/06/2021 Imm Admin: COVID-19 original vaccine, age 12+ yr, monovalent ([employer] - PURPLE TOP) Sick contacts: yes. Smoking [...] Substances: Nicotin (more content not included)... Normal [facility] COVID AND INFLUENZA A/B AND RSV PCR, ROUTINEon 05-27-2024 SARS-CoV-2 (COVID-19) RNA JESSICA+probe Ql (Unsp spec) SARS-COV-2 (AGENT OF COVID-19) RNA: Not detected INFLUENZA A RNA: Not detected INFLUENZA B RNA: Not detected RESPIRATORY SYNCYTIAL VIRUS (RSV) RNA: Not detected Normal [facility] Comment on above: Performed By: #### C VFLRS ####[facility] LABCLIA [id number] [place] [address] [place] STREP A MOLECULAR (POC)on Procedural Control Valid [facility] Strep A (POCT) Negative Negative [facility] CNPNon 05-26-2024 CNPN Telephone (OBGYWM) FADUMO HENSLEY ([id number]) 1995 F Date Time Provider Department 05/26/24 ANGELA HAQ OBGYWCorie During your visit today, we recorded the following information about you: Angela Haq APRN.JAMES 05/26/2024 12:33 PM Signed Pap atypical glandular cells, HPV neg. She will need another colp this year. Order filed. Angela Haq APRN.Aliyah Armando RN 05/26/2024 2:00 PM Signed Patient notified. Scheduled colp 06/24. Asking if she can have something to relax her prior to the procedure because they are painful. Aware she would need a jinriksha driver and that RR returns tomorrow. BRIT Patel Rebecca L, MD 05/26/2024 2:37 PM Signed And EMB/ECC. Rx sent. Can take 1/2 tablet and 30 min take rest if desires. MD Monty Mccarthy Rebecca L, MD 05/26/2024 3:44 PM Signed my apologies, [...] finding of specimen from cervix [R87.618] Order(s):COLPOSCOPY [[id number]] Order #: [id number] Prescriptions as of 05/27/2024 - tiZANidine (ZANAFLEX) [...] 01/01/2023 Elevate (more content not included)... Normal [facility] MR/BMS.BPon 05-22-2024 MR/BMS.[address], [address] [place] [address] OFFICE VISIT Date of Service: 05/22/24 MR#: [id number] Acct: [id number] Name: FADUMO HENSLEY Rep #: [id number] : 1995 Provider: DIOGENES head Age/Sex: 28/F Location: [facility].BP Status: Signed Intake Vital Signs 04/30/24 11:31 05/22/24 13:25 Height 5 ft 7 in 5 ft 7 in BP 140/81 H Blood Pressure Location Rt brachial Position Sitting Pulse 99 Pulse Source Monitor BP Intake Visit Reasons: Follow up Is patient in pain?: No Allergies cetirizine (From yrte) Allergy (Verified 05/22/24 [...] Mental Status Exam - Psych Appearance casually dr (more content not included)... Normal [facility] CNOVon 05-19-2024 CNOV Office Visit (OBGYWM ) FADUMO HENSLEY ([id number]) 1995 F Date Time Provider Department 05/19/24 2:30 PM ANGELA HAQ OBGYWM During your visit today, we recorded the following information about you: Blood pressure Weight 122/68 87.1 kg Angela Haq APRN.CNP 05/19/2024 3:07 PM Signed Patient declined senior java developer. Fadumo presents for removal of IUD due [...] human papillomavirus (HPV) [Z11.51] Order(s):REMOVE INTRAUTERINE DEVICE [[id number]] Order #: [id number] Etonogestrel-Ethinyl Estradiol (NUVARING) 0.12-0.015 mg/24 hr vaginal ringUse 1 Each vaginally as directed. INSERT ONE(1) RING VAGINALLY AND LEAVE IN PLACE FOR THREE WEEKS, THEN REMOVE FOR 1 WEEK.Disp: 1 EachRfl: 3 PAP TEST [WEL5624] Order #: [id number]. #:[id number] Prescriptions as of 05/19/2024 - Etonogestrel-Ethinyl Estradiol [...] 01/01/2023 History (more content not included)... Normal [facility] HIGH RISK HUMAN PAPILLOMA OLIVE (HPV), PCR FOR DETECTION AND GENOTYPINGon 05-19-2024 HPV 16 Ag Ql (Unsp spec) Not detected Normal Not detected [facility] Comment on above: Order Comment: Speci men Type: FLUID SPECIMENOrdering Facility: [facility] Address: [address] [place] [address] Performed By: #### H PVHRT ####[facility] LABCLIA [id number] [place] [address] [place]#### [id number] ####[facility] LABORATORYCLIA [id number] [place] [address] [place] HPV 18 Ag Ql (Unsp spec) Not detected Normal Not detected [facility] Comment on above: Order Comment: Speci men Type: FLUID SPECIMENOrdering Facility: [facility] Address: [address] [place] [address] Performed By: #### H PVHRT ####[facility] LABCLIA [id number] [place] [address] [place]#### [id number] ####[facility]ENCE HEALTHIA [id number] [place] [address] [place] HPV 31+33+35+39+45+51+52+5 6+58+59+66+68 DNA JESSICA+probe Ql (Cvx) Not detected Normal Not detected [facility] Comment on above: Order Comment: Speci men Type: FLUID SPECIMENOrdering Facility: [facility] Address: [address] [place] [address] Result Comment: High Risk HPV Other Type includes HPV types 31, 33, 35, 39, 45, 51, 52, 56, 58, 59, 66 and 68. Performed By: #### H PVHRT ####[facility] LABCLIA [id number] [place] [address] [place]#### [id number] ####[facility] LABORATORYIA [id number] [place] [address] [place] PAP TESTon 05-19-2024 ADEQUACY Satisfactory for interpretation. Normal [facility] Comment on above: Order Comment: Speci men Type: FLUID SPECIMENOrdering Facility: [facility] Address: [address] [place] [address] Performed By: #### H PVHRT ####[facility] LABCLIA [id number] [place] [address] [place]#### [id number] ####[facility] LABORATORYIA [id number] [place] [address] [place] CASE REPORT Normal [facility] Comment on above: Order Comment: Speci men Type: FLUID SPECIMENOrdering Facility: [facility] Address: [address] [place] [address] Result Comment: Gyne cologic Cytology Report Case: [id number] Authorizing Provider: Angela Haq APRN.EDUCATION ADMINISTRATOR Collected: 05/19/2024 03:08 PM Ordering Location: OB/Gynecology Received: 05/19/2024 04:53 PM First Screen: Chey Fisher, CT, ASCP Pathologist: Aliyah Francois MD Specimen: Pap Test, ThinPrep, Cervix Performed By: #### H PVHRT ####[facility] LABCLIA [id number] [place] [address] [place]#### [id number] ####[facility] LABORATORYCLIA [id number] [place] [address] [place] CLINICAL HISTORY, CYTOLOGY, BOILER WASHER Previous LEEP Normal [facility] Comment on above: Order Comment: Speci men Type: FLUID SPECIMENOrdering Facility: [facility] Address: [address] [place] [address] Result Comment: Intr a Uterine Device, No Menses Performed By: #### H PVHRT ####[facility] LABCLIA [id number] [place] [address] [place]#### [id number] ####[facility] LABORATORYCLIA [id number] [place] [address] [place] FINAL PERFORMING LAB Normal [facility] Comment on above: Order Comment: Speci men Type: FLUID SPECIMENOrdering Facility: [facility] Address: [address] [place] [address] Result Comment: Tech nical component, police officer crime prevention screening performed at [facility], [address] [place] [address] CLIA# [id number] Diagnostic interpretation performed at [facility], [address] [place] [address] CLIA# [id number] Water Supply Technician: Rosanna Mock M.D. Performed By: #### H PVHRT ####[facility] LABCLIA [id number] [place] [address] [place]#### [id number] ####[facility] LABORATORYCLIA [id number] [place] [address] [place] INTERPRETATION, CYTOLOGY, BOILER WASHER Abnormal [facility] Comment on above: Order Comment: Speci men Type: FLUID SPECIMENOrdering Facility: [facility] Address: [address] [place] [address] Result Comment: Atyp ical glandular cells, endocervical type. Performed By: #### H PVHRT ####[facility] LABCLIA [id number] [place] [address] [place]#### [id number] ####[facility]ALTH[facility] [id number] [place] [address] [place] PAP DISCLAIMER COMMENT The Pap Smear is a screening test for cervical cancer. False negative results occur with all screening tests, emphasizing the need for rescreening at recommended intervals, and clinical correlation. Normal [facility] Comment on above: Order Comment: Speci men Type: FLUID SPECIMENOrdering Facility: [facility] Address: [address] [place] [address] Performed By: #### H PVHRT ####[facility] LABCLIA [id number] [place] [address] [place]#### [id number] ####[facility] LABORATORYCLIA [id number] [place] [id number] [place] PAP GENERAL CATEGORIZATION Epithelial Cell Abnormality Normal [facility] Comment on above: Order Comment: Speci men Type: FLUID SPECIMENOrdering Facility: [facility] Address: [address] [place] [address] Performed By: #### H PVHRT ####[facility] LABCLIA [id number] [place] [address] [place]#### [id number] ####[facility] LABORATORYCLIA [id number] [address] [place] PAP RENEWALS SPECIALIST COMMENT This specimen has be en analyzed by the ThinPrep Imaging System, an automated imaging and review system, which assists the laboratory in evaluating cells on ThinPrep Pap tests. Following automated imaging, selected fritz from every slide are reviewed by a police officer crime prevention. Normal [facility] Comment on above: Order Comment: Speci men Type: FLUID SPECIMENOrdering Facility: [facility] Address: [address] [place] [address] Performed By: #### H PVHRT ####[facility] LABCLIA [id number] [address]#### [id number] ####[facility] LABORATORYCLIA [id number] [address] ED Noteson 04-16-2024 Billet Shearer Authentication Interface Message Text Attempted to find patient at this time, not to be found in room. Appears patient eloped from ED at this time, MD aware Normal [facility] ED Provider Noteson 04-16-20 Billet Shearer Authentication Interface Message Text Attestation signed by [...] abscess. dental caries, and periapical lucencies. The LOAN ADMINISTRATOR tried to drain the patients face with [...] Tobacco Use: High Risk (04/15/2024) Received from [facility] Patient History Smoking Tobacco Use: Former Smokeless Tobacco Use: Current Passive Exposure: Not on file Physical Activity: Inactive (08/31/2023) Received from [facility] Exercise Vital Sign Days of Exercise per Week: 0 days Minutes of Exercise per Session: 0 min Stress: Stress Concern Present (08/31/2023) Received from [facility] [place] [facility] - Occupational Stress Questionnaire Feeling of Stress : To some extent Intimate Partner Violence: Not on file Depression: Not at risk (03/27/2024) Received from [facility] PHQ-2 PHQ-2 score: 2 Recent Concern: Depression - At risk (11/20/2023) Received from [facility] PHQ-2 PHQ-2 score: 4 Housing Stability: Not [...] DISCHARGE: New Prescriptions No medications on file Irene Saez, DO Emergency Medicine PGY-3 Normal [facility] [facility] CBC W Auto Differential pane l (Bld)on 04-15-2024 Basophils (Bld) [#/Vol] 0.02 10*3/uL [facility] Basophils/100 WBC (Bld) 0.2 % 0.0 - 2.0 % [facility] Eosinophils (Bld) [#/Vol] 0.09 10*3/uL [facility] Eosinophils/100 WBC (Bld) 0.9 % 0.0 - 6.0 % [facility] Erythrocyte distribution width (RBC) [Ratio] 11.9 % 11.5 - 14.5 % [facility] Hematocrit (Bld) [Volume fraction] 35.1 % Low 36.0 - 46.0 % [facility] Hemoglobin (Bld) [Mass/Vol] 12.0 g/dL 12.0 - 16.0 g/dL [facility] Immature granulocytes (Bld) [#/Vol] 0.03 10*3/uL [facility] Immature granulocytes/100 WBC (Bld) 0.3 % 0.0 - 0.9 % [facility] Comment on above: Immature Granulocyte Count (IG) includes promyelocytes, myelocytes and metamyelocytes but does not include bands. Percent differential counts (%) should be interpreted in the context of the absolute cell counts (cells/UL). Interpretation and review of laboratory results Abnormal [facility] Lymphocytes (Bld) [#/Vol] 2.73 10*3/uL [facility] Lymphocytes/100 WBC (Bld) 27.0 % 13.0 - 44.0 % [facility] MCH (RBC) [Entitic mass] 31.3 pg 26.0 - 34.0 pg [facility] MCHC (RBC) [Mass/Vol] 34.2 g/dL 32.0 - 36.0 g/dL [facility] MCV (RBC) [Entitic vol] 91 fL 80 - 100 fL [facility] Monocytes (Bld) [#/Vol] 0.63 10*3/uL [facility] Monocytes/100 WBC (Bld) 6.2 % 2.0 - 10.0 % [facility] Neutrophils (Bld) [#/Vol] 6.60 10*3/uL [facility] Comment on above: Percent differential counts (%) should be interpreted in the context of the absolute cell counts (cells/uL). Neutrophils/100 WBC (Bld) 65.4 % 40.0 - 80.0 % [facility] Nucleated RBC/100 WBC (Bld) [Ratio] 0.0 % [facility] Platelets (Bld) [#/Vol] 242 10*3/uL [facility] RBC (Bld) [#/Vol] 3.84 10*6/uL [facility] WBC (Bld) [#/Vol] 10.1 10*3/uL [facility] CT Neck W contrast Christopher 09-2 Extensive right faci al fat stranding, soft [...] Aliyah Betancourt 04/15/2024 2:51 PM Dictation workstation: [id number] MMODAL Interpreted By: Aliyah Ramos, STUDY: CT SOFT TISSUE NECK W IV CONTRAST; 04/15/2024 2:39 pm INDICATION: Signs/Symptoms:right facial swelling/dental pain. COMPARISON: None. ACCESSION NUMBER(S): [id number] ORDERING CLINICIAN: WILVER MORA TECHNIQUE: Axial CT [...] facial swelling/dental pain. COMPARISON: None. ACCESSION NUMBER(S): [id number] ORDERING CLINICIAN: WILVER MORA TECHNIQUE: Axial CT [...] Aliyah Betancourt 04/15/2024 2:51 PM Dictation workstation: [id number] [facility] Work Phone: Radiology Study observation (narrative) [facility] Work Phone: CT Neck W contrast IVOrdered By: Aliyah Betancourt on 04-15-2024 [facility] Work Phone: Comprehensive metabolic 2000 panelon 04-15-2024 Albumin BCP dye [Mass/Vol] 4.4 g/dL 3.4 - 5.0 g/dL [facility] ALP [Catalytic activity/Vol] 86 U/L 33 - 110 U/L [facility] ALT With P-5'-P [Catalytic activity/Vol] 19 U/L 7 - 45 U/L [facility] Comment on above: Patients treated wit h Sulfasalazine may generate falsely decreased results for ALT. Anion gap [Moles/Vol] 10 mmol/L 10 - 2 0 mmol/L [facility] AST With P-5'-P [Catalytic activity/Vol] 18 U/L 9 - 39 U/L [facility] Bilirubin [Mass/Vol] 0.9 mg/dL 0.0 - 1 .2 mg/dL [facility] Calcium [Mass/Vol] 8.9 mg/dL 8.6 - 10. 3 mg/dL [facility] Chloride [Moles/Vol] 107 mmol/L 98 - 10 7 mmol/L [facility] CO2 [Moles/Vol] 24 mmol/L 21 - 32 mmol/L [facility] Creatinine [Mass/Vol] 0.62 mg/dL 0.50 - 1.05 mg/dL [facility] eGFR - PINF [facility] Comment on above: Calculations of jamila mated GFR are performed using the 2020 CKD-EPI Study Refit equation without the race variable for the IDMS-Traceable creatinine methods. https://jasn.asnjournals.org/content//ASN.18274 44677 Glucose [Mass/Vol] 93 mg/dL 74 - 99 mg/dL [facility] Potassium [Moles/Vol] 3.7 mmol/L 3.5 - 5.3 mmol/L [facility] Protein [Mass/Vol] 7.3 g/dL 6.4 - 8.2 g/dL [facility] Sodium [Moles/Vol] 137 mmol/L 136 - 145 mmol/L [facility] Urea nitrogen [Mass/Vol] 12 mg/dL 6 - 23 mg/dL [facility] Lactateon 04-15-2024 Lactate [Moles/Vol] 0.8 mmol/L 0.4 - 2. 0 mmol/L [facility] Lactate [Moles/Vol]on 2023 Venipuncture immediately after or during the administration of Metamizole may lead to falsely low results. Testing should be performed immediately prior to Metamizole dosing. [facility] No Panel Informationon 04-15 Interpretation and review of laboratory results Normal [facility] .Auto Diffon 04-10-2024 Basophil, Absolute 0.0 10 3/mcL Normal 0.0-0.2 [facility] Comment on above: Performed By: #### A ESTHER, GFR, CMP, MDW, CBC, LIP, ADIFF #### [address] [address] Basophils/100 WBC (Bld) 0.5 % Normal 0.0-2.5 [facility] Comment on above: Performed By: #### A ESTHER, GFR, CMP, MDW, CBC, LIP, ADIFF #### [address] [address] Eosinophil, Absolute 0.1 10 3/mcL Normal 0.0-0.4 [facility] Comment on above: Performed By: #### A ESTHER, GFR, CMP, MDW, CBC, LIP, ADIFF #### [address] [address] Eosinophils/100 WBC (Bld) 1.1 % Normal 0.0-7.0 [facility] Comment on above: Performed By: #### A ESTHER, GFR, CMP, MDW, CBC, LIP, ADIFF #### [address] [address] Lymphocyte, Absolute 3.6 10 3/mcL Normal 0.8-3.9 [facility] Comment on above: Performed By: #### A ESTHER, GFR, CMP, MDW, CBC, LIP, ADIFF #### [address] [address] Lymphocytes/100 WBC (Bld) 38.7 % Normal 10.0-50.0 [facility] Comment on above: Performed By: #### A ESTHER, GFR, CMP, MDW, CBC, LIP, ADIFF #### [address] [address] Monocyte, Absolute 0.6 10 3/mcL Normal 0.2-1.0 [facility] Comment on above: Performed By: #### A ESTHER, GFR, CMP, MDW, CBC, LIP, ADIFF #### [address] [address] Monocytes/100 WBC (Bld) 6.7 % Normal 1.7-13.0 [facility] Comment on above: Performed By: #### A ESTHER, GFR, CMP, MDW, CBC, LIP, ADIFF #### [address] [address] Neutrophils/100 WBC (Bld) 53.0 % Normal 37.0-80.0 [facility] Comment on above: Performed By: #### A ESTHER, GFR, CMP, MDW, CBC, LIP, ADIFF #### [address] [address] .GFRon 04-10-2024 GFR Non- 92 ml/min/1.73sqm Normal [facility] Comment on above: Result Comment: GFR Population [...] ESTHER, GFR, CMP, MDW, CBC, LIP, ADIFF ####[id number] [place], [place] [address] GFR 112 ml/min/1.73sqm Normal [facility] Comment on above: Result Comment: GFR Population [...] ESTHER, GFR, CMP, MDW, CBC, LIP, ADIFF ####[address] [place], [place] [address] .MDWon 04-10-2024 Monocyte Distribution Width 17.04 Normal 0.00-20.00 [facility] Comment on above: Result Comment: For ED adult patients suspected of sepsis, MDW<=20.0 does not rule out sepsis or risk of sepsis Performed By: #### A ESTHER, GFR, CMP, MDW, CBC, LIP, ADIFF #### [place] [address] [place], [place] [address] .NEUABSon 04-10-2024 Neutrophil, Absolute 5.0 10 3/mcL Normal 2.9-6.2 [facility] Comment on above: Performed By: #### A ESTHER, GFR, CMP, MDW, CBC, LIP, ADIFF #### [place] [address] CBCon 04-10-2024 Erythrocyte distribution width (RBC) [Ratio] 12.4 % Normal 11.5-14.5 [facility] Comment on above: Performed By: #### A ESTHER, GFR, CMP, MDW, CBC, LIP, ADIFF #### [place] [address] Hematocrit (Bld) [Volume fraction] 37.9 % Normal 37.0-47.0 [facility] Comment on above: Performed By: #### A ESTHER, GFR, CMP, MDW, CBC, LIP, ADIFF #### [place] [address] Hgb 13.2 G/dL Normal 12.0-16.0 [facility] Comment on above: Performed By: #### A ESTHER, GFR, CMP, MDW, CBC, LIP, ADIFF #### [place] [address] MCH (RBC) [Entitic mass] 31.9 pg High 27.0-31.2 [facility] Comment on above: Performed By: #### A ESTHER, GFR, CMP, MDW, CBC, LIP, ADIFF #### [place] [address] MCHC 34.9 G/dL Normal 33.0-37.0 [facility] Comment on above: Performed By: #### A ESTHER, GFR, CMP, MDW, CBC, LIP, ADIFF #### [place] [address] MCV (RBC) [Entitic vol] 91.5 fL Normal 80.0-94.0 [facility] Comment on above: Performed By: #### A ESTHER, GFR, CMP, MDW, CBC, LIP, ADIFF #### [address] [address] Platelet 287 10 3/mcL Normal 130-400 [facility] Comment on above: Performed By: #### A ESTHER, GFR, CMP, MDW, CBC, LIP, ADIFF #### [address] [address] Platelet mean volume (Bld) [Entitic vol] 7.9 fL Normal 7.4-10.4 [facility] Comment on above: Performed By: #### A ESTHER, GFR, CMP, MDW, CBC, LIP, ADIFF #### [address] [address] RBC 4.15 10 6/mcL Low 4.20-5.40 [facility] Comment on above: Performed By: #### A ESTHER, GFR, CMP, MDW, CBC, LIP, ADIFF #### [address] [address] WBC 9.4 10 3/mcL Normal 4.6-10.8 [facility] Comment on above: Performed By: #### A ESTHER, GFR, CMP, MDW, CBC, LIP, ADIFF #### [address] [address] CMPon 04-10-2024 Albumin Level 4.3 G/dL Normal 3.5-5.0 [facility] Comment on above: Performed By: #### A ESTHER, GFR, CMP, MDW, CBC, LIP, ADIFF #### [address] [address] Albumin/Globulin [Mass ratio] 1.3 {ratio} Normal 1.1-2.5 [facility] Comment on above: Performed By: #### A ESTHER, GFR, CMP, MDW, CBC, LIP, ADIFF #### [address] [address] ALP [Catalytic activity/Vol] 102 U/L Normal 40-135 [facility] Comment on above: Performed By: #### A ESTHER, GFR, CMP, MDW, CBC, LIP, ADIFF #### [address] [address] ALT [Catalytic activity/Vol] 30 U/L Normal 14-59 [facility] Comment on above: Performed By: #### A ESTHER, GFR, CMP, MDW, CBC, LIP, ADIFF #### [address] [address] AST [Catalytic activity/Vol] 15 U/L Normal 10-40 [facility] Comment on above: Performed By: #### A ESTHER, GFR, CMP, MDW, CBC, LIP, ADIFF #### [address] [address] Bili Total 1.3 mg/dL High 0.2-1.0 [facility] Comment on above: Result Comment: Use of this assay is not recommended for patients undergoing treatment with eltrombopag due to the potential for falsely elevated results. Performed By: #### A ESTHER, GFR, CMP, MDW, CBC, LIP, ADIFF #### [address] [address] BUN/Creatinine Ratio 19 ratio Normal 7-27 [facility] Comment on above: Performed By: #### A ESTHER, GFR, CMP, MDW, CBC, LIP, ADIFF #### [address] [address] Calcium [Mass/Vol] 9.1 mg/dL Normal 8.4-10.[address] [facility] Comment on above: Performed By: #### A ESTHER, GFR, CMP, MDW, CBC, LIP, ADIFF #### [address] [address] Chloride [Moles/Vol] 105 mmol/L Normal 98-107 [facility] Comment on above: Performed By: #### A ESTHER, GFR, CMP, MDW, CBC, LIP, ADIFF #### [address] [address] CO2 [Moles/Vol] 27 mmol/L Normal 22-29 [facility] Comment on above: Performed By: #### A ESTHER, GFR, CMP, MDW, CBC, LIP, ADIFF #### [address] [address] Creatinine [Mass/Vol] 0.74 mg/dL Normal 0.55-1.02 [facility] Comment on above: Result Comment: Test ing performed on Siemens Dimension EXL analyzer using a modified kinetic Sher technique. Performed By: #### A ESTHER, GFR, CMP, MDW, CBC, LIP, ADIFF #### [address] [address] Electrolyte Balance 8.0 mEq/L Normal 4.0-15.0 [facility] Comment on above: Performed By: #### A ESTHER, GFR, CMP, MDW, CBC, LIP, ADIFF #### [address] [address] Globulin 3.3 G/dL Normal [facility] Comment on above: Performed By: #### A ESTHER, GFR, CMP, MDW, CBC, LIP, ADIFF #### [address] [address] Glucose [Mass/Vol] 83 mg/dL Normal 70-[address] [facility] Comment on above: Performed By: #### A ESTHER, GFR, CMP, MDW, CBC, LIP, ADIFF #### [address] [address] Potassium [Moles/Vol] 3.3 mmol/L Low 3.5-5.1 [facility] Comment on above: Performed By: #### A ESTHER, GFR, CMP, MDW, CBC, LIP, ADIFF #### [address] [address] Sodium [Moles/Vol] 140 mmol/L Normal 136-[address] [facility] Comment on above: Performed By: #### A ESTHER, GFR, CMP, MDW, CBC, LIP, ADIFF #### [address] [address] Total Protein 7.6 G/dL Normal 6.4-8.2 [facility] Comment on above: Performed By: #### A ESTHER, GFR, CMP, MDW, CBC, LIP, ADIFF #### [facility] [address] [place], [place] [address] Urea nitrogen [Mass/Vol] 14 mg/dL Normal 7-18 [facility] Comment on above: Performed By: #### A ESTHER, GFR, CMP, MDW, CBC, LIP, ADIFF #### [facility] [address] [place], [place] [address] CT ABD/PELVIS W/ IV CONTRAST ONLYon 04-10-2024 [...] Date: 04/10/2024 10:36:06 PM Ordering Provider: ROB Paige [facility] CVFLURCamron 04-10-2024 FLU A PCR Negative Normal Negative [facility] Comment on above: Performed By: #### C VFLURV ####[facility] [place], [place] [address] FLU B PCR Negative Normal Negative [facility] Comment on above: Performed By: #### C VFLURV ####[place] [address] [place], [place] [address] RSV PCR Negative Normal Negative [facility] Comment on above: Performed By: #### C VFLURV ####[facility] [place], [place] [address] SARS-CoV-2 (COVID-19) RNA JESSICA+probe Ql (Unsp spec) Negative Normal Negative [facility] Comment on above: Result Comment: Resu [...] results. Performed By: #### C VFLURV ####[place] [place], [place] [address] LABORATORYOrdered By: SYSTEM SYSTEM on 04-10-2024 Albumin [...] Comment on above: Interpretive Data: Aj rain [employer] (CHEST, 1992, 102:312S-25S) [...] Ql (U) Negative Normal Negative AO Auto Urine SS test (u) int Not detected Invalid [...] Lactic Acid Lvl 1.3 mmol/L Normal 0.4-2.0 [facility] Comment on above: Performed By: #### L AC, PRO #### [address] [address] LIPon 04-10-2024 Lipase Level 39 U/L Normal 16-77 [facility] Comment on above: Performed By: #### A ESTHER, GFR, CMP, MDW, CBC, LIP, ADIFF #### [address] [address] PREGUon 04-10-2024 HCG ( test) Ql (U) Negative Normal [facility] Comment on above: Performed By: #### U A, PREGU ####[place] [address] test (u) int Not detected Invalid Interpretation Code [facility] Comment on above: Performed By: #### U A, PREGU ####[address] [address] PROon 04-10-2024 PT Coag (PPP) [Time] 11.1 s Normal 9.0-14.4 [facility] Comment on above: Performed By: #### L AC, PRO #### [place] [address] PT International Ratio 1.0 Normal [facility] Comment on above: Result Comment: [employer] (CHEST, 1992, 102:312S-25S) recommended therapeutic range for oral anticoagulant therapy is: LOW RISK: Prophylaxis of venous thrombosis INR: 2.0-3.0 Treatment of pulmonary embolism 2.0-3.0 Prevention of systemic embolism 2.0-3.0 HIGH RISK: Mechanical prosthetic valves 2.5-3.5 Performed By: #### L AC, PRO #### [address] [address] UAon 04-10-2024 Color (U) Yellow Normal [facility] Comment on above: Performed By: #### U A, PREGU ####[address] [place] [address] Glucose (U) [Mass/Vol] Negative Normal Negative [facility] Comment on above: Performed By: #### U A, PREGU ####[address] [place] [address] Ketones Ql (U) Negative Normal Negative [facility] Comment on above: Performed By: #### U A, PREGU ####[place] [address] [address] UA Appear Clear Normal Clear [facility] Comment on above: Performed By: #### U A, PREGU ####[place] [address] [address] UA Blood Negative Normal Negative [facility] Comment on above: Performed By: #### U A, PREGU ####[place] [address] [place] [address] UA Leuk Est Negative Normal Negative [facility] Comment on above: Performed By: #### U A, PREGU ####[place] [address] [place] [address] UA Nitrite Negative Normal Negative [facility] Comment on above: Performed By: #### U A, PREGU ####[place] [address] [address] UA pH 6.0 Normal 5.0 - 8.0 [facility] Comment on above: Performed By: #### U A, PREGU ####[place] [address] [address] UA Protein Negative Normal Negative [facility] Comment on above: Performed By: #### U A, PREGU ####[place] [address] [address] UA Spec Grav >=1.030 Abnormal 1.015-1.025 [facility] Comment on above: Performed By: #### U A, PREGU ####[place] [address] [address] UA Specimen Type Void Normal [facility] Comment on above: Performed By: #### U A, PREGU ####[facility] [place], [place] [address] UA Urobilinogen 0.2 E.U./dL Normal 0.2-1.0 [facility] Comment on above: Performed By: #### U A, PREGU ####[facility] [place], [place] [address] Urobilinogen (U) [Mass/Vol] Negative Normal Negative [facility] Comment on above: Performed By: #### U A, PREGU ####[place] [place], [place] [address] XR CHEST 1 VIEWon 04-10-2024 XR CHEST [...] 04/10/2024 9:57:53 PM Ordering Provider: ROB Paige [facility] ALLIED HEALTHon 03-28-2024 ALLIED HEALTH HNO ID: [id number] Author: DOT SERVIN RT(R) Service: Radiology Author Type: Manager Treasury Type: Allied Health Filed: 03/28/2024 17:29 Note [...] PATIENT PRESENTS WITH AN IMPLANTABLE OR ATTACHED TRANSPORTATION BROKER: No RADIOLOGY DEPARTMENT: General X-ray: Exam(s) Completed: Chest X-Ray PERIPHERAL IV DATA: Not applicable SIGNED BY: RT Ang(R) March 28, 2024 5:28 PM [facility] CBC W Auto Differential pane l (Bld)on 03-28-2024 Basophils (Bld) [#/Vol] 0.04 10*3/uL Normal <0.11 [facility] Comment on above: Order Comment: Speci men Type: BLOOD SPECIMEN Ordering Facility: [facility] Address: [address] [place] [address] Performed By: #### 5 7021-8 #### [facility] CLIA [id number] [address] [place] [address] [place] Basophils/100 WBC (Bld) 0.5 % Normal [facility] Comment on above: Order Comment: Speci men Type: BLOOD SPECIMEN Ordering Facility: [facility] Address: [address] [place] [address] Performed By: #### 5 7021-8 #### [facility] CLIA [id number] [address] [place] [address] [place] Differential cell count method Nom (Bld) Auto [facility] Comment on above: Order Comment: Speci men Type: BLOOD SPECIMEN Ordering Facility: [facility] Address: [facility] [place] [address] Performed By: #### 5 7021-8 #### [facility] CLIA [id number] [address] [place] [address] [place] Eosinophils (Bld) [#/Vol] 0.08 10*3/uL Normal <0.46 [facility] Comment on above: Order Comment: Speci men Type: BLOOD SPECIMEN Ordering Facility: [facility] Address: [address] [place] [address] Performed By: #### 5 7021-8 #### [facility] CLIA [id number] [address] Eosinophils/100 WBC (Bld) 1.0 % Normal [facility] Comment on above: Order Comment: Speci men Type: BLOOD SPECIMEN Ordering Facility: [facility] Address: [address] [place] [address] Performed By: #### 5 7021-8 #### [facility] CLIA [id number] [address] Erythrocyte distribution width (RBC) [Ratio] 11.8 % Normal 11.5-15.0 [facility] Comment on above: Order Comment: Speci men Type: BLOOD SPECIMEN Ordering Facility: [facility] Address: [address] [place] [address] Performed By: #### 5 7021-8 #### [facility] CLIA [id number] [address] Hematocrit (Bld) [Volume fraction] 35.6 % Low 36.0-46.0 [facility] Comment on above: Order Comment: Speci men Type: BLOOD SPECIMEN Ordering Facility: [facility] Address: [address] [place] [address] Performed By: #### 5 7021-8 #### [facility] CLIA [id number] [address] [place] Hemoglobin (Bld) [Mass/Vol] 12.1 g/dL Normal 11.5-15.5 [facility] Comment on above: Order Comment: Speci men Type: BLOOD SPECIMEN Ordering Facility: [facility] Address: [address] [place] [address] Performed By: #### 5 7021-8 #### [facility] CLIA [id number] [address] [place] Immature granulocytes (Bld) [#/Vol] 0.03 10*3/uL Normal <0.10 [facility] Comment on above: Order Comment: Speci men Type: BLOOD SPECIMEN Ordering Facility: [facility] Address: [address] [place] [address] Performed By: #### 5 7021-8 #### [facility] CLIA [id number] [address] Immature granulocytes/100 WBC (Bld) 0.4 % Normal [facility] Comment on above: Order Comment: Speci men Type: BLOOD SPECIMEN Ordering Facility: [facility] Address: [address] [place] [address] Performed By: #### 5 7021-8 #### [facility] CLIA [id number] [address] Lymphocytes (Bld) [#/Vol] 1.96 10*3/uL Normal 1.00-4.00 [facility] Comment on above: Order Comment: Speci men Type: BLOOD SPECIMEN Ordering Facility: [facility] Address: [address] [place] [address] Performed By: #### 5 7021-8 #### [facility] CLIA [id number] [address] Lymphocytes/100 WBC (Bld) 24.1 % Normal [facility] Comment on above: Order Comment: Speci men Type: BLOOD SPECIMEN Ordering Facility: [facility] Address: [address] [place] [address] Performed By: #### 5 7021-8 #### [facility] CLIA [id number] [address] MCH (RBC) [Entitic mass] 31.3 pg Normal 26.0-34.0 [facility] Comment on above: Order Comment: Speci men Type: BLOOD SPECIMEN Ordering Facility: [facility] Address: [address] [place] [address] Performed By: #### 5 7021-8 #### [facility] CLIA [id number] [address] [place] MCHC (RBC) [Mass/Vol] 34.0 g/dL Normal 30.5-36.0 [facility] Comment on above: Order Comment: Speci men Type: BLOOD SPECIMEN Ordering Facility: [facility] Address: [address] [place] [address] Performed By: #### 5 7021-8 #### [facility] CLIA [id number] [address] [place] [address] [place] MCV (RBC) [Entitic vol] 92.0 fL Normal 80.0-100.0 [facility] Comment on above: Order Comment: Speci men Type: BLOOD SPECIMEN Ordering Facility: [facility] Address: [address] [place] [address] Performed By: #### 5 7021-8 #### [facility] CLIA [id number] [address] [place] Monocytes (Bld) [#/Vol] 0.55 10*3/uL Normal <0.87 [facility] Comment on above: Order Comment: Speci men Type: BLOOD SPECIMEN Ordering Facility: [facility] Address: [address] [place] [address] Performed By: #### 5 7021-8 #### [facility] CLIA [id number] [address] Monocytes/100 WBC (Bld) 6.8 % Normal [facility] Comment on above: Order Comment: Speci men Type: BLOOD SPECIMEN Ordering Facility: [facility] Address: [address] [place] [address] Performed By: #### 5 7021-8 #### [facility] CLIA [id number] [address] [place] [address] [place] Neutrophils (Bld) [#/Vol] 5.48 10*3/uL Normal 1.45-7.50 [facility] Comment on above: Order Comment: Speci men Type: BLOOD SPECIMEN Ordering Facility: [facility] Address: [address] [place] [address] Performed By: #### 5 7021-8 #### [facility] CLIA [id number] [address] [place] Neutrophils/100 WBC (Bld) 67.2 % Normal [facility] Comment on above: Order Comment: Speci men Type: BLOOD SPECIMEN Ordering Facility: [facility] Address: [facility] [place] [address] Performed By: #### 5 7021-8 #### [facility] CLIA [id number] [address] [place] Nucleated RBC (Bld) [#/Vol] 10*3/uL Normal <0.01 [facility] Comment on above: Order Comment: Speci men Type: BLOOD SPECIMEN Ordering Facility: [facility] Address: [address] [place] [address] Performed By: #### 5 7021-8 #### [facility] CLIA [id number] [address] Nucleated RBC/100 WBC (Bld) [Ratio] 0.0 /100 WBC Normal [facility] Comment on above: Order Comment: Speci men Type: BLOOD SPECIMEN Ordering Facility: [facility] Address: [address] [place] [address] Performed By: #### 5 7021-8 #### [facility] CLIA [id number] [address] OF [place] Platelet mean volume (Bld) [Entitic vol] 9.7 fL Normal 9.0-12.7 [facility] Comment on above: Order Comment: Speci men Type: BLOOD SPECIMEN Ordering Facility: [facility] Address: [address] [place] [address] Performed By: #### 5 7021-8 #### [facility] CLIA [id number] [address] [place] [address] [place] Platelets (Bld) [#/Vol] 249 10*3/uL Normal 150-400 [facility] Comment on above: Order Comment: Speci men Type: BLOOD SPECIMEN Ordering Facility: [facility] Address: [address] [place] [address] Performed By: #### 5 7021-8 #### [facility] CLIA [id number] [address] [place] [address] [place] RBC (Bld) [#/Vol] 3.87 10*6/uL Low 3.90-5.20 [facility] Comment on above: Order Comment: Speci men Type: BLOOD SPECIMEN Ordering Facility: [facility] Address: [address] [place] [address] Performed By: #### 5 7021-8 #### [facility] CLIA [id number] [address] OF [facility] WBC (Bld) [#/Vol] 8.14 10*3/uL Normal 3.70-11.00 [facility] Comment on above: Order Comment: Speci men Type: BLOOD SPECIMEN Ordering Facility: [facility] Address: [address] [place] [address] Performed By: #### 5 7021-8 #### [facility] CLIA [id number] [address] Comprehensive metabolic 2000 panelon 03-28-2024 Albumin [Mass/Vol] 4.1 g/dL Normal 3.9-4.9 [facility] Comment on above: Order Comment: Speci men Type: BLOOD SPECIMEN Ordering Facility: [facility] Address: [address] [place] [address] Performed By: #### 2 4323-8, HSTNT, #### [facility] CLIA [id number] [address] OF [facility] ALP [Catalytic activity/Vol] 87 U/L Normal 34-123 [facility] Comment on above: Order Comment: Speci men Type: BLOOD SPECIMEN Ordering Facility: [facility] Address: [address] [place] [address] Performed By: #### 2 4323-8, HSTNT, 68858-4 #### [facility] CLIA [id number] [address] ALT [Catalytic activity/Vol] 30 U/L Normal 7-38 [facility] Comment on above: Order Comment: Speci men Type: BLOOD SPECIMEN Ordering Facility: [facility] Address: [address] [place] [address] Performed By: #### 2 4323-8, HSTNT, #### [facility] CLIA [id number] [address] [place] [address] [place] Anion gap [Moles/Vol] 10 mmol/L Normal 8-15 [facility] Comment on above: Order Comment: Speci men Type: BLOOD SPECIMEN Ordering Facility: [facility] Address: [address] [place] [address] Performed By: #### 2 4323-8, HSTNT, #### [facility] CLIA [id number] [address] [place] [address] [place] AST [Catalytic activity/Vol] 26 U/L Normal 13-35 [facility] Comment on above: Order Comment: Speci men Type: BLOOD SPECIMEN Ordering Facility: [facility] Address: [address] [place] [address] Performed By: #### 2 4323-8, HSTNT, #### [facility] CLIA [id number] [address] [place] [address] [place] Bilirubin [Mass/Vol] 1.8 mg/dL High 0.2-1.3 [facility] Comment on above: Order Comment: Speci men Type: BLOOD SPECIMEN Ordering Facility: [facility] Address: [address] [place] [address] Performed By: #### 2 4323-8, HSTNT, #### [facility] CLIA [id number] [address] [place] [address] [place] Calcium [Mass/Vol] 9.0 mg/dL Normal 8.5-10.2 [facility] Comment on above: Order Comment: Speci men Type: BLOOD SPECIMEN Ordering Facility: [facility] Address: [address] [place] [address] Performed By: #### 2 4323-8, HSTNT, #### [facility] CLIA [id number] [address] [place] [address] [place] Chloride [Moles/Vol] 103 mmol/L Normal 98-107 [facility] Comment on above: Order Comment: Speci men Type: BLOOD SPECIMEN Ordering Facility: [facility] Address: [address] [place] [address] Performed By: #### 2 4323-8, HSTNT, #### [facility] CLIA [id number] [address] [place] [address] [place] CO2 [Moles/Vol] 23 mmol/L Normal 22-30 [facility] Comment on above: Order Comment: Speci men Type: BLOOD SPECIMEN Ordering Facility: [facility] Address: [address] [place] [address] Performed By: #### 2 4323-8, HSTNT, #### [facility] CLIA [id number] [address] [place] [address] [place] Creatinine [Mass/Vol] 0.59 mg/dL Normal 0.58-0.96 [facility] Comment on above: Order Comment: Speci men Type: BLOOD SPECIMEN Ordering Facility: [facility] Address: [address] [place] [address] Performed By: #### 2 4323-8, HSTNT, #### [facility] CLIA [id number] [address] [place] [facility] Creatinine and Glomerular filtration rate.predicted panel (S/P/Bld) 125 mL/min/1.73m??? Normal >=60 [facility] Comment on above: Order Comment: Speci men Type: BLOOD SPECIMEN Ordering Facility: [facility] Address: [address] [place] [address] Result Comment: Jamila mated Glomerular Filtration Rate (eGFR) is calculated [...] 2 4323-8, HSTNT, #### [facility] CLIA [id number] [address] [place] [address] [place] Glucose [Mass/Vol] 91 mg/dL Normal 74-99 [facility] Comment on above: Order Comment: Gray briones Type: BLOOD SPECIMEN Ordering Facility: [facility] Address: [address] [place] [address] Result Comment: The [place] Diabetes Association (ADA) provides guidance for cutoff [...] Standards of Medical Care in Diabetes 2016, [place] [employer] Association. Diabetes Care. 2016.39(Suppl 1). Performed By: #### 2 4323-8, HSTNT, #### [facility] CLIA [id number] [address] [place] [address] [place] Potassium [Moles/Vol] 4.0 mmol/L Normal 3.7-5.1 [facility] Comment on above: Order Comment: Gray briones Type: BLOOD SPECIMEN Ordering Facility: [facility] Address: [address] [place] [address] Performed By: #### 2 4323-8, HSTNT, #### [facility] CLIA [id number] [address] [place] [address] [place] Protein [Mass/Vol] 7.0 g/dL Normal 6.3-8.0 [facility] Comment on above: Order Comment: Gray briones Type: BLOOD SPECIMEN Ordering Facility: [facility] Address: [address] [place] [address] Performed By: #### 2 4323-8, HSTNT, #### [facility] CLIA [id number] [address] [place] [address] [place] Sodium [Moles/Vol] 136 mmol/L Normal 136-144 [facility] Comment on above: Order Comment: Gray briones Type: BLOOD SPECIMEN Ordering Facility: [facility] Address: [address] [place] [address] Performed By: #### 2 4323-8, HSTNT, #### [facility] CLIA [id number] [address] Urea nitrogen [Mass/Vol] 11 mg/dL Normal 7-21 [facility] Comment on above: Order Comment: Speci men Type: BLOOD SPECIMEN Ordering Facility: [facility] Address: [address] [place] [address] Performed By: #### 2 4323-8, HSTNT, #### [facility] CLIA [id number] [address] ED NOTEon 03-28-2024 ED NOTE HNO ID: [id number] Author: VIRGINIE WANG RN Service: Nursing Author Type: Registered Nurse Type: ED Notes Filed: 03/28/2024 18:50 Note Text: Pt discharged to home in stable condition. No noted distress - respirations equal and unlabored. AVS and medications reviewed with patient at bedside. Pt verbalized understanding and importance of follow up care. No questions for this RN at this time. [facility] ED NOTE HNO ID: [id number] Author: ANNAMARIE LERMA RN Service: ? Author Type: Registered Nurse Type: ED Notes Filed: 03/28/2024 17:14 Note Text: Report off to virginie PEREA at this time [facility] ED PROV NOTEon 03-28-2024 ED PROV NOTE HNO ID: [id number] Author: ANKIAT STERLING PA-C Service: ? Author Type: Physician Child Day Care Provider Type: ED Provider Notes Filed: 03/28/2024 18:16 [...] Supplies and referrals ordered. Sulma Bartholomew APRN.KRYSTYNAM No date: Generalized anxiety disorder No date: [...] UTERI CONIZA LP ELCTRO EXCI Comment: at [facility]-Dr. Millan 01/01/2010: PAST SURGICAL HISTORY OF Comment: Removal of 4 [place] Teeth No date: PAST SURGICAL HISTORY OF [...] I have used multiple drugs in the past" Sexual activity: Yes Partners: Male control/protection: Inserts [...] pain, h (more content not included)... Normal [facility] EKGon 03-28-2024 Electrocardiogram Ventricular Rate : 8 5 BPM Atrial Rate : 85 BPM P-R Interval : 132 ms QRS Duration : 134 ms Q-T Interval : 412 ms QTC Calculation(Bazett) : 490 ms Calculated P Chester : 66 degrees Calculated R Chester : 79 degrees Calculated T Chester : 57 degrees NORMAL SINUS RHYTHM RIGHT BUNDLE BRANCH BLOCK ABNORMAL ECG NO STEMI. Confirmed by ALAINA AGUILERA DO ([id number]), story editor IRVIN JIMENEZ ([id number]) on 03/31/2024 8:26:12 AM NAME : FADUMO HENSLEY PID : [id number] : 1995 Gender : Female Race : ORD : Procedure Date : Mar 28 2024 17:01:43 Edit Date : Mar 31 2024 08:33:30 Diagnosis: NORMAL SINUS RHYTHM RIGHT BUNDLE BRANCH BLOCK ABNORMAL ECG NO STEMI. Confirmed by ALAINA AGUILERA DO ([id number]), story editor IRVIN JIMENEZ ([id number]) on 03/31/2024 8:26:12 AM Test Reason : Location : 1 : ER ED Overread By : ALAINA AGUILERA DO Edited By : IRVIN JIMENEZ Referred By : , Acquired by : [id number], Normal [facility] HIGH SENSITIVITY TROPONIN To n 03-28-2024 Troponin T.cardiac High sensitivity method [Mass/Vol] <6 Normal <12 [facility] Comment on above: Order Comment: Speci men Type: BLOOD SPECIMEN Ordering Facility: [facility] Address: [address] [place] [address] Performed By: #### 2 4323-8, HSTNT, #### [facility] CLIA [id number] [address] [place] [address] [place] Magnesium SerPl-mCncon 03-28 Magnesium [Mass/Vol] 1.9 mg/dL Normal 1.7-2.3 [facility] Comment on above: Order Comment: Salasi men Type: BLOOD SPECIMEN Ordering Facility: [facility] Address: [address] [place] [address] Performed By: #### 2 4323-8, HSTNT, #### [facility] CLIA [id number] [address] [place] [address] [place] XR CHEST 2V [...] tissues: Unremarkable. IMPRESSION: No acute radiographic abnormality. Artist Manager: PINKY Transcribe Date/Time: Mar 28 2024 5:41P Dictated by : CASPER BULL MD This examination was interpreted and the report reviewed and electronically signed by: CASPER BULL MD on Mar 28 2024 5:42PM EST [id number] Normal [facility] .Auto Diffon 03-24-2024 Basophil, Absolute 0.1 10 3/mcL Normal 0.0-0.2 [facility] ([place]) Comment on above: Performed By: #### C BRANDO WALDRON ANEU, W, TROPHS, CMP, GFR, DIMER ####[place] [address] [place], [place] [address] Basophils/100 WBC (Bld) 0.7 % Normal 0.0-2.5 [facility] ([place]) Comment on above: Performed By: #### C BRANDO WALDRON ANEU, MDW, TROPHS, CMP, GFR, DIMER ####[place] [address] [place], [place] [address] Eosinophil, Absolute 0.1 10 3/mcL Normal 0.0-0.4 [facility] ([place]) Comment on above: Performed By: #### C VANITA, ANKUR MICHAELS, MDW, TROPHS, CMP, GFR, DIMER ####[place] [address] [place], [place] [address] Eosinophils/100 WBC (Bld) 1.3 % Normal 0.0-7.0 [facility] ([place]) Comment on above: Performed By: #### C VANITA, BRANDO, ANKUR, MDW, TROPHS, CMP, GFR, DIMER ####[place] [address] [place], [place] [address] Lymphocyte, Absolute 3.6 10 3/mcL Normal 0.8-3.9 [facility] ([place]) Comment on above: Performed By: #### C BRANDO WALDRON ANEU, MDW, TROPHS, CMP, GFR, DIMER ####[address] [place], [place] [address] Lymphocytes/100 WBC (Bld) 34.2 % Normal 10.0-50.0 [facility] ([place]) Comment on above: Performed By: #### C BRANDO WALDRON ANEU, MDW, TROPHS, CMP, GFR, DIMER ####[address] [place], [place] [address] Monocyte, Absolute 1.1 10 3/mcL High 0.2-1.0 [facility] ([place]) Comment on above: Performed By: #### C BRANDO WALDRON ANEU, MDW, TROPHS, CMP, GFR, DIMER ####[address] [place], [place] [address] Monocytes/100 WBC (Bld) 10.1 % Normal 1.7-13.0 [facility] ([place]) Comment on above: Performed By: #### C BRADNO WALDRON ANEU, MDW, TROPHS, CMP, GFR, DIMER ####[address] [place], [place] [address] Neutrophils/100 WBC (Bld) 53.7 % Normal 37.0-80.0 [facility] ([place]) Comment on above: Performed By: #### C BRANDO WALDRON ANEU, MDW, TROPHS, CMP, GFR, DIMER ####[address] [place], [place] [address] .GFRon 03-24-2024 GFR 117 ml/min/1.73sqm Normal [facility] ([place]) Comment on above: Result Comment: GFR [...] ANEU, W, TROPHS, CMP, GFR, DIMER ####[address] [place], [place] [address] GFR Non- 97 ml/min/1.73sqm Normal [facility] ([place]) Comment on above: Result Comment: GFR Population [...] W, TROPHS, CMP, GFR, DIMER ####[address] [place], [place] [address] .MDWon 03-24-2024 Monocyte Distribution Width 19.34 Normal 0.00-20.00 [facility] ([place]) Comment on above: Result Comment: For ED adult patients suspected of sepsis, MDW<=20.0 does not rule out sepsis or risk of sepsis Performed By: #### C BRANDO WALDRON ANEU, MDW, TROPHS, CMP, GFR, DIMER ####[address] [place], [place] [address] .NEUABSon 03-24-2024 Neutrophil, Absolute 5.7 10 3/mcL Normal 2.9-6.2 [facility] ([place]) Comment on above: Performed By: #### C VANITA, ANKUR MICHAELS, MYA, TROPHS, CMP, GFR, DIMER ####[address] [place], [place] [address] CBCon 03-24-2024 Erythrocyte distribution width (RBC) [Ratio] 12.8 % Normal 11.5-14.5 [facility] ([place]) Comment on above: Performed By: #### C VANITA, BRANDO, ANKUR, W, TROPHS, CMP, GFR, DIMER ####[address] [place], [place] [address] Hematocrit (Bld) [Volume fraction] 40.3 % Normal 37.0-47.0 [facility] ([place]) Comment on above: Performed By: #### C BRANDO WALDRON ANEU, MYA, TROPHS, CMP, GFR, DIMER ####[address] [place], [place] [address] Hgb 13.7 G/dL Normal 12.0-16.0 [facility] ([place]) Comment on above: Performed By: #### C BRANDO WALDRON ANEU, MYA, TROPHS, CMP, GFR, DIMER ####[address] [place], [place] [address] MCH (RBC) [Entitic mass] 31.6 pg High 27.0-31.2 [facility] ([place]) Comment on above: Performed By: #### C BRANDO WALDRON ANEU, MDW, TROPHS, CMP, GFR, DIMER ####[address] [place], [place] [address] MCHC 34.1 G/dL Normal 33.0-37.0 [facility] ([place]) Comment on above: Performed By: #### C BRANDO WALDRON ANEU, MDW, TROPHS, CMP, GFR, DIMER ####[address] [place], [place] [address] MCV (RBC) [Entitic vol] 92.6 fL Normal 80.0-94.0 [facility] ([place]) Comment on above: Performed By: #### C BC, ANKUR MICHAELS MDW, TROPHS, CMP, GFR, DIMER ####[address] [place], [place] [address] Platelet 320 10 3/mcL Normal 130-400 [facility] ([place]) Comment on above: Performed By: #### C BRANDO WALDRON ANEU, MYA, TROPHS, CMP, GFR, DIMER ####[address] [place], [place] [address] Platelet mean volume (Bld) [Entitic vol] 7.4 fL Normal 7.4-10.4 [facility] ([place]) Comment on above: Performed By: #### C BRANDO WALDRON ANEU, MYA, TROPHS, CMP, GFR, DIMER ####[address] [place], [place] [address] RBC 4.35 10 6/mcL Normal 4.20-5.40 [facility] ([place]) Comment on above: Performed By: #### C BRANDO WALDRON ANEU, MDW, TROPHS, CMP, GFR, DIMER ####[address] [place], [place] [address] WBC 10.7 10 3/mcL Normal 4.6-10.8 [facility] ([place]) Comment on above: Performed By: #### C BRANDO WALDRON ANEU, MDW, TROPHS, CMP, GFR, DIMER ####[address] [place], [place] [address] CMPon 03-24-2024 Albumin Level 3.9 G/dL Normal 3.5-5.0 [facility] ([place]) Comment on above: Performed By: #### C BRANDO WALDRON ANEU, MDW, TROPHS, CMP, GFR, DIMER ####[address] [place], [place] [address] Albumin/Globulin [Mass ratio] 1.1 {ratio} Normal 1.1-2.5 [facility] ([place]) Comment on above: Performed By: #### C BRANDO WALDRON ANEU, MYA, TROPHS, CMP, GFR, DIMER ####[address] [place], [place] [address] ALP [Catalytic activity/Vol] 105 U/L Normal 40-135 [facility] ([place]) Comment on above: Performed By: #### C BRANDO WALDRON ANEU, MDW, TROPHS, CMP, GFR, DIMER ####[address] [place], [place] [address] ALT [Catalytic activity/Vol] 61 U/L High 14-59 [facility] ([place]) Comment on above: Performed By: #### C BRANDO WALDRON ANEU, MDW, TROPHS, CMP, GFR, DIMER ####[address] [place], [place] [address] AST [Catalytic activity/Vol] 27 U/L Normal 10-40 [facility] ([place]) Comment on above: Performed By: #### C BRANDO WALDRON ANEU, MDW, TROPHS, CMP, GFR, DIMER ####[address] [place], [place] [address] Bili Total 1.5 mg/dL High 0.2-1.0 [facility] ([place]) Comment on above: Result Comment: Use of this assay is not recommended for patients undergoing treatment with eltrombopag due to the potential for falsely elevated results. Performed By: #### C BRANDO WALDRON ANEU, MDW, TROPHS, CMP, GFR, DIMER ####[address] [place], [place] [address] BUN/Creatinine Ratio 13 ratio Normal 7-27 [facility] ([place]) Comment on above: Performed By: #### C BRANDO WALDRON ANEU, MDW, TROPHS, CMP, GFR, DIMER ####[address] [place], [place] [address] Calcium [Mass/Vol] 9.0 mg/dL Normal 8.4-10.2 [facility] ([place]) Comment on above: Performed By: #### C BRANDO WALDRON ANEU, MDW, TROPHS, CMP, GFR, DIMER ####[address] [place], [place] [address] Chloride [Moles/Vol] 102 mmol/L Normal 98-107 [facility] ([place]) Comment on above: Performed By: #### C BC, BRANDO, ANKUR, MDW, TROPHS, CMP, GFR, DIMER ####[address] [place], [place] [address] CO2 [Moles/Vol] 28 mmol/L Normal 22-29 [facility] ([place]) Comment on above: Performed By: #### C BC, ADLAKHWINDER, ANEU, MDW, TROPHS, CMP, GFR, DIMER ####[address] [place], [place] [address] Creatinine [Mass/Vol] 0.71 mg/dL Normal 0.55-1.02 [facility] ([place]) Comment on above: Result Comment: Test ing performed on [employer] Dimension EXL analyzer using a modified kinetic Sher technique. Performed By: #### C BC, BRANDO, ANKUR, MDW, TROPHS, CMP, GFR, DIMER ####[address] [place], [place] [address] Electrolyte Balance 9.0 mEq/L Normal 4.0-15.0 [facility] ([place]) Comment on above: Performed By: #### C VANITA, BRANDO, ANKUR, MDW, TROPHS, CMP, GFR, DIMER ####[address] [place] [address] Globulin 3.6 G/dL Normal [facility] ([place]) Comment on above: Performed By: #### C VANITA, BRANDO, ANKUR, MDW, TROPHS, CMP, GFR, DIMER ####[address] [place], [place] [address] Glucose [Mass/Vol] 94 mg/dL Normal 70-105 [facility] ([place]) Comment on above: Performed By: #### C BC, BRANDO, ANKUR, MDW, TROPHS, CMP, GFR, DIMER ####[address] [place], [place] [address] Potassium [Moles/Vol] 4.2 mmol/L Normal 3.5-5.1 [facility] ([place]) Comment on above: Performed By: #### C BC, ADLAKHWINDER, ANKUR, MDW, TROPHS, CMP, GFR, DIMER ####[address] [place], [place] [address] Sodium [Moles/Vol] 139 mmol/L Normal 136-145 [facility] ([place]) Comment on above: Performed By: #### C BC, BRANDO, ANKUR, MDW, TROPHS, CMP, GFR, DIMER ####[address] [place], [place] [address] Total Protein 7.5 G/dL Normal 6.4-8.2 [facility] ([place]) Comment on above: Performed By: #### C BC, BRANDO, ANKUR, MDW, TROPHS, CMP, GFR, DIMER ####[address] [place], [place] [address] Urea nitrogen [Mass/Vol] 9 mg/dL Normal 7-18 [facility] ([place]) Comment on above: Performed By: #### C VANITA, BRANDO, ANKUR, MDW, TROPHS, CMP, GFR, DIMER ####[address] [place], [place] [address] CT ANGIOGRAPHY CHEST W/CONTR Demetra 03-24-2024 CT [...] 03/24/2024 10:20:52 PM Ordering Provider: VERO Paige [facility] ([place]) DIMERon 03-24-2024 D-Dimer 405 ng/mL D-DU High 0-230 [facility] ([place]) Comment on above: Result Comment: Resu lts [...] embolism (PE). Performed By: #### C BC, ADLAKHWINDER, ANEU, MDW, TROPHS, CMP, GFR, DIMER ####[address] [place], [place] [address] LABORATORYOrdered By: SYSTEM SYSTEM on 03-24-2024 Albumin [...] ng/L Male: 0-76 ng/L Testing performed on Dimension EXL using a homogeneous sandwich chemiluminescent immunoassay based on [employer] technology. Urea nitrogen [Mass/Vol] 9 mg/dL Normal 7 - 18 mg/dL AO ADM SS Urea nitrogen/Creatinine [Mass ratio] 13 ratio Normal 7 - 27 ratio AO ADM SS WBC (Bld) [#/Vol] 10.7 103/mcL Normal 4.6 - 10.8 10^3/mcL AO Workflow SS TROPHSon 03-24-2024 High Sensitivity Troponin I 4 ng/L Normal 0-51 [facility] ([place]) Comment on above: Result Comment: High Sensitive Troponin I Reference Ranges: Female: 0-51 ng/L Male: 0-76 ng/L Testing performed on Dimension EXL using a homogeneous sandwich chemiluminescent immunoassay based on [employer] technology. Performed By: #### C BC, ADIFF, ANEU, MDW, TROPHS, CMP, GFR, DIMER ####[address] [address] [place], [place] [address] XR CHEST 1 VIEWon 03-24-2024 XR CHEST [...] 03/24/2024 10:13:46 PM Ordering Provider: VERO HEATH Normal [facility] ([place]) Final Surgical Pathology Rep orlando 03-18-2024 Final Surgical Pathology Report . Pathology Reports Accession: Collected Date/Time: Received Date/Time: Pathologist: [id number] 03/15/2024 11:01 EDT 03/17/2024 08:50 EDT MD THANH FLOR Final Surgical Pathology Report DIAGNOSIS: APPENDIX, APPENDECTOMY: - ACUTE APPENDICITIS CLINICAL INFORMATION: Procedure: LAPAROSCOPIC APPENDECTOMY Preoperative diagnosis: APPENDICITIS Postoperative diagnosis: APPENDICITIS SPECIMEN: A APPENDIX GROSS DESCRIPTION: All parts labelled with patient name and [id number] Received in formalin labelled "appendix" Dimensions- 5.9 x 2.6 x 1.4 cm Serosal surface- is falk-pink with vascular congestion, waters-white exudate and attached yellow mesoappendix. Lumen- contains hemorrhagic material, fecaliths also identified. Section closest to margin inked black. Wall thickness- 0.1 cm. RS-1 Amanda Rosa, Grossing Manager Treasury/ Dr. Amaya Mark, Pathologist Performed by Amanda Rosa MICROSCOPIC DESCRIPTION: The microscopic examination is performed, except in the case of Gross Only. Electronically Signed by Pathology Report verified by [facility] THANH FLOR MD Sign out Date: 03/18/2024 10:22 Performing Lab: [facility], [address] [place] [address] Pathology Dept Disclaimer If ancillary studies were utilized, the following Laboratory Developed Test (LDT) disclaimer will apply: Under CLIA requirements, [facility] Pathology Laboratory is qualified to perform high complexity testing. For all ancillary stains, positive and negative controls stain appropriately. Performance characteristics of immunohistochemical and chromogenic in-situ hybridization tests have been determined by [facility] Pathology Laboratory. These tests are used for clinical purposes, They should not be regarded as investigational or for research. Normal [facility] ([place]) CRPon 03-15-2024 C-Reactive Protein 6.5 mg/dL High 0.0-1.0 [facility] ([place]) Comment on above: Result Comment: No te - New Reference Range in effect 20 Performed By: #### C RP, ESR #### [address] [address] ESRon 03-15-2024 Erythrocyte Sed Rate 16 mm/hr Normal 0-20 [facility] ([place]) Comment on above: Performed By: #### C RP, ESR #### [address] [address] LABORATORYOrdered By: SYSTEM SYSTEM on 03-15-2024 CRP [...] ng/L Male: 0-54 ng/L Testing performed on [employer] IM analyzer using direct chemiluminescent technology. LABORATORYOrdered By: Arturo Melendez on 03-15-2024 ESR 15 minute reading (Bld) [Velocity] 16 mm/hr Normal 0 - 20 mm/hr Auto Heme SS LABORATORYOrdered By: Vivienne Jimenez on 03-15-2024 Glucose [Mass/Vol] 110 mg/dL Normal 70 - 110 mg/dL [facility] Work Phone: [phone] [place] [address] 03-15-2024 High Sensitivity Troponin I <3 Normal 0-34 [facility] ([place]) Comment on above: Result Comment: High Sensitive Troponin I Reference Ranges: Female: 0-34 ng/L Male: 0-54 ng/L Testing performed on [employer] IM analyzer using direct chemiluminescent technology. Performed By: #### T ROPHS #### [address] [address] XR CHEST 1 VIEWon 03-15-2024 XR CHEST [...] 03/15/2024 12:09:01 PM Ordering Provider: MICHELE Paige [facility] ([place]) .Auto Diffon 03-14-2024 Basophil, Absolute 0.0 10 3/mcL Normal 0.0-0.2 [facility] ([place]) Comment on above: Performed By: #### A MYA SANTANA, CBC, ADIFF #### [address] [address] Basophils/100 WBC (Bld) 0.2 % Normal 0.0-2.5 [facility] ([place]) Comment on above: Performed By: #### A MYA SANTANA, CBC, ADIFF #### [address] [address] Eosinophil, Absolute 0.0 10 3/mcL Normal 0.0-0.4 [facility] ([place]) Comment on above: Performed By: #### A MYA SANTANA, CBC, ADIFF #### [address] [address] Eosinophils/100 WBC (Bld) 0.3 % Normal 0.0-7.0 [facility] ([place]) Comment on above: Performed By: #### A MYA SANTANA, CBC, ADIFF #### [address] [address] Lymphocyte, Absolute 2.5 10 3/mcL Normal 0.8-3.9 [facility] ([place]) Comment on above: Performed By: #### A MYA SANTANA, CBC, ADIFF #### [address] [address] Lymphocytes/100 WBC (Bld) 16.1 % Normal 10.0-50.0 [facility] ([place]) Comment on above: Performed By: #### A MYA SANTANA, CBC, ADIFF #### [address] [address] Monocyte, Absolute 0.6 10 3/mcL Normal 0.2-1.0 [facility] ([place]) Comment on above: Performed By: #### A MYA SANTANA, CBC, ADIFF #### [address] [address] Monocytes/100 WBC (Bld) 4.1 % Normal 1.7-13.0 [facility] ([place]) Comment on above: Performed By: #### A MYA SANTANA, CBC, ADIFF #### [address] [address] Neutrophils/100 WBC (Bld) 79.3 % Normal 37.0-80.0 [facility] ([place]) Comment on above: Performed By: #### A MYA SANTANA, CBC, ADIFF #### [address] [address] .GFRon 03-14-2024 GFR 99 ml/min/1.73sqm Normal [facility] ([place]) Comment on above: Result Comment: GFR Population [...] #### H H, BMP, GFR ####[address] [place], [place] [address] GFR Non- 82 ml/min/1.73sqm Normal [facility] ([place]) Comment on above: Result Comment: GFR Population [...] #### H H, BMP, GFR ####[address] [place], [place] [address] .MDWon 03-14-2024 Monocyte Distribution Width 22.01 High 0.00-20.00 [facility] ([place]) Comment on above: Result Comment: For adults in ED, MDW>20.0 may be associated with a higher risk of sepsis during the first 12hrs of hospital admission Performed By: #### A MYA SANTANA, CBC, ADIFF #### [address] [address] [place], [place] [address] .NEUABSon 03-14-2024 Neutrophil, Absolute 12.2 10 3/mcL High 2.9-6.2 [facility] ([place]) Comment on above: Performed By: #### A MYA SANTANA, CBC, ADIFF #### [address] [place], [place] [address] BMPon 03-14-2024 BUN/Creatinine Ratio 13 ratio Normal 7-27 [facility] ([place]) Comment on above: Performed By: #### H H, BMP, GFR ####[address] [place], [place] [address] Calcium [Mass/Vol] 9.4 mg/dL Normal 8.4-10.2 [facility] ([place]) Comment on above: Performed By: #### Harvinder Blanton BMP, GFR ####[address] [place], [place] [address] Chloride [Moles/Vol] 102 mmol/L Normal 98-107 [facility] ([place]) Comment on above: Performed By: #### Harvinder Blanton, BMP, GFR ####[address] [place], [place] [address] CO2 [Moles/Vol] 26 mmol/L Normal 22-29 [facility] ([place]) Comment on above: Performed By: #### Harvinder Blanton BMP, GFR ####[address] [place], [place] [address] Creatinine [Mass/Vol] 0.82 mg/dL Normal 0.55-1.02 [facility] ([place]) Comment on above: Performed By: #### Harvinder Blanton BMP, GFR ####[address] [place], [place] [address] Electrolyte Balance 11.0 mEq/L Normal 4.0-15.0 [facility] ([place]) Comment on above: Performed By: #### Harvinder Blanton BMP, GFR ####[address] [place], [place] [address] Glucose [Mass/Vol] 107 mg/dL High 70-105 [facility] ([place]) Comment on above: Performed By: #### Harvinder Blanton BMP, GFR ####[address] [place], [place] [address] Potassium [Moles/Vol] 4.4 mmol/L Normal 3.5-5.1 [facility] ([place]) Comment on above: Performed By: #### Harvinder Blanton, BMP, GFR ####[address] [place], [place] [address] Sodium [Moles/Vol] 139 mmol/L Normal 136-145 [facility] ([place]) Comment on above: Performed By: #### H Harvinder, BMP, GFR ####[address] [address] Urea nitrogen [Mass/Vol] 11 mg/dL Normal 7-18 [facility] ([place]) Comment on above: Performed By: #### H H, BMP, GFR ####[address] [place], [place] [address] CBCon 03-14-2024 Erythrocyte distribution width (RBC) [Ratio] 12.9 % Normal 11.5-14.5 [facility] ([place]) Comment on above: Performed By: #### A MYA SANTANA, CBC, ADIFF #### [address] [address] Hematocrit (Bld) [Volume fraction] 40.3 % Normal 37.0-47.0 [facility] ([place]) Comment on above: Performed By: #### A MYA SANTANA, CBC, ADIFF #### [place] [address] Hgb 13.9 G/dL Normal 12.0-16.0 [facility] ([place]) Comment on above: Performed By: #### A MYA SANTANA, CBC, ADIFF #### [address] [address] MCH (RBC) [Entitic mass] 31.6 pg High 27.0-31.2 [facility] ([place]) Comment on above: Performed By: #### A MYA SANTANA, CBC, ADIFF #### [address] [address] MCHC 34.3 G/dL Normal 33.0-37.0 [facility] ([place]) Comment on above: Performed By: #### A MYA SANTANA, CBC, ADIFF #### [address] [address] MCV (RBC) [Entitic vol] 91.9 fL Normal 80.0-94.0 [facility] ([place]) Comment on above: Performed By: #### A MYA SANTANA, CBC, ADIFF #### [address] [address] Platelet 278 10 3/mcL Normal 130-400 [facility] ([place]) Comment on above: Performed By: #### A MYA SANTANA, CBC, ADIFF #### [address] [address] Platelet mean volume (Bld) [Entitic vol] 8.4 fL Normal 7.4-10.4 [facility] ([place]) Comment on above: Performed By: #### A MYA SANTANA, CBC, ADIFF #### [address] [address] RBC 4.39 10 6/mcL Normal 4.20-5.40 [facility] ([place]) Comment on above: Performed By: #### A MYA SANTANA, JOSE CARLOS, ADIFF #### [address] [address] WBC 15.4 10 3/mcL High 4.6-10.8 [facility] ([place]) Comment on above: Performed By: #### A MYA SANTANA, CBC, ADIFF #### [address] [address] [address] ABDOMEN/PELVIS W/O CONTRA STon 03-14-2024 CT [...] 03/14/2024 6:47:11 PM Ordering Provider: TORI Paige [facility]) on 03-14-2024 Hematocrit (Bld) [Volume fraction] 39.7 % Normal 37.0-47.0 [facility]) Comment on above: Performed By: #### H H, BMP, GFR ####[address] [place], [place] [address] Hgb 13.7 G/dL Normal 12.0-16.0 [facility]) Comment on above: Performed By: #### H H, BMP, GFR ####[address] [place], [place] [address] LABORATORYOrdered By: SYSTEM SYSTEM on 03-14-2024 Basophil, [...] Ql (U) Negative Normal Negative AO Auto Urine SS test (u) int Not detected Invalid [...] HCG ( test) Ql (U) Negative Normal [facility] ([place]) Comment on above: Performed By: #### U A, PREGU ####[address] [place], [place] [address] test (u) int Not detected Invalid Interpretation Code [facility] ([place]) Comment on above: Performed By: #### U A, PREGU ####[address] [place], [place] [address] UAon 03-14-2024 Color (U) Yellow Normal [facility] ([place]) Comment on above: Performed By: #### U A, PREGU ####[address] [place], [place] [address] Glucose (U) [Mass/Vol] Negative Normal Negative [facility] ([place]) Comment on above: Performed By: #### U A, PREGU ####[address] [place], [place] [address] Ketones Ql (U) Negative Normal Negative [facility] ([place]) Comment on above: Performed By: #### U A, PREGU ####[address] [place], [place] [address] UA Appear Clear Normal Clear [facility] ([place]) Comment on above: Performed By: #### U A, PREGU ####[address] [place], [place] [address] UA Blood Negative Normal Negative [facility] ([place]) Comment on above: Performed By: #### U A, PREGU ####[address] [place], [place] [address] UA Leuk Est Negative Normal Negative [facility] ([place]) Comment on above: Performed By: #### U A, PREGU ####[address] [place], [place] [address] UA Nitrite Negative Normal Negative [facility] ([place]) Comment on above: Performed By: #### U A, PREGU ####[address] [place], [place] [address] UA pH 7.0 Normal 5.0 - 8.0 [facility] ([place]) Comment on above: Performed By: #### U A, PREGU ####[address] [place] [address] UA Protein Negative Normal Negative [facility] ([place]) Comment on above: Performed By: #### U A, PREGU ####[address] [place] [address] UA Spec Grav 1.025 Normal 1.015-1.025 [facility] ([place]) Comment on above: Performed By: #### U A, PREGU ####[address] [place] [address] UA Specimen Type Clean Catch Normal [facility] ([place]) Comment on above: Performed By: #### U A, PREGU ####[address] [place] [address] UA Urobilinogen 0.2 E.U./dL Normal 0.2-1.0 [facility] ([place]) Comment on above: Performed By: #### U A, PREGU ####[address] [place] [address] Urobilinogen (U) [Mass/Vol] Negative Normal Negative [facility] ([place]) Comment on above: Performed By: #### U A, PREGU ####[place] [address] [place] [address] ED NOTEon 02-09-2024 ED NOTE HNO ID: [id number] Author: KENYA JARAMILLO RN Service: ? Author [...] anything else to help you? No Normal [facility] ED NOTE HNO ID: [id number] Author: CRISTINO TRAYLOR RN Service: Emergency Medicine Author Type: Registered Nurse Type: ED Notes Filed: 02/09/2024 19:42 Note Text: H/o back problems, sees pain management (Bissoli?) in [place]. Today "threw my back out at a festival." C/o low back pain radiating down left leg Normal [facility] ED PROV NOTEon 02-09-2024 ED PROV NOTE HNO ID: [id number] Author: DEBBY HALE MD Service: Emergency Medicine Author Type: Physician Type: ED Provider Notes Filed: 03/10/2024 01:07 Note Text: ED Provider Note Patient Name: Fadumo Hensley : 1995 SERVICE DATE: 02/09/24 History Patient presents with: Back Pain Patient with a history of chronic bilateral low back pain, that follows up at [place], pain management, presents to the emergency department [...] is taking previous back pain medication, and [id number] medications without improvement in his symptoms. Back [...] UTERI CONIZA LP ELCTRO EXCI Comment: at [facility]-Dr. Millan 01/01/2010: PAST SURGICAL HISTORY OF Comment: Removal of 4 [place] Teeth No date: PAST SURGICAL HISTORY OF [...] I have used multiple drugs in the past" Sex (more content not included)... Normal [facility] No Panel Informationon 10-03 [facility] Basic metabolic 2000 panelon 08-26-2023 Anion gap [Moles/Vol] 9 mmol/L Low 10 - 2 0 mmol/L [facility] Calcium [Mass/Vol] 9.4 mg/dL 8.6 - 10. 3 mg/dL [facility] Chloride [Moles/Vol] 106 mmol/L 98 - 10 7 mmol/L [facility] CO2 [Moles/Vol] 25 mmol/L 21 - 32 mmol/L [facility] Creatinine [Mass/Vol] 0.66 mg/dL 0.50 - 1.05 mg/dL [facility] eGFR - PINF [facility] Comment on above: Calculations of jamila mated GFR are performed using the 2020 CKD-EPI Study Refit equation without the race variable for the IDMS-Traceable creatinine methods. https://jasn.asnjournals.org/content//ASN.58999 [address] Glucose [Mass/Vol] 99 mg/dL 74 - 99 mg/dL [facility] Interpretation and review of laboratory results Abnormal [facility] Potassium [Moles/Vol] 3.3 mmol/L Low 3.5 - 5.3 mmol/L [facility] Sodium [Moles/Vol] 137 mmol/L 136 - 145 mmol/L [facility] Urea nitrogen [Mass/Vol] 12 mg/dL 6 - 23 mg/dL [facility] CBC W Auto Differential pane l (Bld)on 08-26-2023 Basophils (Bld) [#/Vol] 0.03 10*3/uL [facility] Basophils/100 WBC (Bld) 0.2 % 0.0 - 2.0 % [facility] Eosinophils (Bld) [#/Vol] 0.07 10*3/uL [facility] Eosinophils/100 WBC (Bld) 0.5 % 0.0 - 6.0 % [facility] Erythrocyte distribution width (RBC) [Ratio] 11.7 % 11.5 - 14.5 % [facility] Hematocrit (Bld) [Volume fraction] 36.8 % 36.0 - 46.0 % [facility] Hemoglobin (Bld) [Mass/Vol] 12.6 g/dL 12.0 - 16.0 g/dL [facility] Immature granulocytes (Bld) [#/Vol] 0.02 10*3/uL [facility] Immature granulocytes/100 WBC (Bld) 0.2 % 0.0 - 0.9 % [facility] Comment on above: Immature Granulocyte Count (IG) includes promyelocytes, myelocytes and metamyelocytes but does not include bands. Percent differential counts (%) should be interpreted in the context of the absolute cell counts (cells/UL). Interpretation and review of laboratory results Abnormal [facility] Lymphocytes (Bld) [#/Vol] 3.12 10*3/uL [facility] Lymphocytes/100 WBC (Bld) 24.2 % 13.0 - 44.0 % [facility] MCH (RBC) [Entitic mass] 30.1 pg 26.0 - 34.0 pg [facility] MCHC (RBC) [Mass/Vol] 34.2 g/dL 32.0 - 36.0 g/dL [facility] MCV (RBC) [Entitic vol] 88 fL 80 - 100 fL [facility] Monocytes (Bld) [#/Vol] 0.68 10*3/uL [facility] Monocytes/100 WBC (Bld) 5.3 % 2.0 - 10.0 % [facility] Neutrophils (Bld) [#/Vol] 8.95 10*3/uL High [facility] Comment on above: Percent differential counts (%) should be interpreted in the context of the absolute cell counts (cells/uL). Neutrophils/100 WBC (Bld) 69.6 % 40.0 - 80.0 % [facility] Nucleated RBC/100 WBC (Bld) [Ratio] 0.0 % [facility] Platelets (Bld) [#/Vol] 250 10*3/uL [facility] RBC (Bld) [#/Vol] 4.19 10*6/uL [facility] WBC (Bld) [#/Vol] 12.9 10*3/uL [facility] CT Abdomen WO contraston Bilateral nonobstructing renal calculi, greater on the right. No obstructive uropathy identified. Possible right adrenal adenoma. MACRO: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 plasma creatinine m easurement (mass/volume)on 05-02-2022 Creatinine [Mass/Vol] 0.47 mg/dL 0.55-1.02 [facility] Work Phone: Comment on above: The validity of the calculated GFR & GFRAA in patients over 70 years has not been determined. Clinical correlation is essential. Serum or plasma urea nitroge n measurement (mass/volume)on 05-02-2022 Urea nitrogen [Mass/Vol] 7 mg/dL 7-18 [facility] Work Phone: Squamous epithelial cells de tection in urine sediment by light microscopyon 05-02-2022 Epithelial cells.squamous LM Ql (Urine sed) 0 SEEN /hpf 5-10 [facility] Work Phone: Thin prep Papanicolaou smear with manual screeningon 05-02-2022 Thin prep Papanicolaou smear with manual screening 6 5-15 [facility] Work Phone: Urine blood detectionon 04-22 RBC Ql (U) Negative Negative [facility] Work Phone: RBC Ql (U) 0 SEEN /hpf 0-5 [facility] Work Phone: Urine clarityon 05-02-2022 Clarity (U) Clear Clear [facility] Work Phone: Urine color determinationon 05-02-2022 Color (U) Yellow Yellow [facility] Work Phone: Urine glucose detectionon Glucose Ql (U) Normal mg/dl Normal [facility] Work Phone: Urine leukocyte esterase det ection by dipstickon 05-02-2022 Leukocyte esterase Test strip Ql (U) 25 /ul Negative [facility] Work Phone: Urine pHon 05-02-2022 pH (U) 7.0 [pH] 5.0 - 8.0 [facility] Work Phone: Urine sediment bacteria coun t by microscopy (number/high power field)on 05-02-2022 Bacteria LM.HPF (Urine sed) [#/Area] 0 /[HPF] None Seen [facility] Work Phone: Urine specific gravity measu rementon 05-02-2022 Specific gravity (U) [Rel density] 1.010 1.002-1.030 [facility] Work Phone: Urobilinogen Auto test strip Ql (U)on 05-02-2022 Urobilinogen Ql (U) Normal mg/dl Normal [facility] Work Phone: LABORATORYOrdered By: Kenyatta Mitchell [...] strip (U) [Mass/Vol] Negative Invalid Interpretation Code Negativemg/d L AO Auto Urine SS Hemoglobin Auto test strip (U) [Mass/Vol] Large *ABN* (04/03/22 3:49 PM) Invalid Interpretation Code Negative AO Auto Urine SS Ketones Ql (U) 40 mg/dL Invalid Interpretation Code Negativemg/d L AO Auto Urine SS UA Leuk Est Negative (04/03/22 3:49 PM) Invalid Interpretation Code Negative AO Auto Urine SS UA Nitrite Negative (04/03/22 3:49 PM) Invalid Interpretation Code Negative AO Auto Urine SS UA pH 6.0 (04/03/22 3:49 PM) Invalid Interpretation Code 5.0 - 8.0 AO Auto Urine SS UA Protein 30 mg/dL Invalid Interpretation Code Negativemg/d L AO Auto Urine SS UA RBC LOADED [...] UA Urobilinogen 0.2 E.U./dL Invalid Interpretation Code 0.2-1.0E.U./ dL AO Auto Urine SS WBC LM.HPF (Urine sed) [#/Area] 5-10 /HPF Invalid Interpretation Code None Seen/HPF AO Auto Urine SS LABORATORYOrdered By: Aishwarya Izaguirre on 04-03-2022 [place] [address].1 m[IU]/mL Invalid Interpretation Code AO ADM SS CBC AND DIFFERENTIALon 12-17 % AUTOMATED IMMATURE GRAN 0.3 % Normal 0.0 - 0.9 [facility] Comment on above: Result Comment: Grace ture Granulocyte Count (IG) includes promyelocytes, myelocytes and metamyelocytes but does not include bands. Percent differential counts (%) should be interpreted in the context of the absolute cell counts (cells/L). Performed By: #### C BCDF #### [address] [address] Basophils (Bld) [#/Vol] 0.03 10*3/uL Normal 0.00 - 0.10 [facility] Comment on above: Performed By: #### C BCDF #### [address] [address] Basophils/100 WBC (Bld) 0.4 % Normal 0.0 - 2.0 [facility] Comment on above: Performed By: #### C BCDF #### [address] [address] Eosinophils (Bld) [#/Vol] 0.19 10*3/uL Normal 0.00 - 0.70 [facility] Comment on above: Performed By: #### C BCDF #### [address] [address] Eosinophils/100 WBC (Bld) 2.7 % Normal 0.0 - 6.0 [facility] Comment on above: Performed By: #### C BCDF #### [address] [address] Erythrocyte distribution width (RBC) [Ratio] 11.9 % Normal 11.5 - 14.5 [facility] Comment on above: Performed By: #### C BCDF #### [address] [address] Hematocrit (Bld) [Volume fraction] 36.2 % Normal 36.0 - 46.0 [facility] Comment on above: Performed By: #### C BCDF #### [address] [address] Hemoglobin (Bld) [Mass/Vol] 13.5 g/dL Normal 12.0 - 16.0 [facility] Comment on above: Performed By: #### C BCDF #### [address] [address] Lymphocytes (Bld) [#/Vol] 2.15 10*3/uL Normal 1.20 - 4.80 [facility] Comment on above: Performed By: #### C BCDF #### [facility] [address] [place] [address] Lymphocytes/100 WBC (Bld) 30.8 % Normal 13.0 - 44.0 [facility] Comment on above: Performed By: #### C BCDF #### [facility] [address] [place] [address] MCHC (RBC) [Mass/Vol] 37.3 g/dL High 32.0 - 36.0 [facility] Comment on above: Performed By: #### C BCDF #### [facility] [address] [place] [address] MCV (RBC) [Entitic vol] 87 fL Normal 80 - 100 [facility] Comment on above: Performed By: #### C BCDF #### [facility] [address] [place] [address] Monocytes (Bld) [#/Vol] 0.40 10*3/uL Normal 0.10 - 1.00 [facility] Comment on above: Performed By: #### C BCDF #### [facility] [address] [place] [address] Monocytes/100 WBC (Bld) 5.7 % Normal 2.0 - 10.0 [facility] Comment on above: Performed By: #### C BCDF #### [facility] [address] [place] [address] Neutrophils (Bld) [#/Vol] 4.18 10*3/uL Normal 1.20 - 7.70 [facility] Comment on above: Performed By: #### C BCDF #### [facility] [address] [place] [address] Neutrophils/100 WBC (Bld) 60.1 % Normal 40.0 - 80.0 [facility] Comment on above: Performed By: #### C BCDF #### [facility] [address] [place] [address] Platelets (Bld) [#/Vol] 273 10*3/uL Normal 150 - 450 [facility] Comment on above: Performed By: #### C BCDF #### [facility] [address] [place] [address] RBC 4.18 x10E12/L Normal 4.00 - 5.20 [facility] Comment on above: Performed By: #### C BCDF #### [facility] [address] [place] [address] WBC (Bld) [#/Vol] 7.0 10*3/uL Normal 4.4 - 11.3 [facility] Comment on above: Performed By: #### C BCDF #### [facility] [address] [place] [address] COMPREHENSIVE PANELon 2020 Albumin [Mass/Vol] 4.6 g/dL Normal 3.4 - 5.0 [facility] Comment on above: Performed By: #### C MP #### [facility] [address] [place] [address] ALP [Catalytic activity/Vol] 64 U/L Normal 33 - 110 [facility] Comment on above: Performed By: #### C MP #### [facility] [address] [place] [address] ALT [Catalytic activity/Vol] 17 U/L Normal 7 - 45 [facility] Comment on above: Result Comment: Mirta ents treated with Sulfasalazine may generate falsely decreased results for ALT. Performed By: #### C MP #### [facility] [address] [place] [address] Anion gap [Moles/Vol] 18 mmol/L Normal 10 - 20 [facility] Comment on above: Performed By: #### C MP #### [facility] [address] [place] [address] AST [Catalytic activity/Vol] 17 U/L Normal 9 - 39 [facility] Comment on above: Performed By: #### C MP #### [facility] [address] [place] [address] Bilirubin [Mass/Vol] 1.9 mg/dL High 0.0 - 1.2 [facility] Comment on above: Performed By: #### C MP #### [facility] [address] [place] [address] Calcium [Mass/Vol] 9.5 mg/dL Normal 8.6 - 10.3 [facility] Comment on above: Performed By: #### C MP #### [address] [address] Chloride [Moles/Vol] 104 mmol/L Normal 98 - 107 [facility] Comment on above: Performed By: #### C MP #### [address] [address] Creatinine [Mass/Vol] 0.69 mg/dL Normal 0.50 - 1.05 [facility] Comment on above: Performed By: #### C MP #### [address] [address] GFR- AM. >60 Normal >60 [facility] Comment on above: Result Comment: CALC ULATIONS OF ESTIMATED GFR ARE PERFORMED USING THE MDRD STUDY EQUATION FOR THE IDMS-TRACEABLE CREATININE METHODS. CLIN CHEM 2007;53:766-72 Performed By: #### C MP #### [address] [address] GFR-NON AM. >60 Normal >60 [facility] Comment on above: Performed By: #### C MP #### [address] [address] Glucose [Mass/Vol] 87 mg/dL Normal 74 - 99 [facility] Comment on above: Performed By: #### C MP #### [address] [address] HCO3 (Bld) [Moles/Vol] 22 mmol/L Normal 21 - 32 [facility] Comment on above: Performed By: #### C MP #### [address] [address] Potassium [Moles/Vol] 3.5 mmol/L Normal 3.5 - 5.3 [facility] Comment on above: Performed By: #### C MP #### [address] [address] Protein [Mass/Vol] 7.0 g/dL Normal 6.4 - 8.2 [facility] Comment on above: Performed By: #### C MP #### [address] [address] Sodium [Moles/Vol] 140 mmol/L Normal 136 - 145 [facility] Comment on above: Performed By: #### C MP #### [facility] [address] [place] [address] Urea nitrogen [Mass/Vol] 13 mg/dL Normal 6 - 23 [facility] Comment on above: Performed By: #### C MP #### [address] [address] HCG,URINEon 12-17-2020 Beta HCG ( test) Ql (U) Negative Normal Negative [facility] Comment on above: Performed By: #### H CGU #### [address] [address] MAGNESIUMon 12-17-2020 Magnesium [Mass/Vol] 2.28 mg/dL Normal 1.60 - 2.40 [facility] Comment on above: Performed By: #### M G #### [address] [address] TROPONIN Ion 12-17-2020 Troponin I.cardiac [Mass/Vol] ng/mL Normal 0.00 - 0.03 [facility] Comment on above: Result Comment: LESS THAN [...] is performed using different testing methodology at [facility] than at other [facility]. Direct result comparisons should only be made within the same method. Performed By: #### T ROP2 #### [address] [address] WRIST COMPLT; MIN 3 VIEWSon 12-17-2020 WRIST COMPLT; MIN 3 VIEWS STUDY: Wrist Radiographs; 12/17/2020 2:16 PM INDICATION: Chronic left wrist pain. COMPARISON: None Available. ACCESSION NUMBER(S): [id number] ORDERING CLINICIAN: DEV FLANNERY MD TECHNIQUE: Four views (five images) of the left wrist. FINDINGS: There is no displaced fracture. The alignment is anatomic. No soft tissue abnormality is seen. Mild radiocarpal degenerative changes. IMPRESSION: No acute fracture or malalignment. Mild degenerative changes. Signed by Iesha Clayton Electronically signed by: IESHA CLAYTON MD [facility] Jessica 06-01-2020 CNPN Telephone (NEADFV) FADUMO HENSLEY ([id number]) 1995 F Date Time Provider Department 06/01/20 CURTIS TORO During your visit today, we recorded the following information about you: Yvette Coleman Jg 06/01/2020 11:29 AM Signed Patient calling today. She was under the impression that she was going to have an injection today. There is an order in [employer]. The patient was not contacted to schedule it. She is very tearful currently. Patient lives in [place]. Per patient her insurance is not accepted at [facility], and was going to have all her care at the clinic. I changed her appointment today to a zoom visit and will give her the phone number listed in the order for the [facility] procedural pool. Yvette Rodriguez, RN, RN 06/01/2020 12:41 PM Signed Will forward information Yvette Rodriguez RN, RN 06/01/2020 1:[address] Toro pt needs to schedule injection we will see her after injection Allergies As of Date: 06/01/2020 Noted Allergy Reaction ZYRTEC (CETIRIZINE HCL) 05/08/2006 5 - Intolerance Comments: tremors Date Reviewed: 05/21/2020 Reviewed by: Amaya (Deo.Lamination Spinner) OCTAVIO Rasmussen.JAMES - Fully Assessed Reason for Visit: Patient [...] abuse [F19.10] 09/10/2015 More... Hepatitis C [B19.20] 2018 More... ASCUS with positive high risk HPV cervical [R87*09/26/2019 More... Intractable low back pain [M54.5] 04/27/2020 Urinary incontinence [R32] 04/27/2020 04/28/2020 Nicotine use disorder, F17.2 [F17.200] 04/27/2020 Encounter Status:Closed by YVETTE RODRIGUEZ on 06/01/20 [facility] Jessica 05-10-2020 CNPN Telephone (NEADFV) FADUMO HENSLEY ([id number]) 1995 F Date Time Provider Department 05/10/20 CURTIS TORO During your visit today, we recorded the following information about you: Michelle Leyla Pss 05/10/2020 4:36 PM Signed Patient called stating she saw Dr. Toro in the hospital recently and has an upcoming appointment with him. While in the hospital she was prescribed, Nabumetone, Tizanidine, Gabapentin, Amitriptyline and Acetaminophen 1000 mg. She says she needs refills on all five medications, and would like them sent to [facility] in [place]. For questions, call patient at [phone] Yvette Rodriguez, RN, RN 05/11/2020 8:55 AM Signed Message will be forwarded for review Yvette Rodriguez, RN, RN 05/11/2020 10:10 AM Signed reply from Physician surgery assistant She will need to contact her PCP for refills Call to Juan Daniel with this message Yvette Gregorio 05/11/2020 1:03 PM Signed Patient called today. Relayed information below. Per patient, PCP would not refill the medications and that they should be refilled by spine provider. She can be reached at [phone]. ROSETTE Singh 05/11/2020 1:23 PM Signed Addended [...] her PCP. Patient can be reached at [phone] Yvette Cunningham RN 05/13/2020 5:11 PM Signed [...] Fully Assessed Reason for Visit: Medication Question [7578] Order(s):gabapentin (NEURONTIN) 300 mg capsuleTake 1 capsule [...] Encounter Status:Closed by YVETTE RODRIGUEZ on 05/11/20 [facility] ALLIED HEALTHon 04-28-2020 ALLIED HEALTH HNO ID: [id number] Author: Laura Xavier (Rt) Service: Radiology Author Type: Manager Treasury Type: Allied Health Filed: 04/28/2020 10:28 AM [...] RT Morenita April 28, 2020 10:27 AM [facility] CONSULT PROGon 04-28-2020 CONSULT PROG HNO ID: [id number] Author: Arcelia Stevens (Pa) Service: Neurosurgery Author Type: Physician Child Day Care Provider Type: Consult Progress Note Filed: 04/28/2020 2:42 [...] (97.7 ?F) Oral 88 18 98 % 04/27/202002 119/61 37.1 ?C (98.8 ?F) Oral 94 [...] 04/27/20644 vte non-pharmacologic prophylaxis - none indicated (id,oh) 04/27/20644 activity - mobilize patient (id,vt) VTE Prophylaxis: VTE prophylaxis appropriate SIGNATURE: Arcelia Stevens PA-C PATIENT NAME: Fadumo Hensley DATE: April 28, 2020 TIME: 2:35 PM PAGER/CONTACT #: [phone] [facility] MRI LUMBAR SPINE WO IVCONon 04-28-2020 MRI LUMBAR SPINE WO IVCON * * *Final Report* * * DATE OF EXAM: Apr 28 2020 10:44AM [facility]VM 0303 - MRI LUMBAR SPINE WO IVCON / PROCEDURE REASON: L/S-spine stenosis * * * * Physician Interpretation * * * * MRI LUMBAR SPINE WO IVCON, MRI THORACIC SPINE WO IVCON HISTORY: Spinal stenosis, spondylolisthesis, radiculopathy, trauma (accession [id number]), Spinal stenosis, spondylolisthesis, radiculopathy, trauma (accession [id number]) - L/S-spine stenosis (accession [id number]), Back pain, prior surgery, new or progressive sx (accession [id number]) TECHNIQUE: MRI thoracolumbar spine routine protocols without [...] and assume there are 5 lumbar-type vertebrae. Artist Manager: PINKY Transcribe Date/Time: Apr 28 2020 10:48A Dictated by : BAUDILIO BOWERS MD This examination was interpreted and the report reviewed and electronically signed by: BAUDILIO BOWERS MD on Apr 28 2020 10:59AM EST [id number] [facility] MRI THORACIC SPINE WO IVCONo n 04-28-2020 [...] HISTORY: Spinal stenosis, spondylolisthesis, radiculopathy, trauma (accession [id number]), Spinal stenosis, spondylolisthesis, radiculopathy, trauma (accession [id number]) - L/S-spine stenosis (accession [id number]), Back pain, prior surgery, new or progressive sx (accession [id number]) TECHNIQUE: MRI thoracolumbar spine routine protocols without [...] and assume there are 5 lumbar-type vertebrae. Artist Manager: PINKY Transcribe Date/Time: Apr 28 2020 10:48A Dictated by : BAUDILIO BOWERS MD This examination was interpreted and the report reviewed and electronically signed by: BAUDILIO BOWERS MD on Apr 28 2020 10:59AM EST [id number] [facility] NURSING PROGon 04-28-2020 NURSING PROG HNO ID: [id number] Author: Matt (Rn) BRIT Stark Service: ? Author Type: Registered Nurse Type: Nursing Progress Note Filed: 04/28/2020 4:58 PM Note Text: Nursing Progress Note Patient Name: Fadumo Hensley Patient Location: [place] [address] Daily Note:pt provided with E-script for oxycodone x 15 tablets. Pt instructed to follow-up with pain management for blocks and Dr. Toro. Pt verbalized understanding. Pt denies any questions at this time. Pt provided with a wheelchair to DC area. This note was completed by: Matt Stark RN [facility] NURSING PROG HNO ID: [id number] Author: Matt Castellanos) BRTI Strak Service: ? Author Type: Registered Nurse Type: Nursing Progress Note Filed: 04/28/2020 9:58 AM Note Text: Nursing Progress Note Patient Name: Fadumo Hensley Patient Location: [place] [address] [address] Daily Note:Pt sitting up in bed watching [...] any pain medication at this time. 0955 office systems technology instructor calling regarding pt's request to have thoracic spine imaged as well as lumbar. Maki Olivares CNP notified. Okay to order MRI of thoracic spine as well. Order placed. MRI notified. This note was completed by: Matt Stark RN [facility] NUTRITIONon 04-28-2020 NUTRITION HNO ID: [id number] Author: Cori Esposito Service: Nutrition Therapy Author [...] DIET REGULAR Anthropometrics: Height: 170.2 cm (5' 7") Weight: 78.3 kg (172 lb 11.2 oz) [...] significant weight change SIGNATURE: Cori Esposito RD, [place] PATIENT NAME: Fadumo Hensley DATE: April 28, 2020 TIME: 1:59 PM PAGER: For further assistance and weekends please page the Group Pager -[phone] [facility] PROGRESSon 04-28-2020 PROGRESS HNO ID: [id number] Author: Arcelia Stevens (Pa) Service: ? Author Type: Physician Child Day Care Provider Type: Progress Notes Filed: 04/28/2020 2:45 PM Note Text: Order for bl L5-S1 TFESI [facility] CASE MGT INIT ASSESon 2019 CASE MGT INIT ASS HNO ID: [id number] Author: Gina DavisRn) BRIT Villarreal Service: ? 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 Last discharge within 30 days: No Advance Directive: Current Advance Directive: None Central Lab Technician Attempted to Assist with AD Completion: Yes [...] Mostly I feel financially burdened by my oxp-yi-syrhfs expenses for my prescription medication:: 0 - [...] Depression, Anxiety, ADD FREEDOM OF CHOICE EXPLAINED: [place] of Choice Given: No Reason Not Given: No placements necessary POTENTIAL TRANSITION PLANS Home CM met with pt bedside to discuss transition plan. Patient presented to [facility] with Back pain, has history of asthma, [...] 27, 2020 TIME: 1:36 PM PAGER/CONTACT #: [phone] [facility] CBC and Differentialon 04-27 Abs Baso 0.06 k/uL Normal <0.11 [facility] Comment on above: Performed By: #### C BCDIF, CMP ####[place] [phone] Abs Bledsoe 0.25 k/uL Normal <0.87 [facility] Comment on above: Performed By: #### C BCCHIARA CMP ####[place] [phone] Abs Neut 3.91 k/uL Normal 1.45-7.50 [facility] Comment on above: Performed By: #### C BCJAISONF CMP ####[place] [phone] ANC(includeSEG+BAND) 3.91 k/uL [facility] Comment on above: Performed By: #### C BCJAISONF CMP ####[place] [phone] Basophils/100 WBC (Bld) 1.0 % [facility] Comment on above: Performed By: #### C BCDIF, CMP ####[place] [phone] DTYPE Manual Diff [facility] Comment on above: Performed By: #### C BCDIF, CMP ####[place] [address] Eosinophils (Bld) [#/Vol] 0.31 10*3/uL Normal <0.46 [facility] Comment on above: Performed By: #### C BCDIF, CMP ####[place] [id number] Eosinophils/100 WBC (Bld) 5.0 % [facility] Comment on above: Performed By: #### C BCDIF, CMP ####[place] [address] Erythrocyte distribution width (RBC) [Ratio] 12.2 % Normal 11.5-15.0 [facility] Comment on above: Performed By: #### C BCDIF, CMP ####[place] [address] Hematocrit (Bld) [Volume fraction] 36.6 % Normal 36.0-46.0 [facility] Comment on above: Performed By: #### C BCDIF, CMP ####[place] [address] Hemoglobin (Bld) [Mass/Vol] 12.4 g/dL Normal 11.5-15.5 [facility] Comment on above: Performed By: #### C BCDIF, CMP ####[place] [address] Lymphocytes (Bld) [#/Vol] 1.55 10*3/uL Normal 1.00-4.00 [facility] Comment on above: Performed By: #### C BCDIF, CMP ####[place] [phone] Lymphocytes/100 WBC (Bld) 25.0 % [facility] Comment on above: Performed By: #### C BCDIF, CMP ####[place] [phone] Lymphocytes/100 WBC (Bld) 2.0 % [facility] Comment on above: Performed By: #### C BCCHIARA, CMP ####[place] [phone] MCH (RBC) [Entitic mass] 31.2 pG Normal 26.0-34.0 [facility] Comment on above: Performed By: #### C BCDIF, CMP ####[place] [phone] MCHC (RBC) [Mass/Vol] 33.9 g/dL Normal 30.5-36.0 [facility] Comment on above: Performed By: #### C BCJAISONF, CMP ####[place] [phone] MCV (RBC) [Entitic vol] 92.2 fL Normal 80.0-100.0 [facility] Comment on above: Performed By: #### C BCDIF, CMP ####[place] [phone] Monocytes/100 WBC (Bld) 4.0 % [facility] Comment on above: Performed By: #### C BCCHIARA, CMP ####[place] [phone] Neutrophils/100 WBC (Bld) 63.0 % [facility] Comment on above: Performed By: #### C BCDIF, CMP ####[place] [phone] Platelet mean volume (Bld) [Entitic vol] 9.8 fL Normal 9.0-12.7 [facility] Comment on above: Performed By: #### C BCDIF, CMP ####[place] [phone] Platelets (Bld) [#/Vol] 172 10*3/uL Normal 150-400 [facility] Comment on above: Performed By: #### C BCDIF, CMP ####[address] [place] [phone] Platelets (Bld) [#/Vol] Platelet estimate adequate [facility] Comment on above: Performed By: #### C NANCY, CMP ####[address] [phone] RBC (Bld) [#/Vol] 3.97 10*6/uL Normal 3.90-5.20 [facility] Comment on above: Performed By: #### C NANCY, CMP ####[place] [phone] Red Cell Morph SEE COMMENT [facility] Comment on above: Result Comment: Unre markable Performed By: #### C NANCY, CMP ####[place] [phone] WBC (Bld) [#/Vol] 6.21 10*3/uL Normal 3.70-11.00 [facility] Comment on above: Performed By: #### C NANCY, CMP ####[address] [phone] CONSULTon 04-27-2020 CONSULT HNO ID: [id number] Author: Curtis Toro Service: Neurosurgery Author Type: Physician Type: Consults Filed: 04/27/2020 5:46 PM Note Text: CONSULT NOTE SERVICE DATE: 04/27/2020 SERVICE TIME: 12:17 PM PHYSICIAN CONSULT (AK,AV,EU,FV,HL,CODY,MM,S P) Consult performed by: Curtis Toro Consult ordered by: Alem Singh [employer] COUNSELOR PHYSICIAN: Amaya Rasmussen DNP.EDUCATION ADMINISTRATOR Subjective Patient with a two month history of low back pain with radiation into L>R leg says she has recently been getting much worse in regards to pain control. She says the pain started in February when she was walking down her hallway and her legs "gave out". She was able to get to a [...] SURGICAL HISTORY OF December Removal of 4 [place] Teeth FAMILY HISTORY Problem Relation Age of [...] ? 04/27/20 0212 ? 170.2 cm (5' 7") 77.1 kg (170 lb) 04/27/20 020 122/67 36.9 ?C (98.4 ?F) Oral 87 [...] April 27, 2020 TIME: 12:16 PM PAGER: [phone] Staff addendum Ms. Hensley is a pleasant [...] if needed Curtis Toro MD Staff, Neurosurgery [facility] Comp Metabolic Panelon 04-27 Albumin [Mass/Vol] 4.1 g/dL Normal 3.5-5.0 [facility] Comment on above: Performed By: #### C BCDIF, CMP ####[address] [phone] ALP [Catalytic activity/Vol] 65 U/L Normal 34-123 [facility] Comment on above: Performed By: #### C BCDIF, CMP ####[address] [phone] ALT [Catalytic activity/Vol] 36 U/L Normal 0-45 [facility] Comment on above: Performed By: #### C BCDIF, CMP ####[place] [phone] Anion gap [Moles/Vol] 12 mmol/L Normal 9-18 [facility] Comment on above: Performed By: #### C BCDIF, CMP ####[place] [phone] AST [Catalytic activity/Vol] 25 U/L Normal 7-40 [facility] Comment on above: Performed By: #### C BCDIF, CMP ####[place] [phone] Bilirubin [Mass/Vol] 1.1 mg/dL Normal 0.2-1.3 [facility] Comment on above: Performed By: #### C BCDIF, CMP ####[place] [phone] Calcium [Mass/Vol] 8.8 mg/dL Normal 8.5-10.5 [facility] Comment on above: Performed By: #### C BCDIF, CMP ####[phone] Chloride [Moles/Vol] 102 mmol/L Normal 98-110 [facility] Comment on above: Performed By: #### C BCDIF, CMP ####[place] [phone] CO2 [Moles/Vol] 23 mmol/L Normal 23-32 [facility] Comment on above: Performed By: #### C BCDIF, CMP ####[place] [phone] Creatinine [Mass/Vol] 0.65 mg/dL Low 0.70-1.40 [facility] Comment on above: Performed By: #### C BCDIF, CMP ####[place] [phone] eGFR- Amer. >60 Normal >60 [facility] Comment on above: Performed By: #### C BCDIF, CMP ####[place] [phone] GFR/1.73 sq M predicted among non-blacks MDRD (S/P/Bld) [Vol rate/Area] mL/min/{1.73_m2} Normal >60 [facility] Comment on above: Performed By: #### C BCDIF, CMP ####[place] [phone] Glucose [Mass/Vol] 104 mg/dL High 65-100 [facility] Comment on above: Performed By: #### C BCDIF, CMP ####[place] [phone] Potassium [Moles/Vol] 4.1 mmol/L Normal 3.5-5.0 [facility] Comment on above: Performed By: #### C BCDIF, CMP ####[place] [phone] Protein [Mass/Vol] 6.7 g/dL Normal 6.0-8.4 [facility] Comment on above: Performed By: #### C BCDIF, CMP ####[place] [phone] Sodium [Moles/Vol] 137 mmol/L Normal 132-148 [facility] Comment on above: Performed By: #### C BCDIF, CMP ####[place] [phone] Urea nitrogen [Mass/Vol] 12 mg/dL Normal 8-25 [facility] Comment on above: Performed By: #### C BCDIF, CMP ####[place] [phone] Coronavirus 2019on 0 COVID 19 Result LOAN ADMINISTRATOR Negative Normal Negative for COVID19 (SARS CoV2) by PCR. [facility] Comment on above: Result Comment: This test was developed and its performance characteristics determined by [facility] [place]. This test has been authorized by FDA under an Emergency Use Authorization (EUA). This test has been validated in accordance with the FDA's Guidance Document "Policy for Diagnostics Testing in Laboratories Certified to Perform High Complexity Testing under CLIA prior to Emergency use Authorization for Coronavirus Disease 2019 during the Public Health Emergency" issued on September 20, 2019. Performed By: #### C OVID #### [place] [phone] [phone] COVID 19 Source LOAN ADMINISTRATOR Nasopharyngeal Swab [facility] Comment on above: Performed By: #### C OVID #### [place] [phone] [place] [phone] ED NOTEon 04-27-2020 ED NOTE HNO ID: [id number] Author: Jack Castellanos) BRIT Wall Service: ? Author Type: Registered Nurse Type: ED Notes Filed: 04/27/2020 4:11 AM Note Text: Pts covid swab obtained and walked to lab. [facility] ED NOTE HNO ID: [id number] Author: Helio Castellanos) BRIT Wall Service: ? Author Type: Registered Nurse Type: ED Notes Filed: 04/27/2020 3:28 AM Note Text: Report given to Jack PEREA. [facility] ED NOTE HNO ID: [id number] Author: Helio Castellanos) BRIT Wall Service: ? Author Type: Registered Nurse Type: ED Notes Filed: 04/27/2020 3:27 AM Note Text: Pt comes to the ED for urinary incontinence. Pt states that she doesn't feel the urge to pee." Pt states that she visited [facility] last week for this complication and they recommended her to go to [place] ED for an MRI. Pt states that she has had normal BM. Pt states that she had a herniated disc in February. Pt states that she drove to the hospital today. [facility] ED NOTE HNO ID: [id number] Author: Helio (Rn) BRIT Wall Service: ? Author Type: Registered Nurse Type: ED Notes Filed: 04/27/2020 3:20 AM Note Text: Bladder scanner performed. Pt has 10 mL in bladder after voiding before bladder scanner procedure. [facility] ED PROV NOTEon 04-27-2020 ED PROV NOTE HNO ID: [id number] Author: Cristhian Traylor Jr., MD Service: Emergency [...] told to come here, stated seen in [place] ER but unable to perform MRI/did rule [...] joint, site unspecified AC joint tear, 2006 - Patient requested diagnostic testing 04/18/2012 04/18/2012 [...] SURGICAL HISTORY OF December Removal of 4 [place] Teeth FAMILY HISTORY Problem Relation Age of [...] (Src) 98.4 (Oral) Resp 20 Ht 5' 7" (1.70m) Wt 170 lb (77.1kg) SpO2 97% LMP 11/30/2013 BMI 26.62 kg/(m2). O2 Therapy: Room Air Physical Exam Vitals signs and nursing note reviewed. Exam conducted with a senior java developer present. Constitutional: General: She is awake. She is not in acute distress. Appearance: Normal appearance. She is well-developed. She is not ill-appearing, toxic-appearing or diaphoretic. Comments: Well-appearing female no acute distress sitting up in bed HENT: Head: Normocephalic and atraumatic. Mouth/Throat: Lips: Nina. Mouth: Mucous membranes are moist. Eyes: Extraocular [...] A procedure or transfusion was performed - Alexa Sandy PA-C Disposition The patient was admitted. Admitted to Other (comment) (CDU). Condition at disposition is stable. SIGNATURE: BOBBY Rivera (Pa) 04/27/20 0433 ATTENDING ATTESTATION NOTE: I have personally performed a face to face assessment of the patient and have reviewed the PA/PRIVATE CHEF note. My ely findings include: 24-year-old female with a history of herniated disc at L4/L5 and L5/L1. She has had urinary incontinence for the past 2 weeks with increasing low back pain. Patient is ambulatory. No evidence of cauda equina syndrome. Patient be admitted for further evaluation. Cristhina Traylor Jr., MD 04/27/20 0439 [facility] HISTORY PHYSICALon 0 HISTORY PHYSICAL HNO ID: [id number] Author: Alem Singh RN Service: General Internal Medicine Author Type: Nurse Practitioner Type: HANDP Filed: 04/27/2020 6:39 AM Note Text: RAPID OBSERVATION UNIT HISTORY AND PHYSICAL EXAMINATION SERVICE DATE: 04/27/2020 SERVICE TIME: 6:16 AM PRIMARY CARE PHYSICIAN: Amaya Rasmussen DNP.EDUCATION ADMINISTRATOR Subjective CHIEF COMPLAINT: Low back pain, urinary [...] SURGICAL HISTORY OF December Removal of 4 [place] Teeth FAMILY HISTORY Problem Relation Age of [...] (Src) 97.9 (Oral) Resp 20 Ht 5' 7" (1.70m) Wt 172 lb 11.2 oz (78.3kg) [...] UA: not significant for UTI Currently pain 03/01. Emotional and crying when talking about her [...] 27, 2020 TIME: 6:16 AM PAGER/CONTACT #: [facility] NURSING PROGon 04-27-2020 NURSING PROG HNO ID: [id number] Author: Matt (Rn) BRIT Bunn Service: Nursing Author Type: Registered Nurse Type: Nursing Progress Note Filed: 04/27/2020 5:58 PM Note Text: Nursing Progress Note Patient Name: Fadumo Hensley Patient Location: [place] [address] Daily Note: 0715: Received PT handoff from outgoing nurse. 0735: Back pain improved, still numbness and tingling to BLE. 0807: AANDO x 3, pleasant and cooperative.VSS; Afebrile. Meds given as ordered, pills whole with water (see MAR). Continues to C/O low back pain to bilateral legs with numbness and tingling worse of left. PT states pain has improved since Dilaudid, rates pain 5/10. PT states she has urinary incontinence for the last few weeks. If she can maintain a frequent targeted toileting schedule she can avoid episodes of incontinence otherwise "It just comes out". Denies incontinence of bowel. PT up independently, [...] Prn Zanaflex and Gabapentin given. Spoke to LOAN ADMINISTRATOR, Decadron ordered, verbal order to hold until [...] note was completed by: Matt Bunn RN [facility] NURSING PROG HNO ID: [id number] Author: Morenita Castellanos) BRIT [place] Service: Nursing Author Type: Registered Nurse Type: Nursing Progress Note Filed: 04/27/2020 7:09 AM Note Text: Nursing Progress Note Patient Name: Fadumo Hensley Patient Location: [place] [address] [address] Transfer Note: Patient transferred into room/unit 532/1in stable condition. Actions taken: Patient belongings with patient.Pt admitted with Back pain, Numbness BLE AND urinary incontinence. Pt received IM Toradol but continues to c/o 8/10 back pain. 0654 Hrs- Pt medicated with 1 mg IV Dilaudid . Pt calls apropriately for assistance. Would monitor. This note was completed by: Morenita Greenfield RN [facility] PLAN OF CAREon 04-27-2020 PLAN OF CARE HNO ID: [id number] Author: Gela Muir Service: ? Author Type: Nurse Practitioner Type: [...] ?arrange appointment prior to DC Gela Muir APRN.JAMES 04/27/2020 2:20 PM ADDENDUM: DW Dr. Green - will order MRI and he will interpret. Plan for outpatient injections if unchanged. Gela Muir APRN.CNP 04/27/2020 6:47 PM [facility] Urine Cultureon 04-27-2020 Bacteria identified Cx Nom (U) Sp. Request/Comment: - Specimen received in preservative Culture Result - 10,000 - <50,000 CFU/ml Normal urogenital jojo [facility] Comment on above: Performed By: #### U RCUL ####[facility] [place], [place] [id number] [phone] Vital Signs Date Time Vital Sign Value Performing Clinician Facility 04-21-2025 16:58-0400 Diastolic blood pressure 71 mm[Hg] Thanh Marrero DO Work Phone: [facility] 04-21-2025 16:58-0400 Heart rate 90 /min Thanh Marrero DO Work Phone: [facility] 04-21-2025 16:58-0400 Systolic blood pressure 103 mm[Hg] Thanh Marrero DO Work Phone: [facility] 04-21-2025 16:31-0400 Body height 170.2 cm Thanh Marrero DO Work Phone: [facility] 04-21-2025 16:31-0400 Body mass index (BMI) [Ratio] 28.19 kg/m2 Thanh Marrero DO Work Phone: [facility] 04-21-2025 16:31-0400 Body temperature 98.4 [degF] Thanh Marrero DO Work Phone: [facility] 04-21-2025 16:31-0400 Body weight 81.65 kg Thanh Marrero DO Work Phone: [facility] 04-21-2025 16:31-0400 Respiratory rate 18 /min Thanh Marrero DO Work Phone: [facility] 04-21-2025 16:31-0400 SaO2% (BldA) [Mass fraction] 99 % Thanh Marrero DO Work Phone: [facility] 03-26-2025 15:24-0400 Body mass index (BMI) [Ratio] 29.7 kg/m2 Carmelita Millan MD Work Phone: [facility] 03-26-2025 15:24-0400 Body weight 83.46 kg Carmelita Millan MD Work Phone: [facility] 03-26-2025 15:24-0400 Diastolic blood pressure 64 mm[Hg] Carmelita Millan MD Work Phone: [facility] 03-26-2025 15:24-0400 Systolic blood pressure 108 mm[Hg] Carmelita Millan MD Work Phone: [facility] 02-11-2025 01:52-0400 Diastolic blood pressure 76 mm[Hg] Orsanna Ruiz DO Work Phone: [facility] 02-11-2025 01:52-0400 Heart rate 81 /min Rosanna Ruiz DO Work Phone: [facility] 02-11-2025 01:52-0400 Respiratory rate 16 /min Rosanna Ruiz DO Work Phone: [facility] 02-11-2025 01:52-0400 SaO2% (BldA) [Mass fraction] 98 % Rosanna Ruiz DO Work Phone: [facility] 02-11-2025 01:52-0400 Systolic blood pressure 120 mm[Hg] Rosanna Ruiz DO Work Phone: [facility] 02-10-2025 23:55-0400 Body height 170.2 cm Rosanna Ruiz DO Work Phone: [facility] 02-10-2025 23:55-0400 Body mass index (BMI) [Ratio] 28.19 kg/m2 Rosanna Ruiz DO Work Phone: [facility] 02-10-2025 23:55-0400 Body temperature 97.2 [degF] Rosanna Ruiz DO Work Phone: [facility] 02-10-2025 23:55-0400 Body weight 81.65 kg Rosanna Ruiz DO Work Phone: [facility] 01-29-2025 10:21-0400 Body mass index (BMI) [Ratio] 28.57 kg/m2 Carmelita Millan MD Work Phone: [facility] 01-29-2025 10:21-0400 Body weight 80.29 kg Carmelita Millan MD Work Phone: [facility] 01-29-2025 10:21-0400 Diastolic blood pressure 70 mm[Hg] Carmelita Millan MD Work Phone: [facility] 01-29-2025 10:21-0400 Systolic blood pressure 104 mm[Hg] Carmelita Millan MD Work Phone: [facility] 11-18-2024 23:54-0400 Diastolic blood pressure 75 mm[Hg] Honorio Fisher DO Work Phone: [facility] 11-18-2024 23:54-0400 Heart rate 95 /min Honorio Fisher DO Work Phone: [facility] 11-18-2024 23:54-0400 Respiratory rate 20 /min Honorio Fisher DO Work Phone: [facility] 11-18-2024 23:54-0400 SaO2% (BldA) [Mass fraction] 100 % Honorio Fisher DO Work Phone: [facility] 11-18-2024 23:54-0400 Systolic blood pressure 139 mm[Hg] Honorio Fisher DO Work Phone: [facility] 11-18-2024 22:16-0400 Body height 167.6 cm Honorio Fisher DO Work Phone: [facility] 11-18-2024 22:16-0400 Body mass index (BMI) [Ratio] 28.41 kg/m2 Honorio Fisher DO Work Phone: [facility] 11-18-2024 22:16-0400 Body temperature 97.81 [degF] Honorio Fisher DO Work Phone: [facility] 11-18-2024 22:16-0400 Body weight 79.83 kg Honorio Fisher DO Work Phone: [facility] 09-05-2024 21:26-0500 Diastolic blood pressure 78 mm[Hg] Keaton Tracy MD Work Phone: [facility] 09-05-2024 21:26-0500 Heart rate 76 /min Keaton Tracy MD Work Phone: [facility] 09-05-2024 21:26-0500 Respiratory rate 16 /min Keaton Tracy MD Work Phone: [facility] 09-05-2024 21:26-0500 SaO2% (BldA) [Mass fraction] 100 % Keaton Tracy MD Work Phone: [facility] 09-05-2024 21:26-0500 Systolic blood pressure 118 mm[Hg] Keaton Tracy MD Work Phone: [facility] 09-05-2024 19:28-0500 Body height 167.6 cm Keaton Tracy MD Work Phone: [facility] 09-05-2024 19:28-0500 Body mass index (BMI) [Ratio] 29.05 kg/m2 Keaton Tracy MD Work Phone: [facility] 09-05-2024 19:28-0500 Body temperature 97.3 [degF] Keaton Tracy MD Work Phone: [facility] 09-05-2024 19:28-0500 Body weight 81.65 kg Keaton Tracy MD Work Phone: [facility] 06-24-2024 15:30-0500 Body mass index (BMI) [Ratio] 30.99 kg/m2 Carmelita Millan MD Work Phone: [facility] 06-24-2024 15:30-0500 Body weight 87.09 kg Carmelita Millan MD Work Phone: [facility] 06-24-2024 15:30-0500 Diastolic blood pressure 70 mm[Hg] Carmelita Millan MD Work Phone: [facility] 06-24-2024 15:30-0500 Systolic blood pressure 106 mm[Hg] Carmelita Millan MD Work Phone: [facility] 05-27-2024 12:47-0500 Body mass index (BMI) [Ratio] 30.6 kg/m2 Jil Bailey SENIOR COMMUNICATIONS SPECIALIST.EDUCATION ADMINISTRATOR Work Phone: [facility] 05-27-2024 12:47-0500 Body temperature 97.39 [degF] Jil Bailey SENIOR COMMUNICATIONS SPECIALIST.EDUCATION ADMINISTRATOR Work Phone: [facility] 05-27-2024 12:47-0500 Body weight 86 kg Jil Bailey SENIOR COMMUNICATIONS SPECIALIST.EDUCATION ADMINISTRATOR Work Phone: [facility] 05-27-2024 12:47-0500 Diastolic blood pressure 74 mm[Hg] Jil Bailey SENIOR COMMUNICATIONS SPECIALIST.EDUCATION ADMINISTRATOR Work Phone: [facility] 05-27-2024 12:47-0500 Heart rate 105 /min Jil Bailey SENIOR COMMUNICATIONS SPECIALIST.EDUCATION ADMINISTRATOR Work Phone: [facility] 05-27-2024 12:47-0500 Respiratory rate 18 /min Jil Bailey SENIOR COMMUNICATIONS SPECIALIST.EDUCATION ADMINISTRATOR Work Phone: [facility] 05-27-2024 12:47-0500 SaO2% (BldA) [Mass fraction] 98 % Jil Bailey SENIOR COMMUNICATIONS SPECIALIST.EDUCATION ADMINISTRATOR Work Phone: [facility] 05-27-2024 12:47-0500 Systolic blood pressure 108 mm[Hg] Jil Bailey SENIOR COMMUNICATIONS SPECIALIST.EDUCATION ADMINISTRATOR Work Phone: [facility] 05-19-2024 15:06-0400 Diastolic blood pressure 68 mm[Hg] Angela Eun SENIOR COMMUNICATIONS SPECIALIST.EDUCATION ADMINISTRATOR Work Phone: [facility] Comment on above: after Liletta removal 05-19-2024 15:06-0400 Systolic blood pressure 122 mm[Hg] Angela Eun SENIOR COMMUNICATIONS SPECIALIST.EDUCATION ADMINISTRATOR Work Phone: [facility] Comment on above: after Liletta removal 05-19-2024 14:44-0400 Body mass index (BMI) [Ratio] 30.99 kg/m2 Angela Browns SENIOR COMMUNICATIONS SPECIALIST.EDUCATION ADMINISTRATOR Work Phone: [facility] 05-19-2024 14:44-0400 Body weight 87.09 kg Angela Eun SENIOR COMMUNICATIONS SPECIALIST.EDUCATION ADMINISTRATOR Work Phone: [facility] 05-16-2024 12:31-0400 Body mass index (BMI) [Ratio] 30.67 kg/m2 Keaton Tracy MD Work Phone: [facility] 05-16-2024 12:31-0400 Body weight 86.18 kg Keaton Tracy MD Work Phone: [facility] 04-15-2024 23:44-0400 Body temperature 98.71 [degF] [facility] 04-15-2024 23:44-0400 Diastolic blood pressure 79 mm[Hg] [facility] 04-15-2024 23:44-0400 Heart rate 102 /min [facility] 04-15-2024 23:44-0400 Respiratory rate 18 /min [facility] 04-15-2024 23:44-0400 SaO2% (BldA) [Mass fraction] 96 % [facility] 04-15-2024 23:44-0400 Systolic blood pressure 121 mm[Hg] [facility] 04-15-2024 17:14-0400 Diastolic blood pressure 85 mm[Hg] Keaton Tracy MD Work Phone: 3(983)364-315693 [place] [address] 04-15-2024 17:14-0400 Heart rate 83 /min Keaton Tracy MD Work Phone: 7(884)547-911893 [place] [address] 04-15-2024 17:14-0400 Respiratory rate 18 /min Keaton Tracy MD Work Phone: 9(224)694-385393 [place] [address] 04-15-2024 17:14-0400 SaO2% (BldA) [Mass fraction] 96 % Keaton Tracy MD Work Phone: 8(098)472-443593 [place] [address] 04-15-2024 17:14-0400 Systolic blood pressure 124 mm[Hg] Keaton Tracy MD Work Phone: 8(436)039-749193 [place] [address] 04-15-2024 12:52-0400 Body height 170.2 cm Keaton Tracy MD Work Phone: 4(306)066-867793 [place] [address] 04-15-2024 12:52-0400 Body mass index (BMI) [Ratio] 28.19 kg/m2 Keaton Tracy MD Work Phone: 0(399)794-775693 [place] [address] 04-15-2024 12:52-0400 Body temperature 97.39 [degF] Keaton Tracy MD Work Phone: 9(309)139-310893 [place] [address] 04-15-2024 12:52-0400 Body weight 81.65 kg Keaton Tracy MD Work Phone: 6(421)956-902393 [place] [address] 04-10-2024 23:25-0400 Blood Pressure Location ROB HARDWICK DO [facility] 04-10-2024 23:25-0400 Blood Pressure Method ROB HARDWICK DO [facility] 04-10-2024 23:25-0400 Diastolic Blood Pressure Non-Invasive 65 mm[Hg] NIDAL CHOUJAA DO [facility] 04-10-2024 23:25-0400 Heart rate 85 /min NIDAL CHOUJAA DO [facility] 04-10-2024 23:25-0400 Respiratory rate 20 /min NIDAL CHOUJAA DO [facility] 04-10-2024 23:25-0400 Systolic Blood Pressure Non-Invasive 108 mm[Hg] NIDAL CHOUJAA DO [facility] 04-10-2024 22:23-0400 Heart rate 87 /min NIDAL CHOUJAA DO [facility] 04-10-2024 22:23-0400 Reason For Taking VItal Signs NIDAL CHOUJAA DO [facility] 04-10-2024 22:23-0400 Respiratory rate 18 /min NIDAL CHOUJAA DO [facility] 04-10-2024 21:22-0400 Heart rate 79 /min NIDAL CHOUJAA DO [facility] 04-10-2024 21:22-0400 Reason For Taking VItal Signs NIDAL CHOUJAA DO [facility] 04-10-2024 21:22-0400 Respiratory rate 18 /min NIDAL CHOUJAA DO [facility] 04-10-2024 20:18-0400 Blood Pressure Location NIDAL CHOUJAA DO [facility] 04-10-2024 20:18-0400 Blood Pressure Method NIDAL CHOUJAA DO [facility] 04-10-2024 20:18-0400 Body height 170.2 cm NIDAL CHOUJAA DO [facility] 04-10-2024 20:18-0400 Body temperature 100.22 [degF] NIDAL CHOUJAA DO [facility] 04-10-2024 20:18-0400 Body weight 82 kg NIDAL CHOUJAA DO [facility] 04-10-2024 20:18-0400 Diastolic Blood Pressure Non-Invasive 81 mm[Hg] NIDAL CHOUJAA DO [facility] 04-10-2024 20:18-0400 Heart rate 98 /min NIDAL CHOUJAA DO [facility] 04-10-2024 20:18-0400 Systolic Blood Pressure Non-Invasive 114 mm[Hg] NIDAL CHOUJAA DO [facility] 04-10-2024 19:17-0400 Body mass index (BMI) [Ratio] 29.53 kg/m2 [facility] SENIOR COMMUNICATIONS SPECIALIST.EDUCATION ADMINISTRATOR Work Phone: [facility] 04-10-2024 19:17-0400 Body weight 83 [facility] SENIOR COMMUNICATIONS SPECIALIST.EDUCATION ADMINISTRATOR Work Phone: [facility] 03-24-2024 22:17-0400 Diastolic Blood Pressure Non-Invasive 80 mm[Hg] VERO HEATH MD [facility] 03-24-2024 22:17-0400 Heart rate 82 /min VERO HEATH MD [facility] 03-24-2024 22:17-0400 Respiratory rate 16 /min VERO HEATH MD [facility] 03-24-2024 22:17-0400 Systolic Blood Pressure Non-Invasive 116 mm[Hg] VERO HEATH MD [facility] 03-24-2024 20:14-0400 Body temperature 98.06 [degF] VERO HEATH MD [facility] 03-24-2024 20:14-0400 Diastolic Blood Pressure Non-Invasive 80 mm[Hg] VERO HEATH MD [facility] 03-24-2024 20:14-0400 Heart rate 82 /min VERO HEATH MD [facility] 03-24-2024 20:14-0400 Respiratory rate 16 /min VERO HEATH MD [facility] 03-24-2024 20:14-0400 Systolic Blood Pressure Non-Invasive 121 mm[Hg] VERO HEATH MD [facility] 03-16-2024 10:33-0400 Blood Pressure Cuff Size JUAN ELLIS MD [facility] 03-16-2024 10:33-0400 Blood Pressure Location JUAN ELLIS MD [facility] 03-16-2024 10:33-0400 Blood Pressure Method JUAN ELLIS MD [facility] 03-16-2024 10:33-0400 Body temperature 98.24 [degF] JUAN ELLIS MD [facility] 03-16-2024 10:33-0400 Diastolic Blood Pressure Non-Invasive 66 mm[Hg] JUAN ELLIS MD [facility] 03-16-2024 10:33-0400 Heart rate 65 /min JUAN ELLIS MD [facility] 03-16-2024 10:33-0400 Reason For Taking VItal Signs JUAN ELLIS MD [facility] 03-16-2024 10:33-0400 Respiratory rate 18 /min JUAN ELLIS MD [address] 03-16-2024 10:33-0400 Systolic Blood Pressure Non-Invasive 97 mm[Hg] JUAN ELLIS MD [address] 03-16-2024 06:40-0400 Body temperature 98.42 [degF] JUAN ELLIS MD [address] 03-16-2024 06:40-0400 Diastolic Blood Pressure Non-Invasive 55 mm[Hg] JUAN ELLIS MD [address] 03-16-2024 06:40-0400 Heart rate 57 /min JUAN ELLIS MD [address] 03-16-2024 06:40-0400 Reason For Taking VItal Signs JUAN ELLIS MD [address] 03-16-2024 06:40-0400 Respiratory rate 16 /min JUAN ELLIS MD [address] 03-16-2024 06:40-0400 Systolic Blood Pressure Non-Invasive 96 mm[Hg] JUAN ELLIS MD [address] 03-16-2024 02:47-0400 Blood Pressure Location JUAN ELLIS MD [address] 03-16-2024 02:47-0400 Blood Pressure Method JUAN ELLIS MD [address] 03-16-2024 02:47-0400 Body temperature 98.24 [degF] JUAN ELLIS MD [address] 03-16-2024 02:47-0400 Diastolic Blood Pressure Non-Invasive 64 mm[Hg] JUAN ELLIS MD [facility] 03-16-2024 02:47-0400 Heart rate 58 /min JUAN ELLIS MD [facility] 03-16-2024 02:47-0400 Reason For Taking VItal Signs JUAN ELLIS MD [facility] 03-16-2024 02:47-0400 Respiratory rate 20 /min JUAN ELLIS MD [facility] 03-16-2024 02:47-0400 Systolic Blood Pressure Non-Invasive 106 mm[Hg] JUAN ELLIS MD [facility] 03-15-2024 22:43-0400 Blood Pressure Location JUAN ELLIS MD [facility] 03-15-2024 22:43-0400 Blood Pressure Method JUAN ELLIS MD [facility] 03-15-2024 13:22-0400 Heart rate 82 /min JUAN ELLIS MD [facility] 03-15-2024 13:22-0400 Mean blood pressure 80 mm[Hg] JUAN ELLIS MD [facility] 03-15-2024 13:12-0400 Heart rate 96 /min JUAN ELLIS MD [facility] 03-15-2024 12:42-0400 Body temperature 97.7 [degF] JUAN ELLIS MD [facility] 03-15-2024 12:42-0400 Heart rate 93 /min JUAN ELLIS MD [facility] 03-15-2024 12:42-0400 Mean blood pressure 81 mm[Hg] JUAN ELLIS MD [facility] 03-15-2024 12:27-0400 Mean blood pressure 84 mm[Hg] JUAN ELLIS MD [address] [place] [address] 03-15-2024 11:46-0400 Body temperature 97.88 [degF] JUAN ELLIS MD [address] 03-15-2024 11:12-0400 Body temperature 97.88 [degF] JUAN ELLIS MD [address] [place] [address] 03-15-2024 11:05-0400 Respiratory Rate - Anes 14 br/min JUAN ELLIS MD [address] [place] [address] 03-15-2024 11:00-0400 Respiratory Rate - Anes 17 br/min JUAN ELLIS MD [address] [place] [address] 03-15-2024 10:55-0400 Body temperature 98.17 [degF] JUAN ELLIS MD [address] [place] [address] 03-15-2024 10:55-0400 Respiratory Rate - Anes 13 br/min JUAN ELLIS MD [address] [place] [address] 03-15-2024 10:50-0400 Body temperature 98.02 [degF] JUAN ELLIS MD [address] [place] [address] 03-15-2024 10:45-0400 Body temperature 97.84 [degF] JUAN ELLIS MD [address] [place] [address] 03-15-2024 02:06-0400 Body weight 28.69 kg/m2 JUAN ELLIS MD [address] [place] [address] 03-15-2024 00:07-0400 Blood Pressure Cuff Size JUAN ELLIS MD [address] [place] [address] 03-14-2024 20:49-0400 Body height 170.2 cm JUAN ELLIS MD [address] [place] [address] 03-14-2024 20:49-0400 Body weight 83.1 kg JUAN ELLIS MD [address] [place] [address] 03-14-2024 20:49-0400 Body weight 28.69 kg/m2 JUAN ELLIS MD [facility] 03-14-2024 19:33-0400 Diastolic Blood Pressure Non-Invasive 78 mm[Hg] DR TORI ANTOINE DO [facility] 03-14-2024 19:33-0400 Heart rate 74 /min DR TORI ANTOINE DO [facility] 03-14-2024 19:33-0400 Reason For Taking VItal Signs DR TORI ANTOINE DO [facility] 03-14-2024 19:33-0400 Respiratory rate 18 /min DR TORI ANTOINE DO [facility] 03-14-2024 19:33-0400 Systolic Blood Pressure Non-Invasive 115 mm[Hg] DR TORI ANTOINE DO [facility] 03-14-2024 17:17-0400 Body height 170.[address] TORI ANTOINE DO [facility] 03-14-2024 17:17-0400 Body temperature 98.06 [degF] DR TORI ANTOINE DO [facility] 03-14-2024 17:17-0400 Body weight 81.[address] TORI ANTOINE DO [facility] 03-14-2024 17:17-0400 Diastolic Blood Pressure Non-Invasive 94 mm[Hg] DR TORI ANTOINE DO [facility] 03-14-2024 17:17-0400 Heart rate 75 /min DR TORI ANTOINE DO [facility] 03-14-2024 17:17-0400 Respiratory rate 18 /min DR TORI ANTOINE DO [facility] 03-14-2024 17:17-0400 Systolic Blood Pressure Non-Invasive 186 mm[Hg] DR TORI ANTOINE DO [facility] 11-20-2023 19:54-0400 Diastolic blood pressure 83 mm[Hg] Matt Morgan DO Work Phone: [facility] 11-20-2023 19:54-0400 Heart rate 75 /min Matt Morgan DO Work Phone: [facility] 11-20-2023 19:54-0400 Respiratory rate 18 /min Matt Morgan DO Work Phone: [facility] 11-20-2023 19:54-0400 SaO2% (BldA) [Mass fraction] 100 % Matt Morgan DO Work Phone: [facility] 11-20-2023 19:54-0400 Systolic blood pressure 113 mm[Hg] Matt Morgan DO Work Phone: [facility] 11-20-2023 19:25-0400 Body height 170.2 cm Matt Morgan DO Work Phone: [facility] 11-20-2023 19:25-0400 Body mass index (BMI) [Ratio] 26.78 kg/m2 Matt Morgan DO Work Phone: [facility] 11-20-2023 19:25-0400 Body temperature 99 [degF] Matt Morgan DO Work Phone: [facility] 11-20-2023 19:25-0400 Body weight 77.56 kg Matt Morgan DO Work Phone: [facility] 11-19-2023 17:41-0400 Body mass index (BMI) [Ratio] 27.72 kg/m2 Stephy Briones APRN.EDUCATION ADMINISTRATOR Work Phone: [facility] 11-19-2023 17:41-0400 Body temperature 98.71 [degF] Stephy Briones APRN.EDUCATION ADMINISTRATOR Work Phone: [facility] 11-19-2023 17:41-0400 Body weight 77.9 kg Stephy Briones APRN.EDUCATION ADMINISTRATOR Work Phone: [facility] 11-19-2023 17:41-0400 Diastolic blood pressure 66 mm[Hg] Stephy Briones SENIOR COMMUNICATIONS SPECIALIST.EDUCATION ADMINISTRATOR Work Phone: [facility] 11-19-2023 17:41-0400 Heart rate 82 /min Stephy Briones APRN.EDUCATION ADMINISTRATOR Work Phone: [facility] 11-19-2023 17:41-0400 Respiratory rate 20 /min Stephy Briones APRN.EDUCATION ADMINISTRATOR Work Phone: [facility] 11-19-2023 17:41-0400 SaO2% (BldA) [Mass fraction] 97 % Stephy Briones APRN.EDUCATION ADMINISTRATOR Work Phone: [facility] 11-19-2023 17:41-0400 Systolic blood pressure 98 mm[Hg] Stephy Briones SENIOR COMMUNICATIONS SPECIALIST.EDUCATION ADMINISTRATOR Work Phone: [facility] 11-15-2023 17:38-0400 Body mass index (BMI) [Ratio] 27.75 kg/m2 Chey Ladd SENIOR COMMUNICATIONS SPECIALIST.EDUCATION ADMINISTRATOR Work Phone: [facility] 11-15-2023 17:38-0400 Body temperature 98.2 [degF] Chey Ladd SENIOR COMMUNICATIONS SPECIALIST.EDUCATION ADMINISTRATOR Work Phone: [facility] 11-15-2023 17:38-0400 Body weight 78 kg Chey Ladd SENIOR COMMUNICATIONS SPECIALIST.EDUCATION ADMINISTRATOR Work Phone: [facility] 11-15-2023 17:38-0400 Diastolic blood pressure 71 mm[Hg] Chey Ladd SENIOR COMMUNICATIONS SPECIALIST.EDUCATION ADMINISTRATOR Work Phone: [facility] 11-15-2023 17:38-0400 Heart rate 82 /min Chey Ladd SENIOR COMMUNICATIONS SPECIALIST.EDUCATION ADMINISTRATOR Work Phone: [facility] 11-15-2023 17:38-0400 Respiratory rate 18 /min Chey Ladd SENIOR COMMUNICATIONS SPECIALIST.EDUCATION ADMINISTRATOR Work Phone: [facility] 11-15-2023 17:38-0400 SaO2% (BldA) [Mass fraction] 99 % Chey Ladd SENIOR COMMUNICATIONS SPECIALIST.EDUCATION ADMINISTRATOR Work Phone: [facility] 11-15-2023 17:38-0400 Systolic blood pressure 106 mm[Hg] Chey Ladd SENIOR COMMUNICATIONS SPECIALIST.EDUCATION ADMINISTRATOR Work Phone: [facility] 11-06-2023 09:55-0400 Body temperature 97.7 [degF] Dev Narayan MD Work Phone: [facility] 11-06-2023 09:55-0400 Diastolic blood pressure 63 mm[Hg] Dev Narayan MD Work Phone: 4(324)994-142611 [place] [address] 11-06-2023 09:55-0400 Heart rate 72 /min Dev Narayan MD Work Phone: 7(506)731-133797 [place] [address] 11-06-2023 09:55-0400 Respiratory rate 16 /min Dev Narayan MD Work Phone: 6(698)128-692497 [place] [address] 11-06-2023 09:55-0400 SaO2% (BldA) [Mass fraction] 98 % Dev Narayan MD Work Phone: [facility] 11-06-2023 09:55-0400 Systolic blood pressure 112 mm[Hg] Dev Narayan MD Work Phone: 6(268)805-414897 [place] [address] 11-06-2023 07:15-0400 Body height 170 cm Dev Narayan MD Work Phone: 2(630)[phone] [place] [address] 11-06-2023 07:15-0400 Body mass index (BMI) [Ratio] 27.34 kg/m2 Dev Narayan MD Work Phone: 6(965)371-957097 [place] [address] 11-06-2023 07:15-0400 Body weight 79 kg Dev Narayan MD Work Phone: 0(735)112-861911 [place] [address] 10-01-2023 16:04-0400 Body weight 79.2 kg Damaso Samuels Jr., MD Work Phone: [facility] 10-01-2023 16:04-0400 Diastolic blood pressure 70 mm[Hg] Damaso Samuels Jr., MD Work Phone: [facility] 10-01-2023 16:04-0400 Heart rate 128 /min Damaso Samuels Jr., MD Work Phone: [facility] 10-01-2023 16:04-0400 Respiratory rate 16 /min Damaso Samuels Jr., MD Work Phone: [facility] 10-01-2023 16:04-0400 SaO2% (BldA) [Mass fraction] 97 % Damaso Samuels Jr., MD Work Phone: [facility] 10-01-2023 16:04-0400 Systolic blood pressure 128 mm[Hg] Damaso Samuels Jr., MD Work Phone: [facility] 09-24-2023 15:10-0500 Body height 167.6 cm Dev Narayan MD Work Phone: [facility] 09-24-2023 15:10-0500 Body mass index (BMI) [Ratio] 28.57 kg/m2 Dev Narayan MD Work Phone: [facility] 09-24-2023 15:10-0500 Body weight 80.29 kg Dev Narayan MD Work Phone: [facility] [facility] 09-24-2023 15:10-0500 Respiratory rate 16 /min Dev Narayan MD Work Phone: [facility] 09-21-2023 12:53-0500 Body weight 80.29 kg Aliyah Carter APRN.EDUCATION ADMINISTRATOR Work Phone: [facility] 09-21-2023 12:53-0500 Diastolic blood pressure 60 mm[Hg] Aliyah Carter APRN.EDUCATION ADMINISTRATOR Work Phone: [facility] 09-21-2023 12:53-0500 Heart rate 84 /min Aliyah Carter APRN.EDUCATION ADMINISTRATOR Work Phone: [facility] 09-21-2023 12:53-0500 Respiratory rate 18 /min Aliyah Carter SENIOR COMMUNICATIONS SPECIALIST.EDUCATION ADMINISTRATOR Work Phone: [facility] 09-21-2023 12:53-0500 SaO2% (BldA) [Mass fraction] 99 % Aliyah Carter SENIOR COMMUNICATIONS SPECIALIST.EDUCATION ADMINISTRATOR Work Phone: [facility] 09-21-2023 12:53-0500 Systolic blood pressure 110 mm[Hg] Aliyah Carter SENIOR COMMUNICATIONS SPECIALIST.EDUCATION ADMINISTRATOR Work Phone: [facility] 09-03-2023 11:10-0500 Body temperature 97.3 [degF] Bibi Podlogar SENIOR COMMUNICATIONS SPECIALIST.EDUCATION ADMINISTRATOR Work Phone: [facility] 09-03-2023 11:10-0500 Body weight 80.65 kg Bibi Podlogar SENIOR COMMUNICATIONS SPECIALIST.EDUCATION ADMINISTRATOR Work Phone: [facility] 09-03-2023 11:10-0500 Diastolic blood pressure 60 mm[Hg] Bibi Podlogar SENIOR COMMUNICATIONS SPECIALIST.EDUCATION ADMINISTRATOR Work Phone: [facility] 09-03-2023 11:10-0500 Heart rate 89 /min Bibi Podlogar SENIOR COMMUNICATIONS SPECIALIST.EDUCATION ADMINISTRATOR Work Phone: [facility] 09-03-2023 11:10-0500 SaO2% (BldA) [Mass fraction] 94 % Bibi Podlogar SENIOR COMMUNICATIONS SPECIALIST.EDUCATION ADMINISTRATOR Work Phone: [facility] 09-03-2023 11:10-0500 Systolic blood pressure 110 mm[Hg] Bibi Podlogar SENIOR COMMUNICATIONS SPECIALIST.EDUCATION ADMINISTRATOR Work Phone: [facility] 08-26-2023 22:04-0500 Diastolic blood pressure 72 mm[Hg] No Generic Provider [facility] 08-26-2023 22:04-0500 Heart rate 96 /min No Generic Provider [facility] 08-26-2023 22:04-0500 Respiratory rate 20 /min No Generic Provider [facility] 08-26-2023 22:04-0500 SaO2% (BldA) [Mass fraction] 99 % No Generic Provider [facility] 08-26-2023 22:04-0500 Systolic blood pressure 122 mm[Hg] No Generic Provider [facility] 08-26-2023 17:53-0500 Body height 167.6 cm No Generic Provider [facility] 08-26-2023 17:53-0500 Body mass index (BMI) [Ratio] 28.41 kg/m2 No Generic Provider [facility] 08-26-2023 17:53-0500 Body temperature 97.5 [degF] No Generic Provider [facility] 08-26-2023 17:53-0500 Body weight 79.83 kg No Generic Provider [facility] 07-03-2023 11:01-0500 Body height 167.6 cm Keaton Tracy MD Work Phone: [facility] 07-03-2023 11:01-0500 Body weight 81.65 kg Keaton Tracy MD Work Phone: [facility] 06-13-2023 13:24-0500 Body height 170.2 cm Debby Reeves MD Work Phone: [facility] 06-13-2023 13:24-0500 Body weight 81.19 kg Debby Reeves MD Work Phone: [facility] 06-13-2023 13:24-0500 Diastolic blood pressure 80 mm[Hg] Debby Reeves MD Work Phone: [facility] 06-13-2023 13:24-0500 Heart rate 72 /min Debby Reeves MD Work Phone: [facility] 06-13-2023 13:24-0500 Respiratory rate 16 /min Debby Reeves MD Work Phone: [facility] 06-13-2023 13:24-0500 Systolic blood pressure 120 mm[Hg] Debby Reeves MD Work Phone: [facility] 06-06-2023 14:07-0500 Body weight 81.19 kg Carmelita Millan MD Work Phone: [facility] 06-06-2023 14:07-0500 Diastolic blood pressure 70 mm[Hg] Carmelita Millan MD Work Phone: [facility] 06-06-2023 14:07-0500 Systolic blood pressure 102 mm[Hg] Carmelita Millan MD Work Phone: [facility] 06-04-2023 22:44-0500 Diastolic blood pressure 78 mm[Hg] Dr. Joe Reeves Work Phone: [facility] 06-04-2023 22:44-0500 Heart rate 87 /min Dr. Joe Reeves Work Phone: [facility] 06-04-2023 22:44-0500 Respiratory rate 16 /min Dr. Joe Reeves Work Phone: [facility] 06-04-2023 22:44-0500 SaO2% (BldA) [Mass fraction] 97 % Dr. Joe Reeves Work Phone: [facility] 06-04-2023 22:44-0500 Systolic blood pressure 120 mm[Hg] Dr. Joe Reeves Work Phone: [facility] 06-04-2023 17:57-0500 Body height 168.[address] Joe Reeves Work Phone: [phone] [place] [address] 06-04-2023 17:57-0500 Body mass index (BMI) [Ratio] 28.7 kg/m2 Dr. Joe eReves Work Phone: [facility] 06-04-2023 17:57-0500 Body temperature 98.6 [degF] Dr. Joe Reeves Work Phone: [facility] 06-04-2023 17:57-0500 Body weight [address] Joe Reeves Work Phone: [facility] 06-03-2023 18:20-0500 Heart rate 96 /min [facility] Work Phone: 06-03-2023 18:20-0500 Respiratory rate 22 /min [facility] Work Phone: 06-03-2023 18:20-0500 SaO2% (BldA) [Mass fraction] 97 % [facility] Work Phone: 06-03-2023 18:00-0500 Diastolic blood pressure 78 mm[Hg] [facility] Work Phone: 06-03-2023 18:00-0500 Systolic blood pressure 135 mm[Hg] [facility] Work Phone: 06-03-2023 17:27-0500 Body height 167.64 cm [facility] Work Phone: 06-03-2023 17:27-0500 Body mass index (BMI) [Ratio] 28.6 kg/m2 [facility] Work Phone: 06-03-2023 17:27-0500 Body temperature 98.4 [degF] [facility] Work Phone: 06-03-2023 17:27-0500 Body weight 80.28 kg [facility] Work Phone: 05-11-2023 15:12-0400 Body temperature 97.9 [degF] Dr. Joe Reeves Work Phone: [facility] 05-11-2023 15:12-0400 Diastolic blood pressure 62 mm[Hg] Dr. Joe Reeves Work Phone: [facility] 05-11-2023 15:12-0400 Heart rate 82 /min Dr. Joe Reeves Work Phone: [facility] 05-11-2023 15:12-0400 Respiratory rate 16 /min Dr. Joe Reeves Work Phone: [facility] 05-11-2023 15:12-0400 SaO2% (BldA) [Mass fraction] 100 % Dr. Joe Reeves Work Phone: [facility] 05-11-2023 15:12-0400 Systolic blood pressure 127 mm[Hg] Dr. Joe Reeves Work Phone: [facility] 05-11-2023 11:56-0400 Body height 170.[address] Joe Reeves Work Phone: [facility] 05-11-2023 11:56-0400 Body mass index (BMI) [Ratio] 27.6 kg/m2 Dr. Joe Reeves Work Phone: [facility] 05-11-2023 11:56-0400 Body weight [address] Joe Reeves Work Phone: [facility] 05-09-2023 11:40-0400 Body height 170.2 cm Carmelita Millan MD Work Phone: [facility] 05-09-2023 11:40-0400 Body weight 80.29 kg Carmelita Millan MD Work Phone: [facility] 05-09-2023 11:40-0400 Diastolic blood pressure 74 mm[Hg] Carmelita Millan MD Work Phone: [facility] 05-09-2023 11:40-0400 Heart rate 104 /min Carmelita Millan MD Work Phone: [facility] 05-09-2023 11:40-0400 Respiratory rate 16 /min Carmelita Millan MD Work Phone: [facility] 05-09-2023 11:40-0400 Systolic blood pressure 112 mm[Hg] Carmelita Millan MD Work Phone: [facility] 03-14-2023 11:38-0400 Body height 170.2 cm Carmelita Millan MD Work Phone: [facility] 03-14-2023 11:38-0400 Body weight 81.65 kg Carmelita Millan MD Work Phone: [facility] 03-14-2023 11:38-0400 Diastolic blood pressure 60 mm[Hg] Carmelita Millan MD Work Phone: [facility] 03-14-2023 11:38-0400 Heart rate 95 /min Carmelita Millan MD Work Phone: [facility] 03-14-2023 11:38-0400 Respiratory rate 16 /min Carmelita Millan MD Work Phone: [facility] 03-14-2023 11:38-0400 SaO2% (BldA) [Mass fraction] 98 % Carmelita Millan MD Work Phone: [facility] 03-14-2023 11:38-0400 Systolic blood pressure 106 mm[Hg] Carmelita Millan MD Work Phone: [facility] 03-13-2023 10:02-0400 Body temperature 98.91 [degF] Debby Reeves MD Work Phone: [facility] 03-13-2023 10:02-0400 Body weight 82.19 kg Debby Reeves MD Work Phone: [facility] 03-13-2023 10:02-0400 Diastolic blood pressure 64 mm[Hg] Debby Reeves MD Work Phone: [facility] 03-13-2023 10:02-0400 Heart rate 98 /min Debby Reeves MD Work Phone: [facility] 03-13-2023 10:02-0400 Respiratory rate 16 /min Debby Reeves MD Work Phone: [facility] 03-13-2023 10:02-0400 SaO2% (BldA) [Mass fraction] 98 % Debby Reeves MD Work Phone: [facility] 03-13-2023 10:02-0400 Systolic blood pressure 118 mm[Hg] Debby Reeves MD Work Phone: [facility] 03-03-2023 11:11-0400 Diastolic blood pressure 78 mm[Hg] Damaso Jang MD Work Phone: [facility] 03-03-2023 11:11-0400 Systolic blood pressure 116 mm[Hg] Damaso Jang MD Work Phone: [facility] 08-12-2023 10:48-0400 Body weight 83.46 kg Damaso Jang MD Work Phone: [facility] 03-03-2023 10:48-0400 Heart rate 100 /min Damaso Jang MD Work Phone: [facility] 03-03-2023 10:48-0400 Respiratory rate 18 /min Damaso Jang MD Work Phone: [facility] 03-03-2023 10:48-0400 SaO2% (BldA) [Mass fraction] 97 % Damaso Jang MD Work Phone: [facility] 02-16-2023 23:16-0400 Diastolic blood pressure 68 mm[Hg] Dr. Joe Reeves Work Phone: [facility] 02-16-2023 23:16-0400 Heart rate 69 /min Dr. Joe Reeves Work Phone: [facility] 02-16-2023 23:16-0400 Respiratory rate 16 /min Dr. Joe Reeves Work Phone: [facility] 02-16-2023 23:16-0400 SaO2% (BldA) [Mass fraction] 100 % Dr. Joe Reeves Work Phone: [facility] 02-16-2023 23:16-0400 Systolic blood pressure 116 mm[Hg] Dr. Joe Reeves Work Phone: [facility] 02-16-2023 21:11-0400 Body mass index (BMI) [Ratio] 30.7 kg/m2 Dr. Joe Reeves Work Phone: [facility] 02-16-2023 21:11-0400 Body weight 88.[address] Joe Reeves Work Phone: [facility] 02-16-2023 16:18-0400 Body height 170.[address] Joe Reeves Work Phone: [facility] 02-16-2023 16:18-0400 Body temperature 97.1 [degF] Dr. Joe Reeves Work Phone: [facility] 02-14-2023 16:25-0400 Body height 170.2 cm Debby Reeves MD Work Phone: [facility] 02-14-2023 16:25-0400 Body weight 83.92 kg Debby Reeves MD Work Phone: [facility] 02-14-2023 16:25-0400 Respiratory rate 16 /min Debby Reeves MD Work Phone: [facility] 12-27-2022 13:13-0400 Body weight 83.46 kg Carmelita Millan MD Work Phone: [facility] 12-27-2022 13:13-0400 Diastolic blood pressure 68 mm[Hg] Carmelita Millan MD Work Phone: [facility] 12-27-2022 13:13-0400 Systolic blood pressure 110 mm[Hg] Carmelita Millan MD Work Phone: [facility] 11-23-2022 18:57-0400 Diastolic blood pressure 75 mm[Hg] [facility] 11-23-2022 18:57-0400 Heart rate 74 /min [facility] 11-23-2022 18:57-0400 Systolic blood pressure 131 mm[Hg] [facility] 11-23-2022 18:56-0400 Body temperature 97.6 [degF] [facility] 11-23-2022 18:56-0400 Respiratory rate 16 /min [facility] 11-23-2022 18:56-0400 SaO2% (BldA) [Mass fraction] 98 % [facility] 11-22-2022 07:15-0400 Body height 170 cm [facility] 11-22-2022 07:15-0400 Body mass index (BMI) [Ratio] 32.1 kg/m2 [facility] 11-22-2022 07:15-0400 Body weight 92.7 kg [facility] 11-15-2022 13:46-0400 Body height 167.[address] [facility] 11-15-2022 13:46-0400 Body weight 92.08 kg Elli Ramya ECHEVERRIA [facility] 11-15-2022 08:57-0400 Body weight 92.08 kg Chey Melgar APRN.CNM Work Phone: [facility] 11-15-2022 08:57-0400 Diastolic blood pressure 70 mm[Hg] Chey Melgar APRN.CNM Work Phone: [facility] 11-15-2022 08:57-0400 Systolic blood pressure 110 mm[Hg] Chey Melgar APRN.CNM Work Phone: [facility] 11-15-2022 00:45-0400 Body temperature 97.5 [degF] [facility] 11-15-2022 00:45-0400 Diastolic blood pressure 72 mm[Hg] [facility] 11-15-2022 00:45-0400 Heart rate 108 /min [facility] 11-15-2022 00:45-0400 SaO2% (BldA) [Mass fraction] 97 % [facility] 11-15-2022 00:45-0400 Systolic blood pressure 123 mm[Hg] [facility] 11-15-2022 00:27-0400 Body height 170.18 cm [facility] 11-15-2022 00:27-0400 Body mass index (BMI) [Ratio] 31.6 kg/m2 [facility] 11-15-2022 00:27-0400 Body weight 91.8 kg [facility] 11-06-2022 16:53-0400 Body temperature 98.2 [degF] Singh Carvalho MD Work Phone: [facility] 11-06-2022 16:53-0400 Body weight 91.63 kg Singh Carvalho MD Work Phone: [facility] 11-06-2022 16:53-0400 Diastolic blood pressure 78 mm[Hg] Singh Carvalho MD Work Phone: [facility] 11-06-2022 16:53-0400 Heart rate 117 /min Singh Carvalho MD Work Phone: [facility] 11-06-2022 16:53-0400 Respiratory rate 18 /min Singh Carvalho MD Work Phone: [facility] 11-06-2022 16:53-0400 SaO2% (BldA) [Mass fraction] 97 % Singh Carvalho MD Work Phone: [facility] 11-06-2022 16:53-0400 Systolic blood pressure 124 mm[Hg] Singh Carvalho MD Work Phone: [facility] 11-02-2022 08:40-0400 Body weight 92.08 kg Angela Browns SENIOR COMMUNICATIONS SPECIALIST.EDUCATION ADMINISTRATOR Work Phone: [facility] 11-02-2022 08:40-0400 Diastolic blood pressure 60 mm[Hg] Angela Eun SENIOR COMMUNICATIONS SPECIALIST.EDUCATION ADMINISTRATOR Work Phone: [facility] 11-02-2022 08:40-0400 Systolic blood pressure 108 mm[Hg] Angela Browns SENIOR COMMUNICATIONS SPECIALIST.EDUCATION ADMINISTRATOR Work Phone: [facility] 10-28-2022 20:55-0400 Body height 170.18 cm [facility] 10-28-2022 20:55-0400 Body mass index (BMI) [Ratio] 32.2 kg/m2 [facility] 10-28-2022 20:55-0400 Body weight 93.34 kg [facility] 10-28-2022 20:44-0400 Body temperature 98.2 [degF] [facility] 10-28-2022 20:44-0400 Diastolic blood pressure 64 mm[Hg] [facility] 10-28-2022 20:44-0400 Heart rate 99 /min [facility] 10-28-2022 20:44-0400 Systolic blood pressure 120 mm[Hg] [facility] 10-28-2022 20:43-0400 SaO2% (BldA) [Mass fraction] 98 % [facility] 10-18-2022 08:29-0400 Body weight 91.63 kg Carmelita Millan MD Work Phone: [facility] 10-18-2022 08:29-0400 Diastolic blood pressure 62 mm[Hg] Carmelita Millan MD Work Phone: [facility] 10-18-2022 08:29-0400 Systolic blood pressure 110 mm[Hg] Carmelita Millan MD Work Phone: [facility] 08-14-2022 02:08-0500 Diastolic blood pressure 81 mm[Hg] [facility] 08-14-2022 02:08-0500 Heart rate 84 /min [facility] 08-14-2022 02:08-0500 Respiratory rate 16 /min [facility] 08-14-2022 02:08-0500 SaO2% (BldA) [Mass fraction] 98 % [facility] 08-14-2022 02:08-0500 Systolic blood pressure 132 mm[Hg] [facility] 08-13-2022 18:49-0500 Body mass index (BMI) [Ratio] 29.4 kg/m2 [facility] 08-13-2022 18:49-0500 Body temperature 96.8 [degF] [facility] 08-13-2022 18:49-0500 Body weight 85.27 kg [facility] 08-13-2022 18:49-0500 Diastolic blood pressure 70 mm[Hg] [facility] 08-13-2022 18:49-0500 Heart rate 92 /min [facility] 08-13-2022 18:49-0500 Respiratory rate 18 /min [facility] 08-13-2022 18:49-0500 SaO2% (BldA) [Mass fraction] 99 % [facility] 08-13-2022 18:49-0500 Systolic blood pressure 115 mm[Hg] [facility] 08-09-2022 16:24-0500 Body temperature 97.5 [degF] Debby Reeves MD Work Phone: [facility] 08-09-2022 16:24-0500 Body weight 85.28 kg Debby Reeves MD Work Phone: [facility] 08-09-2022 16:24-0500 Diastolic blood pressure 76 mm[Hg] Debby Reeves MD Work Phone: [facility] 08-09-2022 16:24-0500 Heart rate 101 /min Debby Reeves MD Work Phone: [facility] 08-09-2022 16:24-0500 Respiratory rate 16 /min Debby Reeves MD Work Phone: [facility] 08-09-2022 16:24-0500 SaO2% (BldA) [Mass fraction] 98 % Debby Reeves MD Work Phone: [facility] 08-09-2022 16:24-0500 Systolic blood pressure 110 mm[Hg] Debby Reeves MD Work Phone: [facility] 08-09-2022 15:01-0500 Body weight 85.37 kg Sulma Plotts SENIOR COMMUNICATIONS SPECIALIST.CNM Work Phone: [facility] 08-09-2022 15:01-0500 Diastolic blood pressure 60 mm[Hg] Sulma Plotts SENIOR COMMUNICATIONS SPECIALIST.CNM Work Phone: [facility] 08-09-2022 15:01-0500 Systolic blood pressure 100 mm[Hg] Sulma Plotts SENIOR COMMUNICATIONS SPECIALIST.CNM Work Phone: [facility] 08-03-2022 15:07-0500 Body temperature 98.6 [degF] Wendy Rivera SENIOR COMMUNICATIONS SPECIALIST.EDUCATION ADMINISTRATOR Work Phone: [facility] 08-03-2022 15:07-0500 Body weight 86.91 kg Wendy Rivera SENIOR COMMUNICATIONS SPECIALIST.EDUCATION ADMINISTRATOR Work Phone: [facility] 08-03-2022 15:07-0500 Diastolic blood pressure 60 mm[Hg] Wendy Rivera SENIOR COMMUNICATIONS SPECIALIST.EDUCATION ADMINISTRATOR Work Phone: [facility] 08-03-2022 15:07-0500 Heart rate 109 /min Wendy Rivera SENIOR COMMUNICATIONS SPECIALIST.EDUCATION ADMINISTRATOR Work Phone: [facility] 08-03-2022 15:07-0500 Respiratory rate 16 /min Wendy Rivera SENIOR COMMUNICATIONS SPECIALIST.EDUCATION ADMINISTRATOR Work Phone: [facility] 08-03-2022 15:07-0500 SaO2% (BldA) [Mass fraction] 95 % Wendy Rivera SENIOR COMMUNICATIONS SPECIALIST.EDUCATION ADMINISTRATOR Work Phone: [facility] 08-03-2022 15:07-0500 Systolic blood pressure 110 mm[Hg] Wendy Rivera SENIOR COMMUNICATIONS SPECIALIST.EDUCATION ADMINISTRATOR Work Phone: [facility] 07-27-2022 14:59-0500 Body temperature 98.49 [degF] Chey Ladd SENIOR COMMUNICATIONS SPECIALIST.EDUCATION ADMINISTRATOR Work Phone: [facility] 07-27-2022 14:59-0500 Body weight 85.55 kg Chey Ladd SENIOR COMMUNICATIONS SPECIALIST.EDUCATION ADMINISTRATOR Work Phone: [facility] 07-27-2022 14:59-0500 Diastolic blood pressure 68 mm[Hg] Chey Ladd SENIOR COMMUNICATIONS SPECIALIST.EDUCATION ADMINISTRATOR Work Phone: [facility] 07-27-2022 14:59-0500 Heart rate 109 /min Chey Ladd SENIOR COMMUNICATIONS SPECIALIST.EDUCATION ADMINISTRATOR Work Phone: [facility] 07-27-2022 14:59-0500 Respiratory rate 18 /min Chey Ladd SENIOR COMMUNICATIONS SPECIALIST.EDUCATION ADMINISTRATOR Work Phone: [facility] 07-27-2022 14:59-0500 SaO2% (BldA) [Mass fraction] 97 % Chey Ladd SENIOR COMMUNICATIONS SPECIALIST.EDUCATION ADMINISTRATOR Work Phone: [facility] 07-27-2022 14:59-0500 Systolic blood pressure 116 mm[Hg] Chey Ladd SENIOR COMMUNICATIONS SPECIALIST.EDUCATION ADMINISTRATOR Work Phone: [facility] 07-06-2022 16:26-0500 Body weight 85.64 kg Sulma Bartholomew SENIOR COMMUNICATIONS SPECIALIST.CNM Work Phone: [facility] 07-06-2022 16:26-0500 Diastolic blood pressure 62 mm[Hg] Sulma Bartholomew SENIOR COMMUNICATIONS SPECIALIST.CNM Work Phone: [facility] 07-06-2022 16:26-0500 Systolic blood pressure 110 mm[Hg] Sulma Bartholomew SENIOR COMMUNICATIONS SPECIALIST.CNM Work Phone: [facility] 06-23-2022 17:24-0500 Body temperature 99.5 [degF] [facility] S[facility]IOR COMMUNICATIONS SPECIALIST.EDUCATION ADMINISTRATOR Work Phone: [facility] 06-23-2022 17:24-0500 Body weight 83.64 kg [facility] SENIOR COMMUNICATIONS SPECIALIST.EDUCATION ADMINISTRATOR Work Phone: [facility] 06-23-2022 17:24-0500 Diastolic blood pressure 78 mm[Hg] [facility] SENIOR COMMUNICATIONS SPECIALIST.EDUCATION ADMINISTRATOR Work Phone: [facility] 06-23-2022 17:24-0500 Heart rate 112 /min [facility] SENIOR COMMUNICATIONS SPECIALIST.EDUCATION ADMINISTRATOR Work Phone: [facility] 06-23-2022 17:24-0500 Respiratory rate 18 /min [facility] SENIOR COMMUNICATIONS SPECIALIST.EDUCATION ADMINISTRATOR Work Phone: [facility] 06-23-2022 17:24-0500 SaO2% (BldA) [Mass fraction] 99 % [facility] SENIOR COMMUNICATIONS SPECIALIST.EDUCATION ADMINISTRATOR Work Phone: [facility] 06-23-2022 17:24-0500 Systolic blood pressure 106 mm[Hg] [facility] SENIOR COMMUNICATIONS SPECIALIST.EDUCATION ADMINISTRATOR Work Phone: [facility] 05-23-2022 18:55-0400 Body weight 84.19 kg Debby Reeves MD Work Phone: [facility] 05-23-2022 18:55-0400 Diastolic blood pressure 68 mm[Hg] Debby Reeves MD Work Phone: [facility] 05-23-2022 18:55-0400 Heart rate 100 /min Debby Reeves MD Work Phone: [facility] 05-23-2022 18:55-0400 Respiratory rate 16 /min Debby Reeves MD Work Phone: [facility] 05-23-2022 18:55-0400 SaO2% (BldA) [Mass fraction] 96 % Debby Reeves MD Work Phone: [facility] 05-23-2022 18:55-0400 Systolic blood pressure 104 mm[Hg] Debby Reeves MD Work Phone: [facility] 05-23-2022 15:16-0400 Body temperature 98.4 [degF] Vale Briones MD Work Phone: [facility] 05-23-2022 15:16-0400 Body weight 84.46 kg Vale Briones MD Work Phone: [facility] 05-23-2022 15:16-0400 Diastolic blood pressure 58 mm[Hg] Vale Briones MD Work Phone: [facility] 05-23-2022 15:16-0400 Systolic blood pressure 112 mm[Hg] Vale Briones MD Work Phone: [facility] 05-02-2022 18:49-0400 Body height 170.18 cm [facility] Work Phone: 05-02-2022 18:49-0400 Body mass index (BMI) [Ratio] 29.3 kg/m2 [facility] Work Phone: 05-02-2022 18:49-0400 Body temperature 97 [degF] [facility] Work Phone: 05-02-2022 18:49-0400 Body weight 85 kg [facility] Work Phone: 05-02-2022 18:49-0400 Diastolic blood pressure 75 mm[Hg] [facility] Work Phone: 05-02-2022 18:49-0400 Heart rate 100 /min [facility] Work Phone: 05-02-2022 18:49-0400 Respiratory rate 16 /min [facility] Work Phone: 05-02-2022 18:49-0400 SaO2% (BldA) [Mass fraction] 97 % [facility] Work Phone: 05-02-2022 18:49-0400 Systolic blood pressure 119 mm[Hg] [facility] Work Phone: 04-06-2022 09:28-0400 Body weight 85.28 kg Vale Briones MD Work Phone: [facility] 04-06-2022 09:28-0400 Diastolic blood pressure 56 mm[Hg] Vale Briones MD Work Phone: [facility] 04-06-2022 09:28-0400 Systolic blood pressure 98 mm[Hg] Vale Briones MD Work Phone: [facility] 04-03-2022 14:33-0400 Body temperature 98.24 [degF] GIL LEE MD [facility] 04-03-2022 14:33-0400 Body weight 84 kg GIL LEE MD [facility] 04-03-2022 14:33-0400 Diastolic blood pressure 81 mm[Hg] GIL LEE MD [facility] 04-03-2022 14:33-0400 Heart rate 80 /min GIL LEE MD [facility] 04-03-2022 14:33-0400 Respiratory rate 16 /min GIL LEE MD [facility] 04-03-2022 14:33-0400 Systolic blood pressure 124 mm[Hg] GIL LEE MD [facility] 03-21-2022 17:54-0400 Body height 167.2 cm Debby Reeves MD Work Phone: [facility] 03-21-2022 17:54-0400 Body weight 83.46 kg Debby Reeves MD Work Phone: [facility] 03-21-2022 17:54-0400 Diastolic blood pressure 60 mm[Hg] Debby Reeves MD Work Phone: [facility] 03-21-2022 17:54-0400 Heart rate 106 /min Debby Reeves MD Work Phone: [facility] 03-21-2022 17:54-0400 Respiratory rate 16 /min Debby Reeves MD Work Phone: [facility] 03-21-2022 17:54-0400 SaO2% (BldA) [Mass fraction] 98 % Debby Reeves MD Work Phone: [facility] 03-21-2022 17:54-0400 Systolic blood pressure 100 mm[Hg] Debby Reeves MD Work Phone: [facility] 01-19-2022 13:50-0400 Body weight 84.82 kg Sulma Plotts SENIOR COMMUNICATIONS SPECIALIST.CNM Work Phone: [facility] 01-19-2022 13:50-0400 Diastolic blood pressure 60 mm[Hg] Sulma Plotts SENIOR COMMUNICATIONS SPECIALIST.CNM Work Phone: [facility] 01-19-2022 13:50-0400 Systolic blood pressure 122 mm[Hg] Sulma Plotts SENIOR COMMUNICATIONS SPECIALIST.CNM Work Phone: [facility] 12-28-2021 16:01-0400 Body height 167.6 cm Sulma Plotts SENIOR COMMUNICATIONS SPECIALIST.CNM Work Phone: [facility] 12-28-2021 16:01-0400 Body weight 82.64 kg Sulma Plotts SENIOR COMMUNICATIONS SPECIALIST.CNM Work Phone: [facility] 12-28-2021 16:01-0400 Diastolic blood pressure 60 mm[Hg] Sulma Plotts SENIOR COMMUNICATIONS SPECIALIST.CNM Work Phone: [facility] 12-28-2021 16:01-0400 Systolic blood pressure 100 mm[Hg] Sulma Plotts SENIOR COMMUNICATIONS SPECIALIST.CNM Work Phone: [facility] 12-23-2021 13:18-0400 Body temperature 98.4 [degF] [facility] SENIOR COMMUNICATIONS SPECIALIST.EDUCATION ADMINISTRATOR Work Phone: [facility] 12-23-2021 13:18-0400 Body weight 83.73 kg [facility] SENIOR COMMUNICATIONS SPECIALIST.EDUCATION ADMINISTRATOR Work Phone: [facility] 12-23-2021 13:18-0400 Diastolic blood pressure 62 mm[Hg] [facility] SENIOR COMMUNICATIONS SPECIALIST.EDUCATION ADMINISTRATOR Work Phone: [facility] 12-23-2021 13:18-0400 Heart rate 108 /min [facility] SENIOR COMMUNICATIONS SPECIALIST.EDUCATION ADMINISTRATOR Work Phone: [facility] 12-23-2021 13:18-0400 Respiratory rate 16 /min Wai [facility] SENIOR COMMUNICATIONS SPECIALIST.EDUCATION ADMINISTRATOR Work Phone: [facility] 12-23-2021 13:18-0400 SaO2% (BldA) [Mass fraction] 98 % Wai [facility] SENIOR COMMUNICATIONS SPECIALIST.EDUCATION ADMINISTRATOR Work Phone: [facility] 12-23-2021 13:18-0400 Systolic blood pressure 108 mm[Hg] Wai [facility] SENIOR COMMUNICATIONS SPECIALIST.EDUCATION ADMINISTRATOR Work Phone: [facility] 12-17-2020 19:26-0400 Diastolic blood pressure 60 mm[Hg] Dev Flannery Counts include 234 beds at the [facility] 12-17-2020 19:26-0400 Heart rate 84 /min Dev Flannery Counts include 234 beds at the [facility] 12-17-2020 19:26-0400 Respiratory rate 18 /min Dev Flannery Counts include 234 beds at the [facility] 12-17-2020 19:26-0400 SaO2% (BldA) [Mass fraction] 100 % Dev Flannery Counts include 234 beds at the [facility] 12-17-2020 19:26-0400 Systolic blood pressure 110 mm[Hg] Dev Flannery Counts include 234 beds at the [facility] 12-17-2020 16:38-0400 Body height 170.1 cm Dev Flannery Counts include 234 beds at the [facility] 12-17-2020 16:38-0400 Body temperature 97.34 [degF] Dev Flannery [facility] 12-17-2020 16:38-2670 Body weight 83 kg Dev Flannery Counts include 234 beds at the [facility] Encounters Encounter Date Encounter Type Care Provider Facility Start: 05-09-2025 End: 05-09-2025 Emergency department patient visit Maigarrett Wang Facility:[facility] Start: 05-08-2025 End: 05-08-2025 ambulatory KEATON R PERDINA Facility:[facility] Start: 05-08-2025 End: 05-08-2025 ambulatory KEATON R PERALA Facility:[facility] Start: 04-24-2025 End: 04-24-2025 ambulatory No Primary Care Physician Facility:[facility] Start: 04-23-2025 End: 04-23-2025 ambulatory CARMELITA MILLAN Facility:[facility] Start: 04-21-2025 End: 04-21-2025 Emergency department patient visit Thanh Marrero DO Work Phone: [facility] Comment on above: Palpitations (Primar y Dx) Start: 03-27-2025 End: 03-27-2025 ambulatory No Primary Care Physician Facility:[facility] Start: 03-26-2025 End: 03-26-2025 ambulatory KEATON R DEMARCUS Facility:[facility] Start: 03-26-2025 End: 03-26-2025 Patient encounter procedure Carmelita Millan MD Work Phone: OB/Gynecology Comment on above: Anxiety neurosis (Pr imary Dx); Attention deficit hyperactivity disorder (ADHD), combined type; Unplanned (HCC) Start: 03-11-2025 End: 03-19-2025 Telephone encounter Aliyah Askew MD Work Phone: OB/Gynecology Comment on above: Start: 03-06-2025 End: 03-06-2025 Patient encounter procedure Us Tech 1 Wstr [facility] OB/Gynecology Start: 03-06-2025 End: 03-06-2025 ambulatory Pool Hand Wstr Mob Us Remote Work Phone: OB/Gynecology Start: 03-03-2025 End: 03-03-2025 ambulatory KEATON R PERALA Facility:[facility] Start: 02-27-2025 End: 02-27-2025 ambulatory KEATON TRACY Facility:[facility] Start: 02-27-2025 End: 02-27-2025 ambulatory KEATON TRACY Facility:[facility] Start: 02-13-2025 End: 02-13-2025 [facility] Keaton Tracy MD Work Phone: Family [...] End: 02-11-2025 Manual pelvic examination Nurse Triage Sheyla Work Phone: Nurse Phone Triage Comment on above: Pelvic Pain Start: 02-10-2025 End: 02-11-2025 Emergency department patient visit Rosanna Ruiz DO Work Phone: [facility] Comment on above: Lower abdominal pain (Primary Dx) Start: 02-09-2025 End: 02-12-2025 Telephone encounter Carmelita Millan MD Work Phone: [address] [place] [address] Comment on above: Orders; Abdominal Pa in Start: 02-02-2025 End: 04-04-2025 Follow-up encounter Carmelita Millan MD Work Phone: OB/Gynecology Start: 01-29-2025 End: 01-29-2025 Patient encounter procedure Us Tech 1 [facility] OB/Gynecology Start: 01-29-2025 End: 01-29-2025 ambulatory Pool Hand Wstr Mob Us Remote Work Phone: OB/Gynecology Start: 01-29-2025 End: 01-29-2025 Patient encounter procedure Carmelita Millan MD Work Phone: OB/Gynecology Comment on above: Pelvic pain in femal e (Primary Dx); Dysmenorrhea; Irregular menstruation; Encounter for surveillance of vaginal ring hormonal contraceptive device Start: 01-29-2025 End: 01-29-2025 ambulatory KEATON TRACY Facility:[facility] Start: 01-27-2025 End: 01-27-2025 Telephone encounter Carmelita [...] End: 01-01-2025 ambulatory No Primary Care Physician Facility:[facility] Start: 12-29-2024 End: 12-29-2024 Telephone encounter Angela Haq APRN.CNP Work Phone: OB/Gynecology Comment on above: Patient Update Start: 12-10-2024 End: 12-10-2024 ambulatory KEATON TRACY Facility:[facility] Start: 11-28-2024 ambulatory No Primary Car e Physician Facility:[facility] Start: 11-28-2024 End: 12-03-2024 [facility] Aliyah Carter APRN.EDUCATION ADMINISTRATOR Work Phone: Family Medicine Comment on above: [...] Question Start: 11-19-2024 End: 11-20-2024 ambulatory Keaton Tarcy MD Work Phone: Family Medicine Comment on above: Back issues Start: 11-18-2024 End: 11-19-2024 Emergency department patient visit Honorio Fisher DO Work Phone: [facility] Comment on above: Lumbar contusion, in itial encounter (Primary Dx) Start: 11-10-2024 End: 11-11-2024 Emergency department patient visit No Primary Care Physician Facility:[facility] Start: 11-05-2024 End: 11-06-2024 ambulatory Keaton Tracy MD Work Phone: Family Medicine Comment on above: Zofran Start: 11-04-2024 ambulatory No Primary Car e Physician Facility:[facility] Start: 10-17-2024 End: 10-17-2024 ambulatory No Primary Care Physician Facility:[facility] Start: 2024 End: 10-14-2024 Refill Keaton Tracy MD Work Phone: Family Medicine Comment on above: Refill Request Start: 10-10-2024 End: 10-10-2024 ambulatory No Primary Care Physician Facility:[facility] Start: 10-09-2024 End: 10-13-2024 Refill Keaton Tracy MD Work Phone: Family Medicine Comment on above: Refill Request Start: 10-05-2024 End: 10-05-2024 Emergency department patient visit No Primary Care Physician Facility:[facility] Start: 10-05-2024 End: 10-06-2024 ambulatory Idania Loco RN NURSE [employer] Comment on above: Allergic Reaction Start: 09-26-2024 [...] 09-05-2024 Emergency department patient visit KEATON TRACY [facility] Comment on above: Other migraine with status migrainosus, intractable (Primary Dx) Start: 08-18-2024 End: 08-20-2024 Refill Keaton Tracy MD Work Phone: Family Medicine Comment on above: Refill Request Start: 08-13-2024 End: 08-13-2024 ambulatory No Primary Care Physician Facility:[facility] Start: 08-08-2024 End: 08-08-2024 ambulatory Keaton Tracy MD Work Phone: Family Medicine Comment on above: Procedure, test, or exam not indicated (Primary Dx) Start: 08-08-2024 End: 08-08-2024 Telemedicine consultation with patient Keaton Tracy MD Work Phone: Family Medicine Start: 08-06-2024 End: 08-06-2024 Emergency department patient visit No Primary Care Physician Facility:[facility] Start: 08-06-2024 ambulatory KEATON TRACY Facilit y:[facility] Start: 07-28-2024 End: 07-29-2024 Get Medical Advice Keaton Tracy MD Work Phone: Family Medicine Comment on above: Medication refill Start: 07-21-2024 End: 07-21-2024 Refill Keaton Tracy MD Work Phone: Family Medicine Comment on above: Refill Request Start: 07-08-2024 End: 07-08-2024 ambulatory No Primary Care Physician Facility:[facility] Start: 07-07-2024 End: 07-07-2024 Emergency department patient visit Jamal Chandan Facility:[facility] Start: 07-02-2024 ambulatory No Primary Car e Physician Facility:[facility] Start: 06-24-2024 End: 06-24-2024 ambulatory KEATON TRACY Facility:[facility] Start: 06-24-2024 End: 06-24-2024 Patient encounter procedure Carmelita Millan MD Work Phone: OB/Gynecology Comment on above: Atypical glandular c ells of undetermined significance (ZENA) on cervical Pap smear (Primary Dx) Start: 06-19-2024 End: 06-22-2024 Refill Keaton Tracy MD Work Phone: Family Medicine Comment on above: Refill Request Start: 05-27-2024 End: 05-27-2024 ambulatory KEATON TRACY Facility:[facility] Start: 05-27-2024 End: 05-27-2024 Office outpatient visit 25 minutes Jil Bailey APRN.EDUCATION ADMINISTRATOR Work Phone: [facility] Comment on above: Sore throat (Primary Dx); Viral upper respiratory tract infection with cough Start: 05-26-2024 End: 05-27-2024 Telephone encounter Angela Haq APRN.EDUCATION ADMINISTRATOR Work Phone: OB/Gynecology Comment on above: Results Start: 05-25-2024 End: 05-26-2024 Refill Keaton Tracy MD Work Phone: Family Medicine Comment on above: Refill Request Start: 05-22-2024 End: 05-22-2024 ambulatory No Primary Care Physician Facility:[facility] Start: 05-21-2024 End: 05-22-2024 ambulatory Keaton Tracy MD Work Phone: [facility] Comment on above: Ozempic Start: 05-19-2024 End: 05-19-2024 ambulatory No Pcp SENIOR COMMUNICATIONS SPECIALIST [facility] Start: 05-19-2024 End: 05-19-2024 Patient encounter procedure No Pcp SENIOR COMMUNICATIONS SPECIALIST [facility] Comment on above: Encounter for IUD re moval (Primary Dx); Screening for malignant neoplasm of cervix; Encounter for screening for human papillomavirus (HPV) Start: 05-16-2024 End: 05-16-2024 [facility] Keaton Tracy MD Work Phone: Family [...] in adult; Screening for cervical cancer Start: 04-21-2024 End: 04-29-2024 ambulatory Keaton Tracy MD Work Phone: Family Medicine Comment on above: TiZanidine Start: 04-16-2024 End: 04-16-2024 Emergency department patient visit UNKNOWN PROVIDER [facility] Comment on above: Dental (Pt expressin g recurrent abscess on R mandible. Pt has been on multiple abx, tylenol, toradol. Pt was seen at OSH earlier today, had CT scan, steroid injection and attempted lancing x 5 without drainage. Pt with ongoing pain and swelling. ) Start: 04-15-2024 End: 04-15-2024 Emergency department patient visit Keaton Tracy MD Work Phone: [facility] Comment on above: Dental abscess (Prim sowmya Dx) Start: 04-15-2024 End: 04-15-2024 ambulatory Koki Wheatley PA-C Work Phone: Family Medicine Comment on above: Pain, dental (Primar y Dx); Dental infection Start: 04-15-2024 End: 04-15-2024 Telemedicine consultation with patient Koki Wheatley PA-C Work Phone: Family Medicine Start: 04-10-2024 End: 04-10-2024 Emergency department patient visit ROB HARDWICK [facility] Start: 04-10-2024 End: 04-10-2024 Patient encounter procedure Venkata Chakraborty SENIOR COMMUNICATIONS SPECIALIST.EDUCATION ADMINISTRATOR [facility] Phone: [facility] Comment on above: Right lower quadrant abdominal pain (Primary Dx) Start: 04-01-2024 End: 04-01-2024 Telemedicine consultation with patient Rylan Nicholas OCTAVIO.EDUCATION ADMINISTRATOR Work Phone: Telemedicine Comment on above: Chronic midline low back pain without sciatica (Primary Dx) Start: 03-28-2024 End: 03-28-2024 Emergency department patient visit KEATON TRACY Facility:[facility] Start: 03-28-2024 Encounter for richard l adult medical examination without abnormal findings KEATON [facility] Start: 03-27-2024 End: 03-27-2024 ambulatory Phyllis Serra BOBBY Work Phone: Family [facility] Comment on above: Abnormal EKG (Primar y Dx); Pain, dental Start: 03-27-2024 End: 03-27-2024 Telemedicine consultation with patient Phyllis Luongdelaney ROSALES Work Phone: Family Medicine Start: 03-24-2024 End: 03-24-2024 Emergency department patient visit VERO HEATH MD [facility] Start: 03-17-2024 End: 03-18-2024 ambulatory Ros Nelson RN NURSE [employer] Comment on above: Chest Pain Start: 03-17-2024 End: 03-18-2024 Follow-up encounter Carmelita Millan MD Work Phone: OB/Gynecology Comment on above: Follow up after hosp italization Start: 03-16-2024 End: 03-16-2024 ambulatory Radha Browning RN NURSE [employer] Comment on above: Opened In Error Start: 03-14-2024 End: 03-16-2024 ambulatory JUAN ELLIS MD Facility:[facility] Start: 03-14-2024 End: 03-16-2024 Observation JUAN ELLIS MD [facility] Start: 03-14-2024 End: 03-14-2024 Emergency department patient visit DR TORI ANTOINE DO [facility] Start: 02-09-2024 End: 02-09-2024 Emergency department patient visit DEBBY HALE Facility:[facility] Start: 12-07-2023 End: 12-07-2023 [facility] Keaton Tracy MD Work Phone: Family [...] Work Phone: Endocrinology Start: 11-22-2023 End: 11-22-2023 [facility] Keaton Tracy MD Work Phone: Family Medicine Comment on above: ADHD (attention defi cit hyperactivity disorder), inattentive type (Primary Dx); Panic disorder; Migraine with aura, not intractable, without status migrainosus; History of hepatitis C; Anxiety with depression; DDD (degenerative disc disease), lumbar; History of abnormal cervical Pap smear Start: 11-20-2023 End: 11-20-2023 Subsequent hospital visit by physician Juan Vaughan [facility] Comment on above: Arrived Start: 11-20-2023 End: 11-20-2023 Emergency department patient visit Matt Morgan DO Work Phone: [facility] Comment on above: Anxiety reaction (Pr imary Dx) Start: 11-19-2023 End: 11-19-2023 Patient encounter procedure Stephy Briones SENIOR COMMUNICATIONS SPECIALIST.EDUCATION ADMINISTRATOR Work Phone: [facility] Comment on above: Migraine with aura, not intractable, without status migrainosus (Primary Dx) Start: 11-15-2023 End: 11-15-2023 Patient encounter procedure Chey Ladd SENIOR COMMUNICATIONS SPECIALIST.EDUCATION ADMINISTRATOR Work Phone: [facility] Comment on above: Migraine headaches ( Primary Dx) Start: 11-06-2023 End: 11-06-2023 Subsequent hospital visit by physician Dev Narayan MD Work Phone: [facility] Comment on above: Kidney stone (Primar y Dx) Start: 10-22-2023 ambulatory Keaton bose MD Work Phone: Family [facility] Comment on above: Medication renewal Start: 10-12-2023 End: 10-12-2023 ambulatory Debby Taveras APRN.EDUCATION ADMINISTRATOR Work Phone: Telemedicine Comment on above: Motion sickness, ini tial encounter (Primary Dx) Start: 10-12-2023 End: 10-12-2023 Telemedicine consultation with patient Debby Taveras APRN.EDUCATION ADMINISTRATOR Work Phone: [facility] Start: 10-09-2023 Orders Only Lashon Saba PA-C Work Phone: Neurology Comment on above: Migraine with aura a nd without status migrainosus, not intractable (Primary Dx) Start: 10-08-2023 ambulatory Keaton bose MD Work Phone: [facility] Comment on above: FMLA Start: 10-05-2023 End: 10-05-2023 Subsequent hospital visit by physician [facility] (I-Stat/1.5t) Work Phone: Radiology Comment on above: Migraine with aura a nd without status migrainosus, not intractable [G43.109] Start: 10-04-2023 End: 10-04-2023 Subsequent hospital visit by physician [facility] [employer] [facility] (I-Stat/1.5t) Work Phone: Radiology Comment on above: 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] Start: 10-01-2023 End: 10-01-2023 Patient encounter procedure Damaso Samuels MD Work Phone: Neurology Comment on above: Migraine with aura a nd without status migrainosus, not intractable (Primary Dx); Cramping of hands; Facial paralysis; Near syncope; Adrenal nodule (HCC) Start: 10-01-2023 End: 10-01-2023 ambulatory DEV Roberson NARAYAN [facility] Comment on above: FMLA and [place] [employer] Start: 10-01-2023 End: 10-01-2023 Office outpatient visit 25 minutes Dev Narayan MD Work Phone: [facility] Comment on above: Flank pain; Kidney stones Start: 09-28-2023 End: 09-28-2023 [facility] Keaton Tracy MD Work Phone: Family [...] Pap smear Start: 09-24-2023 End: 09-24-2023 ambulatory [facility] Start: 09-24-2023 End: 09-24-2023 Subsequent hospital visit by physician Juan Espitia145 X-Ray [facility] Comment on above: Kidney stones Start: 09-24-2023 End: 09-24-2023 Office outpatient new 30 minutes Dev Narayan MD Work Phone: [facility] Comment on above: Flank pain; Kidney stones Start: 09-21-2023 Telephone encounter Keaton willis MD Work Phone: Family Medicine Comment on above: Forms Start: 09-21-2023 End: 09-21-2023 Patient encounter procedure Aliyah Carter APRN.EDUCATION ADMINISTRATOR Work Phone: Family Medicine Comment on above: ADHD (attention defi cit hyperactivity disorder), inattentive type (Primary Dx); Panic disorder; Facial paralysis; Cramping of hands; Near syncope Start: 09-14-2023 Refill Keaton bose MD Work Phone: Family Medicine Comment on above: Refill Request Start: 09-13-2023 Telephone encounter Damaso Jang MD Work Phone: Pulmonology [facility] Comment on above: Results Start: 09-04-2023 Refill Bibi Podlogar SENIOR COMMUNICATIONS SPECIALIST.EDUCATION ADMINISTRATOR Work Phone: [facility] Comment on above: Refill Request Start: 09-03-2023 End: 09-03-2023 Patient encounter procedure Bibi Saxena APRN.EDUCATION ADMINISTRATOR Work Phone: [facility] [place] Comment on above: Routine physical exa mination (Primary Dx); Encounter for immunization; Migraine with aura, not intractable, without status migrainosus; Panic disorder; Disorder of adrenal gland (HCC); ADHD (attention deficit hyperactivity disorder), inattentive type Start: 09-03-2023 End: 09-03-2023 Physical examination Bibi Saxena APRN.EDUCATION ADMINISTRATOR Work Phone: [facility] Work Phone: Start: 08-31-2023 End: 08-31-2023 [facility] Damaso Jang MD Work Phone: Family Medicine [place] Comment on above: Disorder of adrenal gland (HCC) (Primary Dx); Adrenal mass 1 cm to 4 cm in diameter (HCC) Start: 08-26-2023 End: 08-26-2023 Emergency department patient visit No Generic Provider [facility] Comment on above: Urinary tract infect ion without hematuria, site unspecified (Primary Dx); Flank pain; Adrenal adenoma, unspecified laterality; Renal calculi Start: 07-05-2023 Refill Debby Reeves MD Work Phone: Family [facility] [place] Comment on above: Refill Request Start: 07-04-2023 Telephone encounter Rivas [facility] Comment on above: Consult (Patient Out reach [facility]) Start: 07-03-2023 End: 07-03-2023 [facility] Keaton Tracy MD Work Phone: Family [...] encounter procedure Debby Reeves MD Work Phone: [facility] Comment on above: Chest pain, unspecif [...] Telephone encounter Joe Reeves MD Work Phone: [facility] Comment on above: Appointment Start: 06-04-2023 End: 06-04-2023 Emergency department patient visit Dr. [facility] Start: 06-04-2023 End: 06-04-2023 ambulatory Debby Reeves MD Work Phone: [facility] Comment on above: Chest pain, unspecif ied type (Primary Dx); Numbness and tingling of right side of face Start: 06-04-2023 End: 06-04-2023 Telemedicine consultation with patient Debby Reeves MD Work Phone: [facility] Start: 06-03-2023 End: 06-03-2023 Emergency department patient visit Physician Facility:[facility] Start: 06-03-2023 End: 06-03-2023 Emergency department patient visit [facility] Work Phone: Start: 05-30-2023 Telephone encounter Carmelita Millan MD Work Phone: OB/Gynecology Comment on above: Appointment Start: 05-30-2023 End: 05-30-2023 ambulatory Lashon M Saba BOBBY Work Phone: Neurology Comment on above: Migraine with aura a nd without status migrainosus, not intractable (Primary Dx); FTND (full term normal delivery) Start: 05-30-2023 End: 05-30-2023 Telemedicine consultation with patient Lashon KAYEJennifer Work Phone: [facility] Start: 05-29-2023 Refill Debby Reeves MD Work Phone: [facility] Comment on above: Refill Request Headache Start: 05-14-2023 ambulatory Carmelita head MD Work Phone: OB/Gynecology Comment on above: 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 Joe Reeves Work Phone: [facility] Start: 05-11-2023 End: 05-11-[address] 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 Joe Reeves Work Phone: [facility] Work Phone: Start: 04-16-2023 End: 04-16-[address] Joe Reeves Work Phone: [facility] Work Phone: Start: 04-04-2023 Refill Debby Reeves MD Work Phone: Family [facility] Comment on above: Refill Request Start: 03-21-2023 Telephone encounter Carmelita Millan MD Work Phone: OB/Gynecology Comment on above: Surgery Cancelled Start: 03-21-2023 End: 03-21-2023 ambulatory Debby Reeves MD Work Phone: [facility] Comment on above: COVID-19 virus infec tion (Primary Dx) Start: 03-21-2023 End: 03-21-2023 Telemedicine consultation with patient Debby Reeves MD Work Phone: [facility] Start: 03-15-2023 Telephone encounter Richele Sm art SENIOR COMMUNICATIONS SPECIALIST.EDUCATION ADMINISTRATOR Work Phone: [facility] Comment on above: Appointment Start: 03-15-2023 End: 03-15-2023 ambulatory Richele Smart SENIOR COMMUNICATIONS SPECIALIST.EDUCATION ADMINISTRATOR Work Phone: [facility] Comment on above: Disturbance of skin sensation (Primary Dx); Myofascial pain; Chronic bilateral low back pain without sciatica Start: 03-15-2023 End: 03-15-2023 Telemedicine consultation with patient Richele Smart SENIOR COMMUNICATIONS SPECIALIST.EDUCATION ADMINISTRATOR Work Phone: [facility] Start: 03-14-2023 End: 03-14-2023 Patient encounter procedure Carmelita Millan MD Work Phone: OB/Gynecology Comment on above: General counseling a nd advice for contraceptive management (Primary Dx); High grade squamous intraepithelial lesion (HGSIL), grade 3 MANUEL, on biopsy of cervix Start: 03-13-2023 End: 03-13-2023 Patient encounter procedure Debby Reeves MD Work Phone: Family [facility] [place] Comment on above: Flank pain (Primary Dx); Lower abdominal pain Start: 03-09-2023 Telephone encounter Joe Reeves MD Work Phone: [facility] [place] Comment on above: Patient Update Start: 03-08-2023 End: 03-08-[address] Joe Reeves Work Phone: [facility] Work Phone: Start: 03-07-2023 ambulatory [facility] Provider Psychology Comment on above: behavioral health re sources Start: 03-07-2023 E-mail encounter joel villar caregiver [facility] Provider [facility] Start: 03-07-2023 Telephone encounter Aliyah johnston [facility] Work Phone: Psychology Comment on above: bh consult Start: 03-03-2023 End: 03-03-2023 Patient encounter procedure Damaso Jang MD Work Phone: Family Medicine [place] Comment on above: Migraine with aura, not intractable, without status migrainosus (Primary Dx); DDD (degenerative disc disease), lumbar Start: 02-19-2023 E-mail encounter joel villar caregiver [facility] Provider [facility] Start: 02-19-2023 Patient encounter procedure [facility] Provider Family Medicine [place] Comment on above: Appointment Start: 02-19-2023 Telephone encounter Joe Reeves MD Work Phone: [facility] [place] Comment on above: Results Refill Start: 02-17-2023 ambulatory Alem Tang RN N[employer]SE [employer] Comment on above: Information Start: 02-16-2023 End: 02-16-2023 Emergency department patient [facility] Start: 02-14-2023 End: 02-14-2023 Patient encounter procedure Debby Reeves MD Work Phone: Family Medicine [place] Comment on above: ADHD (attention defi cit hyperactivity disorder), inattentive type (Primary Dx); Controlled substance agreement signed; Encounter for test, result unknown ADHD (attention defi cit hyperactivity disorder), inattentive type; Controlled substance agreement signed; Encounter for test, result unknown Start: 01-31-2023 End: 01-31-[address] [facility] Ambulatory Start: 01-24-2023 End: 01-24-2023 Telemedicine consultation with patient Kylee Gil APRN.EDUCATION ADMINISTRATOR Work Phone: [facility] Start: 01-24-2023 Admission to [facility] Provider OB/Gynecology Comment on above: surgery confirmation Start: 01-24-2023 End: 01-24-2023 ambulatory Kylee Ortizroscoe [place].EDUCATION ADMINISTRATOR Work Phone: OB/Gynecology Comment on above: General counseling a nd advice for contraceptive management (Primary Dx); Encounter for prescription for nuvaring Virtual visit Start: 01-24-2023 E-mail encounter joel m caregiver [facility] Provider [facility] Start: 01-24-2023 Telephone encounter Carmelita Millan [...] encounter procedure Dr. Joe Reeves Work Phone: [facility] Work Phone: Start: 11-28-2022 End: 11-28-[address] Joe Reeves Work Phone: [facility] Work Phone: Start: 11-26-2022 End: 11-26-[address] Joe Reeves Work Phone: [facility] Work Phone: Start: 11-23-2022 ambulatory Carmelita head MD Work Phone: OB/Gynecology Comment on above: Ob Delivery Note Start: 11-22-2022 End: 11-23-2022 Evaluation and management of inpatient [facility] [place] Start: 11-17-2022 ambulatory Chey Melgar APRN.CNM Work Phone: OB/Gynecology Start: 11-17-2022 E-mail encounter fro m caregiver Chey Melgar APRN.CNM Work Phone: [facility] Start: 11-15-2022 End: 11-15-2022 ambulatory Andrew Rogers RN Work Phone: Endocrinology Comment on above: Diet controlled gest ational diabetes mellitus (GDM) in second trimester (Primary Dx) Dietary counseling ( Primary Dx); Diet controlled gestational diabetes mellitus (GDM), antepartum Start: 11-15-2022 End: 11-15-2022 Telemedicine consultation with patient Andrew Rogers RN Work Phone: [facility] [place] Start: 11-15-2022 End: 11-15-2022 Patient encounter procedure Chey Melgar APRN.CNM Work Phone: OB/Gynecology Comment on above: 38 weeks gestation o f (Primary Dx) Start: 11-15-2022 End: 11-15-2022 ambulatory [facility] Work Phone: Start: 11-15-2022 End: 11-15-2022 Patient encounter procedure [facility] Outpatients Start: 11-08-2022 Refill Sulma Chino s SENIOR COMMUNICATIONS SPECIALIST.CNM Work Phone: OB/Gynecology Comment on above: Results Orders Start: 11-06-2022 End: 11-06-2022 Orders Only Sulma Mercadoalonzo SENIOR COMMUNICATIONS SPECIALIST.CNM Work Phone: OB/Gynecology Comment on above: Anemia during pregna ncy in second trimester (Primary Dx); Elevated glucose Acute cough (Primary Dx); Wheezing Start: 11-02-2022 ambulatory Carmelita head MD Work Phone: OB/Gynecology Comment on above: FMLA Start: 11-02-2022 E-mail encounter fro m caregiver Carmelita Millan MD Work Phone: [facility] Start: 11-02-2022 End: 11-02-2022 Patient encounter procedure Angela Haq SENIOR COMMUNICATIONS SPECIALIST.EDUCATION ADMINISTRATOR Work Phone: OB/Gynecology Comment on above: 36 weeks gestation o f (Primary Dx); Abnormal glucose complicating Size of fetus incons istent with dates in third trimester (Primary Dx); Limited care in third trimester; Supervision of other high risk pregnancies, third trimester; 36 weeks gestation of Start: 10-28-2022 End: 10-28-2022 ambulatory [facility] Work Phone: Start: 10-28-2022 End: 10-28-2022 Patient encounter procedure [facility] Outpatients Start: 10-18-2022 End: 10-18-2022 Patient encounter procedure Carmelita Millan MD Work Phone: OB/Gynecology Comment on above: 34 weeks gestation o f (Primary Dx); Limited care in third trimester; Supervision of other high risk pregnancies, third trimester; Size of fetus inconsistent with dates in third trimester; Need for Tdap vaccination Start: 09-09-2022 Refill Debby Reeves MD Work Phone: Family Medicine [place] Comment on above: Refill Request Start: 08-29-2022 End: 08-29-2022 [facility] Bibi Odessa SENIOR COMMUNICATIONS SPECIALIST.EDUCATION ADMINISTRATOR Work Phone: [facility] Comment on above: Panic disorder (Prim sowmya Dx); Nicotine withdrawal Orders Start: 08-14-2022 Patient encounter procedure Dani Morgan DO Work Phone: Infectious Disease Start: 08-14-2022 Telephone encounter Chey hagan SENIOR COMMUNICATIONS SPECIALIST.CNM Work Phone: OB/Gynecology Comment on above: Orders Start: 08-14-2022 End: 08-14-2022 Emergency department patient visit Thanh Davis Marrero [facility] Emergency 10 Start: 08-13-2022 End: 08-13-2022 Emergency department patient visit [facility]Emergency [facility] Start: 08-12-2022 Telephone encounter Chrissy harmon MD Work Phone: OB/Gynecology Comment on above: Returning Patient's Call; Follow Up Start: 08-11-2022 ambulatory Jo Ann marin LPN NURSE [employer] Comment on above: hepatitis c exposure Start: 08-09-2022 End: 08-09-2022 Patient encounter procedure Debby Reeves MD Work Phone: [facility] Comment on above: Viral URI (Primary D x); Pharyngitis, unspecified etiology Start: 08-09-2022 End: 08-09-2022 Patient encounter procedure Sulma Bartholomew SENIOR COMMUNICATIONS SPECIALIST.CNM Work Phone: OB/Gynecology Comment on above: 24 weeks gestation o f (Primary Dx); Encounter for supervision of other normal in second trimester Start: 08-05-2022 ambulatory Radha Morales RN NURSE [employer] UNLOAD Comment on above: Sore Throat; Ear Kiya n Start: 08-03-2022 End: 08-03-2022 Patient encounter procedure Wendy Rivera APRN.EDUCATION ADMINISTRATOR Work Phone: [facility] Comment on above: URI, acute (Primary Dx) Start: 07-27-2022 Telephone encounter Sulma leyva SENIOR COMMUNICATIONS SPECIALIST.CNM Work Phone: OB/Gynecology Comment on above: Patient Update Start: 07-27-2022 End: 07-27-2022 Patient encounter procedure Ludmila Cazares MD Work Phone: Maternal Medicine Comment on above: Encounter for anatomic survey (Primary Dx); 22 weeks gestation of ; Obesity complicating , second trimester Pharyngitis, unspeci fied etiology (Primary Dx); Ulcer of lower lip Start: 07-06-2022 End: 07-06-2022 Patient encounter procedure Sulma Bartholomew SENIOR COMMUNICATIONS SPECIALIST.CNM Work Phone: OB/Gynecology Comment on above: 19 weeks gestation o f (Primary Dx); Migraine with aura and without status migrainosus, not intractable; Engages in vaping Start: 07-05-2022 Refill Debby Reeves MD Work Phone: Family [facility] [place] Comment on above: Refill Request Medication Problem Start: 06-23-2022 End: 06-23-2022 Patient encounter procedure Wai Magallon SENIOR COMMUNICATIONS SPECIALIST.EDUCATION ADMINISTRATOR Work Phone: [facility] Comment on above: Viral illness (Prima ry Dx) Start: 06-18-2022 ambulatory Susana Hill RN NURSE [employer] LOAD [employer] UNLOAD Comment on above: Information Start: 06-14-2022 Telephone encounter Joe Reeves MD Work Phone: Family [facility] [place] Comment on above: Future Appointment Start: 05-31-2022 End: 05-31-2022 ambulatory Debby Reeves MD Work Phone: Family [facility] [place] Comment on above: Intractable migraine without [...] encounter procedure Debby Reeves MD Work Phone: [facility] Comment on above: Intractable migraine without aura and with status migrainosus (Primary Dx) Start: 05-23-2022 End: 05-23-2022 Patient encounter procedure Vale Briones MD Work Phone: OB/Gynecology Comment on above: Encounter for superv ision of other normal in first trimester (Primary Dx); 12 weeks gestation of Start: 05-02-2022 End: 05-02-2022 Emergency department patient visit [facility]Emergency [facility] Start: 04-26-2022 Orders Only Ludmila Cazares MD Work Phone: Maternal Medicine Comment on above: Encounter for superv ision of other normal in first trimester (Primary Dx) Start: 04-13-2022 Telephone encounter Vale ocampo MD Work Phone: OB/Gynecology Comment on above: Medication Question Start: 04-13-2022 End: 04-13-2022 Nursing evaluation of patient and [facility] Work Phone: [facility] Comment on above: Supervision of high risk , antepartum (Primary Dx); Spotting in early ; History of depression; Drug abuse (HCC); Engages in vaping; History of macrosomia in in prior , currently ; Patient request for diagnostic testing Start: 04-13-2022 End: 01-01-2023 Patient requested procedure Nurse [facility] Work Phone: OB/Gynecology Start: 04-06-2022 End: 04-06-2022 Patient encounter procedure Vale Briones MD Work Phone: OB/Gynecology Comment on above: Threatened (Primary Dx) Start: 04-03-2022 End: 04-03-2022 Emergency department patient visit GIL LEE MD [facility] Start: 04-03-2022 Telephone encounter Vale ocampo MD Work Phone: OB/Gynecology Comment on above: Early OB Bleeding Start: 03-24-2022 Telephone encounter Bibi smith SENIOR COMMUNICATIONS SPECIALIST.EDUCATION ADMINISTRATOR Work Phone: Family Medicine [place] Comment on above: Results Start: 03-23-2022 ambulatory Ginny Scott RN [facility] Start: 03-23-2022 Patient encounter procedure Ginny Scott RN NURSE [employer] LO[employer] UNLOAD Comment on above: Referral Information Start: 03-22-2022 Telephone encounter Chey Sylvia lucas DRY HEAT ROOM ATTENDANT Work Phone: Adult Psychology Comment on above: behavioral health so cial work Start: 03-21-2022 End: 03-21-2022 Patient encounter procedure Debby Reeves MD Work Phone: Family Medicine [place] Comment on above: at early s tage [...] patient Chrissy Seay MD Work Phone: [facility] Start: 02-22-2022 Telephone encounter Wai Bailey MD Work Phone: Family Medicine [place] Comment on above: Medication Request Start: 02-21-2022 Telephone encounter Sulma leyva APRN.CNM Work Phone: OB/Gynecology Comment on above: Patient Question Start: 02-02-2022 Telephone encounter Carmelita Millan MD Work Phone: OB/Gynecology Comment on above: Patient Question Start: 01-20-2022 Telephone encounter Sulma leyva APRN.CNM Work Phone: OB/Gynecology Comment on above: Results Start: 01-19-2022 End: 01-19-2022 Patient encounter procedure Sulma Bartholomew APRN.JULISSA Work Phone: OB/Gynecology Comment on above: Encounter for IUD re moval (Primary Dx); Vaginal discharge Start: 01-10-2022 Telephone encounter Sulma leyva APRN.JULISSA Work Phone: OB/Gynecology Comment on above: Results; Appointment Start: 12-28-2021 End: 12-28-2021 Patient encounter procedure Sulma Bartholomew APRN.JULISSA Work Phone: OB/Gynecology Comment on above: Screen for STD (sexu ally transmitted disease) (Primary Dx); Encounter for gynecological examination (general) (routine) without abnormal findings; Screening for cervical cancer; Encounter for screening for human papillomavirus (HPV) Start: 12-28-2021 End: 12-28-2021 Patient encounter status Sulma Bartholomew APRN.CNM Work Phone: OB/Gynecology Start: 12-23-2021 End: 12-23-2021 Patient encounter procedure Wai Magallon APRN.CNP Work Phone: [facility] Comment on above: Rash (Primary Dx) Start: 11-25-2021 End: 11-25-2021 Telemedicine consultation with patient Amaya Rasmussen APRN.CNP, DNP Work Phone: [facility] Start: 11-25-2021 End: 11-25-2021 Telephone encounter Amaya Rasmussen APRN.CNP, DNP Work Phone: Family Medicine [place] Comment on above: Medication Problem Attention deficit hy peractivity disorder (ADHD), predominantly inattentive type (Primary Dx); Anxiety with depression Start: 11-23-2021 End: 11-23-2021 Office outpatient visit 10 minutes Amaya Rasmussen APRN.CNP, DEO Work Phone: [facility] [place] Comment on above: Attention deficit hy peractivity disorder (ADHD), predominantly inattentive type (Primary Dx); Anxiety with depression Start: 10-27-2021 Refill Amaya Rasmussen APRN.CNP, DEO Work Phone: [facility] [place] Comment on above: Refill Request Rx substitution Start: 12-17-2020 End: 12-17-2020 Emergency department patient visit Dev Fl[facility] ED Bed 06 Start: 12-09-2014 End: 09-18-2019 Patient encounter status Chey Ladd OCTAVIO.EDUCATION ADMINISTRATOR Work Phone: [facility] Procedures Date Procedure Procedure Detail Performing Clinician Start: 05-08-2025 Antibody screen KEATON TRACY Comment on above: Order Comment: Speci men Type: BLOOD SPECIMENOrdering Facility: [facility] Address: [address] [place] [address] Performed By: #### T SPN ####[facility] LABCLIA [id number] [place] [address] [place] Start: 04-21-2025 Urnls dip stick/tabl et rgnt auto w/o microscopy Thanh Marrero DO Work Phone: Start: 04-21-2025 Basic metabolic pane l calcium total Thanh Marrero DO Work Phone: Start: 03-06-2025 Us pelvic nonobstetr ic real-time image complete Candice Orozco APRN.CNP Work Phone: Start: 02-13-2025 Follow-up visit Follow Up KEATON TRACY Start: 02-11-2025 Ct abdomen & pelvis w/contrast material Rosanna W Ruiz DO Work Phone: Start: 02-11-2025 Comprehensive [...] Phone: Start: 05-27-2024 STREP A MOLECULAR (POC) Jil Bailey SENIOR COMMUNICATIONS SPECIALIST.EDUCATION ADMINISTRATOR Work Phone: Start: 05-19-2024 Microscopic observat ion [Identifier] in Cervix by Cyto stain Keaton Tracy MD Work Phone: Start: 04-15-2024 Ct soft tissue neck w/contrast material Wilver Mora SENIOR COMMUNICATIONS SPECIALIST-EDUCATION ADMINISTRATOR Work Phone: Start: 04-15-2024 Comprehensive metabo lic panel Wilvercolton Mora SENIOR COMMUNICATIONS SPECIALIST-EDUCATION ADMINISTRATOR Work Phone: Start: 11-20-2023 Ecg routine ecg [...] 64 YR, QUADRIVALENT (AFLURIA, FLULAVAL, FLUZONE) Bibi Podloglala SENIOR COMMUNICATIONS SPECIALIST.EDUCATION ADMINISTRATOR Work Phone: Start: 09-03-2023 Classiphix COVI D-19 VACCINE ( SEASON) AGE 12+ YR Bibi Podlogar SENIOR COMMUNICATIONS SPECIALIST.EDUCATION ADMINISTRATOR Work Phone: Start: 08-26-2023 Ct abdomen & pelvis w/o contrast material Wilver Tarango PA-C Work Phone: Start: 08-26-2023 Comprehensive metabo lic panel Wilver Tarango PA-Jennifer Work Phone: Start: 08-26-2023 Urine test visual color cmprsn meths Wilver Taragno PA-C Work Phone: Start: 08-26-2023 Urinalysis microscop ic [...] Start: 02-14-2023 PAIN PANEL, UR QUANT Ch rismichelle Reeves MD Work Phone: Start: 02-14-2023 SPECIMEN VALIDITY, URINE Debby Reeves MD Work Phone: Start: 12-27-2022 Microscopic observat ion [Identifier] in Cervix by Cyto stain No Generic Provider Start: 11-15-2022 URINE OB DIP B/O Donnie Melgar SENIOR COMMUNICATIONS SPECIALIST.CNM Work Phone: Start: 11-02-2022 URINE OB DIP B/O Dean Bartholomew SENIOR COMMUNICATIONS SPECIALIST.CNM Work Phone: Start: 11-02-2022 Us preg uterus after 1st trimest 07/23 gestation Carmelita Millan MD Work Phone: Start: 10-18-2022 URINE OB DIP B/O Linda Millan MD Work Phone: Start: 08-09-2022 URINE OB DIP B/O Dean Bartholomew SENIOR COMMUNICATIONS SPECIALIST.CNM Work Phone: Start: 07-27-2022 Iadna nos amplified probe tq each organism Chey Ladd SENIOR COMMUNICATIONS SPECIALIST.EDUCATION ADMINISTRATOR Work Phone: Start: 07-27-2022 STREP A MOLECULAR (POC) Stephy Briones SENIOR COMMUNICATIONS SPECIALIST.EDUCATION ADMINISTRATOR Work Phone: Start: 07-27-2022 Us preg uterus after 1st trimest 07/23 gestation Sulma Bartholomew SENIOR COMMUNICATIONS SPECIALIST.CNM Work Phone: Start: 07-06-2022 URINE OB DIP B/O Dean Bartholomew SENIOR COMMUNICATIONS SPECIALIST.CNM Work Phone: Start: 05-24-2022 Us nuchal escamilla slucency 1st gestation Sulma Bartholomew SENIOR COMMUNICATIONS SPECIALIST.CNM Work Phone: Start: 05-23-2022 URINE OB DIP B/O Vale Briones MD Work Phone: Start: 03-21-2022 Adult depression scr eening assessment Debby Reeves MD Work Phone: Start: 08-02-2021 Adult depression scr eening assessment Amaya Rasmussen APRN.EDUCATION ADMINISTRATOR, DNP Work Phone: Plan of Treatment Date Care Activity Detail Author Start: 2068 RSV High Risk: (Elderly (60+) or Population) (1 - 1-dose 75+ series) RSV High Risk: (Elderly (60+) or Population) (1 - 1-dose 75+ series) [facility] Start: 2068 RSV Vaccine (1 - 1-dose 75+ series) RSV Vaccine (1 - 1-dose 75+ series) [facility] Start: 2053 RSV patients and/or patients aged 60+ years (1 - 1-dose 60+ series) RSV patients and/or patients aged 60+ years (1 - 1-dose 60+ series) [facility] Start: 10-12-2043 Shingles (RZV) Vaccine (1 of 2) Shingles (RZV) Vaccine (1 of 2) [facility] Start: 10-12-2043 Zoster Vaccines (1 of 2) Zoster Vaccines (1 of 2) [facility] Start: 10-18-2032 DTaP/Tdap/Td Vaccines (9 - Td or Tdap) DTaP/Tdap/Td Vaccines (9 - Td or Tdap) [facility] Start: 10-18-2032 Tetanus vaccination Tetanus (Td or Tdap) [facility] Start: 10-18-2032 Urine microalbumin profile [facility] Start: 12-28-2027 Screening for malignant neoplasm of cervix [facility] Start: 05-19-2027 Screening for malignant neoplasm of cervix [facility] Start: 04-21-2026 Diabetes mellitus screening Diabetes Screening [facility] Start: 02-13-2026 Annual PCP Team Chronic Disease Visit Annual PCP Team Chronic Disease Visit [facility] Start: 02-11-2026 Diabetes mellitus screening Diabetes Screening [facility] Start: 12-27-2025 PAP TESTING PAP TESTING [facility] Start: 12-27-2025 Screening for malignant neoplasm of cervix [facility] Start: 11-28-2025 Annual PCP Team Chronic Disease Visit Annual PCP Team Chronic Disease Visit [facility] Start: 08-08-2025 Annual PCP Team Chronic Disease Visit Annual PCP Team Chronic Disease Visit [facility] Start: 05-19-2025 Screening for malignant neoplasm of cervix Cervical Cancer Screening [facility] Start: 04-15-2025 Annual PCP Team Chronic Disease Visit Annual PCP Team Chronic Disease Visit [facility] Start: 03-27-2025 Annual PCP Team Chronic Disease Visit Annual PCP Team Chronic Disease Visit [facility] Start: 03-23-2025 COVID-19 Vaccine ( season) COVID-19 Vaccine () [facility] Start: 03-23-2025 Influenza vaccination [facility] Start: 03-20-2025 End: 03-20-2025 Patient encounter procedure 03/20/2025 2:00 PM EDT Office Visit OB/Gynecology [address] [place] [address] Carmelita Millan MD [address] [place] [address] follow up 6 weeks OB/Gynecology Comment on above: follow up 6 weeks Start: 02-13-2025 End: 02-13-2025 ambulatory 02/13/2025 12:00 PM EDT [facility] Family Medicine [address] [place] [address] eKaton Tracy MD [address] [place] [address] Issues with my back Family Medicine Comment on above: Issues with my back Start: 01-29-2025 End: 01-29-2026 US Pelvis PELVIC US [facility] Anc Imaging Routine Pelvic pain in female Expected: 01/29/2025, Expires: 01/29/2026 [facility] Work Phone: Comment on above: Expected: 01/29/2025, Expires: Start: 01-29-2025 End: 01-29-2025 Patient encounter procedure 01/29/2025 10:20 AM EDT Office Visit OB/Gynecology [address] [place] [address] Carmelita Millan MD [address] [place] [address] Painful intercourse OB/Gynecology Comment on above: Painful intercourse Start: 01-14-2025 End: 01-14-2025 Patient encounter procedure 01/14/2025 9:30 AM EDT Office Visit Pain Management [address] [phone] Isidro Pineda MD [address] [facility] [place], [place] [phone] low back pain (WebAppointment Request #[id number]) Pain Management Comment on above: low back pain (WebAppointment Request #[id number]) Start: 12-30-2024 End: 12-30-2024 Patient encounter procedure 12/30/2024 3:00 PM EDT Office Visit OB/Gynecology [address] [place] [address] Angela Haq APRN.EDUCATION ADMINISTRATOR [address] [place] [address] prolonged bleeding/ cramping OB/Gynecology Comment on above: prolonged bleeding/ cramping Start: 12-28-2024 PAP TESTING PAP TESTING [facility] Start: 12-10-2024 End: 12-10-2024 ambulatory 12/10/2024 9:00 AM EDT [facility] [address] [phone] Andrew Irby PA-C [address] [place], [place] [phone] Chronic midline low back pain without sciatica [facility] Comment on above: Chronic midline low back pain without sc iatica Start: 12-06-2024 Annual PCP Team Chronic Disease Visit Annual PCP Team Chronic Disease Visit [facility] Start: 09-27-2024 Annual PCP Team Chronic Disease Visit Annual PCP Team Chronic Disease Visit [facility] Start: 09-20-2024 Annual PCP Team Chronic Disease Visit Annual PCP Team Chronic Disease Visit [facility] Start: 09-03-2024 Annual PCP Team Chronic Disease Visit Annual PCP Team Chronic Disease Visit [facility] Start: 08-31-2024 Annual PCP Team Chronic Disease Visit Annual PCP Team Chronic Disease Visit [facility] Start: 08-08-2024 End: 08-08-2024 [facility] 08/08/2024 11:20 AM EST [facility] Medicine [address] [place] [address] Keaton Tracy MD [address] [place] [address] RBBB (Primary Dx); Chronic midline low back [...] Start: 07-31-2024 Diabetes mellitus screening Diabetes Screening [facility] Start: 07-03-2024 Annual PCP Team Chronic Disease Visit Annual PCP Team Chronic Disease Visit [facility] Start: 06-24-2024 End: 06-24-2024 Patient encounter procedure 06/24/2024 3:20 PM EST Office Visit OB/Gynecology [address] [place] [address] Carmelita Millan MD [address] [place] [address] Colposcopy, EMB/ECC OB/Gynecology Comment on above: Colposcopy, EMB/ECC Start: 06-13-2024 Annual PCP Team Chronic Disease Visit Annual PCP Team Chronic Disease Visit [facility] Start: 06-06-2024 End: 06-06-2024 Patient encounter procedure 06/06/2024 12:00 PM EST Office Visit Cardiology [address] [place] [address] [place] [address] [place], [place] [phone] ED follow up- Palpitations Cardiology Comment on above: ED follow up- Palpitations Start: 06-04-2024 Annual PCP Team Chronic Disease Visit Annual PCP Team Chronic Disease Visit [facility] Start: 04-09-2024 End: 04-09-2024 Patient encounter procedure 04/09/2024 3:40 PM EDT Office Visit OB/Gynecology [address] [place] [address] Carmelita Millan MD [address] [place], [place] [phone] IUD removal OB/Gynecology Comment on above: IUD removal Start: 03-23-2024 COVID-19 Vaccine ( season) COVID-19 Vaccine ( season) [facility] [facility] Start: 03-23-2024 Covid-19 Vaccine ( season) Covid-19 Vaccine ( season) [facility] Start: 03-23-2024 Influenza vaccination Influenza Vaccine (#1) [facility] Start: 03-21-2024 ANNUAL PCP TEAM CHRONIC DISEASE VISIT ANNUAL PCP TEAM CHRONIC DISEASE VISIT [facility] Start: 03-13-2024 ANNUAL PCP TEAM CHRONIC DISEASE VISIT ANNUAL PCP TEAM CHRONIC DISEASE VISIT [facility] Start: 03-13-2024 COVID-19 Vaccine ( formulation) COVID-19 Vaccine ( formulation) [facility] Start: 03-06-2024 ANNUAL PCP TEAM CHRONIC DISEASE VISIT ANNUAL PCP TEAM CHRONIC DISEASE VISIT [facility] Start: 03-03-2024 ANNUAL PCP TEAM CHRONIC DISEASE VISIT ANNUAL PCP TEAM CHRONIC DISEASE VISIT [facility] Start: 02-15-2024 ANNUAL PCP TEAM CHRONIC DISEASE VISIT ANNUAL PCP TEAM CHRONIC DISEASE VISIT [facility] Start: 02-07-2024 End: 02-07-2024 Patient encounter procedure 02/07/2024 9:00 AM EDT Office Visit Adult Psychiatry [address] [place] [address] Wai Briones APRN.EDUCATION ADMINISTRATOR [id number] [place] [address] ADHD (specifically Panic Disorder), Adult Psychiatry Comment on above: ADHD (specifically Panic Disorder), Start: 01-15-2024 End: 01-15-2024 [facility] 01/15/2024 9:30 AM EDT [facility] Psychiatry [address] [place] [address] Sumi English MD [address] [place] [address] Panic Disorder Psychiatry Comment on above: Panic Disorder Start: 12-28-2023 Screening for malignant neoplasm of cervix Cervical Cancer Screening [facility] Start: 12-20-2023 ANNUAL PCP TEAM CHRONIC DISEASE VISIT ANNUAL PCP TEAM CHRONIC DISEASE VISIT [facility] Start: 12-07-2023 End: 12-07-2023 [facility] 12/07/2023 3:20 PM EDT [facility] Family Medicine [address] [address] Keaton Tracy MD [address] [place] [address] ADHD (attention deficit hyperactivity disorder), inattentive type [...] Adrenal nodule (HCC) Expected: 11/26/2023, Expires: 02/25/2024 [facility] Work Phone: Comment on above: Expected: 11/26/2023, Expires: Start: 11-26-2023 End: 02-25-2024 Basic metabolic 2000 panel - Serum or Plasma BASIC METABOLIC PANEL Lab Routine Adrenal nodule (HCC) Expected: 11/26/2023, Expires: 02/25/2024 [facility] Comment on above: Expected: 11/26/2023, Expires: Start: 11-26-2023 End: 02-25-2024 METANEPHRINES, FREE PLASMA METANEPHRINES, FREE PLASMA Lab Routine Adrenal nodule (HCC) Expected: 11/26/2023, Expires: 02/25/2024 [facility] Comment on above: Expected: 11/26/2023, Expires: Start: 11-26-2023 End: 11-26-2023 ambulatory 11/26/2023 10:20 AM EDT [facility] Endocrinology [address] [place] [address] John Braden MD [address] [place] [address] Cramping of hands [R25.2] Endocrinology Comment on above: Cramping of hands [R25.2] Start: 10-01-2023 End: 10-01-2023 Telemedicine consultation with patient 10/01/2023 8:15 AM EDT Telemedicine [facility] [address] [place] [address] Dev Narayan MD [address] [place] [address] [facility] Start: 09-24-2023 COVID-19 Vaccine (2 - Pfizer risk series) COVID-19 Vaccine (2 - Pfizer risk series) [facility] Start: 09-24-2023 End: 09-23-2024 XR Abdomen Single view [facility] Service Area Work Phone: Comment on above: Expected: 09/24/2023, Expires: 5 Once for 1 Occurrenc es starting 09/24/2023 until 09/24/2023 Start: 08-29-2023 ANNUAL PCP TEAM CHRONIC DISEASE VISIT ANNUAL PCP TEAM CHRONIC DISEASE VISIT [facility] Start: 08-09-2023 ANNUAL PCP TEAM CHRONIC DISEASE VISIT ANNUAL PCP TEAM CHRONIC DISEASE VISIT [facility] Start: 08-03-2023 ANNUAL PCP TEAM CHRONIC DISEASE VISIT ANNUAL PCP TEAM CHRONIC DISEASE VISIT [facility] Start: 08-03-2023 COVID-19 VACCINE (2 - Pfizer series) COVID-19 VACCINE (2 - Pfizer series) [facility] Comment on above: Postponed from 07/27/2021 (Declined at t his time) Postponed from 08/31 (Declined at this time) Start: 08-03-2023 Urine microalbumin profile DTAP,TDAP,TD (7 - Td or Tdap) [facility] Comment on above: Postponed from 11/14/2017 (Declined at t his time) Start: 07-23-2023 Depression Assessment Depression Assessment [facility] Start: 07-22-2023 DEPRESSION ASSESSMENT DEPRESSION ASSESSMENT [facility] Comment on above: Postponed from 07/23/2022 (Declined at t his time) Start: 07-03-2023 End: 10-02-2023 Comprehensive metabolic 2000 panel - Serum or Plasma COMP METABOLIC PANEL Lab Routine Diabetes mellitus screening Expected: 07/03/2023, Expires: 10/02/2023 [facility] Work Phone: Comment on above: Expected: 07/03/2023, Expires: 4 Start: 07-03-2023 End: 10-02-2023 Hemoglobin A1c in Blood HGB A1C Lab Routine Diabetes mellitus screening Expected: 07/03/2023, Expires: 10/02/2023 [facility] Work Phone: Comment on above: Expected: 07/03/2023, Expires: 4 Start: 07-03-2023 End: 10-02-2023 Lipid 1996 panel - Serum or Plasma LIPID PANEL BASIC Lab Routine Need for lipid screening Expected: 07/03/2023, Expires: 10/02/2023 [facility] Work Phone: Comment on above: Expected: 07/03/2023, Expires: 4 Start: 06-13-2023 End: 09-12-2023 Hemoglobin A1c in Blood HGB A1C Lab Routine Numbness and tingling of right side of face Expected: 06/13/2023, Expires: 09/12/2023 [facility] Work Phone: Comment on above: Expected: 06/13/2023, Expires: 4 Start: 06-13-2023 End: 09-12-2023 Thyrotropin [Units/volume] in Serum or Plasma TSH BLD Lab Routine Anxiety with depression Expected: 06/13/2023, Expires: 09/12/2023 [facility] Work Phone: Comment on above: Expected: 06/13/2023, Expires: Start: 06-05-2023 [facility] Start: 06-04-2023 [facility] Start: 06-04-2023 [facility] Start: 05-31-2023 ANNUAL PCP TEAM CHRONIC DISEASE VISIT ANNUAL PCP TEAM CHRONIC DISEASE VISIT [facility] Start: 05-23-2023 ANNUAL PCP TEAM CHRONIC DISEASE VISIT ANNUAL PCP TEAM CHRONIC DISEASE VISIT [facility] Start: 05-11-2023 Ambulation without limitation [facility] Start: 05-11-2023 Medical regimen orders management [facility] Start: 05-11-2023 Medication education [facility] Start: 05-11-2023 Patient discharge [facility] Start: 05-11-2023 Taking patient vital signs [facility] Start: 05-11-2023 Vital signs measurements [facility] Start: 05-11-2023 [facility] Start: 05-11-2023 Anesthesia vaginal procedure w/biopsy nos ANESTH VAGINAL PROCEDURES [facility] Start: 05-11-2023 Insertion intrauterine device iud INSERT INTRAUTERINE DEVICE [facility] Start: 04-19-2023 Patient referral [facility] Work Phone: Start: 03-23-2023 Covid-19 Vaccine (2022- season) Covid-19 Vaccine ( season) [facility] Start: 03-23-2023 Influenza vaccination [facility] Start: 03-21-2023 Adult depression screening assessment DEPRESSION SCREENING [facility] Start: 03-21-2023 ANNUAL PCP TEAM CHRONIC DISEASE VISIT ANNUAL PCP TEAM CHRONIC DISEASE VISIT [facility] Start: 02-14-2023 End: 04-16-2023 PAIN PANEL, UR QUANT [facility] Work Phone: Comment on above: Expected: 02/14/2023, Expires: Start: 01-19-2023 Influenza vaccination INFLUENZA (#1) [facility] Comment on above: Postponed from 03/23/2022 (Declined at t his time) Start: 11-25-2022 ANNUAL PCP TEAM CHRONIC DISEASE VISIT ANNUAL PCP TEAM CHRONIC DISEASE VISIT [facility] Start: 11-23-2022 ANNUAL PCP TEAM CHRONIC DISEASE VISIT ANNUAL PCP TEAM CHRONIC DISEASE VISIT [facility] Start: 11-23-2022 Patient discharge [facility] Start: 11-22-2022 Administration of medication [facility] Start: 11-22-2022 Application of ice collar, cap or bag [facility] Start: 11-22-2022 Catheterization of vein [facility] Start: 11-22-2022 Introduction of urinary catheter [facility] Start: 11-22-2022 Measuring intake and output [facility] Start: 11-22-2022 Notification of physician [facility] Start: 11-22-2022 Procedure discontinued [facility] Start: 11-22-2022 Provision of activity privileges [facility] Start: 11-22-2022 Vital signs measurements [facility] Start: 11-22-2022 [facility] Start: 11-22-2022 Admission procedure [facility] Start: 11-22-2022 Consultation [facility] Start: 11-15-2022 Nonstress test [facility] Start: 11-15-2022 Obstetric monitoring [facility] Start: 11-15-2022 Vital signs measurements [facility] Start: 11-15-2022 [facility] Start: 11-15-2022 Patient discharge [facility] Start: 11-08-2022 End: 11-09-2023 OBSTETRIC ULTRASOUND [facility] OBSTETRIC ULTRASOUND [facility] Anc Imaging Routine Diet controlled gestational diabetes mellitus (GDM), antepartum Expected: 11/08/2022, Expires: 11/09/2023 [facility] Work Phone: Comment on above: Expected: 11/08/2022, Expires: 4 Start: 11-06-2022 End: 01-06-2023 Ferritin [Mass/volume] in Serum or Plasma FERRITIN BLD Lab Routine Anemia during in second trimester Expected: 11/06/2022, Expires: 01/06/2023 [facility] Work Phone: Comment on above: Expected: 11/06/2022, Expires: 3 Start: 11-06-2022 End: 01-06-2023 GEST GLUC MARTY, 3-HR, 100 GM, FASTING GEST GLUC MARTY, 3-HR, 100 GM, FASTING Lab Routine Anemia during in second trimester Expected: 11/06/2022, Expires: 01/06/2023 [facility] Work Phone: Comment on above: Expected: 11/06/2022, Expires: 3 Start: 11-06-2022 End: 01-06-2023 Iron and Iron binding capacity panel - Serum or Plasma IRON + TIBC Lab Routine Anemia during in second trimester Expected: 11/06/2022, Expires: 01/06/2023 [facility] Work Phone: Comment on above: Expected: 11/06/2022, Expires: 3 Start: 11-02-2022 End: 01-02-2023 GEST GLUC MARTY, 3-HR, 100 GM, FASTING GEST GLUC MARTY, 3-HR, 100 GM, FASTING Lab Routine Abnormal glucose complicating Expected: 11/02/2022, Expires: 01/02/2023 [facility] Work Phone: Comment on above: Expected: 11/02/2022, Expires: 3 Start: 10-28-2022 Nonstress test [facility] Start: 10-28-2022 Obstetric monitoring [facility] Start: 10-28-2022 Vital signs measurements [facility] Start: 10-28-2022 [facility] Start: 10-28-2022 Patient discharge [facility] Start: 10-18-2022 End: 12-18-2022 Hepatitis C virus Ab [Presence] in Serum HEP C AB IA W/CONF SCRN Lab Routine 34 weeks gestation of Limited care in third trimester Supervision of other high risk pregnancies, third trimester Expected: 10/18/2022, Expires: 12/18/2022 [facility] Work Phone: Comment on above: Expected: 10/18/2022, Expires: 3 Start: 10-18-2022 End: 12-18-2022 HIV 1+2 Ab [Presence] in Serum or Plasma by Immunoassay HIV 1 2 COMBO(AG/AB),WITH REFLEX TO DIFFERENTIATION Lab Routine 34 weeks gestation of Limited care in third trimester Supervision of other high risk pregnancies, third trimester Expected: 10/18/2022, Expires: 12/18/2022 [facility] Work Phone: Comment on above: Expected: 10/18/2022, Expires: 3 Start: 10-18-2022 End: 10-19-2023 OBSTETRIC ULTRASOUND [facility] OBSTETRIC ULTRASOUND [facility] Anc Imaging Routine 34 weeks gestation of Limited care in third trimester Supervision of other high risk pregnancies, third trimester Size of fetus inconsistent with dates in third trimester Expected: 10/18/2022, Expires: 10/19/2023 [facility] Work Phone: Comment on above: Expected: 10/18/2022, Expires: 4 Start: 09-18-2022 PAP TESTING PAP TESTING [facility] Start: 09-09-2022 End: 11-09-2022 CBC W Auto Differential panel - Blood CBC + DIFF Lab Routine 24 weeks gestation of Encounter for supervision of other normal in second trimester Expected: 09/09/2022 (Approximate), Expires: 11/09/2022 [facility] Work Phone: Comment on above: Expected: 09/09/2022 (Approximate), Expi res: 11/09/2022 Start: 09-09-2022 End: 11-09-2022 GEST GLUC SCREEN, 1-HR, 50 GM, NON-FASTING GEST GLUC SCREEN, 1-HR, 50 GM, NON-FASTING Lab Routine 24 weeks gestation of Encounter for supervision of other normal in second trimester Expected: 09/09/2022 (Approximate), Expires: 11/09/2022 [facility] Work Phone: Comment on above: Expected: 09/09/2022 (Approximate), Expi res: 11/09/2022 Start: 09-09-2022 End: 11-09-2022 SYPHILIS TOTAL W/REFLEX SYPHILIS TOTAL W/REFLEX Lab Routine 24 weeks gestation of Encounter for supervision of other normal in second trimester Expected: 09/09/2022 (Approximate), Expires: 11/09/2022 [facility] Work Phone: Comment on above: Expected: 09/09/2022 (Approximate), Expi res: 11/09/2022 Start: 08-12-2022 End: 10-12-2022 Hepatitis B virus surface Ag [Presence] in Serum HEP B SURF AG SCRN Lab Routine Accident caused by hypodermic needle, initial encounter 24 weeks gestation of Expected: 08/12/2022, Expires: 10/12/2022 [facility] Work Phone: Comment on above: Expected: 08/12/2022, Expires: 3 Start: 08-12-2022 End: 10-12-2022 Hepatitis C virus Ab [Presence] in Serum HEP C AB IA W/CONF SCRN Lab Routine Accident caused by hypodermic needle, initial encounter 24 weeks gestation of Expected: 08/12/2022, Expires: 10/12/2022 [facility] Work Phone: Comment on above: Expected: 08/12/2022, Expires: 3 Start: 08-12-2022 End: 10-12-2022 Hepatitis C virus RNA [Units/volume] (viral load) in Serum or Plasma by JESSICA with probe detection HCV QUANT RNA BY PCR Lab Routine Accident caused by hypodermic needle, initial encounter 24 weeks gestation of Expected: 08/12/2022, Expires: 10/12/2022 [facility] Work Phone: Comment on above: Expected: 08/12/2022, Expires: 3 Start: 08-12-2022 End: 10-12-2022 HIV 1+2 Ab [Presence] in Serum or Plasma by Immunoassay HIV 1 2 COMBO(AG/AB),WITH REFLEX TO DIFFERENTIATION Lab Routine Accident caused by hypodermic needle, initial encounter 24 weeks gestation of Expected: 08/12/2022, Expires: 10/12/2022 [facility] Work Phone: Comment on above: Expected: 08/12/2022, Expires: 3 Start: 08-04-2022 ANNUAL PCP TEAM CHRONIC DISEASE VISIT ANNUAL PCP TEAM CHRONIC DISEASE VISIT [facility] Start: 08-02-2022 Adult depression screening assessment DEPRESSION SCREENING [facility] Start: 07-23-2022 DEPRESSION ASSESSMENT DEPRESSION ASSESSMENT [facility] Start: 07-06-2022 End: 09-05-2022 ALPHA FETOPRO MATERNAL [facility] Work Phone: Comment on above: Expected: 07/06/2022, Expires: 3 Start: 06-23-2022 End: 07-07-2022 Influenza virus A and B RNA and SARS-CoV-2 (COVID-19) N gene panel - Respiratory specimen by JESSICA with probe detection COVID WITH FLUA+B, ROUTINE Microbiology Routine Viral illness Expected: 06/23/2022, Expires: 07/07/2022 [facility] Work Phone: Comment on above: Expected: 06/23/2022, Expires: 2 Start: 04-26-2022 End: 06-26-2022 Chromosome 21 trisomy [Presence] in Blood or Tissue by Cytogenetics [id number] PLUS Lab Routine Encounter for supervision of other normal in first trimester Expected: 04/26/2022, Expires: 06/26/2022 [facility] Work Phone: Comment on above: Expected: 04/26/2022, Expires: 2 Start: 04-06-2022 End: 06-06-2022 Choriogonadotropin.beta subunit [Units/volume] in Serum or Plasma HCG QUANTITATIVE Lab Routine Threatened Expected: 04/06/2022, Expires: 06/06/2022 [facility] Work Phone: Comment on above: Expected: 04/06/2022, Expires: 2 Start: 04-04-2022 End: 06-04-2022 Choriogonadotropin.beta subunit [Units/volume] in Serum or Plasma HCG QUANTITATIVE Lab Routine Threatened Expected: 04/04/2022, Expires: 06/04/2022 [facility] Work Phone: Comment on above: Expected: 04/04/2022, Expires: 2 Start: 03-23-2022 Influenza vaccination INFLUENZA (#1) [facility] Start: 03-21-2022 End: 05-21-2022 25-hydroxyvitamin D3 [Mass/volume] in Serum or Plasma VITAMIN D 25 HYDROXY Lab Routine at early stage Anxiety with depression Expected: 03/21/2022, Expires: 05/21/2022 [facility] Work Phone: Comment on above: Expected: 03/21/2022, Expires: 2 Start: 03-21-2022 End: 05-21-2022 CBC panel - Blood by Automated count CBC Lab Routine at early stage Expected: 03/21/2022, Expires: 05/21/2022 [facility] Work Phone: Comment on above: Expected: 03/21/2022, Expires: 2 Start: 03-21-2022 End: 05-21-2022 Choriogonadotropin.beta subunit [Units/volume] in Serum or Plasma HCG QUANTITATIVE Lab Routine at early stage Expected: 03/21/2022, Expires: 05/21/2022 [facility] Work Phone: Comment on above: Expected: 03/21/2022, Expires: 2 Start: 03-21-2022 End: 05-21-2022 Cobalamin (Vitamin B12) [Mass/volume] in Serum or Plasma VITAMIN B12 BLOOD Lab Routine at early stage Anxiety with depression Expected: 03/21/2022, Expires: 05/21/2022 [facility] Work Phone: Comment on above: Expected: 03/21/2022, Expires: 2 Start: 03-21-2022 End: 05-21-2022 Comprehensive metabolic 2000 panel - Serum or Plasma COMP METABOLIC PANEL Lab Routine at early stage Expected: 03/21/2022, Expires: 05/21/2022 [facility] Work Phone: Comment on above: Expected: 03/21/2022, Expires: 2 Start: 03-21-2022 End: 05-21-2022 Thyrotropin [Units/volume] in Serum or Plasma TSH BLD Lab Routine at early stage Anxiety with depression Expected: 03/21/2022, Expires: 05/21/2022 [facility] Work Phone: Comment on above: Expected: 03/21/2022, Expires: 2 Start: 03-21-2022 End: 05-21-2022 Thyroxine (T4) free [Mass/volume] in Serum or Plasma T4 FREE/FREE THYROX Lab Routine at early stage Anxiety with depression Expected: 03/21/2022, Expires: 05/21/2022 [facility] Work Phone: Comment on above: Expected: 03/21/2022, Expires: 2 Start: 01-19-2022 End: 03-21-2022 Microscopic observation [Identifier] in Vaginal fluid by Gram stain [facility] Work Phone: Comment on above: Expected: 01/19/2022, Expires: 2 Start: 11-23-2021 End: 01-23-2022 PAIN PANEL, UR QUANT PAIN PANEL, UR QUANT Lab Routine Attention deficit hyperactivity disorder (ADHD), predominantly inattentive type Expected: 11/23/2021, Expires: 01/23/2022 [facility] Work Phone: Comment on above: Expected: 11/23/2021, Expires: 2 Start: 11-23-2021 End: 01-23-2022 TOX SCREEN ROUT UR TOX SCREEN ROUT UR Lab Routine Attention deficit hyperactivity disorder (ADHD), predominantly inattentive type Expected: 11/23/2021, Expires: 01/23/2022 [facility] Work Phone: Comment on above: Expected: 11/23/2021, Expires: 2 Start: 07-27-2021 COVID-19 VACCINE (2 - Pfizer 3-dose series) COVID-19 VACCINE (2 - Pfizer 3-dose series) [facility] Start: 07-27-2021 COVID-19 VACCINE (2 - Pfizer series) COVID-19 VACCINE (2 - Pfizer series) [facility] Start: 07-23-2021 DEPRESSION ASSESSMENT DEPRESSION ASSESSMENT [facility] Start: 11-14-2017 Urine microalbumin profile DTAP,TDAP,TD (7 - Td or Tdap) [facility] Start: 2014 Screening for malignant neoplasm of cervix HPV/Cotest [facility] Start: 2012 Hepatitis B vaccination Hepatitis B (HBV) Vaccine (1 of 3 - 19+ 3-dose series) [facility] Start: 2012 ONE PNEUMOVAX PRIOR TO AGE 65 ONE PNEUMOVAX PRIOR TO AGE 65 [facility] Start: 2012 Pneumococcal Vaccine: Pediatrics and At-Risk Adult Patients (1 of 2 - PCV) Pneumococcal Vaccine: Pediatrics and At-Risk Adult Patients (1 of 2 - PCV) [facility] Start: 10-12-2011 Anxiety Screening Anxiety Screening [facility] Start: 10-12-2011 Depression Screening Depression Screening [facility] Start: 10-12-2011 SPIROMETRY SPIROMETRY [facility] Start: 2010 HPV VACCINE (3 - Risk 3-dose series) HPV VACCINE (3 - Risk 3-dose series) [facility] Start: 2010 HPV Vaccines (3 - 3-dose series) HPV Vaccines (3 - 3-dose series) [facility] Start: 09-05-2010 HPV Vaccine (3 - 3-dose series) HPV Vaccine (3 - 3-dose series) [facility] Start: 09-05-2010 HPV Vaccines (3 - 3-dose series) HPV Vaccines (3 - 3-dose series) [facility] Start: 09-05-2010 Vaccination for human papillomavirus HPV Vaccine (3 - 3-dose series) [facility] Start: 10-12-1999 PNEUMOCOCCAL (1 - PCV) PNEUMOCOCCAL (1 - PCV) [facility] Start: 10-12-1999 Pneumococcal vaccination [facility] Start: 10-12-1999 Pneumococcal Vaccine: Pediatrics (0 to 5 Years) and At-Risk Patients (6 to 64 Years) (1 of 2 - PCV) Pneumococcal Vaccine: Pediatrics (0 to 5 Years) and At-Risk Patients (6 to 64 Years) (1 of 2 - PCV) [facility] Start: 04-13-1994 Examination of skin Derm Melanoma Skin Check [facility] Start: 1993 HIV screening HIV Screening [facility] Start: 1993 Lipid panel Lipid Panel [facility] Start: 1993 Yearly Adult Physical Yearly Adult Physical [facility] End: 08-26-2023 Bacteria identified in Urine by Culture [facility] Work Phone: Comment on above: Once (Lab) for 1 Occurrences starting until 08/26/2023 Chlamydia trachomatis+Neisseria gonorrhoeae DNA [Presence] in Unspecified specimen by JESSICA with probe detection GC/CHLAMYDIA DNA DET Lab Routine Screen for STD (sexually transmitted disease) 12/28/2021 4:34 PM EDT [facility] Work Phone: End: 11-06-2023 Choriogonadotropin ( test) [Presence] in Urine hCG, Urine, Qualitative Lab STAT STAT (Lab) for 1 Occurrences starting 11/06/2023 until 11/06/2023 [facility] Service Area Work Phone: Comment on above: STAT (Lab) for 1 Occurrences starting until 11/06/2023 End: 02-11-2025 Choriogonadotropin ( test) [Presence] in Urine POCT , urine Point of Care Testing STAT Once (Lab) for 1 Occurrences starting 02/11/2025 until 02/11/2025 [facility] Work Phone: Comment on above: Once (Lab) for 1 Occurrences starting until 02/11/2025 COLPOSCOPY COLPOSCOPY Proce dures Routine 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 of cervix Ordered: 01/10/2022 [facility] Work Phone: Comment on above: Ordered: 01/10/2022 COLPOSCOPY COLPOSCOPY Proce dures Routine Papanicolaou smear of cervix with high grade squamous intraepithelial lesion (HGSIL) Ordered: 12/27/2022 [facility] Work Phone: Comment on above: Ordered: 12/27/2022 COLPOSCOPY COLPOSCOPY Proce dures Routine Other abnormal cytological finding of specimen from cervix Ordered: 05/26/2024 [facility] Work Phone: Comment on above: Ordered: 05/26/2024 COVID & INFLUENZA A/ B & RSV PCR, ROUTINE COVID & INFLUENZA A/B & RSV PCR, ROUTINE Microbiology Routine Sore throat Viral upper respiratory tract infection with cough 05/27/2024 1:10 PM EST [facility] Work Phone: End: 11-20-2023 ECG 12 lead [facility] Service Area Work Phone: Comment on above: Once for 1 Occurrences starting 11/20/19 24 until 11/20/2023 End: 04-21-2025 ECG 12 Lead ECG 12 Lead ECG STAT Once for 1 Occurrences starting 04/21/2025 until 04/21/2025 [facility] Work Phone: Comment on above: Once for 1 Occurrences starting 04/21/20 25 until 04/21/2025 End: 09-30-2024 EPIL EEG ROUTINE EPIL EEG ROUTINE NEUROLOGY Routine Cramping of hands Facial paralysis Near syncope Migraine with aura and without status migrainosus, not intractable 1 Occurrences starting 10/01/2023 until 09/30/2024 [facility] Work Phone: Comment on above: 1 Occurrences starting 10/01/2023 until 09/30/2024 End: 09-05-2024 Extra Tubes [facility] Service Area Work Phone: Comment on above: Once (Lab) for 1 Occurrences starting until 09/05/2024 End: 08-26-2023 Extra Urine Waters T[facility] Work Phone: Comment on above: Once for 1 Occurrences starting 08/26/19 24 until 08/26/2023 End: 02-10-2025 Extra Urine Waters Tube Extra Urine Waters Tube Lab Timed Once for 1 Occurrences starting 02/10/2025 until 02/10/2025 [facility] Work Phone: Comment on above: Once for 1 Occurrences starting 02/11/20 until 02/10/2025 End: 04-21-2025 Extra Urine Waters T[facility] Work Phone: Comment on above: Once for 1 Occurrences starting 04/21/20 until 04/21/2025 End: 09-05-2024 [facility] Work Phone: Comment on above: Once for 1 Occurrences starting 09/05/19 until 09/05/2024 Insertion intrauteri ne device iud INSERT INTRAUTERINE DEVICE Procedures Routine Encounter for IUD insertion Encounter for contraceptive management, unspecified type Ordered: 01/03/2023 [facility] Work Phone: Comment on above: Ordered: 01/03/2023 Insertion intrauteri ne device iud INSERT INTRAUTERINE DEVICE Procedures Routine Encounter for IUD insertion Ordered: 02/10/2025 [facility] Work Phone: Comment on above: Ordered: 02/10/2025 End: 09-05-2024 [facility] [place] Work Phone: Comment on above: Once for 1 Occurrences starting 09/05/19 until 09/05/2024 End: 09-29-2024 MR Adrenal gland WO and W contrast IV MRI ADRENAL WO/W IVCON Radiology Routine 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 (HCC) 1 Occurrences starting 08/31/2023 until 09/29/2024 [facility] Work Phone: Comment on above: 1 Occurrences starting 08/31/2023 until 09/29/2024 End: 10-12-2024 MR Adrenal gland WO contrast MRI ADRENAL WO IVCON Radiology Routine Disorder of adrenal gland (HCC) 1 Occurrences starting 09/13/2023 until 10/12/2024 [facility] Work Phone: Comment on above: 1 Occurrences starting 09/13/2023 until 10/12/2024 End: 11-07-2024 MR Brain WO and W contrast IV MRI BRAIN WO/W IVCON Radiology Routine Migraine with aura and without status migrainosus, not intractable 1 Occurrences starting 10/09/2023 until 11/07/2024 [facility] Work Phone: Comment on above: 1 Occurrences starting 10/09/2023 until 11/07/2024 End: 06-28-2024 Mra head w/o & w/contrast material MRV BRAIN WO/W IVCON Radiology Routine Migraine with aura and without status migrainosus, not intractable FTND (full term normal delivery) 1 Occurrences starting 05/30/2023 until 06/28/2024 [facility] Work Phone: Comment on above: 1 Occurrences starting 05/30/2023 until 06/28/2024 OUTSIDE VENDOR CARDI AC OUTPATIENT EXTENDED RHYTHM RECORDING (WITHOUT TELEMETRY) OUTSIDE VENDOR CARDIAC OUTPATIENT EXTENDED RHYTHM RECORDING (WITHOUT TELEMETRY) Holter Routine Cramping of hands Facial paralysis Near syncope Ordered: 10/01/2023 [facility] Work Phone: Comment on above: Ordered: 10/01/2023 PAP FLUID CERVICAL SCREENING PAP FLUID CERVICAL SCREENING Lab Routine Encounter for gynecological examination (general) (routine) without abnormal findings Screening for cervical cancer Encounter for screening for human papillomavirus (HPV) 12/28/2021 4:34 PM EDT [facility] Work Phone: PAP TEST PAP TEST Lab Rou néstor Papanicolaou smear of cervix with high grade squamous intraepithelial lesion (HGSIL) 12/27/2022 3:11 PM EDT [facility] Work Phone: PAP TEST PAP TEST Lab Rou néstor Screening for malignant neoplasm of cervix Encounter for screening for human papillomavirus (HPV) 05/19/2024 3:08 PM EDT [facility] Patient Education [facility] Work Phone: Patient referral [facility] Work Phone: End: 09-05-2024 [facility] Work Phone: Comment on above: Once for 1 Occurrences starting 09/05/19 until 09/05/2024 Removal intrauterine device iud REMOVE INTRAUTERINE DEVICE Procedures Routine Encounter for gynecological examination (general) (routine) without abnormal findings Ordered: 12/28/2021 [facility] Work Phone: Comment on above: Ordered: 12/28/2021 Removal intrauterine device iud REMOVE INTRAUTERINE DEVICE Procedures Routine Encounter for IUD removal Ordered: 01/19/2022 [facility] Work Phone: Comment on above: Ordered: 01/19/2022 Removal intrauterine device iud REMOVE INTRAUTERINE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 [...] APRN.CNM Generalized anxiety disorder GERD (gastroesophageal reflux dis (more content not included)... [facility] 03-30-2025 Note HNO ID: [id number] Author: CARMELITA MILLAN MD Service: ? 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 Millan PAST SURGICAL HISTORY OF 01/01/2010 Removal of 4 [place] Teeth PAST SURGICAL HISTORY OF basal cell [...] As of Da (more content not included)... 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 Millan PAST SURGICAL HISTORY OF 01/01/2010 Removal of 4 [place] Teeth PAST SURGICAL HISTORY OF basal cell [...] discussed with the Patient or Patient's Authorized Plant Controller. As applicable, any other physician, advance practice provider, medical student, or other health professional student that will be observing or involved in the sensitive examination for educational or training purposes was discussed with the Patient or Authorized Plant Controller. The Patient or Authorized Plant Controller has agreed to proceed with the sensitive [...] Currently Types: Heroin, Marijuana Comment: Patient states "I have used multiple drugs in the past" documented in this encounter [facility] 03-26-2025 Instructions Aliyah Khoury RN - 03/26/2025 3:42 PM EDT Thank you for your question about termination. If you believe you have a serious medical condition which makes in-hospital medically necessary, please contact your OBGYN or PCP office to discuss this further. You may also visit [email or web address] or contact the [facility] referral line at [email or web address] and to find the closest provider based on your estimated length. [phone] [id number] [place] [address] [email or web address] [facility]- Online scheduling available [email or web address] [facility] Complex family planning call [phone] or em\\ail documented in this encounter [facility] 03-11-2025 Telephone encounter Note Pt saw EH 02/27/25 for + . Pelvic US completed 03/06/25-see report LMP 01/27/25 6w1d Pt calls stating she has a lot of health issues and would like to discuss with provider whether this + is something that she is able to continue. Appt scheduled with 03/17 to discuss. Tri Alonzo, RN [facility] 03-11-2025 Miscellaneous Notes Pt saw EH 02/27/25 for + . Pelvic US completed 03/06/25-see report LMP 01/27/25 6w1d Pt calls stating she has a lot of health issues and would like to discuss with provider whether this + is something that she is able to continue. Appt scheduled with 03/17 to discuss. Tri Alonzo RN documented in this encounter [facility] 03-09-2025 Note HNO ID: [id number] Author: DAY PEÑA MD Service: ? Author Type: Physician Type: Progress Notes Filed: 03/09/2025 13:22 Note Text: Fadumo Hensley is a 29 year old female who presented for stitch marker ultrasound today. Encounter Diagnosis ICD-10-CM 1. Encounter for test, result positive (HCC) Z32.01 Please see report under imaging tab. Day Peña MD March 09, 2025 1:10 PM [facility] 03-09-2025 History of Present illness Narrative Fadumo Hensley is a 29 year old female who presented for stitch marker ultrasound today. Encounter Diagnosis ICD-10-CM 1. Encounter for test, result positive (HCC) Z32.01 Please see report under imaging tab. Day Peña MD March 09, 2025 1:10 PM documented in this encounter [facility] 02-27-2025 Note HNO ID: [id number] Author: CANDICE OROZCO APRN.JAMES Service: ? 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 Millan PAST SURGICAL HISTORY OF 01/01/2010 Removal of 4 [place] Teeth PAST SURGICAL HISTORY OF basal cell [...] Currently Types: Heroin, Marijuana Comment: Patient states "I have used multiple drugs in the past" Current Outpatient Medications Medication Sig lamoTRIgine (LAMICTAL) [...] (1) TABLET EVERY (more content not included)... [facility] 02-13-2025 Note HNO ID: [id number] Author: KEATON TRACY MD Service: ? Author Type: Physician Type: Progress Notes Filed: 02/13/2025 13:09 Note Text: Telemedicine Visit - Distance Health Virtual Visit Note Patient seen on [email or web address] video visit platform. Location of patient: [place] I have communicated my name and active licensure. The patient's identity and physical location were verified at the time of this visit. Either the patient or their legal indirect sales representative has been informed of the risks and benefits of -- and alternatives to -- treatment through a remote evaluation and consents to proceed with the evaluation remotely. History of Present Illness 29 yo F presenting for f/u Seen by maintenance manager on 01/29 for pelvic discomfort - Like [...] obtained. 5) H/o abnormal pap - Sees maintenance manager. 6) Smoker - Pre-contemplative. 7) Chronic back [...] 05/26/2011 Depression complicating , antepartum ([facility]) 08/02/2012 Diet controlled gestational diabetes mellitus (GDM) in second trimester ([facility]) 11/08/2022 11/08/22- 2 levels out of [...] testing. Poor support system complicating ([facility]) 04/18/2012 04/18/2012The father of the baby [...] (panic attacj). flu (more content not included)... [facility] 02-13-2025 History of Present illness Narrative Telemedicine Visit - Distance Health Virtual Visit Note Patient seen on [email or web address] video visit platform. Location of patient: [place] I have communicated my name and active licensure. The patient's identity and physical location were verified at the time of this visit. Either the patient or their legal indirect sales representative has been informed of the risks and benefits of -- and alternatives to -- treatment through a remote evaluation and consents to proceed with the evaluation remotely. History of Present Illness 29 yo F presenting for f/u Seen by maintenance manager on 01/29 for pelvic discomfort - Like [...] obtained. 5) H/o abnormal pap - Sees maintenance manager. 6) Smoker - Pre-contemplative. 7) Chronic back [...] 05/26/2011 Depression complicating , antepartum ([facility]) 08/02/2012 Diet controlled gestational diabetes mellitus (GDM) in second trimester ([facility]) 11/08/2022 11/08/22- 2 levels out of [...] testing. Poor support system complicating ([facility]) 04/18/2012 04/18/2012The father of the baby [...] Currently Types: Heroin, Marijuana Comment: Patient states "I have used multiple drugs in the past" Video Exam (Examination performed via Video enabled technology) General appearance: Alert, oriented, pleasant, in NAD :Yes Ill appearing :No Lethargic appearing :No Respiratory distress :No ASSESSMENT/PLAN: 1. Right lower quadrant abdominal pain - ICD9: 789.03, ICD10: R10.31 (primary diagnosis) Pain began in pelvic region. Evaluated by maintenance manager. This seems to be improving, but there [...] any new or worsening symptoms. Follow with maintenance manager as scheduled. 2. Pelvic pain - ICD9: [id number], ICD10: R10.2 3. Chronic midline low back [...] - ICD9: V13.29, ICD10: Z87.42 Follow with maintenance manager 8. Smoking history - ICD9: V15.82, ICD10: Z87.891 Encourage cessation Keaton Tracy MD documented in this encounter [facility] 02-12-2025 Telephone encounter Note Pt notified and [...] is currently at work. Tri Alonzo RN [facility] 02-12-2025 Miscellaneous Notes Pt notified and voiced [...] what activity pt is doing and feels "heaviness" in abdomen. Pain rated a 7/10. Denies [...] willing, Thank you documented in this encounter [facility] 02-12-2025 Telephone encounter Note Those are often non specific but could indicate she had an infection that could have been causing some of her issues acutely. Carmelita Millan MD [facility] 02-11-2025 Telephone encounter Note Patient notified. She is questioning the enlarged lymph nodes on CT scan. Asking if that could be related to anything or if she just needs to f/u with PCP next since pain is ongoing? Joshua Delgado RN [facility] 02-11-[address] is unremarkable. [...] for IUD or prn. Carmelita Millan MD [facility] 02-11-2025 Telephone encounter Note Patient called stating that she was seen at the emergency dept.at yesterday and had a CT scan done d/t ongoing pelvic/lower abdominal pain for over a month that is worsening. Patient describes pain as cramping in pelvic area, and can be sharp/shooting depending on what activity pt is doing and feels "heaviness" in abdomen. Pain rated a 7/10. Denies fever. Is taking doxycycline 100 mg and started to have diarrhea a couple days ago. Patient asking if provider could review her CT scan and if a f/u appointment is needed. [facility] 02-11-2025 Telephone encounter Note Patient was called due to below [email or web address] message, she states she has been having pelvic pain for the past month and it has been worsening. She was seen by BOILER WASHER and US completed. Pain worsened yesterday and patient went to the ED and CT was completed and patient was advised to follow up with BOILER WASHER, results, 2.8cm ovarian cyst, trace fluid and several mildly prominent lymph nodes. Patient states she forgot her ER paperwork and thought she was to follow up with PCP directive to return to ED with worsening symptoms, this was also communicated to patient. She will call BOILER WASHER for follow up. Patient was seen by BOILER WASHER 01/29/2025 for same symptoms and C/O pain with intercourse Patient was given the care advice per protocol and advised to call with any new or worsening symptoms. Proceed to ED with any severe change in condition or symptom. Will follow up with BOILER WASHER Randi Message: Hi! I have an appointment with you on Sunday. I ve been having a lot of pelvic/ lower abdominal pain and cramping. I ve had it for over a month and it s getting worse. I saw my fleet salesperson and she said the pain is coming [...] is getting worse. I went to the [facility] and had a CT done and it shows swollen lymph nodes. Are you able to look over the notes? It was a hospital. The doctor at the hospital told me to follow up on this. " Reason for Disposition [1] Pelvic pain is [...] : 01/28/2025 Protocols used: Pelvic Pain - [id number] [facility] 02-11-2025 Telephone encounter Note See Triage Bibi Nielson RN [facility] 02-11-2025 Miscellaneous Notes See Triage Bibi Nielson RN documented in this encounter [facility] 02-11-2025 Miscellaneous Notes Patient was called due to below [employer] message, she states she has been having pelvic pain for the past month and it has been worsening. She was seen by BOILER WASHER and US completed. Pain worsened yesterday and patient went to the ED and CT was completed and patient was advised to follow up with BOILER WASHER, results, 2.8cm ovarian cyst, trace fluid and several mildly prominent lymph nodes. Patient states she forgot her ER paperwork and thought she was to follow up with PCP directive to return to ED with worsening symptoms, this was also communicated to patient. She will call BOILER WASHER for follow up. Patient was seen by BOILER WASHER 01/29/2025 for same symptoms and C/O pain with intercourse Patient was given the care advice per protocol and advised to call with any new or worsening symptoms. Proceed to ED with any severe change in condition or symptom. Will follow up with BOILER WASHER Joeyt Message: Hi! I have an appointment with you on Sunday. I ve been having a lot of pelvic/ lower abdominal pain and cramping. I ve had it for over a month and it s getting worse. I saw my fleet salesperson and she said the pain is coming [...] getting worse. I went to the [facility] and had a CT done and it shows swollen lymph nodes. Are you able to look over the notes? It was a hospital. The doctor at the hospital told me to follow up on this. " Reason for Disposition [1] Pelvic pain is [...] : 01/28/2025 Protocols used: Pelvic Pain - [id number] documented in this encounter [facility] 02-11-2025 Physician Emergency department Note HPI Chief Complaint Patient presents with Abdominal Pain C/o lower abd cramping with sharp pain on and off for a few weeks. Also c/o diarrhea the last week. Pt saw her stitch marker and was started on doxycycline. Denies any urinary problems 29-year-old female presents with suprapubic crampy abdominal pain. Patient states she has been symptomatic for several weeks. Patient was seen by her fleet salesperson and had an ultrasound done in the [...] mg IV and referred back to her fleet salesperson for further diagnostic studies and test. History [...] Color, Urine Light-Yellow Appearance, Urine Clear Specific [place], Urine 1.030 pH, Urine 6.0 Protein, Urine [...] Abnormality Status --------- ------ Urinalysis with Reflex C...[[id number]] Normal Final result Extra Urine Waters Tube[[id number]] Please view results for these tests on [...] Ambrose Pearson 02/11/2025 1:30 AM Dictation workstation: [id number] ED Course & MDM Diagnoses as of 02/11/25 0141 Lower abdominal pain No data recorded [place] Coma Scale Score: 15 (02/10/25 2353 : Emi Pro RN) Medical Decision Making 1 medication as prescribed 2 call fleet salesperson office tomorrow for further follow-up if symptoms [...] Name Age of Onset Hypertension Mother Verna Fortjoelle Cancer Mother Verna Fortune Heart disease Mother [...] Never Drug use: Never Rosanna Ruiz DO 02/11/25140 [facility] Work Phone: 02-11-2025 Emergency department Note HPI Chief Complaint Patient presents with Abdominal Pain C/o lower abd cramping with sharp pain on and off for a few weeks. Also c/o diarrhea the last week. Pt saw her stitch marker and was started on doxycycline. Denies any urinary problems 29-year-old female presents with suprapubic crampy abdominal pain. Patient states she has been symptomatic for several weeks. Patient was seen by her fleet salesperson and had an ultrasound done in the [...] mg IV and referred back to her fleet salesperson for further diagnostic studies and test. History [...] Color, Urine Light-Yellow Appearance, Urine Clear Specific [place], Urine 1.030 pH, Urine 6.0 Protein, Urine [...] Abnormality Status --------- ------ Urinalysis with Reflex C...[[id number]] Normal Final result Extra Urine Waters Tube[[id number]] Please view results for these tests on [...] Ambrose Pearson 02/11/2025 1:30 AM Dictation workstation: [id number] ED Course & MDM Diagnoses as of 02/11/25 0141 Lower abdominal pain No data recorded [place] Coma Scale Score: 15 (02/10/25 2353 : Emi Pro RN) Medical Decision Making 1 medication as prescribed 2 call fleet salesperson office tomorrow for further follow-up if symptoms [...] DO 02/11/25 0141 documented in this encounter [facility] Work Phone: 02-09-2025 Telephone encounter Note Pt states she was seen 01/29. She has now decided she would like to have IUD. Please advise and place orders if willing, Thank you [facility] 02-01-2025 Note HNO ID: [id number] Author: IRENE HENDERSON MD Service: ? Author Type: Physician Type: Progress Notes Filed: 02/01/2025 19:19 Note Text: The patient presents for requested ultrasound. Full report available in the "Imaging" tab in [employer]. Irene Henderson MD [facility] 02-01-2025 History of Present illness Narrative The patient presents for requested ultrasound. Full report available in the "Imaging" tab in [employer]. Irene Henderson MD documented in this encounter [facility] 01-29-2025 Note HNO ID: [id number] Author: CARMELITA MILLAN MD Service: ? Author Type: Physician Type: Progress Notes Filed: 01/29/2025 11:17 Note Text: Obstetrics and Gynecology [place] [employer] W[employer] Visit Subjective Recording using Path101 software for draft documentation of the visit was discussed with the patient/authorized indirect sales representative; all questions welcomed and answered. Patient/authorized indirect sales representative agreed to proceed CHIEF COMPLAINT: The patient is a 29-year-old female presenting with pelvic pain and irregular bleeding. HPI: Pelvic Pain - Reports sharp, twinge-like pain in the lower abdomen, which is significantly worse after intercourse and can last throughout the following day. - Describes the pain as severe enough to cause her to double over at times, stating it can be "unbearable." - Pain is not localized to one side and does not resemble menstrual cramping. - Pain during intercourse described as "something's getting bumped." - Pain onset reportedly began after a [...] Living2 SAB0 IAB0 Ectopic0 Multiple0 Live Births2 Tower [employer] Traffic Control Specialist History LMP: 01/27/2025 (Exact Date), Having periods Age at Menarche: Age at First : Age at Menopause: [employer] Specialist History Comments: Sexual Activity: Yes; Male Contraception: [...] mellitus (GDM) in second trimester ([facility]) 11/08/2022 11/08/22- 2 levels out of [...] testing. Poor support system complicating ([facility]) 04/18/2012 04/18/2012The father of the baby [...] UTERI CONIZA LP ELCTRO EXCI 05/11/2023 at [facility]-Dr. Millan PAST SURGICAL HISTORY OF 01/01/2010 Removal of 4 [place] Teeth PAST SURGICAL HISTORY OF basal cell carcinoma removed from scalp FAMILY HISTORY Problem Relation Age of Onset Skin Cancer Mother Hyper (more content not included)... [facility] 01-29-2025 History of Present illness Narrative Images from the original note were not included. Obstetrics and Gynecology [place] [employer] Visit Subjective Recording using ambient TheCommentor software for draft documentation of the visit was discussed with the patient/authorized indirect sales representative; all questions welcomed and answered. Patient/authorized indirect sales representative agreed to proceed CHIEF COMPLAINT: The [...] cramping. - Pain during intercourse described as "something's getting bumped." - Pain onset reportedly began after a [...] Living2 SAB0 IAB0 Ectopic0 Multiple0 Live Births2 Tower [employer] Traffic Control Specialist History LMP: 01/27/2025 (Exact Date), Having periods Age at Menarche: Age at First : Age at Menopause: Tower [employer] Traffic Control Specialist History Comments: Sexual Activity: Yes; Male Contraception: [...] 05/26/2011 Depression complicating , antepartum ([facility]) 08/02/2012 Diet controlled gestational diabetes mellitus (GDM) in second trimester ([facility]) 11/08/2022 11/08/22- 2 levels out of [...] testing. Poor support system complicating ([facility]) 04/18/2012 04/18/2012The father of the baby [...] UTERI CONIZA LP ELCTRO EXCI 05/11/2023 at [facility]-Dr. Millan PAST SURGICAL HISTORY OF 01/01/2010 Removal of 4 [place] Teeth PAST SURGICAL HISTORY OF basal cell [...] Currently Types: Heroin, Marijuana Comment: Patient states "I have used multiple drugs in the past" Current Outpatient Medications Medication Sig lamoTRIgine (LAMICTAL) [...] discussed with the Patient or Patient's Authorized Plant Controller. As applicable, any other physician, advance practice provider, medical student, or other health professional student that will be observing or involved in the sensitive examination for educational or training purposes was discussed with the Patient or Authorized Plant Controller. The Patient or Authorized Plant Controller has agreed to proceed with the sensitive examination. (Sensitive examination includes inspection and/or palpation of the breasts, pelvis, prostate and anorectal regions). PHYSICAL EXAM: BP 104/70 Wt 177 lb (80.3kg) LMP 01/27/2025 GENERAL: Pleasant; in no acute distress ABDOMEN: soft, non-tender, no masses, no hernia, diffuse tenderness lower abdomen, no rebound or guarding. : - PELVIC: external genitalia normal, normal Bartholin's glands, urethra, Rocky's glands, no vulvar lesions, no cervical lesions, [...] (N92.6) - Recent menstrual irregularity with a acv-iqid-qsfp period followed by a new bleeding episode [...] Carmelita Millan MD documented in this encounter [facility] 01-27-2025 Telephone encounter Note Pt states she [...] scheduled with RR 01/29/25. Tri Alonzo RN [facility] 01-27-2025 Miscellaneous Notes Pt states she had [...] Appt scheduled with RR 01/29/25. Tri Alonzo, RN documented in this encounter [facility] 01-26-2025 Telephone encounter Note Prescription Refill Information [...] Hensley LPN January 26, 2025 2:27 PM [facility] 01-26-2025 Miscellaneous Notes Prescription Refill Information The [...] 2025 2:27 PM documented in this encounter [facility] 12-29-2024 Telephone encounter Note Patient calling c/o [...] or pain. Patient agreed. Joshua Delgado RN [facility] 12-29-2024 Miscellaneous Notes Patient calling c/o bleeding [...] Joshua Delgado RN documented in this encounter [facility] 12-10-2024 Note HNO ID: [id number] Author: ANDREW IRBY PA-C Service: ? Author Type: Physician Child Day Care Provider Type: Progress Notes Filed: 12/10/2024 09:54 Note Text: [facility] [address] [address] 12/10/[facility]24 ASSESSMENT AND PLAN: Assessment : Encounter [...] times of therapy over the years Indicates "hip pain" for the past 1.5 years on the Has been to the ED at EXAM Highlights: exam as noted below, limited by video format IMAGING: Report only from CT lumbar and thoracic on 11/18/2024 from [facility]. Patient also reports having had MRI study at [facility] sometime about 2 years ago. There are no images or reports available from those [facility] studies. The lumbar CT noted above showed L5-S1 DDD with mild LEFT foraminal stenosis. In 2019, she had [facility] lumbar MRI study that showed LEFT paracentral disc bulge at L4-5. The CT report most recently corroborates only a "small disc bulge" without stenosis. SUMMARY/PLAN: She has had some [...] she is planning to take it outside [facility] system to [facility] are in [place] I briefly mentioned other options including child day care provider, osteopathic neuromuscular treatment, TENS unit, massage therapy, [...] today with this patient visit. This includes "dmot-kn-rvsb"/video time, review of chart records regarding conservative [...] visit. Either the patient or their legal indirect sales representative has been informed of the risks and benefits of -- and alternatives to -- treatment through a remote evaluation and consents to proceed with the evaluation remotely. cc: Rylan Nicholas [address] [facility] [address] Results of consultation to be transmitted via electronic medical record for those providers who practice within [facility] or with access to [employer] via MD Connect, or via letter. 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 [facility] 12-03-2024 Telephone encounter Note Form faxed and sent for scanning. Kenya Reina LPN [facility] 12-03-2024 Miscellaneous Notes Form faxed and sent for scanning. Kenya Reina LPN Forms signed Aliyah Carter APRN.EDUCATION ADMINISTRATOR Type of form: [facility] Form received via fax When form is completed, Fax form to [phone] Form has been forwarded to Aliyah Carter APRN, JAMES. Seen 11/28/24 Sienna Heller LPN Patient just had a virtual appointment she was not able to get in My Chart for paper work . Patient will have paper work faxed to office . Patient states that it should be faxed back to [facility] fax number documented in this encounter [facility] 12-03-2024 Telephone encounter Note Forms signed Aliyah Carter APRN.JAMES [facility] Work Phone: 12-01-2024 Telephone encounter Note Type of form: FMLA Form received via fax When form is completed, Fax form to [phone] Form has been forwarded to Aliyah Carter APRN, CNP. Seen 11/28/24 Sienna Heller LPN [facility] 11-28-2024 Telephone encounter Note Patient just had a virtual appointment she was not able to get in My Chart for paper work . Patient will have paper work faxed to office . Patient states that it should be faxed back to [facility]ie[facility] fax number [facility] Work Phone: 11-28-2024 Instructions Aliyah Carter APRN.CNP - 11/28/2024 12:19 PM EDT documented in this encounter [facility] 11-28-2024 Note HNO ID: [id number] Author: ALIYAH CARTER APRN.JAMES Service: ? Author Type: Nurse Practitioner Type: [...] visit. Either the patient or their legal indirect sales representative has been informed of the risks [...] then she would like a referral to [facility] for their spine department - she has [...] ordered. 5) H/o abnormal pap - Sees maintenance manager. Due for follow-up. 6) Smoker - Pre-contemplative. [...] Z12.4 Recommend gynecology f/u - CONSULT TO GYNECOLOGY" Keaton Jones (more content not included)... [facility] 11-28-2024 History of Present illness Narrative [facility] VISIT This Team Access Model visit is a virtual encounter. It required patient-provider interaction for the medical decision making as documented below. I have communicated my name and active licensure. The patient's identity and physical location were verified at the time of this visit. Either the patient or their legal indirect sales representative has been informed of the risks and benefits of -- and alternatives to -- treatment through a remote evaluation and consents to proceed with the evaluation remotely. Fadumo Hensley is a 29 year old female Patient presents with: Other: Patient wants to discuss FMLA and accommodations due to anxiety, PTSD, and back injury that causes pain-3 slip discs, deg. Disc disorder Had 2022 Mother horrifically from aggressive cancer Over [...] then she would like a referral to [facility] for their spine department - she has [...] ordered. 5) H/o abnormal pap - Sees maintenance manager. Due for follow-up. 6) Smoker - Pre-contemplative. [...] Z12.4 Recommend gynecology f/u - CONSULT TO GYNECOLOGY" Keaton Tracy MD ASSESSMENT/PLAN: 1. Degeneration of intervertebral disc of lumbar region with discogenic back pain - ICD9: 722.52, ICD10: M51.360 (primary diagnosis) Consult to spine medicine for [facility] spine [place] per request Further eval/ treatment with them In the mean time will provide with FMLA paper work: FMLA paperwork for the back- [...] ICD9: 300.4, ICD10: F41.8 Managed by psychiatry FMLA paperwork for the back- intermittent time off. 1-2 days a month for back Needs a wireless headset and equipment to allow for patient to stand to perform her job. Follow up with PCP Return in about 4 weeks (around 12/26/2024) for with Dr Tracy . Sooner if needs arise Patient agreeable to plan as above Aliyah Carter APRN.EDUCATION ADMINISTRATOR Spoke to Fadumo Hensley, confirmed patient is registered on [email or web address] and is prepared for their appointment. Confirmed the patient has updated medications, allergies, and questionnaires via [email or web address]. Informed patient if there is an issue with the connection, provider will send the patient a secure link. If provider is running late, patient should remain connected to the visit. Patient verbalized understanding. Kenya Reina LPN documented in this encounter [facility] 11-28-2024 Note HNO ID: [id number] Author: KENYA REINA LPN Service: ? Author Type: LICENSED NURSE Type: Progress Notes Filed: 12/03/2024 07:42 Note Text: Spoke to Fadumo Hensley, confirmed patient is registered on [email or web address] and is prepared for their appointment. Confirmed the patient has updated medications, allergies, and questionnaires via [email or web address]. Informed patient if there is an issue with the connection, provider will send the patient a secure link. If provider is running late, patient should remain connected to the visit. Patient verbalized understanding. Kenya Reina LPN [facility] 11-21-2024 Telephone encounter Note Fadumo is calling Keaton Tracy MD today to request letter written for parking placard by Dr Tracy to be faxed to [facility] in [place]. Pt printed letter from [email or web address] but staff at [facility] would not accept it without a signature. Dr Reese signed it for the pt and it was faxed to the [facility] [phone] Linda Farfan [facility] 11-21-2024 Miscellaneous Notes Fadumo is calling Keaton Tracy MD today to request letter written for parking placard by Dr Tracy to be faxed to [facility] in [place]. Pt printed letter from [facility] but staff at [facility] would not accept it without a signature. Dr Reese signed it for the pt and it was faxed to the [facility] [phone] Linda Farfan documented in this encounter [facility] 11-06-2024 Telephone encounter Note Items addressed in this encounter: [facility] Encounter Maribell Nicholas MA November 06, 2024 8:33 AM 8:33 AM [facility] 11-06-2024 Miscellaneous Notes Items addressed in this encounter: [facility] Encounter Maribell Nicholas MA November 06, 2024 8:33 AM 8:33 AM documented in this encounter [facility] 10-13-2024 Telephone encounter Note Attempted to call patient to verify that patient is requesting refill. Prescription originally sent 09/17/24. So patient want refilled? Sienna Heller LPN [facility] 10-13-2024 Miscellaneous Notes Attempted to call patient to verify that patient is requesting refill. Prescription originally sent 09/17/24. So patient want refilled? Sienna Heller LPN documented in this encounter [facility] 10-10-2024 Telephone encounter Note Prescription Refill Information [...] Reina LPN October 10, 2024 2:47 PM [facility] 10-10-2024 Miscellaneous Notes Prescription Refill Information The [...] 2024 2:47 PM documented in this encounter [facility] 10-06-2024 Telephone encounter Note Spoke with patient. Had dose increase on Lamictal a few weeks ago. Developed mouth lesion recently. Concerned about SJS. Description sounds like an aphthous ulcer. No other mucosal lesions, no rash. Lesion is painful. Feels otherwise well. Patient will reach out to prescribing provider for advice on when to restart.Lamictal. Keaton Tracy MD [facility] 10-06-2024 Miscellaneous Notes Spoke with patient. Had [...] taking Lamotrigine[facility]. Patient has a sore [...] have any questions, you can call Nurse returned telephone equipment appraiser back. Idania Loco RN Reason for Disposition Bloody crusts on lips or sores in mouth Sore in mouth; patient started taking Lamotrigine, prescribed by [facility] 09[facility]24. Patient has a sore [...] this medication prescribed by [facility] Lamotrigine - started 09/11/24 taking 25mg , 2 weeks in the dose was raised to 50mg 10. OTHER SYMPTOMS: Denies 11. : Denies [facility] 09/06 Protocols used: Allergic Reactions - Guideline Tdkytjeob-FPYAN-FD, Rash - Widespread On Zbhwc-EEGNY-MR documented in this encounter [facility] 10-05-2024 Telephone encounter Note Reason for Call: Sore in mouth; patient started taking Lamotrigine, prescribed by [facility] 09[facility]11[facility]24. Patient has a sore [...] have any questions, you can call Nurse returned telephone equipment appraiser back. Idania Loco RN Reason for Disposition Bloody crusts on lips or sores in mouth Sore in mouth; patient started taking Lamotrigine, prescribed by [facility] 09/11/24. Patient has a sore [...] this medication prescribed by [facility] Lamotrigine - started 09/11/24 taking 25mg , 2 weeks in the dose was raised to 50mg 10. OTHER SYMPTOMS: Denies 11. : Denies [facility] 09/06 Protocols used: Allergic Reactions - Guideline Dcadyxwvm-IZUNA-IT, Rash - Widespread On Fpzrk-FENCF-TR [facility] 09-16-2024 Telephone encounter Note Prescription Refill Information [...] Long LPN September 16, 2024 3:44 PM [facility] 09-16-2024 Miscellaneous Notes Prescription Refill Information The [...] 2024 3:44 PM documented in this encounter [facility] 09-08-2024 Telephone encounter Note Last OV 06/24/24. Pt states "I took out my control and can t find it. Can I have a new prescription sent to [facility]? " Requested Prescriptions Pending Prescriptions Disp Refills Etonogestrel-Ethinyl Estradiol (NUVARING) 0.12-0.015 mg/24 hr vaginal ring 1 Each 3 Sig: Use 1 Each vaginally as directed. INSERT ONE(1) RING VAGINALLY AND LEAVE IN PLACE FOR THREE WEEKS, THEN REMOVE FOR 1 WEEK. Tri Alonzo RN [facility] 09-08-2024 Miscellaneous Notes Last OV 06/24/24. Pt states "I took out my control and can t find it. Can I have a new prescription sent to [facility]? " Requested Prescriptions Pending Prescriptions Disp Refills Etonogestrel-Ethinyl Estradiol (NUVARING) 0.12-0.015 mg/24 hr vaginal ring 1 Each 3 Sig: Use 1 Each vaginally as directed. INSERT ONE(1) RING VAGINALLY AND LEAVE IN PLACE FOR THREE WEEKS, THEN REMOVE FOR 1 WEEK. Tri Alonzo RN documented in this encounter [facility] 09-05-2024 Physician Emergency department Note Patient is [...] status migrainosus, intractable Wilver Tarango PA-C [id number]/05/242113 [facility] Work Phone: 09-05-2024 Emergency department Note Patient [...] Tarango PA-C 09/05/242113 documented in this encounter [facility] Work Phone: 08-20-2024 Telephone encounter [...] Reina LPN August 20, 2024 10:54 AM [facility] 08-20-2024 Miscellaneous Notes Prescription Refill Information The [...] 2024 10:54 AM documented in this encounter [facility] 07-21-2024 Telephone encounter Note Prescription Refill Information [...] July 21, 2024 3:32 PM 3:32 PM [facility] 07-21-2024 Miscellaneous Notes Prescription Refill Information The last office visit in the department: 10/25/24 Does the patient have a future office [...] PM 3:32 PM documented in this encounter [facility] 06-24-2024 Instructions Varsha Vann MA - 06/24/2024 [...] your doctor's office. documented in this encounter [facility] 06-24-2024 Note HNO ID: [id number] Author: CARMELITA MILLAN MD Service: ? Author [...] amenable to office LEEP. Carmelita Millan MD [facility] 06-24-2024 History of Present illness Narrative [...] Carmelita Millan MD documented in this encounter [facility] 06-20-2024 Telephone encounter Note Prescription Refill Information [...] June 20, 2024 8:28 AM 8:28 AM [facility] 06-20-2024 Miscellaneous Notes Prescription Refill Information The [...] AM 8:28 AM documented in this encounter [facility] 05-27-2024 Note HNO ID: [id number] Author: JIL BAILEY APRN.EDUCATION ADMINISTRATOR Service: ? Author Type: Nurse Practitioner Type: Progress Notes Filed: 05/27/2024 13:29 Note Text: This note was created using InDemand Interpretingriter. Subjective Fadumo Hensley is a 28 year old female. HPI by patient: Fadumo Hensley is a 28 year old presenting to the office with the complaint of viral symptoms. Started approximately 3 days ago. Associated symptoms include cough, congestion, body aches, fatigue, and sore throat. Denies gi symptoms. Covid Immunization Dates Overdue - Covid-19 Vaccine () Overdue since 03/23/2024 09/03/2023 Imm Admin: COVID-19 vaccine, age 12+ yr, 2022- season (PFIZER-BIONTECH) 08/03/2022 Postponed until 08/03/2023 by Jocelyne Soliman LPN (Declined at this time) 07/06/2021 Imm Admin: COVID-19 original vaccine, age 12+ yr, monovalent ([id number] - PURPLE TOP) Sick contacts: yes. Smoking [...] Currently Types: Heroin, Marijuana Comment: Patient states "I have used multiple drugs in the past" Active Ambulatory Problems Attention deficit disorder Date [...] in in prior (more content not included)... [facility] 05-27-2024 History of Present illness Narrative This note was created using InDemand Interpretingriter. Subjective Fadumo Hensley is a 28 year old female. HPI by patient: Fadumo Hensley is a 28 year old presenting to the office with the complaint of viral symptoms. Started approximately 3 days ago. Associated symptoms include cough, congestion, body aches, fatigue, and sore throat. Denies gi symptoms. Covid Immunization Dates Overdue - Covid-19 Vaccine () Overdue since 03/23/2024 09/03/2023 Imm Admin: COVID-19 [...] Currently Types: Heroin, Marijuana Comment: Patient states "I have used multiple drugs in the past" Active Ambulatory Problems Attention deficit disorder Date [...] Date Noted: 04/13/2022 History of macrosomia in infant in prior , currently Date Noted: 04/13/2022 [...] cervical dysplasia 2014: History of suicide attempt No date: Juvenile [...] which included preparing to see the patient, rwmt-pg-[id number] patient care, completing clinical documentation, obtaining and/or reviewing separately obtained history, performing a medically appropriate examination, counseling and educating the patient/family/caregiver, and ordering medications, tests, or procedures. This patient encounter involved the screening or treatment of novel coronavirus infection (COVID-19). documented in this encounter [facility] 05-27-2024 Instructions Jil Bailey APRN.CNP - 05/27/2024 12:44 PM EST (J02.9) Sore [...] or other concerns. documented in this encounter [facility] 05-27-2024 Telephone encounter Note noted and agree. Carmelita Millan MD [facility] 05-27-2024 Miscellaneous Notes noted and agree. Carmelita Millan MD Pt states she has adverse reaction to Atarax-states she gets opposite reaction to this medication. States she has an Rx for Lorazepam and will just take this if feeling anxious and will plan to take her Tizanidine (she takes for back pain) prior to procedure. Tri Alonzo, RN my apologies, thought I sent tablet. Corrected. Carmelita Millan MD And EMB/ECC. Rx sent. Can take 1/2 tablet and 30 min take rest if desires. Carmelita Millan MD Patient notified. Scheduled colp 06/24. Asking if she can have something to relax her prior to the procedure because they are painful. Aware she would need a jinriksha driver and that RR returns tomorrow. Aliyah Khoury RN Pap atypical glandular cells, HPV neg. She will need another colp this year. Order filed. Angela Haq APRN.EDUCATION ADMINISTRATOR documented in this encounter [facility] 05-26-2024 Telephone encounter Note Pt states she has adverse reaction to Atarax-states she gets opposite reaction to this medication. States she has an Rx for Lorazepam and will just take this if feeling anxious and will plan to take her Tizanidine (she takes for back pain) prior to procedure. Tri Alonzo RN [facility] 05-26-2024 Telephone encounter Note my apologies, thought I sent tablet. Corrected. Carmelita Millan MD [facility] 05-26-2024 Telephone encounter Note And EMB/ECC. Rx sent. Can take 1/2 tablet and 30 min take rest if desires. Carmelita Millan MD [facility] 05-26-2024 Telephone encounter Note Patient notified. Scheduled colp 06/24. Asking if she can have something to relax her prior to the procedure because they are painful. Aware she would need a jinriksha driver and that RR returns tomorrow. Aliyah Highman, RN [facility] 05-26-2024 Telephone encounter Note Pap atypical glandular cells, HPV neg. She will need another colp this year. Order filed. Angela Haq APRN.EDUCATION ADMINISTRATOR [facility] 05-26-2024 Telephone encounter Note Prescription Refill Information [...] May 26, 2024 11:27 AM 11:27 AM [facility] 05-26-2024 Miscellaneous Notes Prescription Refill Information The [...] AM 11:27 AM documented in this encounter [facility] 05-22-2024 Telephone encounter Note Items addressed in this encounter: MyChart Encounter Maribell Nicholas MA May 22, 2024 7:59 AM 7:59 AM [facility] 05-22-2024 Miscellaneous Notes Items addressed in this encounter: MyChart Encounter Maribell Nicholas MA May 22, 2024 7:59 AM 7:59 AM documented in this encounter [facility] 05-19-2024 Note HNO ID: [id number] Author: ANGELA HAQ APRN.JAMES Service: ? Author Type: Nurse Practitioner Type: Progress Notes Filed: 05/19/2024 15:07 Note Text: Patient declined senior java developer. Fadumo presents for removal of IUD due [...] short term Pap collected today Angela Haq APRN.EDUCATION ADMINISTRATOR [facility] 05-19-2024 History of Present illness Narrative Patient declined senior java developer. Fadumo presents for removal of IUD due [...] Angela Haq APRN.CNP documented in this encounter [facility] 05-19-2024 Note HNO ID: [id number] Author: ?, ?, ? Service: ? Author Type: ? Type: Progress Notes Filed: 05/19/2024 14:31 Note Text: POPULATION HEALTH NAVIGATION OUTREACH Action/[facility] Support: Called pt to schedule an appt [...] Oswald Vega May 19, 2024 2:30 PM [facility] 05-19-2024 History of Present illness Narrative POPULATION HEALTH NAVIGATION OUTREACH Action/[facility] Support: Called pt to schedule an appt [...] 2024 2:30 PM documented in this encounter [facility] 05-19-2024 Note Patient Outreach (KEVIN FUNES) AYDENFADUMO Hardy ([id number]) 1995 F Date Time Provider Department 05/19/24 NO PCP NETNAV During your visit today, we recorded the following information about you: Oswald Vega 05/19/2024 2:31 PM Signed POPULATION HEALTH NAVIGATION OUTREACH Action/[facility] Support: Called pt to schedule an appt [...] Date Reviewed: 03/28/2024 Reviewed by: Kaylen Morrow, RN - Fully Assessed Prescriptions as of 05/19/2024 [...] Encounter Status:Closed by OSWALD VEGA on 05/19/24 [facility] 05-16-2024 Note HNO ID: [id number] Author: KEATON TRACY MD Service: ? Author Type: Physician Type: Progress Notes Filed: 08/08/2024 11:49 Note Text: Appointment cancelled/rescheduled or patient did not log in for appt. Keaton Tracy MD [facility] 05-16-2024 History of Present illness Narrative Appointment cancelled/rescheduled or patient did not log in for appt. Keaton Tracy MD documented in this encounter [facility] 05-16-2024 Note HNO ID: [id number] Author: KEATON TRACY MD Service: ? Author Type: Physician Type: Progress Notes Filed: 05/16/2024 12:39 Note Text: Telemedicine Visit - Distance Health Virtual Visit Note Patient seen on [employer] video visit platform. Location of patient: [place] I have communicated my name and active licensure. The patient's identity and physical location were verified at the time of this visit. Either the patient or their legal indirect sales representative has been informed of the risks [...] ordered. 5) H/o abnormal pap - Sees maintenance manager. Due for follow-up. 6) Smoker - Pre-contemplative. [...] Types: Heroin, Ma (more content not included)... [facility] 05-16-2024 History of Present illness Narrative Telemedicine Visit - Distance Health Virtual Visit Note Patient seen on [employer] video visit platform. Location of patient: [place] I have communicated my name and active licensure. The patient's identity and physical location were verified at the time of this visit. Either the patient or their legal indirect sales representative has been informed of the risks [...] ordered. 5) H/o abnormal pap - Sees maintenance manager. Due for follow-up. 6) Smoker - Pre-contemplative. [...] elevated. Supplies and referrals ordered. Sulma Bartholomew, OCTAIVO.CNM Generalized anxiety disorder GERD (gastroesophageal reflux disease) [...] Currently Types: Heroin, Marijuana Comment: Patient states "I have used multiple drugs in the past" Video Exam (Examination performed via Video enabled [...] Keaton Tracy MD documented in this encounter [facility] 04-29-2024 Note Addended by: KEATON TRACY on: 04/29/2024 02:52 PM Modules accepted: Orders [facility] 04-29-2024 Miscellaneous Notes Addended by: KEATON TRACY on: 04/29/2024 02:52 PM Modules accepted: Orders Items addressed in this encounter: MyChart Encounter Maribell Nicholas MA April 29, 2024 1:35 PM 1:35 PM Patient calling to check on request. Please review [email or web address] message and notify patient if request can or cannot be accommodated. Zuleyma Castrejon documented in this encounter [facility] 04-29-2024 Telephone encounter Note Items addressed in this encounter: MyChart Encounter Maribell Nicholas MA April 29, 2024 1:35 PM 1:35 PM [facility] 04-29-2024 Telephone encounter Note Patient calling to check on request. Please review [employer] message and notify patient if request can or cannot be accommodated. Zuleyma Castrejon [facility] 04-16-2024 Emergency department Note Attempted to find patient at this time, not to be found in room. Appears patient eloped from ED at this time, aware [facility] 04-16-2024 Emergency department Note Attempted to find patient at this time, not to be found in room. Appears patient eloped from ED at this time, aware documented in this encounter [facility] 04-15-2024 Emergency department Note Chief Complaint [...] disease Mother Verna Fortune Hypertension Father Cristhian Fortune Kidney disease Father Cristhian Fortune Diabetes Father Cristhian Fortune Heart disease Father Cristhian Fortune Other (skin scalp cancer) Sister Heart disease [...] Aliyah Betancourt 04/15/2024 2:51 PM Dictation workstation: [id number] Medical Decision Making ED COURSE: This patient [...] Regan 04/15/24 1645 documented in this encounter [facility] Work Phone: 04-15-2024 Physician Emergency [...] Aliyah Betancourt 04/15/2024 2:51 PM Dictation workstation: [id number] Medical Decision Making ED COURSE: This patient [...] #1 dental abscess YAMILET Regan 04/15/24 1645 [facility] Work Phone: 04-15-2024 History of Present illness Narrative DISTANCE HEALTH VISIT This Team Access Model visit is a virtual encounter. It required patient-provider interaction for the medical decision making as documented below. I have communicated my name and active licensure. The patient's identity and physical location were verified at the time of this visit. Either the patient or their legal indirect sales representative has been informed of the risks [...] Koki Wheatley PA-C documented in this encounter [facility] 04-11-2024 Note . MICRO - Microbiology PROCEDURE: [...] Locations *1: This test was performed at: [address], [facility] , [facility] 04-11-2024 Note . MICRO - Microbiology PROCEDURE: [...] Locations *1: This test was performed at: [address], [facility] , [facility] 04-11-2024 Hospital Discharge instructions Patient Education 04/10/2024 [...] diarrhea. Sometimes it causes generalized symptoms like "aching all over," feeling tired, loss of energy, or loss [...] the smoke from others. You may use utiu-lfm-grtxbci acetaminophen or ibuprofen for fever, muscle aching, [...] body and be dangerous to your health. Hhnt-hbr-fdrxwxp remedies won't shorten the length of the [...] or as directed by your healthcare provider [phone] [employer]. [address] [place] [address], [place] [address]. All rights reserved. This information is not intended as a substitute for professional medical care. Always follow your healthcare professional's instructions. Follow Up Care 04/10/2024 20:07:32 With:Call Physician Referral Address:Unknown When:2-4 days [facility] 04-10-2024 Note Discharge Instructions Thank you for allowing [facility] to assist you with your healthcare needs. [...] diarrhea. Sometimes it causes generalized symptoms like "aching all over," feeling tired, loss of energy, or loss [...] the smoke from others. You may use gktk-ocz-vysmfqh acetaminophen or ibuprofen for fever, muscle aching, [...] body and be dangerous to your health. Mpit-fid-oeecjem remedies won't shorten the length of the [...] or as directed by your healthcare provider [phone] [employer]. [address] [place] [address]. All rights reserved. This information is not intended as a substitute for professional medical care. Always follow your healthcare professional's instructions. Additional Information VACCINATE! IT SAVES LIVES! Members of the community who have not yet received the COVID-19 vaccine and would like to receive it can visit one of [facility] vaccine clinics. There are many vaccine clinic locations within the [facility]. For locations and available times, please visit www.gettheshot.coronavirus.[place].gov /. It is important to note that some COVID mobile vaccine clinics are held outdoors and may be canceled in rainy or stormy conditions. To learn more about pediatric vaccinations (ages 5-11), we invite you to visit the [facility] webpage. https://www.[facility].org/page s/7787-Priso-Igiymglabal-Frequently -Asked-Questions.html To learn more about the COVID-19 vaccine, we invite you to visit the CDC website for a list of frequently asked questions. https://www.cdc.gov/coronavirus/201 9-ncov/vaccines/faq.html [facility] Patient Portal Access Instructions: Stay connected with your healthcare team and access your personal medical information anytime with the [facility] Patient Portal. If you would like a full copy of your medical records please contact the [facility] Medical Records Department Sunday through Sunday between 8a.m. and 4:30p.m. Please follow the directions below to access the portal: 1.Access the email account you provided upon registration to the [facility].2.Look for an invitation email from [facility].3.Open the email and access the invitation link: Accept Invitation to [facility]4.Fill in the required fritz to create your account. Sign into [email or web address] with your username and password that you [...] you will allow to register on the [facility] Patient Portal for access to your information. You can also access the [facility] Patient Portal on the Povo. Simply click on "Health Records" under "Health Data" and then click on the FreshT logo. HOW TO SAFELY DISPOSE OF PRESCRIPTION [...] Call your local pharmacy or go to http://BeeFirst.in.Sin[employer]'s supply chain/6Q4Ab0t to find one close to you.3.Make use of household items: Use cat litter or old coffee grounds to dispose medications if other options are not available. Mix your drugs with these household products, seal them in an airtight container and throw it into the garbage. Call [facility]: [phone] to be sure your drugs can be [...] aware that I should contact my doctor. Patient/Plant Controller Signature: ____ Date/Time: Relationship to Patient: __ Witness Name/Signature: Date/Time: [facility] 04-10-2024 Note ORIGINAL EXAMINATION: CT OF THE [...] Sign Date: 04/10/2024 10:36:06 PM Ordering Provider: [facility] 04-10-2024 Note ORIGINAL EXAMINATION: ONE XRAY VIEW [...] Sign Date: 04/10/2024 9:57:53 PM Ordering Provider: [facility] 04-10-2024 History of Present illness Narrative Patient [...] of irregular heartbeat. documented in this encounter [facility] 04-10-2024 Evaluation + Plan note Diagnostic Tests PendingLactic Acid 04/10/24Blood Culture (bacterial) 04/10/24Blood Culture (bacterial) 04/10/24 [facility] 04-01-2024 History of Present illness Narrative Telemedicine Visit - Distance Health Virtual Visit Note Patient seen on [employer] Video Visit platform. Location of patient: [place] I have communicated my name and active licensure. The patient's identity and physical location were verified at the time of this visit. Either the patient or their legal indirect sales representative has been informed of the risks and benefits of -- and alternatives to -- treatment through a remote evaluation and consents to proceed with the evaluation remotely. Fadumo Hensley is a 28 year old female presents complaining of back pain. Pt. With chronic back pain, usually sees [facility] in [place]. Needs Injections but cannot make the physical therapy appointments needed to qualify. Pt. Needs refill of Tizandine and consult to [facility] PAST MEDICAL HISTORY No date: Appendicitis 09/26/2019: [...] osteochondrosis of lower extremity, excluding foot Comment: 2005, resolved No date: Kidney stones 05/26/2011: Migraine headache No date: other Comment: Sever's Disease, 2007, resolved 01/27/2010: Other acne No date: Pain in joint, site unspecified Comment: AC joint tear, 2006 04/18/2012: Patient requested diagnostic testing Comment: 04/18/2012 Patient [...] UTERI CONIZA LP ELCTRO EXCI Comment: at [facility]-Dr. Millan 01/01/2010: PAST SURGICAL HISTORY OF Comment: Removal of 4 [place] Teeth No date: PAST SURGICAL HISTORY OF [...] Currently Types: Heroin, Marijuana Comment: Patient states "I have used multiple drugs in the past" Current Outpatient Medications Medication Sig tiZANidine (ZANAFLEX) [...] care - All questions answered Rylan Nicholas APRN.EDUCATION ADMINISTRATOR documented in this encounter [facility] 03-27-2024 History of Present illness Narrative I have communicated my name and active licensure. The patient's identity and physical location were verified at the time of this visit. Either the patient or their legal indirect sales representative has been informed of the risks and benefits of -- and alternatives to -- treatment through a remote evaluation and consents to proceed with the evaluation remotely. PATIENT TELEHEATH PROGRESS NOTE SERVICE DATE: 03/27/2024 SERVICE TIME: 11am Subjective HISTORY: Pt underwent an appi at [facility] 03/15. Exp chest pain and was kept in hospital for evaluation. Reports EKG was abnormal ( cannot see results) Pt reads report to me: Sinus rhythm. Short [place] interval RBBB. St elevation. Probable early repolarization. States she had echo that was normal. Reports she was to follow with cardiology. Wants to see [facility] cardiology. ( I cannot see these notes today) She is not having any further chest pain. Is concerned because both her parents of heart disease. Father at age 64 "heart failure". Mother age 65 "heart failure" Also c/o dental pain. Is on augmentin [...] TIME: 11:15 AM documented in this encounter [facility] 03-25-2024 Hospital Discharge instructions Patient Education 03/24/2024 [...] Swelling, pain or redness in one leg [phone] [employer]. [address] [place] [address], [place] [address]. All rights reserved. This information is not intended as a substitute for professional medical care. Always follow your healthcare professional's instructions. Follow Up Care 03/24/2024 20:12:10 With:Follow up with primary care provider Address:Unknown When:2-4 days [facility] Will 03-24-2024 Note Discharge Instructions Thank you for allowing [facility] to assist you with your healthcare needs. [...] Swelling, pain or redness in one leg [phone] [employer]. [address] [place] [address], [place] [address]. All rights reserved. This information is not intended as a substitute for professional medical care. Always follow your healthcare professional's instructions. Additional Information VACCINATE! IT SAVES LIVES! Members of the community who have not yet received the COVID-19 vaccine and would like to receive it can visit one of [facility] vaccine clinics. There are many vaccine clinic locations within the [facility]. For locations and available times, please visit www.gettheshot.coronavirus.[place].gov /. It is important to note that some COVID mobile vaccine clinics are held outdoors and may be canceled in rainy or stormy conditions. To learn more about pediatric vaccinations (ages 5-11), we invite you to visit the [facility] webpage. https://www.akNorthern Brewers.org/page s/8974-Foxem-Ilhcmjzfbjg-Frequently -Asked-Questions.html To learn more about the COVID-19 vaccine, we invite you to visit the CDC website for a list of frequently asked questions. https://www.cdc.gov/coronavirus/201 9-ncov/vaccines/faq.html [facility] Patient Portal Access Instructions: Stay connected with your healthcare team and access your personal medical information anytime with the [facility] Patient Portal. If you would like a full copy of your medical records please contact the [facility] Medical Records Department Sunday through Sunday between 8a.m. and 4:30p.m. Please follow the directions below to access the portal: 1.Access the email account you provided upon registration to the hospital.2.Look for an invitation email from [facility].3.Open the email and access the invitation link: Accept Invitation to [facility]4.Fill in the required fritz to create your account. Sign into www.[email or web address] with your username and password that you [...] you will allow to register on the [facility] Patient Portal for access to your information. You can also access the [facility] Patient Portal on the Povo. Simply click on "Health Records" under "Health Data" and then click on the FreshT logo. HOW TO SAFELY DISPOSE OF PRESCRIPTION [...] Call your local pharmacy or go to http://BeeFirst.in.[employer]'s supply chain/5M7Ej7h to find one close to you.3.Make use of household items: Use cat litter or old coffee grounds to dispose medications if other options are not available. Mix your drugs with these household products, seal them in an airtight container and throw it into the garbage. Call [facility]: [phone] to be sure your drugs can be [...] aware that I should contact my doctor. Patient/Plant Controller Signature: ____ Date/Time: Relationship to Patient: __ Witness Name/Signature: Date/Time: [facility] 03-24-2024 Note ORIGINAL EXAMINATION: CTA OF THE [...] Date: 03/24/2024 10:20:52 PM Ordering Provider[facility] 03-24-2024 Note ORIGINAL EXAMINATION: ONE XRAY VIEW [...] Date: 03/24/2024 10:13:46 PM Ordering Provider: VERO [facility] 03-24-2024 Note Sinus rhythm Borderline short IL interval Right bundle branch block ST elev, probable normal early repol pattern Electronic Signature: VERO HEATH MD 03/24/2024 20:32:08 [facility] 03-18-2024 Telephone encounter Note Linked to appointment. Aliyah Khoury RN [facility] 03-18-2024 Miscellaneous Notes Linked to appointment. Aliyah Khoury RN done. thanks. Carmelita Millan MD Patient called the office. Appointment scheduled. Please file IUD removal order to attach to her visit. Thank you. Aliyah Khoury RN documented in this encounter [facility] 03-18-2024 Telephone encounter Note done. thanks. Carmelita Millan MD [facility] 03-18-2024 Telephone encounter Note Patient called the office. Appointment scheduled. Please file IUD removal order to attach to her visit. Thank you. Aliyah Khoury RN [facility] 03-17-2024 Telephone encounter Note Reason for Call: [...] 1-10 and/or behavior (grimace, crying, etc.) 7/10; 10/10 Location of pain? lorna chest, shoulder and neck on the right side Description of pain? tense; sharp stabbing pain, "frozen with pain" Duration of pain? constant with intermittent sharp pain Pain relief methods/effectiveness? laying down makes it worse; standing helps some Negative: Difficult to awaken or acting confused (e.g., disoriented, slurred speech) dizzy Protocols used: Chest Ywyc-GJJNP-JC [facility] 03-17-2024 Miscellaneous Notes Reason for Call: appendix [...] 1-10 and/or behavior (grimace, crying, etc.) 7/10; 10/10 Location of pain? lorna chest, shoulder and neck on the right side Description of pain? tense; sharp stabbing pain, "frozen with pain" Duration of pain? constant with intermittent sharp pain Pain relief methods/effectiveness? laying down makes it worse; standing helps some Negative: Difficult to awaken or acting confused (e.g., disoriented, slurred speech) dizzy Protocols used: Chest Gyxu-AJBTQ-PK documented in this encounter [facility] 03-16-2024 Discharge summary Date of Service 03/16/2024 Discharge Diagnosis Appendicitis (K37 - ICD-10-CM) Post-op pain (G89.18 - ICD-10-CM) S/P laparoscopic appendectomy (Z90.49 - ICD-10-CM) Hospital Course This patient is a 28-year-old female with past medical history of kidney stones requiring lithotripsy who presented to [facility] emergency room for complaint of abdominal pain found to have acute appendicitis after undergoing a CT scan of abdomen pelvis. Patient was transferred to [facility] for definitive care. She was taken to the operating room by Dr. Ellis where she underwent a laparoscopic appendectomy. Patient complained of chest pain postoperatively and was transferred to [facility] with a consult to cardiology after surgery. [...] with Dr. Ellis in 2 weeks. Allergies yrTE Procedures Laparoscopic appendectomy Consults Consult to Physician [...] analgesia (pain medication.). Concern encouraged to take befd-pdu-nwnalss stool softeners (such as Colace) and over [...] Up with JUAN ELLIS MD, Surgery Where:[address] [facility] [address] [place] [address]- [phone] Additional Information: Please call the office on [...] Time Spent 20mins I have reviewed the [place] Automated Rx Reporting System (OARRS) report for [...] by DILLON COLE on 03/16/2024 10:30 AM [facility] 03-16-2024 Surgery Hospital Progress note Date of [...] chest pain postoperatively and was transferred to [facility] with a consult to cardiology after surgery. [...] by DILLON COLE on 03/16/2024 10:26 AM [facility] 03-16-2024 Hospital Discharge instructions Patient Education 03/16/2024 [...] Follow these instructions at home: Medicines Take vpjs-euc-deqzchc and prescription medicines only as told by [...] pain is severe. ?Do not take other jryo-qmg-zryzvun pain medicines in addition to prescription pain [...] grains, and fresh fruits and vegetables. ?Take wdyo-ebu-uwbqdhx or prescription medicines. ?Limit foods that are [...] or you are no longer ill. Take kbfa-dze-bpgolpt and prescription medicines only as told by [...] 07/23/2016 Document Revised: 11/24/2019 Document Reviewed: 11/24/2019 [employer] Patient Education 2020 [employer]. 03/16/2024 10:37:00 Appendicitis, Adult, Jllq-ld-Wsjm Appendicitis, Adult The appendix is a tube [...] of your cut from surgery. Medicines Take pddl-jkl-dbqvurb and prescription medicines only as told by [...] keep your pee (urine) pale yellow. ?Take tfuq-zor-jgokzgu or prescription medicines. ?Eat foods that are [...] 09/30/2012 Document Revised: 12/25/2018 Document Reviewed: 12/25/2018 [employer] Patient Education 2020 [employer]. Follow Up Care 03/14/2024 19:25:05 With:JUAN ELLIS MD, Surgery Address: [address] [place] [address] [address] [place] [address]- [phone] When: Unknown Comments:Please call the office on Sunday for follow-up appointment in 2 weeks. [facility] 03-16-2024 Note Discharge Instructions Thank you for allowing [facility] to assist you with your healthcare needs. [...] analgesia (pain medication.). Concern encouraged to take eiog-tsm-qdchsxh stool softeners (such as Colace) and over the counter laxatives (such as Miralax) as needed for constipation. Additional medications that can be taken for operative constipation including milk of magnesia and Metamucil Follow Up Appointments Follow Up with JUAN ELLIS MD, Surgery Where:[address] [facility] [address] [place] [address]- [phone] Additional Information: Please call the office on [...] laparoscopic appendectomy Duration: 3 Days Pickup at [facility]/pharmacy #[id number] Unchanged tiZANidine (tiZANidine 4 mg oral tablet) 1 tab(s) TAKE 1/ 2 TO 1 TABLET BY MOUTH 3 TIMES A DAY NEEDED Pharmacy Information [facility]/pharmacy #[id number]: [address] [place], [place] [id number] [phone] Please take this list to your next [...] were not tolerated. Extended-release oxycodone is for fyyzil-qlh-bdikd treatment of severe and chronic pain that [...] by your doctor. Stop taking all other xdsgjc-sxq-ilesg opioid pain medicines when you start taking [...] may report side effects to FDA at 1-930-POV-9222. What other drugs will affect oxycodone? You [...] may affect oxycodone. This includes prescription and ftlz-eoy-bwlnbww medicines, vitamins, and herbal products. Not all [...] to ensure that the information provided by [employer]. ('Multum') is accurate, up-to-date, and complete, but no guarantee is made to that effect. Drug information contained herein may be time sensitive. Connectv.com information has been compiled for use by healthcare practitioners and consumers in the [place] and therefore Connectv.com does not warrant that uses outside of the [place] are appropriate, unless specifically indicated otherwise. Connectv.[employer]'s drug information does not endorse drugs, diagnose patients or recommend therapy. Arktis [employer] Detect[employer]s drug information is an informational resource designed [...] effective or appropriate for any given patient. [employer] does not assume any responsibility for any aspect of healthcare administered with the aid of information Connectv.com provides. The information contained herein is not intended to cover all possible uses, directions, precautions, warnings, drug interactions, allergic reactions, or adverse effects. If you have questions about the drugs you are taking, check with your doctor, nurse or pharmacist. Copyright 1400-4369 [employer]. Version: 17.. Revision Date: 08/14/2023. Education Materials [...] Follow these instructions at home: Medicines Take hvpp-otj-mbfqmgw and prescription medicines only as told by [...] is severe. ? Do not take other mpng-zjw-aenlhtk pain medicines in addition to prescription pain [...] and fresh fruits and vegetables. ? Take qtwu-pxk-iqbonua or prescription medicines. ? Limit foods that [...] or you are no longer ill. Take jdcm-lcj-hothhbu and prescription medicines only as told by [...] 07/23/2016 Document Revised: 11/24/2019 Document Reviewed: 11/24/2019 ElsePrivia Patient Education 2020 [employer] Appendicitis, Adult The appendix is a [...] of your cut from surgery. Medicines Take rycl-bqe-wwltuvi and prescription medicines only as told by [...] your pee (urine) pale yellow. ? Take onkv-tbq-mpbidwm or prescription medicines. ? Eat foods that [...] 09/30/2012 Document Revised: 12/25/2018 Document Reviewed: 12/25/2018 [employer] Patient Education 2020 [employer] Additional Information VACCINATE! IT SAVES LIVES! Members of the community who have not yet received the COVID-19 vaccine and would like to receive it can visit one of [facility] vaccine clinics. There are many vaccine clinic locations within the [facility]. For locations and available times, please visit https://gettheshot.coronavirus.[place] .gov/. It is important to note that some COVID mobile vaccine clinics are held outdoors and may be canceled in rainy or stormy conditions. To learn more about pediatric vaccinations (ages 5-11), we invite you to visit the [facility] webpage. https://www.[facility].org/page s/7333-Jeycd-Asuzoufabmv-Frequently -Asked-Questions.html To learn more about the COVID-19 vaccine, we invite you to visit the CDC website for a list of frequently asked questions.https://www.cdc.gov/coron avirus/2019-ncov/vaccines/faq.html [facility] Patient Portal Access Instructions: Stay connected with your healthcare team and access your personal medical information anytime with the [facility] Patient Portal. Please follow the directions below to create your [facility] account: 1.Access the email account you provided upon registration to the hospital/physician office.2.Look for an invitation email from [facility].3.Open the email and access the invitation link: Accept Invitation to [facility].4.Fill in the required fritz to create your account. To access your account, visit [employer]/Ifeelgoodshart. Click the blue button labeled "Access Patient Portal" and then log in with the username [...] you will allow to register on the [facility] Patient Portal for access to your information. You can also access the [facility] Patient Portal on the [facility] berna. Simply click on "Patient Portal" and then log into your account. If you would like to receive a full copy of your medical records, please contact the [facility] Medical Records Department by calling [phone], Sunday through Sunday between 8 a.m. and [...] Call your local pharmacy or go to [email or web address]'s supply chain/[email or web address] to find one close to you.3.Make use of household items: Use cat litter or old coffee grounds to dispose medications if other options are not available. Mix your drugs with these household products, seal them in an airtight container and throw it into the garbage. Call [facility]: [phone] to be sure your drugs can be [...] Education Materials Acute Pain, Adult Appendicitis, Adult, Lgvg-aq-Lxkq Medication Leaflets oxycodone My discharge plan and instructions have been reviewed and explained to me and IAYDEN JESSIE understand my current condition and have read and understand these discharge instructions. I have received a written copy of the plan/instructions. If I have questions, I am aware that I should contact my doctor. Patient/Plant Controller Signature: ____ Date/Time: Relationship to Patient: __ Witness Name/Signature: Date/Time: [facility] 03-16-2024 Discharge summary Date of Service 03/16/2024 Discharge Diagnosis Appendicitis (K37 - ICD-10-CM) Post-op pain (G89.18 - ICD-10-CM) S/P laparoscopic appendectomy (Z90.49 - ICD-10-CM) Hospital Course This patient is a 28-year-old female with past medical history of kidney stones requiring lithotripsy who presented to [facility] emergency room for complaint of abdominal pain found to have acute appendicitis after undergoing a CT scan of abdomen pelvis. Patient was transferred to [facility] for definitive care. She was taken to the operating room by Dr. Ellis where she underwent a laparoscopic appendectomy. Patient complained of chest pain postoperatively and was transferred to [facility] with a consult to cardiology after surgery. [...] analgesia (pain medication.). Concern encouraged to take zjnp-pit-mqrbozy stool softeners (such as Colace) and over [...] Up with JUAN ELLIS MD, Surgery Where:[address] [facility] [address] [facility] [place] [address]- [phone] Additional Information: Please call the office on [...] Time Spent 20mins I have reviewed the [place] Automated Rx Reporting System (OARRS) report for [...] by DILLON COLE on 03/16/2024 10:30 AM [facility] 03-16-2024 Surgery Hospital Progress note Date of [...] chest pain postoperatively and was transferred to [facility] with a consult to cardiology after surgery. [...] by DILLON COLE on 03/16/2024 10:26 AM [facility] 03-16-2024 Note Exam Date Time Procedure Performing Provider Status 03/16/24 7:31 AM Echocardiogram, Adult - CV Auth (Verified) [facility] 08-24-2024 NoteSINUS RHYTHM RIGHT BUNDLE BRANCH BLOCK Electronic Signature: BRIAN DIEHL MD 03/16/2024 08:09:07[facility] 08-24-2024 Cardiology Consult note Date of Service [...] BRIAN DIEHL MD on 03/15/2024 04:47 PM [facility] [id number] Anesthesiology Consult note Patient: FADUMO HENSLEY Age: [...] MICHELE JOSEPH DO on 03/15/2024 02:15 PM [facility] [id number] Evaluation + Plan noteExtracted from: Title:History and Physical Author:SONAL COLE APRN-EDUCATION ADMINISTRATOR Date:03/15/24 1. Appendicitis This patient is a 28-year-old female with a past medical history of kidney stones requiring lithotripsy who presented to [facility] emergency room with complaints of periumbilical abdominal pain found to have uncomplicated acute appendicitis who was transferred to [facility] for definitive care. Vital signs, laboratory data [...] significant for kidney stones who presented to [facility] emergency room with right lower quadrant pain [...] IV fluids Antibiotics Likely home after surgery. [facility] 08-24-2024 Anesthesiology Consult note 28 y/o female [...] MICHELE JOSEPH DO on 03/15/2024 01:07 PM [facility] [id number] Note ORIGINAL EXAMINATION: ONE XRAY VIEW OF [...] Sign Date: 03/15/2024 12:09:01 PM Ordering Provider: [facility]08-24-2024 NoteSinus rhythm Right bundle branch block Electronic Signature: BRIAN DIEHL MD 03/15/2024 16:45:33[facility] 08-24-2024 Anesthesiology Consult note Patient: FADUMO HENSLEY [...] TID Problem list: Medical / SNOMED CT [id number] / Confirmed, Active Problems (1) Histories Past [...] Charted Temp Oral37.1 DegC (MAR 15 07:58) YKY238 mmHg (MAR 15 07:58) DBP64 mmHg (MAR 15 07:58) BMI28.69 (MAR 15 02:06) Measurements from flowsheet : Measurements 03/15/2024 2:06 EDT Body Mass Index 28.69 kg/m2 03/14/2024 20:49 EDT Height 170.2 cm Height in inches 67 inch(es) Admission Weight 83.1 kg Weight Lbs 182.8 lb [place] Body Weight 61.62 kg BSA Admission 1.95 Body Mass Index 28.69 kg/m2 03/14/2024 17:17 EDT Height 170.2 cm Admission Weight 81.8 kg [place] Body Weight 61.62 kg Pain assessment: Pain [...] evident Teaching Method Explanation Preferred Spoken Language Kittitian Preferred Written Language Kittitian Diagnostic Procedures Education Preprocedure/surgical instructions Mechanical VTE Prophylaxis Education Purpose of Mechanical VTE Prophylaxis Teaching Evaluation Needs reinforcement 03/15/2024 9:55 EDT SN - Assess - LOC Alert, Awake SN - Assess - Orientation Oriented X 3 SN - Assess - Post-op Skin Integrity Intact/Dry 03/15/2024 9:55 EDT SN - SC - Medication bupivacaine 0.5% PF Kourtney 30 mL SN - SC - Route of Administration Local 03/15/2024 9:54 [...] Anesthesiologist SN - CAt - Role Performed SALESPERSON HEARING AIDS SN - CAt - Role Performed Service Planner 1 SN - CAt - Role Performed Scrub 1 SN - CAt - Role Performed Manager Brand 1 03/15/2024 9:53 EDT Accompanied By Staff [...] Type 0-10 Pain scale Nail Bed Color Nina Capillary Refill < 2 seconds Heart Sounds [...] intact Skin Turgor Elastic Mucous Membrane Color Nina Mucous Membrane Description Moist Sensory Perception Sumeet [...] evident Teaching Method Explanation Preferred Spoken Language Kittitian Preferred Written Language Kittitian PRN Medication Effectiveness Evaluation PRN Medication Effectiveness [...] EDT Designated Person #1 We May Share CELESTE Banegas [phone] Designated Person #1 Relationship Spouse Privacy Restrictions Requested None Height 170.2 cm Height in inches 67 inch(es) Admission Weight 83.1 kg Weight Lbs 182.8 lb [place] Body Weight 61.62 kg BSA Admission 1.95 [...] evident Teaching Method Explanation Preferred Spoken Language Kittitian Preferred Written Language Kittitian Teaching Evaluation Verbalizes/Nonverbally indicates understanding Safety Brochure Information Reviewed Yes [facility]ill Sanchez Video Viewed Yes Information Given by Patient Patient's Current Physicians Dr Titus Belongingjennifer At Bedside Cell phone, Pants, Shoes, Socks, [...] Pressure Non-Invasive 69 mmHg Nail Bed Color Nina Capillary Refill < 2 seconds Heart Rhythm [...] Elimination Voiding, no difficulties All Extremity Description Nina, Normal for ethnicity Skin Temperature Warm Temperature All Extremities Warm Skin Description Nina, Normal for ethnicity Skin Integrity Intact Sensory [...] explained to patient, Risks and benefits explained [facility] indirect sales representative Transferring Physician TORI ANTOINE DO Receiving Facility Accepting Transfer [facility] Accepting Physician Dr Ellis Date/Time Physician Accepted [...] Negative QC PRGUP Positive 03/14/2024 17:23 EDT [facility] Note 03/14/2024 17:19 EDT Status [...] Height 170.2 cm Admission Weight 81.8 kg [place] Body Weight 61.62 kg Temperature Oral 36.7 [...] No Weight Loss No Preferred Spoken Language Kittitian Preferred Written Language Kittitian Tracking Group ED AO Tracking Group Tracking [...] Count 0 EA . Assessment and Plan [place] Society of Anesthesiologists (ASA) physical status classification: [...] MICHELE JOSEPH DO on 03/15/2024 10:08 AM [facility] [id number] History and physical note Date of Service 03/15/2004 Chief Complaint Abdominal pain History of Present Illness This is a shared split visit to myself and Dr. Ellis This patient is a 28-year-old female with past medical history of kidney stones requiring lithotripsy who presented to [facility] emergency room for complaints of right mid [...] of [facility] and [facility] to [facility] [...] kidney stones requiring lithotripsy who presented to [facility] emergency room with complaints of periumbilical abdominal pain found to have uncomplicated acute appendicitis who was transferred to [facility] for definitive care. Vital signs, laboratory data [...] by DILLON COLE on 03/15/2024 07:54 AM [facility] [id number] History and physical note Date of Service 03/15/2004 Chief Complaint Abdominal pain History of Present Illness This is a shared split visit to myself and Dr. Ellis This patient is a 28-year-old female with past medical history of kidney stones requiring lithotripsy who presented to [facility] emergency room for complaints of right mid [...] of her CT [facility] and [facility] to [facility] [...] kidney stones requiring lithotripsy who presented to [facility] emergency room with complaints of periumbilical abdominal pain found to have uncomplicated acute appendicitis who was transferred to [facility] for definitive care. Vital signs, laboratory data [...] by DILLON COLE on 03/15/2024 07:54 AM [facility] [id number] Note ORIGINAL EXAMINATION: CT OF THE ABDOMEN [...] Sign Date: 03/14/2024 6:47:11 PM Ordering Provider: [facility]05-17-2024 History of Present illness Narrative* Alyson Harrell MA - 12/07/2023 11:04 AM EDT Items addressed in this encounter: Virtual Visit Pre Check In Attempted to reach patient no answer JUS Harrell MA December 07, 2023 11:04 AM 11:04 AM * Keaton Tracy MD - 11/22/2023 12:31 PM EDT Telemedicine Visit - Distance Health Virtual Visit Note Patient seen on Stazoo[employer] video visit platform. Location of patient: [place] I have communicated my name and active licensure. The patient's identity and physical location wereverified at the time of this visit. Either the patient or their legal indirect sales representative has been informed of the risks [...] ordered. 5) H/o abnormal pap - Sees maintenance manager 6) Smoker - Pre-contemplative. 7) Chronic back [...] Yes Types: Heroin, Marijuana Comment: Patient states "I have used multiple drugs in the past" Video Exam (Examination performed via Video enabled [...] July. Keaton Tracy MD [facility] Telephone encounter Note * Telephone Encounter - Maribell Nicholas MA - 11/30/2023 1:40 PM EDT Forms sent to patient via Sonos. Items addressed in this encounter: MyChart Encounter Maribell Nicholas MA November 30, 2023 1:41 PM 1:41 PM [facility]05-10-2024 Miscellaneous Notes* Telephone Encounter - Maribell Nicholas MA - 11/30/2023 1:40 PM EDT Forms sent to patient via Sonos. Items addressed in this encounter: MyChart Encounter Maribell Nicholas MA November 30, 2023 1:41 PM 1:41 PM * Telephone Encounter - Maribell Nicholas MA - 11/28/2023 1:03 PM EDT Forms faxed to Dr. Tracy Items addressed in this encounter: MyChart Encounter Fax/Forms Maribell Nicholas MA November 28, 2023 1:45 PM 1:45 PM documented in this encounterU[facility]05-08-2024 Telephone encounter Note * Telephone Encounter - Maribell Nicholas MA - 11/28/2023 1:03 PM EDT Forms faxed to Dr. Tracy Items addressed in this encounter: MyChart Encounter Fax/Forms Maribell Nicholas MA November 28, 2023 1:45 PM 1:45 PM [facility]05-06-2024 History of Present illness Narrative* John Braden MD - 11/26/2023 10:12 AM EDT I have communicated my name and active licensure. The patient's identity and physical location wereverified at the time of this visit. Either the patient or their legal indirect sales representative has been informed of the risks [...] a cramp with her mouth in an "o" shape. Told it is panic attack but [...] Yes Types: Heroin, Marijuana Comment: Patient states "I have used multiple drugs in the past" citalopram hydrobromide (CELEXA) 10 mg tablet, Take [...] adrenal, or pituitary disorders SocHx: lives with constance and 2 children (1yo and 11yo), and her brother and his dtr, health insurance agent, no EtOH, vapes PE: LMP 11/15/2023 (Exact [...] adrenal region (series 1, image 9), unchanged. " Diagnoses and all orders for this visit: [...] 1mg dexamethasone suppression test to r/o subclinical Ulises's syndrome -if all labs normal will repeat [...] an electronic medical record documented in this encounterUc Health05-02-2024 Instructions* Patient Instructions* Keaton Tracy MD - 11/22/2023 12:14 PM EDT Start Celexa Start Abilify. Avoid while taking Vyvanse, Abilify and other medications Send FMLA paperwork via [email or web address] Follow in 2 weeks [facility] - Insurance Therapy/Counseling and Medication Management Services [facility] [address] [place] [address] [facility] [address] [place] [address] [facility] [address] [place] [address] [facility] [address] [place], [place] [address] [facility] [address] [place] [address] [facility] [address] [place] [address], [address] documented in this encounterUc Health05-02-2024 History of Present illness Narrative* Keaton Tracy MD - 11/22/2023 8:47 AM EDT Telemedicine Visit - Distance Health Virtual Visit Note Patient seen on Stazoo[employer]com video visit platform. Location of patient: [place] I have communicated my name and active licensure. The patient's identity and physical location wereverified at the time of this visit. Either the patient or their legal indirect sales representative has been informed of the risks [...] ordered. 5) H/o abnormal pap - Sees maintenance manager 6) Smoker - Pre-contemplative. 7) Chronic back [...] Yes Types: Heroin, Marijuana Comment: Patient states "I have used multiple drugs in the past" Video Exam (Examination performed via Video enabled [...] completion. Keaton Tracy MD documented in this encounterUc Health04-30-2024 Emergency department Note * Matt Morgan DO - 11/20/2023 7:20 PM EDT HPI Chief Complaint Patient presents with Panic Attack Patient to ED via wheelchair with c/o "I've been having a 48 hour panic attack"-- worse since 1000 today with chest pressure [...] that this evening her symptoms continued [facility]. She denies suicidal or homicidal thoughts. History provided by: Patient traffic ii manager used: No Radha Coma Scale Score: 15 [...] Name Age of Onset Hypertension Mother Verna Fortjoelle Cancer Mother Verna Fortjoelle Heart disease Mother Verna Fortjoelle Hypertension Father Cristhian Hensley Kidney disease Father Cristhian Hensley Diabetes Father Cristhian Fortjoelle Heart disease Father Cristhian Hensley Other (skin [...] and her PCP appointment. I checked an [place] automated prescription reporting system report for the patient and it appears she did receive a prescription for Calumet within the past month that was completed [...] Morgan DO 11/20/232001 Matt Morgan DO 11/20/232006 documented in this [facility] Work Phone: 1(669) 521-820604-30-2024 Physician Emergency department Note* Matt Morgan DO - 11/20/2023 7:20 PM EDT HPI Chief Complaint Patient presents with Panic Attack Patient to ED via wheelchair with c/o "I've been having a 48 hour panic attack"-- worse since 1000 today with chest pressure [...] or homicidal thoughts. History provided by: Patient traffic ii manager used: No Radha Coma Scale Score: 15 [...] and her PCP appointment. I checked an [place] automated prescription reporting system report for the patient and it appears she did receive a prescription for Calumet within the past month that was completed [...] Morgan DO 11/20/232001 Matt Morgan DO 11/20/232006 [facility] Work Phone: 1(274) 485-170804-29-2024 History of Present illness Narrative* Stephy Briones APRN.EDUCATION ADMINISTRATOR - 11/19/2023 5:54 PM EDT She came [...] dealing with her migraines. documented in this encounterUc Health04-25-2024 History of Present illness Narrative* Chey Ladd APRN.JAMES - 11/15/2023 5:40 PM EDT This note was created using InDemand Interpretingriter. Subjective Fadumo Hensley is a 28 year old female. 28 year old female with PMH migraine, asthma, ADD presents for migraine. Acute onset this noon. ' felt a little twinge this morning" Pain locates behind right ear, to right episcopalian to eye +"seeing circles" (which is normal) States this is her usual migraine presentation Denies N/V/D Denies fever or chills. Denies unilateral weakness. Denies worst headache of life, during coitus, thunder clap. She took her home Imitrex 2 hours. Denies relief of symptoms. Think I took it too late Requesting work note. The history is provided by the patient. No hourly sign language interpreter was used. Headache This [...] 3 elevated. Supplies and referrals ordered. Sulma Plotts, SENIOR COMMUNICATIONS SPECIALIST.CNM Generalized anxiety disorder GERD (gastroesophageal reflux disease) [...] UTERI CONIZA LP ELCTRO EXCI 05/11/2023 at [facility]-Dr. Millan PAST SURGICAL HISTORY OF 01/01/2010 Removal of 4 [place] Teeth PAST SURGICAL HISTORY OF basal cell [...] Yes Types: Heroin, Marijuana Comment: Patient states "I have used multiple drugs in the past" Review of Systems Constitutional: Negative for activity [...] up with PCP Work note Chey Ladd APRN.EDUCATION ADMINISTRATOR documented in this encounterUc Health04-16-2024 Note* Op Note - Dev Narayan MD - 11/06/2023 7:50 AM EDT Lithotripsy Extracorporeal Shock Wave (R) Operative Note Date: 11/06/2023 OR Location: [facility] OR Name: Fadumo Hensley, : 1995, Age: 28 y.o., , Sex: female Diagnosis Pre-op Diagnosis * Kidney stone [N20.0] Post-op Diagnosis * Kidney stone [N20.0] Procedures Lithotripsy Extracorporeal Shock Wave 42424 - [place] LITHOTRIPSY XTRCORP SHOCK WAVE Surgeons * Dev Narayan - Primary Resident/Fellow/Other Child Day Care Provider: Surgeons and Role: * No surgeons found [...] 800 mL Specimen: No specimens collected Staff: Manager Brand: Iesha Mcbride RN Indications: Fadumo Hensley is [...] present for the entire procedure. Dev Narayan [facility] Work Phone: [phone] 425-227004-16-2024 Miscellaneous Notes* Op Note - Dev Narayan MD - 11/06/2023 7:50 AM EDT Lithotripsy Extracorporeal Shock Wave (R) Operative Note Date: 11/06/2023 OR Location: [facility] OR Name: Fadumo Hensley, : 1995, Age: 28 y.o., , Sex: female Diagnosis Pre-op Diagnosis * Kidney stone [N20.0] Post-op Diagnosis * Kidney stone [N20.0] Procedures Lithotripsy Extracorporeal Shock Wave 13508 - [place] LITHOTRIPSY XTRCORP SHOCK WAVE Surgeons * Dev Narayan - Primary Resident/Fellow/Other Child Day Care Provider: Surgeons and Role: * No surgeons found [...] 800 mL Specimen: No specimens collected Staff: Manager Brand: Iesha Mcbride RN Indications: Fadumo Hensley is [...] drink after midnight Additional Instructions: Will need jinriksha driver home, arrive on 2nd floor at hospital at 6 am on SundayNovember 05 documented in this encounterUniversity [facility] Work Phone: 1(304) 856-757004-16-2024 History and physical note* Dev Narayan MD [...] Onset Hypertension Mother Verna Hensley Cancer Mother Vrena Hensley Heart disease Mother Verna Hensley Hypertension [...] resp. rate 16, height 1.7 m (5' 6.93"), weight 79 kg (174 lb 2.6 oz), SpO2 99%. Assessment/Plan Principal Problem: Kidney stone Dev Narayan MD [facility] Work Phone: [phone]) 520-852704-16-2024 History and physical note* Dev Narayan MD [...] resp. rate 16, height 1.7 m (5' 6.93"), weight 79 kg (174 lb 2.6 oz), SpO2 99%. Assessment/Plan Principal Problem: Kidney stone Dev Narayan MD documented in this encounterUniversity [facility] Work Phone: 1(886) 916-731404-15-2024 Note* Preprocedure Instructions - Reina Ramirez RN - 11/05/2023 11:44 AM EDT No outpatient medications have been marked as taking for the 11/06/23 encounter (Hospital Encounter). NPO Instructions: Nothing to eat or drink after midnight Additional Instructions: Will need jinriksha driver home, arrive on 2nd floor at hospital at 6 am on SundayNovember 05 [facility]04-01-2024 Miscellaneous Notes* Telephone Encounter - Maribell Nicholas MA - 10/22/2023 1:15 PM EDT Items addressed in this encounter: MyChart Encounter Maribell Nicholas MA October 22, 2023 1:16 PM 1:16 PM documented in this encounterUc Health03-22-2024 History of Present illness Narrative* Debby Taveras, OCTAVIO.EDUCATION ADMINISTRATOR - 10/12/2023 1:15 PM EDT I have communicated my name and active licensure. The patient's identity and physical location wereverified at the time of this visit. Either the patient or their legal indirect sales representative has been informed of the risks and benefits of -- and alternatives to -- treatment through a remote evaluation andconsents to proceed with the evaluation remotely. Telemedicine Visit - Distance Health Virtual Visit Note Patient seen on [employer] [place] Video Visit platform. Location of patient: [place] Keaton Tracy MD History of Present Illness Fadumo Hensley is a 28 year old year old female who presents for request of scopolamine patches; states she has used previously last use was ~7 years ago. States she is driving down to [place] tomorrow morning and then will be going [...] in the past to have an , butjose manuele does not wish to do that. Patient was given a brochure on the care center and WIC. depression PTSD (post-traumatic stress disorder) Rosacea 01/27/2010 Rubella non-immune status 04/22/2012 Skin cancer Teen 04/22/2012 July 04, 2012 Flu vaccine given Telangiectasia 01/27/2010 Tobacco use disorder PAST SURGICAL HISTORY Procedure Laterality Date CERVIX UTERI CONIZA LP ELCTRO EXCI 05/11/2023 at [facility]-Dr. Millan PAST SURGICAL HISTORY OF 01/01/2010 Removal of 4 [place] Teeth PAST SURGICAL HISTORY OF basal cell [...] Yes Types: Heroin, Marijuana Comment: Patient states "I have used multiple drugs in the past" Current Outpatient Medications Medication Sig tiZANidine (ZANAFLEX) [...] care - All questions answered Debby Taveras APRN.JAMES If you let us know who your [...] would like to continue care with a [facility] physician, please ask your provider to place a "Establish PrimaryCare" order. Use [employer] to manage your care, wherever you are, 12/02, on your mobile device or computer. [employer] connects you to [email or web address] so you can access all your health information in one place and also schedule and request virtual appointments with primary care providers. documented in this encounterUc Health03-19-2024 Miscellaneous Notes* Telephone Encounter - Maribell Nicholas [...] 2:26 PM 2:26 PM documented in this encounterUc Health03-19-2024 History of Present illness Narrative* Lashon Saba PA-C - 10/09/2023 8:07 AM EDT * Lashon Saba PA-C - 10/09/2023 8:07 AM EDT documented in this encounterUc Health03-14-2024 History of Present illness Narrative* Aliyah Guaman [...] PATIENT PRESENTS WITH AN IMPLANTABLE OR ATTACHED TRANSPORTATION BROKER: No ALLERGIES: CONTRAST ALReviewed and unchangedLERGY: NO. EXAM: MRI - CONTRAST TYPE: GROUP II PERIPHERAL IV DATA: Ambulatory: A peripheral IV was started in the Left antecubital site with a Angio cath: 22 gauge. RADIOLOGY DEPARTMENT: MR; Exam(s) Completed: Body: Adrenal Head: Sagittal Sinus MRV SIGNATURE: ZHOU Hearn PATIENT NAME: Fadumo Hensley DATE: October 04, 2023 TIME: 9:10 AM documented in this encounterUc Health03-12-2024 Miscellaneous Notes* Telephone Encounter - Maribell Nicholas MA - 10/02/2023 10:13 AM EDT Completed forms faxed and sent to scanning. Items addressed in this encounter: Fax/Forms Maribell Nicholas MA October 02, 2023 10:14 AM 10:14 AM * Telephone Encounter - Maribell Nicholas MA - 09/26/2023 9:42 AM EST Type of form: FMLA Form received via walk in When form is completed, Fax form to [phone] Form has been faxed to Dr. Tracy for completion. Items addressed in this encounter: Fax/Forms Maribell Nicholas MA September 26, 2023 9:43 AM 9:43 AM * Telephone Encounter - Ariella Crabtree - 09/21/2023 1:31 PM EST Type of form: FMLA for intermittent leave Form received via walk in When form is completed, Fax form to [phone] Form has been faxed to PT Sheyla. [place] has original copy she will hold on to. Form has been forwarded to Dr Tracy. Ariella Sam documented in this encounterUc Health03-11-2024 History of Present illness Narrative* Damaso Samuels Jr., MD - 10/01/2023 4:02 PM EDT NEW PATIENT (CONSULT) HISTORY AND PHYSICAL EXAM PRIMARY CARE PHYSICIAN: Keaton Tracy MD REASON FOR CONSULT: See below REFERRING PHYSICIAN: Aliyah Carter, APR* CHIEF COMPLAINT: "Multiple things happening to me and I don't know why" Consultation requested by Aliyah Carter, APR* for an opinion regarding chief [...] magnesium oxide 400 mg once a day [id number]. Patient agreeable to the above plan and [...] and had onset of face making an "O with the mouth", lightheadedness and hand cramping. Was taken to [...] states delivered in November of 2022. States "the claw hands have significantly increased - was one every year, then one every 6 months and now 5-6 times per year.". Longest episode has lasted is about 25 [...] begins to readto me but then states "this is not right". Pt denies having such events during , but started prior to in 2020. When asked when last event was, pt states 09/21/23 but just felt "woozy" and hand and face did not cramp. [...] Yes Types: Heroin, Marijuana Comment: Patient states "I have used multiple drugs in the past" PHYSICAL EXAMINATION LMP 09/17/2023 (Approximate) GENERAL EXAM: [...] dysarthria; comprehension, naming, repetition intact. Short and chcf memory intact. Fund of knowledge grossly normal [...] which included preparing to see the patient, [id number] patient care, completing clinical documentation, obtaining and/or reviewing separately obtained history, performing a medically appropriate examination, counseling and educating the pa tient/family/caregiver, ordering medications, tests, or procedures, and communicating results to the patient/family/caregiver. documented in this encounterUc Health03-11-2024 History of Present illness Narrative* Dev Narayan MD - 10/01/2023 8:15 AM EDT Subjective Patient ID: Fadumo Hensley is a 27 y.o. female. Virtual [...] intake. F/u R ESWL documented in this encounterUniversity [facility] Work Phone: [phone]) 550-467703-08-2024 History of Present illness Narrative* Keaton Tracy MD - 09/28/2023 3:05 PM EST Telemedicine Visit - Distance Health Virtual Visit Note Patient seen on [email or web address] video visit platform. Location of patient: [place] I have communicated my name and active licensure. The patient's identity and physical location wereverified at the time of this visit. Either the patient or their legal indirect sales representative has been informed of the risks [...] ordered. 5) H/o abnormal pap - Sees maintenance manager 6) Smoker - Pre-contemplative. 7) Chronic back [...] appts (she has 4 with [facility]). Visiting [employer] and would like paperwork to use wheelchair. [...] Yes Types: Heroin, Marijuana Comment: Patient states "I have used multiple drugs in the past" Video Exam (Examination performed via Video enabled [...] 11:14 AM 11:14 AM documented in this encounterUc Health03-04-2024 History of Present illness Narrative* Dev Narayan [...] F/u Virtual with KUB documented in this encounterUniversity [facility]als [facility] Work Phone: 1([phone]) 792-488703-01-2024 Instructions* Patient Instructions* Aliyah Carter APRN.CNP - 09/21/2023 1:14 PM EST Schedule with neuro Re occurrence of facial paralysis or hand cramping or near syncope/passing out = ER documented in this encounterUc Health03-01-2024 History of Present illness Narrative* Aliyah Carter [...] if symptoms worsen or fail to improve. SOLO Atkinson APRN.EDUCATION ADMINISTRATOR documented in this encounterUc Health02-23-2024 Miscellaneous Notes* Telephone Encounter - Kenya Reina [...] file prior to visit. documented in this encounterUc Health02-22-2024 Miscellaneous Notes* Telephone Encounter - Damaso Jang MD - 09/13/2023 2:29 PM EST ----- Message from RT Samantha(R) sent at 09/13/2023 12:37 PM EST ----- Regarding: MRI order Hi Dr. Jang, We dont need to use contrast for the MRI Adrenal for the adenoma. Can you place another order for MRI Adrenal WO please? Thanks Elma documented in this encounterUc Health02-13-2024 Miscellaneous Notes* Telephone Encounter - Agnieszka Taylor [...] you. Judith Carlos Ma. documented in this encounterUc Health02-12-2024 History of Present illness Narrative* Bibi Saxena APRN.EDUCATION ADMINISTRATOR - 09/03/2023 11:20 AM EST 09/03/2023 Patient presents with: Physical SUBJECTIVE: This is a 27 year old that is here today for Above Complaints.. ADD: Current Treatment: Vyvanse Feels treatment is working well: Yes. Weight [...] Yes Types: Heroin, Marijuana Comment: Patient states "I have used multiple drugs in the past" REVIEW OF SYSTEMS GENERAL: No weight loss, [...] Vaccine(1) due on 03/23/2023 Covid-19 Vaccine(2 - season) due on 03/23/2023 Depression Assessment Never [...] immunization - ICD9: V03.89, ICD10: Z23 - [id number] COVID-19 VACCINE ( SEASON) AGE 12+ YR [...] suspiciousactivity was identified. 09/03/2023 by Bibi Saxena APRN.EDUCATION ADMINISTRATOR - stable on current dose of Vyvanse - follow-up in 3 months, sooner if needed Bibi Saxena APRN.JAMES Prescription instructions reviewed with patient as applicable. Patient advised if symptoms do not improve or if symptoms worsen sooner, to contact their primary care physician. Potential red flag symptoms discussed with the patient. Reviewed appropriate action plan to take if red flag symptoms occur. Patient agreeable to treatment plan. documented in this encounterUc Health02-09-2024 History of Present illness Narrative* Damaso Jang [...] visit. Either the patient or their legal indirect sales representative has been informed of the risks [...] 1.5 cm apparently then. Her ct at [facility] described it as 2.2 cm which might [...] pg/mL 14.1 Can see ER visit from [facility] Everywhere HPI, copied and pasted: [...] Gina (*) Appearance, Urine Hazy (*) Specific [place], Urine 1.011 pH, Urine 8.0 Protein, Urine [...] UTERI CONIZA LP ELCTRO EXCI 05/11/2023 at [facility]-Dr. Millan PAST SURGICAL HISTORY OF 01/01/2010 Removal of 4 [place] Teeth PAST SURGICAL HISTORY OF basal cell [...] Yes Types: Heroin, Marijuana Comment: Patient states "I have used multiple drugs in the past" Reviewed current medications, allergies, past medical history, [...] PROCEDURE) Damaso Jang MD documented in this encounterUc Health02-04-2024 Hospital Discharge instructions* Discharge Instructions* Wilver Tarango PA-C - 08/26/2023 10:07 PM EST You have a urinary tract infection. You have been prescribed oral antibiotics and Pyridium. If yoursymptoms worsen you need to return immediately. It was also noted that you have an adrenal adenoma that is measuring approximately 2.2 cm. Follow-up with your family physician as recommended. documented in this [facility] Work Phone: 1(727) 725-580202-04-2024 Emergency department Note* Wilver Tarango PA-C - [...] Gina (*) Appearance, Urine Hazy (*) Specific [place], Urine 1.011 pH, Urine 8.0 Protein, Urine [...] Abnormality Status --------- ------ Urinalysis with Reflex C...[[id number]] Abnormal Final result Extra Urine Waters Tube[[id number]] In process Please view results for these tests on the individual orders. EXTRA URINE WATERS TUBE CT abdomen pelvis wo IV contrast Final Result Bilateral nonobstructing renal calculi, greater on the right. No obstructive uropathy identified. Possible right adrenal adenoma. MACRO: None Signed by: Federica Sutherland 08/26/2023 9:20 PM Dictation workstation: [id number] Procedures Medical Decision Making Patient is a [...] Wilver Tarango PA-C 08/26/232209 documented in this [facility] Work Phone: [phone]) 629-849902-04-2024 Physician Emergency department Note* Wilver Tarango PA-C [...] Gina (*) Appearance, Urine Hazy (*) Specific [place], Urine 1.011 pH, Urine 8.0 Protein, Urine [...] Abnormality Status --------- ------ Urinalysis with Reflex C...[[id number]] Abnormal Final result Extra Urine Waters Tube[[id number]] In process Please view results for these tests on the individual orders. EXTRA URINE WATERS TUBE CT abdomen pelvis wo IV contrast Final Result Bilateral nonobstructing renal calculi, greater on the right. No obstructive uropathy identified. Possible right adrenal adenoma. MACRO: None Signed by: Federica Sutherland 08/26/2023 9:20 PM Dictation workstation: [id number] Procedures Medical Decision Making Patient is a [...] laterality Renal calculi Wilver Tarango PA-C 08/26/232209 [facility] Work Phone: 1([phone]) 859-755502-04-2024 Reason for referral (narrative)* Consultation (Routine) - Authorized Specialty Diagnoses / Procedures Referred By Dave t Referred To Contact Family Medicine / Primary Care Wilver Tarango PA-C [address] [place] [address] Referral ID Status Reason Start Date Expiration Date Visits Requested Visits Authorized [id number] Authorized Specialty Services Required 08/26/2023 08/25/2024 1 1 [facility] Work Phone: 1(976) 633-167112-14-2023 Miscellaneous Notes* Telephone Encounter - Debby Reeves [...] Jo Ann Helm LPN. documented in this encounterUc Health12-13-2023 Miscellaneous Notes* Telephone Encounter - Rivas Lund LISW - 07/04/2023 1:55 PM EST BEHAVIORAL HEALTH SOCIAL WORK CONSULT NOTE Service Date: July 04, 2023 Patient was identified by name and Patient: Fadumo Hensley [facility] [place] [address] (home) [phone] (cell) PCP: Debby Reeves MD [address] [facility] [address] Patient identified for [facility] from: PCP Reason for referral: Resources Behavioral Health Resources: Psychiatry med management [facility] encounter type: Telephone Encounter Assessment: Referral made to engage patient seeking psychiatry. [facility] reviewed patient's chart and insurance to identify resources. Patient stated they are seeking psychiatry through [facility]. Patient denies suicidal or homicidal ideation.. [facility] scheduled a mental health assessment for 07/30/23, and [facility] informed patient if she did not show [...] -Patient advised of treatment options available at [facility]. Patient was informed that they will be moving on for further evaluation if seeking treatment within the [facility] system. Reason for External Referrals : N/A Intervention: Supportive Listening Scheduled Assessment Offered virtual visit Resources Provided: Medication Management Further evaluation and assessment Virtual Visit Time Spent: 15 minutes SANDY Lazo documented in this encounterUc Health12-12-2023 Instructions* Patient Instructions* Keaton Tracy MD - 07/03/2023 3:15 PM EST My office number is [phone]. They will be able to assist in scheduling an office visit with one of my PA/LOAN ADMINISTRATOR colleagues to meet the [facility] requirements for prescribing ADHD medications. Schedule with Koki Wheatley, Tatiana Grullon, Hilda Carter or Phyllis Serra My office address is: [address] [place] [address], [place] [phone] Send me a [email or web address] message to let me know when you've had the visit. I will review the notes and send in a prescription for medication. Schedule with endocrine weight management. Please call [phone] to schedule your Endocrinology Medical Weight Management appointment or you can self- schedule by logging onto your [email or web address] account. documented in this encounterUc Health12-12-2023 Nurse Note* Bina Granados RN - 07/03/2023 11:05 AM EST Items addressed in this encounter: Other VV pre check, name and location verified, aware of tele health visit with Bo Granados RN July 03, 2023 11:05 AM 11:05 AM documented in this encounterUc Health12-12-2023 History of Present illness Narrative* Keaton Tracy MD - 07/03/2023 10:21 AM EST Telemedicine Visit - Distance Health Virtual Visit Note Patient seen on [email or web address] video visit platform. Location of patient: [place] I have communicated my name and active licensure. The patient's identity and physical location wereverified at the time of this visit. Either the patient or their legal indirect sales representative has been informed of the risks [...] negative. 5) H/o abnormal pap - Sees maintenance manager 6) Smoker - Pre-contemplative. 7) Chronic back [...] Yes Types: Heroin, Marijuana Comment: Patient states "I have used multiple drugs in the past" Video Exam (Examination performed via Video enabled [...] cervix - ICD9: 795.04, ICD10: R87.613 Seeing maintenance manager 6. Smoking - ICD9: 305.1, ICD10: F17.200 [...] mgmt. Keaton Tracy MD documented in this encounterUc Health11-22-2023 History of Present illness Narrative* Debby Reeves MD - 06/13/2023 1:27 PM EST Chief Complaint Patient presents with: ED Follow-up HPI Fadumo Hensley is a 27 year old female who presents here today for ER Follow Up.. Patient had VV with me on 06/04 for ER visit at [facility] on 06/03 for complaint of tinglingin her hand, and right side of face along with chest pain. Recommended she follow up in office for additional workup and to return to the ED with red flag symptoms. She was evaluated at [facility] ED on 06/04 for complaint of persistent [...] states that she was on vistaril in [place] and it made her symptoms worse. Seeing [...] UTERI CONIZA LP ELCTRO EXCI 05/11/2023 at [facility]-Dr. Millan PAST SURGICAL HISTORY OF 01/01/2010 Removal of 4 [place] Teeth PAST SURGICAL HISTORY OF basal cell [...] Yes Types: Heroin, Marijuana Comment: Patient states "I have used multiple drugs in the past" Review of Symptoms REVIEW OF SYSTEMS GENERAL: No weight loss, malaise or fevers RESPIRATORY: Negative for cough, hemoptysis, wheezing, COPD, dyspnea or shortness of breath CARDIOVASCULAR: Negative for chest pain, leg swelling, hypertension, CHF or palpitations GI: No nausea, vomiting, or diarrhea ENDOCRINE: Negative for cold or heat intolerance, polyuria, polydipsia and goiter EXAM: BP 120/80 Resp 16 Ht 170.2 cm (5' 7") LMP 02/13/2023 (Within Days) BMI 28.04 kg/m [...] Vaccine(1) due on 03/23/2023 Covid-19 Vaccine(2 - season) due on 03/23/2023 Depression Assessment due [...] THERAPY Debby Reeves MD documented in this encounterUc Health11-15-2023 History of Present illness Narrative* Carmelita Millan [...] prn Carmelita Millan MD documented in this encounterUc Health11-15-2023 Miscellaneous Notes* Telephone Encounter - Aliyah Khoury [...] you. Aliyah Khoury RN documented in this encounterUc Health11-14-2023 Miscellaneous Notes* Telephone Encounter - Sienna Hidalgo LPN - 06/05/2023 2:35 PM EST Patient notified. Voices understanding. Sienna Hidalgo LPN * Telephone Encounter - Debby Reeves MD - 06/05/2023 2:12 PM EST [...] placed on provider's desk. documented in this encounterUc Health11-13-2023 Discharge summary Author Ammon Londono [facility] June 04, 2023 10:30pm Note Date/Time June 04, 2023 7:06pm [facility] Medical Records Department [address] [place] [address] Emergency Department Summary 06/04/23 MR#: [id number] Acct: [id number] Name: FADUMO HENSLEY Rep #:[id number] : [...] developed midsternal chest pain. She went to [facility] ED and had a normal EKG and [...] after a LEEP procedure several weeks ago [facility] <ROSETTE Cottrell - Last Filed: 06/04/23 20:57> [facility] Medical History ADHD Anxiety Asthma Depression Gastric [...] Reaction Status Date / Time cetirizine [From [facility]] Allergy difficulty Verified 06/04/23 18:45 breathing, racing [...] % (Auto) 57.0 Lymph % (Auto) 34.8 Bledsoe % (Auto) 5.9 Eos % (Auto) 1.8 [...] Signed: Thanh Salinas MD at 19:10 EST , Chest CTA 06/04/23 20:03 IMPRESSION: Normal CTA chest examination, without a demonstrated pulmonary embolism or arterial dissection. Electronically Signed: Thanh Salinas MD at 22:02 EST , ED attending interpretation of 1-view chest x-ray shows normal heart size, no acute infiltrate, edema, or effusion. EKG Initial EKG: Attestation: I personally reviewed and interpreted this EKG as follows: Interpretation: No Acute Injury Pattern and Sinus Tachycardia Comments: Sinus tachycardia at 101 bpm Right bundle branch block No STEMI criteria <Ammon Londono MD - Last Filed: 06/04/23 22:30> [facility] MDM Narrative Medical decision making narrative: Patient [...] % (Auto) 57.0 Lymph % (Auto) 34.8 Bledsoe % (Auto) 5.9 Eos % (Auto) 1.8 [...] 19:10 EST Reading Location ID and State: [email or web address] Tel , Service support , Chest CTA 06/04/23 20:03 IMPRESSION: Normal CTA chest examination, without a demonstrated pulmonary embolism or arterial dissection. Electronically Signed: Thanh Salinas MD at 22:02 EST Reading Location ID and State: [id number] / [employer] Tel , Service support , Discharge Plan [...] your Primary Care Provider. Call [facility] ([phone]) or report to the closest Emergency Room. Call 911 if necessary. 06/04/232229 <Electronically signed by Ammon Londono MD> Cosigner Signature (if applicable): 06/04/232056 <Electronically signed by Elma DINERO> CC: Dr. Joe Reeves MD ~ Signed [facility] Work Phone: 1(859) 902-946311-13-2023 History of Present illness Narrative* Debby Reeves MD - 06/04/2023 3:59 PM EST Chief Complaint Patient presents with: ER F/U I have communicated my name and active licensure. The patient's identity and physical location wereverified at the time of this visit. Either the patient or their legal indirect sales representative has been informed of the risks and benefits of -- and alternatives to -- treatment through a remote evaluation andconsents to proceed with the evaluation remotely. HPI Fadumo Hensley is a 27 year old female who presents here today for ER follow up. On today for virtual visit. Patient evaluated at [facility] ER for complaint of tingling in her [...] UTERI CONIZA LP ELCTRO EXCI 05/11/2023 at [facility]-Dr. Millan CERVIX UTERI CONIZA LP ELCTRO EXCI 05/11/2023 INSERTION OF IUD 12/02/2013 INSERTION OF IUD 05/11/2023 Liletta IUD Insertion MIRENA IUD 2019 Removed 12/2021 PAST SURGICAL HISTORY OF 01/01/2010 Removal of 4 [place] Teeth PAST SURGICAL HISTORY OF basal cell [...] Yes Types: Heroin, Marijuana Comment: Patient states "I have used multiple drugs in the past" Review of Symptoms REVIEW OF SYSTEMS See [...] which included preparing to see the patient, woum-ad-fsyn patient care, completing clinical documentation, obtaining and/or reviewing separately obtained history, performing a medically appropriate examination, counseling and educating the pat ient/family/caregiver, ordering medications, tests, or procedures, and communicating with other HCPs (not separately reported). Debby Reeves MD documented in this encounterUc Health11-09-2023 Miscellaneous Notes* Telephone Encounter - Carmelita Millan [...] sooner? Joshua Delgado RN documented in this encounterUc Health11-08-2023 Instructions* Patient Instructions* Lashon Saba PA-C - [...] months, sooner if needed documented in this encounterUc Health11-08-2023 History of Present illness Narrative* Lashon Saba PA-C - 05/30/2023 1:00 PM EST Images from the original note were not included. [facility] for General Neurology New Patient Evaluation This visit was conducted via virtual platform. I have communicated my name and active licensure. The patient's identity and physical location wereverified at the time of this visit. 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 Millan CERVIX UTERI CONIZA LP ELCTRO EXCI 05/11/2023 INSERTION OF IUD 12/02/2013 INSERTION OF IUD 05/11/2023 Liletta IUD Insertion MIRENA IUD 2019 Removed 12/2021 PAST SURGICAL HISTORY OF 01/01/2010 Removal of 4 [place] Teeth PAST SURGICAL HISTORY OF basal cell [...] Yes Types: Heroin, Marijuana Comment: Patient states "I have used multiple drugs in the past" EXAM: There were no vitals filed for this visit. Exam is observational at best. General Appearance: well appearing, in no acute distress Mental status evaluation during the interview and examination showed normal level of consciousness,orientation, language, memory, praxis, and higher intellectual function Affect: Normal Speech: normal Cranial Nerves: III, IV, -EOMI: full. VII-face is symmetric without evidence of weakness. VIII-hearing intact. Strength: MAEW REVIEW OF STUDIES: Blood studies: 11/01/2022 CBC [...] magnesium oxide 400 mg once a day wxuj-tym-hyhqijw. Patient agreeable to the above plan and will schedule MRI, schedule a visit in 6 months, sooner if needed I spent a total of 40 minutes on the date of the service which included preparing to see the patient, yyfi-pv-pldv patient care, completing clinical documentation, obtaining and/or [...] display for this encounter documented in this encounterUc Health11-07-2023 Miscellaneous Notes* Telephone Encounter - Verena Escoto [...] not get them that often. 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 7. MIGRAINE: Yes. 8. HEAD INJURY: Patient denies 9. OTHER SYMPTOMS: N/A 10. : Has IUD. Last period in April 2023. Protocols used: Cdxvyqre-JYRUO-YX documented in this encounterUc Health11-07-2023 Miscellaneous Notes* Telephone Encounter - Radha Palacio [...] you. Radha Palacio RN. documented in this encounterUc Health10-23-2023 History of Present illness Narrative* Carmelita Millan MD - 05/14/2023 10:32 AM EDT Patient underwent a LEEP of the cervix and endocervical curettage for high-grade dysplasia of the cervix on 05/11/2023 at [facility] and pathology is pending. She also underwent Liletta IUD insertion for contraception. Patient was discharged home with routine instructions and follow- up. Carmelita Millan MD documented in this encounterUc Health10-20-2023 History and physical note Author Carmelita Millan [facility] May 11, 2023 1:19pm Note Date/Time May 09, 2023 1 :57pm [facility] Medical Records Department [address] [place] [address] History & Physical Exam 05/09/23 1357 MR#: [id number] Acct: [id number] Name: FADUMO HENSLEY Rep #:[id number] : 1995 27 From: Carmelita Millan MD PCP: Dr. Joe Reeves MD Status :[facility] Location: [place] [address] History and Physical Date of Admission: 05/11/23 [...] of 3 elevated. Supplies and referrals ordered. uSlma Bartholomew APRN.CNM ? Generalized anxiety disorder ? [...] site unspecified ? ? AC joint tear, 2006 ? Patient requested diagnostic testing 04/18/2012 ? [...] OF ? 01/01/2010 ? Removal of 4 [place] Teeth ? PAST SURGICAL HISTORY OF ? [...] Heroin, Marijuana ? ? Comment: Patient states "I have used multiple drugs in the past" ? FAMILY HISTORY: FAMILY HISTORY FAMILY HISTORY [...] pulse 104, resp. rate 16, height 5' 7" (1.702 m),weight 177 lb (80.3 kg), last [...] MD; Dr. Carmelita Millan MD ~* Signed [facility] Work Phone: 1(624) 670-817710-20-2023 Procedure [facility] 05-09-2023 History of Present illness Narrative* [...] L2 SAB0 IAB0 Ectopic0 Multiple0 Live Births2 Tower [employer] Specialist History LMP: 02/13/2023 (Within Days), Having periods Age at Menarche: Age at First : Age at Menopause: [employer] Specialist History Comments: Sexual Activity: Yes; Male Contraception: [...] SURGICAL HISTORY OF 01/01/2010 Removal of 4 [place] Teeth PAST SURGICAL HISTORY OF basal cell [...] Yes Types: Heroin, Marijuana Comment: Patient states "I have used multiple drugs in the past" Current Outpatient Medications Medication Sig methocarbamol (ROBAXIN) [...] 112/74 Pulse 104 Resp 16 Ht 5' 7" (1.70m) Wt 177 lb (80.3kg) LMP 02/13/2023 BMI 27.72 kg/(m^2). GENERAL: pleasant, female in no apparent distress ASSESSMENT AND PLAN: MANUEL 3, contraception management r/b/a to Progestein (liletta) IUD insertion and LEEP of cervix reviewed, desires to proceed in OR due to situational anxiety Carmelita Millan MD documented in this encounterUc Health10-18-2023 History and physical note * Carmelita Millan [...] SURGICAL HISTORY OF 01/01/2010 Removal of 4 [place] Teeth PAST SURGICAL HISTORY OF basal cell [...] Yes Types: Heroin, Marijuana Comment: Patient states "I have used multiple drugs in the past" FAMILY HISTORY: FAMILY HISTORY Problem Relation Age [...] pulse 104, resp. rate 16, height 5' 7" (1.702 m), weight 177 lb (80.3 kg), [...] allergies Carmelita Millan M.D. documented in this encounterUc Health10-16-2023 Miscellaneous Notes* Telephone Encounter - Debby Reeves [...] Thank you. GABE More. documented in this encounterUc Health09-13-2023 Miscellaneous Notes* Telephone Encounter - Bibi Saxena APRN.EDUCATION ADMINISTRATOR - 04/04/2023 8:28 PM EDT PDMP website checked and validated. All prescriptions have been APPROPRIATELY filled. No suspiciousactivity was identified. 04/04/2023 by Bibi Saxena APRN.EDUCATION ADMINISTRATOR * Telephone Encounter - Darien Covarrubias LPN - 04/04/2023 4:34 PM EDT Patient phones requesting refills as follows: Requested Prescriptions Pending Prescriptions Disp Refills lisdexamfetamine (VYVANSE) 40 mg capsule 30 capsule 0 Sig: Take 1 capsule by mouth once daily for 30 days. ANAYA 03/21/23 (virtual) 03/13/23 (in person) NOV no upcoming appt Please review and advise. Darien Covarrubias LPN documented in this encounterUc Health08-30-2023 Miscellaneous Notes* Telephone Encounter - Carmelita Millan MD - 03/21/2023 3:06 PM EDT noted. Reschedule. Thanks. See if there are date restrictions for her. Carmelita Millan MD * Telephone Encounter - Joshua Delgado RN - 03/21/2023 2:31 PM EDT Received call from [facility] travel registered nurse oncology that patient contacted them to cancel surgery. She is covid positive. Tested positive yesterday. She is aware travel registered nurse oncology will contact her with next available date. Joshua Delgado RN documented in this encounterUc Health08-30-2023 Instructions* Patient Instructions* Debby Reeves MD - [...] of LAGEVRIO during to this registry at [email or web address] or . For individuals who are sexually [...] virus. COVID-19 illnesses have ranged from very qiat-dd-ddkuev, including illness resulting in . While information [...] serious illnesses Take any medicines including prescription, rjlz-ecv-kiivbhm medicines, vitamins, and herbal products. How do [...] NG or OG that is size 12 Belarusian (FR) or larger. If you miss a [...] to treat people with COVID-19. Go to https://www.fda.gov/ybwuiunec-ckjuavfbnqec-vzw-response/bia-zrhnbmveprghjyx-qpk- policy-framework/hccwjzihx-ccg-wktfoclqcgfhl for more information. It is your choice [...] to FDA MedWatch at www.fda.gov/medwatch or call 6-490-TWQ-1319 (1988.102.6087). How should I store LAGEVRIO? Store LAGEVRIO capsules at room temperature between 68 F to 77 F (20 C to 25 C). Keep LAGEVRIO and all medicines out of the reach of children. How can I learn more about COVID-19? Ask your healthcare provider. Visit www.cdc.gov/COVID19 Contact your local or state public health department. Call [employer] at (toll free in the [place] Visit www.WeAreHolidays What Is an Emergency Use Authorization (EUA)? The [place] FDA has made LAGEVRIO available under an emergency access mechanism called an Emergency Use Authorization (EUA) The EUA is supported by a [place] of Health and Human Service (HHS)declaration that circumstances exist to justify emergency use of drugs and biological products during the COVID-19 pandemic. LAGEVRIO for the treatment of adults with a current diagnosis of sitj-ye-vrgodwdr COVID-19 who are at high risk for [...] be used under the EUA). Karl. for: [employer] [place] [address], [facility] For patent information: www.[employer]/research/patent Copyright [employer] [place], [place], [facility] and its affiliates. All rights reserved. [id number] Revised: August 2022 documented in this encounterUc Health08-30-2023 History of Present illness Narrative* Debby Reeves MD - 03/21/2023 1:22 PM EDT Telemedicine Evaluation for COVID-19 Infection MyChart video visit was used for evaluation of this patient. I have communicated my name and active licensure. The patient's identity and physical location wereverified at the time of this visit. Either the patient or their legal indirect sales representative has been informed of the risks [...] up discussed Molnupiravir Eligibility and Patient Discussion [facility] Formulary Restriction Criteria: Adult outpatients 18 years [...] alternatives. The patient was provided electronically withthe "Fact Sheet for Patients, Parents and Caregivers". The patient was also instructed that in addition to the treatment with molnupiravir, he/she should continue to self-isolate and use infection control measures (e.g., wear mask, isolate, social distance, avoid sharing personal items, clean and disinfect "high touch" surfaces, and frequent handwashing) according to CDC guidelines. The patient stated understanding and gave verbal consent to proceeding with molnupiravir treatment. I spent a total of 20 minutes on the date of the service which included preparing to see the patient, cglc-ge-vooy patient care, completing clinical documentation, obtaining and/or reviewing separately obtained history, performing a medically appropriate examination, counseling and educating the pat ient/family/caregiver, and ordering medications, tests, or procedures. Debby Reeves MD March 21, 2023 1:39 PM documented in this encounterUc Health08-24-2023 Miscellaneous Notes* Telephone Encounter - Tootie Ashraf - 03/15/2023 11:48 AM EDT Called patient to schedule LLE EMG and patient stated that with her situation, she is unable to go out of [place]. She said that she will find a Dr. In [place] to do an EMG. Tootie Ashraf documented in this encounterUc Health08-24-2023 History of Present illness Narrative* Brendon Ibarra APRN.CNP - 03/15/2023 10:04 AM EDT Images from the original note were not included. [facility] Today's Date: 03/15/2023 Name: Fadumo Hensley : 1995 Purpose: Established Patient Encounter This is a virtual visit via Zoom, Phone and/or Qlibrihart. It required patient- provider interaction for the medical decision making as documented below. Patient understands that privacy cannot be guaranteed. Interval History: Since last encounter, Fadumo Hensley reports: Patient presents today for follow up with new pain complaints. She states that she recently, her back "went out". In the past when this happened in the past, she would rest and take some medications and she would improve. However, this time, she went to the ED and had CT scans. She states she was referred to [facility] for further evaluation. She had lumbar [...] Pain Medications: None Non-Opioid Pain Medications: None Nejn-ldd-urhdgab (OTC) Pain Meds: Naprosyn Compliance: PDMP website checked and validated. All prescriptions have been APPROPRIATELY filled. No suspiciousactivity was identified. 03/15/2023 by Brendon Ibarra APRN.EDUCATION ADMINISTRATOR Risk Assessment: NOAH-7: NOAH - 7 SCORES [...] or double vision) Respiratory: Negative (No Cough, Qhahrmueq-lo-fotyyu, Dyspnea on exertion, wheezing) Cardiovascular: Negative (No [...] and ROS obtained by others. Brendon Ibarra APRN.EDUCATION ADMINISTRATOR Pain Management [facility] documented in this encounterUc Health08-23-2023 History of Present illness Narrative* Carmelita Millan [...] L2 SAB0 IAB0 Ectopic0 Multiple0 Live Births2 Tower [employer] Specialist History LMP: 02/13/2023 (Within Days), Having periods Age at Menarche: Age at First : Age at Menopause: Tower [employer] Specialist History Comments: Sexual Activity: Yes; Male Contraception: [...] SURGICAL HISTORY OF 01/01/2010 Removal of 4 [place] Teeth PAST SURGICAL HISTORY OF basal cell [...] Yes Types: Heroin, Marijuana Comment: Patient states "I have used multiple drugs in the past" Current Outpatient Medications Medication Sig lisdexamfetamine (VYVANSE) [...] 106/60 Pulse 95 Resp 16 Ht 5' 7" (1.70m) Wt 180 lb (81.6kg) SpO2 98% [...] LEEP. Carmelita Millan MD documented in this encounterUc Health08-23-2023 History and physical note * Carmelita Millan [...] SURGICAL HISTORY OF 01/01/2010 Removal of 4 [place] Teeth PAST SURGICAL HISTORY OF basal cell [...] Yes Types: Heroin, Marijuana Comment: Patient states "I have used multiple drugs in the past" FAMILY HISTORY: FAMILY HISTORY Problem Relation Age [...] pulse 95, resp. rate 16, height 5' 7" (1.702 m), weight 180 lb (81.6kg), last [...] allergies Carmelita Millan M.D. documented in this encounterUc Health08-22-2023 History of Present illness Narrative* Debby Reeves [...] states that she is having back pain "all over" which started a couple weeks ago and [...] SURGICAL HISTORY OF 01/01/2010 Removal of 4 [place] Teeth PAST SURGICAL HISTORY OF basal cell [...] Yes Types: Heroin, Marijuana Comment: Patient states "I have used multiple drugs in the past" Review of Symptoms REVIEW OF SYSTEMS See [...] which included preparing to see the patient, gbjf-eo-rwdu patient care, completing clinical documentation, obtaining and/or reviewing separately obtained history, performing a medically appropriate examination, counseling and educating the pat ient/family/caregiver, and ordering medications, tests, or procedures. Debby Reeves MD documented in this encounterUc Health08-22-2023 Miscellaneous Notes* Telephone Encounter - Vicky Nichols [...] RN - 03/09/2023 1:32 PM EDT Idania from [facility] calls to report patient had [...] pole. Jacinta Watkins RN documented in this encounterUc Health08-16-2023 Miscellaneous Notes* Telephone Encounter - Aliyah Stoddard LPCC - 03/07/2023 10:00 AM EDT Behavioral Health Social Work Progress Note Patient identified for [facility] from: PCP Reason for referral: Resources Behavioral Health Resources: Psychology - talk therapy, Psychiatry med management [facility] encounter type: Telephone Encounter, Qlibrihart Message Attempts to Outreach: 1 attempt Referral made: Psychiatry - External, Psychology - External, Psychology - Internal Psychology-Internal referral type: Therapy Psychology-External referral type: Therapy Psychiatry-External referral type: Medication Management Reason for external referral: Wait times at [facility] too long, Patient choice Final Disposition: Resources [...] Gaines-S March 07, 2023 documented in this encounterUc Health08-12-2023 History of Present illness Narrative* Damaso Jang MD - 03/03/2023 10:41 AM EDT Patient presents with: ER F/U HPI: Patient presents today for office visit for emergency room follow of back pain. HOSPITAL/ER FOLLOW UP: Reason for visit: back pain. Pt has a history of spinal stenosis with herniated disks. Recently hada baby and doing a lot of bending and lifting. Which facility: [facility] Date of visit: 02/16/23 Diagnosis: Lumbar back [...] a scooter to take her children to [place]. MIGRAINE: Has migraine for 2 days. Woke [...] SURGICAL HISTORY OF 01/01/2010 Removal of 4 [place] Teeth PAST SURGICAL HISTORY OF basal cell [...] Yes Types: Heroin, Marijuana Comment: Patient states "I have used multiple drugs in the past" Reviewed current medications, allergies, past medical history, [...] written. Damaso Jang MD documented in this encounterUc Health07-31-2023 Miscellaneous Notes* Telephone Encounter - Cherise Pacheco Ma - 02/19/2023 1:54 PM EDT Pt notified via Sonos rx has been sent to [facility]. Pt already read message. Cherise Pacheco Ma * Telephone Encounter - Debby Reeves MD - 02/19/2023 1:26 PM EDT Rx sent as requested. * Telephone Encounter - Yvette Cunningham RN - 02/19/2023 12:45 PM EDT Patient returned call. Given message from provider's office. She is requesting Vyvanse that was sent to [facility] be sent to [facility] [place]. Pended per request. Yvette Cunningham RN * Telephone Encounter - Vivienne Zuniga MA - 02/19/2023 12:25 PM EDT LM for patient to contact office. When patient returns call, please notify of the below as well as, Vyvanse can be somewhat expensivedepending on insurance coverage. Co-pay assistance card available at www.[facility]. Vivienne Zuniga MA * [...] loss, tremors, shaking, insomnia. documented in this encounterUc Health07-29-2023 Miscellaneous Notes* Telephone Encounter - Alem Tang RN - 02/17/2023 12:22 PM EDT Reason: Patient calling with request for letter for work. Patient states she was in the [place] emergency room last night for back pain and was referred to a general surgeon. Patient stated she is requesting a letter for work stating she was going to need a wheelchair. Patient denies any new or worsening symptoms of which a provider is not aware: Yes. Outcome: Patient advised to call [place] ER to see if she can obtain letter from provider who evaluated her and advised to schedule an ED follow up with PCP. Patient declined scheduling at this time. Alem Tang RN documented in this encounterUc Health07-28-2023 Discharge summary Author Mai [facility] February 16, 2023 11:18pm Note Date/Time February 16, 2023 5:43 pm [facility] Medical Records Department [address] [place] [address] Emergency Department Summary 02/16/23 MR#: [id number] Acct: [id number] Name: FADUMO HENSLEY Rep #:[id number] : [...] bowel or bladder incontinence, and saddle paresthesia. [facility] <ROSETTE Bae - Last Filed: 02/16/23 21:44> [facility] Medical History ADHD Anxiety Asthma Depression Gestational diabetes Headache Lower back pain depression Skin cancer Home Medications mkyjhqwm-vbu-Jv-FA 1 mg tablet 1 tab PO DAILY [...] Reaction Status Date / Time cetirizine [From [facility]] Allergy difficulty Verified 02/16/23 16:17 breathing, racing [...] lesions noted and no wounds <Dr. Mai Wang, - Last Filed: 02/16/23 23:18> Physical Exam Const Vital Signs: 02/16/23 16:18 02/16/23 20:55 Temperature 97.1 F L Temperature Source Temporal Pulse Rate 69 70 Respiratory Rate 17 16 Blood Pressure 100/76 116/61 Blood Pressure Mean 84 79 Pulse Ox 99 97 Oxygen Delivery Method Room Air Room Air MDM <ROSETTE Bae - Last Filed: 02/16/23 21:44> [facility] Narrative Medical decision making narrative: Patient presenting [...] referral for Dr. Sullivan, prescriptions for prednisone, Calumet, and naproxen. She has been given strict return instructions will be discharged with stable condition. She is comfortable with plan. Lab Data Labs: Laboratory Results - last 24 hr 02/16/23 20:12 Urine Color Yellow Urine Clarity Clear Urine pH 6.5 Ur Specific [place] 1.015 Urine Protein 15 H Urine Glucose [...] Wang, DO - Last Filed: 02/16/23 23:18> [facility] MDM Narrative Medical decision making narrative: Patient presenting [...] referral for Dr. Sullivan, prescriptions for prednisone, Calumet, and naproxen. She has been given strict [...] will give her a short course of Calumet as well as prednisone in the emergency [...] Clarity Clear Urine pH 6.5 Ur Specific [place] 1.015 Urine Protein 15 H Urine Glucose [...] mg PO DAILY Primary Care Provider: Joe eReves Referrals: Joe Reeves MD [Primary Care Provider] [...] your Primary Care Provider. Call [facility] ([phone]) or report to the closest Emergency Room. Call 911 if necessary. 02/16/23 2318 <Electronically signed by Mai Wang DO> Cosigner Signature (if applicable): 02/16/23 2144 <Electronically signed by Sveta DINERO> CC: Dr. Joe Reeves MD ~ Signed [facility] Work Phone: 1(797) 984-134807-26-2023 History of Present illness Narrative* Debby Reeves [...] SURGICAL HISTORY OF 01/01/2010 Removal of 4 [place] Teeth PAST SURGICAL HISTORY OF basal cell [...] Yes Types: Heroin, Marijuana Comment: Patient states "I have used multiple drugs in the past" Review of Symptoms REVIEW OF SYSTEMS GENERAL: No weight loss, malaise or fevers RESPIRATORY: Negative for cough, hemoptysis, wheezing, COPD, dyspnea or shortness of breath CARDIOVASCULAR: Negative for chest pain, leg swelling, hypertension, CHF or palpitations EXAM: Resp 16 Ht 170.2 cm (5' 7") Wt 83.9 kg (185 lb) LMP 02/22/2022 [...] Moderate Debby Reeves MD documented in this encounterUc Health07-05-2023 History of Present illness Narrative* Kylee Gil APRN.CNP - 01/24/2023 2:47 PM EDT Virtual Visit: This is a virtual visit using [email or web address] video visit. It required patient-provider interaction for themedical decision making as documented below. I have communicated my name and active licensure. The patient s identity and physical location wereverified at the time of this visit. Either the patient or their legal indirect sales representative has been informed of the risks [...] VAGINAL RING Follow-up as needed. Kylee Gil APRN.CNP I spent a total of 15 minutes on the date of the service which included preparing to see the patient, tcns-pt-yxte patient care, completing clinical documentation, obtaining and/or reviewing separately obtained history, performing a medically appropriate examination, counseling and educating the pat ient/family/caregiver, and ordering medications, tests, or procedures. Signature: Kylee Gil APRN.CNP Date: January 24, 2023 Time: 2:47 PM documented in this encounterUc Health07-05-2023 Miscellaneous Notes* Telephone Encounter - Earle Munoz [...] back. Patricia Lakhani RN documented in this encounterUc Health06-26-2023 Miscellaneous Notes* Telephone Encounter - Carmelina Gonzalez LPN - 01/15/2023 2:13 PM EDT Patient is ok with having leep procedure done at the hospital. Would like soonest available * Telephone Encounter - Carmelita Millan MD - 01/15/2023 11:48 AM EDT At this point I am not comfortable proceeding in the office. This is not something we can stop chcf through. Once I start I have to [...] left asking pt to contact the office. Mychart message alsosent to pt. Will await further [...] advise. Joshua Delgado RN documented in this encounterUc Health06-07-2023 Miscellaneous Notes* Addendum Note - Carmelita Millan MD - 12/27/2022 2:43 PM EDTAddended by: CARMELITA MILLAN on: 12/27/2022 02:43 PM Modules accepted: Orders * Addendum Note - Varsha Vann Ma - 12/27/2022 1:43 PM EDTAddended by: VARSHA VANN MA on: 12/27/2022 01:43 PM Modules accepted: Orders documented in this encounterUc Health06-07-2023 Instructions* Patient Instructions* Varsha Soo Dev - 12/27/2022 1:18 PM EDT YOUR RECOVERY [...] contact your doctor's office. documented in this encounterUc Health06-07-2023 History of Present illness Narrative* Carmelita Millan [...] patient. Carmelita Millan MD documented in this encounterUc Health06-01-2023 Miscellaneous Notes* Telephone Encounter - Aliyah Khoury [...] schedule patient for in office colposcopy. Patricia Lakhani RN * Telephone Encounter - Chrissy Seay MD - 12/21/2022 9:37 AM EDT Doesn't look like pt had follow up - would recommend colposcopy with ECC first availablefirst. ECC was previously negative. Want to make sure nothing has changed and pt ok for LEEP ratherthan CKC. Thanks * Telephone Encounter - Carmelina Gonzalez LPN - 12/21/2022 9:08 AM EDT Patient had a 11/22/2022. Left message to call office. Does patient want Leep scheduled at hospital? When is patient returning to work? * Telephone Encounter - Earle Dann POOLE - 12/19/2022 3:57 PM EDT Pt called to schedule her LEEP. Pt was offered 01/05/23 and d/t being back to work pt is not able todo that date. Please advise where you want her worked into your schedule. Earle Dann POOLE documented in this encounterUc Health05-04-2023 Discharge summary Author Maggy Luu [facility] November 23, 2022 4:54pm Note Date/Time November 23, 2022 4:54pm [facility] Medical Records Department [address] [place] [address] Instructions for Home/Discharge Instructions 11/23/22 1653 MR#: [id number] Acct: [id number] Name: FADUMO HENSLEY Rep #:[id number] : [...] and again at 6 weeks post . [phone] Test Results: Test results from this visit [...] Reeves MD [Primary Care Provider] - 11/23/22 1654<Electronically signed by Maggy Chatman MD>Maggy Chatman MD CC: Dr. Joe Reeves MD ~ Signed [facility] Work Phone: 1(227) 734-726805-04-[address] Briones [facility] November 23, 2022 8:53am Note Date/Time November 23, 2022 8:53am [facility] Medical Records Department [address] [place] [address] Progress Note - OBGYN 11/23/22 0852 MR#: [id number] Acct: [id number] Name: FADUMO HENSLEY Rep #:[id number] : 1995 27 From: Vale Briones MD PCP: Dr. Joe Reeves MD Status :ADM IN Location: [id number] Subjective Subjective Patient reports intense cramps - [...] Cosigner Signature (if applicable): CC: ~ Signed [facility] Work Phone: 1(608) 985-966405-04-2023 History of Present illness Narrative* Joshua Delgado RN - 11/23/2022 9:09 AM EDT Patient delivered via by Dr. Millan on 11/22/22 at [facility]. See OB history. Joshua Delgado RN documented in this encounterUc Health05-03-2023 Procedure [facility]05-03-2023 History and physical note Author Dr. Millan [facility] November 22, 2022 9:10am Note Date/Time November 22, 2022 9:03am [facility] Medical Records Department [address] [facility] [place] [address] H&P Exam - SENIOR ACCOUNT CLERK 11/22/22 0900 MR#: [id number] Acct: [id number] Name: FADUMO HENSLEY Rep #:[id number] : 1995 27 From: Carmelita Millan MD PCP: Dr. Joe Reeves MD Status :ADM IN Location: [id number] HPI - General General Date of Admission: [...] Final ROSS: 11/29/22 Gestational age: 39 0/7 PFSH PFSH Medical History (Updated 11/22/22 @ 09:[address] Carmelita Millan MD) ADHD Anxiety Asthma Depression Gestational diabetes Headache Lower back pain depression Skin cancer Home Medications [id number]-qgf-[id number]-FA 1 mg tablet 1 tab PO DAILY [...] Reaction Status Date / Time cetirizine [From [facility]] Allergy difficulty Verified 10/28/22 20:56 breathing, racing [...] Reeves MD; Dr. Carmelita Millan MD~ Signed [facility] Work Phone: [phone]) 695-180704-26-2023 Instructions* Patient Instructions* Elli Bui RD - [...] exercise of 30-60 minutes documented in this encounterUc Health04-26-2023 History of Present illness Narrative* Elli Bui RD - 11/15/2022 1:45 PM EDT [facility] Nutrition Therapy: Virtual Consult - Initial Assessment I have communicated my name and active licensure. The patient s identity and physical location wereverified at the time of this visit. Either the patient or their legal indirect sales representative has been informed of the risks [...] Readings: Date: Ht: 11/15/2022 167.2 cm (5' 5.83") Weight: Last 1 Encounter Wt Readings: Date: [...] 11/15/2022 TIME: 1:48 PM documented in this encounterUc Health04-26-2023 History of Present illness Narrative* Andrew Rogers RN - 11/15/2022 10:01 AM EDT DIABETES CARE AND EDUCATION VISIT Location: [place] Type of visit: Virtual (with video) individual I have communicated my name and active licensure. The patient's identity and physical location wereverified at the time of this visit. Either the patient or their legal indirect sales representative has been informed of the risks [...] 2022 TIME: 10:01 AM documented in this encounterUc Health04-26-2023 Miscellaneous Notes* Quick Notes - Chey Melgar APRN.CNM - 11/15/2022 9:09 AM EDT BUBBA-S: Fadumo [...] recall BG fasting all below 95 and "a few" 2hr PP above 120 in last week [...] with more than 50% of the total slix-ye-xwhf time of the visit in counseling / coordination of care. documented in this encounterUc Health04-26-2023 Instructions* Patient Instructions* Malik Kee Cma - 11/15/2022 8:52 AM EDT SEQUENTIAL SCREENINGS [facility] offers sequential screenings for women who are [...] testing. It will require an appointment withour geotechnicial properties technician. This is not an ultrasound performed [...] the above symptoms, contact our office at [phone] and ask to speak with anurse. After hours, you can call doctors registry at [phone] OR call [facility] at [phone] ask to have the doctor compensation manager paged. If you consider this an emergency, dial [phone] or go to your nearest emergency department. NEED HELP? Are you dealing with a violent or abusive relationship? Are you a victim of rape or sexual assult? Call [facility] ([place]) 24 hour Crisis Hotline: 202.768.6467 or 527-767-9872. MANUAL Your Guide to a Healthy manual is now on-line. Visit [email or web address] to download your free copy documented in this encounterUc Health04-20-2023 Miscellaneous Notes* Telephone Encounter - Aliyah Khoury [...] you are in agreement. documented in this encounterUc Health04-19-2023 Miscellaneous Notes* Telephone Encounter - Marlon Cortez RN - 11/08/2022 2:35 PM EDT Patient informed and transferred to explosive operator grenade to make appointment * Telephone Encounter - [...] patient. Sulma Bartholomew APRN.CNM documented in this encounterUc Health04-19-2023 History of Past illness Narrative* Problem Noted [...] 04/13/202212/21 Overview: 04/13/2022atient was seen in the [place] [facility] for spotting on April [address] Briones for follow-up and serum quantitative hCGs were done. Patient denies any bleeding since then.TKRN Engages in vaping 04/13/2022 01/01/2023 Overview: 04/13/2022 Patient states she has been vaping nicotine for the past 5 years. She recently saw her PCP Dr. Reeves and has tried using nicotine patches. I have advised her of the [place] tobacco quit line and [facility] smoking cessation program. I have discussed the risks of vaping during and advised patient to continue trying to quit.TKRN History of macrosomia in inf ant in prior , currently 04/13/2022 01/01/2023 Overview: 04/13/2022 Patient's previous child weight was 9 pounds. TKRN Patient request for diagnostic testing 2 01/01/2023 Overview: 04/13/2022atient desires aneuploidy screening. I have given her contact information for [employer] to check on insurance coverage. Patient considering [...] 09/2501/01/2023 Overview: 09/26/19 Colposcopy ordered. Kylee Gil APRN.EDUCATION ADMINISTRATOR Vapes nicotine containing substance 09/07/2015 01/01/2023 Overview: [...] 02/04/201501/01 Routine gynecological examination 12/09/2014 09/18/2019 Overview: [facility]. Chlamydia infection 09/23/2013 09/18/2019 with adoption [...] attempt in 2010 and was admitted to [facility]. She states she last had suicidal [...] of this encounter (statuses as of 01/16/2023) [facility] History of Past illness Narrative* Problem Noted Date Resolved Date Abnormal glucose complicating 11/09/19 23 01/01/2023 Anemia during in third trimester 11/0801/01/2023 Diet [...] 04/13/202212/21 Overview: 04/13/2022atient was seen in the [place] [facility] for spotting on April [address] Briones for follow-up and serum quantitative hCGs were done. Patient denies any bleeding since then.TKRN Engages in vaping 04/13/2022 01/01/2023 Overview: 04/13/2022 Patient states she has been vaping nicotine for the past 5 years. She recently saw her PCP Dr. Reeves and has tried using nicotine patches. I have advised her of the [place] tobacco quit line and [facility] smoking cessation program. I have discussed the risks of vaping during and advised patient to continue trying to quit.TKRN History of macrosomia in inf ant in prior , currently 04/13/2022 01/01/2023 Overview: 04/13/2022 Patient's previous child weight was 9 pounds. TKRN Patient request for diagnostic testing 01/01/2023 Overview: 2Patient desires aneuploidy screening. I [...] 09/2501/01/2023 Overview: 09/26/19 Colposcopy ordered. Kylee Gil APRN.EDUCATION ADMINISTRATOR Vapes nicotine containing substance 09/07/2015 01/01/2023 Overview: [...] 02/04/201501/01 Routine gynecological examination 12/09/2014 09/18/2019 Overview: [facility]. Chlamydia infection 09/23/2013 09/18/2019 with adoption [...] attempt in 2010 and was admitted to [facility]. She states she last had suicidal [...] of this encounter (statuses as of 01/24/2023) [facility] History of Past illness Narrative* Problem Noted Date Resolved Date Abnormal glucose complicating 11/09/19 23 01/01/2023 Anemia during in third trimester 11/0801/01/2023 Diet [...] 04/13/202212/21 Overview: 04/13/2022atient was seen in the [place] [facility] for spotting on April [address] Briones for follow-up and serum quantitative hCGs were done. Patient denies any bleeding since then.TKRN Engages in vaping 04/13/2022 01/01/2023 Overview: 04/13/2022 Patient states she has been vaping nicotine for the past 5 years. She recently saw her PCP Dr. Reeves and has tried using nicotine patches. I have advised her of the [place] tobacco quit line and [facility] smoking cessation program. I have discussed the risks of vaping during and advised patient to continue trying to quit.TKRN History of macrosomia in inf ant in prior , currently 04/13/2022 01/01/2023 Overview: 04/13/2022 Patient's previous child weight was 9 pounds. TKRN Patient request for diagnostic testing 01/01/2023 Overview: 04/13/2022atient desires aneuploidy screening. I have given her contact information for [employer] to check on insurance coverage. Patient considering [...] 09/2501/01/2023 Overview: 09/26/19 Colposcopy ordered. Kylee Gil APRN.EDUCATION ADMINISTRATOR Vapes nicotine containing substance 09/07/2015 01/01/2023 Overview: [...] 02/04/201501/01 Routine gynecological examination 12/09/2014 09/18/2019 Overview: [facility]. Chlamydia infection 09/23/2013 09/18/2019 with adoption [...] attempt in 2010 and was admitted to [facility]. She states she last had suicidal [...] of this encounter (statuses as of 01/25/2023) [facility] History of Past illness Narrative* Problem Noted Date Resolved Date Abnormal glucose complicating 11/09/19 23 01/01/2023 Anemia during in third trimester 11/0801/01/2023 Diet [...] 04/13/202212/21 Overview: 04/13/2022atient was seen in the [place] [facility] for spotting on April [address] Briones for follow-up and serum quantitative hCGs were done. Patient denies any bleeding since then.TKRN Engages in vaping 04/13/2022 01/01/2023 Overview: 04/13/2022 Patient states she has been vaping nicotine for the past 5 years. She recently saw her PCP Dr. Reeves and has tried using nicotine patches. I have advised her of the [place] tobacco quit line and [facility] smoking cessation program. I have discussed the risks of vaping during and advised patient to continue trying to quit.TKRN History of macrosomia in inf ant in prior , currently 04/13/2022 01/01/2023 Overview: 04/13/2022 Patient's previous child weight was 9 pounds. TKRN Patient request for diagnostic testing 01/01/2023 Overview: 04/13/2022atient desires aneuploidy screening. I have given her contact information for [employer] to check on insurance coverage. Patient considering [...] 09/2501/01/2023 Overview: 09/26/19 Colposcopy ordered. Kylee Gil APRN.EDUCATION ADMINISTRATOR Vapes nicotine containing substance 09/07/2015 01/01/2023 Overview: [...] 02/04/201501/01 Routine gynecological examination 12/09/2014 09/18/2019 Overview: [facility]. Chlamydia infection 09/23/2013 09/18/2019 with adoption [...] attempt in 2010 and was admitted to [facility]. She states she last had suicidal [...] of this encounter (statuses as of 01/25/2023) [facility] History of Past illness Narrative* Problem Noted [...] 01/01/2023 Overview: 04/13/2022atient was seen in the [place] for spotting on April [address] Briones for follow-up and serum quantitative hCGs were done. Patient denies any bleeding since then.TKRN Engages in vaping 04/13/2022 01/01/2023 Overview: 04/13/2022 Patient states she has been vaping nicotine for the past 5 years. She recently saw her PCP Dr. Reeves and has tried using nicotine patches. I have advised her of the [place] tobacco quit line and [facility] smoking cessation program. I have discussed the risks of vaping during and advised patient to continue trying to quit.TKRN History of macrosomia in inf ant in prior , currently 04/13/2022 01/01/2023 Overview: 04/13/2022 Patient's previous child weight was 9 pounds. TKRN Patient request for diagnostic testing 04/13/2022 01/01/2023 Overview: 04/13/2022atient desires aneuploidy screening. I have given her contact information for [employer] to check on insurance coverage. Patient considering [...] 01/01/2023 Overview: 09/26/19 Colposcopy ordered. Kylee Gil APRN.EDUCATION ADMINISTRATOR Vapes nicotine containing substance 09/07/2015 01/01/2023 Overview: [...] 01/01/2023 Routine gynecological examination 12/09/2014 09/18/2019 Overview: [facility]. Chlamydia infection 09/23/2013 09/18/19 20 with [...] attempt in 2010 and was admitted to [facility]. She states she last had suicidal [...] of this encounter (statuses as of 02/15/2023) [facility] History of Past illness Narrative* Problem Noted [...] 01/01/2023 Overview: 04/13/2022atient was seen in the [place] for spotting on April [address] Briones for follow-up and serum quantitative hCGs were done. Patient denies any bleeding since then.TKRN Engages in vaping 04/13/2022 01/01/2023 Overview: 04/13/2022 Patient states she has been vaping nicotine for the past 5 years. She recently saw her PCP Dr. Reeves and has tried using nicotine patches. I have advised her of the [place] tobacco quit line and [facility] smoking cessation program. I have discussed the risks of vaping during and advised patient to continue trying to quit.TKRN History of macrosomia in inf ant in prior , currently 04/13/2022 01/01/2023 Overview: 04/13/2022 Patient's previous child weight was 9 pounds. TKRN Patient request for diagnostic testing 04/13/2022 01/01/2023 Overview: 04/13/2022atient desires aneuploidy screening. I have given her contact information for [employer] to check on insurance coverage. Patient considering [...] 01/01/2023 Overview: 09/26/19 Colposcopy ordered. Kylee Gil APRN.EDUCATION ADMINISTRATOR Vapes nicotine containing substance 09/07/2015 01/01/2023 Overview: [...] 01/01/2023 Routine gynecological examination 12/09/2014 09/18/2019 Overview: [facility]. Chlamydia infection 09/23/2013 09/18/19 20 with [...] attempt in 2010 and was admitted to [facility]. She states she last had suicidal [...] of this encounter (statuses as of 02/17/2023) [facility] History of Past illness Narrative* Problem Noted [...] 01/01/2023 Overview: 04/13/2022atient was seen in the [place] for spotting on April [address] Briones for follow-up and serum quantitative hCGs were done. Patient denies any bleeding since then.TKRN Engages in vaping 04/13/2022 01/01/2023 Overview: 04/13/2022 Patient states she has been vaping nicotine for the past 5 years. She recently saw her PCP Dr. Reeves and has tried using nicotine patches. I have advised her of the [place] tobacco quit line and [facility] smoking cessation program. I have discussed the risks of vaping during and advised patient to continue trying to quit.TKRN History of macrosomia in inf ant in prior , currently 04/13/2022 01/01/2023 Overview: 04/13/2022 Patient's previous child weight was 9 pounds. TKRN Patient request for diagnostic testing 04/13/2022 01/01/2023 Overview: 04/13/2022atient desires aneuploidy screening. I have given her contact information for [employer] to check on insurance coverage. Patient considering [...] 01/01/2023 Overview: 09/26/19 Colposcopy ordered. Kylee Gil APRN.EDUCATION ADMINISTRATOR Vapes nicotine containing substance 09/07/2015 01/01/2023 Overview: [...] 01/01/2023 Routine gynecological examination 12/09/2014 09/18/2019 Overview: [facility]. Chlamydia infection 09/23/2013 09/18/19 20 with [...] attempt in 2010 and was admitted to [facility]. She states she last had suicidal [...] of this encounter (statuses as of 02/19/2023) [facility] History of Past illness Narrative* Problem Noted [...] 01/01/2023 Overview: 04/13/2022atient was seen in the [place] [facility] for spotting on April [address] Briones for follow-up and serum quantitative hCGs were done. Patient denies any bleeding since then.TKRN Engages in vaping 04/13/2022 01/01/2023 Overview: 04/13/2022 Patient states she has been vaping nicotine for the past 5 years. She recently saw her PCP Dr. Reeves and has tried using nicotine patches. I have advised her of the [place] tobacco quit line and [facility] smoking cessation program. I have discussed the risks of vaping during and advised patient to continue trying to quit.TKRN History of macrosomia in inf ant in prior , currently 04/13/2022 01/01/2023 Overview: 04/13/2022 Patient's previous child weight was 9 pounds. TKRN Patient request for diagnostic testing 04/13/2022 01/01/2023 Overview: 04/13/2022atient desires aneuploidy screening. I have given her contact information for [employer] to check on insurance coverage. Patient considering horizon screening testing. 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 Sulma Bartholomew APRN.CNM 01/10/22- Colposcopy ordered. Sulma Bartholomew APRN.CNM Urinary incontinence 04/27/2020 020 ASCUS with positive high risk HPV cervical 09/26/2019 01/01/2023 Overview: 09/26/19 Colposcopy ordered. Kylee Gil APRN.JAMES Vapes nicotine containing substance 09/07/2015 01/01/2023 Overview: [...] 01/01/2023 Routine gynecological examination 12/09/2014 09/18/2019 Overview: [facility]. Chlamydia infection 09/23/2013 09/18/19 20 with [...] attempt in 2010 and was admitted to [facility]. She states she last had suicidal [...] of this encounter (statuses as of 03/03/2023) [facility] History of Past illness Narrative* Problem Noted [...] 01/01/2023 Overview: 04/13/2022atient was seen in the [place] [facility] for spotting on April [address] Briones for follow-up and serum quantitative hCGs were done. Patient denies any bleeding since then.TKRN Engages in vaping 04/13/2022 01/01/2023 Overview: 04/13/2022 Patient states she has been vaping nicotine for the past 5 years. She recently saw her PCP Dr. Reeves and has tried using nicotine patches. I have advised her of the [place] tobacco quit line and [facility] smoking cessation program. I have discussed the risks of vaping during and advised patient to continue trying to quit.TKRN History of macrosomia in inf ant in prior , currently 04/13/2022 01/01/2023 Overview: 04/13/2022 Patient's previous child weight was 9 pounds. TKRN Patient request for diagnostic testing 04/13/2022 01/01/2023 Overview: 04/13/2022atient desires aneuploidy screening. I have given her contact information for [employer] to check on insurance coverage. Patient considering horizon screening testing. Contact information for the [employer] rep given to patient to check on insurance coverage.Marlon Crotez RN HSIL (high grade squamous in traepithelial lesion) on Pap smear of cervix 01/10/2022 Overview: 04/26/22- HSIL on pathology - repeat colposcopy post . Sulma Bartholomew APRN.CNM 01/10/22- Colposcopy ordered. Sulma Bartholomew APRN.CNM Urinary incontinence 04/27/2020 020 ASCUS with positive high risk HPV cervical 09/26/2019 01/01/2023 Overview: 09/26/19 Colposcopy ordered. Kylee Gil APRN.JAMES Vapes nicotine containing substance 09/07/2015 01/01/2023 Overview: [...] 01/01/2023 Routine gynecological examination 12/09/2014 09/18/2019 Overview: [facility]. Chlamydia infection 09/23/2013 09/18/19 20 with [...] attempt in 2010 and was admitted to [facility]. She states she last had suicidal [...] of this encounter (statuses as of 03/07/2023) [facility] History of Past illness Narrative* Problem Noted [...] 01/01/2023 Overview: 04/13/2022atient was seen in the [place] [facility] for spotting on April [address] Briones for follow-up and serum quantitative hCGs were done. Patient denies any bleeding since then.TKRN Engages in vaping 04/13/2022 01/01/2023 Overview: 04/13/2022 Patient states she has been vaping nicotine for the past 5 years. She recently saw her PCP Dr. Reeves and has tried using nicotine patches. I have advised her of the [place] tobacco quit line and [facility] smoking cessation program. I have discussed the risks of vaping during and advised patient to continue trying to quit.TKRN History of macrosomia in inf ant in prior , currently 04/13/2022 01/01/2023 Overview: 04/13/2022 Patient's previous child weight was 9 pounds. TKRN Patient request for diagnostic testing 04/13/2022 01/01/2023 Overview: 04/13/2022atient desires aneuploidy screening. I have given her contact information for [employer] to check on insurance coverage. Patient considering [...] 01/01/2023 Overview: 09/26/19 Colposcopy ordered. Kylee Gil APRN.EDUCATION ADMINISTRATOR Vapes nicotine containing substance 09/07/2015 01/01/2023 Overview: [...] 01/01/2023 Routine gynecological examination 12/09/2014 09/18/2019 Overview: [facility]. Chlamydia infection 09/23/2013 09/18/19 18 with [...] attempt in 2010 and was admitted to [facility]. She states she last had suicidal [...] of this encounter (statuses as of 03/13/2023) [facility]04-19-2023 History of Past illness Narrative* Problem Noted [...] 01/01/2023 Overview: 04/13/2022atient was seen in the [place] for spotting on April [address] Briones for follow-up and serum quantitative hCGs were done. Patient denies any bleeding since then.TKRN Engages in vaping 04/13/2022 01/01/2023 Overview: 04/13/2022 Patient states she has been vaping nicotine for the past 5 years. She recently saw her PCP Dr. Reeves and has tried using nicotine patches. I have advised her of the [place] tobacco quit line and [facility] smoking cessation program. I have discussed the risks of vaping during and advised patient to continue trying to quit.KGRN History of macrosomia in inf ant in prior , currently 04/13/2022 01/01/2023 Overview: 04/13/2022 Patient's previous child weight was 9 pounds. TKRN Patient request for diagnostic testing 04/13/2022 01/01/2023 Overview: 04/13/2022atient desires aneuploidy screening. I have given her contact information for [employer] to check on insurance coverage. Patient considering [...] 01/01/2023 Overview: 09/26/19 Colposcopy ordered. Kylee Gil APRN.EDUCATION ADMINISTRATOR Vapes nicotine containing substance 09/07/2015 01/01/2023 Overview: [...] 01/01/2023 Routine gynecological examination 12/09/2014 09/18/2019 Overview: [facility]. Chlamydia infection 09/23/2013 09/18/19 18 with [...] attempt in 2010 and was admitted to [facility]. She states she last had suicidal [...] of this encounter (statuses as of 03/13/2023) [facility]04-19-2023 History of Past illness Narrative* Problem Noted [...] 01/01/2023 Overview: 04/13/2022atient was seen in the [place] [facility] for spotting on April [address] Briones for follow-up and serum quantitative hCGs were done. Patient denies any bleeding since then.TKRN Engages in vaping 04/13/2022 01/01/2023 Overview: 04/13/2022 Patient states she has been vaping nicotine for the past 5 years. She recently saw her PCP Dr. Reeves and has tried using nicotine patches. I have advised her of the [place] tobacco quit line and [facility] smoking cessation program. I have discussed the risks of vaping during and advised patient to continue trying to quit.TKRN History of macrosomia in inf ant in prior , currently 04/13/2022 01/01/2023 Overview: 04/13/2022 Patient's previous child weight was 9 pounds. TKRN Patient request for diagnostic testing 04/13/2022 01/01/2023 Overview: 04/13/2022atient desires aneuploidy screening. I have given her contact information for [employer] to check on insurance coverage. Patient considering [...] 01/01/2023 Overview: 09/26/19 Colposcopy ordered. Kylee Gil APRN.EDUCATION ADMINISTRATOR Vapes nicotine containing substance 09/07/2015 01/01/2023 Overview: [...] 01/01/2023 Routine gynecological examination 12/09/2014 09/18/2019 Overview: [facility]. Chlamydia infection 09/23/2013 09/18/19 18 with [...] attempt in 2010 and was admitted to [facility]. She states she last had suicidal [...] of this encounter (statuses as of 03/14/2023) [facility]04-19-2023 History of Past illness Narrative* Problem Noted [...] 01/01/2023 Overview: 04/13/2022atient was seen in the [place] [facility] for spotting on April [address] Briones for follow-up and serum quantitative hCGs were done. Patient denies any bleeding since then.TKRN Engages in vaping 04/13/2022 01/01/2023 Overview: 04/13/2022 Patient states she has been vaping nicotine for the past 5 years. She recently saw her PCP Dr. Reeves and has tried using nicotine patches. I have advised her of the [place] tobacco quit line and [facility] smoking cessation program. I have discussed [...] 01/01/2023 Overview: 09/26/19 Colposcopy ordered. Kylee Gil APRN.EDUCATION ADMINISTRATOR Vapes nicotine containing substance 09/07/2015 01/01/2023 Overview: [...] 01/01/2023 Routine gynecological examination 12/09/2014 09/18/2019 Overview: [facility]. Chlamydia infection 09/23/2013 09/18/19 18 with [...] attempt in 2010 and was admitted to [facility]. She states she last had suicidal [...] of this encounter (statuses as of 03/15/2023) [facility]04-19-2023 History of Past illness Narrative* Problem Noted [...] 01/01/2023 Overview: 04/13/2022atient was seen in the [place] [facility] for spotting on April [address] Briones for follow-up and serum quantitative hCGs were done. Patient denies any bleeding since then.TKRN Engages in vaping 04/13/2022 01/01/2023 Overview: 04/13/2022 Patient states she has been vaping nicotine for the past 5 years. She recently saw her PCP Dr. Reeves and has tried using nicotine patches. I have advised her of the [place] tobacco quit line and [facility] smoking cessation program. I have discussed the risks of vaping during and advised patient to continue trying to quit.TKRN History of macrosomia in inf ant in prior , currently 04/13/2022 01/01/2023 Overview: 04/13/2022 Patient's previous child weight was 9 pounds. TKRN Patient request for diagnostic testing 04/13/2022 01/01/2023 Overview: 04/13/2022atient desires aneuploidy screening. I have given her contact information for [employer] to check on insurance coverage. Patient considering [...] 01/01/2023 Overview: 09/26/19 Colposcopy ordered. Kylee Gil APRN.EDUCATION ADMINISTRATOR Vapes nicotine containing substance 09/07/2015 01/01/2023 Overview: [...] 01/01/2023 Routine gynecological examination 12/09/2014 09/18/2019 Overview: [facility]. Chlamydia infection 09/23/2013 09/18/19 18 with [...] attempt in 2010 and was admitted to [facility]. She states she last had suicidal [...] of this encounter (statuses as of 03/15/2023) [facility]04-19-2023 History of Past illness Narrative* Problem Noted [...] 01/01/2023 Overview: 04/13/2022atient was seen in the [place] [facility] for spotting on April [address] Briones for follow-up and serum quantitative hCGs were done. Patient denies any bleeding since then.TKRN Engages in vaping 04/13/2022 01/01/2023 Overview: 04/13/2022 Patient states she has been vaping nicotine for the past 5 years. She recently saw her PCP Dr. Reeves and has tried using nicotine patches. I have advised her of the [place] tobacco quit line and [facility] smoking cessation program. I have discussed the risks of vaping during and advised patient to continue trying to quit.TKRN History of macrosomia in inf ant in prior , currently 04/13/2022 01/01/2023 Overview: 04/13/2022 Patient's previous child weight was 9 pounds. TKRN Patient request for diagnostic testing 04/13/2022 01/01/2023 Overview: 04/13/2022atient desires aneuploidy screening. I have given her contact information for [employer] to check on insurance coverage. Patient considering [...] 09/26/2019 01/01/2023 Overview: 09/26/19 Colposcopy ordered. Kylee Gli APRN.EDUCATION ADMINISTRATOR Vapes nicotine containing substance 09/07/2015 01/01/2023 Overview: [...] 01/01/2023 Routine gynecological examination 12/09/2014 09/18/2019 Overview: [facility]. Chlamydia infection 09/23/2013 09/18/19 18 with [...] attempt in 2010 and was admitted to [facility]. She states she last had suicidal [...] of this encounter (statuses as of 03/21/2023) [facility]04-19-2023 History of Past illness Narrative* Problem Noted [...] 01/01/2023 Overview: 04/13/2022atient was seen in the [place] [facility] for spotting on April [address] Briones for follow-up and serum quantitative hCGs were done. Patient denies any bleeding since then.TKRN Engages in vaping 04/13/2022 01/01/2023 Overview: 04/13/2022 Patient states she has been vaping nicotine for the past 5 years. She recently saw her PCP Dr. Reeves and has tried using nicotine patches. I have advised her of the [place] tobacco quit line and [facility] smoking cessation program. I have discussed the risks of vaping during and advised patient to continue trying to quit.TKRN History of macrosomia in inf ant in prior , currently 04/13/2022 01/01/2023 Overview: 04/13/2022 Patient's previous child weight was 9 pounds. TKRN Patient request for diagnostic testing 04/13/2022 01/01/2023 Overview: 04/13/2022atient desires aneuploidy screening. I have given her contact information for [employer] to check on insurance coverage. Patient considering [...] 01/01/2023 Overview: 09/26/19 Colposcopy ordered. Kylee Gil APRN.EDUCATION ADMINISTRATOR Vapes nicotine containing substance 09/07/2015 01/01/2023 Overview: [...] 01/01/2023 Routine gynecological examination 12/09/2014 09/18/2019 Overview: [facility]. Chlamydia infection 09/23/2013 09/18/19 18 with [...] attempt in 2010 and was admitted to [facility]. She states she last had suicidal [...] of this encounter (statuses as of 03/21/2023) [facility]04-19-2023 History of Past illness Narrative* Problem Noted [...] 01/01/2023 Overview: 04/13/2022atient was seen in the [place] [facility] for spotting on April [address] Briones for follow-up and serum quantitative hCGs were done. Patient denies any bleeding since then.TKRN Engages in vaping 04/13/2022 01/01/2023 Overview: 04/13/2022 Patient states she has been vaping nicotine for the past 5 years. She recently saw her PCP Dr. Reeves and has tried using nicotine patches. I have advised her of the [place] tobacco quit line and [facility] smoking cessation program. I have discussed the risks of vaping during and advised patient to continue trying to quit.TKRN History of macrosomia in inf ant in prior , currently 04/13/2022 01/01/2023 Overview: 04/13/2022 Patient's previous child weight was 9 pounds. TKRN Patient request for diagnostic testing 04/13/2022 01/01/2023 Overview: 04/13/2022atient desires aneuploidy screening. I have given her contact information for [employer] to check on insurance coverage. Patient considering [...] 01/01/2023 Overview: 09/26/19 Colposcopy ordered. Kylee Gil APRN.EDUCATION ADMINISTRATOR Vapes nicotine containing substance 09/07/2015 01/01/2023 Overview: [...] 01/01/2023 Routine gynecological examination 12/09/2014 09/18/2019 Overview: [facility]. Chlamydia infection 09/23/2013 09/18/19 18 with [...] attempt in 2010 and was admitted to [facility]. She states she last had suicidal [...] of this encounter (statuses as of 04/05/2023) [facility]04-19-2023 History of Past illness Narrative* Problem Noted [...] 01/01/2023 Overview: 04/13/2022atient was seen in the [place] [facility] for spotting on April [address] Briones for follow-up and serum quantitative hCGs were done. Patient denies any bleeding since then.TKRN Engages in vaping 04/13/2022 01/01/2023 Overview: 04/13/2022 Patient states she has been vaping nicotine for the past 5 years. She recently saw her PCP Dr. Reeves and has tried using nicotine patches. I have advised her of the [place] tobacco quit line and [facility] smoking cessation program. I have discussed the risks of vaping during and advised patient to continue trying to quit.TKRN History of macrosomia in inf ant in prior , currently 04/13/2022 01/01/2023 Overview: 04/13/2022 Patient's previous child weight was 9 pounds. TKRN Patient request for diagnostic testing 04/13/2022 01/01/2023 Overview: 04/13/2022atient desires aneuploidy screening. I have given her contact information for [employer] to check on insurance coverage. Patient considering [...] 01/01/2023 Overview: 09/26/19 Colposcopy ordered. Kylee Gil APRN.EDUCATION ADMINISTRATOR Vapes nicotine containing substance 09/07/2015 01/01/2023 Overview: [...] 01/01/2023 Routine gynecological examination 12/09/2014 09/18/2019 Overview: [facility]. Chlamydia infection 09/23/2013 09/18/19 18 with [...] attempt in 2010 and was admitted to [facility]. She states she last had suicidal [...] of this encounter (statuses as of 05/07/2023) [facility]04-19-2023 History of Past illness Narrative* Problem Noted [...] 01/01/2023 Overview: 04/13/2022atient was seen in the [place] [facility] for spotting on April [address] Briones for follow-up and serum quantitative hCGs were done. Patient denies any bleeding since then.TKRN Engages in vaping 04/13/2022 01/01/2023 Overview: 04/13/2022 Patient states she has been vaping nicotine for the past 5 years. She recently saw her PCP Dr. Reeves and has tried using nicotine patches. I have advised her of the [place] tobacco quit line and [facility] smoking cessation program. I have discussed the risks of vaping during and advised patient to continue trying to quit.TKRN History of macrosomia in inf ant in prior , currently 04/13/2022 01/01/2023 Overview: 04/13/2022 Patient's previous child weight was 9 pounds. TKRN Patient request for diagnostic testing 04/13/2022 01/01/2023 Overview: 04/13/2022atient desires aneuploidy screening. I have given her contact information for [employer] to check on insurance coverage. Patient considering [...] 01/01/2023 Overview: 09/26/19 Colposcopy ordered. Kylee Gil APRN.JAMES Vapes nicotine containing substance 09/07/2015 01/01/2023 Overview: [...] 01/01/2023 Routine gynecological examination 12/09/2014 09/18/2019 Overview: [facility]. Chlamydia infection 09/23/2013 09/18/19 18 with [...] attempt in 2010 and was admitted to [facility]. She states she last had suicidal [...] of this encounter (statuses as of 05/09/2023) [facility]04-19-2023 History of Past illness Narrative* Problem Noted [...] 01/01/2023 Overview: 04/13/2022atient was seen in the [place] [facility] for spotting on April [address] Briones for follow-up and serum quantitative hCGs were done. Patient denies any bleeding since then.TKRN Engages in vaping 04/13/2022 01/01/2023 Overview: 04/13/2022 Patient states she has been vaping nicotine for the past 5 years. She recently saw her PCP Dr. Reeves and has tried using nicotine patches. I have advised her of the [place] tobacco quit line and [facility] smoking cessation program. I have discussed the risks of vaping during and advised patient to continue trying to quit.TKRN History of macrosomia in inf ant in prior , currently 04/13/2022 01/01/2023 Overview: 04/13/2022 Patient's previous child weight was 9 pounds. TKRN Patient request for diagnostic testing 04/13/2022 01/01/2023 Overview: 04/13/2022atient desires aneuploidy screening. I have given her contact information for [employer] to check on insurance coverage. Patient considering [facility] screening testing. Contact information for the [employer] rep given to patient to check on insurance coverage.Marlon Cortez RN HSIL (high grade squamous in traepithelial lesion) on Pap smear of cervix 01/10/2022 Overview: 04/26/22- HSIL on pathology - repeat colposcopy post . Sulma Bartholomew APRN.CNM 01/10/22- Colposcopy ordered. Sulma Bartholomew APRN.CNM Urinary incontinence 04/27/2020 020 ASCUS with positive high risk HPV cervical 09/26/2019 01/01/2023 Overview: 09/26/19 Colposcopy ordered. Kylee Gil APRN.EDUCATION ADMINISTRATOR Vapes nicotine containing substance 09/07/2015 01/01/2023 Overview: [...] 01/01/2023 Routine gynecological examination 12/09/2014 09/18/2019 Overview: [facility]. Chlamydia infection 09/23/2013 09/18/19 18 with [...] attempt in 2010 and was admitted to [facility]. She states she last had suicidal [...] of this encounter (statuses as of 05/14/2023) [facility]04-19-2023 History of Past illness Narrative* Problem Noted [...] 01/01/2023 Overview: 04/13/2022atient was seen in the [place] [facility] for spotting on April [address] Briones for follow-up and serum quantitative hCGs were done. Patient denies any bleeding since then.TKRN Engages in vaping 04/13/2022 01/01/2023 Overview: 04/13/2022 Patient states she has been vaping nicotine for the past 5 years. She recently saw her PCP Dr. Reeves and has tried using nicotine patches. I have advised her of the [place] tobacco quit line and [facility] smoking cessation program. I have discussed the risks of vaping during and advised patient to continue trying to quit.TKRN History of macrosomia in inf ant in prior , currently 04/13/2022 01/01/2023 Overview: 04/13/2022 Patient's previous child weight was 9 pounds. TKRN Patient request for diagnostic testing 04/13/2022 01/01/2023 Overview: 04/13/2022atient desires aneuploidy screening. I have given her contact information for [employer] to check on insurance coverage. Patient considering [...] 01/01/2023 Overview: 09/26/19 Colposcopy ordered. Kylee Gil APRN.EDUCATION ADMINISTRATOR Vapes nicotine containing substance 09/07/2015 01/01/2023 Overview: [...] 01/01/2023 Routine gynecological examination 12/09/2014 09/18/2019 Overview: [facility]. Chlamydia infection 09/23/2013 09/18/19 18 with [...] attempt in 2010 and was admitted to [facility]. She states she last had suicidal [...] of this encounter (statuses as of 05/14/2023) [facility] History of Past illness Narrative* Problem Noted [...] 01/01/2023 Overview: 04/13/2022atient was seen in the [place] [facility] for spotting on April [address] Briones for follow-up and serum quantitative hCGs were done. Patient denies any bleeding since then.TKRN Engages in vaping 04/13/2022 01/01/2023 Overview: 04/13/2022 Patient states she has been vaping nicotine for the past 5 years. She recently saw her PCP Dr. Reeves and has tried using nicotine patches. I have advised her of the [place] tobacco quit line and [facility] smoking cessation program. I have discussed the risks of vaping during and advised patient to continue trying to quit.TKRN History of macrosomia in inf ant in prior , currently 04/13/2022 01/01/2023 Overview: 04/13/2022 Patient's previous child weight was 9 pounds. TKRN Patient request for diagnostic testing 04/13/2022 01/01/2023 Overview: 04/13/2022atient desires aneuploidy screening. I have given her contact information for [employer] to check on insurance coverage. Patient considering [...] 01/01/2023 Overview: 09/26/19 Colposcopy ordered. Kylee Gil APRN.EDUCATION ADMINISTRATOR Vapes nicotine containing substance 09/07/2015 01/01/2023 Overview: [...] 01/01/2023 Routine gynecological examination 12/09/2014 09/18/2019 Overview: [facility]. Chlamydia infection 09/23/2013 09/18/19 18 with [...] attempt in 2010 and was admitted to [facility]. She states she last had suicidal [...] of this encounter (statuses as of 05/14/2023) [facility] History of Past illness Narrative* Problem Noted [...] 01/01/2023 Overview: 04/13/2022atient was seen in the [place] [facility] for spotting on April [address] Briones for follow-up and serum quantitative hCGs were done. Patient denies any bleeding since then.TKRN Engages in vaping 04/13/2022 01/01/2023 Overview: 04/13/2022 Patient states she has been vaping nicotine for the past 5 years. She recently saw her PCP Dr. Reeves and has tried using nicotine patches. I have advised her of the [place] tobacco quit line and [facility] smoking cessation program. I have discussed the risks of vaping during and advised patient to continue trying to quit.TKRN History of macrosomia in inf ant in prior , currently 04/13/2022 01/01/2023 Overview: 04/13/2022 Patient's previous child weight was 9 pounds. TKRN Patient request for diagnostic testing 04/13/2022 01/01/2023 Overview: 04/13/2022atient desires aneuploidy screening. I have given her contact information for [employer] to check on insurance coverage. Patient considering [...] 01/01/2023 Overview: 09/26/19 Colposcopy ordered. Kylee Gil APRN.EDUCATION ADMINISTRATOR Vapes nicotine containing substance 09/07/2015 01/01/2023 Overview: [...] 01/01/2023 Routine gynecological examination 12/09/2014 09/18/2019 Overview: [facility]. Chlamydia infection 09/23/2013 09/18/19 18 with [...] attempt in 2010 and was admitted to [facility]. She states she last had suicidal [...] of this encounter (statuses as of 05/14/2023) [facility]-19[facility] History of Past illness Narrative* Problem Noted [...] 01/01/2023 Overview: 04/13/2022atient was seen in the [place] [facility] for spotting on April [address] Briones for follow-up and serum quantitative hCGs were done. Patient denies any bleeding since then.TKRN Engages in vaping 04/13/2022 01/01/2023 Overview: 04/13/2022 Patient states she has been vaping nicotine for the past 5 years. She recently saw her PCP Dr. Reeves and has tried using nicotine patches. I have advised her of the [place] tobacco quit line and [facility] smoking cessation program. I have discussed [...] 01/01/2023 Overview: 09/26/19 Colposcopy ordered. Kylee Gil APRN.JAMES Vapes nicotine containing substance 09/07/2015 01/01/2023 Overview: [...] 01/01/2023 Routine gynecological examination 12/09/2014 09/18/2019 Overview: [facility]. Chlamydia infection 09/23/2013 09/18/19 18 with [...] attempt in 2010 and was admitted to [facility]. She states she last had suicidal [...] of this encounter (statuses as of 05/14/2023) [facility] History of Past illness Narrative* Problem Noted [...] 01/01/2023 Overview: 04/13/2022atient was seen in the [place] [facility] for spotting on April [address] Briones for follow-up and serum quantitative hCGs were done. Patient denies any bleeding since then.TKRN Engages in vaping 04/13/2022 01/01/2023 Overview: 04/13/2022 Patient states she has been vaping nicotine for the past 5 years. She recently saw her PCP Dr. Reeves and has tried using nicotine patches. I have advised her of the [place] tobacco quit line and [facility] smoking cessation program. I have discussed the risks of vaping during and advised patient to continue trying to quit.TKRN History of macrosomia in inf ant in prior , currently 04/13/2022 01/01/2023 Overview: 04/13/2022 Patient's previous child weight was 9 pounds. TKRN Patient request for diagnostic testing 04/13/2022 01/01/2023 Overview: 04/13/2022atient desires aneuploidy screening. I have given her contact information for [employer] to check on insurance coverage. Patient considering [...] 01/01/2023 Overview: 09/26/19 Colposcopy ordered. Kylee Gil APRN.EDUCATION ADMINISTRATOR Vapes nicotine containing substance 09/07/2015 01/01/2023 Overview: [...] 01/01/2023 Routine gynecological examination 12/09/2014 09/18/2019 Overview: [facility]. Chlamydia infection 09/23/2013 09/18/19 18 with [...] attempt in 2010 and was admitted to [facility]. She states she last had suicidal [...] of this encounter (statuses as of 05/30/2023) [facility] History of Past illness Narrative* Problem Noted [...] 01/01/2023 Overview: 04/13/2022atient was seen in the [place] [facility] for spotting on April [address] Briones for follow-up and serum quantitative hCGs were done. Patient denies any bleeding since then.TKRN Engages in vaping 04/13/2022 01/01/2023 Overview: 04/13/2022 Patient states she has been vaping nicotine for the past 5 years. She recently saw her PCP Dr. Reeves and has tried using nicotine patches. I have advised her of the [place] tobacco quit line and [facility] smoking cessation program. I have discussed the risks of vaping during and advised patient to continue trying to quit.TKRN History of macrosomia in inf ant in prior , currently 04/13/2022 01/01/2023 Overview: 04/13/2022 Patient's previous child weight was 9 pounds. TKRN Patient request for diagnostic testing 04/13/2022 01/01/2023 Overview: 04/13/2022atient desires aneuploidy screening. I have given her contact information for [employer] to check on insurance coverage. Patient considering [...] 01/01/2023 Overview: 09/26/19 Colposcopy ordered. Kylee Gil APRN.EDUCATION ADMINISTRATOR Vapes nicotine containing substance 09/07/2015 01/01/2023 Overview: [...] 01/01/2023 Routine gynecological examination 12/09/2014 09/18/2019 Overview: [facility]. Chlamydia infection 09/23/2013 09/18/19 18 with [...] attempt in 2010 and was admitted to [facility]. She states she last had suicidal [...] of this encounter (statuses as of 05/30/2023) [facility]04-19-2023 History of Past illness Narrative* Problem Noted [...] 01/01/2023 Overview: 04/13/2022atient was seen in the [place] [facility] for spotting on April [address] Briones for follow-up and serum quantitative hCGs were done. Patient denies any bleeding since then.TKRN Engages in vaping 04/13/2022 01/01/2023 Overview: 04/13/2022 Patient states she has been vaping nicotine for the past 5 years. She recently saw her PCP Dr. Reeves and has tried using nicotine patches. I have advised her of the [place] tobacco quit line and [facility] smoking cessation program. I have discussed the risks of vaping during and advised patient to continue trying to quit.TKRN History of macrosomia in inf ant in prior , currently 04/13/2022 01/01/2023 Overview: 04/13/2022 Patient's previous child weight was 9 pounds. TKRN Patient request for diagnostic testing 04/13/2022 01/01/2023 Overview: 04/13/2022atient desires aneuploidy screening. I have given her contact information for [employer] to check on insurance coverage. Patient considering [...] 01/01/2023 Overview: 09/26/19 Colposcopy ordered. Kylee Gil APRN.EDUCATION ADMINISTRATOR Vapes nicotine containing substance 09/07/2015 01/01/2023 Overview: [...] 01/01/2023 Routine gynecological examination 12/09/2014 09/18/2019 Overview: [facility]. Chlamydia infection 09/23/2013 09/18/19 18 with [...] attempt in 2010 and was admitted to [facility]. She states she last had suicidal [...] of this encounter (statuses as of 05/31/2023) [facility]04-19-2023 History of Past illness Narrative* Problem Noted [...] 01/01/2023 Overview: 04/13/2022atient was seen in the [place] [facility] for spotting on April [address] Briones for follow-up and serum quantitative hCGs were done. Patient denies any bleeding since then.TKRN Engages in vaping 04/13/2022 01/01/2023 Overview: 04/13/2022 Patient states she has been vaping nicotine for the past 5 years. She recently saw her PCP Dr. Reeves and has tried using nicotine patches. I have advised her of the [place] tobacco quit line and [facility] smoking cessation program. I have discussed the risks of vaping during and advised patient to continue trying to quit.TKRN History of macrosomia in inf ant in prior , currently 04/13/2022 01/01/2023 Overview: 04/13/2022 Patient's previous child weight was 9 pounds. TKRN Patient request for diagnostic testing 04/13/2022 01/01/2023 Overview: 04/13/2022atient desires aneuploidy screening. I have given her contact information for [employer] to check on insurance coverage. Patient considering horizon screening testing. 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 Sulma Bartholomew APRN.CNM 01/10/22- Colposcopy ordered. Sulma Bartholomew APRN.CNM Urinary incontinence 04/27/2020 10/07/2 020 ASCUS with positive high risk HPV cervical 09/26/2019 01/01/2023 Overview: 09/26/19 Colposcopy ordered. Kylee Gil APRN.EDUCATION ADMINISTRATOR Vapes nicotine containing substance 09/07/2015 01/01/2023 Overview: [...] 01/01/2023 Routine gynecological examination 12/09/2014 09/18/2019 Overview: [facility]. Chlamydia infection 09/23/2013 09/18/19 18 with [...] attempt in 2010 and was admitted to [facility]. She states she last had suicidal [...] of this encounter (statuses as of 05/31/2023) [facility]04-19-2023 History of Past illness Narrative* Problem Noted [...] 01/01/2023 Overview: 04/13/2022atient was seen in the [place] [facility] for spotting on April [address] Briones for follow-up and serum quantitative hCGs were done. Patient denies any bleeding since then.TKRN Engages in vaping 04/13/2022 01/01/2023 Overview: 04/13/2022 Patient states she has been vaping nicotine for the past 5 years. She recently saw her PCP Dr. Reeves and has tried using nicotine patches. I have advised her of the [place] tobacco quit line and [facility] smoking cessation program. I have discussed the risks of vaping during and advised patient to continue trying to quit.TKRN History of macrosomia in inf ant in prior , currently 04/13/2022 01/01/2023 Overview: 04/13/2022 Patient's previous child weight was 9 pounds. TKRN Patient request for diagnostic testing 04/13/2022 01/01/2023 Overview: 04/13/2022atient desires aneuploidy screening. I have given her contact information for [employer] to check on insurance coverage. Patient considering [...] 01/01/2023 Overview: 09/26/19 Colposcopy ordered. Kylee Gil APRN.EDUCATION ADMINISTRATOR Vapes nicotine containing substance 09/07/2015 01/01/2023 Overview: [...] 01/01/2023 Routine gynecological examination 12/09/2014 09/18/2019 Overview: [facility]. Chlamydia infection 09/23/2013 09/18/19 18 with [...] attempt in 2010 and was admitted to [facility]. She states she last had suicidal [...] of this encounter (statuses as of 06/05/2023) [facility]04-19-2023 History of Past illness Narrative* Problem Noted [...] 01/01/2023 Overview: 04/13/2022atient was seen in the [place] [facility] for spotting on April [address] Briones for follow-up and serum quantitative hCGs were done. Patient denies any bleeding since then.TKRN Engages in vaping 04/13/2022 01/01/2023 Overview: 04/13/2022 Patient states she has been vaping nicotine for the past 5 years. She recently saw her PCP Dr. Reeves and has tried using nicotine patches. I have advised her of the [place] tobacco quit line and [facility] smoking cessation program. I have discussed the risks of vaping during and advised patient to continue trying to quit.TKRN History of macrosomia in inf ant in prior , currently 04/13/2022 01/01/2023 Overview: 04/13/2022 Patient's previous child weight was 9 pounds. TKRN Patient request for diagnostic testing 04/13/2022 01/01/2023 Overview: 04/13/2022atient desires aneuploidy screening. I have given her contact information for [employer] to check on insurance coverage. Patient considering horizon screening testing. Contact information for the [employer] rep given to patient to check on insurance coverage.Marlon Cortez RN HSIL (high grade squamous in traepithelial lesion) on Pap smear of cervix 01/10/2022 Overview: 04/26/22- HSIL on pathology - repeat colposcopy post . Sulma Bartholomew APRN.JULISSA 01/10/22- Colposcopy ordered. Sulma Bartholomew APRN.JULISSA Urinary incontinence 04/27/2020 020 ASCUS with positive high risk HPV cervical 09/26/2019 01/01/2023 Overview: 09/26/19 Colposcopy ordered. Kylee Gil APRN.EDUCATION ADMINISTRATOR Vapes nicotine containing substance 09/07/2015 01/01/2023 Overview: [...] 01/01/2023 Routine gynecological examination 12/09/2014 09/18/2019 Overview: [facility]. Chlamydia infection 09/23/2013 09/18/19 18 with [...] attempt in 2010 and was admitted to [facility]. She states she last had suicidal [...] of this encounter (statuses as of 06/06/2023) [facility]04-19-2023 History of Past illness Narrative* Problem Noted [...] SW Spotting in early 04/13/2022 01/01/2023 Overview: 2Patient was seen in the [place] [facility] for spotting on April [address] Briones for follow-up and serum quantitative hCGs were done. Patient denies any bleeding since then.TKRN Engages in vaping 04/13/2022 01/01/2023 Overview: 04/13/2022 Patient states she has been vaping nicotine for the past 5 years. She recently saw her PCP Dr. Reeves and has tried using nicotine patches. I have advised her of the [place] tobacco quit line and [facility] smoking cessation program. I have discussed the risks of vaping during and advised patient to continue trying to quit.TKRN History of macrosomia in inf ant in prior , currently 04/13/2022 01/01/2023 Overview: 04/13/2022 Patient's previous child weight was 9 pounds. TKRN Patient request for diagnostic testing 04/13/2022 01/01/2023 Overview: 04/13/2022atient desires aneuploidy screening. I have given her contact information for [employer] to check on insurance coverage. Patient considering [...] 01/01/2023 Overview: 09/26/19 Colposcopy ordered. Kylee Gil APRN.JAMES Vapes nicotine containing substance 09/07/2015 01/01/2023 Overview: [...] 01/01/2023 Routine gynecological examination 12/09/2014 09/18/2019 Overview: [facility]. Chlamydia infection 09/23/2013 09/18/19 18 with [...] attempt in 2010 and was admitted to [facility]. She states she last had suicidal [...] of this encounter (statuses as of 06/06/2023) [facility]04-19-2023 History of Past illness Narrative* Problem Noted [...] 01/01/2023 Overview: 04/13/2022atient was seen in the [place] [facility] for spotting on April [address] Briones for follow-up and serum quantitative hCGs were done. Patient denies any bleeding since then.TKRN Engages in vaping 04/13/2022 01/01/2023 Overview: 04/13/2022 Patient states she has been vaping nicotine for the past 5 years. She recently saw her PCP Dr. Reeves and has tried using nicotine patches. I have advised her of the [place] tobacco quit line and [facility] smoking cessation program. I have discussed the risks of vaping during and advised patient to continue trying to quit.TKRN History of macrosomia in inf ant in prior , currently 04/13/2022 01/01/2023 Overview: 04/13/2022 Patient's previous child weight was 9 pounds. TKRN Patient request for diagnostic testing 04/13/2022 01/01/2023 Overview: 04/13/2022atient desires aneuploidy screening. I have given her contact information for [employer] to check on insurance coverage. Patient considering [...] 01/01/2023 Overview: 09/26/19 Colposcopy ordered. Kylee Gil APRN.EDUCATION ADMINISTRATOR Vapes nicotine containing substance 09/07/2015 01/01/2023 Overview: [...] 01/01/2023 Routine gynecological examination 12/09/2014 09/18/2019 Overview: [facility]. Chlamydia infection 09/23/2013 09/18/19 18 with [...] attempt in 2010 and was admitted to [facility]. She states she last had suicidal [...] of this encounter (statuses as of 06/10/2023) [facility]04-19-2023 History of Past illness Narrative* Problem Noted [...] 01/01/2023 Overview: 04/13/2022atient was seen in the [place] [facility] for spotting on April [address] Briones for follow-up and serum quantitative hCGs were done. Patient denies any bleeding since then.TKRN Engages in vaping 04/13/2022 01/01/2023 Overview: 04/13/2022 Patient states she has been vaping nicotine for the past 5 years. She recently saw her PCP Dr. Reeves and has tried using nicotine patches. I have advised her of the [place] tobacco quit line and [facility] smoking cessation program. I have discussed the risks of vaping during and advised patient to continue trying to quit.TKRN History of macrosomia in inf ant in prior , currently 04/13/2022 01/01/2023 Overview: 04/13/2022 Patient's previous child weight was 9 pounds. TKRN Patient request for diagnostic testing 04/13/2022 01/01/2023 Overview: 04/13/2022atient desires aneuploidy screening. I have given her contact information for [employer] to check on insurance coverage. Patient considering [...] 01/01/2023 Overview: 09/26/19 Colposcopy ordered. Kylee Gil APRN.EDUCATION ADMINISTRATOR Vapes nicotine containing substance 09/07/2015 01/01/2023 Overview: [...] 01/01/2023 Routine gynecological examination 12/09/2014 09/18/2019 Overview: [facility]. Chlamydia infection 09/23/2013 09/18/19 20 with adoption [...] attempt in 2010 and was admitted to [facility]. She states she last had suicidal [...] of this encounter (statuses as of 06/16/2023) [facility]04-19-2023 History of Past illness Narrative* Problem Noted [...] 01/01/2023 Overview: 04/13/2022atient was seen in the [place] [facility] for spotting on April [address] Briones for follow-up and serum quantitative hCGs were done. Patient denies any bleeding since then.TKRN Engages in vaping 04/13/2022 01/01/2023 Overview: 04/13/2022 Patient states she has been vaping nicotine for the past 5 years. She recently saw her PCP Dr. Reeves and has tried using nicotine patches. I have advised her of the [place] tobacco quit line and [facility] smoking cessation program. I have discussed the risks of vaping during and advised patient to continue trying to quit.TKRN History of macrosomia in inf ant in prior , currently 04/13/2022 01/01/2023 Overview: 04/13/2022 Patient's previous child weight was 9 pounds. TKRN Patient request for diagnostic testing 04/13/2022 01/01/2023 Overview: 04/13/2022atient desires aneuploidy screening. I have given her contact information for [employer] to check on insurance coverage. Patient considering [...] 01/01/2023 Overview: 09/26/19 Colposcopy ordered. Kylee Gil APRN.EDUCATION ADMINISTRATOR Vapes nicotine containing substance 09/07/2015 01/01/2023 Overview: [...] 01/01/2023 Routine gynecological examination 12/09/2014 09/18/2019 Overview: [facility]. Chlamydia infection 09/23/2013 09/18/19 18 with [...] attempt in 2010 and was admitted to [facility]. She states she last had suicidal [...] of this encounter (statuses as of 07/04/2023) [facility]04-19-2023 History of Past illness Narrative* Problem Noted [...] 01/01/2023 Overview: 04/13/2022atient was seen in the [place] [facility] for spotting on April [address] Briones for follow-up and serum quantitative hCGs were done. Patient denies any bleeding since then.TKRN Engages in vaping 04/13/2022 01/01/2023 Overview: 04/13/2022 Patient states she has been vaping nicotine for the past 5 years. She recently saw her PCP Dr. Reeves and has tried using nicotine patches. I have advised her of the [place] tobacco quit line and [facility] smoking cessation program. I have discussed [...] 01/01/2023 Overview: 09/26/19 Colposcopy ordered. Kylee Gil APRN.EDUCATION ADMINISTRATOR Vapes nicotine containing substance 09/07/2015 01/01/2023 Overview: [...] 01/01/2023 Routine gynecological examination 12/09/2014 09/18/2019 Overview: [facility]. Chlamydia infection 09/23/2013 09/18/19 18 with [...] attempt in 2010 and was admitted to [facility]. She states she last had suicidal [...] of this encounter (statuses as of 07/05/2023) [facility]-19-2023 History of Past illness Narrative* Problem Noted Date Diagnosed Date Resolved Date Abnormal glucose complicating 11/08/2022 01/01/2023 Anemia during in third trimester 11/08/2022 01/01/2023 Diet controlled gestational diabetes mellitus (GDM) in second trimester 11/08/2022 01/01/2023 Overview: 11/08/22- 2 levels out of 3 elevated. Supplies and referrals ordered. Sulma Plotts, SENIOR COMMUNICATIONS SPECIALIST.CNM Positive GBS test 11/06/2022 01/01/2023 Elevated glucose [...] 01/01/2023 Overview: 04/13/2022atient was seen in the [place] [facility] for spotting on April [address] Briones for follow-up and serum quantitative hCGs were done. Patient denies any bleeding since then.TKRN Engages in vaping 04/13/2022 01/01/2023 Overview: 04/13/2022 Patient states she has been vaping nicotine for the past 5 years. She recently saw her PCP Dr. Reeves and has tried using nicotine patches. I have advised her of the [place] tobacco quit line and [facility] smoking cessation program. I have discussed [...] 01/01/2023 Overview: 09/26/19 Colposcopy ordered. Kylee Gil APRN.EDUCATION ADMINISTRATOR Vapes nicotine containing substance 09/07/2015 01/01/2023 Overview: [...] 01/01/2023 Routine gynecological examination 12/09/2014 09/18/2019 Overview: [facility]. Chlamydia infection 09/23/2013 09/18/19 18 with [...] attempt in 2010 and was admitted to [facility]. She states she last had suicidal [...] of this encounter (statuses as of 07/06/2023) [facility]04-19-20[facility] History of Past illness Narrative* Problem Noted [...] 01/01/2023 Overview: 04/13/2022atient was seen in the [place] [facility] for spotting on April [address] Briones for follow-up and serum quantitative hCGs were done. Patient denies any bleeding since then.TKRN Engages in vaping 04/13/2022 01/01/2023 Overview: 04/13/2022 Patient states she has been vaping nicotine for the past 5 years. She recently saw her PCP Dr. Reeves and has tried using nicotine patches. I have advised her of the [place] tobacco quit line and [facility] smoking cessation program. I have discussed the risks of vaping during and advised patient to continue trying to quit.TKRN History of macrosomia in inf ant in prior , currently 04/13/2022 01/01/2023 Overview: 04/13/2022 Patient's previous child weight was 9 pounds. TKRN Patient request for diagnostic testing 04/13/2022 01/01/2023 Overview: 04/13/2022atient desires aneuploidy screening. I have given her contact information for [employer] to check on insurance coverage. Patient considering horizon screening testing. Contact information for the [employer] rep given to patient to check on insurance coverage.Marlon Cortez RN HSIL (high grade squamous in traepithelial lesion) on Pap smear of cervix 01/10/2022 Overview: 04/26/22- HSIL on pathology - repeat colposcopy post . Sulma Bartholomew APRN.JULISSA 01/10/22- Colposcopy ordered. Sulma Bartholomew APRN.JULISSA Urinary incontinence 04/27/2020 020 ASCUS with positive high risk HPV cervical 09/26/2019 01/01/2023 Overview: 09/26/19 Colposcopy ordered. Kylee Gil APRN.EDUCATION ADMINISTRATOR Vapes nicotine containing substance 09/07/2015 01/01/2023 Overview: [...] 01/01/2023 Routine gynecological examination 12/09/2014 09/18/2019 Overview: [facility]. Chlamydia infection 09/23/2013 09/18/19 18 with [...] attempt in 2010 and was admitted to [facility]. She states she last had suicidal [...] of this encounter (statuses as of 08/31/2023) [facility]19[facility] History of Past illness Narrative* Problem Noted [...] 01/01/2023 Overview: 04/13/2022atient was seen in the [place] [facility] for spotting on April [address] Briones for follow-up and serum quantitative hCGs were done. Patient denies any bleeding since then.TKRN Engages in vaping 04/13/2022 01/01/2023 Overview: 04/13/2022 Patient states she has been vaping nicotine for the past 5 years. She recently saw her PCP Dr. Reeves and has tried using nicotine patches. I have advised her of the [place] tobacco quit line and [facility] smoking cessation program. I have discussed the risks of vaping during and advised patient to continue trying to quit.TKRN History of macrosomia in inf ant in prior , currently 04/13/2022 01/01/2023 Overview: 04/13/2022 Patient's previous child weight was 9 pounds. TKRN Patient request for diagnostic testing 04/13/2022 01/01/2023 Overview: 04/13/2022atient desires aneuploidy screening. I have given her contact information for [employer] to check on insurance coverage. Patient considering [...] 01/01/2023 Overview: 09/26/19 Colposcopy ordered. Kylee Gil APRN.EDUCATION ADMINISTRATOR Vapes nicotine containing substance 09/07/2015 01/01/2023 Overview: [...] 01/01/2023 Routine gynecological examination 12/09/2014 09/18/2019 Overview: [facility]. Chlamydia infection 09/23/2013 09/18/19 18 with [...] attempt in 2010 and was admitted to [facility]. She states she last had suicidal [...] of this encounter (statuses as of 09/03/2023) [facility] History of Past illness Narrative* Problem Noted [...] 01/01/2023 Overview: 04/13/2022atient was seen in the [place] [facility] for spotting on April [address] Briones for follow-up and serum quantitative hCGs were done. Patient denies any bleeding since then.TKRN Engages in vaping 04/13/2022 01/01/2023 Overview: 04/13/2022 Patient states she has been vaping nicotine for the past 5 years. She recently saw her PCP Dr. Reeves and has tried using nicotine patches. I have advised her of the [place] tobacco quit line and [facility] smoking cessation program. I have discussed the risks of vaping during and advised patient to continue trying to quit.TKRN History of macrosomia in inf ant in prior , currently 04/13/2022 01/01/2023 Overview: 04/13/2022 Patient's previous child weight was 9 pounds. TKRN Patient request for diagnostic testing 04/13/2022 01/01/2023 Overview: 04/13/2022atient desires aneuploidy screening. I have given her contact information for [employer] to check on insurance coverage. Patient considering horizon screening testing. 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 Sulma Bartholomew APRN.CNM 01/10/22- Colposcopy ordered. Sulma Bartholomew APRN.CNM Urinary incontinence 04/27/2020 020 ASCUS with positive high risk HPV cervical 09/26/2019 01/01/2023 Overview: 09/26/19 Colposcopy ordered. Kylee Gil APRN.EDUCATION ADMINISTRATOR Vapes nicotine containing substance 09/07/2015 01/01/2023 Overview: [...] 01/01/2023 Routine gynecological examination 12/09/2014 09/18/2019 Overview: [facility]. Chlamydia infection 09/23/2013 09/18/19 18 with [...] attempt in 2010 and was admitted to [facility]. She states she last had suicidal [...] of this encounter (statuses as of 09/04/2023) [facility] History of Past illness Narrative* Problem Noted [...] 01/01/2023 Overview: 04/13/2022atient was seen in the [place] [facility] for spotting on April [address] Briones for follow-up and serum quantitative hCGs were done. Patient denies any bleeding since then.TKRN Engages in vaping 04/13/2022 01/01/2023 Overview: 04/13/2022 Patient states she has been vaping nicotine for the past 5 years. She recently saw her PCP Dr. Reeves and has tried using nicotine patches. I have advised her of the [place] tobacco quit line and [facility] smoking cessation program. I have discussed the risks of vaping during and advised patient to continue trying to quit.TKRN History of macrosomia in inf ant in prior , currently 04/13/2022 01/01/2023 Overview: 04/13/2022 Patient's previous child weight was 9 pounds. TKRN Patient request for diagnostic testing 04/13/2022 01/01/2023 Overview: 04/13/2022atient desires aneuploidy screening. I have given her contact information for [employer] to check on insurance coverage. Patient considering [...] 01/01/2023 Overview: 09/26/19 Colposcopy ordered. Kylee Gil APRN.EDUCATION ADMINISTRATOR Vapes nicotine containing substance 09/07/2015 01/01/2023 Overview: [...] 01/01/2023 Routine gynecological examination 12/09/2014 09/18/2019 Overview: [facility]. Chlamydia infection 09/23/2013 09/18/19 18 with [...] attempt in 2010 and was admitted to [facility]. She states she last had suicidal [...] of this encounter (statuses as of 09/13/2023) [facility] History of Past illness Narrative* Problem Noted [...] 01/01/2023 Overview: 04/13/2022atient was seen in the [place] [facility] for spotting on April [address] Briones for follow-up and serum quantitative hCGs were done. Patient denies any bleeding since then.TKRN Engages in vaping 04/13/2022 01/01/2023 Overview: 04/13/2022 Patient states she has been vaping nicotine for the past 5 years. She recently saw her PCP Dr. Reeves and has tried using nicotine patches. I have advised her of the [place] tobacco quit line and [facility] smoking cessation program. I have discussed the risks of vaping during and advised patient to continue trying to quit.TKRN History of macrosomia in inf ant in prior , currently 04/13/2022 01/01/2023 Overview: 04/13/2022 Patient's previous child weight was 9 pounds. TKRN Patient request for diagnostic testing 04/13/2022 01/01/2023 Overview: 04/13/2022atient desires aneuploidy screening. I have given her contact information for [employer] to check on insurance coverage. Patient considering [...] 01/01/2023 Overview: 09/26/19 Colposcopy ordered. Kylee Gil APRN.EDUCATION ADMINISTRATOR Vapes nicotine containing substance 09/07/2015 01/01/2023 Overview: [...] 01/01/2023 Routine gynecological examination 12/09/2014 09/18/2019 Overview: [facility]. Chlamydia infection 09/23/2013 09/18/19 18 with [...] attempt in 2010 and was admitted to [facility]. She states she last had suicidal [...] of this encounter (statuses as of 09/14/2023) [facility]04-19-20[facility] History of Past illness Narrative* Problem Noted [...] SW Spotting in early 04/13/2022 01/01/2023 Overview: 2Patient was seen in the [place] for spotting on April [address] Briones for follow-up and serum quantitative hCGs were done. Patient denies any bleeding since then.TKRN Engages in vaping 04/13/2022 01/01/2023 Overview: 04/13/2022 Patient states she has been vaping nicotine for the past 5 years. She recently saw her PCP Dr. Reeves and has tried using nicotine patches. I have advised her of the [place] tobacco quit line and [facility] smoking cessation program. I have discussed the risks of vaping during and advised patient to continue trying to quit.TKRN History of macrosomia in inf ant in prior , currently 04/13/2022 01/01/2023 Overview: 04/13/2022 Patient's previous child weight was 9 pounds. TKRN Patient request for diagnostic testing 04/13/2022 01/01/2023 Overview: 04/13/2022atient desires aneuploidy screening. I have given her contact information for [employer] to check on insurance coverage. Patient considering horizon screening testing. Contact information for the [employer] rep given to patient to check on insurance coverage.Marlon Cortez RN HSIL (high grade squamous in traepithelial lesion) on Pap smear of cervix 01/10/2022 Overview: 04/26/22- HSIL on pathology - repeat colposcopy post . Sulma Bartholomew APRN.CNM 01/10/22- Colposcopy ordered. Sulma Bartholomew APRN.CNM Urinary incontinence 04/27/2020 020 ASCUS with positive high risk HPV cervical 09/26/2019 01/01/2023 Overview: 09/26/19 Colposcopy ordered. Kylee Gil APRN.JAMES Vapes nicotine containing substance 09/07/2015 01/01/2023 Overview: [...] 01/01/2023 Routine gynecological examination 12/09/2014 09/18/2019 Overview: [facility]. Chlamydia infection 09/23/2013 09/18/19 18 with [...] attempt in 2010 and was admitted to [facility]. She states she last had suicidal [...] of this encounter (statuses as of 09/21/2023) [facility]04-19-20[facility] History of Past illness Narrative* Problem Noted [...] 01/01/2023 Overview: 04/13/2022atient was seen in the [place] [facility] for spotting on April [address] Briones for follow-up and serum quantitative hCGs were done. Patient denies any bleeding since then.TKRN Engages in vaping 04/13/2022 01/01/2023 Overview: 04/13/2022 Patient states she has been vaping nicotine for the past 5 years. She recently saw her PCP Dr. Reeves and has tried using nicotine patches. I have advised her of the [place] tobacco quit line and [facility] smoking cessation program. I have discussed the risks of vaping during and advised patient to continue trying to quit.TKRN History of macrosomia in inf ant in prior , currently 04/13/2022 01/01/2023 Overview: 04/13/2022 Patient's previous child weight was 9 pounds. TKRN Patient request for diagnostic testing 04/13/2022 01/01/2023 Overview: 04/13/2022atient desires aneuploidy screening. I have given her contact information for [employer] to check on insurance coverage. Patient considering [...] 01/01/2023 Overview: 09/26/19 Colposcopy ordered. Kylee Gil APRN.EDUCATION ADMINISTRATOR Vapes nicotine containing substance 09/07/2015 01/01/2023 Overview: [...] 01/01/2023 Routine gynecological examination 12/09/2014 09/18/2019 Overview: [facility]. Chlamydia infection 09/23/2013 09/18/19 18 with [...] attempt in 2010 and was admitted to [facility]. She states she last had suicidal [...] of this encounter (statuses as of 09/28/2023) [facility]-19[facility] History of Past illness Narrative* Problem Noted [...] 01/01/2023 Overview: 04/13/2022atient was seen in the [place] [facility] for spotting on April [address] Briones for follow-up and serum quantitative hCGs were done. Patient denies any bleeding since then.TKRN Engages in vaping 04/13/2022 01/01/2023 Overview: 04/13/2022 Patient states she has been vaping nicotine for the past 5 years. She recently saw her PCP Dr. Reeves and has tried using nicotine patches. I have advised her of the [place] tobacco quit line and [facility] smoking cessation program. I have discussed the risks of vaping during and advised patient to continue trying to quit.TKRN History of macrosomia in inf ant in prior , currently 04/13/2022 01/01/2023 Overview: 04/13/2022 Patient's previous child weight was 9 pounds. TKRN Patient request for diagnostic testing 04/13/2022 01/01/2023 Overview: 04/13/2022atient desires aneuploidy screening. I have given her contact information for [employer] to check on insurance coverage. Patient considering horizon screening testing. Contact information for the [employer] rep given to patient to check on insurance coverage.Marlon Cortez RN HSIL (high grade squamous in traepithelial lesion) on Pap smear of cervix 01/10/2022 3 Overview: 04/26/22- HSIL on pathology - repeat colposcopy post . Sulma Bartholomew APRN.JULISSA 01/10/22- Colposcopy ordered. Sulma Bartholomew APRN.JULISSA Urinary incontinence 04/27/2020 020 ASCUS with positive high risk HPV cervical 09/26/2019 01/01/2023 Overview: 09/26/19 Colposcopy ordered. Kylee Gil APRN.EDUCATION ADMINISTRATOR Vapes nicotine containing substance 09/07/2015 01/01/2023 Overview: [...] 01/01/2023 Routine gynecological examination 12/09/2014 09/18/2019 Overview: [facility]. Chlamydia infection 09/23/2013 09/18/19 18 with [...] attempt in 2010 and was admitted to [facility]. She states she last had suicidal [...] of this encounter (statuses as of 10/02/2023) [facility] History of Past illness Narrative* Problem Noted [...] 01/01/2023 Overview: 04/13/2022atient was seen in the [place] [facility] for spotting on April [address] Briones for follow-up and serum quantitative hCGs were done. Patient denies any bleeding since then.TKRN Engages in vaping 04/13/2022 01/01/2023 Overview: 04/13/2022 Patient states she has been vaping nicotine for the past 5 years. She recently saw her PCP Dr. Reeves and has tried using nicotine patches. I have advised her of the [place] tobacco quit line and [facility] smoking cessation program. I have discussed the risks of vaping during and advised patient to continue trying to quit.TKRN History of macrosomia in inf ant in prior , currently 04/13/2022 01/01/2023 Overview: 04/13/2022 Patient's previous child weight was 9 pounds. TKRN Patient request for diagnostic testing 04/13/2022 01/01/2023 Overview: 04/13/2022atient desires aneuploidy screening. I have given her contact information for [employer] to check on insurance coverage. Patient considering [...] 01/01/2023 Overview: 09/26/19 Colposcopy ordered. Kylee Gil APRN.EDUCATION ADMINISTRATOR Vapes nicotine containing substance 09/07/2015 01/01/2023 Overview: [...] 01/01/2023 Routine gynecological examination 12/09/2014 09/18/2019 Overview: [facility]. Chlamydia infection 09/23/2013 09/18/19 18 with [...] attempt in 2010 and was admitted to [facility]. She states she last had suicidal [...] of this encounter (statuses as of 10/02/2023) [facility] History of Past illness Narrative* Problem Noted [...] 01/01/2023 Overview: 04/13/2022atient was seen in the [place] [facility] for spotting on April [address] Briones for follow-up and serum quantitative hCGs were done. Patient denies any bleeding since then.TKRN Engages in vaping 04/13/2022 01/01/2023 Overview: 04/13/2022 Patient states she has been vaping nicotine for the past 5 years. She recently saw her PCP Dr. Reeves and has tried using nicotine patches. I have advised her of the [place] tobacco quit line and [facility] smoking cessation program. I have discussed the risks of vaping during and advised patient to continue trying to quit.TKRN History of macrosomia in inf ant in prior , currently 04/13/2022 01/01/2023 Overview: 04/13/2022 Patient's previous child weight was 9 pounds. TKRN Patient request for diagnostic testing 04/13/2022 01/01/2023 Overview: 04/13/2022atient desires aneuploidy screening. I have given her contact information for [employer] to check on insurance coverage. Patient considering [...] 01/01/2023 Overview: 09/26/19 Colposcopy ordered. Kylee Gil APRN.EDUCATION ADMINISTRATOR Vapes nicotine containing substance 09/07/2015 01/01/2023 Overview: [...] 01/01/2023 Routine gynecological examination 12/09/2014 09/18/2019 Overview: [facility]. Chlamydia infection 09/23/2013 09/18/19 18 with [...] attempt in 2010 and was admitted to [facility]. She states she last had suicidal [...] of this encounter (statuses as of 10/05/2023) [facility] History of Past illness Narrative* Problem Noted Date Diagnosed Date Resolved Date Abnormal glucose complicating 11/08/2022 01/01/2023 Anemia during in third trimester 11/08/2022 01/01/2023 Diet controlled gestational diabetes mellitus (GDM) in second trimester 11/08/2022 01/01/2023 Overview: 4/19/23- 2 levels out of 3 elevated. Supplies [...] 01/01/2023 Overview: 04/13/2022atient was seen in the [place] [facility] for spotting on April [address] Briones for follow-up and serum quantitative hCGs were done. Patient denies any bleeding since then.TKRN Engages in vaping 04/13/2022 01/01/2023 Overview: 04/13/2022 Patient states she has been vaping nicotine for the past 5 years. She recently saw her PCP Dr. Reeves and has tried using nicotine patches. I have advised her of the [place] tobacco quit line and [facility] smoking cessation program. I have discussed [...] 01/01/2023 Overview: 09/26/19 Colposcopy ordered. Kylee Gil APRN.EDUCATION ADMINISTRATOR Vapes nicotine containing substance 09/07/2015 01/01/2023 Overview: [...] 01/01/2023 Routine gynecological examination 12/09/2014 09/18/2019 Overview: [facility]. Chlamydia infection 09/23/2013 09/18/19 18 with [...] attempt in 2010 and was admitted to [facility]. She states she last had suicidal [...] of this encounter (statuses as of 10/06/2023) [facility] History of Past illness Narrative* Problem Noted [...] 01/01/2023 Overview: 04/13/2022atient was seen in the [place] for spotting on April [address] Briones for follow-up and serum quantitative hCGs were done. Patient denies any bleeding since then.TKRN Engages in vaping 04/13/2022 01/01/2023 Overview: 04/13/2022 Patient states she has been vaping nicotine for the past 5 years. She recently saw her PCP Dr. Reeves and has tried using nicotine patches. I have advised her of the [place] tobacco quit line and [facility] smoking cessation program. I have discussed the risks of vaping during and advised patient to continue trying to quit.TKRN History of macrosomia in inf ant in prior , currently 04/13/2022 01/01/2023 Overview: 04/13/2022 Patient's previous child weight was 9 pounds. TKRN Patient request for diagnostic testing 04/13/2022 01/01/2023 Overview: 04/13/2022atient desires aneuploidy screening. I have given her contact information for [employer] to check on insurance coverage. Patient considering horizon screening testing. Contact information for the [employer] rep given to patient to check on insurance coverage.Marlon Cortez RN HSIL (high grade squamous in traepithelial lesion) on Pap smear of cervix 01/10/2022 Overview: 04/26/22- HSIL on pathology - repeat colposcopy post . Sulma Bartholomew APRN.JULISSA 01/10/22- Colposcopy ordered. Sulma Bartholomew APRN.JULISSA Urinary incontinence 04/27/2020 020 ASCUS with positive high risk HPV cervical 09/26/2019 01/01/2023 Overview: 09/26/19 Colposcopy ordered. Kylee Gil APRN.EDUCATION ADMINISTRATOR Vapes nicotine containing substance 09/07/2015 01/01/2023 Overview: [...] 01/01/2023 Routine gynecological examination 12/09/2014 09/18/2019 Overview: [facility]. Chlamydia infection 09/23/2013 09/18/19 18 with [...] attempt in 2010 and was admitted to [facility]. She states she last had suicidal [...] of this encounter (statuses as of 10/09/2023) [facility] History of Past illness Narrative* Problem Noted [...] 01/01/2023 Overview: 04/13/2022atient was seen in the [place] [facility] for spotting on April [address] Briones for follow-up and serum quantitative hCGs were done. Patient denies any bleeding since then.TKRN Engages in vaping 04/13/2022 01/01/2023 Overview: 04/13/2022 Patient states she has been vaping nicotine for the past 5 years. She recently saw her PCP Dr. Reeves and has tried using nicotine patches. I have advised her of the [place] tobacco quit line and [facility] smoking cessation program. I have discussed the risks of vaping during and advised patient to continue trying to quit.TKRN History of macrosomia in inf ant in prior , currently 04/13/2022 01/01/2023 Overview: 04/13/2022 Patient's previous child weight was 9 pounds. TKRN Patient request for diagnostic testing 04/13/2022 01/01/2023 Overview: 04/13/2022atient desires aneuploidy screening. I have given her contact information for [employer] to check on insurance coverage. Patient considering [...] 01/01/2023 Overview: 09/26/19 Colposcopy ordered. Kylee Gil APRN.EDUCATION ADMINISTRATOR Vapes nicotine containing substance 09/07/2015 01/01/2023 Overview: [...] 01/01/2023 Routine gynecological examination 12/09/2014 09/18/2019 Overview: [facility]. Chlamydia infection 09/23/2013 09/18/19 18 with [...] attempt in 2010 and was admitted to [facility]. She states she last had suicidal [...] of this encounter (statuses as of 10/09/2023) [facility]19[facility] History of Past illness Narrative* Problem Noted [...] 01/01/2023 Overview: 04/13/2022atient was seen in the [place] [facility] for spotting on April [address] Briones for follow-up and serum quantitative hCGs were done. Patient denies any bleeding since then.TKRN Engages in vaping 04/13/2022 01/01/2023 Overview: 04/13/2022 Patient states she has been vaping nicotine for the past 5 years. She recently saw her PCP Dr. Reeves and has tried using nicotine patches. I have advised her of the [place] tobacco quit line and [facility] smoking cessation program. I have discussed the risks of vaping during and advised patient to continue trying to quit.TKRN History of macrosomia in inf ant in prior , currently 04/13/2022 01/01/2023 Overview: 04/13/2022 Patient's previous child weight was 9 pounds. TKRN Patient request for diagnostic testing 04/13/2022 01/01/2023 Overview: 04/13/2022atient desires aneuploidy screening. I have given her contact information for [employer] to check on insurance coverage. Patient considering horizon screening testing. 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 Sulma Bartholomew APRN.CNM 01/10/22- Colposcopy ordered. Sulma Bartholomew APRN.CNM Urinary incontinence 04/27/2020 020 ASCUS with positive high risk HPV cervical 09/26/2019 01/01/2023 Overview: 09/26/19 Colposcopy ordered. Kylee Gil APRN.EDUCATION ADMINISTRATOR Vapes nicotine containing substance 09/07/2015 01/01/2023 Overview: [...] 01/01/2023 Routine gynecological examination 12/09/2014 09/18/2019 Overview: [facility]. Chlamydia infection 09/23/2013 09/18/19 18 with [...] attempt in 2010 and was admitted to [facility]. She states she last had suicidal [...] of this encounter (statuses as of 10/09/2023) [facility]19[facility] History of Past illness Narrative* Problem Noted [...] 01/01/2023 Overview: 04/13/2022atient was seen in the [place] [facility] for spotting on April [address] Briones for follow-up and serum quantitative hCGs were done. Patient denies any bleeding since then.TKRN Engages in vaping 04/13/2022 01/01/2023 Overview: 04/13/2022 Patient states she has been vaping nicotine for the past 5 years. She recently saw her PCP Dr. Reeves and has tried using nicotine patches. I have advised her of the [place] quit line and [facility] smoking cessation program. I have discussed the risks of vaping during and advised patient to continue trying to quit.TKRN History of macrosomia in inf ant in prior , currently 04/13/2022 01/01/2023 Overview: 04/13/2022 Patient's previous child weight was 9 pounds. TKRN Patient request for diagnostic testing 04/13/2022 01/01/2023 Overview: 04/13/2022atient desires aneuploidy screening. I have given her contact information for [employer] to check on insurance coverage. Patient considering [...] 01/01/2023 Overview: 09/26/19 Colposcopy ordered. Kylee Gil APRN.EDUCATION ADMINISTRATOR Vapes nicotine containing substance 09/07/2015 01/01/2023 Overview: [...] 01/01/2023 Routine gynecological examination 12/09/2014 09/18/2019 Overview: [facility]. Chlamydia infection 09/23/2013 09/18/19 18 with [...] attempt in 2010 and was admitted to [facility]. She states she last had suicidal [...] of this encounter (statuses as of 10/12/2023) [facility] History of Past illness Narrative* Problem Noted [...] 01/01/2023 Overview: 04/13/2022atient was seen in the [place] [facility] for spotting on April [address] Briones for follow-up and serum quantitative hCGs were done. Patient denies any bleeding since then.TKRN Engages in vaping 04/13/2022 01/01/2023 Overview: 04/13/2022 Patient states she has been vaping nicotine for the past 5 years. She recently saw her PCP Dr. Reeves and has tried using nicotine patches. I have advised her of the [place] quit line and [facility] smoking cessation program. I have discussed [...] 01/01/2023 Overview: 09/26/19 Colposcopy ordered. Kylee Gil APRN.EDUCATION ADMINISTRATOR Vapes nicotine containing substance 09/07/2015 01/01/2023 Overview: [...] 01/01/2023 Routine gynecological examination 12/09/2014 09/18/2019 Overview: [facility]. Chlamydia infection 09/23/2013 09/18/19 18 with [...] attempt in 2010 and was admitted to [facility]. She states she last had suicidal [...] of this encounter (statuses as of 10/23/2023) [facility] History of Present illness Narrative* Singh Carvalho [...] take. Singh Carvalho MD documented in this encounterUc Health04-14-2023 Miscellaneous Notes* Telephone Encounter - Earle Munoz LPN - 11/03/2022 2:35 PM EDT FMLA completed, faxed to employer and scanned into EMR and filed in LOAN ADMINISTRATOR suite. Earle Munoz LPN * Telephone Encounter [...] date. Earle Munoz LPN documented in this encounterUc Health04-13-2023 Miscellaneous Notes* Result Encounter Note - Carmelita Millan MD - 11/02/2022 9:28 AM EDT Anatomy ultrasound reviewed. No abnormalities identified. Follow up as clinically indicated. Pleaseplace copy in ob chart. Carmelita Millan MD documented in this encounterUc Health04-13-2023 Miscellaneous Notes* Quick Notes - Angela Haq [...] hour ordered RTO 1 week Angela Haq APRN.JAMES documented in this encounterUc Health04-13-2023 Instructions* Patient Instructions* Lacy León Ma - 11/02/2022 8:38 AM EDT SEQUENTIAL SCREENINGS The [facility] offers sequential screenings for women who are [...] testing. It will require an appointment withour geotechnicial properties technician. This is not an ultrasound performed [...] the above symptoms, contact our office at [phone] and ask to speak with anurse. After hours, you can call doctors registry at [phone] OR call [facility] at [phone] ask to have the doctor compensation manager paged. If you consider this an emergency, dial [phone]--2 or go to your nearest emergency department. NEED HELP? Are you dealing with a violent or abusive relationship? Are you a victim of rape or sexual assult? Call [facility] 24 hour Crisis Hotline: 147.996.8931 or 239-990-8489. MANUAL Your Guide to a Healthy manual is now on-line. Visit [email or web address] to download your free copy documented in this encounterUc Health03-29-2023 Miscellaneous Notes* Quick Notes - Carmelita Millan [...] today Carmelita Millan M.D. documented in this encounterUc Health03-29-2023 Instructions* Patient Instructions* Varsha Vann Ma - 10/18/2022 8:26 AM EDT SEQUENTIAL SCREENINGS [facility] offers sequential screenings for women who are [...] testing. It will require an appointment withour geotechnicial properties technician. This is not an ultrasound performed [...] the above symptoms, contact our office at [phone] and ask to speak with anurse. After hours, you can call doctors registry at [phone] OR call [facility] at [phone] ask to have the doctor compensation manager paged. If you consider this an emergency, dial 8-7-8 or go to your nearest emergency department. NEED HELP? Are you dealing with a violent or abusive relationship? Are you a victim of rape or sexual assult? Call [facility] ([place]) 24 hour Crisis Hotline: 755.654.4365 or 130-558-2387. MANUAL Your Guide to a Healthy manual is now on-line. Visit [email or web address] to download your free copy documented in this encounterUc Health02-20-2023 Miscellaneous Notes* Telephone Encounter - Maria Antonia Olsen LPN - 09/11/2022 4:37 PM EST Patient phones requesting refills as follows: Requested Prescriptions Pending Prescriptions Disp Refills famotidine (PEPCID) 20 mg tablet 90 tablet 1 Sig: Take 1 tablet by mouth at bedtime as needed. ANAYA 08/09/22 NOV no upcoming appt noted Please review and advise. Maria Antonia Olsen LPN documented in this encounterUc Health02-07-2023 Miscellaneous Notes* Telephone Encounter - Maria Antonia [...] well. Bibi Saxena APRN.CNP documented in this encounterUc Health02-07-2023 History of Present illness Narrative* Bibi Saxena APRN.CNP - 08/29/2022 11:37 AM EST 08/29/2022 Patient [...] Yes Types: Heroin, Marijuana Comment: Patient states "I have used multiple drugs in the past" REVIEW OF SYSTEMS All other reviewed and [...] TRANSDERMAL PATCH - follow-up as needed Bibi Saxena APRN.CNP Prescription instructions reviewed with patient as applicable. [...] which included preparing to see the patient, [id number] patient care, completing clinical documentation, obtaining and/or reviewing separately obtained history, performing a medically appropriate examination, counseling and educating the pat ient/family/caregiver, ordering medications, tests, or procedures, and communicating with other HCPs (not separately reported). documented in this encounterUc Health01-24-2023 Miscellaneous Notes* Telephone Encounter - Aliyah Khoury [...] - 08/14/2022 12:40 PM EST See also [employer]t message sent to patient by Dr. Seay today with recommendations after provider spoke with infectious disease. See if patient is willing to start medications? Will need to route to provider compensation manager. Patricia Lakhani RN * Telephone Encounter - Patricia Lakhani RN - 08/14/2022 9:11 AM EST Left message to call office. Patricia Lakhani RN * Telephone Encounter - Chrisys Seay MD - 08/12/2022 10:42 AM EST [...] inseveral weeks as well. documented in this encounterUc Health01-23-2023 Miscellaneous Notes* Telephone Encounter - Patricia Lakhani [...] patient. Chey Melgar APRN.CNM documented in this encounterUc Health01-23-2023 History of Present illness Narrative* Dani Morgan [...] cannot get the hyperlink to function. https://spo.[facility].org/departments/ESIOperationsQuality/_layouts/15/WopiFrame.aspx? sourcedoc=/[facility]/ESIOperationsQuality/Initiatives%20%20Educational%20Documents/HIV%20Post-Expo sure%20Prophylaxis%2 0(PEP)%20Workflow/PRESCRIBER%20Education%20for%20HIV%20Testing%20and%20%20Antire troviral%20Nov%913266.pptx&action=default Specialist appointment needs: No appointment necessary Dani Morgan DO August 14, 2022 documented in this encounterUc Health01-20-2023 Miscellaneous Notes* Telephone Encounter - Jo Ann Wadsworth LPN - 08/11/2022 9:37 PM EST Patient calling regarding hep c exposure, 24 wks . Conferenced to [employer][ ] to speak with provider compensation manager for Dr. Magana at phone number ([phone]). Jo Ann Wadsworth LPN documented in this encounterUc Health01-18-2023 History of Present illness Narrative* Debby Reeves MD - 08/09/2022 4:27 PM EST Chief Complaint Patient presents with: Ear Pain: Bilateral ears, and throat pain x 2 weeks HPI Fadumo Hensley is a 26 year old female who presents here today for Above Complaints. Patient is currently 24 weeks . Evaluated at [facility] on 07/27 and again by Wendy Rivera [...] SURGICAL HISTORY OF 01/01/2010 Removal of 4 [place] Teeth PAST SURGICAL HISTORY OF basal cell [...] Yes Types: Heroin, Marijuana Comment: Patient states "I have used multiple drugs in the past" Review of Symptoms REVIEW OF SYSTEMS See [...] needed. Debby Reeves MD documented in this encounterUc Health01-18-2023 Miscellaneous Notes* Quick Notes - Sulma Bartholomew [...] GCT Sulma Bartholomew APRN.CNM documented in this encounterUc Health01-18-2023 Instructions* Patient Instructions* Radha Javier MA - 08/09/2022 2:55 PM EST SEQUENTIAL SCREENINGS The [facility] offers sequential screenings for women who are [...] testing. It will require an appointment withour geotechnicial properties technician. This is not an ultrasound performed [...] the above symptoms, contact our office at [phone] and ask to speak with anurse. After hours, you can call doctors registry at [phone] OR call [facility] at [phone] ask to have the doctor compensation manager paged. If you consider this an emergency, dial [phone]--9 or go to your nearest emergency department. NEED HELP? Are you dealing with a violent or abusive relationship? Are you a victim of rape or sexual assult? Call [facility] ([place]) 24 hour Crisis Hotline: 605.922.4769 or 389-264-5620. MANUAL Your Guide to a Healthy manual is now on-line. Visit [email or web address] to download your free copy documented in this encounterUc Health01-14-2023 Miscellaneous Notes* Telephone Encounter - Radha Morales RN - 08/05/2022 7:03 PM EST Reason for call: Severe sore throat and ear pain. Patient wondering if antibiotics would help. 23 weeks . Patient with severe throat and ear pain. Offered to page doctor compensation manager but patient unable to locate any open pharmacies in her area for any possible prescriptions tonight. Patient states that she prefers to go to ED tonight. Patient will go to [facility]. Reason for Disposition SEVERE (e.g., excruciating) [...] Currently 23 weeks . Protocols used: Sore Lhkxdn-DBZOF-ZP documented in this encounterUc Health01-12-2023 History of Present illness Narrative* Wendy Rivera APRN.EDUCATION ADMINISTRATOR - 08/03/2022 3:00 PM EST Chief Complaint Patient presents with: lost voice: Started getting raspy Sunday night lost it yesterday, sore is [...] SURGICAL HISTORY OF 01/01/2010 Removal of 4 [place] Teeth PAST SURGICAL HISTORY OF basal cell [...] Yes Types: Heroin, Marijuana Comment: Patient states "I have used multiple drugs in the past" REVIEW OF SYSTEMS: as above Reviewed relevant [...] ICD9: 465.9, ICD10: J06.9 No concerns for SENIOR JAVA ARCHITECT or strep from PE presentation. Strep was [...] Patient agreeable to treatment plan. Wendy Tomas APRN.JAMES [address] [place] [address] documented in this encounterUc Health01-05-2023 History of Present illness Narrative* Chey Ladd APRN.JAMES - 07/27/2022 3:13 PM EST This note was created using InDemand Interpretingriter. Subjective Fadumo Hensley is a 26 year [...] ulcerations. Denies using homeopathic or OTC medications SENIOR JAVA ARCHITECT. The history is provided by the patient. No hourly sign language interpreter was used. Mouth/Lip Problem [...] SURGICAL HISTORY OF 01/01/2010 Removal of 4 [place] Teeth PAST SURGICAL HISTORY OF basal cell [...] Yes Types: Heroin, Marijuana Comment: Patient states "I have used multiple drugs in the past" Review of Systems Constitutional: Negative for chills, [...] pending Chey Ladd APRN.CNP documented in this encounterUc Health01-05-2023 Miscellaneous Notes* Telephone Encounter - Sulma Bartholomew APRN.CNM - 07/27/2022 9:32 AM EST Thank you for the update. Agree with plan of care. Sulma Bartholomew APRN.CNM * Telephone Encounter - Aliyah Khoury RN - 07/27/2022 9:21 AM EST Patient called back. Spoke with Ana [place] [facility]. She is ok with scanning patient today. Patient notified. She plans to go to PCP or Urgent Care after. Aliyah Khoury RN * Telephone Encounter - Aliyah Khoury RN - 07/27/2022 8:52 AM EST 22w1d Patient has her anatomy US scheduled today at 10 AM. States she was exposed to her friend's daughter who has either pfzf-tdum-lvfpe disease or chicken pox. Patient now has bumps in her mouth and her throat is sore. She assumes it was xyiq-zxdf-ocfwp. Asking if she can keep her US appointment today if she wears a mask. Aliyah Khoury RN documented in this encounterUc Health12-15-2022 Miscellaneous Notes* Quick Notes - Sulma Bartholomew [...] JAY. Sulma Bartholomew APRN.CNM documented in this encounterUc Health12-15-2022 Instructions* Patient Instructions* Malik Kee Computer Systems Support Specialist - 07/06/2022 4:21 PM EST SEQUENTIAL SCREENINGS The [facility] offers sequential screenings for women who are [...] testing. It will require an appointment withour geotechnicial properties technician. This is not an ultrasound performed [...] the above symptoms, contact our office at [phone] and ask to speak with anurse. After hours, you can call doctors registry at [phone] OR call [facility] at [phone] ask to have the doctor compensation manager paged. If you consider this an emergency, dial -[phone] or go to your nearest emergency department. NEED HELP? Are you dealing with a violent or abusive relationship? Are you a victim of rape or sexual assult? Call [facility] ([place]) 24 hour Crisis Hotline: 103.585.5226 or 451-078-7997. MANUAL Your Guide to a Healthy manual is now on-line. Visit [email or web address] to download your free copy documented in this encounterUc Health12-14-2022 Miscellaneous Notes* Telephone Encounter - Debby Reeves MD - 07/05/2022 3:44 PM EST Reviewed. Let us know if she needs this sent somewhere else. * Telephone Encounter - Sienna Hidalgo LPN - 07/05/2022 3:34 PM EST Patient telephoned and states she found the verapamil and took it about two hours ago. States she should have enough now until [facility] gets it in. Says it has helped [...] calling to say Verapamil is unavailable at [facility]. She has missed several doses due to [...] availability. Yvette Cunningham RN documented in this encounterUc Health12-14-2022 Miscellaneous Notes* Telephone Encounter - Judith Carlos Ma - 07/05/2022 11:19 AM EST Pt notified via [employer] Dandelion[employer] that Verapamil was refilled to [facility] on 05/31/22 with refills. Judith Carlos Ma documented in this encounterUc Health12-02-2022 Instructions* Patient Instructions* Wai Magallon APRN.JAMES - 06/23/2022 5:49 PM EST How to [...] or concerning to you. documented in this encounterUc Health12-02-2022 History of Present illness Narrative* Wai Magallon [...] started abruptly. Patient states they have used gycr-xjq-dpumyhx medication with some success. Patient states they [...] SURGICAL HISTORY OF 01/01/2010 Removal of 4 [place] Teeth PAST SURGICAL HISTORY OF basal cell [...] Yes Types: Heroin, Marijuana Comment: Patient states "I have used multiple drugs in the past" BP 106/78 Pulse 112 Temp 37.5 C [...] influenza test is negative. We will contact SENIOR ACCOUNT CLERK if positive for influenza A. Follow-up with [...] of care. This note was generated using Explorys software. It may contain errors in wording, punctuation, or spelling. Wai Magallon APRN.JAMES documented in this encounterUc Health11-27-2022 Miscellaneous Notes* Telephone Encounter - Susana Hill RN - 06/18/2022 1:28 AM EST Reason for Call: Patient calling stating that she has cold symptoms and a sore throat . Patient is 16 weeks and would like to know if she can take a cold medication that she has at home. Outcome: Patient conference to Provider answering Service to page Provider compensation manager documented in this encounterUc Health11-23-2022 Miscellaneous Notes* Telephone Encounter - Bibi Saxena [...] today. Agnieszka Taylor LPN documented in this encounterUc Health11-09-2022 History of Present illness Narrative* Debby Reeves [...] visit in the office setting and agrees. Fadmuo Hensley is a 26 year old female [...] SURGICAL HISTORY OF 01/01/2010 Removal of 4 [place]eth PAST SURGICAL HISTORY OF basal cell [...] Yes Types: Heroin, Marijuana Comment: Patient states "I have used multiple drugs in the past" Review of Symptoms REVIEW OF SYSTEMS See [...] which included preparing to see the patient, hdni-qf-bjto patient care, completing clinical documentation, obtaining and/or reviewing separately obtained history, performing a medically appropriate examination, counseling and educating the pat ient/family/caregiver, and ordering medications, tests, or procedures. Debby Reeves MD documented in this encounterUc Health11-07-2022 Miscellaneous Notes* Telephone Encounter - Bettie Shea [...] reported as: female. Reviewed with patient Fadumo L Ayden that NIPT is considered screening and not [...] Provider. Bettie Shea MA documented in this encounterUc Health11-01-2022 History of Present illness Narrative* Debby Reeves [...] radiation into her neck. Associated with feeling "cloudy" and occasionally has flashes of light or afterimages which occur every few days. Triggered by bright lights. Is able to sleep with her Unisom and melatonin. Has tried 3 regular strength tylenol 2-3 times per day without improvement. Warm wash cloths on her head/face do not help either. Denies slurred speech, facial droop, unilateral weakness. Notes that she was in the [facility] ER about a month ago when this [...] SURGICAL HISTORY OF 01/01/2010 Removal of 4 [place] Teeth PAST SURGICAL HISTORY OF basal cell [...] Yes Types: Heroin, Marijuana Comment: Patient states "I have used multiple drugs in the past" Review of Symptoms REVIEW OF SYSTEMS See [...] TABLET Debby Reeves MD documented in this encounterUc Health11-01-2022 History of Present illness Narrative* Sienna Hidalgo LPN - 05/23/2022 3:56 PM EDT Patient scheduled for this evening at 640pm. documented in this encounterUc Health11-01-2022 Miscellaneous Notes* Quick Notes - Vale Briones [...] NT Vale Briones MD documented in this encounterUc Health11-01-2022 Instructions* Patient Instructions* Roxanne Roque Ma - 05/23/2022 3:09 PM EDT SEQUENTIAL SCREENINGS The [facility] offers sequential screenings for women who are [...] testing. It will require an appointment withour geotechnicial properties technician. This is not an ultrasound performed [...] the above symptoms, contact our office at [phone] and ask to speak with anurse. After hours, you can call doctors registry at [phone] OR call [facility] at [phone] ask to have the doctor compensation manager paged. If you consider this an emergency, dial 9 or go to your nearest emergency department. NEED HELP? Are you dealing with a violent or abusive relationship? Are you a victim of rape or sexual assult? Call [facility] ([place]) 24 hour Crisis Hotline: 315.585.6138 or 920-267-1065. MANUAL Your Guide to a Healthy manual is now on-line. Visit [email or web address]/HealthyPregnancyGuide to download your free copy documented in this encounterUc Health09-22-2022 Miscellaneous Notes* Telephone Encounter - Joshua Delgado [...] with sleeping. Please advise documented in this encounterUc Health09-22-2022 Miscellaneous Notes* Quick Notes - Marlon Cortez RN - 04/13/2022 11:25 AM EDT DISTANCE HEALTH VISIT This Team Access Model visit is a phone encounter. It required patient-provider interaction for themedical decision making as documented below. Father of the baby involved. He is not the father of her other child. Patient was seen in the [facility] for spotting on April 03 saw [...] attempt in 2010 and was admitted to [facility]. She states she last had suicidal [...] patches. I have advised her of the [place] tobacco quit line and [facility] smoking cessation program. I havediscussed the risks of vaping during and advised patient to continue trying to quit. Patient desires aneuploidy screening. I have given her contact information for [employer] to check on insurance coverage. Patient considering horizon screening testing. Contact information for the [employer] rep given to patient to check on insurance coverage.Marlon Cortez RN documented in this encounterUc Health09-22-2022 History and physical note * Marlon Cortez [...] Living: None, Comments: None documented in this encounterUc Health09-15-2022 History of Present illness Narrative* Vale Briones MD - 04/06/2022 9:23 AM EDT Obstetric History T1 L1 SAB0 IAB0 Ectopic0 Multiple0 Live Births1 Name of Baby 1: [place] Date: 10/23/12 GA: 39w0d Delivery: Vaginal, Spontaneous [...] L1 SAB0 IAB0 Ectopic0 Multiple0 Live Births1 Tower Air Traffic Control Specialist History LMP: 02/22/2022 (Approximate), Age at Menarche: Age at First : Age at Menopause: Tower Air Traffic Control Specialist History Comments: Sexual Activity: Yes; Male Contraception: [...] SURGICAL HISTORY OF 01/01/2010 Removal of 4 [place] Teeth PAST SURGICAL HISTORY OF basal cell [...] Moderate Vale Briones MD documented in this encounterUc Health09-13-2022 Miscellaneous Notes* Telephone Encounter - Patricia Lakhani [...] provider to review. HCG Quant on 04/03- 08532.1 Patricia Lakhani RN * Telephone Encounter - [...] back and states she was seen at [facility] yesterday and ultrasound was done. Patient [...] cramping. Went to the bathroom and the "toilet was full of blood". Cramping pain is a 4 out of 10. States she called her mother and her mother told her to go to the ER. Patient is currently at [facility]. Advised patient to contact our office for a follow-up visit. JEAN PIERRE Khoury RN documented in this encounterUc Health09-12-2022 Hospital Discharge instructions Patient Education 04/03/2022 18:40:48 [...] your baby will most likely be fine. [phone] [employer]. [address] [place] [address]. All rights reserved. This information is not intended as a substitute for professional medical care. Always follow yourhealthcare professional's instructions. Follow Up Care 04/03/2022 14:32:57 With:your c wpf developer Address:Unknown When:2-4 days Comments:Schedule appointment as soon as possibleReturn to ED if symptoms worsenPelvic rest. follow up for repeat hcg this week. Increase diet as described With:NONE PHYSICIAN Address:Unknown When:2-4 days [facility] 09-12-2022 Note Discharge Instructions Thank you for allowing [facility] to assist you with your healthcare needs. [...] the Following Appointments Follow Up with your c wpf developer When Within 2-4 days Why: Schedule appointment [...] your baby will most likely be fine. [phone] [employer]. [address] [place], [place] [address]. All rights reserved. This information is not intended as a substitute for professional medical care. Always follow yourhealthcare professional's instructions. Additional Information VACCINATE! IT SAVES LIVES! Members of the community who have not yet received the COVID-19 vaccine and would like to receive it can visit one of [facility] vaccine clinics. There are many vaccine clinic locations within the [facility]. For locations and available times, please visit [email or web address]. It is important to note that some COVID mobile vaccine clinics are held outdoors and may be canceled in rainy orstormy conditions. To learn more about pediatric vaccinations (ages 5-11), we invite you to visit the [facility] webpage. https://[email or web address]/pages/8779-Azxhj-Cqdmtbpwrjs-Eldvnsavpg-Cjodj-Wmq stions.htmlTo learn more about the COVID-19 vaccine, we invite you to visit the [facility] website for a list of frequently asked questions. [email or web address]/assets/Lostircy-dmf-Glbtcpjy/tvypb-Oqcadab-Xoaztkjxza _Asked-Questions.pdf [facility] Patient Portal Access Instructions: Stay connected with your healthcare team and access your personal medical information anytime with the [facility] [employer] [facility] [facility] Patient Portal. If you would like a full copy of your medical records please contact the [facility] Medical Records Department Sunday through Sunday between 8a.m. and 4:30p.m. Please follow the directions below to access the portal: 1.Access the email account you provided upon registration to the [facility].2.Look for an invitation email from [facility].3.Open the email and access the invitation link: Accept Invitation to [facility]4.Fill in the required fritz to create your account. Sign into [email or web address] with your username and password that you [...] you will allow to register on the [facility] [employer] [facility] Patient Portal for access to your information. You can also access the [facility] Patient Portal on the Povo. Simply click on "Health Records" under "HealthData" and then click on the [facility] logo. [...] Call your local pharmacy or go to http://bit.ly/[email or web address] to find one close to you.3.Make use of household items: Use cat litter or old coffee grounds to dispose medications if other options arenot available. Mix your drugs with these household products, seal them in an airtight container andthrow it into the garbage. Call [facility]: [phone] to be sure your drugs can be [...] aware that I should contact my doctor. Patient/Plant Controller Signature: Date/Time: Relationship to Patient: Witness Name/Signature: Date/Time: [facility] [id number] Miscellaneous Notes* Telephone Encounter - Sienna Hidalgo [...] up with OB CAMERON. Thanks, Bibi Saxena APRN.JAMES documented in this encounterUc Health09-01-2022 Miscellaneous Notes* Telephone Encounter - Ginny Scott [...] verbalized understanding and agreement. documented in this encounterUc Health08-31-2022 Miscellaneous Notes* Telephone Encounter - FARTUN Pollack - 03/22/2022 9:14 AM EDT Behavioral Health Social Work Progress Note Patient identified for [facility] from: PCP Reason for referral: Resources Behavioral Health Resources: Psychology - talk therapy;Psychiatry med management [facility] encounter type: Telephone Encounter;Qlibrihart Message Attempts to Outreach: 1 attempt Referral made: Psychiatry - External;Psychology - External Psychology-External referral type: Therapy Psychiatry-External referral type: Medication Management Reason for external referral: Patient choice;Wait times at [facility] too long Final Disposition: Resources given Patient [...] virtual visits, and would actually prefer this. SW will provide the following referralswilbur Bryan: [facility] [address] [facility] [id number] Psychiatry and Counseling [facility] [address] [place], [place] [id number] [phone] Counseling [facility]al [facility] [address] [place] [address] Counseling and psychiatry [facility] Inline.me [facility] [address] [address] [address], [address] [place] [address] Psychiatry and Counseling [facility] and [facility] [address] [place] [phone] [place] location also SHARMIN Pollack March 22, 2022 documented in this encounterUc Health08-30-2022 History of Present illness Narrative* Debby Reeves MD - 03/21/2022 5:58 PM EDT Chief Complaint Patient presents with: Establish Care: Transferring care from [facility]- patient reports she just found out she [...] to have a LEEP procedure through [facility]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 Were trying [...] constant intrusive thoughts, crying spells, panic symptoms. 03/21/20221838 Last Filed Value NOAH-7 - over the [...] SURGICAL HISTORY OF 01/01/2010 Removal of 4 [place] Teeth PAST SURGICAL HISTORY OF basal cell [...] (Patient not taking: Reported on 01/26/2022 ) jbzhdhejmz-sdstgy-t-sali-menth (NUDROXIPAK N-500) 500 mg-0.025 %- 25 %-6 [...] 106 Resp 16 Ht 167.2 cm (5' 5.83") Wt 83.5 kg (184 lb) LMP 01/23/2022 [...] smoking cessation with nicoderm patches. Will notify SENIOR ACCOUNT CLERK of since they were wanting her to [...] which included preparing to see the patient, unpf-sg-lbqw patient care, completing clinical documentation, obtaining and/or reviewing separately obtained history, performing a medically appropriate examination, counseling and educating the pat ient/family/caregiver, ordering medications, tests, or procedures, and communicating with other HCPs (not separately reported). Debby Reeves MD documented in this encounterUc Health08-04-2022 Miscellaneous Notes* Telephone Encounter - Chrissy Seay [...] after menses has ended documented in this encounterUc Health08-03-2022 Miscellaneous Notes* Telephone Encounter - Kimberley Agustin Ma - 02/22/2022 7:20 PM EDT Left message for patient on vm Kimberley Agustin Ma * Telephone Encounter - Wai Bailey MD - 02/22/2022 6:59 PM EDT Let patient know script sent. Not sure insurance will cover. If uses Good Rx cost at [facility] is about $90 The following approved medication [...] rx sent or problem. Routing to Doctor returned telephone equipment appraiser. 2. Pt transferred to explosive operator grenade to get a establish care apt with provider taking Amaya Murray pts. Agnieszka Taylor LPN documented in this encounterUc Health08-03-2022 History of Present illness Narrative* Chrissy Seay MD - 02/22/2022 3:30 PM EDT VIRTUAL VISIT PROGRESS NOTE This is a virtual visit using Stazoo.com video visit. It required patient-provider interaction for [...] 08/02/12: zoloft 50mg Daily Hepatitis C 2017 2019 cured after medication course. Juvenile osteochondrosis of [...] SURGICAL HISTORY OF 01/01/2010 Removal of 4 [place] Teeth PAST SURGICAL HISTORY OF basal cell [...] (Patient not taking: Reported on 01/26/2022 ) sjostpnkoy-mtjxft-o-sali-menth (NUDROXIPAK N-500) 500 mg-0.025 %- 25 %-6 [...] which included preparing to see the patient, [id number] patient care, completing clinical documentation, obtaining and/or reviewing separately obtained history and counseling and educating the patient/family/caregiver Chrissy Seay DO documented in this encounterUc Health08-02-2022 Miscellaneous Notes* Addendum Note - Joshua Delgado [...] Patient has a virtual appointment tomorrow with to discuss LEEP procedure. States her scalp and neck have been very itchy. Her skin is warm to the touch all over. Took x2 at [facility] and had faint positive lines. Asking if this could be related to a possible . She had skin cancer removed from her scalp that has since healed. Advised to talk with her necktie maker regarding the pruritis. IUD was removed on 01/19/22. Has been sexually active without another form of contraception. Leaving for vacation on where she will be riding roller [employer]. Willing to go to the lab today for HCG quant. Patient is feeling anxious. Aliyah Khoury RN documented in this encounterUc Health07-14-2022 Miscellaneous Notes* Telephone Encounter - Joshua Delgado [...] absence. Earle Munoz LPN documented in this encounterUc Health07-01-2022 Miscellaneous Notes* Addendum Note - Sulma Bartholomew [...] voiced understanding but wants medication sent to [facility] of [facility]. Please see pended order below. Do not [...] dose. Sulma Bartholomew APRN.CNM documented in this encounterUc Health07-01-2022 Miscellaneous Notes* Telephone Encounter - Carmelina Gonzalez LPN - 01/20/2022 9:40 AM EDT ----- Message from Sulma Bartholomew APRN.CNM sent at 01/20/2022 8:07 AM EDT ----- Results reviewed. See phone note. Sulma Bartholomew APRN.CNM documented in this encounterUc Health06-30-2022 History of Present illness Narrative* Sulma Bartholomew [...] months. Sulma Bartholomew APRN.CNM documented in this encounterUc Health06-21-2022 Miscellaneous Notes* Telephone Encounter - Patricia Lakhani [...] placed. Sulma Bartholomew APRN.CNM documented in this encounterUc Health06-08-2022 Instructions* Patient Instructions* Sulma Bartholomew APRN.CNM - 12/28/2021 4:27 PM EDT [facility] Pre[facility]ing Caring for your [...] visit, your health care provider will discuss: SENIOR ACCOUNT CLERK history: previous pregnancies, menstrual history, contraceptive use, sexually transmitted diseases, Pap smears, vaginal infections as well as previous Pap test results. Medical/surgical history: surgeries, transfusions, hospitalizations, pre- existing medical conditions, allergies, current medications (including prescribed and dbmu-wbq-oxjtcmn medications) Family health history: hypertension, diabetes, twins, [...] your community to help you quit smoking. [facility] provider for more information about [...] and in early . Many pharmacies sell aivv-ojo-euwejlu vitamins that do not require a prescription. [...] genetic problems, defects or mental retardation. 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 GENERAL: pleasant, female in no apparent distress HEENT: Normocephalic, atraumatic, mucus membranes moist and no lesions NECK: Supple and full range of motion DERMATOLOGY: Normal and without lesions BREAST: soft and non-tender CHEST: Normal inspiratory effort ABDOMEN: soft, non-tender and no masses PELVIC: external genitalia normal, normal Bartholin's glands, urethra, Rocky's glands, no vulvar lesions, no cervical lesions, [...] removal Sulma Bartholomew APRN.CNM documented in this encounterUc Health06-03-2022 History of Present illness Narrative* Wai Magallon APRN.EDUCATION ADMINISTRATOR - 12/23/2021 1:24 PM EDT Images from [...] SURGICAL HISTORY OF 01/01/2010 Removal of 4 [place] Teeth PAST SURGICAL HISTORY OF basal cell [...] Use over 6-12 weeks, then taper use. svobtfnkjr-sqchnx-l-sali-menth (NUDROXIPAK N-500) 500 mg-0.025 %- 25 %-6 [...] plan of care. This note was generated usingExplorys software. It may contain errors in wording, punctuation, or spelling. Wai Magallon APRN.JAMES documented in this encounterUc Health05-06-2022 History of Present illness Narrative* Amaya Rasmussen APRN.DEO RAMIREZ - 11/25/2021 2:49 PM EDT Chief Complaint Patient presents with: Follow Up Anxiety This Team Access Model encounter involved medical decision making outside of a scheduled office visit. Patient was offered a virtual/telemedicine appointment in lieu of an office visit due to recommendations to reduce patient exposure to COVID-19. Patient agrees to the visit: Yes Patient Location: [facility] Fadumo Hensley is a 26 year old female who is contacted today for a virtual visit This is an established patient of Dr. Amaya Rasmussen APRN.JAMES, DEO ADD, Anxiety and depression: Contacted this [...] had an argument with the pharmacist at [facility]. [facility] pharmacist then contacted this clinician's office. [facility] refused[facility] refill her current Adderall prescriptions and any future medication prescriptions and refills. Jonh the [facility] pharmacist stated "she will never fill another prescription here at this pharmacy". Ireviewed the performed a medication review and medical record review. Meds refilled. Please inform the patient that they may pickling tank operator the prescription at the [facility] pharmacy. Notes with the patient and [...] SURGICAL HISTORY OF 01/01/2010 Removal of 4 [place] Teeth PAST SURGICAL HISTORY OF basal cell [...] fatigue. No fevers. Neuro/Psyc: Anxisouness, tearful EXAM: [facility] 04/27/2020 Virtual visit completed using video, limited [...] ICD9: 314.00, ICD10: F90.0 (primary diagnosis) MDM: [facility] pharmacy contacted this provider and stated they would no longer fill her Adderall prescription. [facility] pharmacy felt she was abusing her Adderall prescriptions. Stated they had dispensed 120 days worth of prescription but only 112 days had passed. Therefore they were not going to dispense any more. [place] she was abusing. She was trying to refill her prescriptions early. Jonh the pharmacist at [facility] had a very heated argument with the patient. Patient states she called back and apologized. Her Adderall prescriptions were then resubmitted to [facility] with a start date on November 28. I extensively reviewed with the patient that she can only pickling tank operator her Adderall prescriptions on the day that [...] goals ?Use charts and checklists to stay "on task" ?Suggest physical activity breaks during tasks that [...] includes ER, 911 and Crisis hotline # [phone] If symptoms worsen return to clinic or initiate safety plan Amaya Rasmussen APRN.DEO RAMIREZ This note was completed with MyGoGames dictation software. Note was reviewed for accuracy. There may be minor misspellings or grammar miscues with MyGoGames Dictation. [place] [phone] Total appointment time on virtual with patient = 17 minutes This note was copied from previous note and exam dated 11/23/21 . Author is Amaya Rasmussen APRN.EDO RAMIREZ note reviewed and changes have been made or updates noted in the copy & paste portion of an encounter. documented in this encounterUc Health05-06-2022 Miscellaneous Notes* Telephone Encounter - Amaya Rasmussen APRN.DEO RAMIREZ - 11/25/2021 12:45 PM EDT Fadumo, I talked with the [facility] - [facility]. They will no longer fill your Adderall Rx becauseof your improper behavior and the way you talked to the staff there at [facility]. I reviewed with the Pharmacists your past [...] requests have been transmitted electronically - To [facility]. Signed Prescriptions Disp Refills amphetamine-dextroamphetamine XR (ADDERALL [...] STACY Class: C-II Authorizing Provider: AMAYA RASMUSSEN APRN.CNP, DNP * Telephone Encounter - Louann Toussaint LPN - 11/25/2021 11:39 AM EDT Patient calling, states that pharmacist from called and told her that he would not fill the prescription. Patient is asking if prescription can be sent to [facility]. States that she will fill it for whenever it is due. States that she still has a couple of tablets left but was trying to get whileshe was out so she does not need to go out more since she has Covid. Please advise. * Telephone Encounter - Amaya Rasmussen APRN.CNP, DNP - 11/25/2021 11:04 AM EDT Inform patient [...] asking if the provider will put the pickling tank operator date astoday, but the start date will still be tomorrow. * Telephone Encounter - Amaya Rasmussen APRN.CNP, DNP - 11/25/2021 9:36 AM EDT I would have the patient call the pharmacy and ask. Amaya Rasmussen APRN.DEO RAMIREZ * Telephone Encounter - Louann Toussaint LPN - 11/25/2021 9:11 AM EDT Patient calling, states that she was just diagnosed with Covid. She is not sure if she will be out tomorrow in order to pickling tank operator her prescription. States that she is out and about now and asking if she would be able to pick it up today. Please advise. documented in this encounterUc Health05-04-2022 History of Present illness Narrative* Amaya Rasmussen [...] agrees to the visit: Yes Patient Location: [facility] Fadumo Hensley is a 26 year old female who is contacted today for a virtual visit This is an established patient of Dr. Amaya Rasmussen APRN.DEO RAMIREZ Anxiety and depression: Previously diagnosed by [facility] [...] SURGICAL HISTORY OF 01/01/2010 Removal of 4 [place] Teeth PAST SURGICAL HISTORY OF basal cell [...] or fatigue. No fevers. Neuro/Psyc: Anxisouness EXAM: [facility] 04/27/2020 Virtual visit completed using video, limited [...] goals ?Use charts and checklists to stay "on task" ?Suggest physical activity breaks during tasks that [...] includes ER, 911 and Crisis hotline # [phone] If symptoms worsen return to clinic or initiate safety plan Amaya Rasmussen APRN.DEO RAMIREZ This note was completed with MyGoGames dictation software. Note was reviewed for accuracy. There may be minor misspellings or grammar miscues with MyGoGames Dictation. [place] [phone] Total appointment time on virtual with patient = 15 minutes This note was copied from previous note and exam dated 08/22/21 . Author is Amaya Rasmussen APRN.DEO RAMIREZ note reviewed and changes have been made or updates noted in the copy & paste portion of an encounter. documented in this encounterUc Health04-07-2022 Miscellaneous Notes* Telephone Encounter - Ros Garcia Pss - 10/27/2021 4:56 PM EDT Aliyah Costa, pharmacist from [facility] called regarding a recent refill request for this patient. Tiaznadine capsules are not covered but the tablets are. Aliyah is asking for a substition for this placement and can be reached at: [phone] Thank you, Ros Garcia Pss documented in this encounterUc Health04-07-2022 Miscellaneous Notes* Telephone Encounter - Amaya Rasmussen APRN.DEO RAMIREZ - 10/27/2021 4:11 PM EDT Team inform the patient that she will need a virtual or pcfa-sw-bsuw visit with me for her next refill [...] cap. STACY Class: C-II LG: No Amaya Rasmussen APRN.DEO RAMIREZ * Telephone Encounter - Mounika [...] refills Mounika Weston Ma documented in this encounterUc Health04-07-2022 Miscellaneous Notes* Telephone Encounter - Tosha Lira RN - 10/27/2021 2:47 PM EDT Patient has been identified by name and date of : Yes Pharmacy electronically sent a request for the following prescription(s) If there are any questions regarding this prescription request, call at home at: [phone] (home) [phone] (cell) RX INSTRUCTIONS: Patient aware RX will be sent to pharmacy. No need to notify patient. Date of last refill: 08/02/21 Date of last office visit: 08/02/21 Date of last [facility] visit: 08/02/2021 Date of future office visit: Not Scheduled Pending Prescriptions Disp Refills TIZANIDINE 2 MG CAPSULE 30 capsule 2 Sig: Take 1 capsule by mouth daily at bedtime. LG: No Prescriptions are usually addressed within 24-48 business hours. If patient states they cannot [id number] business hours, please document details. Last 2 [...] Function tests in . Thyroid, 2019:29:3:412-420. Annamarie Trimble, et al. 2017 Guidelines of the [place] [employer] Association for the Diagnosis and Management of Thyroid Disease during and the . Thyroid, 2017:27:3:315-389. No results found for: HBA1C Hemoglobin (g/dL) Date Value 04/27/2020 12.4 Hematocrit (%) Date Value 04/27/2020 36.6 WBC (k/uL) Date Value 04/27/2020 6.21 Platelet Count (k/uL) Date Value 04/27/2020 172 Tosha Lira RN documented in this encounterUc Health10-06-2020 History of Past illness Narrative* Problem Noted Date Resolved Date Urinary incontinence 04/27/2020 04/28/2020 Uncomplicated asthma 09/07/2015 09/18/2019 Overview: 04/18/2012Patient has a history of asthma. She uses an albuterol inhaler when necessary. Routine gynecological examination 12/09/2014 09/18/2019 Overview: [facility]. Chlamydia infection 09/23/2013 09/18/2019 with adoption [...] of this encounter (statuses as of 10/27/2021) [facility] History of Past illness Narrative* Problem Noted Date Resolved Date Urinary incontinence 04/27/2020 04/28/2020 Uncomplicated asthma 09/07/2015 09/18/2019 Overview: 04/18/2012Patient has a history of asthma. She uses an albuterol inhaler when necessary. Routine gynecological examination 12/09/2014 09/18/2019 Overview: [facility]. Chlamydia infection 09/23/2013 09/18/2019 with adoption [...] of this encounter (statuses as of 10/27/2021) [facility] of Past illness Narrative* Problem Noted Date Resolved Date Urinary incontinence 04/27/2020 04/28/2020 Uncomplicated asthma 09/07/2015 09/18/2019 Overview: 04/18/2012Patient has a history of asthma. She uses an albuterol inhaler when necessary. Routine gynecological examination 12/09/2014 09/18/2019 Overview: [facility]. Chlamydia infection 09/23/2013 09/18/2019 with adoption [...] of this encounter (statuses as of 10/28/2021) [facility] of Past illness Narrative* Problem Noted Date Resolved Date Urinary incontinence 04/27/2020 04/28/2020 Uncomplicated asthma 09/07/2015 09/18/2019 Overview: 04/18/2012Patient has a history of asthma. She uses an albuterol inhaler when necessary. Routine gynecological examination 12/09/2014 09/18/2019 Overview: [facility]. Chlamydia infection 09/23/2013 09/18/2019 with adoption [...] of this encounter (statuses as of 11/23/2021) [facility] of Past illness Narrative* Problem Noted Date Resolved Date Urinary incontinence 04/27/2020 04/28/2020 Uncomplicated asthma 09/07/2015 09/18/2019 Overview: 04/18/2012Patient has a history of asthma. She uses an albuterol inhaler when necessary. Routine gynecological examination 12/09/2014 09/18/2019 Overview: [facility]. Chlamydia infection 09/23/2013 09/18/2019 with adoption [...] of this encounter (statuses as of 11/25/2021) [facility] of Past illness Narrative* Problem Noted Date Resolved Date Urinary incontinence 04/27/2020 04/28/2020 Uncomplicated asthma 09/07/2015 09/18/2019 Overview: 04/18/2012Patient has a history of asthma. She uses an albuterol inhaler when necessary. Routine gynecological examination 12/09/2014 09/18/2019 Overview: [facility]. Chlamydia infection 09/23/2013 09/18/2019 with adoption [...] of this encounter (statuses as of 11/25/2021) [facility] of Past illness Narrative* Problem Noted Date Resolved Date Urinary incontinence 04/27/2020 04/28/2020 Uncomplicated asthma 09/07/2015 09/18/2019 Overview: 04/18/2012Patient has a history of asthma. She uses an albuterol inhaler when necessary. Routine gynecological examination 12/09/2014 09/18/2019 Overview: [facility]. Chlamydia infection 09/23/2013 09/18/2019 with adoption planned 04/22/2012 10/08/2012 Tobacco use in 04/18/2012 013 Overview: 04/18/2012Pt smokes one to 2 cigarettes a day, down from one half pack per day. Discussed risks of smoking during . Advised pt to quit. Last Assessment & Plan: 07/18/12: Pt is no longer smoking; states she quit about 2weeks ago. Rosraio Lam NP Depression 05/26/2011 09/18/2019 Telangiectasia 01/27/2010 09/18/2019 Rosacea 01/27/2010 09/18/2019 Other acne 01/27/2010 09/18/2019 documented as of this encounter (statuses as of 12/23/2021) [facility] History of Past illness Narrative* Problem Noted Date Resolved Date Urinary incontinence 04/27/2020 04/28/2020 Uncomplicated asthma 09/07/2015 09/18/2019 Overview: 04/18/2012Patient has a history of asthma. She uses an albuterol inhaler when necessary. Routine gynecological examination 12/09/2014 09/18/2019 Overview: [facility]. Chlamydia infection 09/23/2013 09/18/2019 with adoption [...] of this encounter (statuses as of 12/28/2021) [facility] of Past illness Narrative* Problem Noted Date Resolved Date Urinary incontinence 04/27/2020 04/28/2020 Uncomplicated asthma 09/07/2015 09/18/2019 Overview: 04/18/2012Patient has a history of asthma. She uses an albuterol inhaler when necessary. Routine gynecological examination 12/09/2014 09/18/2019 Overview: [facility]. Chlamydia infection 09/23/2013 09/18/2019 with adoption [...] of this encounter (statuses as of 01/10/2022) [facility] of Past illness Narrative* Problem Noted Date Resolved Date Urinary incontinence 04/27/2020 04/28/2020 Uncomplicated asthma 09/07/2015 09/18/2019 Overview: 04/18/2012Patient has a history of asthma. She uses an albuterol inhaler when necessary. Routine gynecological examination 12/09/2014 09/18/2019 Overview: [facility]. Chlamydia infection 09/23/2013 09/18/2019 with adoption [...] of this encounter (statuses as of 01/19/2022) [facility] of Past illness Narrative* Problem Noted Date Resolved Date Urinary incontinence 04/27/2020 04/28/2020 Uncomplicated asthma 09/07/2015 09/18/2019 Overview: 04/18/2012Patient has a history of asthma. She uses an albuterol inhaler when necessary. Routine gynecological examination 12/09/2014 09/18/2019 Overview: [facility]. Chlamydia infection 09/23/2013 09/18/2019 with adoption [...] of this encounter (statuses as of 01/20/2022) [facility] illness Narrative* Problem Noted Date Resolved Date Urinary incontinence 04/27/2020 04/28/2020 Uncomplicated asthma 09/07/2015 09/18/2019 Overview: 04/18/2012Patient has a history of asthma. She uses an albuterol inhaler when necessary. Routine gynecological examination 12/09/2014 09/18/2019 Overview: [facility]. Chlamydia infection 09/23/2013 09/18/2019 with adoption [...] of this encounter (statuses as of 01/20/2022) [facility] of Past illness Narrative* Problem Noted Date Resolved Date Urinary incontinence 04/27/2020 04/28/2020 Uncomplicated asthma 09/07/2015 09/18/2019 Overview: 04/18/2012Patient has a history of asthma. She uses an albuterol inhaler when necessary. Routine gynecological examination 12/09/2014 09/18/2019 Overview: [facility]. Chlamydia infection 09/23/2013 09/18/2019 with adoption [...] of this encounter (statuses as of 02/02/2022) [facility] of Past illness Narrative* Problem Noted Date Resolved Date Urinary incontinence 04/27/2020 04/28/2020 Uncomplicated asthma 09/07/2015 09/18/2019 Overview: 04/18/2012Patient has a history of asthma. She uses an albuterol inhaler when necessary. Routine gynecological examination 12/09/2014 09/18/2019 Overview: [facility]. Chlamydia infection 09/23/2013 09/18/2019 with adoption [...] of this encounter (statuses as of 02/21/2022) [facility] of Past illness Narrative* Problem Noted Date Resolved Date Urinary incontinence 04/27/2020 04/28/2020 Uncomplicated asthma 09/07/2015 09/18/2019 Overview: 04/18/2012Patient has a history of asthma. She uses an albuterol inhaler when necessary. Routine gynecological examination 12/09/2014 09/18/2019 Overview: [facility]. Chlamydia infection 09/23/2013 09/18/2019 with adoption [...] of this encounter (statuses as of 02/22/2022) [facility] of Past illness Narrative* Problem Noted Date Resolved Date Urinary incontinence 04/27/2020 04/28/2020 Uncomplicated asthma 09/07/2015 09/18/2019 Overview: 04/18/2012Patient has a history of asthma. She uses an albuterol inhaler when necessary. Routine gynecological examination 12/09/2014 09/18/2019 Overview: [facility]. Chlamydia infection 09/23/2013 09/18/2019 with adoption [...] of this encounter (statuses as of 02/23/2022) [facility] of Past illness Narrative* Problem Noted Date Resolved Date Urinary incontinence 04/27/2020 04/28/2020 Uncomplicated asthma 09/07/2015 09/18/2019 Overview: 04/18/2012Patient has a history of asthma. She uses an albuterol inhaler when necessary. Routine gynecological examination 12/09/2014 09/18/2019 Overview: [facility]. Chlamydia infection 09/23/2013 09/18/2019 with adoption [...] of this encounter (statuses as of 02/23/2022) [facility] of [facility] Narrative* Problem Noted Date Resolved Date Urinary incontinence 04/27/2020 04/28/2020 Uncomplicated asthma 09/07/2015 09/18/2019 Overview: 04/18/2012Patient has a history of asthma. She uses an albuterol inhaler when necessary. Routine gynecological examination 12/09/2014 09/18/2019 Overview: [facility]. Chlamydia infection 09/23/2013 09/18/2019 with adoption [...] of this encounter (statuses as of 03/22/2022) [facility] Narrative* Problem Noted Date Resolved Date Urinary incontinence 04/27/2020 04/28/2020 Uncomplicated asthma 09/07/2015 09/18/2019 Overview: 04/18/2012Patient has a history of asthma. She uses an albuterol inhaler when necessary. Routine gynecological examination 12/09/2014 09/18/2019 Overview: [facility]. Chlamydia infection 09/23/2013 09/18/2019 with adoption [...] of this encounter (statuses as of 03/22/2022) [facility] Narrative* Problem Noted Date Resolved Date Urinary incontinence 04/27/2020 04/28/2020 Uncomplicated asthma 09/07/2015 09/18/2019 Overview: 04/18/2012Patient has a history of asthma. She uses an albuterol inhaler when necessary. Routine gynecological examination 12/09/2014 09/18/2019 Overview: [facility]. Chlamydia infection 09/23/2013 09/18/2019 with adoption [...] of this encounter (statuses as of 03/23/2022) [facility] Narrative* Problem Noted Date Resolved Date Urinary incontinence 04/27/2020 04/28/2020 Uncomplicated asthma 09/07/2015 09/18/2019 Overview: 04/18/2012Patient has a history of asthma. She uses an albuterol inhaler when necessary. Routine gynecological examination 12/09/2014 09/18/2019 Overview: [facility]. Chlamydia infection 09/23/2013 09/18/2019 with adoption [...] of this encounter (statuses as of 03/24/2022) [facility] Narrative* Problem Noted Date Resolved Date Urinary incontinence 04/27/2020 04/28/2020 Uncomplicated asthma 09/07/2015 09/18/2019 Overview: 04/18/2012Patient has a history of asthma. She uses an albuterol inhaler when necessary. Routine gynecological examination 12/09/2014 09/18/2019 Overview: [facility]. Chlamydia infection 09/23/2013 09/18/2019 with adoption [...] of this encounter (statuses as of 04/04/2022) [facility] History of Past illness Narrative* Problem Noted Date Resolved Date Urinary incontinence 04/27/2020 04/28/2020 Uncomplicated asthma 09/07/2015 09/18/2019 Overview: 04/18/2012Patient has a history of asthma. She uses an albuterol inhaler when necessary. Routine gynecological examination 12/09/2014 09/18/2019 Overview: [facility]. Chlamydia infection 09/23/2013 09/18/2019 with adoption [...] of this encounter (statuses as of 04/06/2022) [facility] History of Past illness Narrative* Problem Noted Date Resolved Date Urinary incontinence 04/27/2020 04/28/2020 Uncomplicated asthma 09/07/2015 09/18/2019 Overview: 04/18/2012Patient has a history of asthma. She uses an albuterol inhaler when necessary. Routine gynecological examination 12/09/2014 09/18/2019 Overview: [facility]. Chlamydia infection 09/23/2013 09/18/2019 with adoption [...] of this encounter (statuses as of 04/13/2022) [facility] History of Past illness Narrative* Problem Noted Date Resolved Date Urinary incontinence 04/27/2020 04/28/2020 Uncomplicated asthma 09/07/2015 09/18/2019 Overview: 04/18/2012Patient has a history of asthma. She uses an albuterol inhaler when necessary. Routine gynecological examination 12/09/2014 09/18/2019 Overview: [facility]. Chlamydia infection 09/23/2013 09/18/2019 with adoption [...] of this encounter (statuses as of 04/13/2022) [facility] History of Past illness Narrative* Problem Noted Date Resolved Date Urinary incontinence 04/27/2020 04/28/2020 Uncomplicated asthma 09/07/2015 09/18/2019 Overview: 04/18/2012Patient has a history of asthma. She uses an albuterol inhaler when necessary. Routine gynecological examination 12/09/2014 09/18/2019 Overview: [facility]. Chlamydia infection 09/23/2013 09/18/2019 with adoption [...] of this encounter (statuses as of 04/26/2022) [facility] History of Past illness Narrative* Problem Noted Date Resolved Date Urinary incontinence 04/27/2020 04/28/2020 Uncomplicated asthma 09/07/2015 09/18/2019 Overview: 04/18/2012Patient has a history of asthma. She uses an albuterol inhaler when necessary. Routine gynecological examination 12/09/2014 09/18/2019 Overview: [facility]. Chlamydia infection 09/23/2013 09/18/2019 with adoption [...] of this encounter (statuses as of 05/23/2022) [facility] History of Past illness Narrative* Problem Noted Date Resolved Date Urinary incontinence 04/27/2020 04/28/2020 Uncomplicated asthma 09/07/2015 09/18/2019 Overview: 04/18/2012Patient has a history of asthma. She uses an albuterol inhaler when necessary. Routine gynecological examination 12/09/2014 09/18/2019 Overview: [facility]. Chlamydia infection 09/23/2013 09/18/2019 with adoption [...] of this encounter (statuses as of 05/23/2022) [facility] History of Past illness Narrative* Problem Noted Date Resolved Date Urinary incontinence 04/27/2020 04/28/2020 Uncomplicated asthma 09/07/2015 09/18/2019 Overview: 04/18/2012Patient has a history of asthma. She uses an albuterol inhaler when necessary. Routine gynecological examination 12/09/2014 09/18/2019 Overview: [facility]. Chlamydia infection 09/23/2013 09/18/2019 with adoption [...] of this encounter (statuses as of 05/24/2022) [facility] History of Past illness Narrative* Problem Noted Date Resolved Date Urinary incontinence 04/27/2020 04/28/2020 Uncomplicated asthma 09/07/2015 09/18/2019 Overview: 04/18/2012Patient has a history of asthma. She uses an albuterol inhaler when necessary. Routine gynecological examination 12/09/2014 09/18/2019 Overview: [facility]. Chlamydia infection 09/23/2013 09/18/2019 with adoption [...] of this encounter (statuses as of 05/29/2022) [facility] History of Past illness Narrative* Problem Noted Date Resolved Date Urinary incontinence 04/27/2020 04/28/2020 Uncomplicated asthma 09/07/2015 09/18/2019 Overview: 04/18/2012Patient has a history of asthma. She uses an albuterol inhaler when necessary. Routine gynecological examination 12/09/2014 09/18/2019 Overview: [facility]. Chlamydia infection 09/23/2013 09/18/2019 with adoption [...] of this encounter (statuses as of 05/31/2022) [facility] History of Past illness Narrative* Problem Noted Date Resolved Date Urinary incontinence 04/27/2020 04/28/2020 Uncomplicated asthma 09/07/2015 09/18/2019 Overview: 04/18/2012Patient has a history of asthma. She uses an albuterol inhaler when necessary. Routine gynecological examination 12/09/2014 09/18/2019 Overview: [facility]. Chlamydia infection 09/23/2013 09/18/2019 with adoption [...] of this encounter (statuses as of 06/14/2022) [facility] History of Past illness Narrative* Problem Noted Date Resolved Date Urinary incontinence 04/27/2020 04/28/2020 Uncomplicated asthma 09/07/2015 09/18/2019 Overview: 04/18/2012Patient has a history of asthma. She uses an albuterol inhaler when necessary. Routine gynecological examination 12/09/2014 09/18/2019 Overview: [facility]. Chlamydia infection 09/23/2013 09/18/2019 with adoption [...] of this encounter (statuses as of 06/18/2022) [facility] History of Past illness Narrative* Problem Noted Date Resolved Date Urinary incontinence 04/27/2020 04/28/2020 Uncomplicated asthma 09/07/2015 09/18/2019 Overview: 04/18/2012Patient has a history of asthma. She uses an albuterol inhaler when necessary. Routine gynecological examination 12/09/2014 09/18/2019 Overview: [facility]. Chlamydia infection 09/23/2013 09/18/2019 with adoption [...] of this encounter (statuses as of 06/23/2022) [facility] History of Past illness Narrative* Problem Noted Date Resolved Date Urinary incontinence 04/27/2020 04/28/2020 Uncomplicated asthma 09/07/2015 09/18/2019 Overview: 04/18/2012Patient has a history of asthma. She uses an albuterol inhaler when necessary. Routine gynecological examination 12/09/2014 09/18/2019 Overview: [facility]. Chlamydia infection 09/23/2013 09/18/2019 with adoption [...] of this encounter (statuses as of 07/05/2022) [facility] History of Past illness Narrative* Problem Noted Date Resolved Date Urinary incontinence 04/27/2020 04/28/2020 Uncomplicated asthma 09/07/2015 09/18/2019 Overview: 04/18/2012Patient has a history of asthma. She uses an albuterol inhaler when necessary. Routine gynecological examination 12/09/2014 09/18/2019 Overview: [facility]. Chlamydia infection 09/23/2013 09/18/2019 with adoption [...] of this encounter (statuses as of 07/06/2022) [facility] History of Past illness Narrative* Problem Noted Date Resolved Date Urinary incontinence 04/27/2020 04/28/2020 Uncomplicated asthma 09/07/2015 09/18/2019 Overview: 04/18/2012Patient has a history of asthma. She uses an albuterol inhaler when necessary. Routine gynecological examination 12/09/2014 09/18/2019 Overview: [facility]. Chlamydia infection 09/23/2013 09/18/2019 with adoption [...] of this encounter (statuses as of 07/06/2022) [facility] History of Past illness Narrative* Problem Noted Date Resolved Date Urinary incontinence 04/27/2020 04/28/2020 Uncomplicated asthma 09/07/2015 09/18/2019 Overview: 04/18/2012Patient has a history of asthma. She uses an albuterol inhaler when necessary. Routine gynecological examination 12/09/2014 09/18/2019 Overview: [facility]. Chlamydia infection 09/23/2013 09/18/2019 with adoption [...] of this encounter (statuses as of 07/28/2022) [facility] History of Past illness Narrative* Problem Noted Date Resolved Date Urinary incontinence 04/27/2020 04/28/2020 Uncomplicated asthma 09/07/2015 09/18/2019 Overview: 04/18/2012Patient has a history of asthma. She uses an albuterol inhaler when necessary. Routine gynecological examination 12/09/2014 09/18/2019 Overview: [facility]. Chlamydia infection 09/23/2013 09/18/2019 with adoption [...] of this encounter (statuses as of 07/28/2022) [facility] History of Past illness Narrative* Problem Noted Date Resolved Date Urinary incontinence 04/27/2020 04/28/2020 Uncomplicated asthma 09/07/2015 09/18/2019 Overview: 04/18/2012Patient has a history of asthma. She uses an albuterol inhaler when necessary. Routine gynecological examination 12/09/2014 09/18/2019 Overview: [facility]. Chlamydia infection 09/23/2013 09/18/2019 with adoption [...] of this encounter (statuses as of 07/28/2022) [facility] History of Past illness Narrative* Problem Noted Date Resolved Date Urinary incontinence 04/27/2020 04/28/2020 Uncomplicated asthma 09/07/2015 09/18/2019 Overview: 04/18/2012Patient has a history of asthma. She uses an albuterol inhaler when necessary. Routine gynecological examination 12/09/2014 09/18/2019 Overview: [facility]. Chlamydia infection 09/23/2013 09/18/2019 with adoption [...] of this encounter (statuses as of 08/03/2022) [facility] History of Past illness Narrative* Problem Noted Date Resolved Date Urinary incontinence 04/27/2020 04/28/2020 Uncomplicated asthma 09/07/2015 09/18/2019 Overview: 04/18/2012Patient has a history of asthma. She uses an albuterol inhaler when necessary. Routine gynecological examination 12/09/2014 09/18/2019 Overview: [facility]. Chlamydia infection 09/23/2013 09/18/2019 with adoption [...] of this encounter (statuses as of 08/05/2022) [facility] History of Past illness Narrative* Problem Noted Date Resolved Date Urinary incontinence 04/27/2020 04/28/2020 Uncomplicated asthma 09/07/2015 09/18/2019 Overview: 04/18/2012Patient has a history of asthma. She uses an albuterol inhaler when necessary. Routine gynecological examination 12/09/2014 09/18/2019 Overview: [facility]. Chlamydia infection 09/23/2013 09/18/2019 with adoption [...] of this encounter (statuses as of 08/09/2022) [facility] History of Past illness Narrative* Problem Noted Date Resolved Date Urinary incontinence 04/27/2020 04/28/2020 Uncomplicated asthma 09/07/2015 09/18/2019 Overview: 04/18/2012Patient has a history of asthma. She uses an albuterol inhaler when necessary. Routine gynecological examination 12/09/2014 09/18/2019 Overview: [facility]. Chlamydia infection 09/23/2013 09/18/2019 with adoption [...] of this encounter (statuses as of 08/10/2022) [facility] History of Past illness Narrative* Problem Noted Date Resolved Date Urinary incontinence 04/27/2020 04/28/2020 Uncomplicated asthma 09/07/2015 09/18/2019 Overview: 04/18/2012Patient has a history of asthma. She uses an albuterol inhaler when necessary. Routine gynecological examination 12/09/2014 09/18/2019 Overview: [facility]. Chlamydia infection 09/23/2013 09/18/2019 with adoption [...] of this encounter (statuses as of 08/12/2022) [facility] History of Past illness Narrative* Problem Noted Date Resolved Date Urinary incontinence 04/27/2020 04/28/2020 Uncomplicated asthma 09/07/2015 09/18/2019 Overview: 04/18/2012Patient has a history of asthma. She uses an albuterol inhaler when necessary. Routine gynecological examination 12/09/2014 09/18/2019 Overview: [facility]. Chlamydia infection 09/23/2013 09/18/2019 with adoption [...] of this encounter (statuses as of 08/14/2022) [facility] History of Past illness Narrative* Problem Noted Date Resolved Date Urinary incontinence 04/27/2020 04/28/2020 Uncomplicated asthma 09/07/2015 09/18/2019 Overview: 04/18/2012Patient has a history of asthma. She uses an albuterol inhaler when necessary. Routine gynecological examination 12/09/2014 09/18/2019 Overview: [facility]. Chlamydia infection 09/23/2013 09/18/2019 with adoption [...] of this encounter (statuses as of 08/15/2022) [facility] History of Past illness Narrative* Problem Noted Date Resolved Date Urinary incontinence 04/27/2020 04/28/2020 Uncomplicated asthma 09/07/2015 09/18/2019 Overview: 04/18/2012Patient has a history of asthma. She uses an albuterol inhaler when necessary. Routine gynecological examination 12/09/2014 09/18/2019 Overview: [facility]. Chlamydia infection 09/23/2013 09/18/2019 with adoption [...] of this encounter (statuses as of 08/15/2022) [facility] History of Past illness Narrative* Problem Noted Date Resolved Date Urinary incontinence 04/27/2020 04/28/2020 Uncomplicated asthma 09/07/2015 09/18/2019 Overview: 04/18/2012Patient has a history of asthma. She uses an albuterol inhaler when necessary. Routine gynecological examination 12/09/2014 09/18/2019 Overview: [facility]. Chlamydia infection 09/23/2013 09/18/2019 with adoption [...] of this encounter (statuses as of 08/29/2022) [facility] History of Past illness Narrative* Problem Noted Date Resolved Date Urinary incontinence 04/27/2020 04/28/2020 Uncomplicated asthma 09/07/2015 09/18/2019 Overview: 04/18/2012Patient has a history of asthma. She uses an albuterol inhaler when necessary. Routine gynecological examination 12/09/2014 09/18/2019 Overview: [facility]. Chlamydia infection 09/23/2013 09/18/2019 with adoption [...] of this encounter (statuses as of 09/05/2022) [facility] History of Past illness Narrative* Problem Noted Date Resolved Date Urinary incontinence 04/27/2020 04/28/2020 Uncomplicated asthma 09/07/2015 09/18/2019 Overview: 04/18/2012Patient has a history of asthma. She uses an albuterol inhaler when necessary. Routine gynecological examination 12/09/2014 09/18/2019 Overview: [facility]. Chlamydia infection 09/23/2013 09/18/2019 with adoption [...] of this encounter (statuses as of 09/12/2022) [facility] History of Past illness Narrative* Problem Noted Date Resolved Date Urinary incontinence 04/27/2020 04/28/2020 Uncomplicated asthma 09/07/2015 09/18/2019 Overview: 04/18/2012Patient has a history of asthma. She uses an albuterol inhaler when necessary. Routine gynecological examination 12/09/2014 09/18/2019 Overview: [facility]. Chlamydia infection 09/23/2013 09/18/2019 with adoption [...] of this encounter (statuses as of 10/18/2022) [facility] History of Past illness Narrative* Problem Noted Date Resolved Date Urinary incontinence 04/27/2020 04/28/2020 Uncomplicated asthma 09/07/2015 09/18/2019 Overview: 04/18/2012Patient has a history of asthma. She uses an albuterol inhaler when necessary. Routine gynecological examination 12/09/2014 09/18/2019 Overview: [facility]. Chlamydia infection 09/23/2013 09/18/2019 with adoption [...] of this encounter (statuses as of 11/03/2022) [facility] History of Past illness Narrative* Problem Noted Date Resolved Date Urinary incontinence 04/27/2020 04/28/2020 Uncomplicated asthma 09/07/2015 09/18/2019 Overview: 04/18/2012Patient has a history of asthma. She uses an albuterol inhaler when necessary. Routine gynecological examination 12/09/2014 09/18/2019 Overview: [facility]. Chlamydia infection 09/23/2013 09/18/2019 with adoption [...] of this encounter (statuses as of 11/03/2022) [facility] History of Past illness Narrative* Problem Noted Date Resolved Date Urinary incontinence 04/27/2020 04/28/2020 Uncomplicated asthma 09/07/2015 09/18/2019 Overview: 04/18/2012Patient has a history of asthma. She uses an albuterol inhaler when necessary. Routine gynecological examination 12/09/2014 09/18/2019 Overview: [facility]. Chlamydia infection 09/23/2013 09/18/2019 with adoption [...] of this encounter (statuses as of 11/04/2022) [facility] History of Past illness Narrative* Problem Noted Date Resolved Date Urinary incontinence 04/27/2020 04/28/2020 Uncomplicated asthma 09/07/2015 09/18/2019 Overview: 04/18/2012Patient has a history of asthma. She uses an albuterol inhaler when necessary. Routine gynecological examination 12/09/2014 09/18/2019 Overview: [facility]. Chlamydia infection 09/23/2013 09/18/2019 with adoption [...] of this encounter (statuses as of 11/06/2022) [facility] of Past illness Narrative* Problem Noted Date Resolved Date Urinary incontinence 04/27/2020 04/28/2020 Uncomplicated asthma 09/07/2015 09/18/2019 Overview: 04/18/2012Patient has a history of asthma. She uses an albuterol inhaler when necessary. Routine gynecological examination 12/09/2014 09/18/2019 Overview: [facility]. Chlamydia infection 09/23/2013 09/18/2019 with adoption [...] of this encounter (statuses as of 11/07/2022) [facility] of Past illness Narrative* Problem Noted Date Resolved Date Urinary incontinence 04/27/2020 04/28/2020 Uncomplicated asthma 09/07/2015 09/18/2019 Overview: 04/18/2012Patient has a history of asthma. She uses an albuterol inhaler when necessary. Routine gynecological examination 12/09/2014 09/18/2019 Overview: [facility]. Chlamydia infection 09/23/2013 09/18/2019 with adoption [...] of this encounter (statuses as of 11/09/2022) [facility] History of Past illness Narrative* Problem Noted Date Resolved Date Urinary incontinence 04/27/2020 04/28/2020 Uncomplicated asthma 09/07/2015 09/18/2019 Overview: 04/18/2012Patient has a history of asthma. She uses an albuterol inhaler when necessary. Routine gynecological examination 12/09/2014 09/18/2019 Overview: [facility]. Chlamydia infection 09/23/2013 09/18/2019 with adoption [...] of this encounter (statuses as of 11/09/2022) [facility] History of Past illness Narrative* Problem Noted Date Resolved Date Urinary incontinence 04/27/2020 04/28/2020 Uncomplicated asthma 09/07/2015 09/18/2019 Overview: 04/18/2012Patient has a history of asthma. She uses an albuterol inhaler when necessary. Routine gynecological examination 12/09/2014 09/18/2019 Overview: [facility]. Chlamydia infection 09/23/2013 09/18/2019 with adoption [...] of this encounter (statuses as of 11/15/2022) [facility] of Past illness Narrative* Problem Noted Date Resolved Date Urinary incontinence 04/27/2020 04/28/2020 Uncomplicated asthma 09/07/2015 09/18/2019 Overview: 04/18/2012Patient has a history of asthma. She uses an albuterol inhaler when necessary. Routine gynecological examination 12/09/2014 09/18/2019 Overview: [facility]. Chlamydia infection 09/23/2013 09/18/2019 with adoption [...] of this encounter (statuses as of 11/15/2022) [facility] of Past illness Narrative* Problem Noted Date Resolved Date Urinary incontinence 04/27/2020 04/28/2020 Uncomplicated asthma 09/07/2015 09/18/2019 Overview: 04/18/2012Patient has a history of asthma. She uses an albuterol inhaler when necessary. Routine gynecological examination 12/09/2014 09/18/2019 Overview: [facility]. Chlamydia infection 09/23/2013 09/18/2019 with adoption [...] of this encounter (statuses as of 11/17/2022) [facility] of Past illness Narrative* Problem Noted Date Resolved Date Urinary incontinence 04/27/2020 04/28/2020 Uncomplicated asthma 09/07/2015 09/18/2019 Overview: 04/18/2012Patient has a history of asthma. She uses an albuterol inhaler when necessary. Routine gynecological examination 12/09/2014 09/18/2019 Overview: [facility]. Chlamydia infection 09/23/2013 09/18/2019 with adoption [...] of this encounter (statuses as of 11/23/2022) [facility] of Past illness Narrative* Problem Noted Date Resolved Date Urinary incontinence 04/27/2020 04/28/2020 Uncomplicated asthma 09/07/2015 09/18/2019 Overview: 04/18/2012Patient has a history of asthma. She uses an albuterol inhaler when necessary. Routine gynecological examination 12/09/2014 09/18/2019 Overview: [facility]. Chlamydia infection 09/23/2013 09/18/2019 with adoption [...] of this encounter (statuses as of 12/21/2022) [facility] of Past illness Narrative* Problem Noted Date Resolved Date Urinary incontinence 04/27/2020 04/28/2020 Uncomplicated asthma 09/07/2015 09/18/2019 Overview: 04/18/2012Patient has a history of asthma. She uses an albuterol inhaler when necessary. Routine gynecological examination 12/09/2014 09/18/2019 Overview: [facility]. Chlamydia infection 09/23/2013 09/18/2019 with adoption [...] of this encounter (statuses as of 12/27/2022) [facility] Carmelita Millan [facility] May 11, 2023 3:39pm Note Date/Time May 11, 2023 3 :39pm [facility] Medical Records Department [address] [place] [address] Instructions for Home/Discharge Instructions 05/11/23 1538 MR#: [id number] Acct: [id number] Name: FADUMO HENSLEY Rep #:[id number] : 1995 27 From: Carmelita Millan MD PCP: Dr. Joe Reeves MD [place] [place] Instructions Diet Discharge Diet: No restrictions [...] When: 2-4 weeks or as needed. Call [phone] to make an appointment or with any concerns or send a [email or web address] message. Test Results: Test results from this [...] Order can be placed): Home, Self Care 05/11/23 1539<Electronically signed by Carmelita Millan MD>Carmelita Millan MD CC: Dr. Joe Reeves MD ~ Signed [facility] Work Phone: Evaluation + Plan note No data available for this section [facility] Evaluation + Plan note Future Appointments [facility] Evaluation note* Diagnosis Heartburn Attention deficit hyperactivity disorder (ADHD), predominantly inattentive type documented in this encounter [facility] note* Diagnosis Attention deficit hyperactivity disorder (ADHD), predominantly inattentive type- Primary Anxiety with depression documented in this encounter [facility] note* Diagnosis Attention deficit hyperactivity disorder (ADHD), predominantly inattentive type documented in this encounter [facility] note* Diagnosis Attention deficit hyperactivity disorder (ADHD), predominantly inattentive type- Primary Anxiety with depression documented in this encounter [facility] note* Diagnosis Rash- Primary Rash and other nonspecific skin eruption [facility] Screen for STD (sexually transmitted disease)- Primary Screening examination for venereal disease Encounter for gynecological examination (general) (routine) without abnormal findings Screening for cervical cancer Screening for malignant neoplasm of the cervix Encounter for screening for human papillomavirus (HPV) Special screening examination for human papillomavirus (HPV) [facility] [place] [facility] Diagnosis 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 of cervix- Primary Papanicolaou smear of cervix with high grade squamous intraepithelial lesion (HGSIL) [facility] [place] [facility] Diagnosis Encounter for IUD removal- Primary Encounter for removal of intrauterine contraceptive device Vaginal discharge Leukorrhea, not specified as infective [facility] [place] [facility] Diagnosis Missed menses- Primary Absence of menstruation Positive urine test examination or test, positive result [facility] [place] [facility] Diagnosis 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 Positive urine test examination or test, positive result [facility] [place] [facility]* Diagnosis at early stage- Primary state, [...] whether esophagitis present [facility] [place] [facility]* Diagnosis Threatened - Primary Threatened , unspecified as to episode of care [facility] [place] [facility]* Diagnosis Threatened - Primary Threatened , unspecified as to episode of care [facility] [place] [facility]* Diagnosis Supervision of high risk , antepartum- Primary Spotting in early Spotting complicating , antepartum condition or complication History of depression Personal history of other mental disorder Drug abuse (HCC) Other, mixed, or unspecified nondependent drug abuse, unspecified Engages in vaping History of macrosomia in in prior , currently with other poor obstetric history Patient request for diagnostic testing Other specified examination [facility] [place] [facility]* Diagnosis Encounter for supervision of other normal in first trimester- Primary [facility]* Diagnosis Encounter for supervision of other normal in first trimester- Primary 12 weeks gestation of state, incidental [facility]* Diagnosis Intractable migraine without aura and with status migrainosus- Primary Migraine without aura, with intractable migraine, so stated, with status migrainosus [facility] Diagnosis Encounter for (NT) nuchal translucency scan- Primary Other specified screening 13 weeks gestation of state, incidental [facility] Diagnosis Intractable migraine without aura and with status migrainosus- Primary Migraine without aura, with intractable migraine, so stated, with status migrainosus at early stage state, incidental [facility] Diagnosis Viral illness- Primary Unspecified viral infection, in conditions classified elsewhere and of unspecified site [facility] Diagnosis Intractable migraine without aura and with status migrainosus Migraine without aura, with intractable migraine, so stated, with status migrainosus [facility] Diagnosis 19 weeks gestation of - Primary state, incidental Migraine with aura and without status migrainosus, not intractable Migraine with aura, without mention of intractable migraine without mention of status migrainosus Engages in vaping [facility] Diagnosis Encounter for anatomic survey- Primary 22 weeks gestation of state, incidental Obesity complicating , second trimester [facility] Diagnosis Pharyngitis, unspecified etiology- Primary Ulcer of lower lip [facility] Diagnosis URI, acute- Primary Acute upper respiratory infections of unspecified site [facility] Diagnosis 24 weeks gestation of - Primary state, incidental Encounter for supervision of other normal in second trimester [facility]* Diagnosis Viral URI- Primary Acute upper respiratory infections of unspecified site Pharyngitis, unspecified etiology [facility] Diagnosis Accident caused by hypodermic needle, initial encounter- Primary 24 weeks gestation of state, incidental [facility] [place] [facility]* Diagnosis Panic disorder- Primary Panic disorder without agoraphobia Nicotine withdrawal Drug withdrawal [facility] [place] [facility] Diagnosis 34 weeks gestation of - Primary state, incidental Limited care in third trimester Supervision of other high risk pregnancies, third trimester Size of fetus inconsistent with dates in third trimester Need for Tdap vaccination Need for prophylactic vaccination with combined [id number] (DTP) vaccine documented [facility] [place] [facility]* Diagnosis 36 weeks gestation of - Primary state, incidental Abnormal glucose complicating Abnormal maternal glucose tolerance, complicating , childbirth, or the puerperium, unspecified as to episode of care [facility] [place] [facility]* Diagnosis Size of fetus inconsistent with dates in third trimester- Primary Limited care in third trimester Supervision of other high risk pregnancies, third trimester 36 weeks gestation of state, incidental [facility] [place] [facility]* Diagnosis Anemia during in second trimester- Primary Elevated glucose Other abnormal glucose [facility] [place] [facility]* Diagnosis Acute cough- Primary Wheezing documented [facility] [place] [facility]* Diagnosis Diet controlled gestational diabetes mellitus (GDM), antepartum- Primary Abnormal maternal glucose tolerance, antepartum [facility] [place] [facility]* Diagnosis Diet controlled gestational diabetes mellitus (GDM), antepartum- Primary [facility] [place] [facility]* Diagnosis Onset Date Resolution Status High risk multigravida [facility] Work Phone: Evaluation note* Diagnosis Diet controlled gestational diabetes mellitus (GDM) in second trimester- Primary [facility] [place] [facility]* Diagnosis 38 weeks gestation of - Primary state, incidental [facility] [place] [facility]* Diagnosis Dietary counseling- Primary Dietary surveillance and counseling Diet controlled gestational diabetes mellitus (GDM), antepartum [facility] [place] [facility]* Diagnosis Onset Date Resolution Status High risk multigravida acute High risk multigravida acute 39 weeks gestation of acute Gestational diabetes, diet controlled acute High risk multigravida acute (spontaneous vaginal delivery) acute [facility] Work Phone: Evaluation note* Diagnosis Papanicolaou smear of cervix with high grade squamous intraepithelial lesion (HGSIL)- Primary [facility]* Diagnosis Encounter for contraceptive management, unspecified type [facility]* Diagnosis General counseling and advice for contraceptive management- Primary Other general counseling and advice for contraceptive management Encounter for prescription for nuvaring Surveillance of other previously prescribed contraceptive method [facility]* Diagnosis ADHD (attention deficit hyperactivity disorder), inattentive type- Primary Attention deficit disorder without mention of hyperactivity Controlled substance agreement signed Encounter for long-term (current) use of other medications Encounter for test, result unknown [facility]* Diagnosis Onset Date Resolution Status High risk multigravida acute High risk multigravida acute 39 weeks gestation of acute Gestational diabetes, diet controlled acute High risk multigravida acute (spontaneous vaginal delivery) acute nipple pain nonea ctive Care and examination of lactating mother noneactive nipple pain nonea ctive Care and examination of lactating mother noneactive Other disorders of noneactive [facility] Work Phone: Evaluation note* Diagnosis ADHD (attention deficit hyperactivity disorder), inattentive type- Primary Attention deficit disorder without mention of hyperactivity [facility] Diagnosis Migraine with aura, not intractable, without status migrainosus- Primary DDD (degenerative disc disease), lumbar Degeneration of lumbar or lumbosacral intervertebral disc [facility] [place] [facility]* Diagnosis Kidney stone- Primary Calculus of kidney [facility] Diagnosis Flank pain- Primary Abdominal pain, unspecified site Lower abdominal pain Abdominal pain, other specified site [facility]* Diagnosis General counseling and advice for contraceptive management- Primary Other general counseling and advice for contraceptive management High grade squamous intraepithelial lesion (HGSIL), grade 3 MANUEL, on biopsy of cervix [facility]* Diagnosis Disturbance of skin sensation- Primary Myofascial pain Mylagia and myositis, unspecified Chronic bilateral low back pain without sciatica [facility]* Diagnosis COVID-19 virus infection- Primary [facility] [place] [facility]* Diagnosis ADHD (attention deficit hyperactivity disorder), inattentive type Attention deficit disorder without mention of hyperactivity [facility] [place] [facility]* Diagnosis ADHD (attention deficit hyperactivity disorder), inattentive type Attention deficit disorder without mention of hyperactivity [facility] [place] [facility]* Diagnosis MANUEL III (cervical intraepithelial neoplasia grade III) with severe dysplasia- Primary Carcinoma in situ of cervix uteri General counseling and advice for contraceptive management Other general counseling and advice for contraceptive management Anxiety due to invasive procedure [facility] [place] [facility]* Diagnosis Onset Date Resolution Status Herniated lumbar intervertebral disc acute DDD (degenerative disc disease), lumbar acute MANUEL III (cervical intraepith elial neoplasia grade III) with severe dysplasia acute Encounter for IUD insertion [facility] Work Phone: Evaluation note* Diagnosis ADHD (attention deficit hyperactivity disorder), inattentive type Attention deficit disorder without mention of hyperactivity Controlled substance agreement signed Encounter for long-term (current) use of other medications Encounter for test, result unknown [facility] [place] [facility]* Diagnosis MANUEL III (cervical intraepithelial neoplasia grade III) with severe dysplasia- Primary 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), grade 3 MANUEL, on biopsy of cervix [facility] [place] [facility]* Diagnosis Migraine with aura, not intractable, without status migrainosus [facility] [place] [facility]* Diagnosis Migraine with aura and without status migrainosus, not intractable- Primary Migraine with aura, without mention of intractable migraine without mention of status migrainosus FTND (full term normal delivery) Normal delivery [facility] [place] [facility]* Diagnosis MANUEL III (cervical intraepithelial neoplasia grade III) with severe dysplasia- Primary Carcinoma in situ of cervix uteri IUD check up Surveillance of previously prescribed intrauterine contraceptive device [facility] [place] [facility]* Diagnosis Chest pain, unspecified type- Primary Numbness and tingling of right side of face [facility] [place] [facility]* Diagnosis Chest pain, unspecified type- Primary Numbness and tingling of right side of face Anxiety with depression Overweight with body mass index (BMI) of 28 to 28.9 in adult [facility] Diagnosis Adult ADHD- Primary Attention deficit [...] 29.9 in adult [facility]* Diagnosis ADHD (attention deficit hyperactivity disorder), inattentive type Attention deficit disorder without mention of hyperactivity [facility] [place] [facility]* Diagnosis Urinary tract infection without hematuria, site unspecified- Primary Flank pain Abdominal pain, unspecified site Adrenal adenoma, unspecified laterality Renal calculi Calculus of kidney documented in this encounter [facility] Work Phone: Evaluation note* Diagnosis Disorder of adrenal gland (HCC)- Primary Unspecified disorder of adrenal glands Adrenal mass 1 cm to 4 cm in diameter (HCC) documented [facility] [place] [facility]* Diagnosis Routine physical examination- Primary Routine [...] mention of hyperactivity [facility] [place] [facility]* Diagnosis ADHD (attention deficit hyperactivity disorder), inattentive type Attention deficit disorder without mention of hyperactivity [facility] [place] [facility]* Diagnosis Disorder of adrenal gland (HCC)- Primary Unspecified disorder of adrenal glands [facility]* Diagnosis Panic disorder Panic disorder without agoraphobia [facility] [place] [facility]* Diagnosis ADHD (attention deficit hyperactivity disorder), inattentive type- Primary Attention deficit disorder without mention of hyperactivity Panic disorder Panic disorder without agoraphobia Facial paralysis Terry's palsy Cramping of hands Cramp of limb Near syncope Syncope and collapse [facility] [place] [facility]* Diagnosis Flank pain Abdominal pain, unspecified site Kidney stones Calculus of kidney documented in this encounter [facility] Work Phone: Evaluation note* Diagnosis Kidney stones Calculus of kidney documented in this encounter [facility] Work Phone: Evaluation note* Diagnosis [...] and obstetric disorders [facility] [place] [facility]* Diagnosis Flank pain Abdominal pain, unspecified site Kidney stones Calculus of kidney documented in this encounter [facility] Work Phone: Evaluation note* Diagnosis Migraine with aura and without status migrainosus, not intractable- Primary Migraine with aura, without mention of intractable migraine without mention of status migrainosus Cramping of hands Cramp of limb Facial paralysis Terry's palsy Near syncope Syncope and collapse Adrenal nodule (HCC) Unspecified disorder of adrenal glands [facility] [place] [facility]* Diagnosis Disorder of adrenal gland (HCC) Unspecified disorder of adrenal glands Migraine with aura and without status migrainosus, not intractable Migraine with aura, without mention of intractable migraine without mention of status migrainosus FTND (full term normal delivery) Normal delivery [facility] [place] [facility]* Diagnosis Migraine with aura and without status migrainosus, not intractable Migraine with aura, without mention of intractable migraine without mention of status migrainosus FTND (full term normal delivery) Normal delivery [facility] [place] [facility]* Diagnosis Migraine with aura and without status migrainosus, not intractable- Primary Migraine with aura, without mention of intractable migraine without mention of status migrainosus [facility] [place] [facility]* Diagnosis Motion sickness, initial encounter- Primary [facility] [place] [facility]* Diagnosis ADHD (attention deficit hyperactivity disorder), inattentive type Attention deficit disorder without mention of hyperactivity [facility] [place] [facility]* Diagnosis Kidney stone- Primary Calculus of kidney Kidney stone Calculus of kidney Hepatitis C virus carrier state (Multi) Chronic pain syndrome Chronic low back pain Lumbago Skin cancer Other malignant neoplasm of skin, site unspecified documented in this encounter [facility] Work Phone: Evaluation note* Diagnosis Migraine headaches- Primary [facility] [place] [facility]* Diagnosis Migraine with aura, not intractable, without status migrainosus- Primary [facility] [place] [facility]* Diagnosis Anxiety reaction- Primary Anxiety state, unspecified documented in this encounter [facility] Work Phone: Evaluation note* Diagnosis [...] and parasitic disease [facility] [place] [facility]* Diagnosis Adrenal nodule (HCC)- Primary Unspecified disorder of adrenal glands ADHD (attention deficit hyperactivity disorder), inattentive type- Primary Attention deficit disorder without mention of hyperactivity Panic disorder Panic disorder without agoraphobia Anxiety with depression Migraine with aura, not intractable, without status migrainosus History of hepatitis C Personal history of other infectious and parasitic disease [facility] [place] [facility]* Diagnosis ADHD (attention deficit hyperactivity disorder), inattentive type- Primary Attention deficit disorder without mention of hyperactivity Panic disorder Panic disorder without agoraphobia Anxiety with depression Migraine with aura, not intractable, without status migrainosus History of hepatitis C Personal history of other infectious and parasitic disease [facility] [place] [facility]* Diagnosis Malpositioned intrauterine device (IUD), initial encounter- Primary [facility] [place] [facility]* Diagnosis Abnormal EKG- Primary Nonspecific abnormal electrocardiogram (ECG) (EKG) Pain, dental Unspecified disorder of the teeth and supporting structures [facility] [place] [facility]* Diagnosis Chronic midline low back pain without sciatica- Primary [facility] [place] [facility]* Diagnosis Right lower quadrant abdominal pain- Primary Abdominal pain, right lower quadrant [facility] [place] [facility]* Diagnosis Pain, dental- Primary Unspecified disorder of the teeth and supporting structures Dental infection Acute apical periodontitis of pulpal origin [facility] [place] [facility]* Diagnosis Chronic midline low back pain without sciatica [facility] [place] [facility]* Diagnosis RBBB- Primary Right bundle branch [...] of the cervix [facility] [place] [facility]* Diagnosis Encounter for IUD removal- Primary [...] of the cervix [facility] [place] [facility]* Diagnosis Class 1 obesity due to [...] of the cervix [facility] [place] [facility]* Diagnosis Chronic midline low back pain [...] of the cervix documented [facility] [place] [facility]* Diagnosis Other abnormal cytological finding of [...] of the cervix documented [facility] [place] [facility]* Diagnosis Sore throat- Primary Acute pharyngitis [...] of the cervix [facility] [place] [facility]* Diagnosis Chronic midline low back pain [...] of the cervix documented in this encounter [facility] note* Diagnosis Atypical glandular cells of undetermined [...] of the cervix [facility] [place] [facility]* Diagnosis Dental abscess- Primary Periapical abscess without sinus documented in this encounter [facility] Work Phone: Evaluation note* Diagnosis [...] of the cervix [facility] [place] [facility]* Diagnosis Migraine with aura and without [...] of the cervix [facility] [place] [facility]* Diagnosis Procedure, test, or exam not indicated- Primary Procedure not carried out for other reasons [facility] [place] [facility]* Diagnosis Chronic midline low back pain without sciatica [facility] [place] [facility]* Diagnosis Other migraine with status migrainosus, intractable- Primary documented in this encounter [facility] Work Phone: evaluation note* Diagnosis Chronic midline low back pain without sciatica [facility] [place] [facility]* Diagnosis Chronic midline low back pain without sciatica documented [facility] this [facility] [place] [facility]* Diagnosis Chronic midline low back pain without sciatica documented in this encounter [facility] note* Diagnosis Lumbar contusion, initial encounter- Primary documented in this encounter [facility] Work Phone: Evaluation note* Diagnosis Degeneration of intervertebral disc of lumbar region with discogenic back pain- Primary Bulging of intervertebral disc between L4 and L5 and L5 and S1 ADHD (attention deficit hyperactivity disorder), inattentive type Attention deficit disorder without mention of hyperactivity Anxiety with depression [facility] [place] [facility]* Diagnosis Chronic midline low back pain without sciatica documented [facility] [place] [facility]* Diagnosis Pelvic pain in female- Primary Unspecified symptom associated with female genital organs Dysmenorrhea Irregular menstruation Irregular menstrual cycle Encounter for surveillance of vaginal ring hormonal contraceptive device documented in this encounter [facility] note* Diagnosis Pelvic pain in female- Primary Unspecified symptom associated with female genital organs documented in this encounter [facility] [facility] [place] [facility]* Diagnosis Lower abdominal pain- Primary Abdominal pain, other specified site documented in this encounter [facility] Work Phone: Evaluation note* Diagnosis Encounter for IUD insertion- Primary Encounter for insertion of intrauterine contraceptive device [facility]* Diagnosis Right lower quadrant abdominal pain- [...] hazards to health documented in this encounter [facility] note* Diagnosis Encounter for test, result positive (HCC) examination or test, positive result [facility]* Diagnosis Anxiety neurosis- Primary Anxiety state, unspecified Attention deficit hyperactivity disorder (ADHD), combined type Unplanned (HCC) state, incidental * Assessment & Plan Note - Carmelita Millan MD - 03/30/2025 1:27 PM EDT Associated Problem(s): Attention deficit disorder refill of lamictal until sees psychiatry. [facility]* Diagnosis Palpitations- Primary documented in this encounter [facility] Work Phone: Hospital Discharge instructions Additional Instructions Keep next appointment OB in office next week.[facility] Work Phone: Hospital Discharge instructions Additional Instructions Please follow-up with the orthopedic doctor we have referred you to and return for any worsening of your symptoms.[facility] Work Phone: Hospital Discharge instructions* Attachments The following attachments cannot be sent through Care Everywhere. * Kidney Stone, Adult ED ([place]) [facility] Discharge instructions* Attachments The following attachments cannot be sent through Care Everywhere. * Generalized Anxiety Disorder Discharge Instructions ([place]) [facility] Hospital Discharge instructions No data available for this section [facility] Hospital Discharge instructions* Attachments The following attachments cannot be sent through Care Everywhere. * Tooth Abscess Discharge Instructions ([place]) [facility] Discharge instructions* Attachments The following attachments cannot be sent through Care Everywhere. * Migraines Discharge Instructions ([place]) [facility]* Attachments The following attachments cannot be sent through Care Everywhere. * Minor Contusion ED ([place]) [facility]: Hospital Discharge instructions* Attachments The following attachments cannot be sent through Care Everywhere. * Abdominal pain ([place]itian) [facility]: Hospital Discharge instructions* Attachments The following attachments cannot be sent through Care Everywhere. * Palpitations ED discharge instructions (Kittitian) * Ambulatory Cardiac Monitoring ([place]ittitian) [facility] Work Phone: Progress note No data available for this section [facility] Reason for referral (narrative)* Outpatient Procedure (Routine) - Pending Review Specialty Diagnoses / Procedures Referred By Dave rocha Referred To Contact [facility] Diagnoses Encounter for gynecological examination (general) (routine) without abnormal findings Procedures REMOVE INTRAUTERINE DEVICE REMOVE INTRAUTERINE DEVICE Sulma Bartholomew APRN.CNM [address] [place] [address] [place] [id number] Referral ID Status Reason Start Date Expiration Date Visits Requested Visits Authorized [id number] Pending Review Auto-Generat ed Referral 12/28/2021 12/28/2022 1 1 [facility] for referral (narrative)* Outpatient Procedure (Routine) - Authorized Specialty Diagnoses / Procedures Referred By Dave rocha Referred To Contact [facility] Diagnoses 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 of cervix Procedures COLPOSCOPY COLPOSCOPY CERVIX BX CERVIX & ENDOCRV CURRETAGE Sulma Bartholomew APRN.CNM [address] [place] [address] [address] Referral ID Status Reason Start Date Expiration Date Visits Requested Visits Authorized [id number] Authorized Auto-Generat ed Referral 01/10/2022 01/10/2023 1 1 [facility] for referral (narrative)* Outpatient Procedure (Routine) - Pending Review Specialty Diagnoses / Procedures Referred By Dave rocha Referred To Contact [facility] Diagnoses Encounter for IUD removal Procedures REMOVE INTRAUTERINE DEVICE REMOVE INTRAUTERINE DEVICE Sulma Bartholomew APRN.CNM [address] [place] [address] [place] [id number] [place] [address] Referral ID Status Reason Start Date Expiration Date Visits Requested Visits Authorized [id number] Pending Review Auto-Generat ed Referral 01/19/2022 01/19/2023 1 1 [facility] for referral (narrative)* Diagnostic Procedure Only (Routine) - Authorized Specialty Diagnoses / Procedures Referred By Contac t Referred To Contact [facility] Diagnoses 34 weeks gestation of Limited care in third trimester Supervision of other high risk pregnancies, third trimester Size of fetus inconsistent with dates in third trimester Procedures OBSTETRIC ULTRASOUND WHI US PREG UTERUS AFTER 1ST TRIMEST GESTATION Carmelita Millan MD [address] [place] [address] [address] Referral ID Status Reason Start Date Expiration Date Visits Requested Visits Authorized [id number] Authorized Auto-Generat ed Referral 10/18/2022 10/18/2023 1 1 [facility] for referral (narrative)* Diagnostic Procedure Only (Routine) - Pending Review Specialty Diagnoses / Procedures Referred By Contac t Referred To Contact [facility] Diagnoses Diet controlled gestational diabetes mellitus (GDM), antepartum Procedures OBSTETRIC ULTRASOUND WHI US PREG UTERUS AFTER 1ST TRIMEST GESTATION Sulma Bartholomew APRN.CNM [address] [place] [address] [address] Referral ID Status Reason Start Date Expiration Date Visits Requested Visits Authorized [id number] Pending Review Auto-Generat ed Referral 11/08/2022 11/08/2023 1 1 [facility] for referral (narrative)* Outpatient Procedure (Routine) - Pending Review Specialty Diagnoses / Procedures Referred By Contac t Referred To Contact [facility] Diagnoses Papanicolaou smear of cervix with high grade squamous intraepithelial lesion (HGSIL) Procedures COLPOSCOPY COLPOSCOPY CERVIX BX CERVIX & ENDOCRV CURRETAGE Carmelita Millan MD [address] [place] [address] [facility] [address] [place] [address] Referral ID Status Reason Start Date Expiration Date Visits Requested Visits Authorized [id number] Pending Review Auto-Generat ed Referral 12/27/2022 12/27/2023 1 1 [facility] for referral (narrative)* Outpatient Procedure (Routine) - Pending Review Specialty Diagnoses / Procedures Referred By Dave t Referred To Contact [facility] Diagnoses Encounter for IUD insertion Encounter for contraceptive management, unspecified type Procedures INSERT INTRAUTERINE DEVICE LEVONORGESTREL IU 52MG 5 YR INSERT INTRAUTERINE DEVICE Carmelita Millan MD [address] [place] [address] [facility] [address] [place] [address] Referral ID Status Reason Start Date Expiration Date Visits Requested Visits Authorized [id number] Pending Review Auto-Generat ed Referral 01/03/2023 01/03/2024 1 1 [facility] for referral (narrative)* Diagnostic Procedure Only (Urgent) - Pending Review Specialty Diagnoses / Procedures Referred By Soteroac t Referred To Contact [facility] Diagnoses Flank pain Procedures US KIDNEY/BLADDER US RETROPERITONEAL REAL TIME W/IMAGE COMPLETE Debby Reeves MD [address] [place] [address] [place] [address] Referral ID Status Reason Start Date Expiration Date Visits Requested Visits Authorized [id number] Pending Review Auto-Generat ed Referral 03/13/2023 04/11/2024 1 1 [facility] for referral (narrative)* Outpatient Procedure (Routine) - Denied Specialty Diagnoses / Procedures Referred By Dave rocha Referred To Contact [facility] Diagnoses Malpositioned intrauterine device (IUD), initial encounter Encounter for insertion of intrauterine contraceptive device Encounter for removal of intrauterine contraceptive device Procedures REMOVE INTRAUTERINE DEVICE REMOVE INTRAUTERINE DEVICE LEVONORGESTREL IU 52MG 5 YR INSERT INTRAUTERINE DEVICE Carmelita Millan MD [address] [place] [place] [address] [place] [address] Referral ID Status Reason Start Date Expiration Date V isits Requested Visits Authorized [id number] Denied Auto-Generate d Referral 03/18/2024 03/18/2025 1 0 [facility] for referral (narrative)* Outpatient Procedure (Routine) - New Request Specialty Diagnoses / Procedures Referred By Dave rocha Referred To Contact [facility] Diagnoses Encounter for IUD removal Procedures REMOVE INTRAUTERINE DEVICE REMOVE INTRAUTERINE DEVICE Angela Haq APRN.JAMES [address] [place] [address] [address] Referral ID Status Reason Start Date Expiration Date Visits Requested Visits Authorized [id number] New Request Auto-Generat ed Referral 05/19/2025 1 1 [facility] for referral (narrative)* Outpatient Procedure (Routine) - Authorized Specialty Diagnoses / Procedures Referred By Dave rocha Referred To Contact [facility] Diagnoses Other abnormal cytological finding of specimen from cervix Procedures COLPOSCOPY COLPOSCOPY CERVIX BX CERVIX & ENDOCRV CURRETAGE Angela Haq APRN.CNP [address] [place] [address] [address] Referral ID Status Reason Start Date Expiration Date Visits Requested Visits Authorized [id number] Authorized Auto-Generat ed Referral 05/26/2024 05/26/2025 1 1 [facility] for visit Narrative* Diagnostic Procedure Only (Routine) - Closed Specialty Diagnoses / Procedures Referred By Contac t Referred To Contact [facility] Diagnoses Pelvic pain in female Procedures PELVIC US [facility] US PELVIC NONOBSTETRIC REAL-TIME IMAGE COMPLETE Carmelita Millan MD [address] [place] [address] Phone: tel: fax:[phone] [address] Referral ID Status Reason Start Date Expiration Date V isits Requested Visits Authorized [id number] Closed Auto-Generate d Referral 01/29/2025 01/29/2026 1 1 [facility] for visit Narrative* Diagnostic Procedure Only (Routine) - Closed Specialty Diagnoses / Procedures Referred By Contac t Referred To Contact [facility] Diagnoses Encounter for test, result positive (HCC) Procedures PELVIC US [facility] US PELVIC NONOBSTETRIC REAL-TIME IMAGE COMPLETE Candice Orozco APRN.CNP [address] 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 Advance Directive(s) 10/27/2020 10:15 AM Advance Directive(s) 04/27/2020 2:43 AM Advance Directive Response Recorded Date/ Time Advance Directives No July 28, 2015 12:11am Living Will No May 02 7:41pm Power of Inside Account Representative No May 02, 2022 7:41pm Advance Directive Response Recorded Date/ Time Advance Directives No July 28, 2015 12:11am Living Will No August 13 8:00pm Power of Inside Account Representative No August 13, 2022 8:00pm Advance Directive Response Recorded Date/ Time Advance Directives No July 28, 2015 12:11am Living Will No November 22, 2022 7: 32am Power of Inside Account Representative No November 22, 2022 7:32am Advance Directive Response Recorded Date/ Time Advance Directives No July 28, 2015 12:11am Living Will No February 16, 2023 4:35pm Power of Inside Account Representative No February 16 4:35pm Advance Directive Response Recorded Date/ Time Advance Directives No July 28, 2015 12:11am Living Will No May 04 1:39pm Power of Inside Account Representative No May 04, 2023 1:39pm Advance Directive Response Recorded Date/ Time Advance Directives No July 27, 2015 11:11pm Living Will No June 04, 023 6:45pm Power of Inside Account Representative No June 04, 2023 6:45pm Date Activated Date Inactivated Comments 11/06/2023 6:59 AM Question Answer Comments Plan of Care: Code Status Discussion Completed Decision Maker: Patient Date Activated Date Inactivated Comments 11/06/2023 6:59 AM Question Answer Comments Plan of Care: Code Status Discussion Completed Decision Maker: Patient Hospital Course Note HNO ID: [id number] Author: Susan DavisWestover Air Force Base HospitalSimon Olivares Service: General Internal Medicine Author Type: [...] Referral Specialty Diagnoses / Procedures Referred By Dave rocha Referred To Contact Debby Reeves MD [address] [place] [address] Referral ID Status Reason Start Date Expiration Date Visits Re quested Visits Authorized [id number] Closed 1 1 Specialty Diagnoses / Procedures Referred By Dave rocha Referred To Contact Diagnoses Migraine with aura and without status migrainosus, not intractable Procedures CONSULT TO HEADACHE CLINIC OFFICE/OUTPATIENT [facility] 60-74 MINUTES Sulma Bartholomew APRN.KRYSTYNA [address] [place] [address] Referral ID Status Reason Start Date Expiration Date Visits Requested Visits Authorized [id number] Authorized PCP Requested Referral 07/06/2023 1 1 Specialty Diagnoses / Procedures Referred By Contac t Referred To Contact Nutrition Diagnoses Diet controlled gestational diabetes mellitus (GDM), antepartum Procedures CONSULT TO NUTRITION THERAPY MEDICAL NUTRITION ASSMT&IVNTJ INDIV EACH 15 SC MEDICAL NUTRITION ASSMT&IVNTJ INDIV EACH 15 SC MEDICAL NUTRITION ASSMT&IVNTJ INDIV EACH 15 SC MEDICAL NUTRITION ASSMT&IVNTJ INDIV EACH 15 SC Sulma Bartholomew APRN.CN [address] [place] [address] Referral ID Status Reason Start Date Expiration Date Visits Requested Visits Authorized [id number] Authorized PCP Requested Referral 11/08/2022 11/08/2023 1 1 Specialty Diagnoses / Procedures Referred By Contac t Referred To Contact Urology Diagnoses Kidney stone Procedures CONSULT TO UROLOGY OFFICE/OUTPATIENT [facility] 60-74 MINUTES Debby Reeves MD [address] [place] [address] Referral ID Status Reason Start Date Expiration Date Visits Requested Visits Authorized [id number] Authorized PCP Requested Referral 03/12/2023 03/11/2024 1 1 Specialty Diagnoses / Procedures Referred By Contac t Referred To Contact [facility] Diagnoses Disturbance of skin sensation Myofascial pain Chronic bilateral low back pain without sciatica Procedures CONSULT TO PHYSICAL THERAPY PHYSICAL THERAPY EVALUATION HIGH COMPLEX 45 MINS Brendon Ibarra, OTCAVIO.EDUCATION ADMINISTRATOR [address] [place] [address] [facility] [address] [place] [address] Referral ID Status Reason Start Date Expiration Date Visits Requested Visits Authorized [id number] Outside PCP Auto-Generat ed Referral 03/15/2023 03/14/2024 1 1 Specialty Diagnoses / Procedures Referred By Contac t Referred To Contact [facility] Diagnoses Migraine with aura and without status migrainosus, not intractable FTND (full term normal delivery) Procedures MRV BRAIN WO/W IVCON MRA; HEAD W & WO CONTRAST Lashon Saba PA-C [address] [place] [address] [facility] [place] [address] Referral ID Status Reason Start Date Expiration Date Visits Requested Visits Authorized [id number] Pending Review Auto-Generat ed Referral 05/30/2023 06/28/2024 1 1 Specialty Diagnoses / Procedures Referred By Contac t Referred To Contact Nutrition Diagnoses Overweight with body mass index (BMI) of 28 to 28.9 in adult Procedures CONSULT TO NUTRITION THERAPY MEDICAL NUTRITION ASSMT&IVNTJ INDIV EACH 15 SC MEDICAL NUTRITION ASSMT&IVNTJ INDIV EACH 15 SC MEDICAL NUTRITION ASSMT&IVNTJ INDIV EACH 15 SC MEDICAL NUTRITION ASSMT&IVNTJ INDIV EACH 15 SC Debby Reeves MD [address] [place] [address] Referral ID Status Reason Start Date Expiration Date Visits Requested Visits Authorized [id number] Authorized PCP Requested Referral 3 06/12/2024 1 1 Specialty Diagnoses / Procedures Referred By Contac t Referred To Contact Diagnoses Overweight with body mass index (BMI) of 29 to 29.9 in adult Procedures ENDOCRINE MEDICAL WEIGHT MANAGEMENT OFFICE/OUTPATIENT [facility] 60-74 MINUTES Keaton Tracy MD [address] [place] [address] Referral ID Status Reason Start Date Expiration Date Visits Requested Visits Authorized [id number] Authorized PCP Requested Referral 3 07/02/2024 1 1 Specialty Diagnoses / Procedures Referred By Contac t Referred To Contact Diagnoses ADHD (attention deficit hyperactivity disorder), inattentive type Debby Reeves MD [address] [place] [address] Referral ID Status Reason Start Date Expiration Date Visits Re quested Visits Authorized [id number] Closed 1 1 Specialty Diagnoses / Procedures Referred By Contac t Referred To Contact [facility] Diagnoses 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 (HCC) Procedures MRI ADRENAL WO/W IVCON MRI ABDOMEN W/O & W/CONTRAST MATERIAL Damaso Jang MD [address] [place] [address] [place] [address] Referral ID Status Reason Start Date Expiration Date Visits Requested Visits Authorized [id number] Pending Review Auto-Generat ed Referral 08/31/2023 09/29/2024 1 1 Referral ID Status Reason Start Date Expiration Date V isits Requested Visits Authorized [id number] Pending Review 1 1 Specialty Diagnoses / Procedures Referred By Contac t Referred To Contact [facility] Diagnoses Disorder of adrenal gland (HCC) Procedures MRI ADRENAL WO IVCON MRI, ABDOMEN (MRI) Damaso Jang MD [address] [place] [address] [place] [address] Referral ID Status Reason Start Date Expiration Date Visits Requested Visits Authorized [id number] Pending Review Auto-Generat ed Referral 09/13/2023 10/12/2024 1 1 Specialty Diagnoses / Procedures Referred By Contac t Referred To Contact Neurology Diagnoses Cramping of hands Facial paralysis Near syncope Procedures CONSULT TO NEUROLOGY OFFICE/OUTPATIENT [facility] 60 MINUTES Aliyah Carter APRN.EDUCATION ADMINISTRATOR [address] [place] [address] Referral ID Status Reason Start Date Expiration Date Visits Requested Visits Authorized [id number] Authorized PCP Requested Referral 09/21/2023 09/20/2024 1 1 Specialty Diagnoses / Procedures Referred By Contac t Referred To Contact Radiology Diagnoses Kidney stones Procedures XR abdomen 1 view Dev Narayan MD [address] [place] [address] Referral ID Status Reason Start Date Expiration Date Visits Requested Visits Authorized [id number] Authorized Perform Procedure 09/24/2023 09/23/2024 1 1 Specialty Diagnoses / Procedures Referred By Contac t Referred To Contact Endocrinology Diagnoses Cramping of hands Facial paralysis Near syncope Adrenal nodule (HCC) Procedures CONSULT TO ENDOCRINOLOGY OFFICE/OUTPATIENT [facility] 60 MINUTES Damaso Samuels Jr., MD [address] [address] Referral ID Status Reason Start Date Expiration Date Visits Requested Visits Authorized [id number] Authorized PCP Requested Referral 10/01/2023 09/30/2024 1 1 Specialty Diagnoses / Procedures Referred By Contac t Referred To Contact [facility] Diagnoses Cramping of hands Facial paralysis Near syncope Migraine with aura and without status migrainosus, not intractable Procedures EPIL EEG ROUTINE ELECTROENCEPHALOGRAM REC COMA/SLEEP ONLY Damaso Samuels Jr., MD [address] [address] [facility] [address] [place] [address] Referral ID Status Reason Start Date Expiration Date Visits Requested Visits Authorized [id number] Pending Review Auto-Generat ed Referral 10/01/2023 09/30/2024 1 1 Referral ID Status Reason Start Date Expiration Date V isits Requested Visits Authorized [id number] Closed Auto-Generate d Referral 09/21/2023 11/20/2023 1 1 Specialty Diagnoses / Procedures Referred By Contac t Referred To Contact [facility] Diagnoses Migraine with aura and without status migrainosus, not intractable FTND (full term normal delivery) Procedures MRV BRAIN WO/W IVCON MRA; HEAD W & WO CONTRAST Lashon Saba PA-C [address] [place] [address] [facility] [place] [address] Referral ID Status Reason Start Date Expiration Date V isits Requested Visits Authorized [id number] Closed Auto-Generate d Referral 09/24/2023 11/23/2023 1 1 Specialty Diagnoses / Procedures Referred By Contac t Referred To Contact [facility] Diagnoses Migraine with aura and without status migrainosus, not intractable Procedures MRI BRAIN WO/W IVCON MRI BRAIN BRAIN STEM W/O W/CONTRAST MATERIAL Lashon Saba PA-Jennifer [address] [place] [address] [facility] Referral ID Status Reason Start Date Expiration Date Visits Requested Visits Authorized [id number] Pending Review Auto-Generat ed Referral 10/09/2023 11/07/2024 1 1 Specialty Diagnoses / Procedures Referred By Contac t Referred To Contact Diagnoses ADHD (attention deficit hyperactivity disorder), inattentive type Keaton Tracy MD [address] [place] [address] Referral ID Status Reason Start Date Expiration Date V isits Requested Visits Authorized [id number] Pending Review 1 1 Referral ID Status Reason Start Date Expiration Date Visits Re quested Visits Authorized [id number] Closed 1 1 Specialty Diagnoses / Procedures Referred By Contac t Referred To Contact Cardiology Diagnoses Abnormal EKG Procedures CONSULT TO CARDIOLOGY OFFICE/OUTPATIENT NEW HIGH MDM 60 MINUTES Phyllis Serra PA-C [address] [place] [address] Referral ID Status Reason Start Date Expiration Date Visits Requested Visits Authorized [id number] Authorized PCP Requested Referral 03/27/2024 03/27/2025 1 1 Specialty Diagnoses / Procedures Referred By Contac t Referred To Contact [facility] Diagnoses Chronic midline low back pain without sciatica Procedures CONSULT TO [facility] OFFICE/OUTPATIENT NEW HIGH MDM 60 MINUTES Rylan Nicholas APRN.CNP [address] [place] [address] Referral ID Status Reason Start Date Expiration Date Visits Requested Visits Authorized [id number] Authorized PCP Requested Referral 04/01/2024 04/01/2025 1 1 Specialty Diagnoses / Procedures Referred By Contac t Referred To Contact Gynecology Diagnoses Screening for cervical cancer Procedures CONSULT TO GYNECOLOGY OFFICE/OUTPATIENT NEW HIGH MDM 60 MINUTES Keaton Tracy MD [address] [place] [address] Referral ID Status Reason Start Date Expiration Date Visits Requested Visits Authorized [id number] Authorized PCP Requested Referral Auto-Generate d Referral 05/16/2025 1 1 Specialty Diagnoses / Procedures Referred By Contac t Referred To Contact Pain Management Diagnoses Chronic midline low back pain without sciatica Degeneration of intervertebral disc of lumbar region with discogenic back pain Procedures CONSULT TO PAIN MGT OFFICE/OUTPATIENT NEW HIGH MDM 60 MINUTES Keaton Tracy MD [address] [place] [address] Referral ID Status Reason Start Date Expiration Date Visits Requested Visits Authorized [id number] Authorized PCP Requested Referral 05/16/2025 1 1 [...] section and content) DATE CREATED AUTHOR 06/01/2020 [facility] DATE CREATED AUTHOR AUTHOR'S ORGANIZ ATION 12/21/2020 [facility] DATE CREATED AUTHOR AUTHOR'S ORGANIZ ATION 06/24/2023 [facility] DATE CREATED AUTHOR AUTHOR'S ORGANIZ ATION 10/01/2023 [facility] DATE CREATED AUTHOR AUTHOR'S ORGANIZ ATION 03/10/2024 [facility] DATE CREATED AUTHOR AUTHOR'S ORGANIZ ATION 03/27/2024 [facility] ([place]) DATE CREATED AUTHOR AUTHOR'S ORGANIZ ATION 03/31/2024 [facility] DATE CREATED AUTHOR AUTHOR'S ORGANIZ ATION 04/15/2024 [facility] DATE CREATED AUTHOR AUTHOR'S ORGANIZ ATION 04/23/2024 [facility] DATE CREATED AUTHOR AUTHOR'S ORGANIZ ATION 08/21/2024 [facility] DATE CREATED AUTHOR AUTHOR'S ORGANIZ ATION 04/27/2025 [facility] DATE CREATED AUTHOR AUTHOR'S ORGANIZ ATION 04/27/2025 [facility] DATE CREATED AUTHOR AUTHOR'S ORGANIZ ATION 05/15/2025 [facility] DATE CREATED AUTHOR AUTHOR'S ORGANIZ ATION 05/15/2025 [facility] <item><item> Privacy Markings (unrecogniz ed section [...] or prosecute any alcohol or drug abuse patient.[facility] HealthIn the event this information is protected by the Federal Confidentiality of Alcohol and Drug Abuse Patient Records regulations: The Federal rules restrict any use of the information to criminally investigate or prosecute any alcohol or drug abuse patient.[facility] HealthIn the event this information is protected by the Federal Confidentiality of Alcohol and Drug Abuse Patient Records regulations: The Federal rules restrict any use of the information to criminally investigate or prosecute any alcohol or drug abuse patient.[facility] HealthIn the event this information is protected by the Federal Confidentiality of Alcohol and Drug Abuse Patient Records regulations: The Federal rules restrict any use of the information to criminally investigate or prosecute any alcohol or drug abuse patient.[facility] HealthIn the event this information is protected by the Federal Confidentiality of Alcohol and Drug Abuse Patient Records regulations: The Federal rules restrict any use of the information to criminally investigate or prosecute any alcohol or drug abuse patient.[facility] HealthIn the event this information is protected by the Federal Confidentiality of Alcohol and Drug Abuse Patient Records regulations: The Federal rules restrict any use of the information to criminally investigate or prosecute any alcohol or drug abuse patient.[facility] HealthIn the event this information is protected by the Federal Confidentiality of Alcohol and Drug Abuse Patient Records regulations: The Federal rules restrict any use of the information to criminally investigate or prosecute any alcohol or drug abuse patient.[facility] HealthIn the event this information is protected by the Federal Confidentiality of Alcohol and Drug Abuse Patient Records regulations: The Federal rules restrict any use of the information to criminally investigate or prosecute any alcohol or drug abuse patient.[facility] HealthIn the event this information is protected by the Federal Confidentiality of Alcohol and Drug Abuse Patient Records regulations: The Federal rules restrict any use of the information to criminally investigate or prosecute any alcohol or drug abuse patient.[facility] HealthIn the event this information is protected by the Federal Confidentiality of Alcohol and Drug Abuse Patient Records regulations: The Federal rules restrict any use of the information to criminally investigate or prosecute any alcohol or drug abuse patient.[facility] HealthIn the event this information is protected by the Federal Confidentiality of Alcohol and Drug Abuse Patient Records regulations: The Federal rules restrict any use of the information to criminally investigate or prosecute any alcohol or drug abuse patient.[facility] HealthIn the event this information is protected by the Federal Confidentiality of Alcohol and Drug Abuse Patient Records regulations: The Federal rules restrict any use of the information to criminally investigate or prosecute any alcohol or drug abuse patient.[facility] HealthIn the event this information is protected by the Federal Confidentiality of Alcohol and Drug Abuse Patient Records regulations: The Federal rules restrict any use of the information to criminally investigate or prosecute any alcohol or drug abuse patient.[facility] HealthIn the event this information is protected by the Federal Confidentiality of Alcohol and Drug Abuse Patient Records regulations: The Federal rules restrict any use of the information to criminally investigate or prosecute any alcohol or drug abuse patient.[facility] HealthIn the event this information is protected by the Federal Confidentiality of Alcohol and Drug Abuse Patient Records regulations: The Federal rules restrict any use of the information to criminally investigate or prosecute any alcohol or drug abuse patient.[facility] HealthIn the event this information is protected by the Federal Confidentiality of Alcohol and Drug Abuse Patient Records regulations: The Federal rules restrict any use of the information to criminally investigate or prosecute any alcohol or drug abuse patient.[facility] HealthIn the event this information is protected by the Federal Confidentiality of Alcohol and Drug Abuse Patient Records regulations: The Federal rules restrict any use of the information to criminally investigate or prosecute any alcohol or drug abuse patient.[facility] HealthIn the event this information is protected by the Federal Confidentiality of Alcohol and Drug Abuse Patient Records regulations: The Federal rules restrict any use of the information to criminally investigate or prosecute any alcohol or drug abuse patient.[facility] HealthIn the event this information is protected by the Federal Confidentiality of Alcohol and Drug Abuse Patient Records regulations: The Federal rules restrict any use of the information to criminally investigate or prosecute any alcohol or drug abuse patient.[facility] HealthIn the event this information is protected by the Federal Confidentiality of Alcohol and Drug Abuse Patient Records regulations: The Federal rules restrict any use of the information to criminally investigate or prosecute any alcohol or drug abuse patient.[facility] HealthIn the event this information is protected by the Federal Confidentiality of Alcohol and Drug Abuse Patient Records regulations: The Federal rules restrict any use of the information to criminally investigate or prosecute any alcohol or drug abuse patient.[facility] HealthIn the event this information is protected by the Federal Confidentiality of Alcohol and Drug Abuse Patient Records regulations: The Federal rules restrict any use of the information to criminally investigate or prosecute any alcohol or drug abuse patient.[facility] HealthIn the event this information is protected by the Federal Confidentiality of Alcohol and Drug Abuse Patient Records regulations: The Federal rules restrict any use of the information to criminally investigate or prosecute any alcohol or drug abuse patient.[facility] HealthIn the event this information is protected by the Federal Confidentiality of Alcohol and Drug Abuse Patient Records regulations: The Federal rules restrict any use of the information to criminally investigate or prosecute any alcohol or drug abuse patient.[facility] HealthIn the event this information is protected by the Federal Confidentiality of Alcohol and Drug Abuse Patient Records regulations: The Federal rules restrict any use of the information to criminally investigate or prosecute any alcohol or drug abuse patient.[facility] HealthIn the event this information is protected by the Federal Confidentiality of Alcohol and Drug Abuse Patient Records regulations: The Federal rules restrict any use of the information to criminally investigate or prosecute any alcohol or drug abuse patient.[facility] HealthIn the event this information is protected by the Federal Confidentiality of Alcohol and Drug Abuse Patient Records regulations: The Federal rules restrict any use of the information to criminally investigate or prosecute any alcohol or drug abuse patient.[facility] HealthIn the event this information is protected by the Federal Confidentiality of Alcohol and Drug Abuse Patient Records regulations: The Federal rules restrict any use of the information to criminally investigate or prosecute any alcohol or drug abuse patient.[facility] HealthIn the event this information is protected by the Federal Confidentiality of Alcohol and Drug Abuse Patient Records regulations: The Federal rules restrict any use of the information to criminally investigate or prosecute any alcohol or drug abuse patient.[facility] HealthIn the event this information is protected by the Federal Confidentiality of Alcohol and Drug Abuse Patient Records regulations: The Federal rules restrict any use of the information to criminally investigate or prosecute any alcohol or drug abuse patient.[facility] HealthIn the event this information is protected by the Federal Confidentiality of Alcohol and Drug Abuse Patient Records regulations: The Federal rules restrict any use of the information to criminally investigate or prosecute any alcohol or drug abuse patient.[facility] HealthIn the event this information is protected by the Federal Confidentiality of Alcohol and Drug Abuse Patient Records regulations: The Federal rules restrict any use of the information to criminally investigate or prosecute any alcohol or drug abuse patient.[facility] HealthIn the event this information is protected by the Federal Confidentiality of Alcohol and Drug Abuse Patient Records regulations: The Federal rules restrict any use of the information to criminally investigate or prosecute any alcohol or drug abuse patient.[facility] HealthIn the event this information is protected by the Federal Confidentiality of Alcohol and Drug Abuse Patient Records regulations: The Federal rules restrict any use of the information to criminally investigate or prosecute any alcohol or drug abuse patient.[facility] HealthIn the event this information is protected by the Federal Confidentiality of Alcohol and Drug Abuse Patient Records regulations: The Federal rules restrict any use of the information to criminally investigate or prosecute any alcohol or drug abuse patient.[facility] HealthIn the event this information is protected by the Federal Confidentiality of Alcohol and Drug Abuse Patient Records regulations: The Federal rules restrict any use of the information to criminally investigate or prosecute any alcohol or drug abuse patient.[facility] HealthIn the event this information is protected by the Federal Confidentiality of Alcohol and Drug Abuse Patient Records regulations: The Federal rules restrict any use of the information to criminally investigate or prosecute any alcohol or drug abuse patient.[facility] HealthIn the event this information is protected by the Federal Confidentiality of Alcohol and Drug Abuse Patient Records regulations: The Federal rules restrict any use of the information to criminally investigate or prosecute any alcohol or drug abuse patient.[facility] HealthIn the event this information is protected by the Federal Confidentiality of Alcohol and Drug Abuse Patient Records regulations: The Federal rules restrict any use of the information to criminally investigate or prosecute any alcohol or drug abuse patient.[facility] HealthIn the event this information is protected by the Federal Confidentiality of Alcohol and Drug Abuse Patient Records regulations: The Federal rules restrict any use of the information to criminally investigate or prosecute any alcohol or drug abuse patient.[facility] HealthIn the event this information is protected by the Federal Confidentiality of Alcohol and Drug Abuse Patient Records regulations: The Federal rules restrict any use of the information to criminally investigate or prosecute any alcohol or drug abuse patient.[facility] HealthIn the event this information is protected by the Federal Confidentiality of Alcohol and Drug Abuse Patient Records regulations: The Federal rules restrict any use of the information to criminally investigate or prosecute any alcohol or drug abuse patient.[facility] HealthIn the event this information is protected by the Federal Confidentiality of Alcohol and Drug Abuse Patient Records regulations: The Federal rules restrict any use of the information to criminally investigate or prosecute any alcohol or drug abuse patient.[facility] HealthIn the event this information is protected by the Federal Confidentiality of Alcohol and Drug Abuse Patient Records regulations: The Federal rules restrict any use of the information to criminally investigate or prosecute any alcohol or drug abuse patient.[facility] HealthIn the event this information is protected by the Federal Confidentiality of Alcohol and Drug Abuse Patient Records regulations: The Federal rules restrict any use of the information to criminally investigate or prosecute any alcohol or drug abuse patient.[facility] HealthIn the event this information is protected by the Federal Confidentiality of Alcohol and Drug Abuse Patient Records regulations: The Federal rules restrict any use of the information to criminally investigate or prosecute any alcohol or drug abuse patient.[facility] HealthIn the event this information is protected by the Federal Confidentiality of Alcohol and Drug Abuse Patient Records regulations: The Federal rules restrict any use of the information to criminally investigate or prosecute any alcohol or drug abuse patient.[facility] HealthIn the event this information is protected by the Federal Confidentiality of Alcohol and Drug Abuse Patient Records regulations: The Federal rules restrict any use of the information to criminally investigate or prosecute any alcohol or drug abuse patient.[facility] HealthIn the event this information is protected by the Federal Confidentiality of Alcohol and Drug Abuse Patient Records regulations: The Federal rules restrict any use of the information to criminally investigate or prosecute any alcohol or drug abuse patient.[facility] HealthIn the event this information is protected by the Federal Confidentiality of Alcohol and Drug Abuse Patient Records regulations: The Federal rules restrict any use of the information to criminally investigate or prosecute any alcohol or drug abuse patient.[facility] HealthIn the event this information is protected by the Federal Confidentiality of Alcohol and Drug Abuse Patient Records regulations: The Federal rules restrict any use of the information to criminally investigate or prosecute any alcohol or drug abuse patient.[facility] HealthIn the event this information is protected by the Federal Confidentiality of Alcohol and Drug Abuse Patient Records regulations: The Federal rules restrict any use of the information to criminally investigate or prosecute any alcohol or drug abuse patient.[facility] HealthIn the event this information is protected by the Federal Confidentiality of Alcohol and Drug Abuse Patient Records regulations: The Federal rules restrict any use of the information to criminally investigate or prosecute any alcohol or drug abuse patient.[facility] HealthIn the event this information is protected by the Federal Confidentiality of Alcohol and Drug Abuse Patient Records regulations: The Federal rules restrict any use of the information to criminally investigate or prosecute any alcohol or drug abuse patient.[facility] HealthIn the event this information is protected by the Federal Confidentiality of Alcohol and Drug Abuse Patient Records regulations: The Federal rules restrict any use of the information to criminally investigate or prosecute any alcohol or drug abuse patient.[facility] HealthIn the event this information is protected by the Federal Confidentiality of Alcohol and Drug Abuse Patient Records regulations: The Federal rules restrict any use of the information to criminally investigate or prosecute any alcohol or drug abuse patient.[facility] HealthIn the event this information is protected by the Federal Confidentiality of Alcohol and Drug Abuse Patient Records regulations: The Federal rules restrict any use of the information to criminally investigate or prosecute any alcohol or drug abuse patient.[facility] HealthIn the event this information is protected by the Federal Confidentiality of Alcohol and Drug Abuse Patient Records regulations: The Federal rules restrict any use of the information to criminally investigate or prosecute any alcohol or drug abuse patient.[facility] HealthIn the event this information is protected by the Federal Confidentiality of Alcohol and Drug Abuse Patient Records regulations: The Federal rules restrict any use of the information to criminally investigate or prosecute any alcohol or drug abuse patient.[facility] HealthIn the event this information is protected by the Federal Confidentiality of Alcohol and Drug Abuse Patient Records regulations: The Federal rules restrict any use of the information to criminally investigate or prosecute any alcohol or drug abuse patient.[facility] HealthIn the event this information is protected by the Federal Confidentiality of Alcohol and Drug Abuse Patient Records regulations: The Federal rules restrict any use of the information to criminally investigate or prosecute any alcohol or drug abuse patient.[facility] HealthIn the event this information is protected by the Federal Confidentiality of Alcohol and Drug Abuse Patient Records regulations: The Federal rules restrict any use of the information to criminally investigate or prosecute any alcohol or drug abuse patient.[facility] HealthIn the event this information is protected by the Federal Confidentiality of Alcohol and Drug Abuse Patient Records regulations: The Federal rules restrict any use of the information to criminally investigate or prosecute any alcohol or drug abuse patient.[facility] HealthIn the event this information is protected by the Federal Confidentiality of Alcohol and Drug Abuse Patient Records regulations: The Federal rules restrict any use of the information to criminally investigate or prosecute any alcohol or drug abuse patient.[facility] HealthIn the event this information is protected by the Federal Confidentiality of Alcohol and Drug Abuse Patient Records regulations: The Federal rules restrict any use of the information to criminally investigate or prosecute any alcohol or drug abuse patient.[facility] HealthIn the event this information is protected by the Federal Confidentiality of Alcohol and Drug Abuse Patient Records regulations: The Federal rules restrict any use of the information to criminally investigate or prosecute any alcohol or drug abuse patient.[facility] HealthIn the event this information is protected by the Federal Confidentiality of Alcohol and Drug Abuse Patient Records regulations: The Federal rules restrict any use of the information to criminally investigate or prosecute any alcohol or drug abuse patient.[facility] HealthIn the event this information is protected by the Federal Confidentiality of Alcohol and Drug Abuse Patient Records regulations: The Federal rules restrict any use of the information to criminally investigate or prosecute any alcohol or drug abuse patient.[facility] HealthIn the event this information is protected by the Federal Confidentiality of Alcohol and Drug Abuse Patient Records regulations: The Federal rules restrict any use of the information to criminally investigate or prosecute any alcohol or drug abuse patient.[facility] HealthIn the event this information is protected by the Federal Confidentiality of Alcohol and Drug Abuse Patient Records regulations: The Federal rules restrict any use of the information to criminally investigate or prosecute any alcohol or drug abuse patient.[facility] HealthIn the event this information is protected by the Federal Confidentiality of Alcohol and Drug Abuse Patient Records regulations: The Federal rules restrict any use of the information to criminally investigate or prosecute any alcohol or drug abuse patient.[facility] HealthIn the event this information is protected by the Federal Confidentiality of Alcohol and Drug Abuse Patient Records regulations: The Federal rules restrict any use of the information to criminally investigate or prosecute any alcohol or drug abuse patient.[facility] HealthIn the event this information is protected by the Federal Confidentiality of Alcohol and Drug Abuse Patient Records regulations: The Federal rules restrict any use of the information to criminally investigate or prosecute any alcohol or drug abuse patient.[facility] HealthIn the event this information is protected by the Federal Confidentiality of Alcohol and Drug Abuse Patient Records regulations: The Federal rules restrict any use of the information to criminally investigate or prosecute any alcohol or drug abuse patient.[facility] HealthIn the event this information is protected by the Federal Confidentiality of Alcohol and Drug Abuse Patient Records regulations: The Federal rules restrict any use of the information to criminally investigate or prosecute any alcohol or drug abuse patient.[facility] HealthIn the event this information is protected by the Federal Confidentiality of Alcohol and Drug Abuse Patient Records regulations: The Federal rules restrict any use of the information to criminally investigate or prosecute any alcohol or drug abuse patient.[facility] HealthIn the event this information is protected by the Federal Confidentiality of Alcohol and Drug Abuse Patient Records regulations: The Federal rules restrict any use of the information to criminally investigate or prosecute any alcohol or drug abuse patient.[facility] HealthIn the event this information is protected by the Federal Confidentiality of Alcohol and Drug Abuse Patient Records regulations: The Federal rules restrict any use of the information to criminally investigate or prosecute any alcohol or drug abuse patient.[facility] HealthIn the event this information is protected by the Federal Confidentiality of Alcohol and Drug Abuse Patient Records regulations: The Federal rules restrict any use of the information to criminally investigate or prosecute any alcohol or drug abuse patient.[facility] HealthIn the event this information is protected by the Federal Confidentiality of Alcohol and Drug Abuse Patient Records regulations: The Federal rules restrict any use of the information to criminally investigate or prosecute any alcohol or drug abuse patient.[facility] HealthIn the event this information is protected by the Federal Confidentiality of Alcohol and Drug Abuse Patient Records regulations: The Federal rules restrict any use of the information to criminally investigate or prosecute any alcohol or drug abuse patient.[facility] HealthIn the event this information is protected by the Federal Confidentiality of Alcohol and Drug Abuse Patient Records regulations: The Federal rules restrict any use of the information to criminally investigate or prosecute any alcohol or drug abuse patient.[facility] HealthIn the event this information is protected by the Federal Confidentiality of Alcohol and Drug Abuse Patient Records regulations: The Federal rules restrict any use of the information to criminally investigate or prosecute any alcohol or drug abuse patient.[facility] HealthIn the event this information is protected by the Federal Confidentiality of Alcohol and Drug Abuse Patient Records regulations: The Federal rules restrict any use of the information to criminally investigate or prosecute any alcohol or drug abuse patient.[facility] HealthIn the event this information is protected by the Federal Confidentiality of Alcohol and Drug Abuse Patient Records regulations: The Federal rules restrict any use of the information to criminally investigate or prosecute any alcohol or drug abuse patient.[facility] HealthIn the event this information is protected by the Federal Confidentiality of Alcohol and Drug Abuse Patient Records regulations: The Federal rules restrict any use of the information to criminally investigate or prosecute any alcohol or drug abuse patient.[facility] HealthIn the event this information is protected by the Federal Confidentiality of Alcohol and Drug Abuse Patient Records regulations: The Federal rules restrict any use of the information to criminally investigate or prosecute any alcohol or drug abuse patient.[facility] HealthIn the event this information is protected by the Federal Confidentiality of Alcohol and Drug Abuse Patient Records regulations: The Federal rules restrict any use of the information to criminally investigate or prosecute any alcohol or drug abuse patient.[facility] HealthIn the event this information is protected by the Federal Confidentiality of Alcohol and Drug Abuse Patient Records regulations: The Federal rules restrict any use of the information to criminally investigate or prosecute any alcohol or drug abuse patient.[facility] HealthIn the event this information is protected by the Federal Confidentiality of Alcohol and Drug Abuse Patient Records regulations: The Federal rules restrict any use of the information to criminally investigate or prosecute any alcohol or drug abuse patient.[facility] HealthIn the event this information is protected by the Federal Confidentiality of Alcohol and Drug Abuse Patient Records regulations: The Federal rules restrict any use of the information to criminally investigate or prosecute any alcohol or drug abuse patient.[facility] HealthIn the event this information is protected by the Federal Confidentiality of Alcohol and Drug Abuse Patient Records regulations: The Federal rules restrict any use of the information to criminally investigate or prosecute any alcohol or drug abuse patient.[facility] HealthIn the event this information is protected by the Federal Confidentiality of Alcohol and Drug Abuse Patient Records regulations: The Federal rules restrict any use of the information to criminally investigate or prosecute any alcohol or drug abuse patient.[facility] HealthIn the event this information is protected by the Federal Confidentiality of Alcohol and Drug Abuse Patient Records regulations: The Federal rules restrict any use of the information to criminally investigate or prosecute any alcohol or drug abuse patient.[facility] HealthIn the event this information is protected by the Federal Confidentiality of Alcohol and Drug Abuse Patient Records regulations: The Federal rules restrict any use of the information to criminally investigate or prosecute any alcohol or drug abuse patient.[facility] HealthIn the event this information is protected by the Federal Confidentiality of Alcohol and Drug Abuse Patient Records regulations: The Federal rules restrict any use of the information to criminally investigate or prosecute any alcohol or drug abuse patient.[facility] HealthIn the event this information is protected by the Federal Confidentiality of Alcohol and Drug Abuse Patient Records regulations: The Federal rules restrict any use of the information to criminally investigate or prosecute any alcohol or drug abuse patient.[facility] HealthIn the event this information is protected by the Federal Confidentiality of Alcohol and Drug Abuse Patient Records regulations: The Federal rules restrict any use of the information to criminally investigate or prosecute any alcohol or drug abuse patient.[facility] HealthIn the event this information is protected by the Federal Confidentiality of Alcohol and Drug Abuse Patient Records regulations: The Federal rules restrict any use of the information to criminally investigate or prosecute any alcohol or drug abuse patient.[facility] HealthIn the event this information is protected by the Federal Confidentiality of Alcohol and Drug Abuse Patient Records regulations: The Federal rules restrict any use of the information to criminally investigate or prosecute any alcohol or drug abuse patient.[facility] HealthIn the event this information is protected by the Federal Confidentiality of Alcohol and Drug Abuse Patient Records regulations: The Federal rules restrict any use of the information to criminally investigate or prosecute any alcohol or drug abuse patient.[facility] HealthIn the event this information is protected by the Federal Confidentiality of Alcohol and Drug Abuse Patient Records regulations: The Federal rules restrict any use of the information to criminally investigate or prosecute any alcohol or drug abuse patient.[facility] HealthIn the event this information is protected by the Federal Confidentiality of Alcohol and Drug Abuse Patient Records regulations: The Federal rules restrict any use of the information to criminally investigate or prosecute any alcohol or drug abuse patient.[facility] HealthIn the event this information is protected by the Federal Confidentiality of Alcohol and Drug Abuse Patient Records regulations: The Federal rules restrict any use of the information to criminally investigate or prosecute any alcohol or drug abuse patient.[facility] HealthIn the event this information is protected by the Federal Confidentiality of Alcohol and Drug Abuse Patient Records regulations: The Federal rules restrict any use of the information to criminally investigate or prosecute any alcohol or drug abuse patient.[facility] HealthIn the event this information is protected by the Federal Confidentiality of Alcohol and Drug Abuse Patient Records regulations: The Federal rules restrict any use of the information to criminally investigate or prosecute any alcohol or drug abuse patient.[facility] HealthIn the event this information is protected by the Federal Confidentiality of Alcohol and Drug Abuse Patient Records regulations: The Federal rules restrict any use of the information to criminally investigate or prosecute any alcohol or drug abuse patient.[facility] HealthIn the event this information is protected by the Federal Confidentiality of Alcohol and Drug Abuse Patient Records regulations: The Federal rules restrict any use of the information to criminally investigate or prosecute any alcohol or drug abuse patient.[facility] HealthIn the event this information is protected by the Federal Confidentiality of Alcohol and Drug Abuse Patient Records regulations: The Federal rules restrict any use of the information to criminally investigate or prosecute any alcohol or drug abuse patient.[facility] HealthIn the event this information is protected by the Federal Confidentiality of Alcohol and Drug Abuse Patient Records regulations: The Federal rules restrict any use of the information to criminally investigate or prosecute any alcohol or drug abuse patient.[facility] HealthIn the event this information is protected by the Federal Confidentiality of Alcohol and Drug Abuse Patient Records regulations: The Federal rules restrict any use of the information to criminally investigate or prosecute any alcohol or drug abuse patient.[facility] HealthIn the event this information is protected by the Federal Confidentiality of Alcohol and Drug Abuse Patient Records regulations: The Federal rules restrict any use of the information to criminally investigate or prosecute any alcohol or drug abuse patient.[facility] HealthIn the event this information is protected by the Federal Confidentiality of Alcohol and Drug Abuse Patient Records regulations: The Federal rules restrict any use of the information to criminally investigate or prosecute any alcohol or drug abuse patient.[facility] HealthIn the event this information is protected by the Federal Confidentiality of Alcohol and Drug Abuse Patient Records regulations: The Federal rules restrict any use of the information to criminally investigate or prosecute any alcohol or drug abuse patient.[facility] HealthIn the event this information is protected by the Federal Confidentiality of Alcohol and Drug Abuse Patient Records regulations: The Federal rules restrict any use of the information to criminally investigate or prosecute any alcohol or drug abuse patient.[facility] HealthIn the event this information is protected by the Federal Confidentiality of Alcohol and Drug Abuse Patient Records regulations: The Federal rules restrict any use of the information to criminally investigate or prosecute any alcohol or drug abuse patient.[facility] HealthIn the event this information is protected by the Federal Confidentiality of Alcohol and Drug Abuse Patient Records regulations: The Federal rules restrict any use of the information to criminally investigate or prosecute any alcohol or drug abuse patient.[facility] HealthIn the event this information is protected by the Federal Confidentiality of Alcohol and Drug Abuse Patient Records regulations: The Federal rules restrict any use of the information to criminally investigate or prosecute any alcohol or drug abuse patient.[facility] HealthIn the event this information is protected by the Federal Confidentiality of Alcohol and Drug Abuse Patient Records regulations: The Federal rules restrict any use of the information to criminally investigate or prosecute any alcohol or drug abuse patient.[facility] HealthIn the event this information is protected by the Federal Confidentiality of Alcohol and Drug Abuse Patient Records regulations: The Federal rules restrict any use of the information to criminally investigate or prosecute any alcohol or drug abuse patient.[facility] HealthIn the event this information is protected by the Federal Confidentiality of Alcohol and Drug Abuse Patient Records regulations: The Federal rules restrict any use of the information to criminally investigate or prosecute any alcohol or drug abuse patient.[facility] HealthIn the event this information is protected by the Federal Confidentiality of Alcohol and Drug Abuse Patient Records regulations: The Federal rules restrict any use of the information to criminally investigate or prosecute any alcohol or drug abuse patient.[facility] HealthIn the event this information is protected by the Federal Confidentiality of Alcohol and Drug Abuse Patient Records regulations: The Federal rules restrict any use of the information to criminally investigate or prosecute any alcohol or drug abuse patient.[facility] HealthIn the event this information is protected by the Federal Confidentiality of Alcohol and Drug Abuse Patient Records regulations: The Federal rules restrict any use of the information to criminally investigate or prosecute any alcohol or drug abuse patient.[facility] HealthIn the event this information is protected by the Federal Confidentiality of Alcohol and Drug Abuse Patient Records regulations: The Federal rules restrict any use of the information to criminally investigate or prosecute any alcohol or drug abuse patient.[facility] HealthIn the event this information is protected by the Federal Confidentiality of Alcohol and Drug Abuse Patient Records regulations: The Federal rules restrict any use of the information to criminally investigate or prosecute any alcohol or drug abuse patient.[facility] HealthIn the event this information is protected by the Federal Confidentiality of Alcohol and Drug Abuse Patient Records regulations: The Federal rules restrict any use of the information to criminally investigate or prosecute any alcohol or drug abuse patient.[facility] HealthIn the event this information is protected by the Federal Confidentiality of Alcohol and Drug Abuse Patient Records regulations: The Federal rules restrict any use of the information to criminally investigate or prosecute any alcohol or drug abuse patient.[facility] HealthIn the event this information is protected by the Federal Confidentiality of Alcohol and Drug Abuse Patient Records regulations: The Federal rules restrict any use of the information to criminally investigate or prosecute any alcohol or drug abuse patient.[facility] HealthIn the event this information is protected by the Federal Confidentiality of Alcohol and Drug Abuse Patient Records regulations: The Federal rules restrict any use of the information to criminally investigate or prosecute any alcohol or drug abuse patient.[facility] HealthIn the event this information is protected by the Federal Confidentiality of Alcohol and Drug Abuse Patient Records regulations: The Federal rules restrict any use of the information to criminally investigate or prosecute any alcohol or drug abuse patient.[facility] HealthIn the event this information is protected by the Federal Confidentiality of Alcohol and Drug Abuse Patient Records regulations: The Federal rules restrict any use of the information to criminally investigate or prosecute any alcohol or drug abuse patient.[facility] HealthIn the event this information is protected by the Federal Confidentiality of Alcohol and Drug Abuse Patient Records regulations: The Federal rules restrict any use of the information to criminally investigate or prosecute any alcohol or drug abuse patient.[facility] HealthIn the event this information is protected by the Federal Confidentiality of Alcohol and Drug Abuse Patient Records regulations: The Federal rules restrict any use of the information to criminally investigate or prosecute any alcohol or drug abuse patient.[facility] HealthIn the event this information is protected by the Federal Confidentiality of Alcohol and Drug Abuse Patient Records regulations: The Federal rules restrict any use of the information to criminally investigate or prosecute any alcohol or drug abuse patient.[facility] HealthIn the event this information is protected by the Federal Confidentiality of Alcohol and Drug Abuse Patient Records regulations: The Federal rules restrict any use of the information to criminally investigate or prosecute any alcohol or drug abuse patient.[facility] HealthIn the event this information is protected by the Federal Confidentiality of Alcohol and Drug Abuse Patient Records regulations: The Federal rules restrict any use of the information to criminally investigate or prosecute any alcohol or drug abuse patient.[facility] HealthIn the event this information is protected by the Federal Confidentiality of Alcohol and Drug Abuse Patient Records regulations: The Federal rules restrict any use of the information to criminally investigate or prosecute any alcohol or drug abuse patient.[facility] HealthIn the event this information is protected by the Federal Confidentiality of Alcohol and Drug Abuse Patient Records regulations: The Federal rules restrict any use of the information to criminally investigate or prosecute any alcohol or drug abuse patient.[facility] HealthIn the event this information is protected by the Federal Confidentiality of Alcohol and Drug Abuse Patient Records regulations: The Federal rules restrict any use of the information to criminally investigate or prosecute any alcohol or drug abuse patient.[facility] HealthIn the event this information is protected by the Federal Confidentiality of Alcohol and Drug Abuse Patient Records regulations: The Federal rules restrict any use of the information to criminally investigate or prosecute any alcohol or drug abuse patient.[facility] HealthIn the event this information is protected by the Federal Confidentiality of Alcohol and Drug Abuse Patient Records regulations: The Federal rules restrict any use of the information to criminally investigate or prosecute any alcohol or drug abuse patient.[facility] HealthIn the event this information is protected by the Federal Confidentiality of Alcohol and Drug Abuse Patient Records regulations: The Federal rules restrict any use of the information to criminally investigate or prosecute any alcohol or drug abuse patient.[facility] HealthIn the event this information is protected by the Federal Confidentiality of Alcohol and Drug Abuse Patient Records regulations: The Federal rules restrict any use of the information to criminally investigate or prosecute any alcohol or drug abuse patient.[facility] HealthIn the event this information is protected by the Federal Confidentiality of Alcohol and Drug Abuse Patient Records regulations: The Federal rules restrict any use of the information to criminally investigate or prosecute any alcohol or drug abuse patient.[facility] HealthIn the event this information is protected by the Federal Confidentiality of Alcohol and Drug Abuse Patient Records regulations: The Federal rules restrict any use of the information to criminally investigate or prosecute any alcohol or drug abuse patient.[facility] HealthIn the event this information is protected by the Federal Confidentiality of Alcohol and Drug Abuse Patient Records regulations: The Federal rules restrict any use of the information to criminally investigate or prosecute any alcohol or drug abuse patient.[facility] HealthIn the event this information is protected by the Federal Confidentiality of Alcohol and Drug Abuse Patient Records regulations: The Federal rules restrict any use of the information to criminally investigate or prosecute any alcohol or drug abuse patient.[facility] HealthIn the event this information is protected by the Federal Confidentiality of Alcohol and Drug Abuse Patient Records regulations: The Federal rules restrict any use of the information to criminally investigate or prosecute any alcohol or drug abuse patient.[facility] HealthIn the event this information is protected by the Federal Confidentiality of Alcohol and Drug Abuse Patient Records regulations: The Federal rules restrict any use of the information to criminally investigate or prosecute any alcohol or drug abuse patient.[facility] HealthIn the event this information is protected by the Federal Confidentiality of Alcohol and Drug Abuse Patient Records regulations: The Federal rules restrict any use of the information to criminally investigate or prosecute any alcohol or drug abuse patient.[facility] HealthIn the event this information is protected by the Federal Confidentiality of Alcohol and Drug Abuse Patient Records regulations: The Federal rules restrict any use of the information to criminally investigate or prosecute any alcohol or drug abuse patient.[facility] HealthIn the event this information is protected by the Federal Confidentiality of Alcohol and Drug Abuse Patient Records regulations: The Federal rules restrict any use of the information to criminally investigate or prosecute any alcohol or drug abuse patient.[facility] HealthIn the event this information is protected by the Federal Confidentiality of Alcohol and Drug Abuse Patient Records regulations: The Federal rules restrict any use of the information to criminally investigate or prosecute any alcohol or drug abuse patient.[facility] HealthIn the event this information is protected by the Federal Confidentiality of Alcohol and Drug Abuse Patient Records regulations: The Federal rules restrict any use of the information to criminally investigate or prosecute any alcohol or drug abuse patient.[facility] HealthIn the event this information is protected by the Federal Confidentiality of Alcohol and Drug Abuse Patient Records regulations: The Federal rules restrict any use of the information to criminally investigate or prosecute any alcohol or drug abuse patient.[facility] HealthIn the event this information is protected by the Federal Confidentiality of Alcohol and Drug Abuse Patient Records regulations: The Federal rules restrict any use of the information to criminally investigate or prosecute any alcohol or drug abuse patient.[facility] HealthIn the event this information is protected by the Federal Confidentiality of Alcohol and Drug Abuse Patient Records regulations: The Federal rules restrict any use of the information to criminally investigate or prosecute any alcohol or drug abuse patient.[facility] HealthIn the event this information is protected by the Federal Confidentiality of Alcohol and Drug Abuse Patient Records regulations: The Federal rules restrict any use of the information to criminally investigate or prosecute any alcohol or drug abuse patient.[facility] HealthIn the event this information is protected by the Federal Confidentiality of Alcohol and Drug Abuse Patient Records regulations: The Federal rules restrict any use of the information to criminally investigate or prosecute any alcohol or drug abuse patient.[facility] HealthIn the event this information is protected by the Federal Confidentiality of Alcohol and Drug Abuse Patient Records regulations: The Federal rules restrict any use of the information to criminally investigate or prosecute any alcohol or drug abuse patient.[facility] HealthIn the event this information is protected by the Federal Confidentiality of Alcohol and Drug Abuse Patient Records regulations: The Federal rules restrict any use of the information to criminally investigate or prosecute any alcohol or drug abuse patient.[facility] HealthIn the event this information is protected by the Federal Confidentiality of Alcohol and Drug Abuse Patient Records regulations: The Federal rules restrict any use of the information to criminally investigate or prosecute any alcohol or drug abuse patient.[facility] HealthIn the event this information is protected by the Federal Confidentiality of Alcohol and Drug Abuse Patient Records regulations: The Federal rules restrict any use of the information to criminally investigate or prosecute any alcohol or drug abuse patient.[facility] HealthIn the event this information is protected by the Federal Confidentiality of Alcohol and Drug Abuse Patient Records regulations: The Federal rules restrict any use of the information to criminally investigate or prosecute any alcohol or drug abuse patient.[facility] HealthIn the event this information is protected by the Federal Confidentiality of Alcohol and Drug Abuse Patient Records regulations: The Federal rules restrict any use of the information to criminally investigate or prosecute any alcohol or drug abuse patient.[facility] HealthIn the event this information is protected by the Federal Confidentiality of Alcohol and Drug Abuse Patient Records regulations: The Federal rules restrict any use of the information to criminally investigate or prosecute any alcohol or drug abuse patient.[facility] HealthIn the event this information is protected by the Federal Confidentiality of Alcohol and Drug Abuse Patient Records regulations: The Federal rules restrict any use of the information to criminally investigate or prosecute any alcohol or drug abuse patient.[facility] HealthIn the event this information is protected by the Federal Confidentiality of Alcohol and Drug Abuse Patient Records regulations: The Federal rules restrict any use of the information to criminally investigate or prosecute any alcohol or drug abuse patient.[facility] HealthIn the event this information is protected by the Federal Confidentiality of Alcohol and Drug Abuse Patient Records regulations: The Federal rules restrict any use of the information to criminally investigate or prosecute any alcohol or drug abuse patient.[facility] HealthIn the event this information is protected by the Federal Confidentiality of Alcohol and Drug Abuse Patient Records regulations: The Federal rules restrict any use of the information to criminally investigate or prosecute any alcohol or drug abuse patient.[facility] HealthIn the event this information is protected by the Federal Confidentiality of Alcohol and Drug Abuse Patient Records regulations: The Federal rules restrict any use of the information to criminally investigate or prosecute any alcohol or drug abuse patient.[facility] Reason for Visit (unrecogniz ed section and [...] Referred By Dave t Referred To Contact [facility] Diagnoses Encounter for gynecological examination (general) (routine) without abnormal findings Procedures REMOVE INTRAUTERINE DEVICE REMOVE INTRAUTERINE DEVICE LEVONORGESTREL IU 52MG 5 YR REMOVE INTRAUTERINE DEVICE WELLNESS EXAMS EST 18-39 YRS Sulma Bartholomew APRN.JULISSA [address] [place] [address] [facility] [address] [place] [address] Referral ID Status Reason Start Date Expiration Date V isits Requested Visits Authorized [id number] Authorized 07/23/2021 07/22/2022 2 2 Reason Comments Results Reason Comments Patient Question Reason Comments Medication Request Reason Comments Abnormal Pap Reason Comments Establish Care Transferring care jairo R[place]- patient reports she just found out she is Reason Comments behavioral health social work Reason Comments Referral Information Reason Comments Early OB Bleeding Reason Comments ED Follow-up Reason Comments Care Reason Comments Medication Question Reason Onset Date Comments Care 05/23/2022 Reason Comments Follow Up Headaches almost con tinuous x 1 month Reason Comments US Specialty Diagnoses / Procedures Referred By Contac t Referred To Contact [facility] Diagnoses 8 weeks gestation of Procedures NUCHAL TRANSLUCENCY WHI US NUCHAL TRANSLUCENCY 1ST GESTATION Sulma Bartholomew APRN.CNM [address] [place] [address] [id number] Referral ID Status Reason Start Date Expiration Date V isits Requested Visits Authorized [id number] Closed Auto-Generate d Referral 04/25/2022 04/25/2023 1 1 Reason Comments NIPT results Reason Comments Headache Reason Comments Future Appointment Reason Comments Information Reason Comments Cough Congestion, vomiting , LORNA ear pain, weakness, drainage x9 days Reason Onset Date Comments Refill Request 07/05/2022 Reason Onset Date Comments Care 07/06/2022 Reason Comments Patient Update Specialty Diagnoses / Procedures Referred By Contac t Referred To Contact [facility] Diagnoses 8 weeks gestation of Procedures OBSTETRIC ULTRASOUND WHI US PREG UTERUS AFTER 1ST TRIMEST GESTATION Sulma Bartholomew APRN.CNCorie [address] [place] [address] [id number] [place] [address] Referral ID Status Reason Start Date Expiration Date V isits Requested Visits Authorized [id number] Closed Auto-Generate d Referral 04/25/2022 04/25/2023 1 [...] 11/02/2022 Specialty Diagnoses / Procedures Referred By Dave rocha Referred To Contact [facility] Diagnoses 34 weeks gestation of Limited care in third trimester Supervision of other high risk pregnancies, third trimester Size of fetus inconsistent with dates in third trimester Procedures OBSTETRIC ULTRASOUND WHI US PREG UTERUS AFTER 1ST TRIMEST GESTATION Carmelita Millan MD [address] [place] [address] [facility] [address] [place] [address] Referral ID Status Reason Start Date Expiration Date V isits Requested Visits Authorized [id number] Closed Auto-Generate d Referral 10/18/2022 10/18/2023 1 1 Reason Comments Cough Chest congestion, SO B, CISNEROS x2 days Reason Onset Date Comments Results 11/08/2022 Reason Comments Orders Reason Comments Gestational / Rn Visit Diabetes Reason Onset Date Comments Care 11/15/2022 Reason Comments Assessment Patient Education Specialty Diagnoses / Procedures Referred By Dave rocha Referred To Contact Nutrition Diagnoses Diet controlled gestational diabetes mellitus (GDM), antepartum Procedures CONSULT TO NUTRITION THERAPY MEDICAL NUTRITION ASSMT&IVNTJ INDIV EACH 15 SC MEDICAL NUTRITION ASSMT&IVNTJ INDIV EACH 15 SC MEDICAL NUTRITION ASSMT&IVNTJ INDIV EACH 15 SC MEDICAL NUTRITION ASSMT&IVNTJ INDIV EACH 15 SC Sulma Bartholomew APRN.[facility] [address] [place] [address] Referral ID Status Reason Start Date Expiration Date V isits Requested Visits Authorized [id number] Closed PCP Requested Referral 11/08/2022 11/08/2023 1 1 Reason Comments Ob Delivery Note Reason Comments Colposcopy Reason Comments Patient Question Reason Comments Unprotected Kelford Reason Comments Contraception Reason Comments ADD/ADHD Reason [...] intractable Procedures CONSULT TO HEADACHE CLINIC OFFICE/OUTPATIENT NEW HIGH MDM 60-74 MINUTES Sulma Bartholomew APRN.JULISSA [address] [place] [address] Referral ID Status Reason Start Date Expiration Date V isits Requested Visits Authorized [id number] Closed PCP Requested Referral 07/06/2022 07/06/2023 1 1 Reason Comments Missed Appointment Reason Comments Post-Op Visit Reason Comments ER F/U Reason Comments ED Follow-up Reason Comments Establish Care General health juan rns, bad back, kidney stones, discuss medication she is not taking Reason Comments Consult Patient Outreach [facility] Reason Onset Date Comments Refill Request [...] Follow Up In office needed to continue Dr. Demarcus dunlap patient Reason Comments Nephrolithiasis Specialty Diagnoses / Procedures Referred By Contac t Referred To Contact Radiology Diagnoses Kidney stones Procedures XR abdomen 1 view Dev Narayan MD [address] [place] [address] Referral ID Status Reason Start Date Expiration Date Visits Requested Visits Authorized [id number] Authorized Perform Procedure 09/24/2023 09/23/2024 1 1 Reason Comments FMLA Paperwork Reason Comments KUB RESULTS Reason Comments New Patient Pt reported intermit tent cramping hands, x4 years. Specialty Diagnoses / Procedures Referred By Contac t Referred To Contact Neurology Diagnoses Cramping of hands Facial paralysis Near syncope Procedures CONSULT TO NEUROLOGY OFFICE/OUTPATIENT NEW HIGH MDM 60 MINUTES Aliyah Carter, SENIOR COMMUNICATIONS SPECIALIST.EDUCATION ADMINISTRATOR [address] [place] [address] Referral ID Status Reason Start Date Expiration Date V isits Requested Visits Authorized [id number] Closed PCP Requested Referral 09/21/2023 09/20/2024 1 1 Reason Comments Forms Specialty Diagnoses / Procedures Referred By Contac t Referred To Contact MR IMAGING Diagnoses Disorder of adrenal gland (HCC) Procedures MRI ADRENAL WO IVCON MRI, ABDOMEN (MRI) Damaso Jang MD [address] [place] [address] [facility] [place] [address] Referral ID Status Reason Start Date Expiration Date V isits Requested Visits Authorized [id number] Closed Auto-Generate d Referral 09/21/2023 11/20/2023 1 1 Specialty Diagnoses / Procedures Referred By Contac t Referred To Contact MR IMAGING Diagnoses Migraine with aura and without status migrainosus, not intractable FTND (full term normal delivery) Procedures MRV BRAIN WO/W IVCON MRA; HEAD W & WO CONTRAST Lashon Saba, ROSETTE-Jennifer [address] [place] [address] Mr Imaging [facility] Referral ID Status Reason Start Date Expiration Date V isits Requested Visits Authorized [id number] Closed Auto-Generate d Referral 09/24/2023 11/23/2023 1 1 Reason Comments Other Specialty Diagnoses / Procedures Referred By Contac t Referred To Contact Diagnoses Kidney stone Kidney stone [N20.0] Procedures IL LITHOTRIPSY XTRCORP SHOCK WAVE Lithotripsy Extracorporeal Shock Wave Dev Narayan MD [address] [place] [address] [facility] Or [address] [place] [phone] Referral ID Status Reason Start Date Expiration Date Visits Re quested Visits Authorized [id number] 1 1 Reason Comments Headache X today, states she took her imitrex 2 hrs ago and is still having issues Reason Comments Headache Migraine started tod ay Reason Comments Panic Attack Patient to ED via eelchair with c/o "I've been having a 48 hour panic attack"-- worse since 1000 today with chest pressure and shortness of breath. Patient reports recent stressors such as handling affairs for her mother that in March as well as financial concerns. Tearful upon arrival. Taking Rx Clonidine without relief. Denies suicidal or homicidal ideation. Reason Comments Multiple Concerns Reason Comments Adrenal Specialty Diagnoses / Procedures Referred By Dave rocha Referred To Contact Endocrinology Diagnoses Cramping of hands Facial paralysis Near syncope Adrenal nodule (HCC) Procedures CONSULT TO ENDOCRINOLOGY OFFICE/OUTPATIENT [facility] 60 MINUTES Damaso Samuels Jr., MD [address] [facility] [address] [place] [address] Referral ID Status Reason Start Date Expiration Date V isits Requested Visits Authorized [id number] Closed PCP Requested Referral 10/01/2023 09/30/2024 1 [...] Colposcopy Specialty Diagnoses / Procedures Referred By Dave rocha Referred [facility] Diagnoses Other abnormal cytological finding of specimen from cervix Procedures COLPOSCOPY COLPOSCOPY CERVIX BX CERVIX & ENDOCRV CURRETAAngela Boo, SENIOR COMMUNICATIONS SPECIALIST.EDUCATION ADMINISTRATOR [address] [place] [address] [facility] [address] [place] [address] Referral ID Status Reason Start Date Expiration Date V isits Requested Visits Authorized [id number] Closed Auto-Generate d Referral 05/26/2024 05/26/2025 1 [...] diarrhea the last week. Pt saw her stitch marker and was started on doxycycline. Denies any [...] Care Teams (unrecognized sec tion and content) Hand Shaper Relationship Specialty Start Date End Date Amaya Rasmussen, SENIOR COMMUNICATIONS SPECIALIST.EDUCATION ADMINISTRATOR, DNP [address] [place], [place] [id number] PCP - General Family Practice 03/01/20 Hand Shaper Relationship Specialty Start Date End Date Amaya Rasmussen, SENIOR COMMUNICATIONS SPECIALIST.EDUCATION ADMINISTRATOR, DNP [address] [facility] [place] [address] PCP - General Family Practice 03/01/20 Hand Shaper Relationship Specialty Start Date End Date Amaya Rasmussen, SENIOR COMMUNICATIONS SPECIALIST.EDUCATION ADMINISTRATOR, DNP [address] [facility] [place] [address] PCP - General Family Practice 03/01/20 Hand Shaper Relationship Specialty Start Date End Date Amaya Rasmussen, SENIOR COMMUNICATIONS SPECIALIST.EDUCATION ADMINISTRATOR, DNP [address] [facility] [place] [address] PCP - General Family Practice 03/01/20 Hand Shaper Relationship Specialty Start Date End Date Amaya Rasmussen, SENIOR COMMUNICATIONS SPECIALIST.JAMES, DNP [address] [facility] [place] [address] PCP - General Family Practice 03/01/20 Hand Shaper Relationship Specialty Start Date End Date Amaya Rasmussen, SENIOR COMMUNICATIONS SPECIALIST.EDUCATION ADMINISTRATOR, DNP [address] [facility] [place] [address] PCP - General Family Practice 03/01/20 Hand Shaper Relationship Specialty Start Date End Date Amaya Rasmussen, SENIOR COMMUNICATIONS SPECIALIST.JAMES, DNP [address] [facility] [place] [address] PCP - General Family Practice 03/01/20 Hand Shaper Relationship Specialty Start Date End Date Amaya Rasmussen, SENIOR COMMUNICATIONS SPECIALIST.JAMES, DNP [address] [facility] [place] [address] PCP - General Family Practice 03/01/20 Hand Shaper Relationship Specialty Start Date End Date Amaya Rasmussen, SENIOR COMMUNICATIONS SPECIALIST.JAMES, DNP [address] [facility] [place] [address] PCP - General Family Practice 03/01/20 Hand Shaper Relationship Specialty Start Date End Date Amaya Rasmussen, SENIOR COMMUNICATIONS SPECIALIST.EDUCATION ADMINISTRATOR, DNP [address] [place] [address] PCP - General Family Practice 03/01/20 Hand Shaper Relationship Specialty Start Date End Date Amaya Rasmussen, SENIOR COMMUNICATIONS SPECIALIST.EDUCATION ADMINISTRATOR, DNP [address] [place] [address] PCP - General Family Practice 03/01/20 Hand Shaper Relationship Specialty Start Date End Date Amaya Rasmussen, SENIOR COMMUNICATIONS SPECIALIST.EDUCATION ADMINISTRATOR, DNP [address] [place] [address] PCP - General Family Practice 03/01/20 Hand Shaper Relationship Specialty Start Date End Date Debby Reeves MD [address] [facility] [place] [address] PCP - General Family Practice 03/21/22 Hand Shaper Relationship Specialty Start Date End Date Debby Reeves MD [address] [facility] [place] [address] PCP - General Family Practice 03/21/22 Hand Shaper Relationship Specialty Start Date End Date Debby Reeves MD [address] [facility] [place] [address] PCP - General Family Practice 03/21/22 Hand Shaper Relationship Specialty Start Date End Date Debby Reeves MD [address] [facility] [place] [address] PCP - General Family Practice 03/21/22 Hand Shaper Relationship Specialty Start Date End Date Debby Reeves MD [address] [facility] [place] [address] PCP - General Family Practice 03/21/22 Hand Shaper Relationship Specialty Start Date End Date Debby Reeves MD [address] [facility] [place] [address] PCP - General Family Medicine 03/21/22 Hand Shaper Relationship Specialty Start Date End Date Debby Reeves MD [address] [facility] [place] [address] PCP - General Family Medicine 03/21/22 Hand Shaper Relationship Specialty Start Date End Date Debby Reeves MD [address] [facility] [place] [address] PCP - General Family Medicine 03/21/22 Hand Shaper Relationship Specialty Start Date End Date Debby Reeves MD [address] [facility] [place] [address] PCP - General Family Medicine 03/21/22 Hand Shaper Relationship Specialty Start Date End Date Debby Reeves MD [address] [facility] [place] [address] PCP - General Family Medicine 03/21/22 Hand Shaper Relationship Specialty Start Date End Date Debby Reeves MD [address] [facility] [place] [address] PCP - General Family Medicine 03/21/22 Hand Shaper Relationship Specialty Start Date End Date Debby Reeves MD [address] [facility] [place] [address] PCP - General Family Medicine 03/21/22 Hand Shaper Relationship Specialty Start Date End Date Debby Reeves MD [address] [facility] [place] [address] PCP - General Family Medicine 03/21/22 Hand Shaper Relationship Specialty Start Date End Date Debby Reeves MD [address] [facility] [place] [address] PCP - General Family Medicine 03/21/22 Hand Shaper Relationship Specialty Start Date End Date Debby Reeves MD [address] [facility] [place] [address] PCP - General Family Medicine 03/21/22 Hand Shaper Relationship Specialty Start Date End Date Debby Reeves MD [address] [facility] [place] [address] PCP - General Family Medicine 03/21/22 Hand Shaper Relationship Specialty Start Date End Date Debby Reeves MD [address] [facility] [place] [address] PCP - General Family Medicine 03/21/22 Hand Shaper Relationship Specialty Start Date End Date Debby Reeves MD [address] [facility] [place] [address] PCP - General Family Medicine 03/21/22 Hand Shaper Relationship Specialty Start Date End Date Debby Reeves MD [address] [facility] [place] [address] PCP - General Family Medicine 03/21/22 Hand Shaper Relationship Specialty Start Date End Date Debby Reeves MD [address] [facility] [place] [address] PCP - General Family Medicine 03/21/22 Team [...] Millan MD Attending Provider, Referring Provider Active Hand Shaper Relationship Specialty Start Date End Date Debby Reeves MD [address] [facility] [place] [address] PCP - General Family Medicine 03/21/22 Team Status: Inactive Member Role Status Dates Dr. Joe Reeves MD Primary Care Provider Acti ve Sulma Bartholomew CNM Attending Provider, Referring Pr ovider Active Hand Shaper Relationship Specialty Start Date End Date Debby Reeves MD [address] [facility] [place] [address] PCP - General Family Medicine 03/21/22 Hand Shaper Relationship Specialty Start Date End Date Debby Reeves MD [address] [facility] [place] [address] PCP - General Family Medicine 03/21/22 Hand Shaper Relationship Specialty Start Date End Date Debby Reeves MD [address] [facility] [place] [address] PCP - General Family Medicine 03/21/22 Team Status: Inactive Member Role Status Dates Dr. Joe Reeves MD Primary Care Provider Acti ve Dr. Carmelita Millan MD Admit Provider, Attending Provider, Referring Provider Active Hand Shaper Relationship Specialty Start Date End Date Debby Reeves MD [address] [facility] [place] [address] PCP - General Family Medicine 03/21/22 Hand Shaper Relationship Specialty Start Date End Date Debby Reeves MD [address] [facility] [place] [address] PCP - General Family Medicine 03/21/22 Hand Shaper Relationship Specialty Start Date End Date Debby Reeves MD [address] [facility] [place] [address] PCP - General Family Medicine 03/21/22 Team Status: Inactive Member Role Status Dates Dr. Joe Reeves MD Primary Care Provider, Ref erring Provider Active Dot Hensley LOAN ADMINISTRATOR, LOAN ADMINISTRATOR-C Attending Provider Active Team Status: Inactive Member Role Status Dates Dr. Joe Reeves MD Primary Care Provider Acti ve Dr. Mai Wang DO Emergency Provider Active Hand Shaper Relationship Specialty Start Date End Date Debby Reeves MD [address] [facility] [place] [address] PCP - General Family Medicine 03/21/22 Hand Shaper Relationship Specialty Start Date End Date Debby Reeves MD [address] [place] [address] PCP - General Family Medicine 03/21/22 Hand Shaper Relationship Specialty Start Date End Date Debby Reeves MD [address] [place] [address] PCP - General Family Medicine 03/21/22 Hand Shaper Relationship Specialty Start Date End Date Debby Reeves MD [address] [place] [address] PCP - General Family Medicine 03/21/22 Hand Shaper Relationship Specialty Start Date End Date Debby Reeves MD [address] [place] [address] PCP - General Family Medicine 03/21/22 Hand Shaper Relationship Specialty Start Date End Date Debby Reeves MD [address] [facility] [place] [address] PCP - General Family Medicine 03/21/22 Hand Shaper Relationship Specialty Start Date End Date Debby Reeves MD [address] [place] [address] PCP - General Family Medicine 03/21/22 Hand Shaper Relationship Specialty Start Date End Date Debby Reeves MD [address] [place] [address] PCP - General Family Medicine 03/21/22 Hand Shaper Relationship Specialty Start Date End Date Debby Reeves MD [address] [place] [address] PCP - General Family Medicine 03/21/22 Hand Shaper Relationship Specialty Start Date End Date Debby Reeves MD [address] [place] [address] PCP - General Family Medicine 03/21/22 Hand Shaper Relationship Specialty Start Date End Date Debby Reeves MD [address] [place] [address] PCP - General Family Medicine 03/21/22 Team [...] Care Provider Acti ve Dr. Mai Wang DO Attending Provider, Emergency P rovider Active Team Status: Inactive Member Role Status Dates Dr. Joe Reeves MD Primary Care Provider Acti ve Dr. Sabas Kim DO Attending Provider, Referring P rovider Active Hand Shaper Relationship Specialty Start Date End Date Debby Reeves MD [address] [place] [address] PCP - General Family Medicine 03/21/22 Hand Shaper Relationship Specialty Start Date End Date Debby Reeves MD [address] [place] [address] PCP - General Family Medicine 03/21/22 Hand Shaper Relationship Specialty Start Date End Date Debby Reeves MD [address] [facility] [place] [address] PCP - General Family Medicine 03/21/22 Hand Shaper Relationship Specialty Start Date End Date Debby Reeves MD [address] [facility] [place] [address] PCP - General Family Medicine 03/21/22 Hand Shaper Relationship Specialty Start Date End Date Debby Reeves MD [address] [place] [address] PCP - General Family Medicine 03/21/22 Hand Shaper Relationship Specialty Start Date End Date Debby Reeves MD [address] [facility] [place] [address] PCP - General Family Medicine 03/21/22 Hand Shaper Relationship Specialty Start Date End Date Debby Reeves MD [address] [facility] [place] [address] PCP - General Family Medicine 03/21/22 Hand Shaper Relationship Specialty Start Date End Date Debby Reeves MD [address] [facility] [place] [address] PCP - General Family Medicine 03/21/22 Team Status: Inactive Member Role Status Dates Dr. Joe Reeves MD Primary Care Provider Cherie Londono MD Emergency Provider Active Hand Shaper Relationship Specialty Start Date End Date Debby Reeves MD [address] [place] [address] PCP - General Family Medicine 03/21/22 Hand Shaper Relationship Specialty Start Date End Date Generic Provider, No Assigned PcpMD [address] [place] [address] PCP - General 08/26/23 Hand Shaper Relationship Specialty Start Date End Date Debby Reeves MD [address] [place] [address] PCP - General Family Medicine 03/21/22 Hand Shaper Relationship Specialty Start Date End Date Debby Reeves MD [address] [place], [place] [address] PCP - General Family Medicine 03/21/22 Hand Shaper Relationship Specialty Start Date End Date Keaton Tracy MD [address] [place] [address] PCP - General Family Medicine 09/21/23 Hand Shaper Relationship Specialty Start Date End Date Generic Provider, No Assigned MD Ebony [address] [place] [address] PCP - General 08/26/23 Hand Shaper Relationship Specialty Start Date End Date Generic Provider, No Assigned MD [address] [place] [address] PCP - General 08/26/23 Hand Shaper Relationship Specialty Start Date End Date Keaton Tracy MD [address] [place] [address] PCP - General Family Medicine 09/21/23 Hand Shaper Relationship Specialty Start Date End Date Generic Provider, No Assigned MD [address] [place] [address] PCP - General 08/26/23 Hand Shaper Relationship Specialty Start Date End Date Keaton Tracy MD [address] [place] [address] PCP - General Family Medicine 09/21/23 Hand Shaper Relationship Specialty Start Date End Date Keaton Tracy MD [address] [place] [address] PCP - General Family Medicine 09/21/23 Hand Shaper Relationship Specialty Start Date End Date Keaton Tracy MD [address] [place] [address] PCP - General Family Medicine 09/21/23 Hand Shaper Relationship Specialty Start Date End Date Keaton Tracy MD [address] [place] [address] PCP - General Family Medicine 09/21/23 Hand Shaper Relationship Specialty Start Date End Date Keaton Tracy MD [address] [place] [address] PCP - General Family Medicine 09/21/23 Hand Shaper Relationship Specialty Start Date End Date Keaton Tracy MD [address] [place] [address] PCP - General Family Medicine 09/21/23 Hand Shaper Relationship Specialty Start Date End Date Keaton Tracy MD [address] [place] [address] PCP - General Family Medicine 09/21/23 Hand Shaper Relationship Specialty Start Date End Date Keaton Tracy MD [address] [place] [address] PCP - General Family Medicine 09/21/23 Hand Shaper Relationship Specialty Start Date End Date Generic Provider, No Assigned PcpMD PCP - General 08/26/23 Hand Shaper Relationship Specialty Start Date End Date Keaton Tracy MD [address] [place] [address] PCP - General Family Medicine 09/21/23 Hand Shaper Relationship Specialty Start Date End Date Keaton Tracy MD [address] [place] [address] PCP - General Family Medicine 09/21/23 Hand Shaper Relationship Specialty Start Date End Date Keaton Tracy MD [address] [facility] [address] PCP - General Family Medicine 11/20/23 Hand Shaper Relationship Specialty Start Date End Date Keaton Tracy MD [address] [facility] [address] PCP - General Family Medicine 11/20/23 Hand Shaper Relationship Specialty Start Date End Date Keaton Tracy MD [address] [place] [address] PCP - General Family Medicine 09/21/23 Hand Shaper Relationship Specialty Start Date End Date Keaton Tracy MD [address] [place] [address] PCP - General Family Medicine 09/21/23 Hand Shaper Relationship Specialty Start Date End Date Keaton Tracy MD [address] [place] [address] PCP - General Family Medicine 09/21/23 Hand Shaper Relationship Specialty Start Date End Date Keaton Tracy MD [address] [place] [address] PCP - General Family Medicine 09/21/23 Hand Shaper Relationship Specialty Start Date End Date Keaton Tracy MD [address] [place] [address] PCP - General Family Medicine 09/21/23 Hand Shaper Relationship Specialty Start Date End Date Keaton Tracy MD [address] [place] [address] PCP - General Family Medicine 09/21/23 Hand Shaper Relationship Specialty Start Date End Date Keaton Tracy MD [address] [place] [address] PCP - General Family Medicine 09/21/23 Hand Shaper Relationship Specialty Start Date End Date Keaton Tracy MD [address] [place] [address] PCP - General Family Medicine 09/21/23 Hand Shaper Relationship Specialty Start Date End Date Keaton Tracy MD [address] [place] [address] PCP - General Family Medicine 09/21/23 Hand Shaper Relationship Specialty Start Date End Date Keaton Tracy MD [address] [place] [address] PCP - General Family Medicine 09/21/23 Hand Shaper Relationship Specialty Start Date End Date Keaton Tracy MD [address] [place] [address] PCP - General Family Medicine 09/21/23 Hand Shaper Relationship Specialty Start Date End Date Keaton Tracy MD [address] [place] [address] PCP - General Family Medicine 09/21/23 Hand Shaper Relationship Specialty Start Date End Date Keaton Tracy MD [address] [place] [address] PCP - General Family Medicine 09/21/23 Hand Shaper Relationship Specialty Start Date End Date Keaton Tracy MD [address] [place] [address] PCP - General Family Medicine 09/21/23 Hand Shaper Relationship Specialty Start Date End Date Keaton Tracy MD [address] [place] [address] PCP - General Family Medicine 09/21/23 Hand Shaper Relationship Specialty Start Date End Date Keaton Tracy MD [address] [facility] [place] [address] PCP - General Family Medicine 11/20/23 Hand Shaper Relationship Specialty Start Date End Date Keaton Tracy MD [address] [place] [address] PCP - General Family Medicine 09/21/23 Hand Shaper Relationship Specialty Start Date End Date Keaton Tracy MD [address] [place] [address] PCP - General Family Medicine 09/21/23 Hand Shaper Relationship Specialty Start Date End Date Keaton Tracy MD [address] [place] [address] PCP - General Family Medicine 09/21/23 Hand Shaper Relationship Specialty Start Date End Date Keaton Tracy MD [address] [place] [address] PCP - General Family Medicine 09/21/23 Hand Shaper Relationship Specialty Start Date End Date Keaton Tracy MD [address] [facility] [place] [address] PCP - General Family Medicine 11/20/23 Hand Shaper Relationship Specialty Start Date End Date Keaton Tracy MD [address] [place] [address] PCP - General Family Medicine 09/21/23 Hand Shaper Relationship Specialty Start Date End Date Keaton Tracy MD [address] [facility] [place] [address] PCP - General Family Medicine 11/20/23 Hand Shaper Relationship Specialty Start Date End Date Keaton Tracy MD [address] [place] [address] PCP - General Family Medicine 09/21/23 Hand Shaper Relationship Specialty Start Date End Date Keaton Tracy MD [address] [place] [address] PCP - General Family Medicine 09/21/23 Hand Shaper Relationship Specialty Start Date End Date Keaton Tracy MD [address] [place] [address] PCP - General Family Medicine 09/21/23 Hand Shaper Relationship Specialty Start Date End Date Keaton Tracy MD [address] [place] [address] PCP - General Family Medicine 09/21/23 Hand Shaper Relationship Specialty Start Date End Date Keaton Tracy MD [address] [place] [address] PCP - General Family Medicine 09/21/23 Hand Shaper Relationship Specialty Start Date End Date Keaton Tracy MD [address] [facility] [place] [address] PCP - General Family Medicine 11/20/23 Hand Shaper Relationship Specialty Start Date End Date Keaton Tracy MD [address] [facility] [address] PCP - General Family Medicine 09/21/23 Hand Shaper Relationship Specialty Start Date End Date Keaton Tracy MD [address] [place] [address] PCP - General Family Medicine 09/21/23 Hand Shaper Relationship Specialty Start Date End Date Keaton Tracy MD [address] [place] [address] PCP - General Family Medicine 09/21/23 Hand Shaper Relationship Specialty Start Date End Date Keaton Tracy MD [address] [facility] [place] [address] PCP - General Family Medicine 11/20/23 Goals [...] ider: Aliyah Encarnacion RN)2203 (Stopped - Provider: Alyiah Encarnacion RN) HYDROmorphone (Dilaudid) injection 1 mg [...] 4 mg, intravenous, Once, On 08/26/23 at 1905, For 1 dose 1927 (Given - Provid er: Aliyah Encarnacion RN) ondansetron (Zofran) injection 4 mg (COMPLETED) 4 mg, intravenous, Once, On 08/26/23 at 190, For 1 dose, When administering via IV Push, administer over 3-5 minutes. 1927 (Given - Provid er: Aliyah Encarnacion RN) phenazopyridine (Pyridium) tablet 200 mg (COMPLETED) 200 mg, oral, Once, On 08/26/23 at 2214, For 1 dose, May discolor urine (orange). 2216 (Given - Provid er: Aliyah Encarnacion RN) sodium chloride 0.9 % bolus 1,000 mL (COMPLETED) 1,000 mL, intravenous, at 1,000 mL/hr, Administer over 1 Hours, Once, On 08/26/23 at 1905, For 1 dose 1926 (New Bag - Prov ider: Aliyah Encarnacion RN)2110 (Stopped - Provider: Aliyah Encarnacion RN) PRN Medication Order 08/24/2023 08/25/2023 08/26/2023 HYDROcodone-acetaminophen ([place]) 5-325 mg per tablet 1 tablet 1 tablet, oral, Every 6 hours PRN, pain severe (7-10), first line, Starting on Sun08/26/23 at 2209, If ordered PRN for pain, nurse is permitted to administer this medication for higher pain scores based on patient preference? Yes 2219 (Given - Provid er: Aliyah Encarnacion RN - Comment: home pack dispensed per orders) Scheduled Medication Order 11/04/2023 11/05/2023 11/06/2023 acetaminophen (Tylenol) tablet 975 mg (COMPLETED) 975 mg, oral, Once, On Sun11/06/23 at 0715, For 1 dose, Preprocedure, Administer with small amount of water preoperatively., If ordered PRN for pain, nurse is permitted to administer this medication for higher pain scores based on patient preference? Yes 708 (Given - Provid er: Rossi Castro RN - Comment: preop) dexAMETHasone (PF) (Decadron) injection 8 mg (COMPLETED) 8 mg, intravenous, Once, On Sun11/06/23 at 0715, For 1 dose, Preprocedure 0723 (Given - Provid er: Rossi Castro RN) famotidine PF (Pepcid) injection 20 mg (COMPLETED) 20 mg, intravenous, Once, On Sun11/06/23 at 0715, For 1 dose, Preprocedure 0723 [...] pain scores based on patient preference? Yes 0924 (Given - Provid er: Gricelda Oneill RN) [...] dose 1951 (Given - Provid er: Beto Turk RN) Scheduled Medication Order 04/14/2024 04/15/2024 04/16/2024 [...] eloped) Scheduled Medication Order 04/13/2024 04/14/2024 04/15/2024 dcalcceq-[id number]-[id number] (Cetacaine) spray 1 spray (COMPLETED) 1 spray, [...] On Sun04/15/24 at 1515, For 1 dose 1525 (Given - Provid er: Micheline Cook RN) morphine injection 4 mg (COMPLETED) 4 mg, intravenous, Once, On Sun04/15/24 at 1645, For 1 dose 1657 (Given - Provid er: Micheline Cook RN) ondansetron (Zofran) injection 4 mg (COMPLETED) 4 mg, intravenous, Once, On Sun04/15/24 at 1515, For 1 dose, When administering via IV Push, administer over 3-5 minutes. 1523 (Given - Provid er: Micheline Cook RN) sodium chloride 0.9 % bolus 1,000 mL (COMPLETED) 1,000 mL, intravenous, at 999 mL/hr, Administer over 1 Hours, Once, On Sun04/15/24 at 1325, For 1 dose 1328 (New Bag - Prov ider: Micheline Cook [...] (New Bag - Prov ider: Beto Turk RN)2130 (Stopped - Provider: Beto Turk RN) Scheduled Medication Order 11/17/2024 11/18/2024 11/19/2024 ketorolac (Toradol) injection 15 mg (COMPLETED) 15 mg, intramuscular, Once, On Sun11/18/24 at 2220, For 1 dose 2222 (Given - Provider: Belem Pro RN) morphine injection 4 mg (COMPLETED) 4 mg, intramuscular, Once, On Sun11/18/24 at 2305, For 1 dose 2324 (Given - Provider: Alem Mcmanus RN) ondansetron ODT (Zofran-ODT) disintegrating tablet 4 mg (COMPLETED) 4 mg, oral, Once, On Sun11/18/24 at 2305, For 1 dose 2324 (Given - Provider: Alem Mcmanus, BRIT) orphenadrine (Norflex) injection 60 mg (COMPLETED) 60 mg, intramuscular, Once, On Sun11/18/24 at 2220, For 1 dose 2223 (Given - Provider: Belem Pro, BRIT) Scheduled Medication Order 02/09/2025 02/10/2025 02/11/2025 iohexol [...] BE BASED ON THE PRIMARY CLINICAL RECORDS. [employer] [facility]. provides no warranty or guarantee of the accuracy or completeness of information in this document.
[2025-06-07] MEDS: 0.9% Normal Saline (1000mL) 1,000 ML 999 ML IV (21:49)
[2025-06-07 22:47] VITALS: BP 102/72; PULSE 16; RESP 16; O2SAT 98
[2025-06-07] MEDS: HYDROcodone Bitartrate/Apap 5/325 Tablet PO (23:30)
[2025-06-07 23:32] VITALS: BP 106/64; PULSE 70; RESP 18; TEMP 36.7; O2SAT 100
== END 2025-06-07 23:33 | disposition home or self-care (01) ==
PROVIDERS: Emergency Provider Emergency Medicine; Visit Provider Emergency Medicine
DX: O99.352 Diseases of the nervous system complicating pregnancy, second trimester (principal); G89.29 Other chronic pain; M51.369 Other intervertebral disc degeneration, lumbar region without mention of lumbar back pain or lower extremity pain; G43.909 Migraine, unspecified, not intractable, without status migrainosus; R29.700 NIHSS score 0; F41.9 Anxiety disorder, unspecified; J45.909 Unspecified asthma, uncomplicated; F32.A Depression, unspecified; Z79.899 Other long term (current) drug therapy; F17.290 Nicotine dependence, other tobacco product, uncomplicated; O99.342 Other mental disorders complicating pregnancy, second trimester; O99.892 Other specified diseases and conditions complicating childbirth; O99.512 Diseases of the respiratory system complicating pregnancy, second trimester; O99.332 Smoking (tobacco) complicating pregnancy, second trimester; Z3A.18 18 weeks gestation of pregnancy
CPT/HCPCS: 96361; 96374; 99284; A4216